=== PATIENT | male | born 1940 | race Caucasian/White ===

== ENCOUNTER 2017-01-21 06:59 | Emergency (ER) | payer MEDICARE, OTHER, BC ==
[~2017-01-21] VITALS: Ht 182.9 cm; Wt 83.2 kg
[~2017-01-21 06:59] MED LIST: ALLERGY PILL; ATOR20TA PO; HYDR-3533 PO; NADO20TA PO; PILO5TAB PO; TRAZ50TA4 PO
[2017-01-21 07:08] VITALS: BP 128/92; PULSE 64; RESP 16; TEMP 97.4; O2SAT 98
[2017-01-21] MEDS ORDERED: LIDOCAINE 1%/EPINEPHrine 1:100,000 SOLN 20 ML VIAL INFIL ONE (07:15)
[2017-01-21] MEDS ORDERED: ATOR20TA15 PO (07:26)
[2017-01-21] MEDS ORDERED: LORA5TAB16 PO (07:26)
[2017-01-21] MEDS ORDERED: BLOOD THINNER PO (07:26)
[2017-01-21] MEDS ORDERED: NADO20TA PO (07:26)
[2017-01-21] MEDS ORDERED: TRAZ1TAB45 PO (07:26)
--- NOTE | 2017-01-21 07:28 | PD ---
HPI Chief Complaint: Laceration/Skin Injury Time Seen by Provider: 07:13 Travel History International Travel<30 days: No Contact w/Intl Traveler<30days: No Traveled to known affect area: No History of Present Illness HPI The patient is a 76-year-old male who presents emergency department for laceration to the left elbow. The patient fell earlier this morning in the kitchen, striking his left elbow on a case of water. The patient states he received a laceration against one of water bottles. Laceration bled initially but is currently stopped. He denies any difficulty with movement of the left upper extremity. He denies any other injuries including head trauma, neck pain , chest wall pain, or abdominal pain. The patient is right-hand dominant. The patient's last tetanus shot was administered at the [facility] several months ago according to the patient. The patient denies any other complaints. The patient denies any weakness, numbness, or tingling of the left upper extremity. Symptoms are mild, exacerbated after falling against water bottles, and alleviated after applying pressure. PFSH Past Medical History Hx Anticoagulant Therapy: Yes Arthritis: No Heart Rhythm Problems: No Cancer: Yes (bladder ca) Cardiovascular Problems: Yes (Arrhythmia ) High Cholesterol: Yes Chemotherapy: Yes Chest Pain: No Congestive Heart Failure: No Diminished Hearing: No Endocrine: No Gastrointestinal Disorders: No Genitourinary: Yes (bladder cancer) Hypertension: No Immune Disorder: No Implanted Vascular Access Dvce: Yes Neurologic: No Psychiatric: No Respiratory: No Radiation Therapy: Yes (46 treatments) Seizures: No Tetanus Vaccination: < 5 Years Influenza Vaccination: Yes Past Surgical History Abdominal Surgery: No Cardiac Surgery: No Ear Surgery: No Endocrine Surgery: Yes (Parotid Mass) Eye Surgery: No Genitourinary Surgery: Yes (bbladder cancer) Gynecologic Surgery: No Neurologic Surgery: No Oral Surgery: No Thoracic Surgery: No Other Surgery: Yes Social History Alcohol Use: Yes (BEER DAILY) Tobacco Use: No Substance Use: No Allergies-Medications (Allergen,Severity, Reaction): Coded Allergies: Crab (Verified Allergy, Intermediate, Rash, 01/21/17) Blue Shell crab causes severe rash all over face and neck. Needs PCN to help clear it up. Patient CAN eat Shrimp and clams, scallops, oysters without problems. Reported Meds & Prescriptions Reported Meds & Active Scripts Active Reported Pilocarpine 5 Mg Tab 5 Mg PO DAILY Warfarin 1 Mg Tab 1 Mg PO DAILY Hm Loratadine (Loratadine) 10 Mg Tab 1 Tab PO DAILY Trazodone HCl 150 Mg Tablet 50 Mg PO HS Nadolol 20 Mg Tab 20 Mg PO DAILY Atorvastatin (Atorvastatin Calcium) 20 Mg Tab 20 Mg PO HS Review of Systems Except as stated in HPI: all other systems reviewed are Neg HENT: No: Headaches, Neck Pain Cardiovascular: No: Chest Pain or Discomfort Respiratory: No: Shortness of Breath Gastrointestinal: No: Abdominal Pain Musculoskeletal: No: Limited ROM, Weakness, Pain Skin: Positive Other (as noted in the history of present illness) Neurologic: No: Paresthesia, Sensory Disturbance Physical Exam Narrative GENERAL: Awake, alert, very pleasant 76-year-old male who appears his stated age and is in no acute respiratory distress. SKIN: Focused skin assessment warm/dry. 7 cm laceration in a semicircular fashion of the extensor surface left elbow with soft tissue involvement, but no muscle involvement or joint involvement. HEAD: Atraumatic. Normocephalic. EYES: No injection or drainage. ENT: No nasal bleeding or discharge. Mucous membranes pink and moist. NECK: Trachea midline. No JVD. MUSCULOSKELETAL: 7 cm semicircular laceration of the extensor surface the left elbow. No visible joint involvement. Patient has able to fully flex and extend left elbow, supinate and pronate left forearm, and flex extend left elbow. Positive left radial pulse. NEUROLOGICAL: Awake and alert. No obvious cranial nerve deficits. Motor grossly within normal limits. Normal speech. Sensation is intact in the median , radial, and ulnar distribution of the left upper extremity. PSYCHIATRIC: Appropriate mood and affect; insight and judgment normal. Data Data Last Documented VS Vital Signs Date Time Temp Pulse Resp B/P Pulse Ox O2 Delivery O2 Flow Rate FiO2 01/21/17 07:08 97.4 64 16 128/92 98 Orders Lidocai-Epi 1%-1:100,000 Inj (Xylocaine- (01/21/17 07:15) MDM Medical Decision Making Medical Screen Exam Complete: Yes Emergency Medical Condition: Yes Medical Record Reviewed: Yes Differential Diagnosis Differential diagnosis includes laceration, hematoma, contusion, skin tear, fracture, tendon laceration, vascular injury, nerve injury. Narrative Course The patient's physical examination reveals a laceration with no visible neurovascular injury. The patient is able fully flex and extend the left elbow as well as supinate and pronate the left forearm. The patient's tetanus shot is up-to-date according to the patient. The laceration was draped and prepped in a normal sterile fashion, anesthetized 1% lidocaine with epinephrine using a 27-gauge needle, irrigated with sterile saline, and closed in single layer fashion. The patient is advised that the sutures removed in 10-14 days and monitor for signs of infection. Procedures Procedure Narrative LACERATION LOCATION: Left elbow LENGTH: 7 cm NUMBER OF STITCHES/POLY: 10 REPAIR: The area of the laceration was prepped with Betadine and sterilely draped. The laceration was infiltrated with 1% lidocaine with epinephrine. The wound was copiously irrigated and explored without evidence of foreign body , tendon injury or neurovascular injury. The wound was closed using 4-0 nylon. This was a single layer repair. A sterile dressing was applied. The patient was advised to keep the dressing clean and dry. Patient tolerated the procedure well. Diagnosis Primary Impression: Laceration of left elbow Qualified Code: S51.012A - Laceration of left elbow, initial encounter Patient Instructions: General Instructions Additional Instructions: Wound care instructions. Suture removal in 10-14 days. Polysporin twice a day. Monitor for signs of infection. Return if symptoms worsen or progress. Med/Other Pt SpecificInfo: No Change to Meds Disposition: 01 DISCHARGE HOME Condition: Stable Say Mcnamara MD January 21, 2017 07:28 Say Mcnamara MD January 21, 2017 07:28
[2017-01-21] MEDS ORDERED: PILO5TAB3 PO (07:29)
[2017-01-21] MEDS ORDERED: WARF4TAB52 PO (07:29)
== END 2017-01-21 07:58 | disposition home or self-care (01) ==
LOC: EEVIPCON 06:59 → PHED 06:59
DX: S51.012A Laceration without foreign body of left elbow, initial encounter (principal); E78.00 Pure hypercholesterolemia, unspecified; Z79.01 Long term (current) use of anticoagulants; Z79.899 Other long term (current) drug therapy; Z85.51 Personal history of malignant neoplasm of bladder; W18.00XA Striking against unspecified object with subsequent fall, initial encounter
CPT/HCPCS: 12002

== ENCOUNTER 2017-02-04 06:38 | Emergency (ER) | payer MEDICARE, OTHER ==
[~2017-02-04] VITALS: Ht 182.9 cm; Wt 82.6 kg
[~2017-02-04 06:38] MED LIST changes: -ALLERGY PILL; -ATOR20TA PO; +ATOR20TA15 PO; -HYDR-3533 PO; +LORA5TAB16 PO; -PILO5TAB PO; +PILO5TAB3 PO; +TRAZ1TAB45 PO; -TRAZ50TA4 PO; +WARF4TAB52 PO
[2017-02-04 06:46] VITALS: BP 115/81; PULSE 65; RESP 14; TEMP 97.5; O2SAT 96
[2017-02-04] MEDS ORDERED: CEPH-460 PO (07:00)
--- NOTE | 2017-02-04 07:00 | PD ---
HPI Chief Complaint: Wound/Suture/Staple Re-Check Time Seen by Provider: 06:56 Travel History International Travel<30 days: No Contact w/Intl Traveler<30days: No Traveled to known affect area: No History of Present Illness HPI Patient is a 76-year-old male who comes in to have his stitches removed. He was here January 21 and had stitches placed in his left elbow after he fell and hit his elbow into a water bottle. He has had no issues he says since the injury. He denies any pain to the area. He denies any fever or chills. He has not noticed leakage of fluids from the area. PFSH Past Medical History Hx Anticoagulant Therapy: Yes Arthritis: No Heart Rhythm Problems: No Cancer: Yes (bladder ca) Cardiovascular Problems: Yes (Arrhythmia ) High Cholesterol: Yes Chemotherapy: Yes Chest Pain: No Congestive Heart Failure: No Diminished Hearing: No Endocrine: No Gastrointestinal Disorders: No Genitourinary: Yes (bladder cancer) Hypertension: No Immune Disorder: No Implanted Vascular Access Dvce: Yes Neurologic: No Psychiatric: No Respiratory: No Radiation Therapy: Yes (46 treatments) Seizures: No Past Surgical History Abdominal Surgery: No Cardiac Surgery: No Ear Surgery: No Endocrine Surgery: Yes (Parotid Mass) Eye Surgery: No Genitourinary Surgery: Yes (bbladder cancer) Gynecologic Surgery: No Neurologic Surgery: No Oral Surgery: No Thoracic Surgery: No Other Surgery: Yes Social History Alcohol Use: Yes (BEER DAILY) Tobacco Use: No Substance Use: No Allergies-Medications (Allergen,Severity, Reaction): Coded Allergies: Crab (Verified Allergy, Intermediate, Rash, 01/21/17) Blue Shell crab causes severe rash all over face and neck. Needs PCN to help clear it up. Patient CAN eat Shrimp and clams, scallops, oysters without problems. Reported Meds & Prescriptions Reported Meds & Active Scripts Active Reported Pilocarpine 5 Mg Tab 5 Mg PO DAILY Warfarin 1 Mg Tab 1 Mg PO DAILY Hm Loratadine (Loratadine) 10 Mg Tab 1 Tab PO DAILY Trazodone HCl 150 Mg Tablet 50 Mg PO HS Nadolol 20 Mg Tab 20 Mg PO DAILY Atorvastatin (Atorvastatin Calcium) 20 Mg Tab 20 Mg PO HS Review of Systems General / Constitutional: No: Fever, Chills HENT: No: Headaches Cardiovascular: No: Chest Pain or Discomfort Respiratory: No: Shortness of Breath Gastrointestinal: No: Nausea, Vomiting Musculoskeletal: No: Edema, Pain Skin: No Rash, No Change in Pigmentation Neurologic: No: Weakness, Dizziness Physical Exam Narrative GENERAL: Awake and alert, in no acute distress. SKIN: Focused skin assessment warm/dry. Wound to the lateral side of the left elbow is slightly erythematous. Sutures are in place. There is some yellow drainage. There is no fluctuance. Wound is closed. HEAD: Atraumatic. Normocephalic. EYES: Pupils equal and round. No scleral icterus. No injection or drainage. ENT: No nasal bleeding or discharge. Mucous membranes pink and moist. CARDIOVASCULAR: Regular rate and rhythm. No murmur appreciated. RESPIRATORY: No accessory muscle use. Clear to auscultation. Breath sounds equal bilaterally. MUSCULOSKELETAL: No obvious deformities. No clubbing. No cyanosis. No edema. No pain on palpation of the left elbow. No pain with movement of the left elbow. NEUROLOGICAL: Awake and alert. No obvious cranial nerve deficits. Motor grossly within normal limits. Normal speech. Data Data Last Documented VS Vital Signs Date Time Temp Pulse Resp B/P Pulse Ox O2 Delivery O2 Flow Rate FiO2 02/04/17 06:46 97.5 65 14 115/81 96 MDM Medical Decision Making Medical Screen Exam Complete: Yes Emergency Medical Condition: Yes Medical Record Reviewed: Yes Differential Diagnosis Suture removal versus cellulitis versus abscess Narrative Course Patient is a 76-year-old male who comes in to have his sutures removed. Exam shows some erythema around the wound with some yellow drainage. There is no tenderness to palpation of the elbow, and no pain with movement of the elbow. Sutures removed without incident. Triple antibiotic ointment and clean and bandage applied to the wound. Patient given prescription for Keflex. Advised to clean the wound daily with soap and water. Advised to keep it bandaged for the next few days. Advised follow-up with his primary care doctor. Advised to return to the ED as needed for any worsening symptoms. Diagnosis Primary Impression: Visit for suture removal Additional Impression: Cellulitis Qualified Code: L03.114 - Cellulitis of left upper extremity Patient Instructions: Cellulitis (ED), General Instructions Additional Instructions: Keep your wound clean and dry. Wash it daily with soap and water. Apply triple antibiotic ointment to the wound and keep it bandaged. Take all of your antibiotics. Follow up with your doctor. Return to the ED as needed for any worsening symptoms. Scripts Cephalexin (Keflex)500 Mg Oru173 Mg PO Q6H 7 Days Ref 0 Prov:Kelly Roy MD 02/04/17 Disposition: 01 DISCHARGE HOME Condition: Stable Kelly Roy MD Feb 04, 2017 07:00
== END 2017-02-04 07:15 | disposition home or self-care (01) ==
LOC: PHED 06:38
DX: Z48.02 Encounter for removal of sutures (principal); L03.114 Cellulitis of left upper limb; E78.00 Pure hypercholesterolemia, unspecified
CPT/HCPCS: 99283

== ENCOUNTER 2017-08-16 12:08 | Inpatient (IN) | payer MEDICARE, BC ==
[~2017-08-16] VITALS: Ht 180.3 cm; Wt 72.9 kg
[2017-08-16] VITALS (16 sets, daily range): BP systolic 73–133; BP diastolic 53–78; PULSE 72–88; RESP 11–28; TEMP 97.2–97.6; O2SAT 90–99
[~2017-08-16 12:08] MED LIST changes: +CEPH-460 PO; +LORA10TA7 PO; -LORA5TAB16 PO; +TRAZ1TAB14 PO; -TRAZ1TAB45 PO; +VANCOMYCIN 1,000 MG/NS 250 ML IV ONE
[2017-08-16] MEDS ORDERED: SODIUM CHLORID 0.9% 500 ML INJ 500 ML IV ONE ×2 (12:15→17:30)
--- NOTE | 2017-08-16 12:17 | PD ---
HPI Chief Complaint: fall Time Seen by Provider: 12:10 Travel History International Travel<30 days: No Contact w/Intl Traveler<30days: No History of Present Illness HPI 77-year-old male fell out of his chair and could not get up. His neighbor checked on him today after he had 2 days worth of newspapers in his driveway. When the neighbor found him she called the ambulance. The patient states he was weak and could not get up. He lives at home by himself. He denies any pain or other symptoms other than generalized weakness. History is limited from patient and supplemented by the ambulance team [facility] Past Medical History Narrative Medical By records Hx Anticoagulant Therapy: Yes Arthritis: No Heart Rhythm Problems: No Cancer: Yes (bladder ca) Cardiovascular Problems: Yes (Arrhythmia ) High Cholesterol: Yes Chemotherapy: Yes Chest Pain: No Congestive Heart Failure: No Diminished Hearing: No Endocrine: No Gastrointestinal Disorders: No Genitourinary: Yes (bladder cancer) Hypertension: No Immune Disorder: No Implanted Vascular Access Dvce: Yes Neurologic: No Psychiatric: No Respiratory: No Radiation Therapy: Yes (46 treatments) Seizures: No Past Surgical History Narrative Surgical By records Abdominal Surgery: No Cardiac Surgery: No Ear Surgery: No Endocrine Surgery: Yes (Parotid Mass) Eye Surgery: No Genitourinary Surgery: Yes (bbladder cancer) Gynecologic Surgery: No Neurologic Surgery: No Oral Surgery: No Thoracic Surgery: No Other Surgery: Yes Social History Alcohol Use: Yes (BEER DAILY) Tobacco Use: No Substance Use: No Allergies-Medications (Allergen,Severity, Reaction): Coded Allergies: crab (Unverified Allergy, Intermediate, Rash, 08/16/17) Blue Shell crab causes severe rash all over face and neck. Needs PCN to help clear it up. Patient CAN eat Shrimp and clams, scallops, oysters without problems. Reported Meds & Prescriptions Reported Meds & Active Scripts Active Reported Warfarin 3 Mg Tab 3 Mg PO DAILY Pilocarpine 5 Mg Tab 5 Mg PO DAILY Hm Loratadine (Loratadine) 10 Mg Tab 1 Tab PO DAILY Trazodone (Trazodone HCl) 150 Mg Tablet 50 Mg PO HS Nadolol 20 Mg Tab 20 Mg PO DAILY Atorvastatin (Atorvastatin Calcium) 20 Mg Tab 20 Mg PO HS Review of Systems ROS Limitations: Poor Historian Except as stated in HPI: all other systems reviewed are Neg Physical Exam Exam Limitations: Poor Historian Narrative GENERAL: Well-nourished, well-developed patient. SKIN: Warm and dry. HEAD: Normocephalic and atraumatic. EYES: No injection or drainage. ENT: No nasal drainage noted. Dry mucous membranes NECK: Supple, trachea midline. CARDIOVASCULAR:irregular rate and rhythm RESPIRATORY: Breath sounds equal bilaterally at apices. No accessory muscle use. GASTROINTESTINAL: Abdomen soft, non-tender, nondistended. BACK: Nontender without obvious deformity. NEUROLOGICAL: Awake. Generalized weakness throughout all 4 extremities without focal motor deficit. Normal speech. Data Data Last Documented VS Vital Signs Date Time Temp Pulse Resp B/P (MAP) Pulse Ox O2 Delivery O2 Flow Rate FiO2 08/16/17 13:35 16 96 Room Air 08/16/17 13:35 86 08/16/17 13:30 21 08/16/17 12:13 103/78 (86) Orders Orders Magnesium (Mg) (08/16/17 12:10) Phosphorus (Po4) (08/16/17 12:10) Complete Blood Count With Diff (08/16/17 12:10) Comprehensive Metabolic Panel (08/16/17 12:10) Creatine Kinase (Cpk) (08/16/17 12:10) Ckmb (Isoenzyme) Profile (08/16/17 12:10) Troponin I (08/16/17 12:10) Urinalysis - C+S If Indicated (08/16/17 12:10) Act Partial Throm Time (Ptt) (08/16/17 12:10) Prothrombin Time / Inr (Pt) (08/16/17 12:10) Ct Brain W/O Iv Contrast(Rout) (08/16/17 ) Chest, Single Ap (08/16/17 ) Electrocardiogram (08/16/17 ) Iv Access Insert/Monitor (08/16/17 12:10) Ecg Monitoring (08/16/17 12:10) Oximetry (08/16/17 12:10) Pelvis, Ap Only (Routine) (08/16/17 ) Sodium Chlorid 0.9% 500 Ml Inj (Ns 500 M (08/16/17 12:15) Resp Lab Draw Arterial Punctur (08/16/17 ) CKMB (08/16/17 13:26) CKMB% (08/16/17 13:26) Resp Lab Draw Arterial Punctur (08/16/17 13:15) Sodium Chlor 0.9% 1000 Ml Inj (Ns 1000 M (08/16/17 14:15) Phytonadione Inj (Vitamin K Inj) (08/16/17 14:30) Blood Culture (08/16/17 14:26) Lactic Acid (08/16/17 14:26) Piperacil-Tazo 4.5 Gm Premix (Zosyn 4.5 (08/16/17 14:26) Admit Order (Ed Use Only) (08/16/17 14:28) Labs Laboratory Tests Test 08/16/17 13:26 White Blood Count 25.4 TH/MM3 Red Blood Count 3.63 MIL/MM3 Hemoglobin 10.9 GM/DL Hematocrit 32.4 % Mean Corpuscular Volume 89.3 FL Mean Corpuscular Hemoglobin 29.9 PG Mean Corpuscular Hemoglobin Concent 33.5 % Red Cell Distribution Width 14.3 % Platelet Count 183 TH/MM3 Mean Platelet Volume 8.8 FL Neutrophils (%) (Auto) 93.6 % Lymphocytes (%) (Auto) 2.5 % Monocytes (%) (Auto) 2.8 % Eosinophils (%) (Auto) 1.0 % Basophils (%) (Auto) 0.1 % Neutrophils # (Auto) 23.8 TH/MM3 Lymphocytes # (Auto) 0.6 TH/MM3 Monocytes # (Auto) 0.7 TH/MM3 Eosinophils # (Auto) 0.3 TH/MM3 Basophils # (Auto) 0.0 TH/MM3 CBC Comment DIFF FINAL Differential Comment Prothrombin Time GREATER THAN 180.0 SEC Prothromb Time International Ratio GREATER THAN 14.5 RATIO Activated Partial Thromboplast Time 89.6 SEC Blood Urea Nitrogen 149 MG/DL Creatinine 6.30 MG/DL Random Glucose 86 MG/DL Total Protein 7.0 GM/DL Albumin 2.1 GM/DL Calcium Level 8.8 MG/DL Phosphorus Level 4.2 MG/DL Magnesium Level 2.4 MG/DL Alkaline Phosphatase 139 U/L Aspartate Amino Transf (AST/SGOT) 68 U/L Alanine Aminotransferase (ALT/SGPT) 70 U/L Total Bilirubin 0.9 MG/DL Sodium Level 144 MEQ/L Potassium Level 4.7 MEQ/L Chloride Level 113 MEQ/L Carbon Dioxide Level 14.0 MEQ/L Anion Gap 17 MEQ/L Estimat Glomerular Filtration Rate 9 ML/MIN Total Creatine Kinase 281 U/L Creatine Kinase MB 5.3 NG/ML Troponin I 0.07 NG/ML [facility] Medical Decision Making Medical Screen Exam Complete: Yes Emergency Medical Condition: Yes Medical Record Reviewed: Yes (past history confirmed) Interpretation(s) CBC & BMP Diagram 08/16/17 13:26 Total Protein 7.0, Albumin 2.1 L, Calcium Level 8.8, Phosphorus Level 4.2, Magnesium Level 2.4, Alkaline Phosphatase 139 H, Aspartate Amino Transf (AST/ SGOT) 68 H, Alanine Aminotransferase (ALT/SGPT) 70, Total Bilirubin 0.9 Last 24 hours Impressions Pelvis X-Ray 08/16/17 0000 Signed Impressions: Service Date/Time: Wednesday, August 16, 2017 13:15 - CONCLUSION: No acute abnormality. Juan aPblo Coleman Jr., MD Head CT 08/16/17 0000 Signed Impressions: Service Date/Time: Wednesday, August 16, 2017 12:18 - CONCLUSION: 1. No acute intracranial abnormality. 2. 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 3. Atrophy and chronic lacunar infarctions. Juan Pablo Coleman Jr., MD Chest X-Ray 08/16/17 0000 Signed Impressions: Service Date/Time: Wednesday, August 16, 2017 13:15 - CONCLUSION: 1. Vague area of nodularity projecting over the first rib on the left. A new finding from the prior study. I cannot exclude a parenchymal nodule. Consider a followup outpatient CT of the thorax. 2. Otherwise, no acute cardiopulmonary disease. Juan Pablo Coleman Jr., MD Differential Diagnosis Rhabdomyolysis, UTI, renal failure, intercranial bleed.... Narrative Course Will check blood work, urinalysis, trauma imaging and dose with IV fluids and follow Workup reveals leukocytosis, supratherapeutic INR, acute renal failure with depressed bicarbonate and normal potassium. He also has a very mild troponin which is likely related to his acute renal failure. He has no chest pain currently. Given this and his supratherapeutic INR aspirin is not indicated. For leukocytosis patient will be given broad-spectrum coverage while awaiting results and lactate and blood culture will be added on. For acute renal failure this was discussed with nephrology and he was given IV fluid hydration as this is likely related to dehydration. Bicarbonate will be added to his fluids. For supratherapeutic INR patient has no active bleeding. At this time he'll be given vitamin K and his Coumadin will be held Patient updated, vitals are improving. He agrees to admission, denies new complaints Critical Care Narrative Aggregate critical care time was 35 minutes. Time to perform other separately billable procedures was not included in the critical care time. My time did not include minutes spent treating any other patients simultaneously or on activities that did not directly contribute to the patient's treatment. The services I provided to this patient were to treat and/or prevent clinically significant deterioration that could result in: Septic shock, bleeding, I provided critical care services requiring my management, as noted below: Chart data review, documentation time, medication orders and management, vital sign assessments/reviewing monitor data, ordering and reviewing lab tests, ordering and interpreting/reviewing x-rays and diagnostic studies, care of the patient and discussion of the patient with the admitting physicians. Physician Communication Physician Communication dr nolen agrees to admit dr lyle states to place patient on 08/30 ns with 75meq of bicarb for ivf, only consult if doesn't improve dr nolen updated about orders adjusted Diagnosis Primary Impression: Acute renal failure Qualified Codes: N17.9 - Acute kidney failure, unspecified Additional Impressions: Leukocytosis Qualified Codes: D72.829 - Elevated white blood cell count, unspecified Supratherapeutic INR Admitting Information Admitting Physician Requests: Admit Casandra Alvarado MD Aug 16, 2017 12:17
[2017-08-16] MEDS ORDERED: WARF-58 PO (12:25)
--- NOTE | 2017-08-16 12:44 | RADRPT ---
EXAM DATE/TIME: 08/16/2017 12:18 [facility] COMPARISON: CT BRAIN W/O CONTRAST, August 21, 2012, 6:00. INDICATIONS : Chair broke while patient was sitting in it two days ago and he was found today still in it. RADIATION DOSE: 55.06 CTDIvol (mGy) MEDICAL HISTORY : Bladder cancer. Anticoagulant therapy. SURGICAL HISTORY : None. ENCOUNTER: Initial ACUITY: 2 days PAIN SCALE: 4/10 LOCATION: cranial TECHNIQUE: Multiple contiguous axial images were obtained of the head. Using automated exposure control and adj ustment of the mA and/or kV according to patient size, radiation dose was kept as low as reasonably a chievable to obtain optimal diagnostic quality images. DICOM format image data is available electro nically for review and comparison. FINDINGS: CEREBRUM: A small area of encephalomalacia involving the posterior watershed region on the right. Atrophy. Smal l chronic lacunar infarctions involving the thalami bilaterally. The ventricles are normal for age. No evidence of midline shift, mass lesion, hemorrhage or acute infarction. No extra-axial fluid dodie ections are seen. POSTERIOR FOSSA: The cerebellum and brainstem are intact. The 4th ventricle is midline. The cerebellopontine angle i s unremarkable. EXTRACRANIAL: The visualized portion of the orbits is intact. SKULL: The calvaria is intact. No evidence of skull fracture. CONCLUSION: 1. No acute intracranial abnormality. 2. 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 3. Atrophy and chronic lacunar infarctions. Juan Pablo Coleman Jr., MD on August 16, 2017 at 12:40 Board Certified Radiologist. This report was verified electronically.
[2017-08-16 13:30] LABS: AUTOMATED NEUTROPHIL # 23.8 TH/MM3 (1.8-7.7); BASOPHIL % 0.1 % (0.0-2.0); EOSINOPHIL # 0.3 TH/MM3 (0-0.4); HEMATOCRIT 32.4 % (39.0-51.0); HEMOGLOBIN 10.9 GM/DL (13.0-17.0); LYMPH % 2.5 % (9.0-44.0); LYMPHOCYTE # 0.6 TH/MM3 (1.0-4.8); MEAN CELL VOLUME 89.3 FL (80.0-100.0); MEAN CORPUSCULAR HEMOGLOBIN 29.9 PG (27.0-34.0); MEAN CORPUSCULAR HGB CONC 33.5 % (32.0-36.0); MEAN PLATELET VOLUME 8.8 FL (7.0-11.0); MONO % 2.8 % (0.0-8.0); MONOCYTE # 0.7 TH/MM3 (0-0.9); NEUT % 93.6 % (16.0-70.0); PLATELET COUNT 183 TH/MM3 (150-450); RED BLOOD COUNT 3.63 MIL/MM3 (4.50-5.90); RED CELL DISTRIBUTION WIDTH 14.3 % (11.6-17.2); WHITE BLOOD COUNT 25.4 TH/MM3 (4.0-11.0)
--- NOTE | 2017-08-16 13:45 | RADRPT ---
EXAM DATE/TIME: 08/16/2017 13:15 [facility] COMPARISON: CHEST SINGLE AP, December 20, 2014, 8:36. INDICATIONS : Evaluate lung status. Patient fell 2 days ago. MEDICAL HISTORY : Bladder cancer. Anticoagulant therapy. SURGICAL HISTORY : None. ENCOUNTER: Initial ACUITY: 2 days PAIN SCORE: 2/10 LOCATION: Bilateral chest FINDINGS: A single portable chest shows the heart to be at the upper limits of normal in terms of size. The aor ta is somewhat tortuous. There is a vague nodular density projecting over the anterior portion of the first rib. His is a new finding from the prior study. Remaining lungs are clear. No effusions. Degen erative spine noted. CONCLUSION: 1. Vague area of nodularity projecting over the first rib on the left. A new finding from the prior s tudy. I cannot exclude a parenchymal nodule. Consider a followup outpatient CT of the thorax. 2. Otherwise, no acute cardiopulmonary disease. Juan Pablo Coleman Jr., MD on August 16, 2017 at 13:39 Board Certified Radiologist. This report was verified electronically.
[2017-08-16 13:53] LABS: CHLORIDE 113 MEQ/L (98-107); SODIUM (NA) 144 MEQ/L (136-145)
[2017-08-16 13:56] LABS: CALCIUM 8.8 MG/DL (8.5-10.1)
[2017-08-16 13:57] LABS: ALBUMIN 2.1 GM/DL (3.4-5.0); BLOOD UREA NITROGEN 149 MG/DL (7-18); GLUCOSE,RANDOM 86 MG/DL (74-106); MAGNESIUM 2.4 MG/DL (1.5-2.5)
--- NOTE | 2017-08-16 13:59 | EKG ---
Date Performed: 08/16/2017 Time Performed: 12:51:32 PTAGE: 77 years EKG: ATRIAL FIBRILLATION ABNORMAL RHYTHM ECG Compared to prior electrocardiogram, atrial fibrill ation is now present PREVIOUS TRACING : 12/20/2014 08.15 DOCTOR: Luis Carlos Ervin Interpretating Date/Time 08/16/2017 13:58:00
[2017-08-16 14:00] LABS: ALT (GPT) 70 U/L (12-78); AST (GOT) 68 U/L (15-37); GLOMERULAR FILTRATION RATE 9 ML/MIN (>89); PHOSPHORUS 4.2 MG/DL (2.5-4.9)
[2017-08-16 14:01] LABS: TOTAL BILIRUBIN ADULT 0.9 MG/DL (0.2-1.0)
[2017-08-16 14:03] LABS: ALKALINE PHOSPHATASE 139 U/L (45-117)
[2017-08-16 14:05] LABS: TROPONIN I 0.07 NG/ML (0.02-0.05)
--- NOTE | 2017-08-16 14:06 | RADRPT ---
EXAM DATE/TIME: 08/16/2017 13:15 [place] COMPARISON: No previous studies available for comparison. INDICATIONS : Pelvic pain. Patient fell 2 days ago. MEDICAL HISTORY : Bladder cancer. Anticoagulant therapy. SURGICAL HISTORY : None. ENCOUNTER: Initial ACUITY: 2 days PAIN SCORE: 3/10 LOCATION: Pelvis. FINDINGS: 2 frontal views view of the pelvis demonstrate no evidence of fracture. The bony pelvic ring is inta ct. Bony mineralization is normal. The soft tissues are intact. Multiple surgical clips throughout the pelvis. CONCLUSION: No acute abnormality. Juan Pablo Coleman Jr., MD on August 16, 2017 at 14:03 Board Certified Radiologist. This report was verified electronically.
[2017-08-16 14:10] LABS: INTERNATIONAL NORMALIZED RATIO GREATER THAN 14.5 RATIO; PROTHROMBIN TIME - PATIENT GREATER THAN 180.0 SEC (9.8-11.6)
[2017-08-16] MEDS ORDERED: SODIUM CHLOR 0.9% 1000 ML INJ 1,000 ML IV ONE (14:15)
[2017-08-16] MEDS ORDERED: PIPERACIL-TAZO 4.5 GM PREMIX 100 ML IV STA (14:26)
[2017-08-16] MEDS ORDERED: SENNOSIDES 8.6 MG TAB PO PRN (14:30)
[2017-08-16] MEDS ORDERED: HEPARIN SODIUM - SQ 10,000 UNITS/ML VIAL SQ SCH (14:30)
[2017-08-16] MEDS ORDERED: NALOXONE HCL 0.4 MG/ML AMP IV PUSH PRN (14:30)
[2017-08-16] MEDS ORDERED: PHYTONADIONE INJ 10 MG in SODIUM CHLORIDE 0.9% INJ 50 ML IV ONE ×2 (14:30→22:45)
[2017-08-16] MEDS ORDERED: SODIUM CHLORIDE 0.9% FLUSH 10 ML FLUSH IV FLUSH PRN (14:30)
[2017-08-16] MEDS ORDERED: ACETAMINOPHEN 325 MG TAB PO PRN (14:30)
[2017-08-16] MEDS ORDERED: LACTULOSE SYRUP 20 GM/30 ML CUP PO PRN (14:30)
[2017-08-16] MEDS ORDERED: MAGNESIUM HYDROXIDE SUSP 30 ML CUP PO PRN (14:30)
[2017-08-16] MEDS ORDERED: BISACODYL 10 MG SUPP RECTAL PRN (14:30)
[2017-08-16] MEDS ORDERED: ONDANSETRON HCL 4 MG/2 ML VIAL IVP PRN (14:30)
[2017-08-16] MEDS ORDERED: SODIUM BICARBONATE 8.4% INJ 75 MEQ in SODIUM CHLOR 0.45% 1000 ML INJ 1,000 ML IV SCH (15:30)
[2017-08-16] MEDS ORDERED: PHYTONADIONE 5 MG TAB PO ONE (15:30)
[2017-08-16] MEDS: SODIUM BICARBONATE 8.4% INJ 75 MEQ in SODIUM CHLOR 0.9% 1000 ML INJ 1,000 ML IV SCH (16:10)
[2017-08-16 17:46] LABS: BLOOD, URINE LARGE (NEG); GLUCOSE,URINE NEG (NEG); KETONE, URINE NEG (NEG); NITRITE,URINE NEG (NEG); PH, URINE 8.5 (5.0-8.5); URINE LEUKOCYTE ESTERASE LARGE (NEG)
--- NOTE | 2017-08-16 17:48 | HHI.HP ---
[facility] Admission Diagnosis acute renal failure, leukocytosis, supratherapeutic INR Diagnoses: (1) Acute renal failure superimposed on stage 4 chronic kidney disease Diagnosis: Principal (2) Metabolic acidosis Diagnosis: Principal (3) Leukocytosis Diagnosis: Principal (4) Supratherapeutic INR Diagnosis: Principal (5) Fall at home Diagnosis: Principal (6) Generalized weakness Diagnosis: Principal Travel History International Travel<30 Days: No Contact w/Intl Traveler <30 Da: No Traveled to Known Affected Are: No Sepsis Criteria SIRS Criteria (2 or more): WBC > 65481, < 4000 or > 10% bands History of Present Illness 77 year-old male with known history of atrial fibrillation, hyperlipidemia, history of liver cancer, history of parotid cancer who presented to hospital by [facility] because of fall at home. According to the patient patient tipped over in his chair at home 2 days ago and had severe weakness where he could not get himself up. He was unable to get to the phone in order to call anyone for help people he was likely that a neighbor came by after approximately 2 days in found him laying on the floor. [facility] was called and the patient was brought to the ER for evaluation. At that time patient was found to have severe dehydration. Acute renal failure, Possible underlying rhabdomyolysis. Patient was given IV fluids with clinical improvement per nursing staff. Patient does go to Dr. Gaona on a regular basis. Case was discussed with him and patient will be admitted for further evaluation and management. Review of Systems Neurologic: COMPLAINS OF: Abnormal gait, Poor Balance Except as stated in HPI: all other systems reviewed are Neg Past Family Social History Past Medical History Atrial fibrillation Hyperlipidemia Chronic kidney disease stage IV History of bladder cancer History of parotid gland cancer Past Surgical History Ileostomy Parotid surgery Reported Medications Reported Meds & Active Scripts Active Reported Warfarin 3 Mg Tab 3 Mg PO DAILY Pilocarpine 5 Mg Tab 5 Mg PO DAILY Hm Loratadine (Loratadine) 10 Mg Tab 1 Tab PO DAILY Trazodone (Trazodone HCl) 150 Mg Tablet 50 Mg PO HS Nadolol 20 Mg Tab 20 Mg PO DAILY Atorvastatin (Atorvastatin Calcium) 20 Mg Tab 20 Mg PO HS Allergies: Coded Allergies: crab (Unverified Allergy, Intermediate, Rash, 08/16/17) Blue Shell crab causes severe rash all over face and neck. Needs PCN to help clear it up. Patient CAN eat Shrimp and clams, scallops, oysters without problems. Family History Reviewed is significant for father having heart disease Social History Patient quit smoking 20 years ago, prior to that he smoked one pack a severe sedation she was 18 years old. Patient has have history of alcohol use of 8-9 cans of beer daily, however he states that he has not been drinking any alcohol recently. No indication of a illicit drug use Physical Exam Vital Signs Vital Signs Date Time Temp Pulse Resp B/P (MAP) Pulse Ox O2 Delivery O2 Flow Rate FiO2 08/16/17 16:27 73 16 98/59 (72) 97 Room Air 08/16/17 15:31 85 16 133/77 (95) 97 Room Air 08/16/17 14:43 83 16 118/63 (81) 98 Room Air 08/16/17 13:52 88 16 122/60 (80) 99 Room Air 08/16/17 13:35 16 96 Room Air 08/16/17 13:35 86 16 96 Room Air 08/16/17 13:30 96 21 08/16/17 12:13 84 18 103/78 (86) 97 Physical Exam GENERAL: Well-developed, well-nourished, in no acute distress. alert and orientated HEENT: Head is normocephalic without any lesions or masses noted. Facial features are symmetric. Eyes: Pupils equal round reactive to light. Extraocular muscles are intact. Conjunctivae were clear. Oropharyngeal: Pharynx without any erythema edema. Tongue is midline without deviation. Buccal mucosa is dry with cracks in his lips NECK: Supple without any masses. Trachea midline no deviation. No JVD, no bruits are appreciated CARDIAC: Regular rhythm, regular rate. S1/S2 are heard. No murmurs gallops or rubs. LUNGS: Clear to auscultation bilaterally. No wheeze, rhonchi or rales. No use of accessory muscles on inspiration or expiration. ABDOMEN: Soft, nontender. Nondistended. Bowel sounds heard in all 4 quadrants. No organomegaly or masses. Negative rebound, negative guarding. Right sided ileostomy noted EXTREMITIES: No edema, pulses are equal bilaterally. No cyanosis or clubbing NEUROLOGY: Mood and affect appear appropriate. Cranial nerves II through XII grossly intact. Muscle strength 5/5 in upper and lower extremities bilaterally. Deep tendon reflexes are 2+ in upper and lower extremities bilaterally. Laboratory Laboratory Tests Test 08/16/17 13:26 08/16/17 15:00 08/16/17 17:00 White Blood Count 25.4 Red Blood Count 3.63 Hemoglobin 10.9 Hematocrit 32.4 Mean Corpuscular Volume 89.3 Mean Corpuscular Hemoglobin 29.9 Mean Corpuscular Hemoglobin Concent 33.5 Red Cell Distribution Width 14.3 Platelet Count 183 Mean Platelet Volume 8.8 Neutrophils (%) (Auto) 93.6 Lymphocytes (%) (Auto) 2.5 Monocytes (%) (Auto) 2.8 Eosinophils (%) (Auto) 1.0 Basophils (%) (Auto) 0.1 Neutrophils # (Auto) 23.8 Lymphocytes # (Auto) 0.6 Monocytes # (Auto) 0.7 Eosinophils # (Auto) 0.3 Basophils # (Auto) 0.0 CBC Comment DIFF FINAL Differential Comment Prothrombin Time GREATER THAN 180.0 Prothromb Time International Ratio GREATER THAN 14.5 Activated Partial Thromboplast Time 89.6 Blood Urea Nitrogen 149 Creatinine 6.30 Random Glucose 86 Total Protein 7.0 Albumin 2.1 Calcium Level 8.8 Phosphorus Level 4.2 Magnesium Level 2.4 Alkaline Phosphatase 139 Aspartate Amino Transf (AST/SGOT) 68 Alanine Aminotransferase (ALT/SGPT) 70 Total Bilirubin 0.9 Sodium Level 144 Potassium Level 4.7 Chloride Level 113 Carbon Dioxide Level 14.0 Anion Gap 17 Estimat Glomerular Filtration Rate 9 Total Creatine Kinase 281 Creatine Kinase MB 5.3 Troponin I 0.07 Lactic Acid Level 0.9 Date/Time Source Procedure Growth Status 08/16/17 15:00 Blood Peripheral Aerobic Blood Culture Pending Received 08/16/17 15:00 Blood Peripheral Anaerobic Blood Culture Pending Received Result Diagram: 08/16/17 1326 08/16/17 1326 Imaging Last Impressions Pelvis X-Ray 08/16/17 0000 Signed Impressions: Service Date/Time: Wednesday, August 16, 2017 13:15 - CONCLUSION: No acute abnormality. Juan Pablo Coleman Jr., MD Head CT 08/16/17 0000 Signed Impressions: Service Date/Time: Wednesday, August 16, 2017 12:18 - CONCLUSION: 1. No acute intracranial abnormality. 2. 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 3. Atrophy and chronic lacunar infarctions. Juan Pablo Coleman Jr., MD Chest X-Ray 08/16/17 0000 Signed Impressions: Service Date/Time: Wednesday, August 16, 2017 13:15 - CONCLUSION: 1. Vague area of nodularity projecting over the first rib on the left. A new finding from the prior study. I cannot exclude a parenchymal nodule. Consider a followup outpatient CT of the thorax. 2. Otherwise, no acute cardiopulmonary disease. Juan Pablo Coleman Jr., MD Capmor VTE Risk Assessment Caprini VTE Risk Assessment: Mod/High Risk (score >= 2) VTE Pharm Contraindication: Coagulopathy,INR elevated Caprini Risk Assessment Model Point Value = 1 Point Value = 2 Point Value = 3 Point Value = 5 Age 41-60 Minor surgery BMI > 25 kg/m2 Swollen legs Varicose veins or History of unexplained or recurrent spontaneous Oral contraceptives or hormone replacement Sepsis (< 1 month) Serious lung disease, including pneumonia (< 1 month) Abnormal pulmonary function Acute myocardial infarction Congestive heart failure (< 1 month) History of inflammatory bowel disease Medical patient at bed rest Age 61-74 Arthroscopic surgery Major open surgery (> 45 min) Laparoscopic surgery (> 45 min) Malignancy Confined to bed (> 72 hours) Immobilizing plaster cast Central venous access Age >= 75 History of VTE Family history of VTE Factor V Leiden Prothrombin [id number] Lupus anticoagulant Anticardiolipin antibodies Elevated serum homocysteine Heparin-induced thrombocytopenia Other congenital or acquired thrombophilia Stroke (< 1 month) Elective arthroplasty Hip, pelvis, or leg fracture Acute spinal cord injury (< 1 month) Prophylaxis Regimen Total Risk Factor Score Risk Level Prophylaxis Regimen 0-1 Low Early ambulation 2 Moderate Order ONE of the following: *Sequential Compression Device (SCD) *Heparin 5000 units SQ BID 3-4 Higher Order ONE of the following medications: *Heparin 5000 units SQ TID *Enoxaparin/Lovenox 40 mg SQ daily (WT < 150 kg, CrCl > 30 mL/min) *Enoxaparin/Lovenox 30 mg SQ daily (WT < 150 kg, CrCl > 10-29 mL/min) *Enoxaparin/Lovenox 30 mg SQ BID (WT < 150 kg, CrCl > 30 mL/min) AND/OR *Sequential Compression Device (SCD) 5 or more Highest Order ONE of the following medications: *Heparin 5000 units SQ TID (Preferred with Epidurals) *Enoxaparin/Lovenox 40 mg SQ daily (WT < 150 kg, CrCl > 30 mL/min) *Enoxaparin/Lovenox 30 mg SQ daily (WT < 150 kg, CrCl > 10-29 mL/min) *Enoxaparin/Lovenox 30 mg SQ BID (WT < 150 kg, CrCl > 30 mL/min) AND *Sequential Compression Device (SCD) Assessment and Plan Assessment and Plan Fall at home with profound weakness Likely multifactorial with patient's history of alcohol use, debility, renal failure CT of the brain does not indicate any acute abnormality We'll get physical therapy evaluation Acute renal failure superimposed on chronic kidney disease stage IV with metabolic acidosis Likely secondary to dehydration Continue IV hydration with Bicarb drip Continue monitor renal function Nephrology consulted for recommendations, discussed with nephrology Supratherapeutic INR Status post vitamin K Monitor PT/INR Leukocytosis Patient afebrile without any signs of sepsis Urinalysis looks very concentrated from dehydration. Await culture for appropriate antibiotics Blood cultures are pending Chest x-ray does not indicate any acute infectious etiology Possible rhabdomyolysis with elevated CK-MB Check urine myoglobin Monitor CPK/CK-MB Equivocal troponin elevation Likely secondary to acute renal failure, patient is asymptomatic without any chest pain Continue trend troponin level every 6 hours Atrial fibrillation, hyperlipidemia Rate controlled at this time Blood pressure low, will need to monitor blood pressure prior to restarting beta kobe for rate control Patient is on Coumadin however INR is supratherapeutic We'll hold statins time due to rhabdomyolysis DVT prevention INR supratherapeutic Physician Certification 2 Midnight Certification Type: Admission for Inpatient Services Order for Inpatient Services The services are ordered in accordance with Medicare regulations or non- Medicare payer requirements, as applicable. In the case of services not specified as inpatient-only, they are appropriately provided as inpatient services in accordance with the 2-midnight benchmark. Estimated LOS (days): 3 days is the estimated time the patient will need to remain in the hospital, assuming treatment plan goals are met and no additional complications. Post-Hospital Plan: Not yet determined Problem Qualifiers (1) Leukocytosis: Qualified Codes: D72.829 - Elevated white blood cell count, unspecified Iraj Maddox Aug 16, 2017 17:48
[2017-08-16 17:50] LABS: BILIRUBIN, URINE NEG (NEG)
[2017-08-16 17:51] LABS: BACTERIA, URINE MOD /hpf; RBC, URINE INNUM /hpf (0-3); SQUAMOUS EPITHELIAL CELL URINE 0-5 /hpf (0-5); URINE COLOR BLACK (YELLW/STRAW); WBC, URINE 100-200 /hpf (0-5)
--- NOTE | 2017-08-16 17:52 | PD.CONS ---
HPI Service Nephrology Consult Requested By Reason for Consult Acute on CKD Primary Care Physician [facility] History of Present Illness This is a very pleasant 77 y/o male with whom we follow in outpatient setting. He has CKD 3, baseline creatinine runs 1.7 with GFR 37 from Sep 2016. He fell out of a chair, reportedly was down for 2 days unable to get up. His neighbor called for help when the newspapers began to collect. Other PMH of bladder CA s/p urostomy, HTN, A fib on Coumadin, insomnia, and hyperlipemia. His labs were abnormal for the following: WBC 25.4, Cl 113, CO2 14, BUN 149, Cr 6.3. His CKMB is 5.3 and CK is 241. INR measured over 14.5. We were consulted to assist with management. His urostomy is full, has dark cola colored urine. UA not available at this time. He was given 2 L NS since arrival. BP borderline 90s/50s. He is a full code this admission, is being transferred to ICU. (Lydia Olson) Review of Systems Constitutional: COMPLAINS OF: Fatigue, DENIES: Fever, Weight gain Cardiovascular: DENIES: Chest pain Gastrointestinal: DENIES: Abdominal pain Neurologic: DENIES: Abnormal gait, Localized weakness, Speech Problems ( Lydia Olson) Past Family Social History Allergies: Coded Allergies: crab (Unverified Allergy, Intermediate, Rash, 08/16/17) Blue Shell crab causes severe rash all over face and neck. Needs PCN to help clear it up. Patient CAN eat Shrimp and clams, scallops, oysters without problems. Past Medical History CKD 3, baseline creatinine from Sep 2016 1.7, GFR 37 HTN A fib on Coumadin Bladder Cancer s/p urostomy Insomnia hyperlipidemia Past Surgical History Parotid mass excision Urostomy Reported Medications Warfarin 3 Mg Tab 3 Mg PO DAILY Pilocarpine 5 Mg Tab 5 Mg PO DAILY Hm Loratadine (Loratadine) 10 Mg Tab 1 Tab PO DAILY Trazodone (Trazodone HCl) 150 Mg Tablet 50 Mg PO HS Nadolol 20 Mg Tab 20 Mg PO DAILY Atorvastatin (Atorvastatin Calcium) 20 Mg Tab 20 Mg PO HS Active Ordered Medications Current Medications Medications (Trade) Dose Ordered Sig/Marko Route Start Time Stop Time Status Last Admin (NS Flush) 2 ml UNSCH PRN IV FLUSH 08/16/17 14:30 (NS Flush) 2 ml BID IV FLUSH 08/16/17 21:00 (Tylenol) 650 mg Q4H PRN PO 08/16/17 14:30 (Zofran Inj) 4 mg Q6H PRN IVP 08/16/17 14:30 (Narcan Inj) 0.4 mg UNSCH PRN IV PUSH 08/16/17 14:30 (Milk Of Magnesia Liq) 30 ml Q12H PRN PO 08/16/17 14:30 (Senokot) 17.2 mg Q12H PRN PO 08/16/17 14:30 (Dulcolax Supp) 10 mg DAILY PRN RECTAL 08/16/17 14:30 (Lactulose Liq) 30 ml DAILY PRN PO 08/16/17 14:30 (Lipitor) 20 mg HS PO 08/16/17 21:00 Sodium Bicarbonate 75 meq/Sodium Chloride 1,075 ml @ 100 mls/hr [id number] IV 08/16/17 16:00 08/16/17 16:10 Sodium Chloride 500 ml @ 500 mls/hr BOLUS ONCE IV 08/16/17 17:30 08/16/17 18:29 08/16/17 17:27 Family History Father had heart disease Social History He lives alone Ambulatory and independent with ADLs normally former smoker, quit 20 yrs ago Former ETOH, drank beer Full code (Lydia Olson) Physical Exam Vital Signs Vital Signs Date Time Temp Pulse Resp B/P (MAP) Pulse Ox O2 Delivery O2 Flow Rate FiO2 08/16/17 16:27 73 16 98/59 (72) 97 Room Air 08/16/17 15:31 85 16 133/77 (95) 97 Room Air 08/16/17 14:43 83 16 118/63 (81) 98 Room Air 08/16/17 13:52 88 16 122/60 (80) 99 Room Air 08/16/17 13:35 16 96 Room Air 08/16/17 13:35 86 16 96 Room Air 08/16/17 13:30 96 21 08/16/17 12:13 84 18 103/78 (86) 97 Physical Exam Elderly Frail male Awake, alert, follows commands Dry mucous membranes S1/S2, irreg irreg, normal rate; BP 90/50s Abdomen flat, soft, non tender urostomy lower abdomen, urine dark brown Lungs clear no edema Skin dry, intact Laboratory Laboratory Tests Test 08/16/17 13:26 08/16/17 15:00 White Blood Count 25.4 Red Blood Count 3.63 Hemoglobin 10.9 Hematocrit 32.4 Mean Corpuscular Volume 89.3 Mean Corpuscular Hemoglobin 29.9 Mean Corpuscular Hemoglobin Concent 33.5 Red Cell Distribution Width 14.3 Platelet Count 183 Mean Platelet Volume 8.8 Neutrophils (%) (Auto) 93.6 Lymphocytes (%) (Auto) 2.5 Monocytes (%) (Auto) 2.8 Eosinophils (%) (Auto) 1.0 Basophils (%) (Auto) 0.1 Neutrophils # (Auto) 23.8 Lymphocytes # (Auto) 0.6 Monocytes # (Auto) 0.7 Eosinophils # (Auto) 0.3 Basophils # (Auto) 0.0 CBC Comment DIFF FINAL Differential Comment Prothrombin Time GREATER THAN 180.0 Prothromb Time International Ratio GREATER THAN 14.5 Activated Partial Thromboplast Time 89.6 Blood Urea Nitrogen 149 Creatinine 6.30 Random Glucose 86 Total Protein 7.0 Albumin 2.1 Calcium Level 8.8 Phosphorus Level 4.2 Magnesium Level 2.4 Alkaline Phosphatase 139 Aspartate Amino Transf (AST/SGOT) 68 Alanine Aminotransferase (ALT/SGPT) 70 Total Bilirubin 0.9 Sodium Level 144 Potassium Level 4.7 Chloride Level 113 Carbon Dioxide Level 14.0 Anion Gap 17 Estimat Glomerular Filtration Rate 9 Total Creatine Kinase 281 Creatine Kinase MB 5.3 Troponin I 0.07 Lactic Acid Level 0.9 Date/Time Source Procedure Growth Status 08/16/17 15:00 Blood Peripheral Aerobic Blood Culture Pending Received 08/16/17 15:00 Blood Peripheral Anaerobic Blood Culture Pending Received (Lydia Olson) Result Diagram: 08/16/17 1326 08/16/17 1326 Imaging Last 72 hours Impressions Pelvis X-Ray 08/16/17 0000 Signed Impressions: Service Date/Time: Wednesday, August 16, 2017 13:15 - CONCLUSION: No acute abnormality. Juan Pablo Coleman Jr., MD Head CT 08/16/17 0000 Signed Impressions: Service Date/Time: Wednesday, August 16, 2017 12:18 - CONCLUSION: 1. No acute intracranial abnormality. 2. 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 3. Atrophy and chronic lacunar infarctions. Juan Pablo Coleman Jr., MD Chest X-Ray 08/16/17 0000 Signed Impressions: Service Date/Time: Wednesday, August 16, 2017 13:15 - CONCLUSION: 1. Vague area of nodularity projecting over the first rib on the left. A new finding from the prior study. I cannot exclude a parenchymal nodule. Consider a followup outpatient CT of the thorax. 2. Otherwise, no acute cardiopulmonary disease. Juan Pablo Coleman Jr., MD (Lydia Olosn) Assessment and Plan Problem List: (1) Acute renal failure ICD Codes: N17.9 - Acute kidney failure, unspecified Status: Acute Plan: SANDI on CKD 3, baseline creatinine is 1.7, GFR 37 SANDI is likely secondary to prerenal azotemia, was found down and without PO fluids x 2 days. Clinically he appears very dry. Unlikely rhabdomyolysis as CK is not that elevated Check urine electrolytes, obtain urine for analysis Obtain Renal US Start bicarb drip; he has been given 2 liters of NS since arrival Monitor renal function daily, renally dose when appropriate, avoid nephrotoxic agents Follow urine output He is not in need of dialysis support at this time, monitor for changes (2) Metabolic acidosis ICD Codes: E87.2 - Acidosis Plan: Due to reduction in GFR Change Fluids to 1/2 NS with 75 mEq bicarb @ 100 ml/hr (3) Supratherapeutic INR ICD Codes: R79.1 - Abnormal coagulation profile Status: Acute Plan: Hold Coumadin, may benefit vitamin K follow INR, resume when clinically appropriate (4) Leukocytosis ICD Codes: D72.829 - Elevated white blood cell count, unspecified Status: Acute Plan: May be due to dehydration, hemoconcentration Given Zosyn in the ER, rule out infection Assessment and Plan Thank you for the consult. We will continue to follow. (Lydia Olson) Assessment and Plan patient has underlying stage III CKD. SANDI could be due to intravascular volume depletion and pre-renal azotemia. May have progressed to ATN. Continue IVF, avoid nephrotoxic agents. (Rajeev Gaona MD) Problem Qualifiers (1) Acute renal failure: Qualified Codes: N17.9 - Acute kidney failure, unspecified (2) Leukocytosis: Qualified Codes: D72.829 - Elevated white blood cell count, unspecified Lydia Olson Aug 16, 2017 17:52 Rajeev Gaona MD Aug 17, 2017 19:04
[2017-08-16] MEDS: SODIUM CHLORIDE 0.9% FLUSH 10 ML FLUSH IV FLUSH SCH (19:36)
[2017-08-16] MEDS ORDERED: LACTATED RINGER'S 1000 ML INJ 1,000 ML IV ONE ×2 (20:30→22:15)
[2017-08-16 20:46] LABS: CREATININE, RANDOM URINE 40.6 MG/DL
[2017-08-16] MEDS ORDERED: ATORVASTATIN 20 MG TAB PO SCH (21:00)
[2017-08-16] MEDS ORDERED: TERBUTALINE INJ 1 MG/ML AMP SQ PRN (22:30)
[2017-08-16] MEDS ORDERED: Vancomycin Consult Pharmacy 1 EA OTHER SCH (22:30)
[2017-08-16] MEDS ORDERED: SODIUM CHLOR 0.9% 250 ML INJ 250 ML IV ONE (22:45)
[2017-08-16 22:50] LABS: AUTOMATED NEUTROPHIL # 18.4 TH/MM3 (1.8-7.7); BASOPHIL % 0.1 % (0.0-2.0); EOSINOPHIL % 0.1 % (0.0-4.0); HEMATOCRIT 36.2 % (39.0-51.0); HEMOGLOBIN 11.3 GM/DL (13.0-17.0); LYMPH % 2.6 % (9.0-44.0); LYMPHOCYTE # 0.5 TH/MM3 (1.0-4.8); MEAN CELL VOLUME 90.9 FL (80.0-100.0); MEAN CORPUSCULAR HEMOGLOBIN 28.4 PG (27.0-34.0); MEAN CORPUSCULAR HGB CONC 31.2 % (32.0-36.0); MEAN PLATELET VOLUME 9.3 FL (7.0-11.0); MONO % 1.3 % (0.0-8.0); MONOCYTE # 0.2 TH/MM3 (0-0.9); NEUT % 95.9 % (16.0-70.0); PLATELET COUNT 203 TH/MM3 (150-450); RED BLOOD COUNT 3.98 MIL/MM3 (4.50-5.90); RED CELL DISTRIBUTION WIDTH 15.2 % (11.6-17.2); WHITE BLOOD COUNT 19.1 TH/MM3 (4.0-11.0)
[2017-08-16] MEDS: PHENYLEPHRINE INJ 160 MG in DEXTROSE 5% IN WATE 500 ML INJ 484 ML IV PRN ×2 (23:01)
[2017-08-16] MEDS: PIPERACIL-TAZO 2.25 GM PREMIX 50 ML IV SCH (23:03)
[2017-08-16 23:12] LABS: CHLORIDE 114 MEQ/L (98-107); SODIUM (NA) 145 MEQ/L (136-145)
[2017-08-16 23:15] LABS: CALCIUM 8.5 MG/DL (8.5-10.1)
[2017-08-16 23:16] LABS: ALBUMIN 2.2 GM/DL (3.4-5.0); BICARBONATE 17.1 MEQ/L (21.0-32.0); BLOOD UREA NITROGEN 141 MG/DL (7-18); GLUCOSE,RANDOM 89 MG/DL (74-106)
[2017-08-16 23:19] LABS: ALT (GPT) 76 U/L (12-78); AST (GOT) 75 U/L (15-37); GLOMERULAR FILTRATION RATE 10 ML/MIN (>89)
[2017-08-16 23:20] LABS: TOTAL BILIRUBIN ADULT 0.9 MG/DL (0.2-1.0); TOTAL PROTEIN 7.3 GM/DL (6.4-8.2)
[2017-08-16 23:22] LABS: ALKALINE PHOSPHATASE 140 U/L (45-117)
[2017-08-17] VITALS (92 sets, daily range): BP systolic 64–144; BP diastolic 48–88; PULSE 57–138; RESP 13–39; TEMP 97.5–99; O2SAT 77–100
[2017-08-17] MEDS ORDERED: VANCOMYCIN 1,000 MG/NS 250 ML IV ONE ×2
--- NOTE | 2017-08-17 00:10 | PD ---
Data Data Last Documented VS Vital Signs Date Time Temp Pulse Resp B/P (MAP) Pulse Ox O2 Delivery O2 Flow Rate FiO2 08/16/17 13:52 88 16 122/60 (80) 99 Room Air 08/16/17 13:30 21 Orders Orders Magnesium (Mg) (08/16/17 12:10) Phosphorus (Po4) (08/16/17 12:10) Complete Blood Count With Diff (08/16/17 12:10) Comprehensive Metabolic Panel (08/16/17 12:10) Creatine Kinase (Cpk) (08/16/17 12:10) Ckmb (Isoenzyme) Profile (08/16/17 12:10) Troponin I (08/16/17 12:10) Urinalysis - C+S If Indicated (08/16/17 12:10) Act Partial Throm Time (Ptt) (08/16/17 12:10) Prothrombin Time / Inr (Pt) (08/16/17 12:10) Ct Brain W/O Iv Contrast(Rout) (08/16/17 ) Chest, Single Ap (08/16/17 ) Electrocardiogram (08/16/17 ) Iv Access Insert/Monitor (08/16/17 12:10) Ecg Monitoring (08/16/17 12:10) Oximetry (08/16/17 12:10) Pelvis, Ap Only (Routine) (08/16/17 ) Sodium Chlorid 0.9% 500 Ml Inj (Ns 500 M (08/16/17 12:15) Resp Lab Draw Arterial Punctur (08/16/17 ) CKMB (08/16/17 13:26) CKMB% (08/16/17 13:26) Resp Lab Draw Arterial Punctur (08/16/17 13:15) Sodium Chlor 0.9% 1000 Ml Inj (Ns 1000 M (08/16/17 14:15) Phytonadione Inj (Vitamin K Inj) (08/16/17 14:30) Blood Culture (08/16/17 14:26) Lactic Acid (08/16/17 14:26) Piperacil-Tazo 4.5 Gm Premix (Zosyn 4.5 (08/16/17 14:26) Admit Order (Ed Use Only) (08/16/17 14:28) Labs Laboratory Tests Test 12/19/17 13:26 White Blood Count 25.4 TH/MM3 Red Blood Count 3.63 MIL/MM3 Hemoglobin 10.9 GM/DL Hematocrit 32.4 % Mean Corpuscular Volume 89.3 FL Mean Corpuscular Hemoglobin 29.9 PG Mean Corpuscular Hemoglobin Concent 33.5 % Red Cell Distribution Width 14.3 % Platelet Count 183 TH/MM3 Mean Platelet Volume 8.8 FL Neutrophils (%) (Auto) 93.6 % Lymphocytes (%) (Auto) 2.5 % Monocytes (%) (Auto) 2.8 % Eosinophils (%) (Auto) 1.0 % Basophils (%) (Auto) 0.1 % Neutrophils # (Auto) 23.8 TH/MM3 Lymphocytes # (Auto) 0.6 TH/MM3 Monocytes # (Auto) 0.7 TH/MM3 Eosinophils # (Auto) 0.3 TH/MM3 Basophils # (Auto) 0.0 TH/MM3 CBC Comment DIFF FINAL Differential Comment Prothrombin Time GREATER THAN 180.0 SEC Prothromb Time International Ratio GREATER THAN 14.5 RATIO Activated Partial Thromboplast Time 89.6 SEC Blood Urea Nitrogen 149 MG/DL Creatinine 6.30 MG/DL Random Glucose 86 MG/DL Total Protein 7.0 GM/DL Albumin 2.1 GM/DL Calcium Level 8.8 MG/DL Phosphorus Level 4.2 MG/DL Magnesium Level 2.4 MG/DL Alkaline Phosphatase 139 U/L Aspartate Amino Transf (AST/SGOT) 68 U/L Alanine Aminotransferase (ALT/SGPT) 70 U/L Total Bilirubin 0.9 MG/DL Sodium Level 144 MEQ/L Potassium Level 4.7 MEQ/L Chloride Level 113 MEQ/L Carbon Dioxide Level 14.0 MEQ/L Anion Gap 17 MEQ/L Estimat Glomerular Filtration Rate 9 ML/MIN Total Creatine Kinase 281 U/L Creatine Kinase MB 5.3 NG/ML Troponin I 0.07 NG/ML [facility] Supervised Visit with NORBERT: No Narrative Course At around 10:30 PM I was called by hospitalist Dr. Smith to see if I could place a central line in this patient who remains hypotensive with poor peripheral access. He plans to start the patient on vasopressors, however the patient's only access is a 22-gauge IV in the right upper extremity, as further IV access has been unobtainable. Because of the patient's INR of greater than 14, I decided to place a triple-lumen in the patient's right femoral vein, which is a compressible site, as opposed to the internal jugular or subclavian vein. This was performed under ultrasound guidance without complication. See procedure note. Procedures Procedure Narrative Emergent Central Line: CENTRAL VENOUS LINE: The site was prepped with chlorohexidine and sterilely draped. It was infiltrated with 1% lidocaine plain. The deep vein was cannulated using normal Seldinger technique. A central line was placed in the right femoral vein under ultrasound guidance and secured with central line adhesive securing device. The site was sterilely dressed. The patient tolerated the procedure well. No complications. Diagnosis Primary Impression: Acute renal failure Qualified Codes: N17.9 - Acute kidney failure, unspecified Additional Impressions: Supratherapeutic INR Leukocytosis Qualified Codes: D72.829 - Elevated white blood cell count, unspecified Tan Gamboa MD Aug 17, 2017 00:10
[2017-08-17] MEDS ORDERED: ALBUMIN 5% INJ 250 ML IV ONE (00:15)
[2017-08-17 00:40] LABS: BANDS 6 % (0-6); LYMPHOCYTES 4 % (9-44); MONOCYTES 4 % (0-8); NEUTROPHIL # MANUAL DIFF 17.6 TH/MM3 (1.8-7.7); POLYS (SEG NEUTROPHILS) 86 % (16-70)
[2017-08-17] MEDS: SODIUM BICARBONATE 8.4% INJ 75 MEQ in SODIUM CHLOR 0.9% 1000 ML INJ 1,000 ML IV SCH (02:52)
[2017-08-17] MEDS ORDERED: DILTIAZEM INJ 125 MG in SODIUM CHLORIDE 0.9% INJ 100 ML IV PRN (03:00)
[2017-08-17] MEDS ORDERED: DILTIAZEM HCL 25 MG/5 ML VIAL ONE (03:01)
[2017-08-17 04:45] LABS: AUTOMATED NEUTROPHIL # 17.7 TH/MM3 (1.8-7.7); BASOPHIL # 0.4 TH/MM3 (0-0.2); BASOPHIL % 1.9 % (0.0-2.0); EOSINOPHIL % 0.1 % (0.0-4.0); HEMATOCRIT 26.1 % (39.0-51.0); HEMOGLOBIN 8.6 GM/DL (13.0-17.0); LYMPH % 1.2 % (9.0-44.0); LYMPHOCYTE # 0.2 TH/MM3 (1.0-4.8); MEAN CELL VOLUME 90.7 FL (80.0-100.0); MEAN CORPUSCULAR HGB CONC 33.1 % (32.0-36.0); MEAN PLATELET VOLUME 9.1 FL (7.0-11.0); MONO % 1.5 % (0.0-8.0); MONOCYTE # 0.3 TH/MM3 (0-0.9); NEUT % 95.3 % (16.0-70.0); PLATELET COUNT 133 TH/MM3 (150-450); RED BLOOD COUNT 2.88 MIL/MM3 (4.50-5.90); RED CELL DISTRIBUTION WIDTH 14.8 % (11.6-17.2); WHITE BLOOD COUNT 18.6 TH/MM3 (4.0-11.0)
[2017-08-17 04:47] LABS: CHLORIDE 116 MEQ/L (98-107); SODIUM (NA) 150 MEQ/L (136-145)
[2017-08-17 04:50] LABS: BICARBONATE 15.4 MEQ/L (21.0-32.0); BLOOD UREA NITROGEN 139 MG/DL (7-18); GLUCOSE,RANDOM 76 MG/DL (74-106); LIPASE 153 U/L (73-393)
[2017-08-17 04:53] LABS: GLOMERULAR FILTRATION RATE 11 ML/MIN (>89); INTERNATIONAL NORMALIZED RATIO 3.5 RATIO
[2017-08-17 04:54] LABS: PHOSPHORUS 3.1 MG/DL (2.5-4.9)
[2017-08-17] MEDS ORDERED: DIGOXIN 0.5 MG/2 ML VIAL IV PUSH ONE (06:15)
--- NOTE | 2017-08-17 06:17 | PD.CONS ---
HPI Service Critical Care Medicine Consult Requested By Hospitalist service Reason for Consult shock, hypotension Primary Care Physician [facility] History of Present Illness This is a 77yM with history of afib on coumadin, liver cancer, parotid cancer, bladder cancer s/p ileostomy and stage IV CKD (baseline Cr 1.7) who presented after he had a fall with weakness at home. he was brought in by [facility] and in the ED he was found to be in acute renal failure, hypotensive, severely dehydrated. He was admitted for ivf and nephrology consultation. despite 3L ivf resuscitation, he was persistently hypotensive. His anion gap is worsening, and his serum bicarbonate is falling despite fluid resuscitation. He was also started on phenylephrine for vasopressor support. During the night, his became worseningly tachycardic and diltiazem was started. Critical care medicine is consulted to evaluate and manage his worsening shock, his hypotension, and his acute kidney injury. Unfortunately, the patient is encephalopathic and a very poor historian. He does reliably deny chest or abdominal pain, but the remainder of any history is mostly unobtainable due to his somnolence and inattention. The remainder of the history is obtained from the medical record. Review of Systems ROS Limitations: Speech Impaired, Poor Historian Constitutional: DENIES: Fever, Chills Respiratory: DENIES: Shortness of breath Cardiovascular: DENIES: Chest pain Gastrointestinal: DENIES: Abdominal pain, Bloody stools, Diarrhea, Nausea, Vomiting Past Family Social History Allergies: Coded Allergies: crab (Unverified Allergy, Intermediate, Rash, 08/16/17) Blue Shell crab causes severe rash all over face and neck. Needs PCN to help clear it up. Patient CAN eat Shrimp and clams, scallops, oysters without problems. Past Medical History Atrial fibrillation Hyperlipidemia Chronic kidney disease stage IV History of bladder cancer History of parotid gland cancer Past Surgical History Ileostomy Parotid surgery Reported Medications Warfarin 3 Mg Tab 3 Mg PO DAILY Pilocarpine 5 Mg Tab 5 Mg PO DAILY Hm Loratadine (Loratadine) 10 Mg Tab 1 Tab PO DAILY Trazodone (Trazodone HCl) 150 Mg Tablet 50 Mg PO HS Nadolol 20 Mg Tab 20 Mg PO DAILY Atorvastatin (Atorvastatin Calcium) 20 Mg Tab 20 Mg PO HS Active Ordered Medications See MAR Family History father having heart disease Social History former smoker, quit 20 yrs ago Patient quit smoking 20 years ago, prior to that he smoked one pack a severe sedation she was 18 years old. Patient has have history of alcohol use of 8-9 cans of beer daily, however he states that he has not been drinking any alcohol recently. No indication of a illicit drug use Physical Exam Assessment and Plan Fall at home with profound weakness Likely multifactorial with patient's history of alcohol use, debility, renal failure CT of the brain does not indicate any acute abnormality We'll get physical therapy evaluation Acute renal failure superimposed on chronic kidney disease stage IV with metabolic acidosis Likely secondary to dehydration Continue IV hydration with Bicarb drip Continue monitor renal function Nephrology consulted for recommendations, discussed with nephrology Supratherapeutic INR Status post vitamin K Monitor PT/INR Leukocytosis Patient afebrile without any signs of sepsis Urinalysis looks very concentrated from dehydration. Await culture for appropriate antibiotics Blood cultures are pending Chest x-ray does not indicate any acute infectious etiology Possible rhabdomyolysis with elevated CK-MB Check urine myoglobin Monitor CPK/CK-MB Equivocal troponin elevation Likely secondary to acute renal failure, patient is asymptomatic without any chest pain Continue trend troponin level every 6 hours Atrial fibrillation, hyperlipidemia Rate controlled at this time Blood pressure low, will need to monitor blood pressure prior to restarting beta kobe for rate control Patient is on Coumadin however INR is supratherapeutic We'll hold statins time due to rhabdomyolysis DVT prevention INR supratherapeutic Physical Exam Vital Signs Vital Signs Date Time Temp Pulse Resp B/P (MAP) Pulse Ox O2 Delivery O2 Flow Rate FiO2 08/17/17 05:00 118 29 80/55 (63) 08/17/17 04:17 128 30 71/54 (60) 08/17/17 04:00 128 08/17/17 03:32 139 74/55 08/17/17 03:00 138 31 68/54 (59) 08/17/17 02:14 99.0 98 31 97/54 97 08/17/17 02:00 116 32 88/61 (70) 08/17/17 02:00 98.4 103 36 88/61 97 08/17/17 02:00 116 08/17/17 01:49 97.9 116 34 99/59 98 08/17/17 01:36 98.3 120 30 76/50 98 08/17/17 00:00 92 08/17/17 00:00 98.0 92 30 94/67 (76) 08/16/17 23:01 85 91/67 08/16/17 22:00 80 23 73/53 (60) 08/16/17 22:00 80 08/16/17 21:00 88 28 81/54 (63) 08/16/17 20:14 96 21 08/16/17 20:00 97.6 80 20 76/54 (61) 08/16/17 20:00 80 08/16/17 20:00 97.6 80 20 76/54 (61) 98 08/16/17 19:00 82 21 08/16/17 18:48 78 24 96/60 (72) 93 08/16/17 18:00 84 08/16/17 17:48 97.2 80 11 84/60 (68) 90 08/16/17 17:47 08/16/17 17:30 72 16 84/60 (68) 96 Room Air 08/16/17 16:27 73 16 98/59 (72) 97 Room Air 08/16/17 15:31 85 16 133/77 (95) 97 Room Air 08/16/17 14:43 83 16 118/63 (81) 98 Room Air 08/16/17 13:52 88 16 122/60 (80) 99 Room Air 08/16/17 13:35 16 96 Room Air 08/16/17 13:35 86 16 96 Room Air 08/16/17 13:30 96 21 08/16/17 12:13 84 18 103/78 (86) 97 Physical Exam gen: frail elderly male, lying in bed, critically ill heent: normocephalic, atraumatic. pupils are equal, round, reactive, and conjugate. mucous membranes are dry. neck: trachea is midline. neck veins are completely flat. chest: equal chest rise. nc o2 cv: tachycardic rate, irregularly irregular rhythm. afib by tele. sbp still in the 70s. on 130 mcg/min phenylephrine abd: soft, nontender, nondistended. RLQ ileal conduit/urostomy with brown- colored urine. no guarding. extr: warm and well-perfused. distal pulses 2+. no edema. neuro: RASS -1. CAM+. follows commands. Bedside critical care ultrasound: grossly preserved biventricular function. no clinically significant valvular lesions. no pericardial effusion, IVC is collapsable and varies with respiration. Laboratory Laboratory Tests Test 08/16/17 13:26 08/16/17 15:00 08/16/17 17:00 08/16/17 17:23 White Blood Count 25.4 Red Blood Count 3.63 Hemoglobin 10.9 Hematocrit 32.4 Mean Corpuscular Volume 89.3 Mean Corpuscular Hemoglobin 29.9 Mean Corpuscular Hemoglobin Concent 33.5 Red Cell Distribution Width 14.3 Platelet Count 183 Mean Platelet Volume 8.8 Neutrophils (%) (Auto) 93.6 Lymphocytes (%) (Auto) 2.5 Monocytes (%) (Auto) 2.8 Eosinophils (%) (Auto) 1.0 Basophils (%) (Auto) 0.1 Neutrophils # (Auto) 23.8 Lymphocytes # (Auto) 0.6 Monocytes # (Auto) 0.7 Eosinophils # (Auto) 0.3 Basophils # (Auto) 0.0 CBC Comment DIFF FINAL Differential Comment Prothrombin Time GREATER THAN 180.0 Prothromb Time International Ratio GREATER THAN 14.5 Activated Partial Thromboplast Time 89.6 Blood Urea Nitrogen 149 Creatinine 6.30 Random Glucose 86 Total Protein 7.0 Albumin 2.1 Calcium Level 8.8 Phosphorus Level 4.2 Magnesium Level 2.4 Alkaline Phosphatase 139 Aspartate Amino Transf (AST/SGOT) 68 Alanine Aminotransferase (ALT/SGPT) 70 Total Bilirubin 0.9 Sodium Level 144 Potassium Level 4.7 Chloride Level 113 Carbon Dioxide Level 14.0 Anion Gap 17 Estimat Glomerular Filtration Rate 9 Total Creatine Kinase 281 Creatine Kinase MB 5.3 Troponin I 0.07 Lactic Acid Level 0.9 Urine Color BLACK Urine Turbidity CLOUDY Urine pH 8.5 Urine Specific Pitcher 1.013 Urine Protein 100 Urine Glucose (UA) NEG Urine Ketones NEG Urine Occult Blood LARGE Urine Nitrite NEG Urine Bilirubin NEG Urine Leukocyte Esterase LARGE Urine RBC INNUM Urine WBC 100-200 Urine Squamous Epithelial Cells 0-5 Urine Bacteria MOD Microscopic Urinalysis Comment CULTURE INDICATED Urine Random Creatinine 40.6 Urine Random Sodium 47 Test 08/16/17 19:40 08/16/17 22:38 08/17/17 02:09 08/17/17 04:15 Troponin I 0.05 0.05 White Blood Count 19.1 18.6 Red Blood Count 3.98 2.88 Hemoglobin 11.3 8.6 Hematocrit 36.2 26.1 Mean Corpuscular Volume 90.9 90.7 Mean Corpuscular Hemoglobin 28.4 30.0 Mean Corpuscular Hemoglobin Concent 31.2 33.1 Red Cell Distribution Width 15.2 14.8 Platelet Count 203 133 Mean Platelet Volume 9.3 9.1 Neutrophils (%) (Auto) 95.9 95.3 Lymphocytes (%) (Auto) 2.6 1.2 Monocytes (%) (Auto) 1.3 1.5 Eosinophils (%) (Auto) 0.1 0.1 Basophils (%) (Auto) 0.1 1.9 Neutrophils # (Auto) 18.4 17.7 Lymphocytes # (Auto) 0.5 0.2 Monocytes # (Auto) 0.2 0.3 Eosinophils # (Auto) 0.0 0.0 Basophils # (Auto) 0.0 0.4 CBC Comment AUTO DIFF AUTO DIFF Differential Total Cells Counted 100 Neutrophils % (Manual) 86 Band Neutrophils % 6 Lymphocytes % 4 Monocytes % 4 Neutrophils # (Manual) 17.6 Differential Comment FINAL DIFF MANUAL Platelet Estimate NORMAL Platelet Morphology Comment NORMAL Red Cell Morphology Comment NORMAL Blood Urea Nitrogen 141 139 Creatinine 5.60 5.30 Random Glucose 89 76 Total Protein 7.3 Albumin 2.2 Calcium Level 8.5 8.0 Alkaline Phosphatase 140 Aspartate Amino Transf (AST/SGOT) 75 Alanine Aminotransferase (ALT/SGPT) 76 Total Bilirubin 0.9 Sodium Level 145 150 Potassium Level 4.6 4.8 Chloride Level 114 116 Carbon Dioxide Level 17.1 15.4 Anion Gap 14 19 Estimat Glomerular Filtration Rate 10 11 Lactic Acid Level 1.0 Prothrombin Time 35.0 Prothromb Time International Ratio 3.5 Activated Partial Thromboplast Time 50.9 Phosphorus Level 3.1 Magnesium Level 2.0 Total Creatine Kinase 145 Lipase 153 Thyroid Stimulating Hormone 3rd Gen 1.060 Test 08/17/17 04:17 Lactic Acid Level 1.2 Date/Time Source Procedure Growth Status 08/16/17 15:00 Blood Peripheral Aerobic Blood Culture Pending Received 08/16/17 15:00 Blood Peripheral Anaerobic Blood Culture Pending Received 08/16/17 17:00 Urine Clean Catch Urine Culture Pending Received Result Diagram: 08/17/17 0415 08/17/17 0415 Imaging Last Impressions Pelvis X-Ray 08/16/17 0000 Signed Impressions: Service Date/Time: Wednesday, August 16, 2017 13:15 - CONCLUSION: No acute abnormality. Juan Pablo Coleman Jr., MD Head CT 08/16/17 0000 Signed Impressions: Service Date/Time: Wednesday, August 16, 2017 12:18 - CONCLUSION: 1. No acute intracranial abnormality. 2. 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 3. Atrophy and chronic lacunar infarctions. Juan Pablo Coleman Jr., MD Chest X-Ray 08/16/17 0000 Signed Impressions: Service Date/Time: Wednesday, August 16, 2017 13:15 - CONCLUSION: 1. Vague area of nodularity projecting over the first rib on the left. A new finding from the prior study. I cannot exclude a parenchymal nodule. Consider a followup outpatient CT of the thorax. 2. Otherwise, no acute cardiopulmonary disease. Juan Pablo Coleman Jr., MD Septic Shock Reassessment Septic shock perfusion: reassessment completed Assessment and Plan Assessment and Plan Assessment: 77yM with acute on chronic kidney disease, acidosis, and undifferentiated shock. Clinically, he still appears to be hypovolemic on exam. His CK continues to downtrend, so it is unlikely he has a large rhabdo component. His FENa is 4.5%, suggestive that this is not completely a pre-renal process. Will order CT abd/pelvis to rule out an obstruction in the ileal conduit as well as rule out uroperitoneum. He is also becoming worseningly acidotic. Remains critically ill and his organ failure is worse today than yesterday. Plan by Systems: Neuro: Metabolic Encephalopathy - likely secondary to uremia - frequent neuro checks - avoid long-acting sedating meds Respiratory: Atelectasis - aggressive pulmonary toilet - wean o2 for goal spo2 > 90% Cardiovascular: Atrial Fibrillation with Rapid Ventricular Response Hypovolemic Shock - d/c diltiazem drip - single dose of digoxin 0.5mg iv x 1 to help with HR control - given shock, will tolerate higher heart rates, up to 130s-140s - continue phenylephrine for goal map > 65 mmhg. Renal: Acute kidney injury superimposed on Chronic Kidney Disease stage IV - continue strict i/o's - CT abd/pelvis to rule out uroperitoneum or obstruction of his ileostomy - nephrology on board - send urine eos - send complement levels FEN/GI: Severe Dehydration Hypernatremia Hyperkalemia Severe Metabolic Acidosis - d/c 1/2NS bicarb - start D5W with 2 amps bicarb at 125 cc/hr - recheck BMP at noon - ABG now. - if his acidosis continues to worsen, will need more aggressive bicarb replacement and may need renal replacement therapy. - f/u CT abd/pelvis as described above - hyperkalemia stable. continue to watch Heme/ID: Anemia- unclear etiology, likely chronic disease Supratherapeutic INR Coumadin Coagulopathy Thrombocytopenia Leukocytosis - acute drop in hgb likely related to the fact that the patient was severely dehydrated, and his prior hgb likely does not represent his true blood counts. - recheck cbc at noon - INR coming down. will not give additional FFP today: no active bleeding. - daily INR - thrombocytopenia likely related to consumption. low probability HIT. - Unclear if there is an infectious etiology at this time. urine culture pending. agree with continuing vancomycin and zosyn and f/u cultures. wbc downtrending, but unclear if this is stress response or infection related. Endocrine: Presumed Adrenal Insufficiency - send random cortisol - start hydrocortisone 50mg iv q6h Prophylaxis: SCDs supratherapeutic INR pepcid iv Dispo: remain in ICU. very critically ill with worsening organ failure and shock. Critical care time: 80 minutes, exclusive of separately billable procedures. Ta Florez MD Aug 17, 2017 06:16
[2017-08-17] MEDS ORDERED: ALBUMIN 5% INJ 500 ML IV ONE (06:30)
[2017-08-17 07:29] LABS: TOXIC VACUOLATION PRESENT (NONE SEEN)
[2017-08-17] MEDS: PIPERACIL-TAZO 2.25 GM PREMIX 50 ML IV SCH ×3 (07:34→22:11)
[2017-08-17] MEDS: SODIUM BICARBONATE 8.4% INJ 100 MEQ in DEXTROSE 5% IN WATE 1000ML INJ 1,000 ML IV SCH ×4 (07:44→16:16)
[2017-08-17] MEDS ORDERED: SODIUM BICARBONATE 8.4% INJ 100 MEQ in DEXTROSE 5% IN WATE 1000ML INJ 1,000 ML IV SCH ×2 (08:00)
[2017-08-17] MEDS: SODIUM CHLORIDE 0.9% FLUSH 10 ML FLUSH IV FLUSH SCH ×2 (08:50→21:19)
[2017-08-17] MEDS: HYDROCORTISONE SOD SUCCINATE 100 MG VIAL IV PUSH SCH ×4 (08:51→23:20)
--- NOTE | 2017-08-17 08:54 | HHI.NPPN ---
Subjective General Problems: Anemia Renal Failure: Chronic, Acute, Stage III Interval History He was transferred to ICU. Went into RVR last night, cardizem drip started but rate has normalized and it was stopped. He is hypotensive despite maximum dose of Phenylephrine. He is awake, appears very dry, is lethargic. (Lydia Olson) Review of Systems General Constitutional: Fatigue (Lydia Olson) Objective Data Data 08/17/17 08/18/17 19:00 07:00 Intake Total 161.5 ml Balance 161.5 ml IV Total 161.5 ml Vital Signs Date Time Temp Pulse Resp B/P (MAP) Pulse Ox O2 Delivery O2 Flow Rate FiO2 08/17/17 08:40 66 22 109/68 (82) 08/17/17 08:35 70 25 108/60 (76) 08/17/17 08:35 70 25 108/60 (76) 08/17/17 08:30 66 20 108/66 (80) 08/17/17 08:30 66 20 108/66 (80) 08/17/17 08:25 68 24 100/63 (75) 08/17/17 08:25 68 24 100/63 (75) 08/17/17 08:20 66 22 98/60 (73) 08/17/17 08:20 66 22 98/60 (73) 08/17/17 08:15 66 18 95/64 (74) 08/17/17 08:15 66 18 95/64 (74) 08/17/17 08:15 99 21 08/17/17 08:10 68 22 109/58 (75) 08/17/17 08:10 68 22 109/58 (75) 08/17/17 08:05 66 22 83/60 (68) 08/17/17 08:05 66 22 83/60 (68) 08/17/17 08:05 66 22 83/60 (68) 08/17/17 08:00 72 22 91/63 (72) 08/17/17 08:00 97.6 72 22 91/63 (72) 08/17/17 08:00 72 22 91/63 (72) 08/17/17 07:59 72 23 91/55 (67) 08/17/17 07:57 68 39 74/48 (57) 08/17/17 07:55 74 28 64/54 (57) 08/17/17 07:50 70 25 83/62 (69) 08/17/17 07:45 72 24 86/58 (67) 08/17/17 07:40 72 22 93/61 (72) 08/17/17 07:35 70 27 83/58 (66) 08/17/17 07:30 70 24 94/62 (73) 08/17/17 07:25 72 25 93/60 (71) 08/17/17 07:20 72 24 80/59 (66) 08/17/17 07:15 74 22 87/56 (66) 08/17/17 07:10 76 25 08/17/17 07:05 74 26 08/17/17 07:00 74 29 81/58 (66) 08/17/17 06:00 78 08/17/17 06:00 78 24 79/53 (62) 08/17/17 05:00 118 29 80/55 (63) 08/17/17 04:17 128 30 71/54 (60) 08/17/17 04:00 128 08/17/17 03:32 139 74/55 08/17/17 03:00 138 31 68/54 (59) 08/17/17 02:14 99.0 98 31 97/54 97 08/17/17 02:00 116 32 88/61 (70) 08/17/17 02:00 98.4 103 36 88/61 97 08/17/17 02:00 116 08/17/17 01:49 97.9 116 34 99/59 98 08/17/17 01:36 98.3 120 30 76/50 98 08/17/17 00:00 92 08/17/17 00:00 98.0 92 30 94/67 (76) 08/16/17 23:01 85 91/67 08/16/17 22:00 80 23 73/53 (60) 08/16/17 22:00 80 08/16/17 21:00 88 28 81/54 (63) 08/16/17 20:14 96 21 08/16/17 20:00 97.6 80 20 76/54 (61) 08/16/17 20:00 80 08/16/17 20:00 97.6 80 20 76/54 (61) 98 08/16/17 19:00 82 21 08/16/17 18:48 78 24 96/60 (72) 93 08/16/17 18:00 84 08/16/17 17:48 97.2 80 11 84/60 (68) 90 08/16/17 17:47 08/16/17 17:30 72 16 84/60 (68) 96 Room Air 08/16/17 16:27 73 16 98/59 (72) 97 Room Air 08/16/17 15:31 85 16 133/77 (95) 97 Room Air 08/16/17 14:43 83 16 118/63 (81) 98 Room Air 08/16/17 13:52 88 16 122/60 (80) 99 Room Air 08/16/17 13:35 16 96 Room Air 08/16/17 13:35 86 16 96 Room Air 08/16/17 13:30 96 21 08/16/17 12:13 84 18 103/78 (86) 97 (Lydia Olson) -: 08/17/17 0415 08/17/17 0415 Microbiology 08/16/17 Aerobic Blood Culture, Received Pending 08/16/17 Anaerobic Blood Culture, Received Pending 08/16/17 Aerobic Blood Culture, Received Pending 08/16/17 Anaerobic Blood Culture, Received Pending 08/16/17 Urine Culture, Received Pending Imaging Last 72 hours Impressions Pelvis X-Ray 08/16/17 0000 Signed Impressions: Service Date/Time: Wednesday, August 16, 2017 13:15 - CONCLUSION: No acute abnormality. Juan Pablo Coleman Jr., MD Head CT 08/16/17 0000 Signed Impressions: Service Date/Time: Wednesday, August 16, 2017 12:18 - CONCLUSION: 1. No acute intracranial abnormality. 2. 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 3. Atrophy and chronic lacunar infarctions. Juan Pablo Coleman Jr., MD Chest X-Ray 08/16/17 0000 Signed Impressions: Service Date/Time: Wednesday, August 16, 2017 13:15 - CONCLUSION: 1. Vague area of nodularity projecting over the first rib on the left. A new finding from the prior study. I cannot exclude a parenchymal nodule. Consider a followup outpatient CT of the thorax. 2. Otherwise, no acute cardiopulmonary disease. Juan Pablo Coleman Jr., MD Tubes & Lines Comment urostomy, TLC right groin (Lydia Olson B. MASTER AUTOMOTIVE TECHNICIAN) Physical Exam General Appearance: Well Developed, No Acute Distress, Comfortable, Malnourished (Geovanni Olsonon B. MASTER AUTOMOTIVE TECHNICIAN) Eyes Eye Exam: Pupils Equal (Geovanni Olsonon B. MASTER AUTOMOTIVE TECHNICIAN) Throat Throat Remarks very dry mucous membranes (WhitneyLydia B. MASTER AUTOMOTIVE TECHNICIAN) Pulmonary Resp Exam: Clear Bilaterally, Breath Sounds Equal (Whitney,Lydia B. MASTER AUTOMOTIVE TECHNICIAN) Cardiology CV Exam: Good Perfusion, Irregular, Arrhythmia (Geovanni Olsonon B. MASTER AUTOMOTIVE TECHNICIAN) Gastrointestinal/Abdomen GI Exam: Soft, Non-Tender, Bowel Sounds Present (Geovanni Olsonon B. MASTER AUTOMOTIVE TECHNICIAN) Musculoskeletal MS Exam: Joints Intact, Normal Tone (Geovanni Olsonon B. MASTER AUTOMOTIVE TECHNICIAN) Integumentary Skin Exam: Warm, Dry, Intact (Lydia Olson B. MASTER AUTOMOTIVE TECHNICIAN) Extremeties Extremities Exam: No Edema, Pedal Pulses Palpable (Geovanni Olsonon B. MASTER AUTOMOTIVE TECHNICIAN) Neurologic Neuro Exam: Alert, Awake, Oriented, Speech Clear, Moving All Extremities (Geovanni Olsonon B. MASTER AUTOMOTIVE TECHNICIAN) Psychiatric Psych Exam: Appropriate Responses (Lydia Olson B. MASTER AUTOMOTIVE TECHNICIAN) Assessment/Plan Discussed Condition With: Patient Assessment Summary: SANDI/Acute Renal Failure, Hypotension, CKD Stage III Electrolyte Assessment: Hypernatremia, Metabolic Acidosis Problem List: (1) Acute renal failure ICD Codes: N17.9 - Acute kidney failure, unspecified Status: Acute Plan: SANDI on CKD 3, baseline creatinine is 1.7, GFR 37 SANDI is most likely from prerenal azotemia. Clinically he appears very dry. Urine myoglobin ordered and pending to evaluate for mild rhabdomyolysis although CK is not that elevated Hypotensive currently, started on pressors, maintain adequate MAP, >65mmHg Renal US is pending Urine culture is in progress, quantify proteinuria IVF changed to D5 with 100 mEq sodium bicarb @125ml/hr Monitor renal function daily, renally dose when appropriate, avoid nephrotoxic agents Follow urine output He is not in need of dialysis support at this time, monitor for changes (2) Metabolic acidosis ICD Codes: E87.2 - Acidosis Plan: High anion gap metabolic acidosis, due to reduction in GFR Continue bicarb gtt (3) Supratherapeutic INR ICD Codes: R79.1 - Abnormal coagulation profile Status: Acute Plan: INR 3.5 s/p vitamin K follow INR, resume Coumadin when clinically appropriate (4) Leukocytosis ICD Codes: D72.829 - Elevated white blood cell count, unspecified Status: Acute Plan: Improving with dilution Given Zosyn and vancomycin, rule out infection (Lydia Olson) Plan patient was seen and examined. Some improvement in renal function. Continue bicarbonate drip. Urine myoglobin is not a sensitive test for rhabdomyolysis and should not be ordered. Maintain MAP above 65. Avoid nephrotoxic agents. (Rajeev Gaona MD) Problem Qualifiers (1) Acute renal failure: Qualified Codes: N17.9 - Acute kidney failure, unspecified (2) Leukocytosis: Qualified Codes: D72.829 - Elevated white blood cell count, unspecified Lydia Olson Aug 17, 2017 08:53 Rajeev Gaona MD Aug 17, 2017 19:06
[2017-08-17] MEDS ORDERED: TERBUTALINE INJ 1 MG/ML AMP SQ PRN (09:00)
[2017-08-17] MEDS ORDERED: NOREPINEPHRINE-DEXTROSE DRIP 250 ML IV PRN (09:00)
--- NOTE | 2017-08-17 10:42 | RADRPT ---
EXAM DATE/TIME: 08/17/2017 08:16 [facility] COMPARISON: CT ABDOMEN & PELVIS W/O CONTRAST, August 17, 2017, 10:08. EXTERNAL COMPARISON : [facility], Ultrasound Kidney, February 28, 2017 INDICATIONS : Increased Bun and Creatine. MEDICAL HISTORY : Hypercholesterolemia. Atrial fibrillation. Bladder cancer. Parotid mass. Chemotherapy. Radiatio n therapy. SURGICAL HISTORY : None. Parotid surgery. Bladder surgery. ENCOUNTER: Initial ACUITY: 2 days PAIN SCORE: Nonresponsive. LOCATION: Bilateral flank MEASUREMENTS: RIGHT KIDNEY: 11.6 x 6.0 x 6.0 cm LEFT KIDNEY: 10.1 x 5.3 x 4.4 cm FINDINGS: RIGHT KIDNEY: CT examination demonstrated multiple renal calculi in the right kidney with moderate to severe hydron ephrosis and obstructing calculus in the proximal ureter. These findings are largely unchanged. A dom inant calculus in the inferior pole measuring 1.3 x 0.4 x 1.3 cm. Additional renal calculi are not do cumented. The proximal ureteral calculus is again noted measuring 1.5 x 0.5 x 1.1 cm. There is contin ued moderate-severe hydronephrosis on the right. A small cyst is noted in the superior pole measuring 1.2 x 0.8 x 1.1 cm. LEFT KIDNEY: CT examination demonstrated multiple calcified calculi on the left. A dominant calculus near the supe rior pole measuring 1.4 x 0.6 x 1.1 cm is identified. Remaining calculi are not documented on this ul trasound exam. There are 2 cysts demonstrated measuring 3.5 x 3.6 x 3.6 cm and 3.1 x 2.9 x 2.5 cm in the lower pole similar to recent CT exam. BLADDER: Decompressed. CONCLUSION: 1. Bilateral renal calculi with an obstructing 1.2 x 0.8 x 1.1 cm proximal right ureteral calculus. P ersistent moderate to severe right-sided hydronephrosis. Findings are consistent with CT exam althoug h some of the renal calculi are not documented on this ultrasound exam. 2. Simple bilateral renal cysts. Gerald Castrejon MD on August 17, 2017 at 10:31 Board Certified Radiologist. This report was verified electronically.
--- NOTE | 2017-08-17 12:10 | RADRPT ---
EXAM DATE/TIME: 08/17/2017 10:08 [facility] COMPARISON: No previous studies available for comparison. INDICATIONS : Acute renal failure. Evaluate for uroperitoneum or obstruction in urostomy. ORAL CONTRAST: No oral contrast ingested. RADIATION DOSE: 17.78 CTDIvol (mGy) MEDICAL HISTORY : Carcinoma, bladder. Cardiovascular disease Parotid mass. SURGICAL HISTORY : None. ENCOUNTER: Initial ACUITY: 2 days PAIN SCALE: 0/10 LOCATION: Abdomen. TECHNIQUE: Volumetric scanning of the abdomen and pelvis was performed. Using automated exposure control and ad justment of the mA and/or kV according to patient size, radiation dose was kept as low as reasonably achievable to obtain optimal diagnostic quality images. DICOM format image data is available electro nically for review and comparison. FINDINGS: Lung bases demonstrate some dependent atelectasis in the lungs. No acute findings in the liver, spleen, adrenals or pancreas. Multiple calcified gallstones. There is an obstructing 13 mm x 8 mm calculus in the proximal right ureter with severe right-sided hy dronephrosis. Numerous additional nonobstructing calculi are present in both kidneys ranging in size from one to about 10 mm in short axis diameter. There is a partial staghorn calculus in the left brandee l collecting system without hydronephrosis. No definite obstruction at the urostomy. Density near the urostomy is believed to represent surgical gustavo. There is mild anasarca. Trace free fluid is present in the pelvis. No free air. No bowel obstruction. No acute bony abnormalities. Multiple bulges noted in the abdominal aorta measuring up to 4 cm in di ameter. CONCLUSION: 1. 13 mm x 8 mm obstructing calculus in the proximal right ureter with moderate right hydronephrosis and numerous prominent nonobstructing renal calculi bilaterally including a partial staghorn on the l eft. 2. Mild anasarca. Trace free fluid in the pelvis. 3. 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 4. Multiple calcified gallstones. 5. Postoperative cystectomy with urostomy. Tarik Worrell MD on August 17, 2017 at 12:02 Board Certified Radiologist. This report was verified electronically.
[2017-08-17] MEDS: FAMOTIDINE 20 MG/2 ML VIAL IV PUSH SCH ×2 (12:18→21:19)
[2017-08-17 12:49] LABS: CORTISOL 77.4 MCG/DL
[2017-08-17 14:14] LABS: HEMATOCRIT 25.6 % (39.0-51.0); HEMOGLOBIN 8.2 GM/DL (13.0-17.0); MEAN CELL VOLUME 91.3 FL (80.0-100.0); MEAN CORPUSCULAR HEMOGLOBIN 29.3 PG (27.0-34.0); MEAN CORPUSCULAR HGB CONC 32.1 % (32.0-36.0); MEAN PLATELET VOLUME 8.5 FL (7.0-11.0); PLATELET COUNT 139 TH/MM3 (150-450); RED BLOOD COUNT 2.81 MIL/MM3 (4.50-5.90); RED CELL DISTRIBUTION WIDTH 14.7 % (11.6-17.2)
[2017-08-17 14:22] LABS: CALCIUM 7.7 MG/DL (8.5-10.1)
[2017-08-17 14:57] LABS: BICARBONATE 19.2 MEQ/L (21.0-32.0); CREATININE 5.1 MG/DL (0.60-1.30)
[2017-08-18] VITALS (24 sets, daily range): BP systolic 106–168; BP diastolic 69–85; PULSE 60–78; RESP 15–29; TEMP 97.2–97.9; O2SAT 95–100
[2017-08-18] MEDS: SODIUM BICARBONATE 8.4% INJ 100 MEQ in DEXTROSE 5% IN WATE 1000ML INJ 1,000 ML IV SCH ×4 (02:06→09:24)
[2017-08-18] MEDS: PHENYLEPHRINE INJ 160 MG in DEXTROSE 5% IN WATE 500 ML INJ 484 ML IV PRN ×2 (02:11)
[2017-08-18] MEDS ORDERED: CHLORHEXIDINE GLUCONATE 2 % 1 PACK (2 CLOTHS)(extra cloths) TOPICAL PRN (03:15)
[2017-08-18] MEDS: CHLORHEXIDINE GLUCONATE 2 % 1 PACK (2 CLOTHS)(taper/protocol) TOPICAL SCH (04:00)
[2017-08-18 04:17] LABS: HEMATOCRIT 24.7 % (39.0-51.0); HEMOGLOBIN 8.2 GM/DL (13.0-17.0); MEAN CELL VOLUME 88.7 FL (80.0-100.0); MEAN CORPUSCULAR HEMOGLOBIN 29.5 PG (27.0-34.0); MEAN CORPUSCULAR HGB CONC 33.3 % (32.0-36.0); MEAN PLATELET VOLUME 9.8 FL (7.0-11.0); PLATELET COUNT 119 TH/MM3 (150-450); RED BLOOD COUNT 2.79 MIL/MM3 (4.50-5.90); RED CELL DISTRIBUTION WIDTH 15.1 % (11.6-17.2); WHITE BLOOD COUNT 19.1 TH/MM3 (4.0-11.0)
[2017-08-18 04:29] LABS: INTERNATIONAL NORMALIZED RATIO 1.5 RATIO; PROTHROMBIN TIME - PATIENT 15.3 SEC (9.8-11.6)
[2017-08-18 04:46] LABS: BICARBONATE 22.9 MEQ/L (21.0-32.0); CALCIUM 7.7 MG/DL (8.5-10.1); CREATININE 4.9 MG/DL (0.60-1.30); PHOSPHORUS 3.4 MG/DL (2.5-4.9)
[2017-08-18] MEDS: HYDROCORTISONE SOD SUCCINATE 100 MG VIAL IV PUSH SCH ×2 (06:41→19:32)
[2017-08-18] MEDS: PIPERACIL-TAZO 2.25 GM PREMIX 50 ML IV SCH ×3 (08:15→23:04)
[2017-08-18] MEDS: SODIUM CHLORIDE 0.9% FLUSH 10 ML FLUSH IV FLUSH SCH ×2 (08:15→19:31)
[2017-08-18] MEDS ORDERED: INFLUENZA VIRUS VACCINE (QUADRIVALENT) 0.5 ML SYR IM ONE (10:00)
[2017-08-18] MEDS ORDERED: MIDAZOLAM HCL 5 MG/5 ML VIAL ONE (10:09)
[2017-08-18] MEDS ORDERED: GLUCAGON 1 MG/ML VIAL OTHER PRN (10:45)
[2017-08-18] MEDS ORDERED: DEXTROSE 50% IN WATER 50 ML VIAL(D50) IV PUSH PRN (10:45)
--- NOTE | 2017-08-18 10:58 | HHI.CCPN ---
Subjective Remarks/Hospital Course This is a 77yM with history of afib on coumadin, liver cancer, parotid cancer, bladder cancer s/p ileostomy and stage IV CKD (baseline Cr 1.7) who presented after he had a fall with weakness at home. he was brought in by [facility] and in the ED he was found to be in acute renal failure, hypotensive, severely dehydrated. He was admitted for ivf and nephrology consultation. despite 3L ivf resuscitation, he was persistently hypotensive. His anion gap is worsening, and his serum bicarbonate is falling despite fluid resuscitation. He was also started on phenylephrine for vasopressor support. During the night, his became worsening tachycardic and diltiazem was started. Critical care medicine is consulted to evaluate and manage his worsening shock, his hypotension, and his acute kidney injury. Unfortunately, the patient is encephalopathic and a very poor historian. He does reliably deny chest or abdominal pain, but the remainder of any history is mostly unobtainable due to his somnolence and inattention. The remainder of the history is obtained from the medical record. 08/18 Patient is awake and alert, on Neosyn 40 mics. For perc nephrostomy tube placement by IR today. BC : GNR on 08/16 ( 4 bottles) Objective Vital Signs Date Time Temp Pulse Resp B/P (MAP) Pulse Ox O2 Delivery O2 Flow Rate FiO2 08/18/17 09:00 71 22 142/79 (100) 99 08/18/17 08:00 97.5 08/18/17 08:00 21 08/16/17 17:30 Room Air Intake and Output 08/18/17 08/18/17 08/19/17 08:00 16:00 00:00 Intake Total 1600 ml Output Total 650 ml Balance 950 ml Result Diagram: 08/18/17 0345 08/18/17 0345 Other Results Laboratory Tests Test 08/17/17 14:10 08/18/17 03:00 08/18/17 03:45 White Blood Count 29.0 TH/MM3 19.1 TH/MM3 Red Blood Count 2.81 MIL/MM3 2.79 MIL/MM3 Hemoglobin 8.2 GM/DL 8.2 GM/DL Hematocrit 25.6 % 24.7 % Mean Corpuscular Volume 91.3 FL 88.7 FL Mean Corpuscular Hemoglobin 29.3 PG 29.5 PG Mean Corpuscular Hemoglobin Concent 32.1 % 33.3 % Red Cell Distribution Width 14.7 % 15.1 % Platelet Count 139 TH/MM3 119 TH/MM3 Mean Platelet Volume 8.5 FL 9.8 FL Blood Urea Nitrogen 131 MG/DL 133 MG/DL Creatinine 5.10 MG/DL 4.90 MG/DL Random Glucose 203 MG/DL 234 MG/DL Calcium Level 7.7 MG/DL 7.7 MG/DL Sodium Level 145 MEQ/L 146 MEQ/L Potassium Level 4.1 MEQ/L 3.7 MEQ/L Chloride Level 113 MEQ/L 112 MEQ/L Carbon Dioxide Level 19.2 MEQ/L 22.9 MEQ/L Anion Gap 13 MEQ/L 11 MEQ/L Estimat Glomerular Filtration Rate 11 ML/MIN 12 ML/MIN Nasal Screen MRSA (PCR) MRSA NOT DETECTED Prothrombin Time 15.3 SEC Prothromb Time International Ratio 1.5 RATIO Activated Partial Thromboplast Time 36.0 SEC Phosphorus Level 3.4 MG/DL Magnesium Level 2.0 MG/DL Imaging Last Impressions Renal Ultrasound 08/17/17 0000 Signed Impressions: Service Date/Time: Thursday, August 17, 2017 08:16 - CONCLUSION: 1. Bilateral renal calculi with an obstructing 1.2 x 0.8 x 1.1 cm proximal right ureteral calculus. Persistent moderate to severe right-sided hydronephrosis. Findings are consistent with CT exam although some of the renal calculi are not documented on this ultrasound exam. 2. Simple bilateral renal cysts. Gerald Castrejon MD Abdomen/Pelvis CT 08/17/17 0000 Signed Impressions: Service Date/Time: Thursday, August 17, 2017 10:08 - CONCLUSION: 1. 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 2. Mild anasarca. Trace free fluid in the pelvis. 3. 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 4. Multiple calcified gallstones. 5. Postoperative cystectomy with urostomy. Tarik Worrell MD Pelvis X-Ray 08/16/17 0000 Signed Impressions: Service Date/Time: Wednesday, August 16, 2017 13:15 - CONCLUSION: No acute abnormality. Juan Pablo Coleman Jr., MD Head CT 08/16/17 0000 Signed Impressions: Service Date/Time: Wednesday, August 16, 2017 12:18 - CONCLUSION: 1. No acute intracranial abnormality. 2. 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 3. Atrophy and chronic lacunar infarctions. Juan Pablo Coleman Jr., MD Chest X-Ray 08/16/17 0000 Signed Impressions: Service Date/Time: Wednesday, August 16, 2017 13:15 - CONCLUSION: 1. Vague area of nodularity projecting over the first rib on the left. A new finding from the prior study. I cannot exclude a parenchymal nodule. Consider a followup outpatient CT of the thorax. 2. Otherwise, no acute cardiopulmonary disease. Juan Pablo Coleman Jr., MD Objective Remarks GENERAL: Patient is 77 yo lying in bed in NAD SKIN: Warm and dry. HEAD: Normocephalic. EYES: No scleral icterus. No injection or drainage. NECK: Supple, trachea midline. No JVD or lymphadenopathy. CARDIOVASCULAR: Regular rate and rhythm without murmurs, gallops, or rubs. RESPIRATORY: Breath sounds equal bilaterally. No accessory muscle use. GASTROINTESTINAL: Abdomen soft, non-tender, nondistended. RLQ ileal conduit/ urostomy MUSCULOSKELETAL: No cyanosis, or edema. Neuro: Awake and alert. A/P Assessment and Plan Neuro: Metabolic Encephalopathy - likely secondary to uremia -Monitor neuro status, avoid sedatives Respiratory: Atelectasis - Continue with oxygen keep sat >92% -Bronchodilators Cardiovascular: Atrial Fibrillation with Rapid Ventricular Response Hypovolemic Shock -Wean off Neosyn keep MAP>65mmHg. Lactic acid 1.4 -Taper stress dose steroids- Decrease HC 50mg Q12 Renal: Acute kidney injury superimposed on Chronic Kidney Disease stage IV Right hydronephrosis- 2nd obstructing calculi in right ureter - Monitor renal function, I/O's, avoid nephrotoxins -For perc nephrostomy tube placement by IR today. -Renal is following- Dr. Gaona. On bicarb drip. -Cr: 4.9 from 5.10 Urology eval. GI: NPO for procedure today. On Pepcid 10mg Q12 for GI prophylaxis ID Gram negative bacteremia UTI- BC 08/16 : GNR, E.coli, Proteus Urine cx 08/16: E.coli, Providencia Continue with abx ( Zosyn)monitor for signs of infections ( Fver, WBC) ID eval, check BC x 2 sets today Heme Anemia- unclear etiology, likely chronic disease Supratherapeutic INR Coumadin Coagulopathy Thrombocytopenia Leukocytosis -Monitor CBC, coags- INR 1.5 today - thrombocytopenia likely related to consumption. low probability HIT. Endocrine: -Cortisol level 77 - Decrease hydrocortisone 50mg iv q12h -SSI for glycemic control. Prophylaxis: SCDs INR: 1.5 today- hold off on AC prophylaxis as patient is undergoing perc nephrostomy tube placement today Pepcid iv Lines: Right Femoral line placed by ED 08/17 Level 3 Caleb Brown MD Aug 18, 2017 10:58
--- NOTE | 2017-08-18 11:03 | PD.RAD ---
Post Procedure Progress Note Pre Procedure Diagnosis: (1) Acute pyonephrosis (2) Acute renal failure superimposed on stage 4 chronic kidney disease Post Procedure Diagnosis: (1) Acute pyonephrosis Procedure Date: Aug 18, 2017 Supervising Radiologist: Gerald Castrejon Proceduralist/Assist: Gaurang Landers, RT(R), Jonathan Grace RT(R) Anesthesia: Conscious Sedation Plan of Activity Patient to Unit: ROPU Patient Condition: Good See PACS Report for procedural detail/treatment Gerald Castrejon MD Aug 18, 2017 11:03
[2017-08-18] MEDS ORDERED: IOHEXOL 350 MG/ML 50 ML BTL (for RAD DIAG) OTHER ONE (11:15)
--- NOTE | 2017-08-18 11:33 | RADRPT ---
EXAM DATE/TIME: 08/18/2017 09:59 [facility] COMPARISON: No previous studies available for comparison. INDICATIONS : 77-year-old male with history of sepsis and right ureteral obstruction. MEDICAL HISTORY : Atrial fibrillation Hyperlipidemia Chronic kidney disease stage IV History of bladder cancer History of parotid gland cancer SURGICAL HISTORY : Ileostomy Parotid surgery ENCOUNTER: Initial ACUITY: 3 days PAIN SCORE: 0/10 LOCATION: n/a FLUORO TIME: 2.2 minutes IMAGE SERIES: 0 SEDATION TIME: 30 minutes CONTRAST: 5 cc Omnipaque (iohexol) 350 MEDICATION(S): 1.) 1.5 mg midazolam (Versed) IV 2.) 100 mcg fentanyl (Sublimaze) IV DEVICE(S): 1.) 8.3FR 25CM EXPEL PROCEDURE : 1. Ultrasound-guided puncture of the kidney. 2. Limited antegrade percutaneous pyelogram. 3. Percutaneous nephrostomy placement. 4. Conscious sedation with continuous EKG and oximetry monitoring. The risks, benefits and alternatives to the procedure were explained and verbal and written consent w as obtained. The site was prepped in sterile fashion. Full sterile technique was used, including ca p, mask, sterile gloves and gown and a large sterile sheet. Hand hygiene and 2% chlorhexidine and/or betadine/alcohol prep was utilized per protocol for cutaneous antisepsis. Sterile gel and sterile probe cover were utilized for ultrasound guidance. The skin and subcutaneous tissues were infiltrate d with local anesthetic solution. With ultrasound and fluoroscopic guidance the selected kidney was punctured. Approximately 3 cc of co ntrast was slowly injected confirming position with a filling defect in the proximal ureter correspon ding to patient's known proximal ureteral calculus. Additional contrast was not injected secondary to concern for pressure rising the infected system. Serial dilatation was performed and a prescribed ne phrostomy tube was placed within the renal pelvis and sutured in place. Conscious sedation was performed with the prescribed dosages and duration as above in the presence of an independent trained radiology nurse to assist in the monitoring of the patient. EKG and oximetry remained stable throughout the procedure. The patient tolerated the procedure well and there were n o complications. The patient was sent to post anesthesia recovery in stable condition. CONCLUSION: 1. Uncomplicated nephrostomy tube placement. Approximately 40 cc of thick odorous purulent fluid was removed from the collecting system. Large sample submitted for a Gram stain and C&S. Gerald Castrejon MD on August 18, 2017 at 11:28 Board Certified Radiologist. This report was verified electronically.
--- NOTE | 2017-08-18 12:36 | HHI.NPPN ---
Subjective General Problems: Anemia Renal Failure: Chronic, Acute, Stage III Interval History Transferred to [facility] in [facility]. Imaging showed right hydronephrosis. He had percutaneous nephrostomy tube placed today. Renal function improved slightly. He is awake, slightly confused. Off blood pressure support. His blood cultures are positive x 4 bottles, GNR. (Lydia Olson) Review of Systems General Constitutional: Fatigue (Lydia Olson) Objective Data Data 08/18/17 08/19/17 19:00 07:00 Output Total 80 ml Balance -80 ml Drainage Total 80 ml Vital Signs Date Time Temp Pulse Resp B/P (MAP) Pulse Ox O2 Delivery O2 Flow Rate FiO2 08/18/17 09:00 71 22 142/79 (100) 99 08/18/17 08:00 97.5 76 20 135/82 (99) 98 08/18/17 08:00 97 21 08/18/17 07:00 78 27 144/80 (101) 95 08/18/17 07:00 78 08/18/17 06:00 69 29 168/77 (107) 99 08/18/17 05:00 72 19 152/77 (102) 99 08/18/17 04:00 97.7 74 20 145/77 (99) 99 08/18/17 02:11 68 139/67 08/18/17 01:47 68 21 128/84 (99) 100 08/18/17 01:32 64 18 141/82 (101) 99 08/18/17 01:17 64 19 127/73 (91) 98 08/18/17 01:02 64 17 133/81 (98) 95 08/18/17 00:47 66 19 106/78 (87) 98 08/18/17 00:32 66 20 131/76 (94) 98 08/18/17 00:02 97.9 64 20 120/71 (87) 99 08/18/17 00:00 66 08/17/17 23:47 62 25 118/70 (86) 99 08/17/17 23:32 66 20 113/73 (86) 96 08/17/17 23:17 66 21 127/65 (85) 100 08/17/17 23:02 64 20 120/67 (84) 98 08/17/17 22:47 64 32 114/78 (90) 99 17 22:31 64 31 119/78 (92) 99 17 22:16 68 27 110/75 (87) 98 08/17/17 22:01 66 23 124/76 (92) 98 17 22:00 66 08/17/17 21:46 66 29 119/82 (94) 87 17 21:31 64 20 120/76 (91) 95 08/17/17 21:16 64 19 128/82 (97) 91 08/17/17 21:01 62 27 122/87 (99) 100 08/17/17 20:46 64 20 122/80 (94) 98 08/17/17 20:31 60 18 117/83 (94) 100 08/17/17 20:16 64 19 133/79 (97) 97 08/17/17 20:10 98 21 08/17/17 20:01 97.5 64 28 134/76 (95) 95 08/17/17 20:00 60 08/17/17 19:46 68 23 131/81 (98) 95 08/17/17 19:31 64 24 131/79 (96) 96 08/17/17 19:16 64 26 121/81 (94) 97 08/17/17 19:01 64 20 124/83 (97) 98 08/17/17 17:31 62 21 109/73 (85) 97 08/17/17 17:16 62 21 119/67 (84) 97 08/17/17 17:01 58 20 114/80 (91) 98 08/17/17 16:46 62 18 117/74 (88) 97 08/17/17 16:31 60 19 110/76 (87) 98 08/17/17 16:16 64 27 117/77 (90) 95 17 16:16 64 27 117/77 (90) 95 17 16:01 64 20 139/82 (101) 99 17 15:46 64 28 123/78 (93) 98 08/17/17 15:31 62 29 123/76 (92) 99 08/17/17 15:16 66 13 137/81 (99) 98 08/17/17 15:01 64 19 139/88 (105) 99 08/17/17 15:00 57 08/17/17 14:46 66 21 144/80 (101) 99 08/17/17 14:31 62 23 130/83 (99) 99 08/17/17 14:16 64 25 139/81 (100) 99 08/17/17 14:01 62 21 132/82 (99) 100 08/17/17 13:01 64 21 140/84 (102) 100 08/17/17 12:46 66 22 134/84 (101) 99 08/17/17 12:31 66 22 127/73 (91) 99 (Lydia OlsonP) -: 08/18/17 0345 08/18/17 0345 Microbiology 08/18/17 Gram Stain, Received Pending 08/18/17 Body Fluid Culture, Received Pending Imaging Last 72 hours Impressions Nephrostomy 08/18/17 0000 Signed Impressions: Service Date/Time: July 09:59 - CONCLUSION: 1. Uncomplicated nephrostomy tube placement. Approximately 40 cc of thick odorous purulent fluid was removed from the collecting system. Large sample submitted for a Gram stain and C&S. Gerald Castrejon MD Renal Ultrasound 08/17/17 0000 Signed Impressions: Service Date/Time: Thursday, August 17, 2017 08:16 - CONCLUSION: 1. Bilateral renal calculi with an obstructing 1.2 x 0.8 x 1.1 cm proximal right ureteral calculus. Persistent moderate to severe right-sided hydronephrosis. Findings are consistent with CT exam although some of the renal calculi are not documented on this ultrasound exam. 2. Simple bilateral renal cysts. Gerald Castrejon MD Abdomen/Pelvis CT 08/17/17 0000 Signed Impressions: Service Date/Time: Thursday, August 17, 2017 10:08 - CONCLUSION: 1. 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 2. Mild anasarca. Trace free fluid in the pelvis. 3. 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 4. Multiple calcified gallstones. 5. Postoperative cystectomy with urostomy. Tarik Worrell MD Pelvis X-Ray 08/16/17 0000 Signed Impressions: Service Date/Time: Wednesday, August 16, 2017 13:15 - CONCLUSION: No acute abnormality. Juan Pablo Coleman Jr., MD Head CT 08/16/17 0000 Signed Impressions: Service Date/Time: Wednesday, August 16, 2017 12:18 - CONCLUSION: 1. No acute intracranial abnormality. 2. 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 3. Atrophy and chronic lacunar infarctions. Juan Pablo Coleman Jr., MD Chest X-Ray 08/16/17 0000 Signed Impressions: Service Date/Time: Wednesday, August 16, 2017 13:15 - CONCLUSION: 1. Vague area of nodularity projecting over the first rib on the left. A new finding from the prior study. I cannot exclude a parenchymal nodule. Consider a followup outpatient CT of the thorax. 2. Otherwise, no acute cardiopulmonary disease. Juan Pablo Coleman Jr., MD Tubes & Lines Comment urostomy, TLC right groin, right nephrostomy tube (Lydia Olson. PIER MASTER ASSISTANT) Physical Exam General Appearance: Well Developed, No Acute Distress, Comfortable, Malnourished (Lydia Olson B. PIER MASTER ASSISTANT) Eyes Eye Exam: Pupils Equal (Lydia Olson B. PIER MASTER ASSISTANT) Throat Throat Remarks very dry mucous membranes (Lydia Olson B. PIER MASTER ASSISTANT) Pulmonary Resp Exam: Clear Bilaterally, Breath Sounds Equal (Lydia Olson B. PIER MASTER ASSISTANT) Cardiology CV Exam: Good Perfusion, Irregular, Arrhythmia (Lydia Olson B. PIER MASTER ASSISTANT) Gastrointestinal/Abdomen GI Exam: Soft, Non-Tender, Bowel Sounds Present (Lydia Olson B. PIER MASTER ASSISTANT) Genitourinary Remarks right nephrostomy tube with pink tinged urine in bag (Lydia Olson B. PIER MASTER ASSISTANT) Musculoskeletal MS Exam: Joints Intact, Normal Tone (Lydia Olson B. PIER MASTER ASSISTANT) Integumentary Skin Exam: Warm, Dry, Intact (Lydia Olson B. PIER MASTER ASSISTANT) Extremeties Extremities Exam: No Edema, Pedal Pulses Palpable (Lydia Olson B. PIER MASTER ASSISTANT) Neurologic Neuro Exam: Alert, Awake, Oriented, Speech Clear, Moving All Extremities (Lydia Olson) Psychiatric Psych Exam: Appropriate Responses (Lydia Olson) Assessment/Plan Discussed Condition With: Patient Assessment Summary: SANDI/Acute Renal Failure, Hypotension, CKD Stage III Electrolyte Assessment: Hypernatremia, Metabolic Acidosis Problem List: (1) Acute renal failure ICD Codes: N17.9 - Acute kidney failure, unspecified Status: Acute Plan: SANDI on CKD 3, baseline creatinine is 1.7, GFR 37 SANDI multifactorial: obstructive uropathy *(R) due to renal stones, s/p percutaneous nephrostomy tube placement. In addition he is septic, hypotensive (improving), and had a component of prerenal azotemia due to dehydration. BP improving, pressors on hold, maintain adequate MAP, >65mmHg Continue IVF, change to 1/2 NS @ 50 cc/hr. Monitor renal function daily, renally dose when appropriate, avoid nephrotoxic agents Follow urine output PO fluids encouraged. (2) Metabolic acidosis ICD Codes: E87.2 - Acidosis Plan: Improving High anion gap metabolic acidosis, due to reduction in GFR Continue to monitor renal panel (3) Supratherapeutic INR ICD Codes: R79.1 - Abnormal coagulation profile Status: Acute Plan: INR improved, s/p vitamin K follow INR, resume Coumadin (4) Leukocytosis ICD Codes: D72.829 - Elevated white blood cell count, unspecified Status: Acute Plan: He is septic, source UTI and pyonephritis He had purulent fluid removed from kidney today in IR during nephrostomy tube placement On Zosyn Monitor clinically (Lydia Olson) Plan patient was seen and examined in the [facility] before nephrostomy placement by me. SANDI due to obstructive uropathy, dehydration and sepsis. Continue supportive care. Monitor urine output and renal function. Avoid nephrotoxic agents. (Rajeev Gaona MD) Problem Qualifiers (1) Acute renal failure: Qualified Codes: N17.9 - Acute kidney failure, unspecified (2) Leukocytosis: Qualified Codes: D72.829 - Elevated white blood cell count, unspecified Lydia Olson Aug 18, 2017 12:36 Rajeev Gaona MD Aug 19, 2017 09:54
[2017-08-18] MEDS: INSULIN NovoLIN REGULAR SUPPLEMENTAL SCALE SQ SCH ×4 (12:41→23:15)
[2017-08-18] MEDS: FAMOTIDINE 20 MG/2 ML VIAL IV PUSH SCH ×2 (12:41→23:04)
--- NOTE | 2017-08-18 13:53 | PD.ID.CON ---
History of Present Illness Service ID Consult Requested By Dr Mancera Reason for Consult gram negative bacteremia Primary Care Physician Scott [facility] Diagnoses: History of Present Illness patient is a very poor historian.history is obtained from the medical record. 77yM with bladder cancer s/p ileostomy and stage IV CKD (baseline Cr 1.7) who presented after he had a fall with weakness at home. he was brought in by [facility] He was found to be in acute renal failure, hypotensive, severely dehydrated. Fluid resucuitates and was on pressors, now off He was admitted for ivf and nephrology consultation. CT showed 13 mm x 8 mm obstructing calculus in the proximal right ureter with moderate right hydronephrosis Sp R nephrostomy placement today with approximately 40 cc of thick odorous purulent fluid was removed from the collecting system Pt is growing multiple gram negative organism from blood and urine cultures Past Family Social History Allergies: Coded Allergies: crab (Unverified Allergy, Intermediate, Rash, 08/16/17) Blue Shell crab causes severe rash all over face and neck. Needs PCN to help clear it up. Patient CAN eat Shrimp and clams, scallops, oysters without problems. Past Medical History Atrial fibrillation Hyperlipidemia Chronic kidney disease stage IV History of bladder cancer History of parotid gland cancer Past Surgical History Ileostomy Parotid surgery Active Ordered Medications Medications where reviewed in EMR Antibiotics Include: geoffrey Family History father having heart disease Social History former smoker, quit 20 yrs ago, prior to that he smoked since18 years old. Patient has have history of alcohol use of 8-9 cans of beer daily, however he states that he has not been drinking any alcohol recently. No indication of a illicit drug use Physical Exam Vital Signs Vital Signs Date Time Temp Pulse Resp B/P (MAP) Pulse Ox O2 Delivery O2 Flow Rate FiO2 08/18/17 09:00 71 22 142/79 (100) 99 08/18/17 08:00 97.5 76 20 135/82 (99) 98 08/18/17 08:00 97 21 08/18/17 07:00 78 27 144/80 (101) 95 08/18/17 07:00 78 08/18/17 06:00 69 29 168/77 (107) 99 08/18/17 05:00 72 19 152/77 (102) 99 08/18/17 04:00 97.7 74 20 145/77 (99) 99 08/18/17 02:11 68 139/67 08/18/17 01:47 68 21 128/84 (99) 100 08/18/17 01:32 64 18 141/82 (101) 99 08/18/17 01:17 64 19 127/73 (91) 98 08/18/17 01:02 64 17 133/81 (98) 95 08/18/17 00:47 66 19 106/78 (87) 98 08/18/17 00:32 66 20 131/76 (94) 98 08/18/17 00:02 97.9 64 20 120/71 (87) 99 08/18/17 00:00 66 08/17/17 23:47 62 25 118/70 (86) 99 08/17/17 23:32 66 20 113/73 (86) 96 08/17/17 23:17 66 21 127/65 (85) 100 08/17/17 23:02 64 20 120/67 (84) 98 08/17/17 22:47 64 32 114/78 (90) 99 08/17/17 22:31 64 31 119/78 (92) 99 08/17/17 22:16 68 27 110/75 (87) 98 08/17/17 22:01 66 23 124/76 (92) 98 08/17/17 22:00 66 08/17/17 21:46 66 29 119/82 (94) 87 08/17/17 21:31 64 20 120/76 (91) 95 08/17/17 21:16 64 19 128/82 (97) 91 08/17/17 21:01 62 27 122/87 (99) 100 08/17/17 20:46 64 20 122/80 (94) 98 08/17/17 20:31 60 18 117/83 (94) 100 08/17/17 20:16 64 19 133/79 (97) 97 08/17/17 20:10 98 21 08/17/17 20:01 97.5 64 28 134/76 (95) 95 08/17/17 20:00 60 08/17/17 19:46 68 23 131/81 (98) 95 08/17/17 19:31 64 24 131/79 (96) 96 08/17/17 19:16 64 26 121/81 (94) 97 12/20/17 19:01 64 20 124/83 (97) 98 08/17/17 17:31 62 21 109/73 (85) 97 08/17/17 17:16 62 21 119/67 (84) 97 08/17/17 17:01 58 20 114/80 (91) 98 08/17/17 16:46 62 18 117/74 (88) 97 08/17/17 16:31 60 19 110/76 (87) 98 08/17/17 16:16 64 27 117/77 (90) 95 08/17/17 16:16 64 27 117/77 (90) 95 08/17/17 16:01 64 20 139/82 (101) 99 08/17/17 15:46 64 28 123/78 (93) 98 08/17/17 15:31 62 29 123/76 (92) 99 08/17/17 15:16 66 13 137/81 (99) 98 08/17/17 15:01 64 19 139/88 (105) 99 08/17/17 15:00 57 08/17/17 14:46 66 21 144/80 (101) 99 08/17/17 14:31 62 23 130/83 (99) 99 08/17/17 14:16 64 25 139/81 (100) 99 08/17/17 14:01 62 21 132/82 (99) 100 Physical Exam CONSTITUTIONAL/GENERAL: This is an adequately nourished patient, in no apparent distress. TUBES/LINES/DRAINS: SKIN: No jaundice, rashes, or lesions. Skin temperature appropriate. Not diaphoretic. HEAD: Atraumatic. Normocephalic. EYES: Pupils equal and round and reactive. Extraocular motions intact. No scleral icterus. No injection or drainage. Fundi not examined. ENT: Hearing grossly normal. Nose without bleeding or purulent drainage. Throat without visible erythema, exudates, masses, or lesions. NECK: Trachea midline. Supple, nontender. No palpable thyroid enlargement or nodularity. CARDIOVASCULAR: Regular rate and rhythm without murmurs, gallops, or rubs. No JVD. Peripheral pulses symmetric. RESPIRATORY/CHEST: Symmetric, unlabored respirations. Clear to auscultation. Breath sounds equal bilaterally. No wheezes, rales, or rhonchi. GASTROINTESTINAL: Abdomen soft, non-tender, nondistended. No hepato-splenomegaly , or palpable masses. No guarding. Bowel sounds present. GENITOURINARY: Ileostomy in RLQ, pink, foul smelling urine in the ostomy bag R nephrostomy in place with quite cloudy appearing urine in bag MUSCULOSKELETAL: Extremities without clubbing, cyanosis, or edema. No joint tenderness or effusion noted. No calf tenderness. No mottling or clubbing. LYMPHATICS: No palpable cervical or supraclavicular adenopathy. NEUROLOGICAL: Lethargic, arousable. Motor and sensory grossly within normal limits. Follows commands. Moves all extremities. PSYCHIATRIC: No obvious anxiety/depression. no apparent hallucinations or other psychotic thought process. Laboratory Laboratory Tests Test 08/17/17 14:10 08/18/17 03:00 08/18/17 03:45 White Blood Count 29.0 19.1 Red Blood Count 2.81 2.79 Hemoglobin 8.2 8.2 Hematocrit 25.6 24.7 Mean Corpuscular Volume 91.3 88.7 Mean Corpuscular Hemoglobin 29.3 29.5 Mean Corpuscular Hemoglobin Concent 32.1 33.3 Red Cell Distribution Width 14.7 15.1 Platelet Count 139 119 Mean Platelet Volume 8.5 9.8 Blood Urea Nitrogen 131 133 Creatinine 5.10 4.90 Random Glucose 203 234 Calcium Level 7.7 7.7 Sodium Level 145 146 Potassium Level 4.1 3.7 Chloride Level 113 112 Carbon Dioxide Level 19.2 22.9 Anion Gap 13 11 Estimat Glomerular Filtration Rate 11 12 Nasal Screen MRSA (PCR) MRSA NOT DETECTED Prothrombin Time 15.3 Prothromb Time International Ratio 1.5 Activated Partial Thromboplast Time 36.0 Phosphorus Level 3.4 Magnesium Level 2.0 Date/Time Source Procedure Growth Status 08/16/17 15:00 Blood Peripheral Aerobic Blood Culture - Preliminary Escherichia Coli Proteus Species Resulted 08/16/17 15:00 Anaerobic Blood Culture - Preliminary Gram Negative Marlon Resulted 08/18/17 10:50 Fluid Other Gram Stain Pending Received 08/18/17 10:50 Fluid Other Body Fluid Culture Pending Received 08/16/17 17:00 Urine Clean Catch Urine Culture - Final Providencia Stuartii Escherichia Coli Complete Result Diagram: 08/18/17 0345 08/18/17 034 Imaging Last Impressions Nephrostomy 08/18/17 0000 Signed Impressions: Service Date/Time: July 09:59 - CONCLUSION: 1. Uncomplicated nephrostomy tube placement. Approximately 40 cc of thick odorous purulent fluid was removed from the collecting system. Large sample submitted for a Gram stain and C&S. Gerald Castrejon MD Renal Ultrasound 08/17/17 0000 Signed Impressions: Service Date/Time: Thursday, August 17, 2017 08:16 - CONCLUSION: 1. Bilateral renal calculi with an obstructing 1.2 x 0.8 x 1.1 cm proximal right ureteral calculus. Persistent moderate to severe right-sided hydronephrosis. Findings are consistent with CT exam although some of the renal calculi are not documented on this ultrasound exam. 2. Simple bilateral renal cysts. Gerald Castrejon MD Abdomen/Pelvis CT 08/17/17 0000 Signed Impressions: Service Date/Time: Thursday, August 17, 2017 10:08 - CONCLUSION: 1. 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 2. Mild anasarca. Trace free fluid in the pelvis. 3. 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 4. Multiple calcified gallstones. 5. Postoperative cystectomy with urostomy. Tarik Worrell MD Pelvis X-Ray 08/16/17 0000 Signed Impressions: Service Date/Time: Wednesday, August 16, 2017 13:15 - CONCLUSION: No acute abnormality. Juan Pablo Coleman Jr., MD Head CT 08/16/17 0000 Signed Impressions: Service Date/Time: Wednesday, August 16, 2017 12:18 - CONCLUSION: 1. No acute intracranial abnormality. 2. 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 3. Atrophy and chronic lacunar infarctions. Juan Pablo Coleman Jr., MD Chest X-Ray 08/16/17 0000 Signed Impressions: Service Date/Time: Wednesday, August 16, 2017 13:15 - CONCLUSION: 1. Vague area of nodularity projecting over the first rib on the left. A new finding from the prior study. I cannot exclude a parenchymal nodule. Consider a followup outpatient CT of the thorax. 2. Otherwise, no acute cardiopulmonary disease. Juan Pablo Coleman Jr., MD Assessment and Plan Assessment and Plan Sepsis Severe complicated UTI in settings of obstructive uropathy - sp R nephrostomy placement by IR Pt with ileostomy cont zosyn add levaquine will adjust abx per clx report fu with urologist Discussed Condition With Della Chu MD Aug 18, 2017 13:53
[2017-08-18] MEDS ORDERED: SODIUM CHLOR 0.45% 1000 ML INJ 1,000 ML IV SCH (15:00)
--- NOTE | 2017-08-18 15:33 | PD.CONS ---
HPI Service Urology Consult Requested By Primary Care Physician Scott [facility] Diagnosis: (1) Acute renal failure superimposed on stage 4 chronic kidney disease ICD Code: N17.9 - Acute kidney failure, unspecified; N18.4 - Chronic kidney disease, stage 4 (severe) (2) Metabolic acidosis ICD Code: E87.2 - Acidosis (3) Leukocytosis ICD Code: D72.829 - Elevated white blood cell count, unspecified (4) Supratherapeutic INR ICD Code: R79.1 - Abnormal coagulation profile (5) Fall at home ICD Code: W19.XXXA - Unspecified fall, initial encounter; Y92.099 - Unspecified place in other non-institutional residence as the place of occurrence of the external cause (6) Generalized weakness ICD Code: R53.1 - Weakness History of Present Illness 77yo male with history of Afib on coumadin as well as bladder cancer s/p cystectomy with ileal conduit, followed by Dr. Lynch, with known bilateral nephrolithiasis under close observation now seen in consultation for ARF and right hydronephrosis with obstructing right ureteral stone. Patient initially admitted due to fall and weakness and found to be in ARF and hypotensive. He has CKD with baseline Cr of 1.7. His Cr now as high as 5. CT scan identified large right obstructing ureteral stone. He underwent Right nephrostomy tube placement today. He currently without pain or discomfort. He is having good UOP from his Urostomy as well as the right nephrostomy tube. Review of Systems ROS Limitations: Clinical Condition, Poor Historian Constitutional: DENIES: Fever Endocrine: DENIES: Polyuria Eyes: DENIES: Blurred vision Ears, nose, mouth, throat: DENIES: Hearing loss Respiratory: DENIES: Apneas Cardiovascular: DENIES: Chest pain Gastrointestinal: DENIES: Abdominal pain, Nausea, Vomiting Musculoskeletal: COMPLAINS OF: Back pain Integumentary: DENIES: Rash Neurologic: DENIES: Headache Psychiatric: DENIES: Anxiety Except as stated in HPI: all other systems reviewed are Neg Past Family Social History Past Medical History Atrial fibrillation Hyperlipidemia Chronic kidney disease stage IV History of bladder cancer History of parotid gland cancer Past Surgical History Ileostomy Parotid surgery Reported Medications Reported Meds & Active Scripts Active Reported Warfarin 3 Mg Tab 3 Mg PO DAILY Pilocarpine 5 Mg Tab 5 Mg PO DAILY Hm Loratadine (Loratadine) 10 Mg Tab 1 Tab PO DAILY Trazodone (Trazodone HCl) 150 Mg Tablet 50 Mg PO HS Nadolol 20 Mg Tab 20 Mg PO DAILY Atorvastatin (Atorvastatin Calcium) 20 Mg Tab 20 Mg PO HS Allergies: Coded Allergies: crab (Unverified Allergy, Intermediate, Rash, 08/16/17) Blue Shell crab causes severe rash all over face and neck. Needs PCN to help clear it up. Patient CAN eat Shrimp and clams, scallops, oysters without problems. Active Ordered Medications Current Medications Medications (Trade) Dose Ordered Sig/Marko Route Start Time Stop Time Status Last Admin (NS Flush) 2 ml UNSCH PRN IV FLUSH 08/16/17 14:30 08/18/17 08:16 (NS Flush) 2 ml BID IV FLUSH 08/16/17 21:00 08/18/17 08:15 (Tylenol) 650 mg Q4H PRN PO 08/16/17 14:30 (Zofran Inj) 4 mg Q6H PRN IVP 08/16/17 14:30 (Narcan Inj) 0.4 mg UNSCH PRN IV PUSH 08/16/17 14:30 (Milk Of Magnesia Liq) 30 ml Q12H PRN PO 08/16/17 14:30 (Senokot) 17.2 mg Q12H PRN PO 08/16/17 14:30 (Dulcolax Supp) 10 mg DAILY PRN RECTAL 08/16/17 14:30 (Lactulose Liq) 30 ml DAILY PRN PO 08/16/17 14:30 Phenylephrine HCl 160 mg/Dextrose 500 ml @ 7.5 mls/hr TITRATE PRN IV 08/16/17 22:30 08/18/17 02:11 (Brethine Inj) 1 mg UNSCH PRN SQ 08/16/17 22:30 Piperacillin Sod/ Tazobactam Sod 50 ml @ 100 mls/hr Q8H IV 08/16/17 23:00 08/18/17 08:15 Pharmacy Profile Note 0 ml @ 0 mls/hr UNSCH OTHER 08/16/17 22:30 (Pepcid Inj) 10 mg Q12H IV PUSH 08/17/17 10:00 08/18/17 12:41 Norepinephrine Bitartrate 250 ml @ 7.5 mls/hr TITRATE PRN IV 08/17/17 09:00 Miscellaneous Information Patient in critical care unit? Ass... [id number] .XX 08/18/17 03:15 (Chlorhexidine 2% Cloth) 3 pack DAILY@04 TOPICAL 08/18/17 04:00 08/22/17 04:01 08/18/17 04:00 (Chlorhexidine 2% Cloth) 3 pack UNSCH PRN TOPICAL 08/18/17 03:15 08/23/17 03:01 (SoluCORTEF INJ) 50 mg Q12HR IV PUSH 08/18/17 21:00 (D50w (Vial) Inj) 50 ml UNSCH PRN IV PUSH 08/18/17 10:45 (Glucagon Inj) 1 mg UNSCH PRN OTHER 08/18/17 10:45 (NovoLIN R SUPPLEMENTAL SCALE) 1 Q4HR SQ 08/18/17 12:00 08/18/17 12:41 Sodium Chloride 1,000 ml @ 50 mls/hr Q20H IV 08/18/17 15:00 08/18/17 12:47 Levofloxacin/ Dextrose 100 ml @ 100 mls/hr Q48H IV 08/18/17 15:00 Family History Father having heart disease Remaining family history reviewed and noncontributory to present illness Social History Patient quit smoking 20 years ago, prior to that he smoked one pack/day. Patient has have history of alcohol use of 8-9 cans of beer daily, however he states that he has not been drinking any alcohol recently. No illicit drug use Physical Exam Vital Signs Date Time Temp Pulse Resp B/P (MAP) Pulse Ox O2 Delivery O2 Flow Rate FiO2 08/18/17 14:00 64 08/18/17 14:00 64 20 132/77 (95) 100 08/18/17 13:00 60 23 133/69 (90) 100 08/18/17 12:00 97.2 71 25 134/85 (101) 98 08/18/17 12:00 70 08/18/17 11:32 76 29 124/76 (92) 97 08/18/17 09:00 71 22 142/79 (100) 99 08/18/17 08:00 76 08/18/17 08:00 97.5 76 20 135/82 (99) 98 08/18/17 08:00 97 21 08/18/17 07:00 78 27 144/80 (101) 95 08/18/17 07:00 78 08/18/17 06:00 69 29 168/77 (107) 99 08/18/17 05:00 72 19 152/77 (102) 99 08/18/17 04:00 97.7 74 20 145/77 (99) 99 08/18/17 02:11 68 139/67 08/18/17 01:47 68 21 128/84 (99) 100 08/18/17 01:32 64 18 141/82 (101) 99 08/18/17 01:17 64 19 127/73 (91) 98 08/18/17 01:02 64 17 133/81 (98) 95 08/18/17 00:47 66 19 106/78 (87) 98 08/18/17 00:32 66 20 131/76 (94) 98 08/18/17 00:02 97.9 64 20 120/71 (87) 99 08/18/17 00:00 66 08/17/17 23:47 62 25 118/70 (86) 99 08/17/17 23:32 66 20 113/73 (86) 96 08/17/17 23:17 66 21 127/65 (85) 100 08/17/17 23:02 64 20 120/67 (84) 98 08/17/17 22:47 64 32 114/78 (90) 99 08/17/17 22:31 64 31 119/78 (92) 99 08/17/17 22:16 68 27 110/75 (87) 98 08/17/17 22:01 66 23 124/76 (92) 98 08/17/17 22:00 66 08/17/17 21:46 66 29 119/82 (94) 87 08/17/17 21:31 64 20 120/76 (91) 95 08/17/17 21:16 64 19 128/82 (97) 91 08/17/17 21:01 62 27 122/87 (99) 100 08/17/17 20:46 64 20 122/80 (94) 98 08/17/17 20:31 60 18 117/83 (94) 100 08/17/17 20:16 64 19 133/79 (97) 97 08/17/17 20:10 98 21 08/17/17 20:01 97.5 64 28 134/76 (95) 95 08/17/17 20:00 60 08/17/17 19:46 68 23 131/81 (98) 95 08/17/17 19:31 64 24 131/79 (96) 96 08/17/17 19:16 64 26 121/81 (94) 97 08/17/17 19:01 64 20 124/83 (97) 98 08/17/17 17:31 62 21 109/73 (85) 97 08/17/17 17:16 62 21 119/67 (84) 97 08/17/17 17:01 58 20 114/80 (91) 98 08/17/17 16:46 62 18 117/74 (88) 97 08/17/17 16:31 60 19 110/76 (87) 98 08/17/17 16:16 64 27 117/77 (90) 95 08/17/17 16:16 64 27 117/77 (90) 95 08/17/17 16:01 64 20 139/82 (101) 99 08/17/17 15:46 64 28 123/78 (93) 98 08/17/17 15:31 62 29 123/76 (92) 99 Physical Exam GENERAL: This is a well-nourished, well-developed patient, in no apparent distress. SKIN: No rashes, ecchymoses or lesions. Cool and dry. HEAD: Atraumatic. Normocephalic. . EYES: Extraocular motions intact. No scleral icterus. No injection or drainage. ENT: Nose without bleeding, purulent drainage. Airway patent. NECK: Trachea midline. No JVD or lymphadenopathy. CARDIOVASCULAR: Normal pulses RESPIRATORY: Nonlabored GASTROINTESTINAL: Abdomen soft, non-tender, nondistended. GENITOURINARY: Right nephrostomy tube in place, light red UOP; Ileostomy with clear yellow urine MUSCULOSKELETAL: Extremities without clubbing, cyanosis, or edema. NEUROLOGICAL: Awake and alert. Motor and sensory grossly within normal limits. Laboratory Tests Test 08/18/17 03:00 08/18/17 03:45 Nasal Screen MRSA (PCR) MRSA NOT DETECTED White Blood Count 19.1 Red Blood Count 2.79 Hemoglobin 8.2 Hematocrit 24.7 Mean Corpuscular Volume 88.7 Mean Corpuscular Hemoglobin 29.5 Mean Corpuscular Hemoglobin Concent 33.3 Red Cell Distribution Width 15.1 Platelet Count 119 Mean Platelet Volume 9.8 Prothrombin Time 15.3 Prothromb Time International Ratio 1.5 Activated Partial Thromboplast Time 36.0 Blood Urea Nitrogen 133 Creatinine 4.90 Random Glucose 234 Calcium Level 7.7 Phosphorus Level 3.4 Magnesium Level 2.0 Sodium Level 146 Potassium Level 3.7 Chloride Level 112 Carbon Dioxide Level 22.9 Anion Gap 11 Estimat Glomerular Filtration Rate 12 Date/Time Source Procedure Growth Status 08/18/17 13:34 Blood Peripheral Aerobic Blood Culture Pending Received 08/18/17 13:34 Blood Peripheral Anaerobic Blood Culture Pending Received 08/18/17 10:50 Fluid Other Gram Stain Pending Received 08/18/17 10:50 Fluid Other Body Fluid Culture Pending Received 08/16/17 17:00 Urine Clean Catch Urine Culture - Final Providencia Stuartii Escherichia Coli Complete Result Diagram: 08/18/17 0345 08/18/17 0345 Personally reviewed images: Yes Imaging Last Impressions Nephrostomy 08/18/17 0000 Signed Impressions: Service Date/Time: July 09:59 - CONCLUSION: 1. Uncomplicated nephrostomy tube placement. Approximately 40 cc of thick odorous purulent fluid was removed from the collecting system. Large sample submitted for a Gram stain and C&S. Gerald Castrejon MD Renal Ultrasound 08/17/17 0000 Signed Impressions: Service Date/Time: Thursday, August 17, 2017 08:16 - CONCLUSION: 1. Bilateral renal calculi with an obstructing 1.2 x 0.8 x 1.1 cm proximal right ureteral calculus. Persistent moderate to severe right-sided hydronephrosis. Findings are consistent with CT exam although some of the renal calculi are not documented on this ultrasound exam. 2. Simple bilateral renal cysts. Gerald Castrejon MD Abdomen/Pelvis CT 08/17/17 0000 Signed Impressions: Service Date/Time: Thursday, August 17, 2017 10:08 - CONCLUSION: 1. 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 2. Mild anasarca. Trace free fluid in the pelvis. 3. 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 4. Multiple calcified gallstones. 5. Postoperative cystectomy with urostomy. Tarik Worrell MD Pelvis X-Ray 08/16/17 0000 Signed Impressions: Service Date/Time: Wednesday, August 16, 2017 13:15 - CONCLUSION: No acute abnormality. Juan Pablo Coleman Jr., MD Head CT 08/16/17 0000 Signed Impressions: Service Date/Time: Wednesday, August 16, 2017 12:18 - CONCLUSION: 1. No acute intracranial abnormality. 2. 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 3. Atrophy and chronic lacunar infarctions. Juan Pablo Coleman Jr., MD Chest X-Ray 08/16/17 0000 Signed Impressions: Service Date/Time: Wednesday, August 16, 2017 13:15 - CONCLUSION: 1. Vague area of nodularity projecting over the first rib on the left. A new finding from the prior study. I cannot exclude a parenchymal nodule. Consider a followup outpatient CT of the thorax. 2. Otherwise, no acute cardiopulmonary disease. Juan Pablo Coleman Jr., MD Assessment and Plan Problem List: (1) History of bladder cancer ICD Code: Z85.51 - Personal history of malignant neoplasm of bladder (2) Acute renal failure ICD Code: N17.9 - Acute kidney failure, unspecified Status: Acute Assessment and Plan -Successful right nephrostomy tube placement by IR today -Expect improvement in his over renal function -Treatment of his right ureteral stone may be done as an outpatient with Dr. Lynch once medically stable and discharged -Continue to monitor renal function -Will follow Problem Qualifiers (1) Leukocytosis: Qualified Codes: D72.829 - Elevated white blood cell count, unspecified (2) Acute renal failure: Qualified Codes: N17.9 - Acute kidney failure, unspecified Eliezer Gregorio MD Aug 18, 2017 15:33
[2017-08-18] MEDS: LEVOFLOXACIN 500 MG PREMIX INJ 100 ML IV SCH (16:58)
[2017-08-19] VITALS (14 sets, daily range): BP systolic 123–150; BP diastolic 64–95; PULSE 63–81; RESP 16–25; TEMP 97.5–98; O2SAT 94–100
[2017-08-19] MEDS: INSULIN NovoLIN REGULAR SUPPLEMENTAL SCALE SQ SCH ×6 (04:00→23:17)
[2017-08-19] MEDS: CHLORHEXIDINE GLUCONATE 2 % 1 PACK (2 CLOTHS)(taper/protocol) TOPICAL SCH (04:00)
[2017-08-19 05:45] LABS: AUTOMATED NEUTROPHIL # 11.7 TH/MM3 (1.8-7.7); BASOPHIL % 0.1 % (0.0-2.0); HEMATOCRIT 23.9 % (39.0-51.0); HEMOGLOBIN 8.2 GM/DL (13.0-17.0); LYMPH % 3.1 % (9.0-44.0); LYMPHOCYTE # 0.4 TH/MM3 (1.0-4.8); MEAN CELL VOLUME 88.8 FL (80.0-100.0); MEAN CORPUSCULAR HEMOGLOBIN 30.5 PG (27.0-34.0); MEAN CORPUSCULAR HGB CONC 34.3 % (32.0-36.0); MEAN PLATELET VOLUME 10.1 FL (7.0-11.0); MONO % 5.2 % (0.0-8.0); MONOCYTE # 0.7 TH/MM3 (0-0.9); NEUT % 91.6 % (16.0-70.0); PLATELET COUNT 90 TH/MM3 (150-450); RED BLOOD COUNT 2.69 MIL/MM3 (4.50-5.90); RED CELL DISTRIBUTION WIDTH 15.3 % (11.6-17.2); WHITE BLOOD COUNT 12.7 TH/MM3 (4.0-11.0)
[2017-08-19 05:52] LABS: INTERNATIONAL NORMALIZED RATIO 1.4 RATIO
[2017-08-19 06:12] LABS: BICARBONATE 25.3 MEQ/L (21.0-32.0); CALCIUM 7.6 MG/DL (8.5-10.1); CREATININE 4.29 MG/DL (0.60-1.30); MAGNESIUM 1.9 MG/DL (1.5-2.5); PHOSPHORUS 3.2 MG/DL (2.5-4.9); RANDOM VANCOMYCIN 8.6 COMMENT
[2017-08-19 06:15] LABS: ALBUMIN 1.9 GM/DL (3.4-5.0); ALKALINE PHOSPHATASE 100 U/L (45-117); ALT (GPT) 57 U/L (12-78); AST (GOT) 40 U/L (15-37); BICARBONATE 24.5 MEQ/L (21.0-32.0); BLOOD UREA NITROGEN 128 MG/DL (7-18); CALCIUM 7.5 MG/DL (8.5-10.1); CHLORIDE 112 MEQ/L (98-107); CREATININE 4.36 MG/DL (0.60-1.30); GLOMERULAR FILTRATION RATE 13 ML/MIN (>89); GLUCOSE,RANDOM 113 MG/DL (74-106); SODIUM (NA) 147 MEQ/L (136-145); TOTAL BILIRUBIN ADULT 0.8 MG/DL (0.2-1.0); TOTAL PROTEIN 5.8 GM/DL (6.4-8.2)
[2017-08-19] MEDS: PIPERACIL-TAZO 2.25 GM PREMIX 50 ML IV SCH ×3 (06:33→23:14)
--- NOTE | 2017-08-19 08:27 | HHI.CCPN ---
Subjective Remarks/Hospital Course This is a 77yM with history of afib on coumadin, liver cancer, parotid cancer, bladder cancer s/p ileostomy and stage IV CKD (baseline Cr 1.7) who presented after he had a fall with weakness at home. he was brought in by [facility] and in the ED he was found to be in acute renal failure, hypotensive, severely dehydrated. He was admitted for ivf and nephrology consultation. despite 3L ivf resuscitation, he was persistently hypotensive. His anion gap is worsening, and his serum bicarbonate is falling despite fluid resuscitation. He was also started on phenylephrine for vasopressor support. During the night, his became worsening tachycardic and diltiazem was started. Critical care medicine is consulted to evaluate and manage his worsening shock, his hypotension, and his acute kidney injury. Unfortunately, the patient is encephalopathic and a very poor historian. He does reliably deny chest or abdominal pain, but the remainder of any history is mostly unobtainable due to his somnolence and inattention. The remainder of the history is obtained from the medical record. 08/18 Patient is awake and alert, on Neosyn 40 mics. For perc nephrostomy tube placement by IR today. BC : GNR on 08/16 ( 4 bottles) 08/19 Patient s/p right perc nephrostomy tube placement by IR yesterday. Afebrile.Off Neosyn. Objective Vital Signs Date Time Temp Pulse Resp B/P (MAP) Pulse Ox O2 Delivery O2 Flow Rate FiO2 08/19/17 06:00 77 08/19/17 04:00 97.7 19 135/80 (98) 96 08/18/17 21:59 21 08/16/17 17:30 Room Air Intake and Output 08/19/17 08/19/17 08/20/17 08:00 16:00 00:00 Intake Total 120 ml Output Total 870 ml Balance -750 ml Result Diagram: 08/19/17 0331 08/19/17 0331 Other Results Laboratory Tests Test 08/19/17 03:31 White Blood Count 12.7 TH/MM3 Red Blood Count 2.69 MIL/MM3 Hemoglobin 8.2 GM/DL Hematocrit 23.9 % Mean Corpuscular Volume 88.8 FL Mean Corpuscular Hemoglobin 30.5 PG Mean Corpuscular Hemoglobin Concent 34.3 % Red Cell Distribution Width 15.3 % Platelet Count 90 TH/MM3 Mean Platelet Volume 10.1 FL Neutrophils (%) (Auto) 91.6 % Lymphocytes (%) (Auto) 3.1 % Monocytes (%) (Auto) 5.2 % Eosinophils (%) (Auto) 0.0 % Basophils (%) (Auto) 0.1 % Neutrophils # (Auto) 11.7 TH/MM3 Lymphocytes # (Auto) 0.4 TH/MM3 Monocytes # (Auto) 0.7 TH/MM3 Eosinophils # (Auto) 0.0 TH/MM3 Basophils # (Auto) 0.0 TH/MM3 CBC Comment AUTO DIFF Prothrombin Time 14.0 SEC Prothromb Time International Ratio 1.4 RATIO Activated Partial Thromboplast Time 33.2 SEC Blood Urea Nitrogen 128 MG/DL Creatinine 4.36 MG/DL Random Glucose 113 MG/DL Total Protein 5.8 GM/DL Albumin 1.9 GM/DL Calcium Level 7.5 MG/DL Alkaline Phosphatase 100 U/L Aspartate Amino Transf (AST/SGOT) 40 U/L Alanine Aminotransferase (ALT/SGPT) 57 U/L Total Bilirubin 0.8 MG/DL Sodium Level 147 MEQ/L Potassium Level 3.3 MEQ/L Chloride Level 112 MEQ/L Carbon Dioxide Level 24.5 MEQ/L Phosphorus Level 3.2 MG/DL Magnesium Level 1.9 MG/DL Anion Gap 11 MEQ/L Estimat Glomerular Filtration Rate 13 ML/MIN Random Vancomycin Level 8.6 COMMENT Imaging Last Impressions Nephrostomy 08/18/17 0000 Signed Impressions: Service Date/Time: July 09:59 - CONCLUSION: 1. Uncomplicated nephrostomy tube placement. Approximately 40 cc of thick odorous purulent fluid was removed from the collecting system. Large sample submitted for a Gram stain and C&S. Gerald Castrejon MD Renal Ultrasound 08/17/17 0000 Signed Impressions: Service Date/Time: Thursday, August 17, 2017 08:16 - CONCLUSION: 1. Bilateral renal calculi with an obstructing 1.2 x 0.8 x 1.1 cm proximal right ureteral calculus. Persistent moderate to severe right-sided hydronephrosis. Findings are consistent with CT exam although some of the renal calculi are not documented on this ultrasound exam. 2. Simple bilateral renal cysts. Gerald Castrejon MD Abdomen/Pelvis CT 08/17/17 0000 Signed Impressions: Service Date/Time: Thursday, August 17, 2017 10:08 - CONCLUSION: 1. 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 2. Mild anasarca. Trace free fluid in the pelvis. 3. 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 4. Multiple calcified gallstones. 5. Postoperative cystectomy with urostomy. Tarik Worrell MD Pelvis X-Ray 08/16/17 0000 Signed Impressions: Service Date/Time: Wednesday, August 16, 2017 13:15 - CONCLUSION: No acute abnormality. Juan Pablo Coleman Jr., MD Head CT 08/16/17 0000 Signed Impressions: Service Date/Time: Wednesday, August 16, 2017 12:18 - CONCLUSION: 1. No acute intracranial abnormality. 2. 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 3. Atrophy and chronic lacunar infarctions. Juan Pablo Coleman Jr., MD Chest X-Ray 08/16/17 0000 Signed Impressions: Service Date/Time: Wednesday, August 16, 2017 13:15 - CONCLUSION: 1. Vague area of nodularity projecting over the first rib on the left. A new finding from the prior study. I cannot exclude a parenchymal nodule. Consider a followup outpatient CT of the thorax. 2. Otherwise, no acute cardiopulmonary disease. Juan Pablo Coleman Jr., MD Objective Remarks GENERAL: Patient is 77 yo lying in bed in NAD SKIN: Warm and dry. HEAD: Normocephalic. EYES: No scleral icterus. No injection or drainage. NECK: Supple, trachea midline. No JVD or lymphadenopathy. CARDIOVASCULAR: Regular rate and rhythm without murmurs, gallops, or rubs. RESPIRATORY: Breath sounds equal bilaterally. No accessory muscle use. GASTROINTESTINAL: Abdomen soft, non-tender, nondistended. RLQ ileal conduit/ urostomy MUSCULOSKELETAL: No cyanosis, or edema. Neuro: Awake and alert. A/P Assessment and Plan Neuro: Metabolic Encephalopathy - likely secondary to uremia -Monitor neuro status, avoid sedatives Respiratory: Atelectasis - Continue with oxygen keep sat >92% -Bronchodilators Cardiovascular: Atrial Fibrillation with Rapid Ventricular Response Hypovolemic Shock -Off Neosyn, monitor HR and BP maintain MAP>65mmHg. Lactic acid 1.4 -Taper stress dose steroids- HC 50mg Q12 Renal: Acute kidney injury superimposed on Chronic Kidney Disease stage IV Right hydronephrosis- 2nd obstructing calculi in right ureter - Monitor renal function, I/O's, avoid nephrotoxins -s/p right perc nephrostomy tube placement by IR 08/18 -Renal is following- Dr. Gaona. On 1/2NS@50ml/hr -Cr: 4.36, UOP: 870ml, nephrostomy tube drainage: 1155ml Urology is following GI: On Po diet On Pepcid 10mg Q12 for GI prophylaxis ID Gram negative bacteremia UTI- BC 08/16 : GNR, E.coli, Proteus Urine cx 08/16: E.coli, Providencia Continue with abx (Levaquin, Zosyn)monitor for signs of infections ( Fever, WBC ) WBC is trending down ID is following. BC 08/18: NGTD, follow up on fluid cx. Heme Anemia- unclear etiology, likely chronic disease Coumadin Coagulopathy Thrombocytopenia Leukocytosis -Monitor CBC, coags- INR 1.4 today - thrombocytopenia likely related to consumption. low probability HIT. Check Hep PLT ab Endocrine: -Cortisol level 77 - taper steroids-hydrocortisone 50mg iv q12h -SSI for glycemic control. Prophylaxis: SCDs INR: 1.4 today- Pepcid iv Lines: Place peripheral IV's and d/c femoral line Level 3 Caleb Brown MD Aug 19, 2017 08:27
[2017-08-19] MEDS: SODIUM CHLORIDE 0.9% FLUSH 10 ML FLUSH IV FLUSH SCH ×2 (08:37→19:37)
[2017-08-19] MEDS: HYDROCORTISONE SOD SUCCINATE 100 MG VIAL IV PUSH SCH ×2 (08:38→21:09)
[2017-08-19] MEDS: FAMOTIDINE 20 MG/2 ML VIAL IV PUSH SCH ×2 (08:39→21:09)
--- NOTE | 2017-08-19 10:16 | HHI.NPPN ---
Subjective General Problems: Anemia Renal Failure: Chronic, Acute, Stage III Interval History He is awake, more alert. Appears better hydrated. Renal function has remained stable overnight. Excellent output from nephrostomy, urine is no longer pink in color. Appetite is sufficient. (Lydia Olson) Review of Systems General Constitutional: Fatigue (Lydia Olson) Objective Data Data Vital Signs Date Time Temp Pulse Resp B/P (MAP) Pulse Ox O2 Delivery O2 Flow Rate FiO2 08/19/17 06:00 77 08/19/17 04:00 97.7 79 19 135/80 (98) 96 08/19/17 04:00 79 08/19/17 02:00 81 08/19/17 00:00 97.9 72 24 123/83 (96) 97 08/19/17 00:00 72 08/18/17 22:00 72 08/18/17 21:59 98 21 08/18/17 20:00 97.6 70 24 125/71 (89) 99 08/18/17 20:00 70 08/18/17 18:00 67 08/18/17 16:00 97.5 71 21 128/77 (94) 95 08/18/17 16:00 71 08/18/17 15:00 72 15 125/76 (92) 100 08/18/17 14:00 64 08/18/17 14:00 64 20 132/77 (95) 100 08/18/17 13:00 60 23 133/69 (90) 100 08/18/17 12:00 97.2 71 25 134/85 (101) 98 08/18/17 12:00 70 08/18/17 11:32 76 29 124/76 (92) 97 (Lydia Olson) -: 08/19/17 0331 08/19/17 0331 Microbiology 08/18/17 Aerobic Blood Culture, Received Pending 08/18/17 Anaerobic Blood Culture, Received Pending 08/18/17 Aerobic Blood Culture, Received Pending 08/18/17 Anaerobic Blood Culture, Received Pending 08/18/17 Gram Stain - Final, Resulted 08/18/17 Body Fluid Culture, Resulted Pending Imaging Last 72 hours Impressions Nephrostomy 08/18/17 0000 Signed Impressions: Service Date/Time: July 09:59 - CONCLUSION: 1. Uncomplicated nephrostomy tube placement. Approximately 40 cc of thick odorous purulent fluid was removed from the collecting system. Large sample submitted for a Gram stain and C&S. Gerald Castrejon MD Renal Ultrasound 08/17/17 0000 Signed Impressions: Service Date/Time: Thursday, August 17, 2017 08:16 - CONCLUSION: 1. Bilateral renal calculi with an obstructing 1.2 x 0.8 x 1.1 cm proximal right ureteral calculus. Persistent moderate to severe right-sided hydronephrosis. Findings are consistent with CT exam although some of the renal calculi are not documented on this ultrasound exam. 2. Simple bilateral renal cysts. Gerald Castrejon MD Abdomen/Pelvis CT 08/17/17 0000 Signed Impressions: Service Date/Time: Thursday, August 17, 2017 10:08 - CONCLUSION: 1. 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 2. Mild anasarca. Trace free fluid in the pelvis. 3. 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 4. Multiple calcified gallstones. 5. Postoperative cystectomy with urostomy. Tarik Worrell MD Tubes & Lines Comment urostomy, TLC right groin, right nephrostomy tube (Lydia Olson B. PHOTOGRAPHER APPRENTICE LITHOGRAPHIC) Physical Exam General Appearance: Well Developed, No Acute Distress, Comfortable, Malnourished (WhitneyLydia B. PHOTOGRAPHER APPRENTICE LITHOGRAPHIC) Eyes Eye Exam: Pupils Equal (Whitney,Lydia B. PHOTOGRAPHER APPRENTICE LITHOGRAPHIC) Throat Throat Remarks very dry mucous membranes (WhitneyLydia B. PHOTOGRAPHER APPRENTICE LITHOGRAPHIC) Pulmonary Resp Exam: Clear Bilaterally, Breath Sounds Equal (Whitney,Lydia B. PHOTOGRAPHER APPRENTICE LITHOGRAPHIC) Cardiology CV Exam: Good Perfusion, Irregular, Arrhythmia (WhitneyLydia B. PHOTOGRAPHER APPRENTICE LITHOGRAPHIC) Gastrointestinal/Abdomen GI Exam: Soft, Non-Tender, Bowel Sounds Present (Geovanni Olsonon B. PHOTOGRAPHER APPRENTICE LITHOGRAPHIC) Genitourinary Remarks right nephrostomy tube (Lydia Olson B. PHOTOGRAPHER APPRENTICE LITHOGRAPHIC) Musculoskeletal MS Exam: Joints Intact, Normal Tone (Lydia Olson) Integumentary Skin Exam: Warm, Dry, Intact (Lydia Olson) Extremeties Extremities Exam: No Edema, Pedal Pulses Palpable (Lydia Olson) Neurologic Neuro Exam: Alert, Awake, Oriented, Speech Clear, Moving All Extremities (Lydia Olson) Psychiatric Psych Exam: Appropriate Responses (Lydia Olson) Assessment/Plan Discussed Condition With: Patient Assessment Summary: SANDI/Acute Renal Failure, Hypotension, CKD Stage III Electrolyte Assessment: Hypernatremia, Metabolic Acidosis Problem List: (1) Acute renal failure ICD Codes: N17.9 - Acute kidney failure, unspecified Status: Acute Plan: SANDI on CKD 3, baseline creatinine is 1.7, GFR 37 SANDI multifactorial: obstructive uropathy (R) due to renal stones, s/p percutaneous nephrostomy tube placement. In addition he is septic, hypotension is improving, and had a component of prerenal azotemia due to dehydration which is improving. BP stable, no longer on pressors, maintain adequate MAP, >65mmHg Change IVF to 1/4 NS @ 30 ml/hr. Oral fluid intake was encouraged. Monitor renal function daily, renally dose when appropriate, avoid nephrotoxic agents Follow urine output Repeat labs in AM (2) Leukocytosis ICD Codes: D72.829 - Elevated white blood cell count, unspecified Status: Acute Plan: He is septic, see below (3) Sepsis ICD Codes: A41.9 - Sepsis, unspecified organism Plan: Source: UTI and pyonephritis He had purulent fluid removed from kidney during nephrostomy tube placement On Zosyn. ID is following. Also on Levaquin Monitor clinically (4) Supratherapeutic INR ICD Codes: R79.1 - Abnormal coagulation profile Status: Acute Plan: INR improved, s/p vitamin K follow INR, resume Coumadin (5) Metabolic acidosis ICD Codes: E87.2 - Acidosis Plan: Improving High anion gap metabolic acidosis, due to renal failure Continue to monitor renal panel Plan p (Lydia Olson) Plan patient was seen and examined. s/p percutaneous nephrostomy. Excellent urine output. Negative fluid balance. Increase fluids. Change to 1/2NS. (Rajeev Gaona MD) Problem Qualifiers (1) Acute renal failure: Qualified Codes: N17.9 - Acute kidney failure, unspecified (2) Leukocytosis: Qualified Codes: D72.829 - Elevated white blood cell count, unspecified Lydia Olson Aug 19, 2017 10:16 Rajeev Gaona MD Aug 19, 2017 15:49
[2017-08-19] MEDS ORDERED: SODIUM CHLORIDE 23.4% INJ 38.5 MEQ in WATER STERILE FOR INJ 1,000 ML IV SCH (11:00)
--- NOTE | 2017-08-19 15:50 | HHI.IDPN ---
Subjective Subjective Remarks doing better stable afebrile WBC going down groing multiple GNBs in blood, urine, all very sensitive Antibiotics zosyn levaquine Allergies: Coded Allergies: crab (Unverified Allergy, Intermediate, Rash, 08/16/17) Blue Shell crab causes severe rash all over face and neck. Needs PCN to help clear it up. Patient CAN eat Shrimp and clams, scallops, oysters without problems. Objective . Vital Signs Date Time Temp Pulse Resp B/P (MAP) Pulse Ox O2 Delivery O2 Flow Rate FiO2 08/19/17 14:00 79 08/19/17 12:00 81 08/19/17 12:00 97.8 81 16 133/78 (96) 99 08/19/17 10:39 96 21 08/19/17 10:00 80 08/19/17 08:00 97.5 76 20 150/89 (109) 94 08/19/17 08:00 73 08/19/17 06:00 77 08/19/17 04:00 97.7 79 19 135/80 (98) 96 08/19/17 04:00 79 08/19/17 02:00 81 08/19/17 00:00 97.9 72 24 123/83 (96) 97 08/19/17 00:00 72 08/18/17 22:00 72 08/18/17 21:59 98 21 08/18/17 20:00 97.6 70 24 125/71 (89) 99 08/18/17 20:00 70 08/18/17 18:00 67 08/18/17 16:00 97.5 71 21 128/77 (94) 95 08/18/17 16:00 71 . Laboratory Tests Test 08/18/17 03:45 08/19/17 03:31 White Blood Count 19.1 TH/MM3 12.7 TH/MM3 Red Blood Count 2.79 MIL/MM3 2.69 MIL/MM3 Hemoglobin 8.2 GM/DL 8.2 GM/DL Hematocrit 24.7 % 23.9 % Mean Corpuscular Volume 88.7 FL 88.8 FL Mean Corpuscular Hemoglobin 29.5 PG 30.5 PG Mean Corpuscular Hemoglobin Concent 33.3 % 34.3 % Red Cell Distribution Width 15.1 % 15.3 % Platelet Count 119 TH/MM3 90 TH/MM3 Mean Platelet Volume 9.8 FL 10.1 FL Neutrophils (%) (Auto) 91.6 % Lymphocytes (%) (Auto) 3.1 % Monocytes (%) (Auto) 5.2 % Eosinophils (%) (Auto) 0.0 % Basophils (%) (Auto) 0.1 % Neutrophils # (Auto) 11.7 TH/MM3 Lymphocytes # (Auto) 0.4 TH/MM3 Monocytes # (Auto) 0.7 TH/MM3 Eosinophils # (Auto) 0.0 TH/MM3 Basophils # (Auto) 0.0 TH/MM3 CBC Comment AUTO DIFF Differential Comment AUTO DIFF CONFIRMED Platelet Estimate LOW Platelet Morphology Comment ENLARGED Laboratory Tests Test 08/18/17 03:45 08/19/17 03:31 Blood Urea Nitrogen 133 MG/DL 128 MG/DL Creatinine 4.90 MG/DL 4.36 MG/DL Random Glucose 234 MG/DL 113 MG/DL Calcium Level 7.7 MG/DL 7.5 MG/DL Phosphorus Level 3.4 MG/DL 3.2 MG/DL Magnesium Level 2.0 MG/DL 1.9 MG/DL Sodium Level 146 MEQ/L 147 MEQ/L Potassium Level 3.7 MEQ/L 3.3 MEQ/L Chloride Level 112 MEQ/L 112 MEQ/L Carbon Dioxide Level 22.9 MEQ/L 24.5 MEQ/L Anion Gap 11 MEQ/L 11 MEQ/L Estimat Glomerular Filtration Rate 12 ML/MIN 13 ML/MIN Total Protein 5.8 GM/DL Albumin 1.9 GM/DL Alkaline Phosphatase 100 U/L Aspartate Amino Transf (AST/SGOT) 40 U/L Alanine Aminotransferase (ALT/SGPT) 57 U/L Total Bilirubin 0.8 MG/DL Microbiology Date/Time Source Procedure Growth Status 08/18/17 13:34 Blood Peripheral Aerobic Blood Culture - Preliminary NO GROWTH IN 1 DAY Resulted 08/18/17 13:34 Blood Peripheral Anaerobic Blood Culture - Preliminary NO GROWTH IN 1 DAY Resulted 08/18/17 13:26 Blood Peripheral Aerobic Blood Culture - Preliminary NO GROWTH IN 1 DAY Resulted 08/18/17 13:26 Blood Peripheral Anaerobic Blood Culture - Preliminary NO GROWTH IN 1 DAY Resulted 08/18/17 10:50 Fluid Other Gram Stain - Final Resulted 08/18/17 10:50 Body Fluid Culture - Preliminary Gram Negative Marlon Resulted 08/16/17 17:00 Urine Clean Catch Urine Culture - Final Providencia Stuartii Escherichia Coli Complete Imaging Last Impressions Nephrostomy 08/18/17 0000 Signed Impressions: Service Date/Time: July 09:59 - CONCLUSION: 1. Uncomplicated nephrostomy tube placement. Approximately 40 cc of thick odorous purulent fluid was removed from the collecting system. Large sample submitted for a Gram stain and C&S. Gerald Castrejon MD Renal Ultrasound 08/17/17 0000 Signed Impressions: Service Date/Time: Thursday, August 17, 2017 08:16 - CONCLUSION: 1. Bilateral renal calculi with an obstructing 1.2 x 0.8 x 1.1 cm proximal right ureteral calculus. Persistent moderate to severe right-sided hydronephrosis. Findings are consistent with CT exam although some of the renal calculi are not documented on this ultrasound exam. 2. Simple bilateral renal cysts. Gerald Castrejon MD Abdomen/Pelvis CT 08/17/17 0000 Signed Impressions: Service Date/Time: Thursday, August 17, 2017 10:08 - CONCLUSION: 1. 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 2. Mild anasarca. Trace free fluid in the pelvis. 3. 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 4. Multiple calcified gallstones. 5. Postoperative cystectomy with urostomy. Tarik Worrell MD Pelvis X-Ray 08/16/17 0000 Signed Impressions: Service Date/Time: Wednesday, August 16, 2017 13:15 - CONCLUSION: No acute abnormality. Juan Pablo Coleman Jr., MD Head CT 08/16/17 0000 Signed Impressions: Service Date/Time: Wednesday, August 16, 2017 12:18 - CONCLUSION: 1. No acute intracranial abnormality. 2. 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 3. Atrophy and chronic lacunar infarctions. Juan Pablo Coleman Jr., MD Chest X-Ray 08/16/17 0000 Signed Impressions: Service Date/Time: Wednesday, August 16, 2017 13:15 - CONCLUSION: 1. Vague area of nodularity projecting over the first rib on the left. A new finding from the prior study. I cannot exclude a parenchymal nodule. Consider a followup outpatient CT of the thorax. 2. Otherwise, no acute cardiopulmonary disease. Juan Pablo Coleman Jr., MD Physical Exam CONSTITUTIONAL/GENERAL: This is an adequately nourished patient, in no apparent distress. TUBES/LINES/DRAINS: SKIN: No jaundice, rashes, or lesions. CARDIOVASCULAR: Regular rate and rhythm without murmurs, gallops, or rubs. No JVD. Peripheral pulses symmetric. RESPIRATORY/CHEST: Symmetric, unlabored respirations. Clear to auscultation. Breath sounds equal bilaterally. No wheezes, rales, or rhonchi. GASTROINTESTINAL: Abdomen soft, non-tender, nondistended. No hepato-splenomegaly , or palpable masses. No guarding. Bowel sounds present. GENITOURINARY: Ileostomy in RLQ, cloudy urine in bag R nephrostomy in place with quite cloudy appearing urine in bag MUSCULOSKELETAL: Extremities without clubbing, cyanosis, or edema. No joint tenderness or effusion noted. No calf tenderness. No mottling or clubbing. NEUROLOGICAL: awake, alert, confused Motor and sensory grossly within normal limits. Follows commands. Moves all extremities. Speech claer but somewhat incoherent PSYCHIATRIC:cooperative Assessment & Plan Remarks Sepsis Severe complicated UTI in settings of obstructive uropathy - sp R nephrostomy placement by IR Pt with ileostomy cont geoffrey, levaquine dc vancomycin Dlela Rocha MD Aug 19, 2017 15:50
[2017-08-19] MEDS: SODIUM CHLOR 0.45% 1000 ML INJ 1,000 ML IV SCH ×2 (16:00→17:06)
[2017-08-19] MEDS ORDERED: POTASSIUM CHLORIDE 25 MEQ EFFERVESCENT TAB PO ONE (19:00)
[2017-08-20] VITALS (14 sets, daily range): BP systolic 136–165; BP diastolic 76–90; PULSE 67–77; RESP 18–26; TEMP 97.1–98; O2SAT 94–99
[2017-08-20] MEDS: INSULIN NovoLIN REGULAR SUPPLEMENTAL SCALE SQ SCH ×4 (04:00→20:00)
[2017-08-20] MEDS: CHLORHEXIDINE GLUCONATE 2 % 1 PACK (2 CLOTHS)(taper/protocol) TOPICAL SCH (04:00)
[2017-08-20] MEDS: SODIUM CHLOR 0.45% 1000 ML INJ 1,000 ML IV SCH ×2 (06:28→21:54)
[2017-08-20] MEDS: PIPERACIL-TAZO 2.25 GM PREMIX 50 ML IV SCH ×2 (07:00→16:15)
[2017-08-20 07:09] LABS: AUTOMATED NEUTROPHIL # 10.2 TH/MM3 (1.8-7.7); BASOPHIL % 0.1 % (0.0-2.0); HEMOGLOBIN 9.3 GM/DL (13.0-17.0); LYMPH % 4.1 % (9.0-44.0); LYMPHOCYTE # 0.5 TH/MM3 (1.0-4.8); MEAN CELL VOLUME 89.1 FL (80.0-100.0); MEAN CORPUSCULAR HEMOGLOBIN 30.6 PG (27.0-34.0); MEAN CORPUSCULAR HGB CONC 34.3 % (32.0-36.0); MEAN PLATELET VOLUME 10.4 FL (7.0-11.0); MONO % 5.8 % (0.0-8.0); MONOCYTE # 0.7 TH/MM3 (0-0.9); PLATELET COUNT 96 TH/MM3 (150-450); RED BLOOD COUNT 3.03 MIL/MM3 (4.50-5.90); RED CELL DISTRIBUTION WIDTH 14.9 % (11.6-17.2); WHITE BLOOD COUNT 11.3 TH/MM3 (4.0-11.0)
[2017-08-20 07:17] LABS: INTERNATIONAL NORMALIZED RATIO 1.3 RATIO; PROTHROMBIN TIME - PATIENT 13.4 SEC (9.8-11.6)
[2017-08-20 07:20] LABS: BICARBONATE 24.3 MEQ/L (21.0-32.0); CALCIUM 7.2 MG/DL (8.5-10.1); CREATININE 3.96 MG/DL (0.60-1.30); MAGNESIUM 1.8 MG/DL (1.5-2.5); PHOSPHORUS 4.3 MG/DL (2.5-4.9)
[2017-08-20 07:38] LABS: CALCIUM-PROTEIN CORRECTED 7.8 MG/DL (8.5-10.1)
--- NOTE | 2017-08-20 08:19 | HHI.CCPN ---
Subjective Remarks/Hospital Course This is a 77yM with history of afib on coumadin, liver cancer, parotid cancer, bladder cancer s/p ileostomy and stage IV CKD (baseline Cr 1.7) who presented after he had a fall with weakness at home. he was brought in by [facility] and in the ED he was found to be in acute renal failure, hypotensive, severely dehydrated. He was admitted for ivf and nephrology consultation. despite 3L ivf resuscitation, he was persistently hypotensive. His anion gap is worsening, and his serum bicarbonate is falling despite fluid resuscitation. He was also started on phenylephrine for vasopressor support. During the night, his became worsening tachycardic and diltiazem was started. Critical care medicine is consulted to evaluate and manage his worsening shock, his hypotension, and his acute kidney injury. Unfortunately, the patient is encephalopathic and a very poor historian. He does reliably deny chest or abdominal pain, but the remainder of any history is mostly unobtainable due to his somnolence and inattention. The remainder of the history is obtained from the medical record. 08/18 Patient is awake and alert, on Neosyn 40 mics. For perc nephrostomy tube placement by IR today. BC : GNR on 08/16 ( 4 bottles) 08/19 Patient s/p right perc nephrostomy tube placement by IR yesterday. Afebrile.Off Neosyn. 08/20 No events overnight. Renal function is improving with Cr: 3.96 from 4.36. Afebrile. Objective Vital Signs Date Time Temp Pulse Resp B/P (MAP) Pulse Ox O2 Delivery O2 Flow Rate FiO2 08/20/17 06:00 71 08/20/17 04:00 23 147/90 (109) 96 08/20/17 00:00 98.0 08/19/17 19:45 21 08/16/17 17:30 Room Air Intake and Output 08/20/17 08/20/17 08/21/17 08:00 16:00 00:00 Intake Total 1100 ml Output Total 2100 ml Balance -1000 ml Result Diagram: 08/20/17 0646 08/20/17 0646 Other Results Laboratory Tests Test 08/19/17 12:00 08/20/17 06:46 White Blood Count 11.3 TH/MM3 Red Blood Count 3.03 MIL/MM3 Hemoglobin 9.3 GM/DL Hematocrit 27.0 % Mean Corpuscular Volume 89.1 FL Mean Corpuscular Hemoglobin 30.6 PG Mean Corpuscular Hemoglobin Concent 34.3 % Red Cell Distribution Width 14.9 % Platelet Count 96 TH/MM3 Mean Platelet Volume 10.4 FL Neutrophils (%) (Auto) 90.0 % Lymphocytes (%) (Auto) 4.1 % Monocytes (%) (Auto) 5.8 % Eosinophils (%) (Auto) 0.0 % Basophils (%) (Auto) 0.1 % Neutrophils # (Auto) 10.2 TH/MM3 Lymphocytes # (Auto) 0.5 TH/MM3 Monocytes # (Auto) 0.7 TH/MM3 Eosinophils # (Auto) 0.0 TH/MM3 Basophils # (Auto) 0.0 TH/MM3 CBC Comment AUTO DIFF Hematology Comments Prothrombin Time 13.4 SEC Prothromb Time International Ratio 1.3 RATIO Activated Partial Thromboplast Time 31.5 SEC Blood Urea Nitrogen 111 MG/DL Creatinine 3.96 MG/DL Random Glucose 113 MG/DL Total Protein 6.0 GM/DL Calcium Level 7.2 MG/DL Phosphorus Level 4.3 MG/DL Magnesium Level 1.8 MG/DL Sodium Level 150 MEQ/L Potassium Level 3.0 MEQ/L Chloride Level 114 MEQ/L Carbon Dioxide Level 24.3 MEQ/L Anion Gap 12 MEQ/L Estimat Glomerular Filtration Rate 15 ML/MIN Protein Corrected Calcium 7.8 MG/DL Imaging Last Impressions Nephrostomy 08/18/17 0000 Signed Impressions: Service Date/Time: July 09:59 - CONCLUSION: 1. Uncomplicated nephrostomy tube placement. Approximately 40 cc of thick odorous purulent fluid was removed from the collecting system. Large sample submitted for a Gram stain and C&S. Gerald Castrejon MD Renal Ultrasound 08/17/17 0000 Signed Impressions: Service Date/Time: Thursday, August 17, 2017 08:16 - CONCLUSION: 1. Bilateral renal calculi with an obstructing 1.2 x 0.8 x 1.1 cm proximal right ureteral calculus. Persistent moderate to severe right-sided hydronephrosis. Findings are consistent with CT exam although some of the renal calculi are not documented on this ultrasound exam. 2. Simple bilateral renal cysts. Gerald Castrejon MD Abdomen/Pelvis CT 08/17/17 0000 Signed Impressions: Service Date/Time: Thursday, August 17, 2017 10:08 - CONCLUSION: 1. 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 2. Mild anasarca. Trace free fluid in the pelvis. 3. 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 4. Multiple calcified gallstones. 5. Postoperative cystectomy with urostomy. Tarik Worrell MD Pelvis X-Ray 08/16/17 0000 Signed Impressions: Service Date/Time: Wednesday, August 16, 2017 13:15 - CONCLUSION: No acute abnormality. Juan Pablo Coleman Jr., MD Head CT 08/16/17 0000 Signed Impressions: Service Date/Time: Wednesday, August 16, 2017 12:18 - CONCLUSION: 1. No acute intracranial abnormality. 2. 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 3. Atrophy and chronic lacunar infarctions. Juan Pablo Coleman Jr., MD Chest X-Ray 08/16/17 0000 Signed Impressions: Service Date/Time: Wednesday, August 16, 2017 13:15 - CONCLUSION: 1. Vague area of nodularity projecting over the first rib on the left. A new finding from the prior study. I cannot exclude a parenchymal nodule. Consider a followup outpatient CT of the thorax. 2. Otherwise, no acute cardiopulmonary disease. Juan Pablo Coleman Jr., MD Objective Remarks GENERAL: Patient is 77 yo lying in bed in NAD SKIN: Warm and dry. HEAD: Normocephalic. EYES: No scleral icterus. No injection or drainage. NECK: Supple, trachea midline. No JVD or lymphadenopathy. CARDIOVASCULAR: Regular rate and rhythm without murmurs, gallops, or rubs. RESPIRATORY: Breath sounds equal bilaterally. No accessory muscle use. GASTROINTESTINAL: Abdomen soft, non-tender, nondistended. RLQ ileal conduit/ urostomy MUSCULOSKELETAL: No cyanosis, or edema. Neuro: Awake and alert. A/P Assessment and Plan Neuro: Metabolic Encephalopathy - likely secondary to uremia (improving) -Monitor neuro status, avoid sedatives Respiratory: Atelectasis - Continue with oxygen keep sat >92% -Bronchodilators Cardiovascular: Atrial Fibrillation with Rapid Ventricular Response Hypovolemic Shock -Monitor HR and BP maintain MAP>65mmHg. Lactic acid 1.4 -Taper stress dose steroids-decrease HC 25mg Q12 Renal: Acute kidney injury superimposed on Chronic Kidney Disease stage IV Right hydronephrosis- 2nd obstructing calculi in right ureter - Monitor renal function, I/O's, avoid nephrotoxins -s/p right perc nephrostomy tube placement by IR 08/18 -Renal is following- Dr. Gaona. On 2NS@75ml/hr. Will give KCL 40meq total for K 3.0 -Cr:3.96 today from 4.36, UOP: 1350ml, nephrostomy tube drainage: 2Ll Urology is following GI: On Po diet On Pepcid 10mg Q12 for GI prophylaxis ID Gram negative bacteremia UTI- BC 08/16 : GNR, E.coli, Proteus Urine cx 08/16: E.coli, Providencia Fluid cx: GNR Continue with abx (Levaquin, Zosyn)monitor for signs of infections ( Fever, WBC ) WBC is trending down ID is following. BC 08/18: NGTD, Heme Anemia- unclear etiology, likely chronic disease Coumadin Coagulopathy Thrombocytopenia Leukocytosis -Monitor CBC, coags- INR 1.4 - thrombocytopenia likely related to consumption. low probability HIT. Follow up on Hep PLT ab Endocrine: -Cortisol level 77 - taper steroids-hydrocortisone to 25mg iv q12h -SSI for glycemic control. Prophylaxis: SCDs INR: 1.4 today- Pepcid iv Lines: Peripheral IV's and d/c femoral line Level 3 Caleb Brown MD Aug 20, 2017 08:19
[2017-08-20] MEDS ORDERED: POTASSIUM CHLOR 20 MEQ PREMIX 100 ML IV SCH (08:30)
[2017-08-20 09:00] LABS: TARGET CELLS 1+ (NORMAL)
[2017-08-20] MEDS: HYDROCORTISONE SOD SUCCINATE 100 MG VIAL IV PUSH SCH ×2 (09:00→21:52)
[2017-08-20] MEDS: SODIUM CHLORIDE 0.9% FLUSH 10 ML FLUSH IV FLUSH SCH ×2 (09:00→21:00)
[2017-08-20] MEDS: FAMOTIDINE 20 MG/2 ML VIAL IV PUSH SCH ×2 (10:00→21:53)
--- NOTE | 2017-08-20 11:23 | HHI.NPPN ---
Subjective General Problems: Anemia Renal Failure: Chronic, Acute, Stage III Additional Remarks Patient is alert, doing better, no SOB, has mild abd. discomfort. Review of Systems General Constitutional: Fatigue Objective Data Data Vital Signs Date Time Temp Pulse Resp B/P (MAP) Pulse Ox O2 Delivery O2 Flow Rate FiO2 08/20/17 10:49 95 08/20/17 06:00 71 08/20/17 04:00 72 23 147/90 (109) 96 08/20/17 04:00 72 08/20/17 02:00 74 08/20/17 00:00 98.0 77 20 143/84 (103) 96 08/20/17 00:00 77 08/19/17 22:00 79 08/19/17 22:00 79 08/19/17 20:00 77 08/19/17 20:00 97.7 77 25 149/95 (113) 98 08/19/17 19:45 98 21 08/19/17 18:00 63 08/19/17 16:00 77 08/19/17 16:00 98.0 77 18 138/64 (88) 100 08/19/17 14:00 79 08/19/17 12:00 81 08/19/17 12:00 97.8 81 16 133/78 (96) 99 -: 08/20/17 0646 08/20/17 0646 Tubes & Lines Comment urostomy, TLC right groin, right nephrostomy tube Physical Exam General Appearance: No Acute Distress, Comfortable, Malnourished Eyes Eye Exam: Pupils Equal Pulmonary Resp Exam: Clear Bilaterally, Breath Sounds Equal Cardiology CV Exam: Good Perfusion, Irregular, Arrhythmia Gastrointestinal/Abdomen GI Exam: Soft, Non-Tender, Bowel Sounds Present Musculoskeletal MS Exam: Joints Intact, Normal Tone Integumentary Skin Exam: Warm, Dry, Intact Extremeties Extremities Exam: No Edema Neurologic Neuro Exam: Alert, Awake, Oriented, Speech Clear Psychiatric Psych Exam: Appropriate Responses Assessment/Plan Discussed Condition With: Patient Assessment Summary: SANDI/Acute Renal Failure, Hypotension, CKD Stage III Electrolyte Assessment: Hypernatremia, Metabolic Acidosis Problem List: (1) Acute renal failure ICD Codes: N17.9 - Acute kidney failure, unspecified Status: Acute Plan: SANDI on CKD 3, baseline creatinine is 1.7, GFR 37 SANDI multifactorial: obstructive uropathy (R) due to renal stones, s/p percutaneous nephrostomy tube placement. In addition he is septic, hypotension is improving, and had a component of prerenal azotemia due to dehydration which is improving. BP stable, no longer on pressors, maintain adequate MAP, >65mmHg Change IVF to 1/4 NS @ 30 ml/hr. Oral fluid intake was encouraged. Monitor renal function daily, renally dose when appropriate, avoid nephrotoxic agents Creatinine started improving. K was low and replaced. Continue IVF and replace K as needed. (2) Leukocytosis ICD Codes: D72.829 - Elevated white blood cell count, unspecified Status: Acute Plan: He is septic, see below (3) Sepsis ICD Codes: A41.9 - Sepsis, unspecified organism Plan: Source: UTI and pyonephritis He had purulent fluid removed from kidney during nephrostomy tube placement On Zosyn. ID is following. Also on Levaquin Monitor clinically (4) Supratherapeutic INR ICD Codes: R79.1 - Abnormal coagulation profile Status: Acute Plan: INR improved, s/p vitamin K follow INR, resume Coumadin (5) Metabolic acidosis ICD Codes: E87.2 - Acidosis Plan: Improving High anion gap metabolic acidosis, due to renal failure Continue to monitor renal panel Problem Qualifiers (1) Acute renal failure: Qualified Codes: N17.9 - Acute kidney failure, unspecified (2) Leukocytosis: Qualified Codes: D72.829 - Elevated white blood cell count, unspecified Kathia Rich MD Aug 20, 2017 11:23
[2017-08-20 14:49] LABS: HEPARIN INDUCED PLATELET AB NEGATIVE (NEGATIVE)
[2017-08-20] MEDS: LEVOFLOXACIN 500 MG PREMIX INJ 100 ML IV SCH (16:15)
[2017-08-20] MEDS ORDERED: POTASSIUM CHLORIDE INJ 20 MEQ in SODIUM CHLORIDE 0.9% INJ 100 ML IV SCH (17:15)
[2017-08-20] MEDS ORDERED: POTASSIUM CHLORIDE 25 MEQ EFFERVESCENT TAB PO ONE (23:45)
[2017-08-21] VITALS (16 sets, daily range): BP systolic 128–169; BP diastolic 67–100; PULSE 71–84; RESP 16–26; TEMP 97–97.8; O2SAT 91–99
[2017-08-21] MEDS ORDERED: POTASSIUM CHLOR 40 MEQ PREMIX 100 ML IV ONE
[2017-08-21] MEDS: POTASSIUM CHLORIDE INJ 20 MEQ in SODIUM CHLORIDE 0.9% INJ 100 ML IV SCH ×2 (00:40→05:22)
[2017-08-21] MEDS: PIPERACIL-TAZO 2.25 GM PREMIX 50 ML IV SCH ×3 (00:42→18:36)
[2017-08-21] MEDS: INSULIN NovoLIN REGULAR SUPPLEMENTAL SCALE SQ SCH ×6 (04:00→20:00)
[2017-08-21] MEDS: CHLORHEXIDINE GLUCONATE 2 % 1 PACK (2 CLOTHS)(taper/protocol) TOPICAL SCH (04:00)
[2017-08-21 04:31] LABS: AUTOMATED NEUTROPHIL # 12.4 TH/MM3 (1.8-7.7); BASOPHIL % 0.1 % (0.0-2.0); EOSINOPHIL % 0.1 % (0.0-4.0); HEMATOCRIT 27.2 % (39.0-51.0); HEMOGLOBIN 8.9 GM/DL (13.0-17.0); LYMPH % 3.9 % (9.0-44.0); LYMPHOCYTE # 0.5 TH/MM3 (1.0-4.8); MEAN CELL VOLUME 90.1 FL (80.0-100.0); MEAN CORPUSCULAR HEMOGLOBIN 29.5 PG (27.0-34.0); MEAN CORPUSCULAR HGB CONC 32.7 % (32.0-36.0); MEAN PLATELET VOLUME 10.1 FL (7.0-11.0); MONO % 4.3 % (0.0-8.0); MONOCYTE # 0.6 TH/MM3 (0-0.9); NEUT % 91.6 % (16.0-70.0); PLATELET COUNT 102 TH/MM3 (150-450); RED BLOOD COUNT 3.02 MIL/MM3 (4.50-5.90); RED CELL DISTRIBUTION WIDTH 14.9 % (11.6-17.2); WHITE BLOOD COUNT 13.5 TH/MM3 (4.0-11.0)
[2017-08-21 04:38] LABS: INTERNATIONAL NORMALIZED RATIO 1.3 RATIO; PROTHROMBIN TIME - PATIENT 13.1 SEC (9.8-11.6)
[2017-08-21 04:57] LABS: BICARBONATE 27.3 MEQ/L (21.0-32.0); CALCIUM 7.3 MG/DL (8.5-10.1); CREATININE 3.56 MG/DL (0.60-1.30); MAGNESIUM 1.7 MG/DL (1.5-2.5); PHOSPHORUS 3.2 MG/DL (2.5-4.9)
[2017-08-21 05:17] LABS: CALCIUM-PROTEIN CORRECTED 7.8 MG/DL (8.5-10.1); TOTAL PROTEIN 6.1 GM/DL (6.4-8.2)
[2017-08-21] MEDS: FAMOTIDINE 20 MG/2 ML VIAL IV PUSH SCH (08:47)
[2017-08-21] MEDS: SODIUM CHLORIDE 0.9% FLUSH 10 ML FLUSH IV FLUSH SCH (08:47)
[2017-08-21] MEDS: HYDROCORTISONE SOD SUCCINATE 100 MG VIAL IV PUSH SCH (08:47)
[2017-08-21] MEDS: DEXTROSE 5% IN WATE 1000ML INJ 1,000 ML IV SCH (09:30)
--- NOTE | 2017-08-21 09:32 | HHI.CCPN ---
Subjective Remarks/Hospital Course This is a 77yM with history of afib on coumadin, liver cancer, parotid cancer, bladder cancer s/p ileostomy and stage IV CKD (baseline Cr 1.7) who presented after he had a fall with weakness at home. he was brought in by [facility] and in the ED he was found to be in acute renal failure, hypotensive, severely dehydrated. He was admitted for ivf and nephrology consultation. despite 3L ivf resuscitation, he was persistently hypotensive. His anion gap is worsening, and his serum bicarbonate is falling despite fluid resuscitation. He was also started on phenylephrine for vasopressor support. During the night, his became worsening tachycardic and diltiazem was started. Critical care medicine is consulted to evaluate and manage his worsening shock, his hypotension, and his acute kidney injury. Unfortunately, the patient is encephalopathic and a very poor historian. He does reliably deny chest or abdominal pain, but the remainder of any history is mostly unobtainable due to his somnolence and inattention. The remainder of the history is obtained from the medical record. 08/18 Patient is awake and alert, on Neosyn 40 mics. For perc nephrostomy tube placement by IR today. BC : GNR on 08/16 ( 4 bottles) 08/19 Patient s/p right perc nephrostomy tube placement by IR yesterday. Afebrile.Off Neosyn. 08/20 No events overnight. Renal function is improving with Cr: 3.96 from 4.36. Afebrile. 08/21 No events overnight. Afebrile. Cr 3.5 today from 3.9 Objective Vital Signs Date Time Temp Pulse Resp B/P (MAP) Pulse Ox O2 Delivery O2 Flow Rate FiO2 08/21/17 06:00 84 08/21/17 04:00 97.6 21 147/82 (103) 96 08/20/17 19:39 21 Intake and Output 08/21/17 08/21/17 08/22/17 08:00 16:00 00:00 Intake Total 1461 ml Output Total 2450 ml Balance -989 ml Result Diagram: 08/21/17 0405 08/21/17 0405 Other Results Laboratory Tests Test 08/20/17 19:48 08/21/17 04:05 Potassium Level 2.9 MEQ/L 3.4 MEQ/L White Blood Count 13.5 TH/MM3 Red Blood Count 3.02 MIL/MM3 Hemoglobin 8.9 GM/DL Hematocrit 27.2 % Mean Corpuscular Volume 90.1 FL Mean Corpuscular Hemoglobin 29.5 PG Mean Corpuscular Hemoglobin Concent 32.7 % Red Cell Distribution Width 14.9 % Platelet Count 102 TH/MM3 Mean Platelet Volume 10.1 FL Neutrophils (%) (Auto) 91.6 % Lymphocytes (%) (Auto) 3.9 % Monocytes (%) (Auto) 4.3 % Eosinophils (%) (Auto) 0.1 % Basophils (%) (Auto) 0.1 % Neutrophils # (Auto) 12.4 TH/MM3 Lymphocytes # (Auto) 0.5 TH/MM3 Monocytes # (Auto) 0.6 TH/MM3 Eosinophils # (Auto) 0.0 TH/MM3 Basophils # (Auto) 0.0 TH/MM3 CBC Comment DIFF FINAL Differential Comment Prothrombin Time 13.1 SEC Prothromb Time International Ratio 1.3 RATIO Activated Partial Thromboplast Time 31.0 SEC Blood Urea Nitrogen 104 MG/DL Creatinine 3.56 MG/DL Random Glucose 92 MG/DL Total Protein 6.1 GM/DL Calcium Level 7.3 MG/DL Phosphorus Level 3.2 MG/DL Magnesium Level 1.7 MG/DL Sodium Level 152 MEQ/L Chloride Level 116 MEQ/L Carbon Dioxide Level 27.3 MEQ/L Anion Gap 9 MEQ/L Estimat Glomerular Filtration Rate 17 ML/MIN Protein Corrected Calcium 7.8 MG/DL Imaging Last Impressions Nephrostomy 08/18/17 0000 Signed Impressions: Service Date/Time: July 09:59 - CONCLUSION: 1. Uncomplicated nephrostomy tube placement. Approximately 40 cc of thick odorous purulent fluid was removed from the collecting system. Large sample submitted for a Gram stain and C&S. Gerald Castrejon MD Renal Ultrasound 08/17/17 0000 Signed Impressions: Service Date/Time: Thursday, August 17, 2017 08:16 - CONCLUSION: 1. Bilateral renal calculi with an obstructing 1.2 x 0.8 x 1.1 cm proximal right ureteral calculus. Persistent moderate to severe right-sided hydronephrosis. Findings are consistent with CT exam although some of the renal calculi are not documented on this ultrasound exam. 2. Simple bilateral renal cysts. Gerald Castrejon MD Abdomen/Pelvis CT 08/17/17 0000 Signed Impressions: Service Date/Time: Thursday, August 17, 2017 10:08 - CONCLUSION: 1. 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 2. Mild anasarca. Trace free fluid in the pelvis. 3. 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 4. Multiple calcified gallstones. 5. Postoperative cystectomy with urostomy. Tarik Worrell MD Pelvis X-Ray 08/16/17 0000 Signed Impressions: Service Date/Time: Wednesday, August 16, 2017 13:15 - CONCLUSION: No acute abnormality. Juan Pablo Coleman Jr., MD Head CT 08/16/17 0000 Signed Impressions: Service Date/Time: Wednesday, August 16, 2017 12:18 - CONCLUSION: 1. No acute intracranial abnormality. 2. 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 3. Atrophy and chronic lacunar infarctions. Juan Pablo Coleman Jr., MD Chest X-Ray 08/16/17 0000 Signed Impressions: Service Date/Time: Wednesday, August 16, 2017 13:15 - CONCLUSION: 1. Vague area of nodularity projecting over the first rib on the left. A new finding from the prior study. I cannot exclude a parenchymal nodule. Consider a followup outpatient CT of the thorax. 2. Otherwise, no acute cardiopulmonary disease. Juan Pablo Coleman Jr., MD Objective Remarks GENERAL: Patient is 77 yo lying in bed in NAD SKIN: Warm and dry. HEAD: Normocephalic. EYES: No scleral icterus. No injection or drainage. NECK: Supple, trachea midline. No JVD or lymphadenopathy. CARDIOVASCULAR: Regular rate and rhythm without murmurs, gallops, or rubs. RESPIRATORY: Breath sounds equal bilaterally. No accessory muscle use. GASTROINTESTINAL: Abdomen soft, non-tender, nondistended. RLQ ileal conduit/ urostomy MUSCULOSKELETAL: No cyanosis, or edema. Neuro: Awake and alert. A/P Assessment and Plan Neuro: Metabolic Encephalopathy - likely secondary to uremia (improving) -Awake and alert . Monitor neuro status, avoid sedatives Respiratory: Atelectasis - Continue with oxygen keep sat >92% -Bronchodilators Cardiovascular: Atrial Fibrillation with Rapid Ventricular Response Hypovolemic Shock -Monitor HR and BP maintain MAP>65mmHg. Lactic acid 1.4 -Taper stress dose steroids-HC 25mg Q12 Renal: Acute kidney injury superimposed on Chronic Kidney Disease stage IV Right hydronephrosis- 2nd obstructing calculi in right ureter - Monitor renal function, I/O's, avoid nephrotoxins -s/p right perc nephrostomy tube placement by IR 08/18 -Renal is following- Dr. Gaona. Change IVF-D5W@75ml/hr monitor sodium level -Cr 3.5 today from :3.96, nephrostomy tube drainage: 1650ml in 24 hrs Urology is following GI: On Po diet On Pepcid 10mg Q12 for GI prophylaxis ID Gram negative bacteremia UTI- BC 08/16 : GNR, E.coli, Proteus, BC 08/18: NGTD Urine cx 08/16: E.coli, Providencia 08/18 Fluid cx: Proteus, E.coli, M, Morganii Continue with abx (Levaquin, Zosyn)monitor for signs of infections ( Fever, WBC ) WBC is trending down ID is following. BC 08/18: NGTD, Heme Anemia- unclear etiology, likely chronic disease Coumadin Coagulopathy Thrombocytopenia Leukocytosis -Monitor CBC, coags- INR 1.4 - thrombocytopenia likely related to consumption. Hep PLT ab is negative Endocrine: -Cortisol level 77 - taper steroids-hydrocortisone to 25mg iv q12h -SSI for glycemic control. Prophylaxis: SCDs INR: 1.4 today- Pepcid iv Lines: Peripheral IV's Level 3 Caleb Brown MD Aug 21, 2017 09:32
--- NOTE | 2017-08-21 11:52 | HHI.NPPN ---
Subjective General Problems: Anemia Renal Failure: Chronic, Acute, Stage III Additional Remarks Patient is alert, doing better, no SOB, want to go home. Review of Systems General Constitutional: Fatigue Objective Data Data Vital Signs Date Time Temp Pulse Resp B/P (MAP) Pulse Ox O2 Delivery O2 Flow Rate FiO2 08/21/17 06:00 84 08/21/17 04:00 97.6 76 21 147/82 (103) 96 08/21/17 04:00 84 08/21/17 02:00 72 08/21/17 00:00 97.0 71 22 143/67 (92) 95 08/21/17 00:00 79 08/20/17 22:00 73 08/20/17 20:00 97.5 70 22 136/81 (99) 96 08/20/17 20:00 73 08/20/17 19:39 94 21 08/20/17 18:00 76 08/20/17 16:00 97.5 72 22 165/86 (112) 98 08/20/17 16:00 72 08/20/17 16:00 97.3 08/20/17 14:00 68 08/20/17 12:00 97.5 67 18 145/76 (99) 99 08/20/17 12:00 72 -: 08/21/17 0405 08/21/17 0405 Tubes & Lines Comment urostomy, TLC right groin, right nephrostomy tube Physical Exam General Appearance: No Acute Distress, Comfortable, Malnourished Eyes Eye Exam: Pupils Equal Pulmonary Resp Exam: Clear Bilaterally, Breath Sounds Equal Cardiology CV Exam: Good Perfusion, Irregular, Arrhythmia Gastrointestinal/Abdomen GI Exam: Soft, Non-Tender, Bowel Sounds Present Musculoskeletal MS Exam: Joints Intact, Normal Tone Integumentary Skin Exam: Warm, Dry, Intact Extremeties Extremities Exam: No Edema Neurologic Neuro Exam: Alert, Awake, Oriented, Speech Clear Psychiatric Psych Exam: Appropriate Responses Assessment/Plan Discussed Condition With: Patient Assessment Summary: SANDI/Acute Renal Failure, Hypotension, CKD Stage III Electrolyte Assessment: Hypernatremia, Metabolic Acidosis Problem List: (1) Acute renal failure ICD Codes: N17.9 - Acute kidney failure, unspecified Status: Acute Plan: SANDI on CKD 3, baseline creatinine is 1.7, GFR 37 SANDI multifactorial: obstructive uropathy (R) due to renal stones, s/p percutaneous nephrostomy tube placement. In addition he is septic, hypotension is improving, and had a component of prerenal azotemia due to dehydration which is improving. BP stable, no longer on pressors, maintain adequate MAP, >65mmHg Change IVF to 1/4 NS @ 30 ml/hr. Oral fluid intake was encouraged. Monitor renal function daily, renally dose when appropriate, avoid nephrotoxic agents Creatinine continue to improve. K is better, Continue antibiotics. It is not safe for patient for D/C, also he lives alone. Dr. Gaona will follow from AM. (2) Leukocytosis ICD Codes: D72.829 - Elevated white blood cell count, unspecified Status: Acute Plan: He is septic, see below (3) Sepsis ICD Codes: A41.9 - Sepsis, unspecified organism Plan: Source: UTI and pyonephritis He had purulent fluid removed from kidney during nephrostomy tube placement On Zosyn. ID is following. Also on Levaquin Monitor clinically (4) Supratherapeutic INR ICD Codes: R79.1 - Abnormal coagulation profile Status: Acute Plan: INR improved, s/p vitamin K follow INR, resume Coumadin (5) Metabolic acidosis ICD Codes: E87.2 - Acidosis Plan: Improving High anion gap metabolic acidosis, due to renal failure Continue to monitor renal panel Problem Qualifiers (1) Acute renal failure: Qualified Codes: N17.9 - Acute kidney failure, unspecified (2) Leukocytosis: Qualified Codes: D72.829 - Elevated white blood cell count, unspecified Kathia Rich MD Aug 21, 2017 11:52
[2017-08-22] VITALS (12 sets, daily range): BP systolic 116–160; BP diastolic 77–111; PULSE 70–91; RESP 12–18; TEMP 97.5–98.6; O2SAT 91–98
[2017-08-22] MEDS: PIPERACIL-TAZO 2.25 GM PREMIX 50 ML IV SCH ×3 (00:51→15:11)
[2017-08-22] MEDS: DEXTROSE 5% IN WATE 1000ML INJ 1,000 ML IV SCH ×2 (00:51→12:10)
[2017-08-22] MEDS: HYDROCORTISONE SOD SUCCINATE 100 MG VIAL IV PUSH SCH ×3 (00:53→20:58)
[2017-08-22] MEDS: FAMOTIDINE 20 MG/2 ML VIAL IV PUSH SCH ×3 (00:54→20:58)
[2017-08-22] MEDS: INSULIN NovoLIN REGULAR SUPPLEMENTAL SCALE SQ SCH ×6 (06:27→20:00)
[2017-08-22 06:42] LABS: AUTOMATED NEUTROPHIL # 12.3 TH/MM3 (1.8-7.7); BASOPHIL % 0.1 % (0.0-2.0); EOSINOPHIL % 0.1 % (0.0-4.0); HEMATOCRIT 28.9 % (39.0-51.0); HEMOGLOBIN 9.4 GM/DL (13.0-17.0); LYMPH % 4.6 % (9.0-44.0); LYMPHOCYTE # 0.6 TH/MM3 (1.0-4.8); MEAN CELL VOLUME 91.2 FL (80.0-100.0); MEAN CORPUSCULAR HEMOGLOBIN 29.6 PG (27.0-34.0); MEAN CORPUSCULAR HGB CONC 32.4 % (32.0-36.0); MEAN PLATELET VOLUME 10.7 FL (7.0-11.0); MONO % 3.5 % (0.0-8.0); MONOCYTE # 0.5 TH/MM3 (0-0.9); NEUT % 91.7 % (16.0-70.0); PLATELET COUNT 121 TH/MM3 (150-450); RED BLOOD COUNT 3.17 MIL/MM3 (4.50-5.90); RED CELL DISTRIBUTION WIDTH 14.7 % (11.6-17.2); WHITE BLOOD COUNT 13.5 TH/MM3 (4.0-11.0)
[2017-08-22 06:49] LABS: INTERNATIONAL NORMALIZED RATIO 1.2 RATIO; PROTHROMBIN TIME - PATIENT 12.3 SEC (9.8-11.6)
[2017-08-22 07:05] LABS: BICARBONATE 25.8 MEQ/L (21.0-32.0); CALCIUM 7.4 MG/DL (8.5-10.1); CREATININE 3.39 MG/DL (0.60-1.30); MAGNESIUM 1.5 MG/DL (1.5-2.5); PHOSPHORUS 3.4 MG/DL (2.5-4.9)
[2017-08-22 07:52] LABS: CALCIUM-PROTEIN CORRECTED 7.7 MG/DL (8.5-10.1); TOTAL PROTEIN 6.5 GM/DL (6.4-8.2)
[2017-08-22] MEDS ORDERED: POTASSIUM CHLORIDE 25 MEQ EFFERVESCENT TAB PO ONE ×2 (08:00→19:15)
[2017-08-22] MEDS: SODIUM CHLORIDE 0.9% FLUSH 10 ML FLUSH IV FLUSH SCH ×2 (09:00→21:00)
--- NOTE | 2017-08-22 09:48 | HHI.CCPN ---
Subjective Remarks/Hospital Course This is a 77yM with history of afib on coumadin, liver cancer, parotid cancer, bladder cancer s/p ileostomy and stage IV CKD (baseline Cr 1.7) who presented after he had a fall with weakness at home. he was brought in by [facility] and in the ED he was found to be in acute renal failure, hypotensive, severely dehydrated. He was admitted for ivf and nephrology consultation. despite 3L ivf resuscitation, he was persistently hypotensive. His anion gap is worsening, and his serum bicarbonate is falling despite fluid resuscitation. He was also started on phenylephrine for vasopressor support. During the night, his became worsening tachycardic and diltiazem was started. Critical care medicine is consulted to evaluate and manage his worsening shock, his hypotension, and his acute kidney injury. Unfortunately, the patient is encephalopathic and a very poor historian. He does reliably deny chest or abdominal pain, but the remainder of any history is mostly unobtainable due to his somnolence and inattention. The remainder of the history is obtained from the medical record. 08/18 Patient is awake and alert, on Neosyn 40 mics. For perc nephrostomy tube placement by IR today. BC : GNR on 08/16 ( 4 bottles) 08/19 Patient s/p right perc nephrostomy tube placement by IR yesterday. Afebrile.Off Neosyn. 08/20 No events overnight. Renal function is improving with Cr: 3.96 from 4.36. Afebrile. 08/21 No events overnight. Afebrile. Cr 3.5 today from 3.9 08/22: Resting comfortably. Denies any shortness of breath or abdominal pain. Creatinine gradually improving. Continues to make urine. Wanting to go home. Objective Vital Signs Date Time Temp Pulse Resp B/P (MAP) Pulse Ox O2 Delivery O2 Flow Rate FiO2 08/22/17 06:00 78 08/22/17 04:00 98.2 18 142/98 (113) 96 08/21/17 20:40 21 Intake and Output 08/22/17 08/22/17 08/23/17 08:00 16:00 00:00 Intake Total 1666 ml Output Total 1200 ml Balance 466 ml Result Diagram: 08/22/17 0415 08/22/17 0415 Imaging Last Impressions Nephrostomy 08/18/17 0000 Signed Impressions: Service Date/Time: July 09:59 - CONCLUSION: 1. Uncomplicated nephrostomy tube placement. Approximately 40 cc of thick odorous purulent fluid was removed from the collecting system. Large sample submitted for a Gram stain and C&S. Gerald Castrejon MD Renal Ultrasound 08/17/17 0000 Signed Impressions: Service Date/Time: Thursday, August 17, 2017 08:16 - CONCLUSION: 1. Bilateral renal calculi with an obstructing 1.2 x 0.8 x 1.1 cm proximal right ureteral calculus. Persistent moderate to severe right-sided hydronephrosis. Findings are consistent with CT exam although some of the renal calculi are not documented on this ultrasound exam. 2. Simple bilateral renal cysts. Gerald Castrejon MD Abdomen/Pelvis CT 08/17/17 0000 Signed Impressions: Service Date/Time: Thursday, August 17, 2017 10:08 - CONCLUSION: 1. 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 2. Mild anasarca. Trace free fluid in the pelvis. 3. 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 4. Multiple calcified gallstones. 5. Postoperative cystectomy with urostomy. Tarik Worrell MD Pelvis X-Ray 08/16/17 0000 Signed Impressions: Service Date/Time: Wednesday, August 16, 2017 13:15 - CONCLUSION: No acute abnormality. Juan Pablo Coleman Jr., MD Head CT 08/16/17 0000 Signed Impressions: Service Date/Time: Wednesday, August 16, 2017 12:18 - CONCLUSION: 1. No acute intracranial abnormality. 2. 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 3. Atrophy and chronic lacunar infarctions. Juan Pablo Coleman Jr., MD Chest X-Ray 08/16/17 0000 Signed Impressions: Service Date/Time: Wednesday, August 16, 2017 13:15 - CONCLUSION: 1. Vague area of nodularity projecting over the first rib on the left. A new finding from the prior study. I cannot exclude a parenchymal nodule. Consider a followup outpatient CT of the thorax. 2. Otherwise, no acute cardiopulmonary disease. Juan Pablo Coleman Jr., MD Objective Remarks GENERAL: Patient is 77 yo lying in bed in NAD SKIN: Warm and dry. HEAD: Normocephalic. EYES: No scleral icterus. No injection or drainage. NECK: Supple, trachea midline. No JVD or lymphadenopathy. CARDIOVASCULAR: Regular rate and rhythm without murmurs, gallops, or rubs. RESPIRATORY: Breath sounds equal bilaterally. No accessory muscle use. GASTROINTESTINAL: Abdomen soft, non-tender, nondistended. RLQ ileal conduit/ urostomy MUSCULOSKELETAL: No cyanosis, or edema. Neuro: Awake and alert. nonfocal grossly A/P Assessment and Plan Neuro: Metabolic Encephalopathy - likely secondary to uremia (resolved) -Awake and alert . Monitor neuro status, avoid sedatives Respiratory: Atelectasis - Continue with oxygen keep sat >92% -Bronchodilators Cardiovascular: Atrial Fibrillation with Rapid Ventricular Response Hypovolemic Shock -Monitor HR and BP maintain MAP>65mmHg. -Taper stress dose steroids-HC 25mg Q12 Renal: Acute kidney injury superimposed on Chronic Kidney Disease stage IV Right hydronephrosis- 2nd obstructing calculi in right ureter - Monitor renal function, I/O's, avoid nephrotoxins -s/p right perc nephrostomy tube placement by IR 08/18 -Renal is following- Dr. Gaona. Change IVF-D5W@75ml/hr monitor sodium level -Cr decreasing, nephrostomy in place Urology is following GI: On Po diet On Pepcid 10mg Q12 for GI prophylaxis ID Gram negative bacteremia UTI- BC 08/16 : GNR, E.coli, Proteus, BC 08/18: NGTD Urine cx 08/16: E.coli, Providencia 08/18 Fluid cx: Proteus, E.coli, M, Morganii Continue with abx (Levaquin, Zosyn)monitor for signs of infections ( Fever, WBC ) WBC is trending down ID is following. BC 08/18: NGTD, Heme Anemia- unclear etiology, likely chronic disease Coumadin Coagulopathy Thrombocytopenia Leukocytosis -Monitor CBC, coags- INR 1.4 - thrombocytopenia likely related to consumption. Hep PLT ab is negative Endocrine: -Cortisol level 77 - taper steroids-hydrocortisone to 25mg iv q12h -SSI for glycemic control. Prophylaxis: SCDs Pepcid iv Lines: Peripheral IV's Consult and transfer to hospitalist service. Transfer out of ICU. Critical care will be signing out on patient's transfer out of ICU. Level 3 Sudheer Hunt MD Aug 22, 2017 09:48
--- NOTE | 2017-08-22 10:51 | HHI.NPPN ---
Subjective General Problems: Anemia Renal Failure: Chronic, Acute, Stage III Interval History Demonstrates some confusion, really wants to be discharged from the hospital. Says his son is waiting at home for him, however apparently his son is in [place]. Renal function has improved to some extent. Review of Systems General Constitutional: Fatigue Objective Data Data 08/22/17 08/23/17 19:00 07:00 Intake Total 50 ml Balance 50 ml IV Total 50 ml Vital Signs Date Time Temp Pulse Resp B/P (MAP) Pulse Ox O2 Delivery O2 Flow Rate FiO2 08/22/17 10:08 96 08/22/17 10:00 83 08/22/17 08:00 97.6 83 16 159/111 (127) 91 08/22/17 08:00 77 08/22/17 06:00 78 08/22/17 04:00 98.2 85 18 142/98 (113) 96 08/22/17 04:00 85 08/22/17 02:00 80 08/22/17 00:00 82 08/22/17 00:00 98.1 82 18 160/97 (118) 98 08/21/17 22:00 82 08/21/17 20:40 99 21 08/21/17 20:00 80 08/21/17 20:00 97.8 80 16 144/88 (106) 99 08/21/17 18:00 79 08/21/17 18:00 79 18 155/94 (114) 91 08/21/17 17:00 81 17 150/96 (114) 96 08/21/17 16:00 97.6 79 19 151/89 (109) 97 08/21/17 16:00 79 08/21/17 15:00 82 18 128/100 (109) 98 08/21/17 14:00 80 08/21/17 14:00 80 19 155/93 (113) 99 08/21/17 13:00 82 18 143/88 (106) 97 08/21/17 12:00 79 08/21/17 12:00 97.2 79 16 169/99 (122) 98 -: 08/22/17 0415 08/22/17 0415 Tubes & Lines Comment urostomy, TLC right groin, right nephrostomy tube Physical Exam General Appearance: No Acute Distress, Comfortable, Malnourished Eyes Eye Exam: Pupils Equal Pulmonary Resp Exam: Clear Bilaterally, Breath Sounds Equal Cardiology CV Exam: Good Perfusion, Irregular, Arrhythmia Gastrointestinal/Abdomen GI Exam: Soft, Non-Tender, Bowel Sounds Present Musculoskeletal MS Exam: Joints Intact, Normal Tone Integumentary Skin Exam: Warm, Dry, Intact Extremeties Extremities Exam: No Edema Neurologic Neuro Exam: Alert, Awake, Oriented, Speech Clear Psychiatric Psych Exam: Appropriate Responses Assessment/Plan Discussed Condition With: Patient Assessment Summary: SANDI/Acute Renal Failure, Hypotension, CKD Stage III Electrolyte Assessment: Hypernatremia, Metabolic Acidosis Problem List: (1) Acute renal failure ICD Codes: N17.9 - Acute kidney failure, unspecified Status: Acute Plan: SANDI on CKD 3, baseline creatinine is 1.7, GFR 37 SANDI due to sepsis, dehydration and ureteral obstruction from stone. Renal function is gradually improving, no need for dialysis. Continue hypotonic fluids to correct hypernatremia Replace potassium. (2) Leukocytosis ICD Codes: D72.829 - Elevated white blood cell count, unspecified Status: Acute Plan: He is septic, see below (3) Sepsis ICD Codes: A41.9 - Sepsis, unspecified organism Plan: Source: UTI and pyonephritis He had purulent fluid removed from kidney during nephrostomy tube placement On Zosyn. ID is following. Also on Levaquin Monitor clinically (4) Supratherapeutic INR ICD Codes: R79.1 - Abnormal coagulation profile Status: Acute Plan: INR improved, s/p vitamin K follow INR, resume Coumadin (5) Metabolic acidosis ICD Codes: E87.2 - Acidosis Plan: Improving High anion gap metabolic acidosis, due to renal failure Continue to monitor renal panel Problem Qualifiers (1) Acute renal failure: Qualified Codes: N17.9 - Acute kidney failure, unspecified (2) Leukocytosis: Qualified Codes: D72.829 - Elevated white blood cell count, unspecified Rajeev Gaona MD Aug 22, 2017 10:51
[2017-08-22] MEDS ORDERED: cloNIDine HCL 0.1 MG TAB PO PRN (13:00)
[2017-08-22] MEDS ORDERED: NADOLOL 20 MG TAB PO ONE (13:00)
[2017-08-22] MEDS: LEVOFLOXACIN 500 MG PREMIX INJ 100 ML IV SCH (14:57)
[2017-08-22] MEDS: POTASSIUM CHLORIDE INJ 20 MEQ in SODIUM CHLORIDE 0.9% INJ 100 ML IV SCH ×2 (21:34→22:56)
[2017-08-23] VITALS (11 sets, daily range): BP systolic 120–153; BP diastolic 79–90; PULSE 69–90; RESP 16–18; TEMP 97.2–97.6; O2SAT 96–100
[2017-08-23] MEDS: PIPERACIL-TAZO 2.25 GM PREMIX 50 ML IV SCH ×4 (00:05→23:44)
[2017-08-23] MEDS: INSULIN NovoLIN REGULAR SUPPLEMENTAL SCALE SQ SCH ×5 (04:00→15:57)
[2017-08-23 06:54] LABS: HEMATOCRIT 26.3 % (39.0-51.0); MEAN CELL VOLUME 89.9 FL (80.0-100.0); MEAN CORPUSCULAR HEMOGLOBIN 30.9 PG (27.0-34.0); MEAN CORPUSCULAR HGB CONC 34.3 % (32.0-36.0); MEAN PLATELET VOLUME 10.6 FL (7.0-11.0); PLATELET COUNT 139 TH/MM3 (150-450); RED BLOOD COUNT 2.92 MIL/MM3 (4.50-5.90); RED CELL DISTRIBUTION WIDTH 14.6 % (11.6-17.2); WHITE BLOOD COUNT 12.7 TH/MM3 (4.0-11.0)
[2017-08-23 07:40] LABS: BICARBONATE 25.4 MEQ/L (21.0-32.0); CREATININE 2.94 MG/DL (0.60-1.30)
[2017-08-23 07:59] LABS: CALCIUM-PROTEIN CORRECTED 7.6 MG/DL (8.5-10.1)
[2017-08-23] MEDS: SODIUM CHLORIDE 0.9% FLUSH 10 ML FLUSH IV FLUSH SCH ×2 (08:00→21:36)
[2017-08-23] MEDS: NADOLOL 20 MG TAB PO SCH (08:10)
[2017-08-23] MEDS: HYDROCORTISONE SOD SUCCINATE 100 MG VIAL IV PUSH SCH ×2 (08:10→21:36)
[2017-08-23] MEDS: FAMOTIDINE 20 MG/2 ML VIAL IV PUSH SCH ×2 (08:10→21:36)
[2017-08-23] MEDS: DEXTROSE 5% IN WATE 1000ML INJ 1,000 ML IV SCH (08:13)
--- NOTE | 2017-08-23 11:10 | HHI.NPPN ---
Subjective General Problems: Anemia Renal Failure: Chronic, Acute, Stage III Interval History patient was seen and examined. Renal function is improving. Review of Systems General Constitutional: Fatigue Objective Data Data Vital Signs Date Time Temp Pulse Resp B/P (MAP) Pulse Ox O2 Delivery O2 Flow Rate FiO2 08/23/17 09:58 98 21 08/23/17 08:00 97.3 71 18 120/80 (93) 99 08/23/17 05:02 97.2 80 16 126/87 (100) 96 08/23/17 04:00 81 08/23/17 03:09 21 08/23/17 00:30 97.5 87 16 145/90 (108) 99 08/23/17 00:00 85 08/22/17 21:35 98.6 79 16 144/86 (105) 98 08/22/17 20:00 77 08/22/17 16:09 70 08/22/17 16:01 97.5 85 18 116/77 (90) 98 08/22/17 12:00 91 08/22/17 12:00 97.9 91 12 140/99 (113) 92 -: 08/23/17 0530 08/23/17 0530 Tubes & Lines Comment urostomy, TLC right groin, right nephrostomy tube Physical Exam General Appearance: No Acute Distress, Comfortable, Malnourished Eyes Eye Exam: Pupils Equal Pulmonary Resp Exam: Clear Bilaterally, Breath Sounds Equal Cardiology CV Exam: Good Perfusion, Irregular, Arrhythmia Gastrointestinal/Abdomen GI Exam: Soft, Non-Tender, Bowel Sounds Present Musculoskeletal MS Exam: Joints Intact, Normal Tone Integumentary Skin Exam: Warm, Dry, Intact Extremeties Extremities Exam: No Edema Neurologic Neuro Exam: Alert, Awake, Oriented, Speech Clear Psychiatric Psych Exam: Appropriate Responses Assessment/Plan Discussed Condition With: Patient Assessment Summary: SANDI/Acute Renal Failure, Hypotension, CKD Stage III Electrolyte Assessment: Hypernatremia, Metabolic Acidosis Problem List: (1) Acute renal failure ICD Codes: N17.9 - Acute kidney failure, unspecified Status: Acute Plan: SANDI on CKD 3, baseline creatinine is 1.7, GFR 37 SANDI due to sepsis, dehydration and ureteral obstruction from stone. Renal function is gradually improving, no need for dialysis. Continue hypotonic fluids to correct hypernatremia Replace potassium. (2) Sepsis ICD Codes: A41.9 - Sepsis, unspecified organism Plan: Source: UTI and pyonephritis He had purulent fluid removed from kidney during nephrostomy tube placement On Zosyn. ID is following. Also on Levaquin Monitor clinically (3) Supratherapeutic INR ICD Codes: R79.1 - Abnormal coagulation profile Status: Acute Plan: INR improved, s/p vitamin K follow INR, resume Coumadin (4) Metabolic acidosis ICD Codes: E87.2 - Acidosis Plan: Improving High anion gap metabolic acidosis, due to renal failure Continue to monitor renal panel Problem Qualifiers (1) Acute renal failure: Qualified Codes: N17.9 - Acute kidney failure, unspecified Rajeev Gaona MD Aug 23, 2017 11:10
[2017-08-23] MEDS ORDERED: POTASSIUM CHLORIDE 20 MEQ CONTROLLED RELEASE TAB PO ONE (11:15)
--- NOTE | 2017-08-23 17:16 | HHI.PR ---
Subjective Remarks Patient wants to be discharged home. States he feels fine and denies any complaints. K and Calcium low. WBC still elevated but trending down. Objective Vitals Vital Signs Date Time Temp Pulse Resp B/P (MAP) Pulse Ox O2 Delivery O2 Flow Rate FiO2 08/23/17 12:12 80 08/23/17 12:00 97.2 81 18 126/79 (95) 100 08/23/17 09:58 98 21 08/23/17 08:04 90 08/23/17 08:00 97.3 71 18 120/80 (93) 99 08/23/17 05:02 97.2 80 16 126/87 (100) 96 08/23/17 04:00 81 08/23/17 03:09 21 08/23/17 00:30 97.5 87 16 145/90 (108) 99 08/23/17 00:00 85 08/22/17 21:35 98.6 79 16 144/86 (105) 98 08/22/17 20:00 77 I/O 08/22/17 08/22/17 08/22/17 08/23/17 08/23/17 08/23/17 06:59 14:59 22:59 06:59 14:59 22:59 Intake Total 1616 ml 530 ml 170 ml 1350 ml Output Total 1200 ml 475 ml 750 ml 900 ml 1000 ml Balance 416 ml 55 ml -580 ml 450 ml -1000 ml Intake Oral 50 ml 480 ml 120 ml IV Total 1566 ml 50 ml 50 ml 1350 ml Output Urine Total 800 ml 475 ml 300 ml Drainage Total 400 ml 450 ml 900 ml 1000 ml # Bowel Movements 1 1 Result Diagram: 08/23/17 0530 08/23/17 0530 Imaging Last Impressions Nephrostomy 08/18/17 0000 Signed Impressions: Service Date/Time: July 09:59 - CONCLUSION: 1. Uncomplicated nephrostomy tube placement. Approximately 40 cc of thick odorous purulent fluid was removed from the collecting system. Large sample submitted for a Gram stain and C&S. Gerald Castrejon MD Renal Ultrasound 08/17/17 0000 Signed Impressions: Service Date/Time: Thursday, August 17, 2017 08:16 - CONCLUSION: 1. Bilateral renal calculi with an obstructing 1.2 x 0.8 x 1.1 cm proximal right ureteral calculus. Persistent moderate to severe right-sided hydronephrosis. Findings are consistent with CT exam although some of the renal calculi are not documented on this ultrasound exam. 2. Simple bilateral renal cysts. Gerald Castrejon MD Abdomen/Pelvis CT 08/17/17 0000 Signed Impressions: Service Date/Time: Thursday, August 17, 2017 10:08 - CONCLUSION: 1. 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 2. Mild anasarca. Trace free fluid in the pelvis. 3. 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 4. Multiple calcified gallstones. 5. Postoperative cystectomy with urostomy. Tarik Worrell MD Pelvis X-Ray 08/16/17 0000 Signed Impressions: Service Date/Time: Wednesday, August 16, 2017 13:15 - CONCLUSION: No acute abnormality. Juan Pablo Coleman Jr., MD Head CT 08/16/17 0000 Signed Impressions: Service Date/Time: Wednesday, August 16, 2017 12:18 - CONCLUSION: 1. No acute intracranial abnormality. 2. 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 3. Atrophy and chronic lacunar infarctions. Juan Pablo Coleman Jr., MD Chest X-Ray 08/16/17 0000 Signed Impressions: Service Date/Time: Wednesday, August 16, 2017 13:15 - CONCLUSION: 1. Vague area of nodularity projecting over the first rib on the left. A new finding from the prior study. I cannot exclude a parenchymal nodule. Consider a followup outpatient CT of the thorax. 2. Otherwise, no acute cardiopulmonary disease. Juan Pablo Coleman Jr., MD Objective Remarks GENERAL: Patient is 77 yo lying in bed in NAD SKIN: Warm and dry. HEAD: Normocephalic. EYES: No scleral icterus. No injection or drainage. NECK: Supple, trachea midline. No JVD or lymphadenopathy. CARDIOVASCULAR: Regular rate and rhythm without murmurs, gallops, or rubs. RESPIRATORY: Breath sounds equal bilaterally. No accessory muscle use. GASTROINTESTINAL: Abdomen soft, non-tender, nondistended. RLQ ileal conduit/ urostomy MUSCULOSKELETAL: No cyanosis, or edema. Neuro: Awake and alert. nonfocal grossly Medications and IVs Current Medications Medications (Trade) Dose Ordered Sig/Marko Route Start Time Stop Time Status Last Admin (NS Flush) 2 ml UNSCH PRN IV FLUSH 08/16/17 14:30 08/18/17 08:16 (NS Flush) 2 ml BID IV FLUSH 08/16/17 21:00 08/23/17 08:00 (Tylenol) 650 mg Q4H PRN PO 08/16/17 14:30 08/23/17 14:17 (Zofran Inj) 4 mg Q6H PRN IVP 08/16/17 14:30 (Narcan Inj) 0.4 mg UNSCH PRN IV PUSH 08/16/17 14:30 (Milk Of Magnesia Liq) 30 ml Q12H PRN PO 08/16/17 14:30 (Senokot) 17.2 mg Q12H PRN PO 08/16/17 14:30 (Dulcolax Supp) 10 mg DAILY PRN RECTAL 08/16/17 14:30 (Lactulose Liq) 30 ml DAILY PRN PO 08/16/17 14:30 (Brethine Inj) 1 mg UNSCH PRN SQ 08/16/17 22:30 Piperacillin Sod/ Tazobactam Sod 50 ml @ 100 mls/hr Q8H IV 08/16/17 23:00 08/23/17 14:16 (Pepcid Inj) 10 mg Q12H IV PUSH 08/17/17 10:00 08/23/17 08:10 Miscellaneous Information Patient in critical care unit? Ass... [id number] .XX 08/18/17 03:15 (D50w (Vial) Inj) 50 ml UNSCH PRN IV PUSH 08/18/17 10:45 (Glucagon Inj) 1 mg UNSCH PRN OTHER 08/18/17 10:45 (NovoLIN R SUPPLEMENTAL SCALE) 1 Q4HR SQ 08/18/17 12:00 08/23/17 08:12 Levofloxacin/ Dextrose 100 ml @ 100 mls/hr Q48H IV 08/18/17 15:00 08/22/17 14:57 (SoluCORTEF INJ) 25 mg Q12HR IV PUSH 08/20/17 09:00 08/23/17 08:10 Dextrose 1,000 ml @ 75 mls/hr [id number] IV 08/21/17 09:30 08/23/17 08:13 (Catapres) 0.1 mg Q6H PRN PO 08/22/17 13:00 08/22/17 13:35 (Corgard) 20 mg DAILY PO 08/23/17 09:00 08/23/17 08:10 A/P Problem List: (1) Sepsis ICD Code: A41.9 - Sepsis, unspecified organism Status: Resolved Plan: This is a 77yM with history of afib on coumadin, liver cancer, parotid cancer, bladder cancer s/p ileostomy and stage IV CKD (baseline Cr 1.7) who presented after he had a fall with weakness at home. he was brought in by [facility] and in the ED he was found to be in acute renal failure, hypotensive, severely dehydrated. He was admitted for ivf and nephrology consultation. despite 3L ivf resuscitation, he was persistently hypotensive. His anion gap is worsening, and his serum bicarbonate is falling despite fluid resuscitation. He was also started on phenylephrine for vasopressor support. During the night, his became worsening tachycardic and diltiazem was started. Critical care medicine is consulted to evaluate and manage his worsening shock, his hypotension, and his acute kidney injury. Sepsis secondary to Proteus and UTI and pyelonephritis. Present on admission. The patient was initially admitted to the intensive care unit and managed by the silver lap machine tender. The patient was hypotensive so was started on Brian-Synephrine and a percutaneous nephrostomy tube was placed by IR on 12/17 secondary to severe right hydronephrosis with obstructive uropathy. The patient initially treated with IV vancomycin and IV Zosyn. ID consulted. IV vancomycin discontinued. Continue IV Zosyn and antibiotics as per ID recommendations. Sepsis has clinically resolved. Continue to monitor vital signs. (2) Complicated UTI (urinary tract infection) ICD Code: N39.0 - Urinary tract infection, site not specified Status: Resolved Plan: Urine culture positive for Providencia stuartii and Escherichia coli. Continue with IV antibiotics as mentioned above. (3) SANDI (acute kidney injury) ICD Code: N17.9 - Acute kidney failure, unspecified Status: Acute Plan: AKA combination of dehydration, hypovolemia and obstructive uropathy. Monitor renal function, I/O's, avoid nephrotoxins s/p right perc nephrostomy tube placement by IR 08/18 Renal is following- Dr. Gaona. Continue with IV fluids as per renal. Cr decreasing, nephrostomy in place Urology is following Renal function is gradually improving, no need for dialysis. (4) CKD (chronic kidney disease), stage III ICD Code: N18.3 - Chronic kidney disease, stage 3 (moderate) Status: Chronic Plan: baseline creatinine is 1.7, GFR 37. Management as above. (5) Supratherapeutic INR ICD Code: R79.1 - Abnormal coagulation profile Status: Resolved Plan: INR improved, s/p vitamin K follow INR, resume Coumadin (6) Metabolic acidosis ICD Code: E87.2 - Acidosis Status: Resolved Plan: High anion gap metabolic acidosis, due to renal failure - resolved Continue to monitor renal panel (7) Atrial fibrillation with RVR ICD Code: I48.91 - Unspecified atrial fibrillation Plan: Rate controlled. Continue Nadolol. (8) Hypovolemic shock ICD Code: R57.1 - Hypovolemic shock Plan: Resolved, sp IV fluid and vasopresor support while in the ICU with Brian- Synephrine. Hypovolemic shock secondary to UTI and pyelonephritis. (9) Bacteremia ICD Code: R78.81 - Bacteremia Plan: Gram-negative bacteremia. Blood cultures grew Escherichia coli and Proteus Vulgaris. Antibiotics as per ID. (10) Anemia ICD Code: D64.9 - Anemia, unspecified Status: Chronic Plan: Anemia with unclear etiology, likely chronic disease. Hemoglobin remained stable at 9.0. Continue to monitor CBC. (11) Obstructive uropathy ICD Code: N13.9 - Obstructive and reflux uropathy, unspecified Status: Resolved Plan: Status post percutaneous nephrostomy tube. (12) Hydronephrosis of right kidney ICD Code: N13.30 - Unspecified hydronephrosis Plan: Patient with history of bladder cancer. Secondary to ureteral stone. Status post nephrostomy tube. (13) Generalized weakness ICD Code: R53.1 - Weakness Plan: PT consulted. Recommended rehabilitation however patient is refusing to be discharged to rehabilitation and wants to go home. (14) Leukocytosis ICD Code: D72.829 - Elevated white blood cell count, unspecified Status: Acute Plan: No evidence of acute infection. Patient is afebrile. WBCs trending down and the patient is on hydrocortisone which will be tapered to prednisone. (15) Thrombocytopenia ICD Code: D69.6 - Thrombocytopenia, unspecified Plan: Possible consumption coagulopathy. Platelets are trending up and now 1: 30 9K. Assessment and Plan DVT prophylaxis SCDs. Discharge Planning Discharge pending nephrology clearance and improvement of SANDI. Problem Qualifiers (1) Sepsis: Qualified Codes: A41.9 - Sepsis, unspecified organism (2) Anemia: Qualified Codes: D64.9 - Anemia, unspecified (3) Leukocytosis: Qualified Codes: D72.829 - Elevated white blood cell count, unspecified Shawn Caballero MD Aug 23, 2017 17:16
[2017-08-23] MEDS ORDERED: CALCIUM CHLORIDE INJ 2 GM in SODIUM CHLORIDE 0.9% INJ 100 ML IV ONE (18:00)
[2017-08-24] VITALS (10 sets, daily range): BP systolic 123–142; BP diastolic 78–92; PULSE 59–84; RESP 16–18; TEMP 97.1–97.9; O2SAT 95–100
[2017-08-24] MEDS: DEXTROSE 5% IN WATE 1000ML INJ 1,000 ML IV SCH ×2 (03:47→18:28)
[2017-08-24] MEDS: PIPERACIL-TAZO 2.25 GM PREMIX 50 ML IV SCH ×2 (05:25→15:20)
[2017-08-24 06:19] LABS: HEMATOCRIT 27.1 % (39.0-51.0); HEMOGLOBIN 8.9 GM/DL (13.0-17.0); MEAN CELL VOLUME 90.4 FL (80.0-100.0); MEAN CORPUSCULAR HEMOGLOBIN 29.6 PG (27.0-34.0); MEAN CORPUSCULAR HGB CONC 32.7 % (32.0-36.0); MEAN PLATELET VOLUME 9.7 FL (7.0-11.0); PLATELET COUNT 166 TH/MM3 (150-450); RED CELL DISTRIBUTION WIDTH 14.8 % (11.6-17.2); WHITE BLOOD COUNT 12.9 TH/MM3 (4.0-11.0)
[2017-08-24 06:50] LABS: BICARBONATE 27.4 MEQ/L (21.0-32.0); CALCIUM 7.9 MG/DL (8.5-10.1); CREATININE 2.77 MG/DL (0.60-1.30)
[2017-08-24] MEDS: POTASSIUM CHLOR 40 MEQ PREMIX 100 ML IV SCH ×2 (08:07→11:30)
--- NOTE | 2017-08-24 09:10 | HHI.NPPN ---
Subjective General Problems: Anemia Renal Failure: Chronic, Acute, Stage III Interval History Patient's renal function continues to improve. Needs potassium replacement. Review of Systems General Constitutional: Fatigue Objective Data Data Vital Signs Date Time Temp Pulse Resp B/P (MAP) Pulse Ox O2 Delivery O2 Flow Rate FiO2 08/24/17 04:00 97.2 78 16 131/92 (105) 96 08/24/17 04:00 74 08/24/17 00:00 81 08/24/17 00:00 97.5 77 16 142/87 (105) 95 08/23/17 20:00 74 08/23/17 20:00 97.3 69 16 153/90 (111) 100 08/23/17 16:00 97.6 77 18 122/85 (97) 96 08/23/17 12:12 80 08/23/17 12:00 97.2 81 18 126/79 (95) 100 08/23/17 09:58 98 21 -: 08/24/17 0607 08/24/17 0607 Tubes & Lines Comment urostomy, TLC right groin, right nephrostomy tube Physical Exam General Appearance: No Acute Distress, Comfortable, Malnourished Eyes Eye Exam: Pupils Equal Pulmonary Resp Exam: Clear Bilaterally, Breath Sounds Equal Cardiology CV Exam: Good Perfusion, Irregular, Arrhythmia Gastrointestinal/Abdomen GI Exam: Soft, Non-Tender, Bowel Sounds Present Musculoskeletal MS Exam: Joints Intact, Normal Tone Integumentary Skin Exam: Warm, Dry, Intact Extremeties Extremities Exam: No Edema Neurologic Neuro Exam: Alert, Awake, Oriented, Speech Clear Psychiatric Psych Exam: Appropriate Responses Assessment/Plan Discussed Condition With: Patient Assessment Summary: SANDI/Acute Renal Failure, Hypotension, CKD Stage III Electrolyte Assessment: Hypernatremia, Metabolic Acidosis Problem List: (1) Acute renal failure ICD Codes: N17.9 - Acute kidney failure, unspecified Status: Acute Plan: SANDI on CKD 3, baseline creatinine is 1.7, GFR 37 SANDI due to sepsis, dehydration and ureteral obstruction from stone. Renal function is gradually improving, no need for dialysis. Continue hypotonic fluids to correct hypernatremia Replace potassium. (2) Sepsis ICD Codes: A41.9 - Sepsis, unspecified organism Status: Resolved Plan: Source: UTI and pyonephritis He had purulent fluid removed from kidney during nephrostomy tube placement On Zosyn. ID is following. Also on Levaquin Monitor clinically (3) Supratherapeutic INR ICD Codes: R79.1 - Abnormal coagulation profile Status: Acute Plan: INR improved, s/p vitamin K (4) Metabolic acidosis ICD Codes: E87.2 - Acidosis Status: Resolved Plan: Improving High anion gap metabolic acidosis, due to renal failure Continue to monitor renal panel Problem Qualifiers (1) Acute renal failure: Qualified Codes: N17.9 - Acute kidney failure, unspecified (2) Sepsis: Qualified Codes: A41.9 - Sepsis, unspecified organism Rajeev Gaona MD Aug 24, 2017 09:10
[2017-08-24] MEDS: HYDROCORTISONE SOD SUCCINATE 100 MG VIAL IV PUSH SCH ×2 (09:52→21:25)
[2017-08-24] MEDS: FAMOTIDINE 20 MG/2 ML VIAL IV PUSH SCH ×2 (09:52→21:25)
[2017-08-24] MEDS: SODIUM CHLORIDE 0.9% FLUSH 10 ML FLUSH IV FLUSH SCH ×2 (09:53→21:25)
[2017-08-24] MEDS: NADOLOL 20 MG TAB PO SCH (09:53)
[2017-08-24] MEDS: LEVOFLOXACIN 500 MG PREMIX INJ 100 ML IV SCH (15:47)
--- NOTE | 2017-08-24 15:57 | HHI.PR ---
Subjective Remarks Patient wants to go home. Denies cp/sob. Afebrile. Objective Vitals Vital Signs Date Time Temp Pulse Resp B/P (MAP) Pulse Ox O2 Delivery O2 Flow Rate FiO2 08/24/17 12:00 97.5 68 17 141/81 (101) 98 08/24/17 11:42 98 08/24/17 08:03 97.1 71 17 133/78 (96) 98 08/24/17 04:00 97.2 78 16 131/92 (105) 96 08/24/17 04:00 74 08/24/17 00:00 81 08/24/17 00:00 97.5 77 16 142/87 (105) 95 08/23/17 20:00 74 08/23/17 20:00 97.3 69 16 153/90 (111) 100 08/23/17 16:00 97.6 77 18 122/85 (97) 96 I/O 08/23/17 08/23/17 08/23/17 08/24/17 08/24/17 08/24/17 07:00 15:00 23:00 07:00 15:00 23:00 Intake Total 1350 ml 290 ml 1150 ml Output Total 900 ml 1000 ml 1850 ml Balance 450 ml -1000 ml 290 ml -700 ml Intake Oral 240 ml 100 ml IV Total 1350 ml 50 ml 1050 ml Output Urine Total 1400 ml Drainage Total 900 ml 1000 ml 450 ml # Bowel Movements 1 1 Result Diagram: 08/24/17 0607 08/24/17 0607 Imaging Last Impressions Nephrostomy 08/18/17 0000 Signed Impressions: Service Date/Time: July 09:59 - CONCLUSION: 1. Uncomplicated nephrostomy tube placement. Approximately 40 cc of thick odorous purulent fluid was removed from the collecting system. Large sample submitted for a Gram stain and C&S. Gerald Castrejon MD Renal Ultrasound 08/17/17 0000 Signed Impressions: Service Date/Time: Thursday, August 17, 2017 08:16 - CONCLUSION: 1. Bilateral renal calculi with an obstructing 1.2 x 0.8 x 1.1 cm proximal right ureteral calculus. Persistent moderate to severe right-sided hydronephrosis. Findings are consistent with CT exam although some of the renal calculi are not documented on this ultrasound exam. 2. Simple bilateral renal cysts. Gerald Castrejon MD Abdomen/Pelvis CT 08/17/17 0000 Signed Impressions: Service Date/Time: Thursday, August 17, 2017 10:08 - CONCLUSION: 1. 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 2. Mild anasarca. Trace free fluid in the pelvis. 3. 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 4. Multiple calcified gallstones. 5. Postoperative cystectomy with urostomy. Tarik Wrorell MD Pelvis X-Ray 08/16/17 0000 Signed Impressions: Service Date/Time: Wednesday, August 16, 2017 13:15 - CONCLUSION: No acute abnormality. Juan Pablo Coleman Jr., MD Head CT 08/16/17 0000 Signed Impressions: Service Date/Time: Wednesday, August 16, 2017 12:18 - CONCLUSION: 1. No acute intracranial abnormality. 2. 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 3. Atrophy and chronic lacunar infarctions. Juan Pablo Coleman Jr., MD Chest X-Ray 08/16/17 0000 Signed Impressions: Service Date/Time: Wednesday, August 16, 2017 13:15 - CONCLUSION: 1. Vague area of nodularity projecting over the first rib on the left. A new finding from the prior study. I cannot exclude a parenchymal nodule. Consider a followup outpatient CT of the thorax. 2. Otherwise, no acute cardiopulmonary disease. Juan Pablo Coleman Jr., MD Objective Remarks GENERAL: Patient is 77 yo lying in bed in NAD SKIN: Warm and dry. HEAD: Normocephalic. EYES: No scleral icterus. No injection or drainage. NECK: Supple, trachea midline. No JVD or lymphadenopathy. CARDIOVASCULAR: Regular rate and rhythm without murmurs, gallops, or rubs. RESPIRATORY: Breath sounds equal bilaterally. No accessory muscle use. GASTROINTESTINAL: Abdomen soft, non-tender, nondistended. RLQ ileal conduit/ urostomy MUSCULOSKELETAL: No cyanosis, or edema. Neuro: Awake and alert. nonfocal grossly Medications and IVs Current Medications Medications (Trade) Dose Ordered Sig/Marko Route Start Time Stop Time Status Last Admin (NS Flush) 2 ml UNSCH PRN IV FLUSH 08/16/17 14:30 08/18/17 08:16 (NS Flush) 2 ml BID IV FLUSH 08/16/17 21:00 08/24/17 09:53 (Tylenol) 650 mg Q4H PRN PO 08/16/17 14:30 08/23/17 14:17 (Zofran Inj) 4 mg Q6H PRN IVP 08/16/17 14:30 (Narcan Inj) 0.4 mg UNSCH PRN IV PUSH 08/16/17 14:30 (Milk Of Magnesia Liq) 30 ml Q12H PRN PO 08/16/17 14:30 (Senokot) 17.2 mg Q12H PRN PO 08/16/17 14:30 (Dulcolax Supp) 10 mg DAILY PRN RECTAL 08/16/17 14:30 (Lactulose Liq) 30 ml DAILY PRN PO 08/16/17 14:30 (Brethine Inj) 1 mg UNSCH PRN SQ 08/16/17 22:30 Piperacillin Sod/ Tazobactam Sod 50 ml @ 100 mls/hr Q8H IV 08/16/17 23:00 08/24/17 15:20 (Pepcid Inj) 10 mg Q12H IV PUSH 08/17/17 10:00 08/24/17 09:52 Miscellaneous Information Patient in critical care unit? Ass... [id number] 08/18/17 03:15 Levofloxacin/ Dextrose 100 ml @ 100 mls/hr Q48H IV 08/18/17 15:00 08/24/17 15:47 (SoluCORTEF INJ) 25 mg Q12HR IV PUSH 08/20/17 09:00 08/24/17 09:52 Dextrose 1,000 ml @ 75 mls/hr [id number] IV 08/21/17 09:30 08/24/17 03:47 (Catapres) 0.1 mg Q6H PRN PO 08/22/17 13:00 08/22/17 13:35 (Corgard) 20 mg DAILY PO 08/23/17 09:00 08/24/17 09:53 Potassium Chloride 100 ml @ 25 mls/hr Q4H IV 08/24/17 08:00 08/24/17 15:59 08/24/17 11:30 A/P Problem List: (1) Sepsis ICD Code: A41.9 - Sepsis, unspecified organism Status: Resolved (2) Complicated UTI (urinary tract infection) ICD Code: N39.0 - Urinary tract infection, site not specified Status: Resolved (3) SANDI (acute kidney injury) ICD Code: N17.9 - Acute kidney failure, unspecified Status: Acute (4) CKD (chronic kidney disease), stage III ICD Code: N18.3 - Chronic kidney disease, stage 3 (moderate) Status: Chronic (5) Supratherapeutic INR ICD Code: R79.1 - Abnormal coagulation profile Status: Resolved (6) Metabolic acidosis ICD Code: E87.2 - Acidosis Status: Resolved (7) Atrial fibrillation with RVR ICD Code: I48.91 - Unspecified atrial fibrillation (8) Hypovolemic shock ICD Code: R57.1 - Hypovolemic shock (9) Bacteremia ICD Code: R78.81 - Bacteremia (10) Anemia ICD Code: D64.9 - Anemia, unspecified Status: Chronic (11) Obstructive uropathy ICD Code: N13.9 - Obstructive and reflux uropathy, unspecified Status: Resolved (12) Hydronephrosis of right kidney ICD Code: N13.30 - Unspecified hydronephrosis (13) Generalized weakness ICD Code: R53.1 - Weakness (14) Leukocytosis ICD Code: D72.829 - Elevated white blood cell count, unspecified Status: Acute (15) Thrombocytopenia ICD Code: D69.6 - Thrombocytopenia, unspecified Assessment and Plan (1) Sepsis This is a 77yM with history of afib on coumadin, liver cancer, parotid cancer, bladder cancer s/p ileostomy and stage IV CKD (baseline Cr 1.7) who presented after he had a fall with weakness at home. he was brought in by [facility] and in the ED he was found to be in acute renal failure, hypotensive, severely dehydrated. He was admitted for ivf and nephrology consultation. despite 3L ivf resuscitation, he was persistently hypotensive. His anion gap is worsening, and his serum bicarbonate is falling despite fluid resuscitation. He was also started on phenylephrine for vasopressor support. During the night, his became worsening tachycardic and diltiazem was started. Critical care medicine is consulted to evaluate and manage his worsening shock, his hypotension, and his acute kidney injury. Sepsis secondary to Proteus and UTI and pyelonephritis. Present on admission. The patient was initially admitted to the intensive care unit and managed by the acting section chief. The patient was hypotensive so was started on Brian-Synephrine and a percutaneous nephrostomy tube was placed by IR on 12/17 secondary to severe right hydronephrosis with obstructive uropathy. The patient initially treated with IV vancomycin and IV Zosyn. ID consulted. IV vancomycin discontinued. Continue IV Zosyn and antibiotics as per ID recommendations. Sepsis has clinically resolved. Continue to monitor vital signs. 08/24 DC IV antibiotics and start oral Levaquin for a total of 14 days. (2) Complicated UTI (urinary tract infection) Plan: Urine culture positive for Providencia stuartii and Escherichia coli. Antibiotics as per ID. (3) SANDI (acute kidney injury) Plan: SANDI combination of dehydration, hypovolemia and obstructive uropathy. Monitor renal function, I/O's, avoid nephrotoxins s/p right perc nephrostomy tube placement by IR 08/18 Renal is following- Dr. Gaona. Continue with IV fluids as per renal. Cr decreasing, nephrostomy in place Urology is following Renal function is gradually improving, no need for dialysis. (4) CKD (chronic kidney disease), stage III Plan: baseline creatinine is 1.7, GFR 37. Management as above. (5) Supratherapeutic INR Plan: INR improved, s/p vitamin K follow INR, resume Coumadin (6) Metabolic acidosis Plan: High anion gap metabolic acidosis, due to renal failure - resolved Continue to monitor renal panel (7) Atrial fibrillation with RVR Continue Nadolol. Rate controlled (8) Hypovolemic shock Plan: Resolved, sp IV fluid and vasopresor support while in the ICU with Brian- Synephrine. Hypovolemic shock secondary to UTI and pyelonephritis. (9) Bacteremia Plan: Gram-negative bacteremia. Blood cultures grew Escherichia coli and Proteus Vulgaris. Antibiotics as per ID. (10) Anemia Plan: Anemia with unclear etiology, likely chronic disease. Hemoglobin remained stable at 9.0. Continue to monitor CBC. (11) Obstructive uropathy Plan: Status post percutaneous nephrostomy tube. (12) Hydronephrosis of right kidney Plan: Patient with history of bladder cancer. Secondary to ureteral stone. Status post nephrostomy tube. (13) Generalized weakness Plan: PT consulted. Recommended rehabilitation however patient is refusing to be discharged to rehabilitation and wants to go home. (14) Leukocytosis Plan: No evidence of acute infection. Patient is afebrile. WBCs trending down and the patient is on hydrocortisone which will be tapered to prednisone. (15) Thrombocytopenia Plan: Possible consumption coagulopathy. Platelets are trending up and now 1: 30 9K. DVT prophylaxis SCDs. Discharge Planning Discharge pending nephrology clearance and improvement of SANDI. Problem Qualifiers (1) Sepsis: Qualified Codes: A41.9 - Sepsis, unspecified organism (2) Anemia: Qualified Codes: D64.9 - Anemia, unspecified (3) Leukocytosis: Qualified Codes: D72.829 - Elevated white blood cell count, unspecified Shawn Caballero MD Aug 24, 2017 15:57
--- NOTE | 2017-08-24 17:36 | HHI.PR ---
Addendum to Inpatient Note Additional Information I will be OOT thru 08/31/2017 [employer] willn cover for me for that period of time Plan to complete 14 days of abx transition to oral levaquine if remains afebrile and improves clinically reconsult ID if further questions Della Rocha MD Aug 24, 2017 17:36
[2017-08-25] VITALS (9 sets, daily range): BP systolic 104–136; BP diastolic 69–82; PULSE 64–88; RESP 16–19; TEMP 97.2–98.6; O2SAT 97–99
[2017-08-25] MEDS: PIPERACIL-TAZO 2.25 GM PREMIX 50 ML IV SCH (00:04)
[2017-08-25] MEDS: DEXTROSE 5% IN WATE 1000ML INJ 1,000 ML IV SCH ×2 (05:20→18:56)
[2017-08-25] MEDS: SODIUM CHLORIDE 0.9% FLUSH 10 ML FLUSH IV FLUSH SCH ×2 (08:45→19:52)
[2017-08-25] MEDS: HYDROCORTISONE SOD SUCCINATE 100 MG VIAL IV PUSH SCH ×2 (08:46→19:52)
[2017-08-25 09:39] LABS: ALBUMIN 1.9 GM/DL (3.4-5.0); BICARBONATE 26.6 MEQ/L (21.0-32.0); CALCIUM 7.3 MG/DL (8.5-10.1); CREATININE 2.71 MG/DL (0.60-1.30); MAGNESIUM 1.3 MG/DL (1.5-2.5); PHOSPHORUS 3.8 MG/DL (2.5-4.9)
[2017-08-25] MEDS ORDERED: LEVOFLOXACIN 750 MG TAB PO SCH (10:00)
--- NOTE | 2017-08-25 10:12 | HHI.NPPN ---
Subjective General Problems: Anemia Renal Failure: Chronic, Acute, Stage III Interval History Renal function, sodium, and potassium levels have improved. He is on D5W. Wanting to be discharged, slightly confused. (Lydia Olson) Review of Systems General Constitutional: Fatigue (Lydia Olson) Objective Data Data Vital Signs Date Time Temp Pulse Resp B/P (MAP) Pulse Ox O2 Delivery O2 Flow Rate FiO2 08/25/17 08:00 97.2 86 19 111/73 (86) 98 08/25/17 04:00 70 08/25/17 04:00 97.4 83 16 106/76 (86) 97 08/25/17 00:00 97.3 88 18 117/80 (92) 97 08/25/17 00:00 78 08/24/17 20:00 81 08/24/17 20:00 97.7 84 18 123/81 (95) 100 08/24/17 16:01 81 08/24/17 16:00 97.9 70 17 138/78 (98) 98 08/24/17 12:13 75 08/24/17 12:00 97.5 68 17 141/81 (101) 98 08/24/17 11:42 98 (Lydia Olson) -: 08/24/17 0607 08/25/17 0819 Tubes & Lines: Estevez Tubes & Lines Comment urostomy, right nephrostomy tube (Lydia Olson) Physical Exam General Appearance: Well Developed, No Acute Distress, Comfortable, Malnourished (Lydia Olson) Eyes Eye Exam: Pupils Equal (Lydia Olson) Throat Throat Remarks very dry mucous membranes (Lydia Olson) Pulmonary Resp Exam: Clear Bilaterally, Breath Sounds Equal (Lydia Olson) Cardiology CV Exam: Good Perfusion, Irregular, Arrhythmia (Lydia Olson) Gastrointestinal/Abdomen GI Exam: Soft, Non-Tender, Bowel Sounds Present (Lydia Olson) Genitourinary Remarks right nephrostomy tube (Lydia Olson) Musculoskeletal MS Exam: Joints Intact, Normal Tone (Lydia Olson) Integumentary Skin Exam: Warm, Dry, Intact (Lydia Olson) Extremeties Extremities Exam: No Edema, Pedal Pulses Palpable (Lydia Olson) Neurologic Neuro Exam: Alert, Awake, Speech Clear, Moving All Extremities Neuro Remarks slightly confused (Lydia Olson) Psychiatric Psych Exam: Appropriate Responses (Lydia Olson) Assessment/Plan Discussed Condition With: Patient Assessment Summary: SANDI/Acute Renal Failure, Hypotension, CKD Stage III Electrolyte Assessment: Hypernatremia, Hypokalemia, Hypomagnesemia, Metabolic Acidosis Problem List: (1) Acute renal failure ICD Codes: N17.9 - Acute kidney failure, unspecified Status: Acute Plan: SANDI on CKD 3, baseline creatinine is 1.7, GFR 37 SANDI due to sepsis, dehydration and ureteral obstruction from stone. S/P nephrostomy tube placement on 08/18; he is non oliguric. Renal function is gradually improving. Continue hypotonic fluids to correct hypernatremia, on D5W @ 75ml/hr. Oral fluid intake encouraged. On thickened liquids. Poor appetite. Replace potassium and magnesium. Repeat labs in AM. (2) Sepsis ICD Codes: A41.9 - Sepsis, unspecified organism Status: Resolved Plan: Source: UTI and pyonephritis He had purulent fluid removed from kidney during nephrostomy tube placement On PO Levaquin Monitor clinically (3) Supratherapeutic INR ICD Codes: R79.1 - Abnormal coagulation profile Status: Acute Plan: INR improved, s/p vitamin K (4) Metabolic acidosis ICD Codes: E87.2 - Acidosis Status: Resolved Plan: Corrected High anion gap metabolic acidosis was due to renal failure Continue to monitor renal panel (Lydia Olson) Plan patient was seen and examined. Agree with above assessment and plan. Replace potassium. Encourage oral intake. (Rajeev Gaona MD) Problem Qualifiers (1) Acute renal failure: Qualified Codes: N17.9 - Acute kidney failure, unspecified (2) Sepsis: Qualified Codes: A41.9 - Sepsis, unspecified organism Lydia Olson Aug 25, 2017 10:12 Rajeev Gaona MD Aug 25, 2017 14:42
[2017-08-25] MEDS ORDERED: POTASSIUM CHLORIDE 25 MEQ EFFERVESCENT TAB PO ONE (10:15)
[2017-08-25] MEDS ORDERED: MAGNESIUM OXIDE 400 MG TAB PO ONE (10:15)
[2017-08-25] MEDS: NADOLOL 20 MG TAB PO SCH (10:34)
[2017-08-25] MEDS: FAMOTIDINE 20 MG/2 ML VIAL IV PUSH SCH ×2 (11:11→19:52)
--- NOTE | 2017-08-25 13:04 | HHI.PR ---
Subjective Remarks wants to go home. Denies cp/sob afebrile. Denies diarrhea. Objective Vitals Vital Signs Date Time Temp Pulse Resp B/P (MAP) Pulse Ox O2 Delivery O2 Flow Rate FiO2 08/25/17 12:00 Room Air 08/25/17 12:00 76 08/25/17 10:26 67 118/82 (94) 99 08/25/17 08:41 64 08/25/17 08:00 Room Air 08/25/17 08:00 97.2 86 19 111/73 (86) 98 08/25/17 04:00 70 08/25/17 04:00 97.4 83 16 106/76 (86) 97 08/25/17 00:00 97.3 88 18 117/80 (92) 97 08/25/17 00:00 78 08/24/17 20:00 81 08/24/17 20:00 97.7 84 18 123/81 (95) 100 08/24/17 16:01 81 08/24/17 16:00 97.9 70 17 138/78 (98) 98 I/O 08/24/17 08/24/17 08/24/17 08/25/17 08/25/17 08/25/17 06:59 14:59 22:59 06:59 14:59 22:59 Intake Total 1150 ml 610 ml 290 ml Output Total 1850 ml 1650 ml Balance -700 ml 610 ml -1360 ml Intake Oral 100 ml 360 ml 240 ml IV Total 1050 ml 250 ml 50 ml Output Urine Total 1400 ml 550 ml Drainage Total 450 ml 1100 ml # Bowel Movements 1 1 1 Result Diagram: 08/24/17 0607 08/25/17 0819 Imaging Last Impressions Nephrostomy 08/18/17 0000 Signed Impressions: Service Date/Time: July 09:59 - CONCLUSION: 1. Uncomplicated nephrostomy tube placement. Approximately 40 cc of thick odorous purulent fluid was removed from the collecting system. Large sample submitted for a Gram stain and C&S. Gerald Castrejon MD Renal Ultrasound 08/17/17 0000 Signed Impressions: Service Date/Time: Thursday, August 17, 2017 08:16 - CONCLUSION: 1. Bilateral renal calculi with an obstructing 1.2 x 0.8 x 1.1 cm proximal right ureteral calculus. Persistent moderate to severe right-sided hydronephrosis. Findings are consistent with CT exam although some of the renal calculi are not documented on this ultrasound exam. 2. Simple bilateral renal cysts. Gerald Castrejon MD Abdomen/Pelvis CT 08/17/17 0000 Signed Impressions: Service Date/Time: Thursday, August 17, 2017 10:08 - CONCLUSION: 1. 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 2. Mild anasarca. Trace free fluid in the pelvis. 3. 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 4. Multiple calcified gallstones. 5. Postoperative cystectomy with urostomy. Tarik Worrell MD Pelvis X-Ray 08/16/17 0000 Signed Impressions: Service Date/Time: Wednesday, August 16, 2017 13:15 - CONCLUSION: No acute abnormality. Juan Pablo Coleman Jr., MD Head CT 08/16/17 0000 Signed Impressions: Service Date/Time: Wednesday, August 16, 2017 12:18 - CONCLUSION: 1. No acute intracranial abnormality. 2. 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 3. Atrophy and chronic lacunar infarctions. Juan Pablo Coleman Jr., MD Chest X-Ray 08/16/17 0000 Signed Impressions: Service Date/Time: Wednesday, August 16, 2017 13:15 - CONCLUSION: 1. Vague area of nodularity projecting over the first rib on the left. A new finding from the prior study. I cannot exclude a parenchymal nodule. Consider a followup outpatient CT of the thorax. 2. Otherwise, no acute cardiopulmonary disease. Juan Pablo Coleman Jr., MD Objective Remarks GENERAL: Patient is 77 yo lying in bed in NAD SKIN: Warm and dry. HEAD: Normocephalic. EYES: No scleral icterus. No injection or drainage. NECK: Supple, trachea midline. No JVD or lymphadenopathy. CARDIOVASCULAR: Regular rate and rhythm without murmurs, gallops, or rubs. RESPIRATORY: Breath sounds equal bilaterally. No accessory muscle use. GASTROINTESTINAL: Abdomen soft, non-tender, nondistended. RLQ ileal conduit/ urostomy MUSCULOSKELETAL: No cyanosis, or edema. Neuro: Awake and alert. nonfocal grossly Medications and IVs Current Medications Medications (Trade) Dose Ordered Sig/Marko Route Start Time Stop Time Status Last Admin (NS Flush) 2 ml UNSCH PRN IV FLUSH 08/16/17 14:30 08/18/17 08:16 (NS Flush) 2 ml BID IV FLUSH 08/16/17 21:00 08/25/17 08:45 (Tylenol) 650 mg Q4H PRN PO 08/16/17 14:30 08/23/17 14:17 (Zofran Inj) 4 mg Q6H PRN IVP 08/16/17 14:30 (Narcan Inj) 0.4 mg UNSCH PRN IV PUSH 08/16/17 14:30 (Milk Of Magnesia Liq) 30 ml Q12H PRN PO 08/16/17 14:30 (Senokot) 17.2 mg Q12H PRN PO 08/16/17 14:30 (Dulcolax Supp) 10 mg DAILY PRN RECTAL 08/16/17 14:30 (Lactulose Liq) 30 ml DAILY PRN PO 08/16/17 14:30 (Brethine Inj) 1 mg UNSCH PRN SQ 08/16/17 22:30 (Pepcid Inj) 10 mg Q12H IV PUSH 08/17/17 10:00 08/25/17 11:11 Miscellaneous Information Patient in critical care unit? Ass... [id number] 08/18/17 03:15 (SoluCORTEF INJ) 25 mg Q12HR IV PUSH 08/20/17 09:00 08/25/17 08:46 Dextrose 1,000 ml @ 75 mls/hr [id number] IV 08/21/17 09:30 08/25/17 05:20 (Catapres) 0.1 mg Q6H PRN PO 08/22/17 13:00 08/22/17 13:35 (Corgard) 20 mg DAILY PO 08/23/17 09:00 08/25/17 10:34 (Levaquin) 750 mg Q48H PO 08/25/17 10:00 08/25/17 11:10 A/P Problem List: (1) Sepsis ICD Code: A41.9 - Sepsis, unspecified organism Status: Resolved (2) Complicated UTI (urinary tract infection) ICD Code: N39.0 - Urinary tract infection, site not specified Status: Resolved (3) SANDI (acute kidney injury) ICD Code: N17.9 - Acute kidney failure, unspecified Status: Acute (4) CKD (chronic kidney disease), stage III ICD Code: N18.3 - Chronic kidney disease, stage 3 (moderate) Status: Chronic (5) Supratherapeutic INR ICD Code: R79.1 - Abnormal coagulation profile Status: Resolved (6) Metabolic acidosis ICD Code: E87.2 - Acidosis Status: Resolved (7) Atrial fibrillation with RVR ICD Code: I48.91 - Unspecified atrial fibrillation (8) Hypovolemic shock ICD Code: R57.1 - Hypovolemic shock (9) Bacteremia ICD Code: R78.81 - Bacteremia (10) Anemia ICD Code: D64.9 - Anemia, unspecified Status: Chronic (11) Obstructive uropathy ICD Code: N13.9 - Obstructive and reflux uropathy, unspecified Status: Resolved (12) Hydronephrosis of right kidney ICD Code: N13.30 - Unspecified hydronephrosis (13) Generalized weakness ICD Code: R53.1 - Weakness (14) Leukocytosis ICD Code: D72.829 - Elevated white blood cell count, unspecified Status: Acute (15) Thrombocytopenia ICD Code: D69.6 - Thrombocytopenia, unspecified (16) Hypernatremia ICD Code: E87.0 - Hyperosmolality and hypernatremia Status: Acute Plan: Sodium went up to 151, patient started on hypotonic saline and sodium is trending down. 146 today(08/25). continue to monitor BMP. Assessment and Plan (1) Sepsis This is a 77yM with history of afib on coumadin, liver cancer, parotid cancer, bladder cancer s/p ileostomy and stage IV CKD (baseline Cr 1.7) who presented after he had a fall with weakness at home. he was brought in by [facility] and in the ED he was found to be in acute renal failure, hypotensive, severely dehydrated. He was admitted for ivf and nephrology consultation. despite 3L ivf resuscitation, he was persistently hypotensive. His anion gap is worsening, and his serum bicarbonate is falling despite fluid resuscitation. He was also started on phenylephrine for vasopressor support. During the night, his became worsening tachycardic and diltiazem was started. Critical care medicine is consulted to evaluate and manage his worsening shock, his hypotension, and his acute kidney injury. Sepsis secondary to Proteus and UTI and pyelonephritis. Present on admission. The patient was initially admitted to the intensive care unit and managed by the compensation vice president. The patient was hypotensive so was started on Brian-Synephrine and a percutaneous nephrostomy tube was placed by IR on 12/17 secondary to severe right hydronephrosis with obstructive uropathy. The patient initially treated with IV vancomycin and IV Zosyn. ID consulted. IV vancomycin discontinued. Continue IV Zosyn and antibiotics as per ID recommendations. Sepsis has clinically resolved. Continue to monitor vital signs. 08/24 DC IV antibiotics and start oral Levaquin for a total of 14 days. (2) Complicated UTI (urinary tract infection) Plan: Urine culture positive for Providencia stuartii and Escherichia coli. Antibiotics as per ID. (3) SANDI (acute kidney injury) Plan: SANDI combination of dehydration, hypovolemia and obstructive uropathy. Monitor renal function, I/O's, avoid nephrotoxins s/p right perc nephrostomy tube placement by IR 08/18 Renal is following- Dr. Gaona. Continue with IV fluids as per renal. Cr decreasing, nephrostomy in place Urology is following Renal function is gradually improving, no need for dialysis. (4) CKD (chronic kidney disease), stage III Plan: baseline creatinine is 1.7, GFR 37. Management as above. (5) Supratherapeutic INR Plan: INR improved, s/p vitamin K follow INR, resume Coumadin (6) Metabolic acidosis Plan: High anion gap metabolic acidosis, due to renal failure - resolved Continue to monitor renal panel (7) Atrial fibrillation with RVR Continue Nadolol. Rate controlled (8) Hypovolemic shock Plan: Resolved, sp IV fluid and vasopresor support while in the ICU with Brian- Synephrine. Hypovolemic shock secondary to UTI and pyelonephritis. (9) Bacteremia Plan: Gram-negative bacteremia. Blood cultures grew Escherichia coli and Proteus Vulgaris. Antibiotics as per ID. (10) Anemia Plan: Anemia with unclear etiology, likely chronic disease. Hemoglobin remained stable at 9.0. Continue to monitor CBC. (11) Obstructive uropathy Plan: Status post percutaneous nephrostomy tube. (12) Hydronephrosis of right kidney Plan: Patient with history of bladder cancer. Secondary to ureteral stone. Status post nephrostomy tube. (13) Generalized weakness Plan: PT consulted. Recommended rehabilitation however patient is refusing to be discharged to rehabilitation and wants to go home. (14) Leukocytosis Plan: No evidence of acute infection. Patient is afebrile. WBCs trending down and the patient is on hydrocortisone which will be tapered to prednisone. (15) Thrombocytopenia Plan: Possible consumption coagulopathy. 08/25 thrombocytopenia resolved. Now 166 k. DVT prophylaxis SCDs. Discharge Planning Discharge pending nephrology clearance and improvement of SANDI. Patient still with elevated creatinine and mildly elevated sodium on hypotonic saline. Problem Qualifiers (1) Sepsis: Qualified Codes: A41.9 - Sepsis, unspecified organism (2) Anemia: Qualified Codes: D64.9 - Anemia, unspecified (3) Leukocytosis: Qualified Codes: D72.829 - Elevated white blood cell count, unspecified Shawn Caballero MD Aug 25, 2017 13:04
--- NOTE | 2017-08-25 13:06 | HHI.FF ---
Face to Face Verification Diagnosis: (1) Hypernatremia (2) Complicated UTI (urinary tract infection) (3) Supratherapeutic INR (4) SANDI (acute kidney injury) (5) CKD (chronic kidney disease), stage III (6) Metabolic acidosis (7) Sepsis (8) Obstructive uropathy (9) Thrombocytopenia (10) Anemia (11) Atrial fibrillation with RVR (12) Hydronephrosis of right kidney (13) Generalized weakness Physical Therapy Order: Improve ambulation, Strength and gait training Home Health Nursing Order: Signs/symptoms of disease process Nursing assessment with vital signs I have seen patient Juan Pablo Gordon on 08/25/17. My clinical findings support the need for the requested home health care services because: Limited ability to care for self Need for psychosocial assistance High risk of falls Infection w/ risk of complications I certify that my clinical findings support that this patient is homebound because: Unsteady gait/balance Unsafe to leave home unassisted Unable to use public transportation Shawn Caballero MD Aug 25, 2017 13:06
[2017-08-26] VITALS (7 sets, daily range): BP systolic 99–129; BP diastolic 61–80; PULSE 64–91; RESP 18–20; TEMP 97.4–98.5; O2SAT 97–100
[2017-08-26 08:03] LABS: CREATININE 2.57 MG/DL (0.60-1.30); PHOSPHORUS 3.1 MG/DL (2.5-4.9)
[2017-08-26] MEDS: NADOLOL 20 MG TAB PO SCH (08:38)
[2017-08-26] MEDS: HYDROCORTISONE SOD SUCCINATE 100 MG VIAL IV PUSH SCH (08:39)
[2017-08-26] MEDS: SODIUM CHLORIDE 0.9% FLUSH 10 ML FLUSH IV FLUSH SCH (08:40)
[2017-08-26] MEDS: FAMOTIDINE 20 MG/2 ML VIAL IV PUSH SCH (08:57)
[2017-08-26] MEDS ORDERED: POTASSIUM CHLORIDE 20 MEQ PWD PACKET PO ONE (10:00)
--- NOTE | 2017-08-26 10:04 | HHI.NPPN ---
Subjective General Problems: Anemia Renal Failure: Chronic, Acute, Stage III Interval History Renal function is better. Sodium has normalized. slightly hypokelemic. Still on D5W. His oral intake is extremely poor. He was evaluated by psychiatry because yesterday he told the RN, "If I am not discharged I am going to kill myself". He does not remember saying this. (Lydia Olson) Review of Systems General Constitutional: Fatigue (Lydia Olson) Objective Data Data Vital Signs Date Time Temp Pulse Resp B/P (MAP) Pulse Ox O2 Delivery O2 Flow Rate FiO2 08/26/17 08:00 97.4 68 20 104/61 (75) 97 08/26/17 04:00 80 08/26/17 04:00 97.4 75 18 119/64 (82) 98 08/26/17 00:30 98.5 79 18 129/80 (96) 97 08/26/17 00:00 71 08/25/17 20:34 98.6 73 18 136/78 (97) 99 08/25/17 20:00 68 08/25/17 20:00 Room Air 08/25/17 18:07 Room Air 08/25/17 16:00 Room Air 08/25/17 16:00 98.3 80 18 111/69 (83) 99 08/25/17 16:00 71 08/25/17 12:00 Room Air 08/25/17 12:00 76 08/25/17 12:00 97.5 83 18 104/72 (83) 99 08/25/17 10:26 67 118/82 (94) 99 (Lydia Olson) -: 08/24/17 0607 08/26/17 0618 Tubes & Lines: Estevez Tubes & Lines Comment urostomy, right nephrostomy tube (Lydia Olson) Physical Exam General Appearance: Well Developed, No Acute Distress, Comfortable, Malnourished (Lydia Olsno) Eyes Eye Exam: Pupils Equal (Lydia Olson) Throat Throat Remarks very dry mucous membranes (Lydia Olson) Pulmonary Resp Exam: Clear Bilaterally, Breath Sounds Equal (Lydia Olson) Cardiology CV Exam: Good Perfusion, Irregular, Arrhythmia (Lydia Olson) Gastrointestinal/Abdomen GI Exam: Soft, Non-Tender, Bowel Sounds Present (Lydia Olson) Genitourinary Remarks right nephrostomy tube (Lydia Olson) Musculoskeletal MS Exam: Joints Intact, Normal Tone (Lydia Olson) Integumentary Skin Exam: Warm, Dry, Intact (Lydia Olson) Extremeties Extremities Exam: No Edema, Pedal Pulses Palpable (Lydia Olson) Neurologic Neuro Exam: Alert, Awake, Speech Clear, Moving All Extremities Neuro Remarks slightly confused (Lydia Olson) Psychiatric Psych Exam: Appropriate Responses (Lydia Olson) Assessment/Plan Discussed Condition With: Patient Assessment Summary: SANDI/Acute Renal Failure, Dehydration, Malnutrition, Hypertension, CKD Stage III Electrolyte Assessment: Hypokalemia, Hypomagnesemia Problem List: (1) Acute renal failure ICD Codes: N17.9 - Acute kidney failure, unspecified Status: Acute Plan: SANDI on CKD 3, baseline creatinine is 1.7, GFR 37 SANDI due to sepsis, dehydration and ureteral obstruction from stone. Non oliguric, S/P nephrostomy tube placement on 08/18 Renal function is gradually improving. Hypernatremia corrected, change IVF to D5 1/2NS @ 50 cc/hr until discharge. His fluid intake is minimal, solid intake is also poor. States he has appetite does not like the food. On thickened liquids Replace potassium, repeat magnesium level is in process. Avoid NSAIDs. (2) Sepsis ICD Codes: A41.9 - Sepsis, unspecified organism Status: Resolved Plan: Source: UTI and pyonephritis He had purulent fluid removed from kidney during nephrostomy tube placement On PO Levaquin Monitor clinically, currently afebrile (3) Supratherapeutic INR ICD Codes: R79.1 - Abnormal coagulation profile Status: Acute Plan: Coumadin was not restarted INR 1.2, defer to medical team. (4) Metabolic acidosis ICD Codes: E87.2 - Acidosis Status: Resolved Plan: Corrected High anion gap metabolic acidosis was due to renal failure Plan He is refusing SNF placement. Son is coming from [place] to care for him, should be flying in today. If son is able to assist, it may be safe for the patient to be discharged. Needs to follow with urology within 1-2 weeks after discharge. PO fluid intake is encouraged. (Lydia Olson) Plan patient was seen and examined. Renal function is improving. Replace potassium. Possible discharge today. (Rajeev Gaona MD) Problem Qualifiers (1) Acute renal failure: Qualified Codes: N17.9 - Acute kidney failure, unspecified (2) Sepsis: Qualified Codes: A41.9 - Sepsis, unspecified organism Lydia Olson Aug 26, 2017 10:04 Rajeev Gaona MD Aug 26, 2017 13:51
[2017-08-26] MEDS ORDERED: WARFARIN SOD 3 MG TAB PO ONE (10:45)
[2017-08-26] MEDS ORDERED: DEXT 5%-NACL 0.45% 1000 ML INJ 1,000 ML IV SCH (11:00)
--- NOTE | 2017-08-26 13:03 | PD.PSY.CON ---
Provisional Diagnosis Admission Date Aug 16, 2017 at 14:29 [place] II. Adjustment disorder with depressed mood, psychological factors affecting a medical condition. [place] III. Deferred History of Present Illness Service Psychiatry Consult Requested By Dr. Feliciano Reason for Consult Decision-making capacity Primary Care Physician [facility] HPI The patient is a 77 years old man, domiciled alone in [place], single, he has a son, supported by patient, without no previous psychiatric history, no previous psychiatric hospitalizations, no previous suicidal attempts , he has a significant medical history of hypertension, CKD stage III,who has been hospitalized for several days due to acute renal failure, sepsis, supratherapeutic INR, metabolic acidosis, who has been recommended to go to SNF after discharge, he has been refusing, but due to his limited ability to take care of himself, limited ambulation and risk of fall and high risk for delirium , has been consulted to psychiatry to assess his decision-making capacity to refuse placement.I have reviewed chart. I have discussed the case with Dr. Fleiciano personally. On psychiatric evaluation patient is calm, cooperative, pleasant. Patient says that he wants to go back home. Patient says that he does not need to go to subacute rehabilitation. He was to follow medical recommendations was to continue his medications, but he says he doesnt understand why he cannot go home. Patient is unable to elaborate about the reason of his hospitalization. He says that his son is coming today for [place] and he prefers the his son discussed with the doctors about the discharge plan. He denies depressive symptoms, he denies anhedonia, he denies hopelessness, he denies helplessness, he denies anxiety, patient is future oriented, he denies suicidal and homicidal ideation, he denies visual and auditory hallucinations. Patient is oriented 3. However, patient is unable to elaborate a good understanding and appreciation of current medical situation and about the consequences of leaving AMA and not following medical recommendations regarding discharge plan.patient denies the use of alcohol and illicit drugs. Review of Systems Constitutional: DENIES: Diaphoretic episodes, Fatigue, Fever, Weight gain, Weight loss, Chills, Dizziness, Change in appetite, Night Sweats Endocrine: DENIES: Heat/cold intolerance, Polydipsia, Polyuria, Polyphagia Eyes: DENIES: Blurred vision, Diplopia, Eye inflammation, Eye pain, Vision loss , Photosensitivity, Double Vision Ears, nose, mouth, throat: DENIES: Tinnitus, Hearing loss, Vertigo, Nasal discharge, Oral lesions, Throat pain, Hoarseness, Ear Pain, Running Nose, Epistaxis, Sinus Pain, Toothache, Odynophagia Cardiovascular: DENIES: Chest pain, Palpitations, Syncope, Dyspnea on Exertion , PND, Lower Extremity Edema, Orthopnea, Claudication Gastrointestinal: DENIES: Abdominal pain, Black stools, Bloody stools, Constipation, Diarrhea, Nausea, Vomiting, Difficulty Swallowing, Anorexia Genitourinary: DENIES: Sexual dysfunction, Urinary frequency, Urinary incontinence, Urgency, Hematuria, Dysuria, Nocturia, Penile Discharge, Testicular Pain, Testicular Swelling Musculoskeletal: DENIES: Joint pain, Muscle aches, Stiffness, Joint Swelling, Back pain, Neck pain Integumentary: DENIES: Abnormal pigmentation, Nail changes, Pruritus, Rash Hematologic/lymphatic: DENIES: Bruising, Lymphadenopathy Immunologic/allergic: DENIES: Eczema, Urticaria Neurologic: DENIES: Abnormal gait, Headache, Localized weakness, Paresthesias, Seizures, Speech Problems, Tremor, Poor Balance Psychiatric: DENIES: Anxiety, Confusion, Mood changes, Depression, Hallucinations, Agitation, Suicidal Ideation, Homicidal Ideation, Delusions Past Family Social History Coded Allergies: crab (Unverified Allergy, Intermediate, Rash, 08/16/17) Blue Shell crab causes severe rash all over face and neck. Needs PCN to help clear it up. Patient CAN eat Shrimp and clams, scallops, oysters without problems. Reported Medications Warfarin (Warfarin) 3 Mg Tab, 3 MG PO DAILY for Blood Clot Prevention, #30 TAB 0 Refills 08/16/17 Pilocarpine (Pilocarpine) 5 Mg Tab, 5 MG PO DAILY for Dry Mouth, #90 TAB 0 Refills 01/21/17 Loratadine (Hm Loratadine) 10 Mg Tab, 1 TAB PO DAILY 01/21/17 Trazodone (Trazodone) 150 Mg Tablet, 50 MG PO HS 01/21/17 Nadolol (Nadolol) 20 Mg Tab, 20 MG PO DAILY, #30 TAB 0 Refills 01/21/17 Atorvastatin (Atorvastatin) 20 Mg Tab, 20 MG PO HS for Cholesterol Management, # 30 TAB 0 Refills 01/21/17 Current Medications Medications (Trade) Dose Ordered Sig/Marko Route Start Time Stop Time Status Last Admin (NS Flush) 2 ml UNSCH PRN IV FLUSH 08/16/17 14:30 08/18/17 08:16 (NS Flush) 2 ml BID IV FLUSH 08/16/17 21:00 08/26/17 08:40 (Tylenol) 650 mg Q4H PRN PO 08/16/17 14:30 08/23/17 14:17 (Zofran Inj) 4 mg Q6H PRN IVP 08/16/17 14:30 (Narcan Inj) 0.4 mg UNSCH PRN IV PUSH 08/16/17 14:30 (Milk Of Magnesia Liq) 30 ml Q12H PRN PO 08/16/17 14:30 (Senokot) 17.2 mg Q12H PRN PO 08/16/17 14:30 (Dulcolax Supp) 10 mg DAILY PRN RECTAL 08/16/17 14:30 (Lactulose Liq) 30 ml DAILY PRN PO 08/16/17 14:30 (Brethine Inj) 1 mg UNSCH PRN SQ 08/16/17 22:30 (Pepcid Inj) 10 mg Q12H IV PUSH 08/17/17 10:00 08/26/17 08:57 Miscellaneous Information Patient in critical care unit? Ass... Q361D .XX 08/18/17 03:15 (SoluCORTEF INJ) 25 mg Q12HR IV PUSH 08/20/17 09:00 08/26/17 08:39 (Catapres) 0.1 mg Q6H PRN PO 08/22/17 13:00 08/22/17 13:35 (Corgard) 20 mg DAILY PO 08/23/17 09:00 08/25/17 10:34 (Levaquin) 750 mg Q48H PO 08/25/17 10:00 08/25/17 11:10 Dextrose/Sodium Chloride 1,000 ml @ 50 mls/hr Q20H IV 08/26/17 11:00 08/26/17 12:19 (KCl) 30 meq ONCE ONCE PO 08/26/17 15:00 08/26/17 15:01 Family Psych History He denies family psychiatric history Social History Patient was born and raised in [facility], he lives along in [place] , single, he has one son, supported by attention, 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 Patient's Strengths (min. 2) No previous psychiatric history Physical Exam No EPS, no tremors, no psychomotor agitation retardation Vital Signs Vital Signs Date Time Temp Pulse Resp B/P (MAP) Pulse Ox O2 Delivery O2 Flow Rate FiO2 08/26/17 12:05 Room Air 08/26/17 12:01 97.9 78 20 99/61 (74) 100 08/23/17 09:58 21 I/O 08/26/17 08/26/17 08/27/17 08:00 16:00 00:00 Intake Total 780 ml Output Total 850 ml Balance -70 ml Lab Results Test 08/26/17 06:18 Blood Urea Nitrogen 54 MG/DL Creatinine 2.57 MG/DL Random Glucose 118 MG/DL Albumin 2.0 GM/DL Calcium Level 7.0 MG/DL Phosphorus Level 3.1 MG/DL Sodium Level 143 MEQ/L Potassium Level 3.1 MEQ/L Chloride Level 107 MEQ/L Carbon Dioxide Level 26.0 MEQ/L Anion Gap 10 MEQ/L Estimat Glomerular Filtration Rate 24 ML/MIN Magnesium Level 1.3 MG/DL Date/Time Source Procedure Growth Status 08/18/17 13:34 Blood Peripheral Aerobic Blood Culture - Final NO GROWTH IN 5 DAYS Complete 08/18/17 13:34 Blood Peripheral Anaerobic Blood Culture - Final NO GROWTH IN 5 DAYS Complete 08/18/17 10:50 Fluid Other Gram Stain - Final Complete 08/18/17 10:50 Body Fluid Culture - Final Proteus Vulgaris Escherichia Coli Morganella Morganii Complete 08/16/17 17:00 Urine Clean Catch Urine Culture - Final Providencia Stuartii Escherichia Coli Complete Mental Status Examination Appearance: Appropriate Consciousness: Alert Orientation: x4 Motor Activity: Normal gait Speech: Unremarkable Language: Adequate Fund of Knowledge: Adequate Attention and Concentration: Adequate Memory: Unremarkable Mood: Appropriate Affect: Appropriate Thought Process & Associations: Intact Thought Content: Appropriate Hallucination Type: None Delusion Type: None Suicidal Ideation: No Suicidal Plan: No Suicidal Intention: No Homicidal Ideation: No Homicidal Plan: No Homicidal Intention: No Insight: Adequate Judgment: Adequate Assessment & Plan Problem List: (1) Psychological factors affecting medical condition ICD Codes: F54 - Psychological and behavioral factors associated with disorders or diseases classified elsewhere Assessment & Plan: On psychiatric evaluation today the patient does not present symptomatology of depression, anxiety, stacy or psychosis. Patient denies suicidal and homicidal ideation, he denies visual and auditory hallucinations. Patient does not meet criteria for involuntary psychiatric admission at this moment. No psychotropics recommended. Since the patient is unable to verbalize a good understanding and appreciation of current medical conditions, and he doesn't seem to have a logical explanation of his choice of going home and refusing to go to SNF, ignoring the negative consequences that this could have in the detriment of his health and life, he definitely doesn't have decision-making capacity to refuse placement at this moment. In this case , his son who is coming from [place] today she'll be the designated health care by proxy to help the patient to take decisions. Consult appreciated. Assessment & Plan Estimated LOS: Barrett Anaya MD Aug 26, 2017 13:03
[2017-08-26] MEDS ORDERED: LEVA750T9 PO (14:01)
--- NOTE | 2017-08-26 14:24 | HHI.PR ---
Subjective Remarks as per RN patient having diarrhea Patient wants to go home Denies cp/sob. K low Objective Vitals Vital Signs Date Time Temp Pulse Resp B/P (MAP) Pulse Ox O2 Delivery O2 Flow Rate FiO2 08/26/17 12:05 Room Air 08/26/17 12:01 97.9 78 20 99/61 (74) 100 08/26/17 12:00 64 08/26/17 09:00 Room Air 08/26/17 08:00 97.4 68 20 104/61 (75) 97 08/26/17 08:00 78 08/26/17 04:00 80 08/26/17 04:00 97.4 75 18 119/64 (82) 98 08/26/17 00:30 98.5 79 18 129/80 (96) 97 08/26/17 00:00 71 08/25/17 20:34 98.6 73 18 136/78 (97) 99 08/25/17 20:00 68 08/25/17 20:00 Room Air 08/25/17 18:07 Room Air 08/25/17 16:00 Room Air 08/25/17 16:00 98.3 80 18 111/69 (83) 99 08/25/17 16:00 71 I/O 08/25/17 08/25/17 08/25/17 08/26/17 08/26/17 08/26/17 06:59 14:59 22:59 06:59 14:59 22:59 Intake Total 1080 ml 360 ml 780 ml Output Total 1650 ml 700 ml 850 ml Balance -570 ml -340 ml -70 ml Intake Oral 240 ml 360 ml IV Total 840 ml 780 ml Output Urine Total 550 ml 0 ml Drainage Total 1100 ml 700 ml 850 ml # Bowel Movements 1 1 Result Diagram: 08/24/17 0607 08/26/17 0618 Imaging Last Impressions Nephrostomy 08/18/17 0000 Signed Impressions: Service Date/Time: July 09:59 - CONCLUSION: 1. Uncomplicated nephrostomy tube placement. Approximately 40 cc of thick odorous purulent fluid was removed from the collecting system. Large sample submitted for a Gram stain and C&S. Gerald Castrejon MD Renal Ultrasound 08/17/17 0000 Signed Impressions: Service Date/Time: Thursday, August 17, 2017 08:16 - CONCLUSION: 1. Bilateral renal calculi with an obstructing 1.2 x 0.8 x 1.1 cm proximal right ureteral calculus. Persistent moderate to severe right-sided hydronephrosis. Findings are consistent with CT exam although some of the renal calculi are not documented on this ultrasound exam. 2. Simple bilateral renal cysts. Gerald Castrejon MD Abdomen/Pelvis CT 08/17/17 0000 Signed Impressions: Service Date/Time: Thursday, August 17, 2017 10:08 - CONCLUSION: 1. 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 2. Mild anasarca. Trace free fluid in the pelvis. 3. 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 4. Multiple calcified gallstones. 5. Postoperative cystectomy with urostomy. Tarik Worrell MD Pelvis X-Ray 08/16/17 0000 Signed Impressions: Service Date/Time: Wednesday, August 16, 2017 13:15 - CONCLUSION: No acute abnormality. Juan Pablo Coleman Jr., MD Head CT 08/16/17 0000 Signed Impressions: Service Date/Time: Wednesday, August 16, 2017 12:18 - CONCLUSION: 1. No acute intracranial abnormality. 2. 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 3. Atrophy and chronic lacunar infarctions. Juan Pablo Coleman Jr., MD Chest X-Ray 08/16/17 0000 Signed Impressions: Service Date/Time: Wednesday, August 16, 2017 13:15 - CONCLUSION: 1. Vague area of nodularity projecting over the first rib on the left. A new finding from the prior study. I cannot exclude a parenchymal nodule. Consider a followup outpatient CT of the thorax. 2. Otherwise, no acute cardiopulmonary disease. Juan Pablo Coleman Jr., MD Objective Remarks GENERAL: Patient is 77 yo lying in bed in NAD SKIN: Warm and dry. HEAD: Normocephalic. EYES: No scleral icterus. No injection or drainage. NECK: Supple, trachea midline. No JVD or lymphadenopathy. CARDIOVASCULAR: Regular rate and rhythm without murmurs, gallops, or rubs. RESPIRATORY: Breath sounds equal bilaterally. No accessory muscle use. GASTROINTESTINAL: Abdomen soft, non-tender, nondistended. RLQ ileal conduit/ urostomy MUSCULOSKELETAL: No cyanosis, or edema. Neuro: Awake and alert. nonfocal grossly Medications and IVs Current Medications Medications (Trade) Dose Ordered Sig/Marko Route Start Time Stop Time Status Last Admin (NS Flush) 2 ml UNSCH PRN IV FLUSH 08/16/17 14:30 08/18/17 08:16 (NS Flush) 2 ml BID IV FLUSH 08/16/17 21:00 08/26/17 08:40 (Tylenol) 650 mg Q4H PRN PO 08/16/17 14:30 08/23/17 14:17 (Zofran Inj) 4 mg Q6H PRN IVP 08/16/17 14:30 (Narcan Inj) 0.4 mg UNSCH PRN IV PUSH 08/16/17 14:30 (Milk Of Magnesia Liq) 30 ml Q12H PRN PO 08/16/17 14:30 (Senokot) 17.2 mg Q12H PRN PO 08/16/17 14:30 (Dulcolax Supp) 10 mg DAILY PRN RECTAL 08/16/17 14:30 (Lactulose Liq) 30 ml DAILY PRN PO 08/16/17 14:30 (Brethine Inj) 1 mg UNSCH PRN SQ 08/16/17 22:30 (Pepcid Inj) 10 mg Q12H IV PUSH 08/17/17 10:00 08/26/17 08:57 Miscellaneous Information Patient in critical care unit? Ass... Q361D .XX 08/18/17 03:15 (SoluCORTEF INJ) 25 mg Q12HR IV PUSH 08/20/17 09:00 08/26/17 08:39 (Catapres) 0.1 mg Q6H PRN PO 08/22/17 13:00 08/22/17 13:35 (Corgard) 20 mg DAILY PO 08/23/17 09:00 08/25/17 10:34 (Levaquin) 750 mg Q48H PO 08/25/17 10:00 08/25/17 11:10 Dextrose/Sodium Chloride 1,000 ml @ 50 mls/hr Q20H IV 08/26/17 11:00 08/26/17 12:19 (KCl) 30 meq ONCE ONCE PO 08/26/17 15:00 08/26/17 15:01 A/P Problem List: (1) Sepsis ICD Code: A41.9 - Sepsis, unspecified organism Status: Resolved (2) Complicated UTI (urinary tract infection) ICD Code: N39.0 - Urinary tract infection, site not specified Status: Resolved (3) SANDI (acute kidney injury) ICD Code: N17.9 - Acute kidney failure, unspecified Status: Acute (4) CKD (chronic kidney disease), stage III ICD Code: N18.3 - Chronic kidney disease, stage 3 (moderate) Status: Chronic (5) Supratherapeutic INR ICD Code: R79.1 - Abnormal coagulation profile Status: Resolved (6) Metabolic acidosis ICD Code: E87.2 - Acidosis Status: Resolved (7) Atrial fibrillation with RVR ICD Code: I48.91 - Unspecified atrial fibrillation (8) Hypovolemic shock ICD Code: R57.1 - Hypovolemic shock (9) Bacteremia ICD Code: R78.81 - Bacteremia (10) Anemia ICD Code: D64.9 - Anemia, unspecified Status: Chronic (11) Obstructive uropathy ICD Code: N13.9 - Obstructive and reflux uropathy, unspecified Status: Resolved (12) Hydronephrosis of right kidney ICD Code: N13.30 - Unspecified hydronephrosis Status: Resolved (13) Generalized weakness ICD Code: R53.1 - Weakness Status: Acute (14) Leukocytosis ICD Code: D72.829 - Elevated white blood cell count, unspecified Status: Acute (15) Thrombocytopenia ICD Code: D69.6 - Thrombocytopenia, unspecified (16) Hypernatremia ICD Code: E87.0 - Hyperosmolality and hypernatremia Status: Acute (17) Fall at home ICD Code: W19.XXXA - Unspecified fall, initial encounter; Y92.099 - Unspecified place in other non-institutional residence as the place of occurrence of the external cause (18) Nephrostomy status ICD Code: Z93.6 - Other artificial openings of urinary tract status Status: Acute (19) Ureteral stone with hydronephrosis ICD Code: N13.2 - Hydronephrosis with renal and ureteral calculous obstruction Status: Acute (20) Psychological factors affecting medical condition ICD Code: F54 - Psychological and behavioral factors associated with disorders or diseases classified elsewhere Status: Acute Plan: Psychiatric consultation was obtained after the patient ate some suicidal comments on date 08/25. The patient was evaluate by psychiatry and does not meet criteria for involuntary psychiatric admission at this moment. No psychotropics recommended at this time. However the patient is unable to verbalize a good understanding and appreciated of current medical conditions and he doesn't seem to have a logical explanation off his choice of going home and to refuse to go to SNF, ignoring the negative consequences that this could have on his health and life. I discussed the case with the psychiatrist and I believe alone with the psychiatrist that the patient lacks decision-making capacity to refuse placements at this moment. I have discussed the case with the 2 patient's son that came from [place] to see the patient. At this moment given that they are predesignated healthcare by proxies, they both decided to place the patient on a SNF. (21) Diarrhea ICD Code: R19.7 - Diarrhea, unspecified Plan: Patient at risk for C diff. Will check stool for C diff PCR. Patient may be discharged if C diff negative. Assessment and Plan (1) Sepsis This is a 77yM with history of afib on coumadin, liver cancer, parotid cancer, bladder cancer s/p ileostomy and stage IV CKD (baseline Cr 1.7) who presented after he had a fall with weakness at home. he was brought in by [facility] and in the ED he was found to be in acute renal failure, hypotensive, severely dehydrated. He was admitted for ivf and nephrology consultation. despite 3L ivf resuscitation, he was persistently hypotensive. His anion gap is worsening, and his serum bicarbonate is falling despite fluid resuscitation. He was also started on phenylephrine for vasopressor support. During the night, his became worsening tachycardic and diltiazem was started. Critical care medicine is consulted to evaluate and manage his worsening shock, his hypotension, and his acute kidney injury. Sepsis secondary to Proteus and UTI and pyelonephritis. Present on admission. The patient was initially admitted to the intensive care unit and managed by the independent marketing consultant. The patient was hypotensive so was started on Brian-Synephrine and a percutaneous nephrostomy tube was placed by IR on 12/17 secondary to severe right hydronephrosis with obstructive uropathy. The patient initially treated with IV vancomycin and IV Zosyn. ID consulted. IV vancomycin discontinued. Continue IV Zosyn and antibiotics as per ID recommendations. Sepsis has clinically resolved. Continue to monitor vital signs. 08/24 DC IV antibiotics and start oral Levaquin for a total of 14 days. (2) Complicated UTI (urinary tract infection) Plan: Urine culture positive for Providencia stuartii and Escherichia coli. Antibiotics as per ID. (3) SANDI (acute kidney injury) Plan: SANDI combination of dehydration, hypovolemia and obstructive uropathy. Monitor renal function, I/O's, avoid nephrotoxins s/p right perc nephrostomy tube placement by IR 08/18 Renal is following- Dr. Gaona. Continue with IV fluids as per renal. Cr decreasing, nephrostomy in place Urology is following Renal function is gradually improving, no need for dialysis. (4) CKD (chronic kidney disease), stage III Plan: baseline creatinine is 1.7, GFR 37. Management as above. (5) Supratherapeutic INR Plan: INR improved, s/p vitamin K follow INR, resume Coumadin (6) Metabolic acidosis Plan: High anion gap metabolic acidosis, due to renal failure - resolved Continue to monitor renal panel (7) Atrial fibrillation with RVR Continue Nadolol. Rate controlled (8) Hypovolemic shock Plan: Resolved, sp IV fluid and vasopresor support while in the ICU with Brian- Synephrine. Hypovolemic shock secondary to UTI and pyelonephritis. (9) Bacteremia Plan: Gram-negative bacteremia. Blood cultures grew Escherichia coli and Proteus Vulgaris. Antibiotics as per ID. (10) Anemia Plan: Anemia with unclear etiology, likely chronic disease. Hemoglobin remained stable at 9.0. Continue to monitor CBC. (11) Obstructive uropathy Plan: Status post percutaneous nephrostomy tube. (12) Hydronephrosis of right kidney Plan: Patient with history of bladder cancer. Secondary to ureteral stone. Status post nephrostomy tube. (13) Generalized weakness Plan: PT consulted. Recommended rehabilitation however patient is refusing to be discharged to rehabilitation and wants to go home. (14) Leukocytosis Plan: No evidence of acute infection. Patient is afebrile. WBCs trending down and the patient is on hydrocortisone which will be tapered to prednisone. (15) Thrombocytopenia Plan: Possible consumption coagulopathy. 08/25 thrombocytopenia resolved. Now 166 k. DVT prophylaxis SCDs. Discharge Planning Discharge pending nephrology clearance and improvement of SANDI. Patient still with elevated creatinine and mildly elevated sodium on hypotonic saline. Problem Qualifiers (1) Sepsis: Qualified Codes: A41.9 - Sepsis, unspecified organism (2) Anemia: Qualified Codes: D64.9 - Anemia, unspecified (3) Leukocytosis: Qualified Codes: D72.829 - Elevated white blood cell count, unspecified (4) Fall at home: Qualified Codes: W19.XXXD - Unspecified fall, subsequent encounter; Y92.099 - Unspecified place in other non-institutional residence as the place of occurrence of the external cause (5) Diarrhea: Qualified Codes: R19.7 - Diarrhea, unspecified Shawn Caballero MD Aug 26, 2017 14:24
[2017-08-26] MEDS ORDERED: POTASSIUM CHLORIDE 10 MEQ CONTROLLED RELEASE TAB PO ONE (15:00)
[2017-08-26] MEDS ORDERED: LEVOFLOXACIN 750 MG PREMIX INJ 150 ML IV SCH (16:00)
[2017-08-26] MEDS ORDERED: WARFARIN SOD 3 MG TAB PO SCH (16:00)
[2017-08-27] MEDS ORDERED: WARFARIN SOD 3 MG TAB PO SCH (16:00)
== END 2017-08-26 18:09 | DRG 871 ==
LOC: PHED 12:08 → PHEDA 14:29 → PHICU 17:38 → HIME 08-18 02:45 → N04B 08-22 14:53
PROVIDERS: ADMIT Hospitalist; ATTEND Hospitalist
PROC: 0T9030Z Drainage of Right Kidney with Drainage Device, Percutaneous Approach (ICD-10-PCS; principal; 2017-08-18)
PROC: BT1D1ZZ Fluoroscopy of Right Kidney, Ureter and Bladder using Low Osmolar Contrast (ICD-10-PCS; 2017-08-18)
PROC: 30233K1 Transfusion of Nonautologous Frozen Plasma into Peripheral Vein, Percutaneous Approach (ICD-10-PCS; 2017-08-18)
DX: A41.59 Other Gram-negative sepsis (principal); R57.1 Hypovolemic shock; G93.41 Metabolic encephalopathy; N17.9 Acute kidney failure, unspecified; E87.2 Acidosis; E87.0 Hyperosmolality and hypernatremia; D69.59 Other secondary thrombocytopenia; N18.3 Chronic kidney disease, stage 3 (moderate); N39.0 Urinary tract infection, site not specified; M62.82 Rhabdomyolysis; N13.6 Pyonephrosis; J98.11 Atelectasis; A41.51 Sepsis due to Escherichia coli [E. coli]; E86.0 Dehydration; I48.91 Unspecified atrial fibrillation; E86.1 Hypovolemia; R53.1 Weakness; B96.89 Other specified bacterial agents as the cause of diseases classified elsewhere; R19.7 Diarrhea, unspecified; R79.1 Abnormal coagulation profile; B96.20 Unspecified Escherichia coli [E. coli] as the cause of diseases classified elsewhere; E87.6 Hypokalemia; E83.51 Hypocalcemia; F54 Psychological and behavioral factors associated with disorders or diseases classified elsewhere; Z85.51 Personal history of malignant neoplasm of bladder; Z93.2 Ileostomy status; Z87.891 Personal history of nicotine dependence; Z79.01 Long term (current) use of anticoagulants; Z85.818 Personal history of malignant neoplasm of other sites of lip, oral cavity, and pharynx; Z23 Encounter for immunization
CPT/HCPCS: 36430; 36600; 50432; 70450; 71010; 72170; 74176; 76775; 76937; 80048; 80053; 80069; 80202; 81001; 82043; 82533; 82550; 82552; 82570; 82805; 82948; 83605; 83690; 83735; 83874; 84100; 84132; 84155; 84300; 84443; 84484; 85007; 85025; 85027; 85384; 85610; 85730; 86022; 86160; 86850; 86900; 86901; 86927; 87040; 87070; 87077; 87086; 87186; 87205; 87641; 90686; 93005; 94150; 94640; 94667; 94668; 96360; 96361; 99152; 99153; C1729; C1769; C1894; J1160; J1720; J1956; J2250; J2370; J2543; J3010; J3370; J3430; J3480; J7030; J7040; J7050; J7060; J7070; J7120; P9017; P9045; Q2038; Q9967

== ENCOUNTER 2017-09-09 17:46 | Emergency (ER) | payer MEDICARE, BC ==
[~2017-09-09] VITALS: Ht 182.9 cm; Wt 75.0 kg
[~2017-09-09 17:46] MED LIST changes: -CEPH-460 PO; +LEVA750T9 PO; -LORA10TA7 PO; -PILO5TAB3 PO; -VANCOMYCIN 1,000 MG/NS 250 ML IV ONE; -WARF4TAB52 PO
[2017-09-09 18:10] VITALS: BP 119/55; PULSE 75; RESP 16; TEMP 97.7; O2SAT 97
[2017-09-09 20:34] VITALS: BP 120/58; PULSE 81; RESP 16; TEMP 97.7; O2SAT 100
--- NOTE | 2017-09-09 20:53 | PD ---
HPI Chief Complaint: Abnormal Results Time Seen by Provider: 20:44 Travel History International Travel<30 days: No Contact w/Intl Traveler<30days: No Traveled to known affect area: No History of Present Illness HPI 77-year-old male presents to emergency department for evaluation. Patient presents from [facility] for acute renal failure. Patient states that he has been more tired as of late. He has had a decreased appetite. He denies any pain. Patient has history of bladder cancer and a parotid mass. He does have a urostomy in place. He states that his urine output has been less as well. Denies any fever or chills. Denies any nausea or vomiting. Patient has no other symptoms reported this time. PFSH Past Medical History Hx Anticoagulant Therapy: Yes Arthritis: No Atrial Fibrillation: Yes Heart Rhythm Problems: No Cancer: Yes (bladder ca) Cardiovascular Problems: Yes (Arrhythmia ) High Cholesterol: Yes Chemotherapy: Yes Chest Pain: No Congestive Heart Failure: No Diminished Hearing: No Endocrine: No Gastrointestinal Disorders: No Genitourinary: Yes (bladder cancer) Hypertension: No Immune Disorder: No Implanted Vascular Access Dvce: Yes Neurologic: No Psychiatric: No Respiratory: No Radiation Therapy: Yes (46 treatments) Seizures: No Past Surgical History Abdominal Surgery: No Cardiac Surgery: No Ear Surgery: No Endocrine Surgery: Yes (Parotid Mass) Eye Surgery: No Genitourinary Surgery: Yes (bbladder cancer) Gynecologic Surgery: No Neurologic Surgery: No Oral Surgery: No Thoracic Surgery: No Other Surgery: Yes Social History Alcohol Use: Yes (BEER DAILY) Tobacco Use: No Substance Use: No Allergies-Medications (Allergen,Severity, Reaction): Coded Allergies: crab (Unverified Allergy, Intermediate, Rash, 08/16/17) Blue Shell crab causes severe rash all over face and neck. Needs PCN to help clear it up. Patient CAN eat Shrimp and clams, scallops, oysters without problems. Uncoded Allergies: LOBSTER (Adverse Reaction, Unknown, 09/09/17) Reported Meds & Prescriptions Reported Meds & Active Scripts Active Levaquin (Levofloxacin) 750 Mg Tablet 750 Mg PO Q48H Reported Trazodone (Trazodone HCl) 150 Mg Tablet 50 Mg PO HS Nadolol 20 Mg Tab 20 Mg PO DAILY Atorvastatin (Atorvastatin Calcium) 20 Mg Tab 20 Mg PO HS Review of Systems Except as stated in HPI: all other systems reviewed are Neg Physical Exam Narrative GENERAL: Well-nourished elderly male patient, sitting in bed in no acute distress. SKIN: Focused skin assessment warm/dry. HEAD: Atraumatic. Normocephalic. EYES: Pupils equal and round. No scleral icterus. No injection or drainage. ENT: No nasal bleeding or discharge. Mucous membranes pink and moist. NECK: Trachea midline. No JVD. CARDIOVASCULAR: Regular rate and irregular rhythm. RESPIRATORY: No accessory muscle use. Clear to auscultation. Breath sounds equal bilaterally. GASTROINTESTINAL: Abdomen soft, non-tender, nondistended. Hepatic and splenic margins not palpable. MUSCULOSKELETAL: No obvious deformities. No clubbing. No cyanosis. No edema. Urostomy tubing in place. NEUROLOGICAL: Awake and alert. No obvious cranial nerve deficits. Motor grossly within normal limits. Normal speech. PSYCHIATRIC: Appropriate mood and affect; insight and judgment normal. Data Data Last Documented VS Vital Signs Date Time Temp Pulse Resp B/P (MAP) Pulse Ox O2 Delivery O2 Flow Rate FiO2 09/09/17 20:34 97.7 81 16 120/58 (78) 100 Room Air Orders Orders Iv Access Insert/Monitor (09/09/17 20:52) Basic Metabolic Panel (Bmp) (09/09/17 20:52) Electrocardiogram (09/09/17 ) Urinalysis - C+S If Indicated (09/09/17 23:49) Urine Culture (09/09/17 23:50) Sodium Chlorid 0.9% 500 Ml Inj (Ns 500 M (09/10/17 02:15) Ed Discharge Order (09/10/17 02:28) Labs Laboratory Tests Test 09/09/17 22:50 09/09/17 23:50 Blood Urea Nitrogen 96 MG/DL Creatinine 4.05 MG/DL Random Glucose 88 MG/DL Calcium Level 8.2 MG/DL Sodium Level 140 MEQ/L Potassium Level 5.2 MEQ/L Chloride Level 107 MEQ/L Carbon Dioxide Level 24.3 MEQ/L Anion Gap 9 MEQ/L Estimat Glomerular Filtration Rate 14 ML/MIN Urine Color YELLOW Urine Turbidity CLEAR Urine pH 7.5 Urine Specific Man[place] 1.011 Urine Protein 30 mg/dL Urine Glucose (UA) NEG mg/dL Urine Ketones NEG mg/dL Urine Occult Blood LARGE Urine Nitrite NEG Urine Bilirubin NEG Urine Urobilinogen LESS THAN 2.0 MG/DL Urine Leukocyte Esterase LARGE Urine RBC /hpf Urine WBC 9 /hpf Urine Hyaline Casts 2 /lpf Urine Mucus FEW /lpf Microscopic Urinalysis Comment CULTURE INDICATED MDM Medical Decision Making Medical Screen Exam Complete: Yes Emergency Medical Condition: Yes Medical Record Reviewed: Yes Differential Diagnosis UTI versus acute on chronic renal failure versus electrolyte abnormality Narrative Course 77-year-old male presents to emergency department from [facility] for evaluation of acute renal failure. Patient had labs pleated outpatient today and his creatinine was 4.08. This was an increase from his discharge August 26. Patient's be urine was 100. Patient does appear overall well but states that he has been more tired with decreased appetite. He does have urostomy in place with yellow urine in the bag. I discussed the patient with my attending and a repeat BMP will be completed as his complete lab work was done earlier today and is on record. 2250 lab work needs to be re-collected. Laboratory Tests Test 09/09/17 22:50 09/09/17 23:50 Blood Urea Nitrogen 96 MG/DL Creatinine 4.05 MG/DL Random Glucose 88 MG/DL Calcium Level 8.2 MG/DL Sodium Level 140 MEQ/L Potassium Level 5.2 MEQ/L Chloride Level 107 MEQ/L Carbon Dioxide Level 24.3 MEQ/L Anion Gap 9 MEQ/L Estimat Glomerular Filtration Rate 14 ML/MIN Urine Color YELLOW Urine Turbidity CLEAR Urine pH 7.5 Urine Specific Man[place] 1.011 Urine Protein 30 mg/dL Urine Glucose (UA) NEG mg/dL Urine Ketones NEG mg/dL Urine Occult Blood LARGE Urine Nitrite NEG Urine Bilirubin NEG Urine Urobilinogen LESS THAN 2.0 MG/DL Urine Leukocyte Esterase LARGE Urine RBC /hpf Urine WBC 9 /hpf Urine Hyaline Casts 2 /lpf Urine Mucus FEW /lpf Microscopic Urinalysis Comment CULTURE INDICATED Lab work is reviewed. I have discussed the patient my attending physician who is also assessed the patient. Patient's creatinine is 4.05 with a be units 96. Urinalysis is complete however urine collected does appear more pink tinged. This could possibly be traumatic from turning in the bed, however there are 9 white blood cells in the patient is afebrile. Antibiotics will not be given at this time. I spoke with [place] hospitalist and after further discussion and review of the patient's chart, patient will be discharged back to [facility] where repeat lab work is recommended and follow-up with leadite heater. Diagnosis Primary Impression: Acute on chronic kidney failure Qualified Codes: N17.9 - Acute kidney failure, unspecified; N18.9 - Chronic kidney disease, unspecified Referrals: Grid Operator Primary Care Physician Patient Instructions: Chronic Kidney Disease (ED), General Instructions Additional Instructions: Lab work should be repeated to ensure renal function is not worsening Follow-up with your leadite heater Return immediately with any acute worsening symptoms Med/Other Pt SpecificInfo: No Change to Meds Disposition: 70 TRANSFER TO OTHER FACILITY Condition: Stable Nani Foley Sep 09, 2017 20:53
[2017-09-09 23:37] LABS: BICARBONATE 24.3 MEQ/L (21.0-32.0); CALCIUM 8.2 MG/DL (8.5-10.1); CREATININE 4.05 MG/DL (0.60-1.30)
[2017-09-10 00:31] LABS: BILIRUBIN, URINE NEG (NEG); BLOOD, URINE LARGE (NEG); GLUCOSE,URINE NEG (NEG); HYALINE CAST, URINE 2 /lpf (RARE); KETONE, URINE NEG (NEG); MUCUS URINE FEW /lpf (OCC); NITRITE,URINE NEG (NEG); PH, URINE 7.5 (5.0-8.5); URINE COLOR YELLOW (YELLW/STRAW); URINE LEUKOCYTE ESTERASE LARGE (NEG)
--- NOTE | 2017-09-10 00:44 | PD ---
Physical Exam Narrative I, Dr. Escobar, have reviewed the advance practice practitioner's documentation and am in agreement, met with the patient face to face, made the diagnosis, and the medical decision making was done by me. *My assessment and Findings: Acute on chronic kidney failure vs. urologic obstruction vs. failure to thrive. 77yo M was sent here from [facility] for worsening renal failure. Pt is AAOx3. Denies anything specific such as chest pain, sob, n/v, abdominal pain. Pt has nephrostomy tube and bag only had a very small amount of urine. Pt said he does not think it was empty all day but unsure. Pt was discharge with creatinine of 2.57 on 08/26/17. Pt had outpatient BUN/ creatinine of 100/4.21 which is more elevated than before so was sent in from rehab for further evaluation. Repeat BUN/creatinine is similar at 96/4.05. K is 5.2. After discussion with hospitalist, decided to transfer back to [facility] and follow up with outpatient balance staff inspector. Data Data Last Documented VS Vital Signs Date Time Temp Pulse Resp B/P (MAP) Pulse Ox O2 Delivery O2 Flow Rate FiO2 09/10/17 11:22 121/68 (85) 09/10/17 06:14 78 18 99 Nasal Cannula 3.00 09/09/17 20:34 97.7 Orders Orders Iv Access Insert/Monitor (09/09/17 20:52) Basic Metabolic Panel (Bmp) (09/09/17 20:52) Electrocardiogram (09/09/17 ) Urinalysis - C+S If Indicated (09/09/17 23:49) Urine Culture (09/09/17 23:50) Sodium Chlorid 0.9% 500 Ml Inj (Ns 500 M (09/10/17 02:15) Ed Discharge Order (09/10/17 02:28) Labs Laboratory Tests Test 09/09/17 22:50 09/09/17 23:50 Blood Urea Nitrogen 96 MG/DL Creatinine 4.05 MG/DL Random Glucose 88 MG/DL Calcium Level 8.2 MG/DL Sodium Level 140 MEQ/L Potassium Level 5.2 MEQ/L Chloride Level 107 MEQ/L Carbon Dioxide Level 24.3 MEQ/L Anion Gap 9 MEQ/L Estimat Glomerular Filtration Rate 14 ML/MIN Urine Color YELLOW Urine Turbidity CLEAR Urine pH 7.5 Urine Specific [place] 1.011 Urine Protein 30 mg/dL Urine Glucose (UA) NEG mg/dL Urine Ketones NEG mg/dL Urine Occult Blood LARGE Urine Nitrite NEG Urine Bilirubin NEG Urine Urobilinogen LESS THAN 2.0 MG/DL Urine Leukocyte Esterase LARGE Urine RBC /hpf Urine WBC 9 /hpf Urine Hyaline Casts 2 /lpf Urine Mucus FEW /lpf Microscopic Urinalysis Comment CULTURE INDICATED MDM Supervised Visit with NORBERT: Yes Interpretation(s) EKG: Afib at 79bpm. Normal axis. No ST segment elevation or depression. Diagnosis Primary Impression: Acute on chronic kidney failure Qualified Codes: N17.9 - Acute kidney failure, unspecified; N18.9 - Chronic kidney disease, unspecified Admitting Information Admitting Physician Requests: Alecia Perez DO Sep 10, 2017 00:44
[2017-09-10] MEDS ORDERED: SODIUM CHLORID 0.9% 500 ML INJ 500 ML IV ONE (02:15)
[2017-09-10 04:56] VITALS: BP 104/75; PULSE 88; RESP 16; O2SAT 100
[2017-09-10 06:14] VITALS: BP 106/68; PULSE 78; RESP 18; O2SAT 99
[2017-09-10 11:22] VITALS: BP 121/68
--- NOTE | 2017-09-10 15:14 | EKG ---
Date Performed: 09/10/2017 Time Performed: 00:52:53 PTAGE: 77 years EKG: ATRIAL FIBRILLATION ABNORMAL RHYTHM ECG PREVIOUS TRACING : 08/16/2017 12.51 Since previous tracing, no significant change noted DOCTOR: Jaydon Randle Interpretating Date/Time 09/10/2017 15:13:15
== END 2017-09-10 11:00 | disposition short-term general hospital (02) ==
LOC: NEDAMB 17:46 → NEPD 09-10 11:00
DX: C67.9 Malignant neoplasm of bladder, unspecified (principal); N17.9 Acute kidney failure, unspecified; N18.9 Chronic kidney disease, unspecified; I48.91 Unspecified atrial fibrillation; E78.00 Pure hypercholesterolemia, unspecified
CPT/HCPCS: 80048; 81001; 87086; 93005; 96360; 99284; J7040

== ENCOUNTER 2017-09-19 14:55 | Emergency (ER) | payer MEDICARE, BC ==
[2017-09-19 15:14] VITALS: BP 116/70; PULSE 87; RESP 18; TEMP 97.5; O2SAT 99
[2017-09-19] MEDS ORDERED: DIFL200T PO (15:48)
[2017-09-19] MEDS ORDERED: LOTR15T TOPICAL (15:48)
[2017-09-19] MEDS ORDERED: DULC10SU3 RECTAL (15:48)
[2017-09-19 16:24] LABS: AUTOMATED NEUTROPHIL # 4.9 TH/MM3 (1.8-7.7); BASOPHIL # 0.1 TH/MM3 (0-0.2); BASOPHIL % 0.6 % (0.0-2.0); EOSINOPHIL # 0.6 TH/MM3 (0-0.4); HEMATOCRIT 23.3 % (39.0-51.0); HEMOGLOBIN 7.8 GM/DL (13.0-17.0); LYMPH % 20.9 % (9.0-44.0); LYMPHOCYTE # 1.8 TH/MM3 (1.0-4.8); MEAN CELL VOLUME 90.2 FL (80.0-100.0); MEAN CORPUSCULAR HEMOGLOBIN 30.3 PG (27.0-34.0); MEAN CORPUSCULAR HGB CONC 33.6 % (32.0-36.0); MONO % 15.5 % (0.0-8.0); MONOCYTE # 1.3 TH/MM3 (0-0.9); PLATELET COUNT 270 TH/MM3 (150-450); RED BLOOD COUNT 2.58 MIL/MM3 (4.50-5.90); RED CELL DISTRIBUTION WIDTH 15.2 % (11.6-17.2); WHITE BLOOD COUNT 8.7 TH/MM3 (4.0-11.0)
[2017-09-19 16:43] LABS: ALBUMIN 2.4 GM/DL (3.4-5.0); ALT (GPT) 39 U/L (12-78); AST (GOT) 39 U/L (15-37); BICARBONATE 24.5 MEQ/L (21.0-32.0); BLOOD UREA NITROGEN 59 MG/DL (7-18); CALCIUM 8.4 MG/DL (8.5-10.1); CHLORIDE 101 MEQ/L (98-107); CREATININE 3.09 MG/DL (0.60-1.30); GLOMERULAR FILTRATION RATE 20 ML/MIN (>89); GLUCOSE,RANDOM 83 MG/DL (74-106); MAGNESIUM 1.7 MG/DL (1.5-2.5); SODIUM (NA) 135 MEQ/L (136-145)
[2017-09-19 16:44] LABS: ALKALINE PHOSPHATASE 158 U/L (45-117); TOTAL BILIRUBIN ADULT 0.5 MG/DL (0.2-1.0); TOTAL PROTEIN 7.1 GM/DL (6.4-8.2)
--- NOTE | 2017-09-19 16:54 | PD ---
Data Data Last Documented VS Vital Signs Date Time Temp Pulse Resp B/P (MAP) Pulse Ox O2 Delivery O2 Flow Rate FiO2 09/19/17 15:14 97.5 87 18 116/70 (85) 99 Orders Orders Complete Blood Count With Diff (09/19/17 15:25) Comprehensive Metabolic Panel (09/19/17 15:25) Prothrombin Time / Inr (Pt) (09/19/17 15:25) Act Partial Throm Time (Ptt) (09/19/17 15:25) Magnesium (Mg) (09/19/17 15:25) Iv Access Insert/Monitor (09/19/17 15:25) Ecg Monitoring (09/19/17 15:25) Oximetry (09/19/17 15:25) Type And Screen (09/19/17 15:25) Labs Laboratory Tests Test 09/19/17 15:30 White Blood Count 8.7 TH/MM3 Red Blood Count 2.58 MIL/MM3 Hemoglobin 7.8 GM/DL Hematocrit 23.3 % Mean Corpuscular Volume 90.2 FL Mean Corpuscular Hemoglobin 30.3 PG Mean Corpuscular Hemoglobin Concent 33.6 % Red Cell Distribution Width 15.2 % Platelet Count 270 TH/MM3 Mean Platelet Volume 9.0 FL Neutrophils (%) (Auto) 56.0 % Lymphocytes (%) (Auto) 20.9 % Monocytes (%) (Auto) 15.5 % Eosinophils (%) (Auto) 7.0 % Basophils (%) (Auto) 0.6 % Neutrophils # (Auto) 4.9 TH/MM3 Lymphocytes # (Auto) 1.8 TH/MM3 Monocytes # (Auto) 1.3 TH/MM3 Eosinophils # (Auto) 0.6 TH/MM3 Basophils # (Auto) 0.1 TH/MM3 CBC Comment AUTO DIFF Blood Urea Nitrogen 59 MG/DL Creatinine 3.09 MG/DL Random Glucose 83 MG/DL Total Protein 7.1 GM/DL Albumin 2.4 GM/DL Calcium Level 8.4 MG/DL Magnesium Level 1.7 MG/DL Alkaline Phosphatase 158 U/L Aspartate Amino Transf (AST/SGOT) 39 U/L Alanine Aminotransferase (ALT/SGPT) 39 U/L Total Bilirubin 0.5 MG/DL Sodium Level 135 MEQ/L Potassium Level 4.3 MEQ/L Chloride Level 101 MEQ/L Carbon Dioxide Level 24.5 MEQ/L Anion Gap 10 MEQ/L Estimat Glomerular Filtration Rate 20 ML/MIN MDM Supervised Visit with NORBERT: Yes Narrative Course The history, exam, and medical decision-making in the associated midlevel provider note were completed with my assistance. I reviewed and agree with the findings presented. I attest that I had a [id number] encounter with the patient on the same day, and personally performed and documented my assessment and findings in the medical record. *My assessment and Findings: This is a 77-year-old male who presents to the emergency department with a history of chronic kidney disease and chronic anemia with a low hemoglobin on routine lab's as an out. Patient is asymptomatic. Here in the emergency department his hemoglobin is 7.8. This is similar to mid July when his hemoglobin was 8.2. Patient is refusing a rectal exam. He really wants to go home and does not want to be admitted or transfused which I think is reasonable. Patient can follow-up as an outpatient with a transportation worker as his anemia is chronic. Venessa Sandoval MD Sep 19, 2017 16:54
--- NOTE | 2017-09-19 17:05 | PD ---
HPI Chief Complaint: Abnormal Results Time Seen by Provider: 15:08 Travel History International Travel<30 days: No Contact w/Intl Traveler<30days: No Traveled to known affect area: No History of Present Illness HPI 77-year-old male that presents to the ED for evaluation of low hemoglobin. Per patient he was sent here by his alf secondary to abnormal labs. He denies any blood in his stool or any bleeding of any kind. He states that he does not take any blood thinners. He does have a significant history of bladder cancer and has had this removed as well as has a nephrostomy tube to the right side of the back as well as urostomy bag to the right. He denies any blood from it. Per patient he follows with his railway signal technician in the rehabilitation facility who is treating him for fungal infection. Per patient his kidney function is improving as his been given new medications. The patient has no fevers chills or sweats. No symptoms of any kind. He was told to come here to get possible blood transfusion. He denies any headache. No injuries. No other medical issues. Allergies to lobster and crab. Denies any bowel movement issues including changes in coloration of the stool or redness. PFSH Past Medical History Hx Anticoagulant Therapy: Yes Arthritis: No Atrial Fibrillation: Yes Heart Rhythm Problems: No Cancer: Yes (bladder ca) Cardiovascular Problems: Yes (Arrhythmia ) High Cholesterol: Yes Chemotherapy: Yes Chest Pain: No Congestive Heart Failure: No Diminished Hearing: No Endocrine: No Gastrointestinal Disorders: No Hypertension: No Immune Disorder: No Implanted Vascular Access Dvce: Yes Neurologic: No Psychiatric: No Respiratory: No Radiation Therapy: Yes (46 treatments) Seizures: No Past Surgical History Abdominal Surgery: No Cardiac Surgery: No Ear Surgery: No Endocrine Surgery: Yes (Parotid Mass) Eye Surgery: No Genitourinary Surgery: Yes (bladder cancer) Gynecologic Surgery: No Neurologic Surgery: No Oral Surgery: No Thoracic Surgery: No Other Surgery: Yes Social History Alcohol Use: No Tobacco Use: No Substance Use: No Allergies-Medications (Allergen,Severity, Reaction): Coded Allergies: crab (Unverified Allergy, Intermediate, Rash, 09/19/17) Blue Shell crab causes severe rash all over face and neck. Needs PCN to help clear it up. Patient CAN eat Shrimp and clams, scallops, oysters without problems. Uncoded Allergies: LOBSTER (Adverse Reaction, Unknown, 09/09/17) Reported Meds & Prescriptions Reported Meds & Active Scripts Active Reported Lotrisone Topical (Betamethasone/Clotrimazole) 1-0.05% Cream 1 Applic TOPICAL TID Dulcolax Supp (Bisacodyl) 10 Mg Supp 10 Mg RECTAL DAILY PRN Diflucan (Fluconazole) 200 Mg Tab 200 Mg PO DAILY Atorvastatin (Atorvastatin Calcium) 20 Mg Tab 20 Mg PO HS Review of Systems Except as stated in HPI: all other systems reviewed are Neg Physical Exam Narrative GENERAL: SKIN: Warm and dry. Patient has a urostomy bag that appears to be in no sign of infection or leaking. Patient has a 2 on the right back that appears to be position with no leakage or deformity noted. HEAD: Atraumatic. Normocephalic. EYES: Pupils equal and round. No scleral icterus. No injection or drainage. ENT: No nasal bleeding or discharge. Mucous membranes pink and moist. Tongue is midline. No uvula deviation. NECK: Trachea midline. No JVD. CARDIOVASCULAR: Regular rate and rhythm. No murmurs, S3, S4. RESPIRATORY: No accessory muscle use. Clear to auscultation. Breath sounds equal bilaterally. GASTROINTESTINAL: Abdomen soft, non-tender, nondistended. Hepatic and splenic margins not palpable. MUSCULOSKELETAL: Extremities without clubbing, cyanosis, or edema. No obvious deformities. Full range of motion of the upper and lower extremities bilaterally. 2+ pulses bilaterally. NEUROLOGICAL: Awake and alert. No obvious cranial nerve deficits. Motor grossly within normal limits. Five out of 5 muscle strength in the arms and legs. Normal speech. PSYCHIATRIC: Appropriate mood and affect; insight and judgment normal. Data Data Last Documented VS Vital Signs Date Time Temp Pulse Resp B/P (MAP) Pulse Ox O2 Delivery O2 Flow Rate FiO2 09/19/17 15:14 97.5 87 18 116/70 (85) 99 Orders Orders Complete Blood Count With Diff (09/19/17 15:25) Comprehensive Metabolic Panel (09/19/17 15:25) Prothrombin Time / Inr (Pt) (09/19/17 15:25) Act Partial Throm Time (Ptt) (09/19/17 15:25) Magnesium (Mg) (09/19/17 15:25) Iv Access Insert/Monitor (09/19/17 15:25) Ecg Monitoring (09/19/17 15:25) Oximetry (09/19/17 15:25) Type And Screen (09/19/17 15:25) Ed Discharge Order (09/19/17 16:55) Labs Laboratory Tests Test 09/19/17 15:30 09/19/17 16:42 White Blood Count 8.7 TH/MM3 Red Blood Count 2.58 MIL/MM3 Hemoglobin 7.8 GM/DL Hematocrit 23.3 % Mean Corpuscular Volume 90.2 FL Mean Corpuscular Hemoglobin 30.3 PG Mean Corpuscular Hemoglobin Concent 33.6 % Red Cell Distribution Width 15.2 % Platelet Count 270 TH/MM3 Mean Platelet Volume 9.0 FL Neutrophils (%) (Auto) 56.0 % Lymphocytes (%) (Auto) 20.9 % Monocytes (%) (Auto) 15.5 % Eosinophils (%) (Auto) 7.0 % Basophils (%) (Auto) 0.6 % Neutrophils # (Auto) 4.9 TH/MM3 Lymphocytes # (Auto) 1.8 TH/MM3 Monocytes # (Auto) 1.3 TH/MM3 Eosinophils # (Auto) 0.6 TH/MM3 Basophils # (Auto) 0.1 TH/MM3 CBC Comment AUTO DIFF Differential Comment AUTO DIFF CONFIRMED Platelet Estimate NORMAL Platelet Morphology Comment ENLARGED Blood Urea Nitrogen 59 MG/DL Creatinine 3.09 MG/DL Random Glucose 83 MG/DL Total Protein 7.1 GM/DL Albumin 2.4 GM/DL Calcium Level 8.4 MG/DL Magnesium Level 1.7 MG/DL Alkaline Phosphatase 158 U/L Aspartate Amino Transf (AST/SGOT) 39 U/L Alanine Aminotransferase (ALT/SGPT) 39 U/L Total Bilirubin 0.5 MG/DL Sodium Level 135 MEQ/L Potassium Level 4.3 MEQ/L Chloride Level 101 MEQ/L Carbon Dioxide Level 24.5 MEQ/L Anion Gap 10 MEQ/L Estimat Glomerular Filtration Rate 20 ML/MIN Prothrombin Time 10.5 SEC Prothromb Time International Ratio 1.0 RATIO Activated Partial Thromboplast Time 27.4 SEC MDM Medical Decision Making Medical Screen Exam Complete: Yes Emergency Medical Condition: Yes Medical Record Reviewed: Yes Interpretation(s) CBC & BMP Diagram 09/19/17 15:30 Total Protein 7.1, Albumin 2.4 L, Calcium Level 8.4 L, Magnesium Level 1.7, Alkaline Phosphatase 158 H, Aspartate Amino Transf (AST/SGOT) 39 H, Alanine Aminotransferase (ALT/SGPT) 39, Total Bilirubin 0.5 Differential Diagnosis Anemia versus abnormal labs versus normal exam versus UTI versus kidney failure Narrative Course 77-year-old male that presents to the ED for evaluation of possibly needing blood transfusion. Per patient he has no history of needing transfusion in the past alert and when he was in service in the from an injury he. He denies any other medical issues other than chronic kidney disease as well as having a nephrostomy tube as well as bladder cancer in the past. Per patient he has had no chemoradiation recently. Per patient he doesn't know why he is here other than he might require blood. He denies any chest pain of any kind. No weakness or shortness of breath. Denies taking any blood thinners at this time. Denies any bleeding of any kind. Labs were done and did not show any sign of severe anemia requiring transfusion. Case was discussed in my attending Dr. Sandoval who agrees with plan. Patient is here is to go home. This time would not recommend transfusion the patient. We do recommend close follow with shower attendant as well as possible GI doctor. Patient declined multiple times rectal exam stating to his stool is "fine". Patient understands that we are proper testing we cannot completely diagnosed him. He agrees with this plan. Follow with PCP. See ED for worsening symptoms. Diagnosis Primary Impression: Anemia Qualified Codes: D64.9 - Anemia, unspecified Referrals: Bre Cooley MD,[facility] Patient Instructions: General Instructions Additional Instructions: Follow-up with shower attendant. See ED worsening symptoms. Take your medications as prescribed. Med/Other Pt SpecificInfo: No Change to Meds Disposition: 03 DISCHARGE TO SNF Condition: Stable Jerry Coreas Sep 19, 2017 17:05
[2017-09-19 17:47] LABS: PROTHROMBIN TIME - PATIENT 10.5 SEC (9.8-11.6)
== END 2017-09-19 18:55 ==
LOC: NEPE 14:55
DX: N18.9 Chronic kidney disease, unspecified (principal); D63.1 Anemia in chronic kidney disease; Z85.51 Personal history of malignant neoplasm of bladder
CPT/HCPCS: 80053; 83735; 85025; 85610; 85730; 86850; 86900; 86901; 99283

== ENCOUNTER 2017-10-17 14:54 | Emergency (ER) | payer OTHER, MEDICARE, BC ==
[~2017-10-17 14:54] MED LIST changes: +DIFL200T PO; +DULC10SU3 RECTAL; -LEVA750T9 PO; +LOTR15T TOPICAL; -NADO20TA PO; -TRAZ1TAB14 PO
[2017-10-17] MEDS ORDERED: SODIUM CHLORIDE 0.9% FLUSH 10 ML FLUSH IVF PRN (15:15)
[2017-10-17] MEDS ORDERED: SODIUM CHLOR 0.9% 1000 ML INJ 1,000 ML IV ONE (15:15)
[2017-10-17 15:37] VITALS: BP 86/54; PULSE 65; RESP 15; TEMP 97.8; O2SAT 100
--- NOTE | 2017-10-17 16:08 | RADRPT ---
EXAM DATE/TIME: 10/17/2017 15:36 [facility] COMPARISON: CHEST SINGLE AP, August 16, 2017, 13:15. INDICATIONS : Shortness of breath with right sided rib pain post fall. MEDICAL HISTORY : Carcinoma, bladder. Cardiovascular disease Parotid mass. SURGICAL HISTORY : None. ENCOUNTER: Initial ACUITY: 2 days PAIN SCORE: 5/10 LOCATION: Bilateral chest FINDINGS: A single view of the chest demonstrates the lungs to be symmetrically aerated without evidence of mas s, infiltrate or effusion. The cardiomediastinal contours are unremarkable. Osseous structures are intact. CONCLUSION: 1. No acute cardiopulmonary findings identified. Rancho Fofana MD on October 17, 2017 at 16:06 Board Certified Radiologist. This report was verified electronically.
--- NOTE | 2017-10-17 16:24 | PD ---
Physical Exam Narrative I, Dr. Roy, have reviewed the advance practice practitioner's documentation and am in agreement, met with the patient face to face, made the diagnosis, and the medical decision making was done by me. *My assessment and Findings: Patient is a 77 year old male who comes in complaining of weakness and SOB. He was just discharged from a rehab facility and says he fell over today and was unable to get back up. He did get up with assistance and was convinced to come to the ED by a friend. Exam shows no focal weakness. Lungs CTA. Data Data Last Documented VS Vital Signs Date Time Temp Pulse Resp B/P (MAP) Pulse Ox O2 Delivery O2 Flow Rate FiO2 10/17/17 17:49 82 16 112/64 (80) 96 Nasal Cannula 3.00 10/17/17 15:37 97.8 Orders Orders Complete Blood Count With Diff (10/17/17 15:11) Comprehensive Metabolic Panel (10/17/17 15:11) Act Partial Throm Time (Ptt) (10/17/17 15:11) Prothrombin Time / Inr (Pt) (10/17/17 15:11) Ckmb (Isoenzyme) Profile (10/17/17 15:11) Troponin I (10/17/17 15:11) Urinalysis - C+S If Indicated (10/17/17 15:11) Iv Access Insert/Monitor (10/17/17 15:11) Electrocardiogram (10/17/17 15:11) Ecg Monitoring (10/17/17 15:11) Oximetry (10/17/17 15:11) Chest, Single Ap (10/17/17 15:11) Sodium Chloride 0.9% Flush (Ns Flush) (10/17/17 15:15) Sodium Chlor 0.9% 1000 Ml Inj (Ns 1000 M (10/17/17 15:15) B-Type Natriuretic Peptide (10/17/17 15:13) Ct Abd/Pel W/O Iv Contrast (10/17/17 ) Ct Thorax/ Chest Wo Iv Contras (10/17/17 17:56) Ventilation & Perfusion Scan (10/17/17 ) Urine Culture (10/17/17 19:35) Ceftriaxone Inj (Rocephin Inj) (10/17/17 21:15) Labs Laboratory Tests Test 10/17/17 15:25 10/17/17 19:35 White Blood Count 9.7 TH/MM3 Red Blood Count 3.31 MIL/MM3 Hemoglobin 9.7 GM/DL Hematocrit 29.8 % Mean Corpuscular Volume 90.0 FL Mean Corpuscular Hemoglobin 29.2 PG Mean Corpuscular Hemoglobin Concent 32.4 % Red Cell Distribution Width 16.2 % Platelet Count 267 TH/MM3 Mean Platelet Volume 8.4 FL Neutrophils (%) (Auto) 72.4 % Lymphocytes (%) (Auto) 15.6 % Monocytes (%) (Auto) 9.1 % Eosinophils (%) (Auto) 2.0 % Basophils (%) (Auto) 0.9 % Neutrophils # (Auto) 7.0 TH/MM3 Lymphocytes # (Auto) 1.5 TH/MM3 Monocytes # (Auto) 0.9 TH/MM3 Eosinophils # (Auto) 0.2 TH/MM3 Basophils # (Auto) 0.1 TH/MM3 CBC Comment AUTO DIFF Differential Total Cells Counted 100 Neutrophils % (Manual) 69 % Band Neutrophils % 7 % Lymphocytes % 10 % Monocytes % 11 % Eosinophils % 3 % Neutrophils # (Manual) 7.4 TH/MM3 Differential Comment FINAL DIFF MANUAL Platelet Estimate NORMAL Platelet Morphology Comment CLUMPED Ovalocytes 1+ Prothrombin Time 29.6 SEC Prothromb Time International Ratio 2.9 RATIO Activated Partial Thromboplast Time 32.0 SEC Blood Urea Nitrogen 46 MG/DL Creatinine 4.37 MG/DL Random Glucose 86 MG/DL Total Protein 7.6 GM/DL Albumin 2.7 GM/DL Calcium Level 8.6 MG/DL Alkaline Phosphatase 118 U/L Aspartate Amino Transf (AST/SGOT) 26 U/L Alanine Aminotransferase (ALT/SGPT) 19 U/L Total Bilirubin 0.4 MG/DL Sodium Level 137 MEQ/L Potassium Level 4.8 MEQ/L Chloride Level 105 MEQ/L Carbon Dioxide Level 19.1 MEQ/L Anion Gap 13 MEQ/L Estimat Glomerular Filtration Rate 13 ML/MIN Total Creatine Kinase 75 U/L Troponin I LESS THAN 0.02 NG/ML B-Type Natriuretic Peptide 368 PG/ML Urine Color YELLOW Urine Turbidity HAZY Urine pH 6.5 Urine Specific [place] 1.013 Urine Protein 30 mg/dL Urine Glucose (UA) NEG mg/dL Urine Ketones NEG mg/dL Urine Occult Blood MOD Urine Nitrite POS Urine Bilirubin NEG Urine Urobilinogen LESS THAN 2.0 MG/DL Urine Leukocyte Esterase LARGE Urine RBC 58 /hpf Urine WBC /hpf Urine WBC Clumps MOD Urine Squamous Epithelial Cells 2 /hpf Urine Bacteria FEW /hpf Microscopic Urinalysis Comment CULTURE INDICATED MDM Supervised Visit with [facility]: Yes Narrative Course Labs show no acute abnormalities. Given some IVF. He would like to go home. Advised to follow up with his doctors. Advised to return at any time for any worsening symptoms. Scripts Cephalexin (Keflex) 500 Mg Cap 500 MG PO Q12H for Infection for 5 Days, #10 CAP 0 Refills Prov: Kelly Roy MD 10/17/17 Condition: Stable Kelly Roy MD Oct 17, 2017 16:24
[2017-10-17 16:26] LABS: BASOPHIL # 0.1 TH/MM3 (0-0.2); BASOPHIL % 0.9 % (0.0-2.0); EOSINOPHIL # 0.2 TH/MM3 (0-0.4); HEMATOCRIT 29.8 % (39.0-51.0); HEMOGLOBIN 9.7 GM/DL (13.0-17.0); LYMPH % 15.6 % (9.0-44.0); LYMPHOCYTE # 1.5 TH/MM3 (1.0-4.8); MEAN CORPUSCULAR HEMOGLOBIN 29.2 PG (27.0-34.0); MEAN CORPUSCULAR HGB CONC 32.4 % (32.0-36.0); MEAN PLATELET VOLUME 8.4 FL (7.0-11.0); MONO % 9.1 % (0.0-8.0); MONOCYTE # 0.9 TH/MM3 (0-0.9); NEUT % 72.4 % (16.0-70.0); PLATELET COUNT 267 TH/MM3 (150-450); RED BLOOD COUNT 3.31 MIL/MM3 (4.50-5.90); RED CELL DISTRIBUTION WIDTH 16.2 % (11.6-17.2); WHITE BLOOD COUNT 9.7 TH/MM3 (4.0-11.0)
[2017-10-17 16:28] LABS: INTERNATIONAL NORMALIZED RATIO 2.9 RATIO; PROTHROMBIN TIME - PATIENT 29.6 SEC (9.8-11.6)
--- NOTE | 2017-10-17 16:46 | PD ---
HPI Chief Complaint: Respiratory Distress Time Seen by Provider: 15:13 Travel History International Travel<30 days: No Contact w/Intl Traveler<30days: No History of Present Illness HPI 77-year-old male with PMH of Natividad head, on Coumadin, bladder cancer status post cystectomy with urostomy, renal insufficiency, obstructive uropathy presents to the ED for evaluation of worsening shortness of breath 1 week. Patient also complains of weakness. He denies fevers, chills, nausea, vomiting, chest pain, palpitations, abdominal pain, melena, hematochezia, changes in bowel habits. States that he was discharged from a rehabilitation 1 week ago. He endorses symptoms since that time. States that he sought treatment today at the urging a friend. PFSH Past Medical History Hx Anticoagulant Therapy: Yes Arthritis: No Atrial Fibrillation: Yes Heart Rhythm Problems: No Cancer: Yes (bladder ca) Cardiovascular Problems: Yes (Arrhythmia ) High Cholesterol: Yes Chemotherapy: Yes Chest Pain: No Congestive Heart Failure: No Diminished Hearing: No Endocrine: No Gastrointestinal Disorders: No Hypertension: No Immune Disorder: No Implanted Vascular Access Dvce: Yes Neurologic: No Psychiatric: No Respiratory: No Radiation Therapy: Yes (46 treatments) Seizures: No Tetanus Vaccination: < 5 Years Past Surgical History Abdominal Surgery: No Cardiac Surgery: No Ear Surgery: No Endocrine Surgery: Yes (Parotid Mass) Eye Surgery: No Genitourinary Surgery: Yes (bladder cancer) Gynecologic Surgery: No Neurologic Surgery: No Oral Surgery: No Thoracic Surgery: No Other Surgery: Yes Social History Alcohol Use: No Tobacco Use: No Substance Use: No Allergies-Medications (Allergen,Severity, Reaction): Coded Allergies: crab (Verified Allergy, Intermediate, Rash, 10/17/17) Blue Shell crab causes severe rash all over face and neck. Needs PCN to help clear it up. Patient CAN eat Shrimp and clams, scallops, oysters without problems. Uncoded Allergies: LOBSTER (Adverse Reaction, Unknown, 09/09/17) Reported Meds & Prescriptions Reported Meds & Active Scripts Active Keflex (Cephalexin) 500 Mg Cap 500 Mg PO Q12H 5 Days Reported Pilocarpine 5 Mg Tab 5 Mg PO Q6HR Mucus Relief ER (Guaifenesin) 600 Mg Tab 600 Mg PO BID PRN Nadolol 20 Mg Tab 20 Mg PO DAILY Coumadin (Warfarin) 1 Mg Tab 1 Mg PO DAILY Dulcolax Supp (Bisacodyl) 10 Mg Supp 10 Mg RECTAL DAILY PRN Diflucan (Fluconazole) 200 Mg Tab 200 Mg PO DAILY Atorvastatin (Atorvastatin Calcium) 20 Mg Tab 20 Mg PO HS Review of Systems Except as stated in HPI: all other systems reviewed are Neg Physical Exam Narrative GENERAL: Well-nourished, well-developed thin, chronically ill-appearing pale white male in no acute distress. SKIN: Focused skin assessment warm/dry. HEAD: Normocephalic. EYES: No scleral icterus. No injection or drainage. NECK: Supple, trachea midline. No JVD or lymphadenopathy. CARDIOVASCULAR: Regular rate and rhythm without murmurs, gallops, or rubs. RESPIRATORY: Breath sounds clear and equal bilaterally. No accessory muscle use. GASTROINTESTINAL: Abdomen soft, non-tender, nondistended. Active bowel sounds. MUSCULOSKELETAL: No cyanosis, or edema. BACK: Nontender without obvious deformity. No CVA tenderness. Data Data Last Documented VS Vital Signs Date Time Temp Pulse Resp B/P (MAP) Pulse Ox O2 Delivery O2 Flow Rate FiO2 10/17/17 17:49 82 16 112/64 (80) 96 Nasal Cannula 3.00 10/17/17 15:37 97.8 Orders Orders Complete Blood Count With Diff (10/17/17 15:11) Comprehensive Metabolic Panel (10/17/17 15:11) Act Partial Throm Time (Ptt) (10/17/17 15:11) Prothrombin Time / Inr (Pt) (10/17/17 15:11) Ckmb (Isoenzyme) Profile (10/17/17 15:11) Troponin I (10/17/17 15:11) Urinalysis - C+S If Indicated (10/17/17 15:11) Iv Access Insert/Monitor (10/17/17 15:11) Electrocardiogram (10/17/17 15:11) Ecg Monitoring (10/17/17 15:11) Oximetry (10/17/17 15:11) Chest, Single Ap (10/17/17 15:11) Sodium Chloride 0.9% Flush (Ns Flush) (10/17/17 15:15) Sodium Chlor 0.9% 1000 Ml Inj (Ns 1000 M (10/17/17 15:15) B-Type Natriuretic Peptide (10/17/17 15:13) Ct Abd/Pel W/O Iv Contrast (10/17/17 ) Ct Thorax/ Chest Wo Iv Contras (10/17/17 17:56) Ventilation & Perfusion Scan (10/17/17 ) Urine Culture (10/17/17 19:35) Ceftriaxone Inj (Rocephin Inj) (10/17/17 21:15) Labs Laboratory Tests Test 10/17/17 15:25 10/17/17 19:35 White Blood Count 9.7 TH/MM3 Red Blood Count 3.31 MIL/MM3 Hemoglobin 9.7 GM/DL Hematocrit 29.8 % Mean Corpuscular Volume 90.0 FL Mean Corpuscular Hemoglobin 29.2 PG Mean Corpuscular Hemoglobin Concent 32.4 % Red Cell Distribution Width 16.2 % Platelet Count 267 TH/MM3 Mean Platelet Volume 8.4 FL Neutrophils (%) (Auto) 72.4 % Lymphocytes (%) (Auto) 15.6 % Monocytes (%) (Auto) 9.1 % Eosinophils (%) (Auto) 2.0 % Basophils (%) (Auto) 0.9 % Neutrophils # (Auto) 7.0 TH/MM3 Lymphocytes # (Auto) 1.5 TH/MM3 Monocytes # (Auto) 0.9 TH/MM3 Eosinophils # (Auto) 0.2 TH/MM3 Basophils # (Auto) 0.1 TH/MM3 CBC Comment AUTO DIFF Differential Total Cells Counted 100 Neutrophils % (Manual) 69 % Band Neutrophils % 7 % Lymphocytes % 10 % Monocytes % 11 % Eosinophils % 3 % Neutrophils # (Manual) 7.4 TH/MM3 Differential Comment FINAL DIFF MANUAL Platelet Estimate NORMAL Platelet Morphology Comment CLUMPED Ovalocytes 1+ Prothrombin Time 29.6 SEC Prothromb Time International Ratio 2.9 RATIO Activated Partial Thromboplast Time 32.0 SEC Blood Urea Nitrogen 46 MG/DL Creatinine 4.37 MG/DL Random Glucose 86 MG/DL Total Protein 7.6 GM/DL Albumin 2.7 GM/DL Calcium Level 8.6 MG/DL Alkaline Phosphatase 118 U/L Aspartate Amino Transf (AST/SGOT) 26 U/L Alanine Aminotransferase (ALT/SGPT) 19 U/L Total Bilirubin 0.4 MG/DL Sodium Level 137 MEQ/L Potassium Level 4.8 MEQ/L Chloride Level 105 MEQ/L Carbon Dioxide Level 19.1 MEQ/L Anion Gap 13 MEQ/L Estimat Glomerular Filtration Rate 13 ML/MIN Total Creatine Kinase 75 U/L Troponin I LESS THAN 0.02 NG/ML B-Type Natriuretic Peptide 368 PG/ML Urine Color YELLOW Urine Turbidity HAZY Urine pH 6.5 Urine Specific [place] 1.013 Urine Protein 30 mg/dL Urine Glucose (UA) NEG mg/dL Urine Ketones NEG mg/dL Urine Occult Blood MOD Urine Nitrite POS Urine Bilirubin NEG Urine Urobilinogen LESS THAN 2.0 MG/DL Urine Leukocyte Esterase LARGE Urine RBC 58 /hpf Urine WBC /hpf Urine WBC Clumps MOD Urine Squamous Epithelial Cells 2 /hpf Urine Bacteria FEW /hpf Microscopic Urinalysis Comment CULTURE INDICATED MDM Medical Decision Making Medical Screen Exam Complete: Yes Emergency Medical Condition: Yes Differential Diagnosis Anemia versus metabolic derangement versus PE versus ACS versus deconditioning versus other Narrative Course 77-year-old male with PMH of Natividad head, on Coumadin, bladder cancer status post cystectomy with urostomy, renal insufficiency, obstructive uropathy presents to the ED for evaluation of worsening shortness of breath 1 week. Patient also complains of weakness. He denies fevers, chills, nausea, vomiting, chest pain, palpitations, abdominal pain, melena, hematochezia, changes in bowel habits. States that he has been symptomatic since he was discharged from a rehabilitation 1 week ago. He sought treatment today at the urging a friend. Vitals reviewed. BP 86/54 in triage, improved to 112/64 in the exam room. Review of the records reveals patient has chronically low blood pressure. On exam the patient is pleasant and cooperative. No focal neuro deficits. Chest CT AB. Abdomen soft and nontender. No lower extremity edema. IV was established. Patient was administered 1 L normal saline. EKG rate 80, A. fib. Normal axis. No acute ST changes. Reviewed by Dr. Roy. CXR: No acute cardiopulmonary findings. Cardiac enzymes negative 1. CT chest: No definite acute CT findings of the chest. 5 mm left upper lobe lung nodule can be followed with repeat CT in [address] abdomen and pelvis: 7 mm distal right ureteral stone with minimal hydronephrosis. Considerably improved from prior scan, otherwise grossly stable. VQ scan: Low probability for pulmonary embolism. CBC: WBC 9.7, hemoglobin 9.7. This is improved from the patient's baseline. INR of 2.9. CMP: BUN 46, creatinine 4.37. Chronic per record review. BNP 368. UA: Hazy, moderate occult blood, positive nitrates, large leukocyte E[place]ace, innumerable WBCs, moderate WBC clumps, few bacteria. Culture pending. Patient was administered a gram of Rocephin IV. I discussed admission with the patient and Dr. Villa. We reviewed the record and it seems that all his problems are chronic. There is no hydronephrosis from the obstruction. We'll treat for the UTI, discharged with close follow-up by the urologist tomorrow. Patient states that he has follow-up tomorrow with the urologist. He is prescribed Keflex twice a day 7 days. The patient indicated understanding of the discharge instructions. He is stable and discharged home. Diagnosis Primary Impression: CKD (chronic kidney disease), stage III Additional Impressions: Ureterolithiasis Urinary tract infection Qualified Codes: N39.0 - Urinary tract infection, site not specified; R31.9 - Hematuria, unspecified Referrals: Urologist Patient Instructions: General Instructions, Kidney Stones (ED) Additional Instructions: Rest, hydrate. Take antibiotics as prescribed until every pill is gone. Follow up with the urologist as discussed. Return to the ED for any urgent/ emergent medical condition. Scripts Cephalexin (Keflex) 500 Mg Cap 500 MG PO Q12H for Infection for 5 Days, #10 CAP 0 Refills Prov: Kelly Roy MD 10/17/17 Disposition: DISCHARGE HOME Condition: Stable Olga Lidia Craft Oct 17, 2017 16:46
[2017-10-17 17:07] LABS: ALBUMIN 2.7 GM/DL (3.4-5.0); ALKALINE PHOSPHATASE 118 U/L (45-117); ALT (GPT) 19 U/L (12-78); AST (GOT) 26 U/L (15-37); BICARBONATE 19.1 MEQ/L (21.0-32.0); BLOOD UREA NITROGEN 46 MG/DL (7-18); CALCIUM 8.6 MG/DL (8.5-10.1); CHLORIDE 105 MEQ/L (98-107); CREATININE 4.37 MG/DL (0.60-1.30); GLOMERULAR FILTRATION RATE 13 ML/MIN (>89); GLUCOSE,RANDOM 86 MG/DL (74-106); SODIUM (NA) 137 MEQ/L (136-145); TOTAL BILIRUBIN ADULT 0.4 MG/DL (0.2-1.0); TOTAL PROTEIN 7.6 GM/DL (6.4-8.2); TROPONIN I LESS THAN 0.02 NG/ML (0.02-0.05)
[2017-10-17 17:31] LABS: BANDS 7 % (0-6); LYMPHOCYTES 10 % (9-44); MONOCYTES 11 % (0-8); NEUTROPHIL # MANUAL DIFF 7.4 TH/MM3 (1.8-7.7); POLYS (SEG NEUTROPHILS) 69 % (16-70)
[2017-10-17 17:32] LABS: OVALOCYTES 1+ (NORMAL)
[2017-10-17 17:49] VITALS: BP 112/64; PULSE 82; RESP 16; O2SAT 96
[2017-10-17] MEDS ORDERED: NADO20TA PO (19:33)
[2017-10-17] MEDS ORDERED: GUAI600T11 PO (19:33)
[2017-10-17] MEDS ORDERED: COUM1TAB PO (19:33)
[2017-10-17] MEDS ORDERED: PILO5TAB3 PO (19:41)
--- NOTE | 2017-10-17 19:59 | RADRPT ---
EXAM DATE/TIME: 10/17/2017 18:59 [facility] COMPARISON: CT ABDOMEN & PELVIS W/O CONTRAST, August 17, 2017, 10:08. INDICATIONS : Short of breath for one week. ORAL CONTRAST: No oral contrast ingested. RADIATION DOSE: 5.78 CTDIvol (mGy) ; Combined studies - Thorax/Abdomen/Pelvis MEDICAL HISTORY : Cardiovascular disease. Carcinoma, bladder. chemotherapy SURGICAL HISTORY : None. ENCOUNTER: Initial ACUITY: 1 week PAIN SCALE: 3/10 LOCATION: Right abdomen TECHNIQUE: Volumetric scanning of the abdomen and pelvis was performed. Using automated exposure control and ad justment of the mA and/or kV according to patient size, radiation dose was kept as low as reasonably achievable to obtain optimal diagnostic quality images. DICOM format image data is available electro nically for review and comparison. FINDINGS: LOWER LUNGS: The visualized lower lungs are clear. LIVER: Homogeneous density without lesion. There is no dilation of the biliary tree. Stable calcified galls tones. SPLEEN: Normal size without lesion. PANCREAS: Within normal limits. KIDNEYS: Multiple bilateral large kidney stones again identified. Stone in the distal right ureter appears sma ller than previously noted and there is minimal hydronephrosis. Bilateral renal cysts ADRENAL GLANDS: Within normal limits. 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 No abnormally dilated bowel. No definite focal inflammatory changes. ABDOMINAL WALL: Right lower quadrant ostomy RETROPERITONEUM: There is no lymphadenopathy. BLADDER: Surgically absent. Right lower quadrant urostomy REPRODUCTIVE: No masses INGUINAL: There is no lymphadenopathy or hernia. MUSCULOSKELETAL: Within normal limits for patient age. CONCLUSION: 7 mm distal right ureteral stone with minimal hydronephrosis. The appearance is considerably improved from prior scan. Otherwise grossly stable Jose Boudreaux MD on October 17, 2017 at 19:51 Board Certified Radiologist. This report was verified electronically.
[2017-10-17 20:08] LABS: BACTERIA, URINE FEW /hpf; BILIRUBIN, URINE NEG (NEG); BLOOD, URINE MOD (NEG); GLUCOSE,URINE NEG (NEG); KETONE, URINE NEG (NEG); NITRITE,URINE POS (NEG); PH, URINE 6.5 (5.0-8.5); SQUAMOUS EPITHELIAL CELL URINE 2 /hpf (0-5); URINE COLOR YELLOW (YELLW/STRAW); URINE LEUKOCYTE ESTERASE LARGE (NEG); WHITE BLOOD CELL CLUMPS MOD
--- NOTE | 2017-10-17 20:44 | RADRPT ---
EXAM DATE/TIME: 10/17/2017 19:03 [facility] COMPARISON: No previous studies available for comparison. INDICATIONS : Short of breath for one week. RADIATION DOSE: 5.78 CTDIvol (mGy) ; Combined studies - Thorax/Abdomen/Pelvis MEDICAL HISTORY : Cardiovascular disease. Carcinoma, bladder. chemotherapy SURGICAL HISTORY : None. ENCOUNTER: Initial ACUITY: 1 week PAIN SCALE: 3/10 LOCATION: Right chest TECHNIQUE: Volumetric scanning of the chest was performed. Using automated exposure control and adjustment of t he mA and/or kV according to patient size, radiation dose was kept as low as reasonably achievable to obtain optimal diagnostic quality images. DICOM format image data is available electronically for r eview and comparison. Follow-up recommendations for detected pulmonary nodules are based at a minimum on nodule size and pa tient risk factors according to Fleischner Society Guidelines. FINDINGS: LUNGS: Slight apical pleural-parenchymal scarring bilaterally. Minimal basilar atelectasis or scarring. 5 mm left upper lobe lung nodule which can be followed. No evidence of consolidative infiltrate. PLEURAE: There is no pleural thickening or pleural effusion. MEDIASTINUM: Borderline diameter of the ascending thoracic aorta, just greater than 4 cm. Atherosclerotic changes including calcifications within the coronary is. No evidence of mediastinal mass or adenopathy. AXILLAE: Within normal limits. No lymphadenopathy. MUSCULOSKELETAL: Within normal limits for patient age. MISCELLANEOUS: The visualized upper abdominal organs demonstrate no acute abnormality. CONCLUSION: No definite acute CT findings in the chest. 5 mm left upper lobe lung nodule can be followed with repeat CT in 6 months suggested. Jose Boudreaux MD on October 17, 2017 at 20:39 Board Certified Radiologist. This report was verified electronically.
[2017-10-17] MEDS ORDERED: cefTRIAXone INJ 1,000 MG in SODIUM CHLORIDE 0.9% INJ 100 ML IV ONE (21:15)
--- NOTE | 2017-10-17 22:34 | RADRPT ---
EXAM DATE/TIME: 10/17/2017 21:42 [facility] COMPARISON: CHEST SINGLE AP, October 17, 2017, 15:36. INDICATIONS : Weakness and shortness of breath. DOSE: 1.3 mCi Tc99m DTPA 8.3 mCi Tc99m MAA MEDICAL HISTORY : Bladder cancer. SURGICAL HISTORY : Cystectomy. ENCOUNTER: Initial ACUITY: 1 day PAIN SCALE: 3/10 LOCATION: chest TECHNIQUE: Following five minutes of tidal breathing of DTPA aerosol, planar images of the lungs were performed in eight projections. The patient was then injected with MAA, and eight-view perfusion scan was perf ormed. FINDINGS: 9 segmental diffusion abnormalities are present, matched by corresponding ventilatory findings. There are no significant segmental or subsegmental perfusion defects identified. CONCLUSION: Low probability scan for pulmonary embolism Jose Boudreaux MD on October 17, 2017 at 22:32 Board Certified Radiologist. This report was verified electronically.
[2017-10-17] MEDS ORDERED: CEPH-460 PO (22:49)
[2017-10-18 03:11] VITALS: BP 104/71; PULSE 76; RESP 18; O2SAT 100
[2017-10-18 07:39] VITALS: BP 110/75; PULSE 75; RESP 18; O2SAT 100
--- NOTE | 2017-10-18 18:42 | EKG ---
Date Performed: 10/17/2017 Time Performed: 15:12:23 PTAGE: 77 years EKG: ATRIAL FIBRILLATION ABNORMAL RHYTHM ECG Since the prior tracing, there has been no signific ant change PREVIOUS TRACING : 09/10/2017 00.52 DOCTOR: Hannah Camacho Interpretating Date/Time 10/18/2017 18:40:10
== END 2017-10-18 07:58 | disposition home or self-care (01) ==
LOC: NEPE 14:54 → NEDA 21:11 → UNDOADMIN 21:11 → NEPD 10-18 07:58
DX: N18.3 Chronic kidney disease, stage 3 (moderate) (principal); N39.0 Urinary tract infection, site not specified; N13.2 Hydronephrosis with renal and ureteral calculous obstruction; R53.1 Weakness; I48.91 Unspecified atrial fibrillation; B95.62 Methicillin resistant Staphylococcus aureus infection as the cause of diseases classified elsewhere; B95.2 Enterococcus as the cause of diseases classified elsewhere; Z79.01 Long term (current) use of anticoagulants
CPT/HCPCS: 71045; 71250; 74176; 78582; 80053; 81001; 82550; 83880; 84484; 85007; 85027; 85610; 85730; 86403; 87077; 87086; 87186; 93005; 96361; 96365; 96366; 99285; A9540; A9567; J0696; J7030

== ENCOUNTER 2017-10-31 11:42 | Inpatient (IN) | payer MEDICARE, BC ==
[~2017-10-31] VITALS: Ht 180.3 cm; Wt 72.0 kg
[2017-10-31] VITALS (9 sets, daily range): BP systolic 80–106; BP diastolic 50–67; PULSE 69–98; RESP 14–20; TEMP 96.7–98.9; O2SAT 98–100
[~2017-10-31 11:42] MED LIST changes: +CEPH-460 PO; +COUM1TAB PO; +GUAI600T11 PO; -LOTR15T TOPICAL; +NADO20TA PO; +PILO5TAB3 PO
[2017-10-31 13:00] LABS: BASOPHIL % 0.2 % (0.0-2.0); EOSINOPHIL # 0.1 TH/MM3 (0-0.4); EOSINOPHIL % 0.6 % (0.0-4.0); HEMATOCRIT 26.3 % (39.0-51.0); HEMOGLOBIN 8.5 GM/DL (13.0-17.0); MEAN CELL VOLUME 88.4 FL (80.0-100.0); MEAN CORPUSCULAR HEMOGLOBIN 28.5 PG (27.0-34.0); MEAN CORPUSCULAR HGB CONC 32.2 % (32.0-36.0); MEAN PLATELET VOLUME 7.9 FL (7.0-11.0); MONO % 6.2 % (0.0-8.0); MONOCYTE # 0.9 TH/MM3 (0-0.9); PLATELET COUNT 248 TH/MM3 (150-450); RED BLOOD COUNT 2.97 MIL/MM3 (4.50-5.90); RED CELL DISTRIBUTION WIDTH 16.5 % (11.6-17.2); WHITE BLOOD COUNT 15.1 TH/MM3 (4.0-11.0)
[2017-10-31] MEDS ORDERED: SODIUM CHLOR 0.9% 1000 ML INJ 1,000 ML IV ONE (13:00)
[2017-10-31 13:24] LABS: ALBUMIN 2.2 GM/DL (3.4-5.0); ALT (GPT) 13 U/L (12-78); AST (GOT) 16 U/L (15-37); BICARBONATE 16.2 MEQ/L (21.0-32.0); BLOOD UREA NITROGEN 56 MG/DL (7-18); CALCIUM 7.9 MG/DL (8.5-10.1); CHLORIDE 114 MEQ/L (98-107); CREATININE 4.16 MG/DL (0.60-1.30); GLOMERULAR FILTRATION RATE 14 ML/MIN (>89); GLUCOSE,RANDOM 82 MG/DL (74-106); SODIUM (NA) 141 MEQ/L (136-145)
--- NOTE | 2017-10-31 13:25 | PD ---
HPI Chief Complaint: GI Complaint Time Seen by Provider: 12:54 Travel History International Travel<30 days: No Contact w/Intl Traveler<30days: No Traveled to known affect area: No History of Present Illness HPI 77-year-old male with PMH of Nathalie. fib, bladder cancer status post ileostomy, CKD stage IV, C. difficile, anemia, on COUMADIN presents to the ED for evaluation of 12 day history of uncontrollable, watery diarrhea, weakness. He denies fever , chills, chest pain, shortness of breath, abdominal pain, nausea, vomiting. He states that was treated for C. diff earlier this year while in rehab after discharge from the hospital. He has a home health nurse who sent him today. PFSH Past Medical History Hx Anticoagulant Therapy: Yes Arthritis: No Atrial Fibrillation: Yes Heart Rhythm Problems: No Cancer: Yes (bladder ca) Cardiovascular Problems: Yes (Arrhythmia ) High Cholesterol: Yes Chemotherapy: Yes Chest Pain: No Congestive Heart Failure: No Diminished Hearing: No Endocrine: No Gastrointestinal Disorders: No Hypertension: No Immune Disorder: No Implanted Vascular Access Dvce: Yes Neurologic: No Psychiatric: No Respiratory: No Radiation Therapy: Yes (46 treatments) Seizures: No ?: Not Past Surgical History Abdominal Surgery: No Cardiac Surgery: No Ear Surgery: No Endocrine Surgery: Yes (Parotid Mass) Eye Surgery: No Genitourinary Surgery: Yes (bladder cancer) Gynecologic Surgery: No Neurologic Surgery: No Oral Surgery: No Thoracic Surgery: No Other Surgery: Yes Social History Alcohol Use: No Tobacco Use: No Substance Use: No Allergies-Medications (Allergen,Severity, Reaction): Coded Allergies: crab (Verified Allergy, Intermediate, Rash, 10/31/17) Blue Shell crab causes severe rash all over face and neck. Needs PCN to help clear it up. Patient CAN eat Shrimp and clams, scallops, oysters without problems. Uncoded Allergies: LOBSTER (Adverse Reaction, Unknown, 09/09/17) Reported Meds & Prescriptions Reported Meds & Active Scripts Active Keflex (Cephalexin) 500 Mg Cap 500 Mg PO Q12H 5 Days Reported Pilocarpine 5 Mg Tab 5 Mg PO Q6HR Mucus Relief ER (Guaifenesin) 600 Mg Tab 600 Mg PO BID PRN Nadolol 20 Mg Tab 20 Mg PO DAILY Coumadin (Warfarin) 1 Mg Tab 1 Mg PO DAILY Dulcolax Supp (Bisacodyl) 10 Mg Supp 10 Mg RECTAL DAILY PRN Diflucan (Fluconazole) 200 Mg Tab 200 Mg PO DAILY Atorvastatin (Atorvastatin Calcium) 20 Mg Tab 20 Mg PO HS Review of Systems Except as stated in HPI: all other systems reviewed are Neg Physical Exam Narrative GENERAL: Thin, chronically ill appearing white male in NAD. SKIN: Focused skin assessment warm, pale, dry. HEAD: Normocephalic. EYES: No scleral icterus. No injection or drainage. NECK: Supple, trachea midline. No JVD or lymphadenopathy. CARDIOVASCULAR: Regular rate and rhythm without murmurs, gallops, or rubs. RESPIRATORY: Breath sounds clear and equal bilaterally. No accessory muscle use. GASTROINTESTINAL: Abdomen scaphoid, soft, non-tender, nondistended. Active bowel sounds. Ileostomy in place with cloudy only urine in the collecting bag. MUSCULOSKELETAL: No cyanosis, or edema. BACK: Nontender without obvious deformity. No CVA tenderness. Data Data Last Documented VS Vital Signs Date Time Temp Pulse Resp B/P (MAP) Pulse Ox O2 Delivery O2 Flow Rate FiO2 10/31/17 14:24 85 16 90/58 (69) 100 Room Air 10/31/17 13:28 97.4 Orders Orders Complete Blood Count With Diff (10/31/17 12:31) Comprehensive Metabolic Panel (10/31/17 12:31) Urinalysis - C+S If Indicated (10/31/17 12:31) Iv Access Insert/Monitor (10/31/17 12:31) Oxygen Administration (10/31/17 12:31) Oximetry (10/31/17 12:31) Lipase (10/31/17 12:31) Sodium Chlor 0.9% 1000 Ml Inj (Ns 1000 M (10/31/17 13:00) Coag Profile (10/31/17 13:25) Blood Culture (10/31/17 13:31) Enteric Path (Stool) (10/31/17 13:31) C Diff Toxin Pcr (10/31/17 13:31) Type And Screen (10/31/17 13:36) Lactic Acid (10/31/17 13:39) Sodium Chlorid 0.9% 500 Ml Inj (Ns 500 M (10/31/17 14:30) Vancomycin Inj (Vancomycin Inj) (10/31/17 14:30) Admit Order (Ed Use Only) (10/31/17 14:56) Labs Laboratory Tests Test 10/31/17 12:10 10/31/17 13:45 White Blood Count 15.1 TH/MM3 Red Blood Count 2.97 MIL/MM3 Hemoglobin 8.5 GM/DL Hematocrit 26.3 % Mean Corpuscular Volume 88.4 FL Mean Corpuscular Hemoglobin 28.5 PG Mean Corpuscular Hemoglobin Concent 32.2 % Red Cell Distribution Width 16.5 % Platelet Count 248 TH/MM3 Mean Platelet Volume 7.9 FL Neutrophils (%) (Auto) 86.0 % Lymphocytes (%) (Auto) 7.0 % Monocytes (%) (Auto) 6.2 % Eosinophils (%) (Auto) 0.6 % Basophils (%) (Auto) 0.2 % Neutrophils # (Auto) 13.0 TH/MM3 Lymphocytes # (Auto) 1.0 TH/MM3 Monocytes # (Auto) 0.9 TH/MM3 Eosinophils # (Auto) 0.1 TH/MM3 Basophils # (Auto) 0.0 TH/MM3 CBC Comment DIFF FINAL Differential Comment Blood Urea Nitrogen 56 MG/DL Creatinine 4.16 MG/DL Random Glucose 82 MG/DL Total Protein 5.9 GM/DL Albumin 2.2 GM/DL Calcium Level 7.9 MG/DL Alkaline Phosphatase 96 U/L Aspartate Amino Transf (AST/SGOT) 16 U/L Alanine Aminotransferase (ALT/SGPT) 13 U/L Total Bilirubin 0.3 MG/DL Sodium Level 141 MEQ/L Potassium Level 3.7 MEQ/L Chloride Level 114 MEQ/L Carbon Dioxide Level 16.2 MEQ/L Anion Gap 11 MEQ/L Estimat Glomerular Filtration Rate 14 ML/MIN Lipase 78 U/L Prothrombin Time 56.9 SEC Prothromb Time International Ratio 5.7 RATIO Activated Partial Thromboplast Time 43.9 SEC Stool C. difficile Toxin (PCR) POSITIVE Stl C. difficile Toxin Epiderm 027 PRESUMPTIVE NEGATIVE Lactic Acid Level 1.2 mmol/L [facility] Medical Decision Making Medical Screen Exam Complete: Yes Emergency Medical Condition: Yes Medical Record Reviewed: Yes Differential Diagnosis infectious diarrhea versus metabolic derangement versus dehydration versus anemia versus other Narrative Course 77-year-old male with PMH of A. fib, bladder cancer status post ileostomy, CKD stage IV, C. difficile, anemia, on COUMADIN presents to the ED for evaluation of 12 day history of uncontrollable, watery diarrhea, weakness. He denies fever , chills, chest pain, shortness of breath, abdominal pain, nausea, vomiting. He states that was treated for C. diff earlier this year while in rehab after discharge from the hospital. He has a home health nurse who sent him today. Patient is afebrile, pulse 98, BP 80/53 on presentation. On exam this is a chronically ill-appearing, pale white male in no acute distress. Chest is CTAB. Abdomen is scaphoid, nontender. There is a ileostomy in place with cloudy yellow urine in the bag. No lower extremity edema. IV was established. Patient was administered 1 L normal saline. Stool studies and blood cultures were collected. 10/31/17 12:10 Total Protein 5.9 L, Albumin 2.2 L, Calcium Level 7.9 L, Alkaline Phosphatase 96 , Aspartate Amino Transf (AST/SGOT) 16, Alanine Aminotransferase (ALT/SGPT) 13, Total Bilirubin 0.3 Lactic acid 1.2 Leukocytosis, neutrophil predominant. Anemia is chronic per chart review. Type and screen pending. BUN and creatinine near baseline per chart review On recheck BP 90/58. Patient was administered another 0.5 L of saline. 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 Patient was administered 1 g vancomycin IV. I discussed the results of the workup with the patient. I recommended admission for further evaluation. Patient is agreeable to this plan. I spoke with Dr. Bay who agrees to accept the patient to the medical service. Please see medicine notes for disposition. Olga Lidia Craft Oct 31, 2017 13:25
[2017-10-31 13:27] LABS: ALKALINE PHOSPHATASE 96 U/L (45-117); TOTAL BILIRUBIN ADULT 0.3 MG/DL (0.2-1.0); TOTAL PROTEIN 5.9 GM/DL (6.4-8.2)
[2017-10-31] MEDS ORDERED: SODIUM CHLORID 0.9% 500 ML INJ 500 ML IV ONE (14:30)
[2017-10-31] MEDS ORDERED: VANCOMYCIN INJ 1,000 MG in SODIUM CHLOR 0.9% 250 ML INJ 250 ML IV ONE (14:30)
[2017-10-31 14:38] LABS: INTERNATIONAL NORMALIZED RATIO 5.7 RATIO; PROTHROMBIN TIME - PATIENT 56.9 SEC (9.8-11.6)
--- NOTE | 2017-10-31 14:58 | HHI.HP ---
[facility] Ad[facility] Diagnosis recurrent C. difficile, leukocytosis, hypotension Diagnoses: (1) Hypotension (2) Supratherapeutic INR (3) Diarrhea (4) Generalized weakness Chief Complaint: Diarrhea and weakness Travel History International Travel<30 Days: No Contact w/Intl Traveler <30 Da: No Traveled to Known Affected Are: No History of Present Illness 77 year-old male with known history of atrial fibrillation, hyperlipidemia, history of liver cancer, history of parotid cancer who presented to hospital by [facility] because of watery diarrhea x 12 days duration along with weakness. Patient has a known history of C diff diarrhea for which he was previously treated for; however current he is unsure if he is getting any antibiotic therapy for it. States, [facility] was called today by a nurse who was visiting to check on him and found the patient to be extremely weak due to multiple episode of diarrhea. While in the ED he was found to have low BP, however he denies any dizziness, shortness of breath or chest pain. He endorses decrease appetite but denies any nausea or emesis with PO intake. he has no GI bleeding. C diff PCR pending Review of Systems ROS Limitations: Poor Historian Except as stated in HPI: all other systems reviewed are Neg Past Family Social History Past Medical History Atrial fibrillation Hyperlipidemia Chronic kidney disease stage IV History of bladder cancer History of parotid gland cancer Past Surgical History Ileostomy Parotid surgery Reported Medications Pilocarpine 5 Mg Tab 5 Mg PO Q6HR Mucus Relief ER (Guaifenesin) 600 Mg Tab 600 Mg PO BID PRN Nadolol 20 Mg Tab 20 Mg PO DAILY Coumadin (Warfarin) 1 Mg Tab 1 Mg PO DAILY Dulcolax Supp (Bisacodyl) 10 Mg Supp 10 Mg RECTAL DAILY PRN Diflucan (Fluconazole) 200 Mg Tab 200 Mg PO DAILY Atorvastatin (Atorvastatin Calcium) 20 Mg Tab 20 Mg PO HS Allergies: Coded Allergies: crab (Verified Allergy, Intermediate, Rash, 10/31/17) Blue Shell crab causes severe rash all over face and neck. Needs PCN to help clear it up. Patient CAN eat Shrimp and clams, scallops, oysters without problems. Uncoded Allergies: LOBSTER (Adverse Reaction, Unknown, 09/09/17) Family History Reviewed is significant for father having heart disease Social History Patient quit smoking 20 years ago. Denies any Alcohol. No indication of a illicit drug use Physical Exam Vital Signs Vital Signs Date Time Temp Pulse Resp B/P (MAP) Pulse Ox O2 Delivery O2 Flow Rate FiO2 10/31/17 14:24 85 16 90/58 (69) 100 Room Air 10/31/17 13:28 97.4 69 14 80/50 (60) 100 Room Air 10/31/17 13:25 14 100 Room Air 10/31/17 13:22 77 14 80/51 (61) 100 Room Air 10/31/17 12:07 98.9 98 18 80/53 (62) 98 Physical Exam GENERAL: This is a well-nourished, well-developed patient, in no apparent distress. SKIN: No rashes, ecchymoses or lesions. Cool and dry. HEAD: Atraumatic. Normocephalic. No temporal or scalp tenderness. EYES: Pupils equal round and reactive. Extraocular motions intact. No scleral icterus. No injection or drainage. ENT: Nose without bleeding, purulent drainage or septal hematoma. Throat without erythema, tonsillar hypertrophy or exudate. Uvula midline. Airway patent. NECK: Trachea midline. No JVD or lymphadenopathy. Supple, nontender, no meningeal signs. CARDIOVASCULAR: Irreg Regular rate and rhythm without murmurs, gallops, or rubs. RESPIRATORY: Clear to auscultation. Breath sounds equal bilaterally. No wheezes , rales, or rhonchi. GASTROINTESTINAL: Abdomen soft, non-tender, nondistended. No hepato-splenomegaly , or palpable masses. No guarding.urostomy bag in place with clear urine MUSCULOSKELETAL: Extremities without clubbing, cyanosis, or edema. No joint tenderness, effusion, or edema noted. No calf tenderness. Negative Homans sign bilaterally. NEUROLOGICAL: Awake and alert. Cranial nerves II through XII intact. Motor and sensory grossly within normal limits. Five out of 5 muscle strength in all muscle groups. Normal speech. Laboratory Laboratory Tests Test 10/31/17 12:10 10/31/17 13:45 White Blood Count 15.1 Red Blood Count 2.97 Hemoglobin 8.5 Hematocrit 26.3 Mean Corpuscular Volume 88.4 Mean Corpuscular Hemoglobin 28.5 Mean Corpuscular Hemoglobin Concent 32.2 Red Cell Distribution Width 16.5 Platelet Count 248 Mean Platelet Volume 7.9 Neutrophils (%) (Auto) 86.0 Lymphocytes (%) (Auto) 7.0 Monocytes (%) (Auto) 6.2 Eosinophils (%) (Auto) 0.6 Basophils (%) (Auto) 0.2 Neutrophils # (Auto) 13.0 Lymphocytes # (Auto) 1.0 Monocytes # (Auto) 0.9 Eosinophils # (Auto) 0.1 Basophils # (Auto) 0.0 CBC Comment DIFF FINAL Differential Comment Blood Urea Nitrogen 56 Creatinine 4.16 Random Glucose 82 Total Protein 5.9 Albumin 2.2 Calcium Level 7.9 Alkaline Phosphatase 96 Aspartate Amino Transf (AST/SGOT) 16 Alanine Aminotransferase (ALT/SGPT) 13 Total Bilirubin 0.3 Sodium Level 141 Potassium Level 3.7 Chloride Level 114 Carbon Dioxide Level 16.2 Anion Gap 11 Estimat Glomerular Filtration Rate 14 Lipase 78 Lactic Acid Level 1.2 Date/Time Source Procedure Growth Status 10/31/17 13:45 Blood Line Aerobic Blood Culture Pending Received 10/31/17 13:45 Blood Line Anaerobic Blood Culture Pending Received 10/31/17 13:45 Stool Stool Pending Ordered Result Diagram: 10/31/17 1210 10/31/17 1210 Septic Shock Reassessment Septic shock perfusion: reassessment completed Caprini VTE Risk Assessment Caprini VTE Risk Assessment: Mod/High Risk (score >= 2) Caprini Risk Assessment Model Point Value = 1 Point Value = 2 Point Value = 3 Point Value = 5 Age 41-60 Minor surgery BMI > 25 kg/m2 Swollen legs Varicose veins or History of unexplained or recurrent spontaneous Oral contraceptives or hormone replacement Sepsis (< 1 month) Serious lung disease, including pneumonia (< 1 month) Abnormal pulmonary function Acute myocardial infarction Congestive heart failure (< 1 month) History of inflammatory bowel disease Medical patient at bed rest Age 61-74 Arthroscopic surgery Major open surgery (> 45 min) Laparoscopic surgery (> 45 min) Malignancy Confined to bed (> 72 hours) Immobilizing plaster cast Central venous access Age >= 75 History of VTE Family history of VTE Factor V Leiden Prothrombin [id number] Lupus anticoagulant Anticardiolipin antibodies Elevated serum homocysteine Heparin-induced thrombocytopenia Other congenital or acquired thrombophilia Stroke (< 1 month) Elective arthroplasty Hip, pelvis, or leg fracture Acute spinal cord injury (< 1 month) Prophylaxis Regimen Total Risk Factor Score Risk Level Prophylaxis Regimen 0-1 Low Early ambulation 2 Moderate Order ONE of the following: *Sequential Compression Device (SCD) *Heparin 5000 units SQ BID 3-4 Higher Order ONE of the following medications: *Heparin 5000 units SQ TID *Enoxaparin/Lovenox 40 mg SQ daily (WT < 150 kg, CrCl > 30 mL/min) *Enoxaparin/Lovenox 30 mg SQ daily (WT < 150 kg, CrCl > 10-29 mL/min) *Enoxaparin/Lovenox 30 mg SQ BID (WT < 150 kg, CrCl > 30 mL/min) AND/OR *Sequential Compression Device (SCD) 5 or more Highest Order ONE of the following medications: *Heparin 5000 units SQ TID (Preferred with Epidurals) *Enoxaparin/Lovenox 40 mg SQ daily (WT < 150 kg, CrCl > 30 mL/min) *Enoxaparin/Lovenox 30 mg SQ daily (WT < 150 kg, CrCl > 10-29 mL/min) *Enoxaparin/Lovenox 30 mg SQ BID (WT < 150 kg, CrCl > 30 mL/min) AND *Sequential Compression Device (SCD) Assessment and Plan Problem List: (1) Hypotension ICD Code: I95.9 - Hypotension, unspecified (2) Supratherapeutic INR ICD Code: R79.1 - Abnormal coagulation profile Status: Resolved (3) Diarrhea ICD Code: R19.7 - Diarrhea, unspecified (4) Generalized weakness ICD Code: R53.1 - Weakness Status: Acute (5) Recurrent Clostridium difficile diarrhea ICD Code: A04.71 - Enterocolitis due to Clostridium difficile, recurrent Status: Acute (6) CKD (chronic kidney disease), stage III ICD Code: N18.3 - Chronic kidney disease, stage 3 (moderate) Status: Chronic Assessment and Plan 77 years old man with History of C diff and now with diarrhea C diff PCR positive Check C diff PCR and treat accordingly Start Vancomycin 125mg QID Leukocytosis Likely 2/2 from above Check UA Hypotension 2/2 GI loss Continue with aggressive IVF hydration Hold Nadol and all BB agents Check Orthostatic May consider Midodrine CKD stage III Cr current at baseline Monitor Bun/Cr Check Renal US Nephrology consultation PRN Supra therapeutic INR Give Vit K 5mg IM x 1 now Monitor INR/PT Proximal A. fib 2/2 hypotension, will hold Nadol Due to supra therapeutic INR, will hold Coumadin as well Telemetry monitoring Generalized weakness PT consult to treat and eval DVT prophylaxis: Bilateral SCDs Code Status Full code Discussed Condition With Patient, ED Kervin Lopez MD Oct 31, 2017 14:58
[2017-10-31] MEDS ORDERED: ONDANSETRON HCL 4 MG/2 ML VIAL IVP PRN (15:00)
[2017-10-31] MEDS ORDERED: ACETAMINOPHEN 325 MG TAB PO PRN ×2 (15:00)
[2017-10-31] MEDS ORDERED: NALOXONE HCL 0.4 MG/ML AMP IV PUSH PRN (15:00)
[2017-10-31] MEDS ORDERED: RESP: ALBUTEROL 2.5 MG/IPRATROPIUM 0.5 MG NEB (PRN) NEB (15:00)
[2017-10-31] MEDS ORDERED: SODIUM CHLORIDE 0.9% FLUSH 10 ML FLUSH IV FLUSH PRN (15:00)
--- NOTE | 2017-10-31 15:27 | PD ---
Physical Exam Date Seen by Provider: Oct 31, 2017 Time Seen by Provider: 15:00 Narrative I am seeing this patient with Emma Craft PA-C. This is a 69-year-old male presents today with complaints of diarrhea 12 days. Patient has a history of C. difficile colitis. Positive weakness. Data Data Last Documented VS Vital Signs Date Time Temp Pulse Resp B/P (MAP) Pulse Ox O2 Delivery O2 Flow Rate FiO2 10/31/17 14:24 85 16 90/58 (69) 100 Room Air 10/31/17 13:28 97.4 Orders Orders Complete Blood Count With Diff (10/31/17 12:31) Comprehensive Metabolic Panel (10/31/17 12:31) Urinalysis - C+S If Indicated (10/31/17 12:31) Iv Access Insert/Monitor (10/31/17 12:31) Oxygen Administration (10/31/17 12:31) Oximetry (10/31/17 12:31) Lipase (10/31/17 12:31) Sodium Chlor 0.9% 1000 Ml Inj (Ns 1000 M (10/31/17 13:00) Coag Profile (10/31/17 13:25) Blood Culture (10/31/17 13:31) Enteric Path (Stool) (10/31/17 13:31) C Diff Toxin Pcr (10/31/17 13:31) Type And Screen (10/31/17 13:36) Lactic Acid (10/31/17 13:39) Sodium Chlorid 0.9% 500 Ml Inj (Ns 500 M (10/31/17 14:30) Vancomycin Inj (Vancomycin Inj) (10/31/17 14:30) Admit Order (Ed Use Only) (10/31/17 14:56) Labs Laboratory Tests Test 10/31/17 12:10 10/31/17 13:45 White Blood Count 15.1 TH/MM3 Red Blood Count 2.97 MIL/MM3 Hemoglobin 8.5 GM/DL Hematocrit 26.3 % Mean Corpuscular Volume 88.4 FL Mean Corpuscular Hemoglobin 28.5 PG Mean Corpuscular Hemoglobin Concent 32.2 % Red Cell Distribution Width 16.5 % Platelet Count 248 TH/MM3 Mean Platelet Volume 7.9 FL Neutrophils (%) (Auto) 86.0 % Lymphocytes (%) (Auto) 7.0 % Monocytes (%) (Auto) 6.2 % Eosinophils (%) (Auto) 0.6 % Basophils (%) (Auto) 0.2 % Neutrophils # (Auto) 13.0 TH/MM3 Lymphocytes # (Auto) 1.0 TH/MM3 Monocytes # (Auto) 0.9 TH/MM3 Eosinophils # (Auto) 0.1 TH/MM3 Basophils # (Auto) 0.0 TH/MM3 CBC Comment DIFF FINAL Differential Comment Blood Urea Nitrogen 56 MG/DL Creatinine 4.16 MG/DL Random Glucose 82 MG/DL Total Protein 5.9 GM/DL Albumin 2.2 GM/DL Calcium Level 7.9 MG/DL Alkaline Phosphatase 96 U/L Aspartate Amino Transf (AST/SGOT) 16 U/L Alanine Aminotransferase (ALT/SGPT) 13 U/L Total Bilirubin 0.3 MG/DL Sodium Level 141 MEQ/L Potassium Level 3.7 MEQ/L Chloride Level 114 MEQ/L Carbon Dioxide Level 16.2 MEQ/L Anion Gap 11 MEQ/L Estimat Glomerular Filtration Rate 14 ML/MIN Lipase 78 U/L Prothrombin Time 56.9 SEC Prothromb Time International Ratio 5.7 RATIO Activated Partial Thromboplast Time 43.9 SEC Lactic Acid Level 1.2 mmol/L MDM Medical Record Reviewed: Yes Supervised Visit with NORBERT: Yes Narrative Course 69-year-old male presents with diarrhea 12 days. Patient has a history of C. difficile and appears to have a recurrence of his C. difficile. He will be admitted to the hospital for IV fluids. He had an episode of hypotension and has been given fluid replacement. [facility] Diagnosis Primary Impression: Recurrent Clostridium difficile diarrhea Additional Impressions: Dehydration Chronic kidney injury Over anticoagulation Cristiano Javier MD Oct 31, 2017 15:27
[2017-10-31] MEDS ORDERED: PHYTONADIONE 10 MG/ML VIAL SQ ONE (15:45)
[2017-10-31] MEDS: SODIUM CHLOR 0.9% 1000 ML INJ 1,000 ML IV SCH (15:58)
[2017-10-31 17:14] LABS: AMORPHOUS SEDIMENT, URINE FEW; BACTERIA, URINE FEW /hpf; BILIRUBIN, URINE NEG (NEG); BLOOD, URINE SMALL (NEG); GLUCOSE,URINE NEG (NEG); KETONE, URINE NEG (NEG); NITRITE,URINE POS (NEG); TRIPLE PHOSPHATE CRYSTAL,URINE FEW /hpf; URINE COLOR YELLOW (YELLW/STRAW); URINE LEUKOCYTE ESTERASE LARGE (NEG); WHITE BLOOD CELL CLUMPS MOD
--- NOTE | 2017-10-31 17:43 | RADRPT ---
EXAM DATE/TIME: 10/31/2017 16:44 [facility] COMPARISON: US KIDNEY/RENAL/BLADDER, August 17, 2017, 8:16. EXTERNAL COMPARISON : [facility], US KIDNEYS, February 28, 2017 INDICATIONS : Increased BUN/Creatnine. MEDICAL HISTORY : Hypercholesterolemia. Atrial fibrillation. Bladder cancer. Parotid mass. Chemotherapy. Radiation ther apy. SURGICAL HISTORY : Parotid surgery. Bladder surgery. ENCOUNTER: Subsequent ACUITY: > 1 year PAIN SCORE: 2/10 LOCATION: Bilateral flank MEASUREMENTS: RIGHT KIDNEY: 9.7 x 3.9 x 4.8 cm LEFT KIDNEY: 9.8 x 3.2 x 5.6 cm FINDINGS: RIGHT KIDNEY: Renal cortex is normal in thickness and echotexture. Multiple echogenic stones with one in the midpol e measuring 6 x 4 x 3 mm and a second in the lower pole measuring 8 x 6 x 4 mm. No hydronephrosis Sim ple cyst in the upper pulmonary 1.2 x 1.0 x 1.0 cm. LEFT KIDNEY: Renal cortex is normal in thickness and echotexture. Prominent 8 x 1.3 x 0.4 mm nonobstructing stone in the midpole. Prominent cortical cysts with the largest in the midpole measuring 3.6 x 2.8 x 3.5 cm . Smaller lower pole cyst measures 2.7 x 3.1 x 2.5 cm. BLADDER: Within normal limits given the degree of distension. Miscellaneous: Multiple gallstones identified, the largest measuring about 1.5 cm in diameter CONCLUSION: 1. Bilateral nonobstructing renal calculi. Largest in the left midpole measures 1.3 cm in diameter 2. Bilateral benign-appearing renal cortical cysts. 3. Gallstones. Krishna Castro MD on October 31, 2017 at 17:35 Board Certified Radiologist. This report was verified electronically.
[2017-10-31] MEDS ORDERED: VANCOMYCIN 25 MG/ML SOLN 100 ML BOTTLE PO SCH (18:30)
[2017-10-31] MEDS: SODIUM CHLORIDE 0.9% FLUSH 10 ML FLUSH IV FLUSH SCH (20:56)
[2017-10-31] MEDS: ATORVASTATIN 20 MG TAB PO SCH (20:57)
[2017-11-01 02:34] VITALS: BP 100/64; PULSE 86; RESP 16; TEMP 98.7; O2SAT 99
[2017-11-01] MEDS: SODIUM CHLOR 0.9% 1000 ML INJ 1,000 ML IV SCH ×2 (02:39→13:54)
[2017-11-01] MEDS: VANCOMYCIN 25 MG/ML SOLN 100 ML BOTTLE PO SCH ×5 (02:53→21:30)
[2017-11-01] MEDS: SODIUM CHLORIDE 0.9% FLUSH 10 ML FLUSH IV FLUSH SCH ×2 (09:00→21:32)
[2017-11-01] MEDS ORDERED: WARFARIN SOD 1 MG TAB PO SCH (09:00)
[2017-11-01 09:15] VITALS: BP 90/55; PULSE 74; RESP 18; TEMP 98; O2SAT 100
--- NOTE | 2017-11-01 13:50 | MB ---
cc: Tonny Ng MD DATE OF CONSULT: 11/01/2017 REQUESTING PHYSICIAN: Dr. López. REASON: Clostridium difficile colitis. HISTORY OF PRESENT ILLNESS: This is a 71-year-old white male who presented to the emergency department with diarrhea. The patient states that he has been having diarrhea for the past two weeks. He was felt to be very weak by caregivers and he was brought to the emergency department for evaluation. He was previously treated for C. difficile according to the medical record. The patient was recently admitted to the hospital and discharged from rehab facility on 08/26 with a two-week course of Levaquin. He states that he was doing well but was not doing much activity at home. He states that he had a poor appetite over the past couple of weeks and the diarrhea continued for the past couple of weeks and eventually he was brought to the emergency department here for evaluation. Stool samples of C. difficile is positive. The white blood cell count is elevated at 15.1. He denies abdominal cramping. He states that he feels cold but he denies chills. He notes that he gets short of breath with activity. He has been started on oral vancomycin. Blood culture has no growth in one day. A urinalysis was performed and it has innumerable white cells and moderate white cell clumps and a large amount of leukocyte esterase. The patient has a urostomy. He has chronic kidney disease, Stage IV. He notes to me that he has not had a diarrhea bowel movement so far today. PAST MEDICAL HISTORY: 1. Hypertension. 2. Atrial fibrillation currently on Coumadin. 3. Hyperlipidemia. 4. Bladder cancer status post urostomy. 5. Parotid cancer. Parotid surgery. ALLERGIES: LOBSTER, CRAB. NO MEDICATION ALLERGIES. MEDICATIONS: 1. Vancomycin p.o. 2. Lipitor. SOCIAL HISTORY: No tobacco, no alcohol, no illicit drugs. FAMILY HISTORY: Noncontributory. REVIEW OF SYSTEMS: CONSTITUTIONAL: No fever or chills. HEAD, EYES, EARS, EYES, NOSE AND THROAT: No visual blurring or diplopia. No difficulty swallowing. No soreness of the throat. NECK: Denies neck pain. CARDIOVASCULAR: Denies palpitation or chest pain. RESPIRATORY: Admits to shortness of breath. Denies cough. GASTROINTESTINAL: Denies nausea or vomiting or abdominal pain. Positive for diarrhea. Decreased appetite. GENITOURINARY: Denies dysuria. Denies back pain. ENDOCRINE: Denies polyuria or polydipsia. MUSCULOSKELETAL: Denies muscle aches or pain. INTEGUMENARY: Denies skin rash or itching. NEUROLOGIC: Denies problems with coordination or tremulousness. PSYCHIATRIC: Denies mood changes. PHYSICAL EXAMINATION: GENERAL: This is a well-developed slim male with no acute distress. He is awake and alert. He feels somewhat chronically ill. VITAL SIGNS: Temperature 98 degrees, blood pressure 90/55, respirations 18, heart rate 74. HEENT: Head atraumatic. Extraocular movements grossly intact. Pupils reactive to light. No icterus. Oropharynx has moist mucosa. No visible lesions. NECK: Supple, without adenopathy. LUNGS: Clear. Decreased breath sounds bilaterally. HEART: Irregular S1 and S2. No murmurs, rubs or gallops. ABDOMEN: Bowel sounds present, soft. No tenderness appreciated. The right lower abdomen has urostomy bag in place which has turbid urine. GENITOURINARY: Normal genitalia. RECTAL: Not performed. EXTREMITIES: No clubbing, cyanosis or edema. SKIN: No rash. NEUROLOGIC: The patient is awake, alert and oriented. No gross focal findings. PSYCH: The patient is calm and cooperative. LABORATORY DATA: WBCs 15.1, platelets 248, 86% neutrophils, hemoglobin 8.5. Creatinine 4.16, BUN 56, estimated GFR 14. Liver function tests normal. IMPRESSION: 1. C. difficile colitis. 2. Leukocytosis. 3. UTI suggested by urinalysis. 4. Chronic kidney disease. 5. Bilateral nonobstructing renal calculi on ultrasound of the kidneys. RECOMMENDATIONS: 1. Continue vancomycin oral for C. difficile. 2. Monitor urine culture. 3. Monitor blood culture. 4. Monitor white blood cell count. 5. Monitor clinical status and follow the stool frequency. Thank you for this consultation. The patient's progress will be monitored and further recommendations will be given on followup. MD NATHALIE Harman/SB/ , 12:21 PM , 01:16 PM
--- NOTE | 2017-11-01 13:55 | HHI.PR ---
Subjective Remarks Follow-up C. difficile. Denies abdominal pain. No BM as of today. Discussed with nursing and infectious disease Objective Vitals Vital Signs Date Time Temp Pulse Resp B/P (MAP) Pulse Ox O2 Delivery O2 Flow Rate FiO2 11/01/17 09:15 98.0 74 18 90/55 (67) 100 11/01/17 02:34 98.7 86 16 100/64 (76) 99 10/31/17 20:04 96.8 92 20 101/67 (78) 100 89/56 (67) 10/31/17 18:25 96.7 89 16 86/53 (64) 99 10/31/17 17:32 10/31/17 16:55 83 15 106/53 (70) 100 Room Air 10/31/17 15:55 92 18 85/61 (69) 100 Room Air 10/31/17 14:24 85 16 90/58 (69) 100 Room Air I/O 10/31/17 10/31/17 10/31/17 11/01/17 11/01/17 11/01/17 07:00 15:00 23:00 07:00 15:00 23:00 Intake Total 1000 ml 750 ml 1000 ml Output Total 150 ml Balance 1000 ml 600 ml 1000 ml Intake IV Total 1000 ml 750 ml 1000 ml Output Urine Total 150 ml # Bowel Movements 1 Result Diagram: 10/31/17 1210 10/31/17 1210 Imaging Last Impressions Renal Ultrasound 10/31/17 0000 Signed Impressions: Service Date/Time: Tuesday, October 31, 2017 16:44 - CONCLUSION: 1. Bilateral nonobstructing renal calculi. Largest in the left midpole measures 1.3 cm in diameter 2. Bilateral benign-appearing renal cortical cysts. 3. Gallstones. Krishna Castro MD Objective Remarks GENERAL: This is a well-nourished, well-developed patient, in no apparent distress. SKIN: No rashes, ecchymoses or lesions. Cool and dry. CARDIOVASCULAR: Irreg Regular rate and rhythm without murmurs, gallops, or rubs. RESPIRATORY: Clear to auscultation. Breath sounds equal bilaterally. No wheezes , rales, or rhonchi. GASTROINTESTINAL: Abdomen soft, non-tender, nondistended. No guarding.urostomy bag in place with clear urine MUSCULOSKELETAL: Extremities without clubbing, cyanosis, or edema. No joint tenderness, effusion, or edema noted. No calf tenderness. Negative Homans sign bilaterally. NEUROLOGICAL: Awake and alert. Cranial nerves II through XII intact. Motor and sensory grossly within normal limits. Five out of 5 muscle strength in all muscle groups. Normal speech. Procedures none A/P Problem List: (1) Hypotension ICD Code: I95.9 - Hypotension, unspecified (2) Supratherapeutic INR ICD Code: R79.1 - Abnormal coagulation profile Status: Resolved (3) Diarrhea ICD Code: R19.7 - Diarrhea, unspecified (4) Generalized weakness ICD Code: R53.1 - Weakness Status: Acute (5) Recurrent Clostridium difficile diarrhea ICD Code: A04.71 - Enterocolitis due to Clostridium difficile, recurrent Status: Acute (6) CKD (chronic kidney disease), stage III ICD Code: N18.3 - Chronic kidney disease, stage 3 (moderate) Status: Chronic Assessment and Plan 77 years old man with Recurrent C. difficile. Continue vancomycin. Consult infectious disease Abnormal urinalysis. Follow-up urine culture Leukocytosis. Likely 2/2 from above. Improving Hypotension. Improving continue IV hydration CKD stage III. Improving continue IV hydration Supra therapeutic INR. Improved status post vitamin K. Restart Coumadin history of A. fib keep INR between 2 and 3 Generalized weakness. PT has recommended rehab DVT prophylaxis: Bilateral SCDs and Coumadin Discharge Planning Possible discharge in 1-2 days Waqar López MD Nov 01, 2017 13:55
[2017-11-01 14:45] VITALS: BP 108/64; PULSE 81; RESP 16; TEMP 97.8; O2SAT 100
[2017-11-01 16:02] LABS: BASOPHIL % 0.4 % (0.0-2.0); EOSINOPHIL # 0.3 TH/MM3 (0-0.4); EOSINOPHIL % 2.4 % (0.0-4.0); HEMATOCRIT 25.3 % (39.0-51.0); HEMOGLOBIN 8.3 GM/DL (13.0-17.0); LYMPH % 8.4 % (9.0-44.0); LYMPHOCYTE # 0.9 TH/MM3 (1.0-4.8); MEAN CORPUSCULAR HEMOGLOBIN 29.2 PG (27.0-34.0); MEAN CORPUSCULAR HGB CONC 32.8 % (32.0-36.0); MEAN PLATELET VOLUME 8.1 FL (7.0-11.0); MONO % 5.9 % (0.0-8.0); MONOCYTE # 0.6 TH/MM3 (0-0.9); NEUT % 82.9 % (16.0-70.0); PLATELET COUNT 243 TH/MM3 (150-450); RED BLOOD COUNT 2.85 MIL/MM3 (4.50-5.90); RED CELL DISTRIBUTION WIDTH 16.8 % (11.6-17.2); WHITE BLOOD COUNT 10.9 TH/MM3 (4.0-11.0)
[2017-11-01 16:08] LABS: PROTHROMBIN TIME - PATIENT 20.1 SEC (9.8-11.6)
[2017-11-01 16:18] LABS: ALBUMIN 2.1 GM/DL (3.4-5.0); ALT (GPT) 11 U/L (12-78); AST (GOT) 15 U/L (15-37); BICARBONATE 18.1 MEQ/L (21.0-32.0); BLOOD UREA NITROGEN 48 MG/DL (7-18); CALCIUM 7.6 MG/DL (8.5-10.1); CHLORIDE 120 MEQ/L (98-107); CREATININE 3.13 MG/DL (0.60-1.30); GLOMERULAR FILTRATION RATE 19 ML/MIN (>89); GLUCOSE,RANDOM 110 MG/DL (74-106); SODIUM (NA) 146 MEQ/L (136-145)
[2017-11-01 16:28] LABS: ALKALINE PHOSPHATASE 87 U/L (45-117); TOTAL BILIRUBIN ADULT 0.4 MG/DL (0.2-1.0); TOTAL PROTEIN 5.6 GM/DL (6.4-8.2)
[2017-11-01 19:11] VITALS: BP 110/79; PULSE 95; RESP 20; TEMP 97.8; O2SAT 100
[2017-11-01] MEDS: SODIUM CHLOR 0.45% 1000 ML INJ 1,000 ML IV SCH (21:31)
[2017-11-01] MEDS: ATORVASTATIN 20 MG TAB PO SCH (21:32)
[2017-11-01] MEDS: PILOCARPINE HCL 5 MG TAB PO SCH (21:32)
[2017-11-02 03:04] VITALS: BP 100/60; PULSE 82; RESP 20; TEMP 97.6; O2SAT 99
[2017-11-02] MEDS: SODIUM CHLOR 0.45% 1000 ML INJ 1,000 ML IV SCH ×2 (05:18→16:28)
[2017-11-02] MEDS: PILOCARPINE HCL 5 MG TAB PO SCH ×5 (05:51→22:23)
[2017-11-02 07:53] LABS: INTERNATIONAL NORMALIZED RATIO 1.3 RATIO; PROTHROMBIN TIME - PATIENT 13.5 SEC (9.8-11.6)
[2017-11-02 07:54] LABS: AUTOMATED NEUTROPHIL # 8.2 TH/MM3 (1.8-7.7); BASOPHIL % 0.4 % (0.0-2.0); EOSINOPHIL # 0.4 TH/MM3 (0-0.4); HEMATOCRIT 24.5 % (39.0-51.0); HEMOGLOBIN 8.1 GM/DL (13.0-17.0); LYMPH % 9.1 % (9.0-44.0); MEAN CELL VOLUME 89.4 FL (80.0-100.0); MEAN CORPUSCULAR HEMOGLOBIN 29.5 PG (27.0-34.0); MEAN PLATELET VOLUME 7.9 FL (7.0-11.0); MONO % 8.6 % (0.0-8.0); MONOCYTE # 0.9 TH/MM3 (0-0.9); NEUT % 77.9 % (16.0-70.0); PLATELET COUNT 217 TH/MM3 (150-450); RED BLOOD COUNT 2.74 MIL/MM3 (4.50-5.90); RED CELL DISTRIBUTION WIDTH 16.9 % (11.6-17.2); WHITE BLOOD COUNT 10.5 TH/MM3 (4.0-11.0)
[2017-11-02 08:07] VITALS: BP_SYST 107; BP_SYST 88; BP_SYST 91; BP_DIAS 52; BP_DIAS 62; BP_DIAS 75; PULSE 92; RESP 18; TEMP 97.7; O2SAT 99
[2017-11-02 08:18] LABS: BICARBONATE 17.3 MEQ/L (21.0-32.0); CALCIUM 7.2 MG/DL (8.5-10.1); CREATININE 2.62 MG/DL (0.60-1.30); MAGNESIUM 1.3 MG/DL (1.5-2.5)
[2017-11-02 08:35] LABS: CALCIUM-PROTEIN CORRECTED 8.1 MG/DL (8.5-10.1); TOTAL PROTEIN 5.5 GM/DL (6.4-8.2)
--- NOTE | 2017-11-02 08:40 | HHI.PR ---
Subjective Remarks Follow-up C. difficile. Patient noted to be orthostatic this morning. States no loose stools since yesterday. Discussed with nursing Objective Vitals Vital Signs Date Time Temp Pulse Resp B/P (MAP) Pulse Ox O2 Delivery O2 Flow Rate FiO2 11/02/17 08:07 97.7 92 18 107/75 (86) 99 91/62 (72) 88/52 (64) 11/02/17 03:04 97.6 82 20 100/60 (73) 99 11/01/17 19:11 97.8 95 20 110/79 (89) 100 11/01/17 14:45 97.8 81 16 108/64 (79) 100 11/01/17 09:15 98.0 74 18 90/55 (67) 100 I/O 11/01/17 11/01/17 11/01/17 11/02/17 11/02/17 11/02/17 07:00 15:00 23:00 07:00 15:00 23:00 Intake Total 1000 ml 800 ml Output Total 900 ml 400 ml Balance 1000 ml -100 ml -400 ml Intake IV Total 1000 ml 800 ml Output Urine Total 900 ml 400 ml # Bowel Movements 1 0 Result Diagram: 11/02/17 0713 11/02/17 0713 Imaging Last Impressions Renal Ultrasound 10/31/17 0000 Signed Impressions: Service Date/Time: Tuesday, October 31, 2017 16:44 - CONCLUSION: 1. Bilateral nonobstructing renal calculi. Largest in the left midpole measures 1.3 cm in diameter 2. Bilateral benign-appearing renal cortical cysts. 3. Gallstones. Krishna Castro MD Objective Remarks GENERAL: This is a well-nourished, well-developed patient, in no apparent distress. SKIN: No rashes, ecchymoses or lesions. Cool and dry. CARDIOVASCULAR: Irreg Regular rate and rhythm without murmurs, gallops, or rubs. RESPIRATORY: Clear to auscultation. Breath sounds equal bilaterally. No wheezes , rales, or rhonchi. GASTROINTESTINAL: Abdomen soft, non-tender, nondistended. No guarding.urostomy bag in place with clear urine MUSCULOSKELETAL: Extremities without clubbing, cyanosis, or edema. No joint tenderness, effusion, or edema noted. No calf tenderness. Negative Homans sign bilaterally. NEUROLOGICAL: Awake and alert. Cranial nerves II through XII intact. Motor and sensory grossly within normal limits. Five out of 5 muscle strength in all muscle groups. Normal speech. Procedures none A/P Problem List: (1) Hypotension ICD Code: I95.9 - Hypotension, unspecified (2) Supratherapeutic INR ICD Code: R79.1 - Abnormal coagulation profile Status: Resolved (3) Diarrhea ICD Code: R19.7 - Diarrhea, unspecified (4) Generalized weakness ICD Code: R53.1 - Weakness Status: Acute (5) Recurrent Clostridium difficile diarrhea ICD Code: A04.71 - Enterocolitis due to Clostridium difficile, recurrent Status: Acute (6) CKD (chronic kidney disease), stage III ICD Code: N18.3 - Chronic kidney disease, stage 3 (moderate) Status: Chronic Assessment and Plan 77 years old man with Recurrent C. difficile. Improving diarrhea. Continue vancomycin. Add Lactinex Abnormal urinalysis. Follow-up urine culture with Enterobacter cloaca K. Will alert infectious disease Leukocytosis. Likely 2/2 from above. Improving Orthostatic. Increase IV fluid to 100 cc an hour. Fluid bolus as needed. Fall precautions. 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 Improving continue IV hydration Supra therapeutic INR. Improved status post vitamin K. Restarted Coumadin history of A. fib keep INR between 2 and 3 Generalized weakness. PT has recommended rehab DVT prophylaxis: Bilateral SCDs and Coumadin Discharge Planning Possible discharge in 1-2 days Waqar López MD Nov 02, 2017 08:40
[2017-11-02] MEDS ORDERED: SODIUM CHLOR 0.9% 250 ML INJ 250 ML IV PRN (08:45)
[2017-11-02] MEDS ORDERED: NADOLOL 20 MG TAB PO SCH (09:00)
[2017-11-02] MEDS: SODIUM CHLORIDE 0.9% FLUSH 10 ML FLUSH IV FLUSH SCH ×2 (09:19→21:00)
[2017-11-02] MEDS: VANCOMYCIN 25 MG/ML SOLN 100 ML BOTTLE PO SCH ×4 (09:19→21:00)
[2017-11-02] MEDS: MAGNESIUM SULFATE 1 GM PREMIX 100 ML IV SCH ×2 (09:19→10:02)
[2017-11-02] MEDS: LACTOBACILLUS ACIDOPHILUS TAB PO SCH ×3 (10:02→18:16)
[2017-11-02 12:24] VITALS: BP 100/59; PULSE 75; RESP 20; TEMP 97.7; O2SAT 100
[2017-11-02] MEDS ORDERED: WARFARIN SOD 1 MG TAB PO ONE (16:00)
[2017-11-02 16:11] VITALS: BP 131/81; PULSE 83; RESP 18; TEMP 97.5; O2SAT 100
--- NOTE | 2017-11-02 17:39 | HHI.IDPN ---
Note Infectious Disease Note Patient says he does not feel good. Appetite is poor. Continues to have watery diarrhea. Has had approximately 4 bowel movements today so far. Denies abdominal cramps. Afebrile. Urine culture has Enterobacter cloacae. 71-year-old white male who presented to the emergency department with diarrhea. The patient states that he has been having diarrhea for the past two weeks. He was felt to be very weak by caregivers and he was brought to the emergency department for evaluation. He was previously treated for C. difficile according to the medical record. The patient was recently admitted to the hospital and discharged from rehab facility on 08/26 with a two-week course of Levaquin. PAST MEDICAL HISTORY: 1. Hypertension. 2. Atrial fibrillation currently on Coumadin. 3. Hyperlipidemia. 4. Bladder cancer status post urostomy. 5. Parotid cancer. Parotid surgery. ALLERGIES: LOBSTER, CRAB. NO MEDICATION ALLERGIES. MEDICATIONS: Current Medications Medications (Trade) Dose Ordered Sig/Marko Route PRN Reason Start Time Stop Time Status Last Admin Dose Admin Sodium Chloride (NS Flush) 2 ml UNSCH PRN IV FLUSH FLUSH AFTER USING IV ACCESS 10/31/17 15:00 Sodium Chloride (NS Flush) 2 ml BID IV FLUSH 10/31/17 21:00 11/02/17 09:19 Acetaminophen (Tylenol) 650 mg Q4H PRN PO TEMP > 100.4 10/31/17 15:00 Ondansetron HCl (Zofran Inj) 4 mg Q6H PRN IVP NAUSEA OR VOMITING 10/31/17 15:00 Acetaminophen (Tylenol) 650 mg Q6H PRN PO PAIN SCALE 1 TO 2 10/31/17 15:00 Naloxone HCl (Narcan Inj) 0.4 mg UNSCH PRN IV PUSH SEE LABEL COMMENTS 10/31/17 15:00 Albuterol/ Ipratropium (Duoneb Neb) 1 ampule Q2HR NEB PRN NEB SOB/WHEEZING 10/31/17 15:00 Atorvastatin Calcium (Lipitor) 20 mg HS PO 10/31/17 21:00 11/01/17 21:32 Pharmacy Profile Note 0 ml @ 0 mls/hr UNSCH OTHER 10/31/17 15:30 Vancomycin HCl (Vancomycin 25 Mg/ml Liq) 125 mg QID PO 11/01/17 02:00 11/02/17 12:30 Sodium Chloride 1,000 ml @ 100 mls/hr Q10H IV 11/01/17 17:30 11/02/17 16:28 [place] ([place]) 5 mg Q6HR PO 11/01/17 20:00 11/02/17 10:02 Warfarin Sodium (Coumadin) 1 mg DAILY@1600 PO 11/03/17 16:00 Sodium Chloride 250 ml @ 250 mls/hr BOLUS PRN IV if oprthostatic or sbp < 90 11/02/17 08:45 Lactobacillus Acidophilus (Lactinex) 1 tab TID PO 11/02/17 09:00 11/02/17 12:30 OBJECTIVE: Vital Signs Date Time Temp Pulse Resp B/P (MAP) Pulse Ox O2 Delivery O2 Flow Rate FiO2 11/02/17 16:11 97.5 83 18 131/81 (98) 100 11/02/17 12:24 97.7 75 20 100/59 (73) 100 11/02/17 08:07 97.7 92 18 107/75 (86) 99 91/62 (72) 88/52 (64) 11/02/17 03:04 97.6 82 20 100/60 (73) 99 11/01/17 19:11 97.8 95 20 110/79 (89) 100 Laboratory Tests Test 11/01/17 14:57 11/02/17 07:13 White Blood Count 10.9 TH/MM3 10.5 TH/MM3 Red Blood Count 2.85 MIL/MM3 2.74 MIL/MM3 Hemoglobin 8.3 GM/DL 8.1 GM/DL Hematocrit 25.3 % 24.5 % Mean Corpuscular Volume 89.0 FL 89.4 FL Mean Corpuscular Hemoglobin 29.2 PG 29.5 PG Mean Corpuscular Hemoglobin Concent 32.8 % 33.0 % Red Cell Distribution Width 16.8 % 16.9 % Platelet Count 243 TH/MM3 217 TH/MM3 Mean Platelet Volume 8.1 FL 7.9 FL Neutrophils (%) (Auto) 82.9 % 77.9 % Lymphocytes (%) (Auto) 8.4 % 9.1 % Monocytes (%) (Auto) 5.9 % 8.6 % Eosinophils (%) (Auto) 2.4 % 4.0 % Basophils (%) (Auto) 0.4 % 0.4 % Neutrophils # (Auto) 9.0 TH/MM3 8.2 TH/MM3 Lymphocytes # (Auto) 0.9 TH/MM3 1.0 TH/MM3 Monocytes # (Auto) 0.6 TH/MM3 0.9 TH/MM3 Eosinophils # (Auto) 0.3 TH/MM3 0.4 TH/MM3 Basophils # (Auto) 0.0 TH/MM3 0.0 TH/MM3 CBC Comment DIFF FINAL DIFF FINAL Differential Comment Laboratory Tests Test 11/01/17 14:57 11/02/17 07:13 Blood Urea Nitrogen 48 MG/DL 42 MG/DL Creatinine 3.13 MG/DL 2.62 MG/DL Random Glucose 110 MG/DL 90 MG/DL Total Protein 5.6 GM/DL 5.5 GM/DL Albumin 2.1 GM/DL Calcium Level 7.6 MG/DL 7.2 MG/DL Alkaline Phosphatase 87 U/L Aspartate Amino Transf (AST/SGOT) 15 U/L Alanine Aminotransferase (ALT/SGPT) 11 U/L Total Bilirubin 0.4 MG/DL Sodium Level 146 MEQ/L 144 MEQ/L Potassium Level 3.9 MEQ/L 3.6 MEQ/L Chloride Level 120 MEQ/L 117 MEQ/L Carbon Dioxide Level 18.1 MEQ/L 17.3 MEQ/L Anion Gap 8 MEQ/L 10 MEQ/L Estimat Glomerular Filtration Rate 19 ML/MIN 24 ML/MIN Magnesium Level 1.3 MG/DL Protein Corrected Calcium 8.1 MG/DL Microbiology Date/Time Source Procedure Growth Status 10/31/17 13:45 Blood Line Aerobic Blood Culture - Preliminary NO GROWTH IN 2 DAYS Resulted 10/31/17 13:45 Blood Line Anaerobic Blood Culture - Preliminary NO GROWTH IN 2 DAYS Resulted 10/31/17 13:40 Blood Line Aerobic Blood Culture - Preliminary NO GROWTH IN 2 DAYS Resulted 10/31/17 13:40 Blood Line Anaerobic Blood Culture - Preliminary NO GROWTH IN 2 DAYS Resulted 10/31/17 15:00 Urine Clean Catch Urine Culture - Preliminary Enterobacter Cloacae Resulted PHYSICAL EXAMINATION: GENERAL: No acute distress. awake and alert. HEENT: Extraocular movements grossly intact. Pupils reactive to light. No icterus. Oropharynx dry mucosa. No visible lesions. Erythema at the tongue. NECK: Supple, without adenopathy. LUNGS: Clear decreased breath sounds. HEART: Irregular S1 and S2. No murmurs, rubs or gallops. ABDOMEN: Bowel sounds present, soft. No tenderness appreciated. The right lower abdomen has urostomy bag in place. GENITOURINARY: Normal genitalia. EXTREMITIES: No clubbing, cyanosis or edema. SKIN: No rash. NEUROLOGIC: The patient is awake, alert and oriented. No gross focal findings. PSYCH: Calm and cooperative. IMPRESSION: 1. C. difficile colitis. 2. Leukocytosis. 3. UTI vs Bacteruria Enterobacter. Patient has urostomy. 4. Chronic kidney disease. 5. Bilateral nonobstructing renal calculi on ultrasound of the kidneys. 6. Decreased appetite. RECOMMENDATIONS: 1. Continue vancomycin oral for C. difficile. 2. Hold off on antibiotic treatment for bacteria in the urine since the patient has a urostomy and would like to avoid unnecessary antibiotics. He has no fever or white blood cell count elevation. 3. Monitor temperature. 4. Monitor blood culture. 5. Monitor white blood cell count. 6. Monitor clinical status and follow the stool frequency. Tonny Ng MD Nov 02, 2017 17:39
[2017-11-02 19:40] VITALS: BP 106/69; PULSE 87; RESP 16; O2SAT 99
[2017-11-02] MEDS: ATORVASTATIN 20 MG TAB PO SCH (22:23)
[2017-11-02 23:58] VITALS: BP 114/81; PULSE 93; RESP 16; TEMP 98.1; O2SAT 97
[2017-11-03 05:29] LABS: BASOPHIL % 0.5 % (0.0-2.0); EOSINOPHIL # 0.4 TH/MM3 (0-0.4); EOSINOPHIL % 4.7 % (0.0-4.0); HEMATOCRIT 24.8 % (39.0-51.0); HEMOGLOBIN 8.2 GM/DL (13.0-17.0); LYMPH % 12.4 % (9.0-44.0); LYMPHOCYTE # 1.2 TH/MM3 (1.0-4.8); MEAN CELL VOLUME 88.2 FL (80.0-100.0); MEAN CORPUSCULAR HEMOGLOBIN 29.1 PG (27.0-34.0); MONO % 9.2 % (0.0-8.0); MONOCYTE # 0.9 TH/MM3 (0-0.9); NEUT % 73.2 % (16.0-70.0); PLATELET COUNT 218 TH/MM3 (150-450); RED BLOOD COUNT 2.81 MIL/MM3 (4.50-5.90); RED CELL DISTRIBUTION WIDTH 16.4 % (11.6-17.2); WHITE BLOOD COUNT 9.6 TH/MM3 (4.0-11.0)
[2017-11-03] MEDS: PILOCARPINE HCL 5 MG TAB PO SCH ×3 (05:37→17:36)
[2017-11-03] MEDS: SODIUM CHLOR 0.45% 1000 ML INJ 1,000 ML IV SCH ×2 (05:37→11:56)
[2017-11-03 05:39] VITALS: BP 125/85; PULSE 99; RESP 16; TEMP 98.1; O2SAT 99
[2017-11-03 05:40] LABS: INTERNATIONAL NORMALIZED RATIO 1.2 RATIO; PROTHROMBIN TIME - PATIENT 12.5 SEC (9.8-11.6)
[2017-11-03 06:15] LABS: BICARBONATE 16.4 MEQ/L (21.0-32.0); CALCIUM 7.3 MG/DL (8.5-10.1); CREATININE 2.27 MG/DL (0.60-1.30); MAGNESIUM 1.5 MG/DL (1.5-2.5)
[2017-11-03 06:30] LABS: CALCIUM-PROTEIN CORRECTED 8.2 MG/DL (8.5-10.1); TOTAL PROTEIN 5.4 GM/DL (6.4-8.2)
--- NOTE | 2017-11-03 08:16 | HHI.PR ---
Subjective Remarks Follow-up C. difficile and UTI. 4 loose stools yesterday and none so far today. Discussed with nursing Objective Vitals Vital Signs Date Time Temp Pulse Resp B/P (MAP) Pulse Ox O2 Delivery O2 Flow Rate FiO2 11/03/17 05:39 98.1 99 16 125/85 (98) 99 11/02/17 23:58 98.1 93 16 114/81 (92) 97 11/02/17 19:40 87 16 106/69 (81) 99 11/02/17 16:11 97.5 83 18 131/81 (98) 100 11/02/17 12:24 97.7 75 20 100/59 (73) 100 I/O 11/02/17 11/02/17 11/02/17 11/03/17 11/03/17 11/03/17 07:00 15:00 23:00 07:00 15:00 23:00 Intake Total 1200 ml 700 ml 1690 ml Output Total 400 ml Balance -400 ml 1200 ml 700 ml 1690 ml Intake Oral 250 ml 440 ml IV Total 1200 ml 1250 ml Other 450 ml Output Urine Total 400 ml Result Diagram: 11/03/17 0457 11/03/17 0457 Imaging Last Impressions Renal Ultrasound 10/31/17 0000 Signed Impressions: Service Date/Time: Tuesday, October 31, 2017 16:44 - CONCLUSION: 1. Bilateral nonobstructing renal calculi. Largest in the left midpole measures 1.3 cm in diameter 2. Bilateral benign-appearing renal cortical cysts. 3. Gallstones. Krishna Castro MD Objective Remarks GENERAL: This is a well-nourished, well-developed patient, in no apparent distress. SKIN: No rashes, ecchymoses or lesions. Cool and dry. CARDIOVASCULAR: Irreg Regular rate and rhythm without murmurs, gallops, or rubs. RESPIRATORY: Clear to auscultation. Breath sounds equal bilaterally. No wheezes , rales, or rhonchi. GASTROINTESTINAL: Abdomen soft, non-tender, nondistended. No guarding.urostomy bag in place with clear urine MUSCULOSKELETAL: Extremities without clubbing, cyanosis, or edema. No joint tenderness, effusion, or edema noted. No calf tenderness. Negative Homans sign bilaterally. NEUROLOGICAL: Awake and alert. Cranial nerves II through XII intact. Motor and sensory grossly within normal limits. Five out of 5 muscle strength in all muscle groups. Normal speech. Procedures none A/P Problem List: (1) Hypotension ICD Code: I95.9 - Hypotension, unspecified (2) Supratherapeutic INR ICD Code: R79.1 - Abnormal coagulation profile Status: Resolved (3) Diarrhea ICD Code: R19.7 - Diarrhea, unspecified (4) Generalized weakness ICD Code: R53.1 - Weakness Status: Acute (5) Recurrent Clostridium difficile diarrhea ICD Code: A04.71 - Enterocolitis due to Clostridium difficile, recurrent Status: Acute Assessment and Plan 77 years old man with Recurrent C. difficile. Improving diarrhea none so far today. Continue vancomycin and Lactinex Enterobacter cloacae and stenotrophomonas maltophilia UTI. Infectious disease holding off antibiotic in light of C. difficile, patient has urostomy with no fever and leukocytosis Leukocytosis. Likely 2/2 from above. Improving Orthostatic. Increase IV fluid to 100 cc an hour. Fluid bolus as needed. Fall precautions. 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 Improving creatinine but worsening acidosis switch to sodium bicarb hydration. Will monitor Supra therapeutic INR. Resolved status post vitamin K. Restarted Coumadin history of A. fib keep INR between 2 and 3 Generalized weakness. PT has recommended rehab DVT prophylaxis: Bilateral SCDs and Coumadin Discharge Planning Possible discharge in 1-2 days Waqar López MD Nov 03, 2017 08:16
[2017-11-03 08:42] VITALS: BP 130/83; PULSE 80; RESP 19; TEMP 98.7; O2SAT 99
[2017-11-03] MEDS: SODIUM CHLORIDE 0.9% FLUSH 10 ML FLUSH IV FLUSH SCH ×2 (09:38→21:00)
[2017-11-03] MEDS: LACTOBACILLUS ACIDOPHILUS TAB PO SCH ×3 (09:38→17:35)
[2017-11-03] MEDS: VANCOMYCIN 25 MG/ML SOLN 100 ML BOTTLE PO SCH ×4 (09:38→21:44)
[2017-11-03] MEDS ORDERED: WARFARIN SOD 1 MG TAB PO ONE (16:00)
--- NOTE | 2017-11-03 16:21 | HHI.IDPN ---
Note Infectious Disease Note Patient states that he feels a lot better today. He feels cold. No diarrhea today so far. Afebrile. Patient has a soft oil on his abdomen region which is soaked. He is having problems with the urostomy bag leaking. His hospital clothing is also wet at the abdomen. 71-year-old white male who presented to the emergency department with diarrhea. The patient states that he has been having diarrhea for the past two weeks. He was felt to be very weak by caregivers and he was brought to the emergency department for evaluation. He was previously treated for C. difficile according to the medical record. The patient was recently admitted to the hospital and discharged from rehab facility on 08/26 with a two-week course of Levaquin. PAST MEDICAL HISTORY: 1. Hypertension. 2. Atrial fibrillation currently on Coumadin. 3. Hyperlipidemia. 4. Bladder cancer status post urostomy. 5. Parotid cancer. Parotid surgery. ALLERGIES: LOBSTER, CRAB. NO MEDICATION ALLERGIES. MEDICATIONS: Current Medications Medications (Trade) Dose Ordered Sig/Marko Route PRN Reason Start Time Stop Time Status Last Admin Dose Admin Sodium Chloride (NS Flush) 2 ml UNSCH PRN IV FLUSH FLUSH AFTER USING IV ACCESS 10/31/17 15:00 Sodium Chloride (NS Flush) 2 ml BID IV FLUSH 10/31/17 21:00 11/03/17 09:38 Acetaminophen (Tylenol) 650 mg Q4H PRN PO TEMP > 100.4 10/31/17 15:00 Ondansetron HCl (Zofran Inj) 4 mg Q6H PRN IVP NAUSEA OR VOMITING 10/31/17 15:00 Acetaminophen (Tylenol) 650 mg Q6H PRN PO PAIN SCALE 1 TO 2 10/31/17 15:00 Naloxone HCl (Narcan Inj) 0.4 mg UNSCH PRN IV PUSH SEE LABEL COMMENTS 10/31/17 15:00 Albuterol/ Ipratropium (Duoneb Neb) 1 ampule Q2HR NEB PRN NEB SOB/WHEEZING 10/31/17 15:00 Atorvastatin Calcium (Lipitor) 20 mg HS PO 10/31/17 21:00 11/02/17 22:23 Pharmacy Profile Note 0 ml @ 0 mls/hr UNSCH OTHER 10/31/17 15:30 Vancomycin HCl (Vancomycin 25 Mg/ml Liq) 125 mg QID PO 11/01/17 02:00 11/03/17 13:00 Pilocarpine (Salagen) 5 mg Q6HR PO 11/01/17 20:00 11/03/17 12:00 Warfarin Sodium (Coumadin) 1 mg DAILY@1600 PO 11/03/17 16:00 Sodium Chloride 250 ml @ 250 mls/hr BOLUS PRN IV if oprthostatic or sbp < 90 11/02/17 08:45 Lactobacillus Acidophilus (Lactinex) 1 tab TID PO 11/02/17 09:00 11/03/17 13:00 Sodium Bicarbonate 100 meq/Sodium Chloride 1,100 ml @ 100 mls/hr Q11H IV 11/03/17 17:00 OBJECTIVE: Vital Signs Date Time Temp Pulse Resp B/P (MAP) Pulse Ox O2 Delivery O2 Flow Rate FiO2 11/03/17 08:42 98.7 80 19 130/83 (99) 99 11/03/17 05:39 98.1 99 16 125/85 (98) 99 11/02/17 23:58 98.1 93 16 114/81 (92) 97 11/02/17 19:40 87 16 106/69 (81) 99 Laboratory Tests Test 11/02/17 07:13 11/03/17 04:57 White Blood Count 10.5 TH/MM3 9.6 TH/MM3 Red Blood Count 2.74 MIL/MM3 2.81 MIL/MM3 Hemoglobin 8.1 GM/DL 8.2 GM/DL Hematocrit 24.5 % 24.8 % Mean Corpuscular Volume 89.4 FL 88.2 FL Mean Corpuscular Hemoglobin 29.5 PG 29.1 PG Mean Corpuscular Hemoglobin Concent 33.0 % 33.0 % Red Cell Distribution Width 16.9 % 16.4 % Platelet Count 217 TH/MM3 218 TH/MM3 Mean Platelet Volume 7.9 FL 8.0 FL Neutrophils (%) (Auto) 77.9 % 73.2 % Lymphocytes (%) (Auto) 9.1 % 12.4 % Monocytes (%) (Auto) 8.6 % 9.2 % Eosinophils (%) (Auto) 4.0 % 4.7 % Basophils (%) (Auto) 0.4 % 0.5 % Neutrophils # (Auto) 8.2 TH/MM3 7.0 TH/MM3 Lymphocytes # (Auto) 1.0 TH/MM3 1.2 TH/MM3 Monocytes # (Auto) 0.9 TH/MM3 0.9 TH/MM3 Eosinophils # (Auto) 0.4 TH/MM3 0.4 TH/MM3 Basophils # (Auto) 0.0 TH/MM3 0.0 TH/MM3 CBC Comment DIFF FINAL DIFF FINAL Differential Comment Laboratory Tests Test 11/02/17 07:13 11/03/17 04:57 Blood Urea Nitrogen 42 MG/DL 35 MG/DL Creatinine 2.62 MG/DL 2.27 MG/DL Random Glucose 90 MG/DL 84 MG/DL Total Protein 5.5 GM/DL 5.4 GM/DL Calcium Level 7.2 MG/DL 7.3 MG/DL Magnesium Level 1.3 MG/DL 1.5 MG/DL Sodium Level 144 MEQ/L 143 MEQ/L Potassium Level 3.6 MEQ/L 3.7 MEQ/L Chloride Level 117 MEQ/L 117 MEQ/L Carbon Dioxide Level 17.3 MEQ/L 16.4 MEQ/L Anion Gap 10 MEQ/L 10 MEQ/L Estimat Glomerular Filtration Rate 24 ML/MIN 28 ML/MIN Protein Corrected Calcium 8.1 MG/DL 8.2 MG/DL Vital Signs Date Time Temp Pulse Resp B/P (MAP) Pulse Ox O2 Delivery O2 Flow Rate FiO2 11/02/17 16:11 97.5 83 18 131/81 (98) 100 11/02/17 12:24 97.7 75 20 100/59 (73) 100 11/02/17 08:07 97.7 92 18 107/75 (86) 99 91/62 (72) 88/52 (64) 11/02/17 03:04 97.6 82 20 100/60 (73) 99 11/01/17 19:11 97.8 95 20 110/79 (89) 100 PHYSICAL EXAMINATION: GENERAL: No acute distress. awake and alert. HEENT: Extraocular movements grossly intact. Pupils reactive to light. No icterus. Oropharynx dry mucosa. No visible lesions. NECK: Supple, without adenopathy. LUNGS: Decreased breath sounds. HEART: Irregular S1 and S2. No murmurs, rubs or gallops. ABDOMEN: Bowel sounds present, soft. No tenderness appreciated. The right lower abdomen has urostomy bag in place. GENITOURINARY: Normal genitalia. EXTREMITIES: No clubbing, cyanosis or edema. SKIN: No rash. NEUROLOGIC: Nonfocal. PSYCH: Calm and cooperative. IMPRESSION: 1. C. difficile colitis. Appears to be beginning to improve. 2. Leukocytosis. Improved. 3. UTI vs Bacteruria Enterobacter/Stenotrophomonas. Patient has urostomy. 4. Chronic kidney disease. 5. Bilateral nonobstructing renal calculi on ultrasound of the kidneys. 6. Decreased appetite. RECOMMENDATIONS: 1. Continue vancomycin oral for C. difficile. 2. Hold off on antibiotic treatment for bacteria in the urine since the patient has a urostomy and would like to avoid unnecessary antibiotics. He has no fever or white blood cell count elevation. 3. Monitor temperature. 4. Monitor clinical status and follow the stool frequency. If the stools become formed. Would continue to treat him with oral vancomycin for a total of 14 days. Tonny Ng MD Nov 03, 2017 16:21
[2017-11-03 16:27] VITALS: BP 129/79; PULSE 86; RESP 20; O2SAT 95
--- NOTE | 2017-11-03 16:27 | PD.WCN.NOT ---
Wound Consult Description: Consult placed for ostomy management of leaking appliance per Ceci MCCLELLAND Communicated with: POLLY Khan Recommendation: Remove urostomy pouch and wafer when leaking, please do not reinforce with tape. Cleanse peristomal skin with water only and completely pat dry. Apply new wafer and pouch to dry skin and hold gloved hand over pouching system to warm (1-2 minutes). May encrust if skin is broken down around stoma by dusting with stoma powder ( wipe away excess powder) and then apply moderate amount of Cavilon barrier film to seal in powder and allow to dry before placing new wafer. Additional Information: Patient seen in G pod for leaking ostomy appliance on right side mid/low abdomen urostomy. Appliance changed by administrative underwriter after encrusting with stoma powder and Cavilon barrier film. Ostomy Type: Ilealostomy Conduit Additional information Ostomy appliance was visualized on the mid/low right side abdomen reinforced with plastic tape and leaking. Patient states that he usually uses [employer] appliances with a belt and there were none available to him here. It was explained to the patient that we had [employer] appliances here and brought to the bedside for wafer and pouching system to be changed. All tape and ostomy pouching system was removed by administrative underwriter. Peristomal skin was cleansed with water and pat dry. Peristomal broken down denuded skin was then dusted with stoma powder and excess was wiped away. Cavilon barrier film was then applied over powder (nothing will stick to powder) and allowed to air dry for ~15-20 seconds before placing new wafer and pouching system. Desk Manager held a gloved hand over pouching system for about a minute and then the patient held his hand over the appliance when administrative underwriter left the room. POLLY Khan was notified that wound care could be contacted via [employer] if appliance was found to be leaking tomorrow and the appliance could be changed using a different method if this was not an appropriate intervention for the patient. Mae Dixon [facility] Nov 03, 2017 16:27
[2017-11-03] MEDS: WARFARIN SOD 1 MG TAB PO SCH (17:36)
[2017-11-03] MEDS: SODIUM BICARBONATE 8.4% INJ 100 MEQ in SODIUM CHLOR 0.45% 1000 ML INJ 1,000 ML IV SCH (17:36)
[2017-11-03 21:05] VITALS: BP 166/74; PULSE 85; RESP 18; TEMP 97.9; O2SAT 99
[2017-11-03] MEDS: ATORVASTATIN 20 MG TAB PO SCH (21:43)
[2017-11-04] MEDS: PILOCARPINE HCL 5 MG TAB PO SCH ×4 (00:19→18:02)
[2017-11-04 02:31] VITALS: BP 113/75; PULSE 98; RESP 18; TEMP 97.9; O2SAT 98
[2017-11-04] MEDS: SODIUM BICARBONATE 8.4% INJ 100 MEQ in SODIUM CHLOR 0.45% 1000 ML INJ 1,000 ML IV SCH (06:06)
[2017-11-04 08:23] VITALS: BP 127/74; PULSE 90; RESP 16; TEMP 97.6; O2SAT 98
--- NOTE | 2017-11-04 08:56 | HHI.PR ---
Subjective Remarks Follow-up C. difficile. Improving diarrhea only 2 episodes last night and none today. He wants to be discharged today. Discussed with nursing Objective Vitals Vital Signs Date Time Temp Pulse Resp B/P (MAP) Pulse Ox O2 Delivery O2 Flow Rate FiO2 11/04/17 08:23 97.6 90 16 127/74 (91) 98 11/04/17 02:31 97.9 98 18 113/75 (88) 98 11/03/17 21:05 97.9 85 18 166/74 (104) 99 11/03/17 16:27 86 20 129/79 (96) 95 I/O 11/03/17 11/03/17 11/03/17 11/04/17 11/04/17 11/04/17 07:00 15:00 23:00 07:00 15:00 23:00 Intake Total 1690 ml 1800 ml 1300 ml Output Total 800 ml 975 ml Balance 1690 ml 1000 ml 325 ml Intake Oral 440 ml 500 ml 200 ml IV Total 1250 ml 1300 ml 1100 ml Output Urine Total 800 ml 975 ml # Bowel Movements 1 Result Diagram: 11/03/17 0457 11/03/17 0457 Imaging Last Impressions Renal Ultrasound 10/31/17 0000 Signed Impressions: Service Date/Time: Tuesday, October 31, 2017 16:44 - CONCLUSION: 1. Bilateral nonobstructing renal calculi. Largest in the left midpole measures 1.3 cm in diameter 2. Bilateral benign-appearing renal cortical cysts. 3. Gallstones. Krishna Castro MD Objective Remarks GENERAL: This is a well-nourished, well-developed patient, in no apparent distress. SKIN: No rashes, ecchymoses or lesions. Cool and dry. CARDIOVASCULAR: Irreg Regular rate and rhythm without murmurs, gallops, or rubs. RESPIRATORY: Clear to auscultation. Breath sounds equal bilaterally. GASTROINTESTINAL: Abdomen soft, non-tender, nondistended. No guarding.urostomy bag in place with clear urine MUSCULOSKELETAL: Extremities without clubbing, cyanosis, or edema. No joint tenderness, effusion, or edema noted. No calf tenderness. Negative Homans sign bilaterally. NEUROLOGICAL: Awake and alert. Cranial nerves II through XII intact. Motor and sensory grossly within normal limits. Five out of 5 muscle strength in all muscle groups. Normal speech. Procedures none A/P Problem List: (1) Hypotension ICD Code: I95.9 - Hypotension, unspecified (2) Supratherapeutic INR ICD Code: R79.1 - Abnormal coagulation profile Status: Resolved (3) Diarrhea ICD Code: R19.7 - Diarrhea, unspecified (4) Generalized weakness ICD Code: R53.1 - Weakness Status: Acute (5) Recurrent Clostridium difficile diarrhea ICD Code: A04.71 - Enterocolitis due to Clostridium difficile, recurrent Status: Acute Assessment and Plan 77 years old man with Recurrent C. difficile. Improving diarrhea none so far today. Continue vancomycin a total of 14 days and Lactinex Enterobacter cloacae and stenotrophomonas maltophilia UTI. Infectious disease holding off antibiotic in light of C. difficile, patient has urostomy with no fever and leukocytosis Leukocytosis. Likely 2/2 from above. Improving Orthostatic. Improved. Fluid bolus as needed. Fall precautions. 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 Improving creatinine and acidosison sodium bicarb infusion. Will monitor Supra therapeutic INR. Resolved status post vitamin K. Restarted Coumadin history of A. fib keep INR between 2 and 3 Generalized weakness. PT has recommended rehab DVT prophylaxis: Bilateral SCDs and Coumadin Discharge Planning Stable for discharge Waqar López MD Nov 04, 2017 08:55
[2017-11-04 09:08] LABS: INTERNATIONAL NORMALIZED RATIO 1.2 RATIO; PROTHROMBIN TIME - PATIENT 11.7 SEC (9.8-11.6)
[2017-11-04 09:33] LABS: BICARBONATE 19.9 MEQ/L (21.0-32.0); CALCIUM 7.7 MG/DL (8.5-10.1); CREATININE 1.95 MG/DL (0.60-1.30); MAGNESIUM 1.5 MG/DL (1.5-2.5)
[2017-11-04] MEDS: LACTOBACILLUS ACIDOPHILUS TAB PO SCH ×3 (09:48→18:02)
[2017-11-04] MEDS: VANCOMYCIN 25 MG/ML SOLN 100 ML BOTTLE PO SCH ×3 (09:48→18:02)
[2017-11-04] MEDS: SODIUM CHLORIDE 0.9% FLUSH 10 ML FLUSH IV FLUSH SCH (09:49)
[2017-11-04 12:13] VITALS: BP 115/78; PULSE 96; RESP 16; TEMP 97.8; O2SAT 98
[2017-11-04] MEDS ORDERED: VANC500I3 PO (12:57)
[2017-11-04] MEDS ORDERED: LACT PO (12:57)
--- NOTE | 2017-11-04 12:59 | HHI.DCPOC ---
Discharge Care Plan Diagnosis: (1) Recurrent Clostridium difficile diarrhea (2) Dehydration (3) CKD (chronic kidney disease), stage III (4) Diarrhea (5) Generalized weakness Goals to Promote Your Health * To prevent worsening of your condition and complications * To maintain your health at the optimal level Directions to Meet Your Goals Take your medications as prescribed Follow your dietary instruction Follow activity as directed Keep your appointments as scheduled Take your immunizations and boosters as scheduled If your symptoms worsen call your PCP, if no PCP go to Urgent Care Center or Emergency Room Smoking is Dangerous to Your Health. Avoid second hand smoke Call the 24-hour hour crisis hotline for domestic abuse at Ceci Mullen PA-C Nov 04, 2017 12:58 pm
[2017-11-04] MEDS ORDERED: COUM1TAB PO (14:33)
[2017-11-04 15:27] VITALS: BP 110/62; PULSE 93; RESP 20; TEMP 98; O2SAT 100
[2017-11-04] MEDS ORDERED: WARFARIN SOD 1 MG TAB PO ONE (16:00)
--- NOTE | 2017-11-04 17:06 | HHI.DS ---
Discharge Summary Admission Date Nov 01, 2017 at 11:28 Discharge Date: Nov 04, 2017 Admitting Diagnosis recurrent C. difficile, leukocytosis, hypotension (1) Hypotension ICD Code: I95.9 - Hypotension, unspecified Diagnosis: Principal (2) Supratherapeutic INR ICD Code: R79.1 - Abnormal coagulation profile Diagnosis: Principal Status: Resolved (3) Diarrhea ICD Code: R19.7 - Diarrhea, unspecified Diagnosis: Principal (4) Generalized weakness ICD Code: R53.1 - Weakness Diagnosis: Principal Status: Acute (5) Recurrent Clostridium difficile diarrhea ICD Code: A04.71 - Enterocolitis due to Clostridium difficile, recurrent Diagnosis: Principal Status: Acute Procedures none Brief History - From Admission 77 year-old male with known history of atrial fibrillation, hyperlipidemia, history of liver cancer, history of parotid cancer who presented to hospital by [facility] because of watery diarrhea x 12 days duration along with weakness. Patient has a known history of C diff diarrhea for which he was previously treated for; however current he is unsure if he is getting any antibiotic therapy for it. States, [facility] was called today by a nurse who was visiting to check on him and found the patient to be extremely weak due to multiple episode of diarrhea. While in the ED he was found to have low BP, however he denies any dizziness, shortness of breath or chest pain. He endorses decrease appetite but denies any nausea or emesis with PO intake. he has no GI bleeding. C diff PCR pending CBC/BMP: 11/03/17 0457 11/04/17 0837 Significant Findings Laboratory Tests Test 11/02/17 07:13 11/03/17 04:57 11/04/17 08:37 Red Blood Count 2.74 MIL/MM3 (4.50-5.90) 2.81 MIL/MM3 (4.50-5.90) Hemoglobin 8.1 GM/DL (13.0-17.0) 8.2 GM/DL (13.0-17.0) Hematocrit 24.5 % (39.0-51.0) 24.8 % (39.0-51.0) Neutrophils (%) (Auto) 77.9 % (16.0-70.0) 73.2 % (16.0-70.0) Monocytes (%) (Auto) 8.6 % (0.0-8.0) 9.2 % (0.0-8.0) Neutrophils # (Auto) 8.2 TH/MM3 (1.8-7.7) Prothrombin Time 13.5 SEC (9.8-11.6) 12.5 SEC (9.8-11.6) 11.7 SEC (9.8-11.6) Blood Urea Nitrogen 42 MG/DL (7-18) 35 MG/DL (7-18) 29 MG/DL (7-18) Creatinine 2.62 MG/DL (0.60-1.30) 2.27 MG/DL (0.60-1.30) 1.95 MG/DL (0.60-1.30) Total Protein 5.5 GM/DL (6.4-8.2) 5.4 GM/DL (6.4-8.2) Calcium Level 7.2 MG/DL (8.5-10.1) 7.3 MG/DL (8.5-10.1) 7.7 MG/DL (8.5-10.1) Magnesium Level 1.3 MG/DL (1.5-2.5) Chloride Level 117 MEQ/L (98-107) 117 MEQ/L (98-107) 117 MEQ/L (98-107) Carbon Dioxide Level 17.3 MEQ/L (21.0-32.0) 16.4 MEQ/L (21.0-32.0) 19.9 MEQ/L (21.0-32.0) Estimat Glomerular Filtration Rate 24 ML/MIN (>89) 28 ML/MIN (>89) 33 ML/MIN (>89) Protein Corrected Calcium 8.1 MG/DL (8.5-10.1) 8.2 MG/DL (8.5-10.1) Eosinophils (%) (Auto) 4.7 % (0.0-4.0) Imaging Last Impressions Renal Ultrasound 10/31/17 0000 Signed Impressions: Service Date/Time: Tuesday, October 31, 2017 16:44 - CONCLUSION: 1. Bilateral nonobstructing renal calculi. Largest in the left midpole measures 1.3 cm in diameter 2. Bilateral benign-appearing renal cortical cysts. 3. Gallstones. Krishna Castro MD PE at Discharge GENERAL: This is a well-nourished, well-developed patient, in no apparent distress. SKIN: No rashes, ecchymoses or lesions. Cool and dry. CARDIOVASCULAR: Irreg Regular rate and rhythm without murmurs, gallops, or rubs. RESPIRATORY: Clear to auscultation. Breath sounds equal bilaterally. GASTROINTESTINAL: Abdomen soft, non-tender, nondistended. No guarding.urostomy bag in place with clear urine MUSCULOSKELETAL: Extremities without clubbing, cyanosis, or edema. No joint tenderness, effusion, or edema noted. No calf tenderness. Negative Homans sign bilaterally. NEUROLOGICAL: Awake and alert. Cranial nerves II through XII intact. Motor and sensory grossly within normal limits. Five out of 5 muscle strength in all muscle groups. Normal speech. Hospital Course 77 years old man with Recurrent C. difficile. Improving diarrhea none so far today. Continue vancomycin a total of 14 days and Lactinex Enterobacter cloacae and stenotrophomonas maltophilia UTI. Infectious disease holding off antibiotic in light of C. difficile, patient has urostomy with no fever and leukocytosis Leukocytosis. Likely 2/2 from above. Improving Orthostatic. Improved. Fluid bolus as needed. Fall precautions. 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 Improving creatinine and acidosison sodium bicarb infusion. Will monitor Supra therapeutic INR. Resolved status post vitamin K. Restarted Coumadin history of A. fib keep INR between 2 and 3 Generalized weakness. PT has recommended rehab DVT prophylaxis: Bilateral SCDs and Coumadin Pt Condition on Discharge: Stable Discharge Disposition: Discharge to SNF Discharge Time: > 30 minutes Discharge Instructions DIET: Follow Instructions for: Heart Healthy Diet Activities you can perform: Regular-No Restrictions Follow up Referrals: [facility] New Orders: BASIC METABOLIC PROF - 11/07/17 PT/INR - 11/05/17 PT/INR - 11/07/17 PT/INR - 11/09/17 New Medications: Lactobacillus Acidophilus (Acidophilus/l-Sporogenes) 35 Million Cell-25 Million Cell Tab 1 TAB PO TID for Cdiff for 10 Days, #30 TAB Vancomycin Inj (Vancomycin Inj) 500 Mg Inj 125 MG PO QID for Cdiff for 10 Days, #40 INJECTION Changed Medications: Warfarin (Coumadin) 1 Mg Tab 2 MG PO DAILY for Prevent Blood Clot, #30 TAB 0 Refills (Changed from: 1 MG) Continued Medications: Atorvastatin (Atorvastatin) 20 Mg Tab 20 MG PO HS for Cholesterol Management, #30 TAB 0 Refills Guaifenesin ER (Mucus Relief ER) 600 Mg Tab 600 MG PO BID PRN for CHEST CONGESTION AND/OR COUGH, TAB 0 Refills Pilocarpine (Pilocarpine) 5 Mg Tab 5 MG PO Q6HR for Dry Mouth, #120 TAB 0 Refills Discontinued Medications: Bisacodyl Supp (Dulcolax Supp) 10 Mg Supp 10 MG RECTAL DAILY PRN for CONSTIPATION, #12 SUPP 0 Refills Cephalexin (Keflex) 500 Mg Cap 500 MG PO Q12H for Infection for 5 Days, #10 CAP 0 Refills Fluconazole (Diflucan) 200 Mg Tab 200 MG PO DAILY for Infection, TAB 0 Refills Waqar López MD Nov 04, 2017 17:06
[2017-11-04] MEDS: WARFARIN SOD 1 MG TAB PO SCH (18:02)
== END 2017-11-04 19:13 | DRG 372 ==
LOC: NEPE 11:42 → NEDA 14:58 → NEPGCP 17:26 → OBSVTOIN 11-01 11:28
PROVIDERS: ADMIT Internal Medicine; ATTEND Internal Medicine
DX: A04.71 Enterocolitis due to Clostridium difficile, recurrent (principal); E87.2 Acidosis; I95.9 Hypotension, unspecified; N18.4 Chronic kidney disease, stage 4 (severe); I48.91 Unspecified atrial fibrillation; E86.0 Dehydration; N39.0 Urinary tract infection, site not specified; D64.9 Anemia, unspecified; R79.1 Abnormal coagulation profile; B96.89 Other specified bacterial agents as the cause of diseases classified elsewhere; N20.0 Calculus of kidney; I12.9 Hypertensive chronic kidney disease with stage 1 through stage 4 chronic kidney disease, or unspecified chronic kidney disease; E78.5 Hyperlipidemia, unspecified; Z93.6 Other artificial openings of urinary tract status; Z79.01 Long term (current) use of anticoagulants; Z85.51 Personal history of malignant neoplasm of bladder; Z87.891 Personal history of nicotine dependence; Z85.818 Personal history of malignant neoplasm of other sites of lip, oral cavity, and pharynx; Z92.3 Personal history of irradiation
CPT/HCPCS: 76775; 80048; 80053; 81001; 83605; 83690; 83735; 84155; 85025; 85610; 85730; 86850; 86900; 86901; 87040; 87077; 87086; 87186; 87493; 96361; 96365; 96376; G0378; G8987-GP; G8988-GP; J3370; J3430; J3475; J7030; J7040; J7050

== ENCOUNTER 2017-12-06 12:45 | Inpatient (IN) | payer MEDICARE, BC ==
[~2017-12-06] VITALS: Ht 175.3 cm; Wt 71.0 kg
[~2017-12-06 12:45] MED LIST changes: -CEPH-460 PO; -DIFL200T PO; -DULC10SU3 RECTAL; +LACT PO; -NADO20TA PO; +VANC500I3 PO
[2017-12-06 12:55] VITALS: BP 94/53; PULSE 66; RESP 18; TEMP 97.6; O2SAT 100
--- NOTE | 2017-12-06 13:43 | PD ---
HPI Chief Complaint: Fall Time Seen by Provider: 13:04 Travel History International Travel<30 days: No Contact w/Intl Traveler<30days: No Traveled to known affect area: No History of Present Illness HPI 77-year-old male that presents to the ED for evaluation of fall. Per patient he was just released from rehab for a previous fall as well as weakness. Patient has a history of chronic kidney disease and has hypotension which is chronic for him. Patient he does supposed to take Coumadin and he is not sure if he is taking them. Per patient he was released from the rehab today and went into his home with his friend and he did not grab to the rail and he missed a step and twisted his left foot. Landed on his left foot. Denies hitting his head or losing consciousness. States having pain to his elbow as well but most of the pain per patient is to the posterior aspect of the left knee. Denies any injuries to it before. No surgeries to be before. Per patient his pain is 6 out of 10. He was brought here by ambulance for evaluation of this. No neck or back pain. Denies any urinary or bowel movement issues. No chest pain or shortness of breath. Per patient he has no pain on the elbow at all other than a small bruise that he has. Allergic to lobster and crafts. PFSH Past Medical History Hx Anticoagulant Therapy: Yes Arthritis: No Atrial Fibrillation: Yes Heart Rhythm Problems: No Cancer: Yes (bladder ca; neck mass) Cardiovascular Problems: Yes (Arrhythmia ) High Cholesterol: Yes Chemotherapy: Yes (7 treatments) Chest Pain: No Congestive Heart Failure: No Diminished Hearing: No Endocrine: No Gastrointestinal Disorders: No Genitourinary: Yes (bladder cancer) Hypertension: No Immune Disorder: No Implanted Vascular Access Dvce: Yes Neurologic: No Psychiatric: No Reproductive: No Respiratory: No Radiation Therapy: Yes (46 treatments) Seizures: No Past Surgical History Abdominal Surgery: No Cardiac Surgery: No Ear Surgery: No Endocrine Surgery: Yes (Parotid Mass) Eye Surgery: No Genitourinary Surgery: Yes (bladder cancer) Gynecologic Surgery: No Neurologic Surgery: No Oral Surgery: No Thoracic Surgery: No Other Surgery: Yes Social History Alcohol Use: No Tobacco Use: No Substance Use: No Allergies-Medications (Allergen,Severity, Reaction): Coded Allergies: crab (Verified Allergy, Intermediate, Rash, 10/31/17) Blue Shell crab causes severe rash all over face and neck. Needs PCN to help clear it up. Patient CAN eat Shrimp and clams, scallops, oysters without problems. Uncoded Allergies: LOBSTER (Adverse Reaction, Unknown, 09/09/17) Reported Meds & Prescriptions Reported Meds & Active Scripts Active Coumadin (Warfarin) 1 Mg Tab 2 Mg PO DAILY Acidophilus/l-Sporogenes (Lactobacillus Acidophilus) 35 Million Cell-25 Million Cell Tab 1 Tab PO TID 10 Days Vancomycin Inj (Vancomycin HCl) 500 Mg Inj 125 Mg PO QID 10 Days Reported Pilocarpine 5 Mg Tab 5 Mg PO Q6HR Mucus Relief ER (Guaifenesin) 600 Mg Tab 600 Mg PO BID PRN Atorvastatin (Atorvastatin Calcium) 20 Mg Tab 20 Mg PO HS Review of Systems Except as stated in HPI: all other systems reviewed are Neg Physical Exam Narrative GENERAL: SKIN: Warm and dry. HEAD: Atraumatic. Normocephalic. EYES: Pupils equal and round. No scleral icterus. No injection or drainage. ENT: No nasal bleeding or discharge. Mucous membranes pink and moist. Tongue is midline. No uvula deviation. NECK: Trachea midline. No JVD. CARDIOVASCULAR: Regular rate and rhythm. No murmurs, S3, S4. RESPIRATORY: No accessory muscle use. Clear to auscultation. Breath sounds equal bilaterally. GASTROINTESTINAL: Abdomen soft, non-tender, nondistended. Hepatic and splenic margins not palpable. MUSCULOSKELETAL: Extremities without clubbing, cyanosis, or edema. No obvious deformities. Full range of motion of the upper and lower extremities bilaterally with exception of the left knee. 2+ pulses bilaterally. Patient cannot move the left knee secondary to discomfort. Patient does have pain on the posterior aspect of the knee. More in the area of the femur done the tibia and fibula. No obvious bony deformity noted. No obvious hip deformity noted but does have some pain with movement. Patient has a superficial abrasion/ bruise to the left elbow. No lumbar, thoracic and cervical spine tenderness to palpation. No sign of head injury. NEUROLOGICAL: Awake and alert. No obvious cranial nerve deficits. Motor grossly within normal limits. Five out of 5 muscle strength in the arms and legs. Normal speech. PSYCHIATRIC: Appropriate mood and affect; insight and judgment normal. Data Data Last Documented VS Vital Signs Date Time Temp Pulse Resp B/P (MAP) Pulse Ox O2 Delivery O2 Flow Rate FiO2 12/06/17 12:55 97.6 66 18 94/53 (67) 100 Orders Orders Femur (Ap & Lat/2vws) (12/06/17 13:00) Ice/Cold Pack (12/06/17 13:00) MDM Medical Decision Making Medical Screen Exam Complete: Yes Emergency Medical Condition: Yes Medical Record Reviewed: Yes Differential Diagnosis Fall versus fracture versus inability to ambulate versus knee contusion versus tendinitis versus sprain Narrative Course 77-year-old that presents to the ED for evaluation of fall. Patient was properly examined and was found to have signs and symptoms consistent appears to be mechanical fall. Imaging order. Patient will be signed out to incoming provider pending disposition and plan. Jerry Coreas Dec 06, 2017 13:43
--- NOTE | 2017-12-06 14:24 | RADRPT ---
EXAM DATE/TIME: 12/06/2017 13:15 [facility] COMPARISON: No previous studies available for comparison. INDICATIONS : Left hip pain after falling today. MEDICAL HISTORY : Hypercholesterolemia. Atrial fibrillation. Bladder cancer. Parotid mass. Chemotherapy. Radiation ther apy. SURGICAL HISTORY : Parotid surgery. Bladder surgery. ENCOUNTER: Initial ACUITY: 1 day PAIN SCORE: 10/10 LOCATION: Left hip. FINDINGS: There is intertrochanteric fracture of the left femoral neck without dislocation the femoral head. Th e distal femur appears intact. Bony mineralization is normal. CONCLUSION: Intertrochanteric fracture left hip Wayne Dunbar MD on December 06, 2017 at 14:21 Board Certified Radiologist. This report was verified electronically.
[2017-12-06] MEDS ORDERED: MORPHINE SULFATE 4 MG/ML INJ IV PUSH ONE (14:30)
[2017-12-06] MEDS ORDERED: SODIUM CHLORIDE 0.9% FLUSH 10 ML FLUSH IVF PRN (14:30)
[2017-12-06] MEDS ORDERED: ONDANSETRON HCL 4 MG/2 ML VIAL IVP ONE (14:30)
[2017-12-06] MEDS ORDERED: SODIUM CHLORID 0.9% 500 ML INJ 500 ML IV ONE (14:30)
--- NOTE | 2017-12-06 14:45 | PD ---
Physical Exam Date Seen by Provider: Dec 06, 2017 Time Seen by Provider: 14:42 Narrative The patient is a 77-year-old male who was initially evaluated by the mid-level provider. Please refer to the initial history, physical, diagnostic evaluation , and treatment modality plan. The patient was signed over at 2:40 PM. Data Data Last Documented VS Vital Signs Date Time Temp Pulse Resp B/P (MAP) Pulse Ox O2 Delivery O2 Flow Rate FiO2 12/06/17 16:15 97.8 89 17 131/79 (96) 98 Room Air Orders Orders Femur (Ap & Lat/2vws) (12/06/17 13:00) Ice/Cold Pack (12/06/17 13:00) Electrocardiogram (12/06/17 14:29) Complete Blood Count With Diff (12/06/17 14:29) Comprehensive Metabolic Panel (12/06/17 14:29) Prothrombin Time / Inr (Pt) (12/06/17 14:29) Act Partial Throm Time (Ptt) (12/06/17 14:29) Urinalysis - C+S If Indicated (12/06/17 14:29) Type And Screen (12/06/17 14:29) Chest, Single Ap (12/06/17 14:29) Iv Access Insert/Monitor (12/06/17 14:29) Oximetry (12/06/17 14:29) Ecg Monitoring (12/06/17 14:29) Morphine Inj (Morphine Inj) (12/06/17 14:30) Ondansetron Inj (Zofran Inj) (12/06/17 14:30) Sodium Chloride 0.9% Flush (Ns Flush) (12/06/17 14:30) Sodium Chlorid 0.9% 500 Ml Inj (Ns 500 M (12/06/17 14:30) Ct Brain W/O Iv Contrast(Rout) (12/06/17 ) Admit Order (Ed Use Only) (12/06/17 16:29) Labs Laboratory Tests Test 12/06/17 15:09 White Blood Count 8.1 TH/MM3 Red Blood Count 2.73 MIL/MM3 Hemoglobin 8.2 GM/DL Hematocrit 23.8 % Mean Corpuscular Volume 87.4 FL Mean Corpuscular Hemoglobin 30.1 PG Mean Corpuscular Hemoglobin Concent 34.5 % Red Cell Distribution Width 16.2 % Platelet Count 248 TH/MM3 Mean Platelet Volume 7.9 FL Neutrophils (%) (Auto) 74.8 % Lymphocytes (%) (Auto) 14.3 % Monocytes (%) (Auto) 9.0 % Eosinophils (%) (Auto) 1.4 % Basophils (%) (Auto) 0.5 % Neutrophils # (Auto) 6.1 TH/MM3 Lymphocytes # (Auto) 1.2 TH/MM3 Monocytes # (Auto) 0.7 TH/MM3 Eosinophils # (Auto) 0.1 TH/MM3 Basophils # (Auto) 0.0 TH/MM3 CBC Comment DIFF FINAL Differential Comment Prothrombin Time 30.2 SEC Prothromb Time International Ratio 3.0 RATIO Activated Partial Thromboplast Time 46.5 SEC Blood Urea Nitrogen 39 MG/DL Creatinine 2.69 MG/DL Random Glucose 97 MG/DL Total Protein 6.9 GM/DL Albumin 2.9 GM/DL Calcium Level 8.5 MG/DL Alkaline Phosphatase 103 U/L Aspartate Amino Transf (AST/SGOT) 26 U/L Alanine Aminotransferase (ALT/SGPT) 34 U/L Total Bilirubin 0.3 MG/DL Sodium Level 141 MEQ/L Potassium Level 4.2 MEQ/L Chloride Level 110 MEQ/L Carbon Dioxide Level 22.7 MEQ/L Anion Gap 8 MEQ/L Estimat Glomerular Filtration Rate 23 ML/MIN [facility] Medical Record Reviewed: Yes Supervised Visit with NORBERT: No Interpretation(s) Last Impressions Chest X-Ray 12/06/17 1429 Signed Impressions: Service Date/Time: Wednesday, December 06, 2017 14:36 - CONCLUSION: No acute cardiopulmonary abnormality is identified. Jose Pathak MD Femur X-Ray 12/06/17 1300 Signed Impressions: Service Date/Time: Wednesday, December 06, 2017 13:15 - CONCLUSION: Intertrochanteric fracture left hip Wayne Dunbar MD Head CT 12/06/17 0000 Signed Impressions: Service Date/Time: Wednesday, December 06, 2017 15:39 - CONCLUSION: 1. No acute abnormality is identified. 2. Stable chronic findings include generalized atrophy and stable encephalomalacia in the right frontoparietal region. Jose Pathak MD Laboratory Tests Test 12/06/17 15:09 White Blood Count 8.1 TH/MM3 Red Blood Count 2.73 MIL/MM3 Hemoglobin 8.2 GM/DL Hematocrit 23.8 % Mean Corpuscular Volume 87.4 FL Mean Corpuscular Hemoglobin 30.1 PG Mean Corpuscular Hemoglobin Concent 34.5 % Red Cell Distribution Width 16.2 % Platelet Count 248 TH/MM3 Mean Platelet Volume 7.9 FL Neutrophils (%) (Auto) 74.8 % Lymphocytes (%) (Auto) 14.3 % Monocytes (%) (Auto) 9.0 % Eosinophils (%) (Auto) 1.4 % Basophils (%) (Auto) 0.5 % Neutrophils # (Auto) 6.1 TH/MM3 Lymphocytes # (Auto) 1.2 TH/MM3 Monocytes # (Auto) 0.7 TH/MM3 Eosinophils # (Auto) 0.1 TH/MM3 Basophils # (Auto) 0.0 TH/MM3 CBC Comment DIFF FINAL Differential Comment Prothrombin Time 30.2 SEC Prothromb Time International Ratio 3.0 RATIO Activated Partial Thromboplast Time 46.5 SEC Blood Urea Nitrogen 39 MG/DL Creatinine 2.69 MG/DL Random Glucose 97 MG/DL Total Protein 6.9 GM/DL Albumin 2.9 GM/DL Calcium Level 8.5 MG/DL Alkaline Phosphatase 103 U/L Aspartate Amino Transf (AST/SGOT) 26 U/L Alanine Aminotransferase (ALT/SGPT) 34 U/L Total Bilirubin 0.3 MG/DL Sodium Level 141 MEQ/L Potassium Level 4.2 MEQ/L Chloride Level 110 MEQ/L Carbon Dioxide Level 22.7 MEQ/L Anion Gap 8 MEQ/L Estimat Glomerular Filtration Rate 23 ML/MIN Differential Diagnosis Differential diagnosis includes hip fracture, pelvic fracture, femur fracture, closed head injury, intracranial hemorrhage, mechanical fall. Narrative Course The patient was initially evaluated by the mid-level provider. Please refer to the initial history, physical, diagnostic evaluation, treatment modality plan. I reassess the patient at 2:30 PM on the ambulance all, the patient did have some pain in her left hip that radiates to the left mid femur. He had positive distal pulses and was neurovascularly intact. The patient was just discharged from rehab after multiple falls and all prolonged hospitalization. The patient was walking up the stairs earlier today, upon arriving home, when he fell backwards. He denies any loss of consciousness or trauma to the head. The patient was administered morphine, Zofran, and IV fluids. Chest x-ray and EKG were ordered and interpreted. Type and screen were sent to lab. The on-call hospitalist service was paged for admission. Physician Communication Physician Communication [facility] hospitalist were paged for admission. I discussed the patient with Dr. Bay who agrees with admission. Diagnosis Primary Impression: Intertrochanteric fracture of left hip Qualified Codes: S72.145A - Nondisplaced intertrochanteric fracture of left femur, initial encounter for closed fracture Additional Impression: Anemia Qualified Codes: D64.9 - Anemia, unspecified Admitting Information Admitting Physician Requests: Admit Condition: Stable Say Mcnamara MD Dec 06, 2017 14:45
[2017-12-06] MEDS ORDERED: WARF-18 PO (14:53)
[2017-12-06 15:00] VITALS: RESP 17; O2SAT 100
--- NOTE | 2017-12-06 15:12 | RADRPT ---
EXAM DATE/TIME: 12/06/2017 14:36 [facility] COMPARISON: CHEST SINGLE AP, October 17, 2017, 15:36. INDICATIONS : Evaluate for pneumonia, pneumothorax, and communicable disease. Left hip fracture. MEDICAL HISTORY : Hypercholesterolemia. Carcinoma, bladder. Atrial fibrilation. SURGICAL HISTORY : Parotid surgery. Bladder surgery. ENCOUNTER: Initial ACUITY: 1 day PAIN SCORE: 8/10 LOCATION: Left hip FINDINGS: AP views of the chest demonstrate a normal-sized cardiac silhouette. No effusion, consolidation, or p neumothorax is identified. The bones and soft tissues demonstrate no acute abnormality. CONCLUSION: No acute cardiopulmonary abnormality is identified. Jose Pathak MD on December 06, 2017 at 15:08 Board Certified Radiologist. This report was verified electronically.
[2017-12-06 15:31] LABS: AUTOMATED NEUTROPHIL # 6.1 TH/MM3 (1.8-7.7); BASOPHIL % 0.5 % (0.0-2.0); EOSINOPHIL # 0.1 TH/MM3 (0-0.4); EOSINOPHIL % 1.4 % (0.0-4.0); HEMATOCRIT 23.8 % (39.0-51.0); HEMOGLOBIN 8.2 GM/DL (13.0-17.0); LYMPH % 14.3 % (9.0-44.0); LYMPHOCYTE # 1.2 TH/MM3 (1.0-4.8); MEAN CELL VOLUME 87.4 FL (80.0-100.0); MEAN CORPUSCULAR HEMOGLOBIN 30.1 PG (27.0-34.0); MEAN CORPUSCULAR HGB CONC 34.5 % (32.0-36.0); MEAN PLATELET VOLUME 7.9 FL (7.0-11.0); MONOCYTE # 0.7 TH/MM3 (0-0.9); NEUT % 74.8 % (16.0-70.0); PLATELET COUNT 248 TH/MM3 (150-450); RED BLOOD COUNT 2.73 MIL/MM3 (4.50-5.90); RED CELL DISTRIBUTION WIDTH 16.2 % (11.6-17.2); WHITE BLOOD COUNT 8.1 TH/MM3 (4.0-11.0)
[2017-12-06 16:01] LABS: PROTHROMBIN TIME - PATIENT 30.2 SEC (9.8-11.6)
--- NOTE | 2017-12-06 16:08 | RADRPT ---
EXAM DATE/TIME: 12/06/2017 15:39 [facility] COMPARISON: CT BRAIN W/O CONTRAST, August 16, 2017, 12:18. INDICATIONS : Fall, today. RADIATION DOSE: 35.53 CTDIvol (mGy) MEDICAL HISTORY : Cardiovascular disease. Carcinoma, bladder. Neck mass. SURGICAL HISTORY : None. ENCOUNTER: Initial ACUITY: 1 day PAIN SCALE: 3/10 LOCATION: cranial TECHNIQUE: Multiple contiguous axial images were obtained of the head. Using automated exposure control and adj ustment of the mA and/or kV according to patient size, radiation dose was kept as low as reasonably a chievable to obtain optimal diagnostic quality images. DICOM format image data is available electro nically for review and comparison. FINDINGS: CEREBRUM: There is mild generalized atrophy. Ventricles are normal in size given the degree of atrophy present. There is stable encephalomalacia in the right frontoparietal mid convexity. Mild periventricular whi te matter low-attenuation is present. No evidence of midline shift, mass lesion, hemorrhage or acute infarction. No extra-axial fluid collections are seen. POSTERIOR FOSSA: The cerebellum and brainstem demonstrate no acute finding. The 4th ventricle is midline. The cerebe llopontine angle is unremarkable. EXTRACRANIAL: Sinuses demonstrate no acute abnormality. SKULL: The calvaria is intact. No evidence of skull fracture. CONCLUSION: 1. No acute abnormality is identified. 2. Stable chronic findings include generalized atrophy and stable encephalomalacia in the right front oparietal region. Jose Pathak MD on December 06, 2017 at 16:01 Board Certified Radiologist. This report was verified electronically.
[2017-12-06 16:10] LABS: ALBUMIN 2.9 GM/DL (3.4-5.0); ALT (GPT) 34 U/L (12-78); AST (GOT) 26 U/L (15-37); BICARBONATE 22.7 MEQ/L (21.0-32.0); BLOOD UREA NITROGEN 39 MG/DL (7-18); CALCIUM 8.5 MG/DL (8.5-10.1); CHLORIDE 110 MEQ/L (98-107); CREATININE 2.69 MG/DL (0.60-1.30); GLOMERULAR FILTRATION RATE 23 ML/MIN (>89); GLUCOSE,RANDOM 97 MG/DL (74-106); SODIUM (NA) 141 MEQ/L (136-145)
[2017-12-06 16:11] LABS: ALKALINE PHOSPHATASE 103 U/L (45-117); TOTAL BILIRUBIN ADULT 0.3 MG/DL (0.2-1.0); TOTAL PROTEIN 6.9 GM/DL (6.4-8.2)
[2017-12-06 16:15] VITALS: BP 131/79; PULSE 89; RESP 17; TEMP 97.8; O2SAT 98
--- NOTE | 2017-12-06 16:57 | HHI.HP ---
[facility] Ad[facility] Diagnosis Left intertrochanteric hip fracture, CKD Diagnoses: (1) Intertrochanteric fracture of left hip (2) Supratherapeutic INR (3) CKD (chronic kidney disease), stage III Chief Complaint: Left hip pain Travel History International Travel<30 Days: No Contact w/Intl Traveler <30 Da: No Traveled to Known Affected Are: No History of Present Illness 77 year-old male with known history of atrial fibrillation, hyperlipidemia, history of liver cancer, history of parotid cancer was brought to the ED for evaluation of left hip pain following a mechanical fall. Patient was just released from a rehab facility where he had spent over 4 weeks, and states as he was putting his left foot on the first step, he had twisted his left foot and lost his balance and fell backward landing on his left foot as well as left elbow. he denies any head trauma, however immediately felt significant pain to the left foot which he rated 6/10 in intensity. There was no loss of consciousness. Femur x-ray in the ED revealed left hip fracture. INR slightly elevated to 3.0 and patient was found to have labile BUN/ creatinine. He denies any chest pain or shortness of breath Review of Systems Except as stated in HPI: all other systems reviewed are Neg Past Family Social History Past Medical History Atrial fibrillation Hyperlipidemia Chronic kidney disease stage IV History of bladder cancer History of parotid gland cancer Past Surgical History Ileostomy Parotid surgery Reported Medications Coumadin (Warfarin) 1 Mg Tab 2 Mg PO DAILY Acidophilus/l-Sporogenes (Lactobacillus Acidophilus) 35 Million Cell-25 Million Cell Tab 1 Tab PO TID 10 Days Vancomycin Inj (Vancomycin HCl) 500 Mg Inj 125 Mg PO QID 10 Days Reported Pilocarpine 5 Mg Tab 5 Mg PO Q6HR Mucus Relief ER (Guaifenesin) 600 Mg Tab 600 Mg PO BID PRN Atorvastatin (Atorvastatin Calcium) 20 Mg Tab 20 Mg PO HS Allergies: Coded Allergies: crab (Verified Allergy, Intermediate, Rash, 10/31/17) Blue Shell crab causes severe rash all over face and neck. Needs PCN to help clear it up. Patient CAN eat Shrimp and clams, scallops, oysters without problems. Family History Reviewed is significant for father having heart disease Social History Alcohol Use: No Tobacco Use: No Substance Use: No Physical Exam Vital Signs Vital Signs Date Time Temp Pulse Resp B/P (MAP) Pulse Ox O2 Delivery O2 Flow Rate FiO2 12/06/17 16:15 97.8 89 17 131/79 (96) 98 Room Air 12/06/17 15:07 17 12/06/17 15:00 89 17 98 Room Air 12/06/17 15:00 17 100 Room Air 12/06/17 12:55 97.6 66 18 94/53 (67) 100 Physical Exam GENERAL: This is a well-nourished, well-developed patient, in no apparent distress. SKIN: No rashes, ecchymoses or lesions. Cool and dry. HEAD: Atraumatic. Normocephalic. No temporal or scalp tenderness. EYES: Pupils equal round and reactive. Extraocular motions intact. No scleral icterus. No injection or drainage. ENT: Nose without bleeding, purulent drainage or septal hematoma. Throat without erythema, tonsillar hypertrophy or exudate. Uvula midline. Airway patent. NECK: Trachea midline. No JVD or lymphadenopathy. Supple, nontender, no meningeal signs. CARDIOVASCULAR: Irregular regular rate and rhythm without murmurs, gallops, or rubs. RESPIRATORY: Clear to auscultation. Breath sounds equal bilaterally. No wheezes , rales, or rhonchi. GASTROINTESTINAL: Abdomen soft, non-tender, nondistended. No hepato-splenomegaly , or palpable masses. No guarding. MUSCULOSKELETAL: Left hip internally rotated with limited ROM and TTP. RLE exam wnl NEUROLOGICAL: Awake and alert. Cranial nerves II through XII intact. Motor and sensory grossly within normal limits. Five out of 5 muscle strength in all muscle groups. Normal speech. Laboratory Laboratory Tests Test 12/06/17 15:09 White Blood Count 8.1 Red Blood Count 2.73 Hemoglobin 8.2 Hematocrit 23.8 Mean Corpuscular Volume 87.4 Mean Corpuscular Hemoglobin 30.1 Mean Corpuscular Hemoglobin Concent 34.5 Red Cell Distribution Width 16.2 Platelet Count 248 Mean Platelet Volume 7.9 Neutrophils (%) (Auto) 74.8 Lymphocytes (%) (Auto) 14.3 Monocytes (%) (Auto) 9.0 Eosinophils (%) (Auto) 1.4 Basophils (%) (Auto) 0.5 Neutrophils # (Auto) 6.1 Lymphocytes # (Auto) 1.2 Monocytes # (Auto) 0.7 Eosinophils # (Auto) 0.1 Basophils # (Auto) 0.0 CBC Comment DIFF FINAL Differential Comment Prothrombin Time 30.2 Prothromb Time International Ratio 3.0 Activated Partial Thromboplast Time 46.5 Blood Urea Nitrogen 39 Creatinine 2.69 Random Glucose 97 Total Protein 6.9 Albumin 2.9 Calcium Level 8.5 Alkaline Phosphatase 103 Aspartate Amino Transf (AST/SGOT) 26 Alanine Aminotransferase (ALT/SGPT) 34 Total Bilirubin 0.3 Sodium Level 141 Potassium Level 4.2 Chloride Level 110 Carbon Dioxide Level 22.7 Anion Gap 8 Estimat Glomerular Filtration Rate 23 Result Diagram: 12/06/17 1509 12/06/17 1509 Imaging Last Impressions Chest X-Ray 12/06/17 1429 Signed Impressions: Service Date/Time: Wednesday, December 06, 2017 14:36 - CONCLUSION: No acute cardiopulmonary abnormality is identified. Jose Pathak MD Femur X-Ray 12/06/17 1300 Signed Impressions: Service Date/Time: Wednesday, December 06, 2017 13:15 - CONCLUSION: Intertrochanteric fracture left hip Wayne Dunbar MD Head CT 12/06/17 0000 Signed Impressions: Service Date/Time: Wednesday, December 06, 2017 15:39 - CONCLUSION: 1. No acute abnormality is identified. 2. Stable chronic findings include generalized atrophy and stable encephalomalacia in the right frontoparietal region. Jose Pathak MD Septic Shock Reassessment Septic shock perfusion: reassessment completed Caprini VTE Risk Assessment Caprini VTE Risk Assessment: Mod/High Risk (score >= 2) VTE Pharm Contraindication: Coagulopathy,INR elevated Caprini Risk Assessment Model Point Value = 1 Point Value = 2 Point Value = 3 Point Value = 5 Age 41-60 Minor surgery BMI > 25 kg/m2 Swollen legs Varicose veins or History of unexplained or recurrent spontaneous Oral contraceptives or hormone replacement Sepsis (< 1 month) Serious lung disease, including pneumonia (< 1 month) Abnormal pulmonary function Acute myocardial infarction Congestive heart failure (< 1 month) History of inflammatory bowel disease Medical patient at bed rest Age 61-74 Arthroscopic surgery Major open surgery (> 45 min) Laparoscopic surgery (> 45 min) Malignancy Confined to bed (> 72 hours) Immobilizing plaster cast Central venous access Age >= 75 History of VTE Family history of VTE Factor V Leiden Prothrombin [id number] Lupus anticoagulant Anticardiolipin antibodies Elevated serum homocysteine Heparin-induced thrombocytopenia Other congenital or acquired thrombophilia Stroke (< 1 month) Elective arthroplasty Hip, pelvis, or leg fracture Acute spinal cord injury (< 1 month) Prophylaxis Regimen Total Risk Factor Score Risk Level Prophylaxis Regimen 0-1 Low Early ambulation 2 Moderate Order ONE of the following: *Sequential Compression Device (SCD) *Heparin 5000 units SQ BID 3-4 Higher Order ONE of the following medications: *Heparin 5000 units SQ TID *Enoxaparin/Lovenox 40 mg SQ daily (WT < 150 kg, CrCl > 30 mL/min) *Enoxaparin/Lovenox 30 mg SQ daily (WT < 150 kg, CrCl > 10-29 mL/min) *Enoxaparin/Lovenox 30 mg SQ BID (WT < 150 kg, CrCl > 30 mL/min) AND/OR *Sequential Compression Device (SCD) 5 or more Highest Order ONE of the following medications: *Heparin 5000 units SQ TID (Preferred with Epidurals) *Enoxaparin/Lovenox 40 mg SQ daily (WT < 150 kg, CrCl > 30 mL/min) *Enoxaparin/Lovenox 30 mg SQ daily (WT < 150 kg, CrCl > 10-29 mL/min) *Enoxaparin/Lovenox 30 mg SQ BID (WT < 150 kg, CrCl > 30 mL/min) AND *Sequential Compression Device (SCD) Assessment and Plan Problem List: (1) Intertrochanteric fracture of left hip ICD Code: S72.142A - Displaced intertrochanteric fracture of left femur, initial encounter for closed fracture Status: Acute (2) Supratherapeutic INR ICD Code: R79.1 - Abnormal coagulation profile Status: Resolved (3) CKD (chronic kidney disease), stage III ICD Code: N18.3 - Chronic kidney disease, stage 3 (moderate) Status: Chronic Assessment and Plan 77 year-old man with Intertrochanteric fracture of left hip Status post mechanical fall Femur x-ray noted and review by me with finding of intertrochanteric fracture of left hip Will consult surgery, however secondary to supra therapeutic INR will hold nothing by mouth order for tonight Pain management accordingly Supra therapeutic INR Will give low-dose vitamin K 2.5 mg 1 now Hold Coumadin and monitor INR/PT CKD stage III Monitor Bun/Cr Nephrology consultation PRN Proximal A. fib Due to supra therapeutic INR, will hold Coumadin as well Telemetry monitoring Code Status Full code Discussed Condition With Patient, ED physician Physician Certification 2 Midnight Certification Type: Admission for Inpatient Services Order for Inpatient Services The services are ordered in accordance with Medicare regulations or non- Medicare payer requirements, as applicable. In the case of services not specified as inpatient-only, they are appropriately provided as inpatient services in accordance with the 2-midnight benchmark. Estimated LOS (days): 2 days is the estimated time the patient will need to remain in the hospital, assuming treatment plan goals are met and no additional complications. Post-Hospital Plan: Not yet determined Problem Qualifiers (1) Intertrochanteric fracture of left hip: Qualified Codes: S72.145A - Nondisplaced intertrochanteric fracture of left femur, initial encounter for closed fracture Kervin Bay MD Dec 06, 2017 16:57
[2017-12-06] MEDS ORDERED: MAGNESIUM HYDROXIDE SUSP 30 ML CUP PO PRN (17:00)
[2017-12-06] MEDS ORDERED: SODIUM CHLORIDE 0.9% FLUSH 10 ML FLUSH IV FLUSH PRN (17:00)
[2017-12-06] MEDS ORDERED: NALOXONE HCL 0.4 MG/ML AMP IV PUSH PRN (17:00)
[2017-12-06] MEDS ORDERED: ONDANSETRON HCL 4 MG/2 ML VIAL IVP PRN (17:00)
[2017-12-06] MEDS ORDERED: ACETAMINOPHEN/HYDROcodone 325 MG/5 MG TAB PO PRN (17:00)
[2017-12-06] MEDS ORDERED: ACETAMINOPHEN 325 MG TAB PO PRN ×2 (17:00)
[2017-12-06 18:00] VITALS: BP 124/81; PULSE 88; RESP 17; TEMP 97.8; O2SAT 99
[2017-12-06] MEDS ORDERED: PHYTONADIONE 5 MG/SWFI 5 ML ORAL SYR PO ONE (18:00)
[2017-12-06] MEDS: SODIUM CHLOR 0.9% 1000 ML INJ 1,000 ML IV SCH (18:01)
[2017-12-06 19:33] VITALS: BP 129/75; PULSE 101; RESP 18; O2SAT 98
[2017-12-06] MEDS: ACETAMINOPHEN/HYDROcodone 325 MG/7.5 MG TAB PO PRN (22:40)
[2017-12-06] MEDS: SODIUM CHLORIDE 0.9% FLUSH 10 ML FLUSH IV FLUSH SCH (22:41)
[2017-12-06 23:30] VITALS: BP 114/76; PULSE 114; RESP 20; TEMP 97.9; O2SAT 95
[2017-12-07] MEDS: ACETAMINOPHEN/HYDROcodone 325 MG/7.5 MG TAB PO PRN ×2 (05:00→20:07)
--- NOTE | 2017-12-07 07:13 | PD.ORT.PN ---
Subjective Subjective Remarks s/p fall at home left hip pain. reports recently admitted to hospital for kidney issues. takes coumadin at home Objective Vitals Vital Signs Date Time Temp Pulse Resp B/P (MAP) Pulse Ox O2 Delivery O2 Flow Rate FiO2 12/06/17 23:30 97.9 114 20 114/76 (89) 95 12/06/17 19:33 101 18 129/75 (93) 98 Room Air 12/06/17 19:33 98 Room Air 12/06/17 19:11 17 12/06/17 18:00 97.8 88 17 124/81 (95) 99 Room Air 12/06/17 16:15 97.8 89 17 131/79 (96) 98 Room Air 12/06/17 15:07 17 12/06/17 15:00 89 17 98 Room Air 12/06/17 15:00 17 100 Room Air 12/06/17 12:55 97.6 66 18 94/53 (67) 100 I/O 12/06/17 12/06/17 12/06/17 12/07/17 12/07/17 12/07/17 07:00 15:00 23:00 07:00 15:00 23:00 Intake Total 500 ml Balance 500 ml Intake IV Total 500 ml # Voids 0 # Bowel Movements 0 Result Diagram: 12/06/17 1509 12/06/17 1509 Other Results Laboratory Tests Test 12/06/17 15:09 Prothromb Time International Ratio 3.0 RATIO Prothrombin Time 30.2 SEC (9.8-11.6) Imaging Last 24 hours Impressions Chest X-Ray 12/06/17 1429 Signed Impressions: Service Date/Time: Wednesday, December 06, 2017 14:36 - CONCLUSION: No acute cardiopulmonary abnormality is identified. Jose Pathak MD Femur X-Ray 12/06/17 1300 Signed Impressions: Service Date/Time: Wednesday, December 06, 2017 13:15 - CONCLUSION: Intertrochanteric fracture left hip Wayne Dubnar MD Objective Remarks LLE; pain wtih motion. nvi distally Assessment & Plan Assessment and Plan 1) Left Intertroch Hip Fx -NWB -regular diet today -npo after MN -INR 3.0; too high for surgery -10mg Vit K IV -1 unit FFP -recheck INR this evening -plan for surgeyr tomorrow AM with Brian Padilla PA/Sightseeing Guide PA Dec 07, 2017 07:13
[2017-12-07] MEDS ORDERED: PHYTONADIONE 10 MG/ML VIAL IV ONE (07:15)
[2017-12-07] MEDS ORDERED: SODIUM CHLOR 0.9% 250 ML INJ 250 ML IV ONE (07:15)
[2017-12-07 08:00] VITALS: BP 115/66; PULSE 113; RESP 16; TEMP 97.4; O2SAT 99
[2017-12-07] MEDS: SODIUM CHLORIDE 0.9% FLUSH 10 ML FLUSH IV FLUSH SCH ×2 (09:00→20:11)
[2017-12-07 10:46] LABS: AUTOMATED NEUTROPHIL # 6.2 TH/MM3 (1.8-7.7); BASOPHIL % 0.4 % (0.0-2.0); EOSINOPHIL % 0.5 % (0.0-4.0); HEMOGLOBIN 8.1 GM/DL (13.0-17.0); LYMPH % 11.8 % (9.0-44.0); MEAN CELL VOLUME 89.3 FL (80.0-100.0); MEAN CORPUSCULAR HEMOGLOBIN 28.8 PG (27.0-34.0); MEAN CORPUSCULAR HGB CONC 32.3 % (32.0-36.0); MEAN PLATELET VOLUME 7.8 FL (7.0-11.0); MONO % 11.3 % (0.0-8.0); MONOCYTE # 0.9 TH/MM3 (0-0.9); PLATELET COUNT 235 TH/MM3 (150-450); RED CELL DISTRIBUTION WIDTH 16.4 % (11.6-17.2); WHITE BLOOD COUNT 8.2 TH/MM3 (4.0-11.0)
[2017-12-07 10:48] LABS: INTERNATIONAL NORMALIZED RATIO 1.9 RATIO
[2017-12-07 11:09] LABS: ALBUMIN 2.7 GM/DL (3.4-5.0); ALT (GPT) 30 U/L (12-78); AST (GOT) 23 U/L (15-37); BLOOD UREA NITROGEN 38 MG/DL (7-18); CALCIUM 8.4 MG/DL (8.5-10.1); CHLORIDE 115 MEQ/L (98-107); CREATININE 2.47 MG/DL (0.60-1.30); GLOMERULAR FILTRATION RATE 25 ML/MIN (>89); GLUCOSE,RANDOM 112 MG/DL (74-106); SODIUM (NA) 142 MEQ/L (136-145)
[2017-12-07 11:14] LABS: ALKALINE PHOSPHATASE 98 U/L (45-117); TOTAL BILIRUBIN ADULT 0.4 MG/DL (0.2-1.0); TOTAL PROTEIN 6.7 GM/DL (6.4-8.2)
[2017-12-07 12:00] VITALS: BP 109/80; PULSE 108; RESP 16; TEMP 97.2; O2SAT 97
[2017-12-07 16:00] VITALS: BP 119/59; PULSE 95; RESP 17; TEMP 97.2; O2SAT 98
[2017-12-07 17:41] LABS: INTERNATIONAL NORMALIZED RATIO 1.5 RATIO; PROTHROMBIN TIME - PATIENT 15.6 SEC (9.8-11.6)
[2017-12-07] MEDS: SODIUM CHLOR 0.9% 1000 ML INJ 1,000 ML IV SCH (18:12)
[2017-12-07 20:00] VITALS: BP 117/82; PULSE 72; RESP 18; TEMP 97.8; O2SAT 99
--- NOTE | 2017-12-07 21:36 | EKG ---
Date Performed: 12/06/2017 Time Performed: 15:15:18 PTAGE: 77 years EKG: ATRIAL FIBRILLATION ABNORMAL RHYTHM ECG PREVIOUS TRACING : 10/17/2017 15.12 Since the previous tracing, no significant change noted DOCTOR: Eleazar Win Interpretating Date/Time 12/07/2017 21:34:31
--- NOTE | 2017-12-07 22:44 | HHI.PR ---
Subjective Remarks NOT SEEN Objective Vitals Vital Signs Date Time Temp Pulse Resp B/P (MAP) Pulse Ox O2 Delivery O2 Flow Rate FiO2 12/07/17 20:00 97.8 72 18 117/82 (94) 99 12/07/17 16:00 97.2 95 17 119/59 (79) 98 12/07/17 12:00 97.2 108 16 109/80 (90) 97 12/07/17 08:00 97.4 113 16 115/66 (82) 99 12/06/17 23:30 97.9 114 20 114/76 (89) 95 I/O 12/06/17 12/06/17 12/06/17 12/07/17 12/07/17 12/07/17 07:00 15:00 23:00 07:00 15:00 23:00 Intake Total 500 ml 120 ml 500 ml Output Total 925 ml 800 ml Balance 500 ml -805 ml -300 ml Intake Oral 120 ml 500 ml IV Total 500 ml Output Urine Total 925 ml 800 ml # Voids 0 # Bowel Movements 0 0 0 Result Diagram: 12/07/17 1013 12/07/17 1001 Imaging Last Impressions Chest X-Ray 12/06/17 1429 Signed Impressions: Service Date/Time: Wednesday, December 06, 2017 14:36 - CONCLUSION: No acute cardiopulmonary abnormality is identified. Jose Pathak MD Femur X-Ray 12/06/17 1300 Signed Impressions: Service Date/Time: Wednesday, December 06, 2017 13:15 - CONCLUSION: Intertrochanteric fracture left hip Wayne Dunbar MD Head CT 12/06/17 0000 Signed Impressions: Service Date/Time: Wednesday, December 06, 2017 15:39 - CONCLUSION: 1. No acute abnormality is identified. 2. Stable chronic findings include generalized atrophy and stable encephalomalacia in the right frontoparietal region. Jose Pathak MD Objective Remarks GENERAL: This is a well-nourished, well-developed patient, in no apparent distress. SKIN: No rashes, ecchymoses or lesions. Cool and dry. HEAD: Atraumatic. Normocephalic. No temporal or scalp tenderness. EYES: Pupils equal round and reactive. Extraocular motions intact. No scleral icterus. No injection or drainage. ENT: Nose without bleeding, purulent drainage or septal hematoma. Throat without erythema, tonsillar hypertrophy or exudate. Uvula midline. Airway patent. NECK: Trachea midline. No JVD or lymphadenopathy. Supple, nontender, no meningeal signs. CARDIOVASCULAR: Irregular regular rate and rhythm without murmurs, gallops, or rubs. RESPIRATORY: Clear to auscultation. Breath sounds equal bilaterally. No wheezes , rales, or rhonchi. GASTROINTESTINAL: Abdomen soft, non-tender, nondistended. No guarding. MUSCULOSKELETAL: Left hip internally rotated with limited ROM and TTP. RLE exam wnl NEUROLOGICAL: Awake and alert. Cranial nerves II through XII intact. Motor and sensory grossly within normal limits. Five out of 5 muscle strength in all muscle groups. Normal speech. A/P Problem List: (1) Intertrochanteric fracture of left hip ICD Code: S72.142A - Displaced intertrochanteric fracture of left femur, initial encounter for closed fracture Status: Acute (2) Supratherapeutic INR ICD Code: R79.1 - Abnormal coagulation profile Status: Resolved (3) CKD (chronic kidney disease), stage III ICD Code: N18.3 - Chronic kidney disease, stage 3 (moderate) Status: Chronic Assessment and Plan 77 year-old man with Intertrochanteric fracture of left hip Status post mechanical fall Femur x-ray noted and review by me with finding of intertrochanteric fracture of left hip Will consult ortho surgery, however secondary to supra therapeutic INR will hold nothing by mouth order for tonight Pain management accordingly Supra therapeutic INR Will give low-dose vitamin K 2.5 mg 1 now Hold Coumadin and monitor INR/PT CKD stage III Monitor Bun/Cr Nephrology consultation PRN Proximal A. fib Due to supra therapeutic INR, will hold Coumadin as well Telemetry monitoring Problem Qualifiers (1) Intertrochanteric fracture of left hip: Qualified Codes: S72.145A - Nondisplaced intertrochanteric fracture of left femur, initial encounter for closed fracture Waqar López MD Dec 07, 2017 22:44
--- NOTE | 2017-12-07 23:28 | HHI.PR ---
Subjective Remarks Follow up for fall and Intertrochanteric fracture of left hip pain. Patient is currently doing well. However, he complains of left hip pain on movements. Likely surgery in the AM. INR 3.0 --> 1.9 --> 1.5. Objective Vitals Vital Signs Date Time Temp Pulse Resp B/P (MAP) Pulse Ox O2 Delivery O2 Flow Rate FiO2 12/07/17 20:00 97.8 72 18 117/82 (94) 99 12/07/17 16:00 97.2 95 17 119/59 (79) 98 12/07/17 12:00 97.2 108 16 109/80 (90) 97 12/07/17 08:00 97.4 113 16 115/66 (82) 99 12/06/17 23:30 97.9 114 20 114/76 (89) 95 I/O 12/07/17 12/07/17 12/07/17 12/08/17 12/08/17 12/08/17 07:00 15:00 23:00 07:00 15:00 23:00 Intake Total 120 ml 500 ml Output Total 925 ml 800 ml Balance -805 ml -300 ml Intake Oral 120 ml 500 ml Output Urine Total 925 ml 800 ml # Bowel Movements 0 0 Result Diagram: 12/07/17 1013 12/07/17 1001 Imaging Last Impressions Chest X-Ray 12/06/17 1429 Signed Impressions: Service Date/Time: Wednesday, December 06, 2017 14:36 - CONCLUSION: No acute cardiopulmonary abnormality is identified. Jose Pathak MD Femur X-Ray 12/06/17 1300 Signed Impressions: Service Date/Time: Wednesday, December 06, 2017 13:15 - CONCLUSION: Intertrochanteric fracture left hip Wayne Dunbar MD Head CT 12/06/17 0000 Signed Impressions: Service Date/Time: Wednesday, December 06, 2017 15:39 - CONCLUSION: 1. No acute abnormality is identified. 2. Stable chronic findings include generalized atrophy and stable encephalomalacia in the right frontoparietal region. Jose Pathak MD Objective Remarks GENERAL: AOX3 NAD. SKIN: Warm and dry. HEAD: Normocephalic. EYES: No scleral icterus. No injection or drainage. NECK: Supple, trachea midline. No JVD or lymphadenopathy. CARDIOVASCULAR: Regular rate and rhythm without murmurs, gallops, or rubs. RESPIRATORY: Breath sounds equal bilaterally. No accessory muscle use. GASTROINTESTINAL: Abdomen soft, non-tender, nondistended. MUSCULOSKELETAL: No cyanosis, or edema. Significant hip pain on left leg movement. BACK: Nontender without obvious deformity. No CVA tenderness. Procedures None. A/P Problem List: (1) Intertrochanteric fracture of left hip ICD Code: S72.142A - Displaced intertrochanteric fracture of left femur, initial encounter for closed fracture Status: Acute (2) Supratherapeutic INR ICD Code: R79.1 - Abnormal coagulation profile Status: Resolved (3) CKD (chronic kidney disease), stage III ICD Code: N18.3 - Chronic kidney disease, stage 3 (moderate) Status: Chronic Assessment and Plan 77 year-old man with Intertrochanteric fracture of left hip Status post mechanical fall Femur x-ray --> intertrochanteric fracture of left hip Surgery tomorrow AM. Supra therapeutic INR Patient received vitamin K 2.5mg once. Repeat INR this morning 3.0 --> 1.9. Patient did not need any FFP or SQ vitamin K. INR is 1.5 this afternoon. CKD stage III Monitor Bun/Cr Nephrology consultation PRN Proximal A. fib Due to supra therapeutic INR, will hold Coumadin as well Telemetry monitoring Full code. Discussed with RN. Problem Qualifiers (1) Intertrochanteric fracture of left hip: Qualified Codes: S72.145A - Nondisplaced intertrochanteric fracture of left femur, initial encounter for closed fracture Franki Smith DO Dec 07, 2017 23:28
[2017-12-08] VITALS: BP 114/80; PULSE 76; RESP 18; TEMP 97.8; O2SAT 100
[2017-12-08] MEDS ORDERED: CHLORHEXIDINE GLUCONATE 2 % 1 PACK (2 CLOTHS) TOPICAL PRN (00:30)
[2017-12-08] MEDS ORDERED: SODIUM CHLORID 0.9% 500 ML IV PRN (00:30)
[2017-12-08] MEDS ORDERED: POVIDONE IODINE 5% (ANTISEPSIS KIT) 4 APPLICATIONS EACH NARE PRN (00:30)
[2017-12-08] MEDS ORDERED: LACTATED RINGER'S 1000 ML IV PRN (00:30)
[2017-12-08] MEDS: PILOCARPINE HCL 5 MG TAB PO SCH ×4 (01:02→17:30)
[2017-12-08] MEDS: ACETAMINOPHEN/HYDROcodone 325 MG/7.5 MG TAB PO PRN ×2 (01:02→21:18)
[2017-12-08] MEDS ORDERED: ceFAZolin INJ 1,000 MG VIAL ONE (07:42)
[2017-12-08] MEDS ORDERED: BUPIVACAINE/EPINEPHRINE 0.25% 50 ML VIAL ONE (07:42)
[2017-12-08] MEDS ORDERED: GENTAMICIN SULFATE 80 MG/2 ML VIAL ONE (07:42)
[2017-12-08] MEDS ORDERED: VANCOMYCIN HCL 1000 MG VIAL ONE (07:42)
[2017-12-08] MEDS: SODIUM CHLORIDE 0.9% FLUSH 10 ML FLUSH IV FLUSH SCH ×2 (07:46→21:22)
[2017-12-08 08:00] VITALS: BP 98/68; PULSE 128; RESP 16; TEMP 97.7; O2SAT 98
[2017-12-08] MEDS ORDERED: fentaNYL CITRATE 250 MCG/5 ML AMP ONE (08:00)
[2017-12-08] MEDS ORDERED: MORPHINE SULFATE 4 MG/ML INJ IV PUSH PRN (09:15)
[2017-12-08] MEDS ORDERED: diphenhydrAMINE HCL 25 MG CAP PO PRN (09:15)
[2017-12-08] MEDS ORDERED: ERGOCALCIFEROL (VIT D2) 50,000 UNIT CAP PO ONE (09:15)
--- NOTE | 2017-12-08 09:17 | PD.OP ---
cc: Chad Chatman MD Operative Report Date of Surgery: Dec 08, 2017 Preoperative Diagnosis: Left hip intertrochanteric fracture Postoperative Diagnosis: Procedure: Left hip reduction and intramedullary nail fixation Surgeon: Chad Chatman Audio Visual Specialist(s): TEAGAN Gutierres PA-C The surgical procedure was assisted by my physician assistant food service manager. My P.A. presence was necessary throughout this case for the manipulation and positioning of the surgical extremity. My P.A. was assisting me throughout the duration of this procedure. The skill set of a physician assistant food service manager was medically necessary to complete this procedure. During the surgical case the surgical resident was working at the back table and the physician assistant food service manager was directly assisting me. Operation and Findings: Implants used: Biomet 13 mm short troch nail Plan of activity: Weight-bear as tolerated Patient was seen and evaluated preoperatively. The patient has significant hip pain from intertrochanteric hip fracture. The risk and benefits of surgery were discussed in depth with the patient to include bleeding infection nonunion malunion and need for hip replacement painful hardware as well as medical competitions including but not stroke heart attack and . Informed consent was obtained. Operative site was marked. Patient was brought to the operating room and placed on fracture table. IV sedation was administered by anesthesiologist. Timeout procedure was performed. Hip and leg were prepped with alcohol followed by DuraPrep and draped in the usual sterile fashion. IV antibiotics were given prior to incision. Procedure began with reduction of fracture. Traction was applied. The leg was manipulated to achieve reduction. Excellent reduction was achieved. Fluoroscopy was used to confirm reduction. A three inch incision was made proximal to the trochanter. Subcutaneous tissue was dissected bluntly. Guidepin was placed at the tip of the trochanter and advanced into the femoral canal. Fluoroscopy confirmed appropriate guidepin placement. A opening reamer was placed over the guidepin. The Biomet 13 mm nail was attached to the insertion handle. Nail was now placed through the tip of the trochanter into the femoral canal. Fluoroscopy confirmed appropriate nail placement. A second incision was made over the lateral thigh. Cannulas were placed through the insertion handle down to the femur. Guidepin was now placed through the femoral nail into the center of the femoral head. Fluoroscopy confirmed appropriate guidepin placement. Screw length was measured. Cannulated drill was placed over the guidepin. Appropriate length lag screw was now placed. Traction was released and compression was applied. The set screw was now tightened in dynamic mode. Using the insertion handle as a guide a distal interlocking screw was drilled and placed. Final fluoroscopy revealed well aligned fracture with well-placed hardware. Incision was closed with 3-0 Vicryl and gustavo. Sterile dressings were applied. Patient was awakened and transferred to recovery room. Chad Chatman MD Dec 08, 2017 09:17
--- NOTE | 2017-12-08 09:40 | MB ---
cc: Chad Vallejo MD DATE: 12/07/2017 REASON FOR CONSULTATION: Left hip intertrochanteric fracture CONSULTING PHYSICIAN: Dr. Kervin Bay. 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 He had a mechanical fall. He fell on his left side. He had immediate left hip pain. He describes a mechanical fall where he twisted and lost his balance. He denies dizziness, syncope or loss of consciousness. He was unable to stand or ambulate. He presented to the Emergency Room where x-rays revealed a left hip intertrochanteric fracture. He is currently awake and alert on the 7th floor. His hip pain is worse with movement and is improved with rest. PAST MEDICAL HISTORY: ILLNESSES: Atrial fibrillation, high cholesterol, chronic renal failure, history of bladder cancer, history of parotid cancer. PAST SURGICAL HISTORY: Ileostomy and parotid tumor removal. MEDICATIONS: Include Coumadin, vancomycin, acidophilus and atorvastatin. ALLERGIES: CRAB. SOCIAL HISTORY: The patient denies alcohol, tobacco or drug use. FAMILY HISTORY: Noncontributory except for coronary artery disease in his father. REVIEW OF SYSTEMS: The patient denies headache, visual changes, neck pain, abdominal pain, nausea, vomiting, recent weight loss, fevers or chills, numbness or tingling of extremities or recent weight loss. He complains of left hip pain. He has chronic neck stiffness secondary to radiation treatment. LABORATORY DATA: White blood cell count is 8.2, hematocrit is 25, and platelet count of 7.8. INR is 1.9. X-RAYS: X-rays of the left hip are reviewed. X-rays reveal a minimally displaced left hip intertrochanteric fracture. PHYSICAL EXAMINATION: GENERAL: The patient is a thin, 77-year-old male. He is in no acute distress. He is awake and alert. He is alert and oriented x3. VITAL SIGNS: Temperature 97.7, pulse 128, respirations 16, blood pressure 98/68, O2 saturation 98% on room air. HEAD: The patient is normocephalic. EYES: Pupils are equal. NECK: Very stiff and firm secondary to radiation changes. Trachea appears to be midline. ABDOMEN: Soft, nontender, nondistended. EXTREMITIES: Examination of bilateral upper extremities reveals no significant pain with shoulder, elbow or wrist motion. He has good capillary refill in his fingers. Skin is intact to both hands. Radial pulses are palpable. Examination of right leg reveals no pain with hip, knee or ankle motion. Skin is intact. Dorsalis pedis pulse is palpable. Sensation is intact. Examination of the left leg reveals pain with any hip motion. He has no tenderness around his knee, tibia or ankle. Skin is intact. Dorsalis pedis pulse is palpable. Skin is intact. IMPRESSION: 1. Possible osteoporosis. 2. Displaced left hip intertrochanteric fracture. 3. Atrial fibrillation. 4. Anticoagulation with Coumadin. 5. Chronic renal failure. A mid-level provider in my office, nurse practitioner or PA, may see this patient on a follow-up basis and continue to implement the objective of this plan including: Starting or adjusting medications, injections of muscle, tendon, bursa or joints, cast application, orthotic or brace application, physical therapy, further radiographic studies including x-ray, MRI, CT, ultrasounds or bone scan, vascular studies, neurologic studies, or other specialist consultations, and proceeding with surgical management as appropriate. MD ADELA Hewitt/SHANNON , 09:23 AM , 09:40 AM
[2017-12-08] MEDS ORDERED: *morphine SULFATE 4 MG/ML PERIprocedure ONLY ONE ×3 (10:19→12:30)
[2017-12-08] MEDS ORDERED: DO NOT ADM ANY ANTICOAGULANT DRUGS PRN (10:45)
[2017-12-08] MEDS ORDERED: *LABETALOL HCL 100 MG/20 ML VIAL PERIprocedural Use ONLY ONE (11:00)
[2017-12-08] MEDS: SODIUM CHLOR 0.9% 1000 ML INJ 1,000 ML IV SCH (11:22)
[2017-12-08] MEDS ORDERED: DILTIAZEM INJ 125 MG in SODIUM CHLORIDE 0.9% INJ 100 ML IV PRN (11:30)
[2017-12-08] MEDS: NADOLOL 20 MG TAB PO SCH (11:40)
[2017-12-08] MEDS ORDERED: PROPOFOL 200 MG/20 ML AMP IV ONE (12:00)
[2017-12-08] MEDS ORDERED: SUCCINYLCHOLINE CHLORIDE 200 MG/10 ML VIAL IV ONE (12:00)
[2017-12-08] MEDS ORDERED: LABETALOL HCL 100 MG/20 ML VIAL IV PUSH ONE (12:00)
[2017-12-08] MEDS ORDERED: SODIUM CHLOR 0.9% 1000 ML INJ 1,000 ML IV ONE (12:00)
[2017-12-08] MEDS ORDERED: ROCURONIUM INJ 50 MG/5 ML SYRINGE IV PUSH ONE (12:00)
[2017-12-08] MEDS ORDERED: PHENYLEPH/NS 1000 MCG/10 ML SYR IV ONE (12:00)
[2017-12-08] MEDS ORDERED: LIDOCAINE HCL 1% PF 5 ML SYRINGE OTHER ONE (12:00)
[2017-12-08] MEDS ORDERED: ONDANSETRON HCL 4 MG/2 ML VIAL IV ONE (12:00)
--- NOTE | 2017-12-08 14:12 | HHI.PR ---
Subjective Remarks Follow-up left hip fracture and A. fib. Complains of left hip pain. 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 fib with RVR. Denies chest pain, palpitations and shortness of breath. Patient has not been receiving Corgard in rehab reasont not known to the patient. Discussed with RN, after receiving IV labetalol he will be restarted on Corgard. Objective Vitals Vital Signs Date Time Temp Pulse Resp B/P (MAP) Pulse Ox O2 Delivery O2 Flow Rate FiO2 12/08/17 12:00 126 22 138/76 (96) 98 Nasal Cannula 2 12/08/17 11:45 124 22 122/82 (95) 98 Nasal Cannula 2 12/08/17 11:30 124 22 127/71 (89) 100 Nasal Cannula 2 12/08/17 11:15 118 13 113/66 (82) 100 Nasal Cannula 2 12/08/17 11:10 117 16 114/65 (81) 95 12/08/17 11:04 117 16 116/63 (80) 95 12/08/17 11:00 132 16 121/60 (80) 100 Nasal Cannula 2 12/08/17 10:45 120 16 142/72 (95) 100 Nasal Cannula 2 12/08/17 10:30 117 16 126/75 (92) 100 Nasal Cannula 2 12/08/17 10:15 115 22 116/79 (91) 100 Nasal Cannula 2 12/08/17 10:00 111 22 105/63 (77) 99 Nasal Cannula 2 12/08/17 09:45 102 22 113/62 (79) 100 Nasal Cannula 2 12/08/17 09:34 97.6 99 15 112/65 (81) 100 Nasal Cannula 2 12/08/17 08:00 97.7 128 16 98/68 (78) 98 12/08/17 00:00 97.8 76 18 114/80 (91) 100 12/07/17 20:00 97.8 72 18 117/82 (94) 99 12/07/17 16:00 97.2 95 17 119/59 (79) 98 I/O 12/07/17 12/07/17 12/07/17 12/08/17 12/08/17 12/08/17 07:00 15:00 23:00 07:00 15:00 23:00 Intake Total 120 ml 500 ml 240 ml 500 ml Output Total 925 ml 800 ml 300 ml 15 ml Balance -805 ml -300 ml -60 ml 485 ml Intake Oral 120 ml 500 ml 240 ml Other 500 ml Output Urine Total 925 ml 800 ml 300 ml Estimated Blood Loss 15 ml # Bowel Movements 0 0 Result Diagram: 12/07/17 1013 12/07/17 1001 Imaging Last Impressions Hip X-Ray 12/08/17 0000 Signed Impressions: Service Date/Time: November 09:08 - CONCLUSION: Open reduction and internal fixation of left intratrochanteric fracture as above. Krishna Castro MD Chest X-Ray 12/06/17 1429 Signed Impressions: Service Date/Time: Wednesday, December 06, 2017 14:36 - CONCLUSION: No acute cardiopulmonary abnormality is identified. Jose Pathak MD Femur X-Ray 12/06/17 1300 Signed Impressions: Service Date/Time: Wednesday, December 06, 2017 13:15 - CONCLUSION: Intertrochanteric fracture left hip Wayne Dunbar MD Head CT 12/06/17 0000 Signed Impressions: Service Date/Time: Wednesday, December 06, 2017 15:39 - CONCLUSION: 1. No acute abnormality is identified. 2. Stable chronic findings include generalized atrophy and stable encephalomalacia in the right frontoparietal region. Jose Pathak MD Objective Remarks GENERAL: This is a well-nourished, well-developed patient, in no apparent distress. SKIN: No rashes, ecchymoses or lesions. Cool and dry. CARDIOVASCULAR: Irregular regular rate and rhythm without murmurs, gallops, or rubs. RESPIRATORY: Clear to auscultation. Breath sounds equal bilaterally. No wheezes , rales, or rhonchi. GASTROINTESTINAL: Abdomen soft, non-tender, nondistended. No guarding. MUSCULOSKELETAL: Left hip tenderness with dry dressing NEUROLOGICAL: Awake and alert. Cranial nerves II through XII intact. Motor and sensory grossly within normal limits. Five out of 5 muscle strength in all muscle groups. Normal speech. Procedures Left hip reduction and intramedullary nail fixation A/P Problem List: (1) Intertrochanteric fracture of left hip ICD Code: S72.142A - Displaced intertrochanteric fracture of left femur, initial encounter for closed fracture Status: Acute (2) Supratherapeutic INR ICD Code: R79.1 - Abnormal coagulation profile Status: Resolved (3) CKD (chronic kidney disease), stage III ICD Code: N18.3 - Chronic kidney disease, stage 3 (moderate) Status: Chronic Assessment and Plan 77 year-old man with Intertrochanteric fracture of left hip Status post mechanical fall Femur x-ray noted and review by me with finding of intertrochanteric fracture of left hip Stable status post repair. Supportive care with physical therapy, wound care , incentive spirometry and DVT prophylaxis with Lovenox Pain management accordingly counselled regarding narcotics Supra therapeutic INR Improved status post vitamin K Hold Coumadin and monitor INR/PT CKD stage III. Improving. Monitor Bun/Cr Nephrology consultation PRN A. fib with RVR Due to supra therapeutic INR, will hold Coumadin as well. Restart if okay with orthopedic surgery Telemetry monitoring Restart Corgard. Cardizem drip as needed discussed with pharmacy Cardizem IV not available will use IV labetalol or Lopressor instead as needed. Discharge Planning Rehab when cleared by orthopedic surgery Problem Qualifiers (1) Intertrochanteric fracture of left hip: Qualified Codes: S72.145A - Nondisplaced intertrochanteric fracture of left femur, initial encounter for closed fracture Waqar López MD Dec 08, 2017 14:12
--- NOTE | 2017-12-08 15:16 | RADRPT ---
EXAM DATE/TIME: 12/08/2017 09:08 [facility] COMPARISON: FEMUR LEFT (AP & LAT/2VWS), December 06, 2017, 13:15. INDICATIONS : Troch nail left hip. MEDICAL HISTORY : Cardiovascular disease. Carcinoma, bladder. Neck mass.Parotid mass.Chemotherapy. Radiation therapy.Hy percholesterolemia. SURGICAL HISTORY : Parotid surgery. Bladder surgery. ENCOUNTER: Subsequent ACUITY: 1 week PAIN SCORE: Non-responsive. LOCATION: Left Hip FINDINGS: A two view examination of the left hip was performed. Intratrochanteric fracture identified previousl y has been repaired with a compression screw and medullary dayanara. Fracture fragments are in adequate an atomic alignment CONCLUSION: Open reduction and internal fixation of left intratrochanteric fracture as above. Krishna Castro MD on December 08, 2017 at 15:13 Board Certified Radiologist. This report was verified electronically.
[2017-12-08 16:15] LABS: AUTOMATED NEUTROPHIL # 7.8 TH/MM3 (1.8-7.7); BASOPHIL # 0.1 TH/MM3 (0-0.2); BASOPHIL % 0.7 % (0.0-2.0); EOSINOPHIL % 0.3 % (0.0-4.0); HEMATOCRIT 29.2 % (39.0-51.0); LYMPH % 8.6 % (9.0-44.0); LYMPHOCYTE # 0.9 TH/MM3 (1.0-4.8); MEAN CORPUSCULAR HGB CONC 30.8 % (32.0-36.0); MEAN PLATELET VOLUME 8.3 FL (7.0-11.0); MONO % 12.6 % (0.0-8.0); MONOCYTE # 1.3 TH/MM3 (0-0.9); NEUT % 77.8 % (16.0-70.0); PLATELET COUNT 202 TH/MM3 (150-450); RED BLOOD COUNT 3.11 MIL/MM3 (4.50-5.90); RED CELL DISTRIBUTION WIDTH 16.4 % (11.6-17.2)
[2017-12-08 16:35] LABS: BICARBONATE 19.1 MEQ/L (21.0-32.0); CALCIUM 8.3 MG/DL (8.5-10.1); CREATININE 2.38 MG/DL (0.60-1.30); MAGNESIUM 1.7 MG/DL (1.5-2.5)
[2017-12-08 20:00] VITALS: BP 107/63; PULSE 70; RESP 18; TEMP 98; O2SAT 100
[2017-12-08] MEDS: ATORVASTATIN 20 MG TAB PO SCH (21:18)
[2017-12-09] VITALS: BP 98/62; PULSE 87; RESP 16; TEMP 97.8; O2SAT 96
[2017-12-09] MEDS: PILOCARPINE HCL 5 MG TAB PO SCH ×4 (00:39→18:50)
[2017-12-09] MEDS: SODIUM CHLOR 0.9% 1000 ML INJ 1,000 ML IV SCH ×2 (00:40→15:50)
[2017-12-09 04:00] VITALS: BP 98/64; PULSE 98; RESP 18; TEMP 97.4; O2SAT 99
--- NOTE | 2017-12-09 06:52 | PD.ORT.PN ---
Subjective Subjective Remarks POD 1 s/p IMN left hip doing well. pain controlled Objective Vitals Vital Signs Date Time Temp Pulse Resp B/P (MAP) Pulse Ox O2 Delivery O2 Flow Rate FiO2 12/09/17 04:00 97.4 98 18 98/64 (75) 99 12/09/17 00:22 Nasal Cannula 2.00 12/09/17 00:00 97.8 87 16 98/62 (74) 96 12/08/17 20:00 98.0 70 18 107/63 (78) 100 12/08/17 13:00 97.7 115 14 119/66 (83) 97 Nasal Cannula 2 12/08/17 12:45 119 14 103/75 (84) 99 Nasal Cannula 2 12/08/17 12:30 114 13 116/68 (84) 95 Nasal Cannula 2 12/08/17 12:15 111 13 114/70 (85) 98 Nasal Cannula 2 12/08/17 12:00 126 22 138/76 (96) 98 Nasal Cannula 2 12/08/17 11:45 124 22 122/82 (95) 98 Nasal Cannula 2 12/08/17 11:30 124 22 127/71 (89) 100 Nasal Cannula 2 12/08/17 11:15 118 13 113/66 (82) 100 Nasal Cannula 2 12/08/17 11:10 117 16 114/65 (81) 95 12/08/17 11:04 117 16 116/63 (80) 95 12/08/17 11:00 132 16 121/60 (80) 100 Nasal Cannula 2 12/08/17 10:45 120 16 142/72 (95) 100 Nasal Cannula 2 12/08/17 10:30 117 16 126/75 (92) 100 Nasal Cannula 2 12/08/17 10:15 115 22 116/79 (91) 100 Nasal Cannula 2 12/08/17 10:00 111 22 105/63 (77) 99 Nasal Cannula 2 12/08/17 09:45 102 22 113/62 (79) 100 Nasal Cannula 2 12/08/17 09:34 97.6 99 15 112/65 (81) 100 Nasal Cannula 2 12/08/17 08:00 97.7 128 16 98/68 (78) 98 I/O 12/08/17 12/08/17 12/08/17 12/09/17 12/09/17 12/09/17 07:00 15:00 23:00 07:00 15:00 23:00 Intake Total 240 ml 947 ml 800 ml 340 ml Output Total 300 ml 340 ml 500 ml Balance -60 ml 607 ml 300 ml 340 ml Intake Oral 240 ml 75 ml 800 ml 240 ml IV Total 122 ml 100 ml Packed Cells 250 ml Other 500 ml Output Urine Total 300 ml 325 ml 500 ml Estimated Blood Loss 15 ml # Bowel Movements 0 Result Diagram: 12/08/17 1509 12/08/17 1509 Imaging Last 24 hours Impressions Chest X-Ray 12/06/17 1429 Signed Impressions: Service Date/Time: Wednesday, December 06, 2017 14:36 - CONCLUSION: No acute cardiopulmonary abnormality is identified. Jose Pathak MD Femur X-Ray 12/06/17 1300 Signed Impressions: Service Date/Time: Wednesday, December 06, 2017 13:15 - CONCLUSION: Intertrochanteric fracture left hip Wayne Dunbar MD Objective Remarks LLE: dressings clean and dry. intact. NVI Assessment & Plan Assessment and Plan 1) Left Intertroch Hip Fx s/p IMN - POD 1 -WBAT -daily dressing changes POD 2 -DVT prophylaxis -ok to resume coumadin -CM for DC planning to SNF -plan for DC to snf when arrangements made -f/u with Y[facility] or PA in 2 weeks Brian Fowler/Control Systems Developer PA Dec 09, 2017 06:52
[2017-12-09] MEDS ORDERED: VITA2000 PO (06:54)
[2017-12-09] MEDS ORDERED: VITA500012 PO (06:54)
[2017-12-09] MEDS ORDERED: HYDR-3580 PO (06:54)
[2017-12-09] MEDS ORDERED: WALKER/ADULT/FO1 MIS (06:54)
[2017-12-09] MEDS ORDERED: WHEEMIS3 (06:54)
[2017-12-09] MEDS ORDERED: CALCTAB19 PO (06:54)
[2017-12-09 08:00] VITALS: BP 92/55; PULSE 87; RESP 16; TEMP 97.6; O2SAT 98
[2017-12-09 08:11] LABS: HEMATOCRIT 25.4 % (39.0-51.0); HEMOGLOBIN 8.3 GM/DL (13.0-17.0)
[2017-12-09] MEDS: ENOXAPARIN SODIUM 30 MG/0.3 ML SYRINGE SQ SCH (08:42)
[2017-12-09] MEDS: CHOLECALCIFEROL (VIT D3) 5000 UNIT CAP PO SCH (08:42)
[2017-12-09] MEDS: NADOLOL 20 MG TAB PO SCH (08:42)
[2017-12-09] MEDS: ACETAMINOPHEN/HYDROcodone 325 MG/7.5 MG TAB PO PRN ×2 (08:42→18:50)
[2017-12-09 12:00] VITALS: BP 74/51; PULSE 86; RESP 16; TEMP 97.2; O2SAT 94
[2017-12-09] MEDS ORDERED: SODIUM CHLORID 0.9% 500 ML INJ 500 ML IV ONE (12:15)
--- NOTE | 2017-12-09 13:03 | HHI.PR ---
Subjective Remarks Follow-up A. fib and RVR. Patient feels tired blood pressure noted to be low denies any other symptoms. Discussed with RN, will give fluid bolus and continue IV fluids will also decrease Corgard dose. Hold discharge today Objective Vitals Vital Signs Date Time Temp Pulse Resp B/P (MAP) Pulse Ox O2 Delivery O2 Flow Rate FiO2 12/09/17 12:00 97.2 86 16 74/51 (59) 94 12/09/17 08:00 97.6 87 16 92/55 (67) 98 12/09/17 04:00 97.4 98 18 98/64 (75) 99 12/09/17 00:22 Nasal Cannula 2.00 12/09/17 00:00 97.8 87 16 98/62 (74) 96 12/08/17 20:00 98.0 70 18 107/63 (78) 100 I/O 12/08/17 12/08/17 12/08/17 12/09/17 12/09/17 12/09/17 07:00 15:00 23:00 07:00 15:00 23:00 Intake Total 240 ml 947 ml 800 ml 340 ml Output Total 300 ml 340 ml 500 ml Balance -60 ml 607 ml 300 ml 340 ml Intake Oral 240 ml 75 ml 800 ml 240 ml IV Total 122 ml 100 ml Packed Cells 250 ml Other 500 ml Output Urine Total 300 ml 325 ml 500 ml Estimated Blood Loss 15 ml # Bowel Movements 0 Result Diagram: 12/09/17 0638 12/08/17 1509 Imaging Last Impressions Hip X-Ray 12/08/17 0000 Signed Impressions: Service Date/Time: November 09:08 - CONCLUSION: Open reduction and internal fixation of left intratrochanteric fracture as above. Krishna Castro MD Chest X-Ray 12/06/17 1429 Signed Impressions: Service Date/Time: Wednesday, December 06, 2017 14:36 - CONCLUSION: No acute cardiopulmonary abnormality is identified. Jose Pathak MD Femur X-Ray 12/06/17 1300 Signed Impressions: Service Date/Time: Wednesday, December 06, 2017 13:15 - CONCLUSION: Intertrochanteric fracture left hip Wayne Dunbar MD Head CT 12/06/17 0000 Signed Impressions: Service Date/Time: Wednesday, December 06, 2017 15:39 - CONCLUSION: 1. No acute abnormality is identified. 2. Stable chronic findings include generalized atrophy and stable encephalomalacia in the right frontoparietal region. Jose Pathak MD Objective Remarks GENERAL: This is a well-nourished, well-developed patient, in no apparent distress. SKIN: No rashes, ecchymoses or lesions. Cool and dry. CARDIOVASCULAR: Irregular regular rate and rhythm without murmurs, gallops, or rubs. RESPIRATORY: Clear to auscultation. Breath sounds equal bilaterally. No wheezes , rales, or rhonchi. GASTROINTESTINAL: Abdomen soft, non-tender, nondistended. No guarding. MUSCULOSKELETAL: Left hip tenderness with dry dressing NEUROLOGICAL: Awake and alert. Cranial nerves II through XII intact. Motor and sensory grossly within normal limits. Five out of 5 muscle strength in all muscle groups. Normal speech. Procedures Left hip reduction and intramedullary nail fixation A/P Problem List: (1) Intertrochanteric fracture of left hip ICD Code: S72.142A - Displaced intertrochanteric fracture of left femur, initial encounter for closed fracture Status: Acute (2) Supratherapeutic INR ICD Code: R79.1 - Abnormal coagulation profile Status: Resolved (3) CKD (chronic kidney disease), stage III ICD Code: N18.3 - Chronic kidney disease, stage 3 (moderate) Status: Chronic Assessment and Plan 77 year-old man with Intertrochanteric fracture of left hip. Status post mechanical fall. Stable Femur x-ray noted and review by me with finding of intertrochanteric fracture of left hip Stable status post repair. Supportive care with physical therapy, wound care , incentive spirometry and DVT prophylaxis with Lovenox Pain management accordingly counselled regarding narcotics Supra therapeutic INR Improved status post vitamin K CKD stage III. Improving. Monitor Bun/Cr Nephrology consultation PRN A. fib with RVR Coumadin to be restarted okay with orthopedic surgery Telemetry monitoring Improved with CVR continue Corgard. Cardizem drip as needed discussed with pharmacy Cardizem IV not available will use IV labetalol or Lopressor instead as needed. Hypotension can vary to Hypotension secondary to Corgard and dehydration. Will decrease Corgard dose to 10 mg daily and give fluid bolus. Continue to monitor Discharge Planning Not ready for discharge today. Possible discharge tomorrow to [facility] or SNF Problem Qualifiers (1) Intertrochanteric fracture of left hip: Qualified Codes: S72.145A - Nondisplaced intertrochanteric fracture of left femur, initial encounter for closed fracture Waqar López MD Dec 09, 2017 13:03
[2017-12-09] MEDS ORDERED: PILL SPLITTER OTHER PRN (13:30)
--- NOTE | 2017-12-09 14:38 | HHI.DCPOC ---
Discharge Care Plan Diagnosis: (1) Intertrochanteric fracture of left hip Your Health Problems Are: Difficulty with ADL Exercise Tolerance Goals to Promote Your Health * To prevent worsening of your condition and complications * To maintain your health at the optimal level Directions to Meet Your Goals Take your medications as prescribed Follow your dietary instruction Follow activity as directed Keep your appointments as scheduled Take your immunizations and boosters as scheduled If your symptoms worsen call your PCP, if no PCP go to Urgent Care Center or Emergency Room Smoking is Dangerous to Your Health. Avoid second hand smoke Call the 24-hour hour crisis hotline for domestic abuse at Waqar López MD Dec 09, 2017 14:38
[2017-12-09] MEDS: WARFARIN SOD 2.5 MG TAB PO SCH ×2 (16:00→16:18)
[2017-12-09 17:00] VITALS: BP 105/64; PULSE 83; RESP 17; TEMP 97.3; O2SAT 100
[2017-12-09 20:00] VITALS: BP 111/67; PULSE 87; RESP 18; TEMP 97.8; O2SAT 99
[2017-12-09] MEDS: ATORVASTATIN 20 MG TAB PO SCH (20:58)
[2017-12-09] MEDS: SODIUM CHLORIDE 0.9% FLUSH 10 ML FLUSH IV FLUSH SCH (20:59)
[2017-12-10] VITALS (10 sets, daily range): BP systolic 76–110; BP diastolic 51–73; PULSE 68–105; RESP 15–19; TEMP 97.2–98.1; O2SAT 96–100
[2017-12-10] MEDS: PILOCARPINE HCL 5 MG TAB PO SCH ×4 (00:53→18:08)
[2017-12-10 05:30] LABS: BASOPHIL % 0.4 % (0.0-2.0); EOSINOPHIL # 0.2 TH/MM3 (0-0.4); EOSINOPHIL % 2.2 % (0.0-4.0); LYMPH % 13.4 % (9.0-44.0); LYMPHOCYTE # 1.2 TH/MM3 (1.0-4.8); MEAN CELL VOLUME 89.5 FL (80.0-100.0); MEAN CORPUSCULAR HEMOGLOBIN 29.7 PG (27.0-34.0); MEAN CORPUSCULAR HGB CONC 33.2 % (32.0-36.0); MEAN PLATELET VOLUME 8.5 FL (7.0-11.0); MONO % 14.8 % (0.0-8.0); MONOCYTE # 1.3 TH/MM3 (0-0.9); NEUT % 69.2 % (16.0-70.0); PLATELET COUNT 196 TH/MM3 (150-450); RED BLOOD COUNT 2.68 MIL/MM3 (4.50-5.90); RED CELL DISTRIBUTION WIDTH 16.1 % (11.6-17.2); WHITE BLOOD COUNT 8.7 TH/MM3 (4.0-11.0)
[2017-12-10 05:49] LABS: INTERNATIONAL NORMALIZED RATIO 1.3 RATIO; PROTHROMBIN TIME - PATIENT 12.9 SEC (9.8-11.6)
[2017-12-10 05:55] LABS: BICARBONATE 20.1 MEQ/L (21.0-32.0); CALCIUM 8.4 MG/DL (8.5-10.1); CREATININE 2.7 MG/DL (0.60-1.30); MAGNESIUM 1.7 MG/DL (1.5-2.5)
[2017-12-10] MEDS ORDERED: NADOLOL 20 MG TAB PO SCH (09:00)
[2017-12-10] MEDS: ENOXAPARIN SODIUM 30 MG/0.3 ML SYRINGE SQ SCH (09:22)
[2017-12-10] MEDS: ACETAMINOPHEN/HYDROcodone 325 MG/7.5 MG TAB PO PRN ×2 (09:22→12:18)
[2017-12-10] MEDS: CHOLECALCIFEROL (VIT D3) 5000 UNIT CAP PO SCH (09:22)
[2017-12-10] MEDS: SODIUM CHLORIDE 0.9% FLUSH 10 ML FLUSH IV FLUSH SCH ×2 (09:23→21:00)
--- NOTE | 2017-12-10 12:03 | HHI.PR ---
Subjective Remarks F/U hypotension. BP improved but low normal pt asymptomatic dw RN Objective Vitals Vital Signs Date Time Temp Pulse Resp B/P (MAP) Pulse Ox O2 Delivery O2 Flow Rate FiO2 12/10/17 08:00 97.8 105 16 92/57 (69) 99 12/10/17 04:00 98.1 92 18 96/60 (72) 96 12/10/17 00:00 97.6 85 18 98/56 (70) 98 12/09/17 20:00 97.8 87 18 111/67 (82) 99 12/09/17 17:00 97.3 83 17 105/64 (78) 100 I/O 12/09/17 12/09/17 12/09/17 12/10/17 12/10/17 12/10/17 07:00 15:00 23:00 07:00 15:00 23:00 Intake Total 340 ml 1000 ml 240 ml Output Total 400 ml 600 ml Balance 340 ml 600 ml -360 ml Intake Oral 240 ml 1000 ml 240 ml IV Total 100 ml Output Urine Total 400 ml 600 ml # Bowel Movements 2 Result Diagram: 12/10/17 0447 12/10/17 0447 Imaging Last Impressions Hip X-Ray 12/08/17 0000 Signed Impressions: Service Date/Time: November 09:08 - CONCLUSION: Open reduction and internal fixation of left intratrochanteric fracture as above. Krishna Castro MD Chest X-Ray 12/06/17 1429 Signed Impressions: Service Date/Time: Wednesday, December 06, 2017 14:36 - CONCLUSION: No acute cardiopulmonary abnormality is identified. Jose Pathak MD Femur X-Ray 12/06/17 1300 Signed Impressions: Service Date/Time: Wednesday, December 06, 2017 13:15 - CONCLUSION: Intertrochanteric fracture left hip Wayne Dunbar MD Head CT 12/06/17 0000 Signed Impressions: Service Date/Time: Wednesday, December 06, 2017 15:39 - CONCLUSION: 1. No acute abnormality is identified. 2. Stable chronic findings include generalized atrophy and stable encephalomalacia in the right frontoparietal region. Jose Pathak MD Objective Remarks GENERAL: This is a well-nourished, well-developed patient, in no apparent distress. SKIN: No rashes, ecchymoses or lesions. Cool and dry. CARDIOVASCULAR: Irregular regular rate and rhythm without murmurs, gallops, or rubs. RESPIRATORY: Clear to auscultation. Breath sounds equal bilaterally. No wheezes , rales, or rhonchi. GASTROINTESTINAL: Abdomen soft, non-tender, nondistended. No guarding. MUSCULOSKELETAL: Left hip tenderness with dry dressing NEUROLOGICAL: Awake and alert. Cranial nerves II through XII intact. Motor and sensory grossly within normal limits. Five out of 5 muscle strength in all muscle groups. Normal speech. Procedures Left hip reduction and intramedullary nail fixation A/P Problem List: (1) Intertrochanteric fracture of left hip ICD Code: S72.142A - Displaced intertrochanteric fracture of left femur, initial encounter for closed fracture Status: Acute (2) Supratherapeutic INR ICD Code: R79.1 - Abnormal coagulation profile Status: Resolved (3) CKD (chronic kidney disease), stage III ICD Code: N18.3 - Chronic kidney disease, stage 3 (moderate) Status: Chronic Assessment and Plan 77 year-old man with Intertrochanteric fracture of left hip. Status post mechanical fall. Stable Femur x-ray noted and review by me with finding of intertrochanteric fracture of left hip Stable status post repair. Supportive care with physical therapy, wound care , incentive spirometry and DVT prophylaxis with Lovenox Pain management accordingly counselled regarding narcotics Supra therapeutic INR Improved status post vitamin K CKD stage III. Crea sl up ct IVF Monitor Bun/Cr Nephrology consultation PRN A. fib with RVR Coumadin to be restarted okay with orthopedic surgery Telemetry monitoring Improved with CVR Cardizem drip as needed discussed with pharmacy Cardizem IV not available will use IV labetalol or Lopressor instead as needed. Hypotension secondary to Corgard and dehydration. Will decrease Corgard dose to 10 mg daily and give fluid bolus prn. Continue to monitor Discharge Planning Possible discharge today. Problem Qualifiers (1) Intertrochanteric fracture of left hip: Qualified Codes: S72.145A - Nondisplaced intertrochanteric fracture of left femur, initial encounter for closed fracture Waqar López MD Dec 10, 2017 12:03
[2017-12-10] MEDS ORDERED: SODIUM CHLORID 0.9% 500 ML INJ 500 ML IV ONE (12:15)
[2017-12-10] MEDS ORDERED: SODIUM CHLOR 0.9% 250 ML INJ 250 ML IV ONE ×2 (14:15→16:30)
[2017-12-10] MEDS: WARFARIN SOD 2.5 MG TAB PO SCH (15:47)
[2017-12-10] MEDS: SODIUM CHLOR 0.9% 1000 ML INJ 1,000 ML IV SCH (16:14)
[2017-12-10] MEDS: ATORVASTATIN 20 MG TAB PO SCH (21:19)
[2017-12-11] VITALS: BP 111/65; PULSE 72; RESP 15; TEMP 97.9; O2SAT 97
[2017-12-11] MEDS: PILOCARPINE HCL 5 MG TAB PO SCH ×3 (00:06→14:11)
[2017-12-11 02:42] VITALS: BP 109/62; PULSE 70; RESP 16; TEMP 97.8; O2SAT 98
[2017-12-11 04:00] VITALS: BP 110/62; PULSE 74; RESP 15; TEMP 98; O2SAT 95
[2017-12-11 06:06] LABS: INTERNATIONAL NORMALIZED RATIO 1.5 RATIO; PROTHROMBIN TIME - PATIENT 15.1 SEC (9.8-11.6)
[2017-12-11 06:15] LABS: BICARBONATE 18.8 MEQ/L (21.0-32.0); CALCIUM 8.2 MG/DL (8.5-10.1); CREATININE 2.41 MG/DL (0.60-1.30); MAGNESIUM 1.7 MG/DL (1.5-2.5)
[2017-12-11 08:00] VITALS: BP 113/64; PULSE 81; RESP 17; TEMP 97.5; O2SAT 92
[2017-12-11] MEDS: SODIUM CHLORIDE 0.9% FLUSH 10 ML FLUSH IV FLUSH SCH (08:38)
[2017-12-11] MEDS: CHOLECALCIFEROL (VIT D3) 5000 UNIT CAP PO SCH (08:43)
[2017-12-11] MEDS: ENOXAPARIN SODIUM 30 MG/0.3 ML SYRINGE SQ SCH (08:43)
[2017-12-11 09:59] LABS: HEMATOCRIT 26.7 % (39.0-51.0); HEMOGLOBIN 8.8 GM/DL (13.0-17.0)
[2017-12-11 10:34] VITALS: O2SAT 92
[2017-12-11 12:00] VITALS: BP 111/60; PULSE 71; RESP 19; TEMP 97.4; O2SAT 98
--- NOTE | 2017-12-11 12:15 | HHI.PR ---
Subjective Remarks Follow-up anemia. Tolerated blood transfusion he has no complaints. Improved hemodynamics. Discussed with nursing stable for discharge Objective Vitals Vital Signs Date Time Temp Pulse Resp B/P (MAP) Pulse Ox O2 Delivery O2 Flow Rate FiO2 12/11/17 10:34 92 21 12/11/17 08:00 97.5 81 17 113/64 (80) 92 12/11/17 04:00 98.0 74 15 110/62 (78) 95 12/11/17 02:42 97.8 70 16 109/62 (78) 98 12/11/17 00:00 97.9 72 15 111/65 (80) 97 12/10/17 22:22 97.2 80 19 110/73 (85) 97 12/10/17 21:12 100 21 12/10/17 20:09 74 12/10/17 20:00 97.5 68 15 97/64 (75) 100 12/10/17 16:00 97.3 77 16 81/60 (67) 100 12/10/17 13:43 81/52 (62) I/O 12/10/17 12/10/17 12/10/17 12/11/17 12/11/17 12/11/17 07:00 15:00 23:00 07:00 15:00 23:00 Intake Total 240 ml 1500 ml 1290 ml 1090 ml Output Total 600 ml 550 ml 1500 ml Balance -360 ml 1500 ml 740 ml -410 ml Intake Oral 240 ml 475 ml 240 ml IV Total 1500 ml 800 ml 450 ml Packed Cells 400 ml Blood Product IV Normal Saline Flush 15 ml Output Urine Total 600 ml 550 ml 1500 ml # Bowel Movements 1 0 Result Diagram: 12/11/17 0927 12/11/17 0534 Imaging Last Impressions Hip X-Ray 12/08/17 0000 Signed Impressions: Service Date/Time: November 09:08 - CONCLUSION: Open reduction and internal fixation of left intratrochanteric fracture as above. Krishna Castro MD Chest X-Ray 12/06/17 1429 Signed Impressions: Service Date/Time: Wednesday, December 06, 2017 14:36 - CONCLUSION: No acute cardiopulmonary abnormality is identified. Jose Pathak MD Femur X-Ray 12/06/17 1300 Signed Impressions: Service Date/Time: Wednesday, December 06, 2017 13:15 - CONCLUSION: Intertrochanteric fracture left hip Wayne Dunbar MD Head CT 12/06/17 0000 Signed Impressions: Service Date/Time: Wednesday, December 06, 2017 15:39 - CONCLUSION: 1. No acute abnormality is identified. 2. Stable chronic findings include generalized atrophy and stable encephalomalacia in the right frontoparietal region. Jose Pathak MD Objective Remarks GENERAL: This is a well-nourished, well-developed patient, in no apparent distress. SKIN: No rashes, ecchymoses or lesions. Cool and dry. CARDIOVASCULAR: Irregular regular rate and rhythm without murmurs, gallops, or rubs. RESPIRATORY: Clear to auscultation. Breath sounds equal bilaterally. No wheezes , rales, or rhonchi. GASTROINTESTINAL: Abdomen soft, non-tender, nondistended. No guarding. MUSCULOSKELETAL: Left hip tenderness with dry dressing NEUROLOGICAL: Awake and alert. Cranial nerves II through XII intact. Motor and sensory grossly within normal limits. Five out of 5 muscle strength in all muscle groups. Normal speech. Procedures Left hip reduction and intramedullary nail fixation A/P Problem List: (1) Intertrochanteric fracture of left hip ICD Code: S72.142A - Displaced intertrochanteric fracture of left femur, initial encounter for closed fracture Status: Acute (2) Supratherapeutic INR ICD Code: R79.1 - Abnormal coagulation profile Status: Resolved (3) CKD (chronic kidney disease), stage III ICD Code: N18.3 - Chronic kidney disease, stage 3 (moderate) Status: Chronic Assessment and Plan 77 year-old man with Intertrochanteric fracture of left hip. Status post mechanical fall. Stable Femur x-ray noted and review by me with finding of intertrochanteric fracture of left hip Stable status post repair. Supportive care with physical therapy, wound care , incentive spirometry and DVT prophylaxis with Lovenox Pain management accordingly counselled regarding narcotics Supra therapeutic INR Improved status post vitamin K CKD stage III. Stable Monitor Bun/Cr Nephrology consultation PRN A. fib with RVR Coumadin to be restarted okay with orthopedic surgery Telemetry monitoring Improved with CVR Cardizem drip as needed discussed with pharmacy Cardizem IV not available will use IV labetalol or Lopressor instead as needed. Hypotension secondary to Corgard and dehydration. Improved with blood transfusion and stopping Corgard. Continue to monitor Discharge Planning Patient stable for discharge Problem Qualifiers (1) Intertrochanteric fracture of left hip: Qualified Codes: S72.145A - Nondisplaced intertrochanteric fracture of left femur, initial encounter for closed fracture Waqar López MD Dec 11, 2017 12:15
--- NOTE | 2017-12-11 12:18 | HHI.DS ---
Discharge Summary Admission Date Dec 06, 2017 at 16:30 Discharge Date: Dec 11, 2017 Admitting Diagnosis Left intertrochanteric hip fracture, CKD (1) Intertrochanteric fracture of left hip ICD Code: S72.142A - Displaced intertrochanteric fracture of left femur, initial encounter for closed fracture Diagnosis: Principal Status: Acute (2) Supratherapeutic INR ICD Code: R79.1 - Abnormal coagulation profile Diagnosis: Principal Status: Resolved (3) CKD (chronic kidney disease), stage III ICD Code: N18.3 - Chronic kidney disease, stage 3 (moderate) Diagnosis: Principal Status: Chronic Procedures Left hip reduction and intramedullary nail fixation Brief History - From Admission 77 year-old male with known history of atrial fibrillation, hyperlipidemia, history of liver cancer, history of parotid cancer was brought to the ED for evaluation of left hip pain following a mechanical fall. Patient was just released from a rehab facility where he had spent over 4 weeks, and states as he was putting his left foot on the first step, he had twisted his left foot and lost his balance and fell backward landing on his left foot as well as left elbow. he denies any head trauma, however immediately felt significant pain to the left foot which he rated 6/10 in intensity. There was no loss of consciousness. Femur x-ray in the ED revealed left hip fracture. INR slightly elevated to 3.0 and patient was found to have labile BUN/ creatinine. He denies any chest pain or shortness of breath CBC/BMP: 12/11/17 0927 12/11/17 0534 Significant Findings Laboratory Tests Test 12/08/17 15:09 12/09/17 06:38 12/10/17 04:47 12/11/17 05:34 Red Blood Count 3.11 MIL/MM3 (4.50-5.90) 2.68 MIL/MM3 (4.50-5.90) Hemoglobin 9.0 GM/DL (13.0-17.0) 8.3 GM/DL (13.0-17.0) 8.0 GM/DL (13.0-17.0) Hematocrit 29.2 % (39.0-51.0) 25.4 % (39.0-51.0) 24.0 % (39.0-51.0) Mean Corpuscular Hemoglobin Concent 30.8 % (32.0-36.0) Neutrophils (%) (Auto) 77.8 % (16.0-70.0) Lymphocytes (%) (Auto) 8.6 % (9.0-44.0) Monocytes (%) (Auto) 12.6 % (0.0-8.0) 14.8 % (0.0-8.0) Neutrophils # (Auto) 7.8 TH/MM3 (1.8-7.7) Lymphocytes # (Auto) 0.9 TH/MM3 (1.0-4.8) Monocytes # (Auto) 1.3 TH/MM3 (0-0.9) 1.3 TH/MM3 (0-0.9) Blood Urea Nitrogen 38 MG/DL (7-18) 45 MG/DL (7-18) 42 MG/DL (7-18) Creatinine 2.38 MG/DL (0.60-1.30) 2.70 MG/DL (0.60-1.30) 2.41 MG/DL (0.60-1.30) Calcium Level 8.3 MG/DL (8.5-10.1) 8.4 MG/DL (8.5-10.1) 8.2 MG/DL (8.5-10.1) Chloride Level 119 MEQ/L (98-107) 115 MEQ/L (98-107) 116 MEQ/L (98-107) Carbon Dioxide Level 19.1 MEQ/L (21.0-32.0) 20.1 MEQ/L (21.0-32.0) 18.8 MEQ/L (21.0-32.0) Estimat Glomerular Filtration Rate 27 ML/MIN (>89) 23 ML/MIN (>89) 26 ML/MIN (>89) 25-Hydroxy Vitamin D Total 18.6 ng/ML (30-100) Prothrombin Time 12.9 SEC (9.8-11.6) 15.1 SEC (9.8-11.6) Test 12/11/17 09:27 Hemoglobin 8.8 GM/DL (13.0-17.0) Hematocrit 26.7 % (39.0-51.0) Imaging Last Impressions Hip X-Ray 12/08/17 0000 Signed Impressions: Service Date/Time: November 09:08 - CONCLUSION: Open reduction and internal fixation of left intratrochanteric fracture as above. Krishna Castro MD Chest X-Ray 12/06/17 1429 Signed Impressions: Service Date/Time: Wednesday, December 06, 2017 14:36 - CONCLUSION: No acute cardiopulmonary abnormality is identified. Jose Pathak MD Femur X-Ray 12/06/17 1300 Signed Impressions: Service Date/Time: Wednesday, December 06, 2017 13:15 - CONCLUSION: Intertrochanteric fracture left hip Wayne Dunbar MD Head CT 12/06/17 0000 Signed Impressions: Service Date/Time: Wednesday, December 06, 2017 15:39 - CONCLUSION: 1. No acute abnormality is identified. 2. Stable chronic findings include generalized atrophy and stable encephalomalacia in the right frontoparietal region. Jose Pathak MD PE at Discharge GENERAL: This is a well-nourished, well-developed patient, in no apparent distress. SKIN: No rashes, ecchymoses or lesions. Cool and dry. CARDIOVASCULAR: Irregular regular rate and rhythm without murmurs, gallops, or rubs. RESPIRATORY: Clear to auscultation. Breath sounds equal bilaterally. No wheezes , rales, or rhonchi. GASTROINTESTINAL: Abdomen soft, non-tender, nondistended. No guarding. MUSCULOSKELETAL: Left hip tenderness with dry dressing NEUROLOGICAL: Awake and alert. Cranial nerves II through XII intact. Motor and sensory grossly within normal limits. Five out of 5 muscle strength in all muscle groups. Normal speech. Hospital Course 77 year-old man with Intertrochanteric fracture of left hip. Status post mechanical fall. Stable Femur x-ray noted and review by me with finding of intertrochanteric fracture of left hip Stable status post repair. Supportive care with physical therapy, wound care , incentive spirometry and DVT prophylaxis with Lovenox Pain management accordingly counselled regarding narcotics Supra therapeutic INR Improved status post vitamin K CKD stage III. Stable Monitor Bun/Cr Nephrology consultation PRN A. fib with RVR Coumadin to be restarted okay with orthopedic surgery Telemetry monitoring Improved with CVR Cardizem drip as needed discussed with pharmacy Cardizem IV not available will use IV labetalol or Lopressor instead as needed. Hypotension secondary to Corgard and dehydration. Improved with blood transfusion and stopping Corgard. Continue to monitor Pt Condition on Discharge: Stable Discharge Disposition: Discharge to SNF Discharge Time: > 30 minutes Discharge Instructions DIET: Follow Instructions for: Diabetic Diet Activities you can perform: Regular-No Restrictions Activities to Avoid: Driving Follow up Referrals: Orthopedics - 2 Weeks [facility] with Chad Vallejo MD PCP Follow-up - 1 Week New Orders: PT/INR New Medications: Calcium Carbonate-Vitamin D (Calcium 600+D 200) 600-200 Mg-Unit Tab 1 TAB PO BID for Nutritional Supplement, #60 TAB 0 Refills Cholecalciferol (Vitamin D3) 2,000 Unit Cap 2000 UNITS PO DAILY for Nutritional Supplement, #60 CAP 0 Refills Ergocalciferol (Ergocalciferol) 50,000 Unit Cap 93075 UNITS PO Q7D for Nutritional Supplement, #8 CAP Hydrocodone-Acetaminophen (Hydrocodone-Acetaminophen) 7.5 Mg-325 Mg Tab 1 TAB PO Q4H PRN for PAIN, #40 TAB 0 Refills Walker/Adult/Folding (Walker/Adult/Folding) 1 Mis Mis EA .XX DIRECTED, #1 0 Refills Wheelchair (Wheelchair) 1 Mis Mis EA .XX DIRECTED, #1 0 Refills Continued Medications: Atorvastatin (Atorvastatin) 20 Mg Tab 20 MG PO HS for Cholesterol Management, #30 TAB 0 Refills Pilocarpine (Pilocarpine) 5 Mg Tab 5 MG PO Q6HR for Dry Mouth, #120 TAB 0 Refills Warfarin (Warfarin) 2.5 Mg Tab 2.5 MG PO DAILY for Blood Clot Prevention, #30 TAB 0 Refills Waqar López MD Dec 11, 2017 12:18
== END 2017-12-11 15:56 | DRG 482 ==
LOC: NEPC 12:45 → NEDA 16:30 → N07A 21:49
PROVIDERS: ADMIT Internal Medicine; ATTEND Internal Medicine
PROC: 30233N1 Transfusion of Nonautologous Red Blood Cells into Peripheral Vein, Percutaneous Approach (ICD-10-PCS; 2017-12-08)
PROC: 0QS706Z Reposition Left Upper Femur with Intramedullary Internal Fixation Device, Open Approach (ICD-10-PCS; principal; 2017-12-08 08:22)
DX: S72.142A Displaced intertrochanteric fracture of left femur, initial encounter for closed fracture (principal); S99.922A Unspecified injury of left foot, initial encounter; I48.91 Unspecified atrial fibrillation; N18.3 Chronic kidney disease, stage 3 (moderate); E86.0 Dehydration; D64.9 Anemia, unspecified; E78.5 Hyperlipidemia, unspecified; R79.1 Abnormal coagulation profile; I95.2 Hypotension due to drugs; T44.7X5A Adverse effect of beta-adrenoreceptor antagonists, initial encounter; E78.00 Pure hypercholesterolemia, unspecified; W01.0XXA Fall on same level from slipping, tripping and stumbling without subsequent striking against object, initial encounter; X50.1XXA Overexertion from prolonged static or awkward postures, initial encounter; Z85.05 Personal history of malignant neoplasm of liver; Z79.01 Long term (current) use of anticoagulants; Z85.51 Personal history of malignant neoplasm of bladder; Z92.3 Personal history of irradiation
CPT/HCPCS: 36430; 70450; 71045; 73502; 73552; 76000; 76937; 80048; 80053; 82306; 83735; 84443; 85014; 85018; 85025; 85610; 85730; 86850; 86900; 86901; 86920; 93005; 96361; 96374; 96375; C1713; J0330; J0690; J1580; J1650; J2270; J2370; J2405; J3010; J3370; J7030; J7040; J7050; P9016

== ENCOUNTER 2018-02-28 09:12 | Inpatient (IN) ==
--- NOTE | 2018-02-28 10:37 | ED ---
HPI General Chief complaint: Urogenital-Male Stated complaint: ADM PAIN/EVAC Time Seen by Provider: 02/28/18 10:08 Source: patient History of Present Illness HPI narrative: 78yo M with PMH of bilateral obstructing stones in 09/2017, cystectomy for suspected bladder cancer was sent to the ED by his urologist Dr. Ervin. As per Dr. Ervin, he was seen about a week ago and had creatinine of 5.5 in outpatient lab on 02/20/18. He is concern about obstruction again since he is in renal failure again. Pt denies any fever, chest pain, sob, n/v, abdominal pain, focal weakness or numbness. He does have bilateral groin pain for a few days. Related Data Home Medications Medication Instructions Recorded Confirmed amino acids 3%-lytes-glycerin 5 mg 02/28/18 [Procalamine 3%] ciprofloxacin HCl [Cipro] 500 mg PO BID 02/28/18 02/28/18 [id number] 02/28/18 Allergies Allergy/AdvReac Type Severity Reaction Status Date / Time crab Allergy Intermediate Rash Verified 12/08/17 07:56 Review of Systems ROS Unobtainable All other systems reviewed negative except as stated in HPI [facility] Medical History Medical History COPD (chronic obstructive pulmonary disease) (Acute) History of Clostridium difficile infection (Acute) Kidney stones (Acute) Prostate cancer (Acute) Renal failure (Acute) Social History Social History Substance History: No History of Abuse Second Hand Smoke Exposure: No Smoking Status: Former smoker Tobacco Type: Cigarettes How Often Do You Have a Drink Containing Alcohol: Never Recent Travel in [facility] within the Last 8 Weeks: No Recent Out of Country Travel within the Last 8 Weeks: No Exam Narrative Exam Narrative: GENERAL: 78yo M not in distress. SKIN: Focused skin assessment warm/dry. HEAD: Atraumatic. Normocephalic. EYES: Pupils equal and round. No scleral icterus. No injection or drainage. ENT: No nasal bleeding or discharge. Mucous membranes pink and moist. NECK: Trachea midline. No JVD. CARDIOVASCULAR: Regular rate and rhythm. No murmur appreciated. RESPIRATORY: No accessory muscle use. Clear to auscultation. Breath sounds equal bilaterally. GASTROINTESTINAL: Abdomen soft, non-tender, nondistended. Urostomy bag in place draining yellow urine. : +TTP bilateral groin. MUSCULOSKELETAL: No obvious deformities. No clubbing. No cyanosis. No edema. NEUROLOGICAL: Awake and alert. No obvious cranial nerve deficits. Motor grossly within normal limits. Normal speech. PSYCHIATRIC: Appropriate mood and affect; insight and judgment normal. Course Hospital Course: 78 y.o M is well known to Urology service for his h/o Bladder cancer, s/p cystectomy, ileal conduit and chemoradiation many years ago at [facility]. He also has h /o recurrent UTIs and b/l obstructing renal stones. He had right nep-u tube in the past which came out on its own in september. He was seen at the office at that time and wanted to try to stay without any reinsertion of tubes, so recommended blood work and imaging studies but diid not do them and was lost for f/u. he was seen recently at the office, found to have an infection and b/l renal obstruction due to his stones as well as SANDI up to 5, he also has ?c diff as per family, so he was recommended to go to ER for evaluation and nephrostomy placement which he denied until his son came to visit him today and took him to ER. Urostomy is working well urine is cloudy yellow. Cr is 3.9 now Initial Documented Vital Signs Temperature 97.8 F 02/28/18 10:58 Pulse Rate 81 02/28/18 10:58 Respiratory Rate 18 02/28/18 10:58 Blood Pressure 86/51 L 02/28/18 10:58 Pulse Oximetry 98 02/28/18 10:58 Last Documented Vital Signs Temperature 96.9 F L 03/01/18 16:00 Pulse Rate 80 03/01/18 16:30 Respiratory Rate 18 03/01/18 16:30 Blood Pressure 95/68 L 03/01/18 16:30 Pulse Oximetry 99 03/01/18 16:30 Critical Care Time Critical Care Time: Yes Total Critical Care Time: 45 Attestation: Aggregate critical care time was 45 minutes. Time to perform other separately billable procedures was not included in the critical care time. My time did not include minutes spent treating any other patients simultaneously or on activities that did not directly contribute to the patient's treatment. The services I provided to this patient were to treat and/or prevent clinically significant deterioration that could result in: cardiovascular collapse or . I provided critical care services requiring my management, as noted below: Chart data review, documentation time, medication orders and management, vital sign assessments/reviewing monitor data, ordering and reviewing lab tests, ordering and interpreting/reviewing x-rays and diagnostic studies, care of the patient and discussion of the patient with the admitting physicians. Medical Decision Making MDM Narrative Medical decision making narrative: 78yo M was sent in by his urologist Dr. Ervin for work up of his renal failure. I discussed with Dr. Ervin who recommends a CT a/p- to evaluate for obstructing stones again. CT a/p- showed obstructing calculus left proximal ureter in the region of the UPJ measuring 9mm. Bilateral nonobstructing renal calculi. Status post cystectomy with right lower quadrant urostomy. UA showed positive nitrates. Pt given ceftriaxone. I discussed findings with Dr. Ervin who recommends IR for nephrostomy tube, admission to hospitalist and said the urology [facility] will see the patient. Also agrees with antibiotics. Pt's blood pressure is low, although he said that it is always low, will still give NS IVF. Urology came to see patient and reviewed the images. Recommend IR for bilateral nephrostomy tube. Discussed with interventional radiologist Dr. Oliva and he will take pt to IR now. Labs reviewed, leukocytosis at 13.5. H/H low at 10.2/31.6. This is at baseline compare to 01/09/18. BUN/creatinine is elevated at 124/3.94. This is more elevated than BUN/creatinine of 69/2.48 on 01/09/18. Discussed with Dr. Elizabeth and accepted to his service. Pt returned from the IR with bilateral nephrostomy tube. My nurse noticed that pt's heart rate went to the 150s and called the admitted physician. He would like me to review the EKG and give lopressor as I see fit. EKG reviewed and showed afib with RVR at 142bpm. Normal axis. Narrow QRS. Right AC IV infiltrated so new 20 gauge placed in left AC. Pt given lopressor 2.5mg since BP is good at 142/70. Pt does feel a little sob. Denies any chest pain. Pt reevaluated at bedside and HR is now in the 90s. Pt is feeling better. Will continue to monitor. Pt returned from IR with bilateral nephrostomy tubes. Pt's nurse called me because his heart rate is elevated. Differential Diagnosis Differential Diagnosis: Acute on chronic renal failure secondary to obstruction Lab Data Result diagrams: 03/01/18 15:00 03/01/18 09:10 Lab Results 02/28/18 02/28/18 02/28/18 Range/Units 11:12 12:18 12:18 WBC 13.5 H (4.0-11.0) th/mm3 RBC 3.62 L (4.50-5.90) mil/mm3 Hgb 10.2 L (13.0-17.0) gm/dL Hct 31.6 L (39.0-51.0) % MCV 87.5 (80.0-100.0) fL MCH 28.1 (27.0-34.0) pg MCHC 32.1 (32.0-36.0) % RDW 18.2 H (11.6-17.2) % Plt Count 350 (150-450) th/mm3 MPV 8.6 (7.0-11.0) fL Prelim Diff (Auto) Neut % (Auto) 86.6 H (16.0-70.0) % Lymph % (Auto) 6.8 L (9.0-44.0) % Day % (Auto) 5.6 (0.0-8.0) % Eos % (Auto) 0.8 (0.0-4.0) % Baso % (Auto) 0.2 (0.0-2.0) % Neut # (Auto) 11.7 H (1.8-7.7) th/mm3 Lymph # (Auto) 0.9 L (1.0-4.8) th/mm3 Day # (Auto) 0.8 (0.0-0.9) th/mm3 Eos # (Auto) 0.1 (0.0-0.4) th/mm3 Baso # (Auto) 0.0 (0.0-0.2) th/mm3 WBC Differential . Seg Neuts % (Manual) (16-70) % Band Neuts % (Manual) (0-6) % Lymphocytes % (Manual) (9-44) % Monocytes % (Manual) (0-8) % Abs Neuts (Manual) (1.8-7.7) th/mm3 Differential Comment Auto diff final Platelet Estimate (Normal) Platelet Morphology (Normal) Acanthocytes (Spur) (None) PT (9.8-11.6) sec INR Ratio APTT (24.3-30.1) sec Sodium 141 (136-145) meq/L Potassium 3.7 (3.5-5.1) meq/L Chloride 113 H (98-107) meq/L Carbon Dioxide 14.0 L (21.0-32.0) meq/L Anion Gap 14 (5-15) meq/L BUN 124 H (7-18) mg/dL Creatinine 3.94 H (0.60-1.30) mg/dL Estimated GFR 15 L (>89) mL/min Random Glucose 103 (74-106) mg/dL Lactic Acid (0.4-2.0) mmol/L Calcium 8.4 L (8.5-10.1) mg/dL Prot Corrected Calcium (8.5-10.1) mg/dL Phosphorus (2.5-4.9) mg/dL Magnesium (1.5-2.5) mg/dL Total Bilirubin 0.5 (0.2-1.0) mg/dL AST 16 (15-37) U/L ALT 23 (12-78) U/L Alkaline Phosphatase 101 (45-117) U/L Total Protein 7.0 (6.4-8.2) g/dL Albumin 2.8 L (3.4-5.0) g/dL Urine Color May (Yellw/Straw) Urine Clarity Turbid H (Clear) Urine pH 9.0 H (5.0-8.5) Ur Specific [place] 1.011 (1.002-1.035) Urine Protein 100 H (Neg-Trace) mg/dL Urine Glucose (UA) Negative (Negative) mg/dL Urine Ketones Negative (Negative) mg/dL Urine Occult Blood Negative (Negative) Urine Nitrate Negative (Negative) Urine Bilirubin Negative (Negative) Urine Urobilinogen Less than 2 (Less than 2) mg/dL Ur Leukocyte Esterase Large H (Negative) Urine RBC 19 H (0-3) /hpf Urine WBC 31 H (0-5) /hpf Ur Squamous Epith Cells 1 (0-5) /hpf Triple Phos Crystals Moderate H (None) /hpf Amorphous Sediment Occasional H (None) /hpf Urine Bacteria Many H (None) /hpf Urine Mucus Few H (Occasional) /lpf Micro UA Comment Culture indicated Urine Culture Comments Culture indicated Nasal Screen MRSA (PCR) (Negative) Blood Type Blood Type Confirm Antibody Screen MTS Gel Crossmatch 02/28/18 02/28/18 03/01/18 Range/Units 13:00 20:00 09:10 WBC 36.8 H D (4.0-11.0) th/mm3 RBC 2.50 L (4.50-5.90) mil/mm3 Hgb 7.2 L D (13.0-17.0) gm/dL Hct 21.9 L (39.0-51.0) % MCV 87.6 (80.0-100.0) fL MCH 28.6 (27.0-34.0) pg MCHC 32.7 (32.0-36.0) % RDW 18.0 H (11.6-17.2) % Plt Count 205 D (150-450) th/mm3 MPV 8.2 (7.0-11.0) fL Prelim Diff (Auto) Slide review pending Neut % (Auto) 95.7 H (16.0-70.0) % Lymph % (Auto) 0.6 L (9.0-44.0) % Day % (Auto) 3.6 (0.0-8.0) % Eos % (Auto) 0.0 (0.0-4.0) % Baso % (Auto) 0.1 (0.0-2.0) % Neut # (Auto) 35.2 H (1.8-7.7) th/mm3 Lymph # (Auto) 0.2 L (1.0-4.8) th/mm3 Day # (Auto) 1.3 H (0.0-0.9) th/mm3 Eos # (Auto) 0.0 (0.0-0.4) th/mm3 Baso # (Auto) 0.0 (0.0-0.2) th/mm3 WBC Differential Manual diff final Seg Neuts % (Manual) 71 H (16-70) % Band Neuts % (Manual) 25 H (0-6) % Lymphocytes % (Manual) 2 L (9-44) % Monocytes % (Manual) 2 (0-8) % Abs Neuts (Manual) 35.3 H (1.8-7.7) th/mm3 Differential Comment . Platelet Estimate Normal (Normal) Platelet Morphology Normal (Normal) Acanthocytes (Spur) 2+ H (None) PT 11.7 H (9.8-11.6) sec INR 1.2 Ratio APTT 32.9 H (24.3-30.1) sec Sodium (136-145) meq/L Potassium (3.5-5.1) meq/L Chloride (98-107) meq/L Carbon Dioxide (21.0-32.0) meq/L Anion Gap (5-15) meq/L BUN (7-18) mg/dL Creatinine (0.60-1.30) mg/dL Estimated GFR (>89) mL/min Random Glucose (74-106) mg/dL Lactic Acid (0.4-2.0) mmol/L Calcium (8.5-10.1) mg/dL Prot Corrected Calcium (8.5-10.1) mg/dL Phosphorus (2.5-4.9) mg/dL Magnesium (1.5-2.5) mg/dL Total Bilirubin (0.2-1.0) mg/dL AST (15-37) U/L ALT (12-78) U/L Alkaline Phosphatase (45-117) U/L Total Protein (6.4-8.2) g/dL Albumin (3.4-5.0) g/dL Urine Color (Yellw/Straw) Urine Clarity (Clear) Urine pH (5.0-8.5) Ur Specific [place] (1.002-1.035) Urine Protein (Neg-Trace) mg/dL Urine Glucose (UA) (Negative) mg/dL Urine Ketones (Negative) mg/dL Urine Occult Blood (Negative) Urine Nitrate (Negative) Urine Bilirubin (Negative) Urine Urobilinogen (Less than 2) mg/dL Ur Leukocyte Esterase (Negative) Urine RBC (0-3) /hpf Urine WBC (0-5) /hpf Ur Squamous Epith Cells (0-5) /hpf Triple Phos Crystals (None) /hpf Amorphous Sediment (None) /hpf Urine Bacteria (None) /hpf Urine Mucus (Occasional) /lpf Micro UA Comment Urine Culture Comments Nasal Screen MRSA (PCR) Mrsa detected (Negative) Blood Type Blood Type Confirm Antibody Screen MTS Gel Crossmatch 03/01/18 03/01/18 03/01/18 Range/Units 09:10 09:10 10:44 WBC (4.0-11.0) th/mm3 RBC (4.50-5.90) mil/mm3 Hgb (13.0-17.0) gm/dL Hct (39.0-51.0) % MCV (80.0-100.0) fL MCH (27.0-34.0) pg MCHC (32.0-36.0) % RDW (11.6-17.2) % Plt Count (150-450) th/mm3 MPV (7.0-11.0) fL Prelim Diff (Auto) Neut % (Auto) (16.0-70.0) % Lymph % (Auto) (9.0-44.0) % Day % (Auto) (0.0-8.0) % Eos % (Auto) (0.0-4.0) % Baso % (Auto) (0.0-2.0) % Neut # (Auto) (1.8-7.7) th/mm3 Lymph # (Auto) (1.0-4.8) th/mm3 Day # (Auto) (0.0-0.9) th/mm3 Eos # (Auto) (0.0-0.4) th/mm3 Baso # (Auto) (0.0-0.2) th/mm3 WBC Differential Seg Neuts % (Manual) (16-70) % Band Neuts % (Manual) (0-6) % Lymphocytes % (Manual) (9-44) % Monocytes % (Manual) (0-8) % Abs Neuts (Manual) (1.8-7.7) th/mm3 Differential Comment Platelet Estimate (Normal) Platelet Morphology (Normal) Acanthocytes (Spur) (None) PT (9.8-11.6) sec INR Ratio APTT (24.3-30.1) sec Sodium 149 H (136-145) meq/L Potassium 3.5 (3.5-5.1) meq/L Chloride 125 H D (98-107) meq/L Carbon Dioxide 9.3 L (21.0-32.0) meq/L Anion Gap 15 (5-15) meq/L BUN 103 H (7-18) mg/dL Creatinine 3.08 H (0.60-1.30) mg/dL Estimated GFR 20 L (>89) mL/min Random Glucose 84 (74-106) mg/dL Lactic Acid 1.0 (0.4-2.0) mmol/L Calcium 7.0 L* D (8.5-10.1) mg/dL Prot Corrected Calcium 8.3 L (8.5-10.1) mg/dL Phosphorus 3.9 (2.5-4.9) mg/dL Magnesium 1.6 (1.5-2.5) mg/dL Total Bilirubin 0.3 (0.2-1.0) mg/dL AST 8 L (15-37) U/L ALT 13 (12-78) U/L Alkaline Phosphatase 68 (45-117) U/L Total Protein 4.7 L D (6.4-8.2) g/dL Albumin 1.7 L D (3.4-5.0) g/dL Urine Color (Yellw/Straw) Urine Clarity (Clear) Urine pH (5.0-8.5) Ur Specific [place] (1.002-1.035) Urine Protein (Neg-Trace) mg/dL Urine Glucose (UA) (Negative) mg/dL Urine Ketones (Negative) mg/dL Urine Occult Blood (Negative) Urine Nitrate (Negative) Urine Bilirubin (Negative) Urine Urobilinogen (Less than 2) mg/dL Ur Leukocyte Esterase (Negative) Urine RBC (0-3) /hpf Urine WBC (0-5) /hpf Ur Squamous Epith Cells (0-5) /hpf Triple Phos Crystals (None) /hpf Amorphous Sediment (None) /hpf Urine Bacteria (None) /hpf Urine Mucus (Occasional) /lpf Micro UA Comment Urine Culture Comments Nasal Screen MRSA (PCR) (Negative) Blood Type A Positive Blood Type Confirm Antibody Screen Negative MTS Gel Crossmatch See Detail 03/01/18 03/01/18 Range/Units 11:55 15:00 WBC (4.0-11.0) th/mm3 RBC (4.50-5.90) mil/mm3 Hgb 10.0 L D (13.0-17.0) gm/dL Hct 30.6 L (39.0-51.0) % MCV (80.0-100.0) fL MCH (27.0-34.0) pg MCHC (32.0-36.0) % RDW (11.6-17.2) % Plt Count (150-450) th/mm3 MPV (7.0-11.0) fL Prelim Diff (Auto) Neut % (Auto) (16.0-70.0) % Lymph % (Auto) (9.0-44.0) % Day % (Auto) (0.0-8.0) % Eos % (Auto) (0.0-4.0) % Baso % (Auto) (0.0-2.0) % Neut # (Auto) (1.8-7.7) th/mm3 Lymph # (Auto) (1.0-4.8) th/mm3 Day # (Auto) (0.0-0.9) th/mm3 Eos # (Auto) (0.0-0.4) th/mm3 Baso # (Auto) (0.0-0.2) th/mm3 WBC Differential Seg Neuts % (Manual) (16-70) % Band Neuts % (Manual) (0-6) % Lymphocytes % (Manual) (9-44) % Monocytes % (Manual) (0-8) % Abs Neuts (Manual) (1.8-7.7) th/mm3 Differential Comment Platelet Estimate (Normal) Platelet Morphology (Normal) Acanthocytes (Spur) (None) PT (9.8-11.6) sec INR Ratio APTT (24.3-30.1) sec Sodium (136-145) meq/L Potassium (3.5-5.1) meq/L Chloride (98-107) meq/L Carbon Dioxide (21.0-32.0) meq/L Anion Gap (5-15) meq/L BUN (7-18) mg/dL Creatinine (0.60-1.30) mg/dL Estimated GFR (>89) mL/min Random Glucose (74-106) mg/dL Lactic Acid (0.4-2.0) mmol/L Calcium (8.5-10.1) mg/dL Prot Corrected Calcium (8.5-10.1) mg/dL Phosphorus (2.5-4.9) mg/dL Magnesium (1.5-2.5) mg/dL Total Bilirubin (0.2-1.0) mg/dL AST (15-37) U/L ALT (12-78) U/L Alkaline Phosphatase (45-117) U/L Total Protein (6.4-8.2) g/dL Albumin (3.4-5.0) g/dL Urine Color (Yellw/Straw) Urine Clarity (Clear) Urine pH (5.0-8.5) Ur Specific [place] (1.002-1.035) Urine Protein (Neg-Trace) mg/dL Urine Glucose (UA) (Negative) mg/dL Urine Ketones (Negative) mg/dL Urine Occult Blood (Negative) Urine Nitrate (Negative) Urine Bilirubin (Negative) Urine Urobilinogen (Less than 2) mg/dL Ur Leukocyte Esterase (Negative) Urine RBC (0-3) /hpf Urine WBC (0-5) /hpf Ur Squamous Epith Cells (0-5) /hpf Triple Phos Crystals (None) /hpf Amorphous Sediment (None) /hpf Urine Bacteria (None) /hpf Urine Mucus (Occasional) /lpf Micro UA Comment Urine Culture Comments Nasal Screen MRSA (PCR) (Negative) Blood Type Blood Type Confirm A Positive Antibody Screen MTS Gel Crossmatch Imaging Data Radiologist's impression: ITS Impressions Chest X-Ray 02/28/18 00:00 CONCLUSION: No acute disease. Abdomen/Pelvis CT 02/28/18 10:26 CONCLUSION: 1. Obstructing calculus left proximal ureter in the region of the UPJ measuring 9 mm. 2. Bilateral nonobstructing renal calculi. 3. Cholelithiasis. 4. Status post cystectomy with right lower quadrant urostomy. 5. Extensive diverticulosis without diverticulitis. 6. Infrarenal abdominal aortic aneurysm measuring 3.5 cm. Nephrostomy 02/28/18 15:20 CONCLUSION: 1. Uncomplicated bilateral nephrostomy tube placement as above. Abdomen/Pelvis CT 03/01/18 10:07 CONCLUSION: 1. Bilateral percutaneous nephrostomy tubes. 2. No retroperitoneal hemorrhage. 3. Bilateral nonobstructing renal calculi. 4. Infrarenal abdominal aortic aneurysm measures 3.6 cm. 5. Cholelithiasis. 6. Small pleural effusions and bibasilar atelectasis. 7. Diverticulosis without diverticulitis. Discharge Plan Discharge Disposition Patient Disposition: 30 Still Patient Physicians Team ED Provider: Alecia Escobar Primary Care Provider: UNKNOWN, Attending Provider: Ta Florez Other Providers: Joss Quinonez Alexander S Status ED Status: Left Department Discharge Information Discharge Date/Time: 02/28/18 19:39
[2018-02-28 12:00] LABS: Amorphous Sediment,Urine Occasional /hpf; Bacteria,Urine Many /hpf; Bilirubin,Urine Negative (Negative); Clarity,Urine Turbid (Clear); Color,Urine Amber (Yellw/Straw); Glucose,Urine (UA) Negative (Negative); Leukocyte Esterase,Urine Large (Negative); Mucus,Urine Few /lpf (Occasional); Nitrite,Urine Negative (Negative); Specific Gravity,Urine 1.011 (1.002-1.035); Squamous Epithelial Cell,Urine 1 /hpf (0-5); Triple Phosphate Crystal,Urine Moderate /hpf
[2018-02-28 12:44] LABS: Baso % (Auto) 0.2 % (0.0-2.0); Eos # (Auto) 0.1 th/mm3 (0.0-0.4); Eos % (Auto) 0.8 % (0.0-4.0); Hematocrit 31.6 % (39.0-51.0); Hemoglobin 10.2 gm/dL (13.0-17.0); Lymph # (Auto) 0.9 th/mm3 (1.0-4.8); Lymph % (Auto) 6.8 % (9.0-44.0); Mean Corpuscular HGB Conc 32.1 % (32.0-36.0); Mean Corpuscular Hemoglobin 28.1 pg (27.0-34.0); Mean Corpuscular Volume 87.5 fL (80.0-100.0); Mean Platelet Volume 8.6 fL (7.0-11.0); Mono # (Auto) 0.8 th/mm3 (0.0-0.9); Mono % (Auto) 5.6 % (0.0-8.0); Neut # (Auto) 11.7 th/mm3 (1.8-7.7); Neut % (Auto) 86.6 % (16.0-70.0); Platelet Count 350 th/mm3 (150-450); Red Blood Count 3.62 mil/mm3 (4.50-5.90); Red Cell Distribution Width 18.2 % (11.6-17.2); White Blood Count 13.5 th/mm3 (4.0-11.0)
[2018-02-28] MEDS ORDERED: Sod Chloride 0.9% Inj 1,000 ML IV.SIG ONE ×3 (13:04→17:32)
[2018-02-28 13:11] LABS: Alanine Aminotransferase 23 U/L (12-78); Albumin 2.8 g/dL (3.4-5.0); Anion Gap 14 meq/L (5-15); Aspartate Aminotransferase 16 U/L (15-37); Blood Urea Nitrogen 124 mg/dL (7-18); Calcium 8.4 mg/dL (8.5-10.1); Chloride 113 meq/L (98-107); Glomerular Filtration Rate 15 mL/min (>89); Glucose,Random 103 mg/dL (74-106); Potassium 3.7 meq/L (3.5-5.1); Sodium 141 meq/L (136-145)
[2018-02-28 13:13] LABS: Alkaline Phosphatase 101 U/L (45-117)
[2018-02-28 13:36] LABS: Activated Partial Thrombo Time 32.9 sec (24.3-30.1); INR 1.2 Ratio; Prothrombin Time 11.7 sec (9.8-11.6)
--- NOTE | 2018-02-28 14:31 | ED ---
Review of Systems All other systems reviewed negative except as stated in HPI Physical Exam - General General appearance: alert, in no apparent distress - Head Head exam: atraumatic - Eye Eye exam: Present: normal appearance - ENT ENT exam: Present: normal exam - Neck Neck exam: Present: normal inspection - Chest Chest inspection: Present: normal inspection - Respiratory Respiratory exam: Present: normal lung sounds bilaterally - Cardiovascular Cardiovascular exam: Present: regular rate - Abdominal Exam Abdominal exam: Present: soft, other (+ Urostomy ) - exam: Present: normal inspection - Neurological Exam Neurological exam: Present: alert, oriented X3 - Psychiatric Psychiatric exam: Present: normal affect, normal mood - Skin Skin exam: Present: warm, dry Course Course Narrative: 78 y.o M is well known to Urology service for his h/o Bladder cancer, s/p cystectomy, ileal conduit and chemoradiation many years ago at [place]. He also has h /o recurrent UTIs and b/l obstructing renal stones. He had right nep-u tube in the past which came out on its own in september. He was seen at the office at that time and wanted to try to stay without any reinsertion of tubes, so recommended blood work and imaging studies but diid not do them and was lost for f/u. he was seen recently at the office, found to have an infection and b/l renal obstruction due to his stones as well as SANDI up to 5, he also has ?c diff as per family, so he was recommended to go to ER for evaluation and nephrostomy placement which he denied until his son came to visit him today and took him to ER. Urostomy is working well urine is cloudy yellow. Cr is 3.9 now Initial Documented Vital Signs Temperature 97.8 F 02/28/18 10:58 Pulse Rate 81 02/28/18 10:58 Respiratory Rate 18 02/28/18 10:58 Blood Pressure 86/51 L 02/28/18 10:58 Pulse Oximetry 98 02/28/18 10:58 Last Documented Vital Signs Temperature 97.8 F 02/28/18 10:58 Pulse Rate 71 02/28/18 14:19 Respiratory Rate 18 02/28/18 14:19 Blood Pressure 87/57 L 02/28/18 14:19 Pulse Oximetry 99 02/28/18 14:19 Assessment and Plan - Plan 78 y.o M with above mentioned history CT scan showed b/l obstructing stones and hydro. Cr is 3.9 - Continue care as per primary team - Treat infection based on C&S - Evaluate for possible C diff - Needs b/l PCNs placement by IR - Pt to f/u with urology Dr Lynch as outpt after d/c to discuss further management of his stones Discussed with Dr PEREZ at ER Discussed with Dr Lynch attending who agrees with this plan (Ramón Sinha)
[2018-02-28] MEDS ORDERED: fentaNYL Citrate Inj 250 MCG/5 ML Ampul ONE (16:20)
--- NOTE | 2018-02-28 17:26 | P.HP ---
History of Present Illness Primary Care Physician: UNKNOWN History of Present Illness: 78 y.o white male being admitted for sepsis secondary to obstructive uropathy . Patient was in his usual state of health until about a few days ago began experiencing bilateral suprapubic abdominal pain as well as having some diarrhea. He went to his urologist today and was found to be in acute renal failure as well as per urology notes "bilateral renal obstruction due to stones ". He was instructed to proceed to the emergency department where a CT abdomen was done which showed obstructive uropathy with the stone on the right side at the UPJ junction. Creatinine in the ER was 3.9. Patient was given NS bolus, Rocephin in emergency urology consultation and IR consultation were requested. White count was 13,000 and pulse is over 90. BP is in 80s systolic in ER. I was able to interview the patient prior to his procedure downstairs and interventional radiology. He was in the pronated position. Inpatient Certification: I certify that the inpatient services were ordered in accordance with Medicare regulations governing the order. This includes certification that hospital inpatient services are reasonable and necessary and in the case of services not specified as inpatient-only under 42 CFR 419.22(n), that they are appropriately provided as inpatient services in accordance to with the 2-midnight benchmark under 43 CFR 412.3(e) Estimated Total Length of Stay (Days): 2 Plans for Post Hospital Care: Other acute care hospital Review of Systems All other systems reviewed negative except as stated in HPI [facility] - History History Provided By: Patient, Family Member - Medical History Medical History: Medical History (Last Reviewed 03/05/18 @ 14:50 by Cesia Mejia) COPD (chronic obstructive pulmonary disease) H/O reduction of nasal fracture History of Clostridium difficile infection Intertrochanteric fracture of left hip Kidney stones Nasal bones, closed fracture Prostate cancer Renal failure Subdural hematoma Trochanteric fracture of femur - Surgical History Surgical History: Surgical History (Last Updated 03/05/18 @ 13:24 by Saba Hunt MD) History of urostomy Nephrostomy status - Tobacco History Smoking Status: Former smoker (Patient stop smoking in 1984) - Alcohol History How Often Do You Have a Drink Containing Alcohol: Never - Substance Use History Substance History: No History of Abuse - Travel History Recent Travel in the [place] Within the Last 8 Weeks: No Recent Travel Out of the Country Within the Last 8 Weeks: No - Immunization History Tetanus Immunization: Unsure Hx Influenza Vaccine This Season: No Medications and Allergies Active Medications: Active Medications Sodium Chloride (Ns Inj) 1,000 mls @ 100 mls/hr IV.CONT .Q10H TRAVIS Sodium Chloride (Ns Inj) 1,000 mls @ 0 mls/hr IV.SIG BOLUS ONE Stop: 02/28/18 17:16 Sodium Chloride (Ns Flush) 2 ml IV.FLUSH BID TRAVIS Sodium Chloride (Ns Flush) 2 ml IV.FLUSH PRN PRN PRN Reason: FLUSH AFTER USING IV ACCESS Allergies Allergy/AdvReac Type Severity Reaction Status Date / Time crab Allergy Intermediate Rash Verified 12/08/17 07:56 Home Medications Medication Instructions Recorded Confirmed Type amino acids 3%-lytes-glycerin 5 mg 02/28/18 History [Procalamine 3%] ciprofloxacin HCl [Cipro] 500 mg PO BID 02/28/18 02/28/18 History [id number] 02/28/18 History Exam Vital signs: Vital Signs 02/28/18 10:58 02/28/18 12:31 02/28/18 14:19 Temperature 97.8 F Pulse Rate 81 85 71 Respiratory Rate 18 18 18 Blood Pressure 86/51 L 88/63 L 87/57 L Pulse Oximetry 98 100 99 Intake & Output 02/27/18 02/28/18 02/28/18 18:59 06:59 18:59 Weight 54.431 kg Narrative: Overall exam was limited due to the patient's positioning on the procedure table while in a pronated position. VS: afebrile GENERAL: Well-nourished elderly white male, lying on procedure table, no acute distress SKIN: Warm and dry. EYES: No scleral icterus. No injection or drainage. ENT: Normocephalic, atraumatic CARDIOVASCULAR: Unable to auscultate the anterior chest to the patient's position, pulse apparently is regular is faintly heard over the right second intercostal space RESPIRATORY: No accessory muscle use. Clear to auscultation. Breath sounds equal bilaterally. GASTROINTESTINAL: Abdomen is examined from one side appears to be soft, nondistended, nondistended : Unable to examine due to the pronated position, Estevez catheter appears to be protruding out from underneath the patient. Has no CVA tenderness bilaterally. Extremities: No clubbing, cyanosis, or edema. No obvious deformities. MUSCULOSKELETAL: adequate muscle bulk and tone for age and habitus NEUROLOGICAL: Awake and alert. No obvious cranial nerve deficits. No facial droop nor slurred speech noted. PSYCHIATRIC: Appropriate mood and affect; insight and judgment normal. Results - Labs CBC & Chem 7: 03/13/18 07:45 03/14/18 04:48 Labs: Laboratory Results - last 24 hr 02/28/18 02/28/18 02/28/18 11:12 12:18 12:18 WBC 13.5 H RBC 3.62 L Hgb 10.2 L Hct 31.6 L MCV 87.5 MCH 28.1 MCHC 32.1 RDW 18.2 H Plt Count 350 MPV 8.6 Neut % (Auto) 86.6 H Lymph % (Auto) 6.8 L Cost[place] % (Auto) 5.6 Eos % (Auto) 0.8 Baso % (Auto) 0.2 Neut # (Auto) 11.7 H Lymph # (Auto) 0.9 L [place] # (Auto) 0.8 Eos # (Auto) 0.1 Baso # (Auto) 0.0 WBC Differential . Differential Comment Auto diff final PT INR APTT Sodium 141 Potassium 3.7 Chloride 113 H Carbon Dioxide 14.0 L Anion Gap 14 BUN 124 H Creatinine 3.94 H Estimated GFR 15 L Random Glucose 103 Calcium 8.4 L Total Bilirubin 0.5 AST 16 ALT 23 Alkaline Phosphatase 101 Total Protein 7.0 Albumin 2.8 L Urine Color May Urine Clarity Turbid H Urine pH 9.0 H Ur Specific Ribera 1.011 Urine Protein 100 H Urine Glucose (UA) Negative Urine Ketones Negative Urine Occult Blood Negative Urine Nitrate Negative Urine Bilirubin Negative Urine Urobilinogen Less than 2 Ur Leukocyte Esterase Large H Urine RBC 19 H Urine WBC 31 H Ur Squamous Epith Cells 1 Triple Phos Crystals Moderate H Amorphous Sediment Occasional H Urine Bacteria Many H Urine Mucus Few H Micro UA Comment Culture indicated Urine Culture Comments Culture indicated 02/28/18 13:00 WBC RBC Hgb Hct MCV MCH MCHC RDW Plt Count MPV Neut % (Auto) Lymph % (Auto) Cost[place] % (Auto) Eos % (Auto) Baso % (Auto) Neut # (Auto) Lymph # (Auto) [place] # (Auto) Eos # (Auto) Baso # (Auto) WBC Differential Differential Comment PT 11.7 H INR 1.2 APTT 32.9 H Sodium Potassium Chloride Carbon Dioxide Anion Gap BUN Creatinine Estimated GFR Random Glucose Calcium Total Bilirubin AST ALT Alkaline Phosphatase Total Protein Albumin Urine Color Urine Clarity Urine pH Ur Specific Ribera Urine Protein Urine Glucose (UA) Urine Ketones Urine Occult Blood Urine Nitrate Urine Bilirubin Urine Urobilinogen Ur Leukocyte Esterase Urine RBC Urine WBC Ur Squamous Epith Cells Triple Phos Crystals Amorphous Sediment Urine Bacteria Urine Mucus Micro UA Comment Urine Culture Comments - Imaging Impressions Abdomen/Pelvis CT 02/28/18 10:26 CONCLUSION: 1. Obstructing calculus left proximal ureter in the region of the UPJ measuring 9 mm. 2. Bilateral nonobstructing renal calculi. 3. Cholelithiasis. 4. Status post cystectomy with right lower quadrant urostomy. 5. Extensive diverticulosis without diverticulitis. 6. Infrarenal abdominal aortic aneurysm measuring 3.5 cm. Caprini VTE Risk Assessment Caprini VTE Risk Assessment: Moderate/High Risk (score >= 2) VTE Pharmacological Exception Reason: High risk for bleeding Caprini Risk Assessment Model: Point Value = 1 Point Value = 2 Point Value = 3 Point Value = 5 Age 41-60 Minor surgery BMI > 25 kg/m2 Swollen legs Varicose veins or History of unexplained or recurrent spontaneous Oral contraceptives or hormone replacement Sepsis (< 1 month) Serious lung disease, including pneumonia (< 1 month) Abnormal pulmonary function Acute myocardial infarction Congestive heart failure (< 1 month) History of inflammatory bowel disease Medical patient at bed rest Age 61-74 Arthroscopic surgery Major open surgery (> 45 min) Laparoscopic surgery (> 45 min) Malignancy Confined to bed (> 72 hours) Immobilizing plaster cast Central venous access Age >= 75 History of VTE Family history of VTE Factor V Leiden Prothrombin [id number] Lupus anticoagulant Anticardiolipin antibodies Elevated serum homocysteine Heparin-induced thrombocytopenia Other congenital or acquired thrombophilia Stroke (< 1 month) Elective arthroplasty Hip, pelvis, or leg fracture Acute spinal cord injury (< 1 month) Prophylaxis Regimen: Total Risk Factor Score Risk Level Prophylaxis Regimen 0-1 Low Early ambulation 2 Moderate Order ONE of the following: *Sequential Compression Device (SCD) *Heparin 5000 units SQ BID 3-4 Higher Order ONE of the following medications: *Heparin 5000 units SQ TID *Enoxaparin/Lovenox 40 mg SQ daily (WT < 150 kg, CrCl > 30 mL/min) *Enoxaparin/Lovenox 30 mg SQ daily (WT < 150 kg, CrCl > 10-29 mL/min) *Enoxaparin/Lovenox 30 mg SQ BID (WT < 150 kg, CrCl > 30 mL/min) AND/OR *Sequential Compression Device (SCD) 5 or more Highest Order ONE of the following medications: *Heparin 5000 units SQ TID (Preferred with Epidurals) *Enoxaparin/Lovenox 40 mg SQ daily (WT < 150 kg, CrCl > 30 mL/min) *Enoxaparin/Lovenox 30 mg SQ daily (WT < 150 kg, CrCl > 10-29 mL/min) *Enoxaparin/Lovenox 30 mg SQ BID (WT < 150 kg, CrCl > 30 mL/min) AND *Sequential Compression Device (SCD) Assessment and Plan - Plan 78-year-old white male being admitted for sepsis secondary to obstructive uropathy Sepsis 1 dose of Rocephin had already been administered emergency department. Ordering stat blood cultures. Follow-up urine culture as well. start cefepime given of hypotension even though it maybe chronic -Ordering further normal saline bolus followed by IV fluids -telemetry Suspected UTI with obstructive uropathy -cefepime, f/u cultures Obstructive uropathy -Urology following, IR plans for nephrostomy tubes at this time -obstructing calculus in the left proximal ureter measuring 9 x 7 mm. Multiple other nonobstructing left-sided renal calculi measuring in size from 5 to 12 mm. Multiple nonobstructing right-sided renal calculi including a 9 mm calculus in the right renal pelvis. There is mild prominence of both uretersleading to a right lower quadrant urostomy. SANDI - obstructive etiology, IVFs with IR procedure should show improvement Diarrhea - stool cdif pcr pending, start oral vanc if diarrhea is witnessed or worsens before results return tachycardia - reported by RN, ER concluded afib, heart rate improved w/ Lopressor admit to ICU SCDs given procedure
[2018-02-28] MEDS ORDERED: Iohexol Inj 350 MG/ML 100 ML Bottle (for RAD Diag) IVCONTRAST ONE (17:43)
[2018-02-28] MEDS ORDERED: Metoprolol Inj 5 MG/5 ML Vial IV.PUSH ONE ×2 (18:13→20:51)
--- NOTE | 2018-02-28 18:19 | IR ---
EXAM DATE: 02/28/2018 6:01 PM EDT AGE/SEX: 78 years / Male INDICATIONS: 78-year-old male with history of cystectomy who presents with bilateral hydronephrosis secondary to renal calculi. Therefore, percutaneous nephrostomy catheter placement has been requested . CLINICAL DATA: This is the patient's initial encounter. Patient reports that signs and symptoms have been present for 1 day and indicates a pain score of 0/10. MEDICAL/SURGICAL HISTORY: Chronic obstructive pulmonary disease. Clostridium difficile infectio n.Kidney stones.Prostate cancer.Renal failure. Nephrostomy tube. COMPARISON: [facility] – [place], [place] ABDOMEN & PELVIS W/O CONTRAST, 02/28/2018. . FLUORO TIME (min): 7.0 IMAGE SERIES: 6 SEDATION TIME (min): 45 CONTRAST (cc): 10 Omnipaque (iohexol) 350 MEDICATION(S): 1mg midazolam (Versed) IV 50mcg fentanyl (Sublimaze) IV DEVICE(S): 8 [place] nephrostomy catheter Expel 8 [place] nephrostomy catheter Expel . . PROCEDURE : 1. Ultrasound-guided puncture of the kidney. 2. Antegrade percutaneous pyelogram. 3. Percutaneous nephrostomy placement. 4. Conscious sedation with continuous EKG and oximetry monitoring. The risks, benefits and alternatives to the procedure were explained and verbal and written consent w as obtained. The site was prepped in sterile fashion. Full sterile technique was used, including ca p, mask, sterile gloves and gown and a large sterile sheet. Hand hygiene and 2% chlorhexidine and/or betadine/alcohol prep was utilized per protocol for cutaneous antisepsis. Sterile gel and sterile probe cover were utilized for ultrasound guidance. The skin and subcutaneous tissues were infiltrate d with local anesthetic solution. With ultrasound and fluoroscopic guidance the left kidney was punctured and a percutaneous antegrade pyelogram was performed demonstrating a dilated collecting system. Serial dilatation was performed a nd a prescribed nephrostomy tube was placed within the renal pelvis and sutured in place. With ultrasound and fluoroscopic guidance the right kidney was punctured and a percutaneous antegrade pyelogram was performed demonstrating a dilated collecting system. Serial dilatation was performed and a prescribed nephrostomy tube was placed within the renal pelvis and sutured in place. Conscious sedation was performed with the prescribed dosages and duration as above in the presence of an independent trained radiology nurse to assist in the monitoring of the patient. EKG and oximetry remained stable throughout the procedure. The patient tolerated the procedure well and there were n o complications. The patient was sent to post anesthesia recovery in stable condition. CONCLUSION: 1. Uncomplicated bilateral nephrostomy tube placement as above. Electronically signed by: Gerald Castrejon MD 02/28/2018 6:17 PM EDT
--- NOTE | 2018-02-28 18:22 | XR ---
EXAM DATE: 02/28/2018 6:11 PM EDT AGE/SEX: 78 years / Male INDICATIONS: Short of breath. CLINICAL DATA: This is the patient's subsequent encounter. Patient reports that signs and symptoms h ave been present for 1 day and indicates a pain score of 7/10. MEDICAL/SURGICAL HISTORY: . Hypercholesterolemia.Carcinoma, bladder.Atrial fibrilation. . Paro tid surgery. Bladder surgery. COMPARISON: Chest x-ray 12/06/2017. FINDINGS: A single AP view of the chest demonstrates the lungs to be symmetrically aerated without evidence of mass, infiltrate or effusion. The cardiomediastinal contours are unremarkable. Osseous structures a re intact. CONCLUSION: No acute disease. Electronically signed by: Juan Pablo Coleman MD 02/28/2018 6:21 PM EDT
[2018-02-28] MEDS: Sod Chloride 0.9% Inj 1,000 ML IV.CONT SCH ×2 (20:12)
--- NOTE | 2018-02-28 22:12 | ECG ---
Date Performed: 02/28/2018 Time Performed: 18:08:19 PTAGE: 78 years EKG: ATRIAL FIBRILLATION WITH RAPID VENTRICULAR RESPONSE NONSPECIFIC ST & T-WAVE ABNORMALITY ABN ORMAL RHYTHM ECG Compared to PREVIOUS TRACING , rate faster DOCTOR: Barbara Ortiz Interpretating Date/Time 02/28/2018 22:11:16
[2018-03-01] MEDS ORDERED: Sod Chloride 0.9% Inj 1,000 ML IV.SIG ONE (05:07)
[2018-03-01] MEDS: Sod Chloride 0.9% Inj 1,000 ML IV.CONT SCH ×4 (05:57→21:19)
[2018-03-01] MEDS ORDERED: Sodium Chlor 0.9% Inj 500 ML IV.SIG ONE (08:22)
--- NOTE | 2018-03-01 08:50 | P.CONCC ---
History of Present Illness Service: Critical Care Consult date: 03/01/18 Requesting Physician: Mauricio Elizabeth Reason for Consult: hypotension Primary Care Provider: UNKNOWN Chief Complaint: hypotension History of Present Illness: 78yM with history of prior UTIs and kidney stones presents with obstructing renal stone and obstructive hydronephrosis as well as obstructive urosepsis. admitted on 02/28 (yesterday) given IVF and perc nephrostomy tubes placed by IR. today, patient is persistently hypotensive 70s/40s with map 59 on my evaluation. patient refused labs this AM. In total, appears to have received 4L crystalloid boluses and has made 1L urine output since admission. patient is slightly confused as well as a very poor historian and difficult to obtain any additional information. CCM is consulted to assist in management of his hypotension. ROS is otherwise negative. Review of Systems All other systems reviewed negative except as stated in HPI, unobtainable due to mental status PMFSH - History History Provided By: Patient, Medical Record - Medical / Surgical Hx Neg / Unobtainable Surgical History: Unable to Obtain - Medical History Medical History: Medical History (Last Reviewed 02/28/18 @ 10:35 by Alecia Escobar DO) COPD (chronic obstructive pulmonary disease) History of Clostridium difficile infection Kidney stones Prostate cancer Renal failure - Tobacco History Second Hand Smoke Exposure: No Tobacco Use In Past 30 Days: No Smoking Status: Former smoker Tobacco Type: Cigarettes - Alcohol History How Often Do You Have a Drink Containing Alcohol: Never - Substance Use History Substance History: No History of Abuse - Travel History Recent Travel in the [place] Within the Last 8 Weeks: No Recent Travel Out of the Country Within the Last 8 Weeks: No - Immunization History Tetanus Immunization: Unsure Hx Influenza Vaccine This Season: No Medications and Allergies Active Medications: See MAR Allergies Allergy/AdvReac Type Severity Reaction Status Date / Time crab Allergy Intermediate Rash Verified 12/08/17 07:56 Home Medications Medication Instructions Recorded Confirmed Type amino acids 3%-lytes-glycerin 5 mg 02/28/18 History [Procalamine 3%] ciprofloxacin HCl [Cipro] 500 mg PO BID 02/28/18 02/28/18 History [id number] 02/28/18 History Physical Exam Vital signs: Vital Signs 02/28/18 10:58 02/28/18 12:31 02/28/18 14:19 Temperature 97.8 F Pulse Rate 81 85 71 Respiratory Rate 18 18 18 Blood Pressure 86/51 L 88/63 L 87/57 L Pulse Oximetry 98 100 99 02/28/18 18:06 02/28/18 18:15 02/28/18 18:48 Temperature Pulse Rate 127 H 155 H 94 H Respiratory Rate 18 18 Blood Pressure 142/70 H 142/70 H 114/64 Pulse Oximetry 98 100 100 02/28/18 19:33 02/28/18 19:37 02/28/18 19:38 Temperature Pulse Rate 129 H 133 H Respiratory Rate 24 16 Blood Pressure 121/56 L Pulse Oximetry 99 100 02/28/18 20:00 02/28/18 20:05 02/28/18 21:00 Temperature 98 F Pulse Rate 129 H 126 H 104 H Respiratory Rate 22 27 H 21 Blood Pressure 141/110 H 81/52 L Pulse Oximetry 100 99 99 02/28/18 22:00 02/28/18 23:00 02/28/18 23:04 Temperature Pulse Rate 129 H 125 H 127 H Respiratory Rate 22 20 21 Blood Pressure 97/55 L 82/52 L Pulse Oximetry 100 99 100 03/01/18 00:00 03/01/18 00:08 03/01/18 00:09 Temperature Pulse Rate 123 H 121 H 121 H Respiratory Rate 20 24 24 Blood Pressure 73/50 L 81/45 L 71/51 L Pulse Oximetry 100 100 97 03/01/18 00:10 03/01/18 00:15 03/01/18 01:00 Temperature 97 F L Pulse Rate 121 H 122 H Respiratory Rate 21 21 Blood Pressure 81/52 L 78/55 L Pulse Oximetry 100 90 L 03/01/18 02:00 03/01/18 03:00 03/01/18 04:00 Temperature Pulse Rate 124 H 114 H 121 H Respiratory Rate 21 21 21 Blood Pressure 85/52 L 82/50 L 72/50 L Pulse Oximetry 100 99 100 03/01/18 04:07 03/01/18 05:00 03/01/18 06:00 Temperature Pulse Rate 115 H 106 H 103 H Respiratory Rate 18 18 16 Blood Pressure 70/48 L 76/44 L 82/49 L Pulse Oximetry 99 99 100 03/01/18 07:51 Temperature Pulse Rate Respiratory Rate Blood Pressure Pulse Oximetry 99 Intake & Output 02/28/18 03/01/18 03/01/18 18:59 06:59 18:59 Intake Total 4100 / 4100 Output Total 1015 / 1015 Balance 3085 / 3085 Weight 54.431 kg 65 kg Intake: IV 4100 / 4100 NS Inj 1,000 ML @ 100 mls/hr IV 1000 / 1000 .CONT .Q10H TRAVIS Rx#:[id number] Maxipime Inj 2,000 MG In NS Inj 100 / 100 100 ML @ 200 mls/hr IV.SIG ONCE ONE Rx#:[id number] NS Inj 1,000 ML @ Wide Open IV. 3000 / 3000 SIG BOLUS ONE Rx#:[id number] Output: Urine Amount (Stoma) 1015 / 1015 Continent Urostomy 700 / 700 Nephrostomy Tube 315 / 315 Other: Weight On Admission 63.9 kg Narrative: gen: frail elderly male, lying in bed, distress due to hypotension. heent: nc. at. perrl. mucous membranes dry. neck: neck veins flat. trachea midline. chest: equal chest rise. nc o2. cv: normal rate, irregularly irregular rhythm. afib by tele. sbp 69 on my evaluation, map 59. abd: soft, nontender, nondistended, no guarding. back: nephrostomy tube in place draining dark yellow urine extr: no peripheral edema. distal pulses 1+ neuro: RASS -1/-2. follows simple commands. oriented to person. CAM+. Septic Shock Reassessment Septic shock perfusion: reassessment completed (evidence of ongoing hypoperfusion and shock) Assessment and Plan - Assessment and Plan Plan: Assessment: 78yM with obstructive uropathy and obstructive urosepsis with end- organ dysfunction. critically ill with worsening hypotension despite ivf therapy. will give additional ivf and may be forced to pursue vasopressor therapy. prognosis guarded given age and comorbidities. Active Problems: Acute metabolic encephalopathy secondary to severe sepsis Acute urinary tract infection Severe sepsis with end-organ dysfunction - present on admission Acute kidney injury Obstructive uropathy Obstructive Nephrolithiasis Plan: - additional ivf - check lactate - check cbc, bmp - may require vasopressors. - continue broad spectrum abx: if no improvement, will need to add vancomycin. - f/u c. diff pcr: no current symptoms concerning for this, but strong prior history of c. diff. - frequent uop monitoring - daily bmp remain in ICU. Critical care time: 40 minutes, exclusive of separately billable procedures.
[2018-03-01 09:24] LABS: Baso % (Auto) 0.1 % (0.0-2.0); Hematocrit 21.9 % (39.0-51.0); Hemoglobin 7.2 gm/dL (13.0-17.0); Lymph # (Auto) 0.2 th/mm3 (1.0-4.8); Lymph % (Auto) 0.6 % (9.0-44.0); Mean Corpuscular HGB Conc 32.7 % (32.0-36.0); Mean Corpuscular Hemoglobin 28.6 pg (27.0-34.0); Mean Corpuscular Volume 87.6 fL (80.0-100.0); Mean Platelet Volume 8.2 fL (7.0-11.0); Mono # (Auto) 1.3 th/mm3 (0.0-0.9); Mono % (Auto) 3.6 % (0.0-8.0); Neut # (Auto) 35.2 th/mm3 (1.8-7.7); Neut % (Auto) 95.7 % (16.0-70.0); Platelet Count 205 th/mm3 (150-450); White Blood Count 36.8 th/mm3 (4.0-11.0)
[2018-03-01 09:46] LABS: Albumin 1.7 g/dL (3.4-5.0); Carbon Dioxide 9.3 meq/L (21.0-32.0); Magnesium 1.6 mg/dL (1.5-2.5); Phosphorus 3.9 mg/dL (2.5-4.9); Potassium 3.5 meq/L (3.5-5.1); Total Protein 4.7 g/dL (6.4-8.2)
[2018-03-01 09:53] LABS: Acanthocytes 2+; Lymphocytes 2 % (9-44); Monocytes 2 % (0-8)
[2018-03-01 09:54] LABS: Platelet Estimate Normal (Normal); Platelet Morphology Normal (Normal)
[2018-03-01] MEDS ORDERED: Albumin Human 5% Inj 500 ML IV.SIG ONE (10:01)
[2018-03-01] MEDS ORDERED: Calcium Gluconate Inj 2 GM in Dextrose 5% in Water Inj 100 ML IV.SIG ONE ×2 (10:09)
[2018-03-01] MEDS ORDERED: Sodium Chlor 0.9% Inj 250 ML IV.SIG SCH (11:00)
[2018-03-01 16:09] LABS: Hematocrit 30.6 % (39.0-51.0)
[2018-03-02] MEDS: Sod Chloride 0.9% Inj 1,000 ML IV.CONT SCH (01:48)
[2018-03-02 05:15] LABS: Baso # (Auto) 0.1 th/mm3 (0.0-0.2); Baso % (Auto) 0.2 % (0.0-2.0); Eos % (Auto) 0.1 % (0.0-4.0); Hematocrit 32.4 % (39.0-51.0); Hemoglobin 10.7 gm/dL (13.0-17.0); Lymph # (Auto) 0.7 th/mm3 (1.0-4.8); Lymph % (Auto) 2.4 % (9.0-44.0); Mean Corpuscular HGB Conc 33.1 % (32.0-36.0); Mean Corpuscular Hemoglobin 28.6 pg (27.0-34.0); Mean Corpuscular Volume 86.4 fL (80.0-100.0); Mean Platelet Volume 8.6 fL (7.0-11.0); Mono # (Auto) 1.5 th/mm3 (0.0-0.9); Neut # (Auto) 28.2 th/mm3 (1.8-7.7); Neut % (Auto) 92.3 % (16.0-70.0); Platelet Count 194 th/mm3 (150-450); Red Blood Count 3.76 mil/mm3 (4.50-5.90); Red Cell Distribution Width 18.6 % (11.6-17.2); White Blood Count 30.6 th/mm3 (4.0-11.0)
[2018-03-02 05:40] LABS: Calcium 7.2 mg/dL (8.5-10.1); Carbon Dioxide 7.8 meq/L (21.0-32.0); Potassium 3.6 meq/L (3.5-5.1)
[2018-03-02 05:55] LABS: Total Protein 5.3 g/dL (6.4-8.2)
[2018-03-02 07:35] LABS: Lymphocytes 2 % (9-44); Monocytes 2 % (0-8)
[2018-03-02 07:37] LABS: Acanthocytes 1+; Burr Cells 1+; Ovalocytes 1+; Platelet Estimate Normal (Normal); Platelet Morphology Normal (Normal)
[2018-03-02] MEDS ORDERED: Dextrose 50% in Water Syringe 50 ML ONE (07:41)
[2018-03-02] MEDS ORDERED: CALCIUM GLUCONATE IV.SIG ONE ×2 (07:46)
[2018-03-02] MEDS ORDERED: DEXTROSE 5% IV.SIG ONE ×2 (07:46)
[2018-03-02] MEDS ORDERED: WATER IV.SIG ONE ×2 (07:46)
[2018-03-02] MEDS ORDERED: Dextrose 50% in Water 50 ML Vial IV.PUSH PRN (07:58)
--- NOTE | 2018-03-02 08:11 | P.PNCC ---
Subjective Subjective Remarks/Hospital Course: Hospital Course: 78yM with history of prior UTIs and kidney stones presents with obstructing renal stone and obstructive hydronephrosis as well as obstructive urosepsis. admitted on 02/28 (yesterday) given IVF and perc nephrostomy tubes placed by IR. today, patient is persistently hypotensive 70s/40s with map 59 on my evaluation. patient refused labs this AM. In total, appears to have received 4L crystalloid boluses and has made 1L urine output since admission. patient is slightly confused as well as a very poor historian and difficult to obtain any additional information. [facility] is consulted to assist in management of his hypotension. ROS is otherwise negative. Subjective: 03/02: remains borderline hypotensive, but end-organ function is slowly improving. cultures still NGTD. sodium uptrending and acidosis is worsening, although appears to be mostly a non-gapped acidosis. will check abg to ensure adequate respiratory compensation. hgb stable after 2 units prbc. Objective Vital Signs / I&O: Vital Signs 03/01/18 07:51 03/01/18 08:00 03/01/18 10:46 Temperature 36.8 C Pulse Rate 97 H 93 H Respiratory Rate 20 19 Blood Pressure 73/50 L Pulse Oximetry 99 99 100 03/01/18 11:00 03/01/18 11:03 03/01/18 11:15 Temperature Pulse Rate 85 87 85 Respiratory Rate 17 18 15 Blood Pressure 77/51 L 71/51 L 77/50 L Pulse Oximetry 100 100 100 03/01/18 11:30 03/01/18 12:00 03/01/18 12:15 Temperature 36.2 C L Pulse Rate 89 78 92 H Respiratory Rate 16 18 18 Blood Pressure 78/50 L 83/51 L 75/57 L Pulse Oximetry 100 100 100 03/01/18 12:28 03/01/18 12:30 03/01/18 12:45 Temperature 36.2 C L Pulse Rate 99 H 89 85 Respiratory Rate 18 18 19 Blood Pressure 75/57 L 85/50 L 75/52 L Pulse Oximetry 100 100 99 03/01/18 12:49 03/01/18 12:52 03/01/18 13:00 Temperature 36.1 C L 36.1 C L Pulse Rate 106 H 106 H 92 H Respiratory Rate 18 18 18 Blood Pressure 75/62 L 75/52 L 83/54 L Pulse Oximetry 100 99 03/01/18 13:09 03/01/18 13:15 03/01/18 13:30 Temperature 36.1 C L Pulse Rate 80 77 85 Respiratory Rate 18 18 17 Blood Pressure 83/54 L 90/59 L 91/61 L Pulse Oximetry 100 100 100 03/01/18 13:45 03/01/18 14:00 03/01/18 14:01 Temperature Pulse Rate 80 87 90 Respiratory Rate 16 16 19 Blood Pressure 78/55 L 97/53 L Pulse Oximetry 100 98 100 03/01/18 14:15 03/01/18 14:30 03/01/18 14:45 Temperature Pulse Rate 84 84 85 Respiratory Rate 16 14 14 Blood Pressure 84/56 L 93/64 L 87/58 L Pulse Oximetry 99 99 99 03/01/18 15:00 03/01/18 15:07 03/01/18 15:15 Temperature Pulse Rate 86 83 90 Respiratory Rate 16 21 18 Blood Pressure 93/67 L 86/65 L 88/60 L Pulse Oximetry 99 99 99 03/01/18 15:30 03/01/18 15:35 03/01/18 15:45 Temperature Pulse Rate 88 84 83 Respiratory Rate 27 H 17 17 Blood Pressure 75/49 L 93/60 L 94/60 L Pulse Oximetry 99 99 99 03/01/18 16:00 03/01/18 16:15 03/01/18 16:30 Temperature 36.1 C L Pulse Rate 86 82 80 Respiratory Rate 19 16 18 Blood Pressure 94/67 L 96/59 L 95/68 L Pulse Oximetry 99 99 99 03/01/18 19:15 03/01/18 20:00 03/02/18 00:00 Temperature 36.3 C L 36.4 C L Pulse Rate 94 H 95 H Respiratory Rate 27 H 16 Blood Pressure 97/57 L 95/58 L Pulse Oximetry 98 98 98 03/02/18 04:00 03/02/18 07:22 Temperature 36.5 C Pulse Rate 103 H Respiratory Rate 18 Blood Pressure 97/52 L Pulse Oximetry 99 99 Intake & Output 03/01/18 03/02/18 03/02/18 18:59 06:59 18:59 Intake Total 4330 / 4330 1000 / 1000 Output Total 625 / 625 550 / 550 Balance 3705 / 3705 450 / 450 Weight 70.7 kg Intake: IV 3170 / 3170 1000 / 1000 NS Inj 1,000 ML @ 150 mls/hr IV 2000 / 2000 1000 / 1000 .CONT .Q6H40M [facility] Rx#:[id number] Alburx 5% Inj 500 ML @ 250 mls/ 500 / 500 hr IV.SIG ONCE ONE Rx#:[id number] Calcium Gluconate Inj 2 GM In 120 / 120 D5W Inj 100 ML @ 120 mls/hr IV. SIG ONCE ONE Rx#:[id number] NS Inj 250 ML @ 15 mls/hr IV. 50 / 50 SIG ONCE [facility] Rx#:[id number] NS Inj 500 ML @ Wide Open IV. 500 / 500 SIG BOLUS ONE Rx#:[id number] Oral 360 / 360 0 / 0 Intake (Blood Product) Amt 800 / 800 Rbc As-3 Leukoreduced Unit 400 / 400 [id number] Rbc As-3 Leukoreduced Unit 400 / 400 [id number] Output: Urine Amount (Stoma) 625 / 625 550 / 550 Continent Urostomy 200 / 200 Nephrostomy Tube 425 / 425 550 / 550 Other: Date of Last Bowel Movement 03/02/18 Result Diagrams: 03/02/18 04:40 03/02/18 04:40 Imaging: Chest X-Ray 02/28/18 00:00 CONCLUSION: No acute disease. Nephrostomy 02/28/18 15:20 CONCLUSION: 1. Uncomplicated bilateral nephrostomy tube placement as above. Abdomen/Pelvis CT 03/01/18 10:07 CONCLUSION: 1. Bilateral percutaneous nephrostomy tubes. 2. No retroperitoneal hemorrhage. 3. Bilateral nonobstructing renal calculi. 4. Infrarenal abdominal aortic aneurysm measures 3.6 cm. 5. Cholelithiasis. 6. Small pleural effusions and bibasilar atelectasis. 7. Diverticulosis without diverticulitis. Objective Remarks: gen: frail elderly male, lying in bed, resting. heent: nc. at. perrl. mucous membranes moist. neck: neck veins flat. trachea midline. chest: equal chest rise. nc o2. cv: normal rate, irregularly irregular rhythm. afib by tele. sbp 81mmHg on my evaluation, map 66 mmHg. abd: soft, nontender, nondistended, no guarding. back: nephrostomy tubes in place draining dark yellow urine extr: no peripheral edema. distal pulses 2+ neuro: RASS 0/-1. follows simple commands. oriented to person. CAM+. Assessment and Plan - Assessment and Plan Plan: Assessment: 78yM with obstructive uropathy and obstructive urosepsis with end- organ dysfunction. remains highly complex with multi-organ dysfunction. continue abx and ivf. will adjust electrolytes. prognosis guarded given age and comorbidities. Active Problems: Acute metabolic encephalopathy secondary to severe sepsis Acute urinary tract infection Severe sepsis with end-organ dysfunction - present on admission, persistent Acute kidney injury- slowly improving but persistent Obstructive uropathy Obstructive Nephrolithiasis Hypernatremia Non-anion gap metabolic acidosis Hyperchloremia Hypocalcemia Hypoglycemia Anemia, likely secondary to acute blood loss Plan: - 1L LR bolus x 1 now - change ivf to d5w + 80 meq NaAcetate at 150 cc/hr. - increase frequency of glucose checks to q4h - check bmp this afternoon - ABG now to eval for respiratory compensation - 3gm ca gluconate iv x 1 - continue midodrine for bp support (family states blood pressure is typically in 80s at home) - daily cbc, bmp - f/u culture data - continue cefepime iv - frequent uop monitoring - hgb improved with 2 units prbc 03/01. recheck on daily cbc. - avoid pharmacologic dvt prophylaxis given anemia and concern for recent bleeding - scd's remain in ICU.
[2018-03-02] MEDS: WATER IV.SIG SCH ×2 (08:28)
[2018-03-02] MEDS: SODIUM ACETATE IV.SIG SCH ×2 (08:28)
[2018-03-02] MEDS: DEXTROSE 5% IV.SIG SCH ×2 (08:28)
[2018-03-02 08:32] LABS: ABG Base Excess -19.2 mmol/L (-2-2); ABG PCO2 22 mmHg (38-42); ABG PO2 73 mmHG (61-120)
[2018-03-02] MEDS ORDERED: Sodium Bicarbonate 8.4% Inj 50 MEQ/50 ML Syringe IV.PUSH ONE (08:41)
[2018-03-02] MEDS ORDERED: Vancomycin Inj 1,500 MG in Sodium Chlor 0.9% Inj 500 ML IV.SIG STA (11:36)
[2018-03-02] MEDS ORDERED: Vancomycin Consult Pharmacy 1 EACH OTHER SCH (12:00)
[2018-03-02 17:15] LABS: Calcium 7.4 mg/dL (8.5-10.1); Carbon Dioxide 11.4 meq/L (21.0-32.0); Potassium 3.1 meq/L (3.5-5.1)
[2018-03-02 17:34] LABS: Total Protein 4.8 g/dL (6.4-8.2)
--- NOTE | 2018-03-02 17:35 | ECHRPT ---
Indication: POSS SEPSIS, ENDOCARDITIS CONCLUSIONS Normal left ventricular size. Wall thickness is normal. Normal left ventricular systolic function with normal ejection fraction of 65%. No vegetations seen but technically very difficult study. BP: / HR: Rhythm: Atrial fibrillation MEASUREMENTS (Male / Female) Normal Values Technical Quality:Very technically difficult study 2D ECHO LV Diastolic Diameter PLAX 3.8 cm 4.2 - 5.9 / 3.9 - 5.3 cm LV Systolic Diameter PLAX 2.7 cm IVS Diastolic Thickness 0.9 cm 0.6 - 1.0 / 0.6 - 0.9 cm LVPW Diastolic Thickness 0.9 cm 0.6 - 1.0 / 0.6 - 0.9 cm LV Relative Wall Thickness 0.5 RV Internal Dim ED PLAX 1.6 cm LVOT Diameter 2.1 cm Aortic Root Diameter 3.3 cm LA Systolic Diameter LX 3.0 cm 3.0 - 4.0 / 2.7 - 3.8 cm M-MODE AV Cusp Separation MM 1.5 cm DOPPLER AV Peak Velocity 119.3 cm/s AV Peak Gradient 5.7 mmHg AV Mean Gradient 3.5 mmHg AV Velocity Time Integral 18.9 cm LVOT Peak Velocity 90.1 cm/s LVOT Peak Gradient 3.2 mmHg LVOT Velocity Time Integral 15.4 cm AV Area Cont Eq vti 2.8 cm AV Area Cont Eq pk 2.6 cm Mitral E Point Velocity 95.9 cm/s LV E' Lateral Velocity 12.5 cm/s Mitral E to LV E' Lateral Ratio 7.6 LV E' Septal Velocity 9.1 cm/s Mitral E to LV E' Septal Ratio 10.5 TR Peak Velocity 286.0 cm/s TR Peak Gradient 32.7 mmHg Right Atrial Pressure 10.0 mmHg Pulmonary Artery Systolic Pressu 42.7 mmHg Right Ventricular Systolic Press 42.7 mmHg PV Peak Velocity 63.9 cm/s PV Peak Gradient 1.6 mmHg FINDINGS LEFT VENTRICLE Normal left ventricular size. Wall thickness is normal. The left ventricular systolic function is normal with an estimated ejection fraction in the range of 60-65%. RIGHT VENTRICLE Normal right ventricular size and systolic function. LEFT ATRIUM The left atrial size is normal. RIGHT ATRIUM The right atrial size is normal. ATRIAL SEPTUM The interatrial septum not well visualized. AORTA The aortic root and proximal ascending aorta are not well visualized. MITRAL VALVE Structurally normal mitral valve. No mitral valve stenosis or regurgitation. AORTIC VALVE No aortic valve stenosis or regurgitation. TRICUSPID VALVE The tricuspid valve is not well visualized. PULMONARY VALVE The pulmonary valve is not well visualized. VESSELS The inferior vena cava was not well visualized. PERICARDIUM No pericardial effusion. Jaydon Randle MD (Electronically Signed) Final Date:02 March 2018 17:34
[2018-03-03] MEDS: WATER IV.SIG SCH ×10 (00:48→22:31)
[2018-03-03] MEDS: SODIUM ACETATE IV.SIG SCH ×10 (00:48→22:31)
[2018-03-03] MEDS: DEXTROSE 5% IV.SIG SCH ×10 (00:48→22:31)
[2018-03-03] MEDS: metroNIDAZOLE 500 MG Tablet PO SCH ×2 (12:11→17:35)
[2018-03-03 12:18] LABS: Hematocrit 32.5 % (39.0-51.0); Hemoglobin 10.8 gm/dL (13.0-17.0); Mean Corpuscular HGB Conc 33.1 % (32.0-36.0); Mean Corpuscular Hemoglobin 27.7 pg (27.0-34.0); Mean Corpuscular Volume 83.5 fL (80.0-100.0); Mean Platelet Volume 8.6 fL (7.0-11.0); Platelet Count 191 th/mm3 (150-450); Red Blood Count 3.89 mil/mm3 (4.50-5.90); Red Cell Distribution Width 17.4 % (11.6-17.2); White Blood Count 23.3 th/mm3 (4.0-11.0)
[2018-03-03 12:57] LABS: Carbon Dioxide 16.8 meq/L (21.0-32.0)
[2018-03-03 13:10] LABS: Total Protein 4.8 g/dL (6.4-8.2)
--- NOTE | 2018-03-03 13:17 | P.PNCC ---
Subjective Subjective Remarks/Hospital Course: Hospital Course: 78yM with history of prior UTIs and kidney stones presents with obstructing renal stone and obstructive hydronephrosis as well as obstructive urosepsis. admitted on 02/28 (yesterday) given IVF and perc nephrostomy tubes placed by IR. today, patient is persistently hypotensive 70s/40s with map 59 on my evaluation. patient refused labs this AM. In total, appears to have received 4L crystalloid boluses and has made 1L urine output since admission. patient is slightly confused as well as a very poor historian and difficult to obtain any additional information. [facility] is consulted to assist in management of his hypotension. ROS is otherwise negative. Subjective: 03/02: remains borderline hypotensive, but end-organ function is slowly improving. cultures still NGTD. sodium uptrending and acidosis is worsening, although appears to be mostly a non-gapped acidosis. will check abg to ensure adequate respiratory compensation. hgb stable after 2 units prbc. 03/03: C. Diff +. blood growing MRSA. wbc downtrending. Cr stable. acidosis improving. off vasopressors. Objective Vital Signs / I&O: Vital Signs 03/02/18 13:30 03/02/18 14:00 03/02/18 14:30 Temperature Pulse Rate 101 H 92 H 84 Respiratory Rate 20 18 17 Blood Pressure 104/66 100/72 110/75 Pulse Oximetry 99 99 98 03/02/18 15:00 03/02/18 15:30 03/02/18 16:00 Temperature 36.3 C L Pulse Rate 101 H 93 H 101 H Respiratory Rate 18 18 18 Blood Pressure 108/64 110/67 103/67 Pulse Oximetry 99 98 98 03/02/18 16:30 03/02/18 17:00 03/02/18 17:30 Temperature Pulse Rate 102 H 94 H 104 H Respiratory Rate 17 17 17 Blood Pressure 110/70 108/67 102/65 Pulse Oximetry 98 98 98 03/02/18 18:00 03/02/18 18:30 03/02/18 19:00 Temperature Pulse Rate 100 H 105 H 108 H Respiratory Rate 20 19 18 Blood Pressure 109/84 113/79 111/65 Pulse Oximetry 98 98 99 03/02/18 19:19 03/02/18 19:30 03/02/18 20:00 Temperature 36.8 C Pulse Rate 103 H 90 Respiratory Rate 19 18 Blood Pressure 118/76 124/76 Pulse Oximetry 99 99 98 03/02/18 20:30 03/02/18 21:00 03/02/18 21:30 Temperature Pulse Rate 89 93 H 88 Respiratory Rate 19 18 18 Blood Pressure 114/61 107/69 120/68 Pulse Oximetry 98 98 98 03/02/18 22:00 03/02/18 22:30 03/02/18 23:00 Temperature Pulse Rate 88 87 97 H Respiratory Rate 19 19 21 Blood Pressure 115/77 113/73 125/72 Pulse Oximetry 98 98 99 03/02/18 23:30 03/03/18 00:00 03/03/18 00:30 Temperature 37.1 C Pulse Rate 85 83 94 H Respiratory Rate 23 21 20 Blood Pressure 109/74 105/67 114/65 Pulse Oximetry 99 98 99 03/03/18 01:00 03/03/18 01:30 03/03/18 02:00 Temperature Pulse Rate 84 83 89 Respiratory Rate 21 19 21 Blood Pressure 120/75 117/76 130/73 Pulse Oximetry 98 98 98 03/03/18 02:30 03/03/18 03:00 03/03/18 03:30 Temperature Pulse Rate 84 81 80 Respiratory Rate 21 19 18 Blood Pressure 122/74 120/72 120/79 Pulse Oximetry 98 98 99 03/03/18 04:00 03/03/18 04:30 03/03/18 05:00 Temperature 36.3 C L Pulse Rate 86 89 89 Respiratory Rate 26 H 21 22 Blood Pressure 129/76 119/77 126/86 Pulse Oximetry 98 98 98 03/03/18 05:30 03/03/18 06:00 03/03/18 06:30 Temperature Pulse Rate 81 78 77 Respiratory Rate 18 19 17 Blood Pressure 130/78 127/87 133/79 Pulse Oximetry 99 98 98 03/03/18 07:00 03/03/18 07:24 03/03/18 07:30 Temperature Pulse Rate 79 81 Respiratory Rate 20 18 Blood Pressure 134/75 119/76 Pulse Oximetry 98 96 98 03/03/18 08:00 03/03/18 08:30 03/03/18 09:00 Temperature 36.8 C Pulse Rate 79 73 80 Respiratory Rate 22 18 23 Blood Pressure 120/70 136/83 118/64 Pulse Oximetry 98 98 99 07/06/18 09:29 03/03/18 09:30 03/03/18 12:00 Temperature 36.7 C Pulse Rate 78 Respiratory Rate 17 Blood Pressure 126/79 Pulse Oximetry 99 Intake & Output 03/02/18 03/03/18 03/03/18 18:59 06:59 18:59 Intake Total 2645 / 2645 204 / 2040 1020 / 1020 Output Total 875 / 875 425 / 425 Balance 1770 / 1770 1615 / 1615 1020 / 1020 Weight 72.3 kg Intake: IV 2395 / 2395 2039 / 0 1020 / 1020 D50W Syringe 50 ML @ 0 mls/hr . 50 / 50 ROUTE .STK-MED ONE Rx#:[id number] NS Inj 1,000 ML @ 150 mls/hr IV 700 / 700 .CONT .Q6H40M [facility] Rx#:[id number] Calcium Gluconate Inj 3 GM In 130 / 130 D5W Inj 100 ML @ 120 mls/hr IV. SIG ONCE ONE Rx#:[id number] LR 1000 mL Inj 1,000 ML @ Wide 1000 / 1000 Open IV.SIG BOLUS ONE Rx#: [id number] Sodium Acetate Inj 80 MEQ In 2039 / 2039 1020 / 1020 D5W Inj 1,000 ML @ 150 mls/hr IV.SIG .Q6H48M [facility] Rx#:[id number] Vancomycin Inj 1,500 MG In NS 515 / 515 Inj 500 ML @ 250 mls/hr IV.SIG STAT STA Rx#:[id number] Oral 250 / 250 Output: Urine Amount (Stoma) 875 / 875 425 / 425 Continent Urostomy 50 / 50 25 / 25 Nephrostomy Tube 825 / 825 400 / 400 Other: Date of Last Bowel Movement 03/02/18 03/03/18 03/03/18 # Bowel Movements 1 Result Diagrams: 03/03/18 11:43 03/03/18 11:43 Objective Remarks: gen: frail elderly male, lying in bed, resting. heent: nc. at. perrl. mucous membranes moist. neck: neck veins flat. trachea midline. chest: equal chest rise. nc o2. cv: normal rate, irregularly irregular rhythm. afib by tele. abd: soft, nontender, nondistended, no guarding. back: nephrostomy tubes in place draining dark yellow urine extr: no peripheral edema. distal pulses 2+ neuro: RASS 0. follows commands. no focal deficits. CAM-. Assessment and Plan - Assessment and Plan Plan: Assessment: 78yM with obstructive uropathy and obstructive urosepsis, MRSA bacteremia, C. Diff colitis with end-organ dysfunction. clinically improving. metabolic derrangements slowly improving. hemodynamics improved. stable for transfer out of ICU. consult hospitalist service to assume care. Active Problems: Acute metabolic encephalopathy secondary to severe sepsis- resolved Acute urinary tract infection Severe sepsis with end-organ dysfunction - present on admission, slowly improving. Acute kidney injury- slowly improving but persistent Obstructive uropathy Obstructive Nephrolithiasis Hypernatremia- stable, slowly resolving. Non-anion gap metabolic acidosis- resolving. Hyperchloremia- resolving. Hypocalcemia- resolving. Hypoglycemia- resolving. Anemia, likely secondary to acute blood loss- stable. Plan: - continue d5w + 80 meq NaAcetate, decrease rate to 100 cc/hr. - glucose checks q4h - recheck renal ultrasound to ensure patency of nephrostomy tubes given persistence in elevated Cr. - continue midodrine for bp support (family states blood pressure is typically in 80s at home) - daily cbc, bmp - continue cefepime iv for full 7 days given clinical history to suggest obstructive urosepsis, despite urine culture without data. anticipated stop date 03/06. - start SQH 5000 q12h, monitor daily cbc. hold if worsening anemia develops. - PO flagyl, PO vanc for c. diff - IV vanc for MRSA bacteremia 09/01 bottles. - 2d echo 03/02 negative for vegetations, but poor windows. - stable for transfer to floor. consult hospitalist group.
[2018-03-03 13:28] LABS: Potassium 2.7 meq/L (3.5-5.1)
[2018-03-03] MEDS ORDERED: Potassium Chloride 25 MEQ Effervescent Tablet PO ONE ×2 (14:45→15:00)
[2018-03-03] MEDS ORDERED: Potassium Chlor 20 mEq Premix 20 MEQ/100 ML PIGGYBACK IV.SIG SCH (15:00)
--- NOTE | 2018-03-03 15:43 | US ---
EXAM DATE: 03/03/2018 3:33 PM EDT AGE/SEX: 78 years / Male INDICATIONS: Hydronephrosis. CLINICAL DATA: This is the patient's subsequent encounter. Patient reports that signs and symptoms h ave been present for 1 day and indicates a pain score of 2/10. MEDICAL/SURGICAL HISTORY: . Hypercholesterolemia. Atrial fibrillation. Bladder cancer. Parotid mass. Chemotherapy. Radiation therapy. . Parotid surgery. Bladder surgery. [place] [facility] [place] 03/[place]/2018. . MEASUREMENTS: Right Kidney:__9.5 x 4.7 x 4.5 cm Left Kidney:__10.9 x 5.1 x 5.6 cm FINDINGS: Right Kidney: There is increased echogenicity of the renal parenchyma. There is a 1 cm cyst along the mid pole. There appears to be a 5 mm stone in the lower pole. There is a nephrostomy catheter in elisa ce. No definite hydronephrosis. This correlates with the recent CT scan. Left Kidney: There is increased echogenicity of the renal parenchyma. There is a cyst along the later al pole measuring 3.3 cm. There is a 9 mm stone in the mid kidney. There is another cyst measuring 2. 7 cm along the lateral margin of the kidney. No definite hydronephrosis. There is nephrostomy cathete r in place. This correlates with the recent CT scan. Bladder: Estevez catheter is present. Bladder decompressed. Other: There appears to be a right-sided pleural effusion. There appear to be stones in the gallblad eben. CONCLUSION: 1. Bilateral nephrostomy tubes in place. No definite hydronephrosis. 2. Increased echogenicity of the renal parenchyma bilaterally consistent with chronic medical renal disease. 3. Bilateral renal cysts and bilateral stones. Electronically signed by: Keith Lee MD 03/03/2018 3:42 PM EDT
[2018-03-03] MEDS: Potassium Chlor 20 mEq Premix 20 MEQ/100 ML PIGGYBACK IV.SIG SCH ×2 (16:02→17:37)
[2018-03-03] MEDS ORDERED: Vancomycin Inj 1,250 MG in Sodium Chlor 0.9% Inj 250 ML IV.SIG ONE (17:00)
[2018-03-03] MEDS: Heparin - SQ 10,000 UNITS/ML Vial SQ SCH (22:32)
[2018-03-04] MEDS: metroNIDAZOLE 500 MG Tablet PO SCH ×4 (03:09→18:18)
[2018-03-04] MEDS: DEXTROSE 5% IV.SIG SCH ×6 (03:15→20:21)
[2018-03-04] MEDS: WATER IV.SIG SCH ×6 (03:15→20:21)
[2018-03-04] MEDS: SODIUM ACETATE IV.SIG SCH ×6 (03:15→20:21)
[2018-03-04 07:20] LABS: Hematocrit 36.2 % (39.0-51.0); Hemoglobin 11.9 gm/dL (13.0-17.0); Mean Corpuscular HGB Conc 32.9 % (32.0-36.0); Mean Corpuscular Hemoglobin 27.5 pg (27.0-34.0); Mean Corpuscular Volume 83.6 fL (80.0-100.0); Mean Platelet Volume 9.3 fL (7.0-11.0); Platelet Count 181 th/mm3 (150-450); Red Blood Count 4.33 mil/mm3 (4.50-5.90); Red Cell Distribution Width 17.7 % (11.6-17.2); White Blood Count 19.4 th/mm3 (4.0-11.0)
[2018-03-04 07:22] LABS: Calcium 7.1 mg/dL (8.5-10.1); Carbon Dioxide 19.1 meq/L (21.0-32.0); Potassium 3.2 meq/L (3.5-5.1); Vancomycin,Random 25.1 Comment
[2018-03-04 07:38] LABS: Total Protein 5.3 g/dL (6.4-8.2)
[2018-03-04] MEDS: Heparin - SQ 10,000 UNITS/ML Vial SQ SCH ×2 (11:38→20:20)
--- NOTE | 2018-03-04 11:56 | P.PN ---
Subjective Interval history: Noted chocking on food eggs in the morning. discussed with the nurse and the patient. Will do swallow eval . Change diet to soft mech diet for now Patient is seen bed he does not appear in acute distress at this time. Says he does not have any pain with swallowing. He is not coughing. No pain in his belly. No nausea vomiting no diarrhea or constipation. No fever or chills. Physical Exam Vital signs: Vital Signs 03/03/18 12:00 03/03/18 12:30 03/03/18 13:00 Temperature 98.1 F Pulse Rate 106 H 81 80 Respiratory Rate 28 H 22 18 Blood Pressure 119/81 130/76 128/75 Pulse Oximetry 98 98 99 03/03/18 13:30 03/03/18 14:00 03/03/18 14:30 Temperature Pulse Rate 80 78 81 Respiratory Rate 17 17 17 Blood Pressure 135/75 135/73 128/83 Pulse Oximetry 99 99 98 03/03/18 15:00 03/03/18 15:30 03/03/18 16:00 Temperature 97.8 F Pulse Rate 90 78 78 Respiratory Rate 24 15 17 Blood Pressure 141/91 H 145/76 H 138/91 H Pulse Oximetry 98 98 98 03/03/18 16:30 03/03/18 17:00 03/03/18 17:30 Temperature Pulse Rate 89 86 88 Respiratory Rate 20 20 19 Blood Pressure 135/95 H 132/97 H 135/73 Pulse Oximetry 99 99 99 03/03/18 18:00 03/03/18 18:30 03/03/18 19:00 Temperature Pulse Rate 91 H 92 H 108 H Respiratory Rate 21 20 22 Blood Pressure 137/92 H 137/96 H 135/102 H Pulse Oximetry 99 99 99 03/03/18 19:05 03/03/18 19:31 03/03/18 20:00 Temperature 98.0 F Pulse Rate 103 H 93 H Respiratory Rate 20 22 Blood Pressure 148/106 H 145/102 H Pulse Oximetry 99 98 98 03/03/18 22:00 03/04/18 01:15 Temperature 98.7 F 97.2 F L Pulse Rate 89 98 H Respiratory Rate 16 17 Blood Pressure 125/87 134/89 Pulse Oximetry 99 100 Intake & Output 07/06/18 07/07/18 07/07/18 18:59 06:59 18:59 Intake Total 1620 / 1620 1770 / 1770 1000 / 1000 Output Total 1150 / 1150 850 / 850 Balance 470 / 470 920 / 920 1000 / 1000 Weight 72.3 kg Intake: IV 1120 / 1120 1020 / 1020 1000 / 1000 KCl 20 mEq Premix Inj 20 meq In 100 / 100 100 ml @ 50 mls/hr IV.SIG Q2H [facility] Rx#:[id number] Sodium Acetate Inj 80 MEQ In 1020 / 1020 1020 / 1020 1000 / 1000 D5W Inj 1,000 ML @ 100 mls/hr IV.SIG .[id number] [facility] Rx#: [id number] Oral 500 / 500 750 / 750 Output: Urine Amount (Stoma) 1150 / 1150 275 / 275 Continent Urostomy 225 / 225 75 / 75 Nephrostomy Tube 925 / 925 200 / 200 Wound Drainage 575 / 575 # 1 Right Lower Abdomen 375 / 375 # 2 Right Upper Abdomen 0 / 0 # 3 Left Upper Abdomen 200 / 200 Other: Date of Last Bowel Movement 03/03/18 03/03/18 # Bowel Movements 1 # Incontinent Bowel Movements 1 Narrative: GENERAL: Elderly patient cachectic, appears in not acute distress at this time. SKIN: Pale CARDIOVASCULAR: Regular rate and rhythm without murmurs, gallops, or rubs. RESPIRATORY: Breath sounds equal bilaterally. No accessory muscle use. GASTROINTESTINAL: Abdomen soft, non-tender, nondistended. Nephrostomy tube in place draining yellow urine MUSCULOSKELETAL: No cyanosis, or edema. BACK: Nontender without obvious deformity. No CVA tenderness. Results - Labs CBC & Chem 7: 03/04/18 04:14 03/04/18 04:14 Laboratory Results - last 24 hr 03/03/18 03/03/18 03/03/18 11:43 11:43 11:43 WBC 23.3 H RBC 3.89 L Hgb 10.8 L Hct 32.5 L MCV 83.5 MCH 27.7 MCHC 33.1 RDW 17.4 H Plt Count 191 MPV 8.6 Hematology Comments Sodium 151 H Potassium 2.7 L* Chloride 121 H Carbon Dioxide 16.8 L Anion Gap 13 BUN 73 H Creatinine 2.61 H Estimated GFR 24 L POC Glucose Random Glucose 131 H Calcium 7.0 L* Prot Corrected Calcium 8.2 L Total Protein 4.8 L Random Vancomycin 15.0 03/03/18 03/03/18 03/03/18 12:18 16:33 20:53 WBC RBC Hgb Hct MCV MCH MCHC RDW Plt Count MPV Hematology Comments Sodium Potassium Chloride Carbon Dioxide Anion Gap BUN Creatinine Estimated GFR POC Glucose 138 H 124 H 112 H Random Glucose Calcium Prot Corrected Calcium Total Protein Random Vancomycin 03/04/18 03/04/18 03/04/18 04:12 04:14 04:14 WBC 19.4 H RBC 4.33 L Hgb 11.9 L Hct 36.2 L MCV 83.6 MCH 27.5 MCHC 32.9 RDW 17.7 H Plt Count 181 MPV 9.3 Hematology Comments Sodium 151 H Potassium 3.2 L Chloride 119 H Carbon Dioxide 19.1 L Anion Gap 13 BUN 65 H Creatinine 2.51 H Estimated GFR 25 L POC Glucose 104 Random Glucose 92 Calcium 7.1 L* Prot Corrected Calcium 8.1 L Total Protein 5.3 L Random Vancomycin 25.1 03/04/18 08:13 WBC RBC Hgb Hct MCV MCH MCHC RDW Plt Count MPV Hematology Comments Sodium Potassium Chloride Carbon Dioxide Anion Gap BUN Creatinine Estimated GFR POC Glucose 114 H Random Glucose Calcium Prot Corrected Calcium Total Protein Random Vancomycin Microbiology 02/28/18 22:09 Blood - Peripheral Aerobic Blood Culture - Preliminary No growth in 4 days 02/28/18 22:09 Blood - Peripheral Anaerobic Blood Culture - Preliminary No growth in 4 days 02/28/18 21:54 Blood - Peripheral Aerobic Blood Culture - Final S. aureus MRSA 02/28/18 21:54 Blood - Peripheral Anaerobic Blood Culture - Preliminary No growth in 4 days - Imaging Impressions Abdomen/Bladder Ultrasound 03/03/18 00:00 CONCLUSION: 1. Bilateral nephrostomy tubes in place. No definite hydronephrosis. 2. Increased echogenicity of the renal parenchyma bilaterally consistent with chronic medical renal disease. 3. Bilateral renal cysts and bilateral stones. Assessment and Plan - Plan 78 yo M with obstructive uropathy and obstructive urosepsis, MRSA bacteremia, C. Diff colitis with end-organ dysfunction. clinically improving. Metabolic derangements slowly improving. With dysphagia do swallow eval Acute metabolic encephalopathy secondary to severe sepsis- resolved Acute urinary tract infection Severe sepsis with end-organ dysfunction - present on admission, slowly improving. Acute kidney injury- slowly improving but persistent Obstructive uropathy Obstructive Nephrolithiasis Hypernatremia- stable, slowly resolving. Non-anion gap metabolic acidosis- resolving. Hyperchloremia- resolving. Hypocalcemia- resolving. Hypoglycemia- resolving. Anemia, likely secondary to acute blood loss- stable. Dysphagia Continue IV fluids. Monitor glucose level, q4h Accu-Cheks Monitor renal ultrasound to ensure patency of nephrostomy tubes given persistence in elevated Cr. Continue midodrine for bp support (family states blood pressure is typically in 80s at home) Monitor cbc, bmp Continue cefepime iv for full 7 days given clinical history to suggest obstructive urosepsis, despite urine culture without data. anticipated stop date 03/06. Continue PO flagyl, PO vanc for c. diff IV vanc for MRSA bacteremia 09/01 bottles. Will consult infectious disease. Repeat blood cultures. 2d echo 03/02 negative for vegetations, but poor windows. Consult PT for evaluation and OT as well for evaluation. Speech therapy consulted for swallow evaluation. DVT prophylaxis SQH 5000 q12h, monitor daily cbc. hold if worsening anemia develops. Discussed with the patient, nurse
[2018-03-05] MEDS: metroNIDAZOLE 500 MG Tablet PO SCH ×3 (00:30→12:46)
[2018-03-05] MEDS: WATER IV.SIG SCH ×6 (06:39→21:50)
[2018-03-05] MEDS: SODIUM ACETATE IV.SIG SCH ×6 (06:39→21:50)
[2018-03-05] MEDS: DEXTROSE 5% IV.SIG SCH ×6 (06:39→21:50)
[2018-03-05 06:59] LABS: Baso % (Auto) 0.5 % (0.0-2.0); Eos # (Auto) 0.3 th/mm3 (0.0-0.4); Eos % (Auto) 3.2 % (0.0-4.0); Hematocrit 31.7 % (39.0-51.0); Hemoglobin 10.6 gm/dL (13.0-17.0); Lymph % (Auto) 10.6 % (9.0-44.0); Mean Corpuscular HGB Conc 33.5 % (32.0-36.0); Mean Corpuscular Hemoglobin 28.1 pg (27.0-34.0); Mean Corpuscular Volume 83.8 fL (80.0-100.0); Mean Platelet Volume 8.6 fL (7.0-11.0); Mono # (Auto) 0.6 th/mm3 (0.0-0.9); Mono % (Auto) 6.5 % (0.0-8.0); Neut # (Auto) 7.7 th/mm3 (1.8-7.7); Neut % (Auto) 79.2 % (16.0-70.0); Platelet Count 166 th/mm3 (150-450); Red Blood Count 3.79 mil/mm3 (4.50-5.90); Red Cell Distribution Width 17.9 % (11.6-17.2); White Blood Count 9.7 th/mm3 (4.0-11.0)
[2018-03-05 07:36] LABS: Albumin 1.8 g/dL (3.4-5.0); Calcium 7.2 mg/dL (8.5-10.1); Carbon Dioxide 24.2 meq/L (21.0-32.0); Total Protein 4.7 g/dL (6.4-8.2); Vancomycin,Random 21.5 Comment
[2018-03-05] MEDS: Heparin - SQ 10,000 UNITS/ML Vial SQ SCH ×2 (08:00→21:50)
[2018-03-05 08:17] LABS: Potassium 2.9 meq/L (3.5-5.1)
--- NOTE | 2018-03-05 10:08 | P.PN ---
Physical Exam Vital signs: Vital Signs 03/04/18 12:00 03/04/18 16:00 03/04/18 20:00 Temperature 97.3 F L 97.2 F L 97.5 F L Pulse Rate 100 H 85 94 H Respiratory Rate 16 18 20 Blood Pressure 128/88 134/96 H 113/76 Pulse Oximetry 99 100 99 03/05/18 00:00 03/05/18 08:00 Temperature 97.6 F 97.2 F L Pulse Rate 80 83 Respiratory Rate 20 17 Blood Pressure 125/75 117/76 Pulse Oximetry 98 97 Intake & Output 03/04/18 03/05/18 03/05/18 18:59 06:59 18:59 Intake Total 2620 / 2620 1000 / 1000 Output Total 500 / 500 2550 / 2550 Balance 2120 / 2120 -1550 / -1550 Weight 72.5 kg Intake: IV 1999 1000 / 1000 Sodium Acetate Inj 80 MEQ In 1999 1000 / 1000 D5W Inj 1,000 ML @ 100 mls/hr IV.SIG .[id number] [facility] Rx#: [id number] Oral 620 / 620 Output: Urine 500 / 500 Wound Drainage 2550 / 2550 # 1 Right Lower Abdomen 1075 / 1075 # 2 Right Upper Abdomen 725 / 725 # 3 Left Upper Abdomen 750 / 750 Other: # Bowel Movements 3 1 Narrative: GENERAL: Elderly patient cachectic, appears in not acute distress at this time. SKIN: Pale CARDIOVASCULAR: Regular rate and rhythm without murmurs, gallops, or rubs. RESPIRATORY: Breath sounds equal bilaterally. No accessory muscle use. GASTROINTESTINAL: Abdomen soft, non-tender, nondistended. Nephrostomy tube in place draining yellow urine MUSCULOSKELETAL: No cyanosis, or edema. BACK: Nontender without obvious deformity. No CVA tenderness. Results - Labs CBC & Chem 7: 03/05/18 06:09 03/05/18 06:09 Laboratory Results - last 24 hr 03/04/18 03/04/18 03/05/18 18:06 19:42 06:09 WBC RBC Hgb Hct MCV MCH MCHC RDW Plt Count MPV Neut % (Auto) Lymph % (Auto) [place] % (Auto) Eos % (Auto) Baso % (Auto) Neut # (Auto) Lymph # (Auto) [place] # (Auto) Eos # (Auto) Baso # (Auto) WBC Differential Differential Comment APTT 31.5 H Sodium 148 H Potassium 2.9 L* Chloride 113 H Carbon Dioxide 24.2 Anion Gap 11 BUN 57 H Creatinine 2.24 H Estimated GFR 28 L POC Glucose 124 H Random Glucose 94 Calcium 7.2 L* Prot Corrected Calcium 8.5 Total Bilirubin 0.6 AST 48 H ALT 47 Alkaline Phosphatase 113 Total Protein 4.7 L D Albumin 1.8 L Random Vancomycin 21.5 03/05/18 03/05/18 03/05/18 06:09 06:09 07:53 WBC 9.7 RBC 3.79 L Hgb 10.6 L Hct 31.7 L MCV 83.8 MCH 28.1 MCHC 33.5 RDW 17.9 H Plt Count 166 MPV 8.6 Neut % (Auto) 79.2 H Lymph % (Auto) 10.6 [place] % (Auto) 6.5 Eos % (Auto) 3.2 Baso % (Auto) 0.5 Neut # (Auto) 7.7 Lymph # (Auto) 1.0 [place] # (Auto) 0.6 Eos # (Auto) 0.3 Baso # (Auto) 0.0 WBC Differential . Differential Comment Auto diff final APTT 35.2 H Sodium Potassium Chloride Carbon Dioxide Anion Gap BUN Creatinine Estimated GFR POC Glucose 107 Random Glucose Calcium Prot Corrected Calcium Total Bilirubin AST ALT Alkaline Phosphatase Total Protein Albumin Random Vancomycin Microbiology 02/28/18 22:09 Blood - Peripheral Aerobic Blood Culture - Preliminary No growth in 4 days 02/28/18 22:09 Blood - Peripheral Anaerobic Blood Culture - Preliminary No growth in 4 days 02/28/18 21:54 Blood - Peripheral Aerobic Blood Culture - Final S. aureus MRSA 02/28/18 21:54 Blood - Peripheral Anaerobic Blood Culture - Preliminary No growth in 4 days Assessment and Plan - Plan 78 yo M with obstructive uropathy and obstructive urosepsis, MRSA bacteremia, C. Diff colitis with end-organ dysfunction. clinically improving. Metabolic derangements slowly improving. With dysphagia do swallow eval Acute metabolic encephalopathy secondary to severe sepsis on admission- resolved Acute urinary tract infection, complicated UTI with bilateral nephrostomies in place Urostomy in place MRSA bacteremia Left 18 peritrochanteric fracture with nailing placed 2011 Recurrent C. difficile positive diarrhea Severe sepsis with end-organ dysfunction - present on admission, slowly improving. Acute kidney injury on CKD slowly improving but persistent Obstructive uropathy Obstructive Nephrolithiasis Hypernatremia- stable, slowly resolving. Non-anion gap metabolic acidosis- resolving. Hyperchloremia- resolving. Hypocalcemia- resolving. Hypoglycemia- resolving. Anemia, likely secondary to acute blood loss- stable. Dysphagia, passed swallow evaluation Persistent hypokalemia. Replace monitor the level back brace as needed Continue IV fluids. Monitor glucose level, q4h Accu-Cheks Monitor renal ultrasound to ensure patency of nephrostomy tubes given persistence in elevated Cr. Continue midodrine for bp support (family states blood pressure is typically in 80s at home) Monitor cbc, bmp Received cefepime iv for full 7 days given clinical history to suggest obstructive urosepsis, despite urine culture without data Observe off Cefepime. Continue PO vanc for c. diff IV vanc for MRSA bacteremia 09/01 bottles. Consult infectious disease. Repeat blood cultures. DC vanco IV (has Acute on chronic renal failure not HD dependent) Start Daptomycin IV (will follow left hip and other sites for source of bacteremia repeat blood cultures Continue Oral Vanco for Cdiff Stop Flagyl oral as it be contributing to poor oral intake. Follow cultures Follow clinically. 2d echo 03/02 negative for vegetations, but poor windows. Repeat 2 D ECHO per id recs Consult PT for evaluation and OT as well for evaluation. Speech therapy consulted for swallow evaluation. Past swallow evaluation. DVT prophylaxis SQH 5000 q12h, monitor daily cbc. hold if worsening anemia develops. Discussed with the patient, nurse Discharge plan. Discharge when improved improved and cleared by consultants. Patient likely will need halfway facility
[2018-03-05] MEDS ORDERED: Potassium Bicarbonate 25 MEQ Effervescent Tablet PO ONE (10:15)
--- NOTE | 2018-03-05 13:16 | P.CONID ---
History of Present Illness Service: ID Consult date: 03/05/18 Requesting Physician: Jess Hancock Reason for Consult: Evaluation and management of MRSA bacteremia Primary Care Provider: UNKNOWN Chief Complaint: hypotension History of Present Illness: Mr. Redmond is a 78-year-old male with past medical history significant for kidney stones, prostate cancer as well as renal failure. Patient is well known to Urology service and has h/o Bladder cancer, s/p cystectomy, ileal conduit and chemoradiation many years ago in [place]. He also has h /o recurrent UTIs and b/l obstructing renal stones. He had right nep-u tube in the past which came out on its own in September 2017. He was seen at the urology office at that time and wanted to try to stay without any reinsertion of tubes. He had Acute renal failure then but refused Nephrostomies per urology notes. His urologist is . Patient has also been treated in past for Gram negative bacteremia, sepsis related to complicated UTI in November 2017. Patient was admitted on February 28, 2018 given IV fluids and a percutaneous nephrostomy tube was placed by IR. Patient was persistently hypotensive and therefore had to be transferred to the ICU for further resuscitation. Critical care medicine was involved with the case. After resuscitation patient seemed to have done well patient currently has 2 nephrostomy tubes bilaterally as well as a urostomy in place. Positive for C. difficile and is currently undergoing treatment for the same. Patient reports being admitted in November 2017 thereafter has not had any admissions or procedures. Patient reports he is a resident of a long-term rehab. Of note patient has a November 2017 admission for Left hip trochanteric fracture and Intertrochanteric nail placement by . Infectious diseases consulted for evaluation and management of complicated UTI, MRSA bacteremia 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, Family Member - Medical History Medical History: Medical History (Last Updated 03/05/18 @ 13:35 by Saba Hunt MD) COPD (chronic obstructive pulmonary disease) H/O reduction of nasal fracture History of Clostridium difficile infection Intertrochanteric fracture of left hip Kidney stones Nasal bones, closed fracture Prostate cancer Renal failure Subdural hematoma Trochanteric fracture of femur - Surgical History Surgical History: Surgical History (Last Updated 03/05/18 @ 13:24 by Saba Hunt MD) History of urostomy Nephrostomy status - Tobacco History Second Hand Smoke Exposure: No Tobacco Use In Past 30 Days: No Smoking Status: Former smoker (Patient stop smoking in 1984) Tobacco Type: Cigarettes - Alcohol History How Often Do You Have a Drink Containing Alcohol: Never - Substance Use History Substance History: No History of Abuse - Travel History Recent Travel in the [place] Within the Last 8 Weeks: No Recent Travel Out of the Country Within the Last 8 Weeks: No - Immunization History Tetanus Immunization: Unsure Hx Influenza Vaccine This Season: No Medications and Allergies Active Medications: Active Medications Dextrose (D50w Vial) 50 ml IV.PUSH UNSCH PRN PRN Reason: PER HYPOGLYCEMIA PROTOCOL Glucagon (Glucagon Inj) 1 mg OTHER PRN PRN PRN Reason: for Hypoglycemia Protocol Heparin Sodium (Porcine) (Heparin Inj) 5,000 units SQ Q12HR [facility] Last Admin: 03/05/18 08:00 Dose: 5,000 units Cefepime HCl 1,000 mg/ Sodium (Chloride) 100 mls @ 200 mls/hr IV.SIG Q24HR [facility] Stop: 03/06/18 23:59 Sodium Acetate 80 meq/ (Dextrose) 1,020 mls @ 100 mls/hr IV.SIG .[id number] [facility] Last Admin: 03/05/18 08:39 Dose: 100 mls/hr Pharmacy Profile Note (Vancomycin Consult Pharmacy) 0 mls @ 0 mls/hr OTHER UNSCH [facility] Metronidazole (Flagyl) 500 mg PO Q6HR [facility] Last Admin: 03/05/18 12:46 Dose: 500 mg Midodrine (Proamatine) 5 mg PO Q8H [facility] Last Admin: 03/05/18 10:23 Dose: 5 mg Potassium Bicarbonate (Effer-K) 50 meq PO DAILY [facility] Sodium Chloride (Ns Flush) 2 ml IV.FLUSH BID [facility] Last Admin: 03/05/18 07:59 Dose: Not Given Sodium Chloride (Ns Flush) 2 ml IV.FLUSH PRN PRN PRN Reason: FLUSH AFTER USING IV ACCESS Vancomycin HCl (Vancomycin Po) 250 mg PO QID [facility] Last Admin: 03/05/18 12:46 Dose: 250 mg Allergies Allergy/AdvReac Type Severity Reaction Status Date / Time crab Allergy Intermediate Rash Verified 12/08/17 07:56 Home Medications Medication Instructions Recorded Confirmed Type amino acids 3%-lytes-glycerin 5 mg 02/28/18 History [Procalamine 3%] ciprofloxacin HCl [Cipro] 500 mg PO BID 02/28/18 02/28/18 History [id number] 02/28/18 History Exam Vital signs: Vital Signs 03/04/18 16:00 03/04/18 20:00 03/05/18 00:00 Temperature 97.2 F L 97.5 F L 97.6 F Pulse Rate 85 94 H 80 Respiratory Rate 18 20 20 Blood Pressure 134/96 H 113/76 125/75 Pulse Oximetry 100 99 98 03/05/18 08:00 Temperature 97.3 F L Pulse Rate 80 Respiratory Rate 18 Blood Pressure 114/70 Pulse Oximetry 98 Intake & Output 03/04/18 03/05/18 03/05/18 18:59 06:59 18:59 Intake Total 2620 / 2620 1000 / 1000 Output Total 500 / 500 2550 / 2550 Balance 2120 / 2120 -1550 / -1550 Weight 72.5 kg Intake: IV 1999 1000 / 1000 Sodium Acetate Inj 80 MEQ In 1999 1000 / 1000 D5W Inj 1,000 ML @ 100 mls/hr IV.SIG .[id number] [facility] Rx#: [id number] Oral 620 / 620 Output: Urine 500 / 500 Wound Drainage 2550 / 2550 # 1 Right Lower Abdomen 1075 / 1075 # 2 Right Upper Abdomen 725 / 725 # 3 Left Upper Abdomen 750 / 750 Other: # Bowel Movements 3 1 Narrative: GENERAL: Well-nourished well-developed, not in acute distress SKIN: Cool and dry, no generalized rash HEAD: Atraumatic. Normocephalic. No temporal or scalp tenderness. EYES: Pupils equal round and reactive. Scleral icterus. No injection or drainage. No petechia ENT: Nothing abnormal detected NECK: Trachea midline. Supple, nontender, no meningeal signs. CARDIOVASCULAR: HS audible. RESPIRATORY: Clear to auscultation bilaterally. GASTROINTESTINAL: Abdomen soft nontender. Urostomy tube site ok. Bilateral Nephrostomy tubes in place. MUSCULOSKELETAL: Extremities without clubbing, cyanosis. NEUROLOGICAL: Alert oriented 3. Nonfocal. Psych cooperative IV line sites ok. Results - Labs CBC & Chem 7: 03/05/18 06:09 03/05/18 06:09 Labs: Laboratory Results - last 24 hr 03/04/18 03/04/18 03/05/18 18:06 19:42 06:09 WBC RBC Hgb Hct MCV MCH MCHC RDW Plt Count MPV Neut % (Auto) Lymph % (Auto) [place] % (Auto) Eos % (Auto) Baso % (Auto) Neut # (Auto) Lymph # (Auto) [place] # (Auto) Eos # (Auto) Baso # (Auto) WBC Differential Differential Comment APTT 31.5 H Sodium 148 H Potassium 2.9 L* Chloride 113 H Carbon Dioxide 24.2 Anion Gap 11 BUN 57 H Creatinine 2.24 H Estimated GFR 28 L POC Glucose 124 H Random Glucose 94 Calcium 7.2 L* Prot Corrected Calcium 8.5 Total Bilirubin 0.6 AST 48 H ALT 47 Alkaline Phosphatase 113 Total Protein 4.7 L D Albumin 1.8 L Random Vancomycin 21.5 03/05/18 03/05/18 03/05/18 06:09 06:09 07:53 WBC 9.7 RBC 3.79 L Hgb 10.6 L Hct 31.7 L MCV 83.8 MCH 28.1 MCHC 33.5 RDW 17.9 H Plt Count 166 MPV 8.6 Neut % (Auto) 79.2 H Lymph % (Auto) 10.6 [place] % (Auto) 6.5 Eos % (Auto) 3.2 Baso % (Auto) 0.5 Neut # (Auto) 7.7 Lymph # (Auto) 1.0 [place] # (Auto) 0.6 Eos # (Auto) 0.3 Baso # (Auto) 0.0 WBC Differential . Differential Comment Auto diff final APTT 35.2 H Sodium Potassium Chloride Carbon Dioxide Anion Gap BUN Creatinine Estimated GFR POC Glucose 107 Random Glucose Calcium Prot Corrected Calcium Total Bilirubin AST ALT Alkaline Phosphatase Total Protein Albumin Random Vancomycin - Imaging ITS Impressions Chest X-Ray 02/28/18 00:00 CONCLUSION: No acute disease. Abdomen/Pelvis CT 02/28/18 10:26 CONCLUSION: 1. Obstructing calculus left proximal ureter in the region of the UPJ measuring 9 mm. 2. Bilateral nonobstructing renal calculi. 3. Cholelithiasis. 4. Status post cystectomy with right lower quadrant urostomy. 5. Extensive diverticulosis without diverticulitis. 6. Infrarenal abdominal aortic aneurysm measuring 3.5 cm. Nephrostomy 02/28/18 15:20 CONCLUSION: 1. Uncomplicated bilateral nephrostomy tube placement as above. Abdomen/Pelvis CT 03/01/18 10:07 CONCLUSION: 1. Bilateral percutaneous nephrostomy tubes. 2. No retroperitoneal hemorrhage. 3. Bilateral nonobstructing renal calculi. 4. Infrarenal abdominal aortic aneurysm measures 3.6 cm. 5. Cholelithiasis. 6. Small pleural effusions and bibasilar atelectasis. 7. Diverticulosis without diverticulitis. Abdomen/Bladder Ultrasound 03/03/18 00:00 CONCLUSION: 1. Bilateral nephrostomy tubes in place. No definite hydronephrosis. 2. Increased echogenicity of the renal parenchyma bilaterally consistent with chronic medical renal disease. 3. Bilateral renal cysts and bilateral stones. Assessment and Plan - Plan Sepsis on admission Complicated UTI with bilateral nephrostomies in place. Urostomy in place. MRSA bacteremia Left intertrochanteric fracture with nail in place 2011. Recurrent Cdiff positive diarrhea. Acute on chronic renal failure. Recs: DC vanco IV (has Acute on chronic renal failure not HD dependent) Start Daptomycin IV (will follow left hip and other sites for source of bacteremia) Check 2 D ECHO repeat blood cultures Observe off Cefepime as it is stopped. Continue Oral Vanco for Cdiff Stop Flagyl oral as it be contributing to poor oral intake. Follow cultures Follow clinically.
[2018-03-05] MEDS: DAPTOmycin Inj 720 MG in Sodium Chlor 0.9% Inj 100 ML IV.SIG SCH (15:49)
[2018-03-05 20:21] LABS: Hematocrit 31.1 % (39.0-51.0); Hemoglobin 10.8 gm/dL (13.0-17.0)
[2018-03-06 08:43] LABS: Baso % (Auto) 0.5 % (0.0-2.0); Eos # (Auto) 0.2 th/mm3 (0.0-0.4); Eos % (Auto) 3.2 % (0.0-4.0); Hematocrit 29.5 % (39.0-51.0); Lymph # (Auto) 1.2 th/mm3 (1.0-4.8); Lymph % (Auto) 18.9 % (9.0-44.0); Mean Corpuscular HGB Conc 34.1 % (32.0-36.0); Mean Corpuscular Hemoglobin 28.4 pg (27.0-34.0); Mean Corpuscular Volume 83.3 fL (80.0-100.0); Mean Platelet Volume 8.6 fL (7.0-11.0); Mono # (Auto) 0.7 th/mm3 (0.0-0.9); Mono % (Auto) 10.4 % (0.0-8.0); Neut # (Auto) 4.3 th/mm3 (1.8-7.7); Platelet Count 150 th/mm3 (150-450); Red Blood Count 3.54 mil/mm3 (4.50-5.90); Red Cell Distribution Width 17.7 % (11.6-17.2); White Blood Count 6.4 th/mm3 (4.0-11.0)
[2018-03-06] MEDS ORDERED: Potassium Bicarbonate 25 MEQ Effervescent Tablet PO SCH (09:00)
[2018-03-06 09:15] LABS: Calcium 6.7 mg/dL (8.5-10.1); Carbon Dioxide 29.5 meq/L (21.0-32.0)
[2018-03-06 09:26] LABS: Potassium 2.9 meq/L (3.5-5.1)
[2018-03-06] MEDS: DEXTROSE 5% IV.SIG SCH ×4 (09:38)
[2018-03-06] MEDS: WATER IV.SIG SCH ×4 (09:38)
[2018-03-06] MEDS: SODIUM ACETATE IV.SIG SCH ×4 (09:38)
[2018-03-06] MEDS: Heparin - SQ 10,000 UNITS/ML Vial SQ SCH ×2 (09:39→21:17)
[2018-03-06 09:46] LABS: Total Protein 4.4 g/dL (6.4-8.2)
--- NOTE | 2018-03-06 10:19 | P.PN ---
Physical Exam Vital signs: Vital Signs 03/05/18 16:00 03/05/18 20:00 03/06/18 00:00 Temperature 97.7 F 98.2 F 98.1 F Pulse Rate 81 87 92 H Respiratory Rate 17 18 18 Blood Pressure 124/82 120/76 116/72 Pulse Oximetry 98 99 98 Intake & Output 03/05/18 03/06/18 03/06/18 18:59 06:59 18:59 Intake Total 1620 / 1620 Output Total 2350 / 2350 Balance 1620 / 1620 -2350 / -2350 Weight 75.4 kg Intake: IV 1120 / 1120 Cubicin Inj 720 MG In NS Inj 100 / 100 100 ML @ 200 mls/hr IV.SIG Q24H [facility] Rx#:[id number] Sodium Acetate Inj 80 MEQ In 1020 / 1020 D5W Inj 1,000 ML @ 100 mls/hr IV.SIG .[id number] [facility] Rx#: [id number] Oral 500 / 500 Output: Wound Drainage 2350 / 2350 # 1 Right Lower Abdomen 1075 / 1075 # 2 Right Upper Abdomen 450 / 450 # 3 Left Upper Abdomen 825 / 825 Other: # Bowel Movements 0 Narrative: GENERAL: Elderly patient cachectic, appears in not acute distress at this time. SKIN: Pale CARDIOVASCULAR: Regular rate and rhythm without murmurs, gallops, or rubs. RESPIRATORY: Breath sounds equal bilaterally. No accessory muscle use. GASTROINTESTINAL: Abdomen soft, non-tender, nondistended. Urostomy in place. Bilateral Nephrostomy tubes in place draining yellow urine MUSCULOSKELETAL: No cyanosis, or edema. BACK: Nontender without obvious deformity. No CVA tenderness. Results - Labs CBC & Chem 7: 03/06/18 07:11 03/06/18 07:11 Laboratory Results - last 24 hr 03/05/18 03/05/18 03/05/18 18:31 19:57 20:12 WBC RBC Hgb 10.8 L Hct 31.1 L MCV MCH MCHC RDW Plt Count MPV Neut % (Auto) Lymph % (Auto) [place] % (Auto) Eos % (Auto) Baso % (Auto) Neut # (Auto) Lymph # (Auto) [place] # (Auto) Eos # (Auto) Baso # (Auto) WBC Differential Differential Comment APTT Sodium Potassium Chloride Carbon Dioxide Anion Gap BUN Creatinine Estimated GFR POC Glucose 164 H 132 H Random Glucose Calcium Prot Corrected Calcium Total Protein 03/06/18 03/06/18 03/06/18 07:11 07:11 07:11 WBC 6.4 RBC 3.54 L Hgb 10.0 L Hct 29.5 L MCV 83.3 MCH 28.4 MCHC 34.1 RDW 17.7 H Plt Count 150 MPV 8.6 Neut % (Auto) 67.0 Lymph % (Auto) 18.9 [place] % (Auto) 10.4 H Eos % (Auto) 3.2 Baso % (Auto) 0.5 Neut # (Auto) 4.3 Lymph # (Auto) 1.2 [place] # (Auto) 0.7 Eos # (Auto) 0.2 Baso # (Auto) 0.0 WBC Differential . Differential Comment Auto diff final APTT 35.3 H Sodium 144 Potassium 2.9 L* Chloride 105 D Carbon Dioxide 29.5 Anion Gap 10 BUN 46 H Creatinine 2.12 H Estimated GFR 30 L POC Glucose Random Glucose 93 Calcium 6.7 L* Prot Corrected Calcium 8.1 L Total Protein 4.4 L 03/06/18 07:40 WBC RBC Hgb Hct MCV MCH MCHC RDW Plt Count MPV Neut % (Auto) Lymph % (Auto) [place] % (Auto) Eos % (Auto) Baso % (Auto) Neut # (Auto) Lymph # (Auto) [place] # (Auto) Eos # (Auto) Baso # (Auto) WBC Differential Differential Comment APTT Sodium Potassium Chloride Carbon Dioxide Anion Gap BUN Creatinine Estimated GFR POC Glucose 95 Random Glucose Calcium Prot Corrected Calcium Total Protein Microbiology 03/05/18 19:00 Stool Occult Blood - Final Hemoccult positive 03/04/18 18:06 Blood - Peripheral Aerobic Blood Culture - Preliminary No growth in 1 day 03/04/18 18:06 Blood - Peripheral Anaerobic Blood Culture - Preliminary No growth in 1 day 03/04/18 18:00 Blood - Peripheral Aerobic Blood Culture - Preliminary No growth in 1 day 03/04/18 18:00 Blood - Peripheral Anaerobic Blood Culture - Preliminary No growth in 1 day 02/28/18 22:09 Blood - Peripheral Aerobic Blood Culture - Final No growth in 5 days 02/28/18 22:09 Blood - Peripheral Anaerobic Blood Culture - Final No growth in 5 days 02/28/18 21:54 Blood - Peripheral Aerobic Blood Culture - Final S. aureus MRSA 02/28/18 21:54 Blood - Peripheral Anaerobic Blood Culture - Final No growth in 5 days Assessment and Plan - Plan 78 yo M with obstructive uropathy and obstructive urosepsis, MRSA bacteremia, C. Diff colitis with end-organ dysfunction. clinically improving. Metabolic derangements slowly improving. With dysphagia do swallow eval Acute metabolic encephalopathy secondary to severe sepsis on admission- resolved Acute urinary tract infection, complicated UTI with bilateral nephrostomies in place Urostomy in place MRSA bacteremia Left 18 peritrochanteric fracture with nailing placed 2011 Recurrent C. difficile positive diarrhea Severe sepsis with end-organ dysfunction - present on admission, slowly improving. Acute kidney injury on CKD slowly improving but persistent Obstructive uropathy Obstructive Nephrolithiasis Hypernatremia- stable, slowly resolving. Non-anion gap metabolic acidosis- resolving. Hyperchloremia- resolving. Hypocalcemia- resolving. Hypoglycemia- resolving. Anemia, likely secondary to acute blood loss- stable. Dysphagia, passed swallow evaluation Persistent hypokalemia. Replace monitor the level. Start on 1/2 NS with KCL supplement . Monitor mag and K and replace. Change IVF to d5 with 1/2 NS and KCL supplement as patient with severe hypokalemia. . Monitor glucose level, q4h Accu-Cheks Monitor renal ultrasound to ensure patency of nephrostomy tubes given persistence in elevated Cr. Continue midodrine for bp support (family states blood pressure is typically in 80s at home) Monitor cbc, bmp Received cefepime iv for full 7 days given clinical history to suggest obstructive urosepsis, despite urine culture without data Continue Daptomycin IV (will follow left hip and other sites for source of bacteremia) per ID recommendations Observe off Cefepime. Continue PO vanc for c. diff IV vanc for MRSA bacteremia 09/01 bottles. Consult infectious disease. Repeat blood cultures. DC vanco IV (has Acute on chronic renal failure not HD dependent) Start Daptomycin IV (will follow left hip and other sites for source of bacteremia repeat blood cultures Continue Oral Vanco for Cdiff Stop Flagyl oral as it be contributing to poor oral intake. Follow cultures Follow clinically. 2d echo 03/02 negative for vegetations, but poor windows. Repeat 2 D ECHO per id recs Consult PT for evaluation and OT as well for evaluation. Speech therapy consulted for swallow evaluation. Past swallow evaluation. DVT prophylaxis SQH 5000 q12h, monitor daily cbc. hold if worsening anemia develops. Discussed with the patient, nurse, Dr Gilbert REYES Discharge plan. Discharge when improved improved and cleared by consultants. Patient likely will need fpc facility
[2018-03-06] MEDS: KCL 10 mEq/D5W/NaCl 0.45% Inj 1,000 ML IV.CONT SCH ×2 (11:44→23:57)
[2018-03-06] MEDS: DAPTOmycin Inj 720 MG in Sodium Chlor 0.9% Inj 100 ML IV.SIG SCH (15:00)
--- NOTE | 2018-03-06 15:44 | P.PNID ---
Subjective Remarks: Mr. Redmond is a 78-year-old male with past medical history significant for kidney stones, prostate cancer as well as renal failure. Patient is well known to Urology service and has h/o Bladder cancer, s/p cystectomy, ileal conduit and chemoradiation many years ago in [place]. He also has h /o recurrent UTIs and b/l obstructing renal stones. He had right nep-u tube in the past which came out on its own in September 2017. He was seen at the urology office at that time and wanted to try to stay without any reinsertion of tubes. He had Acute renal failure then but refused Nephrostomies per urology notes. His urologist is . Patient has also been treated in past for Gram negative bacteremia, sepsis related to complicated UTI in November 2017. Patient was admitted on February 28, 2018 given IV fluids and a percutaneous nephrostomy tube was placed by IR. Patient was persistently hypotensive and therefore had to be transferred to the ICU for further resuscitation. Critical care medicine was involved with the case. After resuscitation patient seemed to have done well patient currently has 2 nephrostomy tubes bilaterally as well as a urostomy in place. Positive for C. difficile and is currently undergoing treatment for the same. Patient reports being admitted in November 2017 thereafter has not had any admissions or procedures. Patient reports he is a resident of a long-term rehab. Of note patient has a November 2017 admission for Left hip trochanteric fracture and Intertrochanteric nail placement by . Infectious diseases consulted for evaluation and management of complicated UTI, MRSA bacteremia Overnight events reviewed No fevers No rash No diarrhea Antibiotics: Cefepime IV Dapto IV Vanco oral Lines: Lines ok Past Medical History: Medical History COPD (chronic obstructive pulmonary disease) H/O reduction of nasal fracture History of Clostridium difficile infection Intertrochanteric fracture of left hip Kidney stones Nasal bones, closed fracture Prostate cancer Renal failure Subdural hematoma Trochanteric fracture of femur Surgical History: Surgical History History of urostomy Nephrostomy status Allergies/Adverse Reactions: Allergies crab Allergy (Intermediate, Verified 12/08/17 07:56) Rash Blue Shell crab causes severe rash all over face and neck. Needs PCN to help clear it up. Patient CAN eat Shrimp and clams, scallops, oysters without problems. Objective Vital Signs 03/05/18 16:00 03/05/18 20:00 03/06/18 00:00 Temperature 97.7 F 98.2 F 98.1 F Pulse Rate 81 87 92 H Respiratory Rate 17 18 18 Blood Pressure 124/82 120/76 116/72 Pulse Oximetry 98 99 98 03/06/18 08:00 03/06/18 12:00 Temperature 97.6 F 97.8 F Pulse Rate 93 H 69 Respiratory Rate 18 18 Blood Pressure 100/66 101/64 Pulse Oximetry 99 100 Intake & Output 03/05/18 03/06/18 03/06/18 18:59 06:59 18:59 Intake Total 1620 / 1620 Output Total 2350 / 2350 440 / 440 Balance 1620 / 1620 -2350 / -2350 -440 / -440 Weight 75.4 kg Intake: IV 1120 / 1120 Cubicin Inj 720 MG In NS Inj 100 / 100 100 ML @ 200 mls/hr IV.SIG Q24H [facility] Rx#:[id number] Sodium Acetate Inj 80 MEQ In 1020 / 1020 D5W Inj 1,000 ML @ 100 mls/hr IV.SIG .[id number] [facility] Rx#: [id number] Oral 500 / 500 Output: Urine Amount (Stoma) 440 / 440 Continent Urostomy 150 / 150 Nephrostomy Tube 290 / 290 Wound Drainage 2350 / 2350 # 1 Right Lower Abdomen 1075 / 1075 # 2 Right Upper Abdomen 450 / 450 # 3 Left Upper Abdomen 825 / 825 Other: # Bowel Movements 0 03/04/18 18:06 Blood - Peripheral Aerobic Blood Culture - Preliminary No growth in 2 days 03/04/18 18:06 Blood - Peripheral Anaerobic Blood Culture - Preliminary No growth in 2 days 03/04/18 18:00 Blood - Peripheral Aerobic Blood Culture - Preliminary No growth in 2 days 03/04/18 18:00 Blood - Peripheral Anaerobic Blood Culture - Preliminary No growth in 2 days 03/05/18 19:00 Stool Occult Blood - Final Hemoccult positive 02/28/18 22:09 Blood - Peripheral Aerobic Blood Culture - Final No growth in 5 days 02/28/18 22:09 Blood - Peripheral Anaerobic Blood Culture - Final No growth in 5 days 02/28/18 21:54 Blood - Peripheral Aerobic Blood Culture - Final S. aureus MRSA 02/28/18 21:54 Blood - Peripheral Anaerobic Blood Culture - Final No growth in 5 days Lab - Hematology Results 03/05/18 03/05/18 03/06/18 06:09 19:57 07:11 WBC 9.7 6.4 RBC 3.79 L 3.54 L Hgb 10.6 L 10.8 L 10.0 L Hct 31.7 L 31.1 L 29.5 L MCV 83.8 83.3 MCH 28.1 28.4 MCHC 33.5 34.1 RDW 17.9 H 17.7 H Plt Count 166 150 MPV 8.6 8.6 Neut % (Auto) 79.2 H 67.0 Lymph % (Auto) 10.6 18.9 [place] % (Auto) 6.5 10.4 H Eos % (Auto) 3.2 3.2 Baso % (Auto) 0.5 0.5 Neut # (Auto) 7.7 4.3 Lymph # (Auto) 1.0 1.2 [place] # (Auto) 0.6 0.7 Eos # (Auto) 0.3 0.2 Baso # (Auto) 0.0 0.0 WBC Differential . . Differential Comment Auto diff final Auto diff final Lab - Chemistry Results 03/04/18 03/05/18 03/05/18 19:42 06:09 07:53 Sodium 148 H Potassium 2.9 L* Chloride 113 H Carbon Dioxide 24.2 Anion Gap 11 BUN 57 H Creatinine 2.24 H Estimated GFR 28 L POC Glucose 124 H 107 Random Glucose 94 Calcium 7.2 L* Prot Corrected Calcium 8.5 Total Bilirubin 0.6 AST 48 H ALT 47 Alkaline Phosphatase 113 Total Protein 4.7 L D Albumin 1.8 L 03/05/18 03/05/18 03/06/18 18:31 20:12 07:11 Sodium 144 Potassium 2.9 L* Chloride 105 D Carbon Dioxide 29.5 Anion Gap 10 BUN 46 H Creatinine 2.12 H Estimated GFR 30 L POC Glucose 164 H 132 H Random Glucose 93 Calcium 6.7 L* Prot Corrected Calcium 8.1 L Total Bilirubin AST ALT Alkaline Phosphatase Total Protein 4.4 L Albumin 03/06/18 03/06/18 07:40 11:43 Sodium Potassium Chloride Carbon Dioxide Anion Gap BUN Creatinine Estimated GFR POC Glucose 95 118 H Random Glucose Calcium Prot Corrected Calcium Total Bilirubin AST ALT Alkaline Phosphatase Total Protein Albumin Imaging: ITS Impressions Chest X-Ray 02/28/18 00:00 CONCLUSION: No acute disease. Nephrostomy 02/28/18 15:20 CONCLUSION: 1. Uncomplicated bilateral nephrostomy tube placement as above. Abdomen/Pelvis CT 03/01/18 10:07 CONCLUSION: 1. Bilateral percutaneous nephrostomy tubes. 2. No retroperitoneal hemorrhage. 3. Bilateral nonobstructing renal calculi. 4. Infrarenal abdominal aortic aneurysm measures 3.6 cm. 5. Cholelithiasis. 6. Small pleural effusions and bibasilar atelectasis. 7. Diverticulosis without diverticulitis. Abdomen/Bladder Ultrasound 03/03/18 00:00 CONCLUSION: 1. Bilateral nephrostomy tubes in place. No definite hydronephrosis. 2. Increased echogenicity of the renal parenchyma bilaterally consistent with chronic medical renal disease. 3. Bilateral renal cysts and bilateral stones. Physical Exam: GENERAL: Well-nourished well-developed, not in acute distress SKIN: Cool and dry, no generalized rash HEAD: Atraumatic. Normocephalic. No temporal or scalp tenderness. EYES: Pupils equal round and reactive. Scleral icterus. No injection or drainage. No petechia ENT: Nothing abnormal detected NECK: Trachea midline. Supple, nontender, no meningeal signs. CARDIOVASCULAR: HS audible. RESPIRATORY: Clear to auscultation bilaterally. GASTROINTESTINAL: Abdomen soft nontender. Urostomy tube site ok. Bilateral Nephrostomy tubes in place. MUSCULOSKELETAL: Extremities without clubbing, cyanosis. NEUROLOGICAL: Alert oriented 3. Nonfocal. Psych cooperative IV line sites ok. Assessment and Plan - Plan Sepsis on admission Complicated UTI with bilateral nephrostomies in place. Urostomy in place. MRSA bacteremia Left intertrochanteric fracture with nail in place 2011. Recurrent Cdiff positive diarrhea. Acute on chronic renal failure. Recs: Continue Daptomycin IV (will follow left hip and other sites for source of bacteremia) DC Cefepime IV Continue Oral Vanco for Cdiff If febrile again will repeat UA. Follow 2 D ECHO Follow cultures Follow clinically. yady MATIAS
[2018-03-07] MEDS: Potassium Chloride 10 MEQ ER Capsule PO SCH (09:00)
[2018-03-07] MEDS: Heparin - SQ 10,000 UNITS/ML Vial SQ SCH ×2 (09:00→21:24)
[2018-03-07] MEDS: KCL 10 mEq/D5W/NaCl 0.45% Inj 1,000 ML IV.CONT SCH ×2 (12:08→21:36)
--- NOTE | 2018-03-07 13:25 | P.PNID ---
Subjective Remarks: Mr. Redmond is a 78-year-old male with past medical history significant for kidney stones, prostate cancer as well as renal failure. Patient is well known to Urology service and has h/o Bladder cancer, s/p cystectomy, ileal conduit and chemoradiation many years ago in [place]. He also has h /o recurrent UTIs and b/l obstructing renal stones. He had right nep-u tube in the past which came out on its own in September 2017. He was seen at the urology office at that time and wanted to try to stay without any reinsertion of tubes. He had Acute renal failure then but refused Nephrostomies per urology notes. His urologist is . Patient has also been treated in past for Gram negative bacteremia, sepsis related to complicated UTI in November 2017. Patient was admitted on February 28, 2018 given IV fluids and a percutaneous nephrostomy tube was placed by IR. Patient was persistently hypotensive and therefore had to be transferred to the ICU for further resuscitation. Critical care medicine was involved with the case. After resuscitation patient seemed to have done well patient currently has 2 nephrostomy tubes bilaterally as well as a urostomy in place. Positive for C. difficile and is currently undergoing treatment for the same. Patient reports being admitted in November 2017 thereafter has not had any admissions or procedures. Patient reports he is a resident of a long-term rehab. Of note patient has a November 2017 admission for Left hip trochanteric fracture and Intertrochanteric nail placement by . Infectious diseases consulted for evaluation and management of complicated UTI, MRSA bacteremia Overnight events reviewed No fevers No rash No diarrhea Antibiotics: Dapto IV Vanco oral Lines: Lines ok Past Medical History: Medical History COPD (chronic obstructive pulmonary disease) H/O reduction of nasal fracture History of Clostridium difficile infection Intertrochanteric fracture of left hip Kidney stones Nasal bones, closed fracture Prostate cancer Renal failure Subdural hematoma Trochanteric fracture of femur Surgical History: Surgical History History of urostomy Nephrostomy status Allergies/Adverse Reactions: Allergies crab Allergy (Intermediate, Verified 12/08/17 07:56) Rash Blue Shell crab causes severe rash all over face and neck. Needs PCN to help clear it up. Patient CAN eat Shrimp and clams, scallops, oysters without problems. Objective Vital Signs 03/06/18 16:00 03/06/18 20:00 03/07/18 00:00 Temperature 98.0 F 98.2 F 98.4 F Pulse Rate 71 98 H 98 H Respiratory Rate 18 18 18 Blood Pressure 101/76 107/69 103/67 Pulse Oximetry 100 92 L 92 L 03/07/18 08:00 Temperature 98.1 F Pulse Rate 85 Respiratory Rate 18 Blood Pressure 113/75 Pulse Oximetry 97 Intake & Output 03/06/18 03/07/18 03/07/18 18:59 06:59 18:59 Intake Total 880 / 880 2019 1000 / 1000 Output Total 440 / 440 1275 / 1275 Balance 440 / 440 745 / 745 1000 / 1000 Intake: IV 2019 1000 / 1000 D5W/1/2NS + KCL 10 mEq Inj 1, 1000 / 1000 1000 / 1000 000 ML @ 84 mls/hr IV.CONT . [id number] [facility] Rx#:[id number] Sodium Acetate Inj 80 MEQ In 1020 / 1020 D5W Inj 1,000 ML @ 100 mls/hr IV.SIG .[id number] [facility] Rx#: [id number] Oral 880 / 880 Output: Urine 500 / 500 Urine Amount (Stoma) 440 / 440 775 / 775 Continent Urostomy 150 / 150 250 / 250 Nephrostomy Tube 290 / 290 525 / 525 Other: Date of Last Bowel Movement 03/06/18 # Bowel Movements 2 2 03/04/18 18:06 Blood - Peripheral Aerobic Blood Culture - Preliminary No growth in 3 days 03/04/18 18:06 Blood - Peripheral Anaerobic Blood Culture - Preliminary No growth in 3 days 03/04/18 18:00 Blood - Peripheral Aerobic Blood Culture - Preliminary No growth in 3 days 03/04/18 18:00 Blood - Peripheral Anaerobic Blood Culture - Preliminary No growth in 3 days 03/05/18 19:00 Stool Occult Blood - Final Hemoccult positive 02/28/18 22:09 Blood - Peripheral Aerobic Blood Culture - Final No growth in 5 days 02/28/18 22:09 Blood - Peripheral Anaerobic Blood Culture - Final No growth in 5 days 02/28/18 21:54 Blood - Peripheral Aerobic Blood Culture - Final S. aureus MRSA 02/28/18 21:54 Blood - Peripheral Anaerobic Blood Culture - Final No growth in 5 days Lab - Hematology Results 03/05/18 03/06/18 19:57 07:11 WBC 6.4 RBC 3.54 L Hgb 10.8 L 10.0 L Hct 31.1 L 29.5 L MCV 83.3 MCH 28.4 MCHC 34.1 RDW 17.7 H Plt Count 150 MPV 8.6 Neut % (Auto) 67.0 Lymph % (Auto) 18.9 [place] % (Auto) 10.4 H Eos % (Auto) 3.2 Baso % (Auto) 0.5 Neut # (Auto) 4.3 Lymph # (Auto) 1.2 [place] # (Auto) 0.7 Eos # (Auto) 0.2 Baso # (Auto) 0.0 WBC Differential . Differential Comment Auto diff final Lab - Chemistry Results 03/05/18 03/05/18 03/06/18 18:31 20:12 07:11 Sodium 144 Potassium 2.9 L* Chloride 105 D Carbon Dioxide 29.5 Anion Gap 10 BUN 46 H Creatinine 2.12 H Estimated GFR 30 L POC Glucose 164 H 132 H Random Glucose 93 Calcium 6.7 L* Prot Corrected Calcium 8.1 L Total Protein 4.4 L 03/06/18 03/06/18 03/06/18 07:40 11:43 17:05 Sodium Potassium Chloride Carbon Dioxide Anion Gap BUN Creatinine Estimated GFR POC Glucose 95 118 H 118 H Random Glucose Calcium Prot Corrected Calcium Total Protein 03/06/18 03/07/18 03/07/18 20:19 08:19 12:28 Sodium Potassium Chloride Carbon Dioxide Anion Gap BUN Creatinine Estimated GFR POC Glucose 130 H 99 128 H Random Glucose Calcium Prot Corrected Calcium Total Protein Imaging: ITS Impressions Chest X-Ray 02/28/18 00:00 CONCLUSION: No acute disease. Nephrostomy 02/28/18 15:20 CONCLUSION: 1. Uncomplicated bilateral nephrostomy tube placement as above. Abdomen/Pelvis CT 03/01/18 10:07 CONCLUSION: 1. Bilateral percutaneous nephrostomy tubes. 2. No retroperitoneal hemorrhage. 3. Bilateral nonobstructing renal calculi. 4. Infrarenal abdominal aortic aneurysm measures 3.6 cm. 5. Cholelithiasis. 6. Small pleural effusions and bibasilar atelectasis. 7. Diverticulosis without diverticulitis. Abdomen/Bladder Ultrasound 03/03/18 00:00 CONCLUSION: 1. Bilateral nephrostomy tubes in place. No definite hydronephrosis. 2. Increased echogenicity of the renal parenchyma bilaterally consistent with chronic medical renal disease. 3. Bilateral renal cysts and bilateral stones. Physical Exam: GENERAL: Well-nourished well-developed, not in acute distress SKIN: Cool and dry, no generalized rash HEAD: Atraumatic. Normocephalic. No temporal or scalp tenderness. EYES: Pupils equal round and reactive. Scleral icterus. No injection or drainage. No petechia ENT: Nothing abnormal detected NECK: Trachea midline. Supple, nontender, no meningeal signs. CARDIOVASCULAR: HS audible. RESPIRATORY: Clear to auscultation bilaterally. GASTROINTESTINAL: Abdomen soft nontender. Urostomy tube site ok. Bilateral Nephrostomy tubes in place. MUSCULOSKELETAL: Extremities without clubbing, cyanosis. NEUROLOGICAL: Alert oriented 3. Nonfocal. Psych cooperative IV line sites ok. Assessment and Plan - Plan Sepsis on admission Complicated UTI with bilateral nephrostomies in place. Urostomy in place. MRSA bacteremia Left intertrochanteric fracture with nail in place 2011. Recurrent Cdiff positive diarrhea. Acute on chronic renal failure. Recs: Continue Daptomycin IV (will follow left hip and other sites for source of bacteremia) Continue Oral Vanco for Cdiff If febrile again will repeat UA. Follow 2 D ECHO Follow cultures Follow clinically. yady MATIAS
[2018-03-07 14:25] LABS: Baso % (Auto) 0.8 % (0.0-2.0); Eos # (Auto) 0.2 th/mm3 (0.0-0.4); Eos % (Auto) 3.7 % (0.0-4.0); Hematocrit 33.7 % (39.0-51.0); Lymph # (Auto) 1.1 th/mm3 (1.0-4.8); Lymph % (Auto) 22.1 % (9.0-44.0); Mean Corpuscular HGB Conc 32.7 % (32.0-36.0); Mean Corpuscular Hemoglobin 28.1 pg (27.0-34.0); Mean Platelet Volume 8.6 fL (7.0-11.0); Mono # (Auto) 0.4 th/mm3 (0.0-0.9); Mono % (Auto) 8.7 % (0.0-8.0); Neut # (Auto) 3.3 th/mm3 (1.8-7.7); Neut % (Auto) 64.7 % (16.0-70.0); Platelet Count 147 th/mm3 (150-450); Red Blood Count 3.92 mil/mm3 (4.50-5.90); Red Cell Distribution Width 18.6 % (11.6-17.2); White Blood Count 5.2 th/mm3 (4.0-11.0)
[2018-03-07 15:03] LABS: Calcium 6.5 mg/dL (8.5-10.1); Carbon Dioxide 30.7 meq/L (21.0-32.0); Potassium 3.6 meq/L (3.5-5.1)
--- NOTE | 2018-03-07 15:13 | ECHRPT ---
Indication: SEPSIS CONCLUSIONS The left ventricular systolic function is moderately reduced with an estimated ejection fraction in the range of 40-50. Normal left ventricular size. Wall thickness is normal. No regional wall motion abnormalities are present. The aortic valve is mildly thickened/ sclerotic. There is trace tricuspid valve regurgitation. The estimated pulmonary arterial pressure is 31.5 mmHg. The pulmonary valve is not well visualized. 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 BP: / HR: Rhythm: Sinus MEASUREMENTS (Male / Female) Normal Values Technical Quality:Poor 2D ECHO LV Diastolic Diameter PLAX 4.2 cm 4.2 - 5.9 / 3.9 - 5.3 cm LV Systolic Diameter PLAX 3.5 cm IVS Diastolic Thickness 0.9 cm 0.6 - 1.0 / 0.6 - 0.9 cm LVPW Diastolic Thickness 0.6 cm 0.6 - 1.0 / 0.6 - 0.9 cm LV Relative Wall Thickness 0.4 DOPPLER TR Peak Velocity 232.0 cm/s TR Peak Gradient 21.5 mmHg Right Atrial Pressure 10.0 mmHg Pulmonary Artery Systolic Pressu 31.5 mmHg Right Ventricular Systolic Press 31.5 mmHg FINDINGS LEFT VENTRICLE The left ventricular systolic function is moderately reduced with an estimated ejection fraction in the range of 40-50. Normal left ventricular size. Wall thickness is normal. No regional wall motion abnormalities are present. MITRAL VALVE Structurally normal mitral valve. AORTIC VALVE The aortic valve is mildly thickened/ sclerotic. TRICUSPID VALVE Structurally normal tricuspid valve. There is trace tricuspid valve regurgitation. The estimated pulmonary arterial pressure is 31.5 mmHg. PULMONARY VALVE The pulmonary valve is not well visualized. PERICARDIUM No pericardial effusion. Jaydon Randle MD (Electronically Signed) Final Date:07 March 2018 15:12
[2018-03-07] MEDS: DAPTOmycin Inj 720 MG in Sodium Chlor 0.9% Inj 100 ML IV.SIG SCH (15:30)
[2018-03-07 15:37] LABS: Total Protein 4.7 g/dL (6.4-8.2)
--- NOTE | 2018-03-07 16:48 | P.PN ---
Subjective Interval history: In nad No fever or chills. Feesl very tired ca is low replce worjk up in prpgress Eatign better. No chest pain Physical Exam Vital signs: Vital Signs 03/06/18 20:00 03/07/18 00:00 03/07/18 08:00 Temperature 98.2 F 98.4 F 98.1 F Pulse Rate 98 H 98 H 85 Respiratory Rate 18 18 18 Blood Pressure 107/69 103/67 113/75 Pulse Oximetry 92 L 92 L 97 03/07/18 12:00 03/07/18 16:00 Temperature 97.1 F L 98 F Pulse Rate 75 77 Respiratory Rate 18 19 Blood Pressure 128/90 122/88 Pulse Oximetry 100 99 Intake & Output 03/06/18 03/07/18 03/07/18 18:59 06:59 18:59 Intake Total 880 / 880 2019 / 2019 1000 / 1000 Output Total 440 / 440 1275 / 1275 Balance 440 / 440 745 / 745 1000 / 1000 Intake: IV 2019 1000 / 1000 D5W/1/2NS + KCL 10 mEq Inj 1, 1000 / 1000 1000 / 1000 000 ML @ 84 mls/hr IV.CONT . [id number] [facility] Rx#:[id number] Sodium Acetate Inj 80 MEQ In 1020 / 1020 D5W Inj 1,000 ML @ 100 mls/hr IV.SIG .[id number] [facility] Rx#: [id number] Oral 880 / 880 Output: Urine 500 / 500 Urine Amount (Stoma) 440 / 440 775 / 775 Continent Urostomy 150 / 150 250 / 250 Nephrostomy Tube 290 / 290 525 / 525 Other: Date of Last Bowel Movement 03/06/18 # Bowel Movements 2 2 Narrative: GENERAL: Elderly patient cachectic, appears in not acute distress at this time. SKIN: Pale CARDIOVASCULAR: Regular rate and rhythm without murmurs, gallops, or rubs. RESPIRATORY: Breath sounds equal bilaterally. No accessory muscle use. GASTROINTESTINAL: Abdomen soft, non-tender, nondistended. Urostomy in place. Bilateral Nephrostomy tubes in place draining yellow urine MUSCULOSKELETAL: No cyanosis, or edema. BACK: Nontender without obvious deformity. No CVA tenderness. Results - Labs CBC & Chem 7: 03/07/18 13:18 03/07/18 13:18 Laboratory Results - last 24 hr 03/06/18 03/06/18 03/07/18 17:05 20:19 08:19 WBC RBC Hgb Hct MCV MCH MCHC RDW Plt Count MPV Neut % (Auto) Lymph % (Auto) [place] % (Auto) Eos % (Auto) Baso % (Auto) Neut # (Auto) Lymph # (Auto) [place] # (Auto) Eos # (Auto) Baso # (Auto) WBC Differential Differential Comment APTT Sodium Potassium Chloride Carbon Dioxide Anion Gap BUN Creatinine Estimated GFR POC Glucose 118 H 130 H 99 Random Glucose Calcium Prot Corrected Calcium Total Protein Random Vancomycin 03/07/18 03/07/18 03/07/18 12:28 13:18 13:18 WBC 5.2 RBC 3.92 L Hgb 11.0 L Hct 33.7 L MCV 86.0 MCH 28.1 MCHC 32.7 RDW 18.6 H Plt Count 147 L MPV 8.6 Neut % (Auto) 64.7 Lymph % (Auto) 22.1 [place] % (Auto) 8.7 H Eos % (Auto) 3.7 Baso % (Auto) 0.8 Neut # (Auto) 3.3 Lymph # (Auto) 1.1 [place] # (Auto) 0.4 Eos # (Auto) 0.2 Baso # (Auto) 0.0 WBC Differential . Differential Comment Auto diff final APTT 34.4 H Sodium Potassium Chloride Carbon Dioxide Anion Gap BUN Creatinine Estimated GFR POC Glucose 128 H Random Glucose Calcium Prot Corrected Calcium Total Protein Random Vancomycin 03/07/18 13:18 WBC RBC Hgb Hct MCV MCH MCHC RDW Plt Count MPV Neut % (Auto) Lymph % (Auto) [place] % (Auto) Eos % (Auto) Baso % (Auto) Neut # (Auto) Lymph # (Auto) [place] # (Auto) Eos # (Auto) Baso # (Auto) WBC Differential Differential Comment APTT Sodium 143 Potassium 3.6 Chloride 105 Carbon Dioxide 30.7 Anion Gap 7 BUN 33 H Creatinine 1.84 H Estimated GFR 36 L POC Glucose Random Glucose 103 Calcium 6.5 L* Prot Corrected Calcium 7.7 L Total Protein 4.7 L Random Vancomycin 14.0 Microbiology 03/04/18 18:06 Blood - Peripheral Aerobic Blood Culture - Preliminary No growth in 3 days 03/04/18 18:06 Blood - Peripheral Anaerobic Blood Culture - Preliminary No growth in 3 days 03/04/18 18:00 Blood - Peripheral Aerobic Blood Culture - Preliminary No growth in 3 days 03/04/18 18:00 Blood - Peripheral Anaerobic Blood Culture - Preliminary No growth in 3 days Assessment and Plan - Plan 78 yo M with obstructive uropathy and obstructive urosepsis, MRSA bacteremia, C. Diff colitis with end-organ dysfunction. clinically improving. Metabolic derangements slowly improving. With dysphagia do swallow eval Acute metabolic encephalopathy secondary to severe sepsis on admission- resolved Acute urinary tract infection, complicated UTI with bilateral nephrostomies in place Urostomy in place MRSA bacteremia Left 18 peritrochanteric fracture with nailing placed 2011 Recurrent C. difficile positive diarrhea Severe sepsis with end-organ dysfunction - present on admission, slowly improving. Acute kidney injury on CKD slowly improving but persistent Obstructive uropathy Obstructive Nephrolithiasis Hypernatremia- stable, slowly resolving. Non-anion gap metabolic acidosis- resolving. Hyperchloremia- resolving. Hypocalcemia- resolving. Hypoglycemia- resolving. Anemia, likely secondary to acute blood loss- stable. Dysphagia, passed swallow evaluation Persistent hypokalemia. Replace monitor the level. Start on 1/2 NS with KCL supplement . Monitor mag and K and replace. Now with Hypocalcemia. Start po calcium carbonate. Give one dose of Ca gluconate. Check Vit D Change IVF to d5 with 1/2 NS and KCL supplement as patient with severe hypokalemia. . Monitor glucose level, q4h Accu-Cheks Monitor renal ultrasound to ensure patency of nephrostomy tubes given persistence in elevated Cr. Continue midodrine for bp support (family states blood pressure is typically in 80s at home) Monitor cbc, bmp Received cefepime iv for full 7 days given clinical history to suggest obstructive urosepsis, despite urine culture without data Continue Daptomycin IV (will follow left hip and other sites for source of bacteremia) per ID recommendations Observe off Cefepime. Continue PO vanc for c. diff IV vanc for MRSA bacteremia 09/01 bottles. Consult infectious disease. Repeat blood cultures. DC vanco IV (has Acute on chronic renal failure not HD dependent) Start Daptomycin IV (will follow left hip and other sites for source of bacteremia repeat blood cultures Continue Oral Vanco for Cdiff Stop Flagyl oral as it be contributing to poor oral intake. Follow cultures Follow clinically. 2d echo 03/02 negative for vegetations, but poor windows. Repeat 2 D ECHO per id recs Consult PT for evaluation and OT as well for evaluation. Speech therapy consulted for swallow evaluation. Past swallow evaluation. Start po calcium carbonate. Give one dose of Ca gluconate. Check Vit D. Monitor DVT prophylaxis SQH 5000 q12h, monitor daily cbc. hold if worsening anemia develops. Discussed with the patient, nurse Discharge plan. Discharge when improved improved and cleared by consultants. Patient likely will need intermediate facility
[2018-03-07] MEDS ORDERED: SODIUM CHLOR 0.9% IV.SIG SCH (20:00)
[2018-03-07] MEDS ORDERED: CALCIUM CHLORIDE IV.SIG SCH (20:00)
[2018-03-08] MEDS: Potassium Chloride 10 MEQ ER Capsule PO SCH (08:35)
[2018-03-08] MEDS: Heparin - SQ 10,000 UNITS/ML Vial SQ SCH ×2 (08:35→20:51)
[2018-03-08] MEDS: Magnesium Oxide 400 MG Tablet PO SCH (08:36)
[2018-03-08 09:27] LABS: Baso % (Auto) 0.9 % (0.0-2.0); Eos # (Auto) 0.2 th/mm3 (0.0-0.4); Eos % (Auto) 3.7 % (0.0-4.0); Hematocrit 32.2 % (39.0-51.0); Hemoglobin 10.6 gm/dL (13.0-17.0); Lymph # (Auto) 1.1 th/mm3 (1.0-4.8); Lymph % (Auto) 20.6 % (9.0-44.0); Mean Corpuscular Hemoglobin 28.3 pg (27.0-34.0); Mean Corpuscular Volume 85.7 fL (80.0-100.0); Mean Platelet Volume 8.4 fL (7.0-11.0); Mono # (Auto) 0.4 th/mm3 (0.0-0.9); Mono % (Auto) 8.3 % (0.0-8.0); Neut # (Auto) 3.4 th/mm3 (1.8-7.7); Neut % (Auto) 66.5 % (16.0-70.0); Platelet Count 137 th/mm3 (150-450); Red Blood Count 3.76 mil/mm3 (4.50-5.90); Red Cell Distribution Width 17.9 % (11.6-17.2); White Blood Count 5.1 th/mm3 (4.0-11.0)
[2018-03-08 10:26] LABS: Carbon Dioxide 26.8 meq/L (21.0-32.0)
[2018-03-08 10:58] LABS: Total Protein 4.7 g/dL (6.4-8.2)
[2018-03-08] MEDS: DAPTOmycin Inj 720 MG in Sodium Chlor 0.9% Inj 100 ML IV.SIG SCH (14:01)
[2018-03-08] MEDS: KCL 10 mEq/D5W/NaCl 0.45% Inj 1,000 ML IV.CONT SCH (14:02)
--- NOTE | 2018-03-08 17:41 | P.PN ---
Subjective Interval history: Feels tired, wants a popsicle. No fever or chills. No n/v/d/c. Physical Exam Vital signs: Vital Signs 03/07/18 20:00 03/07/18 21:24 03/08/18 00:00 Temperature 97.9 F 98.1 F Pulse Rate 117 H 115 H Respiratory Rate 16 Blood Pressure 115/74 118/79 Pulse Oximetry 99 99 95 03/08/18 08:00 03/08/18 12:00 03/08/18 16:00 Temperature 98.0 F 97.7 F 98.0 F Pulse Rate 98 H 82 83 Respiratory Rate 20 19 19 Blood Pressure 110/75 120/83 117/81 Pulse Oximetry 97 100 99 Intake & Output 03/07/18 03/08/18 03/08/18 18:59 06:59 18:59 Intake Total 1400 / 1400 1240 / 1240 1000 / 1000 Output Total 1475 / 1475 1250 / 1250 Balance -75 / -75 -10 / -10 1000 / 1000 Weight 75 kg Intake: IV 1100 / 1100 1000 / 1000 1000 / 1000 D5W/1/2NS + KCL 10 mEq Inj 1, 1000 / 1000 1000 / 1000 1000 / 1000 000 ML @ 84 mls/hr IV.CONT . [id number] [facility] Rx#:[id number] Cubicin Inj 720 MG In NS Inj 100 / 100 100 ML @ 200 mls/hr IV.SIG Q24H [facility] Rx#:[id number] Oral 300 / 300 240 / 240 Output: Urine 0 / 0 Urine Amount (Stoma) 250 / 250 850 / 850 Continent Urostomy 250 / 250 850 / 850 Wound Drainage 1225 / 1225 400 / 400 Left Posterior Back 175 / 175 0 / 0 Right Posterior Back 1050 / 1050 400 / 400 Other: Date of Last Bowel Movement 03/07/18 03/07/18 # Bowel Movements 1 Narrative: GENERAL: Elderly patient cachectic, appears in not acute distress at this time. SKIN: Pale CARDIOVASCULAR: Regular rate and rhythm without murmurs, gallops, or rubs. RESPIRATORY: Breath sounds equal bilaterally. No accessory muscle use. GASTROINTESTINAL: Abdomen soft, non-tender, nondistended. Urostomy in place. Bilateral Nephrostomy tubes in place draining yellow urine MUSCULOSKELETAL: No cyanosis, or edema. BACK: Nontender without obvious deformity. No CVA tenderness. Results - Labs CBC & Chem 7: 03/08/18 07:45 03/08/18 07:45 Laboratory Results - last 24 hr 03/07/18 03/07/18 03/07/18 17:26 17:33 21:29 WBC RBC Hgb Hct MCV MCH MCHC RDW Plt Count MPV Neut % (Auto) Lymph % (Auto) [place] % (Auto) Eos % (Auto) Baso % (Auto) Neut # (Auto) Lymph # (Auto) [place] # (Auto) Eos # (Auto) Baso # (Auto) WBC Differential Differential Comment APTT Sodium Potassium Chloride Carbon Dioxide Anion Gap BUN Creatinine Estimated GFR POC Glucose 102 104 Random Glucose Calcium Prot Corrected Calcium Magnesium 1.0 L Total Protein Vitamin D 25-Hydroxy 03/07/18 03/08/18 03/08/18 21:35 07:45 07:45 WBC 5.1 RBC 3.76 L Hgb 10.6 L Hct 32.2 L MCV 85.7 MCH 28.3 MCHC 33.0 RDW 17.9 H Plt Count 137 L MPV 8.4 Neut % (Auto) 66.5 Lymph % (Auto) 20.6 [place] % (Auto) 8.3 H Eos % (Auto) 3.7 Baso % (Auto) 0.9 Neut # (Auto) 3.4 Lymph # (Auto) 1.1 [place] # (Auto) 0.4 Eos # (Auto) 0.2 Baso # (Auto) 0.0 WBC Differential . Differential Comment Auto diff final APTT 30.4 H Sodium Potassium Chloride Carbon Dioxide Anion Gap BUN Creatinine Estimated GFR POC Glucose Random Glucose Calcium Prot Corrected Calcium Magnesium Total Protein Vitamin D 25-Hydroxy 54.4 03/08/18 03/08/18 03/08/18 07:45 08:04 11:10 WBC RBC Hgb Hct MCV MCH MCHC RDW Plt Count MPV Neut % (Auto) Lymph % (Auto) [place] % (Auto) Eos % (Auto) Baso % (Auto) Neut # (Auto) Lymph # (Auto) [place] # (Auto) Eos # (Auto) Baso # (Auto) WBC Differential Differential Comment APTT Sodium 141 Potassium 4.0 Chloride 106 Carbon Dioxide 26.8 Anion Gap 8 BUN 28 H Creatinine 1.79 H Estimated GFR 37 L POC Glucose 102 108 Random Glucose 87 Calcium 7.0 L* Prot Corrected Calcium 8.3 L Magnesium Total Protein 4.7 L Vitamin D 25-Hydroxy 03/08/18 16:54 WBC RBC Hgb Hct MCV MCH MCHC RDW Plt Count MPV Neut % (Auto) Lymph % (Auto) [place] % (Auto) Eos % (Auto) Baso % (Auto) Neut # (Auto) Lymph # (Auto) [place] # (Auto) Eos # (Auto) Baso # (Auto) WBC Differential Differential Comment APTT Sodium Potassium Chloride Carbon Dioxide Anion Gap BUN Creatinine Estimated GFR POC Glucose 94 Random Glucose Calcium Prot Corrected Calcium Magnesium Total Protein Vitamin D 25-Hydroxy Microbiology 03/04/18 18:00 Blood - Peripheral Aerobic Blood Culture - Preliminary Staphylococcus coag negative 03/04/18 18:00 Blood - Peripheral Anaerobic Blood Culture - Preliminary No growth in 4 days 03/04/18 18:06 Blood - Peripheral Aerobic Blood Culture - Preliminary No growth in 4 days 03/04/18 18:06 Blood - Peripheral Anaerobic Blood Culture - Preliminary No growth in 4 days Assessment and Plan - Plan 78 yo M with obstructive uropathy and obstructive urosepsis, MRSA bacteremia, C. Diff colitis with end-organ dysfunction. clinically improving. Metabolic derangements slowly improving. With dysphagia do swallow eval Acute metabolic encephalopathy secondary to severe sepsis on admission- resolved Acute urinary tract infection, complicated UTI with bilateral nephrostomies in place Urostomy in place MRSA bacteremia Left 18 peritrochanteric fracture with nailing placed 2011 Recurrent C. difficile positive diarrhea Severe sepsis with end-organ dysfunction - present on admission, slowly improving. Acute kidney injury on CKD slowly improving but persistent Obstructive uropathy Obstructive Nephrolithiasis Hypernatremia- stable, slowly resolving. Non-anion gap metabolic acidosis- resolving. Hyperchloremia- resolving. Hypocalcemia- resolving. Hypoglycemia- resolving. Anemia, likely secondary to acute blood loss- stable. Dysphagia, passed swallow evaluation Persistent hypokalemia. Replace monitor the level. Start on 1/2 NS with KCL supplement . Monitor mag and K and replace. Now with Hypocalcemia. Start po calcium carbonate. Give one dose of Ca gluconate. Check Vit D Change IVF to d5 with 1/2 NS and KCL supplement as patient with severe hypokalemia. . Monitor glucose level, q4h Accu-Cheks Monitor renal ultrasound to ensure patency of nephrostomy tubes given persistence in elevated Cr. Continue midodrine for bp support ([facility] blood pressure is typically in 80s at home) Monitor cbc, bmp Received cefepime iv for full 7 days given clinical history to suggest obstructive urosepsis, despite urine culture without data Continue Daptomycin IV (will follow left hip and other sites for source of bacteremia) per ID recommendations Observe off Cefepime. Continue PO vanc for c. diff IV vanc for MRSA bacteremia / bottles. Consult infectious disease. Repeat blood cultures. DC vanco IV (has Acute on chronic renal failure not HD dependent) Start Daptomycin IV (will follow left hip and other sites for source of bacteremia repeat blood cultures Continue Oral Vanco for Cdiff Stop Flagyl oral as it be contributing to poor oral intake. Follow cultures Follow clinically. 2d echo 03/02 negative for vegetations, but poor windows. Repeat 2 D ECHO per id recs Consult PT for evaluation and OT as well for evaluation. Speech therapy consulted for swallow evaluation. Past swallow evaluation. Start po calcium carbonate. Give one dose of Ca gluconate. Check Vit D. Monitor DVT prophylaxis SQH 5000 q12h, monitor daily cbc. hold if worsening anemia develops. Discussed with the patient, nurse Discharge plan. Discharge when improved improved and cleared by consultants. Patient likely will need halfway facility
[2018-03-09] MEDS: KCL 10 mEq/D5W/NaCl 0.45% Inj 1,000 ML IV.CONT SCH ×4 (03:30→22:36)
[2018-03-09 08:22] LABS: Baso # (Auto) 0.1 th/mm3 (0.0-0.2); Baso % (Auto) 1.1 % (0.0-2.0); Eos # (Auto) 0.1 th/mm3 (0.0-0.4); Eos % (Auto) 1.9 % (0.0-4.0); Hematocrit 31.9 % (39.0-51.0); Hemoglobin 10.3 gm/dL (13.0-17.0); Lymph # (Auto) 1.2 th/mm3 (1.0-4.8); Lymph % (Auto) 20.6 % (9.0-44.0); Mean Corpuscular HGB Conc 32.5 % (32.0-36.0); Mean Corpuscular Hemoglobin 27.9 pg (27.0-34.0); Mean Platelet Volume 8.9 fL (7.0-11.0); Mono # (Auto) 0.6 th/mm3 (0.0-0.9); Mono % (Auto) 9.6 % (0.0-8.0); Neut # (Auto) 3.9 th/mm3 (1.8-7.7); Neut % (Auto) 66.8 % (16.0-70.0); Platelet Count 150 th/mm3 (150-450); Red Blood Count 3.71 mil/mm3 (4.50-5.90); Red Cell Distribution Width 17.7 % (11.6-17.2); White Blood Count 5.8 th/mm3 (4.0-11.0)
[2018-03-09 08:41] LABS: Calcium 6.9 mg/dL (8.5-10.1); Carbon Dioxide 26.7 meq/L (21.0-32.0); Potassium 4.7 meq/L (3.5-5.1)
[2018-03-09 08:57] LABS: Total Protein 5.1 g/dL (6.4-8.2)
[2018-03-09] MEDS: Potassium Chloride 10 MEQ ER Capsule PO SCH (09:31)
[2018-03-09] MEDS: Magnesium Oxide 400 MG Tablet PO SCH (09:31)
[2018-03-09] MEDS: Heparin - SQ 10,000 UNITS/ML Vial SQ SCH ×2 (09:32→22:32)
[2018-03-09] MEDS: DAPTOmycin Inj 720 MG in Sodium Chlor 0.9% Inj 100 ML IV.SIG SCH (15:04)
--- NOTE | 2018-03-09 18:11 | P.PN ---
Subjective Interval history: Feels very tired. He is in bed. Asking for ice cream. Says he was not able to eat breakfast as he has no appetite. No problem with swallowing. Past swallow evaluation. No fever or chills. He is not coughing. No nausea or vomiting. No diarrhea constipation. Physical Exam Vital signs: Vital Signs 03/08/18 20:00 03/08/18 20:44 03/09/18 00:00 Temperature 97.9 F 98.1 F Pulse Rate 89 85 Respiratory Rate 19 19 Blood Pressure 130/88 129/85 Pulse Oximetry 98 98 95 03/09/18 08:00 03/09/18 12:00 Temperature 97.6 F 97.1 F L Pulse Rate 98 H 78 Respiratory Rate 18 17 Blood Pressure 126/77 135/90 Pulse Oximetry 99 100 Intake & Output 03/08/18 03/09/18 03/09/18 18:59 06:59 18:59 Intake Total 1940 / 1940 1120 / 1120 100 / 100 Output Total 1100 / 1100 1150 / 1150 Balance 840 / 840 -30 / -30 100 / 100 Weight 75.1 kg Intake: IV 1100 / 1100 1000 / 1000 100 / 100 D5W/1/2NS + KCL 10 mEq Inj 1, 1000 / 1000 1000 / 1000 000 ML @ 84 mls/hr IV.CONT . [id number] [facility] Rx#:[id number] Cubicin Inj 720 MG In NS Inj 100 / 100 100 / 100 100 ML @ 200 mls/hr IV.SIG Q24H [facility] Rx#:[id number] Oral 840 / 840 120 / 120 Output: Urine Amount (Stoma) 400 / 400 500 / 500 Continent Urostomy 400 / 400 500 / 500 Wound Drainage 700 / 700 650 / 650 Left Posterior Back 250 / 250 300 / 300 Right Posterior Back 450 / 450 350 / 350 Other: # Voids 3 Date of Last Bowel Movement 03/07/18 # Bowel Movements 2 Narrative: GENERAL: Elderly patient cachectic, appears in not acute distress at this time. SKIN: Pale CARDIOVASCULAR: Regular rate and rhythm without murmurs, gallops, or rubs. RESPIRATORY: Breath sounds equal bilaterally. No accessory muscle use. GASTROINTESTINAL: Abdomen soft, non-tender, nondistended. Urostomy in place. Bilateral Nephrostomy tubes in place draining yellow urine MUSCULOSKELETAL: No cyanosis, or edema. BACK: Nontender without obvious deformity. No CVA tenderness. Results - Labs CBC & Chem 7: 03/09/18 07:10 03/09/18 07:10 Laboratory Results - last 24 hr 03/08/18 03/09/18 03/09/18 20:54 07:10 07:10 WBC 5.8 RBC 3.71 L Hgb 10.3 L Hct 31.9 L MCV 86.0 MCH 27.9 MCHC 32.5 RDW 17.7 H Plt Count 150 MPV 8.9 Neut % (Auto) 66.8 Lymph % (Auto) 20.6 [place] % (Auto) 9.6 H Eos % (Auto) 1.9 Baso % (Auto) 1.1 Neut # (Auto) 3.9 Lymph # (Auto) 1.2 [place] # (Auto) 0.6 Eos # (Auto) 0.1 Baso # (Auto) 0.1 WBC Differential . Differential Comment Auto diff final Sodium 141 Potassium 4.7 Chloride 107 Carbon Dioxide 26.7 Anion Gap 7 BUN 23 H Creatinine 1.83 H Estimated GFR 36 L POC Glucose 144 H Random Glucose 87 Calcium 6.9 L* Prot Corrected Calcium 7.9 L Total Protein 5.1 L Microbiology 03/04/18 18:00 Blood - Peripheral Aerobic Blood Culture - Final Staphylococcus epidermidis 03/04/18 18:00 Blood - Peripheral Anaerobic Blood Culture - Final No growth in 5 days 03/08/18 11:15 Blood - Peripheral Aerobic Blood Culture - Preliminary No growth in 1 day 03/08/18 11:15 Blood - Peripheral Anaerobic Blood Culture - Preliminary No growth in 1 day 03/08/18 11:10 Blood - Peripheral Aerobic Blood Culture - Preliminary No growth in 1 day 03/08/18 11:10 Blood - Peripheral Anaerobic Blood Culture - Preliminary No growth in 1 day 03/04/18 18:06 Blood - Peripheral Aerobic Blood Culture - Final No growth in 5 days 03/04/18 18:06 Blood - Peripheral Anaerobic Blood Culture - Final No growth in 5 days Assessment and Plan - Plan 78 yo M with obstructive uropathy and obstructive urosepsis, MRSA bacteremia, C. Diff colitis with end-organ dysfunction. clinically improving. Metabolic derangements slowly improving. With dysphagia do swallow eval Acute metabolic encephalopathy secondary to severe sepsis on admission- resolved Acute urinary tract infection, complicated UTI with bilateral nephrostomies in place Urostomy in place MRSA bacteremia Left 18 peritrochanteric fracture with nailing placed 2011 Recurrent C. difficile positive diarrhea Severe sepsis with end-organ dysfunction - present on admission, slowly improving. Acute kidney injury on CKD slowly improving but persistent Obstructive uropathy Obstructive Nephrolithiasis Hypernatremia- stable, slowly resolving. Non-anion gap metabolic acidosis- resolving. Hyperchloremia- resolving. Hypocalcemia- resolving. Hypoglycemia- resolving. Anemia, likely secondary to acute blood loss- stable. Dysphagia, passed swallow evaluation Persistent hypokalemia. Replace monitor the level. Start on 1/2 NS with KCL supplement . Monitor mag and K and replace. Now with Hypocalcemia. Start po calcium carbonate. Give one dose of Ca gluconate. Check Vit D Change IVF to d5 with 1/2 NS and KCL supplement as patient with severe hypokalemia. . Monitor glucose level, q4h Accu-Cheks Monitor renal ultrasound to ensure patency of nephrostomy tubes given persistence in elevated Cr. Continue midodrine for bp support (family states blood pressure is typically in 80s at home) Monitor cbc, bmp Received cefepime iv for full 7 days given clinical history to suggest obstructive urosepsis, despite urine culture without data Continue Daptomycin IV (will follow left hip and other sites for source of bacteremia) per ID recommendations Observe off Cefepime. Continue PO vanc for c. diff IV vanc for MRSA bacteremia 09/01 bottles. Consult infectious disease. Repeat blood cultures. DC vanco IV (has Acute on chronic renal failure not HD dependent) Start Daptomycin IV (will follow left hip and other sites for source of bacteremia) repeat blood cultures Continue Oral Vanco for Cdiff Stop Flagyl oral as it be contributing to poor oral intake. Follow cultures Follow clinically. 2d echo 03/02 negative for vegetations, but poor windows. Repeat 2 D ECHO per id recs Consult PT for evaluation and OT as well for evaluation. Speech therapy consulted for swallow evaluation. Past swallow evaluation. Start po calcium carbonate. Give one dose of Ca gluconate. Check Vit D. Monitor DVT prophylaxis SQH 5000 q12h, monitor daily cbc. hold if worsening anemia develops. Discussed with the patient, nurse Discharge plan. Discharge when improved and cleared by consultants. Patient will need shelter facility
[2018-03-10] MEDS: KCL 10 mEq/D5W/NaCl 0.45% Inj 1,000 ML IV.CONT SCH ×3 (01:17→23:18)
[2018-03-10] MEDS: Heparin - SQ 10,000 UNITS/ML Vial SQ SCH ×2 (10:09→23:17)
[2018-03-10] MEDS: Magnesium Oxide 400 MG Tablet PO SCH (10:10)
[2018-03-10] MEDS: Potassium Chloride 10 MEQ ER Capsule PO SCH (10:10)
--- NOTE | 2018-03-10 17:38 | P.PN ---
Subjective Interval history: Follow up for MRSA bacteremia, recurrent C. difficile colitis, bilateral hydronephrosis status post percutaneous nephrostomy tube placement by IR. Patient is currently resting in bed. No acute concerns. No fever or chills. Tolerating diet well. Physical Exam Vital signs: Vital Signs 03/09/18 20:30 03/10/18 00:20 03/10/18 08:00 Temperature 97.6 F 98.0 F 98.0 F Pulse Rate 84 82 119 H Respiratory Rate 16 18 20 Blood Pressure 130/84 137/89 122/96 H Pulse Oximetry 96 98 94 L 03/10/18 12:00 Temperature 97.8 F Pulse Rate 86 Respiratory Rate 17 Blood Pressure 119/77 Pulse Oximetry 92 L Intake & Output 03/09/18 03/10/18 03/10/18 18:59 06:59 18:59 Intake Total 1200 / 1200 2762.5 / 2762.5 Output Total 2700 / 2700 Balance 1200 / 1200 62.5 / 62.5 Weight 75 kg Intake: IV 1100 / 1100 2762.5 / 2762.5 D5W/1/2NS + KCL 10 mEq Inj 1, 1000 / 1000 1000 / 1000 000 ML @ 84 mls/hr IV.CONT . [id number] [facility] Rx#:[id number] Cubicin Inj 720 MG In NS Inj 100 / 100 100 ML @ 200 mls/hr IV.SIG Q24H [facility] Rx#:[id number] Oral 100 / 100 Output: Urine Amount (Stoma) 1800 / 1800 Continent Urostomy 1800 / 1800 Wound Drainage 900 / 900 Left Posterior Back 100 / 100 Right Posterior Back 800 / 800 Other: Date of Last Bowel Movement 03/08/18 03/08/18 # Bowel Movements 1 Narrative: GENERAL: Alert, NAD. Nephrostomy tubes in place. SKIN: Warm and dry. HEAD: Normocephalic. EYES: No scleral icterus. No injection or drainage. NECK: Supple, trachea midline. No JVD or lymphadenopathy. CARDIOVASCULAR: Regular rate and rhythm without murmurs, gallops, or rubs. RESPIRATORY: Breath sounds equal bilaterally. No accessory muscle use. GASTROINTESTINAL: Abdomen soft, non-tender, nondistended. MUSCULOSKELETAL: No cyanosis, or edema. BACK: Nontender without obvious deformity. No CVA tenderness. Results - Labs CBC & Chem 7: 03/09/18 07:10 03/09/18 07:10 Laboratory Results - last 24 hr 03/10/18 03/10/18 08:15 11:34 POC Glucose 79 102 Microbiology 03/08/18 11:15 Blood - Peripheral Aerobic Blood Culture - Preliminary No growth in 2 days 03/08/18 11:15 Blood - Peripheral Anaerobic Blood Culture - Preliminary No growth in 2 days 03/08/18 11:10 Blood - Peripheral Aerobic Blood Culture - Preliminary No growth in 2 days 03/08/18 11:10 Blood - Peripheral Anaerobic Blood Culture - Preliminary No growth in 2 days Assessment and Plan - Plan Mr. Redmond is a pleasant 78-year-old male with a history of nephrolithiasis, prostate cancer who was admitted to the hospital due to obstructed uropathy. He underwent percutaneous nephrostomy tube placement by interventional radiology. Due to hypotensive episodes, critical care medicine provided care for this patient and subsequently was transferred to the [facility] floor. He was found to have C. difficile positive and blood culture growing MRSA. Sepsis on admission Complicated UTI with bilateral hydronephrosis MRSA bacteremia Recurrent C. difficile colitis -Patient is currently on daptomycin IV as well as oral vancomycin for C. difficile. -Infectious disease is following. -2D echo was suboptimal. However no vegetations were noted. Full code. Lovenox.
[2018-03-10] MEDS: DAPTOmycin Inj 720 MG in Sodium Chlor 0.9% Inj 100 ML IV.SIG SCH (18:04)
--- NOTE | 2018-03-10 19:11 | P.PNID ---
Subjective Remarks: Mr. Redmond is a 78-year-old male with past medical history significant for kidney stones, prostate cancer as well as renal failure. Patient is well known to Urology service and has h/o Bladder cancer, s/p cystectomy, ileal conduit and chemoradiation many years ago in [place]. He also has h /o recurrent UTIs and b/l obstructing renal stones. He had right nep-u tube in the past which came out on its own in September 2017. He was seen at the urology office at that time and wanted to try to stay without any reinsertion of tubes. He had Acute renal failure then but refused Nephrostomies per urology notes. His urologist is . Patient has also been treated in past for Gram negative bacteremia, sepsis related to complicated UTI in November 2017. Patient was admitted on February 28, 2018 given IV fluids and a percutaneous nephrostomy tube was placed by IR. Patient was persistently hypotensive and therefore had to be transferred to the ICU for further resuscitation. Critical care medicine was involved with the case. After resuscitation patient seemed to have done well patient currently has 2 nephrostomy tubes bilaterally as well as a urostomy in place. Positive for C. difficile and is currently undergoing treatment for the same. Patient reports being admitted in November 2017 thereafter has not had any admissions or procedures. Patient reports he is a resident of a long-term rehab. Of note patient has a November 2017 admission for Left hip trochanteric fracture and Intertrochanteric nail placement by . Infectious diseases consulted for evaluation and management of complicated UTI, MRSA bacteremia Overnight events reviewed No fevers No rash No diarrhea Antibiotics: Dapto IV Vanco oral Lines: Lines ok Past Medical History: Medical History COPD (chronic obstructive pulmonary disease) H/O reduction of nasal fracture History of Clostridium difficile infection Intertrochanteric fracture of left hip Kidney stones Nasal bones, closed fracture Prostate cancer Renal failure Subdural hematoma Trochanteric fracture of femur Surgical History: Surgical History History of urostomy Nephrostomy status Allergies/Adverse Reactions: Allergies crab Allergy (Intermediate, Verified 12/08/17 07:56) Rash Blue Shell crab causes severe rash all over face and neck. Needs PCN to help clear it up. Patient CAN eat Shrimp and clams, scallops, oysters without problems. Objective Vital Signs 03/09/18 20:30 03/10/18 00:20 03/10/18 08:00 Temperature 97.6 F 98.0 F 98.0 F Pulse Rate 84 82 119 H Respiratory Rate 16 18 20 Blood Pressure 130/84 137/89 122/96 H Pulse Oximetry 96 98 94 L 03/10/18 12:00 03/10/18 16:00 Temperature 97.8 F 97.4 F L Pulse Rate 86 87 Respiratory Rate 17 17 Blood Pressure 119/77 124/68 Pulse Oximetry 92 L 97 Intake & Output 03/10/18 03/10/18 03/11/18 06:59 18:59 06:59 Intake Total 2762.5 / 2762.5 700 / 700 Output Total 2700 / 2700 800 / 800 Balance 62.5 / 62.5 -100 / -100 Weight 75 kg Intake: IV 2762.5 / 2762.5 D5W/1/2NS + KCL 10 mEq Inj 1, 1000 / 1000 000 ML @ 84 mls/hr IV.CONT . [id number] [facility] Rx#:[id number] Oral 700 / 700 Output: Urine 800 / 800 Urine Amount (Stoma) 1800 / 1800 Continent Urostomy 1800 / 1800 Wound Drainage 900 / 900 Left Posterior Back 100 / 100 Right Posterior Back 800 / 800 Other: Date of Last Bowel Movement 03/08/18 # Bowel Movements 2 03/08/18 11:15 Blood - Peripheral Aerobic Blood Culture - Preliminary No growth in 2 days 03/08/18 11:15 Blood - Peripheral Anaerobic Blood Culture - Preliminary No growth in 2 days 03/08/18 11:10 Blood - Peripheral Aerobic Blood Culture - Preliminary No growth in 2 days 03/08/18 11:10 Blood - Peripheral Anaerobic Blood Culture - Preliminary No growth in 2 days 03/04/18 18:00 Blood - Peripheral Aerobic Blood Culture - Final Staphylococcus epidermidis 03/04/18 18:00 Blood - Peripheral Anaerobic Blood Culture - Final No growth in 5 days 03/04/18 18:06 Blood - Peripheral Aerobic Blood Culture - Final No growth in 5 days 03/04/18 18:06 Blood - Peripheral Anaerobic Blood Culture - Final No growth in 5 days Lab - Hematology Results 03/09/18 07:10 WBC 5.8 RBC 3.71 L Hgb 10.3 L Hct 31.9 L MCV 86.0 MCH 27.9 MCHC 32.5 RDW 17.7 H Plt Count 150 MPV 8.9 Neut % (Auto) 66.8 Lymph % (Auto) 20.6 [place] % (Auto) 9.6 H Eos % (Auto) 1.9 Baso % (Auto) 1.1 Neut # (Auto) 3.9 Lymph # (Auto) 1.2 [place] # (Auto) 0.6 Eos # (Auto) 0.1 Baso # (Auto) 0.1 WBC Differential . Differential Comment Auto diff final Lab - Chemistry Results 03/08/18 03/09/18 03/10/18 20:54 07:10 08:15 Sodium 141 Potassium 4.7 Chloride 107 Carbon Dioxide 26.7 Anion Gap 7 BUN 23 H Creatinine 1.83 H Estimated GFR 36 L POC Glucose 144 H 79 Random Glucose 87 Calcium 6.9 L* Prot Corrected Calcium 7.9 L Total Protein 5.1 L 03/10/18 11:34 Sodium Potassium Chloride Carbon Dioxide Anion Gap BUN Creatinine Estimated GFR POC Glucose 102 Random Glucose Calcium Prot Corrected Calcium Total Protein Imaging: ITS Impressions Chest X-Ray 02/28/18 00:00 CONCLUSION: No acute disease. Nephrostomy 02/28/18 15:20 CONCLUSION: 1. Uncomplicated bilateral nephrostomy tube placement as above. Abdomen/Pelvis CT 03/01/18 10:07 CONCLUSION: 1. Bilateral percutaneous nephrostomy tubes. 2. No retroperitoneal hemorrhage. 3. Bilateral nonobstructing renal calculi. 4. Infrarenal abdominal aortic aneurysm measures 3.6 cm. 5. Cholelithiasis. 6. Small pleural effusions and bibasilar atelectasis. 7. Diverticulosis without diverticulitis. Abdomen/Bladder Ultrasound 03/03/18 00:00 CONCLUSION: 1. Bilateral nephrostomy tubes in place. No definite hydronephrosis. 2. Increased echogenicity of the renal parenchyma bilaterally consistent with chronic medical renal disease. 3. Bilateral renal cysts and bilateral stones. Physical Exam: GENERAL: Well-nourished well-developed, not in acute distress SKIN: Cool and dry, no generalized rash HEAD: Atraumatic. Normocephalic. No temporal or scalp tenderness. EYES: Pupils equal round and reactive. Scleral icterus. No injection or drainage. No petechia ENT: Nothing abnormal detected NECK: Trachea midline. Supple, nontender, no meningeal signs. CARDIOVASCULAR: HS audible. RESPIRATORY: Clear to auscultation bilaterally. GASTROINTESTINAL: Abdomen soft nontender. Urostomy tube site ok. Bilateral Nephrostomy tubes in place. MUSCULOSKELETAL: Extremities without clubbing, cyanosis. NEUROLOGICAL: Alert oriented 3. Nonfocal. Psych cooperative IV line sites ok. Assessment and Plan - Plan Sepsis on admission Complicated UTI with bilateral nephrostomies in place. Urostomy in place. MRSA bacteremia Left intertrochanteric fracture with nail in place 2011. Recurrent Cdiff positive diarrhea. Acute on chronic renal failure. Recs: Continue Daptomycin IV. Oral Zyvox can be used as alternative if platelets acceptable. (Stop date for MRSA coverage: 03/16/2018) Continue Oral Vanco for Cdiff (stop date: 04/28/2018) If febrile again will repeat UA. Follow 2 D ECHO Follow cultures Follow clinically. yady RN yady Hope above regimen. Needs placement as has nephrostomy tubes and urostomy. Will sign off please call back if any change in clinical condition or questions.
[2018-03-11 06:26] LABS: Baso # (Auto) 0.1 th/mm3 (0.0-0.2); Baso % (Auto) 1.3 % (0.0-2.0); Eos # (Auto) 0.1 th/mm3 (0.0-0.4); Eos % (Auto) 2.7 % (0.0-4.0); Hematocrit 35.4 % (39.0-51.0); Hemoglobin 11.3 gm/dL (13.0-17.0); Lymph # (Auto) 1.3 th/mm3 (1.0-4.8); Lymph % (Auto) 25.4 % (9.0-44.0); Mean Corpuscular HGB Conc 32.1 % (32.0-36.0); Mean Corpuscular Hemoglobin 27.9 pg (27.0-34.0); Mean Platelet Volume 8.7 fL (7.0-11.0); Mono # (Auto) 0.5 th/mm3 (0.0-0.9); Mono % (Auto) 10.2 % (0.0-8.0); Neut % (Auto) 60.4 % (16.0-70.0); Platelet Count 181 th/mm3 (150-450); Red Blood Count 4.06 mil/mm3 (4.50-5.90); Red Cell Distribution Width 17.7 % (11.6-17.2)
[2018-03-11 08:15] LABS: Calcium 7.8 mg/dL (8.5-10.1); Carbon Dioxide 27.2 meq/L (21.0-32.0); Potassium 4.9 meq/L (3.5-5.1)
[2018-03-11] MEDS: Potassium Chloride 10 MEQ ER Capsule PO SCH (09:25)
[2018-03-11] MEDS: Heparin - SQ 10,000 UNITS/ML Vial SQ SCH ×2 (09:25→21:03)
[2018-03-11] MEDS: DAPTOmycin Inj 720 MG in Sodium Chlor 0.9% Inj 100 ML IV.SIG SCH (14:21)
--- NOTE | 2018-03-11 14:53 | P.PN ---
Subjective Interval history: Nursing denies any deterioration since last night. Patient himself says he feels okay. Denies any abdominal pain. Physical Exam Vital signs: Vital Signs 03/10/18 16:00 03/10/18 20:00 03/11/18 00:00 Temperature 97.4 F L 97.8 F 97 F L Pulse Rate 87 101 H 99 H Respiratory Rate 17 18 18 Blood Pressure 124/68 132/89 121/84 Pulse Oximetry 97 100 100 03/11/18 08:00 03/11/18 09:41 03/11/18 11:37 Temperature 97.2 F L 97.4 F L Pulse Rate 90 87 Respiratory Rate 16 16 Blood Pressure 150/100 H 129/98 H 130/77 Pulse Oximetry 98 99 Intake & Output 03/10/18 03/11/18 03/11/18 18:59 06:59 18:59 Intake Total 700 / 700 340 / 340 1000 / 1000 Output Total 800 / 800 2150 / 2150 Balance -100 / -100 -1810 / -1810 1000 / 1000 Intake: IV 100 / 100 1000 / 1000 D5W/1/2NS + KCL 10 mEq Inj 1, 1000 / 1000 000 ML @ 84 mls/hr IV.CONT . [id number] [facility] Rx#:[id number] Cubicin Inj 720 MG In NS Inj 100 / 100 100 ML @ 200 mls/hr IV.SIG Q24H [facility] Rx#:[id number] Oral 700 / 700 240 / 240 Output: Urine 800 / 800 350 / 350 Urine Amount (Stoma) 1800 / 1800 Nephrostomy Tube 1150 / 1150 Right Nephrostomy Tube 650 / 650 Other: Date of Last Bowel Movement 03/09/18 03/09/18 # Bowel Movements 2 Narrative: Abdomen soft, nontender, nondistended Unlabored breathing, no acute distress Results - Labs CBC & Chem 7: 03/12/18 08:55 03/12/18 08:55 Laboratory Results - last 24 hr 03/07/18 03/11/18 03/11/18 21:35 04:58 04:58 WBC 5.0 RBC 4.06 L Hgb 11.3 L Hct 35.4 L MCV 87.0 MCH 27.9 MCHC 32.1 RDW 17.7 H Plt Count 181 MPV 8.7 Neut % (Auto) 60.4 Lymph % (Auto) 25.4 [place] % (Auto) 10.2 H Eos % (Auto) 2.7 Baso % (Auto) 1.3 Neut # (Auto) 3.0 Lymph # (Auto) 1.3 [place] # (Auto) 0.5 Eos # (Auto) 0.1 Baso # (Auto) 0.1 WBC Differential . Differential Comment Auto diff final Sodium 142 Potassium 4.9 Chloride 106 Carbon Dioxide 27.2 Anion Gap 9 BUN 16 Creatinine 1.76 H Estimated GFR 38 L POC Glucose Random Glucose 70 L Calcium 7.8 L D Vit D 1,25-Dihydroxy 13 L 03/11/18 03/11/18 07:58 12:08 WBC RBC Hgb Hct MCV MCH MCHC RDW Plt Count MPV Neut % (Auto) Lymph % (Auto) [place] % (Auto) Eos % (Auto) Baso % (Auto) Neut # (Auto) Lymph # (Auto) [place] # (Auto) Eos # (Auto) Baso # (Auto) WBC Differential Differential Comment Sodium Potassium Chloride Carbon Dioxide Anion Gap BUN Creatinine Estimated GFR POC Glucose 85 153 H Random Glucose Calcium Vit D 1,25-Dihydroxy Microbiology 03/08/18 11:15 Blood - Peripheral Aerobic Blood Culture - Preliminary No growth in 3 days 03/08/18 11:15 Blood - Peripheral Anaerobic Blood Culture - Preliminary No growth in 3 days 03/08/18 11:10 Blood - Peripheral Aerobic Blood Culture - Preliminary No growth in 3 days 03/08/18 11:10 Blood - Peripheral Anaerobic Blood Culture - Preliminary No growth in 3 days Assessment and Plan - Plan Mr. Redmond is a pleasant 78-year-old male with a history of nephrolithiasis, prostate cancer who was admitted to the hospital due to obstructed uropathy. He underwent percutaneous nephrostomy tube placement by interventional radiology. Due to hypotensive episodes, critical care medicine provided care for this patient and [facility] He was found to have C. difficile positive and blood culture growing MRSA. Sepsis on admission - sepsis element resolved Complicated UTI with bilateral hydronephrosis - s/p BL nephrostomy tubes. F/u urology outpt. abx as below. MRSA bacteremia - Patient is currently on daptomycin IV. may transition to oral zyvox per ID for 2 wks pending stable platelets which we will do upon discharge. - repeat cultures negative. Recurrent C. difficile colitis -as well as oral vancomycin for C. difficile per ID. -2D echo was suboptimal. However no vegetations were noted. Discharge planning: pending rehab placement.
[2018-03-12] MEDS: Heparin - SQ 10,000 UNITS/ML Vial SQ SCH ×2 (09:07→23:26)
[2018-03-12] MEDS: Potassium Chloride 10 MEQ ER Capsule PO SCH (09:08)
[2018-03-12 09:32] LABS: Baso # (Auto) 0.1 th/mm3 (0.0-0.2); Baso % (Auto) 1.3 % (0.0-2.0); Eos # (Auto) 0.1 th/mm3 (0.0-0.4); Eos % (Auto) 2.7 % (0.0-4.0); Hematocrit 32.7 % (39.0-51.0); Hemoglobin 10.5 gm/dL (13.0-17.0); Lymph # (Auto) 1.3 th/mm3 (1.0-4.8); Lymph % (Auto) 28.1 % (9.0-44.0); Mean Corpuscular HGB Conc 32.1 % (32.0-36.0); Mean Corpuscular Hemoglobin 27.8 pg (27.0-34.0); Mean Corpuscular Volume 86.6 fL (80.0-100.0); Mean Platelet Volume 8.4 fL (7.0-11.0); Mono # (Auto) 0.5 th/mm3 (0.0-0.9); Mono % (Auto) 10.1 % (0.0-8.0); Neut # (Auto) 2.7 th/mm3 (1.8-7.7); Neut % (Auto) 57.8 % (16.0-70.0); Platelet Count 221 th/mm3 (150-450); Red Blood Count 3.77 mil/mm3 (4.50-5.90); Red Cell Distribution Width 17.2 % (11.6-17.2); White Blood Count 4.6 th/mm3 (4.0-11.0)
[2018-03-12 09:55] LABS: Calcium 8.4 mg/dL (8.5-10.1); Potassium 5.2 meq/L (3.5-5.1)
[2018-03-12] MEDS: DAPTOmycin Inj 720 MG in Sodium Chlor 0.9% Inj 100 ML IV.SIG SCH (14:23)
--- NOTE | 2018-03-12 14:56 | P.PN ---
Subjective Interval history: Nursing denies any deterioration since last night. Patient himself denies any abdominal pain. Is looking forward to being discharged possibly tomorrow. Nursing denies any loose stools or any stools on today's shift for that matter. Physical Exam Vital signs: Vital Signs 03/11/18 16:00 03/11/18 20:00 03/12/18 00:00 Temperature 97.3 F L 98.2 F 98.6 F Pulse Rate 98 H 99 H 117 H Respiratory Rate 18 18 18 Blood Pressure 150/87 H 122/78 120/75 Pulse Oximetry 99 97 98 03/12/18 08:00 03/12/18 12:00 Temperature 98.0 F 97.8 F Pulse Rate 123 H 92 H Respiratory Rate 18 18 Blood Pressure 138/89 116/70 Pulse Oximetry 98 98 Intake & Output 03/11/18 03/12/18 03/12/18 18:59 06:59 18:59 Intake Total 1100 / 1100 125 / 125 Output Total 1050 / 1050 1075 / 1075 Balance 50 / 50 -950 / -950 Intake: IV 1100 / 1100 D5W/1/2NS + KCL 10 mEq Inj 1, 1000 / 1000 000 ML @ 84 mls/hr IV.CONT . [id number] [facility] Rx#:[id number] Cubicin Inj 720 MG In NS Inj 100 / 100 100 ML @ 200 mls/hr IV.SIG Q24H [facility] Rx#:[id number] Oral 125 / 125 Output: Urine Amount (Stoma) 1050 / 1050 1075 / 1075 Continent Urostomy 200 / 200 300 / 300 Nephrostomy Tube 450 / 450 Right Nephrostomy Tube 400 / 400 350 / 350 left nephrostomy tube 425 / 425 Other: Date of Last Bowel Movement 03/09/18 03/11/18 03/11/18 # Bowel Movements 1 Narrative: Bilateral nephrostomy tubes in place surrounding skin appearing normal colored Abdomen is soft, nondistended Results - Labs CBC & Chem 7: 03/13/18 07:45 03/13/18 07:45 Laboratory Results - last 24 hr 03/11/18 03/11/18 03/12/18 17:12 20:57 08:55 WBC 4.6 RBC 3.77 L Hgb 10.5 L Hct 32.7 L MCV 86.6 MCH 27.8 MCHC 32.1 RDW 17.2 Plt Count 221 MPV 8.4 Neut % (Auto) 57.8 Lymph % (Auto) 28.1 [place] % (Auto) 10.1 H Eos % (Auto) 2.7 Baso % (Auto) 1.3 Neut # (Auto) 2.7 Lymph # (Auto) 1.3 [place] # (Auto) 0.5 Eos # (Auto) 0.1 Baso # (Auto) 0.1 WBC Differential . Differential Comment Auto diff final Sodium Potassium Chloride Carbon Dioxide Anion Gap BUN Creatinine Estimated GFR POC Glucose 130 H 108 Random Glucose Calcium 03/12/18 08:55 WBC RBC Hgb Hct MCV MCH MCHC RDW Plt Count MPV Neut % (Auto) Lymph % (Auto) [place] % (Auto) Eos % (Auto) Baso % (Auto) Neut # (Auto) Lymph # (Auto) [place] # (Auto) Eos # (Auto) Baso # (Auto) WBC Differential Differential Comment Sodium 142 Potassium 5.2 H Chloride 106 Carbon Dioxide 29.0 Anion Gap 7 BUN 17 Creatinine 1.94 H Estimated GFR 34 L POC Glucose Random Glucose 79 Calcium 8.4 L Microbiology 03/08/18 11:15 Blood - Peripheral Aerobic Blood Culture - Preliminary No growth in 4 days 03/08/18 11:15 Blood - Peripheral Anaerobic Blood Culture - Preliminary No growth in 4 days 03/08/18 11:10 Blood - Peripheral Aerobic Blood Culture - Preliminary No growth in 4 days 03/08/18 11:10 Blood - Peripheral Anaerobic Blood Culture - Preliminary No growth in 4 days Assessment and Plan - Plan Mr. Redmond is a pleasant 78-year-old male with a history of nephrolithiasis, prostate cancer who was admitted to the hospital due to obstructed uropathy. He underwent percutaneous nephrostomy tube placement by interventional radiology. Due to hypotensive episodes, critical care medicine provided care for this patient and [facility] He was found to have C. difficile positive and blood culture growing MRSA. Sepsis on admission - sepsis element resolved Complicated UTI with bilateral hydronephrosis - s/p BL nephrostomy tubes. F/u urology outpt. abx as below. MRSA bacteremia - Patient is currently on daptomycin IV. may transition to oral zyvox per ID for 2 wks pending stable platelets which we will do upon discharge. - repeat cultures negative. Recurrent C. difficile colitis -as well as oral vancomycin for C. difficile per ID. -2D echo was suboptimal. However no vegetations were noted. -clinically near resolution afib -start lovenox BID and coreg, transition to eliquis or xarelto upon discharge bearing in mind RF Discharge planning: pending rehab placement.
[2018-03-13 09:01] LABS: Baso # (Auto) 0.1 th/mm3 (0.0-0.2); Baso % (Auto) 1.5 % (0.0-2.0); Eos # (Auto) 0.1 th/mm3 (0.0-0.4); Hematocrit 31.3 % (39.0-51.0); Hemoglobin 10.1 gm/dL (13.0-17.0); Lymph # (Auto) 1.3 th/mm3 (1.0-4.8); Lymph % (Auto) 27.5 % (9.0-44.0); Mean Corpuscular HGB Conc 32.3 % (32.0-36.0); Mean Corpuscular Hemoglobin 28.1 pg (27.0-34.0); Mean Platelet Volume 8.7 fL (7.0-11.0); Mono # (Auto) 0.5 th/mm3 (0.0-0.9); Mono % (Auto) 10.9 % (0.0-8.0); Neut # (Auto) 2.7 th/mm3 (1.8-7.7); Neut % (Auto) 57.1 % (16.0-70.0); Platelet Count 243 th/mm3 (150-450); Red Blood Count 3.59 mil/mm3 (4.50-5.90); Red Cell Distribution Width 17.5 % (11.6-17.2); White Blood Count 4.8 th/mm3 (4.0-11.0)
[2018-03-13 09:17] LABS: Calcium 8.6 mg/dL (8.5-10.1); Potassium 5.8 meq/L (3.5-5.1)
[2018-03-13] MEDS: Potassium Chloride 10 MEQ ER Capsule PO SCH (09:25)
[2018-03-13] MEDS: Heparin - SQ 10,000 UNITS/ML Vial SQ SCH (09:26)
[2018-03-13] MEDS ORDERED: Sodium Polystyrene Sulfonate/Sorbitol Liq 15 GM/60 ML UDC PO ONE ×2 (12:00→14:30)
[2018-03-13] MEDS: DAPTOmycin Inj 720 MG in Sodium Chlor 0.9% Inj 100 ML IV.SIG SCH (16:27)
--- NOTE | 2018-03-13 16:46 | P.PN ---
Subjective Interval history: Nursing denies any deterioration since last night. Patient did have elevated potassium this morning. Physical Exam Vital signs: Vital Signs 03/12/18 20:00 03/13/18 00:00 03/13/18 02:01 Temperature 97.8 F 98.6 F Pulse Rate 102 H 135 H 118 H Respiratory Rate 18 18 18 Blood Pressure 100/68 117/87 Pulse Oximetry 99 99 97 03/13/18 08:00 03/13/18 12:00 03/13/18 16:00 Temperature 98.0 F 98.1 F 98.2 F Pulse Rate 101 H 110 H 108 H Respiratory Rate 18 18 18 Blood Pressure 127/92 H 106/74 118/74 Pulse Oximetry 94 L 95 96 Intake & Output 03/12/18 03/13/18 03/13/18 18:59 06:59 18:59 Intake Total 900 / 900 100 / 100 Output Total 1600 / 1600 1400 / 1400 Balance -700 / -700 100 / 100 -1400 / -1400 Intake: IV 100 / 100 Cubicin Inj 720 MG In NS Inj 100 / 100 100 ML @ 200 mls/hr IV.SIG Q24H [facility] Rx#:[id number] Oral 800 / 800 100 / 100 Output: Urine Amount (Stoma) 1600 / 1600 1400 / 1400 Continent Urostomy 250 / 250 100 / 100 Right Nephrostomy Tube 550 / 550 650 / 650 left nephrostomy tube 800 / 800 650 / 650 Other: Date of Last Bowel Movement 03/11/18 03/12/18 03/12/18 # Bowel Movements 0 1 Narrative: Clear lungs bilaterally, unlabored breathing, no acute distress Results - Labs CBC & Chem 7: 03/13/18 07:45 03/13/18 15:25 Laboratory Results - last 24 hr 03/13/18 03/13/18 03/13/18 07:45 07:45 15:25 WBC 4.8 RBC 3.59 L Hgb 10.1 L Hct 31.3 L MCV 87.0 MCH 28.1 MCHC 32.3 RDW 17.5 H Plt Count 243 MPV 8.7 Neut % (Auto) 57.1 Lymph % (Auto) 27.5 [place] % (Auto) 10.9 H Eos % (Auto) 3.0 Baso % (Auto) 1.5 Neut # (Auto) 2.7 Lymph # (Auto) 1.3 [place] # (Auto) 0.5 Eos # (Auto) 0.1 Baso # (Auto) 0.1 WBC Differential . Differential Comment Auto diff final Sodium 140 Potassium 5.8 H 5.2 H Chloride 108 H Carbon Dioxide 25.0 Anion Gap 7 BUN 18 Creatinine 2.12 H Estimated GFR 30 L Random Glucose 70 L Calcium 8.6 Microbiology 03/08/18 11:15 Blood - Peripheral Aerobic Blood Culture - Final No growth in 5 days 03/08/18 11:15 Blood - Peripheral Anaerobic Blood Culture - Final No growth in 5 days 03/08/18 11:10 Blood - Peripheral Aerobic Blood Culture - Final No growth in 5 days 03/08/18 11:10 Blood - Peripheral Anaerobic Blood Culture - Final No growth in 5 days Assessment and Plan - Plan Mr. Redmond is a pleasant 78-year-old male with a history of nephrolithiasis, prostate cancer who was admitted to the hospital due to obstructed uropathy. He underwent percutaneous nephrostomy tube placement by interventional radiology. Due to hypotensive episodes, critical care medicine provided care for this patient and subsequently was transferred to the [facility] floor. He was found to have C. difficile positive and blood culture growing MRSA. Complicated UTI with bilateral hydronephrosis - s/p BL nephrostomy tubes. F/u urology outpt. abx as below. MRSA bacteremia - oral zyvox per ID for 2 wks . - repeat cultures negative. Recurrent C. difficile colitis -as well as oral vancomycin for C. difficile per ID. -2D echo was suboptimal. However no vegetations were noted. -clinically near resolution SANDI on CKD - likely 2/2 poor appetite, appears to be a chronic problem, starting remeron and giving one x NS bolus. AM BMP. afib -lovenox BID and coreg, transition to eliquis or xarelto upon discharge bearing in mind RF Discharge planning: pending rehab placement.
[2018-03-13] MEDS: Enoxaparin Inj 30 MG/0.3 ML Syringe SQ SCH (21:33)
[2018-03-13] MEDS ORDERED: Sod Chloride 0.9% Inj 1,000 ML IV.SIG ONE (22:04)
[2018-03-14 05:45] LABS: Calcium 8.4 mg/dL (8.5-10.1); Carbon Dioxide 26.1 meq/L (21.0-32.0); Potassium 5.2 meq/L (3.5-5.1)
[2018-03-14] MEDS: Enoxaparin Inj 30 MG/0.3 ML Syringe SQ SCH (09:50)
[2018-03-14] MEDS: DAPTOmycin Inj 720 MG in Sodium Chlor 0.9% Inj 100 ML IV.SIG SCH (15:09)
--- NOTE | 2018-03-14 15:12 | P.PN ---
Subjective Interval history: 78-year-old male seen and examined today for follow-up on complicated UTI, C. difficile infection. Patient is laying in bed comfortable. Looks very weak and cachectic. Patient states that he is eager to go home. He is states that he is tolerating diet. Has normal bowel movement. Case management has been consulted for discharge planning. Patient still significantly tachycardic , patient remains afebrile Physical Exam Vital signs: Vital Signs 03/13/18 16:00 03/13/18 20:36 03/14/18 00:52 Temperature 98.2 F 98.8 F 98.1 F Pulse Rate 108 H 109 H 118 H Respiratory Rate 18 17 18 Blood Pressure 118/74 114/79 142/83 H Pulse Oximetry 96 99 96 03/14/18 08:00 Temperature 98.2 F Pulse Rate 136 H Respiratory Rate 18 Blood Pressure 145/88 H Pulse Oximetry 18 L Intake & Output 03/13/18 03/14/18 03/14/18 18:59 06:59 18:59 Intake Total 1020 / 1020 1240 / 1240 Output Total 2250 / 2250 2700 / 2700 Balance -1230 / -1230 -1460 / -1460 Weight 75 kg Intake: IV 100 / 100 1000 / 1000 Cubicin Inj 720 MG In NS Inj 100 / 100 100 ML @ 200 mls/hr IV.SIG Q24H [facility] Rx#:[id number] NS Inj 1,000 ML @ Wide Open IV. 1000 / 1000 SIG BOLUS ONE Rx#:[id number] Oral 920 / 920 240 / 240 Output: Urine Amount (Stoma) 2250 / 2250 Continent Urostomy 100 / 100 Right Nephrostomy Tube 1000 / 1000 left nephrostomy tube 1150 / 1150 Wound Drainage 2700 / 2700 # 1 Right Lower Abdomen 500 / 500 Left Posterior Back 1000 / 1000 Right Posterior Back 1200 / 1200 Other: Date of Last Bowel Movement 03/12/18 # Bowel Movements 1 1 Narrative: GENERAL: Well-developed, cachectic, in no acute distress. alert and orientated HEENT: Head is normocephalic without any lesions or masses noted. Facial features are symmetric. Eyes: Extraocular muscles are intact. Conjunctivae were clear. Oropharyngeal: Pharynx without any erythema edema. Tongue is midline without deviation. Buccal mucosa is moist without any masses or lesions NECK: Supple without any masses. Trachea midline no deviation. No JVD, no bruits are appreciated CARDIAC: Regular rhythm, regular rate. S1/S2 are heard. No murmurs gallops or rubs. LUNGS: Clear to auscultation bilaterally. No wheeze, rhonchi or rales. No use of accessory muscles on inspiration or expiration. ABDOMEN: Soft, nontender. Nondistended. Bowel sounds heard in all 4 quadrants. No organomegaly or masses. Negative rebound, negative guarding. Nephrostomy tubes in place EXTREMITIES: No edema, pulses are equal bilaterally. No cyanosis or clubbing NEUROLOGY: Mood and affect appear appropriate. Cranial nerves II through XII grossly intact. Moving all extremities, speech is clear Results - Labs CBC & Chem 7: 03/13/18 07:45 03/14/18 04:48 Laboratory Results - last 24 hr 03/13/18 03/14/18 15:25 04:48 Sodium 143 Potassium 5.2 H 5.2 H Chloride 110 H Carbon Dioxide 26.1 Anion Gap 7 BUN 18 Creatinine 2.14 H Estimated GFR 30 L Random Glucose 74 Calcium 8.4 L Microbiology 03/08/18 11:15 Blood - Peripheral Aerobic Blood Culture - Final No growth in 5 days 03/08/18 11:15 Blood - Peripheral Anaerobic Blood Culture - Final No growth in 5 days 03/08/18 11:10 Blood - Peripheral Aerobic Blood Culture - Final No growth in 5 days 03/08/18 11:10 Blood - Peripheral Anaerobic Blood Culture - Final No growth in 5 days - Procedures Bilateral nephrostomy tube placement 02/28/18 Assessment and Plan - Plan Severe sepsis shock, resolved -Patient may criteria during initial hospitalization with leukocytosis, hypotension, acute renal failure, urinary tract infection with obstructive uropathy -Patient was continued on vancomycin, cefepime -Patient was found to have complicated urinary tract infections and C. difficile infection -Status post IV fluid boluses, bicarb drip, midodrine Bacteremia -Original culture with MRSA 09/01 -Patient was on vancomycin -Echocardiogram performed which did not indicate any vegetation -Infectious disease evaluated the patient -Recommending daptomycin IV, oral Zyvox can be used as alternative the platelets acceptable, stop date on MRSA coverage 03/16/18 C. difficile infection -Positive culture report on 03/03/18 -Infectious disease recommend continuation of oral vancomycin until 04/28/18 Obstructive uropathy with complicated urinary tract infection -Status post bilateral nephrostomy tubes placed 02/28/18 -Urine culture shows 50-100,000 colonies mixed -Urology evaluated the patient and recommended outpatient follow-up with Dr. Ervin upon discharge Acute renal failure superimposed on chronic kidney disease -Renal functions appear to be stable at this time, likely chronic kidney disease stage III -Potassium still mildly elevated at 5.2, -Continue monitor -Potassium replacement was discontinued Atrial fibrillation -Patient continued on Coreg for rate control -Lovenox for anticoagulation, will transition to Eliquis due to the patient's renal function DVT prevention -Subcutaneous Lovenox Discharge Planning: Discharge planning to longterm facility once arrangements made by case management tomorrow, awaiting [facility] authorization
[2018-03-15 09:25] LABS: Calcium 8.8 mg/dL (8.5-10.1); Carbon Dioxide 24.5 meq/L (21.0-32.0); Potassium 4.8 meq/L (3.5-5.1)
--- NOTE | 2018-03-15 12:11 | P.PN ---
Subjective Interval history: Follow-up for sepsis, bacteremia, C. difficile, obstructive uropathy and SANDI on CKD. Spoke with nurse who reports patient with poor motivation, was rejected from rehab due to poor motivation, case management working on placement. Nurse reports stools are also more formed, no acute complaints or concerns. Patient is seen and examined in bed, appears to be in no acute distress. Patient reports he is cold today, denies any fevers or chills, nausea, vomiting or pain. Physical Exam Vital signs: Vital Signs 03/14/18 16:00 03/14/18 20:00 03/15/18 00:18 Temperature 36.5 C 36.6 C 36.8 C Pulse Rate 92 H 78 104 H Respiratory Rate 18 20 16 Blood Pressure 112/71 136/74 119/76 Pulse Oximetry 97 97 96 03/15/18 08:00 Temperature 36.7 C Pulse Rate 95 H Respiratory Rate 24 Blood Pressure 98/78 L Pulse Oximetry 98 Intake & Output 03/14/18 03/15/18 03/15/18 18:59 06:59 18:59 Intake Total 740 / 740 Output Total 1100 / 1100 1310 / 1310 Balance -360 / -360 -1310 / -1310 Weight 75 kg Intake: IV 100 / 100 Cubicin Inj 720 MG In NS Inj 100 / 100 100 ML @ 200 mls/hr IV.SIG Q24H TRAVIS Rx#:[id number] Oral 640 / 640 Output: Urine Amount (Stoma) 1100 / 1100 Continent Urostomy 175 / 175 Right Nephrostomy Tube 350 / 350 left nephrostomy tube 575 / 575 Wound Drainage 1310 / 1310 # 1 Right Lower Abdomen 60 / 60 Left Posterior Back 500 / 500 Right Posterior Back 750 / 750 Other: Date of Last Bowel Movement 03/15/18 03/15/18 # Bowel Movements 1 1 Narrative: GENERAL: Well-developed, cachectic, in no acute distress. alert and orientated HEENT: Head is normocephalic. Pupils equal round. Conjunctivae were clear. Tongue is midline without deviation. NECK: Supple without any masses. Trachea midline no deviation. No JVD. CARDIAC: Regular rhythm, regular rate. No murmurs gallops or rubs. LUNGS: Clear to auscultation bilaterally. No wheeze, rhonchi or rales. No use of accessory muscles on inspiration or expiration. ABDOMEN: Soft, nontender. Nondistended. Bowel sounds heard in all 4 quadrants. Nephrostomy tubes in place with clear yellow urine. EXTREMITIES: No edema, pulses are equal bilaterally. No cyanosis or clubbing NEUROLOGY: Mood and affect appear appropriate. Cranial nerves II through XII grossly intact. Moving all extremities, speech is clear Results - Labs CBC & Chem 7: 03/13/18 07:45 03/15/18 07:43 Laboratory Results - last 24 hr 03/15/18 07:43 Sodium 141 Potassium 4.8 Chloride 107 Carbon Dioxide 24.5 Anion Gap 10 BUN 18 Creatinine 2.37 H Estimated GFR 27 L Random Glucose 77 Calcium 8.8 - Procedures Bilateral nephrostomy tube placement 02/28/18 Assessment and Plan - Plan Severe sepsis shock, resolved -Patient may criteria during initial hospitalization with leukocytosis, hypotension, acute renal failure, urinary tract infection with obstructive uropathy -Patient was continued on vancomycin, cefepime, now on IV Daptomycin -Patient was found to have complicated urinary tract infections and C. difficile infection -Status post IV fluid boluses, bicarb drip, midodrine - Afebrile without leukocytosis Bacteremia -Original culture with MRSA 09/01 -Patient was on vancomycin -Echocardiogram performed which did not indicate any vegetation -Infectious disease evaluated the patient -Recommending daptomycin IV (03/16/18 end date) , oral Zyvox can be used as alternative the platelets acceptable. C. difficile infection -Positive culture report on 03/03/18 -Infectious disease recommend continuation of oral vancomycin until 04/28/18 -Stools improving in consistency Obstructive uropathy with complicated urinary tract infection -Status post bilateral nephrostomy tubes placed 02/28/18 -Urine culture shows 50-100,000 colonies mixed -Urology evaluated the patient and recommended outpatient follow-up with Dr. Ervin upon discharge -Nephrostomy tubes patent draining clear yellow urine. Acute renal failure superimposed on chronic kidney disease -Renal functions appear to be stable at this time, likely chronic kidney disease stage III -Potassium still mildly elevated at 5.2-->4.8 -Continue monitor Atrial fibrillation -Patient continued on Coreg for rate control -Lovenox D/C, transitioned to Eliquis 2.5mg BID, renally dosed. DVT prevention -Eliquis Discussed with patient and encouraged him to get out of bed with the assistance of nurse and physical therapy. Discussed Condition With: Discussed with patient and nurse. Discharge Planning: Patient will have last dose of daptomycin tomorrow. Denied by initial rehab, case management working on alternative rehab facility, patient encouraged to participate in physical therapy.
[2018-03-15] MEDS: DAPTOmycin Inj 720 MG in Sodium Chlor 0.9% Inj 100 ML IV.SIG SCH (15:05)
--- NOTE | 2018-03-16 11:59 | P.PNIM ---
Subjective Interval history: Patient reports that he is feeling ok except for generalized weakness. Physical Exam Vital signs: Vital Signs 03/15/18 12:00 03/15/18 16:00 03/15/18 20:00 Temperature 97.8 F 98.0 F 97.7 F Pulse Rate 88 92 H 95 H Respiratory Rate 14 12 18 Blood Pressure 102/70 90/61 L 99/58 L Pulse Oximetry 96 96 97 03/16/18 00:00 03/16/18 08:00 Temperature 97.7 F 97.9 F Pulse Rate 130 H 104 H Respiratory Rate 18 17 Blood Pressure 114/70 143/77 H Pulse Oximetry 95 98 Intake & Output 03/15/18 03/16/18 03/16/18 18:59 06:59 18:59 Intake Total 1300 / 1300 Output Total 625 / 625 700 / 700 Balance 675 / 675 -700 / -700 Weight 63.4 kg Intake: IV 100 / 100 Cubicin Inj 720 MG In NS Inj 100 / 100 100 ML @ 200 mls/hr IV.SIG Q24H TRAVIS Rx#:[id number] Oral 1200 / 1200 Output: Urine Amount (Stoma) 700 / 700 Continent Urostomy 50 / 50 Right Nephrostomy Tube 225 / 225 left nephrostomy tube 425 / 425 Wound Drainage 625 / 625 Left Posterior Back 425 / 425 Right Posterior Back 200 / 200 Other: Date of Last Bowel Movement 03/15/18 03/16/18 Narrative: GENERAL: Cachectic, in no acute distress. alert and orientated CARDIAC: Regular rhythm, regular rate. No murmurs gallops or rubs. LUNGS: Clear to auscultation bilaterally. ABDOMEN: Soft, nontender. Nondistended. EXTREMITIES: No edema, pulses are equal bilaterally. No cyanosis or clubbing Results - Labs CBC & Chem 7: 03/13/18 07:45 03/15/18 07:43 - Procedures Bilateral nephrostomy tube placement 02/28/18 Assessment and Plan - Plan Severe sepsis shock, resolved -Patient was found to have complicated urinary tract infections and C. difficile infection -Patient completed treatment with broad spectrum antibiotics. - Monitor Bacteremia -Original culture with MRSA 09/01 -Patient was on vancomycin -Echocardiogram performed which did not indicate any vegetation -Infectious disease followed the patient -Completed treatment with Daptomycin C. difficile infection -Positive culture report on 03/03/18 -Infectious disease recommend continuation of oral vancomycin until 04/28/18 -Stools improving in consistency Obstructive uropathy with complicated urinary tract infection -Status post bilateral nephrostomy tubes placed 02/28/18 -Urine culture shows 50-100,000 colonies mixed -Urology evaluated the patient and recommended outpatient follow-up with Dr. Ervin upon discharge -Nephrostomy tubes patent draining clear yellow urine. Acute renal failure superimposed on chronic kidney disease -Renal functions appear to be stable at this time, likely chronic kidney disease stage III -Continue to monitor Atrial fibrillation -Patient continued on Coreg for rate control -Eliquis 2.5mg BID, renally dosed. Physical deconditioning - Need SNF placement. DVT prevention -Eliquis
[2018-03-16] MEDS: DAPTOmycin Inj 720 MG in Sodium Chlor 0.9% Inj 100 ML IV.SIG SCH (14:59)
--- NOTE | 2018-03-17 15:33 | P.PNIM ---
Subjective Interval history: Patient reports he is feeling ok. He is eager to go to rehab. DW case management. Physical Exam Vital signs: Vital Signs 03/16/18 16:00 03/16/18 20:00 03/17/18 00:00 Temperature 97.3 F L 98.1 F 97.6 F Pulse Rate 91 H 84 80 Respiratory Rate 17 17 17 Blood Pressure 116/75 109/66 106/68 Pulse Oximetry 98 95 97 03/17/18 08:00 03/17/18 12:00 Temperature 97.7 F 97.9 F Pulse Rate 107 H 77 Respiratory Rate 17 18 Blood Pressure 103/74 93/64 L Pulse Oximetry 96 95 Intake & Output 03/16/18 03/17/18 03/17/18 18:59 06:59 18:59 Intake Total 100 / 100 240 / 240 Output Total 500 / 500 525 / 525 Balance -400 / -400 -285 / -285 Intake: IV 100 / 100 Cubicin Inj 720 MG In NS Inj 100 / 100 100 ML @ 200 mls/hr IV.SIG Q24H TRAVIS Rx#:[id number] Oral 240 / 240 Output: Urine Amount (Stoma) 500 / 500 525 / 525 Right Nephrostomy Tube 200 / 200 125 / 125 left nephrostomy tube 300 / 300 400 / 400 Other: # Voids 2 Date of Last Bowel Movement 03/16/18 03/16/18 Narrative: GENERAL: Cachectic, in no acute distress. alert and orientated CARDIAC: Regular rhythm, regular rate. No murmurs gallops or rubs. LUNGS: Clear to auscultation bilaterally. ABDOMEN: Soft, nontender. Nondistended. EXTREMITIES: No edema, pulses are equal bilaterally. No cyanosis or clubbing Results - Labs CBC & Chem 7: 03/13/18 07:45 03/15/18 07:43 - Procedures Bilateral nephrostomy tube placement 02/28/18 Assessment and Plan - Plan Severe sepsis shock, resolved -Patient was found to have complicated urinary tract infections and C. difficile infection -Patient completed treatment with broad spectrum antibiotics. - Monitor Bacteremia -Original culture with MRSA 09/01 -Patient was on vancomycin -Echocardiogram performed which did not indicate any vegetation -Infectious disease followed the patient -Completed treatment with Daptomycin C. difficile infection -Positive culture report on 03/03/18 -Infectious disease recommend continuation of oral vancomycin until 04/28/18 -Stools improving in consistency Obstructive uropathy with complicated urinary tract infection -Status post bilateral nephrostomy tubes placed 02/28/18 -Urine culture shows 50-100,000 colonies mixed -Urology evaluated the patient and recommended outpatient follow-up with Dr. Ervin upon discharge -Nephrostomy tubes patent draining clear yellow urine. Acute renal failure superimposed on chronic kidney disease -Renal functions appear to be stable at this time, likely chronic kidney disease stage III -Continue to monitor Atrial fibrillation -Patient continued on Coreg for rate control -Eliquis 2.5mg BID, renally dosed. Physical deconditioning - Need SNF placement. CM working on placement. Looking [facility]. DVT prevention -Eliquis Discharge Planning: Need SNF placement. CM [facility] at [facility].
--- NOTE | 2018-03-18 14:38 | P.PNIM ---
Subjective Interval history: Patient reports he is feeling okay today. No new issues. Physical Exam Vital signs: Vital Signs 03/17/18 16:00 03/17/18 20:00 03/18/18 00:00 Temperature 97.1 F L 97.9 F 97.5 F L Pulse Rate 110 H 100 H 101 H Respiratory Rate 18 18 18 Blood Pressure 98/65 L 100/79 105/72 Pulse Oximetry 99 91 L 92 L 03/18/18 08:00 03/18/18 12:00 Temperature 97.8 F 97.7 F Pulse Rate 83 89 Respiratory Rate 16 18 Blood Pressure 123/72 96/65 L Pulse Oximetry 95 97 Intake & Output 03/17/18 03/18/18 03/18/18 18:59 06:59 18:59 Intake Total 120 / 120 Output Total 500 / 500 375 / 375 Balance -500 / -500 -255 / -255 Weight 64 kg Intake: Oral 120 / 120 Output: Urine Amount (Stoma) 375 / 375 Continent Urostomy 50 / 50 Right Nephrostomy Tube 75 / 75 left nephrostomy tube 250 / 250 Wound Drainage 500 / 500 # 1 Right Lower Abdomen 100 / 100 Left Posterior Back 400 / 400 Other: # Voids 3 Date of Last Bowel Movement 03/16/18 Narrative: GENERAL: Cachectic, in no acute distress. alert and orientated CARDIAC: Regular rhythm, regular rate. No murmurs gallops or rubs. LUNGS: Clear to auscultation bilaterally. ABDOMEN: Soft, nontender. Nondistended. EXTREMITIES: No edema, pulses are equal bilaterally. No cyanosis or clubbing Results - Labs CBC & Chem 7: 03/13/18 07:45 03/15/18 07:43 - Procedures Bilateral nephrostomy tube placement 02/28/18 Assessment and Plan - Plan Severe sepsis shock, resolved -Patient was found to have complicated urinary tract infections and C. difficile infection -Patient completed treatment with broad spectrum antibiotics. - Monitor Bacteremia -Original culture with MRSA 09/01 -Patient was on vancomycin -Echocardiogram performed which did not indicate any vegetation -Infectious disease followed the patient -Completed treatment with Daptomycin C. difficile infection -Positive culture report on 03/03/18 -Infectious disease recommend continuation of oral vancomycin until 04/28/18 -Stools improving in consistency Obstructive uropathy with complicated urinary tract infection -Status post bilateral nephrostomy tubes placed 02/28/18 -Urine culture shows 50-100,000 colonies mixed -Urology evaluated the patient and recommended outpatient follow-up with Dr. Ervin upon discharge -Nephrostomy tubes patent draining clear yellow urine. Acute renal failure superimposed on chronic kidney disease -Renal functions appear to be stable at this time, likely chronic kidney disease stage III -Continue to monitor Atrial fibrillation -Patient continued on Coreg for rate control -Eliquis 2.5mg BID, renally dosed. Physical deconditioning - Need SNF placement. CM working on placement. Looking at [facility]. DVT prevention -Eliquis Discharge Planning: Possible discharge on Tuesday to [facility].
--- NOTE | 2018-03-19 16:06 | P.PNIM ---
Subjective Interval history: Patient reports he is feeling okay today. No new issues. Physical Exam Vital signs: Vital Signs 03/18/18 20:00 03/19/18 00:00 03/19/18 08:00 Temperature 97.8 F 97.6 F 97.8 F Pulse Rate 90 97 H 98 H Respiratory Rate 16 16 16 Blood Pressure 108/66 96/57 L 95/58 L Pulse Oximetry 98 98 95 03/19/18 12:00 Temperature 97.9 F Pulse Rate 88 Respiratory Rate 16 Blood Pressure 102/61 Pulse Oximetry 99 Intake & Output 03/18/18 03/19/18 03/19/18 18:59 06:59 18:59 Intake Total 620 / 620 900 / 900 Output Total 750 / 750 300 / 300 Balance 620 / 620 150 / 150 -300 / -300 Intake: Oral 620 / 620 900 / 900 Output: Urine Amount (Stoma) 750 / 750 300 / 300 Continent Urostomy 100 / 100 50 / 50 Right Nephrostomy Tube 350 / 350 left nephrostomy tube 300 / 300 250 / 250 Other: Date of Last Bowel Movement 03/19/18 # Bowel Movements 1 Narrative: GENERAL: Cachectic, in no acute distress. alert and orientated CARDIAC: Regular rhythm, regular rate. No murmurs gallops or rubs. LUNGS: Clear to auscultation bilaterally. ABDOMEN: Soft, nontender. Nondistended. EXTREMITIES: No edema, pulses are equal bilaterally. No cyanosis or clubbing Results - Labs CBC & Chem 7: 03/13/18 07:45 03/15/18 07:43 - Procedures Bilateral nephrostomy tube placement 02/28/18 Assessment and Plan - Plan Severe sepsis shock, resolved -Patient was found to have complicated urinary tract infections and C. difficile infection -Patient completed treatment with broad spectrum antibiotics. - Monitor Bacteremia -Original culture with MRSA 09/01 -Patient was on vancomycin -Echocardiogram performed which did not indicate any vegetation -Infectious disease followed the patient -Completed treatment with Daptomycin C. difficile infection -Positive culture report on 03/03/18 -Infectious disease recommend continuation of oral vancomycin until 04/28/18 -Stools improving in consistency Obstructive uropathy with complicated urinary tract infection -Status post bilateral nephrostomy tubes placed 02/28/18 -Urine culture shows 50-100,000 colonies mixed -Urology evaluated the patient and recommended outpatient follow-up with Dr. Ervin upon discharge -Nephrostomy tubes patent draining clear yellow urine. Acute renal failure superimposed on chronic kidney disease -Renal functions appear to be stable at this time, likely chronic kidney disease stage III -Continue to monitor Atrial fibrillation -Patient continued on Coreg for rate control -Eliquis 2.5mg BID, renally dosed. Physical deconditioning - Need SNF placement. CM working on placement. Looking at [facility]. DVT prevention -Eliquis Discharge Planning: Possible discharge tomorrow to [facility] if can be arranged..
[2018-03-20 01:09] VITALS: O2SAT 98
--- NOTE | 2018-03-20 10:54 | P.DS ---
Date of admission: 02/28/18 16:28 Primary care physician: UNKNOWN Brief History from admission: HPI from the admitting physician: 78 y.o white male being admitted for sepsis secondary to obstructive uropathy . Patient was in his usual state of health until about a few days ago began experiencing bilateral suprapubic abdominal pain as well as having some diarrhea. He went to his urologist today and was found to be in acute renal failure as well as per urology notes "bilateral renal obstruction due to stones ". He was instructed to proceed to the emergency department where a CT abdomen was done which showed obstructive uropathy with the stone on the right side at the UPJ junction. Creatinine in the ER was 3.9. Patient was given NS bolus, Rocephin in emergency urology consultation and IR consultation were requested. White count was 13,000 and pulse is over 90. BP is in 80s systolic in ER. Update on the day of discharge 03/20/18: Patient reports he is feeling okay today. Eager to go to rehab. DS: Diagnosis - Discharge Diagnosis (1) Septic shock Status: Acute (2) Bacteremia Status: Acute (3) C. difficile colitis Status: Acute (4) Obstructive uropathy Status: Acute (5) Atrial fibrillation Status: Acute (6) Acute on chronic kidney failure Status: Acute DS: Medications - Discharge Medications Prescriptions: vancomycin 250 mg PO QID 40 Days #160 cap DS: Summary Hospital Course: Severe sepsis shock, resolved -Patient was found to have complicated urinary tract infections and C. difficile infection -Patient completed treatment with broad spectrum antibiotics. Bacteremia -Original culture with MRSA 09/01 -Patient was on vancomycin -Echocardiogram performed which did not indicate any vegetation -Infectious disease followed the patient -Completed treatment with Daptomycin C. difficile infection -Positive culture report on 03/03/18 -Infectious disease recommend continuation of oral vancomycin until 04/28/18 -Stools improving in consistency Obstructive uropathy with complicated urinary tract infection -Status post bilateral nephrostomy tubes placed 02/28/18 -Urine culture shows 50-100,000 colonies mixed -Urology evaluated the patient and recommended outpatient follow-up with Dr. Ervin upon discharge -Nephrostomy tubes patent draining clear yellow urine. Acute renal failure superimposed on chronic kidney disease -Renal functions appear to be stable at this time, likely chronic kidney disease stage III -Continue to monitor Atrial fibrillation -Patient continued on Coreg for rate control -Eliquis 2.5mg BID, renally dosed. Physical deconditioning - Need SNF placement. Patient is discharged to rehab. - Time Spent with Patient Total time spent providing and/or coordinating discharge services: - Quality: VTE Deep Vein Thrombosis/Pulmonary Embolism Present on Admission: No Exam Vital signs: Vital Signs 03/19/18 12:00 03/19/18 18:00 03/19/18 20:00 Temperature 97.9 F 97.9 F 97.9 F Pulse Rate 88 90 81 Respiratory Rate 16 17 18 Blood Pressure 102/61 105/69 104/71 Pulse Oximetry 99 98 96 03/20/18 00:00 Temperature 97.9 F Pulse Rate 89 Respiratory Rate 18 Blood Pressure 112/67 Pulse Oximetry 98 Intake & Output 03/19/18 03/20/18 03/20/18 18:59 06:59 18:59 Intake Total 240 / 240 Output Total 300 / 300 400 / 400 Balance -300 / -300 -160 / -160 Intake: Oral 240 / 240 Output: Urine Amount (Stoma) 300 / 300 400 / 400 Continent Urostomy 50 / 50 Right Nephrostomy Tube 50 / 50 left nephrostomy tube 250 / 250 350 / 350 Other: Date of Last Bowel Movement 03/19/18 03/19/18 Narrative: GENERAL: Cachectic, in no acute distress. alert and orientated CARDIAC: Regular rhythm, regular rate. No murmurs gallops or rubs. LUNGS: Clear to auscultation bilaterally. ABDOMEN: Soft, nontender. Nondistended. Nephrostomy tube draining clear urine. EXTREMITIES: No edema, pulses are equal bilaterally. No cyanosis or clubbing Results Procedures completed during hospitalization: Bilateral nephrostomy tube placement 02/28/18 - Impressions ITS Impressions Chest X-Ray 02/28/18 00:00 CONCLUSION: No acute disease. Nephrostomy 02/28/18 15:20 CONCLUSION: 1. Uncomplicated bilateral nephrostomy tube placement as above. Abdomen/Pelvis CT 03/01/18 10:07 CONCLUSION: 1. Bilateral percutaneous nephrostomy tubes. 2. No retroperitoneal hemorrhage. 3. Bilateral nonobstructing renal calculi. 4. Infrarenal abdominal aortic aneurysm measures 3.6 cm. 5. Cholelithiasis. 6. Small pleural effusions and bibasilar atelectasis. 7. Diverticulosis without diverticulitis. Abdomen/Bladder Ultrasound 03/03/18 00:00 CONCLUSION: 1. Bilateral nephrostomy tubes in place. No definite hydronephrosis. 2. Increased echogenicity of the renal parenchyma bilaterally consistent with chronic medical renal disease. 3. Bilateral renal cysts and bilateral stones. Discharge Plan - Discharge Disposition Patient Disposition: [facility] Inpatient - Discharge Condition Condition: Stable - Discharge Order Discharge Orders: Discharge Order (Routine); Ordered 03/20/18 Ordered By: Rudolph Saldaña - Physicians Team Primary Care Provider: UNKNOWN, Attending Provider: Rudolph Saldaña Other Providers: Joss Quinonez MD ; Saba Hunt MD
[2018-03-20 13:53] VITALS: TEMP 97.3
[2018-03-20 13:54] VITALS: BP 98/58; PULSE 92; RESP 18
== END 2018-03-20 17:07 ==
LOC: NEPC 09:12 → NEDA 16:28 → HIMC 19:25 → N07 03-03 20:30
PROVIDERS: ADMIT Family Medicine; ATTEND Family Medicine
DX: N28.1 Cyst of kidney, acquired; R13.10 Dysphagia, unspecified; Z93.6 Other artificial openings of urinary tract status; Z87.440 Personal history of urinary (tract) infections; R00.1 Bradycardia, unspecified; D62 Acute posthemorrhagic anemia; K80.20 Calculus of gallbladder without cholecystitis without obstruction; Z87.442 Personal history of urinary calculi; E87.8 Other disorders of electrolyte and fluid balance, not elsewhere classified; I48.91 Unspecified atrial fibrillation; J98.11 Atelectasis; N39.0 Urinary tract infection, site not specified; Z85.51 Personal history of malignant neoplasm of bladder; E87.0 Hyperosmolality and hypernatremia; E87.2 Acidosis; E16.2 Hypoglycemia, unspecified; B95.62 Methicillin resistant Staphylococcus aureus infection as the cause of diseases classified elsewhere; Z87.891 Personal history of nicotine dependence; R53.1 Weakness; J44.9 Chronic obstructive pulmonary disease, unspecified; G93.41 Metabolic encephalopathy; Z53.20 Procedure and treatment not carried out because of patient's decision for unspecified reasons; Z85.46 Personal history of malignant neoplasm of prostate; E87.6 Hypokalemia; A04.71 Enterocolitis due to Clostridium difficile, recurrent; Z90.6 Acquired absence of other parts of urinary tract; R64 Cachexia; E83.51 Hypocalcemia; K57.90 Diverticulosis of intestine, part unspecified, without perforation or abscess without bleeding; I71.4 Abdominal aortic aneurysm, without rupture; N20.2 Calculus of kidney with calculus of ureter; N13.8 Other obstructive and reflux uropathy; A41.02 Sepsis due to Methicillin resistant Staphylococcus aureus; R65.21 Severe sepsis with septic shock; N18.3 Chronic kidney disease, stage 3 (moderate); N17.9 Acute kidney failure, unspecified

== ENCOUNTER 2018-04-12 17:49 | Inpatient (IN) ==
[2018-04-12] MEDS ORDERED: Morphine Inj 4 MG/ML Vial IV.PUSH ONE (18:23)
--- NOTE | 2018-04-12 19:11 | ED ---
HPI General Chief complaint: Medical Clearance Stated complaint: back pain/evac Time Seen by Provider: 04/12/18 18:18 Source: patient, EMS, RN notes reviewed and old records reviewed Mode of arrival: EMS History of Present Illness HPI narrative: 78yM presenting with right flank pain. The patient has a history of prostate/ bladder cancer s/p bilateral urostomy tube placement; he says that he was working with physical therapy today when he began to have sudden-onset severe right flank pain which is "sharp/ aching", non-radiating, constant, not made better or worse by anything. Denies trauma, says the urostomy did not get caught or pulled by anything, reports that urine is still draining normally with no change in color or clarity. Related Data Home Medications Medication Instructions Recorded Confirmed Saccharomyces boulardii [Florastor] 250 mg PO DAILY 04/12/18 04/12/18 ascorbic acid (vitamin C) [Vitamin 500 mg PO BID 04/12/18 04/12/18 C] cyanocobalamin (vitamin B-12) 1,000 mcg PO DAILY 04/12/18 04/12/18 [Vitamin B-12] dronabinol [Marinol] 2.5 mg PO BID 04/12/18 04/12/18 multivitamin [Multiple Vitamins] 1 tab PO DAILY 04/12/18 04/12/18 vancomycin 5 mg/kg PO QID 04/12/18 04/12/18 Previous Rx's Medication Instructions Recorded apixaban [Eliquis] 2.5 mg PO BID tab 03/20/18 calcium carbonate 500 mg CHEW BID tab 03/20/18 midodrine 5 mg PO Q8H tab 03/20/18 Allergies Allergy/AdvReac Type Severity Reaction Status Date / Time crab Allergy Intermediate Rash Verified 04/12/18 18:03 Review of Systems ROS: all other systems reviewed are negative Constitutional Denies fever(s) Eyes Denies blurry vision ENT Denies nasal congestion Cardiovascular Denies chest pain Respiratory Denies cough Gastrointestinal Denies nausea Genitourinary Denies hematuria Musculoskeletal Reports back pain Neurologic Denies confusion Psychiatric Denies confusion PMFSH History History Provided By: Patient Medical History Medical History COPD (chronic obstructive pulmonary disease) (Acute) H/O reduction of nasal fracture (Acute) History of Clostridium difficile infection (Acute) Intertrochanteric fracture of left hip (Acute) Kidney stones (Acute) Nasal bones, closed fracture (Acute) Prostate cancer (Acute) Renal failure (Acute) Subdural hematoma (Acute) Trochanteric fracture of femur (Acute) Surgical History Surgical History History of urostomy (Acute) Nephrostomy status (Acute) Family History Family History Other Osteoarthritis Social History Social History Substance History: No History of Abuse Second Hand Smoke Exposure: No Smoking Status: Former smoker Tobacco Type: Cigarettes How Often Do You Have a Drink Containing Alcohol: Never Recent Travel in [facility] within the Last 8 Weeks: No Recent Out of Country Travel within the Last 8 Weeks: No Immunization History Tetanus Immunization: Unsure Hx Influenza Vaccine This Season: Yes Exam Const General: no acute distress and frail appearing HENMT Head: normocephalic and atraumatic Face and sinus: normal facial exam Eyes General: appearance normal, both eyes and all related structures Pupils: PERRL Chest Chest: normal inspection of the chest Resp Effort & Inspection: normal respiratory effort Auscultation: no rhonchi and no wheezes Cardio Rate: tachycardic Rhythm: abnormal rhythm GI Inspection: non-distended Palpation: soft and nontender Other: Bilateral urostomy tubes present, draining clear yellow urine Exquisitely tender to right flank where urostomy exits, no erythema, dried dark brown exudate on bandage Skin General: no rashes or lesions noted Neuro General: alert, awake, oriented x3 and no focal motor deficits Psych Affect: normal affect Course Reevaluation(s) Reevaluation #1: Patient reported patient's repeat blood pressure is 100 systolic. Appears dehydrated on lab work. Fluids given. Hemoglobin of 8.6 was noted. Guaiac negative. Patient was typed and screened. Alert and oriented in no distress. States he feels better. Time: 20:28 Reevaluation #2: Patient feels much better at this time. UA suggestive of urinary tract infection in his case with bilateral nephrostomy tubes will start on Rocephin obtain urine and blood cultures and admit for further evaluation. Not appearing septic afebrile no leukocytosis. Time: 21:21 Initial Documented Vital Signs Temperature 97.7 F 04/12/18 17:57 Pulse Rate 102 H 04/12/18 17:57 Respiratory Rate 18 04/12/18 17:57 Blood Pressure 91/59 L 04/12/18 17:57 Pulse Oximetry 100 04/12/18 17:57 Last Documented Vital Signs Temperature 97.5 F L 04/13/18 12:00 Pulse Rate 109 H 04/13/18 12:00 Respiratory Rate 16 04/13/18 12:00 Blood Pressure 97/67 L 04/13/18 12:00 Pulse Oximetry 97 04/13/18 12:00 Sign Out Sign Out Data: Patient Sign Out occurred on 04/12/18 at 19:33. Patient's care was discussed, and care was transferred from Courtney Barrera DO to Dewayne Medina DO. Sign Out Comment: 78yM with bilateral urostomy tubes, now with sudden onset right flank pain, pending labs/ UA/ CT scan Last updated by Courtney Barrera DO at 04/12/18 19:25 Medical Decision Making MDM Narrative Medical decision making narrative: Assessment: 78yM presenting with right flank pain Plan: Pain control Labs UA from right nephrostomy CT abd/ pelvis UA suggestive urinary tract infection. Hypotension improved. No leukocytosis. Blood and urine cultures obtained he was started on Rocephin. We also consulted pharmacy for vancomycin dosing. Patient with recent obstructive uropathy and urosepsis resulting to bilateral nephrostomy tubes. Hemodynamically stable. Medical Screen Exam Complete: Yes Emergency Medical Condition: Yes Differential Diagnosis Differential Diagnosis: Differential diagnosis includes, but is not limited to: dislodged/ occluded urostomy tube, pyelonephritis, retroperitoneal hematoma, SANDI Lab Data Result diagrams: 04/13/18 06:20 04/13/18 06:20 Lab Results 04/12/18 04/12/18 04/12/18 Range/Units 19:00 19:10 19:35 WBC 8.2 (4.0-11.0) th/mm3 RBC 2.93 L (4.50-5.90) mil/mm3 Hgb 8.6 L (13.0-17.0) gm/dL Hct 26.4 L (39.0-51.0) % MCV 90.2 (80.0-100.0) fL MCH 29.5 (27.0-34.0) pg MCHC 32.7 (32.0-36.0) % RDW 17.5 H (11.6-17.2) % Plt Count 321 D (150-450) th/mm3 MPV 8.1 (7.0-11.0) fL Neut % (Auto) 65.5 (16.0-70.0) % Lymph % (Auto) 17.6 (9.0-44.0) % Ware % (Auto) 10.2 H (0.0-8.0) % Eos % (Auto) 5.9 H (0.0-4.0) % Baso % (Auto) 0.8 (0.0-2.0) % Neut # (Auto) 5.4 (1.8-7.7) th/mm3 Lymph # (Auto) 1.4 (1.0-4.8) th/mm3 Ware # (Auto) 0.8 (0.0-0.9) th/mm3 Eos # (Auto) 0.5 H (0.0-0.4) th/mm3 Baso # (Auto) 0.1 (0.0-0.2) th/mm3 WBC Differential . Differential Comment Auto diff final Sodium 138 (136-145) meq/L Potassium 5.1 (3.5-5.1) meq/L Chloride 105 (98-107) meq/L Carbon Dioxide 24.4 (21.0-32.0) meq/L Anion Gap 9 (5-15) meq/L BUN 70 H (7-18) mg/dL Creatinine 3.16 H (0.60-1.30) mg/dL Estimated GFR 19 L (>89) mL/min Random Glucose 101 (74-106) mg/dL Calcium 8.9 (8.5-10.1) mg/dL Total Bilirubin 0.3 (0.2-1.0) mg/dL AST 25 (15-37) U/L ALT 33 (12-78) U/L Alkaline Phosphatase 100 (45-117) U/L Total Protein 7.1 (6.4-8.2) g/dL Albumin 2.6 L (3.4-5.0) g/dL Urine Color Yellow (Yellw/Straw) Urine Clarity Cloudy H (Clear) Urine pH 9.0 H (5.0-8.5) Ur Specific [place] 1.010 (1.002-1.035) Urine Protein 100 H (Neg-Trace) mg/dL Urine Glucose (UA) Negative (Negative) mg/dL Urine Ketones Negative (Negative) mg/dL Urine Occult Blood Small H (Negative) Urine Nitrate Negative (Negative) Urine Bilirubin Negative (Negative) Urine Urobilinogen Less than 2 (Less than 2) mg/dL Ur Leukocyte Esterase Large H (Negative) Urine RBC 16 H (0-3) /hpf Urine WBC 17 H (0-5) /hpf Ur Squamous Epith Cells 1 (0-5) /hpf Urine Bacteria Many H (None) /hpf Urine Mucus Few H (Occasional) /lpf Urine Yeast Few H (None) /hpf Micro UA Comment Culture indicated Urine Culture Comments Culture indicated Blood Type Blood Type Recheck Antibody Screen 04/12/18 04/13/18 04/13/18 Range/Units 21:05 06:20 06:20 WBC 6.7 (4.0-11.0) th/mm3 RBC 3.07 L (4.50-5.90) mil/mm3 Hgb 9.1 L (13.0-17.0) gm/dL Hct 27.3 L (39.0-51.0) % MCV 89.2 (80.0-100.0) fL MCH 29.7 (27.0-34.0) pg MCHC 33.3 (32.0-36.0) % RDW 17.7 H (11.6-17.2) % Plt Count 294 (150-450) th/mm3 MPV 8.3 (7.0-11.0) fL Neut % (Auto) 61.1 (16.0-70.0) % Lymph % (Auto) 20.9 (9.0-44.0) % Ware % (Auto) 10.0 H (0.0-8.0) % Eos % (Auto) 7.2 H (0.0-4.0) % Baso % (Auto) 0.8 (0.0-2.0) % Neut # (Auto) 4.1 (1.8-7.7) th/mm3 Lymph # (Auto) 1.4 (1.0-4.8) th/mm3 Ware # (Auto) 0.7 (0.0-0.9) th/mm3 Eos # (Auto) 0.5 H (0.0-0.4) th/mm3 Baso # (Auto) 0.1 (0.0-0.2) th/mm3 WBC Differential . Differential Comment Auto diff final Sodium 141 (136-145) meq/L Potassium 4.7 (3.5-5.1) meq/L Chloride 110 H (98-107) meq/L Carbon Dioxide 22.8 (21.0-32.0) meq/L Anion Gap 8 (5-15) meq/L BUN 62 H (7-18) mg/dL Creatinine 2.85 H (0.60-1.30) mg/dL Estimated GFR 22 L (>89) mL/min Random Glucose 82 (74-106) mg/dL Calcium 8.8 (8.5-10.1) mg/dL Total Bilirubin (0.2-1.0) mg/dL AST (15-37) U/L ALT (12-78) U/L Alkaline Phosphatase (45-117) U/L Total Protein (6.4-8.2) g/dL Albumin (3.4-5.0) g/dL Urine Color (Yellw/Straw) Urine Clarity (Clear) Urine pH (5.0-8.5) Ur Specific [place] (1.002-1.035) Urine Protein (Neg-Trace) mg/dL Urine Glucose (UA) (Negative) mg/dL Urine Ketones (Negative) mg/dL Urine Occult Blood (Negative) Urine Nitrate (Negative) Urine Bilirubin (Negative) Urine Urobilinogen (Less than 2) mg/dL Ur Leukocyte Esterase (Negative) Urine RBC (0-3) /hpf Urine WBC (0-5) /hpf Ur Squamous Epith Cells (0-5) /hpf Urine Bacteria (None) /hpf Urine Mucus (Occasional) /lpf Urine Yeast (None) /hpf Micro UA Comment Urine Culture Comments Blood Type A Positive Blood Type Recheck Not needed Antibody Screen Negative Imaging Data Radiologist's impression: Abdomen/Pelvis CT 04/12/18 18:23 CONCLUSION: 1. Bilateral nephrostomies without intraperitoneal hematoma 2. Large gallstones in a benign-appearing gallbladder 3. Infrarenal abdominal aortic aneurysm appears stable in size. Discharge Plan Discharge Disposition Patient Disposition: 30 Still Patient Discharge Condition Condition: Stable Discharge Details Diagnosis: Acute pyelonephritis, SANDI (acute kidney injury), Anemia Physicians Team ED Provider: Dewayne Medina Primary Care Provider: UNKNOWN, Attending Provider: David Narvaez Other Providers: Lisandro Hernández ; Hansa Ac,Agency Status ED Status: Left Department Discharge Information Discharge Date/Time: 04/13/18 00:23
--- NOTE | 2018-04-12 19:23 | CT ---
EXAM DATE: 04/12/2018 6:58 PM EDT AGE/SEX: 78 years / Male INDICATIONS: Bilateral nephrostomies severe right flank pain CLINICAL DATA: This is the patient's initial encounter. Patient reports that signs and symptoms have been present for 1 day and indicates a pain score of 8/10. MEDICAL/SURGICAL HISTORY: Chronic obstructive pulmonary disease. Renal calculi. Carcinoma, pr ostatic. . nephrostomy RADIATION DOSE: 6.64 CTDI (mGy) [place] [facility] [place] 03/01/2018. . TECHNIQUE: Multiple contiguous axial images were obtained through the abdomen. Images were obtained using multiple row detector helical technique. Using automated exposure control and adjustment of the mA and/or kV according to patient size, radiation dose was kept as low as reasonably achievable to o btain optimal diagnostic quality images. DICOM format image data is available electronically for rev iew and comparison. FINDINGS: The lower lungs are clear. The liver is small and somewhat shrunken. Large calcified gallstones. Spleen and pancreas unremarkable Right kidney: Right nephrostomy tube evident and appears to be cord around the stone. Left kidney: Left nephrostomy tube evident with large stones and renal pelvis without obstruction. Bi lateral renal cyst described previously stable interval. Large obstructing stone the proximal left ur eter. Ostomy in the mid abdomen. . Extensive calcific atherosclerotic vascular disease with minimal dilatation of the ascending aorta me asuring 3.3 cm stable in the interval. There is no retroperitoneal hematoma. Pelvic contents are otherwise unremarkable. There is no free air. There is no abscess. Other than the aneurysm I don't see etiology for severe abdominal pain. CONCLUSION: 1. Bilateral nephrostomies without intraperitoneal hematoma 2. Large gallstones in a benign-appearing gallbladder 3. Infrarenal abdominal aortic aneurysm appears stable in size. Electronically signed by: David Fofaan MD 04/12/2018 7:21 PM EDT
[2018-04-12] MEDS ORDERED: PROTHROMBIN COMPLEX IV.SIG ONE (19:33)
[2018-04-12 19:37] LABS: Baso # (Auto) 0.1 th/mm3 (0.0-0.2); Baso % (Auto) 0.8 % (0.0-2.0); Eos # (Auto) 0.5 th/mm3 (0.0-0.4); Eos % (Auto) 5.9 % (0.0-4.0); Hematocrit 26.4 % (39.0-51.0); Hemoglobin 8.6 gm/dL (13.0-17.0); Lymph # (Auto) 1.4 th/mm3 (1.0-4.8); Lymph % (Auto) 17.6 % (9.0-44.0); Mean Corpuscular HGB Conc 32.7 % (32.0-36.0); Mean Corpuscular Hemoglobin 29.5 pg (27.0-34.0); Mean Corpuscular Volume 90.2 fL (80.0-100.0); Mean Platelet Volume 8.1 fL (7.0-11.0); Mono # (Auto) 0.8 th/mm3 (0.0-0.9); Mono % (Auto) 10.2 % (0.0-8.0); Neut # (Auto) 5.4 th/mm3 (1.8-7.7); Neut % (Auto) 65.5 % (16.0-70.0); Platelet Count 321 th/mm3 (150-450); Red Blood Count 2.93 mil/mm3 (4.50-5.90); Red Cell Distribution Width 17.5 % (11.6-17.2); White Blood Count 8.2 th/mm3 (4.0-11.0)
[2018-04-12] MEDS ORDERED: Sod Chloride 0.9% Inj 1,000 ML IV.SIG ONE ×2 (19:38→20:11)
[2018-04-12 19:43] LABS: Albumin 2.6 g/dL (3.4-5.0); Anion Gap 9 meq/L (5-15); Aspartate Aminotransferase 25 U/L (15-37); Blood Urea Nitrogen 70 mg/dL (7-18); Calcium 8.9 mg/dL (8.5-10.1); Carbon Dioxide 24.4 meq/L (21.0-32.0); Chloride 105 meq/L (98-107); Glomerular Filtration Rate 19 mL/min (>89); Glucose,Random 101 mg/dL (74-106); Potassium 5.1 meq/L (3.5-5.1); Sodium 138 meq/L (136-145)
[2018-04-12 19:44] LABS: Alanine Aminotransferase 33 U/L (12-78)
[2018-04-12 19:46] LABS: Alkaline Phosphatase 100 U/L (45-117); Total Protein 7.1 g/dL (6.4-8.2)
[2018-04-12 20:27] LABS: Bacteria,Urine Many /hpf; Bilirubin,Urine Negative (Negative); Clarity,Urine Cloudy (Clear); Color,Urine Yellow (Yellw/Straw); Glucose,Urine (UA) Negative (Negative); Leukocyte Esterase,Urine Large (Negative); Mucus,Urine Few /lpf (Occasional); Nitrite,Urine Negative (Negative); Squamous Epithelial Cell,Urine 1 /hpf (0-5)
[2018-04-12] MEDS ORDERED: Vancomycin Consult Pharmacy 1 EACH OTHER SCH (22:00)
--- NOTE | 2018-04-12 23:18 | P.HPIM ---
History of Present Illness Primary Care Physician: UNKNOWN History of Present Illness: 78-year-old male with a history of prostate cancer, bladder cancer, kidney stones, status post bilateral urostomy tube placement on 02/28 presented to the ED with complaints of right and left flank pain. Patient says the pain is a sharp, aching, constant, 8/10, worse with movement, better with rest and pain medicine, with no radiation to the site of his nephrostomy tubes with associated decreased appetite Patient states the pain has been going on ever since he had the nephrostomy tubes placed. Nephrostomy tubes are draining clear yellow urine, patient is unsure if the amount has decreased. Denies any fevers or chills. Inpatient Certification: I certify that the inpatient services were ordered in accordance with Medicare regulations governing the order. This includes certification that hospital inpatient services are reasonable and necessary and in the case of services not specified as inpatient-only under 42 CFR 419.22(n), that they are appropriately provided as inpatient services in accordance to with the 2-midnight benchmark under 43 CFR 412.3(e) Estimated Total Length of Stay (Days): 2 Plans for Post Hospital Care: SNF 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 - Medical History Medical History: Medical History (Last Reviewed 04/12/18 @ 19:08 by Courtney Barrera DO) COPD (chronic obstructive pulmonary disease) H/O reduction of nasal fracture History of Clostridium difficile infection Intertrochanteric fracture of left hip Kidney stones Nasal bones, closed fracture Prostate cancer Renal failure Subdural hematoma Trochanteric fracture of femur - Surgical History Surgical History: Surgical History (Last Reviewed 04/12/18 @ 19:08 by Courtney Barrera DO) History of urostomy Nephrostomy status - Family History Family History: Family History (Last Updated 04/13/18 @ 03:04 by EVANGELINA Gilmore) Other Osteoarthritis - Tobacco History Second Hand Smoke Exposure: No Smoking Status: Former smoker Tobacco Type: Cigarettes - Alcohol History How Often Do You Have a Drink Containing Alcohol: Never - Substance Use History Substance History: No History of Abuse - Travel History Recent Travel in the [place] Within the Last 8 Weeks: No Recent Travel Out of the Country Within the Last 8 Weeks: No - Immunization History Tetanus Immunization: Unsure Hx Influenza Vaccine This Season: Yes Medications and Allergies Active Medications: Active Medications Acetaminophen (Tylenol) 650 mg PO Q4H PRN PRN Reason: Temp > 100.4 Pharmacy Profile Note (Vancomycin Consult Pharmacy) 0 mls @ 0 mls/hr OTHER UNSCH TRAVIS Sodium Chloride (Ns Inj) 1,000 mls @ 100 mls/hr IV.CONT .Q10H TRAVIS Ceftriaxone Sodium 1,000 mg/ (Sodium Chloride) 100 mls @ 200 mls/hr IV.SIG Q24H TRAVIS Vancomycin HCl 1,000 mg/ (Sodium Chloride) 250 mls @ 250 mls/hr IV.SIG UNSCH X1 TRAVIS Stop: 04/13/18 00:29 Ondansetron HCl (Zofran Inj) 4 mg IV.PUSH Q6H PRN PRN Reason: NAUSEA OR VOMITING Allergies Allergy/AdvReac Type Severity Reaction Status Date / Time crab Allergy Intermediate Rash Verified 04/12/18 18:03 Home Medications Medication Instructions Recorded Confirmed Type Saccharomyces boulardii [Florastor] 250 mg PO DAILY 04/12/18 04/12/18 History ascorbic acid (vitamin C) [Vitamin 500 mg PO BID 04/12/18 04/12/18 History C] cyanocobalamin (vitamin B-12) 1,000 mcg PO DAILY 04/12/18 04/12/18 History [Vitamin B-12] dronabinol [Marinol] 2.5 mg PO BID 04/12/18 04/12/18 History multivitamin [Multiple Vitamins] 1 tab PO DAILY 04/12/18 04/12/18 History vancomycin 5 mg/kg PO QID 04/12/18 04/12/18 History Exam Vital signs: Vital Signs 04/12/18 17:57 04/12/18 19:39 Temperature 97.7 F Pulse Rate 102 H 112 H Respiratory Rate 18 16 Blood Pressure 91/59 L 88/54 L Pulse Oximetry 100 98 Intake & Output 04/12/18 04/12/18 04/13/18 06:59 18:59 06:59 Weight 61.689 kg Narrative: GENERAL: This is a well-nourished, well-developed patient, who appears in a mild amount of pain SKIN: Warm, dry, intact, no ecchymosis or open lesions EYES: Pupils equal round and reactive, no scleral edema or drainage CARDIOVASCULAR: Regular rate and rhythm without murmurs, gallops, or rubs. RESPIRATORY: Clear to auscultation. Breath sounds equal bilaterally. No wheezes , rales, or rhonchi. GASTROINTESTINAL: Abdomen soft, non-tender, nondistended. Normal active bowel sounds Genitourinary: Bilateral nephrostomy tubes patent draining clear yellow urine, tenderness to palpation MUSCULOSKELETAL: Extremities without clubbing, cyanosis, or edema. NEURO: Alert & Oriented x4 to person, place, time, situation. Moves all ext x4 Results - Labs CBC & Chem 7: 04/12/18 19:10 04/12/18 19:00 Labs: Short CBC 04/12/18 Range/Units 19:10 WBC 8.2 (4.0-11.0) th/mm3 Hgb 8.6 L (13.0-17.0) gm/dL Hct 26.4 L (39.0-51.0) % Plt Count 321 D (150-450) th/mm3 BMP 04/12/18 19:00 Sodium 138 Potassium 5.1 Chloride 105 Carbon Dioxide 24.4 BUN 70 H Creatinine 3.16 H Calcium 8.9 Liver Function 04/12/18 Range/Units 19:00 Total Bilirubin 0.3 (0.2-1.0) mg/dL AST 25 (15-37) U/L ALT 33 (12-78) U/L Alkaline Phosphatase 100 (45-117) U/L Albumin 2.6 L (3.4-5.0) g/dL Urine 04/12/18 Range/Units 19:35 Urine Color Yellow (Yellw/Straw) Urine Clarity Cloudy H (Clear) Urine pH 9.0 H (5.0-8.5) Ur Specific [place] 1.010 (1.002-1.035) Urine Protein 100 H (Neg-Trace) mg/dL Urine Glucose (UA) Negative (Negative) mg/dL - Imaging Impressions Abdomen/Pelvis CT 04/12/18 18:23 CONCLUSION: 1. Bilateral nephrostomies without intraperitoneal hematoma 2. Large gallstones in a benign-appearing gallbladder 3. Infrarenal abdominal aortic aneurysm appears stable in size. Caprini VTE Risk Assessment Caprini VTE Risk Assessment: Moderate/High Risk (score >= 2) Caprini Risk Assessment Model: Point Value = 1 Point Value = 2 Point Value = 3 Point Value = 5 Age 41-60 Minor surgery BMI > 25 kg/m2 Swollen legs Varicose veins or History of unexplained or recurrent spontaneous Oral contraceptives or hormone replacement Sepsis (< 1 month) Serious lung disease, including pneumonia (< 1 month) Abnormal pulmonary function Acute myocardial infarction Congestive heart failure (< 1 month) History of inflammatory bowel disease Medical patient at bed rest Age 61-74 Arthroscopic surgery Major open surgery (> 45 min) Laparoscopic surgery (> 45 min) Malignancy Confined to bed (> 72 hours) Immobilizing plaster cast Central venous access Age >= 75 History of VTE Family history of VTE Factor V Leiden Prothrombin [id number] Lupus anticoagulant Anticardiolipin antibodies Elevated serum homocysteine Heparin-induced thrombocytopenia Other congenital or acquired thrombophilia Stroke (< 1 month) Elective arthroplasty Hip, pelvis, or leg fracture Acute spinal cord injury (< 1 month) Prophylaxis Regimen: Total Risk Factor Score Risk Level Prophylaxis Regimen 0-1 Low Early ambulation 2 Moderate Order ONE of the following: *Sequential Compression Device (SCD) *Heparin 5000 units SQ BID 3-4 Higher Order ONE of the following medications: *Heparin 5000 units SQ TID *Enoxaparin/Lovenox 40 mg SQ daily (WT < 150 kg, CrCl > 30 mL/min) *Enoxaparin/Lovenox 30 mg SQ daily (WT < 150 kg, CrCl > 10-29 mL/min) *Enoxaparin/Lovenox 30 mg SQ BID (WT < 150 kg, CrCl > 30 mL/min) AND/OR *Sequential Compression Device (SCD) 5 or more Highest Order ONE of the following medications: *Heparin 5000 units SQ TID (Preferred with Epidurals) *Enoxaparin/Lovenox 40 mg SQ daily (WT < 150 kg, CrCl > 30 mL/min) *Enoxaparin/Lovenox 30 mg SQ daily (WT < 150 kg, CrCl > 10-29 mL/min) *Enoxaparin/Lovenox 30 mg SQ BID (WT < 150 kg, CrCl > 30 mL/min) AND *Sequential Compression Device (SCD) Assessment and Plan - Plan Pyelonephritis, with nephrostomy tubes Abnormal UA shows large leukocyte esterase, occult blood Abdominal CT reviewed and shows no obstruction or hematomas -IV antibiotics Rocephin and vancomycin -Urine culture pending -Blood cultures pending, patient with a history of bacteremia -Consult urology evaluation -Pain management with IV morphine C. difficile, actively being treated -Continue p.o. vancomycin until 04/28 Acute on chronic kidney injury, likely due to dehydration Creatinine 3.1, baseline 2.1 -IVF for hydration -Trend creatinine -Avoid nephrotoxins DVT prophylaxis: Marla Discussed Condition With: Patient, RN and ED physician
[2018-04-12] MEDS: Sod Chloride 0.9% Inj 1,000 ML IV.CONT SCH (23:29)
[2018-04-12] MEDS ORDERED: Vancomycin Inj 1,000 MG in Sodium Chlor 0.9% Inj 250 ML IV.SIG SCH (23:30)
[2018-04-13] MEDS: Sod Chloride 0.9% Inj 1,000 ML IV.CONT SCH ×3 (00:19→22:16)
[2018-04-13 07:31] LABS: Baso # (Auto) 0.1 th/mm3 (0.0-0.2); Baso % (Auto) 0.8 % (0.0-2.0); Eos # (Auto) 0.5 th/mm3 (0.0-0.4); Eos % (Auto) 7.2 % (0.0-4.0); Hematocrit 27.3 % (39.0-51.0); Hemoglobin 9.1 gm/dL (13.0-17.0); Lymph # (Auto) 1.4 th/mm3 (1.0-4.8); Lymph % (Auto) 20.9 % (9.0-44.0); Mean Corpuscular HGB Conc 33.3 % (32.0-36.0); Mean Corpuscular Hemoglobin 29.7 pg (27.0-34.0); Mean Corpuscular Volume 89.2 fL (80.0-100.0); Mean Platelet Volume 8.3 fL (7.0-11.0); Mono # (Auto) 0.7 th/mm3 (0.0-0.9); Neut # (Auto) 4.1 th/mm3 (1.8-7.7); Neut % (Auto) 61.1 % (16.0-70.0); Platelet Count 294 th/mm3 (150-450); Red Blood Count 3.07 mil/mm3 (4.50-5.90); Red Cell Distribution Width 17.7 % (11.6-17.2); White Blood Count 6.7 th/mm3 (4.0-11.0)
[2018-04-13 08:02] LABS: Calcium 8.8 mg/dL (8.5-10.1); Carbon Dioxide 22.8 meq/L (21.0-32.0); Potassium 4.7 meq/L (3.5-5.1)
[2018-04-13] MEDS: Ascorbic Acid 500 MG Tablet PO SCH ×2 (08:30→22:15)
[2018-04-13] MEDS: Morphine Inj 4 MG/ML Vial IV.PUSH PRN ×2 (08:31→15:15)
[2018-04-13] MEDS: DRONABINOL 2.5 MG CAPSULE PO SCH ×2 (10:26→22:15)
[2018-04-13] MEDS: Acetaminophen 325 MG Tablet PO PRN (10:27)
--- NOTE | 2018-04-13 12:03 | P.CONURO ---
History of Present Illness Service: Consult date: 04/13/18 Requesting Physician: Mimi Kay Reason for Consult: Management of bilateral nephrostomy tubes Primary Care Provider: UNKNOWN History of Present Illness: 78-year-old gentleman with history bladder cancer who is status post a radical cystectomy with ileal conduit urinary diversion and recently had bilateral nephrostomy tubes placed for bilateral renal calculi with an obstructing stone in the proximal left ureter as well. Patient reports that he developed worsening bilateral flank pain yesterday right side more intense than the left and presented to the emergency room for evaluation. Patient has an established urologist who had advised patient to be evaluated in the emergency room. Patient reports that the nephrostomy tubes have been draining clear yellow urine. Preliminary workup included a CT scan of the abdomen and pelvis that once again demonstrated bilateral renal and a proximal left ureteral calculus. The nephrostomy tubes appear to be in good position. Review of Systems Cardiovascular: Denies chest pain Respiratory: Denies shortness of breath Gastrointestinal: Denies abdominal pain Genitourinary: Denies blood in urine Musculoskeletal: Reports back pain (Bilateral flank) PMFSH - History History Provided By: Patient - Medical History Medical History: Medical History (Last Reviewed 04/13/18 @ 07:49 by Jaret Farmer) COPD (chronic obstructive pulmonary disease) H/O reduction of nasal fracture History of Clostridium difficile infection Intertrochanteric fracture of left hip Kidney stones Nasal bones, closed fracture Prostate cancer Renal failure Subdural hematoma Trochanteric fracture of femur - Surgical History Surgical History: Surgical History (Last Reviewed 04/13/18 @ 07:49 by Jaret Farmer) History of urostomy Nephrostomy status - Family History Family History: Family History (Last Updated 04/13/18 @ 03:04 by Mimi Kay [facility]) Other Osteoarthritis - Tobacco History Second Hand Smoke Exposure: No Smoking Status: Former smoker Tobacco Type: Cigarettes - Alcohol History How Often Do You Have a Drink Containing Alcohol: Never - Substance Use History Substance History: No History of Abuse - Travel History Recent Travel in the [place] Within the Last 8 Weeks: No Recent Travel Out of the Country Within the Last 8 Weeks: No - Immunization History Tetanus Immunization: Unsure Hx Influenza Vaccine This Season: Yes Medications and Allergies Active Medications: Active Medications Acetaminophen (Tylenol) 650 mg PO Q4H PRN PRN Reason: Temp > 100.4 Last Admin: 04/13/18 10:27 Dose: 650 mg Apixaban (Eliquis) 2.5 mg PO BID [facility] Last Admin: 04/13/18 08:30 Dose: 2.5 mg Ascorbic Acid (Vitamin C) 500 mg PO BID [facility] Last Admin: 04/13/18 08:30 Dose: 500 mg Cyanocobalamin (Vitamin B12) 1,000 mcg PO DAILY [facility] Last Admin: 04/13/18 10:27 Dose: 1,000 mcg Dronabinol (Marinol) 2.5 mg PO BID [facility] Last Admin: 04/13/18 10:26 Dose: 2.5 mg Pharmacy Profile Note (Vancomycin Consult Pharmacy) 0 mls @ 0 mls/hr OTHER UNSCH [facility] Sodium Chloride (Ns Inj) 1,000 mls @ 100 mls/hr IV.CONT .Q10H [facility] Last Admin: 04/13/18 00:19 Dose: 100 mls/hr Ceftriaxone Sodium 1,000 mg/ (Sodium Chloride) 100 mls @ 200 mls/hr IV.SIG Q24H [facility] Last Infusion: 04/13/18 09:50 Dose: 200 mls/hr Midodrine (Proamatine) 5 mg PO Q8H [facility] Last Admin: 04/13/18 10:26 Dose: 5 mg Morphine Sulfate (Morphine Inj) 2 mg IV.PUSH Q3H PRN PRN Reason: pain 1 to 10 Last Admin: 04/13/18 08:31 Dose: 2 mg Ondansetron HCl (Zofran Inj) 4 mg IV.PUSH Q6H PRN PRN Reason: NAUSEA OR VOMITING Pt Own Florastor 250 (Mg) 0 each PO DAILY [facility] Vancomycin HCl (Vancomycin Po) 250 mg PO QID [facility] Last Admin: 04/13/18 08:31 Dose: 250 mg Allergies Allergy/AdvReac Type Severity Reaction Status Date / Time crab Allergy Intermediate Rash Verified 04/12/18 18:03 Home Medications Medication Instructions Recorded Confirmed Type Saccharomyces boulardii [Florastor] 250 mg PO DAILY 04/12/18 04/12/18 History ascorbic acid (vitamin C) [Vitamin 500 mg PO BID 04/12/18 04/12/18 History C] cyanocobalamin (vitamin B-12) 1,000 mcg PO DAILY 04/12/18 04/12/18 History [Vitamin B-12] dronabinol [Marinol] 2.5 mg PO BID 04/12/18 04/12/18 History multivitamin [Multiple Vitamins] 1 tab PO DAILY 04/12/18 04/12/18 History vancomycin 5 mg/kg PO QID 04/12/18 04/12/18 History Physical Exam Vital Signs - 24 hr 04/12/18 17:57 04/12/18 19:39 04/12/18 22:00 Temperature 97.7 F Pulse Rate 102 H 112 H 100 H Respiratory Rate 18 16 16 Blood Pressure 91/59 L 88/54 L 104/62 Pulse Oximetry 100 98 100 04/12/18 22:59 04/13/18 00:16 04/13/18 01:10 Temperature 98.7 F Pulse Rate 94 H 93 H Respiratory Rate 16 18 Blood Pressure 115/78 112/72 Pulse Oximetry 100 99 04/13/18 06:04 04/13/18 08:00 04/13/18 09:32 Temperature 97.9 F 97.5 F L Pulse Rate 108 H 118 H Respiratory Rate 18 18 5 L Blood Pressure 93/63 L 111/69 Pulse Oximetry 97 98 04/13/18 11:32 Temperature Pulse Rate 106 H Respiratory Rate Blood Pressure Pulse Oximetry Physical Exam: GENERAL: This is a well-nourished, well-developed patient, in no apparent distress. SKIN: No rashes, ecchymoses or lesions. Cool and dry. HEAD: Atraumatic. Normocephalic. No temporal or scalp tenderness. EYES: Pupils equal round and reactive. Extraocular motions intact. No scleral icterus. No injection or drainage. ENT: Nose without bleeding, purulent drainage or septal hematoma. Throat without erythema, tonsillar hypertrophy or exudate. Uvula midline. Airway patent. NECK: Trachea midline. No JVD or lymphadenopathy. Supple, nontender, no meningeal signs. GASTROINTESTINAL: Abdomen soft, non-tender, nondistended. No hepato-splenomegaly , or palpable masses. No guarding. GENITOURINARY: Bilateral nephrostomy tubes draining clear yellow urine. Viable ileal conduit stoma. MUSCULOSKELETAL: Extremities without clubbing, cyanosis, or edema. No joint tenderness, effusion, or edema noted. No calf tenderness. Negative Homans sign bilaterally. NEUROLOGICAL: Awake and alert. Cranial nerves II through XII intact. Motor and sensory grossly within normal limits. Five out of 5 muscle strength in all muscle groups. Normal speech. Laboratory Results - last 24 hr 04/12/18 04/12/18 04/12/18 19:00 19:10 19:35 WBC 8.2 RBC 2.93 L Hgb 8.6 L Hct 26.4 L MCV 90.2 MCH 29.5 MCHC 32.7 RDW 17.5 H Plt Count 321 D MPV 8.1 Neut % (Auto) 65.5 Lymph % (Auto) 17.6 [place] % (Auto) 10.2 H Eos % (Auto) 5.9 H Baso % (Auto) 0.8 Neut # (Auto) 5.4 Lymph # (Auto) 1.4 [place] # (Auto) 0.8 Eos # (Auto) 0.5 H Baso # (Auto) 0.1 WBC Differential . Differential Comment Auto diff final Sodium 138 Potassium 5.1 Chloride 105 Carbon Dioxide 24.4 Anion Gap 9 BUN 70 H Creatinine 3.16 H Estimated GFR 19 L Random Glucose 101 Calcium 8.9 Total Bilirubin 0.3 AST 25 ALT 33 Alkaline Phosphatase 100 Total Protein 7.1 Albumin 2.6 L Urine Color Yellow Urine Clarity Cloudy H Urine pH 9.0 H Ur Specific [place] 1.010 Urine Protein 100 H Urine Glucose (UA) Negative Urine Ketones Negative Urine Occult Blood Small H Urine Nitrate Negative Urine Bilirubin Negative Urine Urobilinogen Less than 2 Ur Leukocyte Esterase Large H Urine RBC 16 H Urine WBC 17 H Ur Squamous Epith Cells 1 Urine Bacteria Many H Urine Mucus Few H Urine Yeast Few H Micro UA Comment Culture indicated Urine Culture Comments Culture indicated Blood Type Blood Type Recheck Antibody Screen 04/12/18 04/13/18 04/13/18 21:05 06:20 06:20 WBC 6.7 RBC 3.07 L Hgb 9.1 L Hct 27.3 L MCV 89.2 MCH 29.7 MCHC 33.3 RDW 17.7 H Plt Count 294 MPV 8.3 Neut % (Auto) 61.1 Lymph % (Auto) 20.9 [place] % (Auto) 10.0 H Eos % (Auto) 7.2 H Baso % (Auto) 0.8 Neut # (Auto) 4.1 Lymph # (Auto) 1.4 [place] # (Auto) 0.7 Eos # (Auto) 0.5 H Baso # (Auto) 0.1 WBC Differential . Differential Comment Auto diff final Sodium 141 Potassium 4.7 Chloride 110 H Carbon Dioxide 22.8 Anion Gap 8 BUN 62 H Creatinine 2.85 H Estimated GFR 22 L Random Glucose 82 Calcium 8.8 Total Bilirubin AST ALT Alkaline Phosphatase Total Protein Albumin Urine Color Urine Clarity Urine pH Ur Specific [place] Urine Protein Urine Glucose (UA) Urine Ketones Urine Occult Blood Urine Nitrate Urine Bilirubin Urine Urobilinogen Ur Leukocyte Esterase Urine RBC Urine WBC Ur Squamous Epith Cells Urine Bacteria Urine Mucus Urine Yeast Micro UA Comment Urine Culture Comments Blood Type A Positive Blood Type Recheck Not needed Antibody Screen Negative Microbiology 04/12/18 21:20 Aerobic Blood Culture - Preliminary Blood - Peripheral No growth in 1 day Anaerobic Blood Culture - Preliminary No growth in 1 day 04/12/18 21:30 Aerobic Blood Culture - Preliminary Blood - Peripheral No growth in 1 day Anaerobic Blood Culture - Preliminary No growth in 1 day Result Diagrams: 04/13/18 06:20 04/13/18 06:20 Imaging: ITS Impressions Abdomen/Pelvis CT 04/12/18 18:23 CONCLUSION: 1. Bilateral nephrostomies without intraperitoneal hematoma 2. Large gallstones in a benign-appearing gallbladder 3. Infrarenal abdominal aortic aneurysm appears stable in size. Assessment and Plan - Assessment (1) Renal calculus, bilateral Code(s): N20.0 - Calculus of kidney Status: Acute (2) History of bladder cancer Code(s): Z85.51 - Personal history of malignant neoplasm of bladder Status: Acute - Plan Urologic impression: 1. History bilateral obstructing renal calculi status post placement of bilateral nephrostomy tubes 2. Pyelonephritis related to the chronically indwelling nephrostomy tubes 3. History of bladder cancer status radical cystoprostatectomy with ileal conduit urinary diversion Recommendations: 1. Agree with present antibiotic therapy 2. We will place order to have interventional radiology replace both nephrostomy tubes. 3. May discharge home when clinically stable 4. Patient advised to keep his follow-up appointment with his established urologist
[2018-04-13] MEDS: FLORASTOR 250 MG PO SCH (12:24)
--- NOTE | 2018-04-13 14:15 | P.PNIM ---
Subjective Interval history: 78-year-old male with a history of prostate cancer, bladder cancer, kidney stones, status post bilateral urostomy tube placement on 02/28 presented to the ED with complaints of right and left flank pain. Patient says the pain is a sharp, aching, constant, 8/10, worse with movement, better with rest and pain medicine, with no radiation to the site of his nephrostomy tubes with associated decreased appetite Patient states the pain has been going on ever since he had the nephrostomy tubes placed. Nephrostomy tubes are draining clear yellow urine, patient is unsure if the amount has decreased. Denies any fevers or chills. 8-16 SEEN BY UROLOGY WHO HAS WRITTEN FOR INTERVENTIONAL RADIOLOGY TO CHANGE OUT BL NEPHROSTOMY TUBES CONTINUE CURRENT TREATMENT AND ANTIBIOTICS DW RN AND PT AND CM AM LABS PT AND OT TO EVAL AND TREAT Physical Exam Vital signs: Vital Signs 04/12/18 17:57 04/12/18 19:39 04/12/18 22:00 Temperature 97.7 F Pulse Rate 102 H 112 H 100 H Respiratory Rate 18 16 16 Blood Pressure 91/59 L 88/54 L 104/62 Pulse Oximetry 100 98 100 04/12/18 22:59 04/13/18 00:16 04/13/18 01:10 Temperature 98.7 F Pulse Rate 94 H 93 H Respiratory Rate 18 16 18 Blood Pressure 115/78 112/72 Pulse Oximetry 100 99 04/13/18 06:04 04/13/18 08:00 04/13/18 09:32 Temperature 97.9 F 97.5 F L Pulse Rate 108 H 118 H Respiratory Rate 18 18 5 L Blood Pressure 93/63 L 111/69 Pulse Oximetry 97 98 04/13/18 11:32 04/13/18 12:00 Temperature 97.5 F L Pulse Rate 106 H 109 H Respiratory Rate 16 Blood Pressure 97/67 L Pulse Oximetry 97 Intake & Output 04/12/18 04/13/18 04/13/18 18:59 06:59 18:59 Intake Total 2350 / 2350 1100 / 1100 Output Total 300 / 300 Balance 2049 1100 / 1100 Weight 61.689 kg 61.689 kg Intake: IV 2350 / 2350 1100 / 1100 NS Inj 1,000 ML @ 100 mls/hr IV 1000 / 1000 .CONT .Q10H [facility] Rx#:[id number] NS Inj 1,000 ML @ Wide Open IV. 1999 / 1999 [facility] Rx#:[id number] Vancomycin Inj 1,000 MG In NS 250 / 250 Inj 250 ML @ 250 mls/hr IV.SIG UNSCH X1 [facility] Rx#:[id number] Rocephin Inj 1,000 MG In NS Inj 100 / 100 100 / 100 100 ML @ 200 mls/hr IV.SIG Q24H [facility] Rx#:[id number] Output: Wound Drainage 300 / 300 # 1 Right Abdomen 300 / 300 Other: Date of Last Bowel Movement 04/12/18 Weight On Admission 61.689 kg Narrative: GENERAL: This is a well-nourished, well-developed patient, who appears in a mild amount of pain SKIN: Warm, dry, intact, no ecchymosis or open lesions EYES: Pupils equal round and reactive, no scleral edema or drainage CARDIOVASCULAR: Regular rate and rhythm without murmurs, gallops, or rubs. RESPIRATORY: Clear to auscultation. Breath sounds equal bilaterally. No wheezes , rales, or rhonchi. GASTROINTESTINAL: Abdomen soft, non-tender, nondistended. Normal active bowel sounds Genitourinary: Bilateral nephrostomy tubes patent draining clear yellow urine, tenderness to palpation- FLANK PAIN BL MUSCULOSKELETAL: Extremities without clubbing, cyanosis, or edema. NEURO: Alert & Oriented x4 to person, place, time, situation. Moves all ext x4 Results - Labs CBC & Chem 7: 04/13/18 06:20 04/13/18 06:20 Laboratory Results - last 24 hr 04/12/18 04/12/18 04/12/18 19:00 19:10 19:35 WBC 8.2 RBC 2.93 L Hgb 8.6 L Hct 26.4 L MCV 90.2 MCH 29.5 MCHC 32.7 RDW 17.5 H Plt Count 321 D MPV 8.1 Neut % (Auto) 65.5 Lymph % (Auto) 17.6 [place] % (Auto) 10.2 H Eos % (Auto) 5.9 H Baso % (Auto) 0.8 Neut # (Auto) 5.4 Lymph # (Auto) 1.4 [place] # (Auto) 0.8 Eos # (Auto) 0.5 H Baso # (Auto) 0.1 WBC Differential . Differential Comment Auto diff final Sodium 138 Potassium 5.1 Chloride 105 Carbon Dioxide 24.4 Anion Gap 9 BUN 70 H Creatinine 3.16 H Estimated GFR 19 L Random Glucose 101 Calcium 8.9 Total Bilirubin 0.3 AST 25 ALT 33 Alkaline Phosphatase 100 Total Protein 7.1 Albumin 2.6 L Urine Color Yellow Urine Clarity Cloudy H Urine pH 9.0 H Ur Specific [place] 1.010 Urine Protein 100 H Urine Glucose (UA) Negative Urine Ketones Negative Urine Occult Blood Small H Urine Nitrate Negative Urine Bilirubin Negative Urine Urobilinogen Less than 2 Ur Leukocyte Esterase Large H Urine RBC 16 H Urine WBC 17 H Ur Squamous Epith Cells 1 Urine Bacteria Many H Urine Mucus Few H Urine Yeast Few H Micro UA Comment Culture indicated Urine Culture Comments Culture indicated Blood Type Blood Type Recheck Antibody Screen 04/12/18 04/13/18 04/13/18 21:05 06:20 06:20 WBC 6.7 RBC 3.07 L Hgb 9.1 L Hct 27.3 L MCV 89.2 MCH 29.7 MCHC 33.3 RDW 17.7 H Plt Count 294 MPV 8.3 Neut % (Auto) 61.1 Lymph % (Auto) 20.9 [place] % (Auto) 10.0 H Eos % (Auto) 7.2 H Baso % (Auto) 0.8 Neut # (Auto) 4.1 Lymph # (Auto) 1.4 [place] # (Auto) 0.7 Eos # (Auto) 0.5 H Baso # (Auto) 0.1 WBC Differential . Differential Comment Auto diff final Sodium 141 Potassium 4.7 Chloride 110 H Carbon Dioxide 22.8 Anion Gap 8 BUN 62 H Creatinine 2.85 H Estimated GFR 22 L Random Glucose 82 Calcium 8.8 Total Bilirubin AST ALT Alkaline Phosphatase Total Protein Albumin Urine Color Urine Clarity Urine pH Ur Specific [place] Urine Protein Urine Glucose (UA) Urine Ketones Urine Occult Blood Urine Nitrate Urine Bilirubin Urine Urobilinogen Ur Leukocyte Esterase Urine RBC Urine WBC Ur Squamous Epith Cells Urine Bacteria Urine Mucus Urine Yeast Micro UA Comment Urine Culture Comments Blood Type A Positive Blood Type Recheck Not needed Antibody Screen Negative Microbiology 04/12/18 19:35 Catheterized Urine Urine Culture - Final 04/12/18 21:20 Blood - Peripheral Aerobic Blood Culture - Preliminary No growth in 1 day 04/12/18 21:20 Blood - Peripheral Anaerobic Blood Culture - Preliminary No growth in 1 day 04/12/18 21:30 Blood - Peripheral Aerobic Blood Culture - Preliminary No growth in 1 day 04/12/18 21:30 Blood - Peripheral Anaerobic Blood Culture - Preliminary No growth in 1 day - Imaging Impressions Abdomen/Pelvis CT 04/12/18 18:23 CONCLUSION: 1. Bilateral nephrostomies without intraperitoneal hematoma 2. Large gallstones in a benign-appearing gallbladder 3. Infrarenal abdominal aortic aneurysm appears stable in size. Assessment and Plan - Plan Pyelonephritis, with nephrostomy tubes Abnormal UA shows large leukocyte esterase, occult blood Abdominal CT reviewed and shows no obstruction or hematomas -IV antibiotics Rocephin and vancomycin -Urine culture pending -Blood cultures pending, patient with a history of bacteremia -Consult urology evaluation -Pain management with IV morphine C. difficile, actively being treated -Continue p.o. vancomycin until 04/28 Acute on chronic kidney injury, likely due to dehydration Creatinine 3.1, baseline 2.1 -IVF for hydration -Trend creatinine -Avoid nephrotoxins DVT prophylaxis: Eliquis Code Status: FULL CODE Discussed Condition With: RN AND PT AND CM Discharge Planning: AFTER NEPHROSTOMY TUBES CHANGED AND CAN SWITCH TO PO MEDS
[2018-04-13] MEDS ORDERED: Iohexol 350 MG/ML 50 ML Vial (for Rad Diag) IV.PUSH ONE (15:58)
[2018-04-13] MEDS: Lactobacillus Acidophilus/L. Spores Tablet PO SCH (17:37)
--- NOTE | 2018-04-13 17:54 | IR ---
EXAM DATE: 04/13/2018 3:57 PM EDT AGE/SEX: 78 years / Male INDICATIONS: Patient presents with bilateral nephrostomy tubes and pain coming from the sites. In n eed of nephrostomy tube exchanges. CLINICAL DATA: This is the patient's initial encounter. Patient reports that signs and symptoms have been present for 2 days and indicates a pain score of 7/10. MEDICAL/SURGICAL HISTORY: Chronic obstructive pulmonary disease. Carcinoma, prostatic. Renal failure, acute. C-Diff, kidney stones . Bilateral nephrostomy tubes. COMPARISON: [facility] [place], CT ABDOMEN & PELVIS W/O CONTRAST, 04/12/2018. . FLUORO TIME (min): 1.2 IMAGE SERIES: 4 SEDATION TIME (min): 15 CONTRAST (cc): 20cc Omnipaque (iohexol) 350 MEDICATION(S): 2mg Morphine IV 1mg lorazepam (Ativan) IV DEVICE(S): 8 Armenian nephrostomy catheter Expel 8 Armenian nephrostomy catheter Expel . . PROCEDURE: 1. Antegrade pyelogram. 2. Nephrostomy tube exchange. 3. Conscious sedation with continuous EKG and oximetry monitoring. The risks, benefits and alternatives to the procedure were explained and verbal and written consent w as obtained. The site was prepped in sterile fashion. Full sterile technique was used, including ca p, mask, sterile gloves and gown and a large sterile sheet. Hand hygiene and 2% chlorhexidine and/or betadine/alcohol prep was utilized per protocol for cutaneous antisepsis. The skin and subcutaneous tissues were infiltrated with local anesthetic solution. With fluoroscopic guidance antegrade pyelo gram was performed. Over a guidewire the prescribed nephrostomy tube was placed. Injection of positive contrast demonstra jeffrey good position of the catheter within the collecting system. Conscious sedation was performed with the prescribed dosages and duration as above in the presence of an independent trained radiology nurse to assist in the monitoring of the patient. EKG and oximetry remained stable throughout the procedure. The patient tolerated the procedure well and there were n o complications. The patient was sent to post anesthesia recovery in stable condition. CONCLUSION: 1. Uncomplicated nephrostomy tube exchange as above. Electronically signed by: Gerald Castrejon MD 04/13/2018 5:53 PM EDT
[2018-04-14] MEDS: Sod Chloride 0.9% Inj 1,000 ML IV.CONT SCH ×2 (07:36→17:35)
[2018-04-14 09:06] LABS: Baso # (Auto) 0.1 th/mm3 (0.0-0.2); Baso % (Auto) 0.7 % (0.0-2.0); Eos # (Auto) 0.4 th/mm3 (0.0-0.4); Eos % (Auto) 5.8 % (0.0-4.0); Hemoglobin 9.8 gm/dL (13.0-17.0); Lymph # (Auto) 1.1 th/mm3 (1.0-4.8); Lymph % (Auto) 14.9 % (9.0-44.0); Mean Corpuscular HGB Conc 32.8 % (32.0-36.0); Mean Corpuscular Hemoglobin 29.4 pg (27.0-34.0); Mean Corpuscular Volume 89.5 fL (80.0-100.0); Mean Platelet Volume 8.1 fL (7.0-11.0); Mono # (Auto) 0.5 th/mm3 (0.0-0.9); Mono % (Auto) 7.5 % (0.0-8.0); Neut # (Auto) 5.1 th/mm3 (1.8-7.7); Neut % (Auto) 71.1 % (16.0-70.0); Platelet Count 318 th/mm3 (150-450); Red Blood Count 3.35 mil/mm3 (4.50-5.90); Red Cell Distribution Width 17.7 % (11.6-17.2); White Blood Count 7.2 th/mm3 (4.0-11.0)
[2018-04-14] MEDS: Ascorbic Acid 500 MG Tablet PO SCH ×2 (09:12→21:21)
[2018-04-14] MEDS: Lactobacillus Acidophilus/L. Spores Tablet PO SCH ×3 (09:14→17:31)
[2018-04-14] MEDS: DRONABINOL 2.5 MG CAPSULE PO SCH ×2 (09:14→21:22)
[2018-04-14] MEDS: FLORASTOR 250 MG PO SCH (09:15)
[2018-04-14] MEDS: Acetaminophen 325 MG Tablet PO PRN (09:28)
[2018-04-14 09:36] LABS: Albumin 2.7 g/dL (3.4-5.0); Anion Gap 9 meq/L (5-15); Aspartate Aminotransferase 17 U/L (15-37); Blood Urea Nitrogen 57 mg/dL (7-18); Calcium 9.2 mg/dL (8.5-10.1); Carbon Dioxide 23.7 meq/L (21.0-32.0); Chloride 109 meq/L (98-107); Glomerular Filtration Rate 23 mL/min (>89); Glucose,Random 83 mg/dL (74-106); Magnesium 1.9 mg/dL (1.5-2.5); Potassium 4.7 meq/L (3.5-5.1); Sodium 142 meq/L (136-145)
[2018-04-14 09:48] LABS: Alanine Aminotransferase 25 U/L (12-78); Alkaline Phosphatase 104 U/L (45-117); Free T4 (Free Thyroxine) 0.84 ng/dL (0.76-1.46); Phosphorus 4.3 mg/dL (2.5-4.9); Total Protein 7.3 g/dL (6.4-8.2); Vancomycin,Random 11.8 Comment
[2018-04-14] MEDS ORDERED: Vancomycin Inj 1,250 MG in Sodium Chlor 0.9% Inj 250 ML IV.SIG ONE (11:00)
--- NOTE | 2018-04-14 11:40 | P.PNIM ---
Subjective Interval history: Patient remains tachycardic and tachypneic this morning. He is status post replacement of his nephrostomy tubes. Sepsis criteria still positive. However , the patient has started to feel better. His only complaint is pain. Physical Exam Vital signs: Vital Signs 04/13/18 12:00 04/13/18 16:00 04/13/18 20:00 Temperature 97.5 F L 97.0 F L Pulse Rate 109 H 115 H 110 H Respiratory Rate 16 16 22 Blood Pressure 97/67 L 99/72 L 117/83 Pulse Oximetry 97 97 100 04/13/18 20:25 04/14/18 00:00 04/14/18 04:00 Temperature Pulse Rate 105 H 131 H 120 H Respiratory Rate 22 19 Blood Pressure 101/68 118/76 Pulse Oximetry 97 100 04/14/18 08:00 04/14/18 08:35 Temperature 97.5 F L Pulse Rate 109 H 120 H Respiratory Rate 20 Blood Pressure 103/62 Pulse Oximetry 100 Intake & Output 04/13/18 04/14/18 04/14/18 18:59 06:59 18:59 Intake Total 1700 / 1700 Output Total 700 / 700 600 / 600 Balance 1000 / 1000 -600 / -600 Intake: IV 1100 / 1100 NS Inj 1,000 ML @ 100 mls/hr IV 1000 / 1000 .CONT .Q10H [facility] Rx#:[id number] Rocephin Inj 1,000 MG In NS Inj 100 / 100 100 ML @ 200 mls/hr IV.SIG Q24H [facility] Rx#:[id number] Oral 600 / 600 Output: Urine 700 / 700 600 / 600 Other: Date of Last Bowel Movement 04/12/18 Narrative: GENERAL: NAD, A&Ox3 HEAD: Normocephalic. NECK: Supple, trachea midline. No lymphadenopathy. EYES: No scleral icterus. No injection or drainage. CARDIOVASCULAR: Regular rate and rhythm without murmurs, gallops, or rubs. RESPIRATORY: Breath sounds equal bilaterally. No accessory muscle use. GASTROINTESTINAL: Abdomen soft, non-tender, nondistended. MUSCULOSKELETAL: No cyanosis, or edema. SKIN: Warm and dry. NEURO: No focal neurological deficits. Results - Labs CBC & Chem 7: 04/14/18 08:07 04/14/18 08:07 Laboratory Results - last 24 hr 04/14/18 04/14/18 08:07 08:07 WBC 7.2 RBC 3.35 L Hgb 9.8 L Hct 30.0 L MCV 89.5 MCH 29.4 MCHC 32.8 RDW 17.7 H Plt Count 318 MPV 8.1 Neut % (Auto) 71.1 H Lymph % (Auto) 14.9 [place] % (Auto) 7.5 Eos % (Auto) 5.8 H Baso % (Auto) 0.7 Neut # (Auto) 5.1 Lymph # (Auto) 1.1 [place] # (Auto) 0.5 Eos # (Auto) 0.4 Baso # (Auto) 0.1 WBC Differential . Differential Comment Auto diff final Sodium 142 Potassium 4.7 Chloride 109 H Carbon Dioxide 23.7 Anion Gap 9 BUN 57 H Creatinine 2.71 H Estimated GFR 23 L Random Glucose 83 Calcium 9.2 Phosphorus 4.3 Magnesium 1.9 Total Bilirubin 0.3 AST 17 ALT 25 Alkaline Phosphatase 104 Total Protein 7.3 Albumin 2.7 L TSH 1.820 Free T4 0.84 Random Vancomycin 11.8 Microbiology 04/12/18 21:20 Blood - Peripheral Aerobic Blood Culture - Preliminary No growth in 2 days 04/12/18 21:20 Blood - Peripheral Anaerobic Blood Culture - Preliminary No growth in 2 days 04/12/18 21:30 Blood - Peripheral Aerobic Blood Culture - Preliminary No growth in 2 days 04/12/18 21:30 Blood - Peripheral Anaerobic Blood Culture - Preliminary No growth in 2 days 04/12/18 19:35 Catheterized Urine Urine Culture - Final - Imaging Impressions Nephrostomy Tube Change 04/13/18 00:00 CONCLUSION: 1. Uncomplicated nephrostomy tube exchange as above. Assessment and Plan - Plan 78-year-old male admitted secondary to complicated UTI with pyelonephritis and nephrostomy tubes. Sepsis Tachycardia Tachypnea Continue IV hydration Continue monitoring on telemetry Continue treatment of infection Monitor for resolution of sepsis Complex UTI pyelonephritis Chronic nephrostomy tubes Continue Rocephin and vancomycin Follow urine culture Follow blood cultures Urology following Continue pain treatment Subacute C. difficile colitis Continue p.o. vancomycin until 04/28 Acute on chronic kidney injury dehydration Some improvement Continue IV hydration Continue monitoring renal function Avoid nephrotoxins DVT prophylaxis Eliquis
[2018-04-14 14:16] LABS: Hemoglobin A1c 5.4 % (4.3-6.0)
[2018-04-15] MEDS: Sod Chloride 0.9% Inj 1,000 ML IV.CONT SCH ×2 (01:44→11:14)
[2018-04-15 07:26] LABS: Baso # (Auto) 0.1 th/mm3 (0.0-0.2); Baso % (Auto) 0.7 % (0.0-2.0); Eos # (Auto) 0.7 th/mm3 (0.0-0.4); Eos % (Auto) 9.3 % (0.0-4.0); Hemoglobin 8.9 gm/dL (13.0-17.0); Lymph # (Auto) 1.1 th/mm3 (1.0-4.8); Lymph % (Auto) 14.3 % (9.0-44.0); Mean Corpuscular HGB Conc 32.9 % (32.0-36.0); Mean Corpuscular Hemoglobin 29.6 pg (27.0-34.0); Mean Corpuscular Volume 90.1 fL (80.0-100.0); Mean Platelet Volume 7.7 fL (7.0-11.0); Mono # (Auto) 0.8 th/mm3 (0.0-0.9); Mono % (Auto) 9.8 % (0.0-8.0); Neut # (Auto) 5.2 th/mm3 (1.8-7.7); Neut % (Auto) 65.9 % (16.0-70.0); Platelet Count 295 th/mm3 (150-450); Red Cell Distribution Width 17.5 % (11.6-17.2); White Blood Count 7.9 th/mm3 (4.0-11.0)
[2018-04-15 08:12] LABS: Alanine Aminotransferase 24 U/L (12-78); Albumin 2.4 g/dL (3.4-5.0); Alkaline Phosphatase 89 U/L (45-117); Anion Gap 7 meq/L (5-15); Aspartate Aminotransferase 17 U/L (15-37); Blood Urea Nitrogen 46 mg/dL (7-18); Calcium 8.4 mg/dL (8.5-10.1); Carbon Dioxide 22.7 meq/L (21.0-32.0); Chloride 113 meq/L (98-107); Glomerular Filtration Rate 23 mL/min (>89); Glucose,Random 81 mg/dL (74-106); Potassium 4.7 meq/L (3.5-5.1); Sodium 143 meq/L (136-145); Total Protein 6.4 g/dL (6.4-8.2)
[2018-04-15] MEDS: FLORASTOR 250 MG PO SCH (08:44)
[2018-04-15] MEDS: Lactobacillus Acidophilus/L. Spores Tablet PO SCH ×2 (08:44→13:18)
[2018-04-15] MEDS: DRONABINOL 2.5 MG CAPSULE PO SCH (08:45)
[2018-04-15] MEDS: Ascorbic Acid 500 MG Tablet PO SCH (08:46)
--- NOTE | 2018-04-15 13:44 | P.DS ---
Date of admission: 04/12/18 22:58 Primary care physician: UNKNOWN Brief History from admission: 78-year-old male with a history of prostate cancer, bladder cancer, kidney stones, status post bilateral urostomy tube placement on 02/28 presented to the ED with complaints of right and left flank pain. Patient says the pain is a sharp, aching, constant, 8/10, worse with movement, better with rest and pain medicine, with no radiation to the site of his nephrostomy tubes with associated decreased appetite Patient states the pain has been going on ever since he had the nephrostomy tubes placed. Nephrostomy tubes are draining clear yellow urine, patient is unsure if the amount has decreased. Denies any fevers or chills. DS: Summary Hospital Course: Mr. Redmond is a 78-year-old male. He was admitted secondary to pyelonephritis with acute kidney injury. He has a history of prostate cancer, bladder cancer, kidney stones, status post bilateral urostomy tube placement on 02/28. Since that time he has been in a rehab facility recovering. While in this hospital he had nephrostomy tubes replaced and has been treated with Rocephin and in addition to his vancomycin. Status post procedure he is showing improvements and signs of infection are resolving. No specific bacteria grew on culture. He is medically stable for discharge with resumption of previous treatments including vancomycin. Additionally he will have Bactrim as a treatment for his most recent urinary tract infection. Medically clear and stable for discharge back to longterm facility today. - Time Spent with Patient Total time spent providing and/or coordinating discharge services: Greater than 30 minutes - Quality: VTE Deep Vein Thrombosis/Pulmonary Embolism Present on Admission: No Exam Vital signs: Vital Signs 04/14/18 17:06 04/14/18 19:42 04/14/18 20:00 Temperature 96.3 F L 98.1 F Pulse Rate 87 76 82 Respiratory Rate 16 22 Blood Pressure 145/86 H 148/85 H Pulse Oximetry 100 100 04/14/18 23:15 04/15/18 00:00 04/15/18 03:58 Temperature 97.9 F 98.0 F Pulse Rate 116 H 109 H 121 H Respiratory Rate 22 22 Blood Pressure 126/81 112/80 Pulse Oximetry 97 97 04/15/18 04:47 04/15/18 07:15 04/15/18 09:30 Temperature 97.5 F L Pulse Rate 88 112 H 106 H Respiratory Rate 16 Blood Pressure 120/81 Pulse Oximetry 96 04/15/18 11:00 Temperature Pulse Rate 83 Respiratory Rate Blood Pressure Pulse Oximetry Intake & Output 04/14/18 04/15/18 04/15/18 18:59 06:59 18:59 Intake Total 0 / 0 1362.5 / 1362.5 800 / 800 Output Total 700 / 700 450 / 450 575 / 575 Balance -700 / -700 912.5 / 912.5 225 / 225 Intake: IV 0 / 0 1362.5 / 1362.5 800 / 800 NS Inj 1,000 ML @ 100 mls/hr IV 1000 / 1000 700 / 700 .CONT .Q10H [facility] Rx#:[id number] Vancomycin Inj 1,250 MG In NS 262.5 / 262.5 Inj 250 ML @ 250 mls/hr IV.SIG ONCE ONE Rx#:[id number] Rocephin Inj 1,000 MG In NS Inj 0 / 0 100 / 100 100 / 100 100 ML @ 200 mls/hr IV.SIG Q24H [facility] Rx#:[id number] Output: Urine 450 / 450 Urine Amount (Stoma) 700 / 700 575 / 575 Continent Urostomy Right 200 / 200 Nephrostomy Tube 700 / 700 375 / 375 Other: Date of Last Bowel Movement 04/13/18 04/14/18 # Bowel Movements 1 Results Procedures completed during hospitalization: Nephrostomy tube replacement Labs on day of discharge: Labs from last 24 hours 04/15/18 04/15/18 04/14/18 07:00 07:00 08:07 WBC 7.9 RBC 3.00 L Hgb 8.9 L Hct 27.0 L MCV 90.1 MCH 29.6 MCHC 32.9 RDW 17.5 H Plt Count 295 MPV 7.7 Neut % (Auto) 65.9 Lymph % (Auto) 14.3 Otoe % (Auto) 9.8 H Eos % (Auto) 9.3 H Baso % (Auto) 0.7 Neut # (Auto) 5.2 Lymph # (Auto) 1.1 Otoe # (Auto) 0.8 Eos # (Auto) 0.7 H Baso # (Auto) 0.1 WBC Differential . Differential Comment Auto diff final Sodium 143 Potassium 4.7 Chloride 113 H Carbon Dioxide 22.7 Anion Gap 7 BUN 46 H Creatinine 2.67 H Estimated GFR 23 L Random Glucose 81 Hemoglobin A1c 5.4 Calcium 8.4 L D Total Bilirubin 0.3 AST 17 ALT 24 Alkaline Phosphatase 89 Total Protein 6.4 D Albumin 2.4 L Preliminary micro results at discharge 04/12/18 21:20 Aerobic Blood Culture - Preliminary Blood - Peripheral No growth in 3 days Anaerobic Blood Culture - Preliminary No growth in 3 days 04/12/18 21:30 Aerobic Blood Culture - Preliminary Blood - Peripheral No growth in 3 days Anaerobic Blood Culture - Preliminary No growth in 3 days - Impressions ITS Impressions Abdomen/Pelvis CT 04/12/18 18:23 CONCLUSION: 1. Bilateral nephrostomies without intraperitoneal hematoma 2. Large gallstones in a benign-appearing gallbladder 3. Infrarenal abdominal aortic aneurysm appears stable in size. Nephrostomy Tube Change 04/13/18 00:00 CONCLUSION: 1. Uncomplicated nephrostomy tube exchange as above. Discharge Plan - Discharge Disposition Patient Disposition: Discharge to SNF - Discharge Condition Condition: Stable - Discharge Order Discharge Orders: Discharge Order (Routine); Ordered 04/15/18 Ordered By: Rancho Leon - Discharge Details Anticipated Discharge Date: 04/15/18 - Physicians Team Primary Care Provider: UNKNOWN, Attending Provider: Rancho Leon Other Providers: Lisandro Hernández MD ; Hansa [place]
== END 2018-04-15 17:04 ==
LOC: NEPC 17:49 → NEDA 22:58 → NEPHCDU 04-13 00:05
PROVIDERS: ADMIT Hospitalist; ATTEND Hospitalist

== ENCOUNTER 2018-04-25 10:46 | Inpatient (IN) ==
--- NOTE | 2018-04-25 12:15 | XR ---
EXAM DATE: 04/25/2018 12:09 PM EDT AGE/SEX: 78 years / Male INDICATIONS: Left hip pain, fall. CLINICAL DATA: This is the patient's initial encounter. Patient reports that signs and symptoms have been present for 1 day and indicates a pain score of 10/10. MEDICAL/SURGICAL HISTORY: None. . Left total hip COMPARISON: [facility] [place], PELVIS AP 1V, 04/25/2018. . FINDINGS: There has been previous pinning of the left hip. The hardware is intact. Alignment remains anatomic. The remainder of the femur is intact. There are some degenerative arthritic changes present at the kn ee. CONCLUSION: No acute bony findings Electronically signed by: Jose Boudreaux MD 04/25/2018 12:14 PM EDT
--- NOTE | 2018-04-25 12:16 | XR ---
EXAM DATE: 04/25/2018 12:08 PM EDT AGE/SEX: 78 years / Male INDICATIONS: Pelvic pain, fall. CLINICAL DATA: This is the patient's initial encounter. Patient reports that signs and symptoms have been present for 1 day and indicates a pain score of 10/10. MEDICAL/SURGICAL HISTORY: None. . Right hip replacement COMPARISON: [facility] [place], CT ABDOMEN & PELVIS W/O CONTRAST, 04/12/2018. . FINDINGS: AP view the pelvis demonstrates no acute fracture or dislocation. Sacroiliac joints are symmetric. Th ere is an antegrade intramedullary dayanara within the left proximal femur with a proximal femoral head an d neck screw. Hypertrophic bone is present in the region of the lesser trochanter likely related to o ld healed fracture. Innumerable clips overlie the pelvis bilaterally. Vascular calcification is prese nt. No soft tissue abnormality is seen. CONCLUSION: 1. No acute pelvis abnormality is identified. 2. Severe atherosclerotic disease. Electronically signed by: Jose Pathak MD 04/25/2018 12:15 PM EDT
[2018-04-25] MEDS ORDERED: Acetaminophen 500 MG Tablet PO ONE (12:42)
--- NOTE | 2018-04-25 15:28 | ED ---
HPI General Chief complaint: Extremity Injury, Lower Stated complaint: Leg pain Time Seen by Provider: 04/25/18 11:08 History of Present Illness HPI narrative: 78-year-old man, recent admission for sepsis acute kidney injury requiring nephrostomy tube, discharged to custodial facility, discharged from there yesterday, here for fall yesterday and left hip pain. Pain is in the left lateral side of the thigh and proximal hip. Was unable to really walk , was able to get himself back up into a chair. DCF case work aide/missing persons investigator called the ambulance today when she went to check on him. Related Data Home Medications Medication Instructions Recorded Confirmed dronabinol [Marinol] 2.5 mg PO BID 04/12/18 04/25/18 vancomycin [Firvanq] 250 mg PO QID 04/25/18 04/25/18 Previous Rx's Medication Instructions Recorded apixaban [Eliquis] 2.5 mg PO BID tab 03/20/18 midodrine 5 mg PO Q8H tab 03/20/18 sulfamethoxazole-trimethoprim 1 tab PO BID #10 tab 04/15/18 [Bactrim DS] Allergies Allergy/AdvReac Type Severity Reaction Status Date / Time crab Allergy Intermediate Rash Verified 04/12/18 18:03 Review of Systems ROS: all other systems reviewed are negative [facility] Medical History Medical History Hypotension (Chronic) Parotid mass (Chronic) COPD (chronic obstructive pulmonary disease) (Acute) H/O reduction of nasal fracture (Acute) History of Clostridium difficile infection (Acute) Kidney stones (Acute) Nasal bones, closed fracture (Acute) Prostate cancer (Acute) Renal failure (Acute) Subdural hematoma (Acute) Intertrochanteric fracture of left hip (Chronic) Surgical History Surgical History History of urostomy (Acute) Nephrostomy status (Acute) Family History Family History Other Osteoarthritis Social History Social History Substance History: No History of Abuse Second Hand Smoke Exposure: No Smoking Status: Never smoker Tobacco Type: Cigarettes How Often Do You Have a Drink Containing Alcohol: Monthly or less Recent Travel in [facility] within the Last 8 Weeks: No Recent Out of Country Travel within the Last 8 Weeks: No Immunization History Tetanus Immunization: <5 Years Hx Influenza Vaccine This Season: Yes Exam Narrative Exam Narrative: GENERAL: 78-year-old man, nontoxic, frail, no acute distress. SKIN: Focused skin assessment warm/dry. HEAD: Atraumatic. Normocephalic. EYES: Pupils equal and round. No scleral icterus. No injection or drainage. ENT: No nasal bleeding or discharge. Mucous membranes pink and moist. NECK: Trachea midline. No JVD. CARDIOVASCULAR: Regular rate and rhythm. No murmur appreciated. RESPIRATORY: No accessory muscle use. Clear to auscultation. Breath sounds equal bilaterally. GASTROINTESTINAL: Abdomen soft, non-tender, nondistended. Hepatic and splenic margins not palpable. MUSCULOSKELETAL: Tender on the left aspect of the proximal thigh and over the greater trochanter. There is no ecchymosis or bruising that I can see. Well- healed surgical scars. Full range of motion of the hip. No limitation. Some pain with weightbearing. No other obvious injuries. NEUROLOGICAL: Awake and alert. No obvious cranial nerve deficits. Motor grossly within normal limits. Normal speech. PSYCHIATRIC: Appropriate mood and affect; insight and judgment normal. Course Initial Documented Vital Signs Temperature 97.7 F 04/25/18 10:59 Pulse Rate 97 H 04/25/18 10:59 Respiratory Rate 16 04/25/18 10:59 Blood Pressure 101/71 04/25/18 10:59 Pulse Oximetry 98 04/25/18 10:59 Last Documented Vital Signs Temperature 97.7 F 04/25/18 10:59 Pulse Rate 97 H 04/25/18 10:59 Respiratory Rate 16 04/25/18 10:59 Blood Pressure 101/71 04/25/18 10:59 Pulse Oximetry 98 04/25/18 10:59 Medical Decision Making MDM Narrative Medical decision making narrative: 78-year-old man, fall of the left hip. X- rays are negative. Recent discharge. Complicated social history. Spoke with the case work aide from [facility], spoke with the case work aide here. He apparently ran out of days with his [facility] and so he was discharged from the nursing facility. He reportedly still has days with his Medicare, will try to replace him in the facility for further treatment. We got off the walker when he can walk however he cannot get up or sit down without significant help at this point. Medical Screen Exam Complete: Yes Emergency Medical Condition: Yes Imaging Data Radiologist's impression: Femur X-Ray 04/25/18 11:23 CONCLUSION: No acute bony findings Pelvis X-Ray 04/25/18 11:35 CONCLUSION: 1. No acute pelvis abnormality is identified. 2. Severe atherosclerotic disease. Discharge Plan Discharge Disposition Patient Disposition: Discharge to SNF Discharge Condition Condition: Good Discharge Order Discharge Orders: Discharge Order (Routine); Ordered 04/25/18 Ordered By: Luke Martinez Discharge Details Diagnosis: Acute hip pain, Fall Physicians Team ED Provider: Luke Martinez Primary Care Provider: UNKNOWN, Other Providers: Hansa Ac,Agency Rxs /Orders / Referrals /Forms Prescriptions: No Action midodrine 5 mg Tablet 5 mg PO Q8H RF: 0 apixaban [Eliquis] 2.5 mg Tablet 2.5 mg PO BID RF: 0 dronabinol [Marinol] 2.5 mg Capsule 2.5 mg PO BID RF: 0 sulfamethoxazole-trimethoprim [Bactrim DS] 800-160 mg Tablet 1 tab PO BID Qty: 10 RF: 0 vancomycin [Firvanq] 50 mg/mL Recon Soln 250 mg PO QID RF: 0 Discharge Instructions Additional Instructions: Continue current medications. Status ED Status: Ready for Discharge
[2018-04-26 15:30] LABS: Baso % (Auto) 0.7 % (0.0-2.0); Eos # (Auto) 0.3 th/mm3 (0.0-0.4); Eos % (Auto) 3.7 % (0.0-4.0); Hematocrit 31.2 % (39.0-51.0); Hemoglobin 10.2 gm/dL (13.0-17.0); Lymph # (Auto) 1.1 th/mm3 (1.0-4.8); Lymph % (Auto) 16.5 % (9.0-44.0); Mean Corpuscular HGB Conc 32.8 % (32.0-36.0); Mean Corpuscular Hemoglobin 30.1 pg (27.0-34.0); Mean Corpuscular Volume 91.7 fL (80.0-100.0); Mean Platelet Volume 8.3 fL (7.0-11.0); Mono # (Auto) 0.5 th/mm3 (0.0-0.9); Mono % (Auto) 7.5 % (0.0-8.0); Neut # (Auto) 4.9 th/mm3 (1.8-7.7); Neut % (Auto) 71.6 % (16.0-70.0); Platelet Count 270 th/mm3 (150-450); Red Cell Distribution Width 18.1 % (11.6-17.2); White Blood Count 6.9 th/mm3 (4.0-11.0)
[2018-04-26 15:53] LABS: Bacteria,Urine Many /hpf; Bilirubin,Urine Negative (Negative); Calcium Oxalate Crystals,Urine Occasional /hpf; Clarity,Urine Cloudy (Clear); Color,Urine Yellow (Yellw/Straw); Glucose,Urine (UA) Negative (Negative); Leukocyte Esterase,Urine Large (Negative); Nitrite,Urine Negative (Negative); Specific Gravity,Urine 1.012 (1.002-1.035); Squamous Epithelial Cell,Urine <1 /hpf (0-5)
[2018-04-26 15:57] LABS: Alanine Aminotransferase 38 U/L (12-78); Albumin 3.3 g/dL (3.4-5.0); Anion Gap 10 meq/L (5-15); Aspartate Aminotransferase 25 U/L (15-37); Blood Urea Nitrogen 52 mg/dL (7-18); Calcium 9.1 mg/dL (8.5-10.1); Carbon Dioxide 26.3 meq/L (21.0-32.0); Chloride 104 meq/L (98-107); Glomerular Filtration Rate 16 mL/min (>89); Glucose,Random 72 mg/dL (74-106); Lipase 339 U/L (73-393); Potassium 4.3 meq/L (3.5-5.1); Sodium 140 meq/L (136-145)
[2018-04-26 15:59] LABS: Alkaline Phosphatase 114 U/L (45-117); Total Protein 8.1 g/dL (6.4-8.2)
--- NOTE | 2018-04-26 16:59 | P.HPIM ---
History of Present Illness Primary Care Physician: UNKNOWN Chief Complaint: Fall History of Present Illness: The patient is a 78-year-old male with a past medical history of obstructing renal stones requiring bilateral nephrostomy tube placement who is presenting to the hospital from a halfway facility after having a fall. The patient said that he was picking up a bottle of water that was on the ground and he fell down hard on his left knee. He said he has had severe pain in that left lower extremity after the fall. He was brought to the emergency department for evaluation. The patient had imaging and was cleared to go back to the halfway facility, however, the facility refused to take him back. Case management has been trying to get the patient back to a facility but as the patient has been unable to be placed it was decided to admit the patient to observation. The patient currently complains of some pain in his left knee. He is requesting Tylenol. The patient denies any other acute issues. He states that his left nephrostomy tube seems to be leaking all of the time. He says he follows up with a urologist regularly. He states that he no longer has any diarrhea. 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 - Medical History Medical History: Medical History (Last Updated 04/26/18 @ 16:52 by Jaret Joseph DO) UTI (urinary tract infection) Hypotension Parotid mass COPD (chronic obstructive pulmonary disease) H/O reduction of nasal fracture History of Clostridium difficile infection Kidney stones Nasal bones, closed fracture Prostate cancer Renal failure Subdural hematoma Intertrochanteric fracture of left hip - Surgical History Surgical History: Surgical History (Last Reviewed 04/25/18 @ 15:25 by Luke Martinez MD) History of urostomy Nephrostomy status - Family History Family History: Family History (Last Reviewed 04/25/18 @ 15:25 by Luke Martinez MD) Other Osteoarthritis - Tobacco History Second Hand Smoke Exposure: No Smoking Status: Never smoker - Alcohol History How Often Do You Have a Drink Containing Alcohol: Monthly or less - Substance Use History Substance History: No History of Abuse - Travel History Recent Travel in the [place] Within the Last 8 Weeks: No Recent Travel Out of the Country Within the Last 8 Weeks: No - Immunization History Tetanus Immunization: <5 Years Hx Influenza Vaccine This Season: Yes Medications and Allergies Active Medications: Active Medications Acetaminophen (Tylenol) 650 mg PO Q4H PRN PRN Reason: Temp > 100.4 or pain 1-5 Apixaban (Eliquis) 2.5 mg PO BID [facility] Dronabinol (Marinol) 2.5 mg PO BID [facility] Dextrose/Sodium Chloride (D5w/Normal Saline Inj) 1,000 mls @ 100 mls/hr IV.CONT .Q10H [facility] Stop: 04/27/18 12:29 Midodrine (Proamatine) 5 mg PO Q8H [facility] Non-Formulary Medication (Vancomycin [Firvanq]) 250 mg PO QID [facility] Senna/Docusate Sodium (Maggi-Colace) 1 tab PO BID [facility] Allergies Allergy/AdvReac Type Severity Reaction Status Date / Time crab Allergy Intermediate Rash Verified 04/12/18 18:03 Home Medications Medication Instructions Recorded Confirmed Type dronabinol [Marinol] 2.5 mg PO BID 04/12/18 04/25/18 History vancomycin [Firvanq] 250 mg PO QID 04/25/18 04/25/18 History Exam Vital signs: Vital Signs 04/25/18 19:00 04/26/18 11:50 04/26/18 14:55 Pulse Rate 101 H 100 H 100 H Respiratory Rate 18 18 16 Blood Pressure 124/66 109/75 100/70 Pulse Oximetry 100 98 100 Intake & Output 04/25/18 04/26/18 04/26/18 18:59 06:59 18:59 Weight 62.596 kg Narrative: GENERAL: Frail, no acute distress. SKIN: Focused skin assessment warm/dry. HEAD: Atraumatic. Normocephalic. EYES: Pupils equal and round. No scleral icterus. No injection or drainage. ENT: No nasal bleeding or discharge. Mucous membranes pink and moist. NECK: Trachea midline. No JVD. CARDIOVASCULAR: Tachycardic. No murmur appreciated. RESPIRATORY: No accessory muscle use. Clear to auscultation. Breath sounds equal bilaterally. GASTROINTESTINAL: Abdomen soft, non-tender, nondistended. Hepatic and splenic margins not palpable. MUSCULOSKELETAL: Bilateral nephrostomy tubes in place. No lower extremity edema. NEUROLOGICAL: Awake and alert. No obvious cranial nerve deficits. Motor grossly within normal limits. Normal speech. Results - Labs CBC & Chem 7: 04/26/18 14:40 04/26/18 14:40 Labs: Short CBC 04/26/18 Range/Units 14:40 WBC 6.9 (4.0-11.0) th/mm3 Hgb 10.2 L (13.0-17.0) gm/dL Hct 31.2 L (39.0-51.0) % Plt Count 270 (150-450) th/mm3 BMP 04/26/18 14:40 Sodium 140 Potassium 4.3 Chloride 104 Carbon Dioxide 26.3 BUN 52 H Creatinine 3.64 H Calcium 9.1 Liver Function 04/26/18 Range/Units 14:40 Total Bilirubin 0.5 (0.2-1.0) mg/dL AST 25 (15-37) U/L ALT 38 (12-78) U/L Alkaline Phosphatase 114 (45-117) U/L Albumin 3.3 L (3.4-5.0) g/dL Urine 04/26/18 Range/Units 14:40 Urine Color Yellow (Yellw/Straw) Urine Clarity Cloudy H (Clear) Urine pH 7.0 (5.0-8.5) Ur Specific [place] 1.012 (1.002-1.035) Urine Protein 100 H (Neg-Trace) mg/dL Urine Glucose (UA) Negative (Negative) mg/dL Caprini VTE Risk Assessment Caprini VTE Risk Assessment: Moderate/High Risk (score >= 2) Caprini Risk Assessment Model: Point Value = 1 Point Value = 2 Point Value = 3 Point Value = 5 Age 41-60 Minor surgery BMI > 25 kg/m2 Swollen legs Varicose veins or History of unexplained or recurrent spontaneous Oral contraceptives or hormone replacement Sepsis (< 1 month) Serious lung disease, including pneumonia (< 1 month) Abnormal pulmonary function Acute myocardial infarction Congestive heart failure (< 1 month) History of inflammatory bowel disease Medical patient at bed rest Age 61-74 Arthroscopic surgery Major open surgery (> 45 min) Laparoscopic surgery (> 45 min) Malignancy Confined to bed (> 72 hours) Immobilizing plaster cast Central venous access Age >= 75 History of VTE Family history of VTE Factor V Leiden Prothrombin [id number] Lupus anticoagulant Anticardiolipin antibodies Elevated serum homocysteine Heparin-induced thrombocytopenia Other congenital or acquired thrombophilia Stroke (< 1 month) Elective arthroplasty Hip, pelvis, or leg fracture Acute spinal cord injury (< 1 month) Prophylaxis Regimen: Total Risk Factor Score Risk Level Prophylaxis Regimen 0-1 Low Early ambulation 2 Moderate Order ONE of the following: *Sequential Compression Device (SCD) *Heparin 5000 units SQ BID 3-4 Higher Order ONE of the following medications: *Heparin 5000 units SQ TID *Enoxaparin/Lovenox 40 mg SQ daily (WT < 150 kg, CrCl > 30 mL/min) *Enoxaparin/Lovenox 30 mg SQ daily (WT < 150 kg, CrCl > 10-29 mL/min) *Enoxaparin/Lovenox 30 mg SQ BID (WT < 150 kg, CrCl > 30 mL/min) AND/OR *Sequential Compression Device (SCD) 5 or more Highest Order ONE of the following medications: *Heparin 5000 units SQ TID (Preferred with Epidurals) *Enoxaparin/Lovenox 40 mg SQ daily (WT < 150 kg, CrCl > 30 mL/min) *Enoxaparin/Lovenox 30 mg SQ daily (WT < 150 kg, CrCl > 10-29 mL/min) *Enoxaparin/Lovenox 30 mg SQ BID (WT < 150 kg, CrCl > 30 mL/min) AND *Sequential Compression Device (SCD) Assessment and Plan - Plan Fall Pt complaining of LLE pain. Imaging negative. Cleared for discharge back to SNF , however, SNF did not accept pt back so he was admitted. -case management consult for placement. -PT/OT. -pain control as needed. Complex UTI/ Acute on chronic renal failure The pt has bilateral nephrostomy tubes for obstructing kidney stones. Recently completed course of antibiotics. Repeat UA indicative of infection but may simply be colonization. Creatinine is elevated. -follow cultures. -nephrostomy care. -IVFs. -avoid nephrotoxins. -consult urology as needed. C. difficile colitis Pt not complaining of diarrhea at this time. -Continue p.o. vancomycin until 04/28 per prior ID recommendation. Anemia Chronic. Appears to be at baseline. -follow CBC. DVT prophylaxis: Eliquis Code Status: Full
[2018-04-26] MEDS ORDERED: Acetaminophen 325 MG Tablet PO PRN (17:00)
[2018-04-26] MEDS: DRONABINOL 2.5 MG CAPSULE PO SCH (22:05)
[2018-04-26] MEDS: Senna/Docusate Sodium 8.6/50 MG Tablet PO SCH (22:06)
[2018-04-26] MEDS: Dextrose 5%/NaCl 0.9% Inj 1,000 ML IV.CONT SCH (23:39)
[2018-04-27 05:30] LABS: Calcium 8.6 mg/dL (8.5-10.1); Carbon Dioxide 25.4 meq/L (21.0-32.0); Potassium 4.4 meq/L (3.5-5.1)
[2018-04-27 06:23] LABS: Baso % (Auto) 0.8 % (0.0-2.0); Eos # (Auto) 0.4 th/mm3 (0.0-0.4); Eos % (Auto) 5.8 % (0.0-4.0); Hematocrit 27.7 % (39.0-51.0); Hemoglobin 9.1 gm/dL (13.0-17.0); Lymph # (Auto) 1.5 th/mm3 (1.0-4.8); Lymph % (Auto) 24.8 % (9.0-44.0); Mean Corpuscular HGB Conc 32.8 % (32.0-36.0); Mean Corpuscular Volume 91.5 fL (80.0-100.0); Mean Platelet Volume 8.5 fL (7.0-11.0); Mono # (Auto) 0.7 th/mm3 (0.0-0.9); Mono % (Auto) 11.3 % (0.0-8.0); Neut # (Auto) 3.6 th/mm3 (1.8-7.7); Neut % (Auto) 57.3 % (16.0-70.0); Platelet Count 221 th/mm3 (150-450); Red Blood Count 3.03 mil/mm3 (4.50-5.90); Red Cell Distribution Width 18.8 % (11.6-17.2); White Blood Count 6.2 th/mm3 (4.0-11.0)
--- NOTE | 2018-04-27 09:37 | P.PNIM ---
Subjective Interval history: The patient is a 78-year-old male with a past medical history of obstructing renal stones requiring bilateral nephrostomy tube placement who is presenting to the hospital from a correction facility after having a fall. The patient said that he was picking up a bottle of water that was on the ground and he fell down hard on his left knee. He said he has had severe pain in that left lower extremity after the fall. He was brought to the emergency department for evaluation. The patient had imaging and was cleared to go back to the correction facility, however, the facility refused to take him back. Case management has been trying to get the patient back to a facility but as the patient has been unable to be placed it was decided to admit the patient to observation. The patient currently complains of some pain in his left knee. He is requesting Tylenol. The patient denies any other acute issues. He states that his left nephrostomy tube seems to be leaking all of the time. He says he follows up with a urologist regularly. He states that he no longer has any diarrhea. 8-30 AWAIT PLACEMENT NEEDS TO GO TO SNF-- HAS NO MORE DAYS HAS BL NEPHROSTOMY TUBES IN PLACE AND FUNCTIONING WELL DW RN AND PT AND CASE MANAGEMENT WILL NEED [facility] WITH [facility] NOT ABLE TO TAKE CARE OF HIMSELF AND HAS NO MORE SNF DAYS LEFT PT AND OT DAILY Physical Exam Vital signs: Vital Signs 04/26/18 11:50 04/26/18 14:55 04/26/18 18:08 Temperature 97.7 F Pulse Rate 100 H 100 H 101 H Respiratory Rate 18 16 14 Blood Pressure 109/75 100/70 88/65 L Pulse Oximetry 98 100 98 04/26/18 19:28 04/26/18 23:34 04/27/18 01:25 Temperature 97.6 F 97.9 F 97.9 F Pulse Rate 89 103 H 103 H Respiratory Rate 18 20 20 Blood Pressure 89/62 L 72/53 L 72/53 L Pulse Oximetry 100 95 04/27/18 04:00 04/27/18 05:53 04/27/18 07:42 Temperature 97.9 F 97.7 F Pulse Rate 103 H 90 76 Respiratory Rate 20 18 Blood Pressure 72/53 L 93/63 L 91/62 L Pulse Oximetry 103 H 99 100 Intake & Output 04/26/18 04/27/18 04/27/18 18:59 06:59 18:59 Weight 62.596 kg Other: Weight On Admission 62.596 kg Narrative: GENERAL: Frail, no acute distress. SKIN: Focused skin assessment warm/dry. HEAD: Atraumatic. Normocephalic. EYES: Pupils equal and round. No scleral icterus. No injection or drainage. ENT: No nasal bleeding or discharge. Mucous membranes pink and moist. NECK: Trachea midline. No JVD. CARDIOVASCULAR: Tachycardic. No murmur appreciated. RESPIRATORY: No accessory muscle use. Clear to auscultation. Breath sounds equal bilaterally. GASTROINTESTINAL: Abdomen soft, non-tender, nondistended. Hepatic and splenic margins not palpable. MUSCULOSKELETAL: Bilateral nephrostomy tubes in place. No lower extremity edema. NEUROLOGICAL: Awake and alert. No obvious cranial nerve deficits. Motor grossly within normal limits. Normal speech. HAS BILATERAL NEPHROSTOMY TUBES IN PLACE Results - Labs CBC & Chem 7: 04/27/18 04:30 04/27/18 04:30 Laboratory Results - last 24 hr 04/26/18 04/26/18 04/26/18 14:40 14:40 14:40 WBC 6.9 RBC 3.40 L Hgb 10.2 L Hct 31.2 L MCV 91.7 MCH 30.1 MCHC 32.8 RDW 18.1 H Plt Count 270 MPV 8.3 Neut % (Auto) 71.6 H Lymph % (Auto) 16.5 [place] % (Auto) 7.5 Eos % (Auto) 3.7 Baso % (Auto) 0.7 Neut # (Auto) 4.9 Lymph # (Auto) 1.1 [place] # (Auto) 0.5 Eos # (Auto) 0.3 Baso # (Auto) 0.0 WBC Differential . Differential Comment Auto diff final Hematology Comments Sodium 140 Potassium 4.3 Chloride 104 Carbon Dioxide 26.3 Anion Gap 10 BUN 52 H Creatinine 3.64 H Estimated GFR 16 L Random Glucose 72 L Lactic Acid 1.4 Calcium 9.1 Total Bilirubin 0.5 AST 25 ALT 38 Alkaline Phosphatase 114 Total Protein 8.1 Albumin 3.3 L Lipase 339 Urine Color Urine Clarity Urine pH Ur Specific [place] Urine Protein Urine Glucose (UA) Urine Ketones Urine Occult Blood Urine Nitrate Urine Bilirubin Urine Urobilinogen Ur Leukocyte Esterase Urine RBC Urine WBC Urine WBC Clumps Ur Squamous Epith Cells Calcium Oxalate Crystal Urine Bacteria Ur Yeast w Hyphae Micro UA Comment Ur Microscopic Review Urine Culture Comments 04/26/18 04/27/18 04/27/18 14:40 04:30 04:30 WBC 6.2 RBC 3.03 L Hgb 9.1 L Hct 27.7 L MCV 91.5 MCH 30.0 MCHC 32.8 RDW 18.8 H Plt Count 221 MPV 8.5 Neut % (Auto) 57.3 Lymph % (Auto) 24.8 [place] % (Auto) 11.3 H Eos % (Auto) 5.8 H Baso % (Auto) 0.8 Neut # (Auto) 3.6 Lymph # (Auto) 1.5 [place] # (Auto) 0.7 Eos # (Auto) 0.4 Baso # (Auto) 0.0 WBC Differential . Differential Comment Auto diff final Hematology Comments Sodium 141 Potassium 4.4 Chloride 107 Carbon Dioxide 25.4 Anion Gap 9 BUN 51 H Creatinine 3.44 H Estimated GFR 17 L Random Glucose 90 Lactic Acid Calcium 8.6 Total Bilirubin AST ALT Alkaline Phosphatase Total Protein Albumin Lipase Urine Color Yellow Urine Clarity Cloudy H Urine pH 7.0 Ur Specific [place] 1.012 Urine Protein 100 H Urine Glucose (UA) Negative Urine Ketones Negative Urine Occult Blood Large H Urine Nitrate Negative Urine Bilirubin Negative Urine Urobilinogen Less than 2 Ur Leukocyte Esterase Large H Urine RBC 81 H Urine WBC 180 H Urine WBC Clumps Rare H Ur Squamous Epith Cells <1 Calcium Oxalate Crystal Occasional H Urine Bacteria Many H Ur Yeast w Hyphae Occasional H Micro UA Comment Culture indicated Ur Microscopic Review Not Reportable Urine Culture Comments Culture indicated - Imaging Femur X-Ray 04/25/18 11:23 CONCLUSION: No acute bony findings Pelvis X-Ray 04/25/18 11:35 CONCLUSION: 1. No acute pelvis abnormality is identified. 2. Severe atherosclerotic disease. Assessment and Plan - Plan Fall Pt complaining of LLE pain. Imaging negative. Cleared for discharge back to SNF , however, SNF did not accept pt back so he was admitted. -case management consult for placement. -PT/OT. -pain control as needed. Complex UTI/ Acute on chronic renal failure The pt has bilateral nephrostomy tubes for obstructing kidney stones. Recently completed course of antibiotics. Repeat UA indicative of infection but may simply be colonization. Creatinine is elevated. -follow cultures. -nephrostomy care. -IVFs. -avoid nephrotoxins. -consult urology as needed. C. difficile colitis Pt not complaining of diarrhea at this time. -Continue p.o. vancomycin until 04/28 per prior ID recommendation. Anemia Chronic. Appears to be at baseline. -follow CBC. DVT prophylaxis: Marla Discussed Condition With: RN AND PT AND CM Discharge Planning: DC TO SNF WHEN BED AVAILABLE
[2018-04-27] MEDS: Senna/Docusate Sodium 8.6/50 MG Tablet PO SCH ×2 (11:58→20:48)
[2018-04-27] MEDS: DRONABINOL 2.5 MG CAPSULE PO SCH ×2 (11:58→20:48)
--- NOTE | 2018-04-27 14:06 | P.DCO ---
- Diagnosis (6) Anemia - Physical Therapy Order: Evaluate and treat, Improve ambulation, Strength and gait training - Occupational Therapy Order: Evaluate and treat, Improve ADL, Gross motor coordination, Fine motor coordination - Home Health Nursing Order: Medical education, Signs/symptoms of disease process, Nursing assessment with vital signs, Telehealth - Home Health Aide Order: To assist in: Bathing and personal care, restaurant area director and meal prep - Certification I have seen patient Juan Pablo Redmond on 04/27/18. My clinical findings support the need for the requested home health care services because: Limited mobility due to disease progression, Deconditioned with increased weakness, Medication compliance is questionable, Limited ability to care for self, High risk of falls I certify that my clinical findings support that this patient is homebound because: Impaired cognitive ability/safety, Unsteady gait/balance, Need for psychosocial assistance (6) Anemia Qualifiers: Anemia type: unspecified type Qualified Code(s): D64.9 - Anemia, unspecified
[2018-04-27] MEDS: Dextrose 5%/NaCl 0.9% Inj 1,000 ML IV.CONT SCH (19:40)
[2018-04-28] MEDS: DRONABINOL 2.5 MG CAPSULE PO SCH ×2 (09:20→22:02)
[2018-04-28] MEDS: Senna/Docusate Sodium 8.6/50 MG Tablet PO SCH ×2 (09:20→22:03)
--- NOTE | 2018-04-28 12:23 | P.PNIM ---
Subjective Interval history: The patient is a 78-year-old male with a past medical history of obstructing renal stones requiring bilateral nephrostomy tube placement who is presenting to the hospital from a [facility] facility after having a fall. The patient said that he was picking up a bottle of water that was on the ground and he fell down hard on his left knee. He said he has had severe pain in that left lower extremity after the fall. He was brought to the emergency department for evaluation. The patient had imaging and was cleared to go back to the [facility] facility, however, the facility refused to take him back. Case management has been trying to get the patient back to a facility but as the patient has been unable to be placed it was decided to admit the patient to observation. The patient currently complains of some pain in his left knee. He is requesting Tylenol. The patient denies any other acute issues. He states that his left nephrostomy tube seems to be leaking all of the time. He says he follows up with a urologist regularly. He states that he no longer has any diarrhea. 04-27 AWAIT PLACEMENT NEEDS TO GO TO SNF-- HAS NO MORE DAYS HAS BL NEPHROSTOMY TUBES IN PLACE AND FUNCTIONING WELL DW RN AND PT AND CASE MANAGEMENT WILL NEED [facility] WITH [facility] NOT ABLE TO TAKE CARE OF HIMSELF AND HAS NO MORE SNF DAYS LEFT PT AND OT DAILY 04-28 HAS PSEUDOMONAS AND GROUP D ENTEROCOCCUS WILL DO CIPRO AND AMPICILLIN CONTINUE VANCO PO DC TO [facility] TODAY WITH [facility] Physical Exam Vital signs: Vital Signs 04/27/18 15:54 04/27/18 20:00 04/28/18 00:00 Temperature 97.7 F 98.3 F 98.4 F Pulse Rate 88 72 81 Respiratory Rate 18 16 16 Blood Pressure 85/58 L 94/64 L 83/53 L Pulse Oximetry 99 99 98 04/28/18 04:00 04/28/18 08:00 04/28/18 12:14 Temperature 98.4 F 97.9 F 98.2 F Pulse Rate 81 70 70 Respiratory Rate 16 18 20 Blood Pressure 83/53 L 100/60 100/60 Pulse Oximetry 98 96 96 Intake & Output 04/27/18 04/28/18 04/28/18 18:59 06:59 18:59 Intake Total 0 / 0 0 / 0 1000 / 1000 Balance 0 / 0 0 / 0 1000 / 1000 Weight 62.596 kg Intake: IV 0 / 0 1000 / 1000 D5W/Normal Saline Inj 1,000 ML 0 / 0 @ 100 mls/hr IV.CONT .Q10H [facility] Rx#:[id number] Oral 0 / 0 Other: # Voids 3 Date of Last Bowel Movement 04/28/18 # Incontinent Bowel Movements 4 Narrative: GENERAL: Frail, no acute distress. SKIN: Focused skin assessment warm/dry. HEAD: Atraumatic. Normocephalic. EYES: Pupils equal and round. No scleral icterus. No injection or drainage. ENT: No nasal bleeding or discharge. Mucous membranes pink and moist. NECK: Trachea midline. No JVD. CARDIOVASCULAR: Tachycardic. No murmur appreciated. RESPIRATORY: No accessory muscle use. Clear to auscultation. Breath sounds equal bilaterally. GASTROINTESTINAL: Abdomen soft, non-tender, nondistended. Hepatic and splenic margins not palpable. MUSCULOSKELETAL: Bilateral nephrostomy tubes in place. No lower extremity edema. NEUROLOGICAL: Awake and alert. No obvious cranial nerve deficits. Motor grossly within normal limits. Normal speech. HAS BILATERAL NEPHROSTOMY TUBES IN PLACE Results - Labs CBC & Chem 7: 04/27/18 04:30 04/27/18 04:30 Laboratory Results - last 24 hr 04/26/18 14:40 Urine Color Yellow Urine Clarity Cloudy H Urine pH 7.0 Ur Specific [place] 1.012 Urine Protein 100 H Urine Glucose (UA) Negative Urine Ketones Negative Urine Occult Blood Large H Urine Nitrate Negative Urine Bilirubin Negative Urine Urobilinogen Less than 2 Ur Leukocyte Esterase Large H Urine RBC 81 H Urine WBC 180 H Urine WBC Clumps Rare H Ur Squamous Epith Cells <1 Calcium Oxalate Crystal Occasional H Urine Bacteria Many H Ur Yeast w Hyphae Occasional H Micro UA Comment Culture indicated Urine Culture Comments Culture indicated Microbiology 04/26/18 14:40 Clean Catch Urine Urine Culture - Preliminary Pseudomonas aeruginosa Group D Enterococcus - Procedures NONE Assessment and Plan - Assessment (1) Obstructive uropathy Code(s): N13.9 - Obstructive and reflux uropathy, unspecified Status: Acute (2) Atrial fibrillation Code(s): I48.91 - Unspecified atrial fibrillation Status: Acute (3) Acute on chronic kidney failure Code(s): N17.9 - Acute kidney failure, unspecified; N18.9 - Chronic kidney disease, unspecified Status: Acute (4) Acute pyelonephritis Code(s): N10 - Acute pyelonephritis Status: Acute (5) SANDI (acute kidney injury) Code(s): N17.9 - Acute kidney failure, unspecified Status: Acute (6) Anemia Code(s): D64.9 - Anemia, unspecified Status: Acute (7) Fall Code(s): W19.XXXA - Unspecified fall, initial encounter Status: Acute - Plan Fall Pt complaining of LLE pain. Imaging negative. Cleared for discharge back to SNF , however, SNF did not accept pt back so he was admitted. -case management consult for placement. -PT/OT. -pain control as needed. Complex UTI/ Acute on chronic renal failure The pt has bilateral nephrostomy tubes for obstructing kidney stones. Recently completed course of antibiotics. Repeat UA indicative of infection but may simply be colonization. Creatinine is elevated. -follow cultures. -nephrostomy care. -IVFs. -avoid nephrotoxins. -consult urology as needed. C. difficile colitis Pt not complaining of diarrhea at this time. -Continue p.o. vancomycin PSEUDOMONAS CONTINUE CIPRO GROUP D ENTEROCOCCUS AMPICILLIN Anemia Chronic. Appears to be at baseline. -follow CBC. DVT prophylaxis: Shanelquariel Discussed Condition With: RN AND PT AND CM Discharge Planning: DC TO [facility] (6) Anemia Qualifiers: Anemia type: unspecified type Qualified Code(s): D64.9 - Anemia, unspecified
[2018-04-28] MEDS ORDERED: levoFLOXacin 250 MG Tablet PO SCH (12:30)
--- NOTE | 2018-04-28 12:33 | P.DS ---
Date of admission: 04/26/18 16:21 Primary care physician: UNKNOWN Attending physician on discharge: David Narvaez Anticipated date of discharge: 04/28/18 Brief History from admission: The patient is a 78-year-old male with a past medical history of obstructing renal stones requiring bilateral nephrostomy tube placement who is presenting to the hospital from a long-term facility after having a fall. The patient said that he was picking up a bottle of water that was on the ground and he fell down hard on his left knee. He said he has had severe pain in that left lower extremity after the fall. He was brought to the emergency department for evaluation. The patient had imaging and was cleared to go back to the long-term facility, however, the facility refused to take him back. Case management has been trying to get the patient back to a facility but as the patient has been unable to be placed it was decided to admit the patient to observation. The patient currently complains of some pain in his left knee. He is requesting Tylenol. The patient denies any other acute issues. He states that his left nephrostomy tube seems to be leaking all of the time. He says he follows up with a urologist regularly. He states that he no longer has any diarrhea. Patient update on day of discharge: DC TO [facility] TODAY RX WRITTEN DS: Diagnosis - Discharge Diagnosis (1) Obstructive uropathy Status: Chronic (2) Atrial fibrillation Status: Chronic (3) Acute on chronic kidney failure Status: Chronic (4) Acute pyelonephritis Status: Chronic (5) SANDI (acute kidney injury) Status: Chronic (6) Anemia Status: Chronic (7) Fall Status: Chronic DS: Medications - Discharge Medications Prescriptions: ampicillin 500 mg PO Q6HR 14 Days #56 cap apixaban [Eliquis] 2.5 mg PO BID #60 tab ciprofloxacin HCl 250 mg PO DAILY #14 tab dronabinol [Marinol] 2.5 mg PO BID #60 cap midodrine 5 mg PO Q8H #90 tab sennosides-docusate sodium [Senna Plus] 2 tab PO BID #120 tab vancomycin [Firvanq] 250 mg PO QID 30 Days #120 ea DS: Summary Hospital Course: The patient is a 78-year-old male with a past medical history of obstructing renal stones requiring bilateral nephrostomy tube placement who is presenting to the hospital from a long-term facility after having a fall. The patient said that he was picking up a bottle of water that was on the ground and he fell down hard on his left knee. He said he has had severe pain in that left lower extremity after the fall. He was brought to the emergency department for evaluation. The patient had imaging and was cleared to go back to the long-term facility, however, the facility refused to take him back. Case management has been trying to get the patient back to a facility but as the patient has been unable to be placed it was decided to admit the patient to observation. The patient currently complains of some pain in his left knee. He is requesting Tylenol. The patient denies any other acute issues. He states that his left nephrostomy tube seems to be leaking all of the time. He says he follows up with a urologist regularly. He states that he no longer has any diarrhea. 04-27 AWAIT PLACEMENT NEEDS TO GO TO SNF-- HAS NO MORE DAYS HAS BL NEPHROSTOMY TUBES IN PLACE AND FUNCTIONING WELL DW RN AND PT AND CASE MANAGEMENT WILL NEED [facility] NOT ABLE TO TAKE CARE OF HIMSELF AND HAS NO MORE SNF DAYS LEFT PT AND OT DAILY 04-28 HAS PSEUDOMONAS AND GROUP D ENTEROCOCCUS WILL DO CIPRO AND AMPICILLIN CONTINUE VANCO PO DC TO [facility] TODAY WITH [facility] - Time Spent with Patient Total time spent providing and/or coordinating discharge services: Greater than 30 minutes - Quality: VTE Deep Vein Thrombosis/Pulmonary Embolism Present on Admission: No Exam Vital signs: Vital Signs 04/27/18 15:54 04/27/18 20:00 04/28/18 00:00 Temperature 97.7 F 98.3 F 98.4 F Pulse Rate 88 72 81 Respiratory Rate 18 16 16 Blood Pressure 85/58 L 94/64 L 83/53 L Pulse Oximetry 99 99 98 04/28/18 04:00 04/28/18 08:00 04/28/18 12:14 Temperature 98.4 F 97.9 F 98.2 F Pulse Rate 81 70 70 Respiratory Rate 16 18 20 Blood Pressure 83/53 L 100/60 100/60 Pulse Oximetry 98 96 96 Intake & Output 04/27/18 04/28/18 04/28/18 18:59 06:59 18:59 Intake Total 0 / 0 0 / 0 1000 / 1000 Balance 0 / 0 0 / 0 1000 / 1000 Weight 62.596 kg Intake: IV 0 / 0 1000 / 1000 D5W/Normal Saline Inj 1,000 ML 0 / 0 @ 100 mls/hr IV.CONT .Q10H TRA[facility] Rx#:[id number] Oral 0 / 0 Other: # Voids 3 Date of Last Bowel Movement 04/28/18 # Incontinent Bowel Movements 4 Narrative: GENERAL: Frail, no acute distress. SKIN: Focused skin assessment warm/dry. HEAD: Atraumatic. Normocephalic. EYES: Pupils equal and round. No scleral icterus. No injection or drainage. ENT: No nasal bleeding or discharge. Mucous membranes pink and moist. NECK: Trachea midline. No JVD. CARDIOVASCULAR: Tachycardic. No murmur appreciated. RESPIRATORY: No accessory muscle use. Clear to auscultation. Breath sounds equal bilaterally. GASTROINTESTINAL: Abdomen soft, non-tender, nondistended. Hepatic and splenic margins not palpable. MUSCULOSKELETAL: Bilateral nephrostomy tubes in place. No lower extremity edema. NEUROLOGICAL: Awake and alert. No obvious cranial nerve deficits. Motor grossly within normal limits. Normal speech. HAS BILATERAL NEPHROSTOMY TUBES IN PLACE Results Procedures completed during hospitalization: NONE Completed studies during hospitalization: Laboratory Results WBC 6.2 th/mm3 (4.0-11.0) 04/27/18 04:30 RBC 3.03 mil/mm3 (4.50-5.90) L 04/27/18 04:30 Hgb 9.1 gm/dL (13.0-17.0) L 04/27/18 04:30 Hct 27.7 % (39.0-51.0) L 04/27/18 04:30 MCV 91.5 fL (80.0-100.0) 04/27/18 04:30 MCH 30.0 pg (27.0-34.0) 04/27/18 04:30 MCHC 32.8 % (32.0-36.0) 04/27/18 04:30 RDW 18.8 % (11.6-17.2) H 04/27/18 04:30 Plt Count 221 th/mm3 (150-450) 04/27/18 04:30 MPV 8.5 fL (7.0-11.0) 04/27/18 04:30 Neut % (Auto) 57.3 % (16.0-70.0) 04/27/18 04:30 Lymph % (Auto) 24.8 % (9.0-44.0) 04/27/18 04:30 [place] % (Auto) 11.3 % (0.0-8.0) H 04/27/18 04:30 Eos % (Auto) 5.8 % (0.0-4.0) H 04/27/18 04:30 Baso % (Auto) 0.8 % (0.0-2.0) 04/27/18 04:30 Neut # (Auto) 3.6 th/mm3 (1.8-7.7) 04/27/18 04:30 Lymph # (Auto) 1.5 th/mm3 (1.0-4.8) 04/27/18 04:30 [place] # (Auto) 0.7 th/mm3 (0.0-0.9) 04/27/18 04:30 Eos # (Auto) 0.4 th/mm3 (0.0-0.4) 04/27/18 04:30 Baso # (Auto) 0.0 th/mm3 (0.0-0.2) 04/27/18 04:30 WBC Differential . 04/27/18 04:30 Differential Comment Auto diff final 04/27/18 04:30 Hematology Comments 04/27/18 04:30 Sodium 141 meq/L (136-145) 04/27/18 04:30 Potassium 4.4 meq/L (3.5-5.1) 04/27/18 04:30 Chloride 107 meq/L (98-107) 04/27/18 04:30 Carbon Dioxide 25.4 meq/L (21.0-32.0) 04/27/18 04:30 Anion Gap 9 meq/L (5-15) 04/27/18 04:30 BUN 51 mg/dL (7-18) H 04/27/18 04:30 Creatinine 3.44 mg/dL (0.60-1.30) H 04/27/18 04:30 Estimated GFR 17 mL/min (>89) L 04/27/18 04:30 Random Glucose 90 mg/dL (74-106) 04/27/18 04:30 Lactic Acid 1.4 mmol/L (0.4-2.0) 04/26/18 14:40 Calcium 8.6 mg/dL (8.5-10.1) 04/27/18 04:30 Total Bilirubin 0.5 mg/dL (0.2-1.0) 04/26/18 14:40 AST 25 U/L (15-37) 04/26/18 14:40 ALT 38 U/L (12-78) 04/26/18 14:40 Alkaline Phosphatase 114 U/L (45-117) 04/26/18 14:40 Total Protein 8.1 g/dL (6.4-8.2) 04/26/18 14:40 Albumin 3.3 g/dL (3.4-5.0) L 04/26/18 14:40 Lipase 339 U/L (73-393) 04/26/18 14:40 Urine Color Yellow (Yellw/Straw) 04/26/18 14:40 Urine Clarity Cloudy (Clear) H 04/26/18 14:40 Urine pH 7.0 (5.0-8.5) 04/26/18 14:40 Ur Specific [place] 1.012 (1.002-1.035) 04/26/18 14:40 Urine Protein 100 mg/dL (Neg-Trace) H 04/26/18 14:40 Urine Glucose (UA) Negative mg/dL (Negative) 04/26/18 14:40 Urine Ketones Negative mg/dL (Negative) 04/26/18 14:40 Urine Occult Blood Large (Negative) H 04/26/18 14:40 Urine Nitrate Negative (Negative) 04/26/18 14:40 Urine Bilirubin Negative (Negative) 04/26/18 14:40 Urine Urobilinogen Less than 2 mg/dL (Less than 2) 04/26/18 14:40 Ur Leukocyte Esterase Large (Negative) H 04/26/18 14:40 Urine RBC 81 /hpf (0-3) H 04/26/18 14:40 Urine WBC 180 /hpf (0-5) H 04/26/18 14:40 Urine WBC Clumps Rare (None) H 04/26/18 14:40 Ur Squamous Epith Cells <1 /hpf (0-5) 04/26/18 14:40 Calcium Oxalate Crystal Occasional /hpf (None) H 04/26/18 14:40 Urine Bacteria Many /hpf (None) H 04/26/18 14:40 Ur Yeast w Hyphae Occasional /hpf (None) H 04/26/18 14:40 Micro UA Comment Culture indicated 04/26/18 14:40 Ur Microscopic Review Not Reportable 04/26/18 14:40 Urine Culture Comments Culture indicated 04/26/18 14:40 Impressions Femur X-Ray 04/25/18 11:23 CONCLUSION: No acute bony findings Pelvis X-Ray 04/25/18 11:35 CONCLUSION: 1. No acute pelvis abnormality is identified. 2. Severe atherosclerotic disease. Labs on day of discharge: Labs from last 24 hours 04/26/18 14:40 Urine Color Yellow Urine Clarity Cloudy H Urine pH 7.0 Ur Specific [place] 1.012 Urine Protein 100 H Urine Glucose (UA) Negative Urine Ketones Negative Urine Occult Blood Large H Urine Nitrate Negative Urine Bilirubin Negative Urine Urobilinogen Less than 2 Ur Leukocyte Esterase Large H Urine RBC 81 H Urine WBC 180 H Urine WBC Clumps Rare H Ur Squamous Epith Cells <1 Calcium Oxalate Crystal Occasional H Urine Bacteria Many H Ur Yeast w Hyphae Occasional H Micro UA Comment Culture indicated Urine Culture Comments Culture indicated Preliminary micro results at discharge 04/26/18 14:40 Urine Culture - Preliminary Clean Catch Urine Pseudomonas aeruginosa Group D Enterococcus - Impressions ITS Impressions Femur X-Ray 04/25/18 11:23 CONCLUSION: No acute bony findings Pelvis X-Ray 04/25/18 11:35 CONCLUSION: 1. No acute pelvis abnormality is identified. 2. Severe atherosclerotic disease. Discharge Plan - Discharge Disposition Patient Disposition: [facility] - Discharge Condition Condition: Good - Discharge Order Discharge Orders: Discharge Order (Routine); Ordered 04/25/18 Ordered By: Luke Martinez Hospitalist Valerie for Discharge (Routine); Ordered 04/28/18 Ordered By: David Narvaez - Discharge Details Anticipated Discharge Date: 04/28/18 Discharge Comment: DC TO [facility] - Physicians Team Primary Care Provider: UNKNOWN, Attending Provider: David Narvaez Other Providers: Indigo Lebo,Agency
[2018-04-28] MEDS: Ciprofloxacin 250 MG Tablet PO SCH (14:14)
[2018-04-28 16:21] LABS: Baso # (Auto) 0.1 th/mm3 (0.0-0.2); Baso % (Auto) 1.3 % (0.0-2.0); Eos # (Auto) 0.4 th/mm3 (0.0-0.4); Eos % (Auto) 6.2 % (0.0-4.0); Hemoglobin 9.2 gm/dL (13.0-17.0); Lymph # (Auto) 1.3 th/mm3 (1.0-4.8); Mean Corpuscular HGB Conc 32.9 % (32.0-36.0); Mean Corpuscular Hemoglobin 30.1 pg (27.0-34.0); Mean Corpuscular Volume 91.4 fL (80.0-100.0); Mean Platelet Volume 8.5 fL (7.0-11.0); Mono # (Auto) 0.6 th/mm3 (0.0-0.9); Mono % (Auto) 10.7 % (0.0-8.0); Neut # (Auto) 3.6 th/mm3 (1.8-7.7); Neut % (Auto) 59.8 % (16.0-70.0); Platelet Count 254 th/mm3 (150-450); Red Blood Count 3.07 mil/mm3 (4.50-5.90); Red Cell Distribution Width 18.1 % (11.6-17.2); White Blood Count 6.1 th/mm3 (4.0-11.0)
[2018-04-28 16:49] LABS: Phosphorus 3.9 mg/dL (2.5-4.9)
[2018-04-28 16:58] LABS: Free T4 (Free Thyroxine) 0.79 ng/dL (0.76-1.46); Thyroid Stimulating Hormone 0.811 uIU/mL (0.358-3.740)
[2018-04-28 22:09] LABS: Hemoglobin A1c 5.2 % (4.3-6.0)
[2018-04-29] MEDS: Senna/Docusate Sodium 8.6/50 MG Tablet PO SCH ×2 (10:29→22:06)
[2018-04-29] MEDS: Ciprofloxacin 250 MG Tablet PO SCH (10:29)
[2018-04-29] MEDS: DRONABINOL 2.5 MG CAPSULE PO SCH ×2 (10:29→22:05)
--- NOTE | 2018-04-29 12:12 | P.PNIM ---
Subjective Interval history: The patient is a 78-year-old male with a past medical history of obstructing renal stones requiring bilateral nephrostomy tube placement who is presenting to the hospital from a [place] [facility] after having a fall. The patient said that he was picking up a bottle of water that was on the ground and he fell down hard on his left knee. He said he has had severe pain in that left lower extremity after the fall. He was brought to the emergency department for evaluation. The patient had imaging and was cleared to go back to the [place] [facility] facility, however, the facility refused to take him back. Case management has been trying to get the patient back to a facility but as the patient has been unable to be placed it was decided to admit the patient to observation. The patient currently complains of some pain in his left knee. He is requesting Tylenol. The patient denies any other acute issues. He states that his left nephrostomy tube seems to be leaking all of the time. He says he follows up with a urologist regularly. He states that he no longer has any diarrhea. 04-27 AWAIT PLACEMENT NEEDS TO GO TO SNF-- HAS NO MORE DAYS HAS BL NEPHROSTOMY TUBES IN PLACE AND FUNCTIONING WELL DW RN AND PT AND CASE MANAGEMENT WILL NEED [facility] WITH [facility] NOT ABLE TO TAKE CARE OF HIMSELF AND HAS NO MORE SNF DAYS LEFT PT AND OT DAILY 04-28 HAS PSEUDOMONAS AND GROUP D ENTEROCOCCUS WILL DO CIPRO AND AMPICILLIN CONTINUE VANCO PO DC TO [facility] TODAY WITH [facility] 9- NOT ACCEPTED AT [facility] DR QUINONES OF ID CONSULTED DUE TO MDR UTI WILL DEFER ANTIBIOTICS TO HIM AM LABS Physical Exam Vital signs: Vital Signs 04/28/18 12:14 04/28/18 20:00 04/29/18 00:00 Temperature 98.2 F 97.7 F 98.2 F Pulse Rate 70 70 90 Respiratory Rate 20 16 16 Blood Pressure 100/60 92/57 L 99/63 L Pulse Oximetry 96 94 L 94 L 04/29/18 10:10 04/29/18 12:00 Temperature 98.2 F 97.3 F L Pulse Rate 85 73 Respiratory Rate 14 16 Blood Pressure 115/55 L 83/52 L Pulse Oximetry 98 99 Intake & Output 04/28/18 04/29/18 04/29/18 18:59 06:59 18:59 Intake Total 1000 / 1000 Output Total 450 / 450 550 / 550 Balance 550 / 550 -550 / -550 Intake: IV 1000 / 1000 Output: Urine 450 / 450 Urine Amount (Stoma) 550 / 550 Nephrostomy Tube Left 300 / 300 Nephrostomy Tube Right 250 / 250 Stool Amount (Stoma) 0 / 0 Mid Upper Abdomen 0 / 0 Other: # Incontinent Voids 3 Date of Last Bowel Movement 04/28/18 Narrative: GENERAL: Frail, no acute distress. SKIN: Focused skin assessment warm/dry. HEAD: Atraumatic. Normocephalic. EYES: Pupils equal and round. No scleral icterus. No injection or drainage. ENT: No nasal bleeding or discharge. Mucous membranes pink and moist. NECK: Trachea midline. No JVD. CARDIOVASCULAR: Tachycardic. No murmur appreciated. RESPIRATORY: No accessory muscle use. Clear to auscultation. Breath sounds equal bilaterally. GASTROINTESTINAL: Abdomen soft, non-tender, nondistended. Hepatic and splenic margins not palpable. MUSCULOSKELETAL: Bilateral nephrostomy tubes in place. No lower extremity edema. NEUROLOGICAL: Awake and alert. No obvious cranial nerve deficits. Motor grossly within normal limits. Normal speech. HAS BILATERAL NEPHROSTOMY TUBES IN PLACE Results - Labs CBC & Chem 7: 04/28/18 15:36 04/27/18 04:30 Laboratory Results - last 24 hr 04/28/18 04/28/18 04/28/18 15:36 15:36 15:36 WBC 6.1 RBC 3.07 L Hgb 9.2 L Hct 28.0 L MCV 91.4 MCH 30.1 MCHC 32.9 RDW 18.1 H Plt Count 254 MPV 8.5 Neut % (Auto) 59.8 Lymph % (Auto) 22.0 [place] % (Auto) 10.7 H Eos % (Auto) 6.2 H Baso % (Auto) 1.3 Neut # (Auto) 3.6 Lymph # (Auto) 1.3 [place] # (Auto) 0.6 Eos # (Auto) 0.4 Baso # (Auto) 0.1 WBC Differential . Differential Comment Auto diff final Hemoglobin A1c 5.2 Phosphorus 3.9 Magnesium 2.0 TSH 0.811 Free T4 0.79 Microbiology 04/26/18 14:40 Clean Catch Urine Urine Culture - Final Pseudomonas aeruginosa Multidrug Resistant Enterococcus faecium VRE - Imaging Femur X-Ray 04/25/18 11:23 CONCLUSION: No acute bony findings Pelvis X-Ray 04/25/18 11:35 CONCLUSION: 1. No acute pelvis abnormality is identified. 2. Severe atherosclerotic disease. - Procedures NONE Assessment and Plan - Assessment (1) Obstructive uropathy Code(s): N13.9 - Obstructive and reflux uropathy, unspecified Status: Chronic (2) Atrial fibrillation Code(s): I48.91 - Unspecified atrial fibrillation Status: Chronic (3) Acute on chronic kidney failure Code(s): N17.9 - Acute kidney failure, unspecified; N18.9 - Chronic kidney disease, unspecified Status: Chronic (4) Acute pyelonephritis Code(s): N10 - Acute pyelonephritis Status: Chronic (5) SANDI (acute kidney injury) Code(s): N17.9 - Acute kidney failure, unspecified Status: Chronic (6) Anemia Code(s): D64.9 - Anemia, unspecified Status: Chronic (7) Fall Code(s): W19.XXXA - Unspecified fall, initial encounter Status: Chronic - Plan Fall Pt complaining of LLE pain. Imaging negative. Cleared for discharge back to SNF , however, SNF did not accept pt back so he was admitted. -case management consult for placement. -PT/OT. -pain control as needed. Complex UTI/ Acute on chronic renal failure The pt has bilateral nephrostomy tubes for obstructing kidney stones. Recently completed course of antibiotics. Repeat UA indicative of infection but may simply be colonization. Creatinine is elevated. -follow cultures. -nephrostomy care. -IVFs. -avoid nephrotoxins. C. difficile colitis Pt not complaining of diarrhea at this time. -Continue p.o. vancomycin MDR UTI CONSULT DR QUINONES OF ID DEFER ANTIBIOTICS TO HIME Anemia Chronic. Appears to be at baseline. -follow CBC. DVT prophylaxis: Marla Discussed Condition With: RN AND PT AND CM Discharge Planning: DC ON HOLD DUE TO MDR UTI (6) Anemia Qualifiers: Anemia type: unspecified type Qualified Code(s): D64.9 - Anemia, unspecified
--- NOTE | 2018-04-29 14:00 | MB ---
cc: Tonny Ng MD DATE: 04/29/2018 REQUESTING PHYSICIAN: David Narvaez DO REASON FOR CONSULTATION: Resistant urinary tract infection, multidrug resistant Pseudomonas and VRE. HISTORY OF PRESENT ILLNESS: This is a 78-year-old white male who has history of bilateral nephrostomy tube placement. He sees the urologist approximately twice a month. The tubes have been in place since 09/2017. The patient presented to emergency department after he fell. He was evaluated on 04/25/2018 for left hip pain. He had been recently discharged from the nursing facility to home. The patient is a poor historian. He had imaging studies and was cleared to go back to the shelter facility, but the shelter facility reportedly refused to take him back. In the interim, the patient had a urine sample from the left nephrostomy tube, which had been leaking all the time, taken for culture. The culture came back showing multidrug-resistant Pseudomonas aeruginosa and also VRE Enterococcus faecium. The patient has history of Clostridium difficile also in the past. He denies chills, but tells me that he is cold all the time. He denies nausea or vomiting. He tells me that he has soft stools, but no diarrhea. He has no fever and white blood cell count is normal. Urinalysis which was taken showed 180 white cells. PAST MEDICAL HISTORY: COPD, hypertension, kidney stones, prostate cancer, renal failure, subdural hematoma, UTI, intertrochanteric left hip fracture with nail placement. ALLERGIES: NO KNOWN DRUG ALLERGIES. MEDICATIONS: 1. Cipro. 2. Ampicillin 3. Marinol. 4. Midodrine. 5. Eliquis. SOCIAL HISTORY: No tobacco, rare alcohol. No illicit drugs. FAMILY HISTORY: Noncontributory. REVIEW OF SYSTEMS: All systems have been reviewed and are negative. PHYSICAL EXAM: GENERAL: He is a frail, elderly male, who is in no acute distress. He is awake and alert and oriented. VITAL SIGNS: Temperature 97.3, BP 83/52, respirations 16, heart rate 73. HEENT: The head is atraumatic. Extraocular movements grossly intact. Pupils reactive to light. No icterus. Oropharynx moist mucosa without lesions. NECK: Supple without adenopathy. LUNGS: Clear to auscultation. HEART: Irregular rate and rhythm. No murmurs. ABDOMEN: Bowel sounds present. Soft, nontender. The patient has nephrostomy tube with both flanks. No visible erythema of the flanks. RECTAL: Not performed. EXTREMITIES: No clubbing, cyanosis or edema. SKIN: No rash. NEUROLOGIC: No gross focal finding. PSYCHIATRIC: The patient is calm and cooperative. LABORATORY DATA: WBC 6.1, platelets 254, 59% neutrophils, 22% lymphocytes. Creatinine 3.44, BUN 51, sodium 141. LFTs normal. Pelvic x-ray shows no acute pelvis abnormality identified. Femur x-ray on the left shows no acute bony finding. IMPRESSION: 1. Urinary tract infection due to multidrug-resistant Pseudomonas and vancomycin-resistant enterococci in a patient with nephrostomy tubes. 2. Acute renal failure on top of chronic kidney disease. RECOMMENDATIONS: 1. Discontinue ampicillin. 2. Discontinue ciprofloxacin. 3. Begin Zyvox for VRE. 4. Begin Avycaz for resistant Pseudomonas. 5. Add aztreonam for resistant Pseudomonas. 6. Monitor response to antibiotic treatment. 7. Continue p.o. vancomycin for prophylaxis for C. difficile since the patient has had previous Clostridium difficile. 8. Monitor repeat urine culture in 3 days. Thank you for this consultation. The patient's progress will be followed. Tonny Ng MD FFD/ct , 12:44 PM , 12:57 PM
[2018-04-29] MEDS: Ceftazidime/Avibactam Inj 0.94 GM in Sodium Chlor 0.9% Inj 50 ML IV.SIG SCH (15:27)
[2018-04-29] MEDS: Linezolid 600 MG Tablet PO SCH ×2 (16:39→22:04)
[2018-04-30] MEDS: Ceftazidime/Avibactam Inj 0.94 GM in Sodium Chlor 0.9% Inj 50 ML IV.SIG SCH ×3 (03:01→15:15)
[2018-04-30 07:12] LABS: Baso # (Auto) 0.1 th/mm3 (0.0-0.2); Baso % (Auto) 0.9 % (0.0-2.0); Eos # (Auto) 0.5 th/mm3 (0.0-0.4); Eos % (Auto) 7.6 % (0.0-4.0); Hematocrit 27.4 % (39.0-51.0); Hemoglobin 9.2 gm/dL (13.0-17.0); Lymph # (Auto) 1.5 th/mm3 (1.0-4.8); Lymph % (Auto) 24.2 % (9.0-44.0); Mean Corpuscular HGB Conc 33.6 % (32.0-36.0); Mean Corpuscular Volume 92.3 fL (80.0-100.0); Mean Platelet Volume 8.4 fL (7.0-11.0); Mono # (Auto) 0.8 th/mm3 (0.0-0.9); Mono % (Auto) 12.7 % (0.0-8.0); Neut # (Auto) 3.4 th/mm3 (1.8-7.7); Neut % (Auto) 54.6 % (16.0-70.0); Platelet Count 261 th/mm3 (150-450); Red Blood Count 2.97 mil/mm3 (4.50-5.90); Red Cell Distribution Width 18.2 % (11.6-17.2); White Blood Count 6.1 th/mm3 (4.0-11.0)
[2018-04-30 07:26] LABS: Albumin 2.9 g/dL (3.4-5.0); Anion Gap 9 meq/L (5-15); Aspartate Aminotransferase 34 U/L (15-37); Blood Urea Nitrogen 56 mg/dL (7-18); Calcium 8.7 mg/dL (8.5-10.1); Carbon Dioxide 22.6 meq/L (21.0-32.0); Chloride 105 meq/L (98-107); Glomerular Filtration Rate 20 mL/min (>89); Glucose,Random 79 mg/dL (74-106); Magnesium 1.9 mg/dL (1.5-2.5); Potassium 4.8 meq/L (3.5-5.1); Sodium 137 meq/L (136-145)
[2018-04-30 07:29] LABS: Alanine Aminotransferase 48 U/L (12-78); Alkaline Phosphatase 89 U/L (45-117)
[2018-04-30] MEDS: DRONABINOL 2.5 MG CAPSULE PO SCH ×2 (09:28→20:32)
[2018-04-30] MEDS: Senna/Docusate Sodium 8.6/50 MG Tablet PO SCH ×2 (09:29→20:33)
[2018-04-30] MEDS: Linezolid 600 MG Tablet PO SCH ×2 (09:29→20:29)
--- NOTE | 2018-04-30 12:57 | P.PN ---
Subjective Interval history: Follow-up visit urinary tract infection, VRE/MDR O, nephrostomy tubes. Patient seen and examined today. Reports he is doing okay. Denies pain and discomfort. Denies SOB/ dyspnea. Denies chest pain, palpitations, headaches, dizziness. Denies fevers, chills, n/v/d. Physical Exam Vital signs: Vital Signs 04/29/18 16:56 04/29/18 19:23 04/29/18 23:00 Temperature 97.6 F 97.5 F L 97.5 F L Pulse Rate 75 81 53 L Respiratory Rate 16 16 16 Blood Pressure 100/63 94/64 L 96/60 L Pulse Oximetry 100 100 04/30/18 03:53 04/30/18 04:08 04/30/18 08:00 Temperature 97.5 F L 97.5 F L Pulse Rate 106 H 50 L 70 Respiratory Rate 16 14 Blood Pressure 81/52 L 103/67 Pulse Oximetry 100 100 04/30/18 11:57 Temperature 97.5 F L Pulse Rate 67 Respiratory Rate 16 Blood Pressure 94/56 L Pulse Oximetry 100 Intake & Output 04/29/18 04/30/18 04/30/18 18:59 06:59 18:59 Intake Total 150 / 150 50 / 50 Output Total 350 / 350 350 / 350 Balance -200 / -200 -350 / -350 50 / 50 Intake: IV 150 / 150 50 / 50 Azactam Inj 1,000 MG In NS Inj 100 / 100 100 ML @ 200 mls/hr IV.SIG Q24H [facility] Rx#:[id number] Avycaz Inj 0.94 GM In NS Inj 50 50 / 50 50 / 50 ML @ 25 mls/hr IV.SIG Q12H [facility] Rx#:[id number] Output: Urine 350 / 350 100 / 100 Urine Amount (Stoma) 250 / 250 Nephrostomy Tube Left 200 / 200 Nephrostomy Tube Right 50 / 50 Other: Date of Last Bowel Movement 04/29/18 Narrative: GENERAL: This is a well-nourished, well-developed patient, in no apparent distress. SKIN: Warm and dry HEENT: Normocephalic. Pupils equal round and reactive. Nose without bleeding. Airway patent. NECK: Trachea midline. Supple. CARDIOVASCULAR: Regular rate and rhythm without murmurs, gallops, or rubs. RESPIRATORY: Clear to auscultation. Breath sounds equal bilaterally. No wheezes , rales, or rhonchi. GASTROINTESTINAL: Abdomen soft, non-tender, nondistended. Bowel Sounds normoactive x4. : Bilateral nephrostomy tubes in place, LT draining cloudy colored urine, RT min drainage cloudy. RLQ ostomy draining yellow drain MUSCULOSKELETAL: Extremities without clubbing, cyanosis, or edema. NEUROLOGICAL: Awake and alert. No focal neuro deficit. Moves all extremities. Normal speech. Results - Labs CBC & Chem 7: 04/30/18 05:58 05/01/18 05:22 Laboratory Results - last 24 hr 04/30/18 04/30/18 05:58 05:58 WBC 6.1 RBC 2.97 L Hgb 9.2 L Hct 27.4 L MCV 92.3 MCH 31.0 MCHC 33.6 RDW 18.2 H Plt Count 261 MPV 8.4 Neut % (Auto) 54.6 Lymph % (Auto) 24.2 [place] % (Auto) 12.7 H Eos % (Auto) 7.6 H Baso % (Auto) 0.9 Neut # (Auto) 3.4 Lymph # (Auto) 1.5 [place] # (Auto) 0.8 Eos # (Auto) 0.5 H Baso # (Auto) 0.1 WBC Differential . Differential Comment Auto diff final Sodium 137 Potassium 4.8 Chloride 105 Carbon Dioxide 22.6 Anion Gap 9 BUN 56 H Creatinine 3.07 H Estimated GFR 20 L Random Glucose 79 Calcium 8.7 Phosphorus 4.0 Magnesium 1.9 Total Bilirubin 0.3 AST 34 ALT 48 Alkaline Phosphatase 89 Total Protein 7.0 D Albumin 2.9 L - Procedures NONE Assessment and Plan - Assessment (1) Obstructive uropathy Code(s): N13.9 - Obstructive and reflux uropathy, unspecified Status: Chronic (2) Atrial fibrillation Code(s): I48.91 - Unspecified atrial fibrillation Status: Chronic (3) Acute on chronic kidney failure Code(s): N17.9 - Acute kidney failure, unspecified; N18.9 - Chronic kidney disease, unspecified Status: Chronic (4) Acute pyelonephritis Code(s): N10 - Acute pyelonephritis Status: Chronic (5) SANDI (acute kidney injury) Code(s): N17.9 - Acute kidney failure, unspecified Status: Chronic (6) Anemia Code(s): D64.9 - Anemia, unspecified Status: Chronic (7) Fall Code(s): W19.XXXA - Unspecified fall, initial encounter Status: Chronic - Plan Patient is a 78-year-old male with a past medical history of obstructing renal stones requiring bilateral nephrostomy tube placement who is presenting to the hospital from a long-term facility after having a fall Fall Pt complaining of LLE pain. Imaging negative. Cleared for discharge back to SNF , however, SNF did not accept pt back so he was admitted. -case management consult for placement. -PT/OT -Pain control as needed, with bowel regimen Complex UTI/ Acute on chronic renal failure The pt has bilateral nephrostomy tubes for obstructing kidney stones. Recently completed course of antibiotics. -Repeat UA indicative of infection. -Creatinine is elevated, if continues to be elevated, will consult nephrology for recommendations -Cultures MDRO/ VRE -Consulted infectious disease, appreciate recommendation. Started patient on Zyvox, Aztreonam, Avycaz -Nephrostomy care -IVFs for hydration -Avoid nephrotoxins -Monitor Renal indicis. C. difficile colitis Pt not complaining of diarrhea at this time. -Continue p.o. vancomycin Anemia Chronic. Appears to be at baseline. -Stable CBC. DVT prophylaxis: Eliquis Code Status: Full Code Discussed Condition With: Patient, nurse Discharge Planning: Plan to DC home with home health care if clinically improved. Patient has no SNF days. He can be DC'd on SNF if he pays for the service. (6) Anemia Qualifiers: Anemia type: unspecified type Qualified Code(s): D64.9 - Anemia, unspecified
[2018-04-30] MEDS: Sod Chloride 0.9% Inj 1,000 ML IV.CONT SCH (17:09)
[2018-05-01] MEDS: Sod Chloride 0.9% Inj 1,000 ML IV.CONT SCH ×3 (03:27→20:57)
[2018-05-01] MEDS: Ceftazidime/Avibactam Inj 0.94 GM in Sodium Chlor 0.9% Inj 50 ML IV.SIG SCH ×2 (03:43→16:42)
[2018-05-01 06:53] LABS: Calcium 8.4 mg/dL (8.5-10.1); Carbon Dioxide 22.6 meq/L (21.0-32.0); Potassium 4.4 meq/L (3.5-5.1)
--- NOTE | 2018-05-01 11:56 | P.PN ---
Subjective Interval history: Follow-up visit urinary tract infection, VRE/MDR O, nephrostomy tubes. Patient seen and examined today. Reports he is doing okay. Denies pain and discomfort. Denies SOB/ dyspnea. Denies chest pain, palpitations, headaches, dizziness. Denies fevers, chills, n/v/d. Per nursing right nephrostomy tube is not draining. Reported to have leak last night and bag was changed. Physical Exam Vital signs: Vital Signs 04/30/18 11:57 04/30/18 16:21 04/30/18 19:50 Temperature 97.5 F L 97.4 F L 97.5 F L Pulse Rate 67 75 67 Respiratory Rate 16 16 16 Blood Pressure 94/56 L 98/51 L 109/70 Pulse Oximetry 100 99 100 05/01/18 00:00 05/01/18 04:00 05/01/18 08:00 Temperature 97.8 F 97.5 F L 97.5 F L Pulse Rate 82 67 75 Respiratory Rate 17 17 18 Blood Pressure 84/52 L 79/52 L Pulse Oximetry 98 100 99 Intake & Output 04/30/18 05/01/18 05/01/18 18:59 06:59 18:59 Intake Total 200 / 200 1050 / 1050 Output Total 200 / 200 635 / 635 Balance 0 / 0 415 / 415 Intake: IV 200 / 200 1050 / 1050 NS Inj 1,000 ML @ 100 mls/hr IV 1000 / 1000 .CONT .Q10H [facility] Rx#:[id number] Azactam Inj 1,000 MG In NS Inj 100 / 100 100 ML @ 200 mls/hr IV.SIG Q24H [facility] Rx#:[id number] Avycaz Inj 0.94 GM In NS Inj 50 100 / 100 50 / 50 ML @ 25 mls/hr IV.SIG Q12H [facility] Rx#:[id number] Output: Urine 200 / 200 Urine Amount (Stoma) 635 / 635 Ileal Conduit Right 275 / 275 Nephrostomy Tube Left 360 / 360 Other: Date of Last Bowel Movement 04/30/18 04/30/18 # Bowel Movements 1 # Incontinent Bowel Movements 1 Narrative: GENERAL: This is a well-nourished, well-developed patient, in no apparent distress. SKIN: Warm and dry HEENT: Normocephalic. Pupils equal round and reactive. Nose without bleeding. Airway patent. NECK: Trachea midline. Supple. CARDIOVASCULAR: Regular rate and rhythm without murmurs, gallops, or rubs. RESPIRATORY: Clear to auscultation. Breath sounds equal bilaterally. No wheezes , rales, or rhonchi. GASTROINTESTINAL: Abdomen soft, non-tender, nondistended. Bowel Sounds normoactive x4. : Bilateral nephrostomy tubes in place, LT draining cloudy colored urine, RT min drainage cloudy. RLQ ostomy draining yellow drain MUSCULOSKELETAL: Extremities without clubbing, cyanosis, or edema. NEUROLOGICAL: Awake and alert. No focal neuro deficit. Moves all extremities. Normal speech. Results - Labs CBC & Chem 7: 04/30/18 05:58 05/01/18 05:22 Laboratory Results - last 24 hr 05/01/18 05:22 Sodium 140 Potassium 4.4 Chloride 108 H Carbon Dioxide 22.6 Anion Gap 9 BUN 53 H Creatinine 2.88 H Estimated GFR 21 L Random Glucose 77 Calcium 8.4 L - Procedures NONE Assessment and Plan - Assessment (1) Obstructive uropathy Code(s): N13.9 - Obstructive and reflux uropathy, unspecified Status: Chronic (2) Atrial fibrillation Code(s): I48.91 - Unspecified atrial fibrillation Status: Chronic (3) Acute on chronic kidney failure Code(s): N17.9 - Acute kidney failure, unspecified; N18.9 - Chronic kidney disease, unspecified Status: Chronic (4) Acute pyelonephritis Code(s): N10 - Acute pyelonephritis Status: Chronic (5) SANDI (acute kidney injury) Code(s): N17.9 - Acute kidney failure, unspecified Status: Chronic (6) Anemia Code(s): D64.9 - Anemia, unspecified Status: Chronic (7) Fall Code(s): W19.XXXA - Unspecified fall, initial encounter Status: Chronic - Plan Patient is a 78-year-old male with a past medical history of obstructing renal stones requiring bilateral nephrostomy tube placement who is [facility] after having a fall Fall Pt complaining of LLE pain. Imaging negative. Cleared for discharge back to SNF , however, SNF did not accept pt back so he was admitted. -case management consult for placement. -PT/OT -Pain control as needed, with bowel regimen Complex UTI The pt has bilateral nephrostomy tubes for obstructing kidney stones. Recently completed course of antibiotics. -Repeat UA indicative of infection. -Cultures MDRO/ VRE -Consulted infectious disease, appreciate recommendations. on Zyvox, Aztreonam, Avycaz -Nephrostomy care, Patient also has ostomy RT quadrant, this has been placed years ago secondary to bladder cancer. Right nephrostomy tube is not draining but the ostomy to noted to have more draining of yellow drainage appears to be urine. IR for nephrostomy exchange is requested for possible malfunction or clot. SANDI, on chronic kidney disease -IVF for hydration -Avoid nephrotoxins -Monitor renal indicis -[employer] improving C. difficile colitis Pt not complaining of diarrhea at this time. -Continue p.o. vancomycin Anemia Chronic. Appears to be at baseline. -Stable CBC. DVT prophylaxis: Eliquis Code Status: Full Code Discussed Condition With: Patient, nursing, Mariam Discharge Planning: Patient has no SNF days. CM working with patient possible private payment. DC home with [facility] vs SNF (6) Anemia Qualifiers: Anemia type: unspecified type Qualified Code(s): D64.9 - Anemia, unspecified
[2018-05-01] MEDS: Linezolid 600 MG Tablet PO SCH ×2 (12:00→20:59)
[2018-05-01] MEDS: DRONABINOL 2.5 MG CAPSULE PO SCH ×2 (12:02→23:13)
[2018-05-01] MEDS: Senna/Docusate Sodium 8.6/50 MG Tablet PO SCH ×2 (12:02→20:58)
[2018-05-02] MEDS: Ceftazidime/Avibactam Inj 0.94 GM in Sodium Chlor 0.9% Inj 50 ML IV.SIG SCH ×2 (03:21→14:41)
[2018-05-02] MEDS: Sod Chloride 0.9% Inj 1,000 ML IV.CONT SCH ×3 (05:39→15:20)
[2018-05-02 07:36] LABS: Calcium 8.5 mg/dL (8.5-10.1); Carbon Dioxide 20.4 meq/L (21.0-32.0)
[2018-05-02] MEDS: Linezolid 600 MG Tablet PO SCH ×2 (09:08→23:38)
[2018-05-02] MEDS: Senna/Docusate Sodium 8.6/50 MG Tablet PO SCH ×2 (09:11→23:39)
[2018-05-02] MEDS: DRONABINOL 2.5 MG CAPSULE PO SCH ×2 (09:56→21:00)
--- NOTE | 2018-05-02 11:35 | P.PN ---
Subjective Interval history: Follow-up visit urinary tract infection, VRE/MDR O, nephrostomy tubes. Patient seen and examined this morning in bed. Denies any fevers, chills, nausea, vomiting, diarrhea, shortness of breath, chest pain, back pain, dizziness or lightheadedness. Will be going to IR for exchange of right nephrostomy tube. Nurse is requesting wound care consult due to coccyx wound, erythema. Physical Exam Vital signs: Vital Signs 05/01/18 12:00 05/01/18 16:00 05/01/18 20:00 Temperature 97.6 F 97.6 F Pulse Rate 75 82 Respiratory Rate 17 16 Blood Pressure 100/82 97/63 L 111/59 L Pulse Oximetry 99 100 05/02/18 00:00 05/02/18 04:00 05/02/18 08:00 Temperature 97.6 F 97.4 F L 97.4 F L Pulse Rate 77 67 73 Respiratory Rate 17 16 17 Blood Pressure 125/67 116/59 L 98/56 L Pulse Oximetry 95 97 99 Intake & Output 05/01/18 05/02/18 05/02/18 18:59 06:59 18:59 Intake Total 1847 / 1847 1903 / 1903 50 / 50 Output Total 750 / 750 Balance 1097 / 1097 1903 / 1903 50 / 50 Weight 64 kg Intake: IV 1487 / 1487 1663 / 1663 50 / 50 NS Inj 1,000 ML @ 100 mls/hr IV 1337 / 1337 1663 / 1663 .CONT .Q10H [facility] Rx#:[id number] Azactam Inj 1,000 MG In NS Inj 100 / 100 100 ML @ 200 mls/hr IV.SIG Q24H [facility] Rx#:[id number] Avycaz Inj 0.94 GM In NS Inj 50 50 / 50 50 / 50 ML @ 25 mls/hr IV.SIG Q12H [facility] Rx#:[id number] Oral 360 / 360 240 / 240 Output: Urine Amount (Stoma) 750 / 750 Ileal Conduit Right 450 / 450 Nephrostomy Tube Left 300 / 300 Nephrostomy Tube Right 0 / 0 Other: Date of Last Bowel Movement 05/01/18 # Bowel Movements 1 1 Narrative: GENERAL: This is a well-nourished, well-developed patient, in no apparent distress. SKIN: Warm and dry HEENT: Normocephalic. Pupils equal round and reactive. Nose without bleeding. Airway patent. NECK: Trachea midline. Supple. CARDIOVASCULAR: Regular rate and rhythm without murmurs, gallops, or rubs. RESPIRATORY: Clear to auscultation. Breath sounds equal bilaterally. No wheezes , rales, or rhonchi. GASTROINTESTINAL: Abdomen soft, non-tender, nondistended. Bowel Sounds normoactive x4. : Bilateral nephrostomy tubes in place, LT draining clear yellow urine, RT with no drainage, dressing with dry drainage underneath noted. RLQ ostomy draining yellow drain MUSCULOSKELETAL: Extremities without clubbing, cyanosis, or edema. NEUROLOGICAL: Awake and alert. No focal neuro deficit. Moves all extremities. Normal speech. Results - Labs CBC & Chem 7: 04/30/18 05:58 05/02/18 05:38 Laboratory Results - last 24 hr 05/02/18 05:38 Sodium 141 Potassium 5.0 Chloride 110 H Carbon Dioxide 20.4 L Anion Gap 11 BUN 52 H Creatinine 2.69 H Estimated GFR 23 L Random Glucose 77 Calcium 8.5 - Procedures NONE Assessment and Plan - Assessment (1) Obstructive uropathy Code(s): N13.9 - Obstructive and reflux uropathy, unspecified Status: Chronic (2) Atrial fibrillation Code(s): I48.91 - Unspecified atrial fibrillation Status: Chronic (3) Acute on chronic kidney failure Code(s): N17.9 - Acute kidney failure, unspecified; N18.9 - Chronic kidney disease, unspecified Status: Chronic (4) Acute pyelonephritis Code(s): N10 - Acute pyelonephritis Status: Chronic (5) SANDI (acute kidney injury) Code(s): N17.9 - Acute kidney failure, unspecified Status: Chronic (6) Anemia Code(s): D64.9 - Anemia, unspecified Status: Chronic (7) Fall Code(s): W19.XXXA - Unspecified fall, initial encounter Status: Chronic - Plan Patient is a 78-year-old male with a past medical history of obstructing renal stones requiring bilateral nephrostomy tube placement who is presenting to the hospital from a [place] [facility] after having a fall Fall Pt complaining of LLE pain. Imaging negative. Cleared for discharge back to SNF , however, SNF did not accept pt back so he was admitted. -case management consult for placement. -PT/OT -Pain control as needed, with bowel regimen Complex UTI The pt has bilateral nephrostomy tubes for obstructing kidney stones. Recently completed course of antibiotics. -Repeat UA indicative of infection. -Cultures MDRO/ VRE. -Consulted infectious disease, appreciate recommendations. ID recommends continuing Zyvox for VRE, Avycaz and is act him for resistant Pseudomonas. Plans for repeat UA today, continue p.o. vancomycin for prophylaxis of C. difficile -Nephrostomy care, Patient also has ostomy RT quadrant, this has been placed years ago secondary to bladder cancer. Right nephrostomy tube is not draining but the ostomy to noted to have more draining of yellow drainage appears to be urine. IR for nephrostomy exchange to be done today for possible malfunction or clot. SANDI, on chronic kidney disease -IVF for hydration -Avoid nephrotoxins -Renal function with slight improvement -Continue to monitor C. difficile colitis Pt not complaining of diarrhea at this time. -Continue p.o. vancomycin Anemia Chronic. Appears to be at baseline. -Stable CBC. DVT prophylaxis: Eliquis Discussed Condition With: Discussed with patient, RN, Dr. Ng. Discharge Planning: Pending case management arrangements for discharge, ID clearance. (6) Anemia Qualifiers: Anemia type: unspecified type Qualified Code(s): D64.9 - Anemia, unspecified
--- NOTE | 2018-05-02 14:23 | P.PNID ---
Subjective Remarks: Patient in no distress. Watching TV. No complaints. Afebrile. No chills. R nephrostomy noted to no be functioning. This is a 78-year-old white male who has history of bilateral nephrostomy tube placement. He sees the urologist approximately twice a month. The tubes have been in place since 09/2017. The patient presented to emergency department after he fell. He was evaluated on 04/25/2018 for left hip pain. Patient had a urine sample from the left nephrostomy tube. The culture came back showing multidrug-resistant Pseudomonas aeruginosa and also VRE Enterococcus faecium. Past Medical History: PAST MEDICAL HISTORY: COPD, hypertension, kidney stones, prostate cancer, renal failure, subdural hematoma, UTI, intertrochanteric left hip fracture with nail placement. Allergies/Adverse Reactions: Allergies crab Allergy (Intermediate, Verified 04/12/18 18:03) Rash Blue Shell crab causes severe rash all over face and neck. Needs PCN to help clear it up. Patient CAN eat Shrimp and clams, scallops, oysters without problems. Objective Vital Signs 05/01/18 16:00 05/01/18 20:00 05/02/18 00:00 Temperature 97.6 F 97.6 F 97.6 F Pulse Rate 75 82 77 Respiratory Rate 17 16 17 Blood Pressure 97/63 L 111/59 L 125/67 Pulse Oximetry 99 100 95 05/02/18 04:00 05/02/18 08:00 05/02/18 12:00 Temperature 97.4 F L 97.4 F L 98.5 F Pulse Rate 67 73 65 Respiratory Rate 16 17 17 Blood Pressure 116/59 L 98/56 L 99/59 L Pulse Oximetry 97 99 99 Intake & Output 05/01/18 05/02/18 05/02/18 18:59 06:59 18:59 Intake Total 1847 / 1847 1903 / 1903 150 / 150 Output Total 750 / 750 Balance 1097 / 1097 1903 / 1903 150 / 150 Weight 64 kg Intake: IV 1487 / 1487 1663 / 1663 150 / 150 NS Inj 1,000 ML @ 100 mls/hr IV 1337 / 1337 1663 / 1663 .CONT .Q10H [facility] Rx#:[id number] Azactam Inj 1,000 MG In NS Inj 100 / 100 100 / 100 100 ML @ 200 mls/hr IV.SIG Q24H [facility] Rx#:[id number] Avycaz Inj 0.94 GM In NS Inj 50 50 / 50 50 / 50 ML @ 25 mls/hr IV.SIG Q12H [facility] Rx#:[id number] Oral 360 / 360 240 / 240 Output: Urine Amount (Stoma) 750 / 750 Ileal Conduit Right 450 / 450 Nephrostomy Tube Left 300 / 300 Nephrostomy Tube Right 0 / 0 Other: Date of Last Bowel Movement 05/01/18 # Bowel Movements 1 1 Lab - Chemistry Results 05/01/18 05/02/18 05:22 05:38 Sodium 140 141 Potassium 4.4 5.0 Chloride 108 H 110 H Carbon Dioxide 22.6 20.4 L Anion Gap 9 11 BUN 53 H 52 H Creatinine 2.88 H 2.69 H Estimated GFR 21 L 23 L Random Glucose 77 77 Calcium 8.4 L 8.5 Imaging: ITS Impressions Femur X-Ray 04/25/18 11:23 CONCLUSION: No acute bony findings Pelvis X-Ray 04/25/18 11:35 CONCLUSION: 1. No acute pelvis abnormality is identified. 2. Severe atherosclerotic disease. Physical Exam: PHYSICAL EXAM: GENERAL: No acute distress. He is awake and alert and oriented. HEENT: The head is atraumatic. Extraocular movements grossly intact. Pupils reactive to light. No icterus. Oropharynx moist mucosa without lesions. NECK: Supple without adenopathy. LUNGS: Clear to auscultation. HEART: Irregular rate and rhythm. No murmurs. ABDOMEN: Bowel sounds present. Soft, nontender. The patient has nephrostomy tube with both flanks. No visible erythema of the flanks. EXTREMITIES: No clubbing, cyanosis or edema. SKIN: No rash. NEUROLOGIC: No gross focal finding. PSYCHIATRIC: Calm and cooperative. Assessment and Plan - Plan IMPRESSION: 1. Urinary tract infection due to multidrug-resistant Pseudomonas and vancomycin-resistant enterococci in a patient with nephrostomy tubes. 2. Acute renal failure on top of chronic kidney disease. RECOMMENDATIONS: 1. Continue Zyvox for VRE. 2. Continue Avycaz for resistant Pseudomonas. 3. Continue Aztreonam for resistant Pseudomonas. 4. Repeat urine culture. Ordered. 5. Continue p.o. vancomycin for prophylaxis for C. difficile since the patient has had previous Clostridium difficile.
--- NOTE | 2018-05-02 16:26 | P.PNWCN ---
Wound Care Nurse Consult Additional information: Patient was not seen today, Spoke with Anahi Gallardo regarding coccyx wound, per RN, patient has blanchable erythema to peeling skin that is still intact. RN is applying Calazime skin protectant paste which is appropriate.
[2018-05-02 18:39] LABS: INR 1.1 Ratio
[2018-05-03] MEDS: Sod Chloride 0.9% Inj 1,000 ML IV.CONT SCH ×4 (02:52→22:10)
[2018-05-03] MEDS: Ceftazidime/Avibactam Inj 0.94 GM in Sodium Chlor 0.9% Inj 50 ML IV.SIG SCH ×2 (02:52→15:28)
[2018-05-03] MEDS ORDERED: fentaNYL Citrate Inj 250 MCG/5 ML Ampul ONE (09:18)
[2018-05-03] MEDS ORDERED: Levofloxacin 500 mg Premix Inj 500 MG/100 ML PIGGYBACK IV.SIG ONE (09:18)
[2018-05-03 10:28] LABS: Calcium 8.4 mg/dL (8.5-10.1); Carbon Dioxide 22.1 meq/L (21.0-32.0); Potassium 4.5 meq/L (3.5-5.1)
[2018-05-03] MEDS ORDERED: Iohexol 350 MG/ML 50 ML Vial (for Rad Diag) IVCONTRAST ONE (10:35)
--- NOTE | 2018-05-03 10:39 | P.RAD ---
Post Procedure Progress Note - Pre Procedure Diagnosis (1) Obstructed nephrostomy tube - Post Procedure Diagnosis (1) Obstructed nephrostomy tube - Procedure Information Procedure Date: 05/03/18 Supervising Radiologist: Krishna Castro MD Estimated blood loss (mL): 0 Anesthesia: Local, Analgesia - Plan of Activity Patient to Unit: Nursing Unit Patient Condition: Good See PACS Report for procedural detail/treatment. Drainage Procedure Findings: Tube pulled back slightly into LP calyx but still in collecting system. Ureter appears to be patent down to ileal conduit (probably why tube doesn't drain much ). A few filling defects in collecting system characteristic of stone disease. Tube exchanged and repositioned.
[2018-05-03] MEDS: Linezolid 600 MG Tablet PO SCH (11:12)
[2018-05-03] MEDS: DRONABINOL 2.5 MG CAPSULE PO SCH ×2 (11:12→22:08)
[2018-05-03] MEDS: Senna/Docusate Sodium 8.6/50 MG Tablet PO SCH ×2 (11:12→22:08)
--- NOTE | 2018-05-03 12:21 | P.PN ---
Subjective Interval history: Follow-up visit urinary tract infection, VRE/MDR O, nephrostomy tubes. Patient is seen and examined resting in bed comfortably after having right nephrostomy tube exchanged. He denies any pain or discomfort, denies any nausea, vomiting, fevers, chills, cough or shortness of breath. He is requesting something to eat. Physical Exam Vital signs: Vital Signs 05/02/18 16:00 05/02/18 20:00 05/03/18 00:00 Temperature 97.6 F 97.2 F L 97.9 F Pulse Rate 69 62 78 Respiratory Rate 17 17 17 Blood Pressure 123/68 128/67 104/58 L Pulse Oximetry 99 100 98 05/03/18 08:00 Temperature 98.3 F Pulse Rate 88 Respiratory Rate 16 Blood Pressure 112/61 Pulse Oximetry 95 Intake & Output 05/02/18 05/03/18 05/03/18 18:59 06:59 18:59 Intake Total 1200 / 1200 1850 / 1850 100 / 100 Output Total 675 / 675 650 / 650 Balance 525 / 525 1200 / 1200 100 / 100 Weight 67.8 kg Intake: IV 1200 / 1200 1050 / 1050 100 / 100 NS Inj 1,000 ML @ 100 mls/hr IV 1000 / 1000 1000 / 1000 .CONT .Q10H [facility] Rx#:[id number] Azactam Inj 1,000 MG In NS Inj 100 / 100 100 ML @ 200 mls/hr IV.SIG Q24H [facility] Rx#:[id number] Avycaz Inj 0.94 GM In NS Inj 50 100 / 100 50 / 50 ML @ 25 mls/hr IV.SIG Q12H [facility] Rx#:[id number] Levaquin 500 mg Premix Inj 500 100 / 100 mg In 100 ml @ 0 mls/hr IV.SIG .[facility] Rx#:[id number] Oral 800 / 800 Output: Urine Amount (Stoma) 675 / 675 650 / 650 Ileal Conduit Right 100 / 100 Nephrostomy Tube Left 525 / 525 300 / 300 Nephrostomy Tube Right 150 / 150 250 / 250 Other: # Bowel Movements 1 Narrative: GENERAL: This is a well-nourished, well-developed patient, in no apparent distress. SKIN: Warm and dry HEENT: Normocephalic. Pupils equal round and reactive. Nose without bleeding. Airway patent. NECK: Trachea midline. Supple. CARDIOVASCULAR: Regular rate and rhythm without murmurs, gallops, or rubs. RESPIRATORY: Clear to auscultation. Breath sounds equal bilaterally. No wheezes , rales, or rhonchi. GASTROINTESTINAL: Abdomen soft, non-tender, nondistended. Bowel Sounds normoactive x4. : Bilateral nephrostomy tubes in place, LT draining clear yellow urine, RT yellow and pink tinged urine. RLQ ostomy draining yellow drainage. MUSCULOSKELETAL: Extremities without clubbing, cyanosis, or edema. NEUROLOGICAL: Awake and alert. No focal neuro deficit. Moves all extremities. Normal speech. Results - Labs CBC & Chem 7: 04/30/18 05:58 05/03/18 08:00 Laboratory Results - last 24 hr 05/02/18 05/02/18 05/03/18 15:09 15:09 08:00 PT 11.0 INR 1.1 APTT 32.9 H Sodium 144 Potassium 4.5 Chloride 112 H Carbon Dioxide 22.1 Anion Gap 10 BUN 37 H Creatinine 2.51 H Estimated GFR 25 L Random Glucose 72 L Calcium 8.4 L - Procedures NONE Assessment and Plan - Assessment (1) Obstructive uropathy Code(s): N13.9 - Obstructive and reflux uropathy, unspecified Status: Chronic (2) Atrial fibrillation Code(s): I48.91 - Unspecified atrial fibrillation Status: Chronic (3) Acute on chronic kidney failure Code(s): N17.9 - Acute kidney failure, unspecified; N18.9 - Chronic kidney disease, unspecified Status: Chronic (4) Acute pyelonephritis Code(s): N10 - Acute pyelonephritis Status: Chronic (5) SANDI (acute kidney injury) Code(s): N17.9 - Acute kidney failure, unspecified Status: Chronic (6) Anemia Code(s): D64.9 - Anemia, unspecified Status: Chronic (7) Fall Code(s): W19.XXXA - Unspecified fall, initial encounter Status: Chronic - Plan Patient is a 78-year-old male with a past medical history of obstructing renal stones requiring bilateral nephrostomy tube placement who is presenting to the hospital from a care home facility after having a fall Fall Pt complaining of LLE pain. Imaging negative. Cleared for discharge back to SNF , however, SNF did not accept pt back so he was admitted. -case management consult for placement. -PT/OT -Pain control as needed, with bowel regimen Complex UTI The pt has bilateral nephrostomy tubes for obstructing kidney stones. Recently completed course of antibiotics. -Repeat UA indicative of infection. -Cultures MDRO/ VRE. -Consulted infectious disease, appreciate recommendations. ID recommends continuing Zyvox for VRE, Avycaz and is act him for resistant Pseudomonas. -Repeat UA growing yeast, discussed with infectious disease, okay to discontinue antibiotics. -Continue p.o. vancomycin for prophylaxis of C. difficile -Right nephrostomy tube exchanged. Radiologist spoke with Yann HUTCHINSON, nephrostomy tube exchanges, however urine is still draining to ileostomy conduit. 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 -IR report findings: Tube pulled back slightly into LP calyx but still in collecting system. Ureter appears to be patent down to ileal conduit (probably why tube doesn't drain much). A few filling defects in collecting system characteristic of stone disease. Tube exchanged and repositioned. SANDI, on chronic kidney disease -IVF for hydration -Avoid nephrotoxins -Renal function with slight improvement -Continue to monitor C. difficile colitis Pt not complaining of diarrhea at this time. -Continue p.o. vancomycin Anemia Chronic. Appears to be at baseline. -Stable CBC. DVT prophylaxis: Marla Discussed Condition With: Patient, RN, and Discharge Planning: Pending case management arrangements for discharge, ID clearance. (6) Anemia Qualifiers: Anemia type: unspecified type Qualified Code(s): D64.9 - Anemia, unspecified
--- NOTE | 2018-05-03 13:35 | IR ---
EXAM DATE: 05/03/2018 10:51 AM EDT AGE/SEX: 78 years / Male INDICATIONS: Patient presents with non draining nephrostomy tube in need of evaluation with possible exchange. CLINICAL DATA: This is the patient's subsequent encounter. Patient reports that signs and symptoms h ave been present for 3 days and indicates a pain score of 0/10. MEDICAL/SURGICAL HISTORY: . Hypertension, Chronic Obstructive Pulmonary Disease, Renal failure, Kidney stones, Prostate cancer. . Bilateral nephrostomy tubes. COMPARISON: [facility], NEPHROSTOMY TUBE EXCHANGE LT, 04/13/2018. . FLUORO TIME (min): 5.22 IMAGE SERIES: 6 CONTRAST (cc): 25 cc Omnipaque (iohexol) 350 MEDICATION(S): 50 mcg fentanyl (Sublimaze) IV 500 mg levofloxacin (Levaquin) IV DEVICE(S): 8 Portuguese 25cm Expel drainage catheter . . PROCEDURE: 1. Antegrade pyelogram. 2. Nephrostomy tube exchange. The risks, benefits and alternatives to the procedure were explained and verbal and written consent w as obtained. The site was prepped in sterile fashion. Full sterile technique was used, including ca p, mask, sterile gloves and gown and a large sterile sheet. Hand hygiene and 2% chlorhexidine and/or betadine/alcohol prep was utilized per protocol for cutaneous antisepsis. The skin and subcutaneous tissues were infiltrated with local anesthetic solution. With fluoroscopic guidance antegrade pyelo gram was performed. Existing tube was injected with positive contrast. This demonstrated the cope loop to be pulled back into a lower pole calyx. A number of filling defects are identified in the renal pelvis characteristi c of renal calculi. However, contrast flowed freely through the unobstructed ureter down into the ile al conduit. This may explain why there is minimal output from the existing tube. The hub on the existing tube was excised and the catheter accessed with an 035 Glidewire. A new 8 Paolo nch catheter was advanced over the wire with the cobra positioned in the central portion of the renal pelvis. Catheter was secured to the skin surface with 2-0 silk suture. Again, contrast injection antonio wed free flow down to the ileal conduit with mobile renal calculi in the renal pelvis. EKG and oximetry remained stable throughout the procedure. The patient tolerated the procedure well and there were no complications. The patient was sent to post anesthesia recovery in stable condit ion. CONCLUSION: 1. Uncomplicated nephrostomy tube exchange as above. Existing catheter was pulled back into the lowe r pole calyx. 2. Multiple filling defects characteristic of renal calculi. These appear to be nonobstructing as co ntrast flows freely through the renal pelvis, down the ureter and into the ileal conduit. This may ex plain the minimal output from the nephrostomy tube. Electronically signed by: Krishna Castro MD 05/03/2018 1:34 PM EDT
[2018-05-04] MEDS: Sod Chloride 0.9% Inj 1,000 ML IV.CONT SCH ×2 (09:06→18:18)
[2018-05-04] MEDS: DRONABINOL 2.5 MG CAPSULE PO SCH ×2 (09:06→21:44)
[2018-05-04] MEDS: Senna/Docusate Sodium 8.6/50 MG Tablet PO SCH ×2 (09:07→21:41)
--- NOTE | 2018-05-04 10:33 | P.PN ---
Subjective Interval history: Follow-up visit urinary tract infection, VRE/MDR O, nephrostomy tubes. Patient is seen and examined resting in bed in no acute distress. He is requesting to go home, we discussed the fact that physical therapy recommends rehab since he is still requiring a great amount of assistance to transfer out of bed. Discussed the fact that he is not safe to be discharged home, caseworker protective services is actively working on assisting with placement. Physical Exam Vital signs: Vital Signs 05/03/18 12:00 05/03/18 16:00 05/03/18 20:00 Temperature 97.1 F L 96.1 F L 97.2 F L Pulse Rate 89 83 79 Respiratory Rate 17 17 18 Blood Pressure 109/73 104/75 136/92 H Pulse Oximetry 95 100 98 05/04/18 00:00 Temperature 97.8 F Pulse Rate 84 Respiratory Rate 18 Blood Pressure 115/74 Pulse Oximetry 97 Intake & Output 05/03/18 05/04/18 05/04/18 18:59 06:59 18:59 Intake Total 2450 / 2450 500 / 500 500 / 500 Output Total 1325 / 1325 1475 / 1475 Balance 1125 / 1125 500 / 500 -975 / -975 Weight 66.5 kg Intake: IV 1250 / 1250 500 / 500 500 / 500 NS Inj 1,000 ML @ 100 mls/hr IV 1000 / 1000 500 / 500 500 / 500 .CONT .Q10H [facility] Rx#:[id number] Azactam Inj 1,000 MG In NS Inj 100 / 100 100 ML @ 200 mls/hr IV.SIG Q24H [facility] Rx#:[id number] Avycaz Inj 0.94 GM In NS Inj 50 50 / 50 ML @ 25 mls/hr IV.SIG Q12H [facility] Rx#:[id number] Levaquin 500 mg Premix Inj 500 100 / 100 mg In 100 ml @ 0 mls/hr IV.SIG .[facility] Rx#:[id number] Oral 1200 / 1200 Output: Urine Amount (Stoma) 1325 / 1325 1475 / 1475 Ileal Conduit Right 225 / 225 675 / 675 Nephrostomy Tube Left 675 / 675 400 / 400 Nephrostomy Tube Right 425 / 425 400 / 400 Other: # Voids 2 1 Date of Last Bowel Movement 05/03/18 # Bowel Movements 0 1 Narrative: GENERAL: This is a well-nourished, well-developed patient, in no apparent distress. SKIN: Warm and dry HEENT: Normocephalic. Pupils equal round and reactive. Nose without bleeding. Airway patent. NECK: Trachea midline. Supple. CARDIOVASCULAR: Regular rate and rhythm without murmurs, gallops, or rubs. RESPIRATORY: Clear to auscultation. Breath sounds equal bilaterally. No wheezes , rales, or rhonchi. GASTROINTESTINAL: Abdomen soft, non-tender, nondistended. Bowel Sounds normoactive x4. : Bilateral nephrostomy tubes in place, LT draining clear yellow urine, RT yellow and pink tinged urine. RLQ ostomy draining yellow drainage. MUSCULOSKELETAL: Extremities without clubbing, cyanosis, or edema. NEUROLOGICAL: Awake and alert. No focal neuro deficit. Moves all extremities. Normal speech. Results - Labs CBC & Chem 7: 04/30/18 05:58 05/03/18 08:00 Microbiology 05/02/18 17:15 Catheterized Urine Urine Culture - Preliminary Yeast - ID to follow - Imaging Impressions Ureteral Stent Placement 05/03/18 00:00 CONCLUSION: 1. Uncomplicated nephrostomy tube exchange as above. Existing catheter was pulled back into the lower pole calyx. 2. Multiple filling defects characteristic of renal calculi. These appear to be nonobstructing as contrast flows freely through the renal pelvis, down the ureter and into the ileal conduit. This may explain the minimal output from the nephrostomy tube. - Procedures NONE Assessment and Plan - Assessment (1) Obstructive uropathy Code(s): N13.9 - Obstructive and reflux uropathy, unspecified Status: Chronic (2) Atrial fibrillation Code(s): I48.91 - Unspecified atrial fibrillation Status: Chronic (3) Acute on chronic kidney failure Code(s): N17.9 - Acute kidney failure, unspecified; N18.9 - Chronic kidney disease, unspecified Status: Chronic (4) Acute pyelonephritis Code(s): N10 - Acute pyelonephritis Status: Chronic (5) SANDI (acute kidney injury) Code(s): N17.9 - Acute kidney failure, unspecified Status: Chronic (6) Anemia Code(s): D64.9 - Anemia, unspecified Status: Chronic (7) Fall Code(s): W19.XXXA - Unspecified fall, initial encounter Status: Chronic - Plan Patient is a 78-year-old male with a past medical history of obstructing renal stones requiring bilateral nephrostomy tube placement who is presenting to the hospital from a group home facility after having a fall Fall Pt complaining of LLE pain. Imaging negative. Cleared for discharge back to SNF , however, SNF did not accept pt back so he was admitted. -case management consult for placement. -PT/OT -Pain control as needed, with bowel regimen Complex UTI The pt has bilateral nephrostomy tubes for obstructing kidney stones. Recently completed course of antibiotics. -Repeat UA with Shawanda, discussed with Dr. Ng, start Diflucan 100 mg 5 days. -Cultures MDRO/ VRE. -Consulted infectious disease, appreciate recommendations. ID recommends continuing Zyvox for VRE, Avycaz and is act him for resistant Pseudomonas. -Repeat UA growing yeast, discussed with infectious disease, okay to discontinue antibiotics. -Continue p.o. vancomycin for prophylaxis of C. difficile -Right nephrostomy tube exchanged. Radiologist spoke with Yann HUTCHINSON, nephrostomy tube exchanges, however urine is still draining to ileostomy conduit. 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 -IR report findings: Tube pulled back slightly into LP calyx but still in collecting system. Ureter appears to be patent down to ileal conduit (probably why tube doesn't drain much). A few filling defects in collecting system characteristic of stone disease. Tube exchanged and repositioned. SANDI, on chronic kidney disease -IVF for hydration -Avoid nephrotoxins -Renal function with slight improvement -Continue to monitor C. difficile colitis Pt not complaining of diarrhea at this time. -Continue p.o. vancomycin Anemia Chronic. Appears to be at baseline. -Stable CBC. DVT prophylaxis: Marla Discussed Condition With: Patient, RN, caseworker protective services. Discharge Planning: PT following patient, requiring assistance for transfer and very unsteady upon standing. PT is recommending discharge to rehab however patient is refusing. Case management has been in contact with [facility] regarding discharge, this also following patient and has concerns regarding patient being discharged home. (6) Anemia Qualifiers: Anemia type: unspecified type Qualified Code(s): D64.9 - Anemia, unspecified
--- NOTE | 2018-05-04 12:07 | P.DCO ---
- Physical Therapy Order: Evaluate and treat, Improve ambulation, Strength and gait training - Occupational Therapy Order: Evaluate and treat, Improve ADL, Gross motor coordination, Fine motor coordination - Home Health Nursing Order: Signs/symptoms of disease process - Certification I have seen patient Juan Pablo Redmond on 05/04/18. My clinical findings support the need for the requested home health care services because: Limited mobility due to disease progression, Deconditioned with increased weakness, High risk of falls I certify that my clinical findings support that this patient is homebound because: Unsteady gait/balance
[2018-05-05] MEDS: Sod Chloride 0.9% Inj 1,000 ML IV.CONT SCH ×2 (04:20→17:09)
[2018-05-05] MEDS: DRONABINOL 2.5 MG CAPSULE PO SCH ×2 (09:43→20:53)
[2018-05-05] MEDS: Senna/Docusate Sodium 8.6/50 MG Tablet PO SCH ×2 (09:44→20:54)
[2018-05-05] MEDS: Fluconazole 100 MG Tablet PO SCH (09:44)
[2018-05-05 11:16] LABS: Baso % (Auto) 0.9 % (0.0-2.0); Eos # (Auto) 0.4 th/mm3 (0.0-0.4); Eos % (Auto) 6.7 % (0.0-4.0); Hematocrit 26.1 % (39.0-51.0); Hemoglobin 8.7 gm/dL (13.0-17.0); Lymph # (Auto) 1.3 th/mm3 (1.0-4.8); Lymph % (Auto) 23.7 % (9.0-44.0); Mean Corpuscular HGB Conc 33.3 % (32.0-36.0); Mean Corpuscular Hemoglobin 30.7 pg (27.0-34.0); Mean Corpuscular Volume 92.4 fL (80.0-100.0); Mono # (Auto) 0.5 th/mm3 (0.0-0.9); Mono % (Auto) 10.1 % (0.0-8.0); Neut # (Auto) 3.1 th/mm3 (1.8-7.7); Neut % (Auto) 58.6 % (16.0-70.0); Platelet Count 196 th/mm3 (150-450); Red Blood Count 2.83 mil/mm3 (4.50-5.90); Red Cell Distribution Width 18.2 % (11.6-17.2); White Blood Count 5.4 th/mm3 (4.0-11.0)
[2018-05-05 11:37] LABS: Calcium 8.3 mg/dL (8.5-10.1); Carbon Dioxide 21.8 meq/L (21.0-32.0); Potassium 4.3 meq/L (3.5-5.1)
--- NOTE | 2018-05-05 12:02 | P.PN ---
Subjective Interval history: Follow-up visit urinary tract infection, VRE/MDR O, nephrostomy tubes. Patient is seen and examined sitting up in bed, appears to be in no acute distress. This morning patient reports that he is on "the list to be discharged today". He reports that he is ready to go home. States that he walked with physical therapy and is doing good. He denies any fevers, chills, nausea, vomiting, diarrhea, cough or shortness of breath. Discussed with patient the fact that he is not safe to go home, will need to get stronger before he can go. We discussed getting up and working with therapy twice a day, patient is reluctant and states he does not need this. I also discussed with patient that I would like for him to get out of bed to the recliner at least for meals. He is also reluctant to do this. Discussed with patient the fact that he continues to have an infection in his urine and he needs to continue antibiotics as recommended by infectious disease. Physical Exam Vital signs: Vital Signs 05/04/18 16:00 05/04/18 20:00 05/05/18 00:00 Temperature 97.9 F 97.7 F 98.2 F Pulse Rate 68 78 70 Respiratory Rate 16 18 18 Blood Pressure 138/85 139/77 130/69 Pulse Oximetry 96 99 99 05/05/18 04:00 05/05/18 08:00 Temperature 97.8 F 97.2 F L Pulse Rate 77 80 Respiratory Rate 20 20 Blood Pressure 124/73 130/78 Pulse Oximetry 97 98 Intake & Output 05/04/18 05/05/18 05/05/18 18:59 06:59 18:59 Intake Total 2220 / 2220 1120 / 1120 Output Total 2700 / 2700 1400 / 1400 Balance -480 / -480 -280 / -280 Weight 66.7 kg Intake: IV 1500 / 1500 1000 / 1000 NS Inj 1,000 ML @ 100 mls/hr IV 1500 / 1500 1000 / 1000 .CONT .Q10H [facility] Rx#:[id number] Oral 720 / 720 120 / 120 Output: Urine Amount (Stoma) 2700 / 2700 1400 / 1400 Ileal Conduit Right 850 / 850 150 / 150 Nephrostomy Tube Left 975 / 975 650 / 650 Nephrostomy Tube Right 875 / 875 600 / 600 Other: # Voids 1 # Bowel Movements 1 1 Narrative: GENERAL: This is a well-nourished, well-developed patient, in no apparent distress. SKIN: Warm and dry HEENT: Normocephalic. Pupils equal round and reactive. Nose without bleeding. Airway patent. NECK: Trachea midline. Supple. CARDIOVASCULAR: Regular rate and rhythm without murmurs, gallops, or rubs. RESPIRATORY: Clear to auscultation. Breath sounds equal bilaterally. No wheezes , rales, or rhonchi. GASTROINTESTINAL: Abdomen soft, non-tender, nondistended. Bowel Sounds normoactive x4. : Bilateral nephrostomy tubes in place, LT draining clear yellow urine, RT yellow and pink tinged urine. RLQ ostomy draining yellow drainage. MUSCULOSKELETAL: Extremities without clubbing, cyanosis, or edema. NEUROLOGICAL: Awake and alert. No focal neuro deficit. Moves all extremities. Normal speech. Results - Labs CBC & Chem 7: 05/05/18 10:49 05/05/18 10:49 Laboratory Results - last 24 hr 05/05/18 05/05/18 10:49 10:49 WBC 5.4 RBC 2.83 L Hgb 8.7 L Hct 26.1 L MCV 92.4 MCH 30.7 MCHC 33.3 RDW 18.2 H Plt Count 196 MPV 8.0 Neut % (Auto) 58.6 Lymph % (Auto) 23.7 [place] % (Auto) 10.1 H Eos % (Auto) 6.7 H Baso % (Auto) 0.9 Neut # (Auto) 3.1 Lymph # (Auto) 1.3 [place] # (Auto) 0.5 Eos # (Auto) 0.4 Baso # (Auto) 0.0 WBC Differential . Differential Comment Auto diff final Sodium 145 Potassium 4.3 Chloride 111 H Carbon Dioxide 21.8 Anion Gap 12 BUN 33 H Creatinine 2.36 H Estimated GFR 27 L Random Glucose 93 Calcium 8.3 L Microbiology 05/02/18 17:15 Catheterized Urine Urine Culture - Preliminary Pseudomonas species Shawanda tropicalis - Procedures NONE Assessment and Plan - Assessment (1) Obstructive uropathy Code(s): N13.9 - Obstructive and reflux uropathy, unspecified Status: Chronic (2) Atrial fibrillation Code(s): I48.91 - Unspecified atrial fibrillation Status: Chronic (3) Acute on chronic kidney failure Code(s): N17.9 - Acute kidney failure, unspecified; N18.9 - Chronic kidney disease, unspecified Status: Chronic (4) Acute pyelonephritis Code(s): N10 - Acute pyelonephritis Status: Chronic (5) SANDI (acute kidney injury) Code(s): N17.9 - Acute kidney failure, unspecified Status: Chronic (6) Anemia Code(s): D64.9 - Anemia, unspecified Status: Chronic (7) Fall Code(s): W19.XXXA - Unspecified fall, initial encounter Status: Chronic - Plan Patient is a 78-year-old male with a past medical history of obstructing renal stones requiring bilateral nephrostomy tube placement who is presenting to the hospital from a residential facility after having a fall Fall Pt complaining of LLE pain. Imaging negative. Cleared for discharge back to SNF , however, SNF did not accept pt back so he was admitted. -case management consult for placement. -PT/OT -Pain control as needed, with bowel regimen -Discussed with patient the importance of participating in physical therapy. Patient also encouraged to get out of bed for meals. Nursing staff reports patient has been reluctant to turn in bed, discussed high risk for decubitus ulcer. Complex UTI MDRO/ VRE. The pt has bilateral nephrostomy tubes for obstructing kidney stones. Recently completed course of antibiotics. -Repeat UA with Shawanda and Pseudomonas species discussed with Dr. Ng , start Diflucan 100 mg 5 days. ID has also started patient back on IV Aztreonam. -Consulted infectious disease, appreciate recommendations. ID recommends continuing Zyvox for VRE, Avycaz and is act him for resistant Pseudomonas. -Continue p.o. vancomycin for prophylaxis of C. difficile -Right nephrostomy tube exchanged. Radiologist spoke with Yann HUTCHINSON, nephrostomy tube exchanges, however urine is still draining to ileostomy conduit. 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 -IR report findings: Tube pulled back slightly into LP calyx but still in collecting system. Ureter appears to be patent down to ileal conduit (probably why tube doesn't drain much). A few filling defects in collecting system characteristic of stone disease. Tube exchanged and repositioned. SANDI, on chronic kidney disease -IVF for hydration -Avoid nephrotoxins -Renal function with slight improvement -Continue to monitor C. difficile colitis Pt not complaining of diarrhea at this time. -Continue p.o. vancomycin Anemia Chronic. Appears to be at baseline. -Stable CBC. DVT prophylaxis: Marla Discussed Condition With: Patient, RN, PT, case management, [employer] community relations coordinator. Discharge Planning: Patient continues to be very unsteady and almost fell today with PT. Case management has offered home health care and private nursing duty. Patient reports he is not able to pay for private duty nurse. Unsafe discharge due to high risk for fall. Physical therapy ordered 7 days a week twice daily. (6) Anemia Qualifiers: Anemia type: unspecified type Qualified Code(s): D64.9 - Anemia, unspecified
--- NOTE | 2018-05-05 12:26 | P.PNID ---
Subjective Remarks: Patient in no distress. No complaints. Afebrile. No chills. R nephrostomy has slight blood tinged urine. Urine culture has resistant pseudomonas species and Shawanda tropicalis 78-year-old white male who has history of bilateral nephrostomy tube placement. He sees the urologist approximately twice a month. The tubes have been in place since 09/2017. The patient presented to emergency department after he fell. He was evaluated on 04/25/2018 for left hip pain. Patient had a urine sample from the left nephrostomy tube. The culture came back showing multidrug-resistant Pseudomonas aeruginosa and also VRE Enterococcus faecium. Past Medical History: PAST MEDICAL HISTORY: COPD, hypertension, kidney stones, prostate cancer, renal failure, subdural hematoma, UTI, intertrochanteric left hip fracture with nail placement. Allergies/Adverse Reactions: Allergies crab Allergy (Intermediate, Verified 04/12/18 18:03) Rash Blue Shell crab causes severe rash all over face and neck. Needs PCN to help clear it up. Patient CAN eat Shrimp and clams, scallops, oysters without problems. Objective Vital Signs 05/04/18 16:00 05/04/18 20:00 05/05/18 00:00 Temperature 97.9 F 97.7 F 98.2 F Pulse Rate 68 78 70 Respiratory Rate 16 18 18 Blood Pressure 138/85 139/77 130/69 Pulse Oximetry 96 99 99 05/05/18 04:00 05/05/18 08:00 Temperature 97.8 F 97.2 F L Pulse Rate 77 80 Respiratory Rate 20 20 Blood Pressure 124/73 130/78 Pulse Oximetry 97 98 Intake & Output 05/04/18 05/05/18 05/05/18 18:59 06:59 18:59 Intake Total 2220 / 2220 1120 / 1120 Output Total 2700 / 2700 1400 / 1400 Balance -480 / -480 -280 / -280 Weight 66.7 kg Intake: IV 1500 / 1500 1000 / 1000 NS Inj 1,000 ML @ 100 mls/hr IV 1500 / 1500 1000 / 1000 .CONT .Q10H [facility] Rx#:[id number] Oral 720 / 720 120 / 120 Output: Urine Amount (Stoma) 2700 / 2700 1400 / 1400 Ileal Conduit Right 850 / 850 150 / 150 Nephrostomy Tube Left 975 / 975 650 / 650 Nephrostomy Tube Right 875 / 875 600 / 600 Other: # Voids 1 # Bowel Movements 1 1 05/02/18 17:15 Catheterized Urine Urine Culture - Preliminary Pseudomonas species Shawanda tropicalis Lab - Hematology Results 05/05/18 10:49 WBC 5.4 RBC 2.83 L Hgb 8.7 L Hct 26.1 L MCV 92.4 MCH 30.7 MCHC 33.3 RDW 18.2 H Plt Count 196 MPV 8.0 Neut % (Auto) 58.6 Lymph % (Auto) 23.7 [place] % (Auto) 10.1 H Eos % (Auto) 6.7 H Baso % (Auto) 0.9 Neut # (Auto) 3.1 Lymph # (Auto) 1.3 [place] # (Auto) 0.5 Eos # (Auto) 0.4 Baso # (Auto) 0.0 WBC Differential . Differential Comment Auto diff final Lab - Chemistry Results 05/05/18 10:49 Sodium 145 Potassium 4.3 Chloride 111 H Carbon Dioxide 21.8 Anion Gap 12 BUN 33 H Creatinine 2.36 H Estimated GFR 27 L Random Glucose 93 Calcium 8.3 L Imaging: ITS Impressions Femur X-Ray 04/25/18 11:23 CONCLUSION: No acute bony findings Pelvis X-Ray 04/25/18 11:35 CONCLUSION: 1. No acute pelvis abnormality is identified. 2. Severe atherosclerotic disease. Ureteral Stent Placement 05/03/18 00:00 CONCLUSION: 1. Uncomplicated nephrostomy tube exchange as above. Existing catheter was pulled back into the lower pole calyx. 2. Multiple filling defects characteristic of renal calculi. These appear to be nonobstructing as contrast flows freely through the renal pelvis, down the ureter and into the ileal conduit. This may explain the minimal output from the nephrostomy tube. Physical Exam: PHYSICAL EXAM: GENERAL: No acute distress. Awake and alert and oriented. HEENT: The head is atraumatic. Extraocular movements grossly intact. Pupils reactive to light. No icterus. Oropharynx moist mucosa without lesions. NECK: Supple without adenopathy. LUNGS: Clear to auscultation. HEART: Irregular rate and rhythm. No murmurs. ABDOMEN: Bowel sounds present. Soft, nontender. The patient has nephrostomy tube with both flanks. No visible erythema of the flanks. EXTREMITIES: No clubbing, cyanosis or edema. SKIN: No rash. NEUROLOGIC: No gross focal finding. PSYCHIATRIC: Calm and cooperative. Assessment and Plan - Plan IMPRESSION: 1. Urinary tract infection due to multidrug-resistant Pseudomonas and vancomycin-resistant enterococci in a patient with nephrostomy tubes. Repeat urine culture has Pseudomonas and Shawanda. 2. Acute renal failure on top of chronic kidney disease. RECOMMENDATIONS: 1. Discontinue Zyvox. 2. Continue Diflucan. 3. Resume aztreonam for resistant Pseudomonas. 4. Repeat the urine culture couple of days 5. Continue p.o. vancomycin for prophylaxis for C. difficile since the patient has had previous Clostridium difficile.
[2018-05-06] MEDS: Sod Chloride 0.9% Inj 1,000 ML IV.CONT SCH ×3 (03:10→21:02)
[2018-05-06 07:44] LABS: Calcium 8.6 mg/dL (8.5-10.1); Carbon Dioxide 21.8 meq/L (21.0-32.0); Potassium 4.1 meq/L (3.5-5.1)
[2018-05-06] MEDS: Fluconazole 100 MG Tablet PO SCH (09:01)
[2018-05-06] MEDS: Senna/Docusate Sodium 8.6/50 MG Tablet PO SCH ×2 (09:01→20:58)
[2018-05-06] MEDS: DRONABINOL 2.5 MG CAPSULE PO SCH ×2 (09:01→20:58)
--- NOTE | 2018-05-06 09:36 | P.PNIM ---
Subjective Interval history: Follow-up for complex UTI and C. difficile. While working with PT today, the patient's left nephrostomy tube was displaced and came out. Otherwise patient has no complaints today. He reports he has atrial fibrillation, but was taken off of warfarin by his translator and interpreter at the [facility] because he "did not need it". Physical Exam Vital signs: Vital Signs 05/05/18 12:00 05/05/18 16:00 05/05/18 20:00 Temperature 97.4 F L 97.3 F L 97.2 F L Pulse Rate 85 73 80 Respiratory Rate 16 18 17 Blood Pressure 136/93 H 100/71 149/90 H Pulse Oximetry 98 97 99 05/06/18 00:00 05/06/18 04:00 05/06/18 08:00 Temperature 98.5 F 97.4 F L 97.3 F L Pulse Rate 75 78 104 H Respiratory Rate 17 16 16 Blood Pressure 145/85 H 138/82 131/87 Pulse Oximetry 99 98 99 Intake & Output 05/05/18 05/06/18 05/06/18 18:59 06:59 18:59 Intake Total 2150 / 2150 1200 / 1200 Output Total 480 / 480 1100 / 1100 Balance 1670 / 1670 100 / 100 Weight 147 lb 4.301 oz Intake: IV 950 / 950 1200 / 1200 NS Inj 1,000 ML @ 100 mls/hr IV 950 / 950 1000 / 1000 .CONT .Q10H [facility] Rx#:[id number] Azactam Inj 1,000 MG In NS Inj 200 / 200 100 ML @ 200 mls/hr IV.SIG Q8H [facility] Rx#:[id number] Oral 1200 / 1200 Output: Urine Amount (Stoma) 480 / 480 1100 / 1100 Ileal Conduit Right 250 / 250 450 / 450 Nephrostomy Tube Left 30 / 30 625 / 625 Nephrostomy Tube Right 200 / 200 25 / 25 Other: # Incontinent Bowel Movements 1 Narrative: GENERAL: Well-developed well-nourished. In no acute distress. SKIN: Warm and dry. No lesions noted. CARDIOVASCULAR: Irregular rate and rhythm. No murmur appreciated. RESPIRATORY: No accessory muscle use. Clear to auscultation. Breath sounds equal bilaterally. Abdomen: Abdomen soft, non-tender, nondistended. Bowel sounds x4. Urostomy in place Back: Right nephrostomy tube in place. Clean dressing over previous left nephrostomy tube site. MUSCULOSKELETAL: No obvious deformities. No clubbing or cyanosis. No edema. NEUROLOGICAL: Awake and alert. Moves upper and lower extremities spontaneously. Normal speech. PSYCHIATRIC: Appropriate mood and affect. Results - Labs CBC & Chem 7: 05/05/18 10:49 05/06/18 05:51 Laboratory Results - last 24 hr 05/05/18 05/05/18 05/06/18 10:49 10:49 05:51 WBC 5.4 RBC 2.83 L Hgb 8.7 L Hct 26.1 L MCV 92.4 MCH 30.7 MCHC 33.3 RDW 18.2 H Plt Count 196 MPV 8.0 Neut % (Auto) 58.6 Lymph % (Auto) 23.7 [place] % (Auto) 10.1 H Eos % (Auto) 6.7 H Baso % (Auto) 0.9 Neut # (Auto) 3.1 Lymph # (Auto) 1.3 [place] # (Auto) 0.5 Eos # (Auto) 0.4 Baso # (Auto) 0.0 WBC Differential . Differential Comment Auto diff final Sodium 145 143 Potassium 4.3 4.1 Chloride 111 H 113 H Carbon Dioxide 21.8 21.8 Anion Gap 12 8 BUN 33 H 33 H Creatinine 2.36 H 2.23 H Estimated GFR 27 L 29 L Random Glucose 93 75 Calcium 8.3 L 8.6 Microbiology 05/02/18 17:15 Catheterized Urine Urine Culture - Preliminary Pseudomonas species Shawanda tropicalis - Procedures NONE Assessment and Plan - Plan 78-year-old male with a past medical history of obstructing renal stones requiring bilateral nephrostomy tube placement who is presenting to the hospital from a snf facility after having a fall Fall Pt presented with fall and LLE pain, Imaging negative. Cleared for discharge back to SNF, however, SNF did not accept pt back so he was admitted. -case management consult for discharge assistance. -PT/OT -recommending SNF -Pain control as needed, with bowel regimen Complex UTI MDRO/ VRE. The pt has bilateral nephrostomy tubes for obstructing kidney stones. Recently completed course of antibiotics. -Repeat UA with Shawanda and Pseudomonas species -ID on board. -Patient currently on aztreonam IV, fluconazole p.o. Obstructive uropathy status post urostomy and nephrostomy's Displacement/removal of nephrostomy tube 05/06 while working with PT -Consulted patient's urologist, Dr. Lynch, d/w Dr. Quinonez who recommended IR intervene -d/w Dr. Castro, will replace, IR consult placed SANDI on chronic kidney disease -Creatinine trending down -IVF for hydration -Avoid nephrotoxins -Continue to monitor C. difficile colitis No diarrhea currently -Continue p.o. vancomycin on antibiotics as above Atrial fibrillation, chronic -On apixaban for anticoagulation DVT prophylaxis: Marla Discussed Condition With: Patient with RN at bedside, Dr. López
[2018-05-06] MEDS ORDERED: fentaNYL Citrate Inj 250 MCG/5 ML Ampul ONE (16:05)
[2018-05-06] MEDS ORDERED: Levofloxacin 500 mg Premix Inj 500 MG/100 ML PIGGYBACK IV.SIG ONE (16:24)
[2018-05-06] MEDS ORDERED: Iohexol 350 MG/ML 50 ML Vial (for Rad Diag) IVCONTRAST ONE (16:30)
--- NOTE | 2018-05-06 16:53 | P.RAD ---
Post Procedure Progress Note - Pre Procedure Diagnosis (1) Nephrostomy complication - Post Procedure Diagnosis (1) Nephrostomy complication - Procedure Information Supervising Radiologist: Krishna Castro MD Anesthesia: Local, Analgesia - Plan of Activity Patient to Unit: Nursing Unit Patient Condition: Good See PACS Report for procedural detail/treatment. Drainage Procedure Fluoroscopy left Nephrostomy Replacement Drainage: [place] drainage Fluid Description: Clear, Red Findings: Tube tract traversed with catheter and wire. New tube placed over wire.
--- NOTE | 2018-05-06 17:34 | IR ---
EXAM DATE: 05/06/2018 4:53 PM EDT AGE/SEX: 78 years / Male INDICATIONS: Patient presents with dislodged left-sided nephrostomy tube in need of replacement. CLINICAL DATA: This is the patient's subsequent encounter. Patient reports that signs and symptoms h ave been present for 1 day and indicates a pain score of 0/10. He states that the tube was completely pulled out during physical therapy today. MEDICAL/SURGICAL HISTORY: Hypotension, UTI, Parotid mass, COPD, Kidney stones, C-Diff, Prostate cance r, Subdural hematoma Urostomy, Bilateral nephrostomy tube COMPARISON: No prior exams available for comparison. FLUORO TIME (min): 1.1 IMAGE SERIES: 1 SEDATION TIME (min): 30 CONTRAST (cc): 10CC Omnipaque (iohexol) 350 MEDICATION(S): 50MCG fentanyl (Sublimaze) IV 1MG lorazepam (Ativan) IV Prophylactic antibiotics were administered with appropriate pre-procedure timing. Vancomycin within 2 hrs of procedure, Ancef (or alternative) within 1 hr of procedure. DEVICE(S): 8 Bahamian nephrostomy catheter Expel . . PROCEDURE: 1. Antegrade pyelogram. 2. Nephrostomy tube replacement. The risks, benefits and alternatives to the procedure were explained and verbal and written consent w as obtained. The site was prepped in sterile fashion. Full sterile technique was used, including ca p, mask, sterile gloves and gown and a large sterile sheet. Hand hygiene and 2% chlorhexidine and/or betadine/alcohol prep was utilized per protocol for cutaneous antisepsis. The skin and subcutaneous tissues were infiltrated with local anesthetic solution. With fluoroscopic guidance antegrade pyelo gram was performed. The previous nephrostomy site was probed with a 4 [place]ian hockey-stick catheter. Contrast injection de monstrated a tract to the left renal collecting system. The hockey-stick catheter and Glidewire were manipulated back into the collecting system and position was confirmed with positive contrast. Over t he wire, a new 8 [place]ian nephrostomy tube was advanced into the collecting system. The cope loop was f ormed and the catheter secured to the skin surface with 2-0 silk suture. IV analgesia and local anesthetic were utilized. EKG and oximetry remained stable throughout the pro cedure. The patient tolerated the procedure well and there were no complications. The patient was sent to post anesthesia recovery in stable condition. CONCLUSION: Uncomplicated nephrostomy tube replacement as above. The previous tube was inadvertently dislodged du [facility] physical therapy earlier today. Electronically signed by: Krishna Castro MD 05/06/2018 5:33 PM EDT
[2018-05-07] MEDS: Sod Chloride 0.9% Inj 1,000 ML IV.CONT SCH ×2 (06:39→19:16)
[2018-05-07] MEDS: DRONABINOL 2.5 MG CAPSULE PO SCH ×2 (08:51→21:04)
[2018-05-07] MEDS: Fluconazole 100 MG Tablet PO SCH (08:51)
[2018-05-07] MEDS: Senna/Docusate Sodium 8.6/50 MG Tablet PO SCH ×2 (08:51→21:04)
--- NOTE | 2018-05-07 13:21 | P.PNIM ---
Subjective Interval history: Follow-up for complex UTI and C. difficile. left nephrostomy tube was displaced 05/06, replaced by IR 05/06. Otherwise patient has no complaints today. Physical Exam Vital signs: Vital Signs 05/06/18 16:00 05/06/18 20:00 05/07/18 00:00 Temperature 97.8 F 97.3 F L Pulse Rate 85 104 H 102 H Respiratory Rate 16 20 20 Blood Pressure 141/82 H 138/94 H 136/64 Pulse Oximetry 98 100 05/07/18 08:00 05/07/18 12:00 Temperature 97.6 F 98.0 F Pulse Rate 109 H 88 Respiratory Rate 17 16 Blood Pressure 123/75 132/65 Pulse Oximetry 97 100 Intake & Output 05/06/18 05/07/18 05/07/18 18:59 06:59 18:59 Intake Total 1200 / 1200 2200 / 2200 100 / 100 Output Total 1425 / 1425 1825 / 1825 Balance -225 / -225 375 / 375 100 / 100 Weight 66.6 kg Intake: IV 1200 / 1200 2200 / 2200 100 / 100 NS Inj 1,000 ML @ 100 mls/hr IV 1000 / 1000 2000 / 2000 .CONT .Q10H [facility] Rx#:[id number] Azactam Inj 1,000 MG In NS Inj 100 / 100 200 / 200 100 / 100 100 ML @ 200 mls/hr IV.SIG Q8H [facility] Rx#:[id number] Levaquin 500 mg Premix Inj 500 100 / 100 mg In 100 ml @ 0 mls/hr IV.SIG .[facility] Rx#:[id number] Output: Urine Amount (Stoma) 1425 / 1425 1825 / 1825 Ileal Conduit Right 400 / 400 275 / 275 Nephrostomy Tube Left 600 / 600 800 / 800 Nephrostomy Tube Right 425 / 425 750 / 750 Other: Date of Last Bowel Movement 05/03/18 05/06/18 05/06/18 # Bowel Movements 1 Narrative: GENERAL: Well-developed well-nourished. In no acute distress. SKIN: Warm and dry. No lesions noted. CARDIOVASCULAR: Irregular rate and rhythm. No murmur appreciated. RESPIRATORY: No accessory muscle use. Clear to auscultation. Breath sounds equal bilaterally. Abdomen: Abdomen soft, non-tender, nondistended. Bowel sounds x4. Urostomy in place Back: Right and left nephrostomy tube in place. MUSCULOSKELETAL: No obvious deformities. No clubbing or cyanosis. No edema. NEUROLOGICAL: Awake and alert. Moves upper and lower extremities spontaneously. Normal speech. PSYCHIATRIC: Appropriate mood and affect. Results - Labs CBC & Chem 7: 05/05/18 10:49 05/06/18 05:51 Microbiology 05/02/18 17:15 Catheterized Urine Urine Culture - Final Pseudomonas aeruginosa Multidrug Resistant Shawanda tropicalis - Imaging Impressions Nephrostomy Tube Change 05/06/18 00:00 CONCLUSION: Uncomplicated nephrostomy tube replacement as above. The previous tube was inadvertently dislodged during physical therapy earlier today. - Procedures NONE Assessment and Plan - Plan 78-year-old male with a past medical history of obstructing renal stones requiring bilateral nephrostomy tube placement who is presenting to the hospital from a assisted facility after having a fall Fall Pt presented with fall and LLE pain, Imaging negative. Cleared for discharge back to SNF, however, SNF did not accept pt back so he was admitted. -case management consult for discharge assistance. -PT/OT -recommending SNF -Pain control as needed, with bowel regimen Complex UTI MDRO/ VRE. The pt has bilateral nephrostomy tubes for obstructing kidney stones. Recently completed course of antibiotics. -Repeat UA with Shawanda and Pseudomonas species -ID on board. -Patient currently on aztreonam IV, fluconazole p.o. and p.o. vancomycin Obstructive uropathy status post urostomy and nephrostomy's Displacement/removal of nephrostomy tube 05/06 while working with PT -Consulted patient's urologist, Dr. Lynch, d/w Dr. Quinonez who recommended IR intervene -d/w Dr. Castro, IR replaced left nephrostomy tube 05/06 SANDI on chronic kidney disease -Creatinine trending down -IVF for hydration -Avoid nephrotoxins -Continue to monitor -Recheck BMP in a.m. C. difficile colitis No diarrhea currently -Continue p.o. vancomycin on antibiotics as above Atrial fibrillation, chronic -On apixaban for anticoagulation Patient on Midodrine for Hypotension, patient no longer having hypotension. Patient does not recall feeling dizzy or lightheaded. Will DC Midodrine, monitor BP and check orthostatic vital signs DVT prophylaxis: Marla Discussed Condition With: Patient with RN at bedside, [place] Discharge once cleared by ID and final antibiotic recommendations are made/ arranged
[2018-05-08] MEDS: Sod Chloride 0.9% Inj 1,000 ML IV.CONT SCH ×3 (04:37→23:20)
[2018-05-08 08:09] LABS: Baso % (Auto) 0.5 % (0.0-2.0); Eos # (Auto) 0.4 th/mm3 (0.0-0.4); Eos % (Auto) 7.2 % (0.0-4.0); Hematocrit 24.1 % (39.0-51.0); Hemoglobin 7.8 gm/dL (13.0-17.0); Lymph # (Auto) 1.3 th/mm3 (1.0-4.8); Lymph % (Auto) 26.2 % (9.0-44.0); Mean Corpuscular HGB Conc 32.4 % (32.0-36.0); Mean Corpuscular Hemoglobin 30.6 pg (27.0-34.0); Mean Corpuscular Volume 94.2 fL (80.0-100.0); Mean Platelet Volume 8.2 fL (7.0-11.0); Mono # (Auto) 0.6 th/mm3 (0.0-0.9); Mono % (Auto) 11.8 % (0.0-8.0); Neut # (Auto) 2.7 th/mm3 (1.8-7.7); Neut % (Auto) 54.3 % (16.0-70.0); Platelet Count 145 th/mm3 (150-450); Red Blood Count 2.56 mil/mm3 (4.50-5.90); Red Cell Distribution Width 18.4 % (11.6-17.2); White Blood Count 4.9 th/mm3 (4.0-11.0)
[2018-05-08 08:36] LABS: Calcium 8.2 mg/dL (8.5-10.1); Carbon Dioxide 19.3 meq/L (21.0-32.0); Potassium 4.2 meq/L (3.5-5.1)
[2018-05-08] MEDS: Senna/Docusate Sodium 8.6/50 MG Tablet PO SCH ×2 (09:27→20:14)
[2018-05-08] MEDS: Fluconazole 100 MG Tablet PO SCH (09:27)
[2018-05-08] MEDS: DRONABINOL 2.5 MG CAPSULE PO SCH ×2 (09:41→20:13)
--- NOTE | 2018-05-08 12:42 | P.PNID ---
Subjective Remarks: Patient in no distress. No complaints. Afebrile. No chills. R nephrostomy continues to have slight blood tinged urine. Left nephrostomy urine is clear. Last urine culture has resistant pseudomonas species and Shawanda tropicalis 78-year-old white male who has history of bilateral nephrostomy tube placement. He sees the urologist approximately twice a month. The tubes have been in place since 09/2017. The patient presented to emergency department after he fell. He was evaluated on 04/25/2018 for left hip pain. Patient had a urine sample from the left nephrostomy tube. The culture came back showing multidrug-resistant Pseudomonas aeruginosa and also VRE Enterococcus faecium. Past Medical History: PAST MEDICAL HISTORY: COPD, hypertension, kidney stones, prostate cancer, renal failure, subdural hematoma, UTI, intertrochanteric left hip fracture with nail placement. Allergies/Adverse Reactions: Allergies crab Allergy (Intermediate, Verified 04/12/18 18:03) Rash Blue Shell crab causes severe rash all over face and neck. Needs PCN to help clear it up. Patient CAN eat Shrimp and clams, scallops, oysters without problems. Objective Vital Signs 05/07/18 20:00 05/08/18 00:00 05/08/18 08:00 Temperature 98.4 F 97.9 F Pulse Rate 95 H 107 H 79 Respiratory Rate 18 20 18 Blood Pressure 128/77 118/66 122/78 Pulse Oximetry 99 98 99 Intake & Output 05/07/18 05/08/18 05/08/18 18:59 06:59 18:59 Intake Total 2300 / 2300 1200 / 1200 Output Total 2550 / 2550 Balance 2300 / 2300 -1350 / -1350 Weight 68 kg Intake: IV 1100 / 1100 1200 / 1200 NS Inj 1,000 ML @ 100 mls/hr IV 1000 / 1000 1000 / 1000 .CONT .Q10H [facility] Rx#:[id number] Azactam Inj 1,000 MG In NS Inj 100 / 100 200 / 200 100 ML @ 200 mls/hr IV.SIG Q8H [facility] Rx#:[id number] Oral 1200 / 1200 Output: Urine Amount (Stoma) 2550 / 2550 Ileal Conduit Right 175 / 175 Nephrostomy Tube Left 1275 / 1275 Nephrostomy Tube Right 1100 / 1100 Other: # Voids 3 Date of Last Bowel Movement 05/06/18 05/06/18 # Bowel Movements 2 1 # Incontinent Bowel Movements 1 05/02/18 17:15 Catheterized Urine Urine Culture - Final Pseudomonas aeruginosa Multidrug Resistant Shawanda tropicalis Lab - Hematology Results 05/08/18 06:57 WBC 4.9 RBC 2.56 L Hgb 7.8 L Hct 24.1 L MCV 94.2 MCH 30.6 MCHC 32.4 RDW 18.4 H Plt Count 145 L MPV 8.2 Neut % (Auto) 54.3 Lymph % (Auto) 26.2 [place] % (Auto) 11.8 H Eos % (Auto) 7.2 H Baso % (Auto) 0.5 Neut # (Auto) 2.7 Lymph # (Auto) 1.3 [place] # (Auto) 0.6 Eos # (Auto) 0.4 Baso # (Auto) 0.0 WBC Differential . Differential Comment Auto diff final Lab - Chemistry Results 05/08/18 06:57 Sodium 145 Potassium 4.2 Chloride 117 H Carbon Dioxide 19.3 L Anion Gap 9 BUN 29 H Creatinine 2.04 H Estimated GFR 32 L Random Glucose 76 Calcium 8.2 L Imaging: ITS Impressions Femur X-Ray 04/25/18 11:23 CONCLUSION: No acute bony findings Pelvis X-Ray 04/25/18 11:35 CONCLUSION: 1. No acute pelvis abnormality is identified. 2. Severe atherosclerotic disease. Ureteral Stent Placement 05/03/18 00:00 CONCLUSION: 1. Uncomplicated nephrostomy tube exchange as above. Existing catheter was pulled back into the lower pole calyx. 2. Multiple filling defects characteristic of renal calculi. These appear to be nonobstructing as contrast flows freely through the renal pelvis, down the ureter and into the ileal conduit. This may explain the minimal output from the nephrostomy tube. Nephrostomy Tube Change 05/06/18 00:00 CONCLUSION: Uncomplicated nephrostomy tube replacement as above. The previous tube was inadvertently dislodged during physical therapy earlier today. Physical Exam: PHYSICAL EXAM: GENERAL: No acute distress. Awake and alert and oriented. HEENT: No icterus. Oropharynx moist mucosa without lesions. NECK: Supple without adenopathy. LUNGS: Clear to auscultation. HEART: Irregular rate and rhythm. No murmurs. ABDOMEN: Bowel sounds present. Soft, nontender. The patient has nephrostomy tube at both flanks. No visible erythema of the flanks. Right nephrostomy has blood-tinged urine. EXTREMITIES: No clubbing, cyanosis or edema. SKIN: No rash. NEUROLOGIC: No gross focal finding. PSYCHIATRIC: Calm and cooperative. Assessment and Plan - Plan IMPRESSION: 1. Urinary tract infection due to multidrug-resistant Pseudomonas and vancomycin-resistant enterococci in a patient with nephrostomy tubes. Repeat urine culture has Pseudomonas and Shawanda. 2. Acute renal failure on top of chronic kidney disease. RECOMMENDATIONS: 1. Continue Diflucan. 2. Continue aztreonam for Pseudomonas. 3. Repeat urine analysis today. 4. Continue p.o. vancomycin for prophylaxis for C. difficile since the patient has had previous Clostridium difficile. 5. Further decisions determination based on the repeat urine culture. If the urine analysis is unremarkable we can probably stop the antibiotics.
--- NOTE | 2018-05-08 14:32 | P.PN ---
Subjective Interval history: Follow-up visit for complex UTI. Patient seen and examined resting in bed comfortably in no acute distress, continues to report that he would like to go home. Denies any fevers, chills, nausea, vomiting, diarrhea, cough, shortness of breath or chest pain. Spoke with physical therapy who reports patient has been ambulating however still very unsteady on his feet. Physical Exam Vital signs: Vital Signs 05/07/18 20:00 05/08/18 00:00 05/08/18 08:00 Temperature 98.4 F 97.9 F Pulse Rate 95 H 107 H 79 Respiratory Rate 18 20 18 Blood Pressure 128/77 118/66 122/78 Pulse Oximetry 99 98 99 05/08/18 12:00 Temperature 97.3 F L Pulse Rate 100 H Respiratory Rate 16 Blood Pressure 131/63 Pulse Oximetry 99 Intake & Output 05/07/18 05/08/18 05/08/18 18:59 06:59 18:59 Intake Total 2300 / 2300 1200 / 1200 1000 / 1000 Output Total 2550 / 2550 Balance 2300 / 2300 -1350 / -1350 1000 / 1000 Weight 68 kg Intake: IV 1100 / 1100 1200 / 1200 1000 / 1000 NS Inj 1,000 ML @ 100 mls/hr IV 1000 / 1000 1000 / 1000 1000 / 1000 .CONT .Q10H [facility] Rx#:[id number] Azactam Inj 1,000 MG In NS Inj 100 / 100 200 / 200 100 ML @ 200 mls/hr IV.SIG Q8H [facility] Rx#:[id number] Oral 1200 / 1200 Output: Urine Amount (Stoma) 2550 / 2550 Ileal Conduit Right 175 / 175 Nephrostomy Tube Left 1275 / 1275 Nephrostomy Tube Right 1100 / 1100 Other: # Voids 3 Date of Last Bowel Movement 05/06/18 05/06/18 # Bowel Movements 2 1 # Incontinent Bowel Movements 1 Narrative: GENERAL: Well-developed well-nourished. In no acute distress. SKIN: Warm and dry. No lesions noted. CARDIOVASCULAR: Irregular rate and rhythm. No murmur appreciated. RESPIRATORY: No accessory muscle use. Clear to auscultation. Breath sounds equal bilaterally. Abdomen: Abdomen soft, non-tender, nondistended. Bowel sounds x4. Urostomy in place with clear yellow urine. Back: Right and left nephrostomy tube in place. Right nephrostomy tube with light pink tinged urine. MUSCULOSKELETAL: No obvious deformities. No clubbing or cyanosis. No edema. NEUROLOGICAL: Awake and alert. Moves upper and lower extremities spontaneously. Normal speech. PSYCHIATRIC: Appropriate mood and affect. Results - Labs CBC & Chem 7: 05/08/18 06:57 05/08/18 06:57 Laboratory Results - last 24 hr 05/08/18 05/08/18 06:57 06:57 WBC 4.9 RBC 2.56 L Hgb 7.8 L Hct 24.1 L MCV 94.2 MCH 30.6 MCHC 32.4 RDW 18.4 H Plt Count 145 L MPV 8.2 Neut % (Auto) 54.3 Lymph % (Auto) 26.2 [place] % (Auto) 11.8 H Eos % (Auto) 7.2 H Baso % (Auto) 0.5 Neut # (Auto) 2.7 Lymph # (Auto) 1.3 [place] # (Auto) 0.6 Eos # (Auto) 0.4 Baso # (Auto) 0.0 WBC Differential . Differential Comment Auto diff final Sodium 145 Potassium 4.2 Chloride 117 H Carbon Dioxide 19.3 L Anion Gap 9 BUN 29 H Creatinine 2.04 H Estimated GFR 32 L Random Glucose 76 Calcium 8.2 L - Procedures NONE Assessment and Plan - Plan Patient is a 78-year-old male with a past medical history of obstructing renal stones requiring bilateral nephrostomy tube placement who is presenting to the hospital from a intermediate facility after having a fall Fall Pt complaining of LLE pain. Imaging negative. Cleared for discharge back to SNF , however, SNF did not accept pt back so he was admitted. -case management consult for placement. -PT/OT -Pain control as needed, with bowel regimen -Discussed with patient the importance of participating in physical therapy. Patient also encouraged to get out of bed for meals. Nursing staff reports patient has been reluctant to turn in bed, discussed high risk for decubitus ulcer. Complex UTI MDRO/ VRE. The pt has bilateral nephrostomy tubes for obstructing kidney stones. Recently completed course of antibiotics. -Repeat UA with Shawanda and Pseudomonas species discussed with Dr. Ng , start Diflucan 100 mg 5 days. ID has also started patient back on IV biotics , repeat UA sent today. -Consulted infectious disease, appreciate recommendations. ID recommends continuing Zyvox for VRE, Avycaz and is act him for resistant Pseudomonas. -Continue p.o. vancomycin for prophylaxis of C. difficile -Right nephrostomy tube exchanged. Radiologist spoke with Yann HUTCHINSON, nephrostomy tube exchanges, however urine is still draining to ileostomy conduit. This could possibly be a chronic issue, radiologist to discuss with patient's editor book. -IR report findings: Tube pulled back slightly into LP calyx but still in collecting system. Ureter appears to be patent down to ileal conduit (probably why tube doesn't drain much). A few filling defects in collecting system characteristic of stone disease. Tube exchanged and repositioned. -Left nephrostomy tube exchanged 04/06 in IR SANDI, on chronic kidney disease -IVF for hydration -Avoid nephrotoxins -Renal function continues to improve. -Continue to monitor C. difficile colitis Pt not complaining of diarrhea at this time. -Continue p.o. vancomycin Anemia Chronic. Appears to be at baseline. -H&H 7.8/24.1, lightly tinged red urine with no other reports of bleeding, recheck CBC in the morning. DVT prophylaxis: Marla Discussed Condition With: Discussed with patient, RN, physical therapist, caser up, and Dr. Ng. Discharge Planning: Patient continues to be very unsteady and almost fell today with PT. Case management has offered home health care and private nursing duty. Patient reports he is not able to pay for private duty nurse. Unsafe discharge due to high risk for fall. Physical therapy ordered 7 days a week twice daily. Possibly DC tomorrow once cleared by ID, if ambulating better and more steady on his feet.
[2018-05-08 15:01] LABS: Bacteria,Urine Rare /hpf; Bilirubin,Urine Negative (Negative); Clarity,Urine Hazy (Clear); Color,Urine Straw (Yellw/Straw); Glucose,Urine (UA) Negative (Negative); Leukocyte Esterase,Urine Large (Negative); Mucus,Urine Few /lpf (Occasional); Nitrite,Urine Negative (Negative); Specific Gravity,Urine 1.009 (1.002-1.035)
[2018-05-09 06:30] LABS: Baso % (Auto) 0.6 % (0.0-2.0); Eos # (Auto) 0.5 th/mm3 (0.0-0.4); Eos % (Auto) 8.7 % (0.0-4.0); Hematocrit 24.9 % (39.0-51.0); Hemoglobin 8.2 gm/dL (13.0-17.0); Lymph # (Auto) 1.5 th/mm3 (1.0-4.8); Lymph % (Auto) 27.8 % (9.0-44.0); Mean Corpuscular HGB Conc 33.1 % (32.0-36.0); Mean Corpuscular Hemoglobin 31.3 pg (27.0-34.0); Mean Corpuscular Volume 94.5 fL (80.0-100.0); Mean Platelet Volume 8.2 fL (7.0-11.0); Mono # (Auto) 0.6 th/mm3 (0.0-0.9); Mono % (Auto) 12.2 % (0.0-8.0); Neut # (Auto) 2.7 th/mm3 (1.8-7.7); Neut % (Auto) 50.7 % (16.0-70.0); Platelet Count 137 th/mm3 (150-450); Red Blood Count 2.64 mil/mm3 (4.50-5.90); Red Cell Distribution Width 18.6 % (11.6-17.2); White Blood Count 5.3 th/mm3 (4.0-11.0)
[2018-05-09 06:59] LABS: Calcium 8.1 mg/dL (8.5-10.1); Carbon Dioxide 21.5 meq/L (21.0-32.0)
[2018-05-09] MEDS: DRONABINOL 2.5 MG CAPSULE PO SCH ×2 (08:50→20:06)
[2018-05-09] MEDS: Senna/Docusate Sodium 8.6/50 MG Tablet PO SCH ×2 (08:50→20:04)
[2018-05-09] MEDS: Fluconazole 100 MG Tablet PO SCH (08:50)
[2018-05-09] MEDS: Sod Chloride 0.9% Inj 1,000 ML IV.CONT SCH ×2 (08:51→17:35)
--- NOTE | 2018-05-09 12:13 | P.PNIM ---
Subjective Interval history: Declining to go to nursing home facility despite counseling and understands risk of falls resulting in fracture, brain trauma or even . Physical Exam Vital signs: Vital Signs 05/08/18 16:00 05/08/18 20:07 05/09/18 00:11 Temperature 97.8 F 97.9 F 97.9 F Pulse Rate 95 H 78 82 Respiratory Rate 18 Blood Pressure 116/66 128/73 125/76 Pulse Oximetry 98 94 L 96 Intake & Output 05/08/18 05/09/18 05/09/18 18:59 06:59 18:59 Intake Total 2400 / 2400 1680 / 1680 1000 / 1000 Output Total 725 / 725 1375 / 1375 Balance 1675 / 1675 305 / 305 1000 / 1000 Weight 67 kg Intake: IV 1100 / 1100 1200 / 1200 1000 / 1000 NS Inj 1,000 ML @ 100 mls/hr IV 1000 / 1000 1000 / 1000 1000 / 1000 .CONT .Q10H [facility] Rx#:[id number] Azactam Inj 1,000 MG In NS Inj 100 / 100 200 / 200 100 ML @ 200 mls/hr IV.SIG Q8H [facility] Rx#:[id number] Oral 1300 / 1300 480 / 480 Output: Urine Amount (Stoma) 725 / 725 1375 / 1375 Ileal Conduit Right 175 / 175 75 / 75 Nephrostomy Tube Left 400 / 400 850 / 850 Nephrostomy Tube Right 150 / 150 450 / 450 Other: # Voids 1 Date of Last Bowel Movement 05/06/18 05/08/18 # Bowel Movements 2 Narrative: GENERAL: Well-developed well-nourished. In no acute distress. SKIN: Warm and dry. No lesions noted. CARDIOVASCULAR: Irregular rate and rhythm. No murmur appreciated. RESPIRATORY: No accessory muscle use. Clear to auscultation. Breath sounds equal bilaterally. Abdomen: Abdomen soft, non-tender, nondistended. Bowel sounds x4. Urostomy in place with clear yellow urine. Back: Right and left nephrostomy tube in place. Right nephrostomy tube with light pink tinged urine. MUSCULOSKELETAL: No obvious deformities. No clubbing or cyanosis. No edema. NEUROLOGICAL: Awake and alert. Moves upper and lower extremities spontaneously. Normal speech. PSYCHIATRIC: Appropriate mood and affect. Results - Labs CBC & Chem 7: 05/09/18 05:12 05/09/18 05:12 Laboratory Results - last 24 hr 05/08/18 05/09/18 05/09/18 13:30 05:12 05:12 WBC 5.3 RBC 2.64 L Hgb 8.2 L Hct 24.9 L MCV 94.5 MCH 31.3 MCHC 33.1 RDW 18.6 H Plt Count 137 L MPV 8.2 Neut % (Auto) 50.7 Lymph % (Auto) 27.8 [place] % (Auto) 12.2 H Eos % (Auto) 8.7 H Baso % (Auto) 0.6 Neut # (Auto) 2.7 Lymph # (Auto) 1.5 [place] # (Auto) 0.6 Eos # (Auto) 0.5 H Baso # (Auto) 0.0 WBC Differential . Differential Comment Auto diff final Sodium 145 Potassium 4.0 Chloride 117 H Carbon Dioxide 21.5 Anion Gap 7 BUN 27 H Creatinine 2.13 H Estimated GFR 30 L Random Glucose 85 Calcium 8.1 L Urine Color Straw Urine Clarity Hazy H Urine pH 6.0 Ur Specific [place] 1.009 Urine Protein 30 H Urine Glucose (UA) Negative Urine Ketones Negative Urine Occult Blood Moderate H Urine Nitrate Negative Urine Bilirubin Negative Urine Urobilinogen Less than 2 Ur Leukocyte Esterase Large H Urine RBC 41 H Urine WBC 165 H Urine WBC Clumps Few H Urine Bacteria Rare H Urine Mucus Few H Micro UA Comment Culture indicated Ur Microscopic Review Not Reportable Urine Culture Comments Culture indicated - Procedures NONE Assessment and Plan - Plan Patient is a 78-year-old male with a past medical history of obstructing renal stones requiring bilateral nephrostomy tube placement who is presenting to the hospital from a nursing home facility after having a fall Status post fall fall Pt complaining of LLE pain. Imaging negative. Cleared for discharge back to SNF , however, SNF did not accept pt back so he was admitted. -case management consult for placement, however patient adamantly refuses going to a nursing home facility and wants to return home. -PT/OT -Pain control as needed, with bowel regimen -Discussed with patient the importance of participating in physical therapy. Patient also encouraged to get out of bed for meals. Patient states that he does have neighbors to help him. Home health care limitation visits discussed with the patient he understands and consequences of repeat fall including fractures, head trauma, and even . However, patient continues to refuse a nursing home facility placement. Complex UTI MDRO/ VRE. The pt has bilateral nephrostomy tubes for obstructing kidney stones. Recently completed course of antibiotics. -Repeat UA with Shawanda and Pseudomonas species discussed with Dr. Ng , start Diflucan 100 mg 5 days. ID has also started patient back on IV biotics , repeat UA sent today. Awaiting urine cultures and if negative, will discontinue antibiotics. -Consulted infectious disease, appreciate recommendations. ID recommends continuing Zyvox for VRE, Azactam for resistant Pseudomonas. -Continue p.o. vancomycin for prophylaxis of C. difficile -Right nephrostomy tube exchanged. Radiologist spoke with Yann HUTCHINSON, nephrostomy tube exchanges, however urine is still draining to ileostomy conduit. This could possibly be a chronic issue, radiologist to discuss with patient's plant tour guide. -IR report findings: Tube pulled back slightly into LP calyx but still in collecting system. Ureter appears to be patent down to ileal conduit (probably why tube doesn't drain much). A few filling defects in collecting system characteristic of stone disease. Tube exchanged and repositioned. -Left nephrostomy tube exchanged 04/06 in IR, home health care will be arranged to assist patient with nephrostomy care. SANDI, on chronic kidney disease stage III -IVF for hydration -Avoid nephrotoxins -Renal function continues to improve. -Continue to monitor Anemia of chronic disease likely due to chronic kidney disease stage III Chronic. Appears to be at baseline. Hemoglobin 8.3 today and stable. DVT prophylaxis: Eliquis Discharge Planning: Possible discharge in the morning pending urine culture results. In addition, it is recommended that he still go to a nursing home facility which he is declining and opting for home health care. He understands this is not 24 /7 care and there will be risks of recurrent falls.
[2018-05-10] MEDS: Sod Chloride 0.9% Inj 1,000 ML IV.CONT SCH (03:35)
--- NOTE | 2018-05-10 08:45 | P.DS ---
Date of admission: 04/30/18 08:42 Primary care physician: UNKNOWN Anticipated date of discharge: 04/28/18 Brief History from admission: The patient is a 78-year-old male with a past medical history of obstructing renal stones requiring bilateral nephrostomy tube placement who is presenting to the hospital from a retirement facility after having a fall. The patient said that he was picking up a bottle of water that was on the ground and he fell down hard on his left knee. He said he has had severe pain in that left lower extremity after the fall. He was brought to the emergency department for evaluation. The patient had imaging and was cleared to go back to the retirement facility, however, the facility refused to take him back. Case management has been trying to get the patient back to a facility but as the patient has been unable to be placed it was decided to admit the patient to observation. The patient currently complains of some pain in his left knee. He is requesting Tylenol. The patient denies any other acute issues. He states that his left nephrostomy tube seems to be leaking all of the time. He says he follows up with a urologist regularly. He states that he no longer has any diarrhea. Patient update on day of discharge: Patient states that he feels great. There is no fevers or chills. He is still adamant about going home with home health care rather going to a retirement facility. He understands once again the risk of recurrent falls leading to fractures, head trauma, bleeds or even . He states he has neighbors that will check up on him. Will be also arrange for home health care. DS: Diagnosis - Discharge Diagnosis (1) Acute pyelonephritis Status: Chronic Diagnosis: Principal (2) Acute on chronic kidney failure Status: Chronic Diagnosis: Secondary (3) SANDI (acute kidney injury) Status: Chronic Diagnosis: Secondary (4) Anemia in chronic kidney disease (CKD) Status: Chronic Diagnosis: Secondary (5) Nephrostomy status Status: Chronic Diagnosis: Secondary DS: Medications - Discharge Medications Prescriptions: ampicillin 500 mg PO Q6HR 14 Days #56 cap apixaban [Eliquis] 2.5 mg PO BID #60 tab ciprofloxacin HCl 250 mg PO DAILY #14 tab dronabinol [Marinol] 2.5 mg PO BID #60 cap midodrine 5 mg PO Q8H #90 tab sennosides-docusate sodium [Senna Plus] 2 tab PO BID #120 tab vancomycin [Firvanq] 250 mg PO QID 30 Days #120 ea DS: Summary Hospital Course: Patient is a 78-year-old male with a past medical history of obstructing renal stones requiring bilateral nephrostomy tube placement who is presenting to the hospital from a retirement facility after having a fall Status post fall Pt complaining of LLE pain. Imaging negative. Cleared for discharge back to SNF , however, SNF did not accept pt back so he was admitted. -case management consult for placement, however patient adamantly refuses going to a retirement facility and wants to return home. -PT/OT provide during hospitalization -Pain control as needed, with bowel regimen -Discussed with patient the importance of participating in physical therapy. Patient also encouraged to get out of bed for meals. Patient states that he does have neighbors to help him. Home health care limitation visits discussed with the patient he understands and consequences of repeat fall including fractures, head trauma, and even . However, patient continues to refuse a retirement facility placement. Arrangements made for home health care for discharge planning during hospitalization. Complex UTI MDRO/ VRE. Consulted infectious disease, Dr. Ng during hospitalization, appreciate recommendations. ID recommends continuing Zyvox for VRE, Azactam for resistant Pseudomonas. The pt has bilateral nephrostomy tubes for obstructing kidney stones. Recently completed course of antibiotics. -Repeat UA with Shaw[place] and Pseudomonas species discussed with Dr. Ng , start Diflucan 100 mg 5 days. ID has also started patient back on IV is Azactam, repeat UA was negative. -Continue p.o. vancomycin for prophylaxis of C. difficile -Right nephrostomy tube exchanged. Radiologist spoke with Yann HUTCHINSON, nephrostomy tube exchanges, however urine is still draining to ileostomy conduit. 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 -IR report findings: Tube pulled back slightly into LP calyx but still in collecting system. Ureter appears to be patent down to ileal conduit (probably why tube doesn't drain much). A few filling defects in collecting system characteristic of stone disease. Tube exchanged and repositioned. -Left nephrostomy tube exchanged 04/06 in IR, home health care will be arranged to assist patient with nephrostomy care. SANDI, on chronic kidney disease stage III -IVF for hydration -Avoid nephrotoxins -Renal function continues to improve. -Continue to monitor Anemia of chronic disease likely due to chronic kidney disease stage III Chronic. Appears to be at baseline. Last hemoglobin 8.3 DVT prophylaxis: Eliquis - Time Spent with Patient Total time spent providing and/or coordinating discharge services: Less than 30 minutes - Quality: VTE Deep Vein Thrombosis/Pulmonary Embolism Present on Admission: No Exam Vital signs: Vital Signs 05/09/18 12:00 05/09/18 16:00 05/09/18 20:00 Temperature 98.1 F 97.3 F L 97.9 F Pulse Rate 69 89 52 L Respiratory Rate 18 17 17 Blood Pressure 138/64 138/71 135/74 Pulse Oximetry 97 99 96 05/10/18 00:42 05/10/18 04:53 Temperature 98.1 F 97.8 F Pulse Rate 107 H 109 H Respiratory Rate 18 17 Blood Pressure 139/78 136/85 Pulse Oximetry 97 96 Intake & Output 05/09/18 05/10/18 05/10/18 18:59 06:59 18:59 Intake Total 2550 / 2550 1680 / 1680 Output Total 1400 / 1400 750 / 750 Balance 1150 / 1150 930 / 930 Weight 67 kg Intake: IV 2100 / 2100 1200 / 1200 NS Inj 1,000 ML @ 100 mls/hr IV 2000 / 2000 1000 / 1000 .CONT .Q10H [facility] Rx#:[id number] Azactam Inj 1,000 MG In NS Inj 100 / 100 200 / 200 100 ML @ 200 mls/hr IV.SIG Q8H [facility] Rx#:[id number] Oral 450 / 450 480 / 480 Output: Urine Amount (Stoma) 1400 / 1400 750 / 750 Ileal Conduit Right 100 / 100 Nephrostomy Tube Left 725 / 725 400 / 400 Nephrostomy Tube Right 575 / 575 350 / 350 Other: Date of Last Bowel Movement 05/08/18 05/09/18 # Bowel Movements 2 1 Results Procedures completed during hospitalization: NONE - Impressions ITS Impressions Femur X-Ray 04/25/18 11:23 CONCLUSION: No acute bony findings Pelvis X-Ray 04/25/18 11:35 CONCLUSION: 1. No acute pelvis abnormality is identified. 2. Severe atherosclerotic disease. Ureteral Stent Placement 05/03/18 00:00 CONCLUSION: 1. Uncomplicated nephrostomy tube exchange as above. Existing catheter was pulled back into the lower pole calyx. 2. Multiple filling defects characteristic of renal calculi. These appear to be nonobstructing as contrast flows freely through the renal pelvis, down the ureter and into the ileal conduit. This may explain the minimal output from the nephrostomy tube. Nephrostomy Tube Change 05/06/18 00:00 CONCLUSION: Uncomplicated nephrostomy tube replacement as above. The previous tube was inadvertently dislodged during physical therapy earlier today. Discharge Plan - Discharge Disposition Patient Disposition: /Home Health Service - Discharge Condition Condition: Good - Discharge Order Discharge Orders: Discharge Order (Routine); Ordered 05/10/18 Ordered By: Janet Mata - Discharge Details Anticipated Discharge Date: 04/28/18 Discharge Comment: DC TO [facility] - Physicians Team Primary Care Provider: UNKNOWN, Attending Provider: Janet Mata Other Providers: Hansa Ac,Miguelito ; Tonny Ng MD ; [facility]
[2018-05-10] MEDS: Senna/Docusate Sodium 8.6/50 MG Tablet PO SCH (09:56)
[2018-05-10] MEDS: DRONABINOL 2.5 MG CAPSULE PO SCH (11:20)
== END 2018-05-10 12:02 ==
LOC: NEPD 10:46 → NEDA 10:46 → NEPHCDU 04-26 19:14 → N07 05-01 16:10
PROVIDERS: ADMIT Family Medicine; ATTEND Family Medicine

== ENCOUNTER 2018-05-10 20:43 | Observation (INO) ==
[2018-05-10] MEDS ORDERED: Acetaminophen 325 MG Tablet PO PRN (21:14)
--- NOTE | 2018-05-10 21:22 | ED ---
HPI General Chief complaint: Pie Bottomer Problem Stated complaint: voltage tester problem Time Seen by Provider: 05/10/18 20:50 History of Present Illness HPI narrative: 78-year-old male here by ambulance from home because his right nephrostomy tube is dislodged. Patient was discharged from the hospital today. 4 days ago the patient had his right nephrostomy tube replaced because it was obstructed. He has history of obstructing renal stones as well as an ileostomy. He otherwise has no complaints. Related Data Previous Rx's Medication Instructions Recorded dronabinol [Marinol] 2.5 mg PO BID cap 05/10/18 multivitamin with folic acid 1 tab PO DAILY tab 05/10/18 [Thera] Allergies Allergy/AdvReac Type Severity Reaction Status Date / Time crab Allergy Intermediate Rash Verified 05/10/18 20:49 Review of Systems ROS: all other systems reviewed are negative [facility] Social History Social History Substance History: No History of Abuse Second Hand Smoke Exposure: No Smoking Status: Former smoker How Often Do You Have a Drink Containing Alcohol: Monthly or less Recent Travel in [facility] within the Last 8 Weeks: No Recent Out of Country Travel within the Last 8 Weeks: No Immunization History Tetanus Immunization: Unsure Hx Influenza Vaccine This Season: Yes Exam Narrative Exam Narrative: GENERAL: Well-developed, well-nourished, comfortable, no apparent distress. SKIN: Focused skin assessment warm/dry. HEAD: Atraumatic. Normocephalic. EYES: Pupils equal and round. No scleral icterus. No injection or drainage. ENT: Mucous membranes pink and moist. NECK: Trachea midline. No JVD. CARDIOVASCULAR: Regular rate and rhythm. No murmur appreciated. RESPIRATORY: No accessory muscle use. Clear to auscultation. Breath sounds equal bilaterally. GASTROINTESTINAL: Abdomen soft, non-tender, nondistended. Hepatic and splenic margins not palpable. MUSCULOSKELETAL: No obvious deformities. No clubbing. No cyanosis. No edema. NEUROLOGICAL: Awake and alert. No obvious cranial nerve deficits. Motor grossly within normal limits. Normal speech. PSYCHIATRIC: Appropriate mood and affect; insight and judgment normal. Course Initial Documented Vital Signs Temperature 98.0 F 05/10/18 20:50 Pulse Rate 104 H 05/10/18 20:50 Respiratory Rate 18 05/10/18 20:50 Blood Pressure 128/91 H 05/10/18 20:50 Pulse Oximetry 97 05/10/18 20:50 Last Documented Vital Signs Temperature 98.0 F 05/10/18 20:50 Pulse Rate 104 H 05/10/18 20:50 Respiratory Rate 18 05/10/18 20:50 Blood Pressure 128/91 H 05/10/18 20:50 Pulse Oximetry 97 05/10/18 20:50 Medical Decision Making MDM Narrative Medical decision making narrative: This is a 78-year-old male with bilateral nephrostomy tubes who presents by ambulance from home after his right nephrostomy tube became completely dislodged. He has a tube with him and it appears to be intact, however it is completely dislodged. Plan is to admit the patient to observation to the main hospital where interventional radiology can replace this tube tomorrow morning. Patient is amenable to this plan. Case discussed with hospitalist Dr. Villa who will admit the patient to her service. Medical Screen Exam Complete: Yes Emergency Medical Condition: Yes Differential Diagnosis Differential Diagnosis: Dislodged nephrostomy tube Discharge Plan Discharge Disposition Patient Disposition: 30 Still Patient Discharge Condition Condition: Stable Discharge Details Diagnosis: Displacement of nephrostomy tube Physicians Team ED Provider: Tan Gamboa Rxs /Orders / Referrals /Forms Prescriptions: No Action dronabinol [Marinol] 2.5 mg Capsule 2.5 mg PO BID RF: 0 multivitamin with folic acid [Thera] 400 mcg Tablet 1 tab PO DAILY RF: 0 Status ED Status: With Doctor
[2018-05-10 21:36] LABS: Baso % (Auto) 0.2 % (0.0-2.0); Eos % (Auto) 0.5 % (0.0-4.0); Hematocrit 26.8 % (39.0-51.0); Hemoglobin 8.8 gm/dL (13.0-17.0); Lymph % (Auto) 11.6 % (9.0-44.0); Mean Corpuscular Hemoglobin 30.7 pg (27.0-34.0); Mean Platelet Volume 7.1 fL (7.0-11.0); Mono # (Auto) 0.5 th/mm3 (0.0-0.9); Neut # (Auto) 7.3 th/mm3 (1.8-7.7); Neut % (Auto) 81.7 % (16.0-70.0); Platelet Count 200 th/mm3 (150-450); Red Blood Count 2.88 mil/mm3 (4.50-5.90); Red Cell Distribution Width 17.3 % (11.6-17.2); White Blood Count 8.8 th/mm3 (4.0-11.0)
[2018-05-10 21:55] LABS: Potassium 4.2 meq/L (3.5-5.1)
[2018-05-10 21:57] LABS: Calcium 8.9 mg/dL (8.5-10.1)
[2018-05-10 21:58] LABS: Carbon Dioxide 18.5 meq/L (21.0-32.0)
[2018-05-10 22:00] LABS: Activated Partial Thrombo Time 30.6 sec (24.3-30.1); INR 1.1 Ratio; Prothrombin Time 11.4 sec (9.8-11.6)
--- NOTE | 2018-05-10 23:56 | P.HPIM ---
History of Present Illness Service: [facility] Primary Care Physician: [facility] Chief Complaint: nephrostomy dislodged History of Present Illness: 78-year-old male with a history of nephrostomy tube placement due to renal stones, COPD, hypertension, prostate cancer, CKD presented to the ED after having his right nephrostomy tube become dislodged. Patient states he was discharged from the hospital today and 4 days ago he had the right nephrostomy tube replaced because it was obstructed and since going home it has become dislodged. He states he sat down in his recliner and sat on the tube. He denies any chest pain, shortness of breath, fever or chills. 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 - Medical History Medical History: Medical History (Last Reviewed 05/11/18 @ 00:25 by EVANGELINA Gilmore) COPD (chronic obstructive pulmonary disease) H/O reduction of nasal fracture History of Clostridium difficile infection Kidney stones Nasal bones, closed fracture Prostate cancer Renal failure Subdural hematoma UTI (urinary tract infection) Hypotension Intertrochanteric fracture of left hip Parotid mass - Surgical History Surgical History: Surgical History (Last Reviewed 05/11/18 @ 00:25 by EVANGELINA Gilmore) History of urostomy Nephrostomy status - Family History Family History: Family History (Last Reviewed 05/11/18 @ 00:25 by EVANGELINA Gilmore) Other Osteoarthritis - Social History I have reviewed the patient's Social History: Yes - Tobacco History Second Hand Smoke Exposure: No Tobacco Use In Past 30 Days: No Smoking Status: Former smoker - Alcohol History How Often Do You Have a Drink Containing Alcohol: Monthly or less - Substance Use History Substance History: No History of Abuse - Travel History Recent Travel in the [place] Within the Last 8 Weeks: No Recent Travel Out of the Country Within the Last 8 Weeks: No - Immunization History Tetanus Immunization: Unsure Hx Influenza Vaccine This Season: Yes Medications and Allergies Active Medications: Active Medications Acetaminophen (Tylenol) 650 mg PO Q4H PRN PRN Reason: Temp > 100.4 Ondansetron HCl (Zofran Inj) 4 mg IV.PUSH Q6H PRN PRN Reason: NAUSEA OR VOMITING Sodium Chloride (Ns Flush) 2 ml IV.FLUSH PRN PRN PRN Reason: FLUSH AFTER USING IV ACCESS Allergies Allergy/AdvReac Type Severity Reaction Status Date / Time crab Allergy Intermediate Rash Verified 05/10/18 20:49 Exam Vital signs: Vital Signs 05/10/18 20:50 05/10/18 23:06 Temperature 98.0 F Pulse Rate 104 H 96 H Respiratory Rate 18 18 Blood Pressure 128/91 H 128/84 Pulse Oximetry 97 97 Intake & Output 05/10/18 05/10/18 05/11/18 06:59 18:59 06:59 Weight 70.307 kg Narrative: GENERAL: This is a well-nourished, well-developed patient, in no apparent distress. CARDIOVASCULAR: Regular rate and rhythm without murmurs, gallops, or rubs. RESPIRATORY: Clear to auscultation. Breath sounds equal bilaterally. No wheezes , rales, or rhonchi. GASTROINTESTINAL: Abdomen soft, non-tender, nondistended. Normal active bowel sounds MUSCULOSKELETAL: Extremities without clubbing, cyanosis, or edema. NEURO: Alert & Oriented x4 to person, place, time, situation. Moves all ext x4 Results - Labs CBC & Chem 7: 05/10/18 21:30 05/10/18 21:30 Labs: Short CBC 05/10/18 Range/Units 21:30 WBC 8.8 (4.0-11.0) th/mm3 Hgb 8.8 L (13.0-17.0) gm/dL Hct 26.8 L (39.0-51.0) % Plt Count 200 D (150-450) th/mm3 BMP 05/10/18 21:30 Sodium 142 Potassium 4.2 Chloride 113 H Carbon Dioxide 18.5 L BUN 34 H Creatinine 2.30 H Calcium 8.9 D Caprini VTE Risk Assessment Caprini VTE Risk Assessment: No/Low Risk (score <= 1) Caprini Risk Assessment Model: Point Value = 1 Point Value = 2 Point Value = 3 Point Value = 5 Age 41-60 Minor surgery BMI > 25 kg/m2 Swollen legs Varicose veins or History of unexplained or recurrent spontaneous Oral contraceptives or hormone replacement Sepsis (< 1 month) Serious lung disease, including pneumonia (< 1 month) Abnormal pulmonary function Acute myocardial infarction Congestive heart failure (< 1 month) History of inflammatory bowel disease Medical patient at bed rest Age 61-74 Arthroscopic surgery Major open surgery (> 45 min) Laparoscopic surgery (> 45 min) Malignancy Confined to bed (> 72 hours) Immobilizing plaster cast Central venous access Age >= 75 History of VTE Family history of VTE Factor V Leiden Prothrombin [id number] Lupus anticoagulant Anticardiolipin antibodies Elevated serum homocysteine Heparin-induced thrombocytopenia Other congenital or acquired thrombophilia Stroke (< 1 month) Elective arthroplasty Hip, pelvis, or leg fracture Acute spinal cord injury (< 1 month) Prophylaxis Regimen: Total Risk Factor Score Risk Level Prophylaxis Regimen 0-1 Low Early ambulation 2 Moderate Order ONE of the following: *Sequential Compression Device (SCD) *Heparin 5000 units SQ BID 3-4 Higher Order ONE of the following medications: *Heparin 5000 units SQ TID *Enoxaparin/Lovenox 40 mg SQ daily (WT < 150 kg, CrCl > 30 mL/min) *Enoxaparin/Lovenox 30 mg SQ daily (WT < 150 kg, CrCl > 10-29 mL/min) *Enoxaparin/Lovenox 30 mg SQ BID (WT < 150 kg, CrCl > 30 mL/min) AND/OR *Sequential Compression Device (SCD) 5 or more Highest Order ONE of the following medications: *Heparin 5000 units SQ TID (Preferred with Epidurals) *Enoxaparin/Lovenox 40 mg SQ daily (WT < 150 kg, CrCl > 30 mL/min) *Enoxaparin/Lovenox 30 mg SQ daily (WT < 150 kg, CrCl > 10-29 mL/min) *Enoxaparin/Lovenox 30 mg SQ BID (WT < 150 kg, CrCl > 30 mL/min) AND *Sequential Compression Device (SCD) Assessment and Plan - Plan Nephrostomy tube dislodged, right Consult interventional radiology for replacement COPD, chronic, not in exacerbation Duo nebs as needed Chronic kidney disease, stage III, creatinine baseline Resume home medications Avoid nephrotoxins Anemia, chronic, hemoglobin 8.8, baseline Cont to monitor DVT prophylaxis: SCDs Discussed Condition With: Patient and RN
[2018-05-11 00:16] VITALS: RESP 16
[2018-05-11 08:16] VITALS: BP 142/95; PULSE 58; O2SAT 98
[2018-05-11] MEDS ORDERED: DRONABINOL 2.5 MG CAPSULE PO SCH (09:00)
[2018-05-11 09:05] VITALS: TEMP 98.5
[2018-05-11] MEDS ORDERED: fentaNYL Citrate Inj 100 MCG/2 ML Ampul ONE (09:35)
--- NOTE | 2018-05-11 10:19 | P.RAD ---
Post Procedure Progress Note - Pre Procedure Diagnosis (1) Obstructive uropathy - Post Procedure Diagnosis (1) Obstructive uropathy - Procedure Information Procedure Date: 05/11/18 Supervising Radiologist: Rancho Fofana MD Estimated blood loss (mL): 0 Anesthesia: Local, Conscious Sedation - Plan of Activity Patient to Unit: [facility]OPU Patient Condition: Fair Additional Comments: Right nephrostomy tube replaced through the existing tract without difficulty. Full dictated report to follow. See PACS Report for procedural detail/treatment.
--- NOTE | 2018-05-11 12:40 | P.PNIM ---
Subjective Interval history: Nursing denies any deterioration since last night. Patient now is back from nephrostomy tube replacement. Wants to go home. Physical Exam Vital signs: Vital Signs 05/10/18 20:50 05/10/18 23:06 05/11/18 00:00 Temperature 98.0 F 97.7 F Pulse Rate 104 H 96 H 94 H Respiratory Rate 18 18 16 Blood Pressure 128/91 H 128/84 148/105 H Pulse Oximetry 97 97 100 05/11/18 03:50 05/11/18 08:15 05/11/18 09:04 Temperature 97.8 F 98.5 F Pulse Rate 116 H 58 L Respiratory Rate 16 16 Blood Pressure 149/106 H 142/95 H Pulse Oximetry 100 98 Intake & Output 05/10/18 05/11/18 05/11/18 18:59 06:59 18:59 Weight 70.307 kg Other: Date of Last Bowel Movement 05/11/18 05/11/18 Weight On Admission 70.307 kg Narrative: Nephrostomy tube in place. Unlabored breathing Awake and alert Results - Labs CBC & Chem 7: 05/10/18 21:30 05/10/18 21:30 Laboratory Results - last 24 hr 05/10/18 05/10/18 05/10/18 21:30 21:30 21:30 CBC w Diff Auto diff final WBC 8.8 RBC 2.88 L Hgb 8.8 L Hct 26.8 L MCV 93.0 MCH 30.7 MCHC 33.0 RDW 17.3 H Plt Count 200 D MPV 7.1 Neut % (Auto) 81.7 H Lymph % (Auto) 11.6 Kimble % (Auto) 6.0 Eos % (Auto) 0.5 Baso % (Auto) 0.2 Neut # (Auto) 7.3 Lymph # (Auto) 1.0 Kimble # (Auto) 0.5 Eos # (Auto) 0.0 Baso # (Auto) 0.0 WBC Differential . Differential Comment . PT 11.4 INR 1.1 APTT 30.6 H Sodium 142 Potassium 4.2 Chloride 113 H Carbon Dioxide 18.5 L Anion Gap 11 BUN 34 H Creatinine 2.30 H Estimated GFR 28 L Random Glucose 84 Calcium 8.9 D Lipase 145 Assessment and Plan - Plan Nephrostomy tube dislodged, right s/p replaced COPD, chronic, not in exacerbation Duo nebs as needed Chronic kidney disease, stage III, creatinine baseline home medications Anemia, chronic, hemoglobin 8.8, baseline Cont to monitor Patient likely to go home today.
--- NOTE | 2018-05-12 08:44 | IR ---
EXAM DATE: 05/11/2018 10:47 AM EDT AGE/SEX: 78 years / Male INDICATIONS: Patient presents with a dislodged right nephrostomy tube in need of a tube exchanged. CLINICAL DATA: This is the patient's initial encounter. Patient reports that signs and symptoms have been present for 1 day and indicates a pain score of 0/10. MEDICAL/SURGICAL HISTORY: Chronic obstructive pulmonary disease. Nasal fracture, Clostridium di fficile infection, kidney stones, Prostate cancer, Renal failure, Subdural hematoma, UTI, Hypotension , Intertrochanteric fracture of left hip, Parotid mass. . Urostomy, Nephrostomy. [place] [facility] [place]AST, 04/12/2018. . FLUORO TIME (min): 4.4 IMAGE SERIES: 1 SEDATION TIME (min): 20 MEDICATION(S): 50mcg fentanyl (Sublimaze) IV 1mg lorazepam (Ativan) IV DEVICE(S): 10 Colombian nephrostomy catheter 25cm PROCEDURE : 1. Replacement of a nephrostomy tube through the existing tract.. 2. Antegrade percutaneous pyelogram. 3. Percutaneous nephrostomy placement. 4. Conscious sedation with continuous EKG and oximetry monitoring. The risks, benefits and alternatives to the procedure were explained and verbal and written consent w as obtained. The site was prepped in sterile fashion. Full sterile technique was used, including ca p, mask, sterile gloves and gown and a large sterile sheet. Hand hygiene and 2% chlorhexidine and/or betadine/alcohol prep was utilized per protocol for cutaneous antisepsis. Sterile gel and sterile probe cover were utilized for ultrasound guidance. The skin and subcutaneous tissues were infiltrate d with local anesthetic solution. With ultrasound and fluoroscopic guidance the selected kidney was was evaluated. The tract at the ski n surface was recannulated with a 4 Colombian dilator and a 0.035 angle Glidewire. This combination was eventually manipulated down into the collecting system. The Glidewire was manipulated down the right ureter. The tract was dilated. A 10 Colombian nephrostomy tube was advanced over the wire in place withi n the kidney without difficulty. Antegrade pyelogram confirmed the tube in good position. There is a large filling defect within the r enal pelvis presumably representing the patient's renal stone. Conscious sedation was performed with the prescribed dosages and duration as above in the presence of an independent trained radiology nurse to assist in the monitoring of the patient. EKG and oximetry remained stable throughout the procedure. The patient tolerated the procedure well and there were n o complications. The patient was sent to post anesthesia recovery in stable condition. CONCLUSION: 1. Uncomplicated nephrostomy tube replacement through an existing tract as above. The patient tolera palomo the procedure well. As above. Electronically signed by: Rancho Fofana MD 05/12/2018 8:43 AM EDT
== END 2018-05-11 14:33 | disposition home or self-care (01) ==
LOC: PHEDA 20:43 → PHED 20:43 → PHEDA 23:12 → NEPGCP 23:42
PROVIDERS: ADMIT Hospitalist; ATTEND Hospitalist

== ENCOUNTER 2018-05-30 17:48 | Inpatient (IN) ==
[2018-05-30] MEDS ORDERED: Sod Chloride 0.9% Inj 1,000 ML IV.CONT SCH (19:15)
--- NOTE | 2018-05-30 19:29 | ED ---
HPI General Chief complaint: Medical Clearance Stated complaint: General Medical Time Seen by Provider: 05/30/18 19:05 Source: patient Limitations: altered mental status History of Present Illness HPI narrative: The patient is a 78 year old male who presents to the [facility] emergency department with a history of worsening generalized weakness and diarrhea that began 3-4 weeks ago. The patient reports that he had his home health care provider come out to see him earlier today and she called the ambulance services as the patient was noted to be covered in feces and unable to care for himself. Patient reports that her home health provider comes out 2- 3 times per week. The patient has a history of bladder cancer with bilateral nephrostomy tubes in place. The patient also has a urostomy with urostomy bag in place. The patient reports that he has diarrhea 4-5 times per day. He denies having any blood in his stool or black or tarry stools. He reports that he has been diagnosed with C. difficile colitis in the past. He denies having any abdominal pain. He denies having any nausea or vomiting. He denies having any chest pain, chest pressure, or shortness of breath. He does report having pain along the buttock area. According to the nursing staff and ambulance services the patient has skin breakdown along his backside. The patient denies having any known recent fevers. On review of systems otherwise, the patient denies having any cough, congestion, neck pain, new urinary symptoms, or focal neurologic symptoms. Related Data Home Medications Medication Instructions Recorded Confirmed apixaban [Eliquis] 2.5 mg PO BID 05/15/18 05/30/18 dronabinol 2.5 mg PO AC LUNCH 05/15/18 05/30/18 dronabinol [Marinol] 2.5 mg PO AC BREAKFAST 05/15/18 05/30/18 midodrine 5 mg PO TID 05/15/18 05/30/18 pilocarpine HCl 5 mg PO BID 05/15/18 05/30/18 Previous Rx's Medication Instructions Recorded multivitamin with folic acid 1 tab PO DAILY tab 05/10/18 [Thera] Allergies Allergy/AdvReac Type Severity Reaction Status Date / Time crab Allergy Intermediate Rash Verified 05/30/18 18:33 Review of Systems ROS: all other systems reviewed are negative [facility] Medical History Medical History COPD (chronic obstructive pulmonary disease) (Acute) H/O reduction of nasal fracture (Acute) History of Clostridium difficile infection (Acute) Kidney stones (Acute) Nasal bones, closed fracture (Acute) Prostate cancer (Acute) Renal failure (Acute) Subdural hematoma (Acute) UTI (urinary tract infection) (Acute) Hypotension (Chronic) Intertrochanteric fracture of left hip (Chronic) Parotid mass (Chronic) Surgical History Surgical History History of urostomy (Acute) Nephrostomy status (Acute) Family History Family History Other Osteoarthritis Social History Social History Substance History: No History of Abuse Second Hand Smoke Exposure: No Smoking Status: Former smoker How Often Do You Have a Drink Containing Alcohol: Monthly or less Recent Travel in [facility] within the Last 8 Weeks: No Recent Out of Country Travel within the Last 8 Weeks: No Immunization History Tetanus Immunization: Unsure Hx Influenza Vaccine This Season: No Exam Const General: cooperative, no acute distress and well developed Nutritional Appearance: underweight Orientation: alert, awake and oriented x3 HENMT Head: normocephalic and atraumatic Nose: no nasal discharge and no epistaxis Mouth: other (Tacky mucous membranes.) Eyes Sclera: normal sclerae Pupils: PERRL EOM: EOM intact bilaterally Neck Neck: no meningeal signs, trachea midline and no JVD Resp Effort & Inspection: no use of accessory muscles Auscultation: clear to auscultation bilaterally Cardio Rate: regular rate Rhythm: regular rhythm Heart Sounds: no murmurs GI Inspection: non-distended and other (The patient has a urostomy bag in place. No signs of infection at the site.) Palpation: soft, no hepatosplenomegaly and nontender Auscultation: normal bowel sounds Back/Spine/Pelvis Back: no CVA tenderness and erythema (Along the sacrum and lower buttock area bilaterally with superficial skin breakdown. The patient reports having tenderness on palpation. The patient has nephrostomy tubes in place bilaterally. The patient has bandaging in place bilaterally that is covered in feces. The patient's areas will be cleaned. The patient also arrives in a soiled diaper. The stool is noted to be brown in color.) Thoracic/Lumbar Spine: No thoracic spinal tenderness and No lumbar spinal tenderness Skin General: dry skin (warm) Neuro General: alert, awake and oriented x3 Cranial Nerves: CN's II-XI intact bilaterally Speech: speech normal Motor: no movement abnormalities noted and other (Strength is 4/5 in all 4 extremities. No focal deficits. The patient reports that normally he gets around in his house without any assistive devices, however when he is outdoors he either uses a cane or a walker.) Sensory Exam: no sensory deficits noted Extrem General: normal to inspection (2+ pulses in all 4 extremities.), no calf tenderness, no clubbing, no cyanosis and no edema Psych Mood: congruent mood Affect: normal affect Judgment: judgment good Course Consultations Consultation #1: The patient's case including history, pertinent physical examination findings, and laboratory studies were discussed with Dr. Villa. It was agreed that the patient would be admitted to the hospitalist service. Initial Documented Vital Signs Temperature 97.6 F 05/30/18 18:33 Pulse Rate 78 05/30/18 18:33 Respiratory Rate 20 05/30/18 18:33 Blood Pressure 101/66 05/30/18 18:33 Pulse Oximetry 95 05/30/18 18:33 Last Documented Vital Signs Temperature 97.8 F 05/31/18 15:21 Pulse Rate 80 05/31/18 15:21 Respiratory Rate 12 05/31/18 15:21 Blood Pressure 100/67 05/31/18 15:21 Pulse Oximetry 100 05/31/18 15:21 Medical Decision Making MDM Narrative Medical decision making narrative: During the course of the patient's emergency department visit, the patient's history, examination, and differential diagnosis were reviewed with the patient. The patient was placed on a surveillance system monitor with oximetry and frequent blood pressure monitoring. The patient had IV access obtained and blood work sent for analysis. A diagnostic evaluation was started regarding the patient's generalized weakness, diarrhea, and inability to care for himself. The patient reports that he does live at home alone. The patient was initially provided normal saline IV fluids of 500 mL bolus x1. The patient was started on antibiotics for what appeared to be a cellulitis involving the sacrum and buttock area. The patient's diagnostic studies are remarkable for a white count of 14.3, hemoglobin 11.8, platelets 243 with 81.9 neutrophils, see, PT PTT within normal limits, chemistries remarkable for a chloride of 108, bicarb is 20.7, BUN 77, creatinine 3.44 consistent with an acute kidney injury as the patient's last creatinine at this facility was 2.3. Albumin 2.8, lipase 138, urinalysis shows large leukocyte esterase 68 WBCs occasional bacteria, culture indicated. CHEST X-RAY showed no evidence of acute cardiopulmonary disease. The patient will be admitted to the hospital for generalized weakness, cellulitis, and diarrhea with acute kidney injury. Stool studies have been ordered. The patient's results were discussed with the patient, including the plan of care. I explained that further testing and/ or monitoring is indicated based on the patient's history, examination, and/ or laboratory findings. Therefore, I recommended admission for additional evaluation. The patient expressed understanding and was agreeable with this plan. The patient was admitted to the hospital in guarded condition and sent to a bed under the care of the [facility] service. Medical Screen Exam Complete: Yes Emergency Medical Condition: Yes Differential Diagnosis Differential Diagnosis: C. difficile colitis, versus malabsorption syndrome causing diarrhea, versus dehydration, versus electrolyte derangements, versus acute renal failure Medical Records Medical records reviewed: Yes I reviewed the patient's medical records. Lab Data Lab results reviewed: Yes I reviewed the patient's lab results. Result diagrams: 05/31/18 05:20 05/31/18 05:20 Lab Results 05/30/18 05/30/18 05/30/18 Range/Units 20:00 20:00 20:00 WBC 14.3 H (4.0-11.0) th/mm3 RBC 3.68 L (4.50-5.90) mil/mm3 Hgb 11.8 L (13.0-17.0) gm/dL Hct 35.0 L (39.0-51.0) % MCV 95.1 (80.0-100.0) fL MCH 32.0 (27.0-34.0) pg MCHC 33.6 (32.0-36.0) % RDW 16.9 (11.6-17.2) % Plt Count 243 (150-450) th/mm3 MPV 9.2 (7.0-11.0) fL Neut % (Auto) 81.9 H (16.0-70.0) % Lymph % (Auto) 10.4 (9.0-44.0) % [place] % (Auto) 6.1 (0.0-8.0) % Eos % (Auto) 1.3 (0.0-4.0) % Baso % (Auto) 0.3 (0.0-2.0) % Neut # (Auto) 11.7 H (1.8-7.7) th/mm3 Lymph # (Auto) 1.5 (1.0-4.8) th/mm3 [place] # (Auto) 0.9 (0.0-0.9) th/mm3 Eos # (Auto) 0.2 (0.0-0.4) th/mm3 Baso # (Auto) 0.0 (0.0-0.2) th/mm3 WBC Differential . Differential Comment Auto diff final PT 11.1 (9.8-11.6) sec INR 1.1 Ratio APTT 25.0 (24.3-30.1) sec Sodium (136-145) meq/L Potassium (3.5-5.1) meq/L Chloride (98-107) meq/L Carbon Dioxide (21.0-32.0) meq/L Anion Gap (5-15) meq/L BUN (7-18) mg/dL Creatinine (0.60-1.30) mg/dL Estimated GFR (>89) mL/min Random Glucose (74-106) mg/dL Lactic Acid (0.4-2.0) mmol/L Calcium (8.5-10.1) mg/dL Total Bilirubin (0.2-1.0) mg/dL AST (15-37) U/L ALT (12-78) U/L Alkaline Phosphatase (45-117) U/L Total Creatine Kinase 45 (39-308) U/L Troponin I Less than 0.02 L (0.02-0.05) ng/mL Total Protein (6.4-8.2) g/dL Albumin (3.4-5.0) g/dL Lipase (73-393) U/L Urine Color (Yellw/Straw) Urine Clarity (Clear) Urine pH (5.0-8.5) Ur Specific [place] (1.002-1.035) Urine Protein (Neg-Trace) mg/dL Urine Glucose (UA) (Negative) mg/dL Urine Ketones (Negative) mg/dL Urine Occult Blood (Negative) Urine Nitrate (Negative) Urine Bilirubin (Negative) Urine Urobilinogen (Less than 2) mg/dL Ur Leukocyte Esterase (Negative) Urine RBC (0-3) /hpf Urine WBC (0-5) /hpf Ur Squamous Epith Cells (0-5) /hpf Amorphous Sediment (None) /hpf Urine Bacteria (None) /hpf Urine Mucus (Occasional) /lpf Micro UA Comment Ur Microscopic Review Urine Culture Comments Stool C.difficile Ag (Negative) Stool C.difficile Toxin (Negative) Stl C.difficile DNA Amp (Negative) St C. diff Tox Epid 027 (Negative) 05/30/18 05/30/18 05/30/18 Range/Units 20:00 20:11 23:15 WBC (4.0-11.0) th/mm3 RBC (4.50-5.90) mil/mm3 Hgb (13.0-17.0) gm/dL Hct (39.0-51.0) % MCV (80.0-100.0) fL MCH (27.0-34.0) pg MCHC (32.0-36.0) % RDW (11.6-17.2) % Plt Count (150-450) th/mm3 MPV (7.0-11.0) fL Neut % (Auto) (16.0-70.0) % Lymph % (Auto) (9.0-44.0) % [place] % (Auto) (0.0-8.0) % Eos % (Auto) (0.0-4.0) % Baso % (Auto) (0.0-2.0) % Neut # (Auto) (1.8-7.7) th/mm3 Lymph # (Auto) (1.0-4.8) th/mm3 [place] # (Auto) (0.0-0.9) th/mm3 Eos # (Auto) (0.0-0.4) th/mm3 Baso # (Auto) (0.0-0.2) th/mm3 WBC Differential Differential Comment PT (9.8-11.6) sec INR Ratio APTT (24.3-30.1) sec Sodium 139 (136-145) meq/L Potassium 4.7 (3.5-5.1) meq/L Chloride 108 H (98-107) meq/L Carbon Dioxide 20.7 L (21.0-32.0) meq/L Anion Gap 10 (5-15) meq/L BUN 77 H (7-18) mg/dL Creatinine 3.44 H (0.60-1.30) mg/dL Estimated GFR 17 L (>89) mL/min Random Glucose 90 (74-106) mg/dL Lactic Acid 1.8 (0.4-2.0) mmol/L Calcium 8.7 (8.5-10.1) mg/dL Total Bilirubin 0.4 (0.2-1.0) mg/dL AST 20 (15-37) U/L ALT 20 (12-78) U/L Alkaline Phosphatase 85 (45-117) U/L Total Creatine Kinase (39-308) U/L Troponin I (0.02-0.05) ng/mL Total Protein 7.1 (6.4-8.2) g/dL Albumin 2.8 L (3.4-5.0) g/dL Lipase 138 (73-393) U/L Urine Color (Yellw/Straw) Urine Clarity (Clear) Urine pH (5.0-8.5) Ur Specific [place] (1.002-1.035) Urine Protein (Neg-Trace) mg/dL Urine Glucose (UA) (Negative) mg/dL Urine Ketones (Negative) mg/dL Urine Occult Blood (Negative) Urine Nitrate (Negative) Urine Bilirubin (Negative) Urine Urobilinogen (Less than 2) mg/dL Ur Leukocyte Esterase (Negative) Urine RBC (0-3) /hpf Urine WBC (0-5) /hpf Ur Squamous Epith Cells (0-5) /hpf Amorphous Sediment (None) /hpf Urine Bacteria (None) /hpf Urine Mucus (Occasional) /lpf Micro UA Comment Ur Microscopic Review Urine Culture Comments Stool C.difficile Ag Positive H (Negative) Stool C.difficile Toxin Negative (Negative) Stl C.difficile DNA Amp Positive H (Negative) St C. diff Tox Epid 027 Negative (Negative) 10/03/18 10/03/18 10/03/18 Range/Units 03:20 05:20 05:20 WBC 9.6 (4.0-11.0) th/mm3 RBC 3.50 L (4.50-5.90) mil/mm3 Hgb 10.9 L (13.0-17.0) gm/dL Hct 33.9 L (39.0-51.0) % MCV 97.0 (80.0-100.0) fL MCH 31.2 (27.0-34.0) pg MCHC 32.2 (32.0-36.0) % RDW 17.2 (11.6-17.2) % Plt Count 247 (150-450) th/mm3 MPV 9.0 (7.0-11.0) fL Neut % (Auto) 78.6 H (16.0-70.0) % Lymph % (Auto) 13.5 (9.0-44.0) % [place] % (Auto) 5.5 (0.0-8.0) % Eos % (Auto) 2.0 (0.0-4.0) % Baso % (Auto) 0.4 (0.0-2.0) % Neut # (Auto) 7.5 (1.8-7.7) th/mm3 Lymph # (Auto) 1.3 (1.0-4.8) th/mm3 [place] # (Auto) 0.5 (0.0-0.9) th/mm3 Eos # (Auto) 0.2 (0.0-0.4) th/mm3 Baso # (Auto) 0.0 (0.0-0.2) th/mm3 WBC Differential . Differential Comment Auto diff final PT (9.8-11.6) sec INR Ratio APTT (24.3-30.1) sec Sodium 145 (136-145) meq/L Potassium 4.4 (3.5-5.1) meq/L Chloride 114 H (98-107) meq/L Carbon Dioxide 20.4 L (21.0-32.0) meq/L Anion Gap 11 (5-15) meq/L BUN 66 H (7-18) mg/dL Creatinine 3.17 H (0.60-1.30) mg/dL Estimated GFR 19 L (>89) mL/min Random Glucose 97 (74-106) mg/dL Lactic Acid (0.4-2.0) mmol/L Calcium 7.8 L D (8.5-10.1) mg/dL Total Bilirubin (0.2-1.0) mg/dL AST (15-37) U/L ALT (12-78) U/L Alkaline Phosphatase (45-117) U/L Total Creatine Kinase (39-308) U/L Troponin I (0.02-0.05) ng/mL Total Protein (6.4-8.2) g/dL Albumin (3.4-5.0) g/dL Lipase (73-393) U/L Urine Color Amy (Yellw/Straw) Urine Clarity Cloudy H (Clear) Urine pH 7.0 (5.0-8.5) Ur Specific [place] 1.013 (1.002-1.035) Urine Protein 100 H (Neg-Trace) mg/dL Urine Glucose (UA) Negative (Negative) mg/dL Urine Ketones Negative (Negative) mg/dL Urine Occult Blood Moderate H (Negative) Urine Nitrate Negative (Negative) Urine Bilirubin Negative (Negative) Urine Urobilinogen Less than 2 (Less than 2) mg/dL Ur Leukocyte Esterase Large H (Negative) Urine RBC 3 (0-3) /hpf Urine WBC 68 H (0-5) /hpf Ur Squamous Epith Cells 1 (0-5) /hpf Amorphous Sediment Rare H (None) /hpf Urine Bacteria Occasional H (None) /hpf Urine Mucus Few H (Occasional) /lpf Micro UA Comment Culture indicated Ur Microscopic Review Not Reportable Urine Culture Comments Culture indicated Stool C.difficile Ag (Negative) Stool C.difficile Toxin (Negative) Stl C.difficile DNA Amp (Negative) St C. diff Tox Epid 027 (Negative) Imaging Data Radiologist's impression: Chest X-Ray 05/30/18 19:05 CONCLUSION: No evidence of acute cardiopulmonary disease. Discharge Plan Discharge Disposition Patient Disposition: 30 Still Patient Discharge Details Diagnosis: Generalized weakness, Acute kidney injury, Diarrhea, Cellulitis Physicians Team ED Provider: Maria Guadalupe Randle Primary Care Provider: [facility],Physician [place] Attending Provider: Prakash Smith Other Providers: Hansa Ac,Agency Discharge Interventions Interventions: ED Discharge Assessment Last Done: 05/31/18 06:38 Vital Signs Last Done: 05/30/18 18:39 Status ED Status: Left Department Discharge Information Discharge Date/Time: 05/31/18 06:38
--- NOTE | 2018-05-30 20:55 | XR ---
EXAM DATE: 05/30/2018 7:05 PM EDT AGE/SEX: 78 years / Male INDICATIONS: Cough. CLINICAL DATA: This is the patient's initial encounter. Patient reports that signs and symptoms have been present for 1 day and indicates a pain score of 3/10. MEDICAL/SURGICAL HISTORY: None. . Nephrostomy, colostomy COMPARISON: C, CHEST 1V SINGLE AP, 05/15/2018. . FINDINGS: A single AP view of the chest demonstrates the lungs to be symmetrically aerated without evidence of mass, infiltrate or effusion. The cardiomediastinal contours are unremarkable. Osseous structures a re intact. CONCLUSION: No evidence of acute cardiopulmonary disease. Electronically signed by: Jose Em MD 05/30/2018 8:53 PM EDT
[2018-05-30 21:05] LABS: Baso % (Auto) 0.3 % (0.0-2.0); Eos # (Auto) 0.2 th/mm3 (0.0-0.4); Eos % (Auto) 1.3 % (0.0-4.0); Hemoglobin 11.8 gm/dL (13.0-17.0); Lymph # (Auto) 1.5 th/mm3 (1.0-4.8); Lymph % (Auto) 10.4 % (9.0-44.0); Mean Corpuscular HGB Conc 33.6 % (32.0-36.0); Mean Corpuscular Volume 95.1 fL (80.0-100.0); Mean Platelet Volume 9.2 fL (7.0-11.0); Mono # (Auto) 0.9 th/mm3 (0.0-0.9); Mono % (Auto) 6.1 % (0.0-8.0); Neut # (Auto) 11.7 th/mm3 (1.8-7.7); Neut % (Auto) 81.9 % (16.0-70.0); Platelet Count 243 th/mm3 (150-450); Red Blood Count 3.68 mil/mm3 (4.50-5.90); Red Cell Distribution Width 16.9 % (11.6-17.2); White Blood Count 14.3 th/mm3 (4.0-11.0)
[2018-05-30 21:19] LABS: Alanine Aminotransferase 20 U/L (12-78)
[2018-05-30 21:20] LABS: INR 1.1 Ratio; Prothrombin Time 11.1 sec (9.8-11.6)
[2018-05-30 21:21] LABS: Alkaline Phosphatase 85 U/L (45-117); Total Protein 7.1 g/dL (6.4-8.2)
[2018-05-30 21:28] LABS: Albumin 2.8 g/dL (3.4-5.0); Anion Gap 10 meq/L (5-15); Aspartate Aminotransferase 20 U/L (15-37); Blood Urea Nitrogen 77 mg/dL (7-18); Calcium 8.7 mg/dL (8.5-10.1); Carbon Dioxide 20.7 meq/L (21.0-32.0); Chloride 108 meq/L (98-107); Creatine Kinase 45 U/L (39-308); Glomerular Filtration Rate 17 mL/min (>89); Glucose,Random 90 mg/dL (74-106); Lipase 138 U/L (73-393); Sodium 139 meq/L (136-145)
[2018-05-30 21:29] LABS: Potassium 4.7 meq/L (3.5-5.1)
[2018-05-30] MEDS ORDERED: Sodium Chlor 0.9% Inj 500 ML IV.SIG ONE (22:18)
[2018-05-30] MEDS ORDERED: Vancomycin Inj 1 GM/200 ML PIGGYBACK IV.SIG ONE (22:19)
[2018-05-30] MEDS ORDERED: Piperacil/Tazo 3.375 GM Premix 50 ML IV.SIG ONE (22:19)
[2018-05-30] MEDS ORDERED: Vancomycin Inj 1,000 MG in Sodium Chlor 0.9% Inj 250 ML IV.SIG ONE (22:30)
[2018-05-30] MEDS ORDERED: Bisacodyl 10 MG Supp RECTAL PRN (23:38)
[2018-05-30] MEDS ORDERED: Acetaminophen 325 MG Tablet PO PRN (23:38)
--- NOTE | 2018-05-30 23:49 | P.HP ---
History of Present Illness Service: [facility] Primary Care Physician: [facility] History of Present Illness: 78-year-old male with past medical history significant for bladder cancer status post urostomy and bilateral nephrostomy tubes, COPD, history of prostate cancer, chronic kidney disease and hypotension presents to the emergency department for the evaluation of diarrhea times 1 month. He endorses accompanying generalized weakness. His home health care provider came to see him earlier today and called EMS as the patient was covered in feces and unable to care for himself. He states he has been having diarrhea approximately 4-5 times per day. Denies any bloody or tarry stools. Has a history of C. difficile. Denies any chest pain or shortness of breath. No abdominal pain. No nausea/vomiting/diarrhea. No fever/chills. No lateralizing signs/symptoms. Inpatient Certification: I certify that the inpatient services were ordered in accordance with Medicare regulations governing the order. This includes certification that hospital inpatient services are reasonable and necessary and in the case of services not specified as inpatient-only under 42 CFR 419.22(n), that they are appropriately provided as inpatient services in accordance to with the 2-midnight benchmark under 43 CFR 412.3(e) 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 - Medical History Medical History: Medical History (Last Reviewed 05/30/18 @ 23:43 by Lissette Villa MD) COPD (chronic obstructive pulmonary disease) H/O reduction of nasal fracture History of Clostridium difficile infection Kidney stones Nasal bones, closed fracture Prostate cancer Renal failure Subdural hematoma UTI (urinary tract infection) Hypotension Intertrochanteric fracture of left hip Parotid mass - Surgical History Surgical History: Surgical History (Last Updated 05/30/18 @ 23:43 by Lissette Villa MD) History of parotidectomy History of urostomy Nephrostomy status - Family History Family History: Family History (Last Updated 05/30/18 @ 23:43 by Lissette Villa MD) Other Coronary artery disease Osteoarthritis - Tobacco History Second Hand Smoke Exposure: No Smoking Status: Former smoker - Alcohol History How Often Do You Have a Drink Containing Alcohol: Monthly or less - Substance Use History Substance History: No History of Abuse - Travel History Recent Travel in the [place] Within the Last 8 Weeks: No Recent Travel Out of the Country Within the Last 8 Weeks: No - Immunization History Tetanus Immunization: Unsure Hx Influenza Vaccine This Season: No Medications and Allergies Active Medications: Active Medications Sodium Chloride (Ns Inj) 1,000 mls @ 125 mls/hr IV.CONT .Q8H TRAVIS Stop: 05/31/18 03:14 Last Admin: 05/30/18 20:20 Dose: 125 mls/hr Sodium Chloride (Ns Flush) 2 ml IV.FLUSH PRN PRN PRN Reason: FLUSH AFTER USING IV ACCESS Allergies Allergy/AdvReac Type Severity Reaction Status Date / Time crab Allergy Intermediate Rash Verified 05/30/18 18:33 Home Medications Medication Instructions Recorded Confirmed Type apixaban [Eliquis] 2.5 mg PO BID 05/15/18 05/30/18 History dronabinol 2.5 mg PO AC LUNCH 05/15/18 05/30/18 History dronabinol [Marinol] 2.5 mg PO AC BREAKFAST 05/15/18 05/30/18 History midodrine 5 mg PO TID 05/15/18 05/30/18 History pilocarpine HCl 5 mg PO BID 05/15/18 05/30/18 History Exam Vital signs: Vital Signs 05/30/18 18:33 05/30/18 18:39 Temperature 97.6 F Pulse Rate 78 76 Respiratory Rate 20 Blood Pressure 101/66 Pulse Oximetry 95 Intake & Output 05/30/18 05/30/18 05/31/18 06:59 18:59 06:59 Weight 68.039 kg Narrative: Gen.: No acute distress Head: Normocephalic. Atraumatic. EENT: Pupils equal round and reactive to light. Nose without drainage. Airway intact. Throat without injection. Cardiovascular: Regular rate and rhythm. No murmurs, rubs or gallops. Respiratory: Lungs clear to auscultation bilaterally. No wheezes or rhonchi. Abdomen: Soft, nontender, nondistended. No peritoneal signs. Urostomy present. Musculoskeletal: No gross deformities. No edema. Skin: Stage I sacral decubitus ulcers present Neuro: Sensory and motor grossly intact. Cranial nerves II through XII grossly intact. Results - Labs CBC & Chem 7: 05/30/18 20:00 05/30/18 20:00 Labs: Laboratory Results - last 24 hr 05/30/18 05/30/18 05/30/18 20:00 20:00 20:00 WBC 14.3 H RBC 3.68 L Hgb 11.8 L Hct 35.0 L MCV 95.1 MCH 32.0 MCHC 33.6 RDW 16.9 Plt Count 243 MPV 9.2 Neut % (Auto) 81.9 H Lymph % (Auto) 10.4 [place] % (Auto) 6.1 Eos % (Auto) 1.3 Baso % (Auto) 0.3 Neut # (Auto) 11.7 H Lymph # (Auto) 1.5 [place] # (Auto) 0.9 Eos # (Auto) 0.2 Baso # (Auto) 0.0 WBC Differential . Differential Comment Auto diff final PT 11.1 INR 1.1 APTT 25.0 Sodium Potassium Chloride Carbon Dioxide Anion Gap BUN Creatinine Estimated GFR Random Glucose Lactic Acid Calcium Total Bilirubin AST ALT Alkaline Phosphatase Total Creatine Kinase 45 Troponin I Less than 0.02 L Total Protein Albumin Lipase 05/30/18 05/30/18 20:00 20:11 WBC RBC Hgb Hct MCV MCH MCHC RDW Plt Count MPV Neut % (Auto) Lymph % (Auto) [place] % (Auto) Eos % (Auto) Baso % (Auto) Neut # (Auto) Lymph # (Auto) [place] # (Auto) Eos # (Auto) Baso # (Auto) WBC Differential Differential Comment PT INR APTT Sodium 139 Potassium 4.7 Chloride 108 H Carbon Dioxide 20.7 L Anion Gap 10 BUN 77 H Creatinine 3.44 H Estimated GFR 17 L Random Glucose 90 Lactic Acid 1.8 Calcium 8.7 Total Bilirubin 0.4 AST 20 ALT 20 Alkaline Phosphatase 85 Total Creatine Kinase Troponin I Total Protein 7.1 Albumin 2.8 L Lipase 138 - Imaging Impressions Chest X-Ray 05/30/18 19:05 CONCLUSION: No evidence of acute cardiopulmonary disease. Caprini VTE Risk Assessment Caprini VTE Risk Assessment: Moderate/High Risk (score >= 2) Caprini Risk Assessment Model: Point Value = 1 Point Value = 2 Point Value = 3 Point Value = 5 Age 41-60 Minor surgery BMI > 25 kg/m2 Swollen legs Varicose veins or History of unexplained or recurrent spontaneous Oral contraceptives or hormone replacement Sepsis (< 1 month) Serious lung disease, including pneumonia (< 1 month) Abnormal pulmonary function Acute myocardial infarction Congestive heart failure (< 1 month) History of inflammatory bowel disease Medical patient at bed rest Age 61-74 Arthroscopic surgery Major open surgery (> 45 min) Laparoscopic surgery (> 45 min) Malignancy Confined to bed (> 72 hours) Immobilizing plaster cast Central venous access Age >= 75 History of VTE Family history of VTE Factor V Leiden Prothrombin [id number] Lupus anticoagulant Anticardiolipin antibodies Elevated serum homocysteine Heparin-induced thrombocytopenia Other congenital or acquired thrombophilia Stroke (< 1 month) Elective arthroplasty Hip, pelvis, or leg fracture Acute spinal cord injury (< 1 month) Prophylaxis Regimen: Total Risk Factor Score Risk Level Prophylaxis Regimen 0-1 Low Early ambulation 2 Moderate Order ONE of the following: *Sequential Compression Device (SCD) *Heparin 5000 units SQ BID 3-4 Higher Order ONE of the following medications: *Heparin 5000 units SQ TID *Enoxaparin/Lovenox 40 mg SQ daily (WT < 150 kg, CrCl > 30 mL/min) *Enoxaparin/Lovenox 30 mg SQ daily (WT < 150 kg, CrCl > 10-29 mL/min) *Enoxaparin/Lovenox 30 mg SQ BID (WT < 150 kg, CrCl > 30 mL/min) AND/OR *Sequential Compression Device (SCD) 5 or more Highest Order ONE of the following medications: *Heparin 5000 units SQ TID (Preferred with Epidurals) *Enoxaparin/Lovenox 40 mg SQ daily (WT < 150 kg, CrCl > 30 mL/min) *Enoxaparin/Lovenox 30 mg SQ daily (WT < 150 kg, CrCl > 10-29 mL/min) *Enoxaparin/Lovenox 30 mg SQ BID (WT < 150 kg, CrCl > 30 mL/min) AND *Sequential Compression Device (SCD) Assessment and Plan - Plan Assessment/plan: 1. Diarrhea/generalized weakness/dehydration Patient reports 3-4 weeks of nonbloody diarrhea C. difficile pending Stool studies pending IV fluid hydration for dehydration 2. Acute on chronic renal insufficiency Name 3.44, baseline 2.5 IV fluids as above Monitor renal function 3. Hypotension Continue home ProAmatine 4. COPD Duo nebs as needed FEN Regular diet Electrolytes: Monitor and replete as needed NS at 70 cc/hour Marla
[2018-05-31] MEDS: Sod Chloride 0.9% Inj 1,000 ML IV.CONT SCH ×2 (01:47→16:02)
[2018-05-31 05:18] LABS: Amorphous Sediment,Urine Rare /hpf; Bacteria,Urine Occasional /hpf; Bilirubin,Urine Negative (Negative); Clarity,Urine Cloudy (Clear); Color,Urine Amber (Yellw/Straw); Glucose,Urine (UA) Negative (Negative); Leukocyte Esterase,Urine Large (Negative); Mucus,Urine Few /lpf (Occasional); Nitrite,Urine Negative (Negative); Specific Gravity,Urine 1.013 (1.002-1.035); Squamous Epithelial Cell,Urine 1 /hpf (0-5)
[2018-05-31 06:00] LABS: Baso % (Auto) 0.4 % (0.0-2.0); Eos # (Auto) 0.2 th/mm3 (0.0-0.4); Hematocrit 33.9 % (39.0-51.0); Hemoglobin 10.9 gm/dL (13.0-17.0); Lymph # (Auto) 1.3 th/mm3 (1.0-4.8); Lymph % (Auto) 13.5 % (9.0-44.0); Mean Corpuscular HGB Conc 32.2 % (32.0-36.0); Mean Corpuscular Hemoglobin 31.2 pg (27.0-34.0); Mono # (Auto) 0.5 th/mm3 (0.0-0.9); Mono % (Auto) 5.5 % (0.0-8.0); Neut # (Auto) 7.5 th/mm3 (1.8-7.7); Neut % (Auto) 78.6 % (16.0-70.0); Platelet Count 247 th/mm3 (150-450); Red Cell Distribution Width 17.2 % (11.6-17.2); White Blood Count 9.6 th/mm3 (4.0-11.0)
[2018-05-31 06:18] LABS: Calcium 7.8 mg/dL (8.5-10.1); Carbon Dioxide 20.4 meq/L (21.0-32.0); Potassium 4.4 meq/L (3.5-5.1)
[2018-05-31] MEDS: Pilocarpine HCl 5 MG Tablet PO SCH ×2 (09:20→23:06)
[2018-05-31] MEDS: Senna/Docusate Sodium 8.6/50 MG Tablet PO SCH ×2 (09:21→23:07)
--- NOTE | 2018-05-31 12:56 | P.PNWCN ---
Wound Care Nurse Consult Description: Consult for wound management of Sacrum per Dr Villa Communicated with: Dr Smith RN COMPUTER SYSTEMS MANAGER Recommendation: Leave dressing in place over sacrum for 5 days unless soiled or dislodged. If soiled or dislodged: Remove transparent film dressing with Maxorb II. Cleanse wound with NS and gauze. Place a new small piece of Maxorb II over wound bed. Secure with dry cover. Urostomy: Please replace Urostomy appliance using 1 3/4" wafer and open ended pouch Q3D and PRN for leaking. Cleanse skin around stoma with water only and pat dry. Apply Cavilon skin prep around stoma and allow to dry. Place ayanna around stoma to cover patient skin. Place wafer and pouch over ayanna seal, around stoma and warm with gloved hand for ~1-3 min. Additional information: Patient seen in H pod with RN and COMPUTER SYSTEMS MANAGER for bed change, urostomy appliance change , maggi care, and evaluation of sacral fissure. Wound/Pressure Injury - Patient Status Premedicated for Pain Prior to Dressing Change: No - Wound Sacrum Wound Staging: Stage IV (fissure with fascia visualized and bone palpable) Wound Assessment: Admission Wound Type: Pressure Injury Is This a Chronic Wound: Yes Requested from Provider a Wound Care Consult: Yes (Dr Villa) Length (cm): 2 (cm) Width (cm): 0.5 (cm) Depth (cm): 0.3 (cm) Wound Bed Appearance: White (fascia) Wound Bed Appearance: shallow, no active drainage, no odor. Surrounding Tissue Appearance: Erythema Dressing Status: Changed (was open to air, dressing applied) Cleansing Solution: Saline Primary Dressing: Maxorb II Cover Dressing: Transparent (film dressing) Wound Dressing Change Date: 05/31/18 (leave in place for 5 days) Urinary Diversion - Urinary Stoma Ileal Conduit Stent(s) Present: No Stoma Edema: No Stoma Diameter: 20 (mm) Stoma Appearance: Round (red) Collection Device: Two-piece, Moldable Wafer Drainage Description: Yellow Wafer Size: 1 3/4 Moldable 45mm (with ayanna seal to protect surrounding skin of stoma) Stoma Care: Pouch and Wafer Changed, Skin Care Maggi-Stomal Skin Appearance: Intact, Irritated and Inflammed
--- NOTE | 2018-05-31 20:07 | P.PN ---
Subjective Interval history: Follow up for C. Diff colitis. Patient is doing well. He denies any chest pain, SOB, fever, chills. He has been tolerating PO Vancomycin well. Physical Exam Vital signs: Vital Signs 05/30/18 20:30 05/30/18 23:00 05/31/18 01:30 Temperature Pulse Rate 84 80 74 Respiratory Rate 18 16 16 Blood Pressure 94/68 L 91/55 L 83/50 L Pulse Oximetry 100 100 100 05/31/18 03:30 05/31/18 04:00 05/31/18 07:21 Temperature 97.2 F L 98.4 F Pulse Rate 76 78 80 Respiratory Rate 16 18 16 Blood Pressure 91/58 L 107/65 97/64 L Pulse Oximetry 97 98 100 05/31/18 08:00 05/31/18 14:53 05/31/18 15:21 Temperature 97.8 F Pulse Rate 68 80 Respiratory Rate 12 Blood Pressure 119/68 100/67 Pulse Oximetry 100 100 100 Intake & Output 05/31/18 05/31/18 06/01/18 06:59 18:59 06:59 Intake Total 1800 / 1800 950 / 950 Balance 1800 / 1800 950 / 950 Weight 68.039 kg Intake: IV 1800 / 1800 950 / 950 NS Inj 1,000 ML @ 70 mls/hr IV. 1000 / 1000 950 / 950 CONT .[id number] [facility] Rx#:[id number] Zosyn 3.375 GM Premix 50 ML @ 50 / 50 100 mls/hr IV.SIG ONCE ONE Rx#: [id number] NS Inj 500 ML @ Wide Open IV. 500 / 500 SIG BOLUS ONE Rx#:[id number] Vancomycin Inj 1,000 MG In NS 250 / 250 Inj 250 ML @ 250 mls/hr IV.SIG ONCE ONE Rx#:[id number] Other: Date of Last Bowel Movement 05/30/18 05/30/18 Weight On Admission 68.039 kg Narrative: Gen.: No acute distress Head: Normocephalic. Atraumatic. EENT: Pupils equal round and reactive to light. Nose without drainage. Airway intact. Throat without injection. Cardiovascular: Regular rate and rhythm. No murmurs, rubs or gallops. Respiratory: Lungs clear to auscultation bilaterally. No wheezes or rhonchi. Abdomen: Soft, nontender, nondistended. No peritoneal signs. Urostomy present. Musculoskeletal: No gross deformities. No edema. Skin: Stage I sacral decubitus ulcers present Neuro: Sensory and motor grossly intact. Cranial nerves II through XII grossly intact. Results - Labs CBC & Chem 7: 05/31/18 05:20 05/31/18 05:20 Laboratory Results - last 24 hr 05/30/18 05/30/18 05/30/18 20:00 20:00 20:00 WBC 14.3 H RBC 3.68 L Hgb 11.8 L Hct 35.0 L MCV 95.1 MCH 32.0 MCHC 33.6 RDW 16.9 Plt Count 243 MPV 9.2 Neut % (Auto) 81.9 H Lymph % (Auto) 10.4 [place] % (Auto) 6.1 Eos % (Auto) 1.3 Baso % (Auto) 0.3 Neut # (Auto) 11.7 H Lymph # (Auto) 1.5 [place] # (Auto) 0.9 Eos # (Auto) 0.2 Baso # (Auto) 0.0 WBC Differential . Differential Comment Auto diff final PT 11.1 INR 1.1 APTT 25.0 Sodium Potassium Chloride Carbon Dioxide Anion Gap BUN Creatinine Estimated GFR Random Glucose Lactic Acid Calcium Total Bilirubin AST ALT Alkaline Phosphatase Total Creatine Kinase 45 Troponin I Less than 0.02 L Total Protein Albumin Lipase Urine Color Urine Clarity Urine pH Ur Specific [place] Urine Protein Urine Glucose (UA) Urine Ketones Urine Occult Blood Urine Nitrate Urine Bilirubin Urine Urobilinogen Ur Leukocyte Esterase Urine RBC Urine WBC Ur Squamous Epith Cells Amorphous Sediment Urine Bacteria Urine Mucus Micro UA Comment Ur Microscopic Review Urine Culture Comments Stool C.difficile Ag Stool C.difficile Toxin Stl C.difficile DNA Amp St C. diff Tox Epid 027 05/30/18 05/30/18 05/30/18 20:00 20:11 23:15 WBC RBC Hgb Hct MCV MCH MCHC RDW Plt Count MPV Neut % (Auto) Lymph % (Auto) [place] % (Auto) Eos % (Auto) Baso % (Auto) Neut # (Auto) Lymph # (Auto) [place] # (Auto) Eos # (Auto) Baso # (Auto) WBC Differential Differential Comment PT INR APTT Sodium 139 Potassium 4.7 Chloride 108 H Carbon Dioxide 20.7 L Anion Gap 10 BUN 77 H Creatinine 3.44 H Estimated GFR 17 L Random Glucose 90 Lactic Acid 1.8 Calcium 8.7 Total Bilirubin 0.4 AST 20 ALT 20 Alkaline Phosphatase 85 Total Creatine Kinase Troponin I Total Protein 7.1 Albumin 2.8 L Lipase 138 Urine Color Urine Clarity Urine pH Ur Specific [place] Urine Protein Urine Glucose (UA) Urine Ketones Urine Occult Blood Urine Nitrate Urine Bilirubin Urine Urobilinogen Ur Leukocyte Esterase Urine RBC Urine WBC Ur Squamous Epith Cells Amorphous Sediment Urine Bacteria Urine Mucus Micro UA Comment Ur Microscopic Review Urine Culture Comments Stool C.difficile Ag Positive H Stool C.difficile Toxin Negative Stl C.difficile DNA Amp Positive H St C. diff Tox Epid 027 Negative 05/31/18 05/31/18 05/31/18 03:20 05:20 05:20 WBC 9.6 RBC 3.50 L Hgb 10.9 L Hct 33.9 L MCV 97.0 MCH 31.2 MCHC 32.2 RDW 17.2 Plt Count 247 MPV 9.0 Neut % (Auto) 78.6 H Lymph % (Auto) 13.5 [place] % (Auto) 5.5 Eos % (Auto) 2.0 Baso % (Auto) 0.4 Neut # (Auto) 7.5 Lymph # (Auto) 1.3 [place] # (Auto) 0.5 Eos # (Auto) 0.2 Baso # (Auto) 0.0 WBC Differential . Differential Comment Auto diff final PT INR APTT Sodium 145 Potassium 4.4 Chloride 114 H Carbon Dioxide 20.4 L Anion Gap 11 BUN 66 H Creatinine 3.17 H Estimated GFR 19 L Random Glucose 97 Lactic Acid Calcium 7.8 L D Total Bilirubin AST ALT Alkaline Phosphatase Total Creatine Kinase Troponin I Total Protein Albumin Lipase Urine Color May Urine Clarity Cloudy H Urine pH 7.0 Ur Specific [place] 1.013 Urine Protein 100 H Urine Glucose (UA) Negative Urine Ketones Negative Urine Occult Blood Moderate H Urine Nitrate Negative Urine Bilirubin Negative Urine Urobilinogen Less than 2 Ur Leukocyte Esterase Large H Urine RBC 3 Urine WBC 68 H Ur Squamous Epith Cells 1 Amorphous Sediment Rare H Urine Bacteria Occasional H Urine Mucus Few H Micro UA Comment Culture indicated Ur Microscopic Review Not Reportable Urine Culture Comments Culture indicated Stool C.difficile Ag Stool C.difficile Toxin Stl C.difficile DNA Amp St C. diff Tox Epid 027 Microbiology 05/30/18 23:15 Stool Enteric Pathogens (PCR) - Final 05/31/18 03:20 Clean Catch Urine Urine Culture - Preliminary No growth. 05/30/18 23:15 Stool Stool for WBCs - Final Moderate WBC'S - Imaging Impressions Chest X-Ray 05/30/18 19:05 CONCLUSION: No evidence of acute cardiopulmonary disease. Assessment and Plan - Plan 78-year-old male with past medical history significant for bladder cancer status post urostomy and bilateral nephrostomy tubes, COPD, history of prostate cancer, chronic kidney disease and hypotension presents to the emergency department for the evaluation of diarrhea times 1 month. C. Diff colitis - WBC is improved from 14.3 --> 9.6. - Diarrhea is improving. - Continue Vancomycin 125mg QID. May need to do long taper. Atrial fibrillation - Currently rate control. - Continue Apixaban 2.5mg BID. COPD - DuoNeb PRN. Full code. Apixaban. SNF or home with home health PT.
[2018-06-01] MEDS: Sod Chloride 0.9% Inj 1,000 ML IV.CONT SCH ×2 (06:28→19:52)
[2018-06-01] MEDS: Pilocarpine HCl 5 MG Tablet PO SCH ×2 (09:38→20:47)
[2018-06-01] MEDS: Senna/Docusate Sodium 8.6/50 MG Tablet PO SCH ×2 (09:39→20:04)
--- NOTE | 2018-06-01 16:28 | P.PN ---
Subjective Interval history: Follow up for C. Diff colitis. Patient is doing well. No acute concerns. No fever, chills. Physical Exam Vital signs: Vital Signs 05/31/18 20:00 05/31/18 23:24 06/01/18 03:01 Temperature 98.1 F 98.1 F Pulse Rate 82 82 Respiratory Rate 19 22 Blood Pressure 90/55 L 117/90 Pulse Oximetry 100 100 06/01/18 04:00 06/01/18 07:53 06/01/18 12:33 Temperature 98.2 F 97.8 F 97.5 F L Pulse Rate 92 H 89 60 Respiratory Rate 19 20 20 Blood Pressure 99/65 L 112/75 91/66 L Pulse Oximetry 95 98 95 Intake & Output 05/31/18 06/01/18 06/01/18 18:59 06:59 18:59 Intake Total 950 / 950 1000 / 1000 Output Total 570 / 570 600 / 600 Balance 950 / 950 430 / 430 -600 / -600 Intake: IV 950 / 950 1000 / 1000 NS Inj 1,000 ML @ 70 mls/hr IV. 950 / 950 1000 / 1000 CONT .[id number] [facility] Rx#:[id number] Output: Urine 570 / 570 Urine Amount (Catheter) 600 / 600 3-way Urethral 600 / 600 Other: Date of Last Bowel Movement 05/30/18 05/31/18 05/31/18 Narrative: Gen.: No acute distress Head: Normocephalic. Atraumatic. EENT: Pupils equal round and reactive to light. Nose without drainage. Airway intact. Throat without injection. Cardiovascular: Regular rate and rhythm. No murmurs, rubs or gallops. Respiratory: Lungs clear to auscultation bilaterally. No wheezes or rhonchi. Abdomen: Soft, nontender, nondistended. No peritoneal signs. Urostomy present. Musculoskeletal: No gross deformities. No edema. Skin: Stage I sacral decubitus ulcers present Neuro: Sensory and motor grossly intact. Cranial nerves II through XII grossly intact. - Urinary Catheter Management 3-way Urethral Cath placed during this visit: no Results - Labs CBC & Chem 7: 05/31/18 05:20 05/31/18 05:20 Laboratory Results - last 24 hr 05/31/18 03:20 Urine Color May Urine Clarity Cloudy H Urine pH 7.0 Ur Specific [place] 1.013 Urine Protein 100 H Urine Glucose (UA) Negative Urine Ketones Negative Urine Occult Blood Moderate H Urine Nitrate Negative Urine Bilirubin Negative Urine Urobilinogen Less than 2 Ur Leukocyte Esterase Large H Urine RBC 3 Urine WBC 68 H Ur Squamous Epith Cells 1 Amorphous Sediment Rare H Urine Bacteria Occasional H Urine Mucus Few H Micro UA Comment Culture indicated Urine Culture Comments Culture indicated Microbiology 05/31/18 08:12 Blood - Peripheral Aerobic Blood Culture - Preliminary No growth in 1 day 05/31/18 08:12 Blood - Peripheral Anaerobic Blood Culture - Preliminary No growth in 1 day 05/31/18 05:20 Blood - Peripheral Aerobic Blood Culture - Preliminary No growth in 1 day 05/31/18 05:20 Blood - Peripheral Anaerobic Blood Culture - Preliminary No growth in 1 day 05/31/18 03:20 Clean Catch Urine Urine Culture - Preliminary gram negative rods 05/30/18 23:15 Stool Enteric Pathogens (PCR) - Final Assessment and Plan - Plan 78-year-old male with past medical history significant for bladder cancer status post urostomy and bilateral nephrostomy tubes, COPD, history of prostate cancer, chronic kidney disease and hypotension presents to the emergency department for the evaluation of diarrhea times 1 month. C. Diff colitis - WBC is improved from 14.3 --> 9.6. - Diarrhea is improving. - Continue Vancomycin 125mg QID. He has had C. Diff colitis before. - Vancomycin pulsed-tapered regimen: (uptodate) 125 mg orally four times daily for 10 to 14 days, then 125 mg orally twice daily for 7 days, then 125 mg orally once daily for 7 days, then 125 mg orally every 2 or 3 days for 2 to 8 weeks Atrial fibrillation - Currently rate control. - Continue Apixaban 2.5mg BID. COPD - DuoNeb PRN. Full code. Apixaban. Discharge plan: Patient has exhausted all his SNF benefits. However, PT does not feel patient would be a safe discharge home. I agree. Unfortunately, it would be a difficult discharge due to placement issues.
[2018-06-02] MEDS: Sod Chloride 0.9% Inj 1,000 ML IV.CONT SCH ×3 (06:59→21:18)
[2018-06-02] MEDS ORDERED: Influenza (Quadrivalent) Vaccine 0.5 ML Syringe IM ONE (09:00)
[2018-06-02] MEDS: Senna/Docusate Sodium 8.6/50 MG Tablet PO SCH ×3 (09:56→21:21)
[2018-06-02] MEDS: Pilocarpine HCl 5 MG Tablet PO SCH ×2 (10:01→21:18)
--- NOTE | 2018-06-02 17:20 | P.PNIM ---
Subjective Interval history: Follow-up C. difficile, history of bladder cancer, status post urostomy and bilateral nephrostomy, acute on CKD, hypotension, atrial fibrillation. Patient seen and evaluated, laying in bed, alert and oriented x3, denies any pain except pain in his bottom. Patient stated he is trying to turn side to side instead of laying down. Patient stated this is not inguinal and has been going on. Patient denies any fever or chills, denies any headache or dizziness, denies any pain, chest pain, or shortness of breath. Patient denies any nausea or vomiting. Patient complains of diarrhea x1 today. Physical Exam Vital signs: Vital Signs 06/01/18 20:00 06/02/18 00:00 06/02/18 04:00 Temperature 97.8 F 97.1 F L 97.4 F L Pulse Rate 75 66 74 Respiratory Rate 18 20 20 Blood Pressure 105/60 107/67 110/66 Pulse Oximetry 100 98 95 06/02/18 08:00 06/02/18 12:00 Temperature 97.5 F L 97.2 F L Pulse Rate 73 77 Respiratory Rate 16 16 Blood Pressure 104/75 108/72 Pulse Oximetry 99 100 Intake & Output 06/01/18 06/02/18 06/02/18 18:59 06:59 18:59 Intake Total 700 / 700 Output Total 600 / 600 Balance -600 / -600 700 / 700 Intake: IV 700 / 700 NS Inj 1,000 ML @ 70 mls/hr IV. 700 / 700 CONT .[id number] [facility] Rx#:[id number] Output: Urine Amount (Catheter) 600 / 600 3-way Urethral 600 / 600 Other: Date of Last Bowel Movement 05/31/18 06/01/18 Narrative: GENERAL: Well-developed, frail, male, alert and oriented x3, in no apparent distress SKIN: Warm and dry. Small sacral wound, and sacral redness HEAD: Atraumatic. Normocephalic. EYES: Pupils equal and round. No scleral icterus. No injection or drainage. ENT: No nasal bleeding or discharge. Mucous membranes pink and moist. NECK: Trachea midline. No JVD. CARDIOVASCULAR: Regular rate and rhythm. RESPIRATORY: No accessory muscle use. Clear to auscultation. Breath sounds equal bilaterally. GASTROINTESTINAL: Abdomen soft, non-tender, nondistended. Hepatic and splenic margins not palpable. : Right lower abdominal urostomy tube, bilateral nephrostomy tube intact, draining well MUSCULOSKELETAL: Extremities without clubbing, cyanosis, or edema. No obvious deformities. NEUROLOGICAL: Awake and alert. No obvious cranial nerve deficits. Motor grossly within normal limits. Generalized weakness, moving all extremities normal speech. PSYCHIATRIC: Appropriate mood and affect; insight and judgment normal. - Urinary Catheter Management 3-way Urethral Cath placed during this visit: no Results - Labs CBC & Chem 7: 05/31/18 05:20 05/31/18 05:20 Microbiology 05/31/18 08:12 Blood - Peripheral Aerobic Blood Culture - Preliminary No growth in 2 days 05/31/18 08:12 Blood - Peripheral Anaerobic Blood Culture - Preliminary No growth in 2 days 05/31/18 05:20 Blood - Peripheral Aerobic Blood Culture - Preliminary No growth in 2 days 05/31/18 05:20 Blood - Peripheral Anaerobic Blood Culture - Preliminary No growth in 2 days 05/31/18 03:20 Clean Catch Urine Urine Culture - Final Pseudomonas aeruginosa Multidrug Resistant Assessment and Plan - Plan 78-year-old male with past medical history significant for bladder cancer status post urostomy and bilateral nephrostomy tubes, COPD, history of prostate cancer, chronic kidney disease and hypotension presents to the emergency department for the evaluation of diarrhea times 1 month. C. Diff colitis - WBC is improved from 14.3 --> 9.6. - Diarrhea is improving. - Continue Vancomycin 125mg QID. He has had C. Diff colitis before. - Vancomycin pulsed-tapered regimen: (uptodate) 125 mg orally four times daily for 10 to 14 days, then 125 mg orally twice daily for 7 days, then 125 mg orally once daily for 7 days, then 125 mg orally every 2 or 3 days for 2 to 8 weeks History of Bladder Cancer/ /post Urostomy/Bilateral Nephrostomy -Urine CX with Pseudamonous aeruginosa, multidrug-resistant -Consult ID, appreciate input -Urostomy and nephrostomy care. Atrial fibrillation - Currently rate control. - Continue Apixaban 2.5mg BID. COPD - DuoNeb PRN. Acute on chronic renal insufficiency -Creatinine 3.17, baseline 2.5 -IV fluids as above -Monitor renal function Hypotension -Continue home Midodrine -monitor BP DVT Prophylaxis: Apixaban. Code Status: full code Discussed Condition With: patient and nurse Discharge Planning: Discharge plan: Patient has exhausted all his SNF benefits. However, PT does not feel patient would be a safe discharge home. I agree. Unfortunately, it would be a difficult discharge due to placement issues.
[2018-06-02 23:25] LABS: Bilirubin,Urine Negative (Negative); Clarity,Urine Cloudy (Clear); Color,Urine Yellow (Yellw/Straw); Glucose,Urine (UA) Negative (Negative); Leukocyte Esterase,Urine Large (Negative); Nitrite,Urine Positive (Negative); Specific Gravity,Urine 1.009 (1.002-1.035); Squamous Epithelial Cell,Urine <1 /hpf (0-5)
[2018-06-03] MEDS: Sod Chloride 0.9% Inj 1,000 ML IV.CONT SCH ×3 (02:25→12:48)
[2018-06-03 08:15] LABS: Baso % (Auto) 0.7 % (0.0-2.0); Eos # (Auto) 0.3 th/mm3 (0.0-0.4); Eos % (Auto) 3.7 % (0.0-4.0); Hematocrit 29.9 % (39.0-51.0); Lymph # (Auto) 1.5 th/mm3 (1.0-4.8); Lymph % (Auto) 19.4 % (9.0-44.0); Mean Corpuscular HGB Conc 33.3 % (32.0-36.0); Mean Corpuscular Hemoglobin 32.2 pg (27.0-34.0); Mean Corpuscular Volume 96.7 fL (80.0-100.0); Mono # (Auto) 0.6 th/mm3 (0.0-0.9); Mono % (Auto) 8.3 % (0.0-8.0); Neut # (Auto) 5.1 th/mm3 (1.8-7.7); Neut % (Auto) 67.9 % (16.0-70.0); Platelet Count 232 th/mm3 (150-450); Red Blood Count 3.09 mil/mm3 (4.50-5.90); Red Cell Distribution Width 17.2 % (11.6-17.2); White Blood Count 7.5 th/mm3 (4.0-11.0)
[2018-06-03 08:50] LABS: Calcium 7.4 mg/dL (8.5-10.1); Carbon Dioxide 16.4 meq/L (21.0-32.0); Potassium 4.7 meq/L (3.5-5.1)
[2018-06-03] MEDS: Senna/Docusate Sodium 8.6/50 MG Tablet PO SCH ×2 (08:59→22:16)
[2018-06-03] MEDS: Pilocarpine HCl 5 MG Tablet PO SCH ×2 (09:00→22:16)
[2018-06-03 09:13] LABS: Total Protein 5.2 g/dL (6.4-8.2)
--- NOTE | 2018-06-03 11:55 | P.PNIM ---
Subjective Interval history: Follow-up C. difficile, history of bladder cancer, status post urostomy and bilateral nephrostomy, acute on CKD, hypotension, atrial fibrillation. Patient seen and examined, alert and oriented x 3, lying in bed, stated 1 loose stool today so far. Stated he is taking the vancomycin for it. Patient denies any nausea or vomiting. Patient complaints of right flank pain, stated he have stone on right left side, patient he have 3 tubes. Discussed urinary culture and a re-check. Patient denies any fever or chills, denies any nausea or vomiting.. Physical Exam Vital signs: Vital Signs 06/02/18 12:00 06/02/18 16:00 06/02/18 20:00 Temperature 97.2 F L 97.2 F L 97.2 F L Pulse Rate 77 80 90 Respiratory Rate 16 16 18 Blood Pressure 108/72 117/72 129/63 Pulse Oximetry 100 100 99 06/03/18 00:00 06/03/18 04:00 06/03/18 08:00 Temperature 97.6 F 97.7 F 97.3 F L Pulse Rate 92 H 100 H 93 H Respiratory Rate 18 20 18 Blood Pressure 124/64 112/57 L 125/89 Pulse Oximetry 100 94 L 98 Intake & Output 06/02/18 06/03/18 06/03/18 18:59 06:59 18:59 Intake Total 720 / 720 1999 Output Total 975 / 975 Balance -255 / -255 1999 Intake: IV 1999 NS Inj 1,000 ML @ 70 mls/hr IV. 1999 CONT .[id number] [facility] Rx#:[id number] Oral 720 / 720 Output: Urine 975 / 975 Other: Date of Last Bowel Movement 06/02/18 06/03/18 06/03/18 # Incontinent Bowel Movements 2 Narrative: GENERAL: Well-developed, frail, thin male, alert and oriented x3, in no apparent distress SKIN: Warm and dry. Small sacral wound, and sacral redness HEAD: Atraumatic. Normocephalic. EYES: Pupils equal and round. No scleral icterus. No injection or drainage. ENT: No nasal bleeding or discharge. Mucous membranes pink and moist. NECK: Trachea midline. No JVD. CARDIOVASCULAR: Regular rate and rhythm. RESPIRATORY: No accessory muscle use. Clear to auscultation. Breath sounds equal bilaterally. GASTROINTESTINAL: Abdomen soft, non-tender, nondistended. Hepatic and splenic margins not palpable. : Right lower abdominal urostomy tube, bilateral nephrostomy tube intact, draining well MUSCULOSKELETAL: Extremities without clubbing, cyanosis, or edema. No obvious deformities. NEUROLOGICAL: Awake and alert. No obvious cranial nerve deficits. Motor grossly within normal limits. Generalized weakness, moving all extremities normal speech. PSYCHIATRIC: Appropriate mood and affect; insight and judgment normal. - Urinary Catheter Management 3-way Urethral Cath placed during this visit: no Results - Labs CBC & Chem 7: 06/03/18 07:39 06/03/18 07:39 Laboratory Results - last 24 hr 06/02/18 06/02/18 06/03/18 17:30 22:45 07:39 WBC 7.5 RBC 3.09 L Hgb 10.0 L Hct 29.9 L MCV 96.7 MCH 32.2 MCHC 33.3 RDW 17.2 Plt Count 232 MPV 8.0 Neut % (Auto) 67.9 Lymph % (Auto) 19.4 Christian % (Auto) 8.3 H Eos % (Auto) 3.7 Baso % (Auto) 0.7 Neut # (Auto) 5.1 Lymph # (Auto) 1.5 Christian # (Auto) 0.6 Eos # (Auto) 0.3 Baso # (Auto) 0.0 WBC Differential . Differential Comment Auto diff final Sodium Potassium Chloride Carbon Dioxide Anion Gap BUN Creatinine Estimated GFR Random Glucose Calcium Prot Corrected Calcium Total Protein Ur Collection Type [employer] Teacher Urine Color Yellow Urine Clarity Cloudy H Urine pH 6.0 Ur Specific [place] 1.009 Urine Protein 30 H Urine Glucose (UA) Negative Urine Ketones Negative Urine Occult Blood Large H Urine Nitrate Positive H Urine Bilirubin Negative Urine Ictotest [employer] Teacher Urine Urobilinogen Less than 2 Ur Leukocyte Esterase Large H Urine RBC Urine WBC Urine WBC Clumps Moderate H Ur Squamous Epith Cells <1 Ur Transition Epith Cell [employer] Teacher Ur Renal Epithelial Cell [employer] Teacher Calcium Carbonate Cryst [employer] Teacher Calcium Oxalate Crystal [employer] Teacher Leucine Crystals [employer] Teacher Cystine Crystals [employer] Teacher Uric Acid Crystals [employer] Teacher Triple Phos Crystals [employer] Teacher Cholesterol Crystals [employer] Teacher Tyrosine Crystals [employer] Teacher Amorphous Sediment [employer] Teacher Urine Bacteria [employer] Teacher Hyaline Casts [employer] Teacher Granular Casts [employer] Teacher Fine Granular Casts [employer] Teacher Coarse Granular Casts [employer] Teacher Waxy Casts [employer] Teacher RBC Casts [employer] Teacher WBC Casts [employer] Teacher Urine Mucus [employer] Teacher Urine Trichomonas [employer] Teacher Urine Yeast [employer] Teacher Ur Yeast w Hyphae [employer] Teacher Urine Sperm [employer] Teacher Ur Oval Fat Bodies [employer] Teacher Micro UA Comment Culture indicated Ur Microscopic Review Not Reportable Urine Culture Comments Culture indicated Urine Collection Time [employer] Teacher Urine Comment [employer] Teacher 06/03/18 07:39 WBC RBC Hgb Hct MCV MCH MCHC RDW Plt Count MPV Neut % (Auto) Lymph % (Auto) Christian % (Auto) Eos % (Auto) Baso % (Auto) Neut # (Auto) Lymph # (Auto) Christian # (Auto) Eos # (Auto) Baso # (Auto) WBC Differential Differential Comment Sodium 144 Potassium 4.7 Chloride 118 H Carbon Dioxide 16.4 L Anion Gap 10 BUN 41 H Creatinine 2.01 H Estimated GFR 32 L Random Glucose 81 Calcium 7.4 L* Prot Corrected Calcium 8.5 Total Protein 5.2 L D Ur Collection Type Urine Color Urine Clarity Urine pH Ur Specific [place] Urine Protein Urine Glucose (UA) Urine Ketones Urine Occult Blood Urine Nitrate Urine Bilirubin Urine Ictotest Urine Urobilinogen Ur Leukocyte Esterase Urine RBC Urine WBC Urine WBC Clumps Ur Squamous Epith Cells Ur Transition Epith Cell Ur Renal Epithelial Cell Calcium Carbonate Cryst Calcium Oxalate Crystal Leucine Crystals Cystine Crystals Uric Acid Crystals Triple Phos Crystals Cholesterol Crystals Tyrosine Crystals Amorphous Sediment Urine Bacteria Hyaline Casts Granular Casts Fine Granular Casts Coarse Granular Casts Waxy Casts RBC Casts WBC Casts Urine Mucus Urine Trichomonas Urine Yeast Ur Yeast w Hyphae Urine Sperm Ur Oval Fat Bodies Micro UA Comment Ur Microscopic Review Urine Culture Comments Urine Collection Time Urine Comment Microbiology 05/31/18 08:12 Blood - Peripheral Aerobic Blood Culture - Preliminary No growth in 3 days 05/31/18 08:12 Blood - Peripheral Anaerobic Blood Culture - Preliminary No growth in 3 days 05/31/18 05:20 Blood - Peripheral Aerobic Blood Culture - Preliminary No growth in 3 days 05/31/18 05:20 Blood - Peripheral Anaerobic Blood Culture - Preliminary No growth in 3 days 05/31/18 03:20 Clean Catch Urine Urine Culture - Final Pseudomonas aeruginosa Multidrug Resistant Assessment and Plan - Plan 78-year-old male with past medical history significant for bladder cancer status post urostomy and bilateral nephrostomy tubes, COPD, history of prostate cancer, chronic kidney disease and hypotension presents to the emergency department for the evaluation of diarrhea times 1 month. C. Diff colitis - WBC is improved from 14.3 --> 7.5 - Diarrhea is improving. - Continue Vancomycin 125mg QID. He has had C. Diff colitis before. - Vancomycin pulsed-tapered regimen: (uptodate) 125 mg orally four times daily for 10 to 14 days, then 125 mg orally twice daily for 7 days, then 125 mg orally once daily for 7 days, then 125 mg orally every 2 or 3 days for 2 to 8 weeks History of Bladder Cancer/ /post Urostomy/Bilateral Nephrostomy -Urine CX with Pseudamonous aeruginosa, multidrug-resistant, repeat urine culture -Consult ID, appreciate input -Urostomy and nephrostomy care. Atrial fibrillation - Currently rate control in a high side - Continue Apixaban 2.5mg BID. -monitor HR COPD No SOB, No Wheezes - DuoNeb PRN. Acute on chronic renal insufficiency -Creatinine 3.17, baseline 2.5 -IV fluids as above -Monitor renal function Hypotension -Continue home Midodrine -monitor BP Generalized weakness -PT/OT consult eval and treat -increase activity DVT Prophylaxis: Apixaban. Code Status: full code Discussed Condition With: patient, nurse and MDR Discharge Planning: Discharge plan: Patient has exhausted all his SNF benefits. However, PT does not feel patient would be a safe discharge home. I agree. Unfortunately, it would be a difficult discharge due to placement issues.
--- NOTE | 2018-06-03 20:59 | P.CONID ---
History of Present Illness Service: ID Consult date: 06/03/18 Requesting Physician: Poonam Cerda Reason for Consult: Urine Cx Pseudamonous Multidrug Resistant Primary Care Provider: [facility] Family Provider: [facility] History of Present Illness: Pt is a poor historian History obtainedc thru the chart 78-year-old male with past medical history significant for bladder cancer, prostate cabncer status post urostomy and bilateral nephrostomy tubes, COPD, history of prostate cancer, chronic kidney disease and hypotension presents to the emergency department for the evaluation of diarrhea times 1 month. Has a history of C. difficile. His C.diff test was positive for 027 strain of C.diff UA was abnormal with immunerable WBC HIs urine culture is growin branch R Pseaudomonas, culture was repeated and has growth again Pt is on vanco orally RN reports that pt has multiple liquid BMs today Review of Systems other (very poor historia) PMFSH - History History Provided By: Patient - Medical History Medical History: Medical History (Last Reviewed 06/03/18 @ 20:47 by Della Rocha MD) COPD (chronic obstructive pulmonary disease) H/O reduction of nasal fracture History of Clostridium difficile infection Kidney stones Nasal bones, closed fracture Prostate cancer Renal failure Subdural hematoma UTI (urinary tract infection) Hypotension Intertrochanteric fracture of left hip Parotid mass - Surgical History Surgical History: Surgical History (Last Reviewed 06/03/18 @ 20:47 by Della Rocha MD) History of parotidectomy History of urostomy Nephrostomy status - Family History Family History: Family History (Last Reviewed 06/03/18 @ 20:47 by Della Rocha MD) Other Coronary artery disease Osteoarthritis - Tobacco History Second Hand Smoke Exposure: No Smoking Status: Former smoker - Alcohol History How Often Do You Have a Drink Containing Alcohol: Monthly or less - Substance Use History Substance History: No History of Abuse - Travel History Recent Travel in the [place] Within the Last 8 Weeks: No Recent Travel Out of the Country Within the Last 8 Weeks: No - Immunization History Tetanus Immunization: Unsure Hx Influenza Vaccine This Season: No Medications and Allergies Active Medications: Active Medications Acetaminophen (Tylenol) 650 mg PO Q4H PRN PRN Reason: Temp > 100.4 Al Hydroxide/Mg Hydroxide (Milk Of Magnesia Liq) 30 ml PO Q12H PRN PRN Reason: Mild Constipation Albuterol (Duoneb Neb (Prn)) 1 ampul NEB Q4HR NEB PRN PRN Reason: SOB/WHeezing Apixaban (Eliquis) 2.5 mg PO BID [facility] Last Admin: 06/03/18 09:00 Dose: 2.5 mg Bisacodyl (Dulcolax Supp) 10 mg RECTAL DAILY PRN PRN Reason: SEVERE CONSITIPATION Sodium Chloride (Ns Inj) 1,000 mls @ 70 mls/hr IV.CONT .[id number] [facility] Last Admin: 06/03/18 12:48 Dose: Not Given Lactulose (Lactulose Liq) 30 ml PO DAILY PRN PRN Reason: SEVERE CONSITIPATION Midodrine (Proamatine) 5 mg PO TID [facility] Last Admin: 06/03/18 17:18 Dose: 5 mg Ondansetron HCl (Zofran Inj) 4 mg IV.PUSH Q6H PRN PRN Reason: NAUSEA OR VOMITING Pilocarpine HCl (Salagen) 5 mg PO BID [facility] Last Admin: 06/03/18 09:00 Dose: 5 mg Senna/Docusate Sodium (Maggi-Colace) 1 tab PO BID [facility] Last Admin: 06/03/18 08:59 Dose: Not Given Sennosides (Senokot) 17.2 mg PO Q12H PRN PRN Reason: Moderate Constipation Sodium Chloride (Ns Flush) 2 ml IV.FLUSH PRN PRN PRN Reason: FLUSH AFTER USING IV ACCESS Vancomycin HCl (Vancomycin Po) 125 mg PO QID [facility] Last Admin: 06/03/18 17:18 Dose: 125 mg Allergies Allergy/AdvReac Type Severity Reaction Status Date / Time crab Allergy Intermediate Rash Verified 05/30/18 18:33 Home Medications Medication Instructions Recorded Confirmed Type apixaban [Eliquis] 2.5 mg PO BID 05/15/18 05/30/18 History dronabinol 2.5 mg PO AC LUNCH 05/15/18 05/30/18 History dronabinol [Marinol] 2.5 mg PO AC BREAKFAST 05/15/18 05/30/18 History midodrine 5 mg PO TID 05/15/18 05/30/18 History pilocarpine HCl 5 mg PO BID 05/15/18 05/30/18 History Exam Vital signs: Vital Signs 06/03/18 00:00 06/03/18 04:00 06/03/18 08:00 Temperature 97.6 F 97.7 F 97.3 F L Pulse Rate 92 H 100 H 93 H Respiratory Rate 18 20 18 Blood Pressure 124/64 112/57 L 125/89 Pulse Oximetry 100 94 L 98 06/03/18 12:00 06/03/18 16:00 Temperature 97.3 F L 97.4 F L Pulse Rate 86 87 Respiratory Rate 18 18 Blood Pressure 129/77 159/87 H Pulse Oximetry 98 99 Intake & Output 06/03/18 06/03/18 06/04/18 06:59 18:59 06:59 Intake Total 1999 1000 / 1000 Output Total 925 / 925 Balance 1999 75 / 75 Intake: IV 1999 1000 / 1000 NS Inj 1,000 ML @ 70 mls/hr IV. 1999 1000 / 1000 CONT .[id number] [facility] Rx#:[id number] Output: Urine Amount (Stoma) 925 / 925 Continent Urostomy 500 / 500 Nephrostomy Tube Left 400 / 400 Nephrostomy Tube Right Other: Date of Last Bowel Movement 06/03/18 06/03/18 - Constitutional no acute distress, thin, cachectic - Routine HEENT Exam Head: Present: normocephalic, atraumatic Eye: Present: EOMI, PERRL. Absent: conjunctival icterus ENT: Present: mucous membranes moist, oropharynx clear - Routine Neck Exam Present: supple. Absent: JVD - Routine Respiratory Exam Present: CTA bilaterally. Absent: accessory muscle use, respiratory distress, rhonchi, wheezes - Routine Cardiovascular Exam Present: RRR, S1, S2. Absent: murmur, gallop - Routine Abdominal Exam Present: soft, normoactive bowel sounds, ostomy (ileostomy in placen RLQ, pink) . Absent: tenderness, distended, organomegaly, mass - Routine Exam Comments: B/l nephrostomies i place: R with minimal drainage L with slightly cloudy light yellow urine - Routine Extremities Exam Absent: cyanosis, clubbing, edema - Routine Skin Exam Present: intact, dry, warm, wounds (stage II clean superficila L buttock wound) . Absent: rash - Routine Neurological Exam Present: alert, oriented X3, CN II-XII intact, moving all extremities, vision grossly intact, hearing grossly intact, normal speech - Routine Psychiatric Exam Present: normal affect, cooperative Results - Labs CBC & Chem 7: 06/03/18 07:39 06/03/18 07:39 Labs: Laboratory Results - last 24 hr 06/02/18 06/02/18 06/03/18 17:30 22:45 07:39 WBC 7.5 RBC 3.09 L Hgb 10.0 L Hct 29.9 L MCV 96.7 MCH 32.2 MCHC 33.3 RDW 17.2 Plt Count 232 MPV 8.0 Neut % (Auto) 67.9 Lymph % (Auto) 19.4 Bailey % (Auto) 8.3 H Eos % (Auto) 3.7 Baso % (Auto) 0.7 Neut # (Auto) 5.1 Lymph # (Auto) 1.5 Bailey # (Auto) 0.6 Eos # (Auto) 0.3 Baso # (Auto) 0.0 WBC Differential . Differential Comment Auto diff final Sodium Potassium Chloride Carbon Dioxide Anion Gap BUN Creatinine Estimated GFR Random Glucose Calcium Prot Corrected Calcium Total Protein Ur Collection Type Disaster Recovery Analyst Urine Color Yellow Urine Clarity Cloudy H Urine pH 6.0 Ur Specific [place] 1.009 Urine Protein 30 H Urine Glucose (UA) Negative Urine Ketones Negative Urine Occult Blood Large H Urine Nitrate Positive H Urine Bilirubin Negative Urine Ictotest Disaster Recovery Analyst Urine Urobilinogen Less than 2 Ur Leukocyte Esterase Large H Urine RBC Urine WBC Urine WBC Clumps Moderate H Ur Squamous Epith Cells <1 Ur Transition Epith Cell Disaster Recovery Analyst Ur Renal Epithelial Cell Disaster Recovery Analyst Calcium Carbonate Cryst Disaster Recovery Analyst Calcium Oxalate Crystal Disaster Recovery Analyst Leucine Crystals Disaster Recovery Analyst Cystine Crystals Disaster Recovery Analyst Uric Acid Crystals Disaster Recovery Analyst Triple Phos Crystals Disaster Recovery Analyst Cholesterol Crystals Disaster Recovery Analyst Tyrosine Crystals Disaster Recovery Analyst Amorphous Sediment Disaster Recovery Analyst Urine Bacteria Disaster Recovery Analyst Hyaline Casts Disaster Recovery Analyst Granular Casts Disaster Recovery Analyst Fine Granular Casts Disaster Recovery Analyst Coarse Granular Casts Disaster Recovery Analyst Waxy Casts Disaster Recovery Analyst RBC Casts Disaster Recovery Analyst WBC Casts Disaster Recovery Analyst Urine Mucus Disaster Recovery Analyst Urine Trichomonas Disaster Recovery Analyst Urine Yeast Disaster Recovery Analyst Ur Yeast w Hyphae Disaster Recovery Analyst Urine Sperm Disaster Recovery Analyst Ur Oval Fat Bodies Disaster Recovery Analyst Micro UA Comment Culture indicated Ur Microscopic Review Not Reportable Urine Culture Comments Culture indicated Urine Collection Time Disaster Recovery Analyst Urine Comment Disaster Recovery Analyst 06/03/18 07:39 WBC RBC Hgb Hct MCV MCH MCHC RDW Plt Count MPV Neut % (Auto) Lymph % (Auto) [place] % (Auto) Eos % (Auto) Baso % (Auto) Neut # (Auto) Lymph # (Auto) Bailey # (Auto) Eos # (Auto) Baso # (Auto) WBC Differential Differential Comment Sodium 144 Potassium 4.7 Chloride 118 H Carbon Dioxide 16.4 L Anion Gap 10 BUN 41 H Creatinine 2.01 H Estimated GFR 32 L Random Glucose 81 Calcium 7.4 L* Prot Corrected Calcium 8.5 Total Protein 5.2 L D Ur Collection Type Urine Color Urine Clarity Urine pH Ur Specific [place] Urine Protein Urine Glucose (UA) Urine Ketones Urine Occult Blood Urine Nitrate Urine Bilirubin Urine Ictotest Urine Urobilinogen Ur Leukocyte Esterase Urine RBC Urine WBC Urine WBC Clumps Ur Squamous Epith Cells Ur Transition Epith Cell Ur Renal Epithelial Cell Calcium Carbonate Cryst Calcium Oxalate Crystal Leucine Crystals Cystine Crystals Uric Acid Crystals Triple Phos Crystals Cholesterol Crystals Tyrosine Crystals Amorphous Sediment Urine Bacteria Hyaline Casts Granular Casts Fine Granular Casts Coarse Granular Casts Waxy Casts RBC Casts WBC Casts Urine Mucus Urine Trichomonas Urine Yeast Ur Yeast w Hyphae Urine Sperm Ur Oval Fat Bodies Micro UA Comment Ur Microscopic Review Urine Culture Comments Urine Collection Time Urine Comment - Imaging Chest X-Ray 05/30/18 19:05 CONCLUSION: No evidence of acute cardiopulmonary disease. Assessment and Plan - Plan Complicated UTI in a pt with b/l nephrostomies UTi 2/2 MDRO Pseudomonas Recurrent C.diff ARF/CKD - improved GFR to baseline cont vancomycin. Will increase to 500 mg will switch to vancomycin taper after 2 weeks of full dose completed Start avycaz for MDRO PSAE UTI - adjust avycaz per GFR will ask microlab to check sensitivity to avycaz, dev conteh RN
[2018-06-03] MEDS: Ceftazidime/Avibactam Inj 1.25 GM in Sodium Chlor 0.9% Inj 50 ML IV.SIG SCH (22:16)
[2018-06-04] MEDS: Sod Chloride 0.9% Inj 1,000 ML IV.CONT SCH ×3 (03:08→19:43)
[2018-06-04] MEDS: Ceftazidime/Avibactam Inj 1.25 GM in Sodium Chlor 0.9% Inj 50 ML IV.SIG SCH ×3 (06:19→21:15)
[2018-06-04] MEDS: Senna/Docusate Sodium 8.6/50 MG Tablet PO SCH ×2 (09:47→21:15)
[2018-06-04] MEDS: Pilocarpine HCl 5 MG Tablet PO SCH ×2 (09:50→21:15)
--- NOTE | 2018-06-04 15:28 | P.PNIM ---
Subjective Interval history: Follow-up C. difficile, history of bladder cancer, status post urostomy and bilateral nephrostomy, acute on CKD, hypotension, atrial fibrillation. Patient seen and examined laying in bed in a sitting position patient denies any fever or chills. Stated pain is a lot better. Stated pain was worse yesterday, stated had a history of kidney stones. Patient stated have some 2 diarrhea today with no associated nausea or vomiting. Patient complains of some general weakness, was living together and unable to care for himself at home. Patient denies any headache or dizziness, denies any chest pain, or shortness of breath. Physical Exam Vital signs: Vital Signs 06/03/18 16:00 06/03/18 20:00 06/04/18 00:00 Temperature 97.4 F L 97.2 F L 97.5 F L Pulse Rate 87 76 97 H Respiratory Rate 18 18 20 Blood Pressure 159/87 H 131/82 131/90 Pulse Oximetry 99 99 97 06/04/18 04:00 06/04/18 08:00 06/04/18 12:00 Temperature 98.0 F 97.9 F 98 F Pulse Rate 97 H 96 H 94 H Respiratory Rate 22 18 18 Blood Pressure 108/53 L 97/62 L 123/69 Pulse Oximetry 98 98 98 Intake & Output 06/03/18 06/04/18 06/04/18 18:59 06:59 18:59 Intake Total 1000 / 1000 370 / 370 50 / 50 Output Total 925 / 925 575 / 575 Balance 75 / 75 -205 / -205 50 / 50 Intake: IV 1000 / 1000 50 / 50 50 / 50 NS Inj 1,000 ML @ 70 mls/hr IV. 1000 / 1000 CONT .[id number] TRAVIS Rx#:[id number] Avycaz Inj 1.25 GM In NS Inj 50 50 / 50 50 / 50 ML @ 25 mls/hr IV.SIG Q8H TRAVIS Rx#:[id number] Oral 320 / 320 Output: Urine Amount (Stoma) 925 / 925 575 / 575 Continent Urostomy 500 / 500 Nephrostomy Tube Left 400 / 400 550 / 550 Nephrostomy Tube Right 25 / 25 25 / 25 Other: Date of Last Bowel Movement 06/03/18 Narrative: GENERAL: Well-developed, frail, thin male, alert and oriented x3, in no apparent distress SKIN: Warm and dry. Small sacral wound, and sacral redness, on specialty mattress. HEAD: Atraumatic. Normocephalic. EYES: Pupils equal and round. No scleral icterus. No injection or drainage. ENT: No nasal bleeding or discharge. Mucous membranes pink and moist. NECK: Trachea midline. No JVD. CARDIOVASCULAR: Regular rate and rhythm. RESPIRATORY: No accessory muscle use. Clear to auscultation. Breath sounds equal bilaterally. GASTROINTESTINAL: Abdomen soft, non-tender, nondistended. Hepatic and splenic margins not palpable. : Right lower abdominal urostomy tube with leakage of urine, bilateral nephrostomy tube intact, left draining well, right no urine drainage MUSCULOSKELETAL: Extremities without clubbing, cyanosis, or edema. No obvious deformities. NEUROLOGICAL: Awake and alert. No obvious cranial nerve deficits. Motor grossly within normal limits. Generalized weakness, moving all extremities normal speech. PSYCHIATRIC: Appropriate mood and affect; insight and judgment normal. - Urinary Catheter Management 3-way Urethral Cath placed during this visit: no Results - Labs CBC & Chem 7: 06/03/18 07:39 06/03/18 07:39 Laboratory Results - last 24 hr 05/31/18 03:20 Urine Color May Urine Clarity Cloudy H Urine pH 7.0 Ur Specific [place] 1.013 Urine Protein 100 H Urine Glucose (UA) Negative Urine Ketones Negative Urine Occult Blood Moderate H Urine Nitrate Negative Urine Bilirubin Negative Urine Urobilinogen Less than 2 Ur Leukocyte Esterase Large H Urine RBC 3 Urine WBC 68 H Ur Squamous Epith Cells 1 Amorphous Sediment Rare H Urine Bacteria Occasional H Urine Mucus Few H Micro UA Comment Culture indicated Urine Culture Comments Culture indicated Microbiology 06/02/18 22:45 Clean Catch Urine Urine Culture - Preliminary gram negative rods 05/31/18 08:12 Blood - Peripheral Aerobic Blood Culture - Preliminary No growth in 4 days 05/31/18 08:12 Blood - Peripheral Anaerobic Blood Culture - Preliminary No growth in 4 days 05/31/18 05:20 Blood - Peripheral Aerobic Blood Culture - Preliminary No growth in 4 days 05/31/18 05:20 Blood - Peripheral Anaerobic Blood Culture - Preliminary No growth in 4 days 05/31/18 03:20 Clean Catch Urine Urine Culture - Preliminary Pseudomonas aeruginosa Multidrug Resistant Assessment and Plan - Assessment (1) Septic shock Code(s): A41.9 - Sepsis, unspecified organism; R65.21 - Severe sepsis with septic shock Status: Acute (2) Bacteremia Code(s): R78.81 - Bacteremia Status: Acute (3) C. difficile colitis Code(s): A04.72 - Enterocolitis due to Clostridium difficile, not specified as recurrent Status: Acute (4) Obstructive uropathy Code(s): N13.9 - Obstructive and reflux uropathy, unspecified Status: Chronic (5) Atrial fibrillation Code(s): I48.91 - Unspecified atrial fibrillation Status: Chronic (6) Acute on chronic kidney failure Code(s): N17.9 - Acute kidney failure, unspecified; N18.9 - Chronic kidney disease, unspecified Status: Chronic (7) Acute pyelonephritis Code(s): N10 - Acute pyelonephritis Status: Chronic (8) SANDI (acute kidney injury) Code(s): N17.9 - Acute kidney failure, unspecified Status: Chronic (9) Obstructed nephrostomy tube Code(s): T83.092A - Other mechanical complication of nephrostomy catheter, initial encounter Status: Acute (10) Nephrostomy complication Code(s): N99.528 - Other complication of incontinent external stoma of urinary tract Status: Acute - Plan 78-year-old male with past medical history significant for bladder cancer status post urostomy and bilateral nephrostomy tubes, COPD, history of prostate cancer, chronic kidney disease, history of parotid gland cancer, hyperlipidemia and hypotension presents to the emergency department for the evaluation of diarrhea times 1 month. C. Diff colitis - WBC is improved from 14.3 --> 7.5 - Diarrhea is improving, monitor signs and symptoms - Continue Vancomycin per ID recommendation History of Bladder Cancer/ /post Urostomy/Bilateral Nephrostomy -Urine CX with Pseudamonous aeruginosa, multidrug-resistant, repeat urine culture -Consult ID following -Started on Avycaz per ID recommendation -Urostomy and nephrostomy care. On assessment right nephrostomy tube with no urine drainage, with complaints of right flank pain, patient stated with history of gallstone. Will do renal ultrasound if necessary will consult IR for replacement of right nephrostomy tube -Monitor CBC and BMP , follow urine culture Atrial fibrillation - Currently rate control in a high side - Continue Apixaban 2.5mg BID. -monitor HR COPD No SOB, No Wheezes - DuoNeb PRN. Acute on chronic renal insufficiency -Creatinine improving 2.01 today, baseline 2.5 -Status post IV fluids -Monitor renal function Hypotension -Continue home Midodrine -monitor BP History of parotid gland cancer -Continue same regimen -Monitor signs and symptoms Generalized weakness -PT/OT consult eval and treat -increase activity DVT Prophylaxis: Apixaban. Code Status: Full code Discussed Condition With: Patient and nurse Discharge Planning: Discharge plan: Patient has exhausted all his SNF benefits. However, PT does not feel patient would be a safe discharge home. I agree. Unfortunately, it would be a difficult discharge due to placement issues.
--- NOTE | 2018-06-04 16:32 | US ---
EXAM DATE: 06/04/2018 12:00 AM EDT AGE/SEX: 78 years / Male INDICATIONS: Right nephrostomy tube complications. CLINICAL DATA: This is the patient's subsequent encounter. Patient reports that signs and symptoms h ave been present for 3 months and indicates a pain score of 4/10. MEDICAL/SURGICAL HISTORY: . Hypercholesterolemia. Atrial fibrillation. Bladder cancer. Parotid mass. Chemotherapy. Radiation therapy. . Parotid surgery. Bladder surgery. COMPARISON: [facility] – [place], CT ABDOMEN & PELVIS W/O CONTRAST, 04/12/2018. . MEASUREMENTS: Right Kidney:__. Not visualized. Left Kidney:__7.8 x 3.8 x 4.7 cm FINDINGS: Right Kidney: Not visualized. Left Kidney: Increased echotexture. No mass or hydronephrosis. Bladder: Decompressed. Not well evaluated. Other: None. CONCLUSION: 1. Limited study due to patient's body habitus and being uncooperative. 2. Right kidney not visualized. 3. Increased echogenicity of the left renal parenchyma. 4. No evidence of hydronephrosis.. Electronically signed by: Keith Lee MD 06/04/2018 4:30 PM EDT
[2018-06-05] MEDS: Ceftazidime/Avibactam Inj 1.25 GM in Sodium Chlor 0.9% Inj 50 ML IV.SIG SCH ×2 (05:53→14:16)
[2018-06-05] MEDS: Pilocarpine HCl 5 MG Tablet PO SCH ×2 (09:48→21:05)
[2018-06-05] MEDS: Sod Chloride 0.9% Inj 1,000 ML IV.CONT SCH ×2 (09:52→21:03)
[2018-06-05] MEDS: Senna/Docusate Sodium 8.6/50 MG Tablet PO SCH ×2 (09:53→21:05)
--- NOTE | 2018-06-05 14:19 | P.PNIM ---
Subjective Interval history: 78-year-old male with past medical history significant for bladder cancer status post urostomy and bilateral nephrostomy tubes, COPD, history of prostate cancer, chronic kidney disease and hypotension presents to the emergency department for the evaluation of diarrhea times 1 month. He endorses accompanying generalized weakness. His home health care provider came to see him earlier today and called EMS as the patient was covered in feces and unable to care for himself. He states he has been having diarrhea approximately 4-5 times per day. Denies any bloody or tarry stools. Has a history of C. difficile. Denies any chest pain or shortness of breath. No abdominal pain. No nausea/vomiting/diarrhea. No fever/chills. No lateralizing signs/symptoms. 10-3 Follow up for C. Diff colitis. Patient is doing well. He denies any chest pain, SOB, fever, chills. He has been tolerating PO Vancomycin well. 10-4 Follow up for C. Diff colitis. Patient is doing well. No acute concerns. No fever, chills. 10-5 Follow-up C. difficile, history of bladder cancer, status post urostomy and bilateral nephrostomy, acute on CKD, hypotension, atrial fibrillation. Patient seen and evaluated, laying in bed, alert and oriented x3, denies any pain except pain in his bottom. Patient stated he is trying to turn side to side instead of laying down. Patient stated this is not inguinal and has been going on. Patient denies any fever or chills, denies any headache or dizziness , denies any pain, chest pain, or shortness of breath. Patient denies any nausea or vomiting. Patient complains of diarrhea x1 today. 10-6 Follow-up C. difficile, history of bladder cancer, status post urostomy and bilateral nephrostomy, acute on CKD, hypotension, atrial fibrillation. Patient seen and examined, alert and oriented x 3, lying in bed, stated 1 loose stool today so far. Stated he is taking the vancomycin for it. Patient denies any nausea or vomiting. Patient complaints of right flank pain, stated he have stone on right left side, patient he have 3 tubes. Discussed urinary culture and a re-check. Patient denies any fever or chills, denies any nausea or vomiting.. 10-7 Follow-up C. difficile, history of bladder cancer, status post urostomy and bilateral nephrostomy, acute on CKD, hypotension, atrial fibrillation. Patient seen and examined laying in bed in a sitting position patient denies any fever or chills. Stated pain is a lot better. Stated pain was worse yesterday, stated had a history of kidney stones. Patient stated have some 2 diarrhea today with no associated nausea or vomiting. Patient complains of some general weakness, was living together and unable to care for himself at home. Patient denies any headache or dizziness, denies any chest pain, or shortness of breath. 10-8 STATES STOOLS ARE NOT WATER STATES HAS A STOOL NOW NEEDS PT AND OT NOT SAFE FOR HOME AT THIS TIME-NEEDS SNF DW RN AND PT AND CM Physical Exam Vital signs: Vital Signs 06/04/18 16:00 06/04/18 20:00 06/05/18 00:00 Temperature 98 F 97.5 F L 97.4 F L Pulse Rate 95 H 98 H 96 H Respiratory Rate 18 18 18 Blood Pressure 112/60 135/85 106/65 Pulse Oximetry 98 100 98 06/05/18 04:00 06/05/18 08:00 06/05/18 12:00 Temperature 97.6 F 97.7 F 97.6 F Pulse Rate 100 H 89 78 Respiratory Rate 18 16 16 Blood Pressure 101/58 L 121/73 124/67 Pulse Oximetry 98 99 100 Intake & Output 06/04/18 06/05/18 06/05/18 18:59 06:59 18:59 Intake Total 1430 / 1430 1160 / 1160 50 / 50 Output Total 650 / 650 650 / 650 Balance 780 / 780 510 / 510 50 / 50 Weight 68.1 kg Intake: IV 950 / 950 200 / 200 50 / 50 NS Inj 1,000 ML @ 70 mls/hr IV. 850 / 850 150 / 150 CONT .[id number] TRAVIS Rx#:[id number] Avycaz Inj 1.25 GM In NS Inj 50 100 / 100 50 / 50 50 / 50 ML @ 25 mls/hr IV.SIG Q8H TRAVIS Rx#:[id number] Oral 480 / 480 960 / 960 Output: Urine Amount (Catheter) 650 / 650 3-way Urethral 650 / 650 Urine Amount (Stoma) 650 / 650 Continent Urostomy 400 / 400 Nephrostomy Tube Left 250 / 250 Nephrostomy Tube Right 0 / 0 Other: Date of Last Bowel Movement 06/05/18 # Bowel Movements 1 Narrative: GENERAL: Well-developed, frail, thin male, alert and oriented x3, in no apparent distress SKIN: Warm and dry. Small sacral wound, and sacral redness, on specialty mattress. HEAD: Atraumatic. Normocephalic. EYES: Pupils equal and round. No scleral icterus. No injection or drainage. ENT: No nasal bleeding or discharge. Mucous membranes pink and moist. NECK: Trachea midline. No JVD. CARDIOVASCULAR: Regular rate and rhythm. RESPIRATORY: No accessory muscle use. Clear to auscultation. Breath sounds equal bilaterally. GASTROINTESTINAL: Abdomen soft, non-tender, nondistended. Hepatic and splenic margins not palpable. : Right lower abdominal urostomy tube with leakage of urine, bilateral nephrostomy tube intact, left draining well, right no urine drainage MUSCULOSKELETAL: Extremities without clubbing, cyanosis, or edema. No obvious deformities. NEUROLOGICAL: Awake and alert. No obvious cranial nerve deficits. Motor grossly within normal limits. Generalized weakness, moving all extremities normal speech. PSYCHIATRIC: Appropriate mood and affect; insight and judgment normal. - Urinary Catheter Management 3-way Urethral Cath placed during this visit: no Results - Labs CBC & Chem 7: 06/03/18 07:39 06/03/18 07:39 Microbiology 05/31/18 08:12 Blood - Peripheral Aerobic Blood Culture - Final No growth in 5 days 05/31/18 08:12 Blood - Peripheral Anaerobic Blood Culture - Final No growth in 5 days 05/31/18 05:20 Blood - Peripheral Aerobic Blood Culture - Final No growth in 5 days 05/31/18 05:20 Blood - Peripheral Anaerobic Blood Culture - Final No growth in 5 days 06/02/18 22:45 Clean Catch Urine Urine Culture - Preliminary Pseudomonas aeruginosa Group D Enterococcus 05/31/18 03:20 Clean Catch Urine Urine Culture - Preliminary Pseudomonas aeruginosa Multidrug Resistant - Imaging Impressions Abdomen/Bladder Ultrasound 06/04/18 00:00 CONCLUSION: 1. Limited study due to patient's body habitus and being uncooperative. 2. Right kidney not visualized. 3. Increased echogenicity of the left renal parenchyma. 4. No evidence of hydronephrosis.. Assessment and Plan - Assessment (1) Bacteremia Code(s): R78.81 - Bacteremia Status: Acute (2) C. difficile colitis Code(s): A04.72 - Enterocolitis due to Clostridium difficile, not specified as recurrent Status: Acute (3) Obstructive uropathy Code(s): N13.9 - Obstructive and reflux uropathy, unspecified Status: Chronic (4) Atrial fibrillation Code(s): I48.91 - Unspecified atrial fibrillation Status: Chronic (5) Acute on chronic kidney failure Code(s): N17.9 - Acute kidney failure, unspecified; N18.9 - Chronic kidney disease, unspecified Status: Chronic (6) Acute pyelonephritis Code(s): N10 - Acute pyelonephritis Status: Chronic (7) SANDI (acute kidney injury) Code(s): N17.9 - Acute kidney failure, unspecified Status: Chronic (8) Obstructed nephrostomy tube Code(s): T83.092A - Other mechanical complication of nephrostomy catheter, initial encounter Status: Acute (9) Nephrostomy complication Code(s): N99.528 - Other complication of incontinent external stoma of urinary tract Status: Acute - Plan 78-year-old male with past medical history significant for bladder cancer status post urostomy and bilateral nephrostomy tubes, COPD, history of prostate cancer, chronic kidney disease, history of parotid gland cancer, hyperlipidemia and hypotension presents to the emergency department for the evaluation of diarrhea times 1 month. C. Diff colitis - WBC is improved from 14.3 --> 7.5 - Diarrhea is improving, monitor signs and symptoms - Continue Vancomycin per ID recommendation -STATES NOT HAVING WATER ANYMORE-SOME FORM TO STOOLS History of Bladder Cancer/ /post Urostomy/Bilateral Nephrostomy -Urine CX with Pseudomonas aeruginosa, multidrug-resistant, repeat urine culture -Consult ID following -Started on Avycaz per ID recommendation -Urostomy and nephrostomy care. On assessment right nephrostomy tube with no urine drainage, with complaints of right flank pain, patient stated with history of gallstone. Will do renal ultrasound if necessary will consult IR for replacement of right nephrostomy tube -Monitor CBC and BMP , follow urine culture NEEDS SNF- NOT ABLE TO DO AT HOME Atrial fibrillation - Currently rate control in a high side - Continue Apixaban 2.5mg BID. -monitor HR COPD No SOB, No Wheezes - DuoNeb PRN. Acute on chronic renal insufficiency -Creatinine improving 2.01 today, baseline 2.5 -Status post IV fluids -Monitor renal function Hypotension -Continue home Midodrine -monitor BP History of parotid gland cancer -Continue same regimen -Monitor signs and symptoms Generalized weakness -PT/OT consult eval and treat -increase activity NEEDS SNF - NOT ABLE TO DO ALONE AT HOME DVT Prophylaxis: Apixaban. Code Status: FULL CODE Discussed Condition With: RN AND PT AND CM Discharge Planning: NEEDS SAFE DC- POSSIBLE [place] SN[facility] AUTHORIZATION -CM WORKING ON SOLUTION
[2018-06-05] MEDS ORDERED: fentaNYL Citrate Inj 250 MCG/5 ML Ampul ONE (16:14)
[2018-06-05] MEDS ORDERED: Iohexol 350 MG/ML 50 ML Vial (for Rad Diag) IV.PUSH ONE (16:45)
--- NOTE | 2018-06-05 17:35 | P.PNADD ---
Addendum to Inpatient Note Additional information: New clx reviewed Urine with PSAE >100K Zerbaxa S Avicaz R GD ent 50-75K - stop avicaz start zerbaxa
[2018-06-05] MEDS: Ceftolozane/Tazobactam Inj 750 MG in Sodium Chlor 0.9% Inj 100 ML IV.SIG SCH (21:10)
[2018-06-06] MEDS: Sod Chloride 0.9% Inj 1,000 ML IV.CONT SCH ×3 (05:54→22:17)
[2018-06-06] MEDS: Ceftolozane/Tazobactam Inj 750 MG in Sodium Chlor 0.9% Inj 100 ML IV.SIG SCH ×3 (05:57→21:45)
[2018-06-06 07:43] LABS: Baso % (Auto) 0.9 % (0.0-2.0); Eos # (Auto) 0.3 th/mm3 (0.0-0.4); Eos % (Auto) 4.4 % (0.0-4.0); Hematocrit 29.1 % (39.0-51.0); Hemoglobin 9.4 gm/dL (13.0-17.0); Lymph # (Auto) 1.3 th/mm3 (1.0-4.8); Lymph % (Auto) 23.7 % (9.0-44.0); Mean Corpuscular HGB Conc 32.4 % (32.0-36.0); Mean Corpuscular Hemoglobin 31.7 pg (27.0-34.0); Mean Corpuscular Volume 97.8 fL (80.0-100.0); Mean Platelet Volume 8.3 fL (7.0-11.0); Mono # (Auto) 0.5 th/mm3 (0.0-0.9); Mono % (Auto) 9.6 % (0.0-8.0); Neut # (Auto) 3.5 th/mm3 (1.8-7.7); Neut % (Auto) 61.4 % (16.0-70.0); Platelet Count 215 th/mm3 (150-450); Red Blood Count 2.98 mil/mm3 (4.50-5.90); Red Cell Distribution Width 17.3 % (11.6-17.2); White Blood Count 5.7 th/mm3 (4.0-11.0)
[2018-06-06 08:02] LABS: Albumin 2.1 g/dL (3.4-5.0); Anion Gap 7 meq/L (5-15); Aspartate Aminotransferase 22 U/L (15-37); Blood Urea Nitrogen 36 mg/dL (7-18); Calcium 7.9 mg/dL (8.5-10.1); Carbon Dioxide 19.6 meq/L (21.0-32.0); Chloride 115 meq/L (98-107); Glomerular Filtration Rate 36 mL/min (>89); Glucose,Random 84 mg/dL (74-106); Magnesium 1.5 mg/dL (1.5-2.5); Potassium 4.9 meq/L (3.5-5.1); Sodium 142 meq/L (136-145)
[2018-06-06 08:04] LABS: Alanine Aminotransferase 23 U/L (12-78); Phosphorus 2.7 mg/dL (2.5-4.9)
[2018-06-06 08:13] LABS: Alkaline Phosphatase 62 U/L (45-117); Total Protein 5.3 g/dL (6.4-8.2)
[2018-06-06] MEDS: Senna/Docusate Sodium 8.6/50 MG Tablet PO SCH ×2 (09:41→21:49)
[2018-06-06] MEDS: Pilocarpine HCl 5 MG Tablet PO SCH ×2 (09:42→21:48)
--- NOTE | 2018-06-06 14:52 | P.PNID ---
Subjective Remarks: Urine with PSAE >100K Zerbaxa S Avicaz R GD ent 50-75K avicaz was switched to zerbaxa yday improved diarrhea afebrile Antibiotics: Zerbaxa Allergies/Adverse Reactions: Allergies crab Allergy (Intermediate, Verified 05/30/18 18:33) Rash Blue Shell crab causes severe rash all over face and neck. Needs PCN to help clear it up. Patient CAN eat Shrimp and clams, scallops, oysters without problems. Objective Vital Signs 06/05/18 16:00 06/05/18 18:40 06/05/18 20:00 Temperature 97.9 F 97.4 F L Pulse Rate 89 90 80 Respiratory Rate 16 16 Blood Pressure 102/65 108/78 102/77 Pulse Oximetry 100 100 98 06/06/18 00:00 06/06/18 04:00 06/06/18 08:00 Temperature 97.6 F 98.3 F 97.5 F L Pulse Rate 89 85 99 H Respiratory Rate 14 16 17 Blood Pressure 149/77 H 105/74 129/76 Pulse Oximetry 98 97 99 06/06/18 12:00 Temperature 97.4 F L Pulse Rate 98 H Respiratory Rate 17 Blood Pressure 124/80 Pulse Oximetry 100 Intake & Output 06/05/18 06/06/18 06/06/18 18:59 06:59 18:59 Intake Total 890 / 890 854 / 854 1200 / 1200 Output Total 1025 / 1025 950 / 950 Balance -135 / -135 -96 / -96 1200 / 1200 Weight 69.5 kg Intake: IV 890 / 890 854 / 854 1200 / 1200 NS Inj 1,000 ML @ 70 mls/hr IV. 790 / 790 754 / 754 1000 / 1000 CONT .[id number] TRAVIS Rx#:[id number] Avycaz Inj 1.25 GM In NS Inj 50 100 / 100 ML @ 25 mls/hr IV.SIG Q8H TRAVIS Rx#:[id number] Zerbaxa Inj 750 MG In NS Inj 100 / 100 200 / 200 100 ML @ 100 mls/hr IV.SIG Q8H TRAVIS Rx#:[id number] Output: Urine Amount (Stoma) 1025 / 1025 950 / 950 Continent Urostomy 500 / 500 Nephrostomy Tube Left 525 / 525 450 / 450 Nephrostomy Tube Right 0 / 0 500 / 500 Other: # Incontinent Bowel Movements 0 06/02/18 22:45 Clean Catch Urine Urine Culture - Final Pseudomonas aeruginosa Enterococcus faecium VRE 05/31/18 03:20 Clean Catch Urine Urine Culture - Final Pseudomonas aeruginosa Multidrug Resistant Alcaligenes faecalis Enterococcus faecium VRE 05/31/18 08:12 Blood - Peripheral Aerobic Blood Culture - Final No growth in 5 days 05/31/18 08:12 Blood - Peripheral Anaerobic Blood Culture - Final No growth in 5 days 05/31/18 05:20 Blood - Peripheral Aerobic Blood Culture - Final No growth in 5 days 05/31/18 05:20 Blood - Peripheral Anaerobic Blood Culture - Final No growth in 5 days Lab - Hematology Results 06/06/18 06:55 WBC 5.7 RBC 2.98 L Hgb 9.4 L Hct 29.1 L MCV 97.8 MCH 31.7 MCHC 32.4 RDW 17.3 H Plt Count 215 MPV 8.3 Neut % (Auto) 61.4 Lymph % (Auto) 23.7 Haakon % (Auto) 9.6 H Eos % (Auto) 4.4 H Baso % (Auto) 0.9 Neut # (Auto) 3.5 Lymph # (Auto) 1.3 Haakon # (Auto) 0.5 Eos # (Auto) 0.3 Baso # (Auto) 0.0 WBC Differential . Differential Comment Auto diff final Lab - Chemistry Results 06/06/18 06/06/18 06:55 06:55 Sodium 142 Potassium 4.9 Chloride 115 H Carbon Dioxide 19.6 L Anion Gap 7 BUN 36 H Creatinine 1.82 H Estimated GFR 36 L Random Glucose 84 Calcium 7.9 L Phosphorus 2.7 Magnesium 1.5 Total Bilirubin 0.2 AST 22 ALT 23 Alkaline Phosphatase 62 Total Protein 5.3 L Albumin 2.1 L TSH 1.900 Free T4 0.74 L Imaging: ITS Impressions Chest X-Ray 05/30/18 19:05 CONCLUSION: No evidence of acute cardiopulmonary disease. Abdomen/Bladder Ultrasound 06/04/18 00:00 CONCLUSION: 1. Limited study due to patient's body habitus and being uncooperative. 2. Right kidney not visualized. 3. Increased echogenicity of the left renal parenchyma. 4. No evidence of hydronephrosis.. Physical Exam: GENERAL: NAD no rash cronically ill cahectic pt SKIN: Warm and dry. no rash HEAD: Atraumatic. Normocephalic. EYES: Pupils equal and round. No scleral icterus. No injection or drainage. ENT: No nasal bleeding or discharge. Mucous membranes pink and moist. NECK: Trachea midline. No JVD. CARDIOVASCULAR: Regular rate and rhythm. RESPIRATORY: No accessory muscle use. Clear to auscultation. Breath sounds equal bilaterally. GASTROINTESTINAL: Abdomen soft, non-tender, distended. Hepatic and splenic margins not palpable. Ileostomy in place with clear yellow urine, looks puiinl b/l nephrostomy in place with clear yellow urine MUSCULOSKELETAL: Extremities without clubbing, cyanosis, or edema. No obvious deformities. NEUROLOGICAL: Awake and alert. Motor grossly within normal limits. Normal speech. PSYCHIATRIC: flat affect, cooperative Assessment and Plan - Plan Complicated UTI in a pt with b/l nephrostomies UTi 2/2 MDRO Pseudomonas, R avycaz, S Zerbaxa VRE Recurrent C.diff - improved with vancomycin ARF/CKD - improved GFR to baseline cont vancomycin 500 mg qid x 2 weeks will switch to vancomycin taper after 2 weeks of full dose completed cont zerbaxa, renally adjusted add zyvox for VRE UTI dw Dr Rendon
--- NOTE | 2018-06-06 15:30 | P.PNIM ---
Subjective Interval history: 78-year-old male with past medical history significant for bladder cancer status post urostomy and bilateral nephrostomy tubes, COPD, history of prostate cancer, chronic kidney disease and hypotension presents to the emergency department for the evaluation of diarrhea times 1 month. He endorses accompanying generalized weakness. His home health care provider came to see him earlier today and called EMS as the patient was covered in feces and unable to care for himself. He states he has been having diarrhea approximately 4-5 times per day. Denies any bloody or tarry stools. Has a history of C. difficile. Denies any chest pain or shortness of breath. No abdominal pain. No nausea/vomiting/diarrhea. No fever/chills. No lateralizing signs/symptoms. 10-3 Follow up for C. Diff colitis. Patient is doing well. He denies any chest pain, SOB, fever, chills. He has been tolerating PO Vancomycin well. 10-4 Follow up for C. Diff colitis. Patient is doing well. No acute concerns. No fever, chills. 10-5 Follow-up C. difficile, history of bladder cancer, status post urostomy and bilateral nephrostomy, acute on CKD, hypotension, atrial fibrillation. Patient seen and evaluated, laying in bed, alert and oriented x3, denies any pain except pain in his bottom. Patient stated he is trying to turn side to side instead of laying down. Patient stated this is not inguinal and has been going on. Patient denies any fever or chills, denies any headache or dizziness , denies any pain, chest pain, or shortness of breath. Patient denies any nausea or vomiting. Patient complains of diarrhea x1 today. 10-6 Follow-up C. difficile, history of bladder cancer, status post urostomy and bilateral nephrostomy, acute on CKD, hypotension, atrial fibrillation. Patient seen and examined, alert and oriented x 3, lying in bed, stated 1 loose stool today so far. Stated he is taking the vancomycin for it. Patient denies any nausea or vomiting. Patient complaints of right flank pain, stated he have stone on right left side, patient he have 3 tubes. Discussed urinary culture and a re-check. Patient denies any fever or chills, denies any nausea or vomiting.. 10-7 Follow-up C. difficile, history of bladder cancer, status post urostomy and bilateral nephrostomy, acute on CKD, hypotension, atrial fibrillation. Patient seen and examined laying in bed in a sitting position patient denies any fever or chills. Stated pain is a lot better. Stated pain was worse yesterday, stated had a history of kidney stones. Patient stated have some 2 diarrhea today with no associated nausea or vomiting. Patient complains of some general weakness, was living together and unable to care for himself at home. Patient denies any headache or dizziness, denies any chest pain, or shortness of breath. 10-8 STATES STOOLS ARE NOT WATER STATES HAS A STOOL NOW NEEDS PT AND OT NOT SAFE FOR HOME AT THIS TIME-NEEDS SNF DW RN AND PT AND CM 10-9 AWAIT SAFE PLACEMENT AT [facility] PR[facility] TO DC HAS BL NEPHROSTOMY TUBES IN PLACE Physical Exam Vital signs: Vital Signs 06/05/18 16:00 06/05/18 18:40 06/05/18 20:00 Temperature 97.9 F 97.4 F L Pulse Rate 89 90 80 Respiratory Rate 16 16 Blood Pressure 102/65 108/78 102/77 Pulse Oximetry 100 100 98 06/06/18 00:00 06/06/18 04:00 06/06/18 08:00 Temperature 97.6 F 98.3 F 97.5 F L Pulse Rate 89 85 99 H Respiratory Rate 14 16 17 Blood Pressure 149/77 H 105/74 129/76 Pulse Oximetry 98 97 99 06/06/18 12:00 Temperature 97.4 F L Pulse Rate 98 H Respiratory Rate 17 Blood Pressure 124/80 Pulse Oximetry 100 Intake & Output 06/05/18 06/06/18 06/06/18 18:59 06:59 18:59 Intake Total 890 / 890 854 / 854 1200 / 1200 Output Total 1025 / 1025 950 / 950 Balance -135 / -135 -96 / -96 1200 / 1200 Weight 69.5 kg Intake: IV 890 / 890 854 / 854 1200 / 1200 NS Inj 1,000 ML @ 70 mls/hr IV. 790 / 790 754 / 754 1000 / 1000 CONT .[id number] [facility] Rx#:[id number] Avycaz Inj 1.25 GM In NS Inj 50 100 / 100 ML @ 25 mls/hr IV.SIG Q8H [facility] Rx#:[id number] Zerbaxa Inj 750 MG In NS Inj 100 / 100 200 / 200 100 ML @ 100 mls/hr IV.SIG Q8H [facility] Rx#:[id number] Output: Urine Amount (Stoma) 1025 / 1025 950 / 950 Continent Urostomy 500 / 500 Nephrostomy Tube Left 525 / 525 450 / 450 Nephrostomy Tube Right 0 / 0 500 / 500 Other: # Incontinent Bowel Movements 0 Narrative: GENERAL: Well-developed, frail, thin male, alert and oriented x3, in no apparent distress SKIN: Warm and dry. Small sacral wound, and sacral redness, on specialty mattress. HEAD: Atraumatic. Normocephalic. EYES: Pupils equal and round. No scleral icterus. No injection or drainage. ENT: No nasal bleeding or discharge. Mucous membranes pink and moist. NECK: Trachea midline. No JVD. CARDIOVASCULAR: Regular rate and rhythm. RESPIRATORY: No accessory muscle use. Clear to auscultation. Breath sounds equal bilaterally. GASTROINTESTINAL: Abdomen soft, non-tender, nondistended. Hepatic and splenic margins not palpable. : Right lower abdominal urostomy tube with leakage of urine, bilateral nephrostomy tube intact, left draining well, right DRAINING WELL NOW TOO MUSCULOSKELETAL: Extremities without clubbing, cyanosis, or edema. No obvious deformities. NEUROLOGICAL: Awake and alert. No obvious cranial nerve deficits. Motor grossly within normal limits. Generalized weakness, moving all extremities normal speech. PSYCHIATRIC: Appropriate mood and affect; insight and judgment normal. - Urinary Catheter Management 3-way Urethral Cath placed during this visit: no Results - Labs CBC & Chem 7: 06/06/18 06:55 06/06/18 06:55 Laboratory Results - last 24 hr 06/06/18 06/06/18 06/06/18 06:55 06:55 06:55 WBC 5.7 RBC 2.98 L Hgb 9.4 L Hct 29.1 L MCV 97.8 MCH 31.7 MCHC 32.4 RDW 17.3 H Plt Count 215 MPV 8.3 Neut % (Auto) 61.4 Lymph % (Auto) 23.7 [place] % (Auto) 9.6 H Eos % (Auto) 4.4 H Baso % (Auto) 0.9 Neut # (Auto) 3.5 Lymph # (Auto) 1.3 [place] # (Auto) 0.5 Eos # (Auto) 0.3 Baso # (Auto) 0.0 WBC Differential . Differential Comment Auto diff final Sodium 142 Potassium 4.9 Chloride 115 H Carbon Dioxide 19.6 L Anion Gap 7 BUN 36 H Creatinine 1.82 H Estimated GFR 36 L Random Glucose 84 Calcium 7.9 L Phosphorus 2.7 Magnesium 1.5 Total Bilirubin 0.2 AST 22 ALT 23 Alkaline Phosphatase 62 Total Protein 5.3 L Albumin 2.1 L TSH 1.900 Free T4 0.74 L Microbiology 06/02/18 22:45 Clean Catch Urine Urine Culture - Final Pseudomonas aeruginosa Enterococcus faecium VRE 05/31/18 03:20 Clean Catch Urine Urine Culture - Final Pseudomonas aeruginosa Multidrug Resistant Alcaligenes faecalis Enterococcus faecium VRE - Imaging ITS Impressions Chest X-Ray 05/30/18 19:05 CONCLUSION: No evidence of acute cardiopulmonary disease. Abdomen/Bladder Ultrasound 06/04/18 00:00 CONCLUSION: 1. Limited study due to patient's body habitus and being uncooperative. 2. Right kidney not visualized. 3. Increased echogenicity of the left renal parenchyma. 4. No evidence of hydronephrosis.. - Procedures NEPHROSTOMY TUBE REPLACEMENT Assessment and Plan - Assessment (1) Bacteremia Code(s): R78.81 - Bacteremia Status: Acute (2) C. difficile colitis Code(s): A04.72 - Enterocolitis due to Clostridium difficile, not specified as recurrent Status: Acute (3) Obstructive uropathy Code(s): N13.9 - Obstructive and reflux uropathy, unspecified Status: Chronic (4) Atrial fibrillation Code(s): I48.91 - Unspecified atrial fibrillation Status: Chronic (5) Acute on chronic kidney failure Code(s): N17.9 - Acute kidney failure, unspecified; N18.9 - Chronic kidney disease, unspecified Status: Chronic (6) Acute pyelonephritis Code(s): N10 - Acute pyelonephritis Status: Chronic (7) SANDI (acute kidney injury) Code(s): N17.9 - Acute kidney failure, unspecified Status: Chronic (8) Obstructed nephrostomy tube Code(s): T83.092A - Other mechanical complication of nephrostomy catheter, initial encounter Status: Acute (9) Nephrostomy complication Code(s): N99.528 - Other complication of incontinent external stoma of urinary tract Status: Acute - Plan 78-year-old male with past medical history significant for bladder cancer status post urostomy and bilateral nephrostomy tubes, COPD, history of prostate cancer, chronic kidney disease, history of parotid gland cancer, hyperlipidemia and hypotension presents to the emergency department for the evaluation of diarrhea times 1 month. C. Diff colitis - WBC is improved from 14.3 --> 7.5 - Diarrhea is improving, monitor signs and symptoms - Continue Vancomycin per ID recommendation -STATES NOT HAVING WATER ANYMORE-SOME FORM TO STOOLS History of Bladder Cancer/ /post Urostomy/Bilateral Nephrostomy -Urine CX with Pseudomonas aeruginosa, multidrug-resistant, repeat urine culture -Consult ID following -Started on Avycaz per ID recommendation -Urostomy and nephrostomy care. On assessment right nephrostomy tube with no urine drainage, with complaints of right flank pain, patient stated with history of gallstone. Will do renal ultrasound if necessary will consult IR for replacement of right nephrostomy tube -Monitor CBC and BMP , follow urine culture NEEDS SNF- NOT ABLE TO DO AT HOME HAD NEPHROSTOMY TUBES ADJUSTED 10-8 BY IR Atrial fibrillation - Currently rate control in a high side - Continue Apixaban 2.5mg BID. -monitor HR COPD No SOB, No Wheezes - DuoNeb PRN. Acute on chronic renal insufficiency -Creatinine improving 2.01 today, baseline 2.5 -Status post IV fluids -Monitor renal function Hypotension -Continue home Midodrine -monitor BP History of parotid gland cancer -Continue same regimen -Monitor signs and symptoms Generalized weakness -PT/OT consult eval and treat -increase activity NEEDS SNF - NOT ABLE TO DO ALONE AT HOME DVT Prophylaxis: Apixaban. Code Status: FULL CODE Discussed Condition With: [facility] AND RN AND PT Discharge Planning: NEEDS SAFE DC- POSSIBLE [place] SNF AUTHORIZATION -[facility] WORKING ON SOLUTION
--- NOTE | 2018-06-06 15:35 | IR ---
EXAM DATE: 06/05/2018 12:00 AM EDT AGE/SEX: 78 years / Male INDICATIONS: Patient presents with dislodged right nephrostomy tube in need of tube exchange. CLINICAL DATA: This is the patient's subsequent encounter. Patient reports that signs and symptoms h ave been present for 1 week and indicates a pain score of . MEDICAL/SURGICAL HISTORY: Chronic obstructive pulmonary disease. Kidney stones, Renal failure , Subdural hematoma, UTI, Hypotension, . Left hip fracture, Urostomy, Nephrostomy, Parotid mass, Nasa l fracture. COMPARISON: C, NEPHROSTOMY PERCUTANEOUS RT, 05/11/2018. . FLUORO TIME (min): 1.58 IMAGE SERIES: SEDATION TIME (min): 30 CONTRAST (cc): 10 CC Omnipaque (iohexol) 350 MEDICATION(S): 100 MCG fentanyl (Sublimaze) IV 2 mg lorazepam (Ativan) IV DEVICE(S): 10 Yi nephrostomy catheter 25cm Expel drainage catheter . . PROCEDURE : 1. Fistula tract injection 2. Antegrade percutaneous pyelogram. 3. Percutaneous nephrostomy placement. 4. Conscious sedation with continuous EKG and oximetry monitoring. The risks, benefits and alternatives to the procedure were explained and verbal and written consent w as obtained. The site was prepped in sterile fashion. Full sterile technique was used, including ca p, mask, sterile gloves and gown and a large sterile sheet. Hand hygiene and 2% chlorhexidine and/or betadine/alcohol prep was utilized per protocol for cutaneous antisepsis. Sterile gel and sterile probe cover were utilized for ultrasound guidance. The skin and subcutaneous tissues were infiltrate d with local anesthetic solution. With ultrasound and fluoroscopic guidance the tract from the previous nephrostomy was injected with c ontrast and an antegrade pyelogram was performed demonstrating a dilated collecting system. Serial d ilatation was performed and a prescribed nephrostomy tube was placed within the renal pelvis and sutu red in place. Conscious sedation was performed with the prescribed dosages and duration as above in the presence of an independent trained radiology nurse to assist in the monitoring of the patient. EKG and oximetry remained stable throughout the procedure. The patient tolerated the procedure well and there were n o complications. The patient was sent to post anesthesia recovery in stable condition. CONCLUSION: 1. Uncomplicated nephrostomy tube placement as above. Electronically signed by: Wayne Dunbar MD 06/06/2018 3:34 PM EDT
[2018-06-06] MEDS: Linezolid 600 MG Tablet PO SCH (21:48)
[2018-06-07] MEDS: Sod Chloride 0.9% Inj 1,000 ML IV.CONT SCH ×2 (04:16→17:11)
[2018-06-07] MEDS: Ceftolozane/Tazobactam Inj 750 MG in Sodium Chlor 0.9% Inj 100 ML IV.SIG SCH ×3 (05:52→22:21)
[2018-06-07 07:48] LABS: Baso # (Auto) 0.1 th/mm3 (0.0-0.2); Baso % (Auto) 1.3 % (0.0-2.0); Eos # (Auto) 0.2 th/mm3 (0.0-0.4); Eos % (Auto) 4.6 % (0.0-4.0); Hematocrit 27.1 % (39.0-51.0); Hemoglobin 8.9 gm/dL (13.0-17.0); Lymph # (Auto) 1.4 th/mm3 (1.0-4.8); Lymph % (Auto) 26.6 % (9.0-44.0); Mean Corpuscular HGB Conc 32.9 % (32.0-36.0); Mean Corpuscular Hemoglobin 32.3 pg (27.0-34.0); Mean Platelet Volume 8.2 fL (7.0-11.0); Mono # (Auto) 0.5 th/mm3 (0.0-0.9); Mono % (Auto) 9.8 % (0.0-8.0); Neut % (Auto) 57.7 % (16.0-70.0); Platelet Count 191 th/mm3 (150-450); Red Blood Count 2.77 mil/mm3 (4.50-5.90); Red Cell Distribution Width 17.1 % (11.6-17.2); White Blood Count 5.2 th/mm3 (4.0-11.0)
[2018-06-07 08:09] LABS: Albumin 1.9 g/dL (3.4-5.0); Anion Gap 11 meq/L (5-15); Aspartate Aminotransferase 26 U/L (15-37); Blood Urea Nitrogen 32 mg/dL (7-18); Calcium 7.7 mg/dL (8.5-10.1); Carbon Dioxide 20.5 meq/L (21.0-32.0); Chloride 115 meq/L (98-107); Glomerular Filtration Rate 35 mL/min (>89); Glucose,Random 89 mg/dL (74-106); Magnesium 1.6 mg/dL (1.5-2.5); Potassium 5.3 meq/L (3.5-5.1); Sodium 146 meq/L (136-145)
[2018-06-07] MEDS: Linezolid 600 MG Tablet PO SCH ×2 (08:09→20:33)
[2018-06-07] MEDS: Senna/Docusate Sodium 8.6/50 MG Tablet PO SCH ×2 (08:09→20:34)
[2018-06-07] MEDS: Pilocarpine HCl 5 MG Tablet PO SCH ×2 (08:09→20:33)
[2018-06-07 08:13] LABS: Alanine Aminotransferase 29 U/L (12-78); Alkaline Phosphatase 67 U/L (45-117); Phosphorus 2.4 mg/dL (2.5-4.9); Total Protein 5.1 g/dL (6.4-8.2)
--- NOTE | 2018-06-07 14:57 | P.PNIM ---
Subjective Interval history: 78-year-old male with past medical history significant for bladder cancer status post urostomy and bilateral nephrostomy tubes, COPD, history of prostate cancer, chronic kidney disease and hypotension presents to the emergency department for the evaluation of diarrhea times 1 month. He endorses accompanying generalized weakness. His home health care provider came to see him earlier today and called EMS as the patient was covered in feces and unable to care for himself. He states he has been having diarrhea approximately 4-5 times per day. Denies any bloody or tarry stools. Has a history of C. difficile. Denies any chest pain or shortness of breath. No abdominal pain. No nausea/vomiting/diarrhea. No fever/chills. No lateralizing signs/symptoms. 10-3 Follow up for C. Diff colitis. Patient is doing well. He denies any chest pain, SOB, fever, chills. He has been tolerating PO Vancomycin well. 10-4 Follow up for C. Diff colitis. Patient is doing well. No acute concerns. No fever, chills. 10-5 Follow-up C. difficile, history of bladder cancer, status post urostomy and bilateral nephrostomy, acute on CKD, hypotension, atrial fibrillation. Patient seen and evaluated, laying in bed, alert and oriented x3, denies any pain except pain in his bottom. Patient stated he is trying to turn side to side instead of laying down. Patient stated this is not inguinal and has been going on. Patient denies any fever or chills, denies any headache or dizziness , denies any pain, chest pain, or shortness of breath. Patient denies any nausea or vomiting. Patient complains of diarrhea x1 today. 10-6 Follow-up C. difficile, history of bladder cancer, status post urostomy and bilateral nephrostomy, acute on CKD, hypotension, atrial fibrillation. Patient seen and examined, alert and oriented x 3, lying in bed, stated 1 loose stool today so far. Stated he is taking the vancomycin for it. Patient denies any nausea or vomiting. Patient complaints of right flank pain, stated he have stone on right left side, patient he have 3 tubes. Discussed urinary culture and a re-check. Patient denies any fever or chills, denies any nausea or vomiting.. 10-7 Follow-up C. difficile, history of bladder cancer, status post urostomy and bilateral nephrostomy, acute on CKD, hypotension, atrial fibrillation. Patient seen and examined laying in bed in a sitting position patient denies any fever or chills. Stated pain is a lot better. Stated pain was worse yesterday, stated had a history of kidney stones. Patient stated have some 2 diarrhea today with no associated nausea or vomiting. Patient complains of some general weakness, was living together and unable to care for himself at home. Patient denies any headache or dizziness, denies any chest pain, or shortness of breath. 10-8 STATES STOOLS ARE NOT WATER STATES HAS A STOOL NOW NEEDS PT AND OT NOT SAFE FOR HOME AT THIS TIME-NEEDS SNF DW RN AND PT AND CM 06-06 AWAIT SAFE PLACEMENT AT [facility] AWAIT [facility] AND [place] PRIOR TO DC HAS BL NEPHROSTOMY TUBES IN PLACE 06-07 HAS BEEN AUTHORIZED TO GO TO SNF AT [facility]IOT[facility] PER ID HAS BL NEPHROSTOMY TUBES IN PLACE NO OTHER NEW COMPLAINTS Physical Exam Vital signs: Vital Signs 06/06/18 16:00 06/06/18 20:00 06/07/18 00:00 Temperature 97.2 F L 97.4 F L 97.6 F Pulse Rate 91 H 82 119 H Respiratory Rate 17 17 17 Blood Pressure 119/72 132/73 129/83 Pulse Oximetry 99 100 99 06/07/18 04:00 06/07/18 08:00 06/07/18 12:00 Temperature 97.6 F 98.1 F 97.5 F L Pulse Rate 96 H 68 92 H Respiratory Rate 17 20 16 Blood Pressure 99/61 L 122/60 107/76 Pulse Oximetry 97 96 98 Intake & Output 06/06/18 06/07/18 06/07/18 18:59 06:59 18:59 Intake Total 2920 / 2920 440 / 440 1100 / 1100 Output Total 1425 / 1425 1150 / 1150 Balance 1495 / 1495 -710 / -710 1100 / 1100 Weight 74.1 kg Intake: IV 2200 / 2200 200 / 200 1100 / 1100 NS Inj 1,000 ML @ 70 mls/hr IV. 1999 / 1999 1000 / 1000 CONT .[id number] [facility] Rx#:[id number] Zerbaxa Inj 750 MG In NS Inj 200 / 200 200 / 200 100 / 100 100 ML @ 100 mls/hr IV.SIG Q8H [facility] Rx#:[id number] Oral 720 / 720 240 / 240 Output: Urine 1425 / 1425 Urine Amount (Stoma) 1150 / 1150 Continent Urostomy 100 / 100 Nephrostomy Tube Left 500 / 500 Nephrostomy Tube Right 550 / 550 Other: Date of Last Bowel Movement 06/07/18 # Bowel Movements 1 # Incontinent Bowel Movements 1 Narrative: GENERAL: Well-developed, frail, thin male, alert and oriented x3, in no apparent distress SKIN: Warm and dry. Small sacral wound, and sacral redness, on specialty mattress. HEAD: Atraumatic. Normocephalic. EYES: Pupils equal and round. No scleral icterus. No injection or drainage. ENT: No nasal bleeding or discharge. Mucous membranes pink and moist. NECK: Trachea midline. No JVD. CARDIOVASCULAR: Regular rate and rhythm. RESPIRATORY: No accessory muscle use. Clear to auscultation. Breath sounds equal bilaterally. GASTROINTESTINAL: Abdomen soft, non-tender, nondistended. Hepatic and splenic margins not palpable. : Right lower abdominal urostomy tube with leakage of urine, bilateral nephrostomy tube intact, left draining well, right DRAINING WELL NOW TOO MUSCULOSKELETAL: Extremities without clubbing, cyanosis, or edema. No obvious deformities. NEUROLOGICAL: Awake and alert. No obvious cranial nerve deficits. Motor grossly within normal limits. Generalized weakness, moving all extremities normal speech. PSYCHIATRIC: Appropriate mood and affect; insight and judgment normal. - Urinary Catheter Management 3-way Urethral Cath placed during this visit: no Results - Labs CBC & Chem 7: 06/07/18 06:42 06/07/18 06:42 Laboratory Results - last 24 hr 06/06/18 06/07/18 06/07/18 06:55 06:42 06:42 WBC 5.2 RBC 2.77 L Hgb 8.9 L Hct 27.1 L MCV 98.0 MCH 32.3 MCHC 32.9 RDW 17.1 Plt Count 191 MPV 8.2 Neut % (Auto) 57.7 Lymph % (Auto) 26.6 [place] % (Auto) 9.8 H Eos % (Auto) 4.6 H Baso % (Auto) 1.3 Neut # (Auto) 3.0 Lymph # (Auto) 1.4 [place] # (Auto) 0.5 Eos # (Auto) 0.2 Baso # (Auto) 0.1 WBC Differential . Differential Comment Auto diff final Sodium 146 H Potassium 5.3 H Chloride 115 H Carbon Dioxide 20.5 L Anion Gap 11 BUN 32 H Creatinine 1.88 H Estimated GFR 35 L Random Glucose 89 Hemoglobin A1c 5.0 Calcium 7.7 L Phosphorus 2.4 L Magnesium 1.6 Total Bilirubin 0.1 L AST 26 ALT 29 Alkaline Phosphatase 67 Total Protein 5.1 L Albumin 1.9 L Microbiology 06/02/18 22:45 Clean Catch Urine Urine Culture - Final Pseudomonas aeruginosa Enterococcus faecium VRE 05/31/18 03:20 Clean Catch Urine Urine Culture - Final Pseudomonas aeruginosa Multidrug Resistant Alcaligenes faecalis Enterococcus faecium VRE - Imaging Impressions Nephrostomy 06/05/18 00:00 CONCLUSION: 1. Uncomplicated nephrostomy tube placement as above. - Procedures NEPHROSTOMY TUBE REPLACEMENT Assessment and Plan - Assessment (1) Bacteremia Code(s): R78.81 - Bacteremia Status: Acute (2) C. difficile colitis Code(s): A04.72 - Enterocolitis due to Clostridium difficile, not specified as recurrent Status: Acute (3) Obstructive uropathy Code(s): N13.9 - Obstructive and reflux uropathy, unspecified Status: Chronic (4) Atrial fibrillation Code(s): I48.91 - Unspecified atrial fibrillation Status: Chronic (5) Acute on chronic kidney failure Code(s): N17.9 - Acute kidney failure, unspecified; N18.9 - Chronic kidney disease, unspecified Status: Chronic (6) Acute pyelonephritis Code(s): N10 - Acute pyelonephritis Status: Chronic (7) SANDI (acute kidney injury) Code(s): N17.9 - Acute kidney failure, unspecified Status: Chronic (8) Obstructed nephrostomy tube Code(s): T83.092A - Other mechanical complication of nephrostomy catheter, initial encounter Status: Acute (9) Nephrostomy complication Code(s): N99.528 - Other complication of incontinent external stoma of urinary tract Status: Acute - Plan 78-year-old male with past medical history significant for bladder cancer status post urostomy and bilateral nephrostomy tubes, COPD, history of prostate cancer, chronic kidney disease, history of parotid gland cancer, hyperlipidemia and hypotension presents to the emergency department for the evaluation of diarrhea times 1 month. C. Diff colitis - WBC is improved from 14.3 --> 7.5 - Diarrhea is improving, monitor signs and symptoms - Continue Vancomycin PO per ID recommendation -STATES NOT HAVING WATER ANYMORE-SOME FORM TO STOOLS History of Bladder Cancer/ /post Urostomy/Bilateral Nephrostomy -Urine CX with Pseudomonas aeruginosa, multidrug-resistant, repeat urine culture -Consult ID following -Started on ZERBAXA per ID recommendation -Urostomy and nephrostomy care. On assessment right nephrostomy tube with no urine drainage, with complaints of right flank pain, patient stated with history of gallstone. Will do renal ultrasound if necessary will consult IR for replacement of right nephrostomy tube -Monitor CBC and BMP , follow urine culture NEEDS SNF- NOT ABLE TO DO AT HOME HAD NEPHROSTOMY TUBES ADJUSTED 10-8 BY IR Atrial fibrillation - Currently rate control in a high side - Continue Apixaban 2.5mg BID. -monitor HR COPD No SOB, No Wheezes - DuoNeb PRN. Acute on chronic renal insufficiency -Creatinine improving 2.01 today, baseline 2.5 1.88 TODAY -Status post IV fluids -Monitor renal function Hypotension -Continue home Midodrine -monitor BP History of parotid gland cancer -Continue same regimen -Monitor signs and symptoms Generalized weakness -PT/OT consult eval and treat -increase activity NEEDS SNF - NOT ABLE TO DO ALONE AT HOME AWAIT [facility] AWAIT [facility] DVT Prophylaxis: Apixaban. Code Status: FULL CODE Discussed Condition With: RN AND PT AND CM Discharge Planning: NEEDS SAFE DC- POSITIVE [place] SNF AUTHORIZATION -[facility] WORKING ON SOLUTION NEEDS ID PARAMETERS
[2018-06-08] MEDS: Ceftolozane/Tazobactam Inj 750 MG in Sodium Chlor 0.9% Inj 100 ML IV.SIG SCH ×3 (05:21→21:41)
[2018-06-08] MEDS: Sod Chloride 0.9% Inj 1,000 ML IV.CONT SCH ×3 (05:22→21:42)
[2018-06-08] MEDS: Senna/Docusate Sodium 8.6/50 MG Tablet PO SCH ×2 (08:42→21:41)
[2018-06-08] MEDS: Pilocarpine HCl 5 MG Tablet PO SCH ×2 (08:42→21:41)
[2018-06-08] MEDS: Linezolid 600 MG Tablet PO SCH ×2 (08:43→21:41)
[2018-06-08 08:46] LABS: Baso # (Auto) 0.1 th/mm3 (0.0-0.2); Baso % (Auto) 1.2 % (0.0-2.0); Eos # (Auto) 0.2 th/mm3 (0.0-0.4); Eos % (Auto) 4.6 % (0.0-4.0); Hematocrit 26.3 % (39.0-51.0); Hemoglobin 8.8 gm/dL (13.0-17.0); Lymph # (Auto) 1.5 th/mm3 (1.0-4.8); Lymph % (Auto) 31.4 % (9.0-44.0); Mean Corpuscular HGB Conc 33.5 % (32.0-36.0); Mean Corpuscular Hemoglobin 32.2 pg (27.0-34.0); Mean Corpuscular Volume 96.3 fL (80.0-100.0); Mono # (Auto) 0.5 th/mm3 (0.0-0.9); Mono % (Auto) 10.5 % (0.0-8.0); Neut # (Auto) 2.6 th/mm3 (1.8-7.7); Neut % (Auto) 52.3 % (16.0-70.0); Platelet Count 211 th/mm3 (150-450); Red Blood Count 2.73 mil/mm3 (4.50-5.90); White Blood Count 4.9 th/mm3 (4.0-11.0)
[2018-06-08 09:20] LABS: Albumin 2.1 g/dL (3.4-5.0); Anion Gap 7 meq/L (5-15); Aspartate Aminotransferase 26 U/L (15-37); Blood Urea Nitrogen 36 mg/dL (7-18); Calcium 8.4 mg/dL (8.5-10.1); Carbon Dioxide 20.8 meq/L (21.0-32.0); Chloride 114 meq/L (98-107); Glomerular Filtration Rate 33 mL/min (>89); Glucose,Random 76 mg/dL (74-106); Magnesium 1.7 mg/dL (1.5-2.5); Potassium 5.4 meq/L (3.5-5.1); Sodium 142 meq/L (136-145)
[2018-06-08 09:26] LABS: Alanine Aminotransferase 30 U/L (12-78); Alkaline Phosphatase 68 U/L (45-117); Phosphorus 2.5 mg/dL (2.5-4.9); Total Protein 5.6 g/dL (6.4-8.2)
--- NOTE | 2018-06-08 10:48 | P.DCO ---
Post Hospital Infusion Therapy - Infusion Therapy Location of Infusion Therapy: [facility] Infusion Therapy Order - Patient Information Patient Weight: 71.9 kg - Diagnosis (1) Acute pyelonephritis Code(s): N10 - Acute pyelonephritis - Administer Medication Ceftolozane/Tazobactam Directions: q 8 hours Additional Dosing Instructions: 750 mg IV Start Treatment: 06/08/18 Stop Treatment: 06/19/18 - Additional Information Venous Access: PICC Line Additional Instructions: [x] Peripheral flush and dressing changes per protocol [x] Implanted port and central gasoline service attendant: * Implanted port: 10 ml Normal Saline followed by 5 ml Heparin 100 units/ml Heparin flush after each use and monthly to maintain. [] May leave port accessed during therapy. [] May leave peripheral site accessed for duration of therapy. [x] If patient has SOB or respiratory distress, check oxygen saturation. If less than 90% or clinical signs of respiratory distress, administer oxygen at 2 L/min. via nasal cannula and notify physician. [x] Anaphylaxis/Reaction orders: * Stop infusion. * Keep IV line open with saline flush. * Notify physician. * Monitor vital signs every 15 minutes until symptoms resolve. * Check Oxygen saturation; Oxygen at 2 L/min. via nasal cannula if less than 90% or clinical signs of respiratory distress. * Administer diphenhydramine (Benadryl) 25 mg IV STAT, (unless patient has received as pre-med). May repeat once, if necessary. * Solu-Cortef 250 mg IVP over 30-60 seconds, use 100 mg vials for each dissolution. * Epinephrine (1mg/1 ml) 0.3 mg subcutaneously or IVP now with any signs of respiratory distress. * Check with physician for new additional pre-med orders if patient is re- challenged or re-treated. [x] May remove PICC line when treatment complete, after confirming with Physician. [x] If the patient is admitted to the hospital, the ED, or transferred via [facility] , complete transfer form including medication reconciliation order sheet. Weekly Labs: CBC w/diff, CMP - Patient Information Allergies crab Allergy (Intermediate, Verified 05/30/18 18:33) Rash Blue Shell crab causes severe rash all over face and neck. Needs PCN to help clear it up. Patient CAN eat Shrimp and clams, scallops, oysters without problems.
--- NOTE | 2018-06-08 14:41 | P.PNIM ---
Subjective Interval history: 78-year-old male with past medical history significant for bladder cancer status post urostomy and bilateral nephrostomy tubes, COPD, history of prostate cancer, chronic kidney disease and hypotension presents to the emergency department for the evaluation of diarrhea times 1 month. He endorses accompanying generalized weakness. His home health care provider came to see him earlier today and called EMS as the patient was covered in feces and unable to care for himself. He states he has been having diarrhea approximately 4-5 times per day. Denies any bloody or tarry stools. Has a history of C. difficile. Denies any chest pain or shortness of breath. No abdominal pain. No nausea/vomiting/diarrhea. No fever/chills. No lateralizing signs/symptoms. 10-3 Follow up for C. Diff colitis. Patient is doing well. He denies any chest pain, SOB, fever, chills. He has been tolerating PO Vancomycin well. 10-4 Follow up for C. Diff colitis. Patient is doing well. No acute concerns. No fever, chills. 10-5 Follow-up C. difficile, history of bladder cancer, status post urostomy and bilateral nephrostomy, acute on CKD, hypotension, atrial fibrillation. Patient seen and evaluated, laying in bed, alert and oriented x3, denies any pain except pain in his bottom. Patient stated he is trying to turn side to side instead of laying down. Patient stated this is not inguinal and has been going on. Patient denies any fever or chills, denies any headache or dizziness , denies any pain, chest pain, or shortness of breath. Patient denies any nausea or vomiting. Patient complains of diarrhea x1 today. 10-6 Follow-up C. difficile, history of bladder cancer, status post urostomy and bilateral nephrostomy, acute on CKD, hypotension, atrial fibrillation. Patient seen and examined, alert and oriented x 3, lying in bed, stated 1 loose stool today so far. Stated he is taking the vancomycin for it. Patient denies any nausea or vomiting. Patient complaints of right flank pain, stated he have stone on right left side, patient he have 3 tubes. Discussed urinary culture and a re-check. Patient denies any fever or chills, denies any nausea or vomiting.. 10-7 Follow-up C. difficile, history of bladder cancer, status post urostomy and bilateral nephrostomy, acute on CKD, hypotension, atrial fibrillation. Patient seen and examined laying in bed in a sitting position patient denies any fever or chills. Stated pain is a lot better. Stated pain was worse yesterday, stated had a history of kidney stones. Patient stated have some 2 diarrhea today with no associated nausea or vomiting. Patient complains of some general weakness, was living together and unable to care for himself at home. Patient denies any headache or dizziness, denies any chest pain, or shortness of breath. 10-8 STATES STOOLS ARE NOT WATER STATES HAS A STOOL NOW NEEDS PT AND OT NOT SAFE FOR HOME AT THIS TIME-NEEDS SNF DW RN AND PT AND CM 10- AWAIT SAFE PLACEMENT AT [facility] AWAIT [facility] AND [facility] APPROVAL PRIOR TO DC HAS BL NEPHROSTOMY TUBES IN PLACE 10 HAS BEEN AUTHORIZED TO GO TO SNF AT [facility] PER [facility] NEEDS ANTIBIOTICS PER ID HAS BL NEPHROSTOMY TUBES IN PLACE NO OTHER NEW COMPLAINTS 10 HAS BEEN ACCEPTED TO GO TO [facility] BY [place] NEEDS MEDS ADJUSTED AND PRIVATE ROOM AT SNF HOPEFULLY TO [facility] TOMORROW JOELLEN RN AND PT CONTINUE CURRENT TREATMENT AM LABS Physical Exam Vital signs: Vital Signs 06/07/18 16:00 06/07/18 20:00 06/08/18 00:00 Temperature 98 F 97.4 F L 97.8 F Pulse Rate 95 H 82 125 H Respiratory Rate 16 18 19 Blood Pressure 84/50 L 115/82 111/83 Pulse Oximetry 99 100 100 06/08/18 04:00 06/08/18 08:00 06/08/18 09:00 Temperature 98 F 97.8 F Pulse Rate 79 97 H 89 Respiratory Rate 17 20 Blood Pressure 118/89 119/74 Pulse Oximetry 100 98 06/08/18 11:40 Temperature 94.8 F L Pulse Rate 90 Respiratory Rate 20 Blood Pressure 138/86 Pulse Oximetry Intake & Output 06/07/18 06/08/18 06/08/18 18:59 06:59 18:59 Intake Total 2820 / 2820 200 / 200 1100 / 1100 Output Total 925 / 925 860 / 860 Balance 1895 / 1895 -660 / -660 1100 / 1100 Weight 71.9 kg 71.9 kg Intake: IV 2100 / 2100 200 / 200 1100 / 1100 NS Inj 1,000 ML @ 70 mls/hr IV. 1999 / 1999 1000 / 1000 CONT .[id number] [facility] Rx#:[id number] Zerbaxa Inj 750 MG In NS Inj 100 / 100 200 / 200 100 / 100 100 ML @ 100 mls/hr IV.SIG Q8H [facility] Rx#:[id number] Oral 720 / 720 Output: Urine 925 / 925 Urine Amount (Stoma) 860 / 860 Continent Urostomy 350 / 350 Nephrostomy Tube Right 510 / 510 Other: Date of Last Bowel Movement 06/08/18 06/08/18 # Bowel Movements 2 Narrative: GENERAL: Well-developed, frail, thin male, alert and oriented x3, in no apparent distress SKIN: Warm and dry. Small sacral wound, and sacral redness, on specialty mattress. HEAD: Atraumatic. Normocephalic. EYES: Pupils equal and round. No scleral icterus. No injection or drainage. ENT: No nasal bleeding or discharge. Mucous membranes pink and moist. NECK: Trachea midline. No JVD. CARDIOVASCULAR: Regular rate and rhythm. RESPIRATORY: No accessory muscle use. Clear to auscultation. Breath sounds equal bilaterally. GASTROINTESTINAL: Abdomen soft, non-tender, nondistended. Hepatic and splenic margins not palpable. : Right lower abdominal urostomy tube with leakage of urine, bilateral nephrostomy tube intact, left draining well, right DRAINING WELL NOW TOO MUSCULOSKELETAL: Extremities without clubbing, cyanosis, or edema. No obvious deformities. NEUROLOGICAL: Awake and alert. No obvious cranial nerve deficits. Motor grossly within normal limits. Generalized weakness, moving all extremities normal speech. PSYCHIATRIC: Appropriate mood and affect; insight and judgment normal. - Urinary Catheter Management 3-way Urethral Cath placed during this visit: no Results - Labs CBC & Chem 7: 06/08/18 06:37 06/08/18 06:37 Laboratory Results - last 24 hr 06/08/18 06/08/18 06:37 06:37 WBC 4.9 RBC 2.73 L Hgb 8.8 L Hct 26.3 L MCV 96.3 MCH 32.2 MCHC 33.5 RDW 17.0 Plt Count 211 MPV 8.0 Neut % (Auto) 52.3 Lymph % (Auto) 31.4 [place] % (Auto) 10.5 H Eos % (Auto) 4.6 H Baso % (Auto) 1.2 Neut # (Auto) 2.6 Lymph # (Auto) 1.5 [place] # (Auto) 0.5 Eos # (Auto) 0.2 Baso # (Auto) 0.1 WBC Differential . Differential Comment Auto diff final Sodium 142 Potassium 5.4 H Chloride 114 H Carbon Dioxide 20.8 L Anion Gap 7 BUN 36 H Creatinine 1.95 H Estimated GFR 33 L Random Glucose 76 Calcium 8.4 L Phosphorus 2.5 Magnesium 1.7 Total Bilirubin 0.2 AST 26 ALT 30 Alkaline Phosphatase 68 Total Protein 5.6 L Albumin 2.1 L - Imaging ITS Impressions Chest X-Ray 05/30/18 19:05 CONCLUSION: No evidence of acute cardiopulmonary disease. Abdomen/Bladder Ultrasound 06/04/18 00:00 CONCLUSION: 1. Limited study due to patient's body habitus and being uncooperative. 2. Right kidney not visualized. 3. Increased echogenicity of the left renal parenchyma. 4. No evidence of hydronephrosis.. Nephrostomy 06/05/18 00:00 CONCLUSION: 1. Uncomplicated nephrostomy tube placement as above. - Procedures NEPHROSTOMY TUBE REPLACEMENT Assessment and Plan - Assessment (1) Bacteremia Code(s): R78.81 - Bacteremia Status: Acute (2) C. difficile colitis Code(s): A04.72 - Enterocolitis due to Clostridium difficile, not specified as recurrent Status: Acute (3) Obstructive uropathy Code(s): N13.9 - Obstructive and reflux uropathy, unspecified Status: Chronic (4) Atrial fibrillation Code(s): I48.91 - Unspecified atrial fibrillation Status: Chronic (5) Acute on chronic kidney failure Code(s): N17.9 - Acute kidney failure, unspecified; N18.9 - Chronic kidney disease, unspecified Status: Chronic (6) Acute pyelonephritis Code(s): N10 - Acute pyelonephritis Status: Chronic (7) SANDI (acute kidney injury) Code(s): N17.9 - Acute kidney failure, unspecified Status: Chronic (8) Obstructed nephrostomy tube Code(s): T83.092A - Other mechanical complication of nephrostomy catheter, initial encounter Status: Acute (9) Nephrostomy complication Code(s): N99.528 - Other complication of incontinent external stoma of urinary tract Status: Acute - Plan 78-year-old male with past medical history significant for bladder cancer status post urostomy and bilateral nephrostomy tubes, COPD, history of prostate cancer, chronic kidney disease, history of parotid gland cancer, hyperlipidemia and hypotension presents to the emergency department for the evaluation of diarrhea times 1 month. C. Diff colitis - WBC is improved from 14.3 --> 7.5 - Diarrhea is improving, monitor signs and symptoms - Continue Vancomycin PO per ID recommendation -STATES NOT HAVING WATER ANYMORE-SOME FORM TO STOOLS History of Bladder Cancer/ /post Urostomy/Bilateral Nephrostomy -Urine CX with Pseudomonas aeruginosa, multidrug-resistant, repeat urine culture -Consult ID following -Started on ZERBAXA AND ZYVOX AND PO VANCO per ID recommendation -Urostomy and nephrostomy care. On assessment right nephrostomy tube with no urine drainage, with complaints of right flank pain, patient stated with history of gallstone. Will do renal ultrasound if necessary will consult IR for replacement of right nephrostomy tube -Monitor CBC and BMP , follow urine culture NEEDS SNF- NOT ABLE TO DO AT HOME HAD NEPHROSTOMY TUBES ADJUSTED 10-8 BY IR Atrial fibrillation - Currently rate control in a high side - Continue Apixaban 2.5mg BID. -monitor HR COPD No SOB, No Wheezes - DuoNeb PRN. Acute on chronic renal insufficiency -Creatinine improving 2.01 today, baseline 2.5 1.88 TODAY -Status post IV fluids -Monitor renal function Hypotension -Continue home Midodrine -monitor BP History of parotid gland cancer -Continue same regimen -Monitor signs and symptoms Generalized weakness -PT/OT consult eval and treat -increase activity NEEDS SNF - NOT ABLE TO DO ALONE AT HOME AWAIT ID CLEARANCE AWAIT ID CLEARANCE DVT Prophylaxis: Apixaban. HOPEFULLY TO SNF/[facility] TOMORROW Code Status: FULL CODE Discussed Condition With: JOELLEN RN AND PT AND CM AND ID Discharge Planning: NEEDS [facility]E [facility] -CM WORKING ON SOLUTION NEEDS ID PARAMETERS
--- NOTE | 2018-06-08 15:23 | P.PNID ---
Subjective Remarks: pt cont to c/o diarrhea afebrile Urine with PSAE >100K Zerbaxa S Avicaz R GD ent 50-75K Antibiotics: Zerbaxa zyvox oral vanco Allergies/Adverse Reactions: Allergies crab Allergy (Intermediate, Verified 05/30/18 18:33) Rash Blue Shell crab causes severe rash all over face and neck. Needs PCN to help clear it up. Patient CAN eat Shrimp and clams, scallops, oysters without problems. Objective Vital Signs 06/07/18 16:00 06/07/18 20:00 06/08/18 00:00 Temperature 98 F 97.4 F L 97.8 F Pulse Rate 95 H 82 125 H Respiratory Rate 16 18 19 Blood Pressure 84/50 L 115/82 111/83 Pulse Oximetry 99 100 100 06/08/18 04:00 06/08/18 08:00 06/08/18 09:00 Temperature 98 F 97.8 F Pulse Rate 79 97 H 89 Respiratory Rate 17 20 Blood Pressure 118/89 119/74 Pulse Oximetry 100 98 06/08/18 11:40 Temperature 94.8 F L Pulse Rate 90 Respiratory Rate 20 Blood Pressure 138/86 Pulse Oximetry Intake & Output 06/07/18 06/08/18 06/08/18 18:59 06:59 18:59 Intake Total 2820 / 2820 200 / 200 1100 / 1100 Output Total 925 / 925 860 / 860 Balance 1895 / 1895 -660 / -660 1100 / 1100 Weight 71.9 kg 71.9 kg Intake: IV 2100 / 2100 200 / 200 1100 / 1100 NS Inj 1,000 ML @ 70 mls/hr IV. 1999 / 1999 1000 / 1000 CONT .[id number] [facility] Rx#:[id number] Zerbaxa Inj 750 MG In NS Inj 100 / 100 200 / 200 100 / 100 100 ML @ 100 mls/hr IV.SIG Q8H [facility] Rx#:[id number] Oral 720 / 720 Output: Urine 925 / 925 Urine Amount (Stoma) 860 / 860 Continent Urostomy 350 / 350 Nephrostomy Tube Right 510 / 510 Other: Date of Last Bowel Movement 06/08/18 06/08/18 # Bowel Movements 2 06/02/18 22:45 Clean Catch Urine Urine Culture - Final Pseudomonas aeruginosa Enterococcus faecium VRE 05/31/18 03:20 Clean Catch Urine Urine Culture - Final Pseudomonas aeruginosa Multidrug Resistant Alcaligenes faecalis Enterococcus faecium VRE Lab - Hematology Results 06/07/18 06/08/18 06:42 06:37 WBC 5.2 4.9 RBC 2.77 L 2.73 L Hgb 8.9 L 8.8 L Hct 27.1 L 26.3 L MCV 98.0 96.3 MCH 32.3 32.2 MCHC 32.9 33.5 RDW 17.1 17.0 Plt Count 191 211 MPV 8.2 8.0 Neut % (Auto) 57.7 52.3 Lymph % (Auto) 26.6 31.4 [place] % (Auto) 9.8 H 10.5 H Eos % (Auto) 4.6 H 4.6 H Baso % (Auto) 1.3 1.2 Neut # (Auto) 3.0 2.6 Lymph # (Auto) 1.4 1.5 [place] # (Auto) 0.5 0.5 Eos # (Auto) 0.2 0.2 Baso # (Auto) 0.1 0.1 WBC Differential . . Differential Comment Auto diff final Auto diff final Lab - Chemistry Results 06/06/18 06/07/18 06/08/18 06:55 06:42 06:37 Sodium 146 H 142 Potassium 5.3 H 5.4 H Chloride 115 H 114 H Carbon Dioxide 20.5 L 20.8 L Anion Gap 11 7 BUN 32 H 36 H Creatinine 1.88 H 1.95 H Estimated GFR 35 L 33 L Random Glucose 89 76 Hemoglobin A1c 5.0 Calcium 7.7 L 8.4 L Phosphorus 2.4 L 2.5 Magnesium 1.6 1.7 Total Bilirubin 0.1 L 0.2 AST 26 26 ALT 29 30 Alkaline Phosphatase 67 68 Total Protein 5.1 L 5.6 L Albumin 1.9 L 2.1 L Imaging: ITS Impressions Chest X-Ray 05/30/18 19:05 CONCLUSION: No evidence of acute cardiopulmonary disease. Abdomen/Bladder Ultrasound 06/04/18 00:00 CONCLUSION: 1. Limited study due to patient's body habitus and being uncooperative. 2. Right kidney not visualized. 3. Increased echogenicity of the left renal parenchyma. 4. No evidence of hydronephrosis.. Nephrostomy 10/08/18 00:00 CONCLUSION: 1. Uncomplicated nephrostomy tube placement as above. Physical Exam: GENERAL: NAD no rash cronically ill cahectic pt SKIN: Warm and dry. no rash EYES: P No scleral icterus. ENT: Mucous membranes pink and moist. CARDIOVASCULAR: Regular rate and rhythm. RESPIRATORY: No accessory muscle use. Clear to auscultation. Breath sounds equal bilaterally. GASTROINTESTINAL: Abdomen soft, non-tender, not distended. Hepatic and splenic margins not palpable. Ileostomy in place with clear yellow urine, looks puiinl b/l nephrostomy in place with clear yellow urine ileostomy pink, clear yellow urine MUSCULOSKELETAL: Extremities without clubbing, cyanosis, or edema. NEUROLOGICAL: Awake and alert. Motor grossly within normal limits. Normal speech. PSYCHIATRIC: normal affect, cooperative Assessment and Plan (1) Acute pyelonephritis Status: Chronic Code(s): N10 - Acute pyelonephritis - Plan Complicated UTI in a pt with b/l nephrostomies UTi 2/2 MDRO Pseudomonas, R avycaz, S Zerbaxa VRE Recurrent C.diff - improved with vancomycin ARF/CKD - improved GFR to baseline cont vancomycin 500 mg qid x 2 weeks (thru 06/17) will switch to vancomycin taper after 2 weeks of full dose completed: vancomycin 125 mg bid for 1 week vancomycin 125 mg daily for 1 week vancomycin 125 mg q 48 hrs for 1 week vancomycin 125 mg q 72 hrs x 5 doses cont zerbaxa, renally adjusted x 2 weeks total (thru 06/19) cont zyvox for VRE UTI x weeks total (thru 06/20) PICC OPAT form filled dw Dr Julieta conteh case mngr
[2018-06-09] MEDS: Ceftolozane/Tazobactam Inj 750 MG in Sodium Chlor 0.9% Inj 100 ML IV.SIG SCH ×3 (05:35→23:24)
[2018-06-09 06:50] LABS: Baso # (Auto) 0.1 th/mm3 (0.0-0.2); Baso % (Auto) 1.1 % (0.0-2.0); Eos # (Auto) 0.2 th/mm3 (0.0-0.4); Eos % (Auto) 3.6 % (0.0-4.0); Hematocrit 27.6 % (39.0-51.0); Lymph # (Auto) 1.5 th/mm3 (1.0-4.8); Lymph % (Auto) 27.9 % (9.0-44.0); Mean Corpuscular HGB Conc 32.7 % (32.0-36.0); Mean Corpuscular Hemoglobin 31.8 pg (27.0-34.0); Mean Corpuscular Volume 97.4 fL (80.0-100.0); Mono # (Auto) 0.6 th/mm3 (0.0-0.9); Mono % (Auto) 10.6 % (0.0-8.0); Neut # (Auto) 3.1 th/mm3 (1.8-7.7); Neut % (Auto) 56.8 % (16.0-70.0); Platelet Count 215 th/mm3 (150-450); Red Blood Count 2.84 mil/mm3 (4.50-5.90); White Blood Count 5.5 th/mm3 (4.0-11.0)
[2018-06-09 07:19] LABS: Alanine Aminotransferase 33 U/L (12-78); Albumin 2.1 g/dL (3.4-5.0); Anion Gap 6 meq/L (5-15); Aspartate Aminotransferase 29 U/L (15-37); Blood Urea Nitrogen 35 mg/dL (7-18); Calcium 8.1 mg/dL (8.5-10.1); Carbon Dioxide 22.3 meq/L (21.0-32.0); Chloride 113 meq/L (98-107); Glomerular Filtration Rate 32 mL/min (>89); Glucose,Random 77 mg/dL (74-106); Magnesium 1.6 mg/dL (1.5-2.5); Phosphorus 2.5 mg/dL (2.5-4.9); Potassium 5.2 meq/L (3.5-5.1); Sodium 141 meq/L (136-145)
[2018-06-09 07:22] LABS: Alkaline Phosphatase 72 U/L (45-117); Total Protein 5.5 g/dL (6.4-8.2)
[2018-06-09] MEDS: Linezolid 600 MG Tablet PO SCH ×2 (09:46→20:28)
[2018-06-09] MEDS: Senna/Docusate Sodium 8.6/50 MG Tablet PO SCH ×2 (09:53→20:28)
[2018-06-09] MEDS: Pilocarpine HCl 5 MG Tablet PO SCH ×2 (10:15→20:28)
--- NOTE | 2018-06-09 10:31 | P.PNIM ---
Subjective Interval history: 78-year-old male with past medical history significant for bladder cancer status post urostomy and bilateral nephrostomy tubes, COPD, history of prostate cancer, chronic kidney disease and hypotension presents to the emergency department for the evaluation of diarrhea times 1 month. He endorses accompanying generalized weakness. His home health care provider came to see him earlier today and called EMS as the patient was covered in feces and unable to care for himself. He states he has been having diarrhea approximately 4-5 times per day. Denies any bloody or tarry stools. Has a history of C. difficile. Denies any chest pain or shortness of breath. No abdominal pain. No nausea/vomiting/diarrhea. No fever/chills. No lateralizing signs/symptoms. 10-3 Follow up for C. Diff colitis. Patient is doing well. He denies any chest pain, SOB, fever, chills. He has been tolerating PO Vancomycin well. 10-4 Follow up for C. Diff colitis. Patient is doing well. No acute concerns. No fever, chills. 10-5 Follow-up C. difficile, history of bladder cancer, status post urostomy and bilateral nephrostomy, acute on CKD, hypotension, atrial fibrillation. Patient seen and evaluated, laying in bed, alert and oriented x3, denies any pain except pain in his bottom. Patient stated he is trying to turn side to side instead of laying down. Patient stated this is not inguinal and has been going on. Patient denies any fever or chills, denies any headache or dizziness , denies any pain, chest pain, or shortness of breath. Patient denies any nausea or vomiting. Patient complains of diarrhea x1 today. 10-6 Follow-up C. difficile, history of bladder cancer, status post urostomy and bilateral nephrostomy, acute on CKD, hypotension, atrial fibrillation. Patient seen and examined, alert and oriented x 3, lying in bed, stated 1 loose stool today so far. Stated he is taking the vancomycin for it. Patient denies any nausea or vomiting. Patient complaints of right flank pain, stated he have stone on right left side, patient he have 3 tubes. Discussed urinary culture and a re-check. Patient denies any fever or chills, denies any nausea or vomiting.. 10-7 Follow-up C. difficile, history of bladder cancer, status post urostomy and bilateral nephrostomy, acute on CKD, hypotension, atrial fibrillation. Patient seen and examined laying in bed in a sitting position patient denies any fever or chills. Stated pain is a lot better. Stated pain was worse yesterday, stated had a history of kidney stones. Patient stated have some 2 diarrhea today with no associated nausea or vomiting. Patient complains of some general weakness, was living together and unable to care for himself at home. Patient denies any headache or dizziness, denies any chest pain, or shortness of breath. 10-8 STATES STOOLS ARE NOT WATER STATES HAS A STOOL NOW NEEDS PT AND OT NOT SAFE FOR HOME AT THIS TIME-NEEDS SNF DW RN AND PT AND CM 10-9 AWAIT SAFE PLACEMENT AT [facility] AWAIT [facility] AND ND APPROVAL PRIOR TO DC HAS BL NEPHROSTOMY TUBES IN PLACE 10 HAS BEEN AUTHORIZED TO GO TO SNF AT [facility] PER ND NEEDS ANTIBIOTICS PER ID HAS BL NEPHROSTOMY TUBES IN PLACE NO OTHER NEW COMPLAINTS 06-08 HAS BEEN ACCEPTED TO GO TO SNF BY ND NEEDS MEDS ADJUSTED AND PRIVATE ROOM AT SNF HOPEFULLY TO SNF [facility] RN AND PT CONTINUE CURRENT TREATMENT AM LABS 06-09 HAS BEEN ACCEPTED AT [facility] BY ND DC TO SNF TODAY DW RN AND PT AND CM ANTIBIOTICS PER ID Physical Exam Vital signs: Vital Signs 06/08/18 11:40 06/08/18 12:00 06/08/18 16:00 Temperature 94.8 F L 97.4 F L Pulse Rate 90 87 82 Respiratory Rate 20 16 Blood Pressure 138/86 141/76 H Pulse Oximetry 100 06/08/18 20:00 06/08/18 20:05 06/09/18 00:00 Temperature 98.2 F 97.4 F L Pulse Rate 79 81 100 H Respiratory Rate 18 18 Blood Pressure 115/59 L 117/58 L Pulse Oximetry 95 97 06/09/18 00:05 06/09/18 03:50 06/09/18 04:00 Temperature 97.4 F L Pulse Rate 92 H 80 84 Respiratory Rate 18 Blood Pressure 118/71 Pulse Oximetry 98 06/09/18 08:00 Temperature 98.4 F Pulse Rate 72 Respiratory Rate 16 Blood Pressure 135/87 Pulse Oximetry 98 Intake & Output 10/11/18 10/12/18 10/12/18 18:59 06:59 18:59 Intake Total 2059 / 0 1100 / 1100 100 / 100 Output Total 800 / 800 1950 / 1950 Balance 1260 / 1260 -850 / -850 100 / 100 Weight 71.9 kg Intake: IV 1100 / 1100 1100 / 1100 100 / 100 NS Inj 1,000 ML @ 70 mls/hr IV. 1000 / 1000 1000 / 1000 CONT .[id number] [facility] Rx#:[id number] Zerbaxa Inj 750 MG In NS Inj 100 / 100 100 / 100 100 / 100 100 ML @ 100 mls/hr IV.SIG Q8H [facility] Rx#:[id number] Oral 960 / 960 Output: Urine 800 / 800 Urine Amount (Stoma) 1949 / 1949 Continent Urostomy 900 / 900 Nephrostomy Tube Left 100 / 100 Nephrostomy Tube Right 950 / 950 Other: Date of Last Bowel Movement 06/08/18 06/08/18 06/08/18 Narrative: GENERAL: Well-developed, frail, thin male, alert and oriented x3, in no apparent distress SKIN: Warm and dry. Small sacral wound, and sacral redness, on specialty mattress. HEAD: Atraumatic. Normocephalic. EYES: Pupils equal and round. No scleral icterus. No injection or drainage. ENT: No nasal bleeding or discharge. Mucous membranes pink and moist. NECK: Trachea midline. No JVD. CARDIOVASCULAR: Regular rate and rhythm. RESPIRATORY: No accessory muscle use. Clear to auscultation. Breath sounds equal bilaterally. GASTROINTESTINAL: Abdomen soft, non-tender, nondistended. Hepatic and splenic margins not palpable. : Right lower abdominal urostomy tube with leakage of urine, bilateral nephrostomy tube intact, left draining well, right DRAINING WELL NOW TOO MUSCULOSKELETAL: Extremities without clubbing, cyanosis, or edema. No obvious deformities. NEUROLOGICAL: Awake and alert. No obvious cranial nerve deficits. Motor grossly within normal limits. Generalized weakness, moving all extremities normal speech. PSYCHIATRIC: Appropriate mood and affect; insight and judgment normal. - Urinary Catheter Management 3-way Urethral Cath placed during this visit: no Results - Labs CBC & Chem 7: 06/09/18 05:25 06/09/18 05:25 Laboratory Results - last 24 hr 06/09/18 06/09/18 05:25 05:25 WBC 5.5 RBC 2.84 L Hgb 9.0 L Hct 27.6 L MCV 97.4 MCH 31.8 MCHC 32.7 RDW 17.0 Plt Count 215 MPV 8.0 Neut % (Auto) 56.8 Lymph % (Auto) 27.9 [place] % (Auto) 10.6 H Eos % (Auto) 3.6 Baso % (Auto) 1.1 Neut # (Auto) 3.1 Lymph # (Auto) 1.5 [place] # (Auto) 0.6 Eos # (Auto) 0.2 Baso # (Auto) 0.1 WBC Differential . Differential Comment Auto diff final Sodium 141 Potassium 5.2 H Chloride 113 H Carbon Dioxide 22.3 Anion Gap 6 BUN 35 H Creatinine 2.01 H Estimated GFR 32 L Random Glucose 77 Calcium 8.1 L Phosphorus 2.5 Magnesium 1.6 Total Bilirubin 0.2 AST 29 ALT 33 Alkaline Phosphatase 72 Total Protein 5.5 L Albumin 2.1 L - Imaging Chest X-Ray 05/30/18 19:05 CONCLUSION: No evidence of acute cardiopulmonary disease. Abdomen/Bladder Ultrasound 06/04/18 00:00 CONCLUSION: 1. Limited study due to patient's body habitus and being uncooperative. 2. Right kidney not visualized. 3. Increased echogenicity of the left renal parenchyma. 4. No evidence of hydronephrosis.. Nephrostomy 06/05/18 00:00 CONCLUSION: 1. Uncomplicated nephrostomy tube placement as above. - Procedures NEPHROSTOMY TUBE REPLACEMENT Assessment and Plan - Assessment (1) Bacteremia Code(s): R78.81 - Bacteremia Status: Acute (2) C. difficile colitis Code(s): A04.72 - Enterocolitis due to Clostridium difficile, not specified as recurrent Status: Acute (3) Obstructive uropathy Code(s): N13.9 - Obstructive and reflux uropathy, unspecified Status: Chronic (4) Atrial fibrillation Code(s): I48.91 - Unspecified atrial fibrillation Status: Chronic (5) Acute on chronic kidney failure Code(s): N17.9 - Acute kidney failure, unspecified; N18.9 - Chronic kidney disease, unspecified Status: Chronic (6) Acute pyelonephritis Code(s): N10 - Acute pyelonephritis Status: Chronic (7) SANDI (acute kidney injury) Code(s): N17.9 - Acute kidney failure, unspecified Status: Chronic (8) Obstructed nephrostomy tube Code(s): T83.092A - Other mechanical complication of nephrostomy catheter, initial encounter Status: Acute (9) Nephrostomy complication Code(s): N99.528 - Other complication of incontinent external stoma of urinary tract Status: Acute - Plan 78-year-old male with past medical history significant for bladder cancer status post urostomy and bilateral nephrostomy tubes, COPD, history of prostate cancer, chronic kidney disease, history of parotid gland cancer, hyperlipidemia and hypotension presents to the emergency department for the evaluation of diarrhea times 1 month. C. Diff colitis - WBC is improved from 14.3 --> 7.5 - Diarrhea is improving, monitor signs and symptoms - Continue Vancomycin PO per ID recommendation -STATES NOT HAVING WATER ANYMORE-SOME FORM TO STOOLS History of Bladder Cancer/ /post Urostomy/Bilateral Nephrostomy -Urine CX with Pseudomonas aeruginosa, multidrug-resistant, repeat urine culture -Consult ID following -Started on ZERBAXA AND ZYVOX AND PO VANCO per ID recommendation -Urostomy and nephrostomy care. On assessment right nephrostomy tube with no urine drainage, with complaints of right flank pain, patient stated with history of gallstone. Will do renal ultrasound if necessary will consult IR for replacement of right nephrostomy tube -Monitor CBC and BMP , follow urine culture NEEDS SNF- NOT ABLE TO DO AT HOME HAD NEPHROSTOMY TUBES ADJUSTED 10-8 BY IR Atrial fibrillation - Currently rate control in a high side - Continue Apixaban 2.5mg BID. -monitor HR COPD No SOB, No Wheezes - DuoNeb PRN. Acute on chronic renal insufficiency -Creatinine improving 2.01 today, baseline 2.5 1.88 TODAY -Status post IV fluids -Monitor renal function Hypotension -Continue home Midodrine -monitor BP History of parotid gland cancer -Continue same regimen -Monitor signs and symptoms Generalized weakness -PT/OT consult eval and treat -increase activity NEEDS SNF - NOT ABLE TO DO ALONE AT HOME AWAIT ID CLEARANCE AWAIT ID CLEARANCE DVT Prophylaxis: Apixaban. HOPEFULLY TO SNF/[facility] TODAY Code Status: FULL CODE Discussed Condition With: JOELLEN RN AND PT AND CM Discharge Planning: NEEDS [facility]AFE [facility] -CM WORKING ON SOLUTION NEEDS ID PARAMETERS
--- NOTE | 2018-06-09 10:43 | P.DS ---
Date of admission: 05/31/18 13:29 Primary care physician: Physician [facility] Attending physician on discharge: David Narvaez Anticipated date of discharge: 06/09/18 Brief History from admission: 78-year-old male with past medical history significant for bladder cancer status post urostomy and bilateral nephrostomy tubes, COPD, history of prostate cancer, chronic kidney disease and hypotension presents to the emergency department for the evaluation of diarrhea times 1 month. He endorses accompanying generalized weakness. His home health care provider came to see him earlier today and called EMS as the patient was covered in feces and unable to care for himself. He states he has been having diarrhea approximately 4-5 times per day. Denies any bloody or tarry stools. Has a history of C. difficile. Denies any chest pain or shortness of breath. No abdominal pain. No nausea/vomiting/diarrhea. No fever/chills. No lateralizing signs/symptoms. Patient update on day of discharge: 78-year-old male with past medical history significant for bladder cancer status post urostomy and bilateral nephrostomy tubes, COPD, history of prostate cancer, chronic kidney disease and hypotension presents to the emergency department for the evaluation of diarrhea times 1 month. He endorses accompanying generalized weakness. His home health care provider came to see him earlier today and called EMS as the patient was covered in feces and unable to care for himself. He states he has been having diarrhea approximately 4-5 times per day. Denies any bloody or tarry stools. Has a history of C. difficile. Denies any chest pain or shortness of breath. No abdominal pain. No nausea/vomiting/diarrhea. No fever/chills. No lateralizing signs/symptoms. 10-3 Follow up for C. Diff colitis. Patient is doing well. He denies any chest pain, SOB, fever, chills. He has been tolerating PO Vancomycin well. 10-4 Follow up for C. Diff colitis. Patient is doing well. No acute concerns. No fever, chills. 10-5 Follow-up C. difficile, history of bladder cancer, status post urostomy and bilateral nephrostomy, acute on CKD, hypotension, atrial fibrillation. Patient seen and evaluated, laying in bed, alert and oriented x3, denies any pain except pain in his bottom. Patient stated he is trying to turn side to side instead of laying down. Patient stated this is not inguinal and has been going on. Patient denies any fever or chills, denies any headache or dizziness , denies any pain, chest pain, or shortness of breath. Patient denies any nausea or vomiting. Patient complains of diarrhea x1 today. 10-6 Follow-up C. difficile, history of bladder cancer, status post urostomy and bilateral nephrostomy, acute on CKD, hypotension, atrial fibrillation. Patient seen and examined, alert and oriented x 3, lying in bed, stated 1 loose stool today so far. Stated he is taking the vancomycin for it. Patient denies any nausea or vomiting. Patient complaints of right flank pain, stated he have stone on right left side, patient he have 3 tubes. Discussed urinary culture and a re-check. Patient denies any fever or chills, denies any nausea or vomiting.. 10-7 Follow-up C. difficile, history of bladder cancer, status post urostomy and bilateral nephrostomy, acute on CKD, hypotension, atrial fibrillation. Patient seen and examined laying in bed in a sitting position patient denies any fever or chills. Stated pain is a lot better. Stated pain was worse yesterday, stated had a history of kidney stones. Patient stated have some 2 diarrhea today with no associated nausea or vomiting. Patient complains of some general weakness, was living together and unable to care for himself at home. Patient denies any headache or dizziness, denies any chest pain, or shortness of breath. 10-8 STATES STOOLS ARE NOT WATER STATES HAS A STOOL NOW NEEDS PT AND OT NOT SAFE FOR HOME AT THIS TIME-NEEDS SNF DW RN AND PT AND CM 10-9 AWAIT SAFE PLACEMENT AT SNF AWAIT [facility] AND CT APPROVAL PRIOR TO DC HAS BL NEPHROSTOMY TUBES IN PLACE 10-10 HAS BEEN AUTHORIZED TO GO TO SNF AT [facility] PER CT NEEDS ANTIBIOTICS PER ID HAS BL NEPHROSTOMY TUBES IN PLACE NO OTHER NEW COMPLAINTS 10-11 HAS BEEN ACCEPTED TO GO TO SNF BY CT NEEDS MEDS ADJUSTED AND PRIVATE ROOM AT SNF HOPEFULLY TO SNF [facility] DW RN AND PT CONTINUE CURRENT TREATMENT AM LABS 10-12 HAS BEEN ACCEPTED AT [facility] BY CT DC TO SNF TODAY DW RN AND PT AND CM ANTIBIOTICS PER ID DS: Diagnosis - Discharge Diagnosis (1) Bacteremia Status: Acute (2) C. difficile colitis Status: Acute (3) Obstructive uropathy Status: Chronic (4) Atrial fibrillation Status: Chronic (5) Acute on chronic kidney failure Status: Chronic (6) Acute pyelonephritis Status: Chronic (7) SANDI (acute kidney injury) Status: Chronic (8) Obstructed nephrostomy tube Status: Acute (9) Nephrostomy complication Status: Acute DS: Medications - Discharge Medications Prescriptions: dronabinol 2.5 mg PO AC LUNCH #30 cap dronabinol [Marinol] 2.5 mg PO AC BREAKFAST #30 cap vancomycin 125 mg PO QID #80 cap DS: Summary Hospital Course: 78-year-old male with past medical history significant for bladder cancer status post urostomy and bilateral nephrostomy tubes, COPD, history of prostate cancer, chronic kidney disease and hypotension presents to the emergency department for the evaluation of diarrhea times 1 month. He endorses accompanying generalized weakness. His home health care provider came to see him earlier today and called EMS as the patient was covered in feces and unable to care for himself. He states he has been having diarrhea approximately 4-5 times per day. Denies any bloody or tarry stools. Has a history of C. difficile. Denies any chest pain or shortness of breath. No abdominal pain. No nausea/vomiting/diarrhea. No fever/chills. No lateralizing signs/symptoms. 10-3 Follow up for C. Diff colitis. Patient is doing well. He denies any chest pain, SOB, fever, chills. He has been tolerating PO Vancomycin well. 10-4 Follow up for C. Diff colitis. Patient is doing well. No acute concerns. No fever, chills. 10-5 Follow-up C. difficile, history of bladder cancer, status post urostomy and bilateral nephrostomy, acute on CKD, hypotension, atrial fibrillation. Patient seen and evaluated, laying in bed, alert and oriented x3, denies any pain except pain in his bottom. Patient stated he is trying to turn side to side instead of laying down. Patient stated this is not inguinal and has been going on. Patient denies any fever or chills, denies any headache or dizziness , denies any pain, chest pain, or shortness of breath. Patient denies any nausea or vomiting. Patient complains of diarrhea x1 today. 10-6 Follow-up C. difficile, history of bladder cancer, status post urostomy and bilateral nephrostomy, acute on CKD, hypotension, atrial fibrillation. Patient seen and examined, alert and oriented x 3, lying in bed, stated 1 loose stool today so far. Stated he is taking the vancomycin for it. Patient denies any nausea or vomiting. Patient complaints of right flank pain, stated he have stone on right left side, patient he have 3 tubes. Discussed urinary culture and a re-check. Patient denies any fever or chills, denies any nausea or vomiting.. 10-7 Follow-up C. difficile, history of bladder cancer, status post urostomy and bilateral nephrostomy, acute on CKD, hypotension, atrial fibrillation. Patient seen and examined laying in bed in a sitting position patient denies any fever or chills. Stated pain is a lot better. Stated pain was worse yesterday, stated had a history of kidney stones. Patient stated have some 2 diarrhea today with no associated nausea or vomiting. Patient complains of some general weakness, was living together and unable to care for himself at home. Patient denies any headache or dizziness, denies any chest pain, or shortness of breath. 10-8 STATES STOOLS ARE NOT WATER STATES HAS A STOOL NOW NEEDS PT AND OT NOT SAFE FOR HOME AT THIS TIME-NEEDS SNF DW RN AND PT AND CM 10-9 AWAIT SAFE PLACEMENT AT SNF AWAIT [facility] AND CT APPROVAL PRIOR TO DC HAS BL NEPHROSTOMY TUBES IN PLACE 10-10 HAS BEEN AUTHORIZED TO GO TO SNF AT [facility] PER CT NEEDS ANTIBIOTICS PER ID HAS BL NEPHROSTOMY TUBES IN PLACE NO OTHER NEW COMPLAINTS 10-11 HAS BEEN ACCEPTED TO GO TO SNF BY CT NEEDS MEDS ADJUSTED AND PRIVATE ROOM AT SNF HOPEFULLY TO SNF [facility] DW RN AND PT CONTINUE CURRENT TREATMENT AM LABS -12 HAS BEEN ACCEPTED AT [facility] BY CT DC TO SNF TODAY DW RN AND PT AND CM ANTIBIOTICS PER ID - Time Spent with Patient Total time spent providing and/or coordinating discharge services: Greater than 30 minutes - Quality: VTE Deep Vein Thrombosis/Pulmonary Embolism Present on Admission: No Exam Vital signs: Vital Signs 06/08/18 11:40 06/08/18 12:00 06/08/18 16:00 Temperature 94.8 F L 97.4 F L Pulse Rate 90 87 82 Respiratory Rate 20 16 Blood Pressure 138/86 141/76 H Pulse Oximetry 100 06/08/18 20:00 06/08/18 20:05 06/09/18 00:00 Temperature 98.2 F 97.4 F L Pulse Rate 79 81 100 H Respiratory Rate 18 18 Blood Pressure 115/59 L 117/58 L Pulse Oximetry 95 97 06/09/18 00:05 06/09/18 03:50 06/09/18 04:00 Temperature 97.4 F L Pulse Rate 92 H 80 84 Respiratory Rate 18 Blood Pressure 118/71 Pulse Oximetry 98 06/09/18 08:00 Temperature 98.4 F Pulse Rate 72 Respiratory Rate 16 Blood Pressure 135/87 Pulse Oximetry 98 Intake & Output 06/08/18 06/09/18 06/09/18 18:59 06:59 18:59 Intake Total 2059 / 0 1100 / 1100 100 / 100 Output Total 800 / 800 1949 / 1949 Balance 1260 / 1260 -850 / -850 100 / 100 Weight 71.9 kg Intake: IV 1100 / 1100 1100 / 1100 100 / 100 NS Inj 1,000 ML @ 70 mls/hr IV. 1000 / 1000 1000 / 1000 CONT .[id number] TRAVIS Rx#:[id number] Zerbaxa Inj 750 MG In NS Inj 100 / 100 100 / 100 100 / 100 100 ML @ 100 mls/hr IV.SIG Q8H TRAVIS Rx#:[id number] Oral 960 / 960 Output: Urine 800 / 800 Urine Amount (Stoma) 1949 Continent Urostomy 900 / 900 Nephrostomy Tube Left 100 / 100 Nephrostomy Tube Right 950 / 950 Other: Date of Last Bowel Movement 06/08/18 06/08/18 06/08/18 Narrative: GENERAL: Well-developed, frail, thin male, alert and oriented x3, in no apparent distress SKIN: Warm and dry. Small sacral wound, and sacral redness, on specialty mattress. HEAD: Atraumatic. Normocephalic. EYES: Pupils equal and round. No scleral icterus. No injection or drainage. ENT: No nasal bleeding or discharge. Mucous membranes pink and moist. NECK: Trachea midline. No JVD. CARDIOVASCULAR: Regular rate and rhythm. RESPIRATORY: No accessory muscle use. Clear to auscultation. Breath sounds equal bilaterally. GASTROINTESTINAL: Abdomen soft, non-tender, nondistended. Hepatic and splenic margins not palpable. : Right lower abdominal urostomy tube with leakage of urine, bilateral nephrostomy tube intact, left draining well, right DRAINING WELL NOW TOO MUSCULOSKELETAL: Extremities without clubbing, cyanosis, or edema. No obvious deformities. NEUROLOGICAL: Awake and alert. No obvious cranial nerve deficits. Motor grossly within normal limits. Generalized weakness, moving all extremities normal speech. PSYCHIATRIC: Appropriate mood and affect; insight and judgment normal. Results Procedures completed during hospitalization: NEPHROSTOMY TUBE REPLACEMENT Completed studies during hospitalization: Laboratory Results WBC 5.5 th/mm3 (4.0-11.0) 06/09/18 05:25 RBC 2.84 mil/mm3 (4.50-5.90) L 06/09/18 05:25 Hgb 9.0 gm/dL (13.0-17.0) L 06/09/18 05:25 Hct 27.6 % (39.0-51.0) L 06/09/18 05:25 MCV 97.4 fL (80.0-100.0) 06/09/18 05:25 MCH 31.8 pg (27.0-34.0) 06/09/18 05:25 MCHC 32.7 % (32.0-36.0) 06/09/18 05:25 RDW 17.0 % (11.6-17.2) 06/09/18 05:25 Plt Count 215 th/mm3 (150-450) 06/09/18 05:25 MPV 8.0 fL (7.0-11.0) 06/09/18 05:25 Neut % (Auto) 56.8 % (16.0-70.0) 06/09/18 05:25 Lymph % (Auto) 27.9 % (9.0-44.0) 06/09/18 05:25 Kimble % (Auto) 10.6 % (0.0-8.0) H 06/09/18 05:25 Eos % (Auto) 3.6 % (0.0-4.0) 06/09/18 05:25 Baso % (Auto) 1.1 % (0.0-2.0) 06/09/18 05:25 Neut # (Auto) 3.1 th/mm3 (1.8-7.7) 06/09/18 05:25 Lymph # (Auto) 1.5 th/mm3 (1.0-4.8) 06/09/18 05:25 Kimble # (Auto) 0.6 th/mm3 (0.0-0.9) 06/09/18 05:25 Eos # (Auto) 0.2 th/mm3 (0.0-0.4) 06/09/18 05:25 Baso # (Auto) 0.1 th/mm3 (0.0-0.2) 06/09/18 05:25 WBC Differential . 06/09/18 05:25 Differential Comment Auto diff final 06/09/18 05:25 PT 11.1 sec (9.8-11.6) 05/30/18 20:00 INR 1.1 Ratio 05/30/18 20:00 APTT 25.0 sec (24.3-30.1) 05/30/18 20:00 Sodium 141 meq/L (136-145) 06/09/18 05:25 Potassium 5.2 meq/L (3.5-5.1) H 06/09/18 05:25 Chloride 113 meq/L (98-107) H 06/09/18 05:25 Carbon Dioxide 22.3 meq/L (21.0-32.0) 06/09/18 05:25 Anion Gap 6 meq/L (5-15) 06/09/18 05:25 BUN 35 mg/dL (7-18) H 06/09/18 05:25 Creatinine 2.01 mg/dL (0.60-1.30) H 06/09/18 05:25 Estimated GFR 32 mL/min (>89) L 06/09/18 05:25 Random Glucose 77 mg/dL (74-106) 06/09/18 05:25 Hemoglobin A1c 5.0 % (4.3-6.0) 06/06/18 06:55 Lactic Acid 1.8 mmol/L (0.4-2.0) 05/30/18 20:11 Calcium 8.1 mg/dL (8.5-10.1) L 06/09/18 05:25 Prot Corrected Calcium 8.5 mg/dL (8.5-10.1) 06/03/18 07:39 Phosphorus 2.5 mg/dL (2.5-4.9) 06/09/18 05:25 Magnesium 1.6 mg/dL (1.5-2.5) 06/09/18 05:25 Total Bilirubin 0.2 mg/dL (0.2-1.0) 06/09/18 05:25 AST 29 U/L (15-37) 06/09/18 05:25 ALT 33 U/L (12-78) 06/09/18 05:25 Alkaline Phosphatase 72 U/L (45-117) 06/09/18 05:25 Total Creatine Kinase 45 U/L (39-308) 05/30/18 20:00 Troponin I Less than 0.02 ng/mL (0.02-0.05) L 05/30/18 20:00 Total Protein 5.5 g/dL (6.4-8.2) L 06/09/18 05:25 Albumin 2.1 g/dL (3.4-5.0) L 06/09/18 05:25 Lipase 138 U/L (73-393) 05/30/18 20:00 TSH 1.900 uIU/mL (0.358-3.740) 06/06/18 06:55 Free T4 0.74 ng/dL (0.76-1.46) L 06/06/18 06:55 Ur Collection Type Cp Bleacher Operator 06/02/18 17:30 Urine Color Yellow (Yellw/Straw) 06/02/18 22:45 Urine Clarity Cloudy (Clear) H 06/02/18 22:45 Urine pH 6.0 (5.0-8.5) 06/02/18 22:45 Ur Specific Crowley 1.009 (1.002-1.035) 06/02/18 22:45 Urine Protein 30 mg/dL (Neg-Trace) H 06/02/18 22:45 Urine Glucose (UA) Negative mg/dL (Negative) 06/02/18 22:45 Urine Ketones Negative mg/dL (Negative) 06/02/18 22:45 Urine Occult Blood Large (Negative) H 06/02/18 22:45 Urine Nitrate Positive (Negative) H 06/02/18 22:45 Urine Bilirubin Negative (Negative) 06/02/18 22:45 Urine Ictotest Cp Bleacher Operator 06/02/18 17:30 Urine Urobilinogen Less than 2 mg/dL (Less than 2) 06/02/18 22:45 Ur Leukocyte Esterase Large (Negative) H 06/02/18 22:45 Urine RBC /hpf (0-3) 06/02/18 22:45 Urine WBC /hpf (0-5) 06/02/18 22:45 Urine WBC Clumps Moderate (None) H 06/02/18 22:45 Ur Squamous Epith Cells <1 /hpf (0-5) 06/02/18 22:45 Ur Transition Epith Cell Cp Bleacher Operator 06/02/18 17:30 Ur Renal Epithelial Cell Cp Bleacher Operator 06/02/18 17:30 Calcium Carbonate Cryst Cp Bleacher Operator 06/02/18 17:30 Calcium Oxalate Crystal Cp Bleacher Operator 06/02/18 17:30 Leucine Crystals Cp Bleacher Operator 06/02/18 17:30 Cystine Crystals Cp Bleacher Operator 06/02/18 17:30 Uric Acid Crystals Cp Bleacher Operator 06/02/18 17:30 Triple Phos Crystals Cp Bleacher Operator 06/02/18 17:30 Cholesterol Crystals Cp Bleacher Operator 06/02/18 17:30 Tyrosine Crystals Cp Bleacher Operator 06/02/18 17:30 Amorphous Sediment Cp Bleacher Operator 06/02/18 17:30 Urine Bacteria Cp Bleacher Operator 06/02/18 17:30 Hyaline Casts Cp Bleacher Operator 06/02/18 17:30 Granular Casts Cp Bleacher Operator 06/02/18 17:30 Fine Granular Casts Cp Bleacher Operator 06/02/18 17:30 Coarse Granular Casts Cp Bleacher Operator 06/02/18 17:30 Waxy Casts Cp Bleacher Operator 06/02/18 17:30 RBC Casts Cp Bleacher Operator 06/02/18 17:30 WBC Casts Cp Bleacher Operator 06/02/18 17:30 Urine Mucus Cp Bleacher Operator 06/02/18 17:30 Urine Trichomonas Cp Bleacher Operator 06/02/18 17:30 Urine Yeast Cp Bleacher Operator 06/02/18 17:30 Ur Yeast w Hyphae Cp Bleacher Operator 06/02/18 17:30 Urine Sperm Cp Bleacher Operator 06/02/18 17:30 Ur Oval Fat Bodies Cp Bleacher Operator 06/02/18 17:30 Micro UA Comment Culture indicated 06/02/18 22:45 Ur Microscopic Review Not Reportable 06/02/18 22:45 Urine Culture Comments Culture indicated 06/02/18 22:45 Urine Collection Time Cp Bleacher Operator 06/02/18 17:30 Urine Comment Cp Bleacher Operator 06/02/18 17:30 Stool C.difficile Ag Positive (Negative) H 05/30/18 23:15 Stool C.difficile Toxin Negative (Negative) 05/30/18 23:15 Stl C.difficile DNA Amp Positive (Negative) H 05/30/18 23:15 St C. diff Tox Epid 027 Negative (Negative) 05/30/18 23:15 Impressions Chest X-Ray 05/30/18 19:05 CONCLUSION: No evidence of acute cardiopulmonary disease. Abdomen/Bladder Ultrasound 06/04/18 00:00 CONCLUSION: 1. Limited study due to patient's body habitus and being uncooperative. 2. Right kidney not visualized. 3. Increased echogenicity of the left renal parenchyma. 4. No evidence of hydronephrosis.. Nephrostomy 06/05/18 00:00 CONCLUSION: 1. Uncomplicated nephrostomy tube placement as above. Labs on day of discharge: Labs from last 24 hours 06/09/18 06/09/18 05:25 05:25 WBC 5.5 RBC 2.84 L Hgb 9.0 L Hct 27.6 L MCV 97.4 MCH 31.8 MCHC 32.7 RDW 17.0 Plt Count 215 MPV 8.0 Neut % (Auto) 56.8 Lymph % (Auto) 27.9 Kimble % (Auto) 10.6 H Eos % (Auto) 3.6 Baso % (Auto) 1.1 Neut # (Auto) 3.1 Lymph # (Auto) 1.5 Kimble # (Auto) 0.6 Eos # (Auto) 0.2 Baso # (Auto) 0.1 WBC Differential . Differential Comment Auto diff final Sodium 141 Potassium 5.2 H Chloride 113 H Carbon Dioxide 22.3 Anion Gap 6 BUN 35 H Creatinine 2.01 H Estimated GFR 32 L Random Glucose 77 Calcium 8.1 L Phosphorus 2.5 Magnesium 1.6 Total Bilirubin 0.2 AST 29 ALT 33 Alkaline Phosphatase 72 Total Protein 5.5 L Albumin 2.1 L - Impressions ITS Impressions Chest X-Ray 05/30/18 19:05 CONCLUSION: No evidence of acute cardiopulmonary disease. Abdomen/Bladder Ultrasound 06/04/18 00:00 CONCLUSION: 1. Limited study due to patient's body habitus and being uncooperative. 2. Right kidney not visualized. 3. Increased echogenicity of the left renal parenchyma. 4. No evidence of hydronephrosis.. Nephrostomy 06/05/18 00:00 CONCLUSION: 1. Uncomplicated nephrostomy tube placement as above. Discharge Plan - Discharge Disposition Patient Disposition: 03 Discharge to SNF - Discharge Condition Condition: Fair - Discharge Order Discharge Orders: Discharge Order (Routine); Ordered 06/09/18 Ordered By: David Narvaez - Discharge Details Anticipated Discharge Date: 06/09/18 Discharge Comment: DC TO SNF TODAY - Physicians Team Primary Care Provider: [facility] Attending Provider: David Narvaez Other Providers: Miguelito Stewart ; Della Rocha MD
[2018-06-09] MEDS: Sod Chloride 0.9% Inj 1,000 ML IV.CONT SCH (12:24)
[2018-06-10] MEDS: Sod Chloride 0.9% Inj 1,000 ML IV.CONT SCH ×2 (04:25→18:14)
[2018-06-10 06:18] LABS: Baso # (Auto) 0.1 th/mm3 (0.0-0.2); Baso % (Auto) 1.3 % (0.0-2.0); Eos # (Auto) 0.2 th/mm3 (0.0-0.4); Eos % (Auto) 3.7 % (0.0-4.0); Hemoglobin 9.7 gm/dL (13.0-17.0); Lymph # (Auto) 1.5 th/mm3 (1.0-4.8); Lymph % (Auto) 26.8 % (9.0-44.0); Mean Corpuscular HGB Conc 33.5 % (32.0-36.0); Mean Corpuscular Hemoglobin 32.3 pg (27.0-34.0); Mean Corpuscular Volume 96.3 fL (80.0-100.0); Mean Platelet Volume 8.2 fL (7.0-11.0); Mono # (Auto) 0.6 th/mm3 (0.0-0.9); Mono % (Auto) 10.1 % (0.0-8.0); Neut # (Auto) 3.2 th/mm3 (1.8-7.7); Neut % (Auto) 58.1 % (16.0-70.0); Platelet Count 228 th/mm3 (150-450); Red Blood Count 3.01 mil/mm3 (4.50-5.90); Red Cell Distribution Width 16.8 % (11.6-17.2); White Blood Count 5.5 th/mm3 (4.0-11.0)
[2018-06-10] MEDS: Ceftolozane/Tazobactam Inj 750 MG in Sodium Chlor 0.9% Inj 100 ML IV.SIG SCH ×3 (06:25→23:12)
[2018-06-10 06:45] LABS: Albumin 2.3 g/dL (3.4-5.0); Anion Gap 7 meq/L (5-15); Aspartate Aminotransferase 40 U/L (15-37); Blood Urea Nitrogen 35 mg/dL (7-18); Calcium 8.3 mg/dL (8.5-10.1); Carbon Dioxide 21.4 meq/L (21.0-32.0); Chloride 113 meq/L (98-107); Glomerular Filtration Rate 31 mL/min (>89); Glucose,Random 76 mg/dL (74-106); Magnesium 1.6 mg/dL (1.5-2.5); Potassium 5.3 meq/L (3.5-5.1); Sodium 141 meq/L (136-145)
[2018-06-10 06:46] LABS: Alanine Aminotransferase 42 U/L (12-78); Phosphorus 3.3 mg/dL (2.5-4.9)
[2018-06-10 06:48] LABS: Alkaline Phosphatase 79 U/L (45-117); Total Protein 5.9 g/dL (6.4-8.2)
[2018-06-10] MEDS: Linezolid 600 MG Tablet PO SCH ×2 (09:50→23:16)
[2018-06-10] MEDS: Pilocarpine HCl 5 MG Tablet PO SCH ×2 (09:50→23:15)
[2018-06-10] MEDS: Senna/Docusate Sodium 8.6/50 MG Tablet PO SCH ×2 (09:50→23:16)
--- NOTE | 2018-06-10 15:53 | P.PN ---
Subjective Interval history: Follow up for cdiff colitis: Patient awakes to voice, oriented x2. Had a soft formed stool yesterday. No diarrhea observed. Eating fair. Has no complaints. ROS difficult to obtain, poor historian. Denies any chest pain, no shortness of breath. Not very talkative. Physical Exam Vital signs: Vital Signs 06/09/18 16:00 06/09/18 17:00 06/09/18 20:00 Temperature 97.6 F Pulse Rate 96 H 91 H 87 Respiratory Rate 18 Blood Pressure 153/93 H Pulse Oximetry 99 06/09/18 20:22 06/10/18 00:00 06/10/18 04:00 Temperature 97.2 F L 97.6 F 97.7 F Pulse Rate 108 H 91 H 77 Respiratory Rate 20 18 18 Blood Pressure 134/94 H 132/89 129/75 Pulse Oximetry 98 99 99 06/10/18 08:00 06/10/18 12:00 Temperature 97.5 F L 96.8 F L Pulse Rate 111 H 105 H Respiratory Rate 22 23 Blood Pressure 154/101 H 185/112 H Pulse Oximetry 99 98 Intake & Output 06/09/18 06/10/18 06/10/18 18:59 06:59 18:59 Intake Total 1460 / 1460 1100 / 1100 100 / 100 Output Total 900 / 900 2825 / 2825 Balance 560 / 560 -1725 / -1725 100 / 100 Intake: IV 1100 / 1100 1100 / 1100 100 / 100 NS Inj 1,000 ML @ 70 mls/hr IV. 900 / 900 1000 / 1000 CONT .[id number] TRAVIS Rx#:[id number] Zerbaxa Inj 750 MG In NS Inj 200 / 200 100 / 100 100 / 100 100 ML @ 100 mls/hr IV.SIG Q8H TRAVIS Rx#:[id number] Oral 360 / 360 Output: Urine 900 / 900 Urine Amount (Stoma) 2825 / 2825 Continent Urostomy 1400 / 1400 Nephrostomy Tube Left Nephrostomy Tube Right 1399 / 1400 Other: Date of Last Bowel Movement 06/08/18 # Bowel Movements 0 Narrative: GENERAL: Thin, frail-appearing elderly male. SKIN: Warm and dry. Small sacral wound, and sacral redness, on specialty mattress. HEAD: Atraumatic. Normocephalic. EYES: Pupils equal and round. No scleral icterus. No injection or drainage. ENT: No nasal bleeding or discharge. Mucous membranes pink and moist. NECK: Trachea midline. No JVD. CARDIOVASCULAR: Regular rate and rhythm. RESPIRATORY: No accessory muscle use. Clear to auscultation. Breath sounds equal bilaterally. GASTROINTESTINAL: Abdomen soft, non-tender, nondistended. Hepatic and splenic margins not palpable. : Right lower abdominal urostomy tube, bilateral nephrostomy tube intact MUSCULOSKELETAL: Extremities without clubbing, cyanosis, or edema. No obvious deformities. Pedal pulses 2+. NEUROLOGICAL: Awake, oriented x2. Speech clear. No focal deficits. PSYCHIATRIC: Appropriate mood and affect; insight and judgment normal. - Urinary Catheter Management 3-way Urethral Cath placed during this visit: no Results - Labs CBC & Chem 7: 06/10/18 05:20 06/10/18 05:20 Laboratory Results - last 24 hr 06/10/18 06/10/18 05:20 05:20 WBC 5.5 RBC 3.01 L Hgb 9.7 L Hct 29.0 L MCV 96.3 MCH 32.3 MCHC 33.5 RDW 16.8 Plt Count 228 MPV 8.2 Neut % (Auto) 58.1 Lymph % (Auto) 26.8 [place] % (Auto) 10.1 H Eos % (Auto) 3.7 Baso % (Auto) 1.3 Neut # (Auto) 3.2 Lymph # (Auto) 1.5 [place] # (Auto) 0.6 Eos # (Auto) 0.2 Baso # (Auto) 0.1 WBC Differential . Differential Comment Auto diff final Sodium 141 Potassium 5.3 H Chloride 113 H Carbon Dioxide 21.4 Anion Gap 7 BUN 35 H Creatinine 2.08 H Estimated GFR 31 L Random Glucose 76 Calcium 8.3 L Phosphorus 3.3 Magnesium 1.6 Total Bilirubin 0.2 AST 40 H ALT 42 Alkaline Phosphatase 79 Total Protein 5.9 L Albumin 2.3 L - Procedures NEPHROSTOMY TUBE REPLACEMENT Assessment and Plan - Assessment (1) Bacteremia Code(s): R78.81 - Bacteremia Status: Acute (2) C. difficile colitis Code(s): A04.72 - Enterocolitis due to Clostridium difficile, not specified as recurrent Status: Acute (3) Obstructive uropathy Code(s): N13.9 - Obstructive and reflux uropathy, unspecified Status: Chronic (4) Atrial fibrillation Code(s): I48.91 - Unspecified atrial fibrillation Status: Chronic (5) Acute on chronic kidney failure Code(s): N17.9 - Acute kidney failure, unspecified; N18.9 - Chronic kidney disease, unspecified Status: Chronic (6) Acute pyelonephritis Code(s): N10 - Acute pyelonephritis Status: Chronic (7) SANDI (acute kidney injury) Code(s): N17.9 - Acute kidney failure, unspecified Status: Chronic (8) Obstructed nephrostomy tube Code(s): T83.092A - Other mechanical complication of nephrostomy catheter, initial encounter Status: Acute (9) Nephrostomy complication Code(s): N99.528 - Other complication of incontinent external stoma of urinary tract Status: Acute - Plan 78-year-old male with past medical history significant for bladder cancer status post urostomy and bilateral nephrostomy tubes, COPD, history of prostate cancer, chronic kidney disease, history of parotid gland cancer, hyperlipidemia and hypotension presents to the emergency department for the evaluation of diarrhea times 1 month. C. Diff colitis - WBC is improved from 14.3 --> 7.5 - Diarrhea is improving, monitor signs and symptoms -having formed stools now. -Vanco per ID, taper dose as followed: cont vancomycin 500 mg qid x 2 weeks (thru 06/17) will switch to vancomycin taper after 2 weeks of full dose completed: vancomycin 125 mg bid for 1 week vancomycin 125 mg daily for 1 week vancomycin 125 mg q 48 hrs for 1 week vancomycin 125 mg q 72 hrs x 5 doses History of Bladder Cancer/ /post Urostomy/Bilateral Nephrostomy -Urine CX with Pseudomonas aeruginosa, multidrug-resistant, repeat urine culture -ID following -Continue Zerbaxa abd Zyvox. -Urostomy and nephrostomy care. -On assessment right nephrostomy tube had no urine drainage. C/O right flank pain. IR replaced right nephrostomy tubes on 06/05 -ID final recommendations: cont zerbaxa, renally adjusted x 2 weeks total ( thru 06/19) and zyvox for VRE UTI x weeks total (thru 06/20) -We will order PICC line per ID recommendation Atrial fibrillation - Currently rate control, sometimes 100s - Continue Apixaban 2.5mg BID. -monitor HR COPD No SOB, No Wheezes - DuoNeb PRN. Acute on chronic renal insufficiency Hyperkalemia, potassium 5.3 -Creatinine improving 2.08 today, baseline 2.5 -Continue IVF -Monitor renal function -We will give Kayexalate Hypotension, resolving, now with elevated BP -decrease Midodrine to 5 mg PO BID -monitor BP History of parotid gland cancer -Continue same regimen -Monitor signs and symptoms Generalized weakness -PT/OT consult eval and treat -increase activity DVT prophylaxiscontinue Eliquis Labs in am Code Status: Full code Discussed Condition With: Pt, RN, CM Discharge Planning: To SNF on Tuesday, pt. is a discharge.
[2018-06-10] MEDS ORDERED: Sodium Polystyrene Sulfonate/Sorbitol Liq 15 GM/60 ML UDC PO ONE (17:42)
[2018-06-11] MEDS: Ceftolozane/Tazobactam Inj 750 MG in Sodium Chlor 0.9% Inj 100 ML IV.SIG SCH ×3 (05:30→22:12)
[2018-06-11 06:08] LABS: Baso # (Auto) 0.1 th/mm3 (0.0-0.2); Baso % (Auto) 1.3 % (0.0-2.0); Eos # (Auto) 0.2 th/mm3 (0.0-0.4); Eos % (Auto) 3.8 % (0.0-4.0); Hematocrit 26.8 % (39.0-51.0); Hemoglobin 8.9 gm/dL (13.0-17.0); Lymph # (Auto) 1.5 th/mm3 (1.0-4.8); Lymph % (Auto) 25.3 % (9.0-44.0); Mean Corpuscular HGB Conc 33.4 % (32.0-36.0); Mean Corpuscular Hemoglobin 32.3 pg (27.0-34.0); Mean Corpuscular Volume 96.8 fL (80.0-100.0); Mean Platelet Volume 7.8 fL (7.0-11.0); Mono # (Auto) 0.6 th/mm3 (0.0-0.9); Mono % (Auto) 10.3 % (0.0-8.0); Neut # (Auto) 3.4 th/mm3 (1.8-7.7); Neut % (Auto) 59.3 % (16.0-70.0); Platelet Count 225 th/mm3 (150-450); Red Blood Count 2.77 mil/mm3 (4.50-5.90); Red Cell Distribution Width 16.3 % (11.6-17.2); White Blood Count 5.8 th/mm3 (4.0-11.0)
[2018-06-11 06:33] LABS: Albumin 2.3 g/dL (3.4-5.0); Anion Gap 6 meq/L (5-15); Aspartate Aminotransferase 38 U/L (15-37); Blood Urea Nitrogen 36 mg/dL (7-18); Calcium 8.2 mg/dL (8.5-10.1); Carbon Dioxide 23.9 meq/L (21.0-32.0); Chloride 110 meq/L (98-107); Glomerular Filtration Rate 32 mL/min (>89); Glucose,Random 78 mg/dL (74-106); Magnesium 1.7 mg/dL (1.5-2.5); Potassium 5.3 meq/L (3.5-5.1); Sodium 140 meq/L (136-145)
[2018-06-11 06:36] LABS: Alanine Aminotransferase 44 U/L (12-78); Alkaline Phosphatase 82 U/L (45-117); Total Protein 5.9 g/dL (6.4-8.2)
[2018-06-11] MEDS: Pilocarpine HCl 5 MG Tablet PO SCH ×2 (09:17→22:15)
[2018-06-11] MEDS: Linezolid 600 MG Tablet PO SCH ×2 (09:17→22:15)
[2018-06-11] MEDS: Senna/Docusate Sodium 8.6/50 MG Tablet PO SCH ×2 (09:18→22:15)
[2018-06-11] MEDS ORDERED: Heparin Central Flush 100 UNIT/ML 5 ML Vial IV.FLUSH PRN (11:21)
[2018-06-11] MEDS: Sod Chloride 0.9% Inj 1,000 ML IV.CONT SCH ×2 (11:48→22:16)
--- NOTE | 2018-06-11 12:04 | P.PNIM ---
Subjective Interval history: 78-year-old male with past medical history significant for bladder cancer status post urostomy and bilateral nephrostomy tubes, COPD, history of prostate cancer, chronic kidney disease and hypotension presents to the emergency department for the evaluation of diarrhea times 1 month. He endorses accompanying generalized weakness. His home health care provider came to see him earlier today and called EMS as the patient was covered in feces and unable to care for himself. He states he has been having diarrhea approximately 4-5 times per day. Denies any bloody or tarry stools. Has a history of C. difficile. Denies any chest pain or shortness of breath. No abdominal pain. No nausea/vomiting/diarrhea. No fever/chills. No lateralizing signs/symptoms. 10-3 Follow up for C. Diff colitis. Patient is doing well. He denies any chest pain, SOB, fever, chills. He has been tolerating PO Vancomycin well. 10-4 Follow up for C. Diff colitis. Patient is doing well. No acute concerns. No fever, chills. 10-5 Follow-up C. difficile, history of bladder cancer, status post urostomy and bilateral nephrostomy, acute on CKD, hypotension, atrial fibrillation. Patient seen and evaluated, laying in bed, alert and oriented x3, denies any pain except pain in his bottom. Patient stated he is trying to turn side to side instead of laying down. Patient stated this is not inguinal and has been going on. Patient denies any fever or chills, denies any headache or dizziness , denies any pain, chest pain, or shortness of breath. Patient denies any nausea or vomiting. Patient complains of diarrhea x1 today. 10-6 Follow-up C. difficile, history of bladder cancer, status post urostomy and bilateral nephrostomy, acute on CKD, hypotension, atrial fibrillation. Patient seen and examined, alert and oriented x 3, lying in bed, stated 1 loose stool today so far. Stated he is taking the vancomycin for it. Patient denies any nausea or vomiting. Patient complaints of right flank pain, stated he have stone on right left side, patient he have 3 tubes. Discussed urinary culture and a re-check. Patient denies any fever or chills, denies any nausea or vomiting.. 10-7 Follow-up C. difficile, history of bladder cancer, status post urostomy and bilateral nephrostomy, acute on CKD, hypotension, atrial fibrillation. Patient seen and examined laying in bed in a sitting position patient denies any fever or chills. Stated pain is a lot better. Stated pain was worse yesterday, stated had a history of kidney stones. Patient stated have some 2 diarrhea today with no associated nausea or vomiting. Patient complains of some general weakness, was living together and unable to care for himself at home. Patient denies any headache or dizziness, denies any chest pain, or shortness of breath. 10-8 STATES STOOLS ARE NOT WATER STATES HAS A STOOL NOW NEEDS PT AND OT NOT SAFE FOR HOME AT THIS TIME-NEEDS SNF DW RN AND PT AND CM 10-9 AWAIT SAFE PLACEMENT AT [facility] AWAIT [facility] AND [place] APPROVAL PRIOR TO DC HAS BL NEPHROSTOMY TUBES IN PLACE 10-10 HAS BEEN AUTHORIZED TO GO TO SNF AT [facility] PER [place] NEEDS ANTIBIOTICS PER ID HAS BL NEPHROSTOMY TUBES IN PLACE NO OTHER NEW COMPLAINTS 10-11 HAS BEEN ACCEPTED TO GO TO SNF BY [place] NEEDS MEDS ADJUSTED AND PRIVATE ROOM AT SNF [facility]OPEFULL[facility] TO SNF TOMORROW DW RN AND PT CONTINUE CURRENT TREATMENT AM LABS 10- HAS BEEN ACCEPTED AT [facility] BY [place] DC TO SNF TODAY DW RN AND PT AND CM ANTIBIOTICS PER ID cont vancomycin 500 mg qid x 2 weeks (thru 06/17) will switch to vancomycin taper after 2 weeks of full dose completed: vancomycin 125 mg bid for 1 week vancomycin 125 mg daily for 1 week vancomycin 125 mg q 48 hrs for 1 week vancomycin 125 mg q 72 hrs x 5 doses cont zerbaxa, renally adjusted x 2 weeks total (thru 06/19) cont zyvox for VRE UTI x weeks total (thru 06/20) [facility] Prescription Drug Monitoring Database has been queried and verified prior to prescribing the controlled substance. Acute pain exception. This patient has normal, predicted, physiological, and time limited response to an adverse mechanical stimulus associated with surgery, trauma, or acute illness as described in my notes. There is a lack of alternative treatment options other than to include the prescribed narcotic treatment for this condition. CONTINUE MARINOL 10-13 Follow up for cdiff colitis: Patient awakes to voice, oriented x2. Had a soft formed stool yesterday. No diarrhea observed. Eating fair. Has no complaints. ROS difficult to obtain, poor historian. Denies any chest pain, no shortness of breath. Not very talkative. 06-11 DC HELD DUE TO NO BED BEING AVAILABLE AND IV ANTIBIOTICS NOT AVAILABLE AT THE [facility] WILL HAVE BED AND ANTIBIOTICS TOMORROW DW RN AND PT AND CM Physical Exam Vital signs: Vital Signs 06/10/18 16:00 06/10/18 20:00 06/11/18 00:00 Temperature 96.7 F L 97.4 F L 97.3 F L Pulse Rate 73 90 86 Respiratory Rate 23 20 20 Blood Pressure 138/79 135/93 H 149/93 H Pulse Oximetry 99 98 96 06/11/18 04:00 06/11/18 08:00 Temperature 97.6 F 97.5 F L Pulse Rate 98 H 99 H Respiratory Rate 20 18 Blood Pressure 130/92 H 152/92 H Pulse Oximetry 97 96 Intake & Output 06/10/18 06/11/18 06/11/18 18:59 06:59 18:59 Intake Total 1160 / 1160 1425 / 1425 Output Total 1500 / 1500 1600 / 1600 Balance -340 / -340 -175 / -175 Intake: IV 200 / 200 1215 / 1215 NS Inj 1,000 ML @ 70 mls/hr IV. 1000 / 1000 CONT .[id number] TRAVIS Rx#:[id number] Zerbaxa Inj 750 MG In NS Inj 200 / 200 215 / 215 100 ML @ 100 mls/hr IV.SIG Q8H TRAVIS Rx#:[id number] Oral 960 / 960 210 / 210 Output: Urine 1500 / 1500 Urine Amount (Stoma) 1600 / 1600 Continent Urostomy 375 / 375 Nephrostomy Tube Left 650 / 650 Nephrostomy Tube Right 575 / 575 Other: # Incontinent Voids 4 # Urine Diapers 4 Date of Last Bowel Movement 06/10/18 06/11/18 # Incontinent Bowel Movements 2 Narrative: GENERAL: Thin, frail-appearing elderly male. SKIN: Warm and dry. Small sacral wound, and sacral redness, on specialty mattress. HEAD: Atraumatic. Normocephalic. EYES: Pupils equal and round. No scleral icterus. No injection or drainage. ENT: No nasal bleeding or discharge. Mucous membranes pink and moist. NECK: Trachea midline. No JVD. CARDIOVASCULAR: Regular rate and rhythm. RESPIRATORY: No accessory muscle use. Clear to auscultation. Breath sounds equal bilaterally. GASTROINTESTINAL: Abdomen soft, non-tender, nondistended. Hepatic and splenic margins not palpable. : Right lower abdominal urostomy tube, bilateral nephrostomy tube intact MUSCULOSKELETAL: Extremities without clubbing, cyanosis, or edema. No obvious deformities. Pedal pulses 2+. NEUROLOGICAL: Awake, oriented x2. Speech clear. No focal deficits. PSYCHIATRIC: Appropriate mood and affect; insight and judgment normal. - Urinary Catheter Management 3-way Urethral Cath placed during this visit: no Results - Labs CBC & Chem 7: 06/11/18 05:35 06/11/18 05:35 Laboratory Results - last 24 hr 06/11/18 06/11/18 05:35 05:35 WBC 5.8 RBC 2.77 L Hgb 8.9 L Hct 26.8 L MCV 96.8 MCH 32.3 MCHC 33.4 RDW 16.3 Plt Count 225 MPV 7.8 Neut % (Auto) 59.3 Lymph % (Auto) 25.3 [place] % (Auto) 10.3 H Eos % (Auto) 3.8 Baso % (Auto) 1.3 Neut # (Auto) 3.4 Lymph # (Auto) 1.5 [place] # (Auto) 0.6 Eos # (Auto) 0.2 Baso # (Auto) 0.1 WBC Differential . Differential Comment Auto diff final Sodium 140 Potassium 5.3 H Chloride 110 H Carbon Dioxide 23.9 Anion Gap 6 BUN 36 H Creatinine 2.00 H Estimated GFR 32 L Random Glucose 78 Calcium 8.2 L Phosphorus 3.0 Magnesium 1.7 Total Bilirubin 0.2 AST 38 H ALT 44 Alkaline Phosphatase 82 Total Protein 5.9 L Albumin 2.3 L - Procedures NEPHROSTOMY TUBE REPLACEMENT Assessment and Plan - Assessment (1) Bacteremia Code(s): R78.81 - Bacteremia Status: Acute (2) C. difficile colitis Code(s): A04.72 - Enterocolitis due to Clostridium difficile, not specified as recurrent Status: Acute (3) Obstructive uropathy Code(s): N13.9 - Obstructive and reflux uropathy, unspecified Status: Chronic (4) Atrial fibrillation Code(s): I48.91 - Unspecified atrial fibrillation Status: Chronic (5) Acute on chronic kidney failure Code(s): N17.9 - Acute kidney failure, unspecified; N18.9 - Chronic kidney disease, unspecified Status: Chronic (6) Acute pyelonephritis Code(s): N10 - Acute pyelonephritis Status: Chronic (7) SANDI (acute kidney injury) Code(s): N17.9 - Acute kidney failure, unspecified Status: Chronic (8) Obstructed nephrostomy tube Code(s): T83.092A - Other mechanical complication of nephrostomy catheter, initial encounter Status: Acute (9) Nephrostomy complication Code(s): N99.528 - Other complication of incontinent external stoma of urinary tract Status: Acute - Plan 78-year-old male with past medical history significant for bladder cancer status post urostomy and bilateral nephrostomy tubes, COPD, history of prostate cancer, chronic kidney disease, history of parotid gland cancer, hyperlipidemia and hypotension presents to the emergency department for the evaluation of diarrhea times 1 month. C. Diff colitis - WBC is improved from 14.3 --> 7.5 - Diarrhea is improving, monitor signs and symptoms -having formed stools now. -Vanco per ID, taper dose as followed: cont vancomycin 500 mg qid x 2 weeks (thru 06/17) will switch to vancomycin taper after 2 weeks of full dose completed: vancomycin 125 mg bid for 1 week vancomycin 125 mg daily for 1 week vancomycin 125 mg q 48 hrs for 1 week vancomycin 125 mg q 72 hrs x 5 doses History of Bladder Cancer/ /post Urostomy/Bilateral Nephrostomy -Urine CX with Pseudomonas aeruginosa, multidrug-resistant, repeat urine culture -ID following -Continue Zerbaxa abd Zyvox. -Urostomy and nephrostomy care. -On assessment right nephrostomy tube had no urine drainage. C/O right flank pain. IR replaced right nephrostomy tubes on 06/05 -ID final recommendations: cont zerbaxa, renally adjusted x 2 weeks total ( thru 06/19) and zyvox for VRE UTI x weeks total (thru 06/20) -We will order PICC line per ID recommendation Atrial fibrillation - Currently rate control, sometimes 100s - Continue Apixaban 2.5mg BID. -monitor HR COPD No SOB, No Wheezes - DuoNeb PRN. Acute on chronic renal insufficiency Hyperkalemia, potassium 5.3 -Creatinine improving 2.08 today, baseline 2.5 -Continue IVF -Monitor renal function -We will give Kayexalate Hypotension, resolving, now with elevated BP -decrease Midodrine to 5 mg PO BID -monitor BP History of parotid gland cancer -Continue same regimen -Monitor signs and symptoms Generalized weakness -PT/OT consult eval and treat -increase activity DVT prophylaxiscontinue Eliquis Labs in am Code Status: FULL CODE Discussed Condition With: RN AND PT AND CM Discharge Planning: NEEDS SAFE DC- POSITIVE [place] SNF AUTHORIZATION -CM WORKING ON SOLUTION NEEDS ID PARAMETERS HOPEFULLY TO SNF ON Tuesday-
[2018-06-11] MEDS: Heparin Central Flush 100 UNIT/ML 5 ML Vial IV.FLUSH SCH (12:26)
[2018-06-12] MEDS: Sod Chloride 0.9% Inj 1,000 ML IV.CONT SCH ×2 (04:57→12:54)
[2018-06-12] MEDS: Ceftolozane/Tazobactam Inj 750 MG in Sodium Chlor 0.9% Inj 100 ML IV.SIG SCH ×2 (06:07→13:54)
[2018-06-12 06:47] LABS: Baso # (Auto) 0.1 th/mm3 (0.0-0.2); Baso % (Auto) 1.2 % (0.0-2.0); Eos # (Auto) 0.2 th/mm3 (0.0-0.4); Eos % (Auto) 4.1 % (0.0-4.0); Hematocrit 27.1 % (39.0-51.0); Hemoglobin 9.2 gm/dL (13.0-17.0); Lymph # (Auto) 1.4 th/mm3 (1.0-4.8); Lymph % (Auto) 28.8 % (9.0-44.0); Mean Corpuscular HGB Conc 33.9 % (32.0-36.0); Mean Corpuscular Hemoglobin 32.6 pg (27.0-34.0); Mean Corpuscular Volume 96.2 fL (80.0-100.0); Mean Platelet Volume 7.6 fL (7.0-11.0); Mono # (Auto) 0.5 th/mm3 (0.0-0.9); Mono % (Auto) 10.1 % (0.0-8.0); Neut # (Auto) 2.8 th/mm3 (1.8-7.7); Neut % (Auto) 55.8 % (16.0-70.0); Platelet Count 210 th/mm3 (150-450); Red Blood Count 2.81 mil/mm3 (4.50-5.90)
[2018-06-12 07:11] LABS: Albumin 2.4 g/dL (3.4-5.0); Anion Gap 7 meq/L (5-15); Aspartate Aminotransferase 30 U/L (15-37); Blood Urea Nitrogen 33 mg/dL (7-18); Calcium 8.4 mg/dL (8.5-10.1); Carbon Dioxide 23.6 meq/L (21.0-32.0); Chloride 109 meq/L (98-107); Glomerular Filtration Rate 34 mL/min (>89); Glucose,Random 78 mg/dL (74-106); Magnesium 1.7 mg/dL (1.5-2.5); Sodium 140 meq/L (136-145)
[2018-06-12 07:12] LABS: Alanine Aminotransferase 39 U/L (12-78); Phosphorus 3.1 mg/dL (2.5-4.9)
[2018-06-12 07:14] LABS: Alkaline Phosphatase 86 U/L (45-117); Total Protein 6.3 g/dL (6.4-8.2)
[2018-06-12] MEDS: Heparin Central Flush 100 UNIT/ML 5 ML Vial IV.FLUSH SCH (10:23)
[2018-06-12] MEDS: Senna/Docusate Sodium 8.6/50 MG Tablet PO SCH (10:23)
[2018-06-12] MEDS: Linezolid 600 MG Tablet PO SCH (10:23)
[2018-06-12] MEDS: Pilocarpine HCl 5 MG Tablet PO SCH (10:23)
--- NOTE | 2018-06-12 12:04 | P.PNIM ---
Subjective Interval history: 78-year-old male with past medical history significant for bladder cancer status post urostomy and bilateral nephrostomy tubes, COPD, history of prostate cancer, chronic kidney disease and hypotension presents to the emergency department for the evaluation of diarrhea times 1 month. He endorses accompanying generalized weakness. His home health care provider came to see him earlier today and called EMS as the patient was covered in feces and unable to care for himself. He states he has been having diarrhea approximately 4-5 times per day. Denies any bloody or tarry stools. Has a history of C. difficile. Denies any chest pain or shortness of breath. No abdominal pain. No nausea/vomiting/diarrhea. No fever/chills. No lateralizing signs/symptoms. 10-3 Follow up for C. Diff colitis. Patient is doing well. He denies any chest pain, SOB, fever, chills. He has been tolerating PO Vancomycin well. 10-4 Follow up for C. Diff colitis. Patient is doing well. No acute concerns. No fever, chills. 10-5 Follow-up C. difficile, history of bladder cancer, status post urostomy and bilateral nephrostomy, acute on CKD, hypotension, atrial fibrillation. Patient seen and evaluated, laying in bed, alert and oriented x3, denies any pain except pain in his bottom. Patient stated he is trying to turn side to side instead of laying down. Patient stated this is not inguinal and has been going on. Patient denies any fever or chills, denies any headache or dizziness , denies any pain, chest pain, or shortness of breath. Patient denies any nausea or vomiting. Patient complains of diarrhea x1 today. 10-6 Follow-up C. difficile, history of bladder cancer, status post urostomy and bilateral nephrostomy, acute on CKD, hypotension, atrial fibrillation. Patient seen and examined, alert and oriented x 3, lying in bed, stated 1 loose stool today so far. Stated he is taking the vancomycin for it. Patient denies any nausea or vomiting. Patient complaints of right flank pain, stated he have stone on right left side, patient he have 3 tubes. Discussed urinary culture and a re-check. Patient denies any fever or chills, denies any nausea or vomiting.. 10-7 Follow-up C. difficile, history of bladder cancer, status post urostomy and bilateral nephrostomy, acute on CKD, hypotension, atrial fibrillation. Patient seen and examined laying in bed in a sitting position patient denies any fever or chills. Stated pain is a lot better. Stated pain was worse yesterday, stated had a history of kidney stones. Patient stated have some 2 diarrhea today with no associated nausea or vomiting. Patient complains of some general weakness, was living together and unable to care for himself at home. Patient denies any headache or dizziness, denies any chest pain, or shortness of breath. 10-8 STATES STOOLS ARE NOT WATER STATES HAS A STOOL NOW NEEDS PT AND OT NOT SAFE FOR HOME AT THIS TIME-NEEDS SNF DW RN AND PT AND CM 10-9 AWAIT SAFE PLACEMENT AT [facility] AWAIT [facility] AND [facility] APPROVAL PRIOR TO DC HAS BL NEPHROSTOMY TUBES IN PLACE 10-10 HAS BEEN AUTHORIZED TO GO TO SNF AT [facility] PER AR NEEDS ANTIBIOTICS PER ID HAS BL NEPHROSTOMY TUBES IN PLACE NO OTHER NEW COMPLAINTS 10-11 HAS BEEN ACCEPTED TO GO TO SNF BY [facility] NEEDS MEDS ADJUSTED AND PRIVATE ROOM AT SNF [facility] TO SNF [facility] DW RN AND PT CONTINUE CURRENT TREATMENT AM LABS 10- HAS BEEN ACCEPTED AT [facility] BY AR DC TO SNF TODAY DW RN AND PT AND CM ANTIBIOTICS PER ID cont vancomycin 500 mg qid x 2 weeks (thru 06/17) will switch to vancomycin taper after 2 weeks of full dose completed: vancomycin 125 mg bid for 1 week vancomycin 125 mg daily for 1 week vancomycin 125 mg q 48 hrs for 1 week vancomycin 125 mg q 72 hrs x 5 doses cont zerbaxa, renally adjusted x 2 weeks total (thru 06/19) cont zyvox for VRE UTI x weeks total (thru 06/20) [facility] Prescription Drug Monitoring Database has been queried and verified prior to prescribing the controlled substance. Acute pain exception. This patient has normal, predicted, physiological, and time limited response to an adverse mechanical stimulus associated with surgery, trauma, or acute illness as described in my notes. There is a lack of alternative treatment options other than to include the prescribed narcotic treatment for this condition. CONTINUE MARINOL 10-13 Follow up for cdiff colitis: Patient awakes to voice, oriented x2. Had a soft formed stool yesterday. No diarrhea observed. Eating fair. Has no complaints. ROS difficult to obtain, poor historian. Denies any chest pain, no shortness of breath. Not very talkative. 06-11 DC HELD DUE TO NO BED BEING AVAILABLE AND IV ANTIBIOTICS NOT AVAILABLE AT THE SNF [facility] WILL HAVE BED AND ANTIBIOTICS TOMORROW DW RN AND PT AND CM 06-12 TO GO TO SNF AFTER 1PM ANTIBIOTICS DONE TODAY CONTINUE ANTIBIOTICS ABOVE cont vancomycin 500 mg qid x 2 weeks (thru 06/17) will switch to vancomycin taper after 2 weeks of full dose completed: vancomycin 125 mg bid for 1 week vancomycin 125 mg daily for 1 week vancomycin 125 mg q 48 hrs for 1 week vancomycin 125 mg q 72 hrs x 5 doses cont zerbaxa, renally adjusted x 2 weeks total (thru 06/19) cont zyvox for VRE UTI x weeks total (thru 06/20) Physical Exam Vital signs: Vital Signs 06/11/18 16:00 06/11/18 20:00 06/12/18 00:00 Temperature 97.3 F L 97.9 F 97.1 F L Pulse Rate 92 H 89 89 Respiratory Rate 18 18 18 Blood Pressure 128/85 143/98 H 146/95 H Pulse Oximetry 98 99 97 06/12/18 00:05 06/12/18 04:00 06/12/18 08:00 Temperature 97.3 F L 97.2 F L Pulse Rate 101 H 99 H 98 H Respiratory Rate 18 16 Blood Pressure 153/97 H 177/92 H Pulse Oximetry 94 L 96 Intake & Output 06/11/18 06/12/18 06/12/18 18:59 06:59 18:59 Intake Total 480 / 480 1325 / 1325 105 / 105 Output Total 1450 / 1450 2049 Balance -970 / -970 -725 / -725 105 / 105 Intake: IV 1205 / 1205 105 / 105 NS Inj 1,000 ML @ 70 mls/hr IV. 1000 / 1000 CONT .[id number] TRAVIS Rx#:[id number] Zerbaxa Inj 750 MG In NS Inj 105 / 105 100 ML @ 100 mls/hr IV.SIG Q8H TRAVIS Rx#:[id number] Oral 480 / 480 120 / 120 Output: Urine 2049 Urine Amount (Stoma) 1450 / 1450 Continent Urostomy 1450 / 1450 Narrative: GENERAL: Thin, frail-appearing elderly male. SKIN: Warm and dry. Small sacral wound, and sacral redness, on specialty mattress. HEAD: Atraumatic. Normocephalic. EYES: Pupils equal and round. No scleral icterus. No injection or drainage. ENT: No nasal bleeding or discharge. Mucous membranes pink and moist. NECK: Trachea midline. No JVD. CARDIOVASCULAR: Regular rate and rhythm. RESPIRATORY: No accessory muscle use. Clear to auscultation. Breath sounds equal bilaterally. GASTROINTESTINAL: Abdomen soft, non-tender, nondistended. Hepatic and splenic margins not palpable. : Right lower abdominal urostomy tube, bilateral nephrostomy tube intact MUSCULOSKELETAL: Extremities without clubbing, cyanosis, or edema. No obvious deformities. Pedal pulses 2+. NEUROLOGICAL: Awake, oriented x2. Speech clear. No focal deficits. PSYCHIATRIC: Appropriate mood and affect; insight and judgment normal. - Urinary Catheter Management 3-way Urethral Cath placed during this visit: no Results - Labs CBC & Chem 7: 06/12/18 06:10 06/12/18 06:10 Laboratory Results - last 24 hr 06/12/18 06/12/18 06:10 06:10 WBC 5.0 RBC 2.81 L Hgb 9.2 L Hct 27.1 L MCV 96.2 MCH 32.6 MCHC 33.9 RDW 17.0 Plt Count 210 MPV 7.6 Neut % (Auto) 55.8 Lymph % (Auto) 28.8 Luna % (Auto) 10.1 H Eos % (Auto) 4.1 H Baso % (Auto) 1.2 Neut # (Auto) 2.8 Lymph # (Auto) 1.4 Luna # (Auto) 0.5 Eos # (Auto) 0.2 Baso # (Auto) 0.1 WBC Differential . Differential Comment Auto diff final Sodium 140 Potassium 5.0 Chloride 109 H Carbon Dioxide 23.6 Anion Gap 7 BUN 33 H Creatinine 1.93 H Estimated GFR 34 L Random Glucose 78 Calcium 8.4 L Phosphorus 3.1 Magnesium 1.7 Total Bilirubin 0.3 AST 30 ALT 39 Alkaline Phosphatase 86 Total Protein 6.3 L Albumin 2.4 L - Procedures NEPHROSTOMY TUBE REPLACEMENT Assessment and Plan - Assessment (1) Bacteremia Code(s): R78.81 - Bacteremia Status: Acute (2) C. difficile colitis Code(s): A04.72 - Enterocolitis due to Clostridium difficile, not specified as recurrent Status: Acute (3) Obstructive uropathy Code(s): N13.9 - Obstructive and reflux uropathy, unspecified Status: Chronic (4) Atrial fibrillation Code(s): I48.91 - Unspecified atrial fibrillation Status: Chronic (5) Acute on chronic kidney failure Code(s): N17.9 - Acute kidney failure, unspecified; N18.9 - Chronic kidney disease, unspecified Status: Chronic (6) Acute pyelonephritis Code(s): N10 - Acute pyelonephritis Status: Chronic (7) SANDI (acute kidney injury) Code(s): N17.9 - Acute kidney failure, unspecified Status: Chronic (8) Obstructed nephrostomy tube Code(s): T83.092A - Other mechanical complication of nephrostomy catheter, initial encounter Status: Acute (9) Nephrostomy complication Code(s): N99.528 - Other complication of incontinent external stoma of urinary tract Status: Acute - Plan 78-year-old male with past medical history significant for bladder cancer status post urostomy and bilateral nephrostomy tubes, COPD, history of prostate cancer, chronic kidney disease, history of parotid gland cancer, hyperlipidemia and hypotension presents to the emergency department for the evaluation of diarrhea times 1 month. C. Diff colitis - WBC is improved from 14.3 --> 7.5 - Diarrhea is improving, monitor signs and symptoms -having formed stools now. -Vanco per ID, taper dose as followed: cont vancomycin 500 mg qid x 2 weeks (thru 06/17) will switch to vancomycin taper after 2 weeks of full dose completed: vancomycin 125 mg bid for 1 week vancomycin 125 mg daily for 1 week vancomycin 125 mg q 48 hrs for 1 week vancomycin 125 mg q 72 hrs x 5 doses History of Bladder Cancer/ /post Urostomy/Bilateral Nephrostomy -Urine CX with Pseudomonas aeruginosa, multidrug-resistant, repeat urine culture -ID following -Continue Zerbaxa abd Zyvox. -Urostomy and nephrostomy care. -On assessment right nephrostomy tube had no urine drainage. C/O right flank pain. IR replaced right nephrostomy tubes on 06/05 -ID final recommendations: cont zerbaxa, renally adjusted x 2 weeks total ( thru 06/19) and zyvox for VRE UTI x weeks total (thru 06/20) -We will order PICC line per ID recommendation Atrial fibrillation - Currently rate control, sometimes 100s - Continue Apixaban 2.5mg BID. -monitor HR COPD No SOB, No Wheezes - DuoNeb PRN. Acute on chronic renal insufficiency Hyperkalemia, potassium 5.3 -Creatinine improving 2.08 today, baseline 2.5 -Continue IVF -Monitor renal function -We will give Kayexalate Hypotension, resolving, now with elevated BP -decrease Midodrine to 5 mg PO BID -monitor BP History of parotid gland cancer -Continue same regimen -Monitor signs and symptoms Generalized weakness -PT/OT consult eval and treat -increase activity DVT prophylaxiscontinue Eliquis Labs in am Code Status: FULL CODE Discussed Condition With: RN AND PT AND CM Discharge Planning: NEEDS SAFE DC- POSITIVE [facility] SNF AUTHORIZATION -CM WORKING ON SOLUTION NEEDS ID PARAMETERS HOPEFULLY TO SNF ON 06-12
--- NOTE | 2018-06-12 12:06 | P.DS ---
Date of admission: 05/31/18 13:29 Primary care physician: Physician [facility] Attending physician on discharge: David Narvaez Anticipated date of discharge: 06/09/18 Brief History from admission: 78-year-old male with past medical history significant for bladder cancer status post urostomy and bilateral nephrostomy tubes, COPD, history of prostate cancer, chronic kidney disease and hypotension presents to the emergency department for the evaluation of diarrhea times 1 month. He endorses accompanying generalized weakness. His home health care provider came to see him earlier today and called EMS as the patient was covered in feces and unable to care for himself. He states he has been having diarrhea approximately 4-5 times per day. Denies any bloody or tarry stools. Has a history of C. difficile. Denies any chest pain or shortness of breath. No abdominal pain. No nausea/vomiting/diarrhea. No fever/chills. No lateralizing signs/symptoms. Patient update on day of discharge: 78-year-old male with past medical history significant for bladder cancer status post urostomy and bilateral nephrostomy tubes, COPD, history of prostate cancer, chronic kidney disease and hypotension presents to the emergency department for the evaluation of diarrhea times 1 month. He endorses accompanying generalized weakness. His home health care provider came to see him earlier today and called EMS as the patient was covered in feces and unable to care for himself. He states he has been having diarrhea approximately 4-5 times per day. Denies any bloody or tarry stools. Has a history of C. difficile. Denies any chest pain or shortness of breath. No abdominal pain. No nausea/vomiting/diarrhea. No fever/chills. No lateralizing signs/symptoms. 10-3 Follow up for C. Diff colitis. Patient is doing well. He denies any chest pain, SOB, fever, chills. He has been tolerating PO Vancomycin well. 10-4 Follow up for C. Diff colitis. Patient is doing well. No acute concerns. No fever, chills. 10-5 Follow-up C. difficile, history of bladder cancer, status post urostomy and bilateral nephrostomy, acute on CKD, hypotension, atrial fibrillation. Patient seen and evaluated, laying in bed, alert and oriented x3, denies any pain except pain in his bottom. Patient stated he is trying to turn side to side instead of laying down. Patient stated this is not inguinal and has been going on. Patient denies any fever or chills, denies any headache or dizziness , denies any pain, chest pain, or shortness of breath. Patient denies any nausea or vomiting. Patient complains of diarrhea x1 today. 10-6 Follow-up C. difficile, history of bladder cancer, status post urostomy and bilateral nephrostomy, acute on CKD, hypotension, atrial fibrillation. Patient seen and examined, alert and oriented x 3, lying in bed, stated 1 loose stool today so far. Stated he is taking the vancomycin for it. Patient denies any nausea or vomiting. Patient complaints of right flank pain, stated he have stone on right left side, patient he have 3 tubes. Discussed urinary culture and a re-check. Patient denies any fever or chills, denies any nausea or vomiting.. 10-7 Follow-up C. difficile, history of bladder cancer, status post urostomy and bilateral nephrostomy, acute on CKD, hypotension, atrial fibrillation. Patient seen and examined laying in bed in a sitting position patient denies any fever or chills. Stated pain is a lot better. Stated pain was worse yesterday, stated had a history of kidney stones. Patient stated have some 2 diarrhea today with no associated nausea or vomiting. Patient complains of some general weakness, was living together and unable to care for himself at home. Patient denies any headache or dizziness, denies any chest pain, or shortness of breath. 10-8 STATES STOOLS ARE NOT WATER STATES HAS A STOOL NOW NEEDS PT AND OT NOT SAFE FOR HOME AT THIS TIME-NEEDS SNF DW RN AND PT AND CM 10-9 AWAIT SAFE PLACEMENT AT SNF AWAIT [facility] AND [place] PRIOR TO DC HAS BL NEPHROSTOMY TUBES IN PLACE 10-10 HAS BEEN AUTHORIZED TO GO TO SNF AT [facility] PER [place] NEED[place]TIB[place] PER ID HAS BL NEPHROSTOMY TUBES IN PLACE NO OTHER NEW COMPLAINTS 10-11 HAS BEEN ACCEPTED TO GO TO SNF [place]JUST[place] AND PRIVATE ROOM AT SNF [facility] TO [facility] RN AND PT CONTINUE CURRENT TREATMENT AM LABS 10-12 HAS BEEN ACCEPTED AT [facility] [place] TO SNF TODAY [place] RN AND PT AND CM ANTIBIOTICS PER ID cont vancomycin 500 mg qid x 2 weeks (thru 06/17) will switch to vancomycin taper after 2 weeks of full dose completed: vancomycin 125 mg bid for 1 week vancomycin 125 mg daily for 1 week vancomycin 125 mg q 48 hrs for 1 week vancomycin 125 mg q 72 hrs x 5 doses cont zerbaxa, renally adjusted x 2 weeks total (thru 06/19) cont zyvox for VRE UTI x weeks total (thru 06/20) [employer] Prescription Drug Monitoring Database has been queried and verified prior to prescribing the controlled substance. Acute pain exception. This patient has normal, predicted, physiological, and time limited response to an adverse mechanical stimulus associated with surgery, trauma, or acute illness as described in my notes. There is a lack of alternative treatment options other than to include the prescribed narcotic treatment for this condition. CONTINUE MARINOL 10 Follow up for cdiff colitis: Patient awakes to voice, oriented x2. Had a soft formed stool yesterday. No diarrhea observed. Eating fair. Has no complaints. ROS difficult to obtain, poor historian. Denies any chest pain, no shortness of breath. Not very talkative. 06-11 DC HELD DUE TO NO BED BEING AVAILABLE AND IV ANTIBIOTICS NOT AVAILABLE AT THE SNF [facility] WILL HAVE BED AND ANTIBIOTICS TOMORROW DW RN AND PT AND CM 10 TO GO TO SNF AFTER 1PM ANTIBIOTICS DONE TODAY CONTINUE ANTIBIOTICS ABOVE cont vancomycin 500 mg qid x 2 weeks (thru 06/17) will switch to vancomycin taper after 2 weeks of full dose completed: vancomycin 125 mg bid for 1 week vancomycin 125 mg daily for 1 week vancomycin 125 mg q 48 hrs for 1 week vancomycin 125 mg q 72 hrs x 5 doses cont zerbaxa, renally adjusted x 2 weeks total (thru 06/19) cont zyvox for VRE UTI x weeks total (thru 06/20) DS: Diagnosis - Discharge Diagnosis (1) Bacteremia Status: Acute (2) C. difficile colitis Status: Acute (3) Obstructive uropathy Status: Chronic (4) Atrial fibrillation Status: Chronic (5) Acute on chronic kidney failure Status: Chronic (6) Acute pyelonephritis Status: Chronic (7) SANDI (acute kidney injury) Status: Chronic (8) Obstructed nephrostomy tube Status: Acute (9) Nephrostomy complication Status: Acute DS: Medications - Discharge Medications Prescriptions: dronabinol 2.5 mg PO AC LUNCH #30 cap dronabinol [Marinol] 2.5 mg PO AC BREAKFAST #30 cap vancomycin 125 mg PO QID #80 cap DS: Summary Hospital Course: 78-year-old male with past medical history significant for bladder cancer status post urostomy and bilateral nephrostomy tubes, COPD, history of prostate cancer, chronic kidney disease and hypotension presents to the emergency department for the evaluation of diarrhea times 1 month. He endorses accompanying generalized weakness. His home health care provider came to see him earlier today and called EMS as the patient was covered in feces and unable to care for himself. He states he has been having diarrhea approximately 4-5 times per day. Denies any bloody or tarry stools. Has a history of C. difficile. Denies any chest pain or shortness of breath. No abdominal pain. No nausea/vomiting/diarrhea. No fever/chills. No lateralizing signs/symptoms. 10-3 Follow up for C. Diff colitis. Patient is doing well. He denies any chest pain, SOB, fever, chills. He has been tolerating PO Vancomycin well. 10-4 Follow up for C. Diff colitis. Patient is doing well. No acute concerns. No fever, chills. 10-5 Follow-up C. difficile, history of bladder cancer, status post urostomy and bilateral nephrostomy, acute on CKD, hypotension, atrial fibrillation. Patient seen and evaluated, laying in bed, alert and oriented x3, denies any pain except pain in his bottom. Patient stated he is trying to turn side to side instead of laying down. Patient stated this is not inguinal and has been going on. Patient denies any fever or chills, denies any headache or dizziness , denies any pain, chest pain, or shortness of breath. Patient denies any nausea or vomiting. Patient complains of diarrhea x1 today. 10-6 Follow-up C. difficile, history of bladder cancer, status post urostomy and bilateral nephrostomy, acute on CKD, hypotension, atrial fibrillation. Patient seen and examined, alert and oriented x 3, lying in bed, stated 1 loose stool today so far. Stated he is taking the vancomycin for it. Patient denies any nausea or vomiting. Patient complaints of right flank pain, stated he have stone on right left side, patient he have 3 tubes. Discussed urinary culture and a re-check. Patient denies any fever or chills, denies any nausea or vomiting.. 10-7 Follow-up C. difficile, history of bladder cancer, status post urostomy and bilateral nephrostomy, acute on CKD, hypotension, atrial fibrillation. Patient seen and examined laying in bed in a sitting position patient denies any fever or chills. Stated pain is a lot better. Stated pain was worse yesterday, stated had a history of kidney stones. Patient stated have some 2 diarrhea today with no associated nausea or vomiting. Patient complains of some general weakness, was living together and unable to care for himself at home. Patient denies any headache or dizziness, denies any chest pain, or shortness of breath. 10-8 STATES STOOLS ARE NOT WATER STATES HAS A STOOL NOW NEEDS PT AND OT NOT SAFE FOR HOME AT THIS TIME-NEEDS SNF DW RN AND PT AND CM 10-9 AWAIT SAFE PLACEMENT AT SNF AWAIT [facility] [place] TO DC HAS BL NEPHROSTOMY TUBES IN PLACE 10-10 HAS BEEN AUTHORIZED TO GO TO SNF AT [facility] [place]IB[place] PER ID HAS BL NEPHROSTOMY TUBES IN PLACE NO OTHER NEW COMPLAINTS 10-11 HAS BEEN ACCEPTED TO GO [place]F [place]JUST[place] AND PRIVATE ROOM AT [facility] TO [facility] RN AND PT CONTINUE CURRENT TREATMENT AM LABS 10-12 HAS BEEN ACCEPTED AT [facility] [place] TO SNF TODAY DW RN AND PT AND CM ANTIBIOTICS PER ID cont vancomycin 500 mg qid x 2 weeks (thru 06/17) will switch to vancomycin taper after 2 weeks of full dose completed: vancomycin 125 mg bid for 1 week vancomycin 125 mg daily for 1 week vancomycin 125 mg q 48 hrs for 1 week vancomycin 125 mg q 72 hrs x 5 doses cont zerbaxa, renally adjusted x 2 weeks total (thru 06/19) cont zyvox for VRE UTI x weeks total (thru 06/20) [id number] Prescription Drug Monitoring Database has been queried and verified prior to prescribing the controlled substance. Acute pain exception. This patient has normal, predicted, physiological, and time limited response to an adverse mechanical stimulus associated with surgery, trauma, or acute illness as described in my notes. There is a lack of alternative treatment options other than to include the prescribed narcotic treatment for this condition. CONTINUE MARINOL 10-13 Follow up for cdiff colitis: Patient awakes to voice, oriented x2. Had a soft formed stool yesterday. No diarrhea observed. Eating fair. Has no complaints. ROS difficult to obtain, poor historian. Denies any chest pain, no shortness of breath. Not very talkative. 06-11 DC HELD DUE TO NO BED BEING AVAILABLE AND IV ANTIBIOTICS NOT AVAILABLE AT THE SNF [facility] WILL HAVE BED AND ANTIBIOTICS TOMORROW DW RN AND PT AND CM 06-12 TO GO TO SNF AFTER 1PM ANTIBIOTICS DONE TODAY CONTINUE ANTIBIOTICS ABOVE cont vancomycin 500 mg qid x 2 weeks (thru 06/17) will switch to vancomycin taper after 2 weeks of full dose completed: vancomycin 125 mg bid for 1 week vancomycin 125 mg daily for 1 week vancomycin 125 mg q 48 hrs for 1 week vancomycin 125 mg q 72 hrs x 5 doses cont zerbaxa, renally adjusted x 2 weeks total (thru 06/19) cont zyvox for VRE UTI x weeks total (thru 06/20) - Time Spent with Patient Total time spent providing and/or coordinating discharge services: Greater than 30 minutes - Quality: VTE Deep Vein Thrombosis/Pulmonary Embolism Present on Admission: No Exam Vital signs: Vital Signs 06/11/18 16:00 06/11/18 20:00 06/12/18 00:00 Temperature 97.3 F L 97.9 F 97.1 F L Pulse Rate 92 H 89 89 Respiratory Rate 18 18 18 Blood Pressure 128/85 143/98 H 146/95 H Pulse Oximetry 98 99 97 06/12/18 00:05 06/12/18 04:00 06/12/18 08:00 Temperature 97.3 F L 97.2 F L Pulse Rate 101 H 99 H 98 H Respiratory Rate 18 16 Blood Pressure 153/97 H 177/92 H Pulse Oximetry 94 L 96 Intake & Output 06/11/18 06/12/18 06/12/18 18:59 06:59 18:59 Intake Total 480 / 480 1325 / 1325 105 / 105 Output Total 1450 / 1450 2049 / 2049 Balance -970 / -970 -725 / -725 105 / 105 Intake: IV 1205 / 1205 105 / 105 NS Inj 1,000 ML @ 70 mls/hr IV. 1000 / 1000 CONT .[id number] [facility] Rx#:[id number] Zerbaxa Inj 750 MG In NS Inj 105 / 105 100 ML @ 100 mls/hr IV.SIG Q8H [facility] Rx#:[id number] Oral 480 / 480 120 / 120 Output: Urine 2049 Urine Amount (Stoma) 1450 / 1450 Continent Urostomy 1450 / 1450 Narrative: GENERAL: Thin, frail-appearing elderly male. SKIN: Warm and dry. Small sacral wound, and sacral redness, on specialty mattress. HEAD: Atraumatic. Normocephalic. EYES: Pupils equal and round. No scleral icterus. No injection or drainage. ENT: No nasal bleeding or discharge. Mucous membranes pink and moist. NECK: Trachea midline. No JVD. CARDIOVASCULAR: Regular rate and rhythm. RESPIRATORY: No accessory muscle use. Clear to auscultation. Breath sounds equal bilaterally. GASTROINTESTINAL: Abdomen soft, non-tender, nondistended. Hepatic and splenic margins not palpable. : Right lower abdominal urostomy tube, bilateral nephrostomy tube intact MUSCULOSKELETAL: Extremities without clubbing, cyanosis, or edema. No obvious deformities. Pedal pulses 2+. NEUROLOGICAL: Awake, oriented x2. Speech clear. No focal deficits. PSYCHIATRIC: Appropriate mood and affect; insight and judgment normal. Results Procedures completed during hospitalization: NEPHROSTOMY TUBE REPLACEMENT Completed studies during hospitalization: Laboratory Results WBC 5.0 th/mm3 (4.0-11.0) 06/12/18 06:10 RBC 2.81 mil/mm3 (4.50-5.90) L 06/12/18 06:10 Hgb 9.2 gm/dL (13.0-17.0) L 06/12/18 06:10 Hct 27.1 % (39.0-51.0) L 06/12/18 06:10 MCV 96.2 fL (80.0-100.0) 06/12/18 06:10 MCH 32.6 pg (27.0-34.0) 06/12/18 06:10 MCHC 33.9 % (32.0-36.0) 06/12/18 06:10 RDW 17.0 % (11.6-17.2) 06/12/18 06:10 Plt Count 210 th/mm3 (150-450) 06/12/18 06:10 MPV 7.6 fL (7.0-11.0) 06/12/18 06:10 Neut % (Auto) 55.8 % (16.0-70.0) 06/12/18 06:10 Lymph % (Auto) 28.8 % (9.0-44.0) 06/12/18 06:10 Sequoyah % (Auto) 10.1 % (0.0-8.0) H 06/12/18 06:10 Eos % (Auto) 4.1 % (0.0-4.0) H 06/12/18 06:10 Baso % (Auto) 1.2 % (0.0-2.0) 06/12/18 06:10 Neut # (Auto) 2.8 th/mm3 (1.8-7.7) 06/12/18 06:10 Lymph # (Auto) 1.4 th/mm3 (1.0-4.8) 06/12/18 06:10 Sequoyah # (Auto) 0.5 th/mm3 (0.0-0.9) 06/12/18 06:10 Eos # (Auto) 0.2 th/mm3 (0.0-0.4) 06/12/18 06:10 Baso # (Auto) 0.1 th/mm3 (0.0-0.2) 06/12/18 06:10 WBC Differential . 06/12/18 06:10 Differential Comment Auto diff final 06/12/18 06:10 PT 11.1 sec (9.8-11.6) 05/30/18 20:00 INR 1.1 Ratio 05/30/18 20:00 APTT 25.0 sec (24.3-30.1) 05/30/18 20:00 Sodium 140 meq/L (136-145) 06/12/18 06:10 Potassium 5.0 meq/L (3.5-5.1) 06/12/18 06:10 Chloride 109 meq/L (98-107) H 06/12/18 06:10 Carbon Dioxide 23.6 meq/L (21.0-32.0) 06/12/18 06:10 Anion Gap 7 meq/L (5-15) 06/12/18 06:10 BUN 33 mg/dL (7-18) H 06/12/18 06:10 Creatinine 1.93 mg/dL (0.60-1.30) H 06/12/18 06:10 Estimated GFR 34 mL/min (>89) L 06/12/18 06:10 Random Glucose 78 mg/dL (74-106) 06/12/18 06:10 Hemoglobin A1c 5.0 % (4.3-6.0) 06/06/18 06:55 Lactic Acid 1.8 mmol/L (0.4-2.0) 05/30/18 20:11 Calcium 8.4 mg/dL (8.5-10.1) L 06/12/18 06:10 Prot Corrected Calcium 8.5 mg/dL (8.5-10.1) 06/03/18 07:39 Phosphorus 3.1 mg/dL (2.5-4.9) 06/12/18 06:10 Magnesium 1.7 mg/dL (1.5-2.5) 06/12/18 06:10 Total Bilirubin 0.3 mg/dL (0.2-1.0) 06/12/18 06:10 AST 30 U/L (15-37) 06/12/18 06:10 ALT 39 U/L (12-78) 06/12/18 06:10 Alkaline Phosphatase 86 U/L (45-117) 06/12/18 06:10 Total Creatine Kinase 45 U/L (39-308) 05/30/18 20:00 Troponin I Less than 0.02 ng/mL (0.02-0.05) L 05/30/18 20:00 Total Protein 6.3 g/dL (6.4-8.2) L 06/12/18 06:10 Albumin 2.4 g/dL (3.4-5.0) L 06/12/18 06:10 Lipase 138 U/L (73-393) 05/30/18 20:00 TSH 1.900 uIU/mL (0.358-3.740) 06/06/18 06:55 Free T4 0.74 ng/dL (0.76-1.46) L 06/06/18 06:55 Ur Collection Type [employer] 06/02/18 17:30 Urine Color Yellow (Yellw/Straw) 06/02/18 22:45 Urine Clarity Cloudy (Clear) H 06/02/18 22:45 Urine pH 6.0 (5.0-8.5) 06/02/18 22:45 Ur Specific Linn 1.009 (1.002-1.035) 06/02/18 22:45 Urine Protein 30 mg/dL (Neg-Trace) H 06/02/18 22:45 Urine Glucose (UA) Negative mg/dL (Negative) 06/02/18 22:45 Urine Ketones Negative mg/dL (Negative) 06/02/18 22:45 Urine Occult Blood Large (Negative) H 06/02/18 22:45 Urine Nitrate Positive (Negative) H 06/02/18 22:45 Urine Bilirubin Negative (Negative) 06/02/18 22:45 Urine Ictotest [employer] 06/02/18 17:30 Urine Urobilinogen Less than 2 mg/dL (Less than 2) 06/02/18 22:45 Ur Leukocyte Esterase Large (Negative) H 06/02/18 22:45 Urine RBC /hpf (0-3) 06/02/18 22:45 Urine WBC /hpf (0-5) 06/02/18 22:45 Urine WBC Clumps Moderate (None) H 06/02/18 22:45 Ur Squamous Epith Cells <1 /hpf (0-5) 06/02/18 22:45 Ur Transition Epith Cell [employer] 06/02/18 17:30 Ur Renal Epithelial Cell [employer] 06/02/18 17:30 Calcium Carbonate Cryst [employer] 06/02/18 17:30 Calcium Oxalate Crystal [employer] 06/02/18 17:30 Leucine Crystals [employer] 06/02/18 17:30 Cystine Crystals [employer] 06/02/18 17:30 Uric Acid Crystals [employer] 06/02/18 17:30 Triple Phos Crystals [employer] 06/02/18 17:30 Cholesterol Crystals [employer] 06/02/18 17:30 Tyrosine Crystals [employer] 06/02/18 17:30 Amorphous Sediment [employer] 06/02/18 17:30 Urine Bacteria [employer] 06/02/18 17:30 Hyaline Casts [employer] 06/02/18 17:30 Granular Casts [employer] 06/02/18 17:30 Fine Granular Casts Pl[employer] 06/02/18 17:30 Coarse Granular Casts [employer] 06/02/18 17:30 Waxy Casts [employer] 06/02/18 17:30 RBC Casts [employer] 06/02/18 17:30 WBC Casts [employer] 06/02/18 17:30 Urine Mucus [employer] 06/02/18 17:30 Urine Trichomonas [employer] 06/02/18 17:30 Urine Yeast [employer] 06/02/18 17:30 Ur Yeast w Hyphae [employer] 06/02/18 17:30 Urine Sperm [employer] 06/02/18 17:30 Ur Oval Fat Bodies [employer] 06/02/18 17:30 Micro UA Comment Culture indicated 06/02/18 22:45 Ur Microscopic Review Not Reportable 06/02/18 22:45 Urine Culture Comments Culture indicated 06/02/18 22:45 Urine Collection Time [employer] 06/02/18 17:30 Urine Comment [employer] 06/02/18 17:30 Stool C.difficile Ag Positive (Negative) H 05/30/18 23:15 Stool C.difficile Toxin Negative (Negative) 05/30/18 23:15 Stl C.difficile DNA Amp Positive (Negative) H 05/30/18 23:15 St C. diff Tox Epid 027 Negative (Negative) 05/30/18 23:15 Impressions Chest X-Ray 05/30/18 19:05 CONCLUSION: No evidence of acute cardiopulmonary disease. Abdomen/Bladder Ultrasound 06/04/18 00:00 CONCLUSION: 1. Limited study due to patient's body habitus and being uncooperative. 2. Right kidney not visualized. 3. Increased echogenicity of the left renal parenchyma. 4. No evidence of hydronephrosis.. Nephrostomy 06/05/18 00:00 CONCLUSION: 1. Uncomplicated nephrostomy tube placement as above. Labs on day of discharge: Labs from last 24 hours 06/12/18 06/12/18 06:10 06:10 WBC 5.0 RBC 2.81 L Hgb 9.2 L Hct 27.1 L MCV 96.2 MCH 32.6 MCHC 33.9 RDW 17.0 Plt Count 210 MPV 7.6 Neut % (Auto) 55.8 Lymph % (Auto) 28.8 Sequoyah % (Auto) 10.1 H Eos % (Auto) 4.1 H Baso % (Auto) 1.2 Neut # (Auto) 2.8 Lymph # (Auto) 1.4 Sequoyah # (Auto) 0.5 Eos # (Auto) 0.2 Baso # (Auto) 0.1 WBC Differential . Differential Comment Auto diff final Sodium 140 Potassium 5.0 Chloride 109 H Carbon Dioxide 23.6 Anion Gap 7 BUN 33 H Creatinine 1.93 H Estimated GFR 34 L Random Glucose 78 Calcium 8.4 L Phosphorus 3.1 Magnesium 1.7 Total Bilirubin 0.3 AST 30 ALT 39 Alkaline Phosphatase 86 Total Protein 6.3 L Albumin 2.4 L - Impressions ITS Impressions Chest X-Ray 05/30/18 19:05 CONCLUSION: No evidence of acute cardiopulmonary disease. Abdomen/Bladder Ultrasound 06/04/18 00:00 CONCLUSION: 1. Limited study due to patient's body habitus and being uncooperative. 2. Right kidney not visualized. 3. Increased echogenicity of the left renal parenchyma. 4. No evidence of hydronephrosis.. Nephrostomy 06/05/18 00:00 CONCLUSION: 1. Uncomplicated nephrostomy tube placement as above. Discharge Plan - Discharge Disposition Patient Disposition: Discharge to SNF - Discharge Condition Condition: Fair - Discharge Order Discharge Orders: Discharge Order (Routine); Ordered 06/09/18 Ordered By: David Narvaez - Discharge Details Anticipated Discharge Date: 06/09/18 Discharge Comment: DC TO SNF TODAY - Physicians Team Primary Care Provider: [facility]ician [facility] Attending Provider: David Narvaez Other Providers: Hansa Ac,Miguelito ; Della Rocha MD
[2018-06-12 12:57] VITALS: BP 140/98; RESP 17; TEMP 97.1; O2SAT 98
[2018-06-12 20:14] VITALS: PULSE 98
== END 2018-06-12 15:39 ==
LOC: NEPC 17:48 → NEDA 22:20 → INTOOBSV 22:20 → NEPHCDU 05-31 03:21 → N04 06-01 16:10
PROVIDERS: ADMIT Hospitalist; ATTEND Hospitalist

== ENCOUNTER 2018-06-17 08:47 | Inpatient (IN) ==
--- NOTE | 2018-06-17 09:04 | ED ---
HPI General Chief Complaint: Altered Mental Status Stated Complaint: AMS Time Seen by Provider: 06/17/18 09:00 Source: patient Mode of arrival: ambulatory Limitations: no limitations History of Present Illness HPI narrative: 78-year-old male patient with history of subarachnoid hemorrhage , chronic kidney disease, MRSA sepsis, C. difficile colitis, A. fib, currently in the senior living presents to the day because he has been getting more disoriented over the last few days, refusing to take his medications at the facilities. He apparently had seizure-like activity while on the ambulance, is now lethargic. He is not currently answering any questions. Related Data Home Medications Medication Instructions Recorded Confirmed apixaban [Eliquis] 2.5 mg PO BID 05/15/18 06/17/18 midodrine 5 mg PO TID 05/15/18 06/17/18 pilocarpine HCl 5 mg PO BID 05/15/18 06/17/18 Saccharomyces boulardii [Florastor] 250 mg PO BID 06/17/18 06/17/18 Previous Rx's Medication Instructions Recorded multivitamin with folic acid 1 tab PO DAILY tab 05/10/18 [Thera] vancomycin 125 mg PO QID #80 cap 06/01/18 acetaminophen 650 mg PO Q4H PRN tab 06/09/18 bisacodyl [Bisac-Evac] 10 mg GA DAILY PRN ea 06/09/18 ceftolozane-tazobactam [Zerbaxa] 750 mg IV Q8H ea 06/09/18 dronabinol 2.5 mg PO AC LUNCH #30 cap 06/09/18 dronabinol [Marinol] 2.5 mg PO AC BREAKFAST #30 cap 06/09/18 ipratropium-albuterol 1 amp NEB Q4HR NEB PRN ml 06/09/18 lactulose 30 ml PO DAILY PRN ml 06/09/18 linezolid [Zyvox] 600 mg PO Q12HR tab 06/09/18 magnesium hydroxide [Milk of 30 ml PO Q12H PRN ml 06/09/18 Magnesia] sennosides [Senna Lax] 17.2 mg PO Q12H PRN tab 06/09/18 sennosides-docusate sodium [Senna 1 tab PO BID tab 06/09/18 Plus] Allergies Allergy/AdvReac Type Severity Reaction Status Date / Time crab Allergy Intermediate Rash Verified 05/30/18 18:33 Review of Systems ROS Unobtainable ROS Unobtainable: unobtainable due to mental status [facility] Medical History Medical History COPD (chronic obstructive pulmonary disease) (Acute) H/O reduction of nasal fracture (Acute) History of Clostridium difficile infection (Acute) Kidney stones (Acute) Nasal bones, closed fracture (Acute) Prostate cancer (Acute) Renal failure (Acute) Subdural hematoma (Acute) UTI (urinary tract infection) (Acute) Hypotension (Chronic) Intertrochanteric fracture of left hip (Chronic) Parotid mass (Chronic) Surgical History Surgical History History of parotidectomy (Acute) History of urostomy (Acute) Nephrostomy status (Acute) Family History Family History Other Coronary artery disease Osteoarthritis Social History Social History Substance History: No History of Abuse Second Hand Smoke Exposure: No Smoking Status: Former smoker How Often Do You Have a Drink Containing Alcohol: Never Recent Travel in [facility] [[email or web address]] within the Last 8 Weeks: No Recent Out of Country Travel within the Last 8 Weeks: No Immunization History Tetanus Immunization: Unsure Exam Narrative Exam Narrative: GENERAL: Alert elderly male patient currently in moderate distress. Awake disoriented. SKIN: Focused skin assessment warm/dry. HEAD: Atraumatic. Normocephalic. EYES: Pupils equal and round. No scleral icterus. No injection or drainage. ENT: No nasal bleeding or discharge. Mucous membranes pink and moist. Airway is intact. NECK: Trachea midline. No JVD. CARDIOVASCULAR: Regular rate and rhythm. No murmur appreciated. RESPIRATORY: No accessory muscle use. Clear to auscultation. Breath sounds equal bilaterally. GASTROINTESTINAL: Abdomen soft, non-tender, nondistended. Hepatic and splenic margins not palpable. Suprapubic catheter in place. Draining yellow clear urine. MUSCULOSKELETAL: No obvious deformities. No clubbing. No cyanosis. No edema. NEUROLOGICAL: Awake, disoriented, not able to follow commands. PSYCHIATRIC: Unable to assess. Course Initial Documented Vital Signs Pulse Rate 119 H 06/17/18 08:57 Respiratory Rate 30 H 06/17/18 08:57 Blood Pressure 189/84 H 06/17/18 08:57 Pulse Oximetry 98 06/17/18 08:57 Last Documented Vital Signs Pulse Rate 119 H 06/17/18 08:57 Respiratory Rate 30 H 06/17/18 08:57 Blood Pressure 189/84 H 06/17/18 08:57 Pulse Oximetry 98 06/17/18 09:18 Procedures Intubation Time Out Performed: Yes Sedative: etomidate Mg Given: 20 Paralytic: succinylcholine Mg Given: 100 Laryngoscope: fiber optic video scope ET Tube Size: 8 ET Tube Uncuffed: No Tube Secured Depth (cm): 24 Tube Secured Location: lips Tube Placement Confirmation: visualized tube passing through cords, equal breath sounds bilaterally, no breath sounds over epigastrium and confirmation by capnometry Patient Tolerated Procedure: well Intubation Complications: none Medical Decision Making MDM Narrative Medical decision making narrative: Considering the history, I am suspicious of worsening renal failure second to dehydration as well as sepsis. IV fluids and IV antibiotics were initiated in the ER. Cultures have been drawn. Initial chest x-ray did not show any signs of acute pneumonia. Her UA is positive for a UTI. While in the ER, he has another episode of what appears to be a seizure and was again disoriented and at this point, not protecting his airway, and patient was intubated for airway protection. Case is then discussed with Dr. Reid of critical care for admission. Aggregate critical care time was 35 minutes. Time to perform other separately billable procedures was not included in the critical care time. My time did not include minutes spent treating any other patients simultaneously or on activities that did not directly contribute to the patient's treatment. The services I provided to this patient were to treat and/or prevent clinically significant deterioration that could result in: Worsening respiratory distress, aspiration, respiratory arrest, I provided critical care services requiring my management, as noted below: Chart data review, documentation time, medication orders and management, vital sign assessments/reviewing monitor data, ordering and reviewing lab tests, ordering and interpreting/reviewing x-rays and diagnostic studies, care of the patient and discussion of the patient with the admitting physicians. Medical Screen Exam Complete: Yes Emergency Medical Condition: Yes Differential Diagnosis Differential Diagnosis: Dehydration versus electrolyte abnormalities versus sepsis versus acute intracranial processes versus seizures/postictal Lab Data Lab results reviewed: Yes I reviewed the patient's lab results. Result diagrams: 06/17/18 09:00 06/17/18 09:00 Lab Results 06/17/18 06/17/18 06/17/18 Range/Units 09:00 09:00 09:00 WBC 7.8 (4.0-11.0) th/mm3 RBC 3.32 L (4.50-5.90) mil/mm3 Hgb 10.7 L (13.0-17.0) gm/dL Hct 33.3 L (39.0-51.0) % MCV 100.2 H (80.0-100.0) fL MCH 32.1 (27.0-34.0) pg MCHC 32.1 (32.0-36.0) % RDW 16.3 (11.6-17.2) % Plt Count 225 (150-450) th/mm3 MPV 7.8 (7.0-11.0) fL Prelim Diff (Auto) Director Non Profit Neut % (Auto) 66.4 (16.0-70.0) % Lymph % (Auto) 24.8 (9.0-44.0) % Charles % (Auto) 6.4 (0.0-8.0) % Eos % (Auto) 1.5 (0.0-4.0) % Baso % (Auto) 0.9 (0.0-2.0) % Neut # (Auto) 5.2 (1.8-7.7) th/mm3 Lymph # (Auto) 1.9 (1.0-4.8) th/mm3 Charles # (Auto) 0.5 (0.0-0.9) th/mm3 Eos # (Auto) 0.1 (0.0-0.4) th/mm3 Baso # (Auto) 0.1 (0.0-0.2) th/mm3 WBC Differential . Differential Comment Auto diff final Sodium 141 (136-145) meq/L Potassium 4.2 (3.5-5.1) meq/L Chloride 107 (98-107) meq/L Carbon Dioxide 16.8 L (21.0-32.0) meq/L Anion Gap 17 H (5-15) meq/L BUN 40 H (7-18) mg/dL Creatinine 2.75 H (0.60-1.30) mg/dL Estimated GFR 22 L (>89) mL/min Random Glucose 155 H (74-106) mg/dL Lactic Acid (0.4-2.0) mmol/L Calcium 9.0 (8.5-10.1) mg/dL Magnesium 2.2 (1.5-2.5) mg/dL Total Bilirubin 0.3 (0.2-1.0) mg/dL AST 29 (15-37) U/L ALT 41 (12-78) U/L Alkaline Phosphatase 125 H (45-117) U/L Troponin I 0.02 (0.02-0.05) ng/mL Total Protein 8.3 H D (6.4-8.2) g/dL Albumin 3.2 L (3.4-5.0) g/dL Urine Color (Yellw/Straw) Urine Clarity (Clear) Urine pH (5.0-8.5) Ur Specific [place] (1.002-1.035) Urine Protein (Neg-Trace) mg/dL Urine Glucose (UA) (Negative) mg/dL Urine Ketones (Negative) mg/dL Urine Occult Blood (Negative) Urine Nitrate (Negative) Urine Bilirubin (Negative) Urine Urobilinogen (Less than 2) mg/dL Ur Leukocyte Esterase (Negative) Urine RBC (0-3) /hpf Urine WBC (0-5) /hpf Calcium Oxalate Crystal (None) /hpf Urine Mucus (Occasional) /lpf Urine Yeast (None) /hpf Ur Yeast w Hyphae (None) /hpf Micro UA Comment Ur Microscopic Review Urine Culture Comments 06/17/18 06/17/18 Range/Units 09:00 09:04 WBC (4.0-11.0) th/mm3 RBC (4.50-5.90) mil/mm3 Hgb (13.0-17.0) gm/dL Hct (39.0-51.0) % MCV (80.0-100.0) fL MCH (27.0-34.0) pg MCHC (32.0-36.0) % RDW (11.6-17.2) % Plt Count (150-450) th/mm3 MPV (7.0-11.0) fL Prelim Diff (Auto) Neut % (Auto) (16.0-70.0) % Lymph % (Auto) (9.0-44.0) % Charles % (Auto) (0.0-8.0) % Eos % (Auto) (0.0-4.0) % Baso % (Auto) (0.0-2.0) % Neut # (Auto) (1.8-7.7) th/mm3 Lymph # (Auto) (1.0-4.8) th/mm3 Charles # (Auto) (0.0-0.9) th/mm3 Eos # (Auto) (0.0-0.4) th/mm3 Baso # (Auto) (0.0-0.2) th/mm3 WBC Differential Differential Comment Sodium (136-145) meq/L Potassium (3.5-5.1) meq/L Chloride (98-107) meq/L Carbon Dioxide (21.0-32.0) meq/L Anion Gap (5-15) meq/L BUN (7-18) mg/dL Creatinine (0.60-1.30) mg/dL Estimated GFR (>89) mL/min Random Glucose (74-106) mg/dL Lactic Acid 10.9 H* (0.4-2.0) mmol/L Calcium (8.5-10.1) mg/dL Magnesium (1.5-2.5) mg/dL Total Bilirubin (0.2-1.0) mg/dL AST (15-37) U/L ALT (12-78) U/L Alkaline Phosphatase (45-117) U/L Troponin I (0.02-0.05) ng/mL Total Protein (6.4-8.2) g/dL Albumin (3.4-5.0) g/dL Urine Color Yellow (Yellw/Straw) Urine Clarity Hazy H (Clear) Urine pH 7.0 (5.0-8.5) Ur Specific [place] 1.010 (1.002-1.035) Urine Protein 100 H (Neg-Trace) mg/dL Urine Glucose (UA) Negative (Negative) mg/dL Urine Ketones Negative (Negative) mg/dL Urine Occult Blood Large H (Negative) Urine Nitrate Negative (Negative) Urine Bilirubin Negative (Negative) Urine Urobilinogen Less than 2 (Less than 2) mg/dL Ur Leukocyte Esterase Moderate H (Negative) Urine RBC (0-3) /hpf Urine WBC 47 H (0-5) /hpf Calcium Oxalate Crystal Occasional H (None) /hpf Urine Mucus Few H (Occasional) /lpf Urine Yeast Few H (None) /hpf Ur Yeast w Hyphae Occasional H (None) /hpf Micro UA Comment Culture indicated Ur Microscopic Review Not Reportable Urine Culture Comments Culture indicated Imaging Data Attestation: I personally reviewed and interpreted this imaging study as follows : Radiologist's impression: Head CT 06/17/18 09:00 CONCLUSION: 1. No acute hemorrhage or mass effect. 2. Area of decreased attenuation involving the white matter of the right parietal lobe characteristic of an area of remote infarction. 3. Moderate atrophic change. . Chest X-Ray 06/17/18 09:01 CONCLUSION: No acute cardiopulmonary disease. There is no evidence of pneumonia on this single view study. ECG Data Attestation: I personally reviewed and interpreted this ECG as follows: Interpretation: EKG shows A. fib with rapid ventricular response at [address] elevations or depressions. Discharge Plan Discharge Disposition Patient Disposition: 30 Still Patient Discharge Condition Condition: Critical Discharge Details Anticipated Discharge Date: 06/17/18 Diagnosis: Atrial fibrillation, Acute on chronic kidney failure, Altered mental status, Seizures, Endotracheally intubated Physicians Team ED Provider: Bailey Jung Primary Care Provider: [facility]ician [facility] Attending Provider: Baldomero Reid Discharge Interventions Interventions: Vital Signs Last Done: 06/17/18 08:57 Status ED Status: Admitted Patient
[2018-06-17] MEDS: Sod Chloride 0.9% Inj 1,000 ML IV.SIG SCH ×3 (09:16→12:52)
[2018-06-17 09:22] LABS: Baso # (Auto) 0.1 th/mm3 (0.0-0.2); Baso % (Auto) 0.9 % (0.0-2.0); Eos # (Auto) 0.1 th/mm3 (0.0-0.4); Eos % (Auto) 1.5 % (0.0-4.0); Hematocrit 33.3 % (39.0-51.0); Hemoglobin 10.7 gm/dL (13.0-17.0); Lymph # (Auto) 1.9 th/mm3 (1.0-4.8); Lymph % (Auto) 24.8 % (9.0-44.0); Mean Corpuscular HGB Conc 32.1 % (32.0-36.0); Mean Corpuscular Hemoglobin 32.1 pg (27.0-34.0); Mean Corpuscular Volume 100.2 fL (80.0-100.0); Mean Platelet Volume 7.8 fL (7.0-11.0); Mono # (Auto) 0.5 th/mm3 (0.0-0.9); Mono % (Auto) 6.4 % (0.0-8.0); Neut # (Auto) 5.2 th/mm3 (1.8-7.7); Neut % (Auto) 66.4 % (16.0-70.0); Platelet Count 225 th/mm3 (150-450); Red Blood Count 3.32 mil/mm3 (4.50-5.90); Red Cell Distribution Width 16.3 % (11.6-17.2); White Blood Count 7.8 th/mm3 (4.0-11.0)
--- NOTE | 2018-06-17 09:25 | XR ---
EXAM DATE: 06/17/2018 9:01 AM EDT AGE/SEX: 78 years / Male INDICATIONS: Fever. CLINICAL DATA: This is the patient's initial encounter. Patient reports that signs and symptoms have been present for 1 day and indicates a pain score of Nonresponsive. MEDICAL/SURGICAL HISTORY: . Hypercholesterolemia. Atrial fibrillation. Bladder cancer. Parotid mass. . Chemotherapy. Radiation therapy. . Parotid surgery. Bladder surgery. COMPARISON: [facility] [place], CHEST 1V SINGLE AP, 05/30/2018. . FINDINGS: A single AP view of the chest demonstrates the lungs to be symmetrically aerated without evidence of mass, infiltrate or effusion. The cardiomediastinal contours are unremarkable. Osseous structures a re intact. The patient's head is turned to the left and flexed obscuring the left lung apex. Mild at herosclerotic changes are present in the aorta. CONCLUSION: No acute cardiopulmonary disease. There is no evidence of pneumonia on this single view study. Electronically signed by: Jaret Grimm MD 06/17/2018 9:24 AM EDT
[2018-06-17 09:34] LABS: Bilirubin,Urine Negative (Negative); Calcium Oxalate Crystals,Urine Occasional /hpf; Clarity,Urine Hazy (Clear); Color,Urine Yellow (Yellw/Straw); Glucose,Urine (UA) Negative (Negative); Leukocyte Esterase,Urine Moderate (Negative); Mucus,Urine Few /lpf (Occasional); Nitrite,Urine Negative (Negative)
--- NOTE | 2018-06-17 09:38 | CT ---
EXAM DATE: 06/17/2018 9:08 AM EDT AGE/SEX: 78 years / Male INDICATIONS: Found unresponsive, seizure. CLINICAL DATA: This is the patient's initial encounter. Patient reports that signs and symptoms have been present for 3 days and indicates a pain score of Nonresponsive. MEDICAL/SURGICAL HISTORY: Carcinoma, prostatic. Carcinoma, bladder. Prior subarachnoid hemorrhage. None. RADIATION DOSE: 56.35 CTDI (mGy) COMPARISON: [facility] [place], CT BRAIN W/O CONTRAST, 12/06/2017. . TECHNIQUE: CT of the head without contrast. Using automated exposure control and adjustment of the mA and/or kV according to patient size, radiation dose was kept as low as reasonably achievable to ob tain optimal diagnostic quality images. DICOM format image data is available electronically for revi ew and comparison. FINDINGS: Cerebrum: There is diffuse moderate atrophic change with sulcal and ventricular prominence. There is focal decreased attenuation noted in the right parietal white matter. No evidence of midline shift, m ass lesion, hemorrhage or acute infarction. No extraaxial fluid collections are seen. Posterior Fossa: The cerebellum and brainstem are intact. The 4th ventricle is midline. The cerebe llopontine angle is unremarkable. Extracranial: The visualized portion of the orbits is intact. Skull: The calvaria is intact. No evidence of skull fracture. CONCLUSION: 1. No acute hemorrhage or mass effect. 2. Area of decreased attenuation involving the white matter of the right parietal lobe characteristi c of an area of remote infarction. 3. Moderate atrophic change. . Electronically signed by: Jaret Grimm MD 06/17/2018 9:37 AM EDT
[2018-06-17] MEDS ORDERED: Vancomycin Inj 1 GM/200 ML PIGGYBACK IV.SIG ONE (09:39)
[2018-06-17] MEDS ORDERED: Piperacil/Tazo 3.375 GM Premix 50 ML IV.SIG ONE (09:39)
[2018-06-17 09:47] LABS: Alanine Aminotransferase 41 U/L (12-78); Albumin 3.2 g/dL (3.4-5.0); Anion Gap 17 meq/L (5-15); Aspartate Aminotransferase 29 U/L (15-37); Blood Urea Nitrogen 40 mg/dL (7-18); Carbon Dioxide 16.8 meq/L (21.0-32.0); Chloride 107 meq/L (98-107); Glomerular Filtration Rate 22 mL/min (>89); Glucose,Random 155 mg/dL (74-106); Magnesium 2.2 mg/dL (1.5-2.5); Potassium 4.2 meq/L (3.5-5.1); Sodium 141 meq/L (136-145)
[2018-06-17 09:49] LABS: Alkaline Phosphatase 125 U/L (45-117); Total Protein 8.3 g/dL (6.4-8.2)
[2018-06-17] MEDS ORDERED: Vancomycin Inj 1,000 MG in Sodium Chlor 0.9% Inj 250 ML IV.SIG ONE (10:00)
[2018-06-17] MEDS ORDERED: Etomidate Inj 20 MG/10 ML Ampul IV.PUSH ONE (10:14)
[2018-06-17] MEDS ORDERED: Succinylcholine Inj 100 MG/5 ML Syringe IV.PUSH ONE (10:15)
[2018-06-17] MEDS ORDERED: Succinylcholine Inj 200 MG/10 ML Vial ONE (10:20)
[2018-06-17] MEDS ORDERED: Propofol 1000 mg/100 ml Inj 1,000 MG/100 ML BOTTLE IV.CONT PRN (10:33)
[2018-06-17] MEDS ORDERED: fentaNYL 10 mcg/mL Premix Drip 2,500 MCG/250 ML BAG IV.SIG PRN (10:54)
[2018-06-17] MEDS ORDERED: Acetaminophen 325 MG Tablet PO PRN (10:54)
--- NOTE | 2018-06-17 10:54 | XR ---
EXAM DATE: 06/17/2018 10:33 AM EDT AGE/SEX: 78 years / Male INDICATIONS: S/P ET tube placement. CLINICAL DATA: This is the patient's initial encounter. Patient reports that signs and symptoms have been present for 1 day and indicates a pain score of Nonresponsive. MEDICAL/SURGICAL HISTORY: . Hypercholesterolemia. Atrial fibrillation. Bladder cancer. Parotid mass. . Chemotherapy. Radiation therapy. Parotid surgery. Bladder surgery. . [place] [facility] [place]. . FINDINGS: A single AP portable supine view of the chest was obtained. The patient is mildly rotated to the left . An endotracheal tube is been placed with the tip approximately 3 cm above the osiel. A nasogastric tube has been placed as well with the tip in the proximal stomach. The side-port is near the level o f the gastroesophageal junction. There are no confluent infiltrates or effusions. The heart and media stinal structures remain within normal limits. There is a right-sided PICC line in place. CONCLUSION: 1. Interval intubation and placement of nasogastric tube. The side port of the NG tube is near the g astroesophageal junction and could be advanced. 2. No acute cardiopulmonary disease. Electronically signed by: Jaret Grimm MD 06/17/2018 10:53 AM EDT
[2018-06-17] MEDS ORDERED: levETIRAcetam 1000mg/100mL Inj 100 ML IV.SIG ONE (11:00)
[2018-06-17] MEDS ORDERED: Dextrose 50% in Water 50 ML Vial IV.PUSH PRN (11:04)
--- NOTE | 2018-06-17 11:23 | P.HPCC ---
History of Present Illness Service: Critical care medicine Primary Care Physician: Physician 's [facility] Chief Complaint: Seizure/altered mental status History of Present Illness: This is a 78-year-old male. Date of admission 06/17/2018. Past medical history includes multidrug-resistant urinary tract infection Pseudomonas /VRE, history of subarachnoid hemorrhage with residual right parietal attenuation on CAT scan, atrial fibrillation on chronic apixaban, hypertension, hyperlipidemia, COPD, chronic disease stage IV, history of obstructive nephrostomy/urostomy stone status post percutaneous nephrostomy tubes still in place, bladder/prostate cancer and currently with C. difficile. He is also on pilocarpine for removal of parotid gland. Patient presents to [facility] from [facility] with chief complaint of altered mental status. Patient has been more confused recently according to records. In route in the ambulance patient was noted to have was described as "seizure-like" activity. This resolved without any intervention. Patient had another seizure and was more lethargic in the ED was intubated using 20 mg etomidate [address] of the brain revealed decreased attenuation white matter right parietal lobe region. Laboratories revealed a macrocytic anemia, creatinine of 2.75. Baseline 1 1.8. Lactate of 10.9. Currently seen in room E 55 post intubation. Heart rate currently in the 150s. Will start on sedation/analgesia check MRI of brain and loaded with levetiracetam. Infectious to be consulted to switch to linezolid due to seizure activity.. Inpatient Certification: I certify that the inpatient services were ordered in accordance with Medicare regulations governing the order. This includes certification that hospital inpatient services are reasonable and necessary and in the case of services not specified as inpatient-only under 42 CFR 419.22(n), that they are appropriately provided as inpatient services in accordance to with the 2-midnight benchmark under 43 CFR 412.3(e) Estimated Total Length of Stay (Days): 5 Plans for Post Hospital Care: Not yet determined Review of Systems unobtainable due to endotracheal tube PMFSH - History History Provided By: Patient - Medical History Medical History: Medical History (Last Updated 06/17/18 @ 11:13 by Baldomero Reid MD) Anticoagulant long-term use Chronic kidney disease, stage IV (severe) Essential hypertension History of MRSA infection Hyperlipidemia Nasal fracture Open left femoral fracture VRE carrier COPD (chronic obstructive pulmonary disease) H/O reduction of nasal fracture History of Clostridium difficile infection Kidney stones Nasal bones, closed fracture Prostate cancer Subdural hematoma UTI (urinary tract infection) Hypotension Intertrochanteric fracture of left hip Parotid mass - Surgical History Surgical History: Surgical History (Last Reviewed 06/17/18 @ 09:13 by Bailey Jung MD) History of parotidectomy History of urostomy Nephrostomy status - Family History Family History: Family History (Last Updated 06/17/18 @ 11:14 by Baldomero Reid MD) Father Coronary artery disease Other Osteoarthritis - Social History I have reviewed the patient's Social History: Yes - Tobacco History Second Hand Smoke Exposure: No Tobacco Use In Past 30 Days: No Smoking Status: Former smoker - Alcohol History How Often Do You Have a Drink Containing Alcohol: Never - Substance Use History Substance History: No History of Abuse - Travel History Recent Travel in the [place] Within the Last 8 Weeks: No Recent Travel Out of the Country Within the Last 8 Weeks: No - Immunization History Tetanus Immunization: Unsure Medications and Allergies Active Medications: Active Medications Acetaminophen (Tylenol) 650 mg PO Q6H PRN PRN Reason: FEVER Albuterol (Albuterol Neb (Marko)) 2.5 mg NEB Q2HR NEB PRN PRN Reason: SHORTNESS OF BREATH/WHEEZING Albuterol (Duoneb Neb (Prn)) 1 ampul NEB Q4HR NEB MARKO Apixaban (Eliquis) 2.5 mg PO BID MARKO Artificial Tears (Refresh Tears 0.5% Opth Drops) 1 drop EACH EYE BID MARKO Chlorhexidine Gluconate (Peridex 0.12% Oral Kit) 15 ml OROPHARYNG BID@0800, 2000 MARKO Chlorhexidine Gluconate (Chlorhexidine 2% Cloth) 3 pack TOPICAL DAILY@0400 MARKO Stop: 06/23/18 03:59 Chlorhexidine Gluconate (Chlorhexidine 2% Cloth) 3 pack TOPICAL DAILY@0400 PRN PRN Reason: Extra cloth needed Stop: 06/23/18 03:59 Dextrose (D50w Vial) 50 ml IV.PUSH UNSCH PRN PRN Reason: PER HYPOGLYCEMIA PROTOCOL Dronabinol (Marinol) 2.5 mg PO AC LUNCH MARKO Dronabinol (Marinol) 2.5 mg PO AC BREAKFAST MARKO Glucagon (Glucagon Inj) 1 mg OTHER PRN PRN PRN Reason: for Hypoglycemia Protocol Sodium Chloride (Ns Inj) 1,000 mls @ 0 mls/hr IV.SIG .Q0M MARKO Last Admin: 06/17/18 09:26 Dose: 1,000 mls/hr Vancomycin HCl 1,000 mg/ (Sodium Chloride) 250 mls @ 200 mls/hr IV.SIG ONCE ONE Stop: 06/17/18 11:14 Last Admin: 06/17/18 10:37 Dose: 200 mls/hr Propofol (Diprivan 1000 Mg/100 Ml Inj) 1,000 mg in 100 mls @ 1.973 mls/hr IV.CONT TITRATE PRN; Protocol PRN Reason: Per Protocol Fentanyl (Fentanyl 10 Mcg/Ml Premix Drip) 2,500 mcg in 250 mls @ 5 mls/hr IV.SIG TITRATE PRN; Protocol PRN Reason: Per Protocol Sodium Chloride (Ns Inj) 1,000 mls @ 84 mls/hr IV.CONT .[id number] MARKO Levetiracetam (Keppra 1000 Mg/100 Ml Premix) 100 mls @ 400 mls/hr IV.SIG ONCE ONE Stop: 06/17/18 11:14 Levetiracetam 500 mg/ Sodium (Chloride) 105 mls @ 400 mls/hr IV.SIG Q12H MARKO Insulin Aspart (Novolog Insulin Correctional Sugar Inj) 0 unit SQ Q6HR MARKO; Protocol Lansoprazole (Prevacid Solutab) 30 mg NG/OG DAILY [facility] Midodrine (Proamatine) 5 mg PO TID [facility] Miscellaneous Medication () 1 each OROPHARYNG 0000,0400,1200,1600 [facility] Multivitamins (Theragran) 1 tab PO DAILY [facility] Non-Formulary Medication (Ceftolozane-Tazobactam [Zerbaxa]) 750 mg IV.SIG Q8H [facility] Non-Formulary Medication (Saccharomyces Boulardii [Florastor]) 250 mg PO BID [facility] Non-Formulary Medication (Vancomycin [Vancomycin]) 125 mg PO QID MARKO; Taper Stop: 08/29/18 11:01 Pilocarpine HCl (Salagen) 5 mg PO BID [facility] Sodium Chloride (Ns Flush) 2 ml IV.FLUSH BID [facility] Sodium Chloride (Ns Flush) 2 ml IV.FLUSH PRN PRN PRN Reason: FLUSH AFTER USING IV ACCESS Allergies Allergy/AdvReac Type Severity Reaction Status Date / Time crab Allergy Intermediate Rash Verified 05/30/18 18:33 Home Medications Medication Instructions Recorded Confirmed Type apixaban [Eliquis] 2.5 mg PO BID 05/15/18 06/17/18 History midodrine 5 mg PO TID 05/15/18 06/17/18 History pilocarpine HCl 5 mg PO BID 05/15/18 06/17/18 History Saccharomyces boulardii [Florastor] 250 mg PO BID 06/17/18 06/17/18 History Results - Labs CBC & Chem 7: 06/17/18 09:00 06/17/18 09:00 Labs: Short CBC 06/17/18 Range/Units 09:00 WBC 7.8 (4.0-11.0) th/mm3 Hgb 10.7 L (13.0-17.0) gm/dL Hct 33.3 L (39.0-51.0) % Plt Count 225 (150-450) th/mm3 BMP 06/17/18 09:00 Sodium 141 Potassium 4.2 Chloride 107 Carbon Dioxide 16.8 L BUN 40 H Creatinine 2.75 H Calcium 9.0 Cardiac Enzymes 06/17/18 Range/Units 09:00 Troponin I 0.02 (0.02-0.05) ng/mL Liver Function 06/17/18 Range/Units 09:00 Total Bilirubin 0.3 (0.2-1.0) mg/dL AST 29 (15-37) U/L ALT 41 (12-78) U/L Alkaline Phosphatase 125 H (45-117) U/L Albumin 3.2 L (3.4-5.0) g/dL Urine 06/17/18 Range/Units 09:00 Urine Color Yellow (Yellw/Straw) Urine Clarity Hazy H (Clear) Urine pH 7.0 (5.0-8.5) Ur Specific [place] 1.010 (1.002-1.035) Urine Protein 100 H (Neg-Trace) mg/dL Urine Glucose (UA) Negative (Negative) mg/dL - Imaging Impressions Head CT 06/17/18 09:00 CONCLUSION: 1. No acute hemorrhage or mass effect. 2. Area of decreased attenuation involving the white matter of the right parietal lobe characteristic of an area of remote infarction. 3. Moderate atrophic change. . Chest X-Ray 06/17/18 09:01 CONCLUSION: No acute cardiopulmonary disease. There is no evidence of pneumonia on this single view study. Chest X-Ray 06/17/18 10:33 CONCLUSION: 1. Interval intubation and placement of nasogastric tube. The side port of the NG tube is near the gastroesophageal junction and could be advanced. 2. No acute cardiopulmonary disease. Exam Vital signs: Vital Signs 06/17/18 08:57 06/17/18 09:18 06/17/18 10:54 Pulse Rate 119 H Respiratory Rate 30 H 16 Blood Pressure 189/84 H Pulse Oximetry 98 98 100 Intake & Output 06/16/18 06/17/18 06/17/18 18:59 06:59 18:59 Intake Total 1050 / 1050 Balance 1050 / 1050 Weight 65.771 kg Intake: IV 1050 / 1050 Zosyn 3.375 GM Premix 50 ML @ 50 / 50 100 mls/hr IV.SIG ONCE ONE Rx#: [id number] NS Inj 1,000 ML @ Wide Open IV. 1000 / 1000 SIG .Q0M MARKO Rx#:[id number] - Constitutional no acute distress - Routine HEENT Exam Head: Present: normocephalic, atraumatic Eye: Present: EOMI, PERRL, normal accommodation ENT: Present: mucous membranes moist - Routine Neck Exam Present: supple, full ROM. Absent: JVD, carotid bruit - Routine Chest/Breast/Axilla Exam Chest wall: Absent: tenderness Breast: Absent: tenderness Axillae: Absent: lymphadenopathy - Routine Respiratory Exam Present: patient mechanically ventilated, rhonchi, distant breath sounds. Absent: accessory muscle use - Routine Cardiovascular Exam Present: S1, S2, tachycardia, irregularly irregular. Absent: murmur - Routine Abdominal Exam Present: soft, normoactive bowel sounds Comments: Bilateral nephrostomy tubes in place - Routine Extremities Exam Absent: cyanosis, clubbing, edema - Routine Skin Exam Present: intact, wounds. Absent: cyanosis Comments: 1*1 cm DTI - sacral - Routine Neurological Exam Present: CN II-XII intact. Absent: alert, oriented X3, sensory deficit, motor deficit Septic Shock Reassessment Septic shock perfusion: reassessment completed Caprini VTE Risk Assessment Caprini VTE Risk Assessment: Moderate/High Risk (score >= 2) Caprini Risk Assessment Model: Point Value = 1 Point Value = 2 Point Value = 3 Point Value = 5 Age 41-60 Minor surgery BMI > 25 kg/m2 Swollen legs Varicose veins or History of unexplained or recurrent spontaneous Oral contraceptives or hormone replacement Sepsis (< 1 month) Serious lung disease, including pneumonia (< 1 month) Abnormal pulmonary function Acute myocardial infarction Congestive heart failure (< 1 month) History of inflammatory bowel disease Medical patient at bed rest Age 61-74 Arthroscopic surgery Major open surgery (> 45 min) Laparoscopic surgery (> 45 min) Malignancy Confined to bed (> 72 hours) Immobilizing plaster cast Central venous access Age >= 75 History of VTE Family history of VTE Factor V Leiden Prothrombin [id number] Lupus anticoagulant Anticardiolipin antibodies Elevated serum homocysteine Heparin-induced thrombocytopenia Other congenital or acquired thrombophilia Stroke (< 1 month) Elective arthroplasty Hip, pelvis, or leg fracture Acute spinal cord injury (< 1 month) Prophylaxis Regimen: Total Risk Factor Score Risk Level Prophylaxis Regimen 0-1 Low Early ambulation 2 Moderate Order ONE of the following: *Sequential Compression Device (SCD) *Heparin 5000 units SQ BID 3-4 Higher Order ONE of the following medications: *Heparin 5000 units SQ TID *Enoxaparin/Lovenox 40 mg SQ daily (WT < 150 kg, CrCl > 30 mL/min) *Enoxaparin/Lovenox 30 mg SQ daily (WT < 150 kg, CrCl > 10-29 mL/min) *Enoxaparin/Lovenox 30 mg SQ BID (WT < 150 kg, CrCl > 30 mL/min) AND/OR *Sequential Compression Device (SCD) 5 or more Highest Order ONE of the following medications: *Heparin 5000 units SQ TID (Preferred with Epidurals) *Enoxaparin/Lovenox 40 mg SQ daily (WT < 150 kg, CrCl > 30 mL/min) *Enoxaparin/Lovenox 30 mg SQ daily (WT < 150 kg, CrCl > 10-29 mL/min) *Enoxaparin/Lovenox 30 mg SQ BID (WT < 150 kg, CrCl > 30 mL/min) AND *Sequential Compression Device (SCD) Assessment and Plan - Assessment and Plan Plan: Neuro/Psych: Seizure/new onset History of subarachnoid hemorrhage/subdural hematoma? Right parietal decreased attenuation noted Acute toxic metabolic encephalopathy Currently on propofol/fentanyl drips for sedation/analgesia while intubated Goal of RA SS -[address] brain revealed decreased mentation right parietal lobe region. MRI brain ordered. EEG ordered for seizure activity. Seizure precautions Levetiracetam 1 g IV x1 now followed by 500 mg IV twice daily CV: Atrial fibrillation with rapid ventricular response Essential hypertension Hyperlipidemia Lactic acidosis We will reassess heart rate after initiation sedation EKG revealed A. fib with RVR. No signs of ST elevation. 1 L normal saline ED. Currently 84 cc an hour. Not on any lipid-lowering agents at home. Serial lactates until cleared Resp: Acute respiratory failure secondary to altered mental status History of COPD [facility] / Ventilator bundle albuterol/ipratropium aerosols every 4 hours with albuterol aerosols every 2 hours as needed dyspnea Spontaneous breathing trials when clinically cleared. Follow-up on post intubation chest x-ray and ABG GI: C. difficile colitis NGT to WS N.p.o. except for medications Lansoprazole for GI prophylaxis. Holding bowel regimen in light of C. difficile colitis. Reevaluate in a.m. Pilocarpine 5 mg twice daily : History of bilateral nephrostomy secondary to obstructive process/urethral/ stones Patient has bilateral nephrostomy tubes in place. Maintained. Endo: Sliding scale insulin with Accu-Cheks to maintain euglycemia/every 6 hours aspart insulin medium protocol Check TSH Renal: Acute kidney injury in the setting of chronic kidney disease stage IV Monitor urine output from nephrostomy tubes bilaterally. Accurate I's and O's Recheck BMP in a.m. 06/18 Heme: Chronic apixaban use Macrocytic anemia Continue apixaban 2.5 mg twice daily Monitor CBC daily. Follow trends. 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 difficile colitis Previously on Ceftolozane/tazobactam 750 mg IV every 8 hours and linezolid 600 mg tablet twice daily. We will of ID to evaluate with underlying seizure Continue vancomycin 125 4 times daily. Scheduled for taper starting today to 125 twice daily for a week followed by once daily for a week to help see orders Blood cultures x2, UA and sputum ordered 10/20. MSK: Sacral DTI PT evaluate and treat Wound care eval and tx. FEN: Replace electrolytes as clinically indicated Currently on 0.9% NaCl at 84 cc now. Received 1 L wide open in ED. Access -Utilize peripheral IV. Central line if indicated Prophylaxis -GI -lansoprazole -DVT -SCD/apixaban will provide DVT prophylaxis Critical care time 35 minutes
[2018-06-17 11:25] LABS: ABG Base Excess -8.6 mmol/L (-2-2); ABG PCO2 36 mmHg (38-42); ABG PO2 172 mmHg (61-120)
[2018-06-17] MEDS: Oral Hygiene Kit OROPHARYNG SCH ×2 (12:00→16:18)
[2018-06-17] MEDS: Insulin NovoLOG Aspart Correctional Sugar Inj SQ SCH ×2 (12:54→17:29)
[2018-06-17] MEDS: Sod Chloride 0.9% Inj 1,000 ML IV.CONT SCH (12:54)
[2018-06-17] MEDS: Lactobacillus Acidophilus/L. Spores Tablet PO SCH ×2 (13:00→20:47)
[2018-06-17] MEDS ORDERED: TAZOBACTAM PO SCH (14:00)
[2018-06-17] MEDS ORDERED: CEFTOLOZANE PO SCH (14:00)
[2018-06-17] MEDS ORDERED: Sodium Chlor 0.9% Inj 500 ML IV.SIG SCH (15:00)
--- NOTE | 2018-06-17 15:22 | P.CONID ---
History of Present Illness Service: Infectious disease Consult date: 06/17/18 Requesting Physician: Baldomero Reid Reason for Consult: Evaluate patient with history of recurrent persistent UTI Primary [facility] Provider: [facility] Chief Complaint: Seizure/altered mental status History of Present Illness: Patient seen and examined. Records reviewed. Patient is a 78-year-old male, [facility] in the [facility], brought into the hospital for evaluation of confusion. Apparently has been more confused the last several days. While in the ambulance patient was noted to have a seizure- like activity which stopped. He had a similar episode in the ED and became very lethargic and ended up getting intubated. Patient currently is on the vent , and on sedation. 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 He was [facility] to the [facility], and was supposed to complete treatment with Zerbaxa and Linezolid. He was also on treatment for C. difficile colitis, and on oral vancomycin. Patient has had problem with bladder and prostate cancer, and has obstructive uropathy. He has had a urostomy put in, and currently has bilateral percutaneous nephrostomy tubes in place. It was last exchanged during his last admission around June 05. His antibiotic is supposed to be finished around June 20. He is also on oral vancomycin and plan was to give him tapering oral vancomycin for recurrent C. difficile colitis. Patient is afebrile. His hemodynamics are okay. He is on sedation and on the vent. His WBC is normal. His creatinine is worse than his last creatinine which was 1.9. Infectious disease consultation has been requested to evaluate the patient. Review of Systems unobtainable due to endotracheal tube PMFSH - History History Provided By: Patient - Medical History Medical History: Medical History (Last Reviewed 06/17/18 @ 15:17 by Patsy Ramos MD) Anticoagulant long-term use Chronic kidney disease, stage IV (severe) Essential hypertension History of MRSA infection Hyperlipidemia Nasal fracture Open left femoral fracture VRE carrier COPD (chronic obstructive pulmonary disease) H/O reduction of nasal fracture History of Clostridium difficile infection Kidney stones Nasal bones, closed fracture Prostate cancer Subdural hematoma UTI (urinary tract infection) Hypotension Intertrochanteric fracture of left hip Parotid mass - Surgical History Surgical History: Surgical History (Last Reviewed 06/17/18 @ 15:17 by Patsy Ramos MD) History of parotidectomy History of urostomy Nephrostomy status - Family History Family History: Family History (Last Reviewed 06/17/18 @ 15:17 by Patsy Ramos MD) Father Coronary artery disease Other Osteoarthritis - Tobacco History Second Hand Smoke Exposure: No Tobacco Use In Past 30 Days: No Smoking Status: Former smoker - Alcohol History How Often Do You Have a Drink Containing Alcohol: Never - Substance Use History Substance History: No History of Abuse - Travel History Recent Travel in the [place] Within the Last 8 Weeks: No Recent Travel Out of the Country Within the Last 8 Weeks: No - Immunization History Tetanus Immunization: Unsure Medications and Allergies Active Medications: Active Medications Acetaminophen (Tylenol) 650 mg PO Q6H PRN PRN Reason: FEVER Albuterol (Albuterol Neb (Prn)) 2.5 mg NEB Q2HR NEB PRN PRN Reason: SHORTNESS OF BREATH/WHEEZING Albuterol (Duoneb Neb (Marko)) 1 ampul NEB Q4HR NEB MARKO Apixaban (Eliquis) 2.5 mg PO BID MARKO Artificial Tears (Refresh Tears 0.5% Opth Drops) 1 drop EACH EYE BID MARKO Chlorhexidine Gluconate (Peridex 0.12% Oral Kit) 15 ml OROPHARYNG BID@0800, 2000 [facility] Chlorhexidine Gluconate (Chlorhexidine 2% Cloth) 3 pack TOPICAL DAILY@0400 MARKO Stop: 06/23/18 03:59 Chlorhexidine Gluconate (Chlorhexidine 2% Cloth) 3 pack TOPICAL DAILY@0400 PRN PRN Reason: Extra cloth needed Stop: 06/23/18 03:59 Dextrose (D50w Vial) 50 ml IV.PUSH UNSCH PRN PRN Reason: PER HYPOGLYCEMIA PROTOCOL Dronabinol (Marinol) 2.5 mg PO AC LUNCH MARKO Dronabinol (Marinol) 2.5 mg PO AC BREAKFAST MARKO Glucagon (Glucagon Inj) 1 mg OTHER PRN PRN PRN Reason: for Hypoglycemia Protocol Sodium Chloride (Ns Inj) 1,000 mls @ 0 mls/hr IV.SIG .Q0M [facility] Last Admin: 06/17/18 12:52 Dose: 84 mls/hr Propofol (Diprivan 1000 Mg/100 Ml Inj) 1,000 mg in 100 mls @ 1.973 mls/hr IV.CONT TITRATE PRN; Protocol PRN Reason: Per Protocol Last Titration: 06/17/18 11:15 Dose: 10 mcg/kg/min, 3.95 mls/hr Fentanyl (Fentanyl 10 Mcg/Ml Premix Drip) 2,500 mcg in 250 mls @ 5 mls/hr IV.SIG TITRATE PRN; Protocol PRN Reason: Per Protocol Sodium Chloride (Ns Inj) 1,000 mls @ 84 mls/hr IV.CONT .[id number] MARKO Last Admin: 06/17/18 12:54 Dose: 84 mls/hr Levetiracetam 500 mg/ Sodium (Chloride) 105 mls @ 400 mls/hr IV.SIG Q12H MARKO Sodium Chloride (Ns Inj) 500 mls @ 0 mls/hr IV.SIG BOLUS MARKO Ceftolozane/Tazobactam 750 mg/ (Sodium Chloride) 100 mls @ 100 mls/hr IV.SIG Q8H MARKO Insulin Aspart (Novolog Insulin Correctional Sugar Inj) 0 unit SQ Q6HR MARKO; Protocol Last Admin: 06/17/18 12:54 Dose: Not Given Labetalol HCl (Trandate Inj) 10 mg IV.PUSH Q1H PRN PRN Reason: Sbp>165, Dbp>90, Hr>65 Lactobacillus Acidophilus (Lactinex) 1 tab PO BID [facility] Lansoprazole (Prevacid Solutab) 30 mg NG/OG DAILY [facility] Midodrine (Proamatine) 5 mg PO TID [facility] Last Admin: 06/17/18 12:53 Dose: 5 mg Miscellaneous Medication () 1 each OROPHARYNG 0000,0400,1200,1600 [facility] Multivitamins (Theragran) 1 tab PO DAILY [facility] Nitroglycerin (Nitro-Bid 2% Oint) 2 inch TOPICAL Q6HR PRN PRN Reason: Sbp>165, Dbp>90 Pom: (Ceftolozane- Tazobactam [Zerbaxa] 750 Mg) 0 each PO Q8H [facility] Pilocarpine HCl (Salagen) 5 mg PO BID [facility] Sodium Chloride (Ns Flush) 2 ml IV.FLUSH BID [facility] Sodium Chloride (Ns Flush) 2 ml IV.FLUSH PRN PRN PRN Reason: FLUSH AFTER USING IV ACCESS Vancomycin HCl (Vancomycin Po) 125 mg PO Q6HR [facility]; Taper Stop: 08/29/18 11:01 Allergies Allergy/AdvReac Type Severity Reaction Status Date / Time crab Allergy Intermediate Rash Verified 05/30/18 18:33 Home Medications Medication Instructions Recorded Confirmed Type apixaban [Eliquis] 2.5 mg PO BID 05/15/18 06/17/18 History midodrine 5 mg PO TID 05/15/18 06/17/18 History pilocarpine HCl 5 mg PO BID 05/15/18 06/17/18 History Saccharomyces boulardii [Florastor] 250 mg PO BID 06/17/18 06/17/18 History Exam Vital signs: Vital Signs 06/17/18 08:57 06/17/18 09:18 06/17/18 10:54 Pulse Rate 119 H Respiratory Rate 30 H 16 Blood Pressure 189/84 H Pulse Oximetry 98 98 100 06/17/18 11:25 06/17/18 11:26 06/17/18 11:30 Pulse Rate 146 H 146 H Respiratory Rate 16 16 Blood Pressure 157/110 H 177/104 H Pulse Oximetry 100 100 100 Intake & Output 06/16/18 06/17/18 06/17/18 18:59 06:59 18:59 Intake Total 1850 / 1850 Balance 1850 / 1850 Weight 65.771 kg Intake: IV 1850 / 1850 Zosyn 3.375 GM Premix 50 ML @ 50 / 50 100 mls/hr IV.SIG ONCE ONE Rx#: [id number] NS Inj 1,000 ML @ Wide Open IV. 1800 / 1800 SIG .Q0M MARKO Rx#:[id number] Narrative: Physical Examination GENERAL: Patient is a well-nourished, well-developed male, sedated and on the vent, not in respiratory distress. SKIN: Cool and dry. No generalized rash, no ecchymoses and no evidence of embolic lesions. HEAD: Atraumatic. Normocephalic. No temporal wasting, or tenderness. EYES: [place] conjunctiva. No petechia or hemorrhage. Pupils equal, round and reactive to light. No scleral icterus. No injection or drainage. EARS, NOSE AND THROAT: Nose without bleeding or purulent nasal discharge. He is orally intubated, dry oral mucosa NECK: Trachea midline. Supple and not tender, no meningeal signs CARDIOVASCULAR: Regular rate and rhythm. No murmurs, rubs or gallops heard RESPIRATORY: Clear to auscultation. Breath sounds equal bilaterally. No rales , wheezing or rhonchi ABDOMEN: Soft, nondistended. Bowel sounds present and normoactive. Urostomy in place. Has luis PCN, not a lot of urine in the the bag EXTREMITIES: No clubbing, cyanosis, or edema. Well perfused and warm. NEUROLOGICAL: Sedated on the vent. PSYCHIATRIC: Unable to assess LINE: No evidence of infection Results - Labs CBC & Chem 7: 06/18/18 04:00 06/18/18 04:00 Labs: Laboratory Results - last 24 hr 06/17/18 06/17/18 06/17/18 09:00 09:00 09:00 WBC 7.8 RBC 3.32 L Hgb 10.7 L Hct 33.3 L MCV 100.2 H MCH 32.1 MCHC 32.1 RDW 16.3 Plt Count 225 MPV 7.8 Prelim Diff (Auto) [employer] Neut % (Auto) 66.4 Lymph % (Auto) 24.8 [place] % (Auto) 6.4 Eos % (Auto) 1.5 Baso % (Auto) 0.9 Neut # (Auto) 5.2 Lymph # (Auto) 1.9 [place] # (Auto) 0.5 Eos # (Auto) 0.1 Baso # (Auto) 0.1 WBC Differential . Differential Comment Auto diff final Puncture Site Patient Temperature O2 Saturation ABG pH ABG pCO2 ABG pO2 ABG HCO3 ABG O2 Content ABG Base Excess ABG Methemoglobin Benedicto Test Hemoglobin Carboxyhemoglobin O2 Delivery Device Vent Setting Inspired O2 Critical Value Sodium 141 Potassium 4.2 Chloride 107 Carbon Dioxide 16.8 L Anion Gap 17 H BUN 40 H Creatinine 2.75 H Estimated GFR 22 L POC Glucose Random Glucose 155 H Lactic Acid Calcium 9.0 Phosphorus Magnesium 2.2 Total Bilirubin 0.3 AST 29 ALT 41 Alkaline Phosphatase 125 H Troponin I 0.02 Total Protein 8.3 H D Albumin 3.2 L Urine Color Urine Clarity Urine pH Ur Specific [place] Urine Protein Urine Glucose (UA) Urine Ketones Urine Occult Blood Urine Nitrate Urine Bilirubin Urine Urobilinogen Ur Leukocyte Esterase Urine RBC Urine WBC Calcium Oxalate Crystal Urine Mucus Urine Yeast Ur Yeast w Hyphae Micro UA Comment Ur Microscopic Review Urine Culture Comments 06/17/18 06/17/18 06/17/18 09:00 09:00 09:04 WBC RBC Hgb Hct MCV MCH MCHC RDW Plt Count MPV Prelim Diff (Auto) Neut % (Auto) Lymph % (Auto) [place] % (Auto) Eos % (Auto) Baso % (Auto) Neut # (Auto) Lymph # (Auto) [place] # (Auto) Eos # (Auto) Baso # (Auto) WBC Differential Differential Comment Puncture Site Patient Temperature O2 Saturation ABG pH ABG pCO2 ABG pO2 ABG HCO3 ABG O2 Content ABG Base Excess ABG Methemoglobin Benedicto Test Hemoglobin Carboxyhemoglobin O2 Delivery Device Vent Setting Inspired O2 Critical Value Sodium Potassium Chloride Carbon Dioxide Anion Gap BUN Creatinine Estimated GFR POC Glucose Random Glucose Lactic Acid 10.9 H* Calcium Phosphorus 4.1 Magnesium Total Bilirubin AST ALT Alkaline Phosphatase Troponin I Total Protein Albumin Urine Color Yellow Urine Clarity Hazy H Urine pH 7.0 Ur Specific [place] 1.010 Urine Protein 100 H Urine Glucose (UA) Negative Urine Ketones Negative Urine Occult Blood Large H Urine Nitrate Negative Urine Bilirubin Negative Urine Urobilinogen Less than 2 Ur Leukocyte Esterase Moderate H Urine RBC Urine WBC 47 H Calcium Oxalate Crystal Occasional H Urine Mucus Few H Urine Yeast Few H Ur Yeast w Hyphae Occasional H Micro UA Comment Culture indicated Ur Microscopic Review Not Reportable Urine Culture Comments Culture indicated 06/17/18 06/17/18 11:04 12:49 WBC RBC Hgb Hct MCV MCH MCHC RDW Plt Count MPV Prelim Diff (Auto) Neut % (Auto) Lymph % (Auto) [place] % (Auto) Eos % (Auto) Baso % (Auto) Neut # (Auto) Lymph # (Auto) [place] # (Auto) Eos # (Auto) Baso # (Auto) WBC Differential Differential Comment Puncture Site Right radial Patient Temperature 98.6 O2 Saturation 98 ABG pH 7.29 L* ABG pCO2 36 L ABG pO2 172 H ABG HCO3 17 L ABG O2 Content 13.9 ABG Base Excess -8.6 L ABG Methemoglobin 0.5 Benedicto Test Y Hemoglobin 9.8 L Carboxyhemoglobin 0.9 O2 Delivery Device Ventilator Vent Setting [id number] Inspired O2 35 Critical Value Yes Sodium Potassium Chloride Carbon Dioxide Anion Gap BUN Creatinine Estimated GFR POC Glucose 122 H Random Glucose Lactic Acid Calcium Phosphorus Magnesium Total Bilirubin AST ALT Alkaline Phosphatase Troponin I Total Protein Albumin Urine Color Urine Clarity Urine pH Ur Specific [place] Urine Protein Urine Glucose (UA) Urine Ketones Urine Occult Blood Urine Nitrate Urine Bilirubin Urine Urobilinogen Ur Leukocyte Esterase Urine RBC Urine WBC Calcium Oxalate Crystal Urine Mucus Urine Yeast Ur Yeast w Hyphae Micro UA Comment Ur Microscopic Review Urine Culture Comments - Imaging Impressions Head CT 06/17/18 09:00 CONCLUSION: 1. No acute hemorrhage or mass effect. 2. Area of decreased attenuation involving the white matter of the right parietal lobe characteristic of an area of remote infarction. 3. Moderate atrophic change. . Chest X-Ray 06/17/18 09:01 CONCLUSION: No acute cardiopulmonary disease. There is no evidence of pneumonia on this single view study. Chest X-Ray 06/17/18 10:33 CONCLUSION: 1. Interval intubation and placement of nasogastric tube. The side port of the NG tube is near the gastroesophageal junction and could be advanced. 2. No acute cardiopulmonary disease. Assessment and Plan - Plan Impressio Seizure Hx MDRO UTI - has luis PCN and urostomy Hx recurrent C diff Respiratory failure CKD Recommendation Follow new C/S Continue Zerbaxa and Vancomycomycin Will adjust ABx once C/S back Follow creatinine - if not improving, will do renal US Monitor progress I will follow along with you Thank you for this consultation D/W POLLY
[2018-06-17] MEDS: TAZOBACTAM IV.SIG SCH (17:23)
[2018-06-17] MEDS: SODIUM CHLOR 0.9% IV.SIG SCH (17:23)
[2018-06-17] MEDS: CEFTOLOZANE IV.SIG SCH (17:23)
--- NOTE | 2018-06-17 19:44 | ECG ---
Date Performed: 06/17/2018 Time Performed: 08:56:25 PTAGE: 78 years EKG: ATRIAL FIBRILLATION WITH RAPID VENTRICULAR RESPONSE ABNORMAL ECG Since the PREVIOUS TRACING , no significant change noted DOCTOR: Barbara Ortiz Interpretating Date/Time 06/17/2018 19:43:05
[2018-06-17] MEDS: Chlorhexidine 0.12% Oral Kit 15 ML UDC OROPHARYNG SCH (20:47)
[2018-06-17] MEDS: Pilocarpine HCl 5 MG Tablet PO SCH (20:47)
[2018-06-17] MEDS: Carboxymethylcellulose 0.5% Opth Drops 15 ML Bottle EACH EYE SCH (20:48)
[2018-06-18] LABS: Bacteria,Urine Rare /hpf; Bilirubin,Urine Negative (Negative); Clarity,Urine Hazy (Clear); Color,Urine Yellow (Yellw/Straw); Glucose,Urine (UA) Negative (Negative); Leukocyte Esterase,Urine Large (Negative); Mucus,Urine Few /lpf (Occasional); Nitrite,Urine Negative (Negative); Specific Gravity,Urine 1.014 (1.002-1.035); Squamous Epithelial Cell,Urine <1 /hpf (0-5)
[2018-06-18 00:02] LABS: Bacteria,Urine Few /hpf; Bilirubin,Urine Negative (Negative); Clarity,Urine Cloudy (Clear); Color,Urine Yellow (Yellw/Straw); Glucose,Urine (UA) Negative (Negative); Leukocyte Esterase,Urine Large (Negative); Nitrite,Urine Negative (Negative); Specific Gravity,Urine 1.014 (1.002-1.035)
[2018-06-18] MEDS: Insulin NovoLOG Aspart Correctional Sugar Inj SQ SCH ×4 (01:00→18:24)
[2018-06-18] MEDS: Oral Hygiene Kit OROPHARYNG SCH ×4 (01:00→17:07)
[2018-06-18] MEDS: SODIUM CHLOR 0.9% IV.SIG SCH ×3 (01:03→17:07)
[2018-06-18] MEDS: CEFTOLOZANE IV.SIG SCH ×3 (01:03→17:07)
[2018-06-18] MEDS: TAZOBACTAM IV.SIG SCH ×3 (01:03→17:07)
[2018-06-18 01:07] LABS: Thyroid Stimulating Hormone 1.56 uIU/mL (0.358-3.740); Troponin I 0.1 ng/mL (0.02-0.05)
[2018-06-18] MEDS ORDERED: Chlorhexidine Gluconate 2% 1 Pack (2 Cloths) TOPICAL PRN (04:00)
[2018-06-18] MEDS: Sod Chloride 0.9% Inj 1,000 ML IV.CONT SCH ×3 (04:44→20:00)
[2018-06-18] MEDS: Chlorhexidine Gluconate 2% 1 Pack (2 Cloths) TOPICAL SCH (04:45)
[2018-06-18 05:36] LABS: Baso % (Auto) 0.7 % (0.0-2.0); Eos # (Auto) 0.1 th/mm3 (0.0-0.4); Hematocrit 24.1 % (39.0-51.0); Lymph # (Auto) 1.1 th/mm3 (1.0-4.8); Lymph % (Auto) 21.1 % (9.0-44.0); Mean Corpuscular HGB Conc 33.3 % (32.0-36.0); Mean Corpuscular Hemoglobin 32.8 pg (27.0-34.0); Mean Corpuscular Volume 98.4 fL (80.0-100.0); Mean Platelet Volume 8.1 fL (7.0-11.0); Mono # (Auto) 0.6 th/mm3 (0.0-0.9); Mono % (Auto) 11.8 % (0.0-8.0); Neut # (Auto) 3.5 th/mm3 (1.8-7.7); Neut % (Auto) 65.4 % (16.0-70.0); Platelet Count 158 th/mm3 (150-450); Red Blood Count 2.44 mil/mm3 (4.50-5.90); Red Cell Distribution Width 15.8 % (11.6-17.2); White Blood Count 5.3 th/mm3 (4.0-11.0)
[2018-06-18 05:44] LABS: Activated Partial Thrombo Time 33.3 sec (24.3-30.1); INR 1.1 Ratio; Prothrombin Time 10.7 sec (9.8-11.6)
[2018-06-18 06:12] LABS: Alanine Aminotransferase 30 U/L (12-78); Albumin 2.7 g/dL (3.4-5.0); Alkaline Phosphatase 96 U/L (45-117); Anion Gap 9 meq/L (5-15); Aspartate Aminotransferase 25 U/L (15-37); Blood Urea Nitrogen 39 mg/dL (7-18); Calcium 8.1 mg/dL (8.5-10.1); Carbon Dioxide 21.8 meq/L (21.0-32.0); Chloride 114 meq/L (98-107); Glomerular Filtration Rate 28 mL/min (>89); Glucose,Random 82 mg/dL (74-106); Phosphorus 3.3 mg/dL (2.5-4.9); Sodium 145 meq/L (136-145); Total Protein 6.4 g/dL (6.4-8.2)
--- NOTE | 2018-06-18 08:01 | MG ---
cc: Lowell Farmer MD EEG RECORD # [id number] 2-3 Hz delta activity with intermixed theta activity occurring 10-40 microvolts with off and on myogenic electrical artifact in the frontal channels. Limited driving with photic stimulation. Mild EEG variability reactivity. Chewing artifact towards the end of the recording. Single EKG showing some irregularity. INTERPRETATION: Moderate encephalopathy, artifact. Some irregularity noted on EKG. Clinical correlation. MD MARIANGEL Mcconnell/fariha , 06:47 AM , 06:51 AM
[2018-06-18] MEDS: Pilocarpine HCl 5 MG Tablet PO SCH ×2 (08:11→21:47)
[2018-06-18] MEDS: Lactobacillus Acidophilus/L. Spores Tablet PO SCH ×2 (08:11→21:46)
[2018-06-18] MEDS: Carboxymethylcellulose 0.5% Opth Drops 15 ML Bottle EACH EYE SCH ×2 (08:11→21:47)
[2018-06-18] MEDS: Chlorhexidine 0.12% Oral Kit 15 ML UDC OROPHARYNG SCH ×2 (08:11→21:46)
--- NOTE | 2018-06-18 10:10 | P.PNID ---
Subjective Remarks: Patient is a 78-year-old male, resides in the [facility], brought into the hospital for evaluation of confusion. Apparently has been more confused the last several days. While in the ambulance patient was noted to have a seizure- like activity which stopped. He had a similar episode in the ED and became very lethargic and ended up getting intubated. Patient currently is on the vent , and on sedation. 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 He was discharged to the [facility], and was supposed to complete treatment with Zerbaxa and Linezolid. He was also on treatment for C. difficile colitis, and on oral vancomycin. Patient has had problem with bladder and prostate cancer, and has obstructive uropathy. He has had a urostomy put in, and currently has bilateral percutaneous nephrostomy tubes in place. It was last exchanged during his last admission around June 05. His antibiotic is supposed to be finished around June 20. He is also on oral vancomycin and plan was to give him tapering oral vancomycin for recurrent C. difficile colitis. Infectious disease consultation has been requested to evaluate the patient. Notes reviewed Temps ok He is on CPAP this morning Awake and responding C/O SOB BP ok Antibiotics: Zerbaxa Vanco po Lines: PICC Past Medical History: Reviewed Allergies/Adverse Reactions: Allergies crab Allergy (Intermediate, Verified 05/30/18 18:33) Rash Blue Shell crab causes severe rash all over face and neck. Needs PCN to help clear it up. Patient CAN eat Shrimp and clams, scallops, oysters without problems. Objective Vital Signs 06/17/18 10:54 06/17/18 11:25 06/17/18 11:26 Temperature Pulse Rate 146 H Respiratory Rate 16 16 Blood Pressure 157/110 H Pulse Oximetry 100 100 100 06/17/18 11:30 06/17/18 12:00 06/17/18 13:00 Temperature 98 F Pulse Rate 146 H 139 H 106 H Respiratory Rate 16 16 17 Blood Pressure 177/104 H 172/109 H 145/63 H Pulse Oximetry 100 100 100 06/17/18 14:00 06/17/18 15:00 06/17/18 15:40 Temperature Pulse Rate 87 83 Respiratory Rate 16 16 16 Blood Pressure 129/70 117/68 Pulse Oximetry 100 100 06/17/18 15:43 06/17/18 16:00 06/17/18 17:00 Temperature 98.4 F Pulse Rate 117 H 123 H 102 H Respiratory Rate 16 16 16 Blood Pressure 133/77 136/91 H Pulse Oximetry 100 100 06/17/18 18:00 06/17/18 19:20 06/17/18 19:27 Temperature Pulse Rate 107 H 104 H Respiratory Rate 16 16 16 Blood Pressure 144/84 H Pulse Oximetry 100 100 06/17/18 19:34 06/17/18 20:00 06/17/18 21:00 Temperature 99.8 F H Pulse Rate 100 H 92 H 111 H Respiratory Rate 16 17 17 Blood Pressure 142/83 H 157/90 H Pulse Oximetry 100 100 100 06/17/18 22:00 06/17/18 22:16 06/17/18 23:00 Temperature Pulse Rate 98 H 110 H Respiratory Rate 16 16 16 Blood Pressure 125/81 Pulse Oximetry 100 100 100 06/17/18 23:01 06/18/18 00:00 06/18/18 00:47 Temperature 99.1 F Pulse Rate 114 H 113 H 136 H Respiratory Rate 16 17 16 Blood Pressure 145/67 H 145/100 H 93/66 L Pulse Oximetry 100 100 100 06/18/18 01:00 06/18/18 01:03 06/18/18 01:10 Temperature Pulse Rate 136 H 137 H 132 H Respiratory Rate 16 16 16 Blood Pressure 82/50 L 70/49 L 70/53 L Pulse Oximetry 100 100 100 06/18/18 01:15 06/18/18 01:30 06/18/18 02:00 Temperature Pulse Rate 130 H 108 H 110 H Respiratory Rate 16 21 17 Blood Pressure 79/54 L 145/97 H 117/80 Pulse Oximetry 100 100 100 06/18/18 02:30 06/18/18 03:00 06/18/18 03:26 Temperature Pulse Rate 120 H 121 H 117 H Respiratory Rate 20 25 H 18 Blood Pressure 142/97 H 141/66 H Pulse Oximetry 93 L 92 L 06/18/18 03:30 06/18/18 04:00 06/18/18 04:29 Temperature 98.6 F Pulse Rate 122 H 112 H Respiratory Rate 20 20 18 Blood Pressure 147/81 H 137/65 Pulse Oximetry 100 100 100 06/18/18 04:30 06/18/18 05:00 06/18/18 05:30 Temperature Pulse Rate 117 H 106 H 102 H Respiratory Rate 16 16 17 Blood Pressure 122/66 135/86 134/92 H Pulse Oximetry 100 100 100 06/18/18 06:00 06/18/18 06:30 06/18/18 07:00 Temperature Pulse Rate 126 H 117 H 112 H Respiratory Rate 21 15 17 Blood Pressure 143/98 H 136/92 H 118/60 Pulse Oximetry 97 100 100 06/18/18 07:32 06/18/18 08:00 06/18/18 08:02 Temperature 97.9 F Pulse Rate 118 H 104 H Respiratory Rate 16 16 16 Blood Pressure 167/108 H 138/69 Pulse Oximetry 98 100 100 06/18/18 08:04 06/18/18 08:30 06/18/18 09:00 Temperature Pulse Rate 111 H 108 H 106 H Respiratory Rate 16 24 17 Blood Pressure 149/101 H 161/89 H Pulse Oximetry 100 100 Intake & Output 06/17/18 06/18/18 06/18/18 18:59 06:59 18:59 Intake Total 1950 / 1949 1265 / 1265 Output Total 370 / 370 385 / 385 Balance 1580 / 1580 880 / 880 Weight 65.771 kg Intake: IV 1950 / 1949 1205 / 1205 NS Inj 1,000 ML @ 84 mls/hr IV. 1000 / 1000 CONT .[id number] [facility] Rx#:[id number] Zerbaxa Inj 375 MG In NS Inj 100 / 100 100 / 100 100 ML @ 100 mls/hr IV.SIG Q8H [facility] Rx#:[id number] Zosyn 3.375 GM Premix 50 ML @ 50 / 50 100 mls/hr IV.SIG ONCE ONE Rx#: [id number] NS Inj 1,000 ML @ Wide Open IV. 1800 / 1800 SIG .Q0M [facility] Rx#:[id number] Keppra Inj 500 MG In NS Inj 100 105 / 105 ML @ 400 mls/hr IV.SIG Q12H [facility] Rx#:[id number] Tube Irrigant 60 / 60 Output: Urine Amount (Stoma) 370 / 370 385 / 385 Continent Urostomy 50 / 50 Nephrostomy Tube Left 185 / 185 180 / 180 Nephrostomy Tube Right 135 / 135 205 / 205 Other: Date of Last Bowel Movement 06/18/18 06/18/18 # Bowel Movements 1 # Incontinent Bowel Movements 1 06/17/18 23:15 Sputum - Endotracheal Gram Stain - Final 06/17/18 23:15 Sputum - Endotracheal Sputum Culture - Pending 06/17/18 20:20 Catheterized Urine Urine Culture - Pending 06/17/18 20:22 Catheterized Urine Urine Culture - Pending 06/17/18 09:00 Suprapubic Urine Urine Culture - Pending 06/17/18 09:03 Blood - Peripheral Aerobic Blood Culture - Pending 06/17/18 09:03 Blood - Peripheral Anaerobic Blood Culture - Pending 06/17/18 09:00 Blood - Peripheral Aerobic Blood Culture - Pending 06/17/18 09:00 Blood - Peripheral Anaerobic Blood Culture - Pending Lab - Hematology Results 06/17/18 06/18/18 09:00 04:00 WBC 7.8 5.3 RBC 3.32 L 2.44 L Hgb 10.7 L 8.0 L D Hct 33.3 L 24.1 L MCV 100.2 H 98.4 MCH 32.1 32.8 MCHC 32.1 33.3 RDW 16.3 15.8 Plt Count 225 158 MPV 7.8 8.1 Prelim Diff (Auto) Rehab Director Neut % (Auto) 66.4 65.4 Lymph % (Auto) 24.8 21.1 [place] % (Auto) 6.4 11.8 H Eos % (Auto) 1.5 1.0 Baso % (Auto) 0.9 0.7 Neut # (Auto) 5.2 3.5 Lymph # (Auto) 1.9 1.1 [place] # (Auto) 0.5 0.6 Eos # (Auto) 0.1 0.1 Baso # (Auto) 0.1 0.0 WBC Differential . . Differential Comment Auto diff final Auto diff final Lab - Chemistry Results 06/17/18 06/17/18 06/17/18 09:00 09:00 09:00 Sodium 141 Potassium 4.2 Chloride 107 Carbon Dioxide 16.8 L Anion Gap 17 H BUN 40 H Creatinine 2.75 H Estimated GFR 22 L POC Glucose Random Glucose 155 H Lactic Acid Calcium 9.0 Phosphorus 4.1 Magnesium 2.2 Total Bilirubin 0.3 AST 29 ALT 41 Alkaline Phosphatase 125 H Troponin I 0.02 Total Protein 8.3 H D Albumin 3.2 L TSH 06/17/18 06/17/18 06/17/18 09:04 12:49 16:07 Sodium Potassium Chloride Carbon Dioxide Anion Gap BUN Creatinine Estimated GFR POC Glucose 122 H Random Glucose Lactic Acid 10.9 H* 1.7 Calcium Phosphorus Magnesium Total Bilirubin AST ALT Alkaline Phosphatase Troponin I Total Protein Albumin TSH 06/17/18 06/17/18 06/18/18 16:23 20:15 00:05 Sodium Potassium Chloride Carbon Dioxide Anion Gap BUN Creatinine Estimated GFR POC Glucose 124 H Random Glucose Lactic Acid 1.2 Calcium Phosphorus Magnesium Total Bilirubin AST ALT Alkaline Phosphatase Troponin I 0.10 H Total Protein Albumin TSH 1.560 06/18/18 06/18/18 06/18/18 00:06 04:00 04:00 Sodium 145 Potassium 4.0 Chloride 114 H Carbon Dioxide 21.8 Anion Gap 9 BUN 39 H Creatinine 2.24 H Estimated GFR 28 L POC Glucose 103 Random Glucose 82 Lactic Acid 0.9 Calcium 8.1 L D Phosphorus 3.3 Magnesium 2.0 Total Bilirubin 0.5 AST 25 ALT 30 Alkaline Phosphatase 96 Troponin I Total Protein 6.4 D Albumin 2.7 L TSH 06/18/18 04:01 Sodium Potassium Chloride Carbon Dioxide Anion Gap BUN Creatinine Estimated GFR POC Glucose 88 Random Glucose Lactic Acid Calcium Phosphorus Magnesium Total Bilirubin AST ALT Alkaline Phosphatase Troponin I Total Protein Albumin TSH Imaging: ITS Impressions Head CT 06/17/18 09:00 CONCLUSION: 1. No acute hemorrhage or mass effect. 2. Area of decreased attenuation involving the white matter of the right parietal lobe characteristic of an area of remote infarction. 3. Moderate atrophic change. . Chest X-Ray 06/17/18 10:33 CONCLUSION: 1. Interval intubation and placement of nasogastric tube. The side port of the NG tube is near the gastroesophageal junction and could be advanced. 2. No acute cardiopulmonary disease. Physical Exam: GENERAL: Awake, responding, on CPAP, not in respiratory distress. SKIN: Cool and dry. No generalized rash, no ecchymoses and no evidence of embolic lesions. HEAD: Atraumatic. Normocephalic. No temporal wasting, or tenderness. EYES: [place] conjunctiva. No petechia or hemorrhage. Pupils equal, round and reactive to light. Extraocular movements full and intact. No scleral icterus. No injection or drainage. EARS, NOSE AND THROAT: Nose without bleeding or purulent nasal discharge. No sinus tenderness. He is orally intubated, dry oral mucosa NECK: Trachea midline. Supple and not tender, no meningeal signs CARDIOVASCULAR: Regular rate and rhythm. No murmurs, rubs or gallops heard RESPIRATORY: Clear to auscultation. Breath sounds equal bilaterally. No rales , wheezing or rhonchi ABDOMEN: Soft, non-tender, nondistended. Bowel sounds present and normoactive. No guarding. No rebound. No organomegaly. Urostomy in place. Has luis PCN, blood tinged urine on R; clear on L EXTREMITIES: No clubbing, cyanosis, or edema. No calf tenderness. Well perfused and warm. NEUROLOGICAL: Awake and alert. Cranial nerves grossly intact. Motor grossly within normal limits. PSYCHIATRIC: Normal affect, calm and cooperative. LINE: No evidence of infection Assessment and Plan - Plan Impressio Seizure Hx MDRO UTI - has luis PCN and urostomy Hx recurrent C diff Respiratory failure CKD Recommendation Follow new C/S Continue Zerbaxa and Vancomycin Will adjust ABx once C/S back Follow creatinine Monitor progress Dr Nathalie oRcha back in AM and will take over care from ID standpoint
--- NOTE | 2018-06-18 11:15 | P.PNCC ---
Subjective Subjective Remarks/Hospital Course: This is a 78-year-old male. Date of admission 06/17/2018. Past medical history includes multidrug-resistant urinary tract infection Pseudomonas /VRE, history of subarachnoid hemorrhage with residual right parietal attenuation on CAT scan, atrial fibrillation on chronic apixaban, hypertension, hyperlipidemia, COPD, chronic disease stage IV, history of obstructive nephrostomy/urostomy stone status post percutaneous nephrostomy tubes still in place, bladder/prostate cancer and currently with C. difficile. He is also on pilocarpine for removal of parotid gland. Patient presents to [facility] from [facility] with chief complaint of altered mental status. Patient has been more confused recently according to records. In route in the ambulance patient was noted to have was described as "seizure-like" activity. This resolved without any intervention. Patient had another seizure and was more lethargic in the ED was intubated using 20 mg etomidate [address] of the brain revealed decreased attenuation white matter right parietal lobe region. Laboratories revealed a macrocytic anemia, creatinine of 2.75. Baseline 1 1.8. Lactate of 10.9. Currently seen in room E 55 post intubation. Heart rate currently in the 150s. Will start on sedation/analgesia check MRI of brain and loaded with levetiracetam. Infectious to be consulted to switch to linezolid due to seizure activity. Subjective 06/18: Creatinine is decreased to 2.24. No further seizure activity. Currently sedation vacation will attempt extubate this a.m. Heart rate better controlled. No seizure activity on EEG. Objective Vital Signs / I&O: Vital Signs 06/17/18 11:25 06/17/18 11:26 06/17/18 11:30 Temperature Pulse Rate 146 H 146 H Respiratory Rate 16 16 Blood Pressure 157/110 H 177/104 H Pulse Oximetry 100 100 100 06/17/18 12:00 06/17/18 13:00 06/17/18 14:00 Temperature 98 F Pulse Rate 139 H 106 H 87 Respiratory Rate 16 17 16 Blood Pressure 172/109 H 145/63 H 129/70 Pulse Oximetry 100 100 100 06/17/18 15:00 06/17/18 15:40 06/17/18 15:43 Temperature Pulse Rate 83 117 H Respiratory Rate 16 16 16 Blood Pressure 117/68 Pulse Oximetry 100 06/17/18 16:00 06/17/18 17:00 06/17/18 18:00 Temperature 98.4 F Pulse Rate 123 H 102 H 107 H Respiratory Rate 16 16 16 Blood Pressure 133/77 136/91 H 144/84 H Pulse Oximetry 100 100 100 06/17/18 19:20 06/17/18 19:27 06/17/18 19:34 Temperature Pulse Rate 104 H 100 H Respiratory Rate 16 16 16 Blood Pressure Pulse Oximetry 100 100 06/17/18 20:00 06/17/18 21:00 06/17/18 22:00 Temperature 99.8 F H Pulse Rate 92 H 111 H 98 H Respiratory Rate 17 17 16 Blood Pressure 142/83 H 157/90 H 125/81 Pulse Oximetry 100 100 100 06/17/18 22:16 06/17/18 23:00 06/17/18 23:01 Temperature Pulse Rate 110 H 114 H Respiratory Rate 16 16 16 Blood Pressure 145/67 H Pulse Oximetry 100 100 100 06/18/18 00:00 06/18/18 00:47 06/18/18 01:00 Temperature 99.1 F Pulse Rate 113 H 136 H 136 H Respiratory Rate 17 16 16 Blood Pressure 145/100 H 93/66 L 82/50 L Pulse Oximetry 100 100 100 06/18/18 01:03 06/18/18 01:10 06/18/18 01:15 Temperature Pulse Rate 137 H 132 H 130 H Respiratory Rate 16 16 16 Blood Pressure 70/49 L 70/53 L 79/54 L Pulse Oximetry 100 100 100 06/18/18 01:30 06/18/18 02:00 06/18/18 02:30 Temperature Pulse Rate 108 H 110 H 120 H Respiratory Rate 21 17 20 Blood Pressure 145/97 H 117/80 142/97 H Pulse Oximetry 100 100 93 L 06/18/18 03:00 06/18/18 03:26 06/18/18 03:30 Temperature Pulse Rate 121 H 117 H 122 H Respiratory Rate 25 H 18 20 Blood Pressure 141/66 H 147/81 H Pulse Oximetry 92 L 100 06/18/18 04:00 06/18/18 04:29 06/18/18 04:30 Temperature 98.6 F Pulse Rate 112 H 117 H Respiratory Rate 20 18 16 Blood Pressure 137/65 122/66 Pulse Oximetry 100 100 100 06/18/18 05:00 06/18/18 05:30 06/18/18 06:00 Temperature Pulse Rate 106 H 102 H 126 H Respiratory Rate 16 17 21 Blood Pressure 135/86 134/92 H 143/98 H Pulse Oximetry 100 100 97 06/18/18 06:30 06/18/18 07:00 06/18/18 07:32 Temperature Pulse Rate 117 H 112 H 118 H Respiratory Rate 15 17 16 Blood Pressure 136/92 H 118/60 167/108 H Pulse Oximetry 100 100 98 06/18/18 08:00 06/18/18 08:02 06/18/18 08:04 Temperature 97.9 F Pulse Rate 104 H 111 H Respiratory Rate 16 16 16 Blood Pressure 138/69 Pulse Oximetry 100 100 06/18/18 08:30 06/18/18 09:00 Temperature Pulse Rate 108 H 106 H Respiratory Rate 24 17 Blood Pressure 149/101 H 161/89 H Pulse Oximetry 100 100 Intake & Output 06/17/18 06/18/18 06/18/18 18:59 06:59 18:59 Intake Total 1951 / 1949 1265 / 1265 Output Total 370 / 370 385 / 385 Balance 1580 / 1580 880 / 880 Weight 65.771 kg Intake: IV 1950 / 1949 1205 / 1205 NS Inj 1,000 ML @ 84 mls/hr IV. 1000 / 1000 CONT .[id number] [facility] Rx#:[id number] Zerbaxa Inj 375 MG In NS Inj 100 / 100 100 / 100 100 / 100 100 ML @ 100 mls/hr IV.SIG Q8H [facility] Rx#:[id number] Zosyn 3.375 GM Premix 50 ML @ 50 / 50 100 mls/hr IV.SIG ONCE ONE Rx#: [id number] NS Inj 1,000 ML @ Wide Open IV. 1800 / 1800 SIG .Q0M [facility] Rx#:[id number] Keppra Inj 500 MG In NS Inj 100 105 / 105 105 / 105 ML @ 400 mls/hr IV.SIG Q12H [facility] Rx#:[id number] Tube Irrigant 60 / 60 Output: Urine Amount (Stoma) 370 / 370 385 / 385 Continent Urostomy 50 / 50 Nephrostomy Tube Left 185 / 185 180 / 180 Nephrostomy Tube Right 135 / 135 205 / 205 Other: Date of Last Bowel Movement 06/18/18 06/18/18 # Bowel Movements 1 # Incontinent Bowel Movements 1 Result Diagrams: 06/18/18 04:00 06/18/18 04:00 Other Results: Microbiology 06/17/18 09:03 Blood - Peripheral Aerobic Blood Culture - Preliminary No growth in 1 day 06/17/18 09:03 Blood - Peripheral Anaerobic Blood Culture - Preliminary No growth in 1 day 06/17/18 09:00 Blood - Peripheral Aerobic Blood Culture - Preliminary No growth in 1 day 06/17/18 09:00 Blood - Peripheral Anaerobic Blood Culture - Preliminary No growth in 1 day 06/17/18 23:15 Sputum - Endotracheal Gram Stain - Final Imaging: Head CT 06/17/18 09:00 CONCLUSION: 1. No acute hemorrhage or mass effect. 2. Area of decreased attenuation involving the white matter of the right parietal lobe characteristic of an area of remote infarction. 3. Moderate atrophic change. . Chest X-Ray 06/17/18 09:01 CONCLUSION: No acute cardiopulmonary disease. There is no evidence of pneumonia on this single view study. Chest X-Ray 06/17/18 10:33 CONCLUSION: 1. Interval intubation and placement of nasogastric tube. The side port of the NG tube is near the gastroesophageal junction and could be advanced. 2. No acute cardiopulmonary disease. Objective Remarks: GENERAL: SKIN: Warm and dry. HEAD: Atraumatic. Normocephalic. EYES: Pupils equal and round. No scleral icterus. No injection or drainage. ENT: No nasal bleeding or discharge. Mucous membranes pink and moist. NECK: Trachea midline. No JVD. CARDIOVASCULAR: Regular rate and rhythm. RESPIRATORY: No accessory muscle use. Clear to auscultation. Breath sounds equal bilaterally. GASTROINTESTINAL: Abdomen soft, non-tender, nondistended. Hepatic and splenic margins not palpable. MUSCULOSKELETAL: Extremities without clubbing, cyanosis, or edema. No obvious deformities. NEUROLOGICAL: Awake and alert. No obvious cranial nerve deficits. Motor grossly within normal limits. Five out of 5 muscle strength in the arms and legs. Normal speech. PSYCHIATRIC: Appropriate mood and affect; insight and judgment normal. Assessment and Plan - Assessment and Plan Plan: Neuro/Psych: Seizure/new onset History of subarachnoid hemorrhage/subdural hematoma? Right parietal decreased attenuation noted Acute toxic metabolic encephalopathy Currently on propofol/fentanyl drips for sedation/analgesia while intubated Goal of RASS -[address] brain revealed decreased diffusion right parietal lobe region. MRI brain ordered. EEG no signs of epileptic activity. Seizure precautions Levetiracetam 1 g IV x1 now followed by 500 mg IV twice daily CV: Atrial fibrillation with rapid ventricular response Essential hypertension Hyperlipidemia Lactic acidosis Elevated troponin Rate currently well controlled. EKG revealed A. fib with RVR. No signs of ST elevation. 1 L normal saline ED. Currently 84 cc an hour. Not on any lipid-lowering agents at home. Serial lactates until cleared Elevated troponin likely type II demand ischemia secondary to A. fib with RVR. Will monitor. Resp: Acute respiratory failure secondary to altered mental status History of COPD [facility] /09/02/39. Currently on spontaneous breathing trial. Ventilator bundle albuterol/ipratropium aerosols every 4 hours with albuterol aerosols every 2 hours as needed dyspnea Spontaneous breathing trials when clinically cleared. We will attempt extubation today GI: C. difficile colitis NGT to LIWS N.p.o. except for medications Lansoprazole for GI prophylaxis. Holding bowel regimen in light of C. difficile colitis. Reevaluate in a.m. Pilocarpine 5 mg twice daily : History of bilateral nephrostomy secondary to obstructive process/urethral/ stones Patient has bilateral nephrostomy tubes in place. Maintained. Endo: Sliding scale insulin with Accu-Cheks to maintain euglycemia/every 6 hours aspart insulin medium protocol Check TSH -1.56 Renal: Acute kidney injury in the setting of chronic kidney disease stage IV Monitor urine output from nephrostomy tubes bilaterally. Accurate I's and O's Recheck BMP in a.m. 06/18 was 2.24 Heme: Chronic apixaban use Macrocytic anemia Continue apixaban 2.5 mg twice daily Monitor CBC daily. Follow trends. 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 difficile colitis Previously on Ceftolozane/tazobactam 750 mg IV every 8 hours and linezolid 600 mg tablet twice daily.. Currently on 0\\375 mg every 8 hours. We will of ID to evaluate with underlying seizure Continue vancomycin 125 4 times daily. Scheduled for taper starting today to 125 twice daily for a week followed by once daily for a week to help see orders Blood cultures x2, UA and sputum ordered 06/17 with results pending. MSK: Sacral DTI PT evaluate and treat Wound care eval and tx. FEN: Replace electrolytes as clinically indicated Currently on 0.9% NaCl at 84 cc now. Received 1 L wide open in ED. Access -Utilize peripheral IV. Central line if indicated Prophylaxis -GI -lansoprazole -DVT -SCD/apixaban will provide DVT prophylaxis Critical care time 35 minutes
[2018-06-18] MEDS: DRONABINOL 2.5 MG CAPSULE PO SCH ×2 (12:28→12:29)
--- NOTE | 2018-06-18 16:16 | MR ---
EXAM DATE: 06/18/2018 12:00 AM EDT AGE/SEX: 78 years / Male INDICATIONS: Seizures. Altered mental status. CLINICAL DATA: This is the patient's initial encounter. Patient reports that signs and symptoms have been present for 1 day and indicates a pain score of 0/10. MEDICAL/SURGICAL HISTORY: Hypertension. Chronic obstructive pulmonary disease. Carcinoma, pro static. . Parotidectomy. Urostomy. Nephrostomy. COMPARISON: [facility] [place]/O [place]AST, 06/17/2018. . TECHNIQUE: Multiplanar, multisequence examination of the brain was performed without contrast. FINDINGS: Examination is limited by patient motion. Cerebrum: Moderate diffuse cerebral atrophy. Encephalomalacia in the right parieto-occipital region. The ventricles are normal for age. No evidence of midline shift, mass lesion, hemorrhage or acute i nfarction. No extraaxial fluid collections are seen. The pituitary gland and suprasellar cistern ar e normal in configuration. White Matter: Prominent periventricular and focal deep white matter T2 prolongation. Posterior Fossa: The cerebellum and brainstem are intact. The 4th ventricle is midline. The cerebel lopontine angle is unremarkable. The cerebellar tonsils are normal in position. Diffusion Imaging: No focal areas of restricted diffusion are seen. No evidence of acute infarction . Extracranial: The visualized portions of the orbits and paranasal sinuses are unremarkable. CONCLUSION: 1. Motion degraded examination. 2. 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 3. Moderate cerebral atrophy with prominent periventricular ischemic white matter demyelination. 4. No acute infarction or hemorrhage. Electronically signed by: Gerald Castrejon MD 06/18/2018 4:14 PM EDT
[2018-06-18] MEDS: Sod Chloride 0.9% Inj 1,000 ML IV.SIG SCH (17:06)
[2018-06-18] MEDS: Mupirocin 2% Nasal Oint Topical Syringe EACH NARE SCH (21:46)
[2018-06-19] MEDS: CEFTOLOZANE IV.SIG SCH ×3 (00:32→15:35)
[2018-06-19] MEDS: SODIUM CHLOR 0.9% IV.SIG SCH ×3 (00:32→15:35)
[2018-06-19] MEDS: TAZOBACTAM IV.SIG SCH ×3 (00:32→15:35)
[2018-06-19] MEDS: Oral Hygiene Kit OROPHARYNG SCH ×4 (00:33→15:35)
[2018-06-19] MEDS: Insulin NovoLOG Aspart Correctional Sugar Inj SQ SCH ×4 (00:33→17:29)
[2018-06-19] MEDS: Chlorhexidine Gluconate 2% 1 Pack (2 Cloths) TOPICAL SCH (06:05)
[2018-06-19 07:04] LABS: Baso % (Auto) 0.4 % (0.0-2.0); Eos # (Auto) 0.1 th/mm3 (0.0-0.4); Eos % (Auto) 1.7 % (0.0-4.0); Hematocrit 23.9 % (39.0-51.0); Hemoglobin 8.2 gm/dL (13.0-17.0); Lymph # (Auto) 0.8 th/mm3 (1.0-4.8); Lymph % (Auto) 13.1 % (9.0-44.0); Mean Corpuscular HGB Conc 34.2 % (32.0-36.0); Mean Corpuscular Hemoglobin 33.3 pg (27.0-34.0); Mean Corpuscular Volume 97.3 fL (80.0-100.0); Mean Platelet Volume 8.2 fL (7.0-11.0); Mono % (Auto) 16.7 % (0.0-8.0); Neut # (Auto) 4.2 th/mm3 (1.8-7.7); Neut % (Auto) 68.1 % (16.0-70.0); Platelet Count 128 th/mm3 (150-450); Red Blood Count 2.45 mil/mm3 (4.50-5.90); Red Cell Distribution Width 15.7 % (11.6-17.2); White Blood Count 6.2 th/mm3 (4.0-11.0)
[2018-06-19 07:24] LABS: Calcium 8.3 mg/dL (8.5-10.1); Carbon Dioxide 18.2 meq/L (21.0-32.0); Potassium 3.8 meq/L (3.5-5.1)
[2018-06-19] MEDS: Chlorhexidine 0.12% Oral Kit 15 ML UDC OROPHARYNG SCH ×2 (07:34→20:21)
[2018-06-19] MEDS: DRONABINOL 2.5 MG CAPSULE PO SCH ×2 (07:48→13:30)
[2018-06-19] MEDS: Lactobacillus Acidophilus/L. Spores Tablet PO SCH ×2 (08:15→20:21)
[2018-06-19] MEDS: Pilocarpine HCl 5 MG Tablet PO SCH ×2 (08:15→20:20)
[2018-06-19] MEDS: Mupirocin 2% Nasal Oint Topical Syringe EACH NARE SCH ×2 (08:15→20:21)
[2018-06-19] MEDS: Carboxymethylcellulose 0.5% Opth Drops 15 ML Bottle EACH EYE SCH ×2 (08:16→20:20)
--- NOTE | 2018-06-19 13:06 | P.PNID ---
Subjective Remarks: Pts chart review He is known to me from his previous admission Patient is a 78-year-old male, resides in the alf, brought into the hospital for evaluation of confusion. Apparently has been more confused the last several days. While in the ambulance patient was noted to have a seizure- like activity which stopped. He had a similar episode in the ED and became very lethargic and ended up getting intubated. Patient currently is on the vent , and on sedation. 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 He was discharged to the alf, and was supposed to complete treatment with Zerbaxa and Linezolid. He was also on treatment for C. difficile colitis, and on oral vancomycin. Patient has had problem with bladder and prostate cancer, and has obstructive uropathy. He has had a urostomy put in, and currently has bilateral percutaneous nephrostomy tubes in place. It was last exchanged during his last admission around June 05. His antibiotic is supposed to be finished around June 20. He is also on oral vancomycin and plan was to give him tapering oral vancomycin for recurrent C. difficile colitis. Infectious disease consultation has been requested to evaluate the patient. post seizure Notes reviewed self extubated and doing OK Temps ok He is on CPAP this morning Awake and responding C/O SOB BP ok urine clx with sid tropicalis, 2/3 Antibiotics: Zerbaxa Vanco po Lines: PICC Past Medical History: Reviewed Allergies/Adverse Reactions: Allergies crab Allergy (Intermediate, Verified 05/30/18 18:33) Rash Blue Shell crab causes severe rash all over face and neck. Needs PCN to help clear it up. Patient CAN eat Shrimp and clams, scallops, oysters without problems. Objective Vital Signs 06/18/18 13:00 06/18/18 13:01 06/18/18 13:30 Temperature Pulse Rate 132 H 131 H 124 H Respiratory Rate 19 24 21 Blood Pressure 185/101 H 170/104 H Pulse Oximetry 100 100 99 06/18/18 14:00 06/18/18 14:30 06/18/18 15:00 Temperature Pulse Rate 138 H 120 H 117 H Respiratory Rate 26 H 21 17 Blood Pressure 154/94 H 150/92 H 130/80 Pulse Oximetry 90 L 100 100 06/18/18 15:30 06/18/18 15:48 06/18/18 16:00 Temperature 97.8 F Pulse Rate 122 H 0 L 131 H Respiratory Rate 20 23 Blood Pressure 134/94 H 144/98 H 133/99 H Pulse Oximetry 100 95 06/18/18 16:24 06/18/18 17:00 06/18/18 17:17 Temperature Pulse Rate 131 H 137 H 105 H Respiratory Rate 23 32 H 21 Blood Pressure 133/99 H 137/110 H Pulse Oximetry 95 100 06/18/18 18:00 06/18/18 19:00 06/18/18 19:01 Temperature Pulse Rate 108 H 129 H 124 H Respiratory Rate 20 30 H 28 H Blood Pressure 143/86 H 142/91 H Pulse Oximetry 100 86 L 85 L 06/18/18 20:00 06/18/18 21:00 06/18/18 21:38 Temperature 97.8 F Pulse Rate 146 H 111 H 132 H Respiratory Rate 34 H 19 34 H Blood Pressure 131/85 173/92 H 177/92 H Pulse Oximetry 87 L 98 85 L 06/18/18 22:00 06/18/18 22:10 06/18/18 22:11 Temperature Pulse Rate 137 H 139 H 129 H Respiratory Rate 49 H 33 H 18 Blood Pressure 109/88 Pulse Oximetry 80 L 87 L 94 L 06/18/18 23:00 06/19/18 00:00 06/19/18 01:00 Temperature 97.9 F Pulse Rate 141 H 121 H 130 H Respiratory Rate 36 H 26 H 21 Blood Pressure 153/104 H 149/104 H 148/109 H Pulse Oximetry 86 L 87 L 91 L 06/19/18 01:14 06/19/18 02:00 06/19/18 02:23 Temperature Pulse Rate 121 H 137 H 130 H Respiratory Rate 19 23 29 H Blood Pressure 171/87 H 167/85 H Pulse Oximetry 97 87 L 96 06/19/18 02:24 06/19/18 02:25 06/19/18 02:26 Temperature Pulse Rate 137 H 127 H 122 H Respiratory Rate 21 22 20 Blood Pressure 160/79 H 147/78 H 155/90 H Pulse Oximetry 90 L 92 L 94 L 06/19/18 02:27 06/19/18 02:28 06/19/18 03:00 Temperature Pulse Rate 144 H 144 H 123 H Respiratory Rate 24 31 H 20 Blood Pressure 170/96 H 123/81 Pulse Oximetry 93 L 95 99 06/19/18 04:00 06/19/18 05:00 06/19/18 06:00 Temperature 98.4 F Pulse Rate 119 H 130 H 119 H Respiratory Rate 18 26 H 19 Blood Pressure Pulse Oximetry 99 99 98 06/19/18 07:00 06/19/18 07:04 06/19/18 07:06 Temperature Pulse Rate 109 H 141 H 132 H Respiratory Rate 18 25 H 28 H Blood Pressure 133/95 H 182/87 H Pulse Oximetry 92 L 84 L 83 L 06/19/18 07:08 06/19/18 08:00 06/19/18 08:14 Temperature 98.1 F Pulse Rate 131 H 118 H 114 H Respiratory Rate 27 H 19 19 Blood Pressure 155/88 H 171/106 H 171/106 H Pulse Oximetry 85 L 97 98 06/19/18 09:00 06/19/18 09:01 06/19/18 10:00 Temperature Pulse Rate 141 H 135 H 130 H Respiratory Rate 25 H 20 19 Blood Pressure 162/107 H 162/107 H 124/84 Pulse Oximetry 88 L 93 L 99 06/19/18 11:00 Temperature Pulse Rate 111 H Respiratory Rate 18 Blood Pressure Pulse Oximetry Intake & Output 06/18/18 06/19/18 06/19/18 18:59 06:59 18:59 Intake Total 1355 / 1355 235 / 235 20 / 20 Output Total 1000 / 1000 1100 / 1100 550 / 550 Balance 355 / 355 -865 / -865 -530 / -530 Intake: IV 1355 / 1355 205 / 205 Diprivan 1000 mg/100 ml Inj 1, 50 / 50 000 mg In 100 ml @ 5 MCG/KG/MIN 1.973 mls/hr IV.CONT TITRATE PRN Rx#:[id number] NS Inj 1,000 ML @ 84 mls/hr IV. 1000 / 1000 CONT .[id number] TRAVIS Rx#:[id number] Zerbaxa Inj 375 MG In NS Inj 200 / 200 100 / 100 100 ML @ 100 mls/hr IV.SIG Q8H TRAVIS Rx#:[id number] Keppra Inj 500 MG In NS Inj 100 105 / 105 105 / 105 ML @ 400 mls/hr IV.SIG Q12H TRAVIS Rx#:[id number] Oral 30 / 30 20 / Output: Urine Amount (Stoma) 1000 / 1000 1100 / 1100 550 / 550 Continent Urostomy 0 / 0 Nephrostomy Tube Left 575 / 575 600 / 600 300 / 300 Nephrostomy Tube Right 425 / 425 500 / 500 250 / 250 Other: Date of Last Bowel Movement 06/18/18 06/18/18 06/18/18 06/17/18 09:00 Suprapubic Urine Urine Culture - Final Sid tropicalis 06/17/18 23:15 Sputum - Endotracheal Gram Stain - Final 06/17/18 23:15 Sputum - Endotracheal Sputum Culture - Final Light growth normal respiratory logan 06/17/18 09:03 Blood - Peripheral Aerobic Blood Culture - Preliminary No growth in 2 days 06/17/18 09:03 Blood - Peripheral Anaerobic Blood Culture - Preliminary No growth in 2 days 06/17/18 09:00 Blood - Peripheral Aerobic Blood Culture - Preliminary No growth in 2 days 06/17/18 09:00 Blood - Peripheral Anaerobic Blood Culture - Preliminary No growth in 2 days 06/17/18 20:20 Catheterized Urine Urine Culture - Preliminary No growth in 24 hours 06/17/18 20:22 Catheterized Urine Urine Culture - Preliminary No growth in 24 hours Lab - Hematology Results 06/18/18 06/19/18 04:00 06:15 WBC 5.3 6.2 RBC 2.44 L 2.45 L Hgb 8.0 L D 8.2 L Hct 24.1 L 23.9 L MCV 98.4 97.3 MCH 32.8 33.3 MCHC 33.3 34.2 RDW 15.8 15.7 Plt Count 158 128 L MPV 8.1 8.2 Neut % (Auto) 65.4 68.1 Lymph % (Auto) 21.1 13.1 [place] % (Auto) 11.8 H 16.7 H Eos % (Auto) 1.0 1.7 Baso % (Auto) 0.7 0.4 Neut # (Auto) 3.5 4.2 Lymph # (Auto) 1.1 0.8 L [place] # (Auto) 0.6 1.0 H Eos # (Auto) 0.1 0.1 Baso # (Auto) 0.0 0.0 WBC Differential . . Differential Comment Auto diff final Auto diff final Lab - Chemistry Results 06/17/18 06/17/18 06/17/18 12:49 16:07 16:23 Sodium Potassium Chloride Carbon Dioxide Anion Gap BUN Creatinine Estimated GFR POC Glucose 122 H 124 H Random Glucose Lactic Acid 1.7 Calcium Phosphorus Magnesium Total Bilirubin AST ALT Alkaline Phosphatase Troponin I Total Protein Albumin TSH 06/17/18 06/18/18 06/18/18 20:15 00:05 00:06 Sodium Potassium Chloride Carbon Dioxide Anion Gap BUN Creatinine Estimated GFR POC Glucose 103 Random Glucose Lactic Acid 1.2 Calcium Phosphorus Magnesium Total Bilirubin AST ALT Alkaline Phosphatase Troponin I 0.10 H Total Protein Albumin TSH 1.560 06/18/18 06/18/18 06/18/18 04:00 04:00 04:01 Sodium 145 Potassium 4.0 Chloride 114 H Carbon Dioxide 21.8 Anion Gap 9 BUN 39 H Creatinine 2.24 H Estimated GFR 28 L POC Glucose 88 Random Glucose 82 Lactic Acid 0.9 Calcium 8.1 L D Phosphorus 3.3 Magnesium 2.0 Total Bilirubin 0.5 AST 25 ALT 30 Alkaline Phosphatase 96 Troponin I Total Protein 6.4 D Albumin 2.7 L TSH 06/18/18 06/18/18 06/19/18 12:27 18:24 00:17 Sodium Potassium Chloride Carbon Dioxide Anion Gap BUN Creatinine Estimated GFR POC Glucose 96 93 83 Random Glucose Lactic Acid Calcium Phosphorus Magnesium Total Bilirubin AST ALT Alkaline Phosphatase Troponin I Total Protein Albumin TSH 06/19/18 06/19/18 06:10 06:15 Sodium 145 Potassium 3.8 Chloride 115 H Carbon Dioxide 18.2 L Anion Gap 12 BUN 33 H Creatinine 1.84 H Estimated GFR 36 L POC Glucose 72 Random Glucose 67 L Lactic Acid Calcium 8.3 L Phosphorus Magnesium Total Bilirubin AST ALT Alkaline Phosphatase Troponin I Total Protein Albumin TSH Imaging: ITS Impressions Head CT 06/17/18 09:00 CONCLUSION: 1. No acute hemorrhage or mass effect. 2. Area of decreased attenuation involving the white matter of the right parietal lobe characteristic of an area of remote infarction. 3. Moderate atrophic change. . Chest X-Ray 06/17/18 10:33 CONCLUSION: 1. Interval intubation and placement of nasogastric tube. The side port of the NG tube is near the gastroesophageal junction and could be advanced. 2. No acute cardiopulmonary disease. Head MRI 06/18/18 00:00 CONCLUSION: 1. Motion degraded examination. 2. 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 3. Moderate cerebral atrophy with prominent periventricular ischemic white matter demyelination. 4. No acute infarction or hemorrhage. Physical Exam: GENERAL: Awake, responding, on CPAP, not in respiratory distress. SKIN: Cool and dry. No generalized rash, no ecchymoses and no evidence of embolic lesions. HEAD: Atraumatic. Normocephalic. EYES: [place] conjunctiva. No petechia or hemorrhage. Pupils equal, round and reactive to light. Extraocular movements full and intact. No scleral icterus. No injection or drainage. EARS, NOSE AND THROAT: Nose without bleeding or purulent nasal discharge. No sinus tenderness. NECK: Trachea midline. Supple CARDIOVASCULAR: Regular rate and rhythm. No murmurs, rubs or gallops heard RESPIRATORY: Clear to auscultation. Breath sounds equal bilaterally. No rales , wheezing or rhonchi ABDOMEN: Soft, non-tender, + moderately distended. Bowel sounds present and normoactive. No guarding. No rebound. No organomegaly. Tender to palpation on LLQ ielostomy pinkl, clear urine in urine collection bag GUHas luis PCN, blood tinged urine on R; almost clear on L EXTREMITIES: No clubbing, cyanosis, or edema. No calf tenderness. Well perfused and warm. NEUROLOGICAL: Awake and alert. Cranial nerves grossly intact. Motor grossly within normal limits. PSYCHIATRIC: Normal affect, calm and cooperative. LINE: No evidence of infection Assessment and Plan - Plan Impressio Seizure Hx MDRO UTI - has luis PCN and urostomy Hx recurrent C diff Respiratory failure CKD: GFR seems @ b/l UTI, fuguria Recommendation complete Zerbaxa (stop date was scheduled today) cont Vancomycin start diflucan, 100 mg PO KUB if cont to have abd pain/tenderness or findings on KUB will get CT A/P chk c.diff D/W RN
--- NOTE | 2018-06-19 13:11 | P.PNCC ---
Subjective Subjective Remarks/Hospital Course: This is a 78-year-old male. Date of admission 06/17/2018. Past medical history includes multidrug-resistant urinary tract infection Pseudomonas /VRE, history of subarachnoid hemorrhage with residual right parietal attenuation on CAT scan, atrial fibrillation on chronic apixaban, hypertension, hyperlipidemia, COPD, chronic disease stage IV, history of obstructive nephrostomy/urostomy stone status post percutaneous nephrostomy tubes still in place, bladder/prostate cancer and currently with C. difficile. He is also on pilocarpine for removal of parotid gland. Patient presents to [facility] from [facility] with chief complaint of altered mental status. Patient has been more confused recently according to records. In route in the ambulance patient was noted to have was described as "seizure-like" activity. This resolved without any intervention. Patient had another seizure and was more lethargic in the ED was intubated using 20 mg etomidate [address] of the brain revealed decreased attenuation white matter right parietal lobe region. Laboratories revealed a macrocytic anemia, creatinine of 2.75. Baseline 1 1.8. Lactate of 10.9. Currently seen in room E 55 post intubation. Heart rate currently in the 150s. Will start on sedation/analgesia check MRI of brain and loaded with levetiracetam. Infectious to be consulted to switch to linezolid due to seizure activity. 06/18: Creatinine is decreased to 2.24. No further seizure activity. Currently sedation vacation will attempt extubate this a.m. Heart rate better controlled. No seizure activity on EEG. Subjective 06/19: Creatinine is decreased to 1.8. No further seizure activity. Self extubated yesterday. Less confused. Oriented to person and place not time. Shawanda in urine. Objective Vital Signs / I&O: Vital Signs 06/18/18 13:30 06/18/18 14:00 06/18/18 14:30 Temperature Pulse Rate 124 H 138 H 120 H Respiratory Rate 21 26 H 21 Blood Pressure 170/104 H 154/94 H 150/92 H Pulse Oximetry 99 90 L 100 06/18/18 15:00 06/18/18 15:30 06/18/18 15:48 Temperature Pulse Rate 117 H 122 H 0 L Respiratory Rate 17 20 Blood Pressure 130/80 134/94 H 144/98 H Pulse Oximetry 100 100 06/18/18 16:00 06/18/18 16:24 06/18/18 17:00 Temperature 97.8 F Pulse Rate 131 H 131 H 137 H Respiratory Rate 23 23 32 H Blood Pressure 133/99 H 133/99 H Pulse Oximetry 95 95 06/18/18 17:17 06/18/18 18:00 06/18/18 19:00 Temperature Pulse Rate 105 H 108 H 129 H Respiratory Rate 21 20 30 H Blood Pressure 137/110 H 143/86 H Pulse Oximetry 100 100 86 L 06/18/18 19:01 06/18/18 20:00 06/18/18 21:00 Temperature 97.8 F Pulse Rate 124 H 146 H 111 H Respiratory Rate 28 H 34 H 19 Blood Pressure 142/91 H 131/85 173/92 H Pulse Oximetry 85 L 87 L 98 06/18/18 21:38 06/18/18 22:00 06/18/18 22:10 Temperature Pulse Rate 132 H 137 H 139 H Respiratory Rate 34 H 49 H 33 H Blood Pressure 177/92 H Pulse Oximetry 85 L 80 L 87 L 06/18/18 22:11 06/18/18 23:00 06/19/18 00:00 Temperature 97.9 F Pulse Rate 129 H 141 H 121 H Respiratory Rate 18 36 H 26 H Blood Pressure 109/88 153/104 H 149/104 H Pulse Oximetry 94 L 86 L 87 L 06/19/18 01:00 06/19/18 01:14 06/19/18 02:00 Temperature Pulse Rate 130 H 121 H 137 H Respiratory Rate 21 19 23 Blood Pressure 148/109 H 171/87 H Pulse Oximetry 91 L 97 87 L 06/19/18 02:23 06/19/18 02:24 06/19/18 02:25 Temperature Pulse Rate 130 H 137 H 127 H Respiratory Rate 29 H 21 22 Blood Pressure 167/85 H 160/79 H 147/78 H Pulse Oximetry 96 90 L 92 L 06/19/18 02:26 06/19/18 02:27 06/19/18 02:28 Temperature Pulse Rate 122 H 144 H 144 H Respiratory Rate 20 24 31 H Blood Pressure 155/90 H 170/96 H 123/81 Pulse Oximetry 94 L 93 L 95 06/19/18 03:00 06/19/18 04:00 06/19/18 05:00 Temperature 98.4 F Pulse Rate 123 H 119 H 130 H Respiratory Rate 20 18 26 H Blood Pressure Pulse Oximetry 99 99 99 06/19/18 06:00 06/19/18 07:00 06/19/18 07:04 Temperature Pulse Rate 119 H 109 H 141 H Respiratory Rate 19 18 25 H Blood Pressure 133/95 H Pulse Oximetry 98 92 L 84 L 06/19/18 07:06 06/19/18 07:08 06/19/18 08:00 Temperature 98.1 F Pulse Rate 132 H 131 H 118 H Respiratory Rate 28 H 27 H 19 Blood Pressure 182/87 H 155/88 H 171/106 H Pulse Oximetry 83 L 85 L 97 06/19/18 08:14 06/19/18 09:00 06/19/18 09:01 Temperature Pulse Rate 114 H 141 H 135 H Respiratory Rate 19 25 H 20 Blood Pressure 171/106 H 162/107 H 162/107 H Pulse Oximetry 98 88 L 93 L 06/19/18 10:00 06/19/18 11:00 Temperature Pulse Rate 130 H 111 H Respiratory Rate 19 18 Blood Pressure 124/84 Pulse Oximetry 99 Intake & Output 06/18/18 06/19/18 06/19/18 18:59 06:59 18:59 Intake Total 1355 / 1355 235 / 235 20 / 20 Output Total 1000 / 1000 1100 / 1100 550 / 550 Balance 355 / 355 -865 / -865 -530 / -530 Intake: IV 1355 / 1355 205 / 205 Diprivan 1000 mg/100 ml Inj 1, 50 / 50 000 mg In 100 ml @ 5 MCG/KG/MIN 1.973 mls/hr IV.CONT TITRATE PRN Rx#:[id number] NS Inj 1,000 ML @ 84 mls/hr IV. 1000 / 1000 CONT .[id number] TRAVIS Rx#:[id number] Zerbaxa Inj 375 MG In NS Inj 200 / 200 100 / 100 100 ML @ 100 mls/hr IV.SIG Q8H TRAVIS Rx#:[id number] Keppra Inj 500 MG In NS Inj 100 105 / 105 105 / 105 ML @ 400 mls/hr IV.SIG Q12H TRAVIS Rx#:[id number] Oral 30 / 30 20 / 20 Output: Urine Amount (Stoma) 1000 / 1000 1100 / 1100 550 / 550 Continent Urostomy 0 / 0 Nephrostomy Tube Left 575 / 575 600 / 600 300 / 300 Nephrostomy Tube Right 425 / 425 500 / 500 250 / 250 Other: Date of Last Bowel Movement 06/18/18 06/18/18 06/18/18 Result Diagrams: 06/19/18 06:15 06/19/18 06:15 Other Results: Microbiology 06/17/18 20:22 Catheterized Urine Urine Culture - Final Shawanda tropicalis 06/17/18 09:00 Suprapubic Urine Urine Culture - Final Shawanda tropicalis 06/17/18 23:15 Sputum - Endotracheal Gram Stain - Final 06/17/18 23:15 Sputum - Endotracheal Sputum Culture - Final Light growth normal respiratory logan 06/17/18 09:03 Blood - Peripheral Aerobic Blood Culture - Preliminary No growth in 2 days 06/17/18 09:03 Blood - Peripheral Anaerobic Blood Culture - Preliminary No growth in 2 days 06/17/18 09:00 Blood - Peripheral Aerobic Blood Culture - Preliminary No growth in 2 days 06/17/18 09:00 Blood - Peripheral Anaerobic Blood Culture - Preliminary No growth in 2 days 06/17/18 20:20 Catheterized Urine Urine Culture - Preliminary No growth in 24 hours Imaging: Head CT 06/17/18 09:00 CONCLUSION: 1. No acute hemorrhage or mass effect. 2. Area of decreased attenuation involving the white matter of the right parietal lobe characteristic of an area of remote infarction. 3. Moderate atrophic change. . Chest X-Ray 06/17/18 09:01 CONCLUSION: No acute cardiopulmonary disease. There is no evidence of pneumonia on this single view study. Chest X-Ray 06/17/18 10:33 CONCLUSION: 1. Interval intubation and placement of nasogastric tube. The side port of the NG tube is near the gastroesophageal junction and could be advanced. 2. No acute cardiopulmonary disease. Head MRI 06/18/18 00:00 CONCLUSION: 1. Motion degraded examination. 2. 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 3. Moderate cerebral atrophy with prominent periventricular ischemic white matter demyelination. 4. No acute infarction or hemorrhage. Objective Remarks: GENERAL: This is a 78-year-old male currently resting in bed in no acute distress SKIN: Warm and dry. HEAD: Atraumatic. Normocephalic. EYES: Pupils equal and round. No scleral icterus. No injection or drainage. ENT: No nasal bleeding or discharge. Mucous membranes pink and moist. NECK: Trachea midline. No JVD. CARDIOVASCULAR: Tachycardic, S1, S2. No S4. Without murmur RESPIRATORY: No accessory muscle use. Clear to auscultation. Breath sounds equal bilaterally. GASTROINTESTINAL: Abdomen soft, non-tender, nondistended. Hepatic and splenic margins not palpable. MUSCULOSKELETAL: Extremities without clubbing, cyanosis, or edema. No obvious deformities. Patient has suprapubic catheter in place and bilateral nephrostomy tubes in place with cloudy yellow output NEUROLOGICAL: Awake and alert. No obvious cranial nerve deficits. Motor grossly within normal limits. Five out of 5 muscle strength in the arms and legs. Normal speech. Assessment and Plan - Assessment and Plan Plan: Neuro/Psych: Seizure/new onset History of subarachnoid hemorrhage/subdural hematoma? Right parietal decreased attenuation noted Acute toxic metabolic encephalopathy CT brain revealed decreased diffusion right parietal lobe region. MRI brain revealed no acute intracranial findings. Decreased area of perfusion in the right parietal lobe region. EEG no signs of epileptic activity. Seizure precautions Continue levetiracetam 500 mg IV twice daily CV: Atrial fibrillation with rapid ventricular response Essential hypertension Hyperlipidemia Lactic acidosis Elevated troponin Rate currently somewhat controlled EKG revealed A. fib with RVR. No signs of ST elevation. IV fluids discontinued Not on any lipid-lowering agents at home. Serial lactates until cleared Elevated troponin likely type II demand ischemia secondary to A. fib with RVR. Will monitor. Resp: Acute respiratory failure secondary to altered mental status History of COPD nasal cannula to maintain saturations greater than equal to 92% Incentive spirometry while awake albuterol/ipratropium aerosols every 4 hours with albuterol aerosols every 2 hours as needed dyspnea Self extubated 06/18 GI: C. difficile colitis Advance diet as tolerated per speech therapy Lansoprazole for GI prophylaxis. Holding bowel regimen in light of C. difficile colitis. Reevaluate in a.m. Pilocarpine 5 mg twice daily : History of bilateral nephrostomy secondary to obstructive process/urethral/ stones Patient has bilateral nephrostomy tubes in place. Maintained. Endo: Sliding scale insulin with Accu-Cheks to maintain euglycemia/every 6 hours aspart insulin medium protocol Check TSH -1.56 Renal: Acute kidney injury in the setting of chronic kidney disease stage IV Monitor urine output from nephrostomy tubes bilaterally. Accurate I's and O's Recheck BMP in a.m. 06/18 was 2.24 Heme: Chronic apixaban use Macrocytic anemia Thrombocytopenia Continue apixaban 2.5 mg twice daily Monitor CBC daily. Follow trends. 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 difficile colitis Shawanda tropicalis urinary tract infection Previously on Ceftolozane/tazobactam 750 mg IV every 8 hours and linezolid 600 mg tablet twice daily.. Currently on 0375 mg every 8 hours. We will of ID to evaluate with underlying seizure Continue vancomycin 125 4 times daily. Scheduled for taper starting today to 125 twice daily for a week followed by once daily for a week to help see orders Blood cultures x2, ordered 06/17 no growth today. Urine from urostomy in 1 nephrostomy with Shawanda tropicalis. Management per infectious disease. MSK: Sacral DTI PT evaluate and treat Wound care eval and tx. FEN: Replace electrolytes as clinically indicated Currently on 0.9% NaCl at 84 cc now. Continue today 06/19 Access -Utilize peripheral IV. Central line if indicated Prophylaxis -GI -lansoprazole -DVT -SCD/apixaban will provide DVT prophylaxis Goal to follow. Patient is stable from a critical care medicine standpoint. Assign care to hospitalist in a.m. 06/20. Okay to transfer from ICU.
[2018-06-19] MEDS: Sod Chloride 0.9% Inj 1,000 ML IV.CONT SCH (13:37)
--- NOTE | 2018-06-19 14:42 | XR ---
EXAM DATE: 06/19/2018 12:00 AM EDT AGE/SEX: 78 years / Male INDICATIONS: Evaluate for distention. CLINICAL DATA: This is the patient's initial encounter. Patient reports that signs and symptoms have been present for 3 days and indicates a pain score of 0/10. MEDICAL/SURGICAL HISTORY: Hypertension. Chronic obstructive pulmonary disease. Carcinoma, pro static. . Parotidectomy. Urostomy. Nephrostomy COMPARISON: POI, XR ABDOMEN KUB, 02/28/2017. . FINDINGS: The bowel gas pattern is nonspecific. There are some air-filled nondilated loops of small and large bowel. There appear to be bilateral nephrostomy catheters in place. There are multiple surgical clips in the pelvis bilaterally. There are degenerative changes of the lumbar spine. CONCLUSION: Nonspecific bowel gas pattern with some air-filled nondilated loops of small and large bowel. Electronically signed by: Keith Lee MD 06/19/2018 2:41 PM EDT
[2018-06-19] MEDS: Fluconazole 100 MG Tablet PO SCH (16:28)
[2018-06-20] MEDS: Oral Hygiene Kit OROPHARYNG SCH ×4 (00:41→18:23)
[2018-06-20] MEDS: Insulin NovoLOG Aspart Correctional Sugar Inj SQ SCH ×4 (00:41→18:23)
[2018-06-20] MEDS: Chlorhexidine Gluconate 2% 1 Pack (2 Cloths) TOPICAL SCH (03:13)
[2018-06-20 05:51] LABS: Baso % (Auto) 0.7 % (0.0-2.0); Eos # (Auto) 0.1 th/mm3 (0.0-0.4); Eos % (Auto) 2.8 % (0.0-4.0); Hematocrit 22.1 % (39.0-51.0); Hemoglobin 7.6 gm/dL (13.0-17.0); Lymph # (Auto) 0.7 th/mm3 (1.0-4.8); Lymph % (Auto) 14.5 % (9.0-44.0); Mean Corpuscular HGB Conc 34.5 % (32.0-36.0); Mean Corpuscular Hemoglobin 33.2 pg (27.0-34.0); Mean Corpuscular Volume 96.2 fL (80.0-100.0); Mean Platelet Volume 7.9 fL (7.0-11.0); Mono % (Auto) 21.4 % (0.0-8.0); Neut # (Auto) 2.9 th/mm3 (1.8-7.7); Neut % (Auto) 60.6 % (16.0-70.0); Platelet Count 125 th/mm3 (150-450); Red Cell Distribution Width 15.4 % (11.6-17.2); White Blood Count 4.7 th/mm3 (4.0-11.0)
[2018-06-20 06:21] LABS: Alanine Aminotransferase 25 U/L (12-78); Albumin 2.7 g/dL (3.4-5.0); Anion Gap 13 meq/L (5-15); Aspartate Aminotransferase 19 U/L (15-37); Blood Urea Nitrogen 29 mg/dL (7-18); Calcium 8.6 mg/dL (8.5-10.1); Carbon Dioxide 19.2 meq/L (21.0-32.0); Chloride 117 meq/L (98-107); Glomerular Filtration Rate 35 mL/min (>89); Glucose,Random 75 mg/dL (74-106); Magnesium 1.7 mg/dL (1.5-2.5); Phosphorus 3.3 mg/dL (2.5-4.9); Potassium 3.5 meq/L (3.5-5.1); Sodium 149 meq/L (136-145)
[2018-06-20 06:24] LABS: Alkaline Phosphatase 92 U/L (45-117); Total Protein 6.7 g/dL (6.4-8.2)
[2018-06-20] MEDS: DRONABINOL 2.5 MG CAPSULE PO SCH ×2 (07:54→11:23)
[2018-06-20] MEDS: Chlorhexidine 0.12% Oral Kit 15 ML UDC OROPHARYNG SCH ×2 (07:54→20:20)
[2018-06-20] MEDS: Mupirocin 2% Nasal Oint Topical Syringe EACH NARE SCH ×2 (07:59→20:19)
[2018-06-20] MEDS: Pilocarpine HCl 5 MG Tablet PO SCH ×2 (07:59→20:19)
[2018-06-20] MEDS: Fluconazole 100 MG Tablet PO SCH (07:59)
[2018-06-20] MEDS: Lactobacillus Acidophilus/L. Spores Tablet PO SCH ×2 (07:59→20:19)
[2018-06-20] MEDS: Carboxymethylcellulose 0.5% Opth Drops 15 ML Bottle EACH EYE SCH ×2 (08:01→20:20)
--- NOTE | 2018-06-20 10:05 | P.HPIM ---
History of Present Illness Service: [facility] Primary Care Physician: [facility] Chief Complaint: Seizure/altered mental status History of Present Illness: This is a 78-year-old CM with PMHx of Multidrug-resistant UTI Pseudomonas/VRE, Hx of subarachnoid hemorrhage with residual right parietal attenuation on CAT scan, A.Fib on chronic apixaban, HTN, HLD, Hx of obstructive nephrostomy/ urostomy stone status post percutaneous nephrostomy tubes still in place, bladder/prostate cancer s/p sx now with urostomy, and currently with C. Difficile. Patient is also on pilocarpine for removal of parotid gland. Patient presented to [facility] from [facility] with altered mental status. Per records, patient in EMS ambulance noted to have a "seizure-like" activity. This resolved without any intervention. Patient had another seizure and was more lethargic in the ED s/p intubation. CT of the brain revealed decreased attenuation white matter right parietal lobe region. Patient now stable in ICU, we have been consulted for med mgmt. Patient this AM with no confusion, reports that he feels that he is at his baseline. Patient is tolerating PO, voiding with urotsomy, +diarrhea. - Diagnosis (1) C. difficile colitis (2) UTI (urinary tract infection) (3) Atrial fibrillation (4) Acute on chronic kidney failure (5) History of bladder cancer (6) Anemia in chronic kidney disease (CKD) (7) Nephrostomy status (8) Altered mental status (9) Seizures Inpatient Certification: I certify that the inpatient services were ordered in accordance with Medicare regulations governing the order. This includes certification that hospital inpatient services are reasonable and necessary and in the case of services not specified as inpatient-only under 42 CFR 419.22(n), that they are appropriately provided as inpatient services in accordance to with the 2-midnight benchmark under 43 CFR 412.3(e) Estimated Total Length of Stay (Days): 5 Plans for Post Hospital Care: Not yet determined 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 - Medical History Medical History: Medical History (Last Reviewed 06/20/18 @ 10:04 by Saskia Flood MD) Anticoagulant long-term use Chronic kidney disease, stage IV (severe) Essential hypertension History of MRSA infection Hyperlipidemia MDRO (multiple drug resistant organisms) resistance Onset Date: ~06/17/18 Nasal fracture Open left femoral fracture VRE carrier COPD (chronic obstructive pulmonary disease) H/O reduction of nasal fracture History of Clostridium difficile infection Kidney stones Nasal bones, closed fracture Prostate cancer Subdural hematoma UTI (urinary tract infection) Hypotension Intertrochanteric fracture of left hip Parotid mass - Surgical History Surgical History: Surgical History (Last Reviewed 06/20/18 @ 10:05 by Saskia Flood MD) History of parotidectomy History of urostomy Nephrostomy status - Family History Family History: Family History (Last Reviewed 06/20/18 @ 10:05 by Saskia Flood MD) Father Coronary artery disease Other Osteoarthritis - Social History I have reviewed the patient's Social History: Yes - Tobacco History Second Hand Smoke Exposure: No Tobacco Use In Past 30 Days: No Smoking Status: Former smoker - Alcohol History How Often Do You Have a Drink Containing Alcohol: Never - Substance Use History Substance History: No History of Abuse - Travel History Recent Travel in the [place] Within the Last 8 Weeks: No Recent Travel Out of the Country Within the Last 8 Weeks: No - Immunization History Tetanus Immunization: Unsure Medications and Allergies Active Medications: Active Medications Acetaminophen (Tylenol) 650 mg PO Q6H PRN PRN Reason: FEVER Albuterol (Albuterol Neb (Prn)) 2.5 mg NEB Q2HR NEB PRN PRN Reason: SHORTNESS OF BREATH/WHEEZING Albuterol (Duoneb Neb (Marko)) 1 ampul NEB Q4HR NEB [facility] Last Admin: 06/20/18 07:22 Dose: Not Given Apixaban (Eliquis) 2.5 mg PO BID [facility] Last Admin: 06/20/18 07:59 Dose: 2.5 mg Artificial Tears (Refresh Tears 0.5% Opth Drops) 1 drop EACH EYE BID [facility] Last Admin: 06/20/18 08:01 Dose: 1 drop Chlorhexidine Gluconate (Peridex 0.12% Oral Kit) 15 ml OROPHARYNG BID@0800, 2000 [facility] Last Admin: 06/20/18 07:54 Dose: Not Given Chlorhexidine Gluconate (Chlorhexidine 2% Cloth) 3 pack TOPICAL DAILY@0400 [facility] Stop: 06/23/18 03:59 Last Admin: 06/20/18 03:13 Dose: 3 pack Chlorhexidine Gluconate (Chlorhexidine 2% Cloth) 3 pack TOPICAL DAILY@0400 PRN PRN Reason: Extra cloth needed Stop: 06/23/18 03:59 Dextrose (D50w Vial) 50 ml IV.PUSH UNSCH PRN PRN Reason: PER HYPOGLYCEMIA PROTOCOL Dronabinol (Marinol) 2.5 mg PO AC LUNCH [facility] Last Admin: 06/19/18 13:30 Dose: 2.5 mg Dronabinol (Marinol) 2.5 mg PO AC BREAKFAST [facility] Last Admin: 06/20/18 07:54 Dose: 2.5 mg Fluconazole (Diflucan) 100 mg PO DAILY [facility] Last Admin: 06/20/18 07:59 Dose: 100 mg Glucagon (Glucagon Inj) 1 mg OTHER PRN PRN PRN Reason: for Hypoglycemia Protocol Sodium Chloride (Ns Inj) 1,000 mls @ 0 mls/hr IV.SIG .Q0M [facility] Last Infusion: 06/19/18 13:38 Dose: 0 mls/hr Levetiracetam 500 mg/ Sodium (Chloride) 105 mls @ 400 mls/hr IV.SIG Q12H [facility] Last Admin: 06/20/18 08:00 Dose: 400 mls/hr Sodium Chloride (Ns Inj) 500 mls @ 0 mls/hr IV.SIG BOLUS [facility] Insulin Aspart (Novolog Insulin Correctional Sugar Inj) 0 unit SQ Q6HR [facility]; Protocol Last Admin: 06/20/18 06:08 Dose: Not Given Labetalol HCl (Trandate Inj) 10 mg IV.PUSH Q1H PRN PRN Reason: Sbp>165, Dbp>90, Hr>65 Lactobacillus Acidophilus (Lactinex) 1 tab PO BID [facility] Last Admin: 06/20/18 07:59 Dose: 1 tab Lansoprazole (Prevacid Solutab) 30 mg NG/OG DAILY [facility] Last Admin: 06/20/18 08:00 Dose: 30 mg Midodrine (Proamatine) 5 mg PO TID [facility] Last Admin: 06/20/18 07:59 Dose: Not Given Miscellaneous Medication () 1 each OROPHARYNG 0000,0400,1200,1600 [facility] Last Admin: 06/20/18 03:13 Dose: Not Given Multivitamins (Theragran) 1 tab PO DAILY [facility] Last Admin: 06/20/18 07:59 Dose: 1 tab Mupirocin (Bactroban 2% Nasal Oint) 1 applicatio EACH NARE BID [facility] Last Admin: 06/20/18 07:59 Dose: 1 applicatio Nitroglycerin (Nitro-Bid 2% Oint) 2 inch TOPICAL Q6HR PRN PRN Reason: Sbp>165, Dbp>90 Pom: (Ceftolozane- Tazobactam [Zerbaxa] 750 Mg) 0 each PO Q8H [facility] Pilocarpine HCl (Salagen) 5 mg PO BID [facility] Last Admin: 06/20/18 07:59 Dose: 5 mg Sodium Chloride (Ns Flush) 2 ml IV.FLUSH BID [facility] Last Admin: 06/20/18 08:00 Dose: 2 ml Sodium Chloride (Ns Flush) 2 ml IV.FLUSH PRN PRN PRN Reason: FLUSH AFTER USING IV ACCESS Vancomycin HCl (Vancomycin Po) 125 mg PO Q6HR [facility]; Taper Stop: 08/29/18 11:01 Last Admin: 06/20/18 06:07 Dose: 125 mg Allergies Allergy/AdvReac Type Severity Reaction Status Date / Time crab Allergy Intermediate Rash Verified 05/30/18 18:33 Home Medications Medication Instructions Recorded Confirmed Type apixaban [Eliquis] 2.5 mg PO BID 05/15/18 06/17/18 History midodrine 5 mg PO TID 05/15/18 06/17/18 History pilocarpine HCl 5 mg PO BID 05/15/18 06/17/18 History Saccharomyces boulardii [Florastor] 250 mg PO BID 06/17/18 06/17/18 History Exam Vital signs: Vital Signs 06/19/18 10:00 06/19/18 11:00 06/19/18 12:00 Temperature 97.9 F Pulse Rate 130 H 109 H 121 H Respiratory Rate 19 27 H 18 Blood Pressure 124/84 138/81 125/82 Pulse Oximetry 99 97 98 06/19/18 13:00 06/19/18 14:00 06/19/18 15:00 Temperature Pulse Rate 114 H 124 H 117 H Respiratory Rate 23 20 24 Blood Pressure 132/90 149/84 H 126/92 H Pulse Oximetry 99 97 100 06/19/18 16:00 06/19/18 17:00 06/19/18 18:00 Temperature 98.0 F Pulse Rate 127 H 138 H 122 H Respiratory Rate 21 24 20 Blood Pressure 137/85 100/77 108/77 Pulse Oximetry 99 85 L 97 06/19/18 19:00 06/19/18 19:46 06/19/18 20:00 Temperature 97.7 F Pulse Rate 134 H 116 H 135 H Respiratory Rate 21 22 20 Blood Pressure 122/72 129/92 H Pulse Oximetry 92 L 100 95 06/19/18 21:00 06/19/18 22:00 06/19/18 23:00 Temperature Pulse Rate 120 H 133 H 124 H Respiratory Rate 20 20 19 Blood Pressure 132/84 119/87 132/93 H Pulse Oximetry 96 97 99 06/19/18 23:14 06/20/18 00:00 06/20/18 01:00 Temperature 98.1 F Pulse Rate 102 H 144 H 121 H Respiratory Rate 20 19 18 Blood Pressure 136/74 121/78 Pulse Oximetry 98 99 06/20/18 02:00 06/20/18 03:00 06/20/18 04:00 Temperature 98.2 F Pulse Rate 120 H 115 H 125 H Respiratory Rate 19 19 24 Blood Pressure 118/78 118/81 135/89 Pulse Oximetry 99 98 98 06/20/18 07:00 06/20/18 07:22 06/20/18 08:00 Temperature 97.5 F L Pulse Rate 119 H 133 H 118 H Respiratory Rate 19 22 Blood Pressure 133/98 H 179/98 H Pulse Oximetry 99 98 99 06/20/18 09:00 Temperature Pulse Rate 117 H Respiratory Rate 18 Blood Pressure 123/78 Pulse Oximetry 100 Intake & Output 06/19/18 06/20/18 06/20/18 18:59 06:59 18:59 Intake Total 1030 / 1030 585 / 585 Output Total 1250 / 1250 450 / 450 Balance -220 / -220 135 / 135 Intake: IV 890 / 890 105 / 105 NS Inj 1,000 ML @ 84 mls/hr IV. 585 / 585 CONT .[id number] MARKO Rx#:[id number] Zerbaxa Inj 375 MG In NS Inj 200 / 200 100 ML @ 100 mls/hr IV.SIG Q8H MARKO Rx#:[id number] Keppra Inj 500 MG In NS Inj 100 105 / 105 105 / 105 ML @ 400 mls/hr IV.SIG Q12H MARKO Rx#:[id number] Oral 140 / 140 480 / 480 Output: Urine Amount (Stoma) 1250 / 1250 450 / 450 Continent Urostomy 50 / 50 Nephrostomy Tube Left 650 / 650 150 / 150 Nephrostomy Tube Right 550 / 550 300 / 300 Other: Date of Last Bowel Movement 06/18/18 06/18/18 06/18/18 Narrative: GENERAL: thin, male, resting in bed, in no acute distress SKIN: Warm and dry. 1x1cm, DTI - sacral HEENT: Atraumatic. Normocephalic. PERRLA. No scleral icterus. No injection or drainage. MOM. NECK: Trachea midline, on room air CARDIOVASCULAR: Tachycardic, S1, S2. No murmurs, rubs, gallops RESPIRATORY: CTAx2 GASTROINTESTINAL: Abdomen soft, non-tender, nondistended. Hepatic and splenic margins not palpable. MUSCULOSKELETAL: Extremities without clubbing, cyanosis, or edema. No obvious deformities. Patient has suprapubic catheter in place with muna urine, bilateral nephrostomy tubes in place with cloudy yellow output on L, serosanguineous on R. NEUROLOGICAL: AAOx3, no focal deficits. Motor grossly within normal limits. Normal speech. Results - Labs CBC & Chem 7: 06/20/18 05:15 06/20/18 05:15 Labs: Short CBC 06/20/18 Range/Units 05:15 WBC 4.7 (4.0-11.0) th/mm3 Hgb 7.6 L (13.0-17.0) gm/dL Hct 22.1 L (39.0-51.0) % Plt Count 125 L (150-450) th/mm3 BMP 06/20/18 05:15 Sodium 149 H Potassium 3.5 Chloride 117 H Carbon Dioxide 19.2 L BUN 29 H Creatinine 1.87 H Calcium 8.6 Liver Function 06/20/18 Range/Units 05:15 Total Bilirubin 0.3 (0.2-1.0) mg/dL AST 19 (15-37) U/L ALT 25 (12-78) U/L Alkaline Phosphatase 92 (45-117) U/L Albumin 2.7 L (3.4-5.0) g/dL - Imaging Impressions Abdomen X-Ray 06/19/18 00:00 CONCLUSION: Nonspecific bowel gas pattern with some air-filled nondilated loops of small and large bowel. Caprini VTE Risk Assessment Caprini VTE Risk Assessment: Moderate/High Risk (score >= 2) Caprini Risk Assessment Model: Point Value = 1 Point Value = 2 Point Value = 3 Point Value = 5 Age 41-60 Minor surgery BMI > 25 kg/m2 Swollen legs Varicose veins or History of unexplained or recurrent spontaneous Oral contraceptives or hormone replacement Sepsis (< 1 month) Serious lung disease, including pneumonia (< 1 month) Abnormal pulmonary function Acute myocardial infarction Congestive heart failure (< 1 month) History of inflammatory bowel disease Medical patient at bed rest Age 61-74 Arthroscopic surgery Major open surgery (> 45 min) Laparoscopic surgery (> 45 min) Malignancy Confined to bed (> 72 hours) Immobilizing plaster cast Central venous access Age >= 75 History of VTE Family history of VTE Factor V Leiden Prothrombin [id number] Lupus anticoagulant Anticardiolipin antibodies Elevated serum homocysteine Heparin-induced thrombocytopenia Other congenital or acquired thrombophilia Stroke (< 1 month) Elective arthroplasty Hip, pelvis, or leg fracture Acute spinal cord injury (< 1 month) Prophylaxis Regimen: Total Risk Factor Score Risk Level Prophylaxis Regimen 0-1 Low Early ambulation 2 Moderate Order ONE of the following: *Sequential Compression Device (SCD) *Heparin 5000 units SQ BID 3-4 Higher Order ONE of the following medications: *Heparin 5000 units SQ TID *Enoxaparin/Lovenox 40 mg SQ daily (WT < 150 kg, CrCl > 30 mL/min) *Enoxaparin/Lovenox 30 mg SQ daily (WT < 150 kg, CrCl > 10-29 mL/min) *Enoxaparin/Lovenox 30 mg SQ BID (WT < 150 kg, CrCl > 30 mL/min) AND/OR *Sequential Compression Device (SCD) 5 or more Highest Order ONE of the following medications: *Heparin 5000 units SQ TID (Preferred with Epidurals) *Enoxaparin/Lovenox 40 mg SQ daily (WT < 150 kg, CrCl > 30 mL/min) *Enoxaparin/Lovenox 30 mg SQ daily (WT < 150 kg, CrCl > 10-29 mL/min) *Enoxaparin/Lovenox 30 mg SQ BID (WT < 150 kg, CrCl > 30 mL/min) AND *Sequential Compression Device (SCD) Assessment and Plan - Assessment (1) C. difficile colitis Code(s): A04.72 - Enterocolitis due to Clostridium difficile, not specified as recurrent Status: Acute (2) UTI (urinary tract infection) Code(s): N39.0 - Urinary tract infection, site not specified Status: Acute (3) Atrial fibrillation Code(s): I48.91 - Unspecified atrial fibrillation Status: Chronic (4) Acute on chronic kidney failure Code(s): N17.9 - Acute kidney failure, unspecified; N18.9 - Chronic kidney disease, unspecified Status: Acute (5) History of bladder cancer Code(s): Z85.51 - Personal history of malignant neoplasm of bladder Status: Chronic (6) Anemia in chronic kidney disease (CKD) Code(s): N18.9 - Chronic kidney disease, unspecified; D63.1 - Anemia in chronic kidney disease Status: Chronic (7) Nephrostomy status Code(s): Z93.6 - Other artificial openings of urinary tract status Status: Chronic (8) Altered mental status Code(s): R41.82 - Altered mental status, unspecified Status: Acute (9) Seizures Code(s): R56.9 - Unspecified convulsions Status: Acute - Plan This is a 78-year-old CM with PMHx of Multidrug-resistant UTI Pseudomonas/VRE, Hx of subarachnoid hemorrhage with residual right parietal attenuation on CAT scan, A.Fib on chronic apixaban, HTN, HLD, Hx of obstructive nephrostomy/ urostomy stone status post percutaneous nephrostomy tubes still in place, bladder/prostate cancer s/p sx now with urostomy, and currently with C. Difficile. Patient being currently managed for AMS with possible Seizure req. intubation, UTI, and Acute on chronic kidney injury. Patient now extubated and stable in ICU, we have been consulted for medical mgmt, HD#4 1. Neuro/Psych Seizure, new onset Hx of subarachnoid hemorrhage/subdural hematoma? Right parietal decreased attenuation noted Acute toxic metabolic encephalopathy, resolved CT brain revealed decreased diffusion right parietal lobe region. MRI brain revealed no acute intracranial findings. Decreased area of perfusion in the right parietal lobe region. EEG no signs of epileptic activity. Seizure precautions Continue levetiracetam 500 mg IV twice daily Neuro consulted today to assist with mgmt 2. Cardiovascular Atrial fibrillation with rapid ventricular response Essential hypertension Hyperlipidemia Rate controlled but tachy and hypertensive, starting Carvedilol today EKG revealed A. fib with RVR. No signs of ST elevation. Elevated troponin on admission likely type II demand ischemia secondary to A. fib with RVR Denies CP 3. Acute respiratory failure secondary to altered mental status/Hx of COPD now on room air, extubated on 06/18 Incentive spirometry while awake Cont. Duonebs 4. C. Difficile Colitis Advance diet as tolerated per speech therapy s/p Zerbaxa Cont. Vanc and Pilocarpine C. Diff ordered on 06/19 ID consulted, appreciate assistance with mgmt Reccs per ID on 06/19 Hx recurrent C diff cont Vancomycin KUB if cont to have abd pain/tenderness or findings on KUB will get CT A/P chk c.diff 5. Acute on Chronic Kidney Injury Hx of bilateral nephrostomy secondary to obstructive process/urethral/stones Patient has bilateral nephrostomy tubes in place Nephrology consulted today for any recommendations Monitor urine output from nephrostomy tubes bilaterally Cr 1.87 from 1.84 (baseline 1.7) Accurate I's and O's Recheck CMP in AM Starting 1/2NS on 100ml/hr today 6. Heme: Chronic apixaban use due to A. Fib Macrocytic anemia Thrombocytopenia Hgb 7.6 today from 8.2, Plt 127 Continue apixaban 2.5 mg twice daily Monitor CBC daily 7. ID UTI, Shawanda Hx of branch resistant pseudomonas aeruginosa urinary tract infection Hx of VRE in urine Urine Cx from 06/17, +[place]anda tropicalis (from urostomy) Started on Diflucan per ID on 06/19 Bld Cx from 06/17, Neg at 2 days x4 s/p Ceftolozane/tazobactam and Linezolid Reccs per ID on 06/19 Hx MDRO UTI - has lius PCN and urostomy CKD: GFR seems @ b/l UTI, fuguria complete Zerbaxa (stop date was scheduled today) cont Vancomycin 8. Sacral Pressure Ulcer PT evaluate and treat Wound care eval and tx Cont. Bactroban 9. Endo Hypernatremia Na 149 today, encourage free water intake s/p NS yesterday, wwitched to 1/2NS today Cont. to monitor 10. GI/DVT Prophylaxis: Cont. PPI Cont. SCD's/apixaban 11. Dispo: F/U Nephro and Neuro reccs, if stable will transfer to floor in AM Code Status: full Discussed Condition With: patient, RN
[2018-06-20] MEDS: Labetalol HCl Inj 100 MG/20 ML Vial IV.PUSH PRN ×2 (10:14→18:22)
[2018-06-20] MEDS ORDERED: Sod Chloride 0.9% Inj 1,000 ML IV.CONT SCH (10:30)
[2018-06-20] MEDS ORDERED: Sodium Chloride 0.45 % Inj 1,000 ML IV.CONT SCH (11:00)
[2018-06-20] MEDS: Carvedilol 6.25 MG Tablet PO SCH ×2 (11:22→20:19)
--- NOTE | 2018-06-20 12:14 | P.CONNEU ---
History of Present Illness Service: Neurology Consult date: 06/20/18 Reason for Consult: Seizure activity Primary Care Provider: [facility]ician [facility] Chief Complaint: Seizure/altered mental status History of Present Illness: 78-year-old male with PMHx of Multidrug-resistant UTI Pseudomonas/VRE, Hx of subarachnoid hemorrhage, A.Fib on Eliquis, HTN, HLD, Hx of obstructive nephrostomy/urostomy stone status post percutaneous nephrostomy tubes still in place, bladder/prostate cancer with urostomy, and currently with C. Difficile. He was brought from [facility] due to change in mental status. According to the chart, he was noted to have a "seizure-like" activity by EMS on the way to the hospital. This resolved without any intervention. Patient had another seizure and was more lethargic in the ED s/p intubation. He was started on Keppra. He denies any further seizure activity. He denies any hx of seizure. He denies hx of stroke. 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 Nurse states that he is now orient x 2 and has been stable. Review of Systems unobtainable due to mental status PMFSH - History History Provided By: Patient - Medical / Surgical Hx Neg / Unobtainable Medical Problems Denied: Unable to Obtain - Medical History Medical History: Medical History (Last Reviewed 06/20/18 @ 10:04 by Saskia Flood MD) Anticoagulant long-term use Chronic kidney disease, stage IV (severe) Essential hypertension History of MRSA infection Hyperlipidemia MDRO (multiple drug resistant organisms) resistance Onset Date: ~06/17/18 Nasal fracture Open left femoral fracture VRE carrier COPD (chronic obstructive pulmonary disease) H/O reduction of nasal fracture History of Clostridium difficile infection Kidney stones Nasal bones, closed fracture Prostate cancer Subdural hematoma UTI (urinary tract infection) Hypotension Intertrochanteric fracture of left hip Parotid mass - Surgical History Surgical History: Surgical History (Last Reviewed 06/20/18 @ 10:05 by Saskia Flood MD) History of parotidectomy History of urostomy Nephrostomy status - Family History Family History: Family History (Last Reviewed 06/20/18 @ 10:05 by Saskia Flood MD) Father Coronary artery disease Other Osteoarthritis - Tobacco History Second Hand Smoke Exposure: No Tobacco Use In Past 30 Days: No Smoking Status: Former smoker - Alcohol History How Often Do You Have a Drink Containing Alcohol: Never - Substance Use History Substance History: No History of Abuse - Travel History Recent Travel in the [place] Within the Last 8 Weeks: No Recent Travel Out of the Country Within the Last 8 Weeks: No - Immunization History Tetanus Immunization: Unsure Medications and Allergies Allergies Allergy/AdvReac Type Severity Reaction Status Date / Time crab Allergy Intermediate Rash Verified 05/30/18 18:33 Home Medications Medication Instructions Recorded Confirmed Type apixaban [Eliquis] 2.5 mg PO BID 05/15/18 06/17/18 History midodrine 5 mg PO TID 05/15/18 06/17/18 History pilocarpine HCl 5 mg PO BID 05/15/18 06/17/18 History Saccharomyces boulardii [Florastor] 250 mg PO BID 06/17/18 06/17/18 History Active Medications: Active Medications Acetaminophen (Tylenol) 650 mg PO Q6H PRN PRN Reason: FEVER Albuterol (Albuterol Neb (Prn)) 2.5 mg NEB Q2HR NEB PRN PRN Reason: SHORTNESS OF BREATH/WHEEZING Albuterol (Duoneb Neb (Marko)) 1 ampul NEB Q4HR NEB [facility] Last Admin: 06/20/18 11:17 Dose: 1 ampul Apixaban (Eliquis) 2.5 mg PO BID [facility] Last Admin: 06/20/18 07:59 Dose: 2.5 mg Artificial Tears (Refresh Tears 0.5% Opth Drops) 1 drop EACH EYE BID [facility] Last Admin: 06/20/18 08:01 Dose: 1 drop Carvedilol (Coreg) 6.25 mg PO BID [facility] Last Admin: 06/20/18 11:22 Dose: Not Given Chlorhexidine Gluconate (Peridex 0.12% Oral Kit) 15 ml OROPHARYNG BID@0800, 2000 [facility] Last Admin: 06/20/18 07:54 Dose: Not Given Chlorhexidine Gluconate (Chlorhexidine 2% Cloth) 3 pack TOPICAL DAILY@0400 [facility] Stop: 06/23/18 03:59 Last Admin: 06/20/18 03:13 Dose: 3 pack Chlorhexidine Gluconate (Chlorhexidine 2% Cloth) 3 pack TOPICAL DAILY@0400 PRN PRN Reason: Extra cloth needed Stop: 10/26/18 03:59 Dextrose (D50w Vial) 50 ml IV.PUSH UNSCH PRN PRN Reason: PER HYPOGLYCEMIA PROTOCOL Dronabinol (Marinol) 2.5 mg PO AC LUNCH [facility] Last Admin: 06/20/18 11:23 Dose: Not Given Dronabinol (Marinol) 2.5 mg PO AC BREAKFAST [facility] Last Admin: 06/20/18 07:54 Dose: 2.5 mg Fluconazole (Diflucan) 100 mg PO DAILY [facility] Last Admin: 06/20/18 07:59 Dose: 100 mg Glucagon (Glucagon Inj) 1 mg OTHER PRN PRN PRN Reason: for Hypoglycemia Protocol Sodium Chloride (Ns Inj) 1,000 mls @ 0 mls/hr IV.SIG .Q0M [facility] Last Infusion: 06/19/18 13:38 Dose: 0 mls/hr Levetiracetam 500 mg/ Sodium (Chloride) 105 mls @ 400 mls/hr IV.SIG Q12H [facility] Last Infusion: 06/20/18 10:09 Dose: Infused Sodium Chloride (Ns Inj) 500 mls @ 0 mls/hr IV.SIG BOLUS MARKO Sodium Chloride (1/2 Normal Saline Inj) 1,000 mls @ 100 mls/hr IV.CONT .Q10H MARKO Insulin Aspart (Novolog Insulin Correctional Sugar Inj) 0 unit SQ Q6HR [facility]; Protocol Last Admin: 06/20/18 11:22 Dose: Not Given Labetalol HCl (Trandate Inj) 10 mg IV.PUSH Q1H PRN PRN Reason: Sbp>165, Dbp>90, Hr>65 Last Admin: 06/20/18 10:14 Dose: 10 mg Lactobacillus Acidophilus (Lactinex) 1 tab PO BID [facility] Last Admin: 06/20/18 07:59 Dose: 1 tab Lansoprazole (Prevacid Solutab) 30 mg NG/OG DAILY [facility] Last Admin: 06/20/18 08:00 Dose: 30 mg Miscellaneous Medication () 1 each OROPHARYNG 0000,0400,1200,1600 [facility] Last Admin: 06/20/18 11:19 Dose: Not Given Multivitamins (Theragran) 1 tab PO DAILY [facility] Last Admin: 06/20/18 07:59 Dose: 1 tab Mupirocin (Bactroban 2% Nasal Oint) 1 applicatio EACH NARE BID [facility] Last Admin: 06/20/18 07:59 Dose: 1 applicatio Nitroglycerin (Nitro-Bid 2% Oint) 2 inch TOPICAL Q6HR PRN PRN Reason: Sbp>165, Dbp>90 Pom: (Ceftolozane- Tazobactam [Zerbaxa] 750 Mg) 0 each PO Q8H [facility] Pilocarpine HCl (Salagen) 5 mg PO BID [facility] Last Admin: 06/20/18 07:59 Dose: 5 mg Sodium Chloride (Ns Flush) 2 ml IV.FLUSH BID [facility] Last Admin: 06/20/18 08:00 Dose: 2 ml Sodium Chloride (Ns Flush) 2 ml IV.FLUSH PRN PRN PRN Reason: FLUSH AFTER USING IV ACCESS Vancomycin HCl (Vancomycin Po) 125 mg PO Q6HR [facility]; Taper Stop: 08/29/18 11:01 Last Admin: 06/20/18 11:19 Dose: 125 mg Exam Vital signs: Vital Signs 06/19/18 13:00 06/19/18 14:00 06/19/18 15:00 Temperature Pulse Rate 114 H 124 H 117 H Respiratory Rate 23 20 24 Blood Pressure 132/90 149/84 H 126/92 H Pulse Oximetry 99 97 100 06/19/18 16:00 06/19/18 17:00 06/19/18 18:00 Temperature 98.0 F Pulse Rate 127 H 138 H 122 H Respiratory Rate 21 24 20 Blood Pressure 137/85 100/77 108/77 Pulse Oximetry 99 85 L 97 06/19/18 19:00 06/19/18 19:46 06/19/18 20:00 Temperature 97.7 F Pulse Rate 134 H 116 H 135 H Respiratory Rate 21 22 20 Blood Pressure 122/72 129/92 H Pulse Oximetry 92 L 100 95 06/19/18 21:00 06/19/18 22:00 06/19/18 23:00 Temperature Pulse Rate 120 H 133 H 124 H Respiratory Rate 20 20 19 Blood Pressure 132/84 119/87 132/93 H Pulse Oximetry 96 97 99 06/19/18 23:14 06/20/18 00:00 06/20/18 01:00 Temperature 98.1 F Pulse Rate 102 H 144 H 121 H Respiratory Rate 20 19 18 Blood Pressure 136/74 121/78 Pulse Oximetry 98 99 06/20/18 02:00 06/20/18 03:00 06/20/18 04:00 Temperature 98.2 F Pulse Rate 120 H 115 H 125 H Respiratory Rate 19 19 24 Blood Pressure 118/78 118/81 135/89 Pulse Oximetry 99 98 98 06/20/18 07:00 06/20/18 07:22 06/20/18 08:00 Temperature 97.5 F L Pulse Rate 119 H 133 H 118 H Respiratory Rate 19 22 Blood Pressure 133/98 H 179/98 H Pulse Oximetry 99 98 99 06/20/18 09:00 06/20/18 10:00 06/20/18 11:00 Temperature Pulse Rate 117 H 130 H 78 Respiratory Rate 18 21 19 Blood Pressure 123/78 140/69 102/61 Pulse Oximetry 100 99 99 06/20/18 11:16 06/20/18 11:19 Temperature Pulse Rate 97 H 77 Respiratory Rate 18 19 Blood Pressure 103/70 Pulse Oximetry 99 Intake & Output 06/19/18 06/20/18 06/20/18 18:59 06:59 18:59 Intake Total 1030 / 1030 585 / 585 105 / 105 Output Total 1250 / 1250 450 / 450 300 / 300 Balance -220 / -220 135 / 135 -195 / -195 Intake: IV 890 / 890 105 / 105 105 / 105 NS Inj 1,000 ML @ 84 mls/hr IV. 585 / 585 CONT .[id number] MARKO Rx#:[id number] Zerbaxa Inj 375 MG In NS Inj 200 / 200 100 ML @ 100 mls/hr IV.SIG Q8H MARKO Rx#:[id number] Keppra Inj 500 MG In NS Inj 100 105 / 105 105 / 105 105 / 105 ML @ 400 mls/hr IV.SIG Q12H MARKO Rx#:[id number] Oral 140 / 140 480 / 480 Output: Urine Amount (Stoma) 1250 / 1250 450 / 450 300 / 300 Continent Urostomy 50 / 50 Nephrostomy Tube Left 650 / 650 150 / 150 100 / 100 Nephrostomy Tube Right 550 / 550 300 / 300 200 / 200 Other: Date of Last Bowel Movement 06/18/18 06/18/18 06/18/18 - Routine Neurological Exam irreg rhythm, no bruit Alert, date: Jun 19, 2018, knows he is in [facility] (though states 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 no leg lag or drift, no focal deficit no tremor no ataxia sensory normal to light touch reflexes 2+ toes downgoing gait withheld speech normal Results - Labs CBC & Chem 7: 06/20/18 05:15 06/20/18 05:15 Labs: Laboratory Results - last 24 hr 06/19/18 06/19/18 06/20/18 13:25 17:29 00:37 WBC RBC Hgb Hct MCV MCH MCHC RDW Plt Count MPV Neut % (Auto) Lymph % (Auto) [place] % (Auto) Eos % (Auto) Baso % (Auto) Neut # (Auto) Lymph # (Auto) [place] # (Auto) Eos # (Auto) Baso # (Auto) WBC Differential Differential Comment Sodium Potassium Chloride Carbon Dioxide Anion Gap BUN Creatinine Estimated GFR POC Glucose 81 87 93 Random Glucose Calcium Phosphorus Magnesium Total Bilirubin AST ALT Alkaline Phosphatase Total Protein Albumin 06/20/18 06/20/18 06/20/18 05:15 05:15 06:07 WBC 4.7 RBC 2.30 L Hgb 7.6 L Hct 22.1 L MCV 96.2 MCH 33.2 MCHC 34.5 RDW 15.4 Plt Count 125 L MPV 7.9 Neut % (Auto) 60.6 Lymph % (Auto) 14.5 [place] % (Auto) 21.4 H Eos % (Auto) 2.8 Baso % (Auto) 0.7 Neut # (Auto) 2.9 Lymph # (Auto) 0.7 L [place] # (Auto) 1.0 H Eos # (Auto) 0.1 Baso # (Auto) 0.0 WBC Differential . Differential Comment Auto diff final Sodium 149 H Potassium 3.5 Chloride 117 H Carbon Dioxide 19.2 L Anion Gap 13 BUN 29 H Creatinine 1.87 H Estimated GFR 35 L POC Glucose 85 Random Glucose 75 Calcium 8.6 Phosphorus 3.3 Magnesium 1.7 Total Bilirubin 0.3 AST 19 ALT 25 Alkaline Phosphatase 92 Total Protein 6.7 Albumin 2.7 L 06/20/18 11:11 WBC RBC Hgb Hct MCV MCH MCHC RDW Plt Count MPV Neut % (Auto) Lymph % (Auto) [place] % (Auto) Eos % (Auto) Baso % (Auto) Neut # (Auto) Lymph # (Auto) [place] # (Auto) Eos # (Auto) Baso # (Auto) WBC Differential Differential Comment Sodium Potassium Chloride Carbon Dioxide Anion Gap BUN Creatinine Estimated GFR POC Glucose 121 H Random Glucose Calcium Phosphorus Magnesium Total Bilirubin AST ALT Alkaline Phosphatase Total Protein Albumin - Imaging Impressions Abdomen X-Ray 06/19/18 00:00 CONCLUSION: Nonspecific bowel gas pattern with some air-filled nondilated loops of small and large bowel. 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
[2018-06-20 14:05] LABS: Free T4 (Free Thyroxine) 1.01 ng/dL (0.76-1.46); Thyroid Stimulating Hormone 0.716 uIU/mL (0.358-3.740); Vitamin B12 788 pg/mL (193-986)
--- NOTE | 2018-06-20 14:46 | MR ---
EXAM DATE: 06/20/2018 1:44 PM EDT AGE/SEX: 78 years / Male INDICATIONS: Seizures. Altered mental status. CLINICAL DATA: This is the patient's initial encounter. Patient reports that signs and symptoms have been present for 2 days and indicates a pain score of 4/10. MEDICAL/SURGICAL HISTORY: Hypertension. Chronic obstructive pulmonary disease. Carcinoma, pro static. Kidney disease stage 4, Kidney stones, Subdural hematoma, Prior stroke . Nephrostomy, Parot idectomy, Urostomy. COMPARISON: [facility], MR HEAD W/O CONTRAST, 06/18/2018. . TECHNIQUE: 3D [id number]-zzauac MRA was performed. Source images, multiplanar STS MIP, and 3D volum e MIP reconstructions were reviewed. FINDINGS: There is excellent visualization of the major intracranial arteries out to the second-order branch ve ssels. There is no evidence for aneurysm, vessel truncation or stenosis, and no evidence for vascula r malformation. There is mild atherosclerotic changes involving distal branches bilaterally particula rly of the middle cerebral arteries. CONCLUSION: 1. Mild atherosclerotic changes of small vessel branches, otherwise unremarkable. Electronically signed by: Melissa Suarez MD 06/20/2018 2:45 PM EDT
--- NOTE | 2018-06-20 16:42 | P.PNWCN ---
Wound Care Nurse Consult Additional information: Attempted to see patient at around 1430 today for wound assessment, patient is off the floor at MRI
--- NOTE | 2018-06-20 17:42 | P.CONNP ---
<KristieDalia - Last Filed: 06/20/18 17:23> History of Present Illness Service: Nephrology Consult date: 06/20/18 Requesting Physician: Baldomero Reid Reason for Consult: UTI, nephrostomy tube Primary Care Provider: [facility] Chief Complaint: Seizure/altered mental status History of Present Illness: Patient is a 78-year-old male with past medical history of Multidrug-resistant UTI Pseudomonas/VRE, Hx of subarachnoid hemorrhage with residual right parietal attenuation on CAT scan, A.Fib on chronic apixaban, HTN, HLD, Hx of obstructive nephrostomy/urostomy stone status post percutaneous nephrostomy tubes still in place, bladder/prostate cancer s/p sx now with urostomy, and currently with C. Difficile. Patient presented to [facility] from [facility] with altered mental status. Per records, patient in EMS ambulance noted to have a "seizure- like" activity. This resolved without any intervention. Nephrology is consulted patient has urostomy and percutaneous nephrostomy tube. Creatinine is at baseline at 1.87. Patient denies any shortness of breath, chest pain, nausea, or vomiting. PMFSH - History History Provided By: Patient - Medical / Surgical Hx Neg / Unobtainable Medical Problems Denied: Unable to Obtain - Medical History Medical History: Medical History (Last Reviewed 06/20/18 @ 10:04 by Saskia Flood MD) Anticoagulant long-term use Chronic kidney disease, stage IV (severe) Essential hypertension History of MRSA infection Hyperlipidemia MDRO (multiple drug resistant organisms) resistance Onset Date: ~06/17/18 Nasal fracture Open left femoral fracture VRE carrier COPD (chronic obstructive pulmonary disease) H/O reduction of nasal fracture History of Clostridium difficile infection Kidney stones Nasal bones, closed fracture Prostate cancer Subdural hematoma UTI (urinary tract infection) Hypotension Intertrochanteric fracture of left hip Parotid mass - Surgical History Surgical History: Surgical History (Last Reviewed 06/20/18 @ 10:05 by Saskia Flood MD) History of parotidectomy History of urostomy Nephrostomy status - Family History Family History: Family History (Last Reviewed 06/20/18 @ 10:05 by Saskia Flood MD) Father Coronary artery disease Other Osteoarthritis - Tobacco History Second Hand Smoke Exposure: No Tobacco Use In Past 30 Days: No Smoking Status: Former smoker - Alcohol History How Often Do You Have a Drink Containing Alcohol: Never - Substance Use History Substance History: No History of Abuse - Travel History Recent Travel in the [place] Within the Last 8 Weeks: No Recent Travel Out of the Country Within the Last 8 Weeks: No - Immunization History Tetanus Immunization: Unsure Medications and Allergies Allergies Allergy/AdvReac Type Severity Reaction Status Date / Time crab Allergy Intermediate Rash Verified 05/30/18 18:33 Home Medications Medication Instructions Recorded Confirmed Type apixaban [Eliquis] 2.5 mg PO BID 05/15/18 06/17/18 History midodrine 5 mg PO TID 05/15/18 06/17/18 History pilocarpine HCl 5 mg PO BID 05/15/18 06/17/18 History Saccharomyces boulardii [Florastor] 250 mg PO BID 06/17/18 06/17/18 History Active Medications: Active Medications Acetaminophen (Tylenol) 650 mg PO Q6H PRN PRN Reason: FEVER Albuterol (Albuterol Neb (Prn)) 2.5 mg NEB Q2HR NEB PRN PRN Reason: SHORTNESS OF BREATH/WHEEZING Albuterol (Duoneb Neb (Marko)) 1 ampul NEB Q4HR NEB [facility] Last Admin: 06/20/18 15:54 Dose: 1 ampul Apixaban (Eliquis) 2.5 mg PO BID [facility] Last Admin: 06/20/18 07:59 Dose: 2.5 mg Artificial Tears (Refresh Tears 0.5% Opth Drops) 1 drop EACH EYE BID [facility] Last Admin: 06/20/18 08:01 Dose: 1 drop Carvedilol (Coreg) 6.25 mg PO BID [facility] Last Admin: 06/20/18 11:22 Dose: Not Given Chlorhexidine Gluconate (Peridex 0.12% Oral Kit) 15 ml OROPHARYNG BID@0800, 2000 [facility] Last Admin: 06/20/18 07:54 Dose: Not Given Chlorhexidine Gluconate (Chlorhexidine 2% Cloth) 3 pack TOPICAL DAILY@0400 [facility] Stop: 06/23/18 03:59 Last Admin: 06/20/18 03:13 Dose: 3 pack Chlorhexidine Gluconate (Chlorhexidine 2% Cloth) 3 pack TOPICAL DAILY@0400 PRN PRN Reason: Extra cloth needed Stop: 06/23/18 03:59 Dextrose (D50w Vial) 50 ml IV.PUSH UNSCH PRN PRN Reason: PER HYPOGLYCEMIA PROTOCOL Dronabinol (Marinol) 2.5 mg PO AC LUNCH [facility] Last Admin: 06/20/18 11:23 Dose: Not Given Dronabinol (Marinol) 2.5 mg PO AC BREAKFAST [facility] Last Admin: 06/20/18 07:54 Dose: 2.5 mg Fluconazole (Diflucan) 100 mg PO DAILY [facility] Last Admin: 06/20/18 07:59 Dose: 100 mg Glucagon (Glucagon Inj) 1 mg OTHER PRN PRN PRN Reason: for Hypoglycemia Protocol Sodium Chloride (Ns Inj) 1,000 mls @ 0 mls/hr IV.SIG .Q0M [facility] Last Infusion: 06/19/18 13:38 Dose: 0 mls/hr Levetiracetam 500 mg/ Sodium (Chloride) 105 mls @ 400 mls/hr IV.SIG Q12H [facility] Last Infusion: 06/20/18 10:09 Dose: Infused Sodium Chloride (Ns Inj) 500 mls @ 0 mls/hr IV.SIG BOLUS MARKO Sodium Chloride (1/2 Normal Saline Inj) 1,000 mls @ 100 mls/hr IV.CONT .Q10H [facility] Insulin Aspart (Novolog Insulin Correctional Sugar Inj) 0 unit SQ Q6HR [facility]; Protocol Last Admin: 06/20/18 11:22 Dose: Not Given Labetalol HCl (Trandate Inj) 10 mg IV.PUSH Q1H PRN PRN Reason: Sbp>165, Dbp>90, Hr>65 Last Admin: 06/20/18 10:14 Dose: 10 mg Lactobacillus Acidophilus (Lactinex) 1 tab PO BID [facility] Last Admin: 06/20/18 07:59 Dose: 1 tab Lansoprazole (Prevacid Solutab) 30 mg NG/OG DAILY [facility] Last Admin: 06/20/18 08:00 Dose: 30 mg Miscellaneous Medication () 1 each OROPHARYNG 0000,0400,1200,1600 [facility] Last Admin: 06/20/18 11:19 Dose: Not Given Multivitamins (Theragran) 1 tab PO DAILY [facility] Last Admin: 06/20/18 07:59 Dose: 1 tab Mupirocin (Bactroban 2% Nasal Oint) 1 applicatio EACH NARE BID [facility] Last Admin: 06/20/18 07:59 Dose: 1 applicatio Nitroglycerin (Nitro-Bid 2% Oint) 2 inch TOPICAL Q6HR PRN PRN Reason: Sbp>165, Dbp>90 Pom: (Ceftolozane- Tazobactam [Zerbaxa] 750 Mg) 0 each PO Q8H [facility] Pilocarpine HCl (Salagen) 5 mg PO BID [facility] Last Admin: 06/20/18 07:59 Dose: 5 mg Sodium Chloride (Ns Flush) 2 ml IV.FLUSH BID [facility] Last Admin: 06/20/18 08:00 Dose: 2 ml Sodium Chloride (Ns Flush) 2 ml IV.FLUSH PRN PRN PRN Reason: FLUSH AFTER USING IV ACCESS Vancomycin HCl (Vancomycin Po) 125 mg PO Q6HR [facility]; Taper Stop: 08/29/18 11:01 Last Admin: 06/20/18 11:19 Dose: 125 mg Exam Vital signs: Vital Signs 06/19/18 18:00 06/19/18 19:00 06/19/18 19:46 Temperature Pulse Rate 122 H 134 H 116 H Respiratory Rate 20 21 22 Blood Pressure 108/77 122/72 Pulse Oximetry 97 92 L 100 06/19/18 20:00 06/19/18 21:00 06/19/18 22:00 Temperature 97.7 F Pulse Rate 135 H 120 H 133 H Respiratory Rate 20 20 20 Blood Pressure 129/92 H 132/84 119/87 Pulse Oximetry 95 96 97 06/19/18 23:00 06/19/18 23:14 06/20/18 00:00 Temperature 98.1 F Pulse Rate 124 H 102 H 144 H Respiratory Rate 19 20 19 Blood Pressure 132/93 H 136/74 Pulse Oximetry 99 98 06/20/18 01:00 06/20/18 02:00 06/20/18 03:00 Temperature Pulse Rate 121 H 120 H 115 H Respiratory Rate 18 19 19 Blood Pressure 121/78 118/78 118/81 Pulse Oximetry 99 99 98 06/20/18 04:00 06/20/18 07:00 06/20/18 07:22 Temperature 98.2 F 97.5 F L Pulse Rate 125 H 119 H 133 H Respiratory Rate 24 19 Blood Pressure 135/89 133/98 H Pulse Oximetry 98 99 98 06/20/18 08:00 06/20/18 09:00 06/20/18 10:00 Temperature Pulse Rate 118 H 117 H 130 H Respiratory Rate 22 18 21 Blood Pressure 179/98 H 123/78 140/69 Pulse Oximetry 99 100 99 06/20/18 11:00 06/20/18 11:16 06/20/18 11:19 Temperature Pulse Rate 78 97 H 77 Respiratory Rate 19 18 19 Blood Pressure 102/61 103/70 Pulse Oximetry 99 99 06/20/18 12:00 06/20/18 13:00 06/20/18 15:54 Temperature Pulse Rate 86 80 87 Respiratory Rate 17 17 18 Blood Pressure 121/72 127/93 H Pulse Oximetry 100 97 Intake & Output 06/19/18 06/20/18 06/20/18 18:59 06:59 18:59 Intake Total 1030 / 1030 585 / 585 105 / 105 Output Total 1250 / 1250 450 / 450 300 / 300 Balance -220 / -220 135 / 135 -195 / -195 Intake: IV 890 / 890 105 / 105 105 / 105 NS Inj 1,000 ML @ 84 mls/hr IV. 585 / 585 CONT .[id number] MARKO Rx#:[id number] Zerbaxa Inj 375 MG In NS Inj 200 / 200 100 ML @ 100 mls/hr IV.SIG Q8H [facility] Rx#:[id number] Keppra Inj 500 MG In NS Inj 100 105 / 105 105 / 105 105 / 105 ML @ 400 mls/hr IV.SIG Q12H [facility] Rx#:[id number] Oral 140 / 140 480 / 480 Output: Urine Amount (Stoma) 1250 / 1250 450 / 450 300 / 300 Continent Urostomy 50 / 50 Nephrostomy Tube Left 650 / 650 150 / 150 100 / 100 Nephrostomy Tube Right 550 / 550 300 / 300 200 / 200 Other: Date of Last Bowel Movement 06/18/18 06/18/18 06/18/18 Narrative: GENERAL: Alert and oriented. SKIN: Warm and dry. NECK: Supple, trachea midline. No JVD or lymphadenopathy. CARDIOVASCULAR: Regular rate and rhythm without murmurs, gallops, or rubs. RESPIRATORY: Breath sounds equal bilaterally. No accessory muscle use. GASTROINTESTINAL: Abdomen soft, non-tender, nondistended. GENITOURINARY: Urostomy right lower quadrant light yellow urine. Nephrostomy tube with light hematuria. MUSCULOSKELETAL: No cyanosis, or edema. BACK: Nontender without obvious deformity. No CVA tenderness. Results - Lab Results 06/20/18 05:15 06/20/18 05:15 Most recent lab results ABG pH 7.29 (7.380-7.420) L* 06/17/18 11:04 ABG pCO2 36 mmHg (38-42) L 06/17/18 11:04 ABG pO2 172 mmHg (61-120) H 06/17/18 11:04 ABG HCO3 17 mmol/L (22-26) L 06/17/18 11:04 Calcium 8.6 mg/dL (8.5-10.1) 06/20/18 05:15 Phosphorus 3.3 mg/dL (2.5-4.9) 06/20/18 05:15 Magnesium 1.7 mg/dL (1.5-2.5) 06/20/18 05:15 Assessment and Plan - Assessment (1) Chronic kidney disease Code(s): N18.9 - Chronic kidney disease, unspecified Status: Acute Plan: Creatinine at 1.87 which has improved from admission creatinine of 2.75 Creatinine at approximately at baseline. Is followed by Dr. Gaona outpatient. Avoid nephrotoxins as possible Continue antibiotics renal dose as appropriate Will monitor urinary output and electrolytes. (2) Altered mental status Code(s): R41.82 - Altered mental status, unspecified Status: Acute Plan: Has improved. Neurology following (3) Seizures Code(s): R56.9 - Unspecified convulsions Status: Acute (4) C. difficile colitis Code(s): A04.72 - Enterocolitis due to Clostridium difficile, not specified as recurrent Status: Acute Plan: On vancomycin PO ID consulted and managing. (5) UTI (urinary tract infection) Code(s): N39.0 - Urinary tract infection, site not specified Status: Acute Plan: Urine culture positive for sid On Diflucan (6) Hypernatremia Code(s): E87.0 - Hyperosmolality and hypernatremia Status: Acute Plan: Sodium level increased at 149 On 1/2 NS will change to D5 1/4 NS. - Plan Dr. Gaona to see patient tomorrow. <Jumani,Samantha Q - Last Filed: 06/22/18 19:28> History of Present Illness Primary [facility] - Medical History Medical History: Medical History (Last Reviewed 06/22/18 @ 08:34 by Misty [employer], ENGINEERING TECHNICAL [employer]IST) Anticoagulant long-term use Chronic kidney disease, stage IV (severe) Essential hypertension History of MRSA infection Hyperlipidemia MDRO (multiple drug resistant organisms) resistance Onset Date: ~06/17/18 Nasal fracture Open left femoral fracture VRE carrier COPD (chronic obstructive pulmonary disease) H/O reduction of nasal fracture History of Clostridium difficile infection Kidney stones Nasal bones, closed fracture Prostate cancer Subdural hematoma UTI (urinary tract infection) Hypotension Intertrochanteric fracture of left hip Parotid mass - Surgical History Surgical History: Surgical History (Last Reviewed 06/22/18 @ 08:21 by Dalia Walker) History of parotidectomy History of urostomy Nephrostomy status - Family History Family History: Family History (Last Reviewed 06/22/18 @ 08:21 by Dalia Walker) Father Coronary artery disease Other Osteoarthritis Medications and Allergies Active Medications: Active Medications Acetaminophen (Tylenol) 650 mg PO Q6H PRN PRN Reason: FEVER Albuterol (Albuterol Neb (Prn)) 2.5 mg NEB Q2HR NEB PRN PRN Reason: SHORTNESS OF BREATH/WHEEZING Apixaban (Eliquis) 2.5 mg PO BID [facility] Last Admin: 06/21/18 08:53 Dose: 2.5 mg Artificial Tears (Refresh Tears 0.5% Opth Drops) 1 drop EACH EYE BID [facility] Last Admin: 06/21/18 08:58 Dose: 1 drop Carvedilol (Coreg) 6.25 mg PO BID [facility] Last Admin: 06/21/18 08:53 Dose: 6.25 mg Chlorhexidine Gluconate (Peridex 0.12% Oral Kit) 15 ml OROPHARYNG BID@0800, 2000 [facility] Last Admin: 06/21/18 08:58 Dose: Not Given Chlorhexidine Gluconate (Chlorhexidine 2% Cloth) 3 pack TOPICAL DAILY@0400 [facility] Stop: 06/23/18 03:59 Last Admin: 06/21/18 03:54 Dose: Not Given Chlorhexidine Gluconate (Chlorhexidine 2% Cloth) 3 pack TOPICAL DAILY@0400 PRN PRN Reason: Extra cloth needed Stop: 06/23/18 03:59 Dronabinol (Marinol) 2.5 mg PO AC LUNCH [facility] Last Admin: 06/21/18 11:38 Dose: Not Given Fluconazole (Diflucan) 100 mg PO DAILY [facility] Last Admin: 06/21/18 08:54 Dose: 100 mg Levetiracetam 500 mg/ Sodium (Chloride) 105 mls @ 400 mls/hr IV.SIG Q12H [facility] Last Infusion: 06/21/18 09:54 Dose: Infused Labetalol HCl (Trandate Inj) 10 mg IV.PUSH Q1H PRN PRN Reason: Sbp>165, Dbp>90, Hr>65 Last Admin: 06/20/18 18:22 Dose: 10 mg Lactobacillus Acidophilus (Lactinex) 1 tab PO BID [facility] Last Admin: 06/21/18 08:53 Dose: 1 tab Miscellaneous Medication () 1 each OROPHARYNG 0000,0400,1200,1600 [facility] Last Admin: 06/21/18 16:24 Dose: Not Given Multivitamins (Theragran) 1 tab PO DAILY [facility] Last Admin: 06/21/18 08:53 Dose: 1 tab Nitroglycerin (Nitro-Bid 2% Oint) 2 inch TOPICAL Q6HR PRN PRN Reason: Sbp>165, Dbp>90 Pom: (Ceftolozane- Tazobactam [Zerbaxa] 750 Mg) 0 each PO Q8H [facility] Pilocarpine HCl (Salagen) 5 mg PO BID [facility] Last Admin: 06/21/18 10:44 Dose: 5 mg Sodium Chloride (Ns Flush) 2 ml IV.FLUSH BID [facility] Last Admin: 06/21/18 08:56 Dose: 2 ml Sodium Chloride (Ns Flush) 2 ml IV.FLUSH PRN PRN PRN Reason: FLUSH AFTER USING IV ACCESS Vancomycin HCl (Vancomycin Po) 125 mg PO Q6HR [facility]; Taper Stop: 08/29/18 11:01 Last Admin: 06/21/18 17:34 Dose: 125 mg Exam Vital signs: Vital Signs 06/20/18 20:00 06/20/18 21:00 06/20/18 22:51 Temperature 97.9 F 97.4 F L Pulse Rate 92 H 103 H 96 H Respiratory Rate 16 19 20 Blood Pressure 161/83 H 144/76 H 127/82 Pulse Oximetry 100 97 94 L 06/21/18 00:00 06/21/18 00:35 06/21/18 01:19 Temperature 97.5 F L Pulse Rate 95 H 73 Respiratory Rate 20 14 16 Blood Pressure 127/67 Pulse Oximetry 99 06/21/18 03:36 06/21/18 04:00 06/21/18 07:00 Temperature 97.7 F Pulse Rate 73 96 H 94 H Respiratory Rate 15 18 14 Blood Pressure 140/72 Pulse Oximetry 98 06/21/18 08:00 06/21/18 11:00 06/21/18 12:00 Temperature 97.6 F 97.4 F L Pulse Rate 93 H 95 H 104 H Respiratory Rate 20 14 18 Blood Pressure 125/70 143/85 H Pulse Oximetry 98 99 06/21/18 14:00 06/21/18 16:00 Temperature 97.4 F L 97.8 F Pulse Rate 104 H 99 H Respiratory Rate 18 18 Blood Pressure 143/85 H 134/90 Pulse Oximetry 99 99 Intake & Output 06/21/18 06/21/18 06/22/18 06:59 18:59 06:59 Intake Total 1105 / 1105 1105 / 1105 Output Total 575 / 575 2100 / 2100 Balance 530 / 530 -995 / -995 Weight 64.2 kg Intake: IV 1005 / 1005 1105 / 1105 D5W/1/4 NS Inj 1,000 ML @ 84 900 / 900 1000 / 1000 mls/hr IV.CONT .[id number] [facility] Rx# :[id number] Keppra Inj 500 MG In NS Inj 100 105 / 105 105 / 105 ML @ 400 mls/hr IV.SIG Q12H [facility] Rx#:[id number] Oral 100 / 100 Output: Urine 1175 / 1175 Urine Amount (Stoma) 575 / 575 925 / 925 Continent Urostomy 200 / 200 225 / 225 Nephrostomy Tube Left 150 / 150 450 / 450 Nephrostomy Tube Right 225 / 225 250 / 250 Other: Date of Last Bowel Movement 06/20/18 06/20/18 Results - Lab Results 06/22/18 04:00 06/22/18 04:00 Most recent lab results ABG pH 7.29 (7.380-7.420) L* 06/17/18 11:04 ABG pCO2 36 mmHg (38-42) L 06/17/18 11:04 ABG pO2 172 mmHg (61-120) H 06/17/18 11:04 ABG HCO3 17 mmol/L (22-26) L 06/17/18 11:04 Calcium 8.5 mg/dL (8.5-10.1) 06/21/18 05:10 Phosphorus 3.3 mg/dL (2.5-4.9) 06/20/18 05:15 Magnesium 1.7 mg/dL (1.5-2.5) 06/20/18 05:15 Assessment and Plan - Assessment (1) Chronic kidney disease Code(s): N18.9 - Chronic kidney disease, unspecified Status: Acute Plan: Patient seen and examine, agree with above. Patient has chronic kidney disease and develop SANDI. Creatinine is better, possible close to his baseline. Will ask Dr. Gaona to follow. (2) Altered mental status Code(s): R41.82 - Altered mental status, unspecified Status: Acute (3) Seizures Code(s): R56.9 - Unspecified convulsions Status: Acute (4) C. difficile colitis Code(s): A04.72 - Enterocolitis due to Clostridium difficile, not specified as recurrent Status: Acute (5) UTI (urinary tract infection) Code(s): N39.0 - Urinary tract infection, site not specified Status: Acute (6) Hypernatremia Code(s): E87.0 - Hyperosmolality and hypernatremia Status: Acute
[2018-06-20] MEDS: Dextrose 5%/NaCl 0.225% Inj 1,000 ML IV.CONT SCH (18:52)
[2018-06-21] MEDS: Oral Hygiene Kit OROPHARYNG SCH ×5 (00:12→23:54)
[2018-06-21] MEDS: Insulin NovoLOG Aspart Correctional Sugar Inj SQ SCH ×4 (00:12→20:00)
[2018-06-21] MEDS: Chlorhexidine Gluconate 2% 1 Pack (2 Cloths) TOPICAL SCH (03:54)
[2018-06-21] MEDS: Dextrose 5%/NaCl 0.225% Inj 1,000 ML IV.CONT SCH ×2 (05:06→17:33)
[2018-06-21 05:38] LABS: Baso % (Auto) 0.6 % (0.0-2.0); Eos # (Auto) 0.3 th/mm3 (0.0-0.4); Eos % (Auto) 8.5 % (0.0-4.0); Hematocrit 22.1 % (39.0-51.0); Hemoglobin 7.4 gm/dL (13.0-17.0); Lymph # (Auto) 0.8 th/mm3 (1.0-4.8); Lymph % (Auto) 20.9 % (9.0-44.0); Mean Corpuscular HGB Conc 33.5 % (32.0-36.0); Mean Corpuscular Hemoglobin 32.7 pg (27.0-34.0); Mean Corpuscular Volume 97.7 fL (80.0-100.0); Mean Platelet Volume 8.2 fL (7.0-11.0); Mono # (Auto) 0.7 th/mm3 (0.0-0.9); Mono % (Auto) 18.3 % (0.0-8.0); Neut # (Auto) 2.1 th/mm3 (1.8-7.7); Neut % (Auto) 51.7 % (16.0-70.0); Platelet Count 124 th/mm3 (150-450); Red Blood Count 2.26 mil/mm3 (4.50-5.90); Red Cell Distribution Width 15.6 % (11.6-17.2)
[2018-06-21 05:58] LABS: Alanine Aminotransferase 25 U/L (12-78); Albumin 2.4 g/dL (3.4-5.0); Anion Gap 8 meq/L (5-15); Aspartate Aminotransferase 16 U/L (15-37); Blood Urea Nitrogen 25 mg/dL (7-18); Calcium 8.5 mg/dL (8.5-10.1); Carbon Dioxide 22.5 meq/L (21.0-32.0); Chloride 115 meq/L (98-107); Glomerular Filtration Rate 37 mL/min (>89); Glucose,Random 104 mg/dL (74-106); Potassium 3.6 meq/L (3.5-5.1); Sodium 145 meq/L (136-145)
[2018-06-21 06:01] LABS: Alkaline Phosphatase 94 U/L (45-117); Total Protein 6.4 g/dL (6.4-8.2)
[2018-06-21] MEDS: Lactobacillus Acidophilus/L. Spores Tablet PO SCH ×2 (08:53→21:59)
[2018-06-21] MEDS: Carvedilol 6.25 MG Tablet PO SCH ×2 (08:53→21:59)
[2018-06-21] MEDS: DRONABINOL 2.5 MG CAPSULE PO SCH ×2 (08:54→11:38)
[2018-06-21] MEDS: Fluconazole 100 MG Tablet PO SCH (08:54)
[2018-06-21] MEDS: Mupirocin 2% Nasal Oint Topical Syringe EACH NARE SCH (08:56)
[2018-06-21] MEDS: Carboxymethylcellulose 0.5% Opth Drops 15 ML Bottle EACH EYE SCH ×2 (08:58→21:59)
[2018-06-21] MEDS: Chlorhexidine 0.12% Oral Kit 15 ML UDC OROPHARYNG SCH ×2 (08:58→22:00)
[2018-06-21] MEDS: Pilocarpine HCl 5 MG Tablet PO SCH ×2 (10:44→21:59)
--- NOTE | 2018-06-21 18:35 | P.PN ---
Subjective Interval history: Patient doing well, with no overnight events per RN. No concerns today. Patient reports that he is tolerating PO. Physical Exam Vital signs: Vital Signs 06/20/18 18:19 06/20/18 19:00 06/20/18 19:35 Temperature Pulse Rate 126 H 87 90 Respiratory Rate 27 H 16 17 Blood Pressure 145/95 H 146/111 H Pulse Oximetry 100 99 06/20/18 20:00 06/20/18 21:00 06/20/18 22:51 Temperature 97.9 F 97.4 F L Pulse Rate 92 H 103 H 96 H Respiratory Rate 16 19 20 Blood Pressure 161/83 H 144/76 H 127/82 Pulse Oximetry 100 97 94 L 06/21/18 00:00 06/21/18 00:35 06/21/18 01:19 Temperature 97.5 F L Pulse Rate 95 H 73 Respiratory Rate 20 14 16 Blood Pressure 127/67 Pulse Oximetry 99 06/21/18 03:36 06/21/18 04:00 06/21/18 07:00 Temperature 97.7 F Pulse Rate 73 96 H 94 H Respiratory Rate 15 18 14 Blood Pressure 140/72 Pulse Oximetry 98 06/21/18 08:00 06/21/18 11:00 06/21/18 12:00 Temperature 97.6 F 97.4 F L Pulse Rate 93 H 95 H 104 H Respiratory Rate 20 14 18 Blood Pressure 125/70 143/85 H Pulse Oximetry 98 99 06/21/18 14:00 06/21/18 16:00 Temperature 97.4 F L 97.8 F Pulse Rate 104 H 99 H Respiratory Rate 18 18 Blood Pressure 143/85 H 134/90 Pulse Oximetry 99 99 Intake & Output 06/20/18 06/21/18 06/21/18 18:59 06:59 18:59 Intake Total 905 / 905 1105 / 1105 1105 / 1105 Output Total 550 / 550 575 / 575 1175 / 1175 Balance 355 / 355 530 / 530 -70 / -70 Weight 64.2 kg Intake: IV 905 / 905 1005 / 1005 1105 / 1105 D5W/1/4 NS Inj 1,000 ML @ 84 900 / 900 1000 / 1000 mls/hr IV.CONT .[id number] [facility] Rx# :[id number] 1/2 Normal Saline Inj 1,000 ML 800 / 800 @ 100 mls/hr IV.CONT .Q10H [facility] Rx#:[id number] Keppra Inj 500 MG In NS Inj 100 105 / 105 105 / 105 105 / 105 ML @ 400 mls/hr IV.SIG Q12H [facility] Rx#:[id number] Oral 100 / 100 Output: Urine 1175 / 1175 Urine Amount (Stoma) 550 / 550 575 / 575 Continent Urostomy 200 / 200 Nephrostomy Tube Left 200 / 200 150 / 150 Nephrostomy Tube Right 350 / 350 225 / 225 Other: Date of Last Bowel Movement 06/18/18 06/20/18 06/20/18 Narrative: GENERAL: thin, male, resting in bed, in no acute distress SKIN: Warm and dry. 1x1cm, DTI - sacral HEENT: Atraumatic. Normocephalic. PERRLA. No scleral icterus. No injection or drainage. MOM. NECK: Trachea midline, on room air CARDIOVASCULAR: Tachycardic, S1, S2. No murmurs, rubs, gallops RESPIRATORY: CTAx2 GASTROINTESTINAL: Abdomen soft, non-tender, nondistended. Hepatic and splenic margins not palpable. MUSCULOSKELETAL: Extremities without clubbing, cyanosis, or edema. No obvious deformities. Patient has suprapubic catheter in place with muna urine, bilateral nephrostomy tubes in place with cloudy yellow output on L, serosanguineous on R. NEUROLOGICAL: AAOx3, no focal deficits. Motor grossly within normal limits. Normal speech. Results - Labs CBC & Chem 7: 06/21/18 05:10 06/21/18 05:10 Laboratory Results - last 24 hr 06/20/18 06/21/18 06/21/18 12:31 00:06 05:04 WBC RBC Hgb Hct MCV MCH MCHC RDW Plt Count MPV Neut % (Auto) Lymph % (Auto) [place] % (Auto) Eos % (Auto) Baso % (Auto) Neut # (Auto) Lymph # (Auto) [place] # (Auto) Eos # (Auto) Baso # (Auto) WBC Differential Differential Comment Sodium Potassium Chloride Carbon Dioxide Anion Gap BUN Creatinine Estimated GFR POC Glucose 110 121 H Random Glucose Calcium Total Bilirubin AST ALT Alkaline Phosphatase Total Protein Albumin Levetiracetam 45.3 06/21/18 06/21/18 06/21/18 05:10 05:10 12:35 WBC 4.0 RBC 2.26 L Hgb 7.4 L Hct 22.1 L MCV 97.7 MCH 32.7 MCHC 33.5 RDW 15.6 Plt Count 124 L MPV 8.2 Neut % (Auto) 51.7 Lymph % (Auto) 20.9 [place] % (Auto) 18.3 H Eos % (Auto) 8.5 H Baso % (Auto) 0.6 Neut # (Auto) 2.1 Lymph # (Auto) 0.8 L [place] # (Auto) 0.7 Eos # (Auto) 0.3 Baso # (Auto) 0.0 WBC Differential . Differential Comment Auto diff final Sodium 145 Potassium 3.6 Chloride 115 H Carbon Dioxide 22.5 Anion Gap 8 BUN 25 H Creatinine 1.78 H Estimated GFR 37 L POC Glucose 131 H Random Glucose 104 Calcium 8.5 Total Bilirubin 0.3 AST 16 ALT 25 Alkaline Phosphatase 94 Total Protein 6.4 Albumin 2.4 L Levetiracetam 06/21/18 17:28 WBC RBC Hgb Hct MCV MCH MCHC RDW Plt Count MPV Neut % (Auto) Lymph % (Auto) [place] % (Auto) Eos % (Auto) Baso % (Auto) Neut # (Auto) Lymph # (Auto) [place] # (Auto) Eos # (Auto) Baso # (Auto) WBC Differential Differential Comment Sodium Potassium Chloride Carbon Dioxide Anion Gap BUN Creatinine Estimated GFR POC Glucose 129 H Random Glucose Calcium Total Bilirubin AST ALT Alkaline Phosphatase Total Protein Albumin Levetiracetam Microbiology 06/17/18 09:03 Blood - Peripheral Aerobic Blood Culture - Preliminary No growth in 4 days 06/17/18 09:03 Blood - Peripheral Anaerobic Blood Culture - Preliminary No growth in 4 days 06/17/18 09:00 Blood - Peripheral Aerobic Blood Culture - Preliminary No growth in 4 days 06/17/18 09:00 Blood - Peripheral Anaerobic Blood Culture - Preliminary No growth in 4 days Assessment and Plan - Assessment (1) C. difficile colitis Code(s): A04.72 - Enterocolitis due to Clostridium difficile, not specified as recurrent Status: Acute (2) UTI (urinary tract infection) Code(s): N39.0 - Urinary tract infection, site not specified Status: Acute (3) Atrial fibrillation Code(s): I48.91 - Unspecified atrial fibrillation Status: Chronic (4) Acute on chronic kidney failure Code(s): N17.9 - Acute kidney failure, unspecified; N18.9 - Chronic kidney disease, unspecified Status: Acute (5) History of bladder cancer Code(s): Z85.51 - Personal history of malignant neoplasm of bladder Status: Chronic (6) Anemia in chronic kidney disease (CKD) Code(s): N18.9 - Chronic kidney disease, unspecified; D63.1 - Anemia in chronic kidney disease Status: Chronic (7) Nephrostomy status Code(s): Z93.6 - Other artificial openings of urinary tract status Status: Chronic (8) Altered mental status Code(s): R41.82 - Altered mental status, unspecified Status: Acute (9) Seizures Code(s): R56.9 - Unspecified convulsions Status: Acute - Plan This is a 78-year-old CM with PMHx of Multidrug-resistant UTI Pseudomonas/VRE, Hx of subarachnoid hemorrhage with residual right parietal attenuation on CAT scan, A.Fib on chronic apixaban, HTN, HLD, Hx of obstructive nephrostomy/ urostomy stone status post percutaneous nephrostomy tubes still in place, bladder/prostate cancer s/p sx now with urostomy, and currently with C. Difficile. Patient being currently managed for AMS with possible Seizure req. intubation, UTI, and Acute on chronic kidney injury. Patient now extubated and stable, we have been consulted for medical mgmt, HD#5 1. Neuro/Psych Seizure, new onset Hx of subarachnoid hemorrhage/subdural hematoma? Right parietal decreased attenuation noted Acute toxic metabolic encephalopathy, resolved CT brain revealed decreased diffusion right parietal lobe region. MRI brain revealed no acute intracranial findings. Decreased area of perfusion in the right parietal lobe region. MRA head revealed Mild atherosclerotic changes of small vessel branches, otherwise unremarkable. EEG no signs of epileptic activity. 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 Cardiovascular Atrial fibrillation with rapid ventricular response Essential hypertension Hyperlipidemia Rate controlled but tachy and hypertensive, cont. Carvedilol and Eliquis EKG revealed A. fib with RVR. No signs of ST elevation. Elevated troponin on admission likely type II demand ischemia secondary to A. fib with RVR Denies CP 3. Acute respiratory failure secondary to altered mental status/Hx of COPD now on room air, extubated on 06/18 Incentive spirometry while awake Cont. Duonebs 4. C. Difficile Colitis Advance diet as tolerated per speech therapy s/p Zerbaxa Cont. Vanc and [place] C. Diff ordered ID consulted, appreciate assistance with mgmt Reccs per ID on 06/19 Hx recurrent C diff cont Vancomycin KUB if cont to have abd pain/tenderness or findings on KUB will get CT A/P chk c.diff 5. Acute on Chronic Kidney Injury, resolved Hx of bilateral nephrostomy secondary to obstructive process/urethral/stones Patient has bilateral nephrostomy tubes in place Nephrology consulted appreciate assistance with management Monitor urine output from nephrostomy tubes bilaterally Cr 1.78 from 1.87 (baseline 1.7) Accurate I's and O's Recheck CMP in AM Will stop IVF's as Creatinine at baseline Reccs Per Nephro on 06/20 Creatinine at 1.87 which has improved from admission creatinine of 2.75 Creatinine at approximately at baseline. Is followed by Dr. Gaona outpatient. Avoid nephrotoxins as possible Continue antibiotics renal dose as appropriate Will monitor urinary output and electrolytes. 6. Heme: Chronic apixaban use due to A. Fib Macrocytic anemia Thrombocytopenia Hgb 7.4 today from 7.6, Plt 124 Continue Apixaban 2.5 mg twice daily Monitor CBC daily 7. 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 Sacral Pressure Ulcer PT evaluate and treat Wound care eval and tx Cont. Bactroban 9. Endo Hypernatremia, resolved Na 145 today from 149 s/p D5 1/ NS F/U Na in AM 10. GI/DVT Prophylaxis: Cont. PPI Cont. SCD's/apixaban 11. Dispo: Creatinine at baseline. Continue antibiotics for UTI. Discharge planning based on neuro recommendations. Code Status: full Discussed Condition With: patient, RN
[2018-06-22] MEDS: Chlorhexidine Gluconate 2% 1 Pack (2 Cloths) TOPICAL SCH (03:46)
[2018-06-22] MEDS: Oral Hygiene Kit OROPHARYNG SCH ×3 (03:47→16:10)
[2018-06-22 04:10] LABS: Baso % (Auto) 0.7 % (0.0-2.0); Eos # (Auto) 0.4 th/mm3 (0.0-0.4); Eos % (Auto) 9.2 % (0.0-4.0); Hematocrit 21.8 % (39.0-51.0); Hemoglobin 7.4 gm/dL (13.0-17.0); Lymph # (Auto) 1.4 th/mm3 (1.0-4.8); Lymph % (Auto) 31.7 % (9.0-44.0); Mean Corpuscular HGB Conc 33.9 % (32.0-36.0); Mean Corpuscular Hemoglobin 32.6 pg (27.0-34.0); Mean Platelet Volume 7.8 fL (7.0-11.0); Mono # (Auto) 0.5 th/mm3 (0.0-0.9); Mono % (Auto) 12.5 % (0.0-8.0); Neut % (Auto) 45.9 % (16.0-70.0); Platelet Count 153 th/mm3 (150-450); Red Blood Count 2.27 mil/mm3 (4.50-5.90); Red Cell Distribution Width 15.8 % (11.6-17.2); White Blood Count 4.3 th/mm3 (4.0-11.0)
[2018-06-22 04:58] LABS: Alanine Aminotransferase 33 U/L (12-78); Albumin 2.3 g/dL (3.4-5.0); Alkaline Phosphatase 96 U/L (45-117); Anion Gap 10 meq/L (5-15); Aspartate Aminotransferase 32 U/L (15-37); Blood Urea Nitrogen 20 mg/dL (7-18); Carbon Dioxide 21.5 meq/L (21.0-32.0); Chloride 112 meq/L (98-107); Glomerular Filtration Rate 37 mL/min (>89); Glucose,Random 86 mg/dL (74-106); Potassium 3.5 meq/L (3.5-5.1); Sodium 143 meq/L (136-145); Total Protein 5.9 g/dL (6.4-8.2)
[2018-06-22] MEDS: Fluconazole 100 MG Tablet PO SCH (09:06)
[2018-06-22] MEDS: Pilocarpine HCl 5 MG Tablet PO SCH ×2 (09:06→20:45)
[2018-06-22] MEDS: Lactobacillus Acidophilus/L. Spores Tablet PO SCH ×2 (09:07→20:45)
--- NOTE | 2018-06-22 11:18 | P.PN ---
Subjective Interval history: no sz's reported more alert Physical Exam Vital signs: Vital Signs 06/21/18 12:00 06/21/18 14:00 06/21/18 16:00 Temperature 97.4 F L 97.4 F L 97.8 F Pulse Rate 104 H 104 H 99 H Respiratory Rate 18 18 18 Blood Pressure 143/85 H 143/85 H 134/90 Pulse Oximetry 99 99 99 06/21/18 20:00 06/21/18 21:10 06/22/18 00:00 Temperature 98.1 F 98.2 F Pulse Rate 99 H 87 Respiratory Rate 18 18 Blood Pressure 134/70 149/73 H Pulse Oximetry 98 93 L 97 06/22/18 04:00 06/22/18 08:00 Temperature 97.8 F 98.1 F Pulse Rate 103 H 87 Respiratory Rate 18 16 Blood Pressure 108/57 L 101/55 L Pulse Oximetry 96 Intake & Output 06/21/18 06/22/18 06/22/18 18:59 06:59 18:59 Intake Total 1105 / 1105 239 / 239 Output Total 2100 / 2100 900 / 900 Balance -995 / -995 -661 / -661 Weight 64.5 kg Intake: IV 1105 / 1105 239 / 239 D5W/1/4 NS Inj 1,000 ML @ 84 1000 / 1000 134 / 134 mls/hr IV.CONT .[id number] [facility] Rx# :[id number] Keppra Inj 500 MG In NS Inj 100 105 / 105 105 / 105 ML @ 400 mls/hr IV.SIG Q12H [facility] Rx#:[id number] Output: Urine 1175 / 1175 Urine Amount (Stoma) 925 / 925 900 / 900 Continent Urostomy 225 / 225 450 / 450 Nephrostomy Tube Left 450 / 450 200 / 200 Nephrostomy Tube Right 250 / 250 250 / 250 Other: Date of Last Bowel Movement 06/20/18 06/21/18 Narrative: awake alert oriented fluent perrla motor intact gait not tested Results - Labs CBC & Chem 7: 06/22/18 04:00 06/22/18 04:00 Laboratory Results - last 24 hr 06/20/18 06/20/18 06/21/18 12:31 12:31 05:10 WBC RBC Hgb Hct MCV MCH MCHC RDW Plt Count MPV Neut % (Auto) Lymph % (Auto) [place] % (Auto) Eos % (Auto) Baso % (Auto) Neut # (Auto) Lymph # (Auto) [place] # (Auto) Eos # (Auto) Baso # (Auto) WBC Differential Differential Comment Sodium Potassium Chloride Carbon Dioxide Anion Gap BUN Creatinine Estimated GFR POC Glucose Random Glucose Hemoglobin A1c 5.0 Calcium Total Bilirubin AST ALT Alkaline Phosphatase Total Protein Albumin Thiamine 128 Levetiracetam 45.3 06/21/18 06/21/18 06/22/18 12:35 17:28 04:00 WBC 4.3 RBC 2.27 L Hgb 7.4 L Hct 21.8 L MCV 96.0 MCH 32.6 MCHC 33.9 RDW 15.8 Plt Count 153 MPV 7.8 Neut % (Auto) 45.9 Lymph % (Auto) 31.7 [place] % (Auto) 12.5 H Eos % (Auto) 9.2 H Baso % (Auto) 0.7 Neut # (Auto) 2.0 Lymph # (Auto) 1.4 [place] # (Auto) 0.5 Eos # (Auto) 0.4 Baso # (Auto) 0.0 WBC Differential . Differential Comment Auto diff final Sodium Potassium Chloride Carbon Dioxide Anion Gap BUN Creatinine Estimated GFR POC Glucose 131 H 129 H Random Glucose Hemoglobin A1c Calcium Total Bilirubin AST ALT Alkaline Phosphatase Total Protein Albumin Thiamine Levetiracetam 06/22/18 04:00 WBC RBC Hgb Hct MCV MCH MCHC RDW Plt Count MPV Neut % (Auto) Lymph % (Auto) [place] % (Auto) Eos % (Auto) Baso % (Auto) Neut # (Auto) Lymph # (Auto) [place] # (Auto) Eos # (Auto) Baso # (Auto) WBC Differential Differential Comment Sodium 143 Potassium 3.5 Chloride 112 H Carbon Dioxide 21.5 Anion Gap 10 BUN 20 H Creatinine 1.80 H Estimated GFR 37 L POC Glucose Random Glucose 86 Hemoglobin A1c Calcium 8.0 L Total Bilirubin 0.3 AST 32 ALT 33 Alkaline Phosphatase 96 Total Protein 5.9 L Albumin 2.3 L Thiamine Levetiracetam Microbiology 06/17/18 09:03 Blood - Peripheral Aerobic Blood Culture - Final No growth in 5 days 06/17/18 09:03 Blood - Peripheral Anaerobic Blood Culture - Final No growth in 5 days 06/17/18 09:00 Blood - Peripheral Aerobic Blood Culture - Final No growth in 5 days 06/17/18 09:00 Blood - Peripheral Anaerobic Blood Culture - Final No growth in 5 days keppra level 45.3 - Imaging mri no acute findings old cva mra cow ats changes small vessels Assessment and Plan - Assessment (1) Altered mental status Code(s): R41.82 - Altered mental status, unspecified Status: Acute (2) Seizures Code(s): R56.9 - Unspecified convulsions Status: Acute - Plan cont keppra cont abx oob with PT no other neuro testing at this time eeg no sz only encephalopathy
[2018-06-22] MEDS: Chlorhexidine 0.12% Oral Kit 15 ML UDC OROPHARYNG SCH ×2 (12:04→20:46)
[2018-06-22] MEDS: Carvedilol 6.25 MG Tablet PO SCH ×2 (12:04→20:45)
[2018-06-22] MEDS: Carboxymethylcellulose 0.5% Opth Drops 15 ML Bottle EACH EYE SCH ×2 (12:05→20:45)
--- NOTE | 2018-06-22 12:19 | P.PNIM ---
Subjective Interval history: Patient reports he is feeling okay today. No further seizure activities. Physical Exam Vital signs: Vital Signs 06/21/18 14:00 06/21/18 16:00 06/21/18 20:00 Temperature 97.4 F L 97.8 F 98.1 F Pulse Rate 104 H 99 H 99 H Respiratory Rate 18 18 18 Blood Pressure 143/85 H 134/90 134/70 Pulse Oximetry 99 99 98 06/21/18 21:10 06/22/18 00:00 06/22/18 04:00 Temperature 98.2 F 97.8 F Pulse Rate 87 103 H Respiratory Rate 18 18 Blood Pressure 149/73 H 108/57 L Pulse Oximetry 93 L 97 06/22/18 08:00 Temperature 98.1 F Pulse Rate 87 Respiratory Rate 16 Blood Pressure 101/55 L Pulse Oximetry 96 Intake & Output 06/21/18 06/22/18 06/22/18 18:59 06:59 18:59 Intake Total 1105 / 1105 239 / 239 Output Total 2100 / 2100 900 / 900 Balance -995 / -995 -661 / -661 Weight 64.5 kg Intake: IV 1105 / 1105 239 / 239 D5W/1/4 NS Inj 1,000 ML @ 84 1000 / 1000 134 / 134 mls/hr IV.CONT .[id number] [facility] Rx# :[id number] Keppra Inj 500 MG In NS Inj 100 105 / 105 105 / 105 ML @ 400 mls/hr IV.SIG Q12H [facility] Rx#:[id number] Output: Urine 1175 / 1175 Urine Amount (Stoma) 925 / 925 900 / 900 Continent Urostomy 225 / 225 450 / 450 Nephrostomy Tube Left 450 / 450 200 / 200 Nephrostomy Tube Right 250 / 250 250 / 250 Other: Date of Last Bowel Movement 06/20/18 06/21/18 Narrative: GENERAL: Elderly male in no acute distress. CARDIOVASCULAR: Normal rate and regular rhythm without murmurs, gallops, or rubs. RESPIRATORY: Good respiratory efforts. Breath sounds equal and clear to auscultation bilaterally. GASTROINTESTINAL: Abdomen soft, non-tender, non-distended. Normal active bowel sounds : Suprapubic catheter and bilateral nephrostomy tubes draining clear urine. MUSCULOSKELETAL: Extremities without cyanosis, or edema. NEURO: Alert & Oriented x4 to person, place, time, situation. Moves all ext x4 PSYCH: Appropriate mood and affect. Results - Labs CBC & Chem 7: 06/22/18 04:00 06/22/18 04:00 Laboratory Results - last 24 hr 06/20/18 06/20/18 06/21/18 12:31 12:31 05:10 WBC RBC Hgb Hct MCV MCH MCHC RDW Plt Count MPV Neut % (Auto) Lymph % (Auto) [place] % (Auto) Eos % (Auto) Baso % (Auto) Neut # (Auto) Lymph # (Auto) [place] # (Auto) Eos # (Auto) Baso # (Auto) WBC Differential Differential Comment Sodium Potassium Chloride Carbon Dioxide Anion Gap BUN Creatinine Estimated GFR POC Glucose Random Glucose Hemoglobin A1c 5.0 Calcium Total Bilirubin AST ALT Alkaline Phosphatase Total Protein Albumin Thiamine 128 Levetiracetam 45.3 06/21/18 06/21/18 06/22/18 12:35 17:28 04:00 WBC 4.3 RBC 2.27 L Hgb 7.4 L Hct 21.8 L MCV 96.0 MCH 32.6 MCHC 33.9 RDW 15.8 Plt Count 153 MPV 7.8 Neut % (Auto) 45.9 Lymph % (Auto) 31.7 [place] % (Auto) 12.5 H Eos % (Auto) 9.2 H Baso % (Auto) 0.7 Neut # (Auto) 2.0 Lymph # (Auto) 1.4 [place] # (Auto) 0.5 Eos # (Auto) 0.4 Baso # (Auto) 0.0 WBC Differential . Differential Comment Auto diff final Sodium Potassium Chloride Carbon Dioxide Anion Gap BUN Creatinine Estimated GFR POC Glucose 131 H 129 H Random Glucose Hemoglobin A1c Calcium Total Bilirubin AST ALT Alkaline Phosphatase Total Protein Albumin Thiamine Levetiracetam 06/22/18 04:00 WBC RBC Hgb Hct MCV MCH MCHC RDW Plt Count MPV Neut % (Auto) Lymph % (Auto) [place] % (Auto) Eos % (Auto) Baso % (Auto) Neut # (Auto) Lymph # (Auto) [place] # (Auto) Eos # (Auto) Baso # (Auto) WBC Differential Differential Comment Sodium 143 Potassium 3.5 Chloride 112 H Carbon Dioxide 21.5 Anion Gap 10 BUN 20 H Creatinine 1.80 H Estimated GFR 37 L POC Glucose Random Glucose 86 Hemoglobin A1c Calcium 8.0 L Total Bilirubin 0.3 AST 32 ALT 33 Alkaline Phosphatase 96 Total Protein 5.9 L Albumin 2.3 L Thiamine Levetiracetam Microbiology 06/17/18 09:03 Blood - Peripheral Aerobic Blood Culture - Final No growth in 5 days 06/17/18 09:03 Blood - Peripheral Anaerobic Blood Culture - Final No growth in 5 days 06/17/18 09:00 Blood - Peripheral Aerobic Blood Culture - Final No growth in 5 days 06/17/18 09:00 Blood - Peripheral Anaerobic Blood Culture - Final No growth in 5 days Assessment and Plan - Assessment (1) C. difficile colitis Code(s): A04.72 - Enterocolitis due to Clostridium difficile, not specified as recurrent Status: Acute (2) UTI (urinary tract infection) Code(s): N39.0 - Urinary tract infection, site not specified Status: Acute (3) Atrial fibrillation Code(s): I48.91 - Unspecified atrial fibrillation Status: Chronic (4) Acute on chronic kidney failure Code(s): N17.9 - Acute kidney failure, unspecified; N18.9 - Chronic kidney disease, unspecified Status: Acute (5) History of bladder cancer Code(s): Z85.51 - Personal history of malignant neoplasm of bladder Status: Chronic (6) Anemia in chronic kidney disease (CKD) Code(s): N18.9 - Chronic kidney disease, unspecified; D63.1 - Anemia in chronic kidney disease Status: Chronic (7) Nephrostomy status Code(s): Z93.6 - Other artificial openings of urinary tract status Status: Chronic (8) Altered mental status Code(s): R41.82 - Altered mental status, unspecified Status: Acute (9) Seizures Code(s): R56.9 - Unspecified convulsions Status: Acute - Plan 78-year-old CM with PMHx of Multidrug-resistant UTI Pseudomonas/VRE, Hx of subarachnoid hemorrhage with residual right parietal attenuation on CAT scan, A.Fib on chronic apixaban, HTN, HLD, Hx of obstructive nephrostomy/urostomy stone status post percutaneous nephrostomy tubes still in place, bladder/ prostate cancer s/p sx now with urostomy, and recurrent C. Difficile colitis. Patient being currently managed for AMS with possible Seizure req. intubation, UTI, and Acute on chronic kidney injury. Patient now extubated and stable. 1. Neuro/Psych Seizure, new onset Hx of subarachnoid hemorrhage/subdural hematoma? Right parietal decreased attenuation noted Acute toxic metabolic encephalopathy, resolved CT brain revealed decreased diffusion right parietal lobe region. MRI brain revealed no acute intracranial findings. Decreased area of perfusion in the right parietal lobe region. MRA head revealed Mild atherosclerotic changes of small vessel branches, otherwise unremarkable. EEG no signs of epileptic activity. Seizure precautions Appreciate neurology input. Continue Keppra. Change to oral. No further seizure activities. continue Eliquis for a-fib 2.Atrial fibrillation with rapid ventricular response Essential hypertension Hyperlipidemia Rate controlled. cont. Carvedilol and Eliquis Elevated troponin on admission likely type II demand ischemia secondary to A. fib with RVR Denies CP 3. Acute respiratory failure secondary to altered mental status/Hx of COPD now on room air, extubated on 06/18 Incentive spirometry while awake Cont. Duonebs 4. Recurrent C. Difficile Colitis Continue oral vancomycin ID following. C. difficile check per ID. 5. Acute on Chronic Kidney Injury, resolved Hx of bilateral nephrostomy secondary to obstructive process/urethral/stones Patient has bilateral nephrostomy tubes in place Nephrology consulted appreciate assistance with management Monitor urine output from nephrostomy tubes bilaterally Accurate I's and O's Renal functions at baseline. 6. Chronic apixaban use due to A. Fib Macrocytic anemia Thrombocytopenia H&H around 7.4 and not improving Continue Apixaban 2.5 mg twice daily Given chronic conditions above and poor cardiac reserve. We will give the patient 1 unit of PRBC. 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 Sacral Pressure Ulcer PT evaluate and treat Wound care eval and tx Cont. Bactroban 9. Hypernatremia, resolved 10. GI/DVT Prophylaxis: Cont. PPI Cont. SCD's/apixaban Discharge Planning: Plan for discharge tomorrow morning to SNF. Will discuss outpatient antibiotics recommendations with infectious disease.
[2018-06-22] MEDS: DRONABINOL 2.5 MG CAPSULE PO SCH (13:20)
[2018-06-22] MEDS ORDERED: Sodium Chlor 0.9% Inj 250 ML IV.SIG SCH (17:00)
--- NOTE | 2018-06-22 17:26 | P.PNNP ---
Subjective Interval history: patient was sitting on a chair. Appeared comfortable. Frail appearing. Physical Exam Vital signs: Vital Signs 06/21/18 20:00 06/21/18 21:10 06/22/18 00:00 Temperature 98.1 F 98.2 F Pulse Rate 99 H 87 Respiratory Rate 18 18 Blood Pressure 134/70 149/73 H Pulse Oximetry 98 93 L 97 06/22/18 04:00 06/22/18 08:00 06/22/18 12:00 Temperature 97.8 F 98.1 F 97.4 F L Pulse Rate 103 H 87 85 Respiratory Rate 18 16 16 Blood Pressure 108/57 L 101/55 L 109/66 Pulse Oximetry 96 98 06/22/18 16:00 Temperature Pulse Rate 75 Respiratory Rate 21 Blood Pressure 97/61 L Pulse Oximetry 96 Intake & Output 06/21/18 06/22/18 06/22/18 18:59 06:59 18:59 Intake Total 1105 / 1105 239 / 239 105 / 105 Output Total 2100 / 2100 900 / 900 Balance -995 / -995 -661 / -661 105 / 105 Weight 64.5 kg Intake: IV 1105 / 1105 239 / 239 105 / 105 D5W/1/4 NS Inj 1,000 ML @ 84 1000 / 1000 134 / 134 mls/hr IV.CONT .[id number] [facility] Rx# :[id number] Keppra Inj 500 MG In NS Inj 100 105 / 105 105 / 105 105 / 105 ML @ 400 mls/hr IV.SIG Q12H [facility] Rx#:[id number] Output: Urine 1175 / 1175 Urine Amount (Stoma) 925 / 925 900 / 900 Continent Urostomy 225 / 225 450 / 450 Nephrostomy Tube Left 450 / 450 200 / 200 Nephrostomy Tube Right 250 / 250 250 / 250 Other: Date of Last Bowel Movement 06/20/18 06/21/18 - Constitutional no acute distress, chronically ill appearing - Routine HEENT Exam Head: Present: normocephalic, atraumatic Eye: Present: EOMI, PERRL ENT: Present: mucous membranes moist - Routine Neck Exam Present: supple. Absent: JVD, carotid bruit, lymphadenopathy, thyromegaly - Routine Respiratory Exam Present: CTA bilaterally - Routine Cardiovascular Exam Present: RRR, S1, S2 - Routine Abdominal Exam Present: soft Comments: nephrostomy tubes Urostomy - Routine Neurological Exam Present: alert, CN II-XII intact Assessment and Plan - Assessment (1) Acute renal failure superimposed on stage 3 chronic kidney disease Code(s): N17.9 - Acute kidney failure, unspecified; N18.3 - Chronic kidney disease, stage 3 (moderate) Status: Acute Plan: renal function appears to be stable, improved, GFR now at baseline. Avoid nephrotoxic agents. Monitor urine output. (2) Altered mental status Code(s): R41.82 - Altered mental status, unspecified Status: Acute Plan: Has improved. Neurology following (3) Seizures Code(s): R56.9 - Unspecified convulsions Status: Acute (4) C. difficile colitis Code(s): A04.72 - Enterocolitis due to Clostridium difficile, not specified as recurrent Status: Acute Plan: On vancomycin PO ID consulted and managing. (5) UTI (urinary tract infection) Code(s): N39.0 - Urinary tract infection, site not specified Status: Acute Plan: Urine culture positive for sid On Diflucan (6) Hypernatremia Code(s): E87.0 - Hyperosmolality and hypernatremia Status: Acute Plan: improved.
[2018-06-22] MEDS: levETIRAcetam 500 MG Tablet PO SCH (20:45)
[2018-06-23] MEDS: Oral Hygiene Kit OROPHARYNG SCH ×2 (01:12→03:11)
[2018-06-23 03:01] LABS: Hematocrit 25.3 % (39.0-51.0); Hemoglobin 8.8 gm/dL (13.0-17.0); Mean Corpuscular HGB Conc 34.6 % (32.0-36.0); Mean Corpuscular Hemoglobin 32.3 pg (27.0-34.0); Mean Corpuscular Volume 93.2 fL (80.0-100.0); Platelet Count 168 th/mm3 (150-450); Red Blood Count 2.71 mil/mm3 (4.50-5.90); Red Cell Distribution Width 16.1 % (11.6-17.2); White Blood Count 4.1 th/mm3 (4.0-11.0)
[2018-06-23 03:21] LABS: Albumin 2.5 g/dL (3.4-5.0); Calcium 8.7 mg/dL (8.5-10.1); Potassium 3.6 meq/L (3.5-5.1)
[2018-06-23 05:08] VITALS: RESP 18
[2018-06-23 07:36] VITALS: BP 121/81; PULSE 95; TEMP 97.8; O2SAT 100
[2018-06-23] MEDS: Lactobacillus Acidophilus/L. Spores Tablet PO SCH (08:27)
[2018-06-23] MEDS: Pilocarpine HCl 5 MG Tablet PO SCH (08:27)
[2018-06-23] MEDS: levETIRAcetam 500 MG Tablet PO SCH (08:27)
[2018-06-23] MEDS: Fluconazole 100 MG Tablet PO SCH (08:28)
[2018-06-23] MEDS: Carvedilol 6.25 MG Tablet PO SCH (08:28)
[2018-06-23] MEDS: Carboxymethylcellulose 0.5% Opth Drops 15 ML Bottle EACH EYE SCH (08:29)
--- NOTE | 2018-06-23 08:36 | P.DS ---
Date of admission: 06/17/18 10:39 Primary care physician: [facility] Brief History from admission: This is a 78-year-old CM with PMHx of Multidrug-resistant UTI Pseudomonas/VRE, Hx of subarachnoid hemorrhage with residual right parietal attenuation on CAT scan, A.Fib on chronic apixaban, HTN, HLD, Hx of obstructive nephrostomy/ urostomy stone status post percutaneous nephrostomy tubes still in place, bladder/prostate cancer s/p sx now with urostomy, and currently with C. Difficile. Patient is also on pilocarpine for removal of parotid gland. Patient presented to [facility] from [facility] with altered mental status. Per records, patient in EMS ambulance noted to have a "seizure-like" activity. This resolved without any intervention. Patient had another seizure and was more lethargic in the ED s/p intubation. CT of the brain revealed decreased attenuation white matter right parietal lobe region. Patient now stable in ICU, we have been consulted for med mgmt. Patient this AM with no confusion, reports that he feels that he is at his baseline. Patient is tolerating PO, voiding with urotsomy, +diarrhea. DS: Diagnosis - Discharge Diagnosis (1) C. 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 (7) Nephrostomy status Status: Chronic (8) Altered mental status Status: Acute (9) Seizures Status: Acute DS: Medications - Discharge Medications Prescriptions: levetiracetam [Keppra] 500 mg PO BID #60 tab DS: Summary - Time Spent with Patient Total time spent providing and/or coordinating discharge services: Exam Vital signs: Vital Signs 06/22/18 12:00 06/22/18 16:00 06/22/18 20:00 Temperature 97.4 F L 98.1 F Pulse Rate 85 75 88 Respiratory Rate 16 21 18 Blood Pressure 109/66 97/61 L 143/91 H Pulse Oximetry 98 96 99 06/22/18 22:47 06/22/18 23:06 06/23/18 00:00 Temperature 97.9 F 98.0 F 98.3 F Pulse Rate 89 88 82 Respiratory Rate 20 20 16 Blood Pressure 128/87 132/83 135/93 H Pulse Oximetry 97 98 97 06/23/18 00:09 06/23/18 03:40 06/23/18 05:07 Temperature 98.2 F Pulse Rate 77 Respiratory Rate 17 18 Blood Pressure 119/75 Pulse Oximetry 97 97 06/23/18 07:35 Temperature 97.8 F Pulse Rate 95 H Respiratory Rate 18 Blood Pressure 121/81 Pulse Oximetry 100 Intake & Output 06/22/18 06/23/18 06/23/18 18:59 06:59 18:59 Intake Total 105 / 105 75 / 75 Output Total 750 / 750 300 / 300 Balance 105 / 105 -675 / -675 -300 / -300 Weight 62.3 kg Intake: IV 105 / 105 75 / 75 NS Inj 250 ML @ 15 mls/hr IV. 75 / 75 [facility] Rx#:[id number] Keppra Inj 500 MG In NS Inj 100 105 / 105 ML @ 400 mls/hr IV.SIG Q12H [facility] Rx#:[id number] Intake (Blood Product) Amt 0 / 0 Rbc As-3 Leukoreduced Unit 0 / 0 [id number] Output: Urine Amount (Stoma) 750 / 750 300 / 300 Continent Urostomy 150 / 150 100 / 100 Nephrostomy Tube Left 300 / 300 100 / 100 Nephrostomy Tube Right 300 / 300 100 / 100 Other: Date of Last Bowel Movement 06/22/18 06/22/18 Results Labs on day of discharge: Labs from last 24 hours 06/23/18 06/23/18 06/22/18 02:45 02:45 21:12 WBC 4.1 RBC 2.71 L Hgb 8.8 L Hct 25.3 L MCV 93.2 MCH 32.3 MCHC 34.6 RDW 16.1 Plt Count 168 MPV 8.0 Sodium 144 Potassium 3.6 Chloride 113 H Carbon Dioxide 23.0 Anion Gap 8 BUN 23 H Creatinine 1.89 H Estimated GFR 35 L Random Glucose 90 Calcium 8.7 Phosphorus 3.0 Albumin 2.5 L Vitamin B6 Stl C.difficile DNA Amp St C. diff Tox Epid 027 Blood Type A Positive Antibody Screen Negative MTS Gel Crossmatch See Detail 06/22/18 06/20/18 15:21 12:31 WBC RBC Hgb Hct MCV MCH MCHC RDW Plt Count MPV Sodium Potassium Chloride Carbon Dioxide Anion Gap BUN Creatinine Estimated GFR Random Glucose Calcium Phosphorus Albumin Vitamin B6 3.5 Stl C.difficile DNA Amp Negative St C. diff Tox Epid 027 Negative Blood Type Antibody Screen MTS Gel Crossmatch - Impressions ITS Impressions Head CT 06/17/18 09:00 CONCLUSION: 1. No acute hemorrhage or mass effect. 2. Area of decreased attenuation involving the white matter of the right parietal lobe characteristic of an area of remote infarction. 3. Moderate atrophic change. . Chest X-Ray 06/17/18 10:33 CONCLUSION: 1. Interval intubation and placement of nasogastric tube. The side port of the NG tube is near the gastroesophageal junction and could be advanced. 2. No acute cardiopulmonary disease. Head MRI 06/18/18 00:00 CONCLUSION: 1. Motion degraded examination. 2. 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 3. Moderate cerebral atrophy with prominent periventricular ischemic white matter demyelination. 4. No acute infarction or hemorrhage. Abdomen X-Ray 06/19/18 00:00 CONCLUSION: Nonspecific bowel gas pattern with some air-filled nondilated loops of small and large bowel. Head MRA 06/20/18 00:00 CONCLUSION: 1. Mild atherosclerotic changes of small vessel branches, otherwise unremarkable. Discharge Plan - Discharge Disposition Patient Disposition: Discharge to SNF - Discharge Condition Condition: Stable - Discharge Order Discharge Orders: Discharge Order (Routine); Ordered 06/23/18 Ordered By: Rudolph Saldaña - Discharge Details Anticipated Discharge Date: 06/17/18 - Physicians Team Primary Care Provider: [facility] Attending Provider: Rudolph Saldaña Other Providers: Patsy Ramos MD ; Della Rocha MD ; Nati De Leon MD ; Marilee Rich MD ; [facility],[place]
[2018-06-23] MEDS: Chlorhexidine 0.12% Oral Kit 15 ML UDC OROPHARYNG SCH (11:49)
== END 2018-06-23 10:53 ==
LOC: NEPE 08:47 → NEDA 10:39 → HIMC 11:40 → N05 06-20 22:35
PROVIDERS: ADMIT Family Medicine; ATTEND Family Medicine

== ENCOUNTER 2018-07-19 03:06 | Observation (INO) ==
[2018-07-19] MEDS ORDERED: Sodium Chlor 0.9% Inj 500 ML IV.SIG ONE ×2 (03:25→05:38)
--- NOTE | 2018-07-19 03:48 | XR ---
EXAM DATE: 07/19/2018 3:46 AM EST AGE/SEX: 78 years / Male INDICATIONS: Short of breath. CLINICAL DATA: This is the patient's initial encounter. Patient reports that signs and symptoms have been present for 1 day and indicates a pain score of 0/10. MEDICAL/SURGICAL HISTORY: . Hypercholesterolemia. Atrial fibrillation. Bladder cancer. Parotid mass. . Chemotherapy. Radiation therapy. Parotid surgery. Bladder surgery. COMPARISON: [facility] [place], CHEST 1V SINGLE AP, 06/17/2018. . FINDINGS: Single AP view of the chest. The lungs are clear. Cardiomediastinal silhouette within nor mal limits. No evidence of pleural effusion or pneumothorax. CONCLUSION: No acute cardiopulmonary disease identified. Electronically signed by: El Rene MD 07/19/2018 3:47 AM EST
[2018-07-19 03:54] LABS: Baso % (Auto) 0.8 % (0.0-2.0); Eos # (Auto) 0.3 th/mm3 (0.0-0.4); Eos % (Auto) 5.4 % (0.0-4.0); Hematocrit 24.9 % (39.0-51.0); Hemoglobin 8.3 gm/dL (13.0-17.0); Lymph # (Auto) 1.2 th/mm3 (1.0-4.8); Lymph % (Auto) 25.3 % (9.0-44.0); Mean Corpuscular HGB Conc 33.3 % (32.0-36.0); Mean Corpuscular Hemoglobin 31.8 pg (27.0-34.0); Mean Corpuscular Volume 95.6 fL (80.0-100.0); Mean Platelet Volume 8.9 fL (7.0-11.0); Mono # (Auto) 0.9 th/mm3 (0.0-0.9); Mono % (Auto) 18.9 % (0.0-8.0); Neut # (Auto) 2.4 th/mm3 (1.8-7.7); Neut % (Auto) 49.6 % (16.0-70.0); Platelet Count 123 th/mm3 (150-450); White Blood Count 4.8 th/mm3 (4.0-11.0)
[2018-07-19 04:07] LABS: Activated Partial Thrombo Time 33.3 sec (23.4-31.7); Prothrombin Time 10.2 sec (9.8-11.6)
[2018-07-19 04:12] LABS: Alanine Aminotransferase 41 U/L (12-78); Albumin 2.6 g/dL (3.4-5.0); Anion Gap 7 meq/L (5-15); Aspartate Aminotransferase 25 U/L (15-37); Blood Urea Nitrogen 64 mg/dL (7-18); Calcium 8.6 mg/dL (8.5-10.1); Carbon Dioxide 23.5 meq/L (21.0-32.0); Chloride 111 meq/L (98-107); Glomerular Filtration Rate 30 mL/min (>89); Glucose,Random 90 mg/dL (74-106); Lipase 267 U/L (73-393); Magnesium 1.8 mg/dL (1.5-2.5); Potassium 5.4 meq/L (3.5-5.1); Sodium 141 meq/L (136-145)
[2018-07-19 04:16] LABS: Alkaline Phosphatase 133 U/L (45-117); Total Protein 6.4 g/dL (6.4-8.2)
[2018-07-19 04:20] LABS: Creatine Kinase 29 U/L (39-308)
--- NOTE | 2018-07-19 04:20 | ED ---
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 The patient is currently a resident at the alf where this was noticed. The patient arrives awake and alert. The patient is pleasant and conversive. He is unsure how long the nephrostomy tube is been in place or why it was placed. He reports that he believes that it was placed 2 months ago. He denies having any recent fevers. He reports having pain along the right flank. He denies having any nausea or vomiting. He reports that he has had diarrhea, however he is unsure how many times per day or how long this is been going on. The patient denies having any chest pain, chest pressure, or shortness of breath. He denies having any abdominal pain. The patient denies having any neurologic symptoms. Related Data Home Medications Medication Instructions Recorded Confirmed pilocarpine HCl 5 mg PO BID 05/15/18 07/19/18 acetaminophen 650 mg PO Q4H PRN 07/10/18 07/19/18 Previous Rx's Medication Instructions Recorded multivitamin with folic acid 1 tab PO DAILY tab 05/10/18 [Thera] dronabinol 2.5 mg PO AC LUNCH #30 cap 06/09/18 dronabinol [Marinol] 2.5 mg PO AC BREAKFAST #30 cap 06/09/18 ipratropium-albuterol 1 amp NEB Q4HR NEB PRN ml 06/09/18 lactulose 30 ml PO DAILY PRN ml 06/09/18 carvedilol [Coreg] 6.25 mg PO BID tab 06/23/18 levetiracetam [Keppra] 500 mg PO BID #60 tab 06/23/18 Allergies Allergy/AdvReac Type Severity Reaction Status Date / Time crab Allergy Intermediate Rash Verified 07/10/18 09:16 Review of Systems ROS: all other systems reviewed are negative [facility] Medical History Medical History Anticoagulant long-term use (Acute) COPD (chronic obstructive pulmonary disease) (Acute) Chronic kidney disease, stage IV (severe) (Acute) Essential hypertension (Acute) H/O reduction of nasal fracture (Acute) History of Clostridium difficile infection (Acute) History of MRSA infection (Acute) Hyperlipidemia (Acute) Kidney stones (Acute) MDRO (multiple drug resistant organisms) resistance (Acute ~06/17/18) Nasal bones, closed fracture (Acute) Nasal fracture (Acute) Open left femoral fracture (Acute) Prostate cancer (Acute) Subdural hematoma (Acute) UTI (urinary tract infection) (Acute) 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) Hypotension (Chronic) Intertrochanteric fracture of left hip (Chronic) Parotid mass (Chronic) Surgical History Surgical History History of parotidectomy (Acute) History of urostomy (Acute) Hx of nephrostomy (Acute) Nephrostomy status (Acute) Family History Family History Father Coronary artery disease Other Osteoarthritis Social History Social History Substance History: No History of Abuse Second Hand Smoke Exposure: No Smoking Status: Former smoker How Often Do You Have a Drink Containing Alcohol: Monthly or less Recent Travel in [facility] within the Last 8 Weeks: No Recent Out of Country Travel within the Last 8 Weeks: No Immunization History Tetanus Immunization: <5 Years Exam Const General: cooperative, no acute distress and well developed Nutritional Appearance: well nourished Orientation: alert, awake, oriented to person, oriented to place and not oriented to time [facility] Head: normocephalic and atraumatic Nose: no nasal discharge and no epistaxis Mouth: moist mucous membranes Throat: posterior oropharynx normal and uvula midline Eyes Sclera: normal sclerae Pupils: PERRL Neck Neck: no meningeal signs, trachea midline and no JVD Resp Effort & Inspection: no use of accessory muscles Auscultation: clear to auscultation bilaterally Cardio Rate: regular rate Rhythm: abnormal rhythm irregularly irregular Heart Sounds: no gallops, no murmurs and no rubs GI Inspection: non-distended Palpation: soft, no hepatosplenomegaly, no guarding, not rigid and nontender Auscultation: normal bowel sounds Back/Spine/Pelvis Back: CVA tenderness (Reported on the right side.) and other Skin General: dry skin (warm) Neuro General: alert, awake, oriented (To person and place.) and other (Grossly nonfocal.) Speech: speech normal Motor: no movement abnormalities noted Extrem General: normal to inspection (2+ pulses in all 4 extremities.), no calf tenderness, no clubbing, no cyanosis and no edema Psych Mood: congruent mood Affect: normal affect Judgment: judgment good Course Initial Documented Vital Signs Temperature 97.5 F L 07/19/18 03:11 Pulse Rate 80 07/19/18 03:11 Respiratory Rate 22 07/19/18 03:11 Blood Pressure 84/55 L 07/19/18 03:11 Pulse Oximetry 100 07/19/18 03:11 Last Documented Vital Signs Temperature 97.5 F L 07/19/18 03:11 Pulse Rate 76 07/19/18 05:33 Respiratory Rate 16 07/19/18 05:33 Blood Pressure 84/55 L 07/19/18 05:33 Pulse Oximetry 100 07/19/18 05:33 Medical Decision Making [facility] Narrative Medical decision making narrative: During the course of the patient's emergency department visit, the patient's history, examination, and differential diagnosis were reviewed with the patient. The patient was placed on a telemetry monitor with oximetry and frequent blood pressure monitoring. The patient had IV access obtained and blood work sent for analysis. Diagnostic evaluation was started regarding the nephrostomy tube dislodgment and possible sepsis as the patient arrives with a blood pressure of 84/55. The patient on further questioning reports that his blood pressure has been low. The patient was initially provided normal saline at 500 mL bolus x1. The patient's diagnostic studies are remarkable for a white count of 4.8, hemoglobin 8.3 which is compared to his prior hemoglobins and is stable, platelets 123 which is also compared to his prior platelet levels and he has a history of thrombocytopenia, monocytes 18.9., PT 10.2, PTT 33.3, chemistry is remarkable for a potassium of 5.4, chloride 111, BUN is 64, creatinine 2.15 which is increased compared to his prior levels of renal insufficiency, lactic acid is 0.5. Urinalysis shows signs of infection with a positive nitrate. The patient was given a second normal saline 500 mL. The patient was given Zosyn 3.[address] scan of the abdomen and pelvis shows a right-sided nephrostomy tube that is retracted with the distal catheter seen in the chest wall superficial to the ribs, left-sided nephrostomy tube no longer seen. Distal abdominal aortic aneurysm that is unchanged at 3.8 cm. The patient's case including history, pertinent physical examination findings, and laboratory studies were discussed with Dr. Villa. It was agreed that the patient would be admitted to the hospitalist service. The patient's results were discussed with the patient, including the plan of care. I explained that further testing and/ or monitoring is indicated based on the patient's history, examination, and/ or laboratory findings. Therefore, I recommended admission for additional evaluation. The patient expressed understanding and was agreeable with this plan. The patient was admitted to the hospital in guarded condition and sent to a bed under the care of the [facility] service. Medical Screen Exam Complete: Yes Emergency Medical Condition: Yes Differential Diagnosis Differential Diagnosis: Urosepsis, versus dislodged left catheter, versus bilateral nephrostomy tube dislodgment Medical Records Medical records reviewed: Yes I reviewed the patient's medical records. Lab Data Lab results reviewed: Yes I reviewed the patient's lab results. Result diagrams: 07/19/18 03:41 07/19/18 03:41 Lab Results 07/19/18 07/19/18 07/19/18 Range/Units 03:41 03:41 03:41 WBC 4.8 (4.0-11.0) th/mm3 RBC 2.60 L (4.50-5.90) mil/mm3 Hgb 8.3 L (13.0-17.0) gm/dL Hct 24.9 L (39.0-51.0) % MCV 95.6 (80.0-100.0) fL MCH 31.8 (27.0-34.0) pg MCHC 33.3 (32.0-36.0) % RDW 15.0 (11.6-17.2) % Plt Count 123 L (150-450) th/mm3 MPV 8.9 (7.0-11.0) fL Neut % (Auto) 49.6 (16.0-70.0) % Lymph % (Auto) 25.3 (9.0-44.0) % [place] % (Auto) 18.9 H (0.0-8.0) % Eos % (Auto) 5.4 H (0.0-4.0) % Baso % (Auto) 0.8 (0.0-2.0) % Neut # (Auto) 2.4 (1.8-7.7) th/mm3 Lymph # (Auto) 1.2 (1.0-4.8) th/mm3 [place] # (Auto) 0.9 (0.0-0.9) th/mm3 Eos # (Auto) 0.3 (0.0-0.4) th/mm3 Baso # (Auto) 0.0 (0.0-0.2) th/mm3 WBC Differential . Differential Comment Auto diff final PT 10.2 (9.8-11.6) sec INR 1.0 Ratio APTT 33.3 H (23.4-31.7) sec Sodium 141 (136-145) meq/L Potassium 5.4 H (3.5-5.1) meq/L Chloride 111 H (98-107) meq/L Carbon Dioxide 23.5 (21.0-32.0) meq/L Anion Gap 7 (5-15) meq/L BUN 64 H (7-18) mg/dL Creatinine 2.15 H (0.60-1.30) mg/dL Estimated GFR 30 L (>89) mL/min Random Glucose 90 (74-106) mg/dL Lactic Acid (0.4-2.0) mmol/L Calcium 8.6 (8.5-10.1) mg/dL Magnesium 1.8 (1.5-2.5) mg/dL Total Bilirubin 0.2 (0.2-1.0) mg/dL AST 25 (15-37) U/L ALT 41 (12-78) U/L Alkaline Phosphatase 133 H (45-117) U/L Total Creatine Kinase 29 L (39-308) U/L Troponin I Less than 0.02 L (0.02-0.05) ng/mL Total Protein 6.4 (6.4-8.2) g/dL Albumin 2.6 L (3.4-5.0) g/dL Lipase 267 (73-393) U/L Urine Color (Yellw/Straw) Urine Clarity (Clear) Urine pH (5.0-8.5) Ur Specific [place] (1.002-1.035) Urine Protein (Neg-Trace) mg/dL Urine Glucose (UA) (Negative) mg/dL Urine Ketones (Negative) mg/dL Urine Occult Blood (Negative) Urine Nitrate (Negative) Urine Bilirubin (Negative) Urine Urobilinogen (Less than 2) mg/dL Ur Leukocyte Esterase (Negative) Urine RBC (0-3) /hpf Urine WBC (0-5) /hpf Ur Squamous Epith Cells (0-5) /hpf Amorphous Sediment (None) /hpf Urine Bacteria (None) /hpf Urine Yeast (None) /hpf Micro UA Comment Ur Microscopic Review Urine Culture Comments 07/19/18 07/19/18 Range/Units 03:41 05:05 WBC (4.0-11.0) th/mm3 RBC (4.50-5.90) mil/mm3 Hgb (13.0-17.0) gm/dL Hct (39.0-51.0) % MCV (80.0-100.0) fL MCH (27.0-34.0) pg MCHC (32.0-36.0) % RDW (11.6-17.2) % Plt Count (150-450) th/mm3 MPV (7.0-11.0) fL Neut % (Auto) (16.0-70.0) % Lymph % (Auto) (9.0-44.0) % [place] % (Auto) (0.0-8.0) % Eos % (Auto) (0.0-4.0) % Baso % (Auto) (0.0-2.0) % Neut # (Auto) (1.8-7.7) th/mm3 Lymph # (Auto) (1.0-4.8) th/mm3 [place] # (Auto) (0.0-0.9) th/mm3 Eos # (Auto) (0.0-0.4) th/mm3 Baso # (Auto) (0.0-0.2) th/mm3 WBC Differential Differential Comment PT (9.8-11.6) sec INR Ratio APTT (23.4-31.7) sec Sodium (136-145) meq/L Potassium (3.5-5.1) meq/L Chloride (98-107) meq/L Carbon Dioxide (21.0-32.0) meq/L Anion Gap (5-15) meq/L BUN (7-18) mg/dL Creatinine (0.60-1.30) mg/dL Estimated GFR (>89) mL/min Random Glucose (74-106) mg/dL Lactic Acid 0.5 (0.4-2.0) mmol/L Calcium (8.5-10.1) mg/dL Magnesium (1.5-2.5) mg/dL Total Bilirubin (0.2-1.0) mg/dL AST (15-37) U/L ALT (12-78) U/L Alkaline Phosphatase (45-117) U/L Total Creatine Kinase (39-308) U/L Troponin I (0.02-0.05) ng/mL Total Protein (6.4-8.2) g/dL Albumin (3.4-5.0) g/dL Lipase (73-393) U/L Urine Color Yellow (Yellw/Straw) Urine Clarity Cloudy H (Clear) Urine pH 5.5 (5.0-8.5) Ur Specific [place] 1.014 (1.002-1.035) Urine Protein 300 or greater H (Neg-Trace) mg/dL Urine Glucose (UA) Negative (Negative) mg/dL Urine Ketones Negative (Negative) mg/dL Urine Occult Blood Large H (Negative) Urine Nitrate Positive H (Negative) Urine Bilirubin Negative (Negative) Urine Urobilinogen 0.2 (Less than 2) mg/dL Ur Leukocyte Esterase Large H (Negative) Urine RBC (0-3) /hpf Urine WBC (0-5) /hpf Ur Squamous Epith Cells 4 (0-5) /hpf Amorphous Sediment Rare H (None) /hpf Urine Bacteria Few H (None) /hpf Urine Yeast Many H (None) /hpf Micro UA Comment Cath-culture ind Ur Microscopic Review Not Reportable Urine Culture Comments Cath-cult indicated Imaging Data Radiologist's impression: Chest X-Ray 07/19/18 03:23 CONCLUSION: No acute cardiopulmonary disease identified. Abdomen/Pelvis CT 07/19/18 04:20 CONCLUSION: 1. Right-sided nephrostomy tube retracted with the distal catheter seen in the chest wall superficial to the ribs. 2. Left-sided nephrostomy tube no longer seen. 3. Multiple bilateral renal calculi with prominent calculus in the right renal pelvis. No evidence for hydronephrosis. Fragmentation of calculus on the right when compared to the prior study. 4. Left mid ureteral calculus. Slightly distal to its location on the prior study. 5. Distal abdominal aortic aneurysm unchanged. 6. Cholelithiasis. ECG Data Attestation: I personally reviewed and interpreted this ECG as follows: Interpretation: The patient had an EKG done on arrival that shows atrial fibrillation with a heart rate of 71, QRS duration is 89 ms, QTC [address] segment elevation. The patient does have a history of atrial fibrillation. Discharge Plan Discharge Disposition Patient Disposition: 30 Still Patient Discharge Details Diagnosis: Nephrostomy complication, UTI (urinary tract infection) Physicians Team ED Provider: Maria Guadalupe Randle Primary Care Provider: Primary Care Dot Chavez Attending Provider: Lissette Villa Other Providers: Eliezer Gregorio Discharge Interventions Interventions: Vital Signs Last Done: 07/19/18 05:33 Status ED Status: Admitted Patient
[2018-07-19 05:16] LABS: Bilirubin,Urine Negative (Negative); Clarity,Urine Cloudy (Clear); Color,Urine Yellow (Yellw/Straw); Glucose,Urine (UA) Negative (Negative); Leukocyte Esterase,Urine Large (Negative); Nitrite,Urine Positive (Negative); PH,Urine 5.5 (5.0-8.5); Urobilinogen,Urine 0.2 mg/dL (Less than 2)
[2018-07-19 05:28] LABS: Amorphous Sediment,Urine Rare /hpf; Bacteria,Urine Few /hpf; Squamous Epithelial Cell,Urine 4 /hpf (0-5)
[2018-07-19 05:29] LABS: Specific Gravity,Urine 1.014 (1.002-1.035)
--- NOTE | 2018-07-19 05:30 | CT ---
EXAM DATE: 07/19/2018 4:59 AM EST AGE/SEX: 78 years / Male INDICATIONS: Right flank pain. Patient states his right nephrotomy tube came dislodged. CLINICAL DATA: This is the patient's initial encounter. Patient reports that signs and symptoms have been present for 1 day and indicates a pain score of 10/10. MEDICAL/SURGICAL HISTORY: Hypertension. Renal calculi. Carcinoma, prostatic. COPD. CKD. Ne phrostomy tube, right. RADIATION DOSE: 6.74 CTDI (mGy) COMPARISON: [facility] – [place] ABDOMEN & PELVIS W/O CONTRAST, 04/12/2018. . TECHNIQUE: Multiple contiguous axial images were obtained through the abdomen. Images were obtained using multiple row detector helical technique. Using automated exposure control and adjustment of the mA and/or kV according to patient size, radiation dose was kept as low as reasonably achievable to o btain optimal diagnostic quality images. DICOM format image data is available electronically for rev iew and comparison. FINDINGS: Lower Lungs: The visualized lower lungs are clear. Liver: Multiple calcified gallstones in the gallbladder with the largest measuring 1.9 cm. No pericho lecystic inflammatory changes identified. Visualized portions of liver are homogeneous and within nor mal limits. Spleen: Homogeneous density without enlargement. Pancreas: Unremarkable without mass or calcification. Kidneys: Right sided nephrostomy tube is retracted with the pigtail of the catheter in the posterior chest wall soft tissues superficial to the ribs. Multiple large left-sided renal calculi in the mid to lower pole the largest measuring 1.4 cm. Multiple left renal masses, likely representing cysts wit h the largest measuring 3.9 cm in the lower pole. 1.5 x 0.8 cm oval calculus in the right renal pelvi s. No evidence for hydronephrosis. Multiple smaller calculi in the midpole. 8mm calculus in the mid l eft ureter. Mild proximal left hydroureter. No jenaro hydronephrosis. Post surgical findings with neob ladder noted in the right lower quadrant. Left-sided nephrostomy tube no longer seen. Adrenal Glands: Unremarkable. Aorta: Diffuse aortic calcification. Distal abdominal aortic aneurysm measuring up to 3.8 cm in AP dimension. This is unchanged from the prior study of March 2018. Bowel/Mesentery: No evidence of bowel dilatation. No free air or free fluid. Postsurgical findings i n the right lower quadrant. Appendix not identified. Abdominal Wall: Stoma noted in the right lower quadrant. Retroperitoneum: Multiple subcentimeter retroperitoneal lymph nodes likely reactive and unchanged fr om the prior study. Bladder: Status post cystectomy. Inguinal: Not fully visualized on this study. Bony Structures: Degenerative findings of the lumbar spine. Left-sided hip screw in place. CONCLUSION: 1. Right-sided nephrostomy tube retracted with the distal catheter seen in the chest wall superficia l to the ribs. 2. Left-sided nephrostomy tube no longer seen. 3. Multiple bilateral renal calculi with prominent calculus in the right renal pelvis. No evidence f or hydronephrosis. Fragmentation of calculus on the right when compared to the prior study. 4. Left mid ureteral calculus. Slightly distal to its location on the prior study. 5. Distal abdominal aortic aneurysm unchanged. 6. Cholelithiasis. Electronically signed by: El Rene MD 07/19/2018 5:29 AM EST
[2018-07-19] MEDS ORDERED: Piperacil/Tazo 3.375 GM Premix 50 ML IV.SIG ONE (05:38)
[2018-07-19] MEDS ORDERED: Iohexol 350 MG/ML 50 ML Vial (for Rad Diag) IVCONTRAST ONE (05:46)
[2018-07-19] MEDS ORDERED: Bisacodyl 10 MG Supp RECTAL PRN (05:56)
[2018-07-19] MEDS ORDERED: Acetaminophen 325 MG Tablet PO PRN (05:56)
[2018-07-19] MEDS ORDERED: Sodium Chloride 0.9% 2 ML Flush PRN IV.FLUSH (06:06)
--- NOTE | 2018-07-19 11:54 | P.HP ---
History of Present Illness Primary Care Physician: No Primary Care Physician Chief Complaint: Dislodged nephrostomy tube History of Present Illness: 78-year-old man with a past medical history of paroxysmal A. fib, liver cancer, parotid cancer was brought to the ED for evaluation of dislodged nephrostomy tube on the left side. Patient is currently a resident of a local prison facility. Although pleasant, he does not remember when was the nephrostomy placed. He denies any trauma. While in the ED, patient was found to have abnormal UA. He has declined left upper extremity, however denies currently being on any antibiotics. She denies any chest pain or shortness of breath and is afebrile. A Consultation was placed to urology. 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 - Medical History Medical History: Medical History (Last Reviewed 07/19/18 @ 04:15 by Maria Guadalupe Randle MD) Anticoagulant long-term use COPD (chronic obstructive pulmonary disease) Chronic kidney disease, stage IV (severe) Essential hypertension H/O reduction of nasal fracture History of Clostridium difficile infection History of MRSA infection Hyperlipidemia Kidney stones MDRO (multiple drug resistant organisms) resistance Onset Date: ~06/17/18 Nasal bones, closed fracture Nasal fracture Open left femoral fracture Prostate cancer Subdural hematoma UTI (urinary tract infection) VRE carrier Hypotension Intertrochanteric fracture of left hip Parotid mass - Surgical History Surgical History: Surgical History (Last Reviewed 07/19/18 @ 04:15 by Maria Guadalupe Randle MD) Hx of nephrostomy History of parotidectomy History of urostomy Nephrostomy status - Family History Family History: Family History (Last Reviewed 07/19/18 @ 04:15 by Maria Guadalupe Randle MD) Father Coronary artery disease Other Osteoarthritis - Tobacco History Second Hand Smoke Exposure: No Tobacco Use In Past 30 Days: No Smoking Status: Former smoker - Alcohol History How Often Do You Have a Drink Containing Alcohol: Monthly or less - Substance Use History Substance History: No History of Abuse - Travel History Recent Travel in the [place] Within the Last 8 Weeks: No Recent Travel Out of the Country Within the Last 8 Weeks: No - Immunization History Tetanus Immunization: <5 Years Medications and Allergies Active Medications: Active Medications Acetaminophen (Tylenol) 650 mg PO Q4H PRN PRN Reason: Temp > 100.4 Al Hydroxide/Mg Hydroxide (Milk Of Magnesia Liq) 30 ml PO Q12H PRN PRN Reason: Mild Constipation Bisacodyl (Dulcolax Supp) 10 mg RECTAL DAILY PRN PRN Reason: SEVERE CONSITIPATION Dronabinol (Marinol) 2.5 mg PO AC BREAKFAST TRAVIS Dronabinol (Marinol) 2.5 mg PO AC LUNCH TRAVIS Ceftriaxone Sodium 1,000 mg/ (Sodium Chloride) 100 mls @ 200 mls/hr IV.SIG Q24H TRAVIS Lactulose (Lactulose Liq) 30 ml PO DAILY PRN PRN Reason: SEVERE CONSITIPATION Levetiracetam (Keppra) 500 mg PO BID TRAVIS Multivitamins (Theragran) 1 tab PO DAILY TRAVIS Ondansetron HCl (Zofran Inj) 4 mg IV.PUSH Q6H PRN PRN Reason: NAUSEA OR VOMITING Pilocarpine HCl (Salagen) 5 mg PO BID [facility] Sennosides (Senokot) 17.2 mg PO Q12H PRN PRN Reason: Moderate Constipation Sodium Chloride (Ns Flush) 2 ml IV.FLUSH BID TRAVIS Sodium Chloride (Ns Flush) 2 ml IV.FLUSH PRN PRN PRN Reason: FLUSH AFTER USING IV ACCESS Allergies Allergy/AdvReac Type Severity Reaction Status Date / Time crab Allergy Intermediate Rash Verified 07/10/18 09:16 Home Medications Medication Instructions Recorded Confirmed Type pilocarpine HCl 5 mg PO BID 05/15/18 07/19/18 History acetaminophen 650 mg PO Q4H PRN 07/10/18 07/19/18 History Exam Vital signs: Vital Signs 07/19/18 03:11 07/19/18 03:14 07/19/18 03:55 Temperature 97.5 F L Pulse Rate 80 74 Respiratory Rate 22 19 Blood Pressure 84/55 L 88/55 L Pulse Oximetry 100 100 99 07/19/18 05:33 07/19/18 06:30 07/19/18 07:43 Temperature 97.7 F Pulse Rate 76 67 77 Respiratory Rate 16 16 17 Blood Pressure 84/55 L 94/58 L 95/58 L Pulse Oximetry 100 99 99 Intake & Output 07/18/18 07/19/18 07/19/18 18:59 06:59 18:59 Intake Total 1050 / 1050 Balance 1050 / 1050 Weight 70.307 kg Intake: IV 1050 / 1050 Zosyn 3.375 GM Premix 50 ML @ 50 / 50 100 mls/hr IV.SIG ONCE ONE Rx#: [id number] NS Inj 500 ML @ Wide Open IV. 1000 / 1000 SIG BOLUS ONE Rx#:[id number] Results - Labs CBC & Chem 7: 07/19/18 03:41 07/19/18 03:41 Labs: Laboratory Results - last 24 hr 07/19/18 07/19/18 07/19/18 03:41 03:41 03:41 WBC 4.8 RBC 2.60 L Hgb 8.3 L Hct 24.9 L MCV 95.6 MCH 31.8 MCHC 33.3 RDW 15.0 Plt Count 123 L MPV 8.9 Neut % (Auto) 49.6 Lymph % (Auto) 25.3 [place] % (Auto) 18.9 H Eos % (Auto) 5.4 H Baso % (Auto) 0.8 Neut # (Auto) 2.4 Lymph # (Auto) 1.2 [place] # (Auto) 0.9 Eos # (Auto) 0.3 Baso # (Auto) 0.0 WBC Differential . Differential Comment Auto diff final PT 10.2 INR 1.0 APTT 33.3 H Sodium 141 Potassium 5.4 H Chloride 111 H Carbon Dioxide 23.5 Anion Gap 7 BUN 64 H Creatinine 2.15 H Estimated GFR 30 L Random Glucose 90 Lactic Acid Calcium 8.6 Magnesium 1.8 Total Bilirubin 0.2 AST 25 ALT 41 Alkaline Phosphatase 133 H Total Creatine Kinase 29 L Troponin I Less than 0.02 L Total Protein 6.4 Albumin 2.6 L Lipase 267 Urine Color Urine Clarity Urine pH Ur Specific [place] Urine Protein Urine Glucose (UA) Urine Ketones Urine Occult Blood Urine Nitrate Urine Bilirubin Urine Urobilinogen Ur Leukocyte Esterase Urine RBC Urine WBC Ur Squamous Epith Cells Amorphous Sediment Urine Bacteria Urine Yeast Micro UA Comment Ur Microscopic Review Urine Culture Comments 07/19/18 07/19/18 03:41 05:05 WBC RBC Hgb Hct MCV MCH MCHC RDW Plt Count MPV Neut % (Auto) Lymph % (Auto) [place] % (Auto) Eos % (Auto) Baso % (Auto) Neut # (Auto) Lymph # (Auto) [place] # (Auto) Eos # (Auto) Baso # (Auto) WBC Differential Differential Comment PT INR APTT Sodium Potassium Chloride Carbon Dioxide Anion Gap BUN Creatinine Estimated GFR Random Glucose Lactic Acid 0.5 Calcium Magnesium Total Bilirubin AST ALT Alkaline Phosphatase Total Creatine Kinase Troponin I Total Protein Albumin Lipase Urine Color Yellow Urine Clarity Cloudy H Urine pH 5.5 Ur Specific [place] 1.014 Urine Protein 300 or greater H Urine Glucose (UA) Negative Urine Ketones Negative Urine Occult Blood Large H Urine Nitrate Positive H Urine Bilirubin Negative Urine Urobilinogen 0.2 Ur Leukocyte Esterase Large H Urine RBC Urine WBC Ur Squamous Epith Cells 4 Amorphous Sediment Rare H Urine Bacteria Few H Urine Yeast Many H Micro UA Comment Cath-culture ind Ur Microscopic Review Not Reportable Urine Culture Comments Cath-cult indicated - Imaging Impressions Chest X-Ray 07/19/18 03:23 CONCLUSION: No acute cardiopulmonary disease identified. Abdomen/Pelvis CT 07/19/18 04:20 CONCLUSION: 1. Right-sided nephrostomy tube retracted with the distal catheter seen in the chest wall superficial to the ribs. 2. Left-sided nephrostomy tube no longer seen. 3. Multiple bilateral renal calculi with prominent calculus in the right renal pelvis. No evidence for hydronephrosis. Fragmentation of calculus on the right when compared to the prior study. 4. Left mid ureteral calculus. Slightly distal to its location on the prior study. 5. Distal abdominal aortic aneurysm unchanged. 6. Cholelithiasis. Caprini VTE Risk Assessment Caprini VTE Risk Assessment: Moderate/High Risk (score >= 2) Caprini Risk Assessment Model: Point Value = 1 Point Value = 2 Point Value = 3 Point Value = 5 Age 41-60 Minor surgery BMI > 25 kg/m2 Swollen legs Varicose veins or History of unexplained or recurrent spontaneous Oral contraceptives or hormone replacement Sepsis (< 1 month) Serious lung disease, including pneumonia (< 1 month) Abnormal pulmonary function Acute myocardial infarction Congestive heart failure (< 1 month) History of inflammatory bowel disease Medical patient at bed rest Age 61-74 Arthroscopic surgery Major open surgery (> 45 min) Laparoscopic surgery (> 45 min) Malignancy Confined to bed (> 72 hours) Immobilizing plaster cast Central venous access Age >= 75 History of VTE Family history of VTE Factor V Leiden Prothrombin [id number] Lupus anticoagulant Anticardiolipin antibodies Elevated serum homocysteine Heparin-induced thrombocytopenia Other congenital or acquired thrombophilia Stroke (< 1 month) Elective arthroplasty Hip, pelvis, or leg fracture Acute spinal cord injury (< 1 month) Prophylaxis Regimen: Total Risk Factor Score Risk Level Prophylaxis Regimen 0-1 Low Early ambulation 2 Moderate Order ONE of the following: *Sequential Compression Device (SCD) *Heparin 5000 units SQ BID 3-4 Higher Order ONE of the following medications: *Heparin 5000 units SQ TID *Enoxaparin/Lovenox 40 mg SQ daily (WT < 150 kg, CrCl > 30 mL/min) *Enoxaparin/Lovenox 30 mg SQ daily (WT < 150 kg, CrCl > 10-29 mL/min) *Enoxaparin/Lovenox 30 mg SQ BID (WT < 150 kg, CrCl > 30 mL/min) AND/OR *Sequential Compression Device (SCD) 5 or more Highest Order ONE of the following medications: *Heparin 5000 units SQ TID (Preferred with Epidurals) *Enoxaparin/Lovenox 40 mg SQ daily (WT < 150 kg, CrCl > 30 mL/min) *Enoxaparin/Lovenox 30 mg SQ daily (WT < 150 kg, CrCl > 10-29 mL/min) *Enoxaparin/Lovenox 30 mg SQ BID (WT < 150 kg, CrCl > 30 mL/min) AND *Sequential Compression Device (SCD) Assessment and Plan - Plan 78-year-old man with Left-sided dislodged nephrostomy tube CT abdomen with reviewed with finding of this large nephrostomy tube on the left side Urology consultation pending Urinary tract infection Status post Zosyn IV x1 in ED, will start Rocephin pending blood and urine culture Acute on chronic kidney disease stage III and IV Start gentle IV fluid hydration and monitor BUN and creatinine Hypotension Hold oral antihypertensive medication Gentle IV fluid hydration Hyperkalemia Repeat potassium and treat accordingly History of seizure disorder and other chronic medical conditions Resume medications when patient able to take p.o.
--- NOTE | 2018-07-19 12:17 | ECG ---
Date Performed: 07/19/2018 Time Performed: 05:29:34 PTAGE: 78 years EKG: ATRIAL FIBRILLATION ABNORMAL RHYTHM ECG Since the PREVIOUS TRACING , no significant change noted PREVIOUS TRACIN06/17/2018 DOCTOR: Jaydon aRndle Interpretating Date/Time 07/19/2018 12:16:16
--- NOTE | 2018-07-19 14:09 | P.CONURO ---
History of Present Illness Service: Urology Consult date: 07/19/18 Requesting Physician: Kervin Bay Reason for Consult: Misplaced right PCN Primary Care Provider: No Primary Care Physician Chief Complaint: Dislodged nephrostomy tube History of Present Illness: 78-year-old man with a past medical history of paroxysmal A. fib, liver cancer, parotid cancer was brought to the ED for evaluation of dislodged nephrostomy tube on the left side. Patient is currently a resident of a local custodial facility. Although pleasant, he does not remember when was the nephrostomy placed. He denies any trauma. While in the ED, patient was found to have abnormal UA. He has declined left upper extremity, however denies currently being on any antibiotics. She denies any chest pain or shortness of breath and is afebrile. A Consultation was placed to urology. Was seen by Uro today. no pain, no f/c/n/v. Rt PCN is not draining and based on CT its displaced 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 - Medical History Medical History: Medical History (Last Reviewed 07/19/18 @ 04:15 by Maria Guadalupe Randle MD) Anticoagulant long-term use COPD (chronic obstructive pulmonary disease) Chronic kidney disease, stage IV (severe) Essential hypertension H/O reduction of nasal fracture History of Clostridium difficile infection History of MRSA infection Hyperlipidemia Kidney stones MDRO (multiple drug resistant organisms) resistance Onset Date: ~06/17/18 Nasal bones, closed fracture Nasal fracture Open left femoral fracture Prostate cancer Subdural hematoma UTI (urinary tract infection) VRE carrier Hypotension Intertrochanteric fracture of left hip Parotid mass - Surgical History Surgical History: Surgical History (Last Reviewed 07/19/18 @ 04:15 by Maria Guadalupe Randle MD) Hx of nephrostomy History of parotidectomy History of urostomy Nephrostomy status - Family History Family History: Family History (Last Reviewed 07/19/18 @ 04:15 by Maria Guadalupe Randle MD) Father Coronary artery disease Other Osteoarthritis - Tobacco History Second Hand Smoke Exposure: No Tobacco Use In Past 30 Days: No Smoking Status: Former smoker - Alcohol History How Often Do You Have a Drink Containing Alcohol: Monthly or less - Substance Use History Substance History: No History of Abuse - Travel History Recent Travel in the [facility] Within the Last 8 Weeks: No Recent Travel Out of the Country Within the Last 8 Weeks: No - Immunization History Tetanus Immunization: <5 Years Medications and Allergies Active Medications: Active Medications Acetaminophen (Tylenol) 650 mg PO Q4H PRN PRN Reason: Temp > 100.4 Al Hydroxide/Mg Hydroxide (Milk Of Magnesia Liq) 30 ml PO Q12H PRN PRN Reason: Mild Constipation Bisacodyl (Dulcolax Supp) 10 mg RECTAL DAILY PRN PRN Reason: SEVERE CONSITIPATION Dronabinol (Marinol) 2.5 mg PO AC BREAKFAST TRAVIS Dronabinol (Marinol) 2.5 mg PO AC LUNCH TRAVIS Ceftriaxone Sodium 1,000 mg/ (Sodium Chloride) 100 mls @ 200 mls/hr IV.SIG Q24H TRAVIS Sodium Chloride (Ns Inj) 1,000 mls @ 70 mls/hr IV.CONT .[id number] TRAVIS Lactulose (Lactulose Liq) 30 ml PO DAILY PRN PRN Reason: SEVERE CONSITIPATION Levetiracetam (Keppra) 500 mg PO BID TRAVIS Multivitamins (Theragran) 1 tab PO DAILY TRAVIS Ondansetron HCl (Zofran Inj) 4 mg IV.PUSH Q6H PRN PRN Reason: NAUSEA OR VOMITING Pilocarpine HCl (Salagen) 5 mg PO BID TRAVIS Sennosides (Senokot) 17.2 mg PO Q12H PRN PRN Reason: Moderate Constipation Sodium Chloride (Ns Flush) 2 ml IV.FLUSH BID TRAVIS Sodium Chloride (Ns Flush) 2 ml IV.FLUSH PRN PRN PRN Reason: FLUSH AFTER USING IV ACCESS Allergies Allergy/AdvReac Type Severity Reaction Status Date / Time crab Allergy Intermediate Rash Verified 07/10/18 09:16 Home Medications Medication Instructions Recorded Confirmed Type pilocarpine HCl 5 mg PO BID 05/15/18 07/19/18 History acetaminophen 650 mg PO Q4H PRN 07/10/18 07/19/18 History Physical Exam Vital Signs - 24 hr 07/19/18 03:11 07/19/18 03:14 07/19/18 03:55 Temperature 97.5 F L Pulse Rate 80 74 Respiratory Rate 22 19 Blood Pressure 84/55 L 88/55 L Pulse Oximetry 100 100 99 11/21/18 05:33 07/19/18 06:30 07/19/18 07:43 Temperature 97.7 F Pulse Rate 76 67 77 Respiratory Rate 16 16 17 Blood Pressure 84/55 L 94/58 L 95/58 L Pulse Oximetry 100 99 99 Physical Exam: NAD RRR Clear lungs Abd soft Urostomy bag is in place Laboratory Results - last 24 hr 07/19/18 07/19/18 07/19/18 03:41 03:41 03:41 WBC 4.8 RBC 2.60 L Hgb 8.3 L Hct 24.9 L MCV 95.6 MCH 31.8 MCHC 33.3 RDW 15.0 Plt Count 123 L MPV 8.9 Neut % (Auto) 49.6 Lymph % (Auto) 25.3 [place] % (Auto) 18.9 H Eos % (Auto) 5.4 H Baso % (Auto) 0.8 Neut # (Auto) 2.4 Lymph # (Auto) 1.2 [place] # (Auto) 0.9 Eos # (Auto) 0.3 Baso # (Auto) 0.0 WBC Differential . Differential Comment Auto diff final PT 10.2 INR 1.0 APTT 33.3 H Sodium 141 Potassium 5.4 H Chloride 111 H Carbon Dioxide 23.5 Anion Gap 7 BUN 64 H Creatinine 2.15 H Estimated GFR 30 L Random Glucose 90 Lactic Acid Calcium 8.6 Magnesium 1.8 Total Bilirubin 0.2 AST 25 ALT 41 Alkaline Phosphatase 133 H Total Creatine Kinase 29 L Troponin I Less than 0.02 L Total Protein 6.4 Albumin 2.6 L Lipase 267 Urine Color Urine Clarity Urine pH Ur Specific [place] Urine Protein Urine Glucose (UA) Urine Ketones Urine Occult Blood Urine Nitrate Urine Bilirubin Urine Urobilinogen Ur Leukocyte Esterase Urine RBC Urine WBC Ur Squamous Epith Cells Amorphous Sediment Urine Bacteria Urine Yeast Micro UA Comment Ur Microscopic Review Urine Culture Comments 07/19/18 07/19/18 03:41 05:05 WBC RBC Hgb Hct MCV MCH MCHC RDW Plt Count MPV Neut % (Auto) Lymph % (Auto) [place] % (Auto) Eos % (Auto) Baso % (Auto) Neut # (Auto) Lymph # (Auto) [place] # (Auto) Eos # (Auto) Baso # (Auto) WBC Differential Differential Comment PT INR APTT Sodium Potassium Chloride Carbon Dioxide Anion Gap BUN Creatinine Estimated GFR Random Glucose Lactic Acid 0.5 Calcium Magnesium Total Bilirubin AST ALT Alkaline Phosphatase Total Creatine Kinase Troponin I Total Protein Albumin Lipase Urine Color Yellow Urine Clarity Cloudy H Urine pH 5.5 Ur Specific [place] 1.014 Urine Protein 300 or greater H Urine Glucose (UA) Negative Urine Ketones Negative Urine Occult Blood Large H Urine Nitrate Positive H Urine Bilirubin Negative Urine Urobilinogen 0.2 Ur Leukocyte Esterase Large H Urine RBC Urine WBC Ur Squamous Epith Cells 4 Amorphous Sediment Rare H Urine Bacteria Few H Urine Yeast Many H Micro UA Comment Cath-culture ind Ur Microscopic Review Not Reportable Urine Culture Comments Cath-cult indicated Result Diagrams: 07/19/18 03:41 07/19/18 03:41 Imaging: ITS Impressions Chest X-Ray 07/19/18 03:23 CONCLUSION: No acute cardiopulmonary disease identified. Abdomen/Pelvis CT 07/19/18 04:20 CONCLUSION: 1. Right-sided nephrostomy tube retracted with the distal catheter seen in the chest wall superficial to the ribs. 2. Left-sided nephrostomy tube no longer seen. 3. Multiple bilateral renal calculi with prominent calculus in the right renal pelvis. No evidence for hydronephrosis. Fragmentation of calculus on the right when compared to the prior study. 4. Left mid ureteral calculus. Slightly distal to its location on the prior study. 5. Distal abdominal aortic aneurysm unchanged. 6. Cholelithiasis. Assessment and Plan - Plan - No intervention needed - Consult IR for right PCN management Pt to see Dr Cris TAN as outpt in July Discussed Condition With: Dr Darline TAN attending and pt's RN
[2018-07-19] MEDS ORDERED: fentaNYL Citrate Inj 100 MCG/2 ML Ampul ONE (15:59)
[2018-07-19] MEDS: Sod Chloride 0.9% Inj 1,000 ML IV.CONT SCH (16:12)
[2018-07-19] MEDS: Sodium Chloride 0.9% 2 ML Flush BID IV.FLUSH SCH ×2 (16:15→20:09)
[2018-07-19] MEDS ORDERED: Lidocaine PF 1% Inj 30 ML Vial ONE (16:45)
--- NOTE | 2018-07-19 17:01 | P.RAD ---
Post Procedure Progress Note - Procedure Information Procedure Date: 07/19/18 Supervising Radiologist: KRYSTIN Arenas Assisting Physician: Gerald Castrejon Estimated blood loss (mL): 0 Anesthesia: Conscious Sedation - Plan of Activity Patient to Unit: ROPU Patient Condition: Good See PACS Report for procedural detail/treatment.
[2018-07-19] MEDS: levETIRAcetam 500 MG Tablet PO SCH (20:09)
[2018-07-19] MEDS: Pilocarpine HCl 5 MG Tablet PO SCH (20:09)
[2018-07-20] MEDS: Sod Chloride 0.9% Inj 1,000 ML IV.CONT SCH ×2 (02:32→17:14)
[2018-07-20] MEDS: DRONABINOL 2.5 MG CAPSULE PO SCH ×2 (06:04→11:34)
[2018-07-20 07:29] LABS: Baso % (Auto) 0.5 % (0.0-2.0); Eos # (Auto) 0.3 th/mm3 (0.0-0.4); Eos % (Auto) 3.9 % (0.0-4.0); Hematocrit 25.2 % (39.0-51.0); Hemoglobin 8.4 gm/dL (13.0-17.0); Lymph # (Auto) 0.9 th/mm3 (1.0-4.8); Lymph % (Auto) 13.1 % (9.0-44.0); Mean Corpuscular HGB Conc 33.3 % (32.0-36.0); Mean Corpuscular Hemoglobin 32.3 pg (27.0-34.0); Mean Corpuscular Volume 97.2 fL (80.0-100.0); Mean Platelet Volume 8.7 fL (7.0-11.0); Mono # (Auto) 0.9 th/mm3 (0.0-0.9); Neut # (Auto) 4.7 th/mm3 (1.8-7.7); Neut % (Auto) 69.5 % (16.0-70.0); Platelet Count 133 th/mm3 (150-450); Red Cell Distribution Width 15.3 % (11.6-17.2); White Blood Count 6.8 th/mm3 (4.0-11.0)
[2018-07-20] MEDS: Pilocarpine HCl 5 MG Tablet PO SCH ×2 (09:53→21:19)
[2018-07-20] MEDS: Sodium Chloride 0.9% 2 ML Flush BID IV.FLUSH SCH ×2 (09:54→21:19)
[2018-07-20] MEDS: levETIRAcetam 500 MG Tablet PO SCH ×2 (09:54→21:19)
[2018-07-20 11:39] LABS: Calcium 8.1 mg/dL (8.5-10.1); Carbon Dioxide 23.2 meq/L (21.0-32.0); Potassium 5.3 meq/L (3.5-5.1)
--- NOTE | 2018-07-20 12:49 | P.PN ---
Subjective Interval history: Follow-up left-sided nephrostomy tube dislodged July 20, 2018-patient seen and examined, afebrile and no complaint this morning. Case was discussed yesterday with interventional radiologist Dr. Kay. Physical Exam Vital signs: Vital Signs 07/19/18 13:00 07/19/18 14:00 07/19/18 14:07 Temperature 97.2 F L Pulse Rate 80 72 81 Respiratory Rate 17 Blood Pressure 95/67 L Pulse Oximetry 99 07/19/18 15:00 07/19/18 17:23 07/19/18 18:00 Temperature 97.1 F L Pulse Rate 80 78 76 Respiratory Rate 17 Blood Pressure 93/66 L Pulse Oximetry 99 07/19/18 19:00 07/19/18 20:00 07/19/18 21:00 Temperature 98.2 F Pulse Rate 70 74 75 Respiratory Rate 20 Blood Pressure 107/65 Pulse Oximetry 98 07/19/18 22:00 07/19/18 23:00 07/20/18 00:00 Temperature 98.4 F Pulse Rate 77 81 68 Respiratory Rate 20 Blood Pressure 130/94 H Pulse Oximetry 99 07/20/18 01:00 07/20/18 02:00 07/20/18 03:00 Temperature Pulse Rate 77 75 70 Respiratory Rate Blood Pressure Pulse Oximetry 07/20/18 04:00 07/20/18 05:00 07/20/18 05:52 Temperature 98 F Pulse Rate 69 74 77 Respiratory Rate 20 Blood Pressure 93/54 L Pulse Oximetry 97 07/20/18 07:00 07/20/18 08:00 07/20/18 09:00 Temperature 97.6 F Pulse Rate 75 89 82 Respiratory Rate 18 Blood Pressure 86/67 L Pulse Oximetry 100 07/20/18 10:00 07/20/18 11:36 Temperature 97.7 F Pulse Rate 84 110 H Respiratory Rate 18 Blood Pressure 89/57 L Pulse Oximetry 99 Intake & Output 07/19/18 07/20/18 07/20/18 18:59 06:59 18:59 Intake Total 280 / 280 480 / 480 100 / 100 Output Total 1400 / 1400 Balance 280 / 280 -920 / -920 100 / 100 Weight 63.5 kg Intake: IV 280 / 280 100 / 100 NS Inj 1,000 ML @ 70 mls/hr IV. 280 / 280 CONT .[id number] [facility] Rx#:[id number] Rocephin Inj 1,000 MG In NS Inj 100 / 100 100 ML @ 200 mls/hr IV.SIG Q24H [facility] Rx#:[id number] Oral 480 / 480 Output: Urine Amount (Stoma) 1400 / 1400 Continent Urostomy Right 400 / 400 Nephrostomy Tube Left 500 / 500 Pre-Hospital: Nephrostomy Tube 500 / 500 Right Other: Date of Last Bowel Movement 07/20/18 07/20/18 Narrative: GENERAL: NAD SKIN: Warm and dry. HEAD: Atraumatic. Normocephalic. EYES: Pupils equal and round. No scleral icterus. No injection or drainage. ENT: No nasal bleeding or discharge. Mucous membranes pink and moist. NECK: Trachea midline. No JVD. CARDIOVASCULAR: Regular rate and rhythm. RESPIRATORY: No accessory muscle use. Clear to auscultation. Breath sounds equal bilaterally. GASTROINTESTINAL: Abdomen soft, non-tender, nondistended. Hepatic and splenic margins not palpable. Right nephrostomy tube in place MUSCULOSKELETAL: Extremities without clubbing, cyanosis, or edema. No obvious deformities. NEUROLOGICAL: Awake and alert. No obvious cranial nerve deficits. Motor grossly within normal limits. Five out of 5 muscle strength in the arms and legs. Normal speech. PSYCHIATRIC: Appropriate mood and affect; insight and judgment normal. Results - Labs CBC & Chem 7: 07/20/18 07:12 07/20/18 10:36 Laboratory Results - last 24 hr 07/19/18 07/20/18 07/20/18 14:20 07:12 10:36 WBC 6.8 RBC 2.60 L Hgb 8.4 L Hct 25.2 L MCV 97.2 MCH 32.3 MCHC 33.3 RDW 15.3 Plt Count 133 L MPV 8.7 Neut % (Auto) 69.5 Lymph % (Auto) 13.1 [place] % (Auto) 13.0 H Eos % (Auto) 3.9 Baso % (Auto) 0.5 Neut # (Auto) 4.7 Lymph # (Auto) 0.9 L [place] # (Auto) 0.9 Eos # (Auto) 0.3 Baso # (Auto) 0.0 WBC Differential . Differential Comment Auto diff final Sodium 143 Potassium 5.3 H Chloride 113 H Carbon Dioxide 23.2 Anion Gap 7 BUN 61 H Creatinine 2.13 H Estimated GFR 30 L POC Glucose 91 Random Glucose 94 Calcium 8.1 L Microbiology 07/19/18 03:41 Blood - Peripheral Aerobic Blood Culture - Preliminary No growth in 1 day 07/19/18 03:41 Blood - Peripheral Anaerobic Blood Culture - Preliminary No growth in 1 day 07/19/18 03:41 Blood - Peripheral Aerobic Blood Culture - Preliminary No growth in 1 day 07/19/18 03:41 Blood - Peripheral Anaerobic Blood Culture - Preliminary No growth in 1 day Assessment and Plan - Plan 78-year-old man with Left-sided dislodged nephrostomy tube CT abdomen with reviewed with finding of this large nephrostomy tube on the left side Urology consulted however requested yesterday interventional radiology consultation instead Case discussed with IR, and will repeat CT abdomen tomorrow July 21, 2018. 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
[2018-07-21] MEDS: Sod Chloride 0.9% Inj 1,000 ML IV.CONT SCH ×2 (06:08→20:25)
[2018-07-21] MEDS: DRONABINOL 2.5 MG CAPSULE PO SCH ×2 (06:09→12:45)
[2018-07-21 06:47] LABS: Baso % (Auto) 0.6 % (0.0-2.0); Eos # (Auto) 0.2 th/mm3 (0.0-0.4); Eos % (Auto) 2.9 % (0.0-4.0); Hematocrit 22.9 % (39.0-51.0); Mean Corpuscular HGB Conc 34.8 % (32.0-36.0); Mean Corpuscular Hemoglobin 33.2 pg (27.0-34.0); Mean Corpuscular Volume 95.4 fL (80.0-100.0); Mean Platelet Volume 8.9 fL (7.0-11.0); Mono % (Auto) 16.3 % (0.0-8.0); Neut # (Auto) 4.2 th/mm3 (1.8-7.7); Neut % (Auto) 65.2 % (16.0-70.0); Platelet Count 138 th/mm3 (150-450); Red Cell Distribution Width 15.6 % (11.6-17.2); White Blood Count 6.4 th/mm3 (4.0-11.0)
[2018-07-21 07:15] LABS: Alanine Aminotransferase 38 U/L (12-78); Albumin 2.4 g/dL (3.4-5.0); Anion Gap 9 meq/L (5-15); Aspartate Aminotransferase 24 U/L (15-37); Blood Urea Nitrogen 57 mg/dL (7-18); Calcium 8.2 mg/dL (8.5-10.1); Carbon Dioxide 19.2 meq/L (21.0-32.0); Chloride 116 meq/L (98-107); Glomerular Filtration Rate 32 mL/min (>89); Glucose,Random 84 mg/dL (74-106); Potassium 4.8 meq/L (3.5-5.1); Sodium 144 meq/L (136-145)
[2018-07-21 07:18] LABS: Alkaline Phosphatase 125 U/L (45-117); Total Protein 6.3 g/dL (6.4-8.2)
--- NOTE | 2018-07-21 09:13 | IR ---
EXAM DATE: 07/19/2018 6:39 PM EST AGE/SEX: 78 years / Male INDICATIONS: 78-year-old male with history of prior cystectomy and chronic obstructing bilateral brandee l calculi. Patient has had multiple nephrostomy catheter exchanges due to accidental dislodgment give n his altered mental status. Patient presents secondary to accidental removal of the left nephrostomy catheter. On CT examination, the right nephrostomy catheter is also noted to be retracted into the p osterior abdominal wall. CLINICAL DATA: This is the patient's initial encounter. Patient reports that signs and symptoms have been present for 1 day and indicates a pain score of 0/10. MEDICAL/SURGICAL HISTORY: Chronic obstructive pulmonary disease. Renal calculi. Renal failure , chronic. Subdural Hematoma, UTI, Hypotension. Nephrostomy tube, left. Nephrostomy tube, right. L eft Hip Fracture, Urostomy, Parotid Mass, Nasal Fracture. COMPARISON: [facility] [place] & [place]EL[place]/O CONTRAST, 07/19/2018. . FLUORO TIME (min): 2.1 IMAGE SERIES: 7 SEDATION TIME (min): 30 CONTRAST (cc): 15 Omnipaque (iohexol) 350 MEDICATION(S): 1.5 mg midazolam (Versed) IV 75 mcg fentanyl (Sublimaze) IV DEVICE(S): 8 [place] nephrostomy catheter Expel 25 cm catheter. . . PROCEDURE: 1. Antegrade pyelogram. 2. Placement of new left nephrostomy catheter through existing tract. 3. Conscious sedation with continuous EKG and oximetry monitoring. The risks, benefits and alternatives to the procedure were explained and verbal and written consent w as obtained. The site was prepped in sterile fashion. Full sterile technique was used, including ca p, mask, sterile gloves and gown and a large sterile sheet. Hand hygiene and 2% chlorhexidine and/or betadine/alcohol prep was utilized per protocol for cutaneous antisepsis. The skin and subcutaneous tissues were infiltrated with local anesthetic solution. With fluoroscopic guidance antegrade pyelo gram was performed. A 4 [place] dilator was advanced through the existing left nephrostomy tract into the left renal colle cting system. Position was confirmed with injection of contrast. Next, a Glidewire was advanced into the renal collecting system and subsequently a new nephrostomy catheter was advanced over the Glidewi re and formed into position. Contrast injection demonstrates appropriate position of the nephrostomy catheter. The right nephrostomy catheter was then evaluated. This catheter is dislodged and coiled just below t he skin surface. Therefore, the catheter was removed. Multiple attempts to traverse the right nephros ruiz tract with dilator and guidewire were unsuccessful. This is presumed to be secondary to a more l danika-standing catheter dislodgment. Ultrasound evaluation of the right kidney was then performed. This demonstrates no significant hydronephrosis. Therefore, decision is to defer placement of a new nephr ostomy catheter at this time. Will reevaluate with CT examination in 24 to 48 hours. Conscious sedation was performed with the prescribed dosages and duration as above in the presence of an independent trained radiology nurse to assist in the monitoring of the patient. EKG and oximetry remained stable throughout the procedure. The patient tolerated the procedure well and there were n o complications. The patient was sent to post anesthesia recovery in stable condition. CONCLUSION: 1. Uncomplicated placement of new left-sided 8 [place] nephrostomy catheter through this large nephro stomy tract. 2. Unsuccessful attempted placement of nephrostomy catheter through existing right-sided nephrostomy tract. This is presumed to be secondary to more chronic dislodgment of this catheter. Ultrasound dax luation demonstrates no significant hydronephrosis on the right at this time and therefore new cathet er placement was deferred. Will reevaluate with CT examination in 24 to 48 hours. Electronically signed by: Gerald Castrejon MD 07/21/2018 9:11 AM EST
[2018-07-21] MEDS: levETIRAcetam 500 MG Tablet PO SCH ×2 (09:18→20:24)
[2018-07-21] MEDS: Pilocarpine HCl 5 MG Tablet PO SCH ×2 (09:19→20:24)
[2018-07-21] MEDS: Sodium Chloride 0.9% 2 ML Flush BID IV.FLUSH SCH ×2 (09:19→20:25)
--- NOTE | 2018-07-21 11:02 | CT ---
EXAM DATE: 07/21/2018 10:43 AM EST AGE/SEX: 78 years / Male INDICATIONS: Hydronephrosis CLINICAL DATA: This is the patient's initial encounter. Patient reports that signs and symptoms have been present for 1 day and indicates a pain score of 4/10. MEDICAL/SURGICAL HISTORY: Renal disease. Chronic obstructive pulmonary disease. Hypertension. kidney stones, prostate cancer . left nephrostomy tube RADIATION DOSE: 8.90 CTDI (mGy) COMPARISON: [facility] – [place], [place]BDOMEN & PELVIS W/O CONTRAST, 07/19/2018. . TECHNIQUE: Multiple contiguous axial images were obtained through the abdomen. Images were obtained using multiple row detector helical technique. Using automated exposure control and adjustment of the mA and/or kV according to patient size, radiation dose was kept as low as reasonably achievable to o btain optimal diagnostic quality images. DICOM format image data is available electronically for rev iew and comparison. FINDINGS: Lower Lungs: The visualized lower lungs are clear. Liver: The liver has a homogeneous density without space-occupying lesion. There is no dilation of th e biliary tree. 2 cm calcified gallstone is noted. Spleen: Homogeneous density without enlargement. Pancreas: Unremarkable without mass or calcification. Kidneys: A nephrostomy tube has been placed within the left renal collecting system. Collecting syst em has been decompressed following placement. Multiple large calculi remain evident within the left r enal collecting system. 4 large calculi previously identified remain evident. 0.4 cm calculus in the right renal pelvis is in stable position. There is no evidence of right-sided hydronephrosis. Bilateral renal cyst are again. Adrenal Glands: Unremarkable. Aorta: Calcific atherosclerotic disease remains evident. Aneurysmal enlargement of the infrarenal a bdominal aorta measuring 3.5 cm in diameter is stable. Bowel/Mesentery: Large amount retained stool is identified in the rectosigmoid region. Scattered div erticula are noted. Nonspecific small bowel pattern is noted with scattered air-fluid levels. There i s no significant small bowel distention. Ileostomy is identified in the right lower quadrant. Abdominal Wall: Intact. Retroperitoneum: No evidence of adenopathy in the retrocrural, para-aortic, or deep pelvic regions. Bladder: Status post cystectomy. Reproductive Organs: Postsurgical clips are seen in the region of the prostate gland. No significant residual prostate tissue is identified. Inguinal: The inguinal region is unremarkable without evidence of adenopathy. Bony Structures: Unremarkable. CONCLUSION: 1. New left nephrostomy tube with decompression of the collecting system. 2. Stable bilateral renal calculi. 3. Large calcified gallstone. 4. Status post cystectomy and prostatectomy. 5. 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 Stable abdominal aortic aneurysm 7. Large amount retained stool in the rectosigmoid region Electronically signed by: Darnell Clark MD 07/21/2018 11:01 AM EST
--- NOTE | 2018-07-21 12:06 | P.PN ---
Subjective Interval history: Follow-up left-sided nephrostomy tube dislodged July 20, 2018-patient seen and examined, afebrile and no complaint this morning. Case was discussed yesterday with interventional radiologist Dr. Kay. July 21, 2018-patient seen and examined, CT abdomen done today without any evidence of left-sided hydronephrosis. Patient has no complaint. Physical Exam Vital signs: Vital Signs 07/20/18 12:46 07/20/18 13:00 07/20/18 14:00 Temperature Pulse Rate 94 H 90 Respiratory Rate Blood Pressure 91/53 L Pulse Oximetry 07/20/18 15:00 07/20/18 16:00 07/20/18 17:00 Temperature 98.1 F Pulse Rate 78 78 84 Respiratory Rate 16 Blood Pressure 95/54 L Pulse Oximetry 98 07/20/18 18:00 07/20/18 19:00 07/20/18 20:00 Temperature 96.9 F L Pulse Rate 82 98 H 103 H Respiratory Rate 16 Blood Pressure 92/62 L Pulse Oximetry 100 07/20/18 21:00 07/20/18 22:00 07/20/18 23:00 Temperature Pulse Rate 89 87 83 Respiratory Rate Blood Pressure Pulse Oximetry 07/21/18 00:00 07/21/18 01:00 07/21/18 02:00 Temperature 97.4 F L Pulse Rate 90 85 104 H Respiratory Rate 20 Blood Pressure 98/62 L Pulse Oximetry 100 07/21/18 03:00 07/21/18 04:00 07/21/18 05:00 Temperature 98.3 F Pulse Rate 97 H 103 H 101 H Respiratory Rate 18 Blood Pressure 88/54 L Pulse Oximetry 99 07/21/18 06:00 07/21/18 08:30 07/21/18 08:42 Temperature 98.0 F Pulse Rate 112 H 78 Respiratory Rate 16 Blood Pressure 86/57 L 94/53 L Pulse Oximetry 98 Intake & Output 07/20/18 07/21/18 07/21/18 18:59 06:59 18:59 Intake Total 980 / 980 1240 / 1240 Output Total 875 / 875 1050 / 1050 Balance 105 / 105 190 / 190 Weight 63.5 kg Intake: IV 100 / 100 1000 / 1000 NS Inj 1,000 ML @ 70 mls/hr IV. 1000 / 1000 CONT .[id number] [facility] Rx#:[id number] Rocephin Inj 1,000 MG In NS Inj 100 / 100 100 ML @ 200 mls/hr IV.SIG Q24H [facility] Rx#:[id number] Oral 880 / 880 240 / 240 Output: Urine 100 / 100 Urine Amount (Stoma) 875 / 875 950 / 950 Continent Urostomy Right 700 / 700 Nephrostomy Tube Left 175 / 175 950 / 950 Other: Date of Last Bowel Movement 07/20/18 07/21/18 07/21/18 # Bowel Movements 1 Narrative: GENERAL: NAD SKIN: Warm and dry. HEAD: Atraumatic. Normocephalic. EYES: Pupils equal and round. No scleral icterus. No injection or drainage. ENT: No nasal bleeding or discharge. Mucous membranes pink and moist. NECK: Trachea midline. No JVD. CARDIOVASCULAR: Regular rate and rhythm. RESPIRATORY: No accessory muscle use. Clear to auscultation. Breath sounds equal bilaterally. GASTROINTESTINAL: Abdomen soft, non-tender, nondistended. Hepatic and splenic margins not palpable. Right nephrostomy tube in place MUSCULOSKELETAL: Extremities without clubbing, cyanosis, or edema. No obvious deformities. NEUROLOGICAL: Awake and alert. No obvious cranial nerve deficits. Motor grossly within normal limits. Five out of 5 muscle strength in the arms and legs. Normal speech. PSYCHIATRIC: Appropriate mood and affect; insight and judgment normal. Results - Labs CBC & Chem 7: 07/21/18 05:53 07/21/18 05:53 Laboratory Results - last 24 hr 07/21/18 07/21/18 05:53 05:53 WBC 6.4 RBC 2.40 L Hgb 8.0 L Hct 22.9 L MCV 95.4 MCH 33.2 MCHC 34.8 RDW 15.6 Plt Count 138 L MPV 8.9 Neut % (Auto) 65.2 Lymph % (Auto) 15.0 [place] % (Auto) 16.3 H Eos % (Auto) 2.9 Baso % (Auto) 0.6 Neut # (Auto) 4.2 Lymph # (Auto) 1.0 [place] # (Auto) 1.0 H Eos # (Auto) 0.2 Baso # (Auto) 0.0 WBC Differential . Differential Comment Auto diff final Sodium 144 Potassium 4.8 Chloride 116 H Carbon Dioxide 19.2 L Anion Gap 9 BUN 57 H Creatinine 2.02 H Estimated GFR 32 L Random Glucose 84 Calcium 8.2 L Total Bilirubin 0.3 AST 24 ALT 38 Alkaline Phosphatase 125 H Total Protein 6.3 L Albumin 2.4 L Microbiology 07/19/18 03:41 Blood - Peripheral Aerobic Blood Culture - Preliminary No growth in 2 days 07/19/18 03:41 Blood - Peripheral Anaerobic Blood Culture - Preliminary No growth in 2 days 07/19/18 03:41 Blood - Peripheral Aerobic Blood Culture - Preliminary No growth in 2 days 07/19/18 03:41 Blood - Peripheral Anaerobic Blood Culture - Preliminary No growth in 2 days 07/19/18 05:05 Catheterized Urine Urine Culture - Final 50-100,000 cfu/mL mixed logan (probable contaminants ) - Imaging Impressions Nephrostomy Tube Change 07/19/18 00:00 CONCLUSION: 1. Uncomplicated placement of new left-sided 8 [place] nephrostomy catheter through this large nephrostomy tract. 2. Unsuccessful attempted placement of nephrostomy catheter through existing right-sided nephrostomy tract. This is presumed to be secondary to more chronic dislodgment of this catheter. Ultrasound evaluation demonstrates no significant hydronephrosis on the right at this time and therefore new catheter placement was deferred. Will reevaluate with CT examination in 24 to 48 hours. Abdomen/Pelvis CT 07/21/18 00:00 CONCLUSION: 1. New left nephrostomy tube with decompression of the collecting system. 2. Stable bilateral renal calculi. 3. Large calcified gallstone. 4. Status post cystectomy and prostatectomy. 5. 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 Stable abdominal aortic aneurysm 7. Large amount retained stool in the rectosigmoid region Assessment and Plan - Plan 78-year-old man with Left-sided dislodged nephrostomy tube CT abdomen with reviewed with finding of this large nephrostomy tube on the left side Urology consulted however requested interventional radiology consultation instead Repeat CT abdomen 07/21/18 with New left nephrostomy tube with decompression of the collecting system. 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
[2018-07-22] MEDS: DRONABINOL 2.5 MG CAPSULE PO SCH ×2 (07:10→12:44)
[2018-07-22] MEDS: Pilocarpine HCl 5 MG Tablet PO SCH ×2 (08:43→20:16)
[2018-07-22] MEDS: levETIRAcetam 500 MG Tablet PO SCH ×2 (08:43→20:16)
[2018-07-22] MEDS: Sodium Chloride 0.9% 2 ML Flush BID IV.FLUSH SCH ×2 (08:43→20:16)
--- NOTE | 2018-07-22 11:56 | P.PN ---
Subjective Interval history: Follow-up left-sided nephrostomy tube dislodged/C. difficile diarrhea/ hypotension July 20, 2018-patient seen and examined, afebrile and no complaint this morning. Case was discussed yesterday with interventional radiologist Dr. Kay. July 21, 2018-patient seen and examined, CT abdomen done today without any evidence of left-sided hydronephrosis. Patient has no complaint. July 22, 2018-patient seen and examined, he was started on p.o. vancomycin for C. difficile diarrhea which is improving this morning. BP soft. Patient is taking p.o. this morning without any Nausea and Vomiting. Physical Exam Vital signs: Vital Signs 07/21/18 12:00 07/21/18 13:00 07/21/18 14:00 Temperature 97.9 F Pulse Rate 94 H 90 92 H Respiratory Rate 16 Blood Pressure 94/53 L Pulse Oximetry 99 07/21/18 15:00 07/21/18 16:00 07/21/18 17:00 Temperature 98.1 F Pulse Rate 83 74 92 H Respiratory Rate 16 Blood Pressure 110/56 L Pulse Oximetry 99 07/21/18 17:48 07/21/18 17:52 07/21/18 18:00 Temperature Pulse Rate 88 Respiratory Rate Blood Pressure 83/63 L 94/60 L Pulse Oximetry 07/21/18 19:00 07/21/18 20:00 07/21/18 21:00 Temperature 97.7 F Pulse Rate 90 88 84 Respiratory Rate 18 Blood Pressure 110/53 L Pulse Oximetry 100 07/21/18 22:00 07/21/18 23:00 07/22/18 00:00 Temperature 98.1 F Pulse Rate 86 76 79 Respiratory Rate 18 Blood Pressure 97/51 L Pulse Oximetry 99 07/22/18 01:00 07/22/18 02:00 07/22/18 03:00 Temperature Pulse Rate 86 84 90 Respiratory Rate Blood Pressure Pulse Oximetry 07/22/18 04:00 07/22/18 05:00 07/22/18 06:00 Temperature 98.3 F Pulse Rate 90 87 77 Respiratory Rate 20 Blood Pressure 87/60 L Pulse Oximetry 99 07/22/18 07:00 07/22/18 08:00 Temperature 98.0 F Pulse Rate 101 H 75 Respiratory Rate 18 Blood Pressure 85/57 L Pulse Oximetry 100 Intake & Output 07/21/18 07/22/18 07/22/18 18:59 06:59 18:59 Intake Total 1940 / 1940 1240 / 1240 Output Total 1000 / 1000 875 / 875 Balance 940 / 940 365 / 365 Weight 63.5 kg Intake: IV 100 / 100 1000 / 1000 NS Inj 1,000 ML @ 70 mls/hr IV. 1000 / 1000 CONT .[id number] [facility] Rx#:[id number] Rocephin Inj 1,000 MG In NS Inj 100 / 100 100 ML @ 200 mls/hr IV.SIG Q24H [facility] Rx#:[id number] Oral 1840 / 1840 240 / 240 Output: Urine Amount (Stoma) 1000 / 1000 875 / 875 Continent Urostomy Right 250 / 250 175 / 175 Nephrostomy Tube Left 750 / 750 700 / 700 Other: Date of Last Bowel Movement 07/21/18 07/21/18 07/21/18 # Bowel Movements 4 1 Narrative: GENERAL: NAD SKIN: Warm and dry. HEAD: Atraumatic. Normocephalic. EYES: Pupils equal and round. No scleral icterus. No injection or drainage. ENT: No nasal bleeding or discharge. Mucous membranes pink and moist. NECK: Trachea midline. No JVD. CARDIOVASCULAR: Regular rate and rhythm. RESPIRATORY: No accessory muscle use. Clear to auscultation. Breath sounds equal bilaterally. GASTROINTESTINAL: Abdomen soft, non-tender, nondistended. Hepatic and splenic margins not palpable. Right and left nephrostomy tubes in place MUSCULOSKELETAL: Extremities without clubbing, cyanosis, or edema. No obvious deformities. NEUROLOGICAL: Awake and alert. No obvious cranial nerve deficits. Motor grossly within normal limits. Five out of 5 muscle strength in the arms and legs. Normal speech. PSYCHIATRIC: Appropriate mood and affect; insight and judgment normal. Results - Labs CBC & Chem 7: 07/21/18 05:53 07/21/18 05:53 Laboratory Results - last 24 hr 07/21/18 16:15 Stool C.difficile Ag Positive H Stool C.difficile Toxin Negative Stl C.difficile DNA Amp Positive H St C. diff Tox Epid 027 Negative Microbiology 07/19/18 03:41 Blood - Peripheral Aerobic Blood Culture - Preliminary No growth in 3 days 07/19/18 03:41 Blood - Peripheral Anaerobic Blood Culture - Preliminary No growth in 3 days 07/19/18 03:41 Blood - Peripheral Aerobic Blood Culture - Preliminary No growth in 3 days 07/19/18 03:41 Blood - Peripheral Anaerobic Blood Culture - Preliminary No growth in 3 days Assessment and Plan - Plan 78-year-old man with Left-sided dislodged nephrostomy tube-Fixed CT abdomen with reviewed with finding of this large nephrostomy tube on the left side Urology consulted however requested interventional radiology consultation instead Repeat CT abdomen 07/21/18 with New left nephrostomy tube with decompression of the collecting system. Abnormal UA Urine culture negative, discontinued Rocephin 07/21 C. difficile diarrhea C. difficile PCR positive Currently on vancomycin p.o. 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
[2018-07-22] MEDS: Sod Chloride 0.9% Inj 1,000 ML IV.CONT SCH (12:42)
[2018-07-23] MEDS: Sod Chloride 0.9% Inj 1,000 ML IV.CONT SCH ×2 (07:00→19:24)
[2018-07-23] MEDS: DRONABINOL 2.5 MG CAPSULE PO SCH ×2 (07:00→12:14)
[2018-07-23 07:01] LABS: Baso % (Auto) 0.5 % (0.0-2.0); Eos # (Auto) 0.3 th/mm3 (0.0-0.4); Eos % (Auto) 5.9 % (0.0-4.0); Hematocrit 22.3 % (39.0-51.0); Hemoglobin 7.5 gm/dL (13.0-17.0); Lymph # (Auto) 1.5 th/mm3 (1.0-4.8); Lymph % (Auto) 32.2 % (9.0-44.0); Mean Corpuscular HGB Conc 33.6 % (32.0-36.0); Mean Corpuscular Hemoglobin 32.9 pg (27.0-34.0); Mean Corpuscular Volume 97.7 fL (80.0-100.0); Mean Platelet Volume 8.4 fL (7.0-11.0); Mono # (Auto) 0.8 th/mm3 (0.0-0.9); Mono % (Auto) 18.5 % (0.0-8.0); Neut % (Auto) 42.9 % (16.0-70.0); Platelet Count 171 th/mm3 (150-450); Red Blood Count 2.28 mil/mm3 (4.50-5.90); Red Cell Distribution Width 15.8 % (11.6-17.2); White Blood Count 4.6 th/mm3 (4.0-11.0)
[2018-07-23 07:27] LABS: Alanine Aminotransferase 43 U/L (12-78); Albumin 2.5 g/dL (3.4-5.0); Alkaline Phosphatase 116 U/L (45-117); Anion Gap 6 meq/L (5-15); Aspartate Aminotransferase 35 U/L (15-37); Blood Urea Nitrogen 45 mg/dL (7-18); Calcium 8.4 mg/dL (8.5-10.1); Carbon Dioxide 21.3 meq/L (21.0-32.0); Chloride 115 meq/L (98-107); Glomerular Filtration Rate 34 mL/min (>89); Glucose,Random 84 mg/dL (74-106); Potassium 5.5 meq/L (3.5-5.1); Sodium 142 meq/L (136-145); Total Protein 6.4 g/dL (6.4-8.2)
[2018-07-23] MEDS: Pilocarpine HCl 5 MG Tablet PO SCH ×2 (09:59→20:39)
[2018-07-23] MEDS: levETIRAcetam 500 MG Tablet PO SCH ×2 (09:59→20:40)
[2018-07-23] MEDS: Sodium Chloride 0.9% 2 ML Flush BID IV.FLUSH SCH ×2 (09:59→20:41)
--- NOTE | 2018-07-23 11:32 | P.PN ---
Subjective Interval history: Follow-up left-sided nephrostomy tube dislodged/C. difficile diarrhea/ hypotension July 22, 2018-patient seen and examined, he was started on p.o. vancomycin for C. difficile diarrhea which is improving this morning. BP soft. Patient is taking p.o. this morning without any Nausea and Vomiting. July 23, 2018-patient seen and examined, No acute event overnight. Afebrile. No CP/SOB Physical Exam Vital signs: Vital Signs 07/22/18 12:00 07/22/18 13:00 07/22/18 14:00 Temperature 98.1 F Pulse Rate 76 76 76 Respiratory Rate 18 Blood Pressure 86/62 L Pulse Oximetry 100 07/22/18 15:00 07/22/18 16:00 07/22/18 17:00 Temperature 98.4 F Pulse Rate 83 76 74 Respiratory Rate 18 Blood Pressure 78/46 L Pulse Oximetry 98 07/22/18 18:00 07/22/18 19:00 07/22/18 20:00 Temperature 98.2 F Pulse Rate 71 68 66 Respiratory Rate 20 Blood Pressure 104/60 Pulse Oximetry 99 07/22/18 21:00 07/22/18 22:00 07/22/18 23:00 Temperature Pulse Rate 70 68 65 Respiratory Rate Blood Pressure Pulse Oximetry 07/23/18 00:00 07/23/18 01:00 07/23/18 02:00 Temperature 98.6 F Pulse Rate 62 71 65 Respiratory Rate 18 Blood Pressure 97/68 L Pulse Oximetry 97 07/23/18 03:00 07/23/18 04:00 07/23/18 05:00 Temperature 98.1 F Pulse Rate 69 62 71 Respiratory Rate 18 Blood Pressure 97/68 L Pulse Oximetry 97 07/23/18 05:48 07/23/18 08:00 Temperature 98.0 F Pulse Rate 68 77 Respiratory Rate 18 Blood Pressure 102/62 Pulse Oximetry 100 Intake & Output 07/22/18 07/23/18 07/23/18 18:59 06:59 18:59 Intake Total 1600 / 1600 1480 / 1480 Output Total 535 / 535 1000 / 1000 Balance 1065 / 1065 480 / 480 Weight 61.8 kg Intake: IV 1000 / 1000 1000 / 1000 NS Inj 1,000 ML @ 70 mls/hr IV. 1000 / 1000 1000 / 1000 CONT .[id number] [facility] Rx#:[id number] Oral 600 / 600 480 / 480 Output: Urine 400 / 400 Urine Amount (Stoma) 535 / 535 600 / 600 Continent Urostomy Right Nephrostomy Tube Left 525 / 525 600 / 600 Other: Date of Last Bowel Movement 07/21/18 07/23/18 07/21/18 # Bowel Movements 1 Narrative: GENERAL: NAD SKIN: Warm and dry. HEAD: Atraumatic. Normocephalic. EYES: Pupils equal and round. No scleral icterus. No injection or drainage. ENT: No nasal bleeding or discharge. Mucous membranes pink and moist. NECK: Trachea midline. No JVD. CARDIOVASCULAR: Regular rate and rhythm. RESPIRATORY: No accessory muscle use. Clear to auscultation. Breath sounds equal bilaterally. GASTROINTESTINAL: Abdomen soft, non-tender, nondistended. Hepatic and splenic margins not palpable. Right and left nephrostomy tubes in place MUSCULOSKELETAL: Extremities without clubbing, cyanosis, or edema. No obvious deformities. NEUROLOGICAL: Awake and alert. No obvious cranial nerve deficits. Motor grossly within normal limits. Five out of 5 muscle strength in the arms and legs. Normal speech. PSYCHIATRIC: Appropriate mood and affect; insight and judgment normal. Results - Labs CBC & Chem 7: 07/23/18 06:34 07/23/18 06:34 Laboratory Results - last 24 hr 07/23/18 07/23/18 06:34 06:34 WBC 4.6 RBC 2.28 L Hgb 7.5 L Hct 22.3 L MCV 97.7 MCH 32.9 MCHC 33.6 RDW 15.8 Plt Count 171 MPV 8.4 Neut % (Auto) 42.9 Lymph % (Auto) 32.2 [place] % (Auto) 18.5 H Eos % (Auto) 5.9 H Baso % (Auto) 0.5 Neut # (Auto) 2.0 Lymph # (Auto) 1.5 [place] # (Auto) 0.8 Eos # (Auto) 0.3 Baso # (Auto) 0.0 WBC Differential . Differential Comment Auto diff final Sodium 142 Potassium 5.5 H Chloride 115 H Carbon Dioxide 21.3 Anion Gap 6 BUN 45 H Creatinine 1.94 H Estimated GFR 34 L Random Glucose 84 Calcium 8.4 L Total Bilirubin 0.2 AST 35 ALT 43 Alkaline Phosphatase 116 Total Protein 6.4 Albumin 2.5 L Microbiology 07/19/18 03:41 Blood - Peripheral Aerobic Blood Culture - Preliminary No growth in 4 days 07/19/18 03:41 Blood - Peripheral Anaerobic Blood Culture - Preliminary No growth in 4 days 07/19/18 03:41 Blood - Peripheral Aerobic Blood Culture - Preliminary No growth in 4 days 07/19/18 03:41 Blood - Peripheral Anaerobic Blood Culture - Preliminary No growth in 4 days Assessment and Plan - Plan 78-year-old man with Left-sided dislodged nephrostomy tube-Fixed CT abdomen with reviewed with finding of this large nephrostomy tube on the left side Urology consulted however requested interventional radiology consultation instead Repeat CT abdomen 07/21/18 with New left nephrostomy tube with decompression of the collecting system. Abnormal UA Urine culture negative, discontinued Rocephin 07/21 C. difficile diarrhea C. difficile PCR positive Currently on vancomycin p.o. Acute on chronic kidney disease stage III and IV Continue gentle IV fluid hydration and monitor BUN and creatinine Nephrology consultation as needed Hypotension-Improving Continue hold oral antihypertensive medication Continue Florinef and midodrine 5 mg 3 times daily Continue Gentle IV fluid hydration Hyperkalemia Resolved History of seizure disorder and other chronic medical conditions Continue outpatient medications PT to treat and eval Transfer to [facility]
[2018-07-24 05:57] LABS: Baso % (Auto) 0.7 % (0.0-2.0); Eos # (Auto) 0.3 th/mm3 (0.0-0.4); Eos % (Auto) 8.3 % (0.0-4.0); Hematocrit 22.5 % (39.0-51.0); Hemoglobin 7.7 gm/dL (13.0-17.0); Lymph # (Auto) 1.4 th/mm3 (1.0-4.8); Lymph % (Auto) 33.8 % (9.0-44.0); Mean Corpuscular HGB Conc 34.3 % (32.0-36.0); Mean Corpuscular Hemoglobin 32.7 pg (27.0-34.0); Mean Corpuscular Volume 95.3 fL (80.0-100.0); Mean Platelet Volume 8.7 fL (7.0-11.0); Mono # (Auto) 0.6 th/mm3 (0.0-0.9); Mono % (Auto) 14.8 % (0.0-8.0); Neut # (Auto) 1.7 th/mm3 (1.8-7.7); Neut % (Auto) 42.4 % (16.0-70.0); Platelet Count 193 th/mm3 (150-450); Red Blood Count 2.36 mil/mm3 (4.50-5.90); Red Cell Distribution Width 15.2 % (11.6-17.2); White Blood Count 4.1 th/mm3 (4.0-11.0)
[2018-07-24] MEDS: DRONABINOL 2.5 MG CAPSULE PO SCH ×2 (06:05→13:00)
[2018-07-24] MEDS: Sod Chloride 0.9% Inj 1,000 ML IV.CONT SCH ×2 (06:05→20:50)
[2018-07-24 06:22] LABS: Alanine Aminotransferase 52 U/L (12-78); Albumin 2.4 g/dL (3.4-5.0); Anion Gap 7 meq/L (5-15); Aspartate Aminotransferase 43 U/L (15-37); Blood Urea Nitrogen 42 mg/dL (7-18); Carbon Dioxide 19.7 meq/L (21.0-32.0); Chloride 114 meq/L (98-107); Glomerular Filtration Rate 36 mL/min (>89); Glucose,Random 77 mg/dL (74-106); Potassium 4.7 meq/L (3.5-5.1); Sodium 141 meq/L (136-145)
[2018-07-24 06:24] LABS: Alkaline Phosphatase 114 U/L (45-117); Total Protein 6.3 g/dL (6.4-8.2)
[2018-07-24] MEDS: Pilocarpine HCl 5 MG Tablet PO SCH ×2 (10:16→21:07)
[2018-07-24] MEDS: levETIRAcetam 500 MG Tablet PO SCH ×2 (10:16→21:07)
[2018-07-24] MEDS: Sodium Chloride 0.9% 2 ML Flush BID IV.FLUSH SCH ×2 (10:17→21:04)
--- NOTE | 2018-07-24 10:33 | P.PN ---
Subjective Interval history: Follow-up left-sided nephrostomy tube dislodged/C. difficile diarrhea/ hypotension July 22, 2018-patient seen and examined, he was started on p.o. vancomycin for C. difficile diarrhea which is improving this morning. BP soft. Patient is taking p.o. this morning without any Nausea and Vomiting. July 23, 2018-patient seen and examined, No acute event overnight. Afebrile. No CP/SOB July 24, 2018-patient seen and examined, stable, BP improving. Afebrile. Physical Exam Vital signs: Vital Signs 07/23/18 11:00 07/23/18 12:00 07/23/18 13:00 Temperature 98.0 F Pulse Rate 75 76 72 Respiratory Rate 18 Blood Pressure 96/80 L Pulse Oximetry 100 07/23/18 14:00 07/23/18 15:00 07/23/18 16:00 Temperature 98.0 F Pulse Rate 80 75 72 Respiratory Rate 18 Blood Pressure 97/68 L Pulse Oximetry 100 07/23/18 17:00 07/23/18 18:00 07/23/18 19:00 Temperature Pulse Rate 76 84 86 Respiratory Rate Blood Pressure Pulse Oximetry 07/23/18 20:00 07/23/18 21:00 07/23/18 22:00 Temperature 98.3 F Pulse Rate 88 79 81 Respiratory Rate 18 Blood Pressure 105/63 Pulse Oximetry 98 07/23/18 23:00 07/23/18 23:56 07/24/18 00:00 Temperature 98.1 F Pulse Rate 83 82 82 Respiratory Rate 18 Blood Pressure 108/65 Pulse Oximetry 97 07/24/18 01:00 07/24/18 02:00 07/24/18 03:00 Temperature Pulse Rate 79 81 79 Respiratory Rate Blood Pressure Pulse Oximetry 07/24/18 03:50 07/24/18 04:00 07/24/18 05:00 Temperature 97.8 F Pulse Rate 80 80 77 Respiratory Rate 18 Blood Pressure 143/99 H Pulse Oximetry 97 07/24/18 06:00 Temperature Pulse Rate 78 Respiratory Rate Blood Pressure Pulse Oximetry Intake & Output 07/23/18 07/24/18 07/24/18 18:59 06:59 18:59 Intake Total 2480 / 2480 Output Total 1210 / 1210 Balance 1270 / 1270 Weight 61.3 kg Intake: IV 1999 NS Inj 1,000 ML @ 70 mls/hr IV. 1999 CONT .[id number] [facility] Rx#:[id number] Oral 480 / 480 Output: Urine Amount (Stoma) 1210 / 1210 Continent Urostomy 500 / 500 Nephrostomy Tube Left 710 / 710 Other: Date of Last Bowel Movement 07/21/18 07/21/18 # Bowel Movements 1 Narrative: GENERAL: NAD SKIN: Warm and dry. HEAD: Atraumatic. Normocephalic. EYES: Pupils equal and round. No scleral icterus. No injection or drainage. ENT: No nasal bleeding or discharge. Mucous membranes pink and moist. NECK: Trachea midline. No JVD. CARDIOVASCULAR: Regular rate and rhythm. RESPIRATORY: No accessory muscle use. Clear to auscultation. Breath sounds equal bilaterally. GASTROINTESTINAL: Abdomen soft, non-tender, nondistended. Hepatic and splenic margins not palpable. Right nephrostomy tube in place. left Urostomy tube in place MUSCULOSKELETAL: Extremities without clubbing, cyanosis, or edema. No obvious deformities. NEUROLOGICAL: Awake and alert. No obvious cranial nerve deficits. Motor grossly within normal limits. Five out of 5 muscle strength in the arms and legs. Normal speech. PSYCHIATRIC: Appropriate mood and affect; insight and judgment normal. Results - Labs CBC & Chem 7: 07/24/18 05:05 07/24/18 05:05 Laboratory Results - last 24 hr 07/24/18 07/24/18 05:05 05:05 WBC 4.1 RBC 2.36 L Hgb 7.7 L Hct 22.5 L MCV 95.3 MCH 32.7 MCHC 34.3 RDW 15.2 Plt Count 193 MPV 8.7 Neut % (Auto) 42.4 Lymph % (Auto) 33.8 [place] % (Auto) 14.8 H Eos % (Auto) 8.3 H Baso % (Auto) 0.7 Neut # (Auto) 1.7 L Lymph # (Auto) 1.4 [place] # (Auto) 0.6 Eos # (Auto) 0.3 Baso # (Auto) 0.0 WBC Differential . Differential Comment Auto diff final Sodium 141 Potassium 4.7 D Chloride 114 H Carbon Dioxide 19.7 L Anion Gap 7 BUN 42 H Creatinine 1.81 H Estimated GFR 36 L Random Glucose 77 Calcium 8.0 L Total Bilirubin 0.2 AST 43 H ALT 52 Alkaline Phosphatase 114 Total Protein 6.3 L Albumin 2.4 L Microbiology 07/19/18 03:41 Blood - Peripheral Aerobic Blood Culture - Preliminary No growth in 4 days 07/19/18 03:41 Blood - Peripheral Anaerobic Blood Culture - Preliminary No growth in 4 days 07/19/18 03:41 Blood - Peripheral Aerobic Blood Culture - Preliminary No growth in 4 days 07/19/18 03:41 Blood - Peripheral Anaerobic Blood Culture - Preliminary No growth in 4 days - Procedures None Assessment and Plan - Plan 78-year-old man with Left-sided dislodged nephrostomy tube-Fixed CT abdomen with reviewed with finding of this large nephrostomy tube on the left side Urology consulted however requested interventional radiology consultation instead Repeat CT abdomen 07/21/18 with New left nephrostomy tube with decompression of the collecting system. Abnormal UA Urine culture negative, s/p Rocephin 07/21 C. difficile diarrhea C. difficile PCR positive Currently on vancomycin p.o. times 10 days Acute on chronic kidney disease stage III and IV Continue gentle IV fluid hydration and monitor BUN and creatinine Nephrology consultation as needed Hypotension-Improving Continue hold oral antihypertensive medication Continue Florinef and midodrine 5 mg 3 times daily Continue Gentle IV fluid hydration Hyperkalemia Resolved History of seizure disorder and other chronic medical conditions Continue outpatient medications PT to treat and eval
--- NOTE | 2018-07-24 10:36 | P.DS ---
Date of admission: 07/19/18 05:45 Primary care physician: No Primary Care Physician Brief History from admission: 78-year-old man with a past medical history of paroxysmal A. fib, liver cancer, parotid cancer was brought to the ED for evaluation of dislodged nephrostomy tube on the left side. Patient is currently a resident of a local intermediate facility. Although pleasant, he does not remember when was the nephrostomy placed. He denies any trauma. While in the ED, patient was found to have abnormal UA. He has declined left upper extremity, however denies currently being on any antibiotics. She denies any chest pain or shortness of breath and is afebrile. A Consultation was placed to urology. DS: Summary Hospital Course: While in hospital, patient was treated for: Left-sided dislodged nephrostomy tube-Fixed CT abdomen with reviewed with finding of this large nephrostomy tube on the left side Urology consulted however requested interventional radiology consultation instead Repeat CT abdomen 07/21/18 with New left nephrostomy tube with decompression of the collecting system. Abnormal UA Initially started on IV antibiotics however with negative culture this was discontinued. C. difficile diarrhea C. difficile PCR positive Patient was started on vancomycin p.o. times 10 days Acute on chronic kidney disease stage III and IV Renal indices improved with gentle IV fluid hydration Hypotension Due to low BP, patient was started on Florinef and midodrine with monitoring of BP. Oral antihypertensive medication include Coreg is currently on hold Hyperkalemia Resolved History of seizure disorder and other chronic medical conditions Outpatient medications were resumed PT was consulted to treat and eval Bilateral SCDs were provided for DVT prophylaxis - Time Spent with Patient Total time spent providing and/or coordinating discharge services: Greater than 30 minutes - Quality: VTE Deep Vein Thrombosis/Pulmonary Embolism Present on Admission: No Exam Vital signs: Vital Signs 07/23/18 11:00 07/23/18 12:00 07/23/18 13:00 Temperature 98.0 F Pulse Rate 75 76 72 Respiratory Rate 18 Blood Pressure 96/80 L Pulse Oximetry 100 07/23/18 14:00 07/23/18 15:00 07/23/18 16:00 Temperature 98.0 F Pulse Rate 80 75 72 Respiratory Rate 18 Blood Pressure 97/68 L Pulse Oximetry 100 07/23/18 17:00 07/23/18 18:00 07/23/18 19:00 Temperature Pulse Rate 76 84 86 Respiratory Rate Blood Pressure Pulse Oximetry 07/23/18 20:00 07/23/18 21:00 07/23/18 22:00 Temperature 98.3 F Pulse Rate 88 79 81 Respiratory Rate 18 Blood Pressure 105/63 Pulse Oximetry 98 07/23/18 23:00 07/23/18 23:56 07/24/18 00:00 Temperature 98.1 F Pulse Rate 83 82 82 Respiratory Rate 18 Blood Pressure 108/65 Pulse Oximetry 97 07/24/18 01:00 07/24/18 02:00 07/24/18 03:00 Temperature Pulse Rate 79 81 79 Respiratory Rate Blood Pressure Pulse Oximetry 07/24/18 03:50 07/24/18 04:00 07/24/18 05:00 Temperature 97.8 F Pulse Rate 80 80 77 Respiratory Rate 18 Blood Pressure 143/99 H Pulse Oximetry 97 07/24/18 06:00 Temperature Pulse Rate 78 Respiratory Rate Blood Pressure Pulse Oximetry Intake & Output 07/23/18 07/24/18 07/24/18 18:59 06:59 18:59 Intake Total 2480 / 2480 Output Total 1210 / 1210 Balance 1270 / 1270 Weight 61.3 kg Intake: IV 1999 NS Inj 1,000 ML @ 70 mls/hr IV. 1999 CONT .[id number] [facility] Rx#:[id number] Oral 480 / 480 Output: Urine Amount (Stoma) 1210 / 1210 Continent Urostomy 500 / 500 Nephrostomy Tube Left 710 / 710 Other: Date of Last Bowel Movement 07/21/18 07/21/18 # Bowel Movements 1 Narrative: GENERAL: NAD SKIN: Warm and dry. HEAD: Atraumatic. Normocephalic. EYES: Pupils equal and round. No scleral icterus. No injection or drainage. ENT: No nasal bleeding or discharge. Mucous membranes pink and moist. NECK: Trachea midline. No JVD. CARDIOVASCULAR: Regular rate and rhythm. RESPIRATORY: No accessory muscle use. Clear to auscultation. Breath sounds equal bilaterally. GASTROINTESTINAL: Abdomen soft, non-tender, nondistended. Hepatic and splenic margins not palpable. nephrostomy tube in place. Urostomy tube in place MUSCULOSKELETAL: Extremities without clubbing, cyanosis, or edema. No obvious deformities. NEUROLOGICAL: Awake and alert. No obvious cranial nerve deficits. Motor grossly within normal limits. Five out of 5 muscle strength in the arms and legs. Normal speech. PSYCHIATRIC: Appropriate mood and affect; insight and judgment normal. Results Procedures completed during hospitalization: None Labs on day of discharge: Labs from last 24 hours 07/24/18 07/24/18 05:05 05:05 WBC 4.1 RBC 2.36 L Hgb 7.7 L Hct 22.5 L MCV 95.3 MCH 32.7 MCHC 34.3 RDW 15.2 Plt Count 193 MPV 8.7 Neut % (Auto) 42.4 Lymph % (Auto) 33.8 [place] % (Auto) 14.8 H Eos % (Auto) 8.3 H Baso % (Auto) 0.7 Neut # (Auto) 1.7 L Lymph # (Auto) 1.4 [place] # (Auto) 0.6 Eos # (Auto) 0.3 Baso # (Auto) 0.0 WBC Differential . Differential Comment Auto diff final Sodium 141 Potassium 4.7 D Chloride 114 H Carbon Dioxide 19.7 L Anion Gap 7 BUN 42 H Creatinine 1.81 H Estimated GFR 36 L Random Glucose 77 Calcium 8.0 L Total Bilirubin 0.2 AST 43 H ALT 52 Alkaline Phosphatase 114 Total Protein 6.3 L Albumin 2.4 L Preliminary micro results at discharge 07/19/18 03:41 Aerobic Blood Culture - Preliminary Blood - Peripheral No growth in 4 days Anaerobic Blood Culture - Preliminary No growth in 4 days 07/19/18 03:41 Aerobic Blood Culture - Preliminary Blood - Peripheral No growth in 4 days Anaerobic Blood Culture - Preliminary No growth in 4 days - Impressions ITS Impressions Nephrostomy Tube Change 07/19/18 00:00 CONCLUSION: 1. Uncomplicated placement of new left-sided 8 [place] nephrostomy catheter through this large nephrostomy tract. 2. Unsuccessful attempted placement of nephrostomy catheter through existing right-sided nephrostomy tract. This is presumed to be secondary to more chronic dislodgment of this catheter. Ultrasound evaluation demonstrates no significant hydronephrosis on the right at this time and therefore new catheter placement was deferred. Will reevaluate with CT examination in 24 to 48 hours. Chest X-Ray 07/19/18 03:23 CONCLUSION: No acute cardiopulmonary disease identified. Abdomen/Pelvis CT 07/21/18 00:00 CONCLUSION: 1. New left nephrostomy tube with decompression of the collecting system. 2. Stable bilateral renal calculi. 3. Large calcified gallstone. 4. Status post cystectomy and prostatectomy. 5. 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 Stable abdominal aortic aneurysm 7. Large amount retained stool in the rectosigmoid region Discharge Plan - Discharge Disposition Patient Disposition: Discharge to SNF - Discharge Condition Condition: Good - Discharge Order Discharge Orders: Discharge Order (Routine); Ordered 07/24/18 Ordered By: Kervin Bay - Physicians Team Primary Care Provider: Primary Care Dot Chavez Attending Provider: Kervin Bay Other Providers: Eliezer Gregorio MD ; [facility],[place]
[2018-07-25] MEDS: Sod Chloride 0.9% Inj 1,000 ML IV.CONT SCH (03:34)
[2018-07-25 09:10] VITALS: RESP 17; O2SAT 99
[2018-07-25] MEDS: Pilocarpine HCl 5 MG Tablet PO SCH (09:11)
[2018-07-25] MEDS: levETIRAcetam 500 MG Tablet PO SCH (09:11)
[2018-07-25] MEDS: Sodium Chloride 0.9% 2 ML Flush BID IV.FLUSH SCH (09:11)
[2018-07-25] MEDS: DRONABINOL 2.5 MG CAPSULE PO SCH ×2 (09:22→13:23)
--- NOTE | 2018-07-25 12:08 | P.PN ---
Subjective Interval history: Follow-up left-sided nephrostomy tube dislodged/C. difficile diarrhea/ hypotension July 25, 2018-patient seen and examined, remains stable in no acute event overnight. Afebrile. Discharge disposition pending. Physical Exam Vital signs: Vital Signs 07/24/18 15:00 07/24/18 16:00 07/24/18 19:00 Temperature 97.9 F Pulse Rate 83 72 81 Respiratory Rate 18 Blood Pressure 124/72 Pulse Oximetry 98 07/24/18 20:00 07/24/18 23:00 07/25/18 00:00 Temperature 97.7 F 98.1 F Pulse Rate 79 91 H 80 Respiratory Rate 20 16 Blood Pressure 97/68 L 102/62 Pulse Oximetry 98 99 07/25/18 03:00 07/25/18 04:00 07/25/18 09:09 Temperature 98.3 F 98 F Pulse Rate 90 77 88 Respiratory Rate 16 17 Blood Pressure 123/83 116/72 Pulse Oximetry 98 99 Intake & Output 07/24/18 07/25/18 07/25/18 18:59 06:59 18:59 Intake Total 1200 / 1200 1240 / 1240 Output Total 1600 / 1600 1025 / 1025 500 / 500 Balance -400 / -400 215 / 215 -500 / -500 Weight 61.2 kg Intake: IV 1000 / 1000 NS Inj 1,000 ML @ 70 mls/hr IV. 1000 / 1000 CONT .[id number] [facility] Rx#:[id number] Oral 1200 / 1200 240 / 240 Output: Urine Amount (Stoma) 1600 / 1600 1025 / 1025 500 / 500 Continent Urostomy 400 / 400 225 / 225 500 / 500 Nephrostomy Tube Left 1200 / 1200 800 / 800 Other: Date of Last Bowel Movement 07/24/18 07/25/18 07/24/18 Narrative: GENERAL: NAD SKIN: Warm and dry. HEAD: Atraumatic. Normocephalic. EYES: Pupils equal and round. No scleral icterus. No injection or drainage. ENT: No nasal bleeding or discharge. Mucous membranes pink and moist. NECK: Trachea midline. No JVD. CARDIOVASCULAR: Regular rate and rhythm. RESPIRATORY: No accessory muscle use. Clear to auscultation. Breath sounds equal bilaterally. GASTROINTESTINAL: Abdomen soft, non-tender, nondistended. Hepatic and splenic margins not palpable. nephrostomy tube in place. Urostomy bag in place MUSCULOSKELETAL: Extremities without clubbing, cyanosis, or edema. No obvious deformities. NEUROLOGICAL: Awake and alert. No obvious cranial nerve deficits. Motor grossly within normal limits. Five out of 5 muscle strength in the arms and legs. Normal speech. PSYCHIATRIC: Appropriate mood and affect; insight and judgment normal. Results - Labs CBC & Chem 7: 07/24/18 05:05 07/24/18 05:05 Microbiology 07/19/18 03:41 Blood - Peripheral Aerobic Blood Culture - Final No growth in 5 days 07/19/18 03:41 Blood - Peripheral Anaerobic Blood Culture - Final No growth in 5 days 07/19/18 03:41 Blood - Peripheral Aerobic Blood Culture - Final No growth in 5 days 07/19/18 03:41 Blood - Peripheral Anaerobic Blood Culture - Final No growth in 5 days - Procedures None Assessment and Plan - Plan 78-year-old man with Left-sided dislodged nephrostomy tube-Fixed CT abdomen with reviewed with finding of this large nephrostomy tube on the left side Urology consulted however requested interventional radiology consultation instead Repeat CT abdomen 07/21/18 with New left nephrostomy tube with decompression of the collecting system. Abnormal UA Urine culture negative, s/p Rocephin 07/21 C. difficile diarrhea C. difficile PCR positive Currently on vancomycin p.o. times 10 days Acute on chronic kidney disease stage III and IV Continue gentle IV fluid hydration and monitor BUN and creatinine Nephrology consultation as needed Hypotension-Resolved Continue hold oral antihypertensive medication Continue Florinef and midodrine 5 mg 3 times daily Continue Gentle IV fluid hydration Hyperkalemia Resolved History of seizure disorder and other chronic medical conditions Continue outpatient medications PT to treat and eval
[2018-07-25 13:22] VITALS: BP 113/66; PULSE 84; TEMP 98.3
== END 2018-07-25 16:46 ==
LOC: NEPC 03:06 → NEDA 05:45 → INTOOBSV 05:45 → HCIS 07:21
PROVIDERS: ADMIT Hospitalist; ATTEND Hospitalist

== ENCOUNTER 2018-08-17 01:49 | Inpatient (IN) ==
[2018-08-17] MEDS ORDERED: Sod Chloride 0.9% Inj 1,000 ML IV.SIG SCH ×2 (02:15→04:15)
--- NOTE | 2018-08-17 02:31 | ED ---
HPI General Chief Complaint: Fever Stated Complaint: Medical Time Seen by Provider: 08/17/18 01:53 Source: patient and old records reviewed Mode of arrival: EMS Limitations: altered mental status (dementia) History of Present Illness HPI Narrative: 78 M [facility]IBEMS 2[facility]. BP at [place] 60/40 with EMS reports in the 70/50 range with HR in 100-110. + Tactile fever per staff. Severity moderate. Timing constant. Pt denies CP/SOB. No chest pain, n/v. + Diarrhea over the past few days per patient. PMH include COPD, CKD IV, atrial fibrillation, hx parotid, HLD, prostate CA. Hx urostomy with R abdomen urine stoma. Related Data Home Medications Medication Instructions Recorded Confirmed pilocarpine HCl 5 mg PO BID 05/15/18 08/17/18 acetaminophen 650 mg PO Q4H PRN 07/10/18 08/17/18 Saccharomyces boulardii 250 mg PO BID 08/17/18 08/17/18 lactulose 15 ml PO DAILY PRN 08/17/18 08/17/18 nitrofurantoin monohyd/m-cryst 100 mg PO BID 08/17/18 08/17/18 Previous Rx's Medication Instructions Recorded multivitamin with folic acid 1 tab PO DAILY tab 05/10/18 [Thera] dronabinol 2.5 mg PO AC LUNCH #30 cap 06/09/18 dronabinol [Marinol] 2.5 mg PO AC BREAKFAST #30 cap 06/09/18 ipratropium-albuterol 1 amp NEB Q4HR NEB PRN ml 06/09/18 levetiracetam [Keppra] 500 mg PO BID #60 tab 06/23/18 fludrocortisone 0.1 mg PO DAILY #10 tab 07/24/18 midodrine 5 mg PO TID@0700,1200,1700 #30 tab 07/24/18 metronidazole [Flagyl] 500 mg PO TID #30 tab 07/25/18 Allergies Allergy/AdvReac Type Severity Reaction Status Date / Time crab Allergy Intermediate Rash Verified 08/17/18 01:55 Review of Systems ROS: all other systems reviewed are negative [facility] Social History Social History Substance History: No History of Abuse Second Hand Smoke Exposure: No Smoking Status: Former smoker How Often Do You Have a Drink Containing Alcohol: Never Recent Travel in [facility] within the Last 8 Weeks: No Recent Out of Country Travel within the Last 8 Weeks: No Immunization History Tetanus Immunization: Unsure Exam Narrative Exam Narrative: GENERAL: 78 yo M, elderly, thin, awake and alert SKIN: Focused skin assessment warm/dry. HEAD: Atraumatic. Normocephalic. EYES: Pupils equal and round. No scleral icterus. No injection or drainage. ENT: No nasal bleeding or discharge. Mucous membranes pink and moist. NECK: Trachea midline. No JVD. CARDIOVASCULAR: Regular rate and rhythm. No murmur appreciated. RESPIRATORY: No accessory muscle use. Clear to auscultation. Breath sounds equal bilaterally. GASTROINTESTINAL: Soft. Urostomy R abdomen. Cloudy yellow urine in urostomy bag. MUSCULOSKELETAL: No obvious deformities. No clubbing. No cyanosis. No edema. NEUROLOGICAL: Awake alert. Recent memory is impaired. No focal CN deficit. No motor deficit. PSYCHIATRIC: Appropriate mood and affect; insight and judgment normal. Course Initial Documented Vital Signs Temperature 98.1 F 08/17/18 01:56 Pulse Rate 106 H 08/17/18 01:56 Respiratory Rate 19 08/17/18 01:56 Blood Pressure 75/52 L 08/17/18 01:56 Pulse Oximetry 100 08/17/18 01:56 Last Documented Vital Signs Temperature 98.1 F 08/17/18 01:56 Pulse Rate 98 H 08/17/18 02:02 Respiratory Rate 13 08/17/18 02:02 Blood Pressure 68/41 L 08/17/18 02:02 Pulse Oximetry 98 08/17/18 02:07 Critical Care Time Critical Care Time: Yes Total Critical Care Time: 35 Attestation: Aggregate critical care time was 35 minutes. Time to perform other separately billable procedures was not included in the critical care time. My time did not include minutes spent treating any other patients simultaneously or on activities that did not directly contribute to the patient's treatment. The services I provided to this patient were to treat and/or prevent clinically significant deterioration that could result in: septic shock, cardiopulmonary arrest I provided critical care services requiring my management, as noted below: Chart data review, documentation time, medication orders and management, vital sign assessments/reviewing monitor data, ordering and reviewing lab tests, ordering and interpreting/reviewing x-rays and diagnostic studies, care of the patient and discussion of the patient with the admitting physicians. Medical Decision Making MDM Narrative Medical decision making narrative: WBC 26.5 Hb 9.6 up from 7.7 from approx one month prior K+ 5.3 BUN/Cr 53/2.8 up from 42/1.81 from one month prior Lactic acid 2.7 Tn 0.06 considered non-specific in setting of acute on chronic renal insufficiency EKG atrial fibrillation approximately 110, no ST elevations/depression Pt has sepsis 2/2 UTI. Zosyn started. Bp increased to 105/70 after 1L NS. HR approx 100-110. Second 1L NS bolus ordered. Pt is without acute distress in ED. Potential for deterioration in setting of septic state, will place in [facility]. CT ab/pelvis pending at time of admission. d/w Mimi Vazquez, [place], for Dr Villa, [facility]. Medical Screen Exam Complete: Yes Emergency Medical Condition: Yes Lab Data Result diagrams: 08/17/18 03:15 08/17/18 03:15 Lab Results 08/17/18 08/17/18 08/17/18 Range/Units 03:15 03:15 03:15 WBC 26.5 H (4.0-11.0) th/mm3 RBC 3.01 L (4.50-5.90) mil/mm3 Hgb 9.6 L (13.0-17.0) gm/dL Hct 28.9 L (39.0-51.0) % MCV 96.0 (80.0-100.0) fL MCH 31.8 (27.0-34.0) pg MCHC 33.1 (32.0-36.0) % RDW 14.4 (11.6-17.2) % Plt Count 233 (150-450) th/mm3 MPV 8.4 (7.0-11.0) fL Prelim Diff (Auto) Slide review pending Neut % (Auto) 85.5 H (16.0-70.0) % Lymph % (Auto) 4.0 L (9.0-44.0) % [place] % (Auto) 10.3 H (0.0-8.0) % Eos % (Auto) 0.0 (0.0-4.0) % Baso % (Auto) 0.2 (0.0-2.0) % Neut # (Auto) 22.7 H (1.8-7.7) th/mm3 Lymph # (Auto) 1.1 (1.0-4.8) th/mm3 [place] # (Auto) 2.7 H (0.0-0.9) th/mm3 Eos # (Auto) 0.0 (0.0-0.4) th/mm3 Baso # (Auto) 0.1 (0.0-0.2) th/mm3 WBC Differential . Diff Scan Auto diff confirmed Differential Comment . Platelet Estimate Normal (Normal) Platelet Morphology Normal (Normal) RBC Morphology Normal (Normal) Sodium 136 (136-145) meq/L Potassium 5.3 H (3.5-5.1) meq/L Chloride 103 (98-107) meq/L Carbon Dioxide 24.3 (21.0-32.0) meq/L Anion Gap 9 (5-15) meq/L BUN 53 H (7-18) mg/dL Creatinine 2.80 H (0.60-1.30) mg/dL Estimated GFR 22 L (>89) mL/min Random Glucose 119 H (74-106) mg/dL Lactic Acid 2.7 H (0.4-2.0) mmol/L Calcium 8.1 L (8.5-10.1) mg/dL Magnesium 1.8 (1.5-2.5) mg/dL Total Bilirubin 0.5 (0.2-1.0) mg/dL AST 30 (15-37) U/L ALT 49 (12-78) U/L Alkaline Phosphatase 133 H (45-117) U/L Troponin I 0.06 H (0.02-0.05) ng/mL B-Natriuretic Peptide (0-100) pg/mL Total Protein 7.5 (6.4-8.2) g/dL Albumin 3.2 L (3.4-5.0) g/dL Urine Color (Yellw/Straw) Urine Clarity (Clear) Urine pH (5.0-8.5) Ur Specific [place] (1.002-1.035) Urine Protein (Neg-Trace) mg/dL Urine Glucose (UA) (Negative) mg/dL Urine Ketones (Negative) mg/dL Urine Occult Blood (Negative) Urine Nitrate (Negative) Urine Bilirubin (Negative) Urine Urobilinogen (Less than 2) mg/dL Ur Leukocyte Esterase (Negative) Urine RBC (0-3) /hpf Urine WBC (0-5) /hpf Ur Squamous Epith Cells (0-5) /hpf Amorphous Sediment (None) /hpf Urine Bacteria (None) /hpf Micro UA Comment Ur Microscopic Review Urine Culture Comments 08/17/18 08/17/18 Range/Units 03:15 03:15 WBC (4.0-11.0) th/mm3 RBC (4.50-5.90) mil/mm3 Hgb (13.0-17.0) gm/dL Hct (39.0-51.0) % MCV (80.0-100.0) fL MCH (27.0-34.0) pg MCHC (32.0-36.0) % RDW (11.6-17.2) % Plt Count (150-450) th/mm3 MPV (7.0-11.0) fL Prelim Diff (Auto) Neut % (Auto) (16.0-70.0) % Lymph % (Auto) (9.0-44.0) % [place] % (Auto) (0.0-8.0) % Eos % (Auto) (0.0-4.0) % Baso % (Auto) (0.0-2.0) % Neut # (Auto) (1.8-7.7) th/mm3 Lymph # (Auto) (1.0-4.8) th/mm3 [place] # (Auto) (0.0-0.9) th/mm3 Eos # (Auto) (0.0-0.4) th/mm3 Baso # (Auto) (0.0-0.2) th/mm3 WBC Differential Diff Scan Differential Comment Platelet Estimate (Normal) Platelet Morphology (Normal) RBC Morphology (Normal) Sodium (136-145) meq/L Potassium (3.5-5.1) meq/L Chloride (98-107) meq/L Carbon Dioxide (21.0-32.0) meq/L Anion Gap (5-15) meq/L BUN (7-18) mg/dL Creatinine (0.60-1.30) mg/dL Estimated GFR (>89) mL/min Random Glucose (74-106) mg/dL Lactic Acid (0.4-2.0) mmol/L Calcium (8.5-10.1) mg/dL Magnesium (1.5-2.5) mg/dL Total Bilirubin (0.2-1.0) mg/dL AST (15-37) U/L ALT (12-78) U/L Alkaline Phosphatase (45-117) U/L Troponin I (0.02-0.05) ng/mL B-Natriuretic Peptide 454 H (0-100) pg/mL Total Protein (6.4-8.2) g/dL Albumin (3.4-5.0) g/dL Urine Color Yellow (Yellw/Straw) Urine Clarity Cloudy H (Clear) Urine pH 7.0 (5.0-8.5) Ur Specific [place] 1.009 (1.002-1.035) Urine Protein 100 H (Neg-Trace) mg/dL Urine Glucose (UA) Negative (Negative) mg/dL Urine Ketones Negative (Negative) mg/dL Urine Occult Blood Negative (Negative) Urine Nitrate Negative (Negative) Urine Bilirubin Negative (Negative) Urine Urobilinogen Less than 2 (Less than 2) mg/dL Ur Leukocyte Esterase Large H (Negative) Urine RBC 5 H (0-3) /hpf Urine WBC 68 H (0-5) /hpf Ur Squamous Epith Cells <1 (0-5) /hpf Amorphous Sediment Occasional H (None) /hpf Urine Bacteria Many H (None) /hpf Micro UA Comment Cath-culture ind Ur Microscopic Review Not Reportable Urine Culture Comments Cath-cult indicated Imaging Data Radiologist's impression: Chest X-Ray 08/17/18 02:07 CONCLUSION: The lungs are clear. Discharge Plan Discharge Disposition Patient Disposition: ED Admit(ED Internal Use Only) Discharge Order Discharge Orders: ED Use Only Admit Order (Routine); Ordered 08/17/18 Ordered By: [place] Physicians Team ED Provider: [place] Primary Care Provider: Primary Care Ishi,Dot Attending Provider: Lissetet Villa Status ED Status: Admitted Patient
--- NOTE | 2018-08-17 03:07 | XR ---
EXAM DATE: 08/17/2018 3:03 AM EST AGE/SEX: 78 years / Male INDICATIONS: Shortness of breath. CLINICAL DATA: This is the patient's initial encounter. Patient reports that signs and symptoms have been present for 1 day and indicates a pain score of 0/10. MEDICAL/SURGICAL HISTORY: . Renal disease. Chronic obstructive pulmonary disease. Hypertension. Kidney stones. Prostate cancer. None. [place] [facility] [place]. . FINDINGS: A single AP view of the chest demonstrates the lungs to be symmetrically aerated without evidence of mass, infiltrate or effusion. The cardiomediastinal contours are unremarkable. Osseous structures a re intact. CONCLUSION: The lungs are clear. Electronically signed by: Juan Pablo Adamson MD Board Certified Radiologist 08/17/2018 3:06 AM EST
[2018-08-17 03:31] LABS: Baso # (Auto) 0.1 th/mm3 (0.0-0.2); Baso % (Auto) 0.2 % (0.0-2.0); Hematocrit 28.9 % (39.0-51.0); Hemoglobin 9.6 gm/dL (13.0-17.0); Lymph # (Auto) 1.1 th/mm3 (1.0-4.8); Mean Corpuscular HGB Conc 33.1 % (32.0-36.0); Mean Corpuscular Hemoglobin 31.8 pg (27.0-34.0); Mean Platelet Volume 8.4 fL (7.0-11.0); Mono # (Auto) 2.7 th/mm3 (0.0-0.9); Mono % (Auto) 10.3 % (0.0-8.0); Neut # (Auto) 22.7 th/mm3 (1.8-7.7); Neut % (Auto) 85.5 % (16.0-70.0); Platelet Count 233 th/mm3 (150-450); Red Blood Count 3.01 mil/mm3 (4.50-5.90); Red Cell Distribution Width 14.4 % (11.6-17.2); White Blood Count 26.5 th/mm3 (4.0-11.0)
[2018-08-17 03:38] LABS: Amorphous Sediment,Urine Occasional /hpf; Bacteria,Urine Many /hpf; Bilirubin,Urine Negative (Negative); Clarity,Urine Cloudy (Clear); Color,Urine Yellow (Yellw/Straw); Glucose,Urine (UA) Negative (Negative); Leukocyte Esterase,Urine Large (Negative); Nitrite,Urine Negative (Negative); Specific Gravity,Urine 1.009 (1.002-1.035); Squamous Epithelial Cell,Urine <1 /hpf (0-5)
[2018-08-17] MEDS ORDERED: Piperacil/Tazo 3.375 GM Premix 3.375 GM/50 ML PIGGYBACK IV.SIG ONE (03:53)
[2018-08-17 03:58] LABS: Alanine Aminotransferase 49 U/L (12-78); Albumin 3.2 g/dL (3.4-5.0); Anion Gap 9 meq/L (5-15); Aspartate Aminotransferase 30 U/L (15-37); Blood Urea Nitrogen 53 mg/dL (7-18); Calcium 8.1 mg/dL (8.5-10.1); Carbon Dioxide 24.3 meq/L (21.0-32.0); Chloride 103 meq/L (98-107); Glomerular Filtration Rate 22 mL/min (>89); Glucose,Random 119 mg/dL (74-106); Magnesium 1.8 mg/dL (1.5-2.5); Potassium 5.3 meq/L (3.5-5.1); Sodium 136 meq/L (136-145)
[2018-08-17 04:02] LABS: Alkaline Phosphatase 133 U/L (45-117); Total Protein 7.5 g/dL (6.4-8.2); Troponin I 0.06 ng/mL (0.02-0.05)
[2018-08-17 04:23] LABS: Platelet Estimate Normal (Normal); Platelet Morphology Normal (Normal); RBC Morphology Normal (Normal)
[2018-08-17] MEDS ORDERED: Bisacodyl 10 MG Supp RECTAL PRN (04:31)
[2018-08-17] MEDS ORDERED: Acetaminophen 325 MG Tablet PO PRN (04:31)
--- NOTE | 2018-08-17 05:09 | CT ---
EXAM DATE: 08/17/2018 4:56 AM EST AGE/SEX: 78 years / Male INDICATIONS: Diffuse abdominal pain. CLINICAL DATA: This is the patient's initial encounter. Patient reports that signs and symptoms have been present for 1 day and indicates a pain score of 8/10. MEDICAL/SURGICAL HISTORY: Renal failure, chronic. Carcinoma, bladder. Carcinoma, pharyngeal. AFIB. Seizures. Renal calculi. Nephrostomy tube, left. Nephrostomy tube, right. Urostomy. RADIATION DOSE: 7.77 CTDI (mGy) COMPARISON: [facility] [place]EL[place]/O CONTRAST, 07/21/2018. . TECHNIQUE: Multiple contiguous axial images were obtained through the abdomen. Images were obtained using multiple row detector helical technique. Using automated exposure control and adjustment of the mA and/or kV according to patient size, radiation dose was kept as low as reasonably achievable to o btain optimal diagnostic quality images. DICOM format image data is available electronically for rev iew and comparison. FINDINGS: Lower Lungs: The visualized lower lungs are clear. Liver: The liver has a homogeneous density without space-occupying lesion for noncontrast technique. There is no dilation of the biliary tree. Multiple calcified gallstones, similar to prior. Spleen: Homogeneous density without enlargement. Pancreas: Unremarkable without mass or calcification. Right kidney: No evidence of hydronephrosis. Multiple calcified renal stones, including a 1.2 cm den sely calcified stone in the renal pelvis, similar to prior. Left kidney: Double-J stent courses from the renal pelvis to small bowel in the right lower quadrant. There is moderately severe dilation of the collecting system and ureter which is a new finding from the prior examination. Multiple dense calcifications in the renal parenchyma measuring up to 1.3 cm, stable. Adrenal Glands: Unremarkable. Aorta: Stable mid abdominal aortic aneurysm measuring 3.5 cm. Bowel/Mesentery: No dilated loops of small or large bowel. Ileostomy in the right mid and lower abdo merced wall. Anastomosis suture in the right lower quadrant. Abdominal Wall: Intact. Retroperitoneum: No evidence of adenopathy in the retrocrural, para-aortic, or deep pelvic regions. Bladder: Cystectomy Reproductive Organs: No abnormal masses or calcifications seen. Inguinal: The inguinal region is unremarkable without evidence of adenopathy. Bony Structures: Unremarkable. CONCLUSION: 1. Interval development of dilation of the left renal collecting system and ureter with double J fabrizio nt coursing from the collecting system into the diverting bowel loop right lower quadrant. 2. Stable bilateral renal calcifications including right renal pelvis. 3. Stable gallstones. 4. Stable mid abdominal aortic aneurysm measuring 3.5 cm. Electronically signed by: Juan Pablo Adamson MD Board Certified Radiologist 08/17/2018 5:07 AM EST
[2018-08-17] MEDS: Heparin - SQ 10,000 UNITS/ML Vial SQ SCH ×3 (05:19→20:32)
[2018-08-17] MEDS: Sod Chloride 0.9% Inj 1,000 ML IV.CONT SCH ×2 (05:55→16:04)
[2018-08-17] MEDS ORDERED: Sod Chloride 0.9% Inj 1,000 ML IV.SIG ONE ×2 (08:00→08:35)
[2018-08-17] MEDS ORDERED: Vancomycin Consult Pharmacy OTHER PRN (08:35)
[2018-08-17] MEDS ORDERED: Vancomycin Inj 1,000 MG in Sodium Chlor 0.9% Inj 250 ML IV.SIG ONE (09:00)
--- NOTE | 2018-08-17 09:02 | P.HPCC ---
History of Present Illness Service: [facility] Primary Care Physician: No Primary Care Physician Chief Complaint: Sepsis History of Present Illness: 78yM who presented to the ED overnight for recurrent sepsis. The patient lives in a nursing facility and was noted to be hypotensive, tachycardic, with tactile fevers for the past day. He was seen in the emergency department and found to have leukocytosis (26K), hypotension/ tachycardia (BP 70s/50s, HR 100s on arrival), with UTI and CT scan showing obstructive uropathy of his previous RLQ urostomy. The patient was started on zosyn and admitted initially to the hospitalist service. He was given 2L of IV fluids but remained hypotensive, lactic acid persistently elevated, and critical care was requested to resume his care. The patient has a history of urostomy with multiple admissions for complications thereof and urosepsis in the past year (most recently in 06/2018) ; he has also had recurrent C diff and recurrent acute kidney injury. He reports that he lives in a mcc, is able to ambulate with a walker, and is independent of most ADLs at baseline. Inpatient Certification: I certify that the inpatient services were ordered in accordance with Medicare regulations governing the order. This includes certification that hospital inpatient services are reasonable and necessary and in the case of services not specified as inpatient-only under 42 CFR 419.22(n), that they are appropriately provided as inpatient services in accordance to with the 2-midnight benchmark under 43 CFR 412.3(e) Estimated Total Length of Stay (Days): 7 Plans for Post Hospital Care: SNF Review of Systems All other systems reviewed negative except as stated in HPI Constitutional: Reports chills, Reports fever(s) Cardiovascular: Denies chest pain Respiratory: Denies cough, Denies shortness of breath Gastrointestinal: Denies abdominal pain, Denies vomiting Comments: Chronic diarrhea Comments: Urostomy present, reports no change in output Musculoskeletal: Reports body aches Neurologic: Denies confusion Psychiatric: Denies confusion PMFSH - History History Provided By: Patient - Medical History Medical History: Medical History (Last Reviewed 08/17/18 @ 09:07 by Courtney Barrera DO) Atrial fibrillation Anticoagulant long-term use COPD (chronic obstructive pulmonary disease) Chronic kidney disease, stage IV (severe) Essential hypertension H/O reduction of nasal fracture History of Clostridium difficile infection History of MRSA infection Hyperlipidemia Kidney stones MDRO (multiple drug resistant organisms) resistance Onset Date: ~06/17/18 Nasal bones, closed fracture Nasal fracture Open left femoral fracture Prostate cancer Subdural hematoma UTI (urinary tract infection) VRE carrier Hypotension Intertrochanteric fracture of left hip Parotid mass - Surgical History Surgical History: Surgical History (Last Reviewed 08/17/18 @ 08:21 by Courtney Barrera DO) History of parotidectomy History of urostomy Hx of nephrostomy Nephrostomy status - Family History Family History: Family History (Last Reviewed 08/17/18 @ 08:21 by Courtney Barrera DO) Father Coronary artery disease Other Osteoarthritis - Social History I have reviewed the patient's Social History: Yes - Tobacco History Second Hand Smoke Exposure: No Tobacco Use In Past 30 Days: No Smoking Status: Former smoker - Alcohol History How Often Do You Have a Drink Containing Alcohol: Never - Substance Use History Substance History: No History of Abuse - Travel History Recent Travel in the [place] Within the Last 8 Weeks: No Recent Travel Out of the Country Within the Last 8 Weeks: No - Immunization History Tetanus Immunization: Unsure Medications and Allergies Active Medications: Active Medications Acetaminophen (Tylenol) 650 mg PO Q4H PRN PRN Reason: Temp > 100.4 Al Hydroxide/Mg Hydroxide (Milk Of Magnesia Liq) 30 ml PO Q12H PRN PRN Reason: Mild Constipation Albuterol (Duoneb Neb (Prn)) 1 ampul NEB Q2HR NEB PRN PRN Reason: WHEEZING Albuterol (Duoneb Neb (Travis)) 1 ampul NEB Q4HR NEB TRAVIS Bisacodyl (Dulcolax Supp) 10 mg RECTAL DAILY PRN PRN Reason: SEVERE CONSITIPATION Chlorhexidine Gluconate (Chlorhexidine 2% Cloth) 3 pack TOPICAL DAILY@0400 TRAVIS Stop: 08/23/18 03:59 Chlorhexidine Gluconate (Chlorhexidine 2% Cloth) 3 pack TOPICAL DAILY@0400 PRN PRN Reason: Extra cloth needed Stop: 08/23/18 03:59 Famotidine (Pepcid) 20 mg PO BID [facility] Famotidine (Pepcid Pf Inj) 20 mg IV.PUSH Q12HR [facility] Fludrocortisone Acetate (Florinef) 0.1 mg PO DAILY [facility] Heparin Sodium (Porcine) (Heparin Inj) 5,000 units SQ Q8H TRAVIS Last Admin: 08/17/18 05:19 Dose: 5,000 units Sodium Chloride (Ns Inj) 1,000 mls @ 0 mls/hr IV.SIG .Q0M [facility] Last Infusion: 08/17/18 03:15 Dose: Infused Piperacillin/Tazobactam/Dextrose (Zosyn 2.25 Gm Premix) 2.25 gm in 50 mls @ 100 mls/hr IV.SIG Q6H [facility] Sodium Chloride (Ns Inj) 1,000 mls @ 100 mls/hr IV.CONT .Q10H [facility] Last Admin: 08/17/18 05:55 Dose: 100 mls/hr Vancomycin HCl 1,000 mg/ (Sodium Chloride) 250 mls @ 250 mls/hr IV.SIG ONCE ONE Stop: 08/17/18 09:59 Lactulose (Lactulose Liq) 30 ml PO DAILY PRN PRN Reason: SEVERE CONSITIPATION Levetiracetam (Keppra) 500 mg PO BID [facility] Midodrine (Proamatine) 5 mg PO TID@0700,1200,1700 [facility] Ondansetron HCl (Zofran Inj) 4 mg IV.PUSH Q6H PRN PRN Reason: NAUSEA OR VOMITING Pharmacy Profile Note (Vancomycin Consult Pharmacy) 1 each OTHER UNSCH PRN PRN Reason: Pharmacy to dose Senna/Docusate Sodium (Maggi-Colace) 1 tab PO BID [facility] Sennosides (Senokot) 17.2 mg PO Q12H PRN PRN Reason: Moderate Constipation Sodium Chloride (Ns Flush) 2 ml IV.FLUSH PRN PRN PRN Reason: FLUSH AFTER USING IV ACCESS Sodium Chloride (Ns Flush) 2 ml IV.FLUSH BID [facility] Allergies Allergy/AdvReac Type Severity Reaction Status Date / Time crab Allergy Intermediate Rash Verified 08/17/18 01:55 Home Medications Medication Instructions Recorded Confirmed Type pilocarpine HCl 5 mg PO BID 05/15/18 08/17/18 History acetaminophen 650 mg PO Q4H PRN 07/10/18 08/17/18 History Saccharomyces boulardii 250 mg PO BID 08/17/18 08/17/18 History lactulose 15 ml PO DAILY PRN 08/17/18 08/17/18 History nitrofurantoin monohyd/m-cryst 100 mg PO BID 08/17/18 08/17/18 History Results - Labs CBC & Chem 7: 08/17/18 03:15 08/17/18 03:15 Labs: Short CBC 08/17/18 Range/Units 03:15 WBC 26.5 H (4.0-11.0) th/mm3 Hgb 9.6 L (13.0-17.0) gm/dL Hct 28.9 L (39.0-51.0) % Plt Count 233 (150-450) th/mm3 BMP 08/17/18 03:15 Sodium 136 Potassium 5.3 H Chloride 103 Carbon Dioxide 24.3 BUN 53 H Creatinine 2.80 H Calcium 8.1 L Cardiac Enzymes 08/17/18 Range/Units 03:15 Troponin I 0.06 H (0.02-0.05) ng/mL Liver Function 08/17/18 Range/Units 03:15 Total Bilirubin 0.5 (0.2-1.0) mg/dL AST 30 (15-37) U/L ALT 49 (12-78) U/L Alkaline Phosphatase 133 H (45-117) U/L Albumin 3.2 L (3.4-5.0) g/dL Urine 08/17/18 Range/Units 03:15 Urine Color Yellow (Yellw/Straw) Urine Clarity Cloudy H (Clear) Urine pH 7.0 (5.0-8.5) Ur Specific [place] 1.009 (1.002-1.035) Urine Protein 100 H (Neg-Trace) mg/dL Urine Glucose (UA) Negative (Negative) mg/dL - Imaging Impressions Chest X-Ray 08/17/18 02:07 CONCLUSION: The lungs are clear. Abdomen/Pelvis CT 08/17/18 02:08 CONCLUSION: 1. Interval development of dilation of the left renal collecting system and ureter with double J stent coursing from the collecting system into the diverting bowel loop right lower quadrant. 2. Stable bilateral renal calcifications including right renal pelvis. 3. Stable gallstones. 4. Stable mid abdominal aortic aneurysm measuring 3.5 cm. - ECG Attestation: I personally reviewed and interpreted this ECG as follows: Interpretation: Rate: 75-150 BPM, overall rate around 100 BPM Rhythm: Atrial fibrillation [place]: Normal Intervals: Normal intervals, no blocks, QTc 416 ms Q waves: aVL T waves: Upright, no inversions ST segments: No elevations or depressions Impression: Atrial fibrillation, borderline RVR, no significant changes as compared to EKG from 07/19/2018. Exam Vital signs: Vital Signs 08/17/18 01:56 08/17/18 02:00 08/17/18 02:02 Temperature 98.1 F Pulse Rate 106 H 106 H 98 H Respiratory Rate 19 13 Blood Pressure 75/52 L 68/41 L Pulse Oximetry 100 98 08/17/18 02:07 08/17/18 05:00 08/17/18 05:16 Temperature 97.7 F Pulse Rate 108 H Respiratory Rate 30 H Blood Pressure 133/72 Pulse Oximetry 98 96 96 08/17/18 05:46 08/17/18 05:47 08/17/18 06:00 Temperature 98.6 F Pulse Rate 126 H 116 H Respiratory Rate 20 15 16 Blood Pressure 140/61 118/61 Pulse Oximetry 99 08/17/18 07:00 08/17/18 08:00 08/17/18 08:01 Temperature 100.1 F H Pulse Rate 126 H 116 H 119 H Respiratory Rate 16 15 29 H Blood Pressure 114/57 L 80/51 L 90/58 L Pulse Oximetry 97 96 96 Intake & Output 08/16/18 08/17/18 08/17/18 18:59 06:59 18:59 Intake Total 2049 Output Total 200 / 200 Balance 1849 Weight 63.5 kg Intake: IV 2049 Zosyn 3.375 GM Premix 3.375 gm 50 / 50 In 50 ml @ 100 mls/hr IV.SIG ONCE ONE Rx#:[id number] NS Inj 1,000 ML @ 1000 mls/hr 1999 IV.SIG BOLUS TRAVIS Rx#:[id number] Output: Urine Amount (Stoma) 200 / 200 Pre-Hospital: Continent 200 / 200 Urostomy Right Other: Weight On Admission 63.5 kg Narrative: GEN: Elderly male, frail, lying in bed in no acute distress HEENT: NCAT, PERRL, mucosa dry NECK: Trachea midline CARDIO: Irregularly irregular, 100s-120s on cardiac rehabilitation specialist, MAP currently 68 PULM: Clear to auscultation bilaterally ABD/GI: Soft, non-tender in all quadrants, non-distended, urostomy present in RLQ draining clear urine EXT/MSK: No peripheral edema SKIN: Warm and dry NEURO: Awake and alert, answers all questions appropriately, does not appear to be confused, moves all extremities PSYCH: Appropriate affect Septic Shock Reassessment Septic shock perfusion: reassessment completed Caprini VTE Risk Assessment Caprini VTE Risk Assessment: Moderate/High Risk (score >= 2) Caprini Risk Assessment Model: Point Value = 1 Point Value = 2 Point Value = 3 Point Value = 5 Age 41-60 Minor surgery BMI > 25 kg/m2 Swollen legs Varicose veins or History of unexplained or recurrent spontaneous Oral contraceptives or hormone replacement Sepsis (< 1 month) Serious lung disease, including pneumonia (< 1 month) Abnormal pulmonary function Acute myocardial infarction Congestive heart failure (< 1 month) History of inflammatory bowel disease Medical patient at bed rest Age 61-74 Arthroscopic surgery Major open surgery (> 45 min) Laparoscopic surgery (> 45 min) Malignancy Confined to bed (> 72 hours) Immobilizing plaster cast Central venous access Age >= 75 History of VTE Family history of VTE Factor V Leiden Prothrombin [id number] Lupus anticoagulant Anticardiolipin antibodies Elevated serum homocysteine Heparin-induced thrombocytopenia Other congenital or acquired thrombophilia Stroke (< 1 month) Elective arthroplasty Hip, pelvis, or leg fracture Acute spinal cord injury (< 1 month) Prophylaxis Regimen: Total Risk Factor Score Risk Level Prophylaxis Regimen 0-1 Low Early ambulation 2 Moderate Order ONE of the following: *Sequential Compression Device (SCD) *Heparin 5000 units SQ BID 3-4 Higher Order ONE of the following medications: *Heparin 5000 units SQ TID *Enoxaparin/Lovenox 40 mg SQ daily (WT < 150 kg, CrCl > 30 mL/min) *Enoxaparin/Lovenox 30 mg SQ daily (WT < 150 kg, CrCl > 10-29 mL/min) *Enoxaparin/Lovenox 30 mg SQ BID (WT < 150 kg, CrCl > 30 mL/min) AND/OR *Sequential Compression Device (SCD) 5 or more Highest Order ONE of the following medications: *Heparin 5000 units SQ TID (Preferred with Epidurals) *Enoxaparin/Lovenox 40 mg SQ daily (WT < 150 kg, CrCl > 30 mL/min) *Enoxaparin/Lovenox 30 mg SQ daily (WT < 150 kg, CrCl > 10-29 mL/min) *Enoxaparin/Lovenox 30 mg SQ BID (WT < 150 kg, CrCl > 30 mL/min) AND *Sequential Compression Device (SCD) Assessment and Plan - Assessment and Plan Plan: 78yM presenting with recurrent urosepsis/ septic shock complicated by obstructive uropathy/ urostomy NEURO: History of seizure disorder * Continue home dose of keppra * Delirium precautions (lights on/ shades up during the day, limit night time disruptions, frequent reorientation, avoid deliriogenic meds) CARDIO: History of atrial fibrillation, now with RVR Hypotension secondary to septic shock Chronic orthostatic hypotension * Patient was given total of 2L crystalloid prior to my evaluation. His vitals are improving with volume, and his MAP is currently above 65. Will give 1 more liter bolus as I suspect that the patient is still not adequately volume resuscitated. If he continues to be hypotensive following this 3rd bolus, will start pressors. * HR also improving with volume, would avoid BB/ CCB in the setting of septic shock. If needed, can add digoxin for rate control. * Trend trop * Patient does not have any anticoagulants listed on home meds, continue DVT prophylaxis * Continue home doses of midodrine/ fludrocortisone * Stable AAA seen on CT abd/pelvis measuring 3.5 cm, outpatient follow up PULM: History of COPD * Incentive spirometer * Scheduled/ PRN nebs F/E/N, RENAL: Acute on chronic kidney injury Hyperkalemia Dehydration History of parotidectomy * Clear fluids for now * Continue IV hydration/ maintenance fluids * Recheck labs this afternoon, no EKG changes concerning for hyperkalemia * Strict Is/Os * Trend BUN/ creat * Continue home dose of pilocarpine to aid in salivation as patient has had a parotidectomy : Obstructive uropathy History of RLQ urostomy with double J stent * CT scan shows dilation of the left renal collecting system and ureter with double J stent coursing from the collecting system into the diverting bowel loop in the RLQ which has developed since his last CT scan in June * Patient was seen by urology (Dr. Gregorio) on previous admission, does not know who his regular urologist is. Consult placed, recommendations appreciated. May need IR consult as well. ID: Septic shock, urosepsis History of C diff colitis * Continue aggressive IV resuscitation, may need central line/ pressors. Patient agrees to procedure if needed. * Check C diff toxin * MRSA swab * Initially started on just zosyn, will broaden to vanco/ zosyn until cultures result * Renally dose antibiotics PROPHY: -SCDs, SQH -PPI OVERALL: This patient is critically ill with septic shock complicated by obstructive uropathy. He requires ICU level of care. Counseling/ Coordination of Care: This patient is critically ill with impairment of one or more vital organ systems with a high probability of imminent or life-threatening deterioration. High-complexity medical decision making was required to support vital organ function and/ or prevent deterioration in the patient's condition. Total critical care time spent is 50 minutes giving full attention to this patient. This includes examining the patient, gathering history from someone other than the patient (i.e. chart review), discussing the patient's care with other providers, ordering and interpreting radiologic studies, ordering and interpreting laboratory values, re-evaluation at frequent intervals, and documentation. Amount of time is separate from teaching, counseling the patient and/or family, and exclusive of procedures. Code Status: Full H&P: Quality - VTE Deep Vein Thrombosis/Pulmonary Embolism Present on Admission: No
[2018-08-17] MEDS: Senna/Docusate Sodium 8.6/50 MG Tablet PO SCH ×2 (10:07→20:33)
[2018-08-17] MEDS: levETIRAcetam 500 MG Tablet PO SCH ×2 (10:11→20:32)
[2018-08-17] MEDS: Famotidine 20 MG Tablet PO SCH ×2 (10:11→20:32)
[2018-08-17] MEDS: Famotidine PF Inj 20 MG/2 ML Vial IV.PUSH SCH ×2 (10:12→20:33)
[2018-08-17] MEDS: Piperacil/Tazo 2.25 GM Premix 2.25 GM/50 ML PIGGYBACK IV.SIG SCH ×3 (10:15→23:29)
[2018-08-17 11:41] LABS: Phosphorus 2.7 mg/dL (2.5-4.9)
[2018-08-17 11:44] LABS: Troponin I 0.05 ng/mL (0.02-0.05)
[2018-08-17 11:45] LABS: Albumin 2.8 g/dL (3.4-5.0); Anion Gap 9 meq/L (5-15); Aspartate Aminotransferase 27 U/L (15-37); Calcium 7.9 mg/dL (8.5-10.1); Carbon Dioxide 20.4 meq/L (21.0-32.0); Chloride 110 meq/L (98-107); Glomerular Filtration Rate 24 mL/min (>89); Glucose,Random 111 mg/dL (74-106); Magnesium 1.6 mg/dL (1.5-2.5); Potassium 4.4 meq/L (3.5-5.1); Sodium 139 meq/L (136-145)
[2018-08-17 11:51] LABS: Alanine Aminotransferase 45 U/L (12-78); Alkaline Phosphatase 117 U/L (45-117); Blood Urea Nitrogen 46 mg/dL (7-18); Total Protein 6.8 g/dL (6.4-8.2); Troponin I 0.05 ng/mL (0.02-0.05)
[2018-08-17 11:55] LABS: Baso % (Auto) 0.1 % (0.0-2.0); Hematocrit 26.7 % (39.0-51.0); Hemoglobin 8.9 gm/dL (13.0-17.0); Lymph # (Auto) 0.9 th/mm3 (1.0-4.8); Lymph % (Auto) 4.1 % (9.0-44.0); Mean Corpuscular HGB Conc 33.4 % (32.0-36.0); Mean Corpuscular Hemoglobin 32.7 pg (27.0-34.0); Mean Corpuscular Volume 97.8 fL (80.0-100.0); Mean Platelet Volume 8.4 fL (7.0-11.0); Mono # (Auto) 1.8 th/mm3 (0.0-0.9); Mono % (Auto) 8.2 % (0.0-8.0); Neut # (Auto) 19.2 th/mm3 (1.8-7.7); Neut % (Auto) 87.6 % (16.0-70.0); Platelet Count 194 th/mm3 (150-450); Red Blood Count 2.73 mil/mm3 (4.50-5.90); Red Cell Distribution Width 14.4 % (11.6-17.2); White Blood Count 21.9 th/mm3 (4.0-11.0)
[2018-08-17] MEDS ORDERED: Sodium Chlor 0.9% Inj 500 ML IV.SIG ONE (13:04)
[2018-08-17] MEDS ORDERED: Digoxin Inj 500 MCG/2 ML Ampul IV.PUSH ONE (13:20)
[2018-08-17] MEDS ORDERED: Phenylephrine Inj 40 MG in Sodium Chlor 0.9% Inj 496 ML IV.CONT PRN (13:30)
[2018-08-17 15:51] LABS: INR 1.1 Ratio; Prothrombin Time 10.7 sec (9.8-11.6)
[2018-08-17 15:55] LABS: Albumin 2.7 g/dL (3.4-5.0); Anion Gap 9 meq/L (5-15); Aspartate Aminotransferase 33 U/L (15-37); Blood Urea Nitrogen 46 mg/dL (7-18); Calcium 7.6 mg/dL (8.5-10.1); Carbon Dioxide 19.5 meq/L (21.0-32.0); Chloride 113 meq/L (98-107); Glomerular Filtration Rate 26 mL/min (>89); Glucose,Random 146 mg/dL (74-106); Magnesium 1.7 mg/dL (1.5-2.5); Potassium 4.3 meq/L (3.5-5.1); Sodium 141 meq/L (136-145)
[2018-08-17 16:00] LABS: Alanine Aminotransferase 44 U/L (12-78); Alkaline Phosphatase 112 U/L (45-117); Phosphorus 2.6 mg/dL (2.5-4.9); Total Protein 6.7 g/dL (6.4-8.2)
[2018-08-17] MEDS ORDERED: fentaNYL Citrate Inj 250 MCG/5 ML Ampul ONE (16:37)
--- NOTE | 2018-08-17 16:42 | P.CONURO ---
History of Present Illness Service: Urology Consult date: 08/17/18 Requesting Physician: Courtney Barrera Reason for Consult: Sepsis/hydronephrosis/stones Primary Care Provider: No Primary Care Physician Chief Complaint: Sepsis History of Present Illness: 78yM who presented to the ED overnight for recurrent sepsis. The patient lives in a nursing facility and was noted to be hypotensive, tachycardic, with tactile fevers for the past day. He was seen in the emergency department and found to have leukocytosis (26K), hypotension/ tachycardia (BP 70s/50s, HR 100s on arrival), with UTI and CT scan showing obstructive uropathy The patient was started on zosyn and admitted initially to the hospitalist service. He was given 2L of IV fluids but remained hypotensive, lactic acid persistently elevated, and critical care was requested to resume his care. The patient has a history of urostomy with multiple admissions for complications thereof and urosepsis in the past year (most recently in 06/2018) ; he has also had recurrent C diff and recurrent acute kidney injury. He reports that he lives in a usp, is able to ambulate with a walker, and is independent of most ADLs at baseline. Urology consulted Pt is well known to our service he is a pt of Dr Lynch due to a h/o bladder cancer, s/p cystectomy and has urostomy now. he also has h/o stones, obstructing his kidneys and UTIs. He had stents and nephrostomy tubes in the past due to persistent hydro. Last time he had no issues with right side so nephrostomy was not placed, he had a left PCN which was internalized after his left URS procedure 2 weeks ago. Now he is admitted for urosepsis, after IV fluids and antbx his leukocytosis is slightly improving but he still remains hypotensive and looks sick. Based on his current condition and after reviewing his CT scan with Dr Lynch it looks like his right renal stone moved more towards renal pelvis area causing more obstruction/hydro and left side looks hydronephrotic too in spite of having a stent which looks like being in a good position. At this time pt will benefit form b/l PCNs placement. 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 - Medical History Medical History: Medical History (Last Reviewed 08/17/18 @ 09:07 by Courtney Barrera DO) Atrial fibrillation Anticoagulant long-term use COPD (chronic obstructive pulmonary disease) Chronic kidney disease, stage IV (severe) Essential hypertension H/O reduction of nasal fracture History of Clostridium difficile infection History of MRSA infection Hyperlipidemia Kidney stones MDRO (multiple drug resistant organisms) resistance Onset Date: ~06/17/18 Nasal bones, closed fracture Nasal fracture Open left femoral fracture Prostate cancer Subdural hematoma UTI (urinary tract infection) VRE carrier Hypotension Intertrochanteric fracture of left hip Parotid mass - Surgical History Surgical History: Surgical History (Last Reviewed 08/17/18 @ 08:21 by Courtney Barrera DO) History of parotidectomy History of urostomy Hx of nephrostomy Nephrostomy status - Family History Family History: Family History (Last Reviewed 08/17/18 @ 08:21 by Courtney Barrera DO) Father Coronary artery disease Other Osteoarthritis - Tobacco History Second Hand Smoke Exposure: No Tobacco Use In Past 30 Days: No Smoking Status: Former smoker - Alcohol History How Often Do You Have a Drink Containing Alcohol: Never - Substance Use History Substance History: No History of Abuse - Travel History Recent Travel in the [place] Within the Last 8 Weeks: No Recent Travel Out of the Country Within the Last 8 Weeks: No - Immunization History Tetanus Immunization: Unsure Medications and Allergies Active Medications: Active Medications Acetaminophen (Tylenol) 650 mg PO Q4H PRN PRN Reason: Temp > 100.4 Al Hydroxide/Mg Hydroxide (Milk Of Magnmervin Liq) 30 ml PO Q12H PRN PRN Reason: Mild Constipation Albuterol (Duoneb Neb (Prn)) 1 ampul NEB Q2HR NEB PRN PRN Reason: WHEEZING Albuterol (Duoneb Neb (Marko)) 1 ampul NEB Q4HR NEB MARKO Last Admin: 08/17/18 15:45 Dose: Not Given Bisacodyl (Dulcolax Supp) 10 mg RECTAL DAILY PRN PRN Reason: SEVERE CONSITIPATION Chlorhexidine Gluconate (Chlorhexidine 2% Cloth) 3 pack TOPICAL DAILY@0400 MARKO Stop: 08/23/18 03:59 Chlorhexidine Gluconate (Chlorhexidine 2% Cloth) 3 pack TOPICAL DAILY@0400 PRN PRN Reason: Extra cloth needed Stop: 08/23/18 03:59 Famotidine (Pepcid) 20 mg PO BID [facility] Last Admin: 08/17/18 10:11 Dose: 20 mg Famotidine (Pepcid Pf Inj) 20 mg IV.PUSH Q12HR [facility] Last Admin: 08/17/18 10:12 Dose: Not Given Fludrocortisone Acetate (Florinef) 0.1 mg PO DAILY [facility] Last Admin: 08/17/18 10:29 Dose: 0.1 mg Heparin Sodium (Porcine) (Heparin Inj) 5,000 units SQ Q8H [facility] Last Admin: 08/17/18 12:16 Dose: 5,000 units Sodium Chloride (Ns Inj) 1,000 mls @ 0 mls/hr IV.SIG .Q0M [facility] Last Infusion: 08/17/18 03:15 Dose: Infused Piperacillin/Tazobactam/Dextrose (Zosyn 2.25 Gm Premix) 2.25 gm in 50 mls @ 100 mls/hr IV.SIG Q6H [facility] Last Infusion: 08/17/18 11:22 Dose: Infused Sodium Chloride (Ns Inj) 1,000 mls @ 100 mls/hr IV.CONT .Q10H [facility] Last Admin: 08/17/18 16:04 Dose: 100 mls/hr Phenylephrine HCl 40 mg/ (Sodium Chloride) 500 mls @ 30 mls/hr IV.CONT TITRATE PRN; Protocol PRN Reason: See Protocol Last Admin: 08/17/18 13:20 Dose: 40 mcg/min, 30 mls/hr Lactulose (Lactulose Liq) 30 ml PO DAILY PRN PRN Reason: SEVERE CONSITIPATION Levetiracetam (Keppra) 500 mg PO BID [facility] Last Admin: 08/17/18 10:11 Dose: 500 mg Midodrine (Proamatine) 5 mg PO TID@0700,1200,1700 [facility] Last Admin: 08/17/18 11:28 Dose: 5 mg Multivitamins/Folic Acid/Vitamin C (Flintstones) 1 tab CHEW DAILY [facility] Ondansetron HCl (Zofran Inj) 4 mg IV.PUSH Q6H PRN PRN Reason: NAUSEA OR VOMITING Pharmacy Profile Note (Vancomycin Consult Pharmacy) 1 each OTHER UNSCH PRN PRN Reason: Pharmacy to dose Pilocarpine HCl (Salagen) 5 mg PO BID [facility] Senna/Docusate Sodium (Maggi-Colace) 1 tab PO BID [facility] Last Admin: 08/17/18 10:07 Dose: Not Given Sennosides (Senokot) 17.2 mg PO Q12H PRN PRN Reason: Moderate Constipation Sodium Chloride (Ns Flush) 2 ml IV.FLUSH PRN PRN PRN Reason: FLUSH AFTER USING IV ACCESS Sodium Chloride (Ns Flush) 2 ml IV.FLUSH BID [facility] Last Admin: 08/17/18 10:12 Dose: 2 ml Terbutaline Sulfate (Brethine Inj) 1 mg SQ UNSCH PRN PRN Reason: For Extravasation Allergies Allergy/AdvReac Type Severity Reaction Status Date / Time crab Allergy Intermediate Rash Verified 08/17/18 01:55 Home Medications Medication Instructions Recorded Confirmed Type pilocarpine HCl 5 mg PO BID 05/15/18 08/17/18 History acetaminophen 650 mg PO Q4H PRN 07/10/18 08/17/18 History Saccharomyces boulardii 250 mg PO BID 08/17/18 08/17/18 History lactulose 15 ml PO DAILY PRN 08/17/18 08/17/18 History nitrofurantoin monohyd/m-cryst 100 mg PO BID 08/17/18 08/17/18 History Physical Exam Vital Signs - 24 hr 08/17/18 01:56 08/17/18 02:00 08/17/18 02:02 Temperature 98.1 F Pulse Rate 106 H 106 H 98 H Respiratory Rate 19 13 Blood Pressure 75/52 L 68/41 L Pulse Oximetry 100 98 08/17/18 02:07 08/17/18 05:00 08/17/18 05:16 Temperature 97.7 F Pulse Rate 108 H Respiratory Rate 30 H Blood Pressure 133/72 Pulse Oximetry 98 96 96 08/17/18 05:46 08/17/18 05:47 08/17/18 06:00 Temperature 98.6 F Pulse Rate 126 H 116 H Respiratory Rate 20 15 16 Blood Pressure 140/61 118/61 Pulse Oximetry 99 08/17/18 07:00 08/17/18 08:00 08/17/18 08:01 Temperature 100.1 F H Pulse Rate 126 H 114 H 119 H Respiratory Rate 16 15 29 H Blood Pressure 114/57 L 80/51 L 90/58 L Pulse Oximetry 97 97 96 08/17/18 08:18 08/17/18 08:33 08/17/18 08:48 Temperature Pulse Rate 118 H 118 H 117 H Respiratory Rate 29 H 25 H 27 H Blood Pressure 95/52 L 96/51 L 95/52 L Pulse Oximetry 96 97 96 08/17/18 09:00 08/17/18 09:03 08/17/18 09:18 Temperature Pulse Rate 121 H 121 H 120 H Respiratory Rate 27 H 26 H 25 H Blood Pressure 101/57 L 90/52 L Pulse Oximetry 95 95 96 08/17/18 09:33 08/17/18 09:48 08/17/18 10:00 Temperature Pulse Rate 119 H 123 H 113 H Respiratory Rate 25 H 27 H 29 H Blood Pressure 94/60 L 96/53 L Pulse Oximetry 96 97 89 L 08/17/18 10:03 08/17/18 10:18 08/17/18 10:33 Temperature Pulse Rate 103 H 119 H 108 H Respiratory Rate 29 H 22 26 H Blood Pressure 86/52 L 95/60 L 110/71 Pulse Oximetry 89 L 78 L 96 08/17/18 10:48 08/17/18 11:00 08/17/18 11:03 Temperature Pulse Rate 106 H 111 H 115 H Respiratory Rate 27 H 25 H 23 Blood Pressure 93/58 L 91/63 L Pulse Oximetry 94 L 96 97 08/17/18 11:18 08/17/18 11:33 08/17/18 11:48 Temperature Pulse Rate 120 H 116 H 120 H Respiratory Rate 10 L 27 H 23 Blood Pressure 87/57 L 91/60 L 82/58 L Pulse Oximetry 98 99 98 08/17/18 12:00 08/17/18 12:03 08/17/18 12:09 Temperature 99.0 F Pulse Rate 123 H 127 H 127 H Respiratory Rate 23 24 24 Blood Pressure 80/50 L 85/50 L Pulse Oximetry 98 98 98 08/17/18 12:18 08/17/18 12:19 08/17/18 12:33 Temperature Pulse Rate 117 H 109 H 116 H Respiratory Rate 25 H 17 22 Blood Pressure 95/61 L 83/53 L Pulse Oximetry 99 100 08/17/18 12:48 08/17/18 12:49 08/17/18 13:00 Temperature Pulse Rate 124 H 131 H 123 H Respiratory Rate 25 H 23 24 Blood Pressure 75/51 L 81/50 L Pulse Oximetry 100 100 100 08/17/18 13:03 08/17/18 13:09 08/17/18 13:18 Temperature Pulse Rate 130 H 124 H 122 H Respiratory Rate 24 25 H 27 H Blood Pressure 69/45 L 89/54 L 85/50 L Pulse Oximetry 100 100 100 08/17/18 13:33 08/17/18 13:48 08/17/18 14:00 Temperature Pulse Rate 106 H 100 H 99 H Respiratory Rate 28 H 25 H 28 H Blood Pressure 96/56 L 105/71 Pulse Oximetry 100 81 L 95 08/17/18 14:03 08/17/18 14:18 08/17/18 14:33 Temperature Pulse Rate 101 H 110 H 108 H Respiratory Rate 24 26 H 24 Blood Pressure 113/74 124/71 141/91 H Pulse Oximetry 97 97 98 08/17/18 14:48 08/17/18 15:00 08/17/18 15:03 Temperature Pulse Rate 112 H 106 H 109 H Respiratory Rate 23 25 H 25 H Blood Pressure 139/90 123/71 Pulse Oximetry 92 L 97 96 08/17/18 15:18 08/17/18 15:33 08/17/18 15:48 Temperature Pulse Rate 112 H 108 H 117 H Respiratory Rate 25 H 26 H 32 H Blood Pressure 135/77 145/89 H 129/81 Pulse Oximetry 98 98 97 08/17/18 16:00 08/17/18 16:03 Temperature 98.1 F Pulse Rate 114 H 115 H Respiratory Rate 30 H 30 H Blood Pressure 140/85 140/85 Pulse Oximetry 98 99 Physical Exam: GENERAL: This is a well-nourished, well-developed patient, in no apparent distress. SKIN: No rashes, ecchymoses or lesions. Cool and dry. HEAD: Atraumatic. Normocephalic. CARDIOVASCULAR: + tachy RESPIRATORY: Clear to auscultation. Breath sounds equal bilaterally. No wheezes , rales, or rhonchi. GASTROINTESTINAL: Abdomen soft, non-tender, nondistended. GENITOURINARY: Urostomy is in place. no CVAT MUSCULOSKELETAL: Extremities without clubbing, cyanosis, or edema. NEUROLOGICAL: Awake and alert. Laboratory Results - last 24 hr 08/17/18 08/17/1818 03:15 03:15 03:15 WBC 26.5 H RBC 3.01 L Hgb 9.6 L Hct 28.9 L MCV 96.0 MCH 31.8 MCHC 33.1 RDW 14.4 Plt Count 233 MPV 8.4 Prelim Diff (Auto) Slide review pending Neut % (Auto) 85.5 H Lymph % (Auto) 4.0 L [place] % (Auto) 10.3 H Eos % (Auto) 0.0 Baso % (Auto) 0.2 Neut # (Auto) 22.7 H Lymph # (Auto) 1.1 [place] # (Auto) 2.7 H Eos # (Auto) 0.0 Baso # (Auto) 0.1 WBC Differential . Diff Scan Auto diff confirmed Differential Comment . Platelet Estimate Normal Platelet Morphology Normal RBC Morphology Normal PT INR Sodium 136 Potassium 5.3 H Chloride 103 Carbon Dioxide 24.3 Anion Gap 9 BUN 53 H Creatinine 2.80 H Estimated GFR 22 L POC Glucose Random Glucose 119 H Lactic Acid 2.7 H Calcium 8.1 L Phosphorus Magnesium 1.8 Total Bilirubin 0.5 AST 30 ALT 49 Alkaline Phosphatase 133 H Troponin I 0.06 H B-Natriuretic Peptide Total Protein 7.5 Albumin 3.2 L Urine Color Urine Clarity Urine pH Ur Specific [place] Urine Protein Urine Glucose (UA) Urine Ketones Urine Occult Blood Urine Nitrate Urine Bilirubin Urine Urobilinogen Ur Leukocyte Esterase Urine RBC Urine WBC Ur Squamous Epith Cells Amorphous Sediment Urine Bacteria Micro UA Comment Ur Microscopic Review Urine Culture Comments Nasal Screen MRSA (PCR) 08/17/18 08/17/18 08/17/18 03:15 03:15 05:35 WBC RBC Hgb Hct MCV MCH MCHC RDW Plt Count MPV Prelim Diff (Auto) Neut % (Auto) Lymph % (Auto) [place] % (Auto) Eos % (Auto) Baso % (Auto) Neut # (Auto) Lymph # (Auto) [place] # (Auto) Eos # (Auto) Baso # (Auto) WBC Differential Diff Scan Differential Comment Platelet Estimate Platelet Morphology RBC Morphology PT INR Sodium Potassium Chloride Carbon Dioxide Anion Gap BUN Creatinine Estimated GFR POC Glucose Random Glucose Lactic Acid 2.9 H Calcium Phosphorus Magnesium Total Bilirubin AST ALT Alkaline Phosphatase Troponin I B-Natriuretic Peptide 454 H Total Protein Albumin Urine Color Yellow Urine Clarity Cloudy H Urine pH 7.0 Ur Specific [place] 1.009 Urine Protein 100 H Urine Glucose (UA) Negative Urine Ketones Negative Urine Occult Blood Negative Urine Nitrate Negative Urine Bilirubin Negative Urine Urobilinogen Less than 2 Ur Leukocyte Esterase Large H Urine RBC 5 H Urine WBC 68 H Ur Squamous Epith Cells <1 Amorphous Sediment Occasional H Urine Bacteria Many H Micro UA Comment Cath-culture ind Ur Microscopic Review Not Reportable Urine Culture Comments Cath-cult indicated Nasal Screen MRSA (PCR) 08/17/18 08/17/18 08/17/18 05:55 10:54 10:54 WBC RBC Hgb Hct MCV MCH MCHC RDW Plt Count MPV Prelim Diff (Auto) Neut % (Auto) Lymph % (Auto) [place] % (Auto) Eos % (Auto) Baso % (Auto) Neut # (Auto) Lymph # (Auto) [place] # (Auto) Eos # (Auto) Baso # (Auto) WBC Differential Diff Scan Differential Comment Platelet Estimate Platelet Morphology RBC Morphology PT INR Sodium 139 Potassium 4.4 D Chloride 110 H Carbon Dioxide 20.4 L Anion Gap 9 BUN 46 H Creatinine 2.55 H Estimated GFR 24 L POC Glucose Random Glucose 111 H Lactic Acid Calcium 7.9 L Phosphorus 2.7 Magnesium 1.6 Total Bilirubin 0.6 AST 27 ALT 45 Alkaline Phosphatase 117 Troponin I 0.05 0.05 B-Natriuretic Peptide Total Protein 6.8 D Albumin 2.8 L Urine Color Urine Clarity Urine pH Ur Specific [place] Urine Protein Urine Glucose (UA) Urine Ketones Urine Occult Blood Urine Nitrate Urine Bilirubin Urine Urobilinogen Ur Leukocyte Esterase Urine RBC Urine WBC Ur Squamous Epith Cells Amorphous Sediment Urine Bacteria Micro UA Comment Ur Microscopic Review Urine Culture Comments Nasal Screen MRSA (PCR) Not detected 08/17/18 08/17/18 08/17/18 10:54 10:54 11:34 WBC 21.9 H RBC 2.73 L Hgb 8.9 L Hct 26.7 L MCV 97.8 MCH 32.7 MCHC 33.4 RDW 14.4 Plt Count 194 MPV 8.4 Prelim Diff (Auto) Neut % (Auto) 87.6 H Lymph % (Auto) 4.1 L [place] % (Auto) 8.2 H Eos % (Auto) 0.0 Baso % (Auto) 0.1 Neut # (Auto) 19.2 H Lymph # (Auto) 0.9 L [place] # (Auto) 1.8 H Eos # (Auto) 0.0 Baso # (Auto) 0.0 WBC Differential . Diff Scan Differential Comment Auto diff final Platelet Estimate Platelet Morphology RBC Morphology PT INR Sodium Potassium Chloride Carbon Dioxide Anion Gap BUN Creatinine Estimated GFR POC Glucose 150 H Random Glucose Lactic Acid 2.2 H Calcium Phosphorus Magnesium Total Bilirubin AST ALT Alkaline Phosphatase Troponin I B-Natriuretic Peptide Total Protein Albumin Urine Color Urine Clarity Urine pH Ur Specific [place] Urine Protein Urine Glucose (UA) Urine Ketones Urine Occult Blood Urine Nitrate Urine Bilirubin Urine Urobilinogen Ur Leukocyte Esterase Urine RBC Urine WBC Ur Squamous Epith Cells Amorphous Sediment Urine Bacteria Micro UA Comment Ur Microscopic Review Urine Culture Comments Nasal Screen MRSA (PCR) 08/17/18 08/17/18 08/17/18 15:17 15:17 15:17 WBC RBC Hgb Hct MCV MCH MCHC RDW Plt Count MPV Prelim Diff (Auto) Neut % (Auto) Lymph % (Auto) [place] % (Auto) Eos % (Auto) Baso % (Auto) Neut # (Auto) Lymph # (Auto) [place] # (Auto) Eos # (Auto) Baso # (Auto) WBC Differential Diff Scan Differential Comment Platelet Estimate Platelet Morphology RBC Morphology PT 10.7 INR 1.1 Sodium 141 Potassium 4.3 Chloride 113 H Carbon Dioxide 19.5 L Anion Gap 9 BUN 46 H Creatinine 2.43 H Estimated GFR 26 L POC Glucose Random Glucose 146 H Lactic Acid 2.2 H Calcium 7.6 L Phosphorus 2.6 Magnesium 1.7 Total Bilirubin 0.4 AST 33 ALT 44 Alkaline Phosphatase 112 Troponin I B-Natriuretic Peptide Total Protein 6.7 Albumin 2.7 L Urine Color Urine Clarity Urine pH Ur Specific [place] Urine Protein Urine Glucose (UA) Urine Ketones Urine Occult Blood Urine Nitrate Urine Bilirubin Urine Urobilinogen Ur Leukocyte Esterase Urine RBC Urine WBC Ur Squamous Epith Cells Amorphous Sediment Urine Bacteria Micro UA Comment Ur Microscopic Review Urine Culture Comments Nasal Screen MRSA (PCR) Microbiology 08/17/18 03:15 Influenza Types A,B Antigen - Final Nasal Wash Negative for FLU A and B antigen Infection due to influenza A or B cannot be ruled out since the antigen present in the sample may be below the detection limit of the test. Result Diagrams: 08/17/18 10:54 08/17/18 15:17 Imaging: ITS Impressions Chest X-Ray 08/17/18 02:07 CONCLUSION: The lungs are clear. Abdomen/Pelvis CT 08/17/18 02:08 CONCLUSION: 1. Interval development of dilation of the left renal collecting system and ureter with double J stent coursing from the collecting system into the diverting bowel loop right lower quadrant. 2. Stable bilateral renal calcifications including right renal pelvis. 3. Stable gallstones. 4. Stable mid abdominal aortic aneurysm measuring 3.5 cm. Assessment and Plan - Plan 78y.o M with history as per HPI - Continue treatment of his sepsis as per ICU care team - IR to place b/l nephrostomies - Follow up on final cultures - Once his infection clears up he will need internalization of his PCNs by IR and antegrade studies as well as possibly loopogram Urology will follow Discussed Condition With: Dr Weston and Dr Lynch as well as pt's RN
[2018-08-17] MEDS ORDERED: Iohexol 350 MG/ML 50 ML Vial (for Rad Diag) IVCONTRAST ONE (17:30)
--- NOTE | 2018-08-17 17:46 | P.CONPAL ---
Consult Service: Palliative Care Requesting Physician: Courtney Barrera Reason for Consult: a. To assist with evaluation and management of symptoms including: dyspnea, weakness. b. To assist medical decision maker(s) with: better understanding of current medical conditions; weighing benefits/burdens of medical treatment options; making medical treatment decisions. Primary Care Provider: No Primary Care Physician History of Present Illness History of Present Illness: Mr. Gordon is a 78 year old male with past medical history of atrial fibrillation, chronic anticoagulation, COPD, chronic kidney disease, hypertension, C. difficile infection, hyperlipidemia, kidney stones, prostate cancer, recurrent UTI, subdural hematoma. Patient was a recent resident of [facility]. This is the patient's 16th admission/ER visit to [place] this year. The patient has a history of urostomy with multiple admissions for complications thereof and urosepsis in the past year (most recently in 06/2018) ; he has also had recurrent C diff and recurrent acute kidney injury. Patient presented to [facility] emergency department on 08/17/18 from [facility] after he was found hypotensive (60/40) and tachycardic (110). Upon arrival to the emergency department patient was found to be hypotensive and tachycardic. Additional findings: * Temp 98.1, pulse 106, respiratory rate 19, blood pressure 75/52, oxygen saturation 100% * WBC 26.5, hemoglobin 9.6, hematocrit 28.9, platelet count 233, neutrophil 85.5 % * Sodium 136, potassium 5.3, chloride 103, carbon dioxide 24.3, BUN 53, creatinine 2.8, GFR 22, glucose 119 * Lactic acid 2.7 * total bilirubin 0.5, AST 30, ALT 49, alkaline phosphatase 133 * Troponin 0.06 * Total protein 7.5, albumin 3.2 * PT 10.7, INR 1.1 * Negative flu * Nasal MRSA - not detected * C. difficile - pending * Urinalysis positive leukocyte esterase, RBC, WBC, bacteria, culture indicated , results pending * CT scan abdomen/pelvis -interval development of dilation of left renal collecting system, ureter with double-J stent coursing from the collecting system into the diverting bowel loop right lower quadrant, stable bilateral renal calcifications including the right renal pelvis, stable gallstones, stable mid abdominal aortic aneurysm measuring 3.5 cm. * Chest x-ray-lungs clear. Patient was admitted to ICU with recurrent urosepsis/septic shock complicated by obstructive uropathy. Patient remains hypotensive, pressor support being started. Urology, Dr. Sinha was consulted who recommended interventional radiology to place bilateral nephrostomy tubes. Patient has agreed to central line placement if needed, desires FULL CODE, pressor support. Palliative care was consulted to assist with further clarification of goals of medical treatment in this patient with recurrent urosepsis, debility and frequent emergency room/hospital visits. Called [facility] to request advance directives, they do not have nay on file. Requested CM call [place] to see if they have a copy on file. Call placed to sonMo to provide medical update. He verbalizes desire for continued aggressive care. He hopes to speak with patient tonight or tomorrow. He will send me a copy of written POA and designation of health care surrogate paperwork. Function/Cognitive Trajectory: [place], is able to ambulate with a walker, and is independent of most ADLs at baseline. Review of Systems Constitutional: Reports fatigue, Reports lack of energy, Reports weakness, Reports weight loss Cardiovascular: Reports shortness of breath Respiratory: Reports shortness of breath Gastrointestinal: Reports loose stools Neurologic: Reports weakness Hematologic/Lymphatic: Reports easy bruising PMFSH - History History Provided By: Patient, Family Member (Mo manzanares) - Medical History Medical History: Medical History (Last Reviewed 08/17/18 @ 09:07 by Courtney Barrera DO) Atrial fibrillation Anticoagulant long-term use COPD (chronic obstructive pulmonary disease) Chronic kidney disease, stage IV (severe) Essential hypertension H/O reduction of nasal fracture History of Clostridium difficile infection History of MRSA infection Hyperlipidemia Kidney stones MDRO (multiple drug resistant organisms) resistance Onset Date: ~06/17/18 Nasal bones, closed fracture Nasal fracture Open left femoral fracture Prostate cancer Subdural hematoma UTI (urinary tract infection) VRE carrier Hypotension Intertrochanteric fracture of left hip Parotid mass - Surgical History Surgical History: Surgical History (Last Reviewed 08/17/18 @ 08:21 by Courtney Barrera DO) History of parotidectomy History of urostomy Hx of nephrostomy Nephrostomy status - Family History Family History: Family History (Last Reviewed 08/17/18 @ 08:21 by Courtney Barrera DO) Father Coronary artery disease Other Osteoarthritis - Social History I have reviewed the patient's Social History: Yes - Tobacco History Second Hand Smoke Exposure: No Tobacco Use In Past 30 Days: No Smoking Status: Former smoker - Alcohol History How Often Do You Have a Drink Containing Alcohol: Never - Substance Use History Substance History: No History of Abuse - Travel History Recent Travel in the [place] Within the Last 8 Weeks: No Recent Travel Out of the Country Within the Last 8 Weeks: No - Immunization History Tetanus Immunization: Unsure Medications and Allergies Active Medications: Active Medications Acetaminophen (Tylenol) 650 mg PO Q4H PRN PRN Reason: Temp > 100.4 Al Hydroxide/Mg Hydroxide (Milk Of Magnmervin Liq) 30 ml PO Q12H PRN PRN Reason: Mild Constipation Albuterol (Duoneb Neb (Prn)) 1 ampul NEB Q2HR NEB PRN PRN Reason: WHEEZING Albuterol (Duoneb Neb (Marko)) 1 ampul NEB Q4HR NEB [facility] Last Admin: 08/17/18 15:45 Dose: Not Given Bisacodyl (Dulcolax Supp) 10 mg RECTAL DAILY PRN PRN Reason: SEVERE CONSITIPATION Chlorhexidine Gluconate (Chlorhexidine 2% Cloth) 3 pack TOPICAL DAILY@0400 MARKO Stop: 08/23/18 03:59 Chlorhexidine Gluconate (Chlorhexidine 2% Cloth) 3 pack TOPICAL DAILY@0400 PRN PRN Reason: Extra cloth needed Stop: 08/23/18 03:59 Famotidine (Pepcid) 20 mg PO BID [facility] Last Admin: 08/17/18 10:11 Dose: 20 mg Famotidine (Pepcid Pf Inj) 20 mg IV.PUSH Q12HR [facility] Last Admin: 08/17/18 10:12 Dose: Not Given Fludrocortisone Acetate (Florinef) 0.1 mg PO DAILY [facility] Last Admin: 08/17/18 10:29 Dose: 0.1 mg Heparin Sodium (Porcine) (Heparin Inj) 5,000 units SQ Q8H [facility] Last Admin: 08/17/18 12:16 Dose: 5,000 units Sodium Chloride (Ns Inj) 1,000 mls @ 0 mls/hr IV.SIG .Q0M [facility] Last Infusion: 08/17/18 03:15 Dose: Infused Piperacillin/Tazobactam/Dextrose (Zosyn 2.25 Gm Premix) 2.25 gm in 50 mls @ 100 mls/hr IV.SIG Q6H [facility] Last Infusion: 08/17/18 11:22 Dose: Infused Sodium Chloride (Ns Inj) 1,000 mls @ 100 mls/hr IV.CONT .Q10H [facility] Last Admin: 08/17/18 16:04 Dose: 100 mls/hr Phenylephrine HCl 40 mg/ (Sodium Chloride) 500 mls @ 30 mls/hr IV.CONT TITRATE PRN; Protocol PRN Reason: See Protocol Last Admin: 08/17/18 13:20 Dose: 40 mcg/min, 30 mls/hr Lactulose (Lactulose Liq) 30 ml PO DAILY PRN PRN Reason: SEVERE CONSITIPATION Levetiracetam (Keppra) 500 mg PO BID [facility] Last Admin: 08/17/18 10:11 Dose: 500 mg Midodrine (Proamatine) 5 mg PO TID@0700,1200,1700 [facility] Last Admin: 08/17/18 11:28 Dose: 5 mg Multivitamins/Folic Acid/Vitamin C (Flintstones) 1 tab CHEW DAILY [facility] Ondansetron HCl (Zofran Inj) 4 mg IV.PUSH Q6H PRN PRN Reason: NAUSEA OR VOMITING Pharmacy Profile Note (Vancomycin Consult Pharmacy) 1 each OTHER UNSCH PRN PRN Reason: Pharmacy to dose Pilocarpine HCl (Salagen) 5 mg PO BID [facility] Senna/Docusate Sodium (Maggi-Colace) 1 tab PO BID [facility] Last Admin: 08/17/18 10:07 Dose: Not Given Sennosides (Senokot) 17.2 mg PO Q12H PRN PRN Reason: Moderate Constipation Sodium Chloride (Ns Flush) 2 ml IV.FLUSH PRN PRN PRN Reason: FLUSH AFTER USING IV ACCESS Sodium Chloride (Ns Flush) 2 ml IV.FLUSH BID [facility] Last Admin: 08/17/18 10:12 Dose: 2 ml Terbutaline Sulfate (Brethine Inj) 1 mg SQ UNSCH PRN PRN Reason: For Extravasation Allergies Allergy/AdvReac Type Severity Reaction Status Date / Time crab Allergy Intermediate Rash Verified 08/17/18 01:55 Home Medications Medication Instructions Recorded Confirmed Type pilocarpine HCl 5 mg PO BID 05/15/18 08/17/18 History acetaminophen 650 mg PO Q4H PRN 07/10/18 08/17/18 History Saccharomyces boulardii 250 mg PO BID 08/17/18 08/17/18 History lactulose 15 ml PO DAILY PRN 08/17/18 08/17/18 History nitrofurantoin monohyd/m-cryst 100 mg PO BID 08/17/18 08/17/18 History Advance Directives Advance Directives Date on File: 01/30/18 Living Will: Unknown Healthcare Surrogate: Yes (copies requested, awaiting email with information) Health Care Surrogate Name and Number: Mo Redmond and/or Hamzah Lyle ( see contacts for numbers) Power of Salesperson New Cars: Yes Power of Salesperson New Cars Name: Mo Redmond and/or Hamzah Lyle (see contacts for numbers) Power of Salesperson New Cars Relationship to Patient: Children Today's verbally stated goals: Patient desires continued aggressive care including FULL CODE. Family/friends goals: Family supports patient's wishes for continued aggressive care including FULL Code. Ethical and Legal Issues: Patient is capacitated to make his own healthcare decisions. Copy of written advance directives including power of family law attorney and designation of healthcare surrogate requested. Son Mo indicates he and his sister Niyah are named on the paperwork. Physical Exam Vital Signs: Vital Signs - 24 hr 08/17/18 01:56 08/17/18 02:00 08/17/18 02:02 Temperature 98.1 F Pulse Rate 106 H 106 H 98 H Respiratory Rate 19 13 Blood Pressure 75/52 L 68/41 L Pulse Oximetry 100 98 08/17/18 02:07 08/17/18 05:00 08/17/18 05:16 Temperature 97.7 F Pulse Rate 108 H Respiratory Rate 30 H Blood Pressure 133/72 Pulse Oximetry 98 96 96 08/17/18 05:46 08/17/18 05:47 08/17/18 06:00 Temperature 98.6 F Pulse Rate 126 H 116 H Respiratory Rate 20 15 16 Blood Pressure 140/61 118/61 Pulse Oximetry 99 08/17/18 07:00 08/17/18 08:00 08/17/18 08:01 Temperature 100.1 F H Pulse Rate 126 H 114 H 119 H Respiratory Rate 16 15 29 H Blood Pressure 114/57 L 80/51 L 90/58 L Pulse Oximetry 97 97 96 08/17/18 08:18 08/17/18 08:33 08/17/18 08:48 Temperature Pulse Rate 118 H 118 H 117 H Respiratory Rate 29 H 25 H 27 H Blood Pressure 95/52 L 96/51 L 95/52 L Pulse Oximetry 96 97 96 08/17/18 09:00 08/17/18 09:03 08/17/18 09:18 Temperature Pulse Rate 121 H 121 H 120 H Respiratory Rate 27 H 26 H 25 H Blood Pressure 101/57 L 90/52 L Pulse Oximetry 95 95 96 08/17/18 09:33 08/17/18 09:48 08/17/18 10:00 Temperature Pulse Rate 119 H 123 H 113 H Respiratory Rate 25 H 27 H 29 H Blood Pressure 94/60 L 96/53 L Pulse Oximetry 96 97 89 L 08/17/18 10:03 08/17/18 10:18 08/17/18 10:33 Temperature Pulse Rate 103 H 119 H 108 H Respiratory Rate 29 H 22 26 H Blood Pressure 86/52 L 95/60 L 110/71 Pulse Oximetry 89 L 78 L 96 08/17/18 10:48 08/17/18 11:00 08/17/18 11:03 Temperature Pulse Rate 106 H 111 H 115 H Respiratory Rate 27 H 25 H 23 Blood Pressure 93/58 L 91/63 L Pulse Oximetry 94 L 96 97 08/17/18 11:18 08/17/18 11:33 08/17/18 11:48 Temperature Pulse Rate 120 H 116 H 120 H Respiratory Rate 10 L 27 H 23 Blood Pressure 87/57 L 91/60 L 82/58 L Pulse Oximetry 98 99 98 08/17/18 12:00 08/17/18 12:03 08/17/18 12:09 Temperature 99.0 F Pulse Rate 123 H 127 H 127 H Respiratory Rate 23 24 24 Blood Pressure 80/50 L 85/50 L Pulse Oximetry 98 98 98 08/17/18 12:18 08/17/18 12:19 08/17/18 12:33 Temperature Pulse Rate 117 H 109 H 116 H Respiratory Rate 25 H 17 22 Blood Pressure 95/61 L 83/53 L Pulse Oximetry 99 100 08/17/18 12:48 08/17/18 12:49 08/17/18 13:00 Temperature Pulse Rate 124 H 131 H 123 H Respiratory Rate 25 H 23 24 Blood Pressure 75/51 L 81/50 L Pulse Oximetry 100 100 100 08/17/18 13:03 08/17/18 13:09 08/17/18 13:18 Temperature Pulse Rate 130 H 124 H 122 H Respiratory Rate 24 25 H 27 H Blood Pressure 69/45 L 89/54 L 85/50 L Pulse Oximetry 100 100 100 08/17/18 13:33 08/17/18 13:48 08/17/18 14:00 Temperature Pulse Rate 106 H 100 H 99 H Respiratory Rate 28 H 25 H 28 H Blood Pressure 96/56 L 105/71 Pulse Oximetry 100 81 L 95 08/17/18 14:03 08/17/18 14:18 08/17/18 14:33 Temperature Pulse Rate 101 H 110 H 108 H Respiratory Rate 24 26 H 24 Blood Pressure 113/74 124/71 141/91 H Pulse Oximetry 97 97 98 08/17/18 14:48 08/17/18 15:00 08/17/18 15:03 Temperature Pulse Rate 112 H 106 H 109 H Respiratory Rate 23 25 H 25 H Blood Pressure 139/90 123/71 Pulse Oximetry 92 L 97 96 08/17/18 15:18 08/17/18 15:33 08/17/18 15:48 Temperature Pulse Rate 112 H 108 H 117 H Respiratory Rate 25 H 26 H 32 H Blood Pressure 135/77 145/89 H 129/81 Pulse Oximetry 98 98 97 08/17/18 16:00 08/17/18 16:03 Temperature 98.1 F Pulse Rate 114 H 115 H Respiratory Rate 30 H 30 H Blood Pressure 140/85 140/85 Pulse Oximetry 98 99 I&O: Intake & Output 08/15/18 08/16/18 08/17/18 08/18/18 06:59 06:59 06:59 06:59 Intake Total 2049 / 0 1050 / 1050 Output Total 200 / 200 Balance 1850 / 1850 1050 / 1050 Weight 63.5 kg Physical Exam: CONSTITUTIONAL/GENERAL: This is an elderly, thin patient, in no apparent distress. TUBES/LINES/DRAINS:PIV, oxygen via mask, urostomy, SCDs SKIN: No jaundice, rashes, or lesions. Ecchymoses on upper extremities. No wounds seen anteriorly. Skin temperature appropriate. Not diaphoretic. HEAD: Atraumatic. Normocephalic. EYES: Pupils equal and round and reactive. Extraocular motions intact. No scleral icterus. No injection or drainage. Fundi not examined. ENT: Hearing grossly normal. Nose without bleeding or purulent drainage. Throat without visible erythema, exudates, masses, or lesions. NECK: Trachea midline. CARDIOVASCULAR: Tachycardic, irregularly irregular. No JVD. RESPIRATORY/CHEST: Symmetric, unlabored respirations. Clear to auscultation. GASTROINTESTINAL: Abdomen soft, non-tender, nondistended. Urostomy right lower quadrant. Bowel sounds present. GENITOURINARY: Without palpable bladder distension. MUSCULOSKELETAL: Extremities without clubbing, cyanosis, or edema. No joint tenderness or effusion noted. LYMPHATICS: No palpable cervical or supraclavicular adenopathy. NEUROLOGICAL: Awakens easily. Answers questions appropriately. Follows commands. Moves all extremities. PSYCHIATRIC: No obvious anxiety/depression. no apparent hallucinations or other psychotic thought process. Diagnostic Tests Laboratory: Laboratory Results - last 72 hr 08/17/18 08/17/18 08/17/18 03:15 03:15 03:15 WBC 26.5 H RBC 3.01 L Hgb 9.6 L Hct 28.9 L MCV 96.0 MCH 31.8 MCHC 33.1 RDW 14.4 Plt Count 233 MPV 8.4 Prelim Diff (Auto) Slide review pending Neut % (Auto) 85.5 H Lymph % (Auto) 4.0 L Lewis % (Auto) 10.3 H Eos % (Auto) 0.0 Baso % (Auto) 0.2 Neut # (Auto) 22.7 H Lymph # (Auto) 1.1 Lewis # (Auto) 2.7 H Eos # (Auto) 0.0 Baso # (Auto) 0.1 WBC Differential . Diff Scan Auto diff confirmed Differential Comment . Platelet Estimate Normal Platelet Morphology Normal RBC Morphology Normal PT INR Sodium 136 Potassium 5.3 H Chloride 103 Carbon Dioxide 24.3 Anion Gap 9 BUN 53 H Creatinine 2.80 H Estimated GFR 22 L POC Glucose Random Glucose 119 H Lactic Acid 2.7 H Calcium 8.1 L Phosphorus Magnesium 1.8 Total Bilirubin 0.5 AST 30 ALT 49 Alkaline Phosphatase 133 H Troponin I 0.06 H B-Natriuretic Peptide Total Protein 7.5 Albumin 3.2 L Urine Color Urine Clarity Urine pH Ur Specific Sultana Urine Protein Urine Glucose (UA) Urine Ketones Urine Occult Blood Urine Nitrate Urine Bilirubin Urine Urobilinogen Ur Leukocyte Esterase Urine RBC Urine WBC Ur Squamous Epith Cells Amorphous Sediment Urine Bacteria Micro UA Comment Ur Microscopic Review Urine Culture Comments Nasal Screen MRSA (PCR) 08/17/18 08/17/18 08/17/18 03:15 03:15 05:35 WBC RBC Hgb Hct MCV MCH MCHC RDW Plt Count MPV Prelim Diff (Auto) Neut % (Auto) Lymph % (Auto) Lewis % (Auto) Eos % (Auto) Baso % (Auto) Neut # (Auto) Lymph # (Auto) Lewis # (Auto) Eos # (Auto) Baso # (Auto) WBC Differential Diff Scan Differential Comment Platelet Estimate Platelet Morphology RBC Morphology PT INR Sodium Potassium Chloride Carbon Dioxide Anion Gap BUN Creatinine Estimated GFR POC Glucose Random Glucose Lactic Acid 2.9 H Calcium Phosphorus Magnesium Total Bilirubin AST ALT Alkaline Phosphatase Troponin I B-Natriuretic Peptide 454 H Total Protein Albumin Urine Color Yellow Urine Clarity Cloudy H Urine pH 7.0 Ur Specific Sultana 1.009 Urine Protein 100 H Urine Glucose (UA) Negative Urine Ketones Negative Urine Occult Blood Negative Urine Nitrate Negative Urine Bilirubin Negative Urine Urobilinogen Less than 2 Ur Leukocyte Esterase Large H Urine RBC 5 H Urine WBC 68 H Ur Squamous Epith Cells <1 Amorphous Sediment Occasional H Urine Bacteria Many H Micro UA Comment Cath-culture ind Ur Microscopic Review Not Reportable Urine Culture Comments Cath-cult indicated Nasal Screen MRSA (PCR) 08/17/18 08/17/18 08/17/18 05:55 10:54 10:54 WBC RBC Hgb Hct MCV MCH MCHC RDW Plt Count MPV Prelim Diff (Auto) Neut % (Auto) Lymph % (Auto) Lewis % (Auto) Eos % (Auto) Baso % (Auto) Neut # (Auto) Lymph # (Auto) Lewis # (Auto) Eos # (Auto) Baso # (Auto) WBC Differential Diff Scan Differential Comment Platelet Estimate Platelet Morphology RBC Morphology PT INR Sodium 139 Potassium 4.4 D Chloride 110 H Carbon Dioxide 20.4 L Anion Gap 9 BUN 46 H Creatinine 2.55 H Estimated GFR 24 L POC Glucose Random Glucose 111 H Lactic Acid Calcium 7.9 L Phosphorus 2.7 Magnesium 1.6 Total Bilirubin 0.6 AST 27 ALT 45 Alkaline Phosphatase 117 Troponin I 0.05 0.05 B-Natriuretic Peptide Total Protein 6.8 D Albumin 2.8 L Urine Color Urine Clarity Urine pH Ur Specific Sultana Urine Protein Urine Glucose (UA) Urine Ketones Urine Occult Blood Urine Nitrate Urine Bilirubin Urine Urobilinogen Ur Leukocyte Esterase Urine RBC Urine WBC Ur Squamous Epith Cells Amorphous Sediment Urine Bacteria Micro UA Comment Ur Microscopic Review Urine Culture Comments Nasal Screen MRSA (PCR) Not detected 08/17/18 08/17/18 08/17/18 10:54 10:54 11:34 WBC 21.9 H RBC 2.73 L Hgb 8.9 L Hct 26.7 L MCV 97.8 MCH 32.7 MCHC 33.4 RDW 14.4 Plt Count 194 MPV 8.4 Prelim Diff (Auto) Neut % (Auto) 87.6 H Lymph % (Auto) 4.1 L Lewis % (Auto) 8.2 H Eos % (Auto) 0.0 Baso % (Auto) 0.1 Neut # (Auto) 19.2 H Lymph # (Auto) 0.9 L Lewis # (Auto) 1.8 H Eos # (Auto) 0.0 Baso # (Auto) 0.0 WBC Differential . Diff Scan Differential Comment Auto diff final Platelet Estimate Platelet Morphology RBC Morphology PT INR Sodium Potassium Chloride Carbon Dioxide Anion Gap BUN Creatinine Estimated GFR POC Glucose 150 H Random Glucose Lactic Acid 2.2 H Calcium Phosphorus Magnesium Total Bilirubin AST ALT Alkaline Phosphatase Troponin I B-Natriuretic Peptide Total Protein Albumin Urine Color Urine Clarity Urine pH Ur Specific Sultana Urine Protein Urine Glucose (UA) Urine Ketones Urine Occult Blood Urine Nitrate Urine Bilirubin Urine Urobilinogen Ur Leukocyte Esterase Urine RBC Urine WBC Ur Squamous Epith Cells Amorphous Sediment Urine Bacteria Micro UA Comment Ur Microscopic Review Urine Culture Comments Nasal Screen MRSA (PCR) 08/17/18 08/17/18 08/17/18 15:17 15:17 15:17 WBC RBC Hgb Hct MCV MCH MCHC RDW Plt Count MPV Prelim Diff (Auto) Neut % (Auto) Lymph % (Auto) Lewis % (Auto) Eos % (Auto) Baso % (Auto) Neut # (Auto) Lymph # (Auto) Lewis # (Auto) Eos # (Auto) Baso # (Auto) WBC Differential Diff Scan Differential Comment Platelet Estimate Platelet Morphology RBC Morphology PT 10.7 INR 1.1 Sodium 141 Potassium 4.3 Chloride 113 H Carbon Dioxide 19.5 L Anion Gap 9 BUN 46 H Creatinine 2.43 H Estimated GFR 26 L POC Glucose Random Glucose 146 H Lactic Acid 2.2 H Calcium 7.6 L Phosphorus 2.6 Magnesium 1.7 Total Bilirubin 0.4 AST 33 ALT 44 Alkaline Phosphatase 112 Troponin I B-Natriuretic Peptide Total Protein 6.7 Albumin 2.7 L Urine Color Urine Clarity Urine pH Ur Specific Sultana Urine Protein Urine Glucose (UA) Urine Ketones Urine Occult Blood Urine Nitrate Urine Bilirubin Urine Urobilinogen Ur Leukocyte Esterase Urine RBC Urine WBC Ur Squamous Epith Cells Amorphous Sediment Urine Bacteria Micro UA Comment Ur Microscopic Review Urine Culture Comments Nasal Screen MRSA (PCR) Result Diagrams: 08/17/18 10:54 08/17/18 15:17 Microbiology: Microbiology 08/17/18 03:15 Influenza Types A,B Antigen - Final Nasal Wash Negative for FLU A and B antigen Infection due to influenza A or B cannot be ruled out since the antigen present in the sample may be below the detection limit of the test. Imaging: Chest X-Ray 08/17/18 02:07 CONCLUSION: The lungs are clear. Abdomen/Pelvis CT 08/17/18 02:08 CONCLUSION: 1. Interval development of dilation of the left renal collecting system and ureter with double J stent coursing from the collecting system into the diverting bowel loop right lower quadrant. 2. Stable bilateral renal calcifications including right renal pelvis. 3. Stable gallstones. 4. Stable mid abdominal aortic aneurysm measuring 3.5 cm. Patient/Family Conference Present at Family Conference: Met with patient at bedside. Later spoke with son, Mo via telephone. Family Conference Time: 60 Family Conference Location: Bedside, Telephone Issues Discussed: * Palliative care role, purpose, approach * Additional medical, psychosocial, and spiritual history * Patients general health, functional status, and cognitive changes in the months leading up to the current hospitalization * Patient/family understanding of the current medical problems * Patient/family understanding of prognosis * Patients goals of care as best understood from advance directives and/or conversations and/or values * Current medical treatment options and benefits/burdens of those options * Likely scenarios comparing ongoing aggressive care with a transition to comfort measures only * Questions answered to the best of my ability * Palliative care contact information provided Patient desires continued aggressive care. Family supports patient wishes. Assessment and Plan - Disease Oriented Problem List (1) C. difficile colitis (2) Obstructive uropathy (3) Acute on chronic kidney failure - Symptom Scale (1) Dyspnea 0-10 Scale: 0 (2) Weakness 0-10 Scale: 0 Pertinent Non-Medical Issues: Psychosocial: . Resident of [facility]. Has 2 sons (Mo and Iraj) and 1 daughter (Hamzah)live in [place]. Spiritual: Caodaism lucila. Legal:Patient is capacitated to make his own healthcare decisions. DURABLE POWER OF DRIED YEAST SUPERVISOR and designation of healthcare surrogate dated 01/30/2018 names son Mo Gordon and daughter Hamzah Lyle as co-agents and code healthcare surrogate's who are authorized to act jointly OR individually. Ethical issues impacting care: No known concerns at this time. Important Contacts: * Mo Redmond, son: [phone] * Hamzah Lyle, daughter: [phone] Prognosis: Mr. Gordon is a 78-year-old man with recurrent urosepsis, C. difficile and multiple hospitalizations. He remains high risk for further setbacks and decline given his multiple comorbidities, repeat hospitalizations, debility. Code Status: Full Code Plan: * Patient is capacitated to make his own healthcare decisions. Patient is capacitated to make his own healthcare decisions. DURABLE POWER OF DRIED YEAST SUPERVISOR and designation of healthcare surrogate dated 01/30/2018 names son Mo Gordon and daughter Hamzah Lyle as co-agents and code healthcare surrogate's who are authorized to act jointly OR individually. Sent to HIM to be scanned into EMR. * FULL CODE * Goals remain aggressive at this time including FULL Code, desire to proceed with central line placement, nephrostomy tubes and pressor support if needed. * SYMPTOMS: Dyspnea: On oxygen via mask. Weakness: Secondary to debility, infection, hypotension. No new medication recommendations at this time. * Palliative care number provided. * Palliative care will continue to follow throughout hospital course to assist with symptom management and further clarification of goals of medical treatment. Appreciation Thank you for the opportunity to participate in the care of Juan Pablo Gordon. Attestation Attestation: To help prompt me to consider important information that might be impacting today's encounter and assessment, information from prior notes written by myself or my colleagues may have been "brought forward" into today's note. My signature on this note, however, is an attestation that I personally performed the exam, history, and/or decision-making noted today, and, unless otherwise indicated, the interactions with patient, family, and staff as well as the review of records all occurred today. I also attest that the listed assessment and stated plan reflect my best clinical judgment today based on the combination of historical information, prior notes, and today's exam/ interactions. When time spent is documented, it refers only to time spent today by the signer, or if indicated, combined time spent today by collaborating physician/nurse practitioner.
--- NOTE | 2018-08-17 17:58 | P.RAD ---
Post Procedure Progress Note - Procedure Information Procedure Date: 08/17/18 Supervising Radiologist: Gerald Castrejon MD Estimated blood loss (mL): 10 Anesthesia: Conscious Sedation - Plan of Activity Patient to Unit: ROPU Patient Condition: Good See PACS Report for procedural detail/treatment.
--- NOTE | 2018-08-17 18:02 | ECG ---
Date Performed: 08/17/2018 Time Performed: 01:59:42 PTAGE: 78 years EKG: ATRIAL FIBRILLATION WITH RAPID VENTRICULAR RESPONSE ABNORMAL RHYTHM ECG Compared to PREVIOUS TRACING , heart rate is faster, otherwise no significant change. PREVIOUS TRACIN 07/19/2018 05.29 DOCTOR: Selwyn Luo Interpretating Date/Time 08/17/2018 18:01:10
[2018-08-17] MEDS: Pilocarpine HCl 5 MG Tablet PO SCH (20:32)
[2018-08-18] MEDS: Sod Chloride 0.9% Inj 1,000 ML IV.CONT SCH ×2 (00:32→10:38)
[2018-08-18] MEDS: Chlorhexidine Gluconate 2% 1 Pack (2 Cloths) TOPICAL SCH (03:18)
[2018-08-18] MEDS ORDERED: Chlorhexidine Gluconate 2% 1 Pack (2 Cloths) TOPICAL PRN (04:00)
[2018-08-18] MEDS: Heparin - SQ 10,000 UNITS/ML Vial SQ SCH ×3 (04:15→20:27)
[2018-08-18] MEDS: Piperacil/Tazo 2.25 GM Premix 2.25 GM/50 ML PIGGYBACK IV.SIG SCH ×4 (04:15→23:32)
[2018-08-18 05:33] LABS: Baso % (Auto) 0.2 % (0.0-2.0); Hematocrit 21.3 % (39.0-51.0); Lymph # (Auto) 0.8 th/mm3 (1.0-4.8); Lymph % (Auto) 4.8 % (9.0-44.0); Mean Corpuscular HGB Conc 32.6 % (32.0-36.0); Mean Corpuscular Hemoglobin 32.7 pg (27.0-34.0); Mean Corpuscular Volume 100.6 fL (80.0-100.0); Mean Platelet Volume 8.7 fL (7.0-11.0); Mono # (Auto) 1.3 th/mm3 (0.0-0.9); Neut # (Auto) 14.5 th/mm3 (1.8-7.7); Platelet Count 148 th/mm3 (150-450); Red Blood Count 2.12 mil/mm3 (4.50-5.90); Red Cell Distribution Width 14.9 % (11.6-17.2); White Blood Count 16.6 th/mm3 (4.0-11.0)
[2018-08-18 05:43] LABS: Hemoglobin 6.9 gm/dL (13.0-17.0)
[2018-08-18 05:46] LABS: Albumin 2.4 g/dL (3.4-5.0); Anion Gap 11 meq/L (5-15); Aspartate Aminotransferase 25 U/L (15-37); Blood Urea Nitrogen 45 mg/dL (7-18); Calcium 7.8 mg/dL (8.5-10.1); Carbon Dioxide 17.3 meq/L (21.0-32.0); Chloride 114 meq/L (98-107); Glomerular Filtration Rate 23 mL/min (>89); Glucose,Random 123 mg/dL (74-106); Magnesium 1.6 mg/dL (1.5-2.5); Potassium 4.7 meq/L (3.5-5.1); Sodium 142 meq/L (136-145)
[2018-08-18 05:50] LABS: Alanine Aminotransferase 40 U/L (12-78); Alkaline Phosphatase 98 U/L (45-117); Phosphorus 3.6 mg/dL (2.5-4.9); Total Protein 6.3 g/dL (6.4-8.2); Vancomycin,Random 8.6 Comment
[2018-08-18] MEDS ORDERED: Digoxin Inj 500 MCG/2 ML Ampul IV.PUSH ONE (06:00)
[2018-08-18] MEDS: Famotidine 20 MG Tablet PO SCH ×2 (08:43→20:27)
[2018-08-18] MEDS: levETIRAcetam 500 MG Tablet PO SCH ×2 (08:43→20:27)
[2018-08-18] MEDS: Famotidine PF Inj 20 MG/2 ML Vial IV.PUSH SCH ×2 (08:43→20:28)
[2018-08-18] MEDS: Pilocarpine HCl 5 MG Tablet PO SCH ×2 (08:43→20:27)
[2018-08-18] MEDS: Senna/Docusate Sodium 8.6/50 MG Tablet PO SCH ×2 (08:44→20:27)
--- NOTE | 2018-08-18 09:12 | IR ---
EXAM DATE: 08/17/2018 6:25 PM EST AGE/SEX: 78 years / Male INDICATIONS: 78-year-old male with history of obstructive uropathy secondary to stone disease with m ultiple prior interventions including multiple nephrostomy tube placements and ureteral stent placeme nts with multiple accidental dislodgment and reinsertions. He is status post lithotripsy with placeme nt of left ureteral stent. Patient presents with urinary sepsis and obstructive uropathy. Therefore, bilateral nephrostomy catheter placements have been requested. CLINICAL DATA: This is the patient's subsequent encounter. Patient reports that signs and symptoms h ave been present for 1 day and indicates a pain score of 7/10. MEDICAL/SURGICAL HISTORY: Hypertension. Hypercholesterolemia. C-Diff, MRSA, A-Fib, COPD, CKD, Kidney stones, Prostate cancer, Subdural hematoma, UTI, Parotid mass Nephrostomy tube, left. Nephro stomy tube, right. Parotidectomy, Urostomy COMPARISON: No prior exams available for comparison. FLUORO TIME (min): 15 IMAGE SERIES: 6 RADIATION DOSE: 261mGy SEDATION TIME (min): 60 CONTRAST (cc): 15cc Omnipaque (iohexol) 350 MEDICATION(S): 3mg midazolam (Versed) IV 150mcg fentanyl (Sublimaze) IV DEVICE(S): 8 Turkish nephrostomy catheter Expel . . PROCEDURE : 1. Ultrasound-guided puncture of the kidney. 2. Antegrade percutaneous pyelogram. 3. Percutaneous nephrostomy placement. 4. Conscious sedation with continuous EKG and oximetry monitoring. The risks, benefits and alternatives to the procedure were explained and verbal and written consent w as obtained. The site was prepped in sterile fashion. Full sterile technique was used, including ca p, mask, sterile gloves and gown and a large sterile sheet. Hand hygiene and 2% chlorhexidine and/or betadine/alcohol prep was utilized per protocol for cutaneous antisepsis. Sterile gel and sterile probe cover were utilized for ultrasound guidance. The skin and subcutaneous tissues were infiltrate d with local anesthetic solution. With ultrasound and fluoroscopic guidance the selected kidney was punctured and a percutaneous antegr sergo pyelogram was performed demonstrating a dilated collecting system. Serial dilatation was perform ed and a prescribed nephrostomy tube was placed within the renal pelvis and sutured in place. Conscious sedation was performed with the prescribed dosages and duration as above in the presence of an independent trained radiology nurse to assist in the monitoring of the patient. EKG and oximetry remained stable throughout the procedure. The patient tolerated the procedure well and there were n o complications. The patient was sent to post anesthesia recovery in stable condition. CONCLUSION: 1. Uncomplicated nephrostomy tube placement as above. Electronically signed by: Gerald Castrejon MD Board Certified Radiologist 08/18/2018 9:10 AM JAYDON Mckeon
--- NOTE | 2018-08-18 09:12 | IR ---
EXAM DATE: 08/17/2018 6:26 PM EST AGE/SEX: 78 years / Male INDICATIONS: 78-year-old male with history of obstructive uropathy secondary to stone disease with m ultiple prior interventions including multiple nephrostomy tube placements and ureteral stent placeme nts with multiple accidental dislodgment and reinsertions. He is status post lithotripsy with placeme nt of left ureteral stent. Patient presents with urinary sepsis and obstructive uropathy. Therefore, bilateral nephrostomy catheter placements have been requested. CLINICAL DATA: This is the patient's subsequent encounter. Patient reports that signs and symptoms h ave been present for 1 day and indicates a pain score of 7/10. MEDICAL/SURGICAL HISTORY: Hypertension. Hypercholesterolemia. C-Diff, MRSA, A-Fib, COPD, CKD, Kidney stones, Prostate cancer, Subdural hematoma, UTI, Parotid mass Nephrostomy tube, left. Nephro stomy tube, right. Parotidectomy, Urostomy, COMPARISON: [facility] [place], CT ABDOMEN & PELVIS W/O CONTRAST, 08/17/2018. . FLUORO TIME (min): 15 IMAGE SERIES: 6 RADIATION DOSE: 261mGy SEDATION TIME (min): 60 CONTRAST (cc): 15cc Omnipaque (iohexol) 350 MEDICATION(S): 3mg midazolam (Versed) IV 150mcg fentanyl (Sublimaze) IV DEVICE(S): 8 Wolof nephrostomy catheter Expel . . PROCEDURE : 1. Ultrasound-guided puncture of the kidney. 2. Antegrade percutaneous pyelogram. 3. Percutaneous nephrostomy placement. 4. Conscious sedation with continuous EKG and oximetry monitoring. The risks, benefits and alternatives to the procedure were explained and verbal and written consent w as obtained. The site was prepped in sterile fashion. Full sterile technique was used, including ca p, mask, sterile gloves and gown and a large sterile sheet. Hand hygiene and 2% chlorhexidine and/or betadine/alcohol prep was utilized per protocol for cutaneous antisepsis. Sterile gel and sterile probe cover were utilized for ultrasound guidance. The skin and subcutaneous tissues were infiltrate d with local anesthetic solution. With ultrasound and fluoroscopic guidance the selected kidney was punctured and a percutaneous antegr sergo pyelogram was performed demonstrating a dilated collecting system. Serial dilatation was perform ed and a prescribed nephrostomy tube was placed within the renal pelvis and sutured in place. Conscious sedation was performed with the prescribed dosages and duration as above in the presence of an independent trained radiology nurse to assist in the monitoring of the patient. EKG and oximetry remained stable throughout the procedure. The patient tolerated the procedure well and there were n o complications. The patient was sent to post anesthesia recovery in stable condition. CONCLUSION: 1. Uncomplicated nephrostomy tube placement as above. Electronically signed by: Gerald Castrejon MD Board Certified Radiologist 08/18/2018 9:11 AM JAYDON Mckeon
[2018-08-18] MEDS ORDERED: Vancomycin Inj 1,000 MG in Sodium Chlor 0.9% Inj 250 ML IV.SIG ONE (10:00)
[2018-08-18] MEDS: Multivit/Folic Acid/Minerals Chewable Tablets CHEW SCH (10:32)
[2018-08-18] MEDS: Digoxin 250 MCG Tablet PO SCH (11:19)
--- NOTE | 2018-08-18 13:16 | P.PNCC ---
Subjective Subjective Remarks/Hospital Course: 78yM who presented to the ED overnight for recurrent sepsis. The patient lives in a nursing facility and was noted to be hypotensive, tachycardic, with tactile fevers for the past day. He was seen in the emergency department and found to have leukocytosis (26K), hypotension/ tachycardia (BP 70s/50s, HR 100s on arrival), with UTI and CT scan showing obstructive uropathy of his previous RLQ urostomy. The patient was started on zosyn and admitted initially to the hospitalist service. He was given 2L of IV fluids but remained hypotensive, lactic acid persistently elevated, and critical care was requested to resume his care. The patient has a history of urostomy with multiple admissions for complications thereof and urosepsis in the past year (most recently in 06/2018) ; he has also had recurrent C diff and recurrent acute kidney injury. He reports that he lives in a detention, is able to ambulate with a walker, and is independent of most ADLs at baseline. 08/18: Patient went to IR for bilateral percutaneous nephrostomy placement yesterday, tolerated well. Required low-dose phenylephrine yesterday prior to IR procedure, now off for almost 24 hrs. BP stable overnight. Given digoxin loading dose and continued on PO dig today for rapid A fib. Also transfused 1U PRBCs for anemia. Patient's only complaint today is "I'm tired". Objective Vital Signs / I&O: Vital Signs 08/17/18 13:09 08/17/18 13:18 08/17/18 13:33 Temperature Pulse Rate 124 H 122 H 106 H Respiratory Rate 25 H 27 H 28 H Blood Pressure 89/54 L 85/50 L 96/56 L Pulse Oximetry 100 100 100 08/17/18 13:48 08/17/18 14:00 08/17/18 14:03 Temperature Pulse Rate 100 H 99 H 101 H Respiratory Rate 25 H 28 H 24 Blood Pressure 105/71 113/74 Pulse Oximetry 81 L 95 97 08/17/18 14:18 08/17/18 14:33 08/17/18 14:48 Temperature Pulse Rate 110 H 108 H 112 H Respiratory Rate 26 H 24 23 Blood Pressure 124/71 141/91 H 139/90 Pulse Oximetry 97 98 92 L 08/17/18 15:00 08/17/18 15:03 12/20/18 15:18 Temperature Pulse Rate 106 H 109 H 112 H Respiratory Rate 25 H 25 H 25 H Blood Pressure 123/71 135/77 Pulse Oximetry 97 96 98 08/17/18 15:33 08/17/18 15:48 08/17/18 16:00 Temperature 98.1 F Pulse Rate 108 H 117 H 114 H Respiratory Rate 26 H 32 H 30 H Blood Pressure 145/89 H 129/81 140/85 Pulse Oximetry 98 97 98 08/17/18 16:03 08/17/18 16:18 08/17/18 16:33 Temperature 99.7 F H Pulse Rate 115 H 118 H 117 H Respiratory Rate 30 H 29 H 30 H Blood Pressure 140/85 158/85 H 149/76 H Pulse Oximetry 99 88 L 95 08/17/18 18:00 08/17/18 18:08 08/17/18 18:11 Temperature Pulse Rate 109 H 131 H 129 H Respiratory Rate 23 22 Blood Pressure 140/83 Pulse Oximetry 92 L 08/17/18 18:26 08/17/18 18:41 08/17/18 18:56 Temperature Pulse Rate 131 H 127 H 121 H Respiratory Rate 22 22 23 Blood Pressure 121/66 131/76 145/81 H Pulse Oximetry 93 L 93 L 92 L 08/17/18 19:00 08/17/18 19:11 08/17/18 19:26 Temperature Pulse Rate 116 H 116 H 101 H Respiratory Rate 23 27 H 28 H Blood Pressure 124/83 108/66 Pulse Oximetry 88 L 95 87 L 08/17/18 19:41 08/17/18 19:55 08/17/18 19:56 Temperature Pulse Rate 130 H 100 H 101 H Respiratory Rate 35 H 20 17 Blood Pressure 162/79 H 140/79 Pulse Oximetry 99 98 97 08/17/18 20:00 08/17/18 20:11 08/17/18 20:26 Temperature 98.6 F Pulse Rate 118 H 108 H 121 H Respiratory Rate 31 H 28 H 30 H Blood Pressure 140/80 143/75 H Pulse Oximetry 86 L 96 100 08/17/18 20:41 08/17/18 20:45 08/17/18 20:56 Temperature Pulse Rate 117 H 112 H 113 H Respiratory Rate 31 H 27 H 30 H Blood Pressure 158/73 H 136/84 Pulse Oximetry 100 99 98 08/17/18 21:00 08/17/18 21:11 08/17/18 21:15 Temperature Pulse Rate 109 H 119 H 122 H Respiratory Rate 25 H 29 H 30 H Blood Pressure 138/76 Pulse Oximetry 99 99 97 08/17/18 21:26 08/17/18 21:41 08/17/18 21:56 Temperature Pulse Rate 121 H 120 H 118 H Respiratory Rate 29 H 27 H 29 H Blood Pressure 137/75 126/82 138/73 Pulse Oximetry 97 98 98 08/17/18 22:00 08/17/18 22:11 08/17/18 22:26 Temperature Pulse Rate 122 H 123 H 123 H Respiratory Rate 29 H 27 H 27 H Blood Pressure 126/67 121/66 Pulse Oximetry 97 97 97 08/17/18 22:41 08/17/18 22:56 08/17/18 23:00 Temperature Pulse Rate 123 H 119 H 123 H Respiratory Rate 30 H 27 H 28 H Blood Pressure 130/75 132/70 Pulse Oximetry 99 98 97 08/17/18 23:11 08/17/18 23:26 08/17/18 23:41 Temperature Pulse Rate 121 H 119 H 110 H Respiratory Rate 27 H 27 H 32 H Blood Pressure 120/79 123/73 119/56 L Pulse Oximetry 98 98 98 08/17/18 23:56 08/18/18 00:00 08/18/18 00:11 Temperature 99.3 F Pulse Rate 111 H 107 H 118 H Respiratory Rate 25 H 25 H 27 H Blood Pressure 127/72 133/70 Pulse Oximetry 100 99 100 08/18/18 00:20 08/18/18 00:26 08/18/18 00:41 Temperature Pulse Rate 117 H 106 H 108 H Respiratory Rate 22 27 H 26 H Blood Pressure 114/59 L 110/60 Pulse Oximetry 100 98 08/18/18 00:56 08/18/18 01:00 08/18/18 01:11 Temperature Pulse Rate 114 H 106 H 107 H Respiratory Rate 25 H 26 H 25 H Blood Pressure 97/58 L 108/76 Pulse Oximetry 98 87 L 100 08/18/18 01:26 08/18/18 01:41 08/18/18 01:56 Temperature Pulse Rate 120 H 130 H 120 H Respiratory Rate 24 25 H 25 H Blood Pressure 123/60 116/60 109/58 L Pulse Oximetry 99 99 99 08/18/18 02:00 08/18/18 02:11 08/18/18 02:26 Temperature Pulse Rate 126 H 118 H 121 H Respiratory Rate 24 24 34 H Blood Pressure 104/64 110/60 Pulse Oximetry 99 100 95 08/18/18 04:00 08/18/18 04:23 08/18/18 05:00 Temperature 99.1 F Pulse Rate 111 H 107 H 130 H Respiratory Rate 23 20 26 H Blood Pressure 126/59 L 105/73 Pulse Oximetry 100 100 08/18/18 06:00 08/18/18 07:00 08/18/18 08:00 Temperature 98.2 F Pulse Rate 130 H 116 H 116 H Respiratory Rate 25 H 20 20 Blood Pressure 113/64 122/59 L 122/59 L Pulse Oximetry 98 99 91 L 08/18/18 08:22 08/18/18 08:46 08/18/18 08:49 Temperature 98.2 F Pulse Rate 109 H 119 H Respiratory Rate 17 18 Blood Pressure 122/59 L Pulse Oximetry 99 99 08/18/18 09:00 08/18/18 09:30 08/18/18 10:00 Temperature 100 F H Pulse Rate 112 H 132 H 121 H Respiratory Rate 20 26 H 20 Blood Pressure 136/71 133/72 130/64 Pulse Oximetry 99 98 98 08/18/18 11:00 08/18/18 11:23 08/18/18 12:00 Temperature 99.6 F Pulse Rate 127 H 113 H 81 Respiratory Rate 20 20 20 Blood Pressure 106/59 L 115/58 L 108/58 L Pulse Oximetry 98 98 Intake & Output 08/17/18 08/18/18 08/18/18 18:59 06:59 18:59 Intake Total 4800 / 4800 1390 / 1390 1550 / 1550 Output Total 420 / 420 1325 / 1325 300 / 300 Balance 4380 / 4380 65 / 65 1250 / 1250 Weight 68.4 kg Intake: IV 3800 / 3800 1150 / 1150 1050 / 1050 NS Inj 1,000 ML @ 100 mls/hr IV 1000 / 1000 1000 / 1000 1000 / 1000 .CONT .Q10H [facility] Rx#:[id number] Zosyn 2.25 GM Premix 2.25 gm In 50 / 50 150 / 150 50 / 50 50 ml @ 100 mls/hr IV.SIG Q6H [facility] Rx#:[id number] NS Inj 1,000 ML @ Wide Open IV. 1999 SIG BOLUS ONE Rx#:[id number] NS Inj 500 ML @ Wide Open IV. 500 / 500 SIG BOLUS ONE Rx#:[id number] Vancomycin Inj 1,000 MG In NS 250 / 250 Inj 250 ML @ 250 mls/hr IV.SIG ONCE ONE Rx#:[id number] Oral 1000 / 1000 240 / 240 Other 100 / 100 Rbc As-3 Leukoreduced Unit 100 / 100 [id number] Intake (Blood Product) Amt 400 / 400 Rbc As-3 Leukoreduced Unit 400 / 400 [id number] Output: Urine Amount (Stoma) 420 / 420 750 / 750 Pre-Hospital: Continent 420 / 420 750 / 750 Urostomy Right Wound Drainage 575 / 575 300 / 300 Left Lower Lateral Abdomen 500 / 500 300 / 300 Pigtail Right Lower Lateral Abdomen 75 / 75 Pigtail Other: Other Intake Source Rbc As-3 Leukoreduced Unit Saline Solution [id number] Date of Last Bowel Movement 08/17/18 08/17/18 08/17/18 Result Diagrams: 08/18/18 04:18 08/18/18 04:18 Objective Remarks: GEN: Elderly male, frail, lying in bed in no acute distress HEENT: NCAT, PERRL NECK: Trachea midline CARDIO: Irregularly irregular, HR 80s on diagnostic cardiac sonographer PULM: Clear to auscultation bilaterally ABD/GI: Soft, non-tender in all quadrants, non-distended, bilateral nephrostomies present EXT/MSK: No peripheral edema SKIN: Warm and dry NEURO: Awake and alert, no focal neuro deficits PSYCH: Appropriate affect Assessment and Plan - Assessment and Plan Plan: 78yM presenting with recurrent urosepsis/ septic shock complicated by obstructive uropathy/ urostomy NEURO: History of seizure disorder * Continue home dose of keppra * Delirium precautions (lights on/ shades up during the day, limit night time disruptions, frequent reorientation, avoid deliriogenic meds) CARDIO: History of atrial fibrillation, now with RVR Hypotension secondary to septic shock-- resolved Chronic orthostatic hypotension * Appears euvolemic today * Trop negative x 3, no longer trending * Patient does not have any anticoagulants listed on home meds, continue DVT prophylaxis * Continue home doses of midodrine/ fludrocortisone * Stable AAA seen on CT abd/pelvis measuring 3.5 cm, outpatient follow up * Continue digoxin for rate control, check dig level in AM PULM: History of COPD * Incentive spirometer * Scheduled/ PRN nebs F/E/N, RENAL: Acute on chronic kidney injury-- improving Hyperkalemia-- resolved Dehydration-- resolved History of parotidectomy * Cardiac diet * D/C IVF * Strict Is/Os * Trend BUN/ creat * Continue home dose of pilocarpine to aid in salivation as patient has had a parotidectomy : Obstructive uropathy-- resolved History of RLQ urostomy with double J stent Bilateral nephrostomies * CT scan on admission showed dilation of the left renal collecting system and ureter with double J stent coursing from the collecting system into the diverting bowel loop in the RLQ which has developed since his last CT scan in June * Patient had bilateral percutaneous nephrostomies placed yesterday by IR * Urology following ID: Septic shock, urosepsis-- improving Lactic acidosis-- resolving History of C diff colitis * C diff toxin negative * MRSA swab negative * Continue renally-adjusted zosyn, d/c vanco * Urine culture growing pseudomonas and entercoccus, follow up sensitivities and de-escalate antibiotics HEME: Anemia requiring transfusions * Hg this morning 6.9, given 1U PRBCs. I suspect this is due to aggressive crystalloid resuscitation yesterday and not blood loss anemia as patient had no significant blood loss reported during IR procedures and has no signs of other bleeding. PROPHY: -SCDs, SQH -PPI OVERALL: This patient has resolving septic shock, keep in ICU today. If he remains hemodynamically stable overnight, he can be transferred to hospitalist service in AM. Level 2 To help prompt me to consider important information that might be impacting today's encounter and assessment, information from prior notes written by myself or my colleagues may have been "brought forward" into today's note. My signature on this note, however, is an attestation that I personally performed the exam, history, and/or decision-making noted today, and, unless otherwise indicated, the interactions with patient, family, and staff as well as the review of records all occurred today. I also attest that the listed assessment and stated plan reflect my best clinical judgment today based on the combination of historical information, prior notes, and today's exam/ interactions. Code Status: Full
--- NOTE | 2018-08-18 13:35 | P.PNURO ---
Subjective Patient symptoms today: Pt was seen at bedside. s/p bilateral nephrostomies yesterday. tolerated well. no pain. Labs are improving. VS are stable. Has + UC Objective Vital Signs: Vital Signs 08/17/18 13:48 08/17/18 14:00 08/17/18 14:03 Temperature Pulse Rate 100 H 99 H 101 H Respiratory Rate 25 H 28 H 24 Blood Pressure 105/71 113/74 Pulse Oximetry 81 L 95 97 08/17/18 14:18 08/17/18 14:33 08/17/18 14:48 Temperature Pulse Rate 110 H 108 H 112 H Respiratory Rate 26 H 24 23 Blood Pressure 124/71 141/91 H 139/90 Pulse Oximetry 97 98 92 L 08/17/18 15:00 08/17/18 15:03 08/17/18 15:18 Temperature Pulse Rate 106 H 109 H 112 H Respiratory Rate 25 H 25 H 25 H Blood Pressure 123/71 135/77 Pulse Oximetry 97 96 98 08/17/18 15:33 08/17/18 15:48 08/17/18 16:00 Temperature 98.1 F Pulse Rate 108 H 117 H 114 H Respiratory Rate 26 H 32 H 30 H Blood Pressure 145/89 H 129/81 140/85 Pulse Oximetry 98 97 98 08/17/18 16:03 08/17/18 16:18 08/17/18 16:33 Temperature 99.7 F H Pulse Rate 115 H 118 H 117 H Respiratory Rate 30 H 29 H 30 H Blood Pressure 140/85 158/85 H 149/76 H Pulse Oximetry 99 88 L 95 08/17/18 18:00 08/17/18 18:08 08/17/18 18:11 Temperature Pulse Rate 109 H 131 H 129 H Respiratory Rate 23 22 Blood Pressure 140/83 Pulse Oximetry 92 L 08/17/18 18:26 08/17/18 18:41 08/17/18 18:56 Temperature Pulse Rate 131 H 127 H 121 H Respiratory Rate 22 22 23 Blood Pressure 121/66 131/76 145/81 H Pulse Oximetry 93 L 93 L 92 L 08/17/18 19:00 08/17/18 19:11 08/17/18 19:26 Temperature Pulse Rate 116 H 116 H 101 H Respiratory Rate 23 27 H 28 H Blood Pressure 124/83 108/66 Pulse Oximetry 88 L 95 87 L 08/17/18 19:41 08/17/18 19:55 08/17/18 19:56 Temperature Pulse Rate 130 H 100 H 101 H Respiratory Rate 35 H 20 17 Blood Pressure 162/79 H 140/79 Pulse Oximetry 99 98 97 08/17/18 20:00 08/17/18 20:11 08/17/18 20:26 Temperature 98.6 F Pulse Rate 118 H 108 H 121 H Respiratory Rate 31 H 28 H 30 H Blood Pressure 140/80 143/75 H Pulse Oximetry 86 L 96 100 08/17/18 20:41 08/17/18 20:45 08/17/18 20:56 Temperature Pulse Rate 117 H 112 H 113 H Respiratory Rate 31 H 27 H 30 H Blood Pressure 158/73 H 136/84 Pulse Oximetry 100 99 98 08/17/18 21:00 08/17/18 21:11 08/17/18 21:15 Temperature Pulse Rate 109 H 119 H 122 H Respiratory Rate 25 H 29 H 30 H Blood Pressure 138/76 Pulse Oximetry 99 99 97 08/17/18 21:26 08/17/18 21:41 08/17/18 21:56 Temperature Pulse Rate 121 H 120 H 118 H Respiratory Rate 29 H 27 H 29 H Blood Pressure 137/75 126/82 138/73 Pulse Oximetry 97 98 98 08/17/18 22:00 08/17/18 22:11 08/17/18 22:26 Temperature Pulse Rate 122 H 123 H 123 H Respiratory Rate 29 H 27 H 27 H Blood Pressure 126/67 121/66 Pulse Oximetry 97 97 97 08/17/18 22:41 08/17/18 22:56 08/17/18 23:00 Temperature Pulse Rate 123 H 119 H 123 H Respiratory Rate 30 H 27 H 28 H Blood Pressure 130/75 132/70 Pulse Oximetry 99 98 97 08/17/18 23:11 08/17/18 23:26 08/17/18 23:41 Temperature Pulse Rate 121 H 119 H 110 H Respiratory Rate 27 H 27 H 32 H Blood Pressure 120/79 123/73 119/56 L Pulse Oximetry 98 98 98 08/17/18 23:56 08/18/18 00:00 08/18/18 00:11 Temperature 99.3 F Pulse Rate 111 H 107 H 118 H Respiratory Rate 25 H 25 H 27 H Blood Pressure 127/72 133/70 Pulse Oximetry 100 99 100 08/18/18 00:20 08/18/18 00:26 08/18/18 00:41 Temperature Pulse Rate 117 H 106 H 108 H Respiratory Rate 22 27 H 26 H Blood Pressure 114/59 L 110/60 Pulse Oximetry 100 98 08/18/18 00:56 08/18/18 01:00 08/18/18 01:11 Temperature Pulse Rate 114 H 106 H 107 H Respiratory Rate 25 H 26 H 25 H Blood Pressure 97/58 L 108/76 Pulse Oximetry 98 87 L 100 08/18/18 01:26 08/18/18 01:41 08/18/18 01:56 Temperature Pulse Rate 120 H 130 H 120 H Respiratory Rate 24 25 H 25 H Blood Pressure 123/60 116/60 109/58 L Pulse Oximetry 99 99 99 08/18/18 02:00 08/18/18 02:11 08/18/18 02:26 Temperature Pulse Rate 126 H 118 H 121 H Respiratory Rate 24 24 34 H Blood Pressure 104/64 110/60 Pulse Oximetry 99 100 95 08/18/18 04:00 08/18/18 04:23 08/18/18 05:00 Temperature 99.1 F Pulse Rate 111 H 107 H 130 H Respiratory Rate 23 20 26 H Blood Pressure 126/59 L 105/73 Pulse Oximetry 100 100 08/18/18 06:00 08/18/18 07:00 08/18/18 08:00 Temperature 98.2 F Pulse Rate 130 H 116 H 116 H Respiratory Rate 25 H 20 20 Blood Pressure 113/64 122/59 L 122/59 L Pulse Oximetry 98 99 91 L 08/18/18 08:22 08/18/18 08:46 08/18/18 08:49 Temperature 98.2 F Pulse Rate 109 H 119 H Respiratory Rate 17 18 Blood Pressure 122/59 L Pulse Oximetry 99 99 08/18/18 09:00 08/18/18 09:30 08/18/18 10:00 Temperature 100 F H Pulse Rate 112 H 132 H 121 H Respiratory Rate 20 26 H 20 Blood Pressure 136/71 133/72 130/64 Pulse Oximetry 99 98 98 08/18/18 11:00 08/18/18 11:23 08/18/18 12:00 Temperature 99.6 F Pulse Rate 127 H 113 H 81 Respiratory Rate 20 20 20 Blood Pressure 106/59 L 115/58 L 108/58 L Pulse Oximetry 98 98 Intake & Output 08/17/18 08/18/18 08/18/18 18:59 06:59 18:59 Intake Total 4800 / 4800 1390 / 1390 1550 / 1550 Output Total 420 / 420 1325 / 1325 300 / 300 Balance 4380 / 4380 65 / 65 1250 / 1250 Weight 68.4 kg Intake: IV 3800 / 3800 1150 / 1150 1050 / 1050 NS Inj 1,000 ML @ 100 mls/hr IV 1000 / 1000 1000 / 1000 1000 / 1000 .CONT .Q10H [facility] Rx#:[id number] Zosyn 2.25 GM Premix 2.25 gm In 50 / 50 150 / 150 50 / 50 50 ml @ 100 mls/hr IV.SIG Q6H [facility] Rx#:[id number] NS Inj 1,000 ML @ Wide Open IV. 1999 / 1999 [facility] Rx#:[id number] NS Inj 500 ML @ Wide Open IV. 500 / 500 [facility] Rx#:[id number] Vancomycin Inj 1,000 MG In NS 250 / 250 Inj 250 ML @ 250 mls/hr IV.SIG ONCE ONE Rx#:[id number] Oral 1000 / 1000 240 / 240 Other 100 / 100 Rbc As-3 Leukoreduced Unit 100 / 100 [id number] Intake (Blood Product) Amt 400 / 400 Rbc As-3 Leukoreduced Unit 400 / 400 [id number] Output: Urine Amount (Stoma) 420 / 420 750 / 750 Pre-Hospital: Continent 420 / 420 750 / 750 Urostomy Right Wound Drainage 575 / 575 300 / 300 Left Lower Lateral Abdomen 500 / 500 300 / 300 Pigtail Right Lower Lateral Abdomen 75 / 75 Pigtail Other: Other Intake Source Rbc As-3 Leukoreduced Unit Saline Solution [id number] Date of Last Bowel Movement 08/17/18 08/17/18 08/17/18 Result Diagrams: 08/18/18 04:18 08/18/18 04:18 Imaging: Impressions Nephrostomy 08/17/18 00:00 CONCLUSION: 1. Uncomplicated nephrostomy tube placement as above. Nephrostomy 08/17/18 00:00 CONCLUSION: 1. Uncomplicated nephrostomy tube placement as above. Medications and IVs: Active Medications Generic Name Dose Route Start Last Admin Trade Name Freq PRN Reason Stop Dose Admin Acetaminophen 650 mg 08/17/18 04:31 Tylenol PO Q4H PRN Temp > 100.4 Al Hydroxide/Mg Hydroxide 30 ml 08/17/18 04:31 Milk Of Magnesia Liq PO Q12H PRN Mild Constipation Albuterol 1 ampul 08/17/18 08:39 Duoneb Neb (Prn) NEB Q2HR NEB PRN WHEEZING Albuterol 1 ampul 08/17/18 12:00 08/18/18 11:56 Duoneb Neb (Marko) NEB Not Given Q4HR NEB MARKO Bisacodyl 10 mg 08/17/18 04:31 Dulcolax Supp RECTAL DAILY PRN SEVERE CONSITIPATION Chlorhexidine Gluconate 3 pack 08/18/18 04:00 08/18/18 03:18 Chlorhexidine 2% Cloth TOPICAL 08/23/18 03:59 3 pack DAILY@0400 MARKO Administration Chlorhexidine Gluconate 3 pack 08/18/18 04:00 Chlorhexidine 2% Cloth TOPICAL 08/23/18 03:59 DAILY@0400 PRN Extra cloth needed Digoxin 250 mcg 08/18/18 11:00 08/18/18 11:19 Lanoxin PO 250 mcg DAILY MARKO Administration Famotidine 20 mg 08/17/18 09:00 08/18/18 08:43 Pepcid PO Not Given BID MARKO Famotidine 20 mg 08/17/18 09:00 08/18/18 08:43 Pepcid Pf Inj IV.PUSH 20 mg Q12HR MARKO Administration Fludrocortisone Acetate 0.1 mg 08/17/18 09:00 08/18/18 08:43 Florinef PO 0.1 mg DAILY MARKO Administration Heparin Sodium (Porcine) 5,000 units 08/17/18 04:45 08/18/18 12:56 Heparin Inj SQ 5,000 units Q8H MARKO Administration Piperacillin/Tazobactam/Dextrose 2.25 gm in 50 mls @ 100 mls/hr 08/17/18 11: 00 08/18/18 12:32 Zosyn 2.25 Gm Premix IV.SIG Infused Q6H MARKO Infusion Lactulose 30 ml 08/17/18 04:31 Lactulose Liq PO DAILY PRN SEVERE CONSITIPATION Levetiracetam 500 mg 08/17/18 09:00 08/18/18 08:43 Keppra PO 500 mg BID MARKO Administration Midodrine 5 mg 08/17/18 12:00 08/18/18 12:05 Proamatine PO 5 mg TID@0700,1200,1700 MARKO Administration Multivitamins/Folic Acid/Vitamin C 1 tab 08/18/18 10:00 08/18/18 10:32 Flintstones CHEW 1 tab DAILY MARKO Administration Ondansetron HCl 4 mg 08/17/18 04:31 Zofran Inj IV.PUSH Q6H PRN NAUSEA OR VOMITING [place] HCl 5 mg 08/17/18 21:00 08/18/18 08:43 Salagen PO 5 mg BID MARKO Administration Senna/Docusate Sodium 1 tab 08/17/18 09:00 08/18/18 08:44 Maggi-Colace PO Not Given BID MARKO Sennosides 17.2 mg 08/17/18 04:31 Senokot PO Q12H PRN Moderate Constipation Sodium Chloride 2 ml 08/17/18 08:39 Ns Flush IV.FLUSH PRN PRN FLUSH AFTER USING IV ACCESS Sodium Chloride 2 ml 08/17/18 09:00 08/18/18 08:43 Ns Flush IV.FLUSH 2 ml BID MARKO Administration Assessment and Plan - Plan 78y.o M with history as per HPI - Continue treatment of his sepsis as per ICU care team - Treat infection according to C&S - Once his infection clears up he will need 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
--- NOTE | 2018-08-18 16:41 | P.PNPAL ---
Reason for Visit Reason for visit: a. To assist with evaluation and management of symptoms including: dyspnea, weakness. b. To assist medical decision maker(s) with: better understanding of current medical conditions; weighing benefits/burdens of medical treatment options; making medical treatment decisions. Subjective Subjective/Interval History: Mr. Gordon is a 78 year old male with past medical history of atrial fibrillation, chronic anticoagulation, COPD, chronic kidney disease, hypertension, C. difficile infection, hyperlipidemia, kidney stones, prostate cancer, recurrent UTI, subdural hematoma. Patient was a recent resident of [facility]. This is the patient's 16th admission/ER visit to [place] this year. The patient has a history of urostomy with multiple admissions for complications thereof and urosepsis in the past year (most recently in 06/2018) ; he has also had recurrent C diff and recurrent acute kidney injury. Patient presented to [facility] emergency department on 08/17/18 from [facility] after he was found hypotensive (60/40) and tachycardic (110). Upon arrival to the emergency department patient was found to be hypotensive and tachycardic. Additional findings: * Temp 98.1, pulse 106, respiratory rate 19, blood pressure 75/52, oxygen saturation 100% * WBC 26.5, hemoglobin 9.6, hematocrit 28.9, platelet count 233, neutrophil 85.5 % * Sodium 136, potassium 5.3, chloride 103, carbon dioxide 24.3, BUN 53, creatinine 2.8, GFR 22, glucose 119 * Lactic acid 2.7 * total bilirubin 0.5, AST 30, ALT 49, alkaline phosphatase 133 * Troponin 0.06 * Total protein 7.5, albumin 3.2 * PT 10.7, INR 1.1 * Negative flu * Nasal MRSA - not detected * C. difficile - pending * Urinalysis positive leukocyte esterase, RBC, WBC, bacteria, culture indicated , results pending * CT scan abdomen/pelvis -interval development of dilation of left renal collecting system, ureter with double-J stent coursing from the collecting system into the diverting bowel loop right lower quadrant, stable bilateral renal calcifications including the right renal pelvis, stable gallstones, stable mid abdominal aortic aneurysm measuring 3.5 cm. * Chest x-ray-lungs clear. At time of my visit today, patient is lying in bed, he is somewhat irritable. He asked me to give him his tray and bedside table who are several feet away from him. He also is inquiring about a personal bag with a shaver that I was unable to locate in the room for him. Spoke with bedside nurse and nurse from room he was previously N, he does not have any belongings in either room. Will consult case management to reach out to him to go to see if his belongings were there still. Other than that, patient is stable, he is no longer requiring any pressor support. He has bilateral nephrostomy tubes, left clear drainage and right with berry-red output. Called son Mo to update, he did not answer so I left a voicemail requesting he call me back, contact information provided. Advance Directives Advance Directives Date on File: 01/30/18 Health Care Surrogate Name and Number: Mo Redmond and/or Hamzah Lyle ( see contacts for numbers) Objective Vital Signs: Vital Signs 08/17/18 16:33 08/17/18 18:00 08/17/18 18:08 Temperature Pulse Rate 117 H 109 H 131 H Respiratory Rate 30 H 23 Blood Pressure 149/76 H Pulse Oximetry 95 08/17/18 18:11 08/17/18 18:26 08/17/18 18:41 Temperature Pulse Rate 129 H 131 H 127 H Respiratory Rate 22 22 22 Blood Pressure 140/83 121/66 131/76 Pulse Oximetry 92 L 93 L 93 L 08/17/18 18:56 08/17/18 19:00 08/17/18 19:11 Temperature Pulse Rate 121 H 116 H 116 H Respiratory Rate 23 23 27 H Blood Pressure 145/81 H 124/83 Pulse Oximetry 92 L 88 L 95 08/17/18 19:26 08/17/18 19:41 08/17/18 19:55 Temperature Pulse Rate 101 H 130 H 100 H Respiratory Rate 28 H 35 H 20 Blood Pressure 108/66 162/79 H Pulse Oximetry 87 L 99 98 08/17/18 19:56 08/17/18 20:00 08/17/18 20:11 Temperature 98.6 F Pulse Rate 101 H 118 H 108 H Respiratory Rate 17 31 H 28 H Blood Pressure 140/79 140/80 Pulse Oximetry 97 86 L 96 08/17/18 20:26 08/17/18 20:41 08/17/18 20:45 Temperature Pulse Rate 121 H 117 H 112 H Respiratory Rate 30 H 31 H 27 H Blood Pressure 143/75 H 158/73 H Pulse Oximetry 100 100 99 08/17/18 20:56 08/17/18 21:00 08/17/18 21:11 Temperature Pulse Rate 113 H 109 H 119 H Respiratory Rate 30 H 25 H 29 H Blood Pressure 136/84 138/76 Pulse Oximetry 98 99 99 08/17/18 21:15 08/17/18 21:26 08/17/18 21:41 Temperature Pulse Rate 122 H 121 H 120 H Respiratory Rate 30 H 29 H 27 H Blood Pressure 137/75 126/82 Pulse Oximetry 97 97 98 08/17/18 21:56 08/17/18 22:00 08/17/18 22:11 Temperature Pulse Rate 118 H 122 H 123 H Respiratory Rate 29 H 29 H 27 H Blood Pressure 138/73 126/67 Pulse Oximetry 98 97 97 08/17/18 22:26 08/17/18 22:41 08/17/18 22:56 Temperature Pulse Rate 123 H 123 H 119 H Respiratory Rate 27 H 30 H 27 H Blood Pressure 121/66 130/75 132/70 Pulse Oximetry 97 99 98 08/17/18 23:00 08/17/18 23:11 08/17/18 23:26 Temperature Pulse Rate 123 H 121 H 119 H Respiratory Rate 28 H 27 H 27 H Blood Pressure 120/79 123/73 Pulse Oximetry 97 98 98 08/17/18 23:41 08/17/18 23:56 08/18/18 00:00 Temperature 99.3 F Pulse Rate 110 H 111 H 107 H Respiratory Rate 32 H 25 H 25 H Blood Pressure 119/56 L 127/72 Pulse Oximetry 98 100 99 08/18/18 00:11 08/18/18 00:20 08/18/18 00:26 Temperature Pulse Rate 118 H 117 H 106 H Respiratory Rate 27 H 22 27 H Blood Pressure 133/70 114/59 L Pulse Oximetry 100 100 08/18/18 00:41 08/18/18 00:56 08/18/18 01:00 Temperature Pulse Rate 108 H 114 H 106 H Respiratory Rate 26 H 25 H 26 H Blood Pressure 110/60 97/58 L Pulse Oximetry 98 98 87 L 08/18/18 01:11 08/18/18 01:26 08/18/18 01:41 Temperature Pulse Rate 107 H 120 H 130 H Respiratory Rate 25 H 24 25 H Blood Pressure 108/76 123/60 116/60 Pulse Oximetry 100 99 99 08/18/18 01:56 08/18/18 02:00 08/18/18 02:11 Temperature Pulse Rate 120 H 126 H 118 H Respiratory Rate 25 H 24 24 Blood Pressure 109/58 L 104/64 Pulse Oximetry 99 99 100 08/18/18 02:26 08/18/18 04:00 08/18/18 04:23 Temperature 99.1 F Pulse Rate 121 H 111 H 107 H Respiratory Rate 34 H 23 20 Blood Pressure 110/60 126/59 L Pulse Oximetry 95 100 08/18/18 05:00 08/18/18 06:00 08/18/18 07:00 Temperature Pulse Rate 130 H 130 H 116 H Respiratory Rate 26 H 25 H 20 Blood Pressure 105/73 113/64 122/59 L Pulse Oximetry 100 98 99 08/18/18 08:00 08/18/18 08:22 08/18/18 08:46 Temperature 98.2 F 98.2 F Pulse Rate 116 H 109 H 119 H Respiratory Rate 20 17 18 Blood Pressure 122/59 L 122/59 L Pulse Oximetry 91 L 99 08/18/18 08:49 08/18/18 09:00 08/18/18 09:30 Temperature Pulse Rate 112 H 132 H Respiratory Rate 20 26 H Blood Pressure 136/71 133/72 Pulse Oximetry 99 99 98 08/18/18 10:00 08/18/18 11:00 08/18/18 11:23 Temperature 100 F H Pulse Rate 121 H 127 H 113 H Respiratory Rate 20 20 20 Blood Pressure 130/64 106/59 L 115/58 L Pulse Oximetry 98 98 08/18/18 12:00 08/18/18 13:00 08/18/18 14:00 Temperature 99.6 F Pulse Rate 81 82 87 Respiratory Rate 20 28 H 26 H Blood Pressure 108/58 L 115/58 L 111/64 Pulse Oximetry 98 99 100 08/18/18 15:00 08/18/18 16:00 Temperature Pulse Rate 86 75 Respiratory Rate 25 H 30 H Blood Pressure 113/60 119/58 L Pulse Oximetry 100 98 Intake & Output 08/17/18 08/18/1818 18:59 06:59 18:59 Intake Total 4800 / 4800 1390 / 1390 1550 / 1550 Output Total 420 / 420 1325 / 1325 300 / 300 Balance 4380 / 4380 65 / 65 1250 / 1250 Weight 68.4 kg Intake: IV 3800 / 3800 1150 / 1150 1050 / 1050 NS Inj 1,000 ML @ 100 mls/hr IV 1000 / 1000 1000 / 1000 1000 / 1000 .CONT .Q10H TRAVIS Rx#:[id number] Zosyn 2.25 GM Premix 2.25 gm In 50 / 50 150 / 150 50 / 50 50 ml @ 100 mls/hr IV.SIG Q6H TRAVIS Rx#:[id number] NS Inj 1,000 ML @ Wide Open IV. 1999 / 1999 SIG BOLUS ONE Rx#:[id number] NS Inj 500 ML @ Wide Open IV. 500 / 500 SIG BOLUS ONE Rx#:[id number] Vancomycin Inj 1,000 MG In NS 250 / 250 Inj 250 ML @ 250 mls/hr IV.SIG ONCE ONE Rx#:[id number] Oral 1000 / 1000 240 / 240 Other 100 / 100 Rbc As-3 Leukoreduced Unit 100 / 100 [id number] Intake (Blood Product) Amt 400 / 400 Rbc As-3 Leukoreduced Unit 400 / 400 [id number] Output: Urine Amount (Stoma) 420 / 420 750 / 750 Pre-Hospital: Continent 420 / 420 750 / 750 Urostomy Right Wound Drainage 575 / 575 300 / 300 Left Lower Lateral Abdomen 500 / 500 300 / 300 Pigtail Right Lower Lateral Abdomen 75 / 75 Pigtail Other: Other Intake Source Rbc As-3 Leukoreduced Unit Saline Solution [id number] Date of Last Bowel Movement 08/17/18 08/17/18 08/17/18 Physical Exam: CONSTITUTIONAL/GENERAL: This is an elderly, thin patient, in no apparent distress. TUBES/LINES/DRAINS:PIV, oxygen via mask, urostomy, SCDs SKIN: No jaundice, rashes, or lesions. Ecchymoses on upper extremities. No wounds seen anteriorly. Skin temperature appropriate. Not diaphoretic. HEAD: Atraumatic. Normocephalic. EYES: Pupils equal and round and reactive. Extraocular motions intact. No scleral icterus. No injection or drainage. Fundi not examined. ENT: Hearing grossly normal. Nose without bleeding or purulent drainage. Throat without visible erythema, exudates, masses, or lesions. NECK: Trachea midline. CARDIOVASCULAR: Tachycardic, irregularly irregular. No JVD. RESPIRATORY/CHEST: Symmetric, unlabored respirations. Clear to auscultation. GASTROINTESTINAL: Abdomen soft, non-tender, nondistended. Urostomy right lower quadrant. Bowel sounds present. GENITOURINARY: Without palpable bladder distension. MUSCULOSKELETAL: Extremities without clubbing, cyanosis, or edema. No joint tenderness or effusion noted. LYMPHATICS: No palpable cervical or supraclavicular adenopathy. NEUROLOGICAL: Awakens easily. Answers questions appropriately. Follows commands. Moves all extremities. PSYCHIATRIC: No obvious anxiety/depression. no apparent hallucinations or other psychotic thought process. Diagnostic Tests Laboratory: Laboratory Results - last 72 hr 08/17/18 08/17/18 08/17/18 03:15 03:15 03:15 WBC 26.5 H RBC 3.01 L Hgb 9.6 L Hct 28.9 L MCV 96.0 MCH 31.8 MCHC 33.1 RDW 14.4 Plt Count 233 MPV 8.4 Prelim Diff (Auto) Slide review pending Neut % (Auto) 85.5 H Lymph % (Auto) 4.0 L Lynn % (Auto) 10.3 H Eos % (Auto) 0.0 Baso % (Auto) 0.2 Neut # (Auto) 22.7 H Lymph # (Auto) 1.1 Lynn # (Auto) 2.7 H Eos # (Auto) 0.0 Baso # (Auto) 0.1 WBC Differential . Diff Scan Auto diff confirmed Differential Comment . Platelet Estimate Normal Platelet Morphology Normal RBC Morphology Normal Keratocytes PT INR Sodium 136 Potassium 5.3 H Chloride 103 Carbon Dioxide 24.3 Anion Gap 9 BUN 53 H Creatinine 2.80 H Estimated GFR 22 L POC Glucose Random Glucose 119 H Lactic Acid 2.7 H Calcium 8.1 L Phosphorus Magnesium 1.8 Total Bilirubin 0.5 AST 30 ALT 49 Alkaline Phosphatase 133 H Troponin I 0.06 H B-Natriuretic Peptide Total Protein 7.5 Albumin 3.2 L Urine Color Urine Clarity Urine pH Ur Specific [place] Urine Protein Urine Glucose (UA) Urine Ketones Urine Occult Blood Urine Nitrate Urine Bilirubin Urine Urobilinogen Ur Leukocyte Esterase Urine RBC Urine WBC Ur Squamous Epith Cells Amorphous Sediment Urine Bacteria Micro UA Comment Ur Microscopic Review Urine Culture Comments Nasal Screen MRSA (PCR) Stl C.difficile DNA Amp St C. diff Tox Epid 027 Random Vancomycin Blood Type Antibody Screen MTS Gel Crossmatch 08/17/18 08/17/18 08/17/18 03:15 03:15 05:35 WBC RBC Hgb Hct MCV MCH MCHC RDW Plt Count MPV Prelim Diff (Auto) Neut % (Auto) Lymph % (Auto) Lynn % (Auto) Eos % (Auto) Baso % (Auto) Neut # (Auto) Lymph # (Auto) Lynn # (Auto) Eos # (Auto) Baso # (Auto) WBC Differential Diff Scan Differential Comment Platelet Estimate Platelet Morphology RBC Morphology Keratocytes PT INR Sodium Potassium Chloride Carbon Dioxide Anion Gap BUN Creatinine Estimated GFR POC Glucose Random Glucose Lactic Acid 2.9 H Calcium Phosphorus Magnesium Total Bilirubin AST ALT Alkaline Phosphatase Troponin I B-Natriuretic Peptide 454 H Total Protein Albumin Urine Color Yellow Urine Clarity Cloudy H Urine pH 7.0 Ur Specific [place] 1.009 Urine Protein 100 H Urine Glucose (UA) Negative Urine Ketones Negative Urine Occult Blood Negative Urine Nitrate Negative Urine Bilirubin Negative Urine Urobilinogen Less than 2 Ur Leukocyte Esterase Large H Urine RBC 5 H Urine WBC 68 H Ur Squamous Epith Cells <1 Amorphous Sediment Occasional H Urine Bacteria Many H Micro UA Comment Cath-culture ind Ur Microscopic Review Not Reportable Urine Culture Comments Cath-cult indicated Nasal Screen MRSA (PCR) Stl C.difficile DNA Amp St C. diff Tox Epid 027 Random Vancomycin Blood Type Antibody Screen MTS Gel Crossmatch 08/17/18 08/17/18 08/17/18 05:55 10:54 10:54 WBC RBC Hgb Hct MCV MCH MCHC RDW Plt Count MPV Prelim Diff (Auto) Neut % (Auto) Lymph % (Auto) Lynn % (Auto) Eos % (Auto) Baso % (Auto) Neut # (Auto) Lymph # (Auto) Lynn # (Auto) Eos # (Auto) Baso # (Auto) WBC Differential Diff Scan Differential Comment Platelet Estimate Platelet Morphology RBC Morphology Keratocytes PT INR Sodium 139 Potassium 4.4 D Chloride 110 H Carbon Dioxide 20.4 L Anion Gap 9 BUN 46 H Creatinine 2.55 H Estimated GFR 24 L POC Glucose Random Glucose 111 H Lactic Acid Calcium 7.9 L Phosphorus 2.7 Magnesium 1.6 Total Bilirubin 0.6 AST 27 ALT 45 Alkaline Phosphatase 117 Troponin I 0.05 0.05 B-Natriuretic Peptide Total Protein 6.8 D Albumin 2.8 L Urine Color Urine Clarity Urine pH Ur Specific [place] Urine Protein Urine Glucose (UA) Urine Ketones Urine Occult Blood Urine Nitrate Urine Bilirubin Urine Urobilinogen Ur Leukocyte Esterase Urine RBC Urine WBC Ur Squamous Epith Cells Amorphous Sediment Urine Bacteria Micro UA Comment Ur Microscopic Review Urine Culture Comments Nasal Screen MRSA (PCR) Not detected Stl C.difficile DNA Amp St C. diff Tox Epid 027 Random Vancomycin Blood Type Antibody Screen MTS Gel Crossmatch 08/17/18 08/17/18 08/17/18 10:54 10:54 11:34 WBC 21.9 H RBC 2.73 L Hgb 8.9 L Hct 26.7 L MCV 97.8 MCH 32.7 MCHC 33.4 RDW 14.4 Plt Count 194 MPV 8.4 Prelim Diff (Auto) Neut % (Auto) 87.6 H Lymph % (Auto) 4.1 L Lynn % (Auto) 8.2 H Eos % (Auto) 0.0 Baso % (Auto) 0.1 Neut # (Auto) 19.2 H Lymph # (Auto) 0.9 L Lynn # (Auto) 1.8 H Eos # (Auto) 0.0 Baso # (Auto) 0.0 WBC Differential . Diff Scan Differential Comment Auto diff final Platelet Estimate Platelet Morphology RBC Morphology Keratocytes PT INR Sodium Potassium Chloride Carbon Dioxide Anion Gap BUN Creatinine Estimated GFR POC Glucose 150 H Random Glucose Lactic Acid 2.2 H Calcium Phosphorus Magnesium Total Bilirubin AST ALT Alkaline Phosphatase Troponin I B-Natriuretic Peptide Total Protein Albumin Urine Color Urine Clarity Urine pH Ur Specific [place] Urine Protein Urine Glucose (UA) Urine Ketones Urine Occult Blood Urine Nitrate Urine Bilirubin Urine Urobilinogen Ur Leukocyte Esterase Urine RBC Urine WBC Ur Squamous Epith Cells Amorphous Sediment Urine Bacteria Micro UA Comment Ur Microscopic Review Urine Culture Comments Nasal Screen MRSA (PCR) Stl C.difficile DNA Amp St C. diff Tox Epid 027 Random Vancomycin Blood Type Antibody Screen MTS Gel Crossmatch 08/17/18 08/17/18 08/17/18 13:50 15:17 15:17 WBC RBC Hgb Hct MCV MCH MCHC RDW Plt Count MPV Prelim Diff (Auto) Neut % (Auto) Lymph % (Auto) Lynn % (Auto) Eos % (Auto) Baso % (Auto) Neut # (Auto) Lymph # (Auto) Lynn # (Auto) Eos # (Auto) Baso # (Auto) WBC Differential Diff Scan Differential Comment Platelet Estimate Platelet Morphology RBC Morphology Keratocytes PT INR Sodium 141 Potassium 4.3 Chloride 113 H Carbon Dioxide 19.5 L Anion Gap 9 BUN 46 H Creatinine 2.43 H Estimated GFR 26 L POC Glucose Random Glucose 146 H Lactic Acid 2.2 H Calcium 7.6 L Phosphorus 2.6 Magnesium 1.7 Total Bilirubin 0.4 AST 33 ALT 44 Alkaline Phosphatase 112 Troponin I B-Natriuretic Peptide Total Protein 6.7 Albumin 2.7 L Urine Color Urine Clarity Urine pH Ur Specific [place] Urine Protein Urine Glucose (UA) Urine Ketones Urine Occult Blood Urine Nitrate Urine Bilirubin Urine Urobilinogen Ur Leukocyte Esterase Urine RBC Urine WBC Ur Squamous Epith Cells Amorphous Sediment Urine Bacteria Micro UA Comment Ur Microscopic Review Urine Culture Comments Nasal Screen MRSA (PCR) Stl C.difficile DNA Amp Negative St C. diff Tox Epid 027 Negative Random Vancomycin Blood Type Antibody Screen MTS Gel Crossmatch 08/17/18 08/18/18 08/18/18 15:17 04:18 04:18 WBC 16.6 H RBC 2.12 L Hgb 6.9 L* D Hct 21.3 L MCV 100.6 H MCH 32.7 MCHC 32.6 RDW 14.9 Plt Count 148 L MPV 8.7 Prelim Diff (Auto) Slide review pending Neut % (Auto) 87.0 H Lymph % (Auto) 4.8 L Lynn % (Auto) 8.0 Eos % (Auto) 0.0 Baso % (Auto) 0.2 Neut # (Auto) 14.5 H Lymph # (Auto) 0.8 L Lynn # (Auto) 1.3 H Eos # (Auto) 0.0 Baso # (Auto) 0.0 WBC Differential . Diff Scan Auto diff confirmed Differential Comment . Platelet Estimate Platelet Morphology RBC Morphology Keratocytes Occ H PT 10.7 INR 1.1 Sodium 142 Potassium 4.7 Chloride 114 H Carbon Dioxide 17.3 L Anion Gap 11 BUN 45 H Creatinine 2.68 H Estimated GFR 23 L POC Glucose Random Glucose 123 H Lactic Acid Calcium 7.8 L Phosphorus 3.6 D Magnesium 1.6 Total Bilirubin 0.4 AST 25 ALT 40 Alkaline Phosphatase 98 Troponin I B-Natriuretic Peptide Total Protein 6.3 L Albumin 2.4 L Urine Color Urine Clarity Urine pH Ur Specific [place] Urine Protein Urine Glucose (UA) Urine Ketones Urine Occult Blood Urine Nitrate Urine Bilirubin Urine Urobilinogen Ur Leukocyte Esterase Urine RBC Urine WBC Ur Squamous Epith Cells Amorphous Sediment Urine Bacteria Micro UA Comment Ur Microscopic Review Urine Culture Comments Nasal Screen MRSA (PCR) Stl C.difficile DNA Amp St C. diff Tox Epid 027 Random Vancomycin 8.6 Blood Type Antibody Screen MTS Gel Crossmatch 08/18/18 06:50 WBC RBC Hgb Hct MCV MCH MCHC RDW Plt Count MPV Prelim Diff (Auto) Neut % (Auto) Lymph % (Auto) Lynn % (Auto) Eos % (Auto) Baso % (Auto) Neut # (Auto) Lymph # (Auto) Lynn # (Auto) Eos # (Auto) Baso # (Auto) WBC Differential Diff Scan Differential Comment Platelet Estimate Platelet Morphology RBC Morphology Keratocytes PT INR Sodium Potassium Chloride Carbon Dioxide Anion Gap BUN Creatinine Estimated GFR POC Glucose Random Glucose Lactic Acid Calcium Phosphorus Magnesium Total Bilirubin AST ALT Alkaline Phosphatase Troponin I B-Natriuretic Peptide Total Protein Albumin Urine Color Urine Clarity Urine pH Ur Specific [place] Urine Protein Urine Glucose (UA) Urine Ketones Urine Occult Blood Urine Nitrate Urine Bilirubin Urine Urobilinogen Ur Leukocyte Esterase Urine RBC Urine WBC Ur Squamous Epith Cells Amorphous Sediment Urine Bacteria Micro UA Comment Ur Microscopic Review Urine Culture Comments Nasal Screen MRSA (PCR) Stl C.difficile DNA Amp St C. diff Tox Epid 027 Random Vancomycin Blood Type A Positive Antibody Screen Negative MTS Gel Crossmatch See Detail Result Diagrams: 08/18/18 04:18 08/18/18 04:18 Microbiology: Microbiology 08/17/18 03:15 Urine Culture - Preliminary Catheterized Urine Pseudomonas species Group D Enterococcus 08/17/18 03:00 Aerobic Blood Culture - Preliminary Blood - Peripheral No growth in 1 day Anaerobic Blood Culture - Preliminary No growth in 1 day 08/17/18 03:15 Aerobic Blood Culture - Preliminary Blood - Peripheral No growth in 1 day Anaerobic Blood Culture - Preliminary No growth in 1 day 08/17/18 03:15 Influenza Types A,B Antigen - Final Nasal Wash Negative for FLU A and B antigen Infection due to influenza A or B cannot be ruled out since the antigen present in the sample may be below the detection limit of the test. Imaging: Impressions Nephrostomy 08/17/18 00:00 CONCLUSION: 1. Uncomplicated nephrostomy tube placement as above. Nephrostomy 08/17/18 00:00 CONCLUSION: 1. Uncomplicated nephrostomy tube placement as above. Procedures: 08/18/18: Placement of bilateral nephrostomy tubes Assessment and Plan - Symptom Scale (1) Pain 0-10 Scale: Unable to quantify Pertinent Non-Medical Issues: Psychosocial: . Resident of [facility]. Has 2 sons (Mo and Iraj) and 1 daughter (Hamzah)[place] [facility]. Spiritual: [employer] lucila. Legal:Patient is capacitated to make his own healthcare decisions. DURABLE POWER OF CAD DRAFTSMAN and designation of healthcare surrogate dated 01/30/2018 names son Mo Gordon and daughter Hamzah Lyle as co-agents and code healthcare surrogate's who are authorized to act jointly OR individually. Ethical issues impacting care: No known concerns at this time. Important Contacts: * Mo Redmond, son: [phone] * Hamzah Lyle, daughter: [phone] Prognosis: Mr. Gordon is a 78-year-old man with recurrent urosepsis, C. difficile and multiple hospitalizations. He remains high risk for further setbacks and decline given his multiple comorbidities, repeat hospitalizations, debility. Code Status: Full Code Plan: * Patient is capacitated to make his own healthcare decisions. Patient is capacitated to make his own healthcare decisions. DURABLE POWER OF CAD DRAFTSMAN and designation of healthcare surrogate dated 01/30/2018 names son Mo Gordon and daughter Hamzah Lyle as co-agents and code healthcare surrogate's who are authorized to act jointly OR individually. Sent to HIM to be scanned into EMR. * FULL CODE * Goals remain aggressive at this time including FULL Code, desire to proceed with central line placement, nephrostomy tubes and pressor support if needed. * SYMPTOMS: Dyspnea: On oxygen via mask. Weakness: Secondary to debility, infection, hypotension. No new medication recommendations at this time. * Palliative care number provided. * Palliative care will continue to follow throughout hospital course to assist with symptom management and further clarification of goals of medical treatment. Attestation Collaborating MD Comments: Dr. Greer Attestation: To help prompt me to consider important information that might be impacting today's encounter and assessment, information from prior notes written by myself or my colleagues may have been "brought forward" into today's note. My signature on this note, however, is an attestation that I personally performed the exam, history, and/or decision-making noted today, and, unless otherwise indicated, the interactions with patient, family, and staff as well as the review of records all occurred today. I also attest that the listed assessment and stated plan reflect my best clinical judgment today based on the combination of historical information, prior notes, and today's exam/ interactions. When time spent is documented, it refers only to time spent today by the signer, or if indicated, combined time spent today by collaborating physician/nurse practitioner.
[2018-08-18 20:38] LABS: Hematocrit 19.9 % (39.0-51.0); Hemoglobin 6.7 gm/dL (13.0-17.0)
[2018-08-19] MEDS: Piperacil/Tazo 2.25 GM Premix 2.25 GM/50 ML PIGGYBACK IV.SIG SCH ×4 (04:32→23:07)
[2018-08-19] MEDS: Heparin - SQ 10,000 UNITS/ML Vial SQ SCH ×3 (04:33→20:42)
[2018-08-19] MEDS: Chlorhexidine Gluconate 2% 1 Pack (2 Cloths) TOPICAL SCH (04:33)
[2018-08-19 04:58] LABS: Hematocrit 21.4 % (39.0-51.0); Hemoglobin 7.1 gm/dL (13.0-17.0); Mean Corpuscular HGB Conc 33.3 % (32.0-36.0); Mean Corpuscular Hemoglobin 30.9 pg (27.0-34.0); Mean Corpuscular Volume 92.8 fL (80.0-100.0); Mean Platelet Volume 8.4 fL (7.0-11.0); Platelet Count 143 th/mm3 (150-450); Red Blood Count 2.31 mil/mm3 (4.50-5.90); White Blood Count 11.5 th/mm3 (4.0-11.0)
[2018-08-19 05:13] LABS: Alanine Aminotransferase 30 U/L (12-78); Albumin 2.2 g/dL (3.4-5.0); Anion Gap 11 meq/L (5-15); Aspartate Aminotransferase 18 U/L (15-37); Blood Urea Nitrogen 47 mg/dL (7-18); Calcium 7.8 mg/dL (8.5-10.1); Carbon Dioxide 18.9 meq/L (21.0-32.0); Chloride 115 meq/L (98-107); Glomerular Filtration Rate 25 mL/min (>89); Glucose,Random 93 mg/dL (74-106); Magnesium 1.7 mg/dL (1.5-2.5); Sodium 145 meq/L (136-145)
[2018-08-19 05:28] LABS: Alkaline Phosphatase 76 U/L (45-117); Digoxin 2.4 ng/mL (0.8-2.0); Phosphorus 3.4 mg/dL (2.5-4.9); Total Protein 5.8 g/dL (6.4-8.2)
[2018-08-19 05:55] LABS: Dohle Bodies Present; Eosinophils 3 % (0-4); Lymphocytes 9 % (9-44); Monocytes 2 % (0-8); Myelocytes 1 % (0-0)
[2018-08-19 05:56] LABS: Acanthocytes Occ; Ovalocytes 1+; Platelet Morphology Normal (Normal)
[2018-08-19] MEDS: Pilocarpine HCl 5 MG Tablet PO SCH ×2 (08:30→20:42)
[2018-08-19] MEDS: Multivit/Folic Acid/Minerals Chewable Tablets CHEW SCH (08:30)
[2018-08-19] MEDS: levETIRAcetam 500 MG Tablet PO SCH ×2 (08:31→20:42)
[2018-08-19] MEDS: Senna/Docusate Sodium 8.6/50 MG Tablet PO SCH ×2 (08:31→20:42)
[2018-08-19] MEDS: Famotidine PF Inj 20 MG/2 ML Vial IV.PUSH SCH ×2 (08:31→20:43)
[2018-08-19] MEDS: Digoxin 250 MCG Tablet PO SCH (08:31)
[2018-08-19] MEDS: Famotidine 20 MG Tablet PO SCH (08:32)
--- NOTE | 2018-08-19 10:25 | P.PNIM ---
Subjective Interval history: Nursing denies any acute changes overnight. Patient denies any nausea vomiting. Microbiology did call and notify that the patient did have MRSA growing in his urine. Urine culture also shows multidrug-resistant Pseudomonas. Physical Exam Vital signs: Vital Signs 08/18/18 11:00 08/18/18 11:23 08/18/18 12:00 Temperature 99.6 F Pulse Rate 127 H 113 H 81 Respiratory Rate 20 20 20 Blood Pressure 106/59 L 115/58 L 108/58 L Pulse Oximetry 98 98 08/18/18 13:00 08/18/18 14:00 08/18/18 15:00 Temperature Pulse Rate 82 87 86 Respiratory Rate 28 H 26 H 25 H Blood Pressure 115/58 L 111/64 113/60 Pulse Oximetry 99 100 100 08/18/18 16:00 08/18/18 17:00 08/18/18 18:00 Temperature Pulse Rate 75 73 73 Respiratory Rate 30 H 24 25 H Blood Pressure 119/58 L 110/68 123/58 L Pulse Oximetry 98 100 100 08/18/18 19:00 08/18/18 20:00 08/18/18 21:00 Temperature 98.3 F Pulse Rate 73 68 76 Respiratory Rate 24 20 20 Blood Pressure 112/60 118/56 L 121/63 Pulse Oximetry 100 100 100 08/18/18 21:58 08/18/18 22:00 08/18/18 22:22 Temperature 98.3 F 98.4 F Pulse Rate 70 75 72 Respiratory Rate 25 H 22 20 Blood Pressure 115/62 130/63 130/63 Pulse Oximetry 98 98 08/18/18 22:24 08/18/18 23:00 08/18/18 23:22 Temperature 98.3 F Pulse Rate 72 79 80 Respiratory Rate 20 24 17 Blood Pressure 130/63 134/67 Pulse Oximetry 98 08/19/18 00:00 08/19/18 01:00 08/19/18 02:00 Temperature 98.4 F Pulse Rate 90 89 82 Respiratory Rate 22 23 26 H Blood Pressure 126/70 109/66 115/64 Pulse Oximetry 97 100 98 08/19/18 03:00 08/19/18 03:36 08/19/18 04:00 Temperature 98.2 F Pulse Rate 74 80 84 Respiratory Rate 22 18 22 Blood Pressure 131/60 133/71 Pulse Oximetry 98 98 08/19/18 05:00 08/19/18 06:00 08/19/18 07:00 Temperature 97.9 F Pulse Rate 85 81 82 Respiratory Rate 23 20 23 Blood Pressure 132/71 124/59 L Pulse Oximetry 98 96 98 08/19/18 07:18 08/19/18 08:00 08/19/18 08:18 Temperature Pulse Rate 82 87 82 Respiratory Rate 23 27 H 24 Blood Pressure 123/69 132/72 Pulse Oximetry 97 94 L 98 08/19/18 09:00 08/19/18 09:40 Temperature Pulse Rate 79 70 Respiratory Rate 20 20 Blood Pressure Pulse Oximetry 96 100 Intake & Output 08/18/18 08/19/18 08/19/18 18:59 06:59 18:59 Intake Total 1790 / 1790 750 / 750 120 / 120 Output Total 925 / 925 930 / 930 0 / 0 Balance 865 / 865 -180 / -180 120 / 120 Weight 73.5 kg Intake: IV 1050 / 1050 150 / 150 NS Inj 1,000 ML @ 100 mls/hr IV 1000 / 1000 .CONT .Q10H [facility] Rx#:[id number] Zosyn 2.25 GM Premix 2.25 gm In 50 / 50 150 / 150 50 ml @ 100 mls/hr IV.SIG Q6H [facility] Rx#:[id number] Oral 240 / 240 200 / 200 120 / 120 Other 100 / 100 0 / 0 0 / 0 Rbc As-3 Leukoreduced Unit 100 / 100 [id number] Intake (Blood Product) Amt 400 / 400 400 / 400 Rbc As-3 Leukoreduced Unit 400 / 400 [id number] Rbc As-3 Leukoreduced Unit 400 / 400 [id number] Output: Urine Amount (Stoma) 0 / 0 25 / 25 0 / 0 Pre-Hospital: Continent 0 / 0 25 / 25 0 / 0 Urostomy Right Wound Drainage 925 / 925 905 / 905 0 / 0 Left Lower Lateral Abdomen 775 / 775 700 / 700 0 / 0 Pigtail Right Lower Lateral Abdomen 150 / 150 205 / 205 0 / 0 Pigtail Other: Other Intake Source Rbc As-3 Leukoreduced Unit Saline Solution [id number] Date of Last Bowel Movement 08/17/18 08/17/18 08/17/18 Narrative: Clear lungs bilaterally, unlabored breathing Heart sounds regular rate and rhythm Abdomen soft Urostomy in place Bilateral nephrostomy tubes in place No lower extremity edema Results - Labs CBC & Chem 7: 08/19/18 04:04 08/19/18 04:04 Laboratory Results - last 24 hr 08/17/18 08/18/18 08/18/18 03:15 06:50 20:00 WBC RBC Hgb 6.7 L* Hct 19.9 L* MCV MCH MCHC RDW Plt Count MPV Prelim Diff (Auto) WBC Differential Seg Neuts % (Manual) Band Neuts % (Manual) Lymphocytes % (Manual) Monocytes % (Manual) Eosinophils % (Manual) Myelocytes % (Man) Abs Neuts (Manual) Differential Comment Dohle Bodies Platelet Estimate Platelet Morphology Ovalocytes Acanthocytes (Spur) Sodium Potassium Chloride Carbon Dioxide Anion Gap BUN Creatinine Estimated GFR POC Glucose Random Glucose Calcium Phosphorus Magnesium Total Bilirubin AST ALT Alkaline Phosphatase Total Protein Albumin Urine Color Yellow Urine Clarity Cloudy H Urine pH 7.0 Ur Specific [place] 1.009 Urine Protein 100 H Urine Glucose (UA) Negative Urine Ketones Negative Urine Occult Blood Negative Urine Nitrate Negative Urine Bilirubin Negative Urine Urobilinogen Less than 2 Ur Leukocyte Esterase Large H Urine RBC 5 H Urine WBC 68 H Ur Squamous Epith Cells <1 Amorphous Sediment Occasional H Urine Bacteria Many H Micro UA Comment Cath-culture ind Urine Culture Comments Cath-cult indicated Digoxin MTS Gel Crossmatch See Detail 08/18/18 08/19/18 08/19/18 21:15 04:04 04:04 WBC 11.5 H RBC 2.31 L Hgb 7.1 L Hct 21.4 L MCV 92.8 D MCH 30.9 MCHC 33.3 RDW 17.0 Plt Count 143 L MPV 8.4 Prelim Diff (Auto) Manual diff required WBC Differential Manual diff final Seg Neuts % (Manual) 83 H Band Neuts % (Manual) 2 Lymphocytes % (Manual) 9 Monocytes % (Manual) 2 Eosinophils % (Manual) 3 Myelocytes % (Man) 1 H Abs Neuts (Manual) 9.9 H Differential Comment . Dohle Bodies Present H Platelet Estimate Low L Platelet Morphology Normal Ovalocytes 1+ H Acanthocytes (Spur) Occ H Sodium 145 Potassium 4.0 Chloride 115 H Carbon Dioxide 18.9 L Anion Gap 11 BUN 47 H Creatinine 2.47 H Estimated GFR 25 L POC Glucose Random Glucose 93 Calcium 7.8 L Phosphorus 3.4 Magnesium 1.7 Total Bilirubin 0.8 AST 18 ALT 30 Alkaline Phosphatase 76 Total Protein 5.8 L Albumin 2.2 L Urine Color Urine Clarity Urine pH Ur Specific [place] Urine Protein Urine Glucose (UA) Urine Ketones Urine Occult Blood Urine Nitrate Urine Bilirubin Urine Urobilinogen Ur Leukocyte Esterase Urine RBC Urine WBC Ur Squamous Epith Cells Amorphous Sediment Urine Bacteria Micro UA Comment Urine Culture Comments Digoxin 2.4 H MTS Gel Crossmatch See Detail 08/19/18 10:09 WBC RBC Hgb Hct MCV MCH MCHC RDW Plt Count MPV Prelim Diff (Auto) WBC Differential Seg Neuts % (Manual) Band Neuts % (Manual) Lymphocytes % (Manual) Monocytes % (Manual) Eosinophils % (Manual) Myelocytes % (Man) Abs Neuts (Manual) Differential Comment Dohle Bodies Platelet Estimate Platelet Morphology Ovalocytes Acanthocytes (Spur) Sodium Potassium Chloride Carbon Dioxide Anion Gap BUN Creatinine Estimated GFR POC Glucose 112 H Random Glucose Calcium Phosphorus Magnesium Total Bilirubin AST ALT Alkaline Phosphatase Total Protein Albumin Urine Color Urine Clarity Urine pH Ur Specific [place] Urine Protein Urine Glucose (UA) Urine Ketones Urine Occult Blood Urine Nitrate Urine Bilirubin Urine Urobilinogen Ur Leukocyte Esterase Urine RBC Urine WBC Ur Squamous Epith Cells Amorphous Sediment Urine Bacteria Micro UA Comment Urine Culture Comments Digoxin MTS Gel Crossmatch Microbiology 08/17/18 03:15 Catheterized Urine Urine Culture - Preliminary Pseudomonas aeruginosa Multidrug Resistant Enterococcus faecium VRE 08/17/18 03:00 Blood - Peripheral Aerobic Blood Culture - Preliminary No growth in 1 day 08/17/18 03:00 Blood - Peripheral Anaerobic Blood Culture - Preliminary No growth in 1 day 08/17/18 03:15 Blood - Peripheral Aerobic Blood Culture - Preliminary No growth in 1 day 08/17/18 03:15 Blood - Peripheral Anaerobic Blood Culture - Preliminary No growth in 1 day Assessment and Plan - Plan 78yM presenting with recurrent urosepsis/ septic shock complicated by obstructive uropathy/ urostomy. Admitted to the ICU started on aggressive IV fluids. Ultimately had obstructive uropathy in the left renal collecting system and ureter, had bilateral nephrostomy tubes placed on 08/17 with improvement. Urology following. Needed 2 units of blood likely secondary to chronic disease as opposed to acute blood loss. Obstructive uropathy Partially relieved with bilateral nephrostomy tubes in place Continue IV antibiotics, noted to have multidrug-resistant Pseudomonas Consulting ID History of seizure disorder * Continue home dose of keppra * Delirium precautions (lights on/ shades up during the day, limit night time disruptions, frequent reorientation, avoid deliriogenic meds) atrial fibrillation Chronic orthostatic hypotension * Appears euvolemic today * Trop negative x 3, no longer trending * Patient does not have any anticoagulants listed on home meds, continue DVT prophylaxis * Continue home doses of midodrine/ fludrocortisone * Stable AAA seen on CT abd/pelvis measuring 3.5 cm, outpatient follow up * Continue digoxin for rate control, check dig level in AM COPD * Incentive spirometer * Scheduled/ PRN nebs F/E/N, RENAL: Acute on chronic kidney injury-- improving Hyperkalemia-- resolved Dehydration-- resolved History of parotidectomy * Cardiac diet * Continue home dose of pilocarpine to aid in salivation as patient has had a parotidectomy : Obstructive uropathy-- resolved History of RLQ urostomy with double J stent Bilateral nephrostomies * CT scan on admission showed dilation of the left renal collecting system and ureter with double J stent coursing from the collecting system into the diverting bowel loop in the RLQ which has developed since his last CT scan in June * Patient had bilateral percutaneous nephrostomies placed yesterday by IR * Urology following * Anemia requiring transfusions * Hg this morning 6.9, given 1U PRBCs. I suspect this is due to aggressive crystalloid resuscitation yesterday and not blood loss anemia as patient had no significant blood loss reported during IR procedures and has no signs of other bleeding. -SCDs, SQH -PPI
[2018-08-19] MEDS: Sod Chloride 0.9% Inj 1,000 ML IV.CONT SCH (10:33)
--- NOTE | 2018-08-19 13:48 | MB ---
cc: Tonny Ng MD DATE: 08/19/2018 REQUESTING PHYSICIAN: Dr. Elizabeth REASON: MDR Pseudomonas with UTI, had septic shock. HISTORY OF PRESENT ILLNESS: This is a 78-year-old white male who was admitted to the hospital after he presented to the emergency department on 08/17/2018. The patient developed fever. He is a resident of a retirement. He was also noted to have hypotension and tachycardia. Reportedly, blood pressure was down to 60/40. He has a history of urostomy. His temperature was 98.1 in the emergency department. The patient had elevated white cell count of 26.5. The patient was evaluated and eventually underwent placement of bilateral nephrostomy tubes. Urine culture has growth of Enterococcus species VRE and Pseudomonas aeruginosa. The Pseudomonas is extremely resistant. The patient is awake and alert. He tells me he is comfortable and he has no complaints currently. He is afebrile. He did have a low-grade fever yesterday. This consultation is requested for antibiotic management. The white blood cell count has improved and it is down to 11.5 today. Both nephrostomy tubes have good drainage and the one on the right has blood tinged urine output. PAST MEDICAL HISTORY: Atrial fibrillation, chronic kidney disease, stage IV, COPD, hypertension, history of Clostridium difficile, hyperlipidemia, kidney stones, history of intertrochanteric fracture of the left hip, history of open left femoral fracture, prostate cancer parotid mass, subdural hematoma. ALLERGIES: NO KNOWN DRUG ALLERGIES. THE PATIENT IS ALLERGIC TO CRAB. MEDICATIONS: 1. Keppra. 2. Protamine. 3. Multiple vitamin. 4. Pilocarpine. 1. Zosyn. 2. Maggi-Colace. SOCIAL HISTORY: No tobacco. The patient is a former smoker. No alcohol. No illicit drugs. FAMILY HISTORY: Noncontributory. REVIEW OF SYSTEMS: All systems have been reviewed and are negative. PHYSICAL EXAMINATION: GENERAL: Elderly, well-developed male who is in no acute distress. He is awake and he is alert and oriented. VITAL SIGNS: Temperature 98.6, BP 118/63, respirations 22, heart rate 84. HEENT: Head is atraumatic. Extraocular movements grossly intact. Pupils reactive to light. No icterus. Oropharynx: Moist mucosa. NECK: Supple without adenopathy or swelling. LUNGS: Clear, decreased breath sounds. HEART: Regular S1, S2. No audible murmurs. ABDOMEN: Bowel sounds present. Soft, no tenderness appreciated. RECTAL: Not performed. EXTREMITIES: No clubbing, cyanosis or edema. SKIN: No rash. NEUROLOGIC: No gross focal findings. PSYCHIATRIC: The patient is calm and cooperative. LABORATORY DATA: WBC 11.5, platelet count 143, hemoglobin 7.1, 83% neutrophils, creatinine 2.47, BUN 47, estimated GFR 25. LFTs normal. Stool Clostridium difficile is negative. IMPRESSION: 1. Urinary tract infection due to Enterococcus (vancomycin-resistant Enterococcus) and Pseudomonas. 2. Status post bilateral nephrostomy. 3. Chronic kidney disease. 4. Sepsis/septic shock on admission. 5. History of recurrent Clostridium difficile infection. RECOMMENDATIONS: 1. Continue Zosyn. 2. Add Zyvox for VRE. Monitor the clinical status. 3. Send urine from both nephrostomy tubes for evaluation. The Pseudomonas in the urine is extremely resistant to antibiotics. However, the patient appears clinically stable. Therefore, I would await repeat urine cultures to determine if additional antibiotics are necessary at this time. Thank you for this consultation. Tonny Ng MD FFD/ct , 12:46 PM , 01:01 PM
[2018-08-20] MEDS: Heparin - SQ 10,000 UNITS/ML Vial SQ SCH ×2 (04:33→13:29)
[2018-08-20] MEDS: Chlorhexidine Gluconate 2% 1 Pack (2 Cloths) TOPICAL SCH (04:34)
[2018-08-20 04:45] LABS: Baso % (Auto) 0.3 % (0.0-2.0); Eos # (Auto) 0.2 th/mm3 (0.0-0.4); Eos % (Auto) 2.9 % (0.0-4.0); Lymph # (Auto) 0.8 th/mm3 (1.0-4.8); Lymph % (Auto) 10.5 % (9.0-44.0); Mean Corpuscular HGB Conc 34.8 % (32.0-36.0); Mean Corpuscular Hemoglobin 32.2 pg (27.0-34.0); Mean Corpuscular Volume 92.5 fL (80.0-100.0); Mean Platelet Volume 8.4 fL (7.0-11.0); Mono # (Auto) 0.8 th/mm3 (0.0-0.9); Mono % (Auto) 9.7 % (0.0-8.0); Neut % (Auto) 76.6 % (16.0-70.0); Platelet Count 152 th/mm3 (150-450); Red Blood Count 2.18 mil/mm3 (4.50-5.90); Red Cell Distribution Width 16.8 % (11.6-17.2); White Blood Count 7.9 th/mm3 (4.0-11.0)
[2018-08-20] MEDS: Piperacil/Tazo 2.25 GM Premix 2.25 GM/50 ML PIGGYBACK IV.SIG SCH ×2 (04:45→10:43)
[2018-08-20 04:50] LABS: Hematocrit 20.1 % (39.0-51.0)
[2018-08-20 05:02] LABS: Albumin 2.2 g/dL (3.4-5.0); Anion Gap 11 meq/L (5-15); Aspartate Aminotransferase 24 U/L (15-37); Blood Urea Nitrogen 45 mg/dL (7-18); Calcium 7.8 mg/dL (8.5-10.1); Carbon Dioxide 19.5 meq/L (21.0-32.0); Chloride 111 meq/L (98-107); Glomerular Filtration Rate 23 mL/min (>89); Glucose,Random 101 mg/dL (74-106); Magnesium 1.6 mg/dL (1.5-2.5); Potassium 3.4 meq/L (3.5-5.1); Sodium 141 meq/L (136-145)
[2018-08-20 05:03] LABS: Alanine Aminotransferase 30 U/L (12-78); Phosphorus 2.8 mg/dL (2.5-4.9)
[2018-08-20 05:05] LABS: Alkaline Phosphatase 73 U/L (45-117); Total Protein 6.1 g/dL (6.4-8.2)
[2018-08-20] MEDS ORDERED: Sodium Chlor 0.9% Inj 250 ML IV.SIG SCH (09:00)
[2018-08-20] MEDS: Multivit/Folic Acid/Minerals Chewable Tablets CHEW SCH (09:40)
[2018-08-20] MEDS: Digoxin 250 MCG Tablet PO SCH (09:40)
[2018-08-20] MEDS: levETIRAcetam 500 MG Tablet PO SCH ×2 (09:41→20:26)
[2018-08-20] MEDS: Famotidine PF Inj 20 MG/2 ML Vial IV.PUSH SCH ×2 (09:42→20:27)
[2018-08-20] MEDS: Senna/Docusate Sodium 8.6/50 MG Tablet PO SCH ×2 (09:43→20:26)
[2018-08-20] MEDS: Pilocarpine HCl 5 MG Tablet PO SCH ×2 (09:43→20:26)
[2018-08-20] MEDS: Sod Chloride 0.9% Inj 1,000 ML IV.CONT SCH (10:25)
--- NOTE | 2018-08-20 11:12 | P.PNIM ---
Subjective Interval history: Nursing reports the patient's hemoglobin being reported right at 7.0. No reports of any melena or bright red blood per rectum. Denies any nausea vomiting. Both percutaneous nephrostomy tubes have been draining, and his urostomy has had 400 mL's output last night, Is eating well. Physical Exam Vital signs: Vital Signs 08/19/18 11:18 08/19/18 12:00 08/19/18 12:18 Temperature 98.6 F Pulse Rate 83 84 84 Respiratory Rate 24 22 20 Blood Pressure 118/63 129/58 L Pulse Oximetry 99 97 97 08/19/18 12:54 08/19/18 13:00 08/19/18 13:18 Temperature Pulse Rate 84 74 86 Respiratory Rate 22 24 15 Blood Pressure 124/61 Pulse Oximetry 100 99 08/19/18 14:00 08/19/18 14:18 08/19/18 15:00 Temperature Pulse Rate 86 89 82 Respiratory Rate 24 26 H 25 H Blood Pressure 115/62 Pulse Oximetry 96 98 100 08/19/18 15:18 08/19/18 16:00 08/19/18 16:18 Temperature 98.3 F Pulse Rate 79 76 72 Respiratory Rate 24 26 H 24 Blood Pressure 144/77 H 117/76 Pulse Oximetry 100 99 100 08/19/18 17:00 08/19/18 17:18 08/19/18 18:00 Temperature Pulse Rate 75 73 74 Respiratory Rate 28 H 25 H 24 Blood Pressure 131/83 Pulse Oximetry 98 99 99 08/19/18 19:00 08/19/18 19:52 08/19/18 20:00 Temperature Pulse Rate 73 67 68 Respiratory Rate 25 H 16 23 Blood Pressure 132/75 146/79 H Pulse Oximetry 95 100 100 08/19/18 21:00 08/19/18 22:00 08/19/18 23:00 Temperature Pulse Rate 81 81 77 Respiratory Rate 22 20 24 Blood Pressure 150/72 H 164/74 H 151/70 H Pulse Oximetry 99 98 98 08/19/18 23:49 08/20/18 00:00 08/20/18 01:00 Temperature 97.9 F Pulse Rate 83 78 87 Respiratory Rate 16 20 20 Blood Pressure 133/80 143/77 H Pulse Oximetry 100 99 08/20/18 02:00 08/20/18 03:00 08/20/18 04:00 Temperature 98.3 F 98.3 F Pulse Rate 83 76 74 Respiratory Rate 22 25 H 25 H Blood Pressure 143/77 H 124/75 143/78 H Pulse Oximetry 99 98 99 08/20/18 04:56 08/20/18 05:00 08/20/18 06:00 Temperature Pulse Rate 84 71 91 H Respiratory Rate 16 20 20 Blood Pressure 151/70 H 147/68 H Pulse Oximetry 100 100 08/20/18 06:18 08/20/18 07:00 08/20/18 07:18 Temperature 98.0 F Pulse Rate 94 H 87 81 Respiratory Rate 24 23 23 Blood Pressure 133/71 147/82 H Pulse Oximetry 99 99 99 08/20/18 08:00 08/20/18 08:18 08/20/18 09:00 Temperature 98.0 F Pulse Rate 84 82 76 Respiratory Rate 25 H 25 H 25 H Blood Pressure 112/81 Pulse Oximetry 98 88 L 99 Intake & Output 08/19/18 08/20/18 08/20/18 18:59 06:59 18:59 Intake Total 880 / 880 600 / 600 Output Total 350 / 350 925 / 925 Balance 530 / 530 -325 / -325 Weight 77.2 kg Intake: IV 400 / 400 400 / 400 Zyvox 600 mg Premix 300 ML @ 300 / 300 300 / 300 300 mls/hr IV.SIG Q12H [facility] Rx#: [id number] Zosyn 2.25 GM Premix 2.25 gm In 100 / 100 100 / 100 50 ml @ 100 mls/hr IV.SIG Q6H [facility] Rx#:[id number] Oral 480 / 480 200 / 200 Other 0 / 0 Output: Urine Amount (Stoma) 400 / 400 Pre-Hospital: Continent 400 / 400 Urostomy Right Wound Drainage 330 / 330 525 / 525 Left Lower Lateral Abdomen 200 / 200 300 / 300 Pigtail Right Lower Lateral Abdomen 130 / 130 225 / 225 Pigtail Other: Date of Last Bowel Movement 08/17/18 08/17/18 08/17/18 Narrative: Clear lungs bilaterally, labored breathing heart sounds regular rate and rhythm Abdomen soft No lower extremity edema Grossly intact range of motion of lower extremities Results - Labs CBC & Chem 7: 08/20/18 03:59 08/20/18 03:59 Laboratory Results - last 24 hr 08/20/18 08/20/18 08/20/18 03:59 03:59 08:46 WBC 7.9 RBC 2.18 L Hgb 7.0 L Hct 20.1 L* MCV 92.5 MCH 32.2 MCHC 34.8 RDW 16.8 Plt Count 152 MPV 8.4 Prelim Diff (Auto) Milk Drier Neut % (Auto) 76.6 H Lymph % (Auto) 10.5 Bacon % (Auto) 9.7 H Eos % (Auto) 2.9 Baso % (Auto) 0.3 Neut # (Auto) 6.0 Lymph # (Auto) 0.8 L [place] # (Auto) 0.8 Eos # (Auto) 0.2 Baso # (Auto) 0.0 WBC Differential . Differential Comment Auto diff final Sodium 141 Potassium 3.4 L Chloride 111 H Carbon Dioxide 19.5 L Anion Gap 11 BUN 45 H Creatinine 2.65 H Estimated GFR 23 L Random Glucose 101 Calcium 7.8 L Phosphorus 2.8 Magnesium 1.6 Total Bilirubin 0.5 AST 24 ALT 30 Alkaline Phosphatase 73 Total Protein 6.1 L Albumin 2.2 L MTS Gel Crossmatch See Detail Bld Prod Order Comment Microbiology 08/17/18 03:00 Blood - Peripheral Aerobic Blood Culture - Preliminary No growth in 3 days 08/17/18 03:00 Blood - Peripheral Anaerobic Blood Culture - Preliminary No growth in 3 days 08/17/18 03:15 Blood - Peripheral Aerobic Blood Culture - Preliminary No growth in 3 days 08/17/18 03:15 Blood - Peripheral Anaerobic Blood Culture - Preliminary No growth in 3 days 08/17/18 03:15 Catheterized Urine Urine Culture - Final Pseudomonas aeruginosa Multidrug Resistant Enterococcus faecium VRE Assessment and Plan - Plan 78yM presenting with recurrent urosepsis/ septic shock complicated by obstructive uropathy/ urostomy resulting in acute on chronic renal failure with hyperkalemia. CT upon admission showed dilation of left renal collecting system and ureter with double-J stent question him collecting system into diverting bowel loop in the right lower quadrant which has developed since his last CT scan in June. Admitted to the ICU started on aggressive IV fluids and pressors. Ultimately had obstructive uropathy in the left renal collecting system and ureter, had bilateral nephrostomy tubes placed on 08/17 with improvement. Urology following. H Acute obstructive uropathy History of RLQ urostomy with double J stent acute on chronic kidney disease relieved with bilateral nephrostomy tubes in placed on 08/18 Has been switched over to Teflaro and Zyvox to cover for multidrug resistant Pseudomonas and VRE for now per ID, repeat cultures pending, noted to have multidrug-resistant Pseudomonas ID following, will recheck urine culture per ID -continue gentle IVFs * Urology recommending internalization of PCNs once pt is more stable from infx standpoint History of seizure disorder * Continue home keppra * Delirium precautions Anemia requiring transfusions * Holding steady but borderline, but will transfuse 2 units given that he is borderline with an overall frail status, will recheck in a.m. Will check stool Hemoccult for blood atrial fibrillation Chronic orthostatic hypotension continue DVT prophylaxis * Continue home doses of midodrine/ fludrocortisone * Stable AAA seen on CT abd/pelvis measuring 3.5 cm, outpatient follow up * Will hold digoxin for now given elevated level and impaired renal function, recheck in 2 days COPD * Incentive spirometer * Scheduled/ PRN nebs Acute on chronic kidney injury- improving History of parotidectomy * Cardiac diet * Continue home dose of pilocarpine to aid in salivation as patient has had a parotidectomy -SCDs, SQH -PPI Addendum: Around 6:17 PM, discussed with interventional radiology Dr. Cool, patient's right nephrostomy tube has been pulled back to some point, no longer in the renal pelvis, difficult to tell if it is within the renal calyx versus outside the kidney. Concerned that he is hemorrhaging into his flank which could explain his dropping H&H. Transfusions are apparently completed at this time, plan is to trend serial H&H's and should this continue to drop contact IR again. Tight blood pressure control with to keep under 140/90
--- NOTE | 2018-08-20 15:33 | P.PNID ---
Subjective Remarks: Patient is complaining of pain in his right lower back. Seems to be in the location of the nephrostomy tube. Also notes that he is having nausea. No fever. White blood cell count decreased to normal. Urine from nephrostomy tube has gram-negative dayanara. This is a 78-year-old white male who was admitted to the hospital after he presented to the emergency department on 08/17/2018. The patient developed fever. He is a resident of a assisted. He was also noted to have hypotension and tachycardia. Reportedly, blood pressure was down to 60/40. He has a history of urostomy. His temperature was 98.1 in the emergency department. The patient had elevated white cell count of 26.5. The patient was evaluated and eventually underwent placement of bilateral nephrostomy tubes. Urine culture has growth of Enterococcus species VRE and Pseudomonas aeruginosa. The Pseudomonas is extremely resistant. Past Medical History: PAST MEDICAL HISTORY: Atrial fibrillation, chronic kidney disease, stage IV, COPD, hypertension, history of Clostridium difficile, hyperlipidemia, kidney stones, history of intertrochanteric fracture of the left hip, history of open left femoral fracture, prostate cancer parotid mass, subdural hematoma. Allergies/Adverse Reactions: Allergies crab Allergy (Intermediate, Verified 08/17/18 01:55) Rash Blue Shell crab causes severe rash all over face and neck. Needs PCN to help clear it up. Patient CAN eat Shrimp and clams, scallops, oysters without problems. Objective Vital Signs 08/19/18 16:00 08/19/18 16:18 08/19/18 17:00 Temperature 98.3 F Pulse Rate 76 72 75 Respiratory Rate 26 H 24 28 H Blood Pressure 117/76 Pulse Oximetry 99 100 98 08/19/18 17:18 08/19/18 18:00 08/19/18 19:00 Temperature Pulse Rate 73 74 73 Respiratory Rate 25 H 24 25 H Blood Pressure 131/83 132/75 Pulse Oximetry 99 99 95 08/19/18 19:52 08/19/18 20:00 08/19/18 21:00 Temperature Pulse Rate 67 68 81 Respiratory Rate 16 23 22 Blood Pressure 146/79 H 150/72 H Pulse Oximetry 100 100 99 08/19/18 22:00 08/19/18 23:00 08/19/18 23:49 Temperature Pulse Rate 81 77 83 Respiratory Rate 20 24 16 Blood Pressure 164/74 H 151/70 H Pulse Oximetry 98 98 08/20/18 00:00 08/20/18 01:00 08/20/18 02:00 Temperature 97.9 F Pulse Rate 78 87 83 Respiratory Rate 20 20 22 Blood Pressure 133/80 143/77 H 143/77 H Pulse Oximetry 100 99 99 08/20/18 03:00 08/20/18 04:00 08/20/18 04:56 Temperature 98.3 F 98.3 F Pulse Rate 76 74 84 Respiratory Rate 25 H 25 H 16 Blood Pressure 124/75 143/78 H Pulse Oximetry 98 99 08/20/18 05:00 08/20/18 06:00 08/20/18 06:18 Temperature Pulse Rate 71 91 H 94 H Respiratory Rate 20 20 24 Blood Pressure 151/70 H 147/68 H 133/71 Pulse Oximetry 100 100 99 08/20/18 07:00 08/20/18 07:18 08/20/18 08:00 Temperature 98.0 F 98.0 F Pulse Rate 87 81 84 Respiratory Rate 23 23 25 H Blood Pressure 147/82 H Pulse Oximetry 99 99 98 08/20/18 08:18 08/20/18 09:00 08/20/18 09:18 Temperature Pulse Rate 82 76 82 Respiratory Rate 25 H 25 H 24 Blood Pressure 112/81 141/67 H Pulse Oximetry 88 L 99 99 08/20/18 10:00 08/20/18 10:18 08/20/18 11:00 Temperature Pulse Rate 78 82 78 Respiratory Rate 24 28 H 27 H Blood Pressure 112/68 Pulse Oximetry 99 96 92 L 08/20/18 11:18 08/20/18 12:00 08/20/18 12:18 Temperature Pulse Rate 79 69 74 Respiratory Rate 26 H 27 H 27 H Blood Pressure 123/71 123/71 146/70 H Pulse Oximetry 97 88 L 98 08/20/18 12:32 08/20/18 12:43 08/20/18 12:44 Temperature 98.1 F 98.1 F 98.1 F Pulse Rate 66 75 67 Respiratory Rate 22 25 H 25 H Blood Pressure 146/70 H 145/73 H 145/73 H Pulse Oximetry 99 99 100 08/20/18 13:00 08/20/18 13:08 08/20/18 13:26 Temperature 98.2 F 97.9 F Pulse Rate 72 77 67 Respiratory Rate 26 H 26 H 23 Blood Pressure 156/88 H 140/89 Pulse Oximetry 99 98 97 08/20/18 14:15 Temperature 97.9 F Pulse Rate 78 Respiratory Rate 24 Blood Pressure 140/89 Pulse Oximetry Intake & Output 08/19/18 08/20/18 08/20/18 18:59 06:59 18:59 Intake Total 880 / 880 600 / 600 1450 / 1450 Output Total 350 / 350 925 / 925 Balance 530 / 530 -325 / -325 1450 / 1450 Weight 77.2 kg Intake: IV 400 / 400 400 / 400 1050 / 1050 NS Inj 1,000 ML @ 42 mls/hr IV. 1000 / 1000 CONT .[id number] TRAVIS Rx#:[id number] Zyvox 600 mg Premix 300 ML @ 300 / 300 300 / 300 300 mls/hr IV.SIG Q12H TRAVIS Rx#: [id number] Zosyn 2.25 GM Premix 2.25 gm In 100 / 100 100 / 100 50 / 50 50 ml @ 100 mls/hr IV.SIG Q6H TRAVIS Rx#:[id number] Oral 480 / 480 200 / 200 Other 0 / 0 Intake (Blood Product) Amt 400 / 400 Rbc As-3 Leukoreduced Unit 0 / 0 [id number] Rbc As-3 Leukoreduced Unit 400 / 400 [id number] Output: Urine Amount (Stoma) 400 / 400 Pre-Hospital: Continent 400 / 400 Urostomy Right Wound Drainage 330 / 330 525 / 525 Left Lower Lateral Abdomen 200 / 200 300 / 300 Pigtail Right Lower Lateral Abdomen 130 / 130 225 / 225 Pigtail Other: Date of Last Bowel Movement 08/17/18 08/17/18 08/17/18 08/19/18 14:10 Random Urine Urine Culture - Preliminary gram negative rods Yeast species 08/19/18 14:10 Random Urine Urine Culture - Preliminary gram negative rods 08/20/18 11:10 Stool Stool Occult Blood (KIRILL) - Final Hemoccult negative 08/17/18 03:00 Blood - Peripheral Aerobic Blood Culture - Preliminary No growth in 3 days 08/17/18 03:00 Blood - Peripheral Anaerobic Blood Culture - Preliminary No growth in 3 days 08/17/18 03:15 Blood - Peripheral Aerobic Blood Culture - Preliminary No growth in 3 days 08/17/18 03:15 Blood - Peripheral Anaerobic Blood Culture - Preliminary No growth in 3 days 08/17/18 03:15 Catheterized Urine Urine Culture - Final Pseudomonas aeruginosa Multidrug Resistant Enterococcus faecium VRE Lab - Hematology Results 08/18/18 08/19/18 08/20/18 20:00 04:04 03:59 WBC 11.5 H 7.9 RBC 2.31 L 2.18 L Hgb 6.7 L* 7.1 L 7.0 L Hct 19.9 L* 21.4 L 20.1 L* MCV 92.8 D 92.5 MCH 30.9 32.2 MCHC 33.3 34.8 RDW 17.0 16.8 Plt Count 143 L 152 MPV 8.4 8.4 Prelim Diff (Auto) Manual diff required [employer] Neut % (Auto) 76.6 H Lymph % (Auto) 10.5 [place] % (Auto) 9.7 H Eos % (Auto) 2.9 Baso % (Auto) 0.3 Neut # (Auto) 6.0 Lymph # (Auto) 0.8 L [place] # (Auto) 0.8 Eos # (Auto) 0.2 Baso # (Auto) 0.0 WBC Differential Manual diff final . Seg Neuts % (Manual) 83 H Band Neuts % (Manual) 2 Lymphocytes % (Manual) 9 Monocytes % (Manual) 2 Eosinophils % (Manual) 3 Myelocytes % (Man) 1 H Abs Neuts (Manual) 9.9 H Differential Comment . Auto diff final Dohle Bodies Present H Platelet Estimate Low L Platelet Morphology Normal Ovalocytes 1+ H Acanthocytes (Spur) Occ H Lab - Chemistry Results 08/19/18 08/19/18 08/20/18 04:04 10:09 03:59 Sodium 145 141 Potassium 4.0 3.4 L Chloride 115 H 111 H Carbon Dioxide 18.9 L 19.5 L Anion Gap 11 11 BUN 47 H 45 H Creatinine 2.47 H 2.65 H Estimated GFR 25 L 23 L POC Glucose 112 H Random Glucose 93 101 Calcium 7.8 L 7.8 L Phosphorus 3.4 2.8 Magnesium 1.7 1.6 Total Bilirubin 0.8 0.5 AST 18 24 ALT 30 30 Alkaline Phosphatase 76 73 Total Protein 5.8 L 6.1 L Albumin 2.2 L 2.2 L 08/20/18 12:02 Sodium Potassium Chloride Carbon Dioxide Anion Gap BUN Creatinine Estimated GFR POC Glucose 146 H Random Glucose Calcium Phosphorus Magnesium Total Bilirubin AST ALT Alkaline Phosphatase Total Protein Albumin Imaging: ITS Impressions Nephrostomy 08/17/18 00:00 CONCLUSION: 1. Uncomplicated nephrostomy tube placement as above. Chest X-Ray 08/17/18 02:07 CONCLUSION: The lungs are clear. Abdomen/Pelvis CT 08/17/18 02:08 CONCLUSION: 1. Interval development of dilation of the left renal collecting system and ureter with double J stent coursing from the collecting system into the diverting bowel loop right lower quadrant. 2. Stable bilateral renal calcifications including right renal pelvis. 3. Stable gallstones. 4. Stable mid abdominal aortic aneurysm measuring 3.5 cm. Physical Exam: PHYSICAL EXAMINATION: GENERAL: Awake and alert. HEENT: Head is atraumatic. Extraocular movements grossly intact. Pupils reactive to light. No icterus. Oropharynx: Moist mucosa. NECK: Supple without adenopathy or swelling. LUNGS: Breath sounds. HEART: Regular S1, S2. No audible murmurs. ABDOMEN: Bowel sounds present. Soft, no tenderness. Tenderness at the right lower back with the nephrostomy tube is located. EXTREMITIES: No clubbing, cyanosis or edema. SKIN: No rash. NEUROLOGIC: No gross focal findings. PSYCHIATRIC: Calm and cooperative. Assessment and Plan - Plan IMPRESSION: 1. Urinary tract infection due to Enterococcus (vancomycin-resistant Enterococcus) and Pseudomonas. Repeat urine culture has gram-negative dayanara. 2. Status post bilateral nephrostomy. 3. Chronic kidney disease. 4. Sepsis/septic shock on admission. 5. History of recurrent Clostridium difficile infection. RECOMMENDATIONS: 1. Change Zosyn to Ceftolozane/tazobactam. For the resistant Pseudomonas while awaiting culture 2. Continue Zyvox for VRE. 3. Monitor the urine cultures. 4. Monitor the clinical status.
[2018-08-20] MEDS ORDERED: Acetaminophen 325 MG Tablet PO ONE (15:45)
[2018-08-20] MEDS: TAZOBACTAM IV.SIG SCH (16:41)
[2018-08-20] MEDS: CEFTOLOZANE IV.SIG SCH (16:41)
[2018-08-20] MEDS: SODIUM CHLOR 0.9% IV.SIG SCH (16:41)
--- NOTE | 2018-08-20 18:27 | CT ---
EXAM DATE: 08/20/2018 6:02 PM EST AGE/SEX: 78 years / Male INDICATIONS: Pain at right nephrostomy site. CLINICAL DATA: This is the patient's initial encounter. Patient reports that signs and symptoms have been present for 1 day and indicates a pain score of 8/10. MEDICAL/SURGICAL HISTORY: Carcinoma, prostatic. Chronic obstructive pulmonary disease. Hypert ension. . nephrostomy, urostomy, parotidectomy RADIATION DOSE: 9.03 CTDI (mGy) COMPARISON: . TECHNIQUE: Multiple contiguous axial images were obtained through the abdomen. Images were obtained using multiple row detector helical technique. Using automated exposure control and adjustment of the mA and/or kV according to patient size, radiation dose was kept as low as reasonably achievable to o btain optimal diagnostic quality images. DICOM format image data is available electronically for rev iew and comparison. FINDINGS: LOWER LUNGS: Small bilateral pleural effusions, right greater than left. LIVER: Diffusely homogeneous density without intrahepatic ductal dilatation or volume loss. Several large calcified gallstones in contracted gallbladder. SPLEEN: Homogeneous density without enlargement. PANCREAS: Grossly unremarkable. KIDNEYS: There is a left ureteral stent in position. There is a left-sided nephrostomy catheter in g ood position. Redemonstration of multiple left-sided renal calculi. The right-sided nephrostomy carrie ter has been retracted from the renal pelvis and may potentially be in a calyx. there is a moderate t o large sized perinephric hematoma which extends inferiorly to the region of the pelvis. There is a 1 0 mm proximal ureteral calculus. Patient has an ileal conduit. ADRENAL GLANDS: Unremarkable. AORTA: Stable 3.4 cm focal infrarenal fusiform aortic aneurysm. BOWEL/MESENTERY: The bowel loops are grossly unremarkable. The cecum and sigmoid colon have a bud l configuration. No free air. ABDOMINAL WALL: Intact. BLADDER: Surgically removed. Ileal conduit in place. REPRODUCTIVE: Grossly unremarkable. BONY STRUCTURES: Degenerative changes of the lower lumbar spine. CONCLUSION: 1. Interval placement of bilateral percutaneous cystostomy catheters. The right nephrostomy catheter has been retracted from the renal pelvis and may potentially be in a calyx but remains in the kidney . There is an associated moderate to large sized perinephric hematoma extending inferiorly to the reg ion of the pelvis. 2. Redemonstration of bilateral renal calculi unchanged from recent prior CT exam. 3. Additional stable ancillary findings, as above. Findings were personally discussed with hospitalist. Patient is currently hemodynamically stable. Wi ll monitor with serial H&H and consider further intervention as clinically necessary. Electronically signed by: Gerald Castrejon MD Board Certified Radiologist 08/20/2018 6:26 PM JAYDON T
[2018-08-20 21:10] LABS: Hematocrit 23.5 % (39.0-51.0); Hemoglobin 8.2 gm/dL (13.0-17.0)
[2018-08-21] MEDS: CEFTOLOZANE IV.SIG SCH ×3 (00:28→17:34)
[2018-08-21] MEDS: TAZOBACTAM IV.SIG SCH ×3 (00:28→17:34)
[2018-08-21] MEDS: SODIUM CHLOR 0.9% IV.SIG SCH ×3 (00:28→17:34)
[2018-08-21 04:25] LABS: Hematocrit 18.7 % (39.0-51.0); Hemoglobin 6.5 gm/dL (13.0-17.0)
[2018-08-21 04:28] LABS: Calcium 7.8 mg/dL (8.5-10.1); Carbon Dioxide 20.9 meq/L (21.0-32.0); Potassium 3.7 meq/L (3.5-5.1)
[2018-08-21] MEDS: levETIRAcetam 500 MG Tablet PO SCH ×2 (08:09→20:11)
[2018-08-21] MEDS: Pilocarpine HCl 5 MG Tablet PO SCH ×2 (08:09→20:11)
[2018-08-21] MEDS: Senna/Docusate Sodium 8.6/50 MG Tablet PO SCH ×2 (08:09→20:11)
[2018-08-21] MEDS: Multivit/Folic Acid/Minerals Chewable Tablets CHEW SCH (08:09)
[2018-08-21] MEDS: Famotidine PF Inj 20 MG/2 ML Vial IV.PUSH SCH ×2 (08:09→20:11)
--- NOTE | 2018-08-21 09:59 | P.PNIM ---
Subjective Interval history: Nursing denies any acute changes overnight except for hemoglobin that was 6.7 this morning, patient had an additional 1 unit of blood. Over the last 30 hours the patient has received 3 units of PRBCs. Patient himself says his flank pain is gone. Physical Exam Vital signs: Vital Signs 08/20/18 10:00 08/20/18 10:18 08/20/18 11:00 Temperature Pulse Rate 78 82 78 Respiratory Rate 24 28 H 27 H Blood Pressure 112/68 Pulse Oximetry 99 96 92 L 08/20/18 11:18 08/20/18 12:00 08/20/18 12:18 Temperature Pulse Rate 79 69 74 Respiratory Rate 26 H 27 H 27 H Blood Pressure 123/71 123/71 146/70 H Pulse Oximetry 97 88 L 98 08/20/18 12:32 08/20/18 12:43 08/20/18 12:44 Temperature 98.1 F 98.1 F 98.1 F Pulse Rate 66 75 67 Respiratory Rate 22 25 H 25 H Blood Pressure 146/70 H 145/73 H 145/73 H Pulse Oximetry 99 99 100 08/20/18 13:00 08/20/18 13:08 08/20/18 13:18 Temperature 98.2 F Pulse Rate 72 77 74 Respiratory Rate 26 H 26 H 30 H Blood Pressure 156/88 H 140/89 Pulse Oximetry 99 98 93 L 08/20/18 13:26 08/20/18 14:00 08/20/18 14:15 Temperature 97.9 F 97.9 F Pulse Rate 67 71 78 Respiratory Rate 23 29 H 24 Blood Pressure 140/89 140/89 Pulse Oximetry 97 98 08/20/18 14:18 08/20/18 15:00 08/20/18 15:18 Temperature Pulse Rate 88 94 H 83 Respiratory Rate 33 H 35 H 30 H Blood Pressure 152/91 H 171/84 H Pulse Oximetry 86 L 89 L 94 L 08/20/18 16:00 08/20/18 16:14 08/20/18 16:15 Temperature Pulse Rate 91 H 97 H 86 Respiratory Rate 41 H 40 H 39 H Blood Pressure 188/120 H 192/121 H Pulse Oximetry 91 L 96 95 08/20/18 16:18 08/20/18 16:30 08/20/18 16:33 Temperature Pulse Rate 97 H 92 H 90 Respiratory Rate 37 H 38 H 40 H Blood Pressure 185/89 H 184/104 H 191/98 H Pulse Oximetry 82 L 96 96 08/20/18 17:00 08/20/18 17:03 08/20/18 17:13 Temperature Pulse Rate Respiratory Rate Blood Pressure 179/104 H 173/107 H Pulse Oximetry 99 98 88 L 08/20/18 17:26 08/20/18 17:36 08/20/18 18:00 Temperature Pulse Rate 107 H 98 H Respiratory Rate 40 H Blood Pressure 169/106 H 140/81 Pulse Oximetry 94 L 97 97 08/20/18 18:06 08/20/18 18:36 08/20/18 19:00 Temperature Pulse Rate 92 H 93 H 86 Respiratory Rate 37 H 33 H 29 H Blood Pressure 123/75 104/58 L Pulse Oximetry 94 L 95 08/20/18 19:06 08/20/18 19:36 08/20/18 20:00 Temperature 97.5 F L Pulse Rate 88 91 H 88 Respiratory Rate 35 H 34 H 33 H Blood Pressure 128/71 137/71 Pulse Oximetry 98 08/20/18 20:06 08/20/18 20:36 08/20/18 20:44 Temperature Pulse Rate 90 87 98 H Respiratory Rate 34 H 35 H 22 Blood Pressure 132/74 145/89 H Pulse Oximetry 99 08/20/18 21:00 08/20/18 21:06 08/20/18 21:36 Temperature Pulse Rate 96 H 91 H 94 H Respiratory Rate 35 H 43 H 34 H Blood Pressure 111/78 138/76 Pulse Oximetry 95 08/20/18 22:00 08/20/18 22:06 08/20/18 22:36 Temperature Pulse Rate 94 H 98 H 93 H Respiratory Rate 33 H 32 H 31 H Blood Pressure 128/75 148/92 H Pulse Oximetry 99 98 99 08/20/18 23:00 08/20/18 23:06 08/20/18 23:36 Temperature Pulse Rate 89 89 87 Respiratory Rate 30 H 29 H 28 H Blood Pressure 156/76 H 140/63 Pulse Oximetry 98 99 99 08/21/18 00:00 08/21/18 00:06 08/21/18 00:31 Temperature 97.6 F Pulse Rate 91 H 88 86 Respiratory Rate 37 H 15 22 Blood Pressure 120/71 Pulse Oximetry 90 L 97 08/21/18 00:36 08/21/18 01:00 08/21/18 01:06 Temperature Pulse Rate 87 91 H 92 H Respiratory Rate 29 H 29 H 33 H Blood Pressure 131/80 122/73 Pulse Oximetry 100 99 98 08/21/18 01:36 08/21/18 02:00 08/21/18 02:06 Temperature Pulse Rate 96 H 92 H 97 H Respiratory Rate 31 H 29 H 29 H Blood Pressure 114/75 137/67 Pulse Oximetry 99 98 99 08/21/18 02:36 08/21/18 03:00 08/21/18 03:06 Temperature Pulse Rate 93 H 91 H 94 H Respiratory Rate 29 H 30 H 28 H Blood Pressure 120/69 126/69 Pulse Oximetry 99 97 97 08/21/18 03:36 08/21/18 04:00 08/21/18 04:06 Temperature 98.1 F Pulse Rate 91 H 86 89 Respiratory Rate 31 H 24 29 H Blood Pressure 112/55 L 112/60 Pulse Oximetry 98 99 97 08/21/18 04:36 08/21/18 05:00 08/21/18 05:06 Temperature Pulse Rate 88 86 85 Respiratory Rate 29 H 21 14 Blood Pressure 106/65 111/58 L Pulse Oximetry 97 97 100 08/21/18 05:36 08/21/18 06:00 08/21/18 06:06 Temperature Pulse Rate 85 86 84 Respiratory Rate 18 12 29 H Blood Pressure 107/57 L 111/61 Pulse Oximetry 98 98 100 08/21/18 06:41 08/21/18 07:00 08/21/18 07:06 Temperature 97.9 F Pulse Rate 80 86 81 Respiratory Rate 28 H 26 H 29 H Blood Pressure 102/54 L 112/60 Pulse Oximetry 95 99 08/21/18 07:36 08/21/18 08:00 08/21/18 08:06 Temperature 98.1 F Pulse Rate 85 83 85 Respiratory Rate 28 H 38 H 32 H Blood Pressure 126/60 Pulse Oximetry 97 97 99 08/21/18 08:36 08/21/18 08:52 08/21/18 09:00 Temperature Pulse Rate 75 78 74 Respiratory Rate 33 H 24 28 H Blood Pressure 113/62 Pulse Oximetry 96 96 95 08/21/18 09:06 Temperature Pulse Rate 88 Respiratory Rate 44 H Blood Pressure 105/59 L Pulse Oximetry 98 Intake & Output 08/20/18 08/21/18 08/21/18 18:59 06:59 18:59 Intake Total 2580 / 2580 880 / 880 400 / 400 Output Total 1150 / 1150 385 / 385 Balance 1430 / 1430 495 / 495 400 / 400 Weight 73.2 kg Intake: IV 1700 / 1700 400 / 400 NS Inj 1,000 ML @ 42 mls/hr IV. 1000 / 1000 CONT .[id number] TRAVIS Rx#:[id number] Zerbaxa Inj 375 MG In NS Inj 100 / 100 100 / 100 100 ML @ 100 mls/hr IV.SIG Q8H TRAVIS Rx#:[id number] Zyvox 600 mg Premix 300 ML @ 300 / 300 300 / 300 300 mls/hr IV.SIG Q12H TRAVIS Rx#: [id number] Zosyn 2.25 GM Premix 2.25 gm In 50 / 50 50 ml @ 100 mls/hr IV.SIG Q6H TRAVIS Rx#:[id number] NS Inj 250 ML @ 15 mls/hr IV. 250 / 250 SIG ONCE TRAVIS Rx#:[id number] Oral 480 / 480 480 / 480 Intake (Blood Product) Amt 400 / 400 0 / 0 400 / 400 Rbc As-3 Leukoreduced Unit 0 / 0 400 / 400 [id number] Rbc As-3 Leukoreduced Unit 0 / 0 [id number] Rbc As-3 Leukoreduced Unit 400 / 400 [id number] Output: Urine Amount (Stoma) 550 / 550 300 / 300 Pre-Hospital: Continent 550 / 550 300 / 300 Urostomy Right Wound Drainage 600 / 600 85 / 85 Left Lower Lateral Abdomen 300 / 300 65 / 65 Pigtail Right Lower Lateral Abdomen 300 / 300 20 / 20 Pigtail Other: Date of Last Bowel Movement 08/20/18 08/20/18 # Bowel Movements 1 # Incontinent Bowel Movements 1 Narrative: Clear lungs bilaterally, unlabored breathing Heart sounds regular rate and rhythm Right nephrostomy tube in place, no underlying palpable ecchymosis or induration or surrounding skin changes at insertion site Awake alert, no acute distress Results - Labs CBC & Chem 7: 08/22/18 05:13 08/21/18 03:29 Laboratory Results - last 24 hr 12/08/18/18 08/20/18 06:50 21:15 08:46 Hgb Hct Sodium Potassium Chloride Carbon Dioxide Anion Gap BUN Creatinine Estimated GFR POC Glucose Random Glucose Calcium Blood Type Antibody Screen MTS Gel Crossmatch See Detail See Detail See Detail Bld Prod Order Comment 08/20/18 08/20/18 08/21/18 12:02 20:00 03:29 Hgb 8.2 L 6.5 L* Hct 23.5 L 18.7 L* Sodium Potassium Chloride Carbon Dioxide Anion Gap BUN Creatinine Estimated GFR POC Glucose 146 H Random Glucose Calcium Blood Type Antibody Screen MTS Gel Crossmatch Bld Prod Order Comment 08/21/18 08/21/18 08/21/18 03:29 04:45 09:44 Hgb Hct Sodium 143 Potassium 3.7 Chloride 113 H Carbon Dioxide 20.9 L Anion Gap 9 BUN 46 H Creatinine 2.78 H Estimated GFR 22 L POC Glucose Random Glucose 154 H Calcium 7.8 L Blood Type A Positive Antibody Screen Negative MTS Gel Crossmatch See Detail See Detail Bld Prod Order Comment Microbiology 08/19/18 14:10 Random Urine Urine Culture - Preliminary gram negative rods Yeast species 08/19/18 14:10 Random Urine Urine Culture - Preliminary gram negative rods 08/20/18 11:10 Stool Stool Occult Blood (KIRILL) - Final Hemoccult negative 08/17/18 03:00 Blood - Peripheral Aerobic Blood Culture - Preliminary No growth in 3 days 08/17/18 03:00 Blood - Peripheral Anaerobic Blood Culture - Preliminary No growth in 3 days 08/17/18 03:15 Blood - Peripheral Aerobic Blood Culture - Preliminary No growth in 3 days 08/17/18 03:15 Blood - Peripheral Anaerobic Blood Culture - Preliminary No growth in 3 days 08/17/18 03:15 Catheterized Urine Urine Culture - Final Pseudomonas aeruginosa Multidrug Resistant Enterococcus faecium VRE - Imaging Impressions Abdomen/Pelvis CT 08/20/18 17:08 CONCLUSION: 1. Interval placement of bilateral percutaneous cystostomy catheters. The right nephrostomy catheter has been retracted from the renal pelvis and may potentially be in a calyx but remains in the kidney. There is an associated moderate to large sized perinephric hematoma extending inferiorly to the region of the pelvis. 2. Redemonstration of bilateral renal calculi unchanged from recent prior CT exam. 3. Additional stable ancillary findings, as above. Findings were personally discussed with hospitalist. Patient is currently hemodynamically stable. Will monitor with serial H&H and consider further intervention as clinically necessary. Assessment and Plan - Plan 78yM presenting with recurrent urosepsis/ septic shock complicated by obstructive uropathy/ urostomy resulting in acute on chronic renal failure with hyperkalemia. CT upon admission showed dilation of left renal collecting system and ureter with double-J stent question him collecting system into diverting bowel loop in the right lower quadrant which has developed since his last CT scan in June. Admitted to the ICU started on aggressive IV fluids and pressors. Ultimately had obstructive uropathy in the left renal collecting system and ureter, had bilateral nephrostomy tubes placed on 08/17 with improvement. Urology following. Acute obstructive uropathy History of RLQ urostomy with double J stent acute on chronic kidney disease relieved with bilateral nephrostomy tubes in placed on 08/18 Teflaro and Zyvox per ID ID following, will recheck urine culture per ID -continue gentle IVFs * Urology recommending internalization of PCNs once pt is more stable from infx standpoint History of seizure disorder * Continue home keppra * Delirium precautions Anemia requiring transfusions * perinephric hematoma seen on CT, partially retracted nephrostomy tube, order additional 1 U PRBC this AM, trend h/h for now * hold anticoagulation at this time, tight blood pressure control to keep < 140/ 90 atrial fibrillation Chronic orthostatic hypotension continue DVT prophylaxis * Continue home doses of midodrine/ fludrocortisone * Stable AAA seen on CT abd/pelvis measuring 3.5 cm, outpatient follow up * Will hold digoxin for now given elevated level and impaired renal function, recheck in 1 days COPD * Incentive spirometer * Scheduled/ PRN nebs Acute on chronic kidney injury- improving History of parotidectomy * Cardiac diet * Continue home dose of pilocarpine to aid in salivation as patient has had a parotidectomy -SCDs -PPI
[2018-08-21] MEDS ORDERED: Sodium Chlor 0.9% Inj 250 ML IV.SIG SCH (10:00)
--- NOTE | 2018-08-21 14:49 | P.PNID ---
Subjective Remarks: Patient says that he feels better. No nausea today. Afebrile. White blood cell count decreased to normal. Urine from nephrostomy tube has multidrug-resistant Pseudomonas same as previous urine culture. 78-year-old white male who was admitted to the hospital after he presented to the emergency department on 08/17/2018. The patient developed fever. He is a resident of a [place] [facility]. He was also noted to have hypotension and tachycardia. Reportedly, blood pressure was down to 60/40. He has a history of urostomy. His temperature was 98.1 in the emergency department. The patient had elevated white cell count of 26.5. The patient was evaluated and eventually underwent placement of bilateral nephrostomy tubes. Urine culture has growth of Enterococcus species VRE and Pseudomonas aeruginosa. The Pseudomonas is extremely resistant. Past Medical History: PAST MEDICAL HISTORY: Atrial fibrillation, chronic kidney disease, stage IV, COPD, hypertension, history of Clostridium difficile, hyperlipidemia, kidney stones, history of intertrochanteric fracture of the left hip, history of open left femoral fracture, prostate cancer parotid mass, subdural hematoma. Allergies/Adverse Reactions: Allergies crab Allergy (Intermediate, Verified 08/17/18 01:55) Rash Blue Shell crab causes severe rash all over face and neck. Needs PCN to help clear it up. Patient CAN eat Shrimp and clams, scallops, oysters without problems. Objective Vital Signs 08/20/18 15:00 08/20/18 15:18 08/20/18 16:00 Temperature Pulse Rate 94 H 83 91 H Respiratory Rate 35 H 30 H 41 H Blood Pressure 171/84 H Pulse Oximetry 89 L 94 L 91 L 08/20/18 16:14 08/20/18 16:15 08/20/18 16:18 Temperature Pulse Rate 97 H 86 97 H Respiratory Rate 40 H 39 H 37 H Blood Pressure 188/120 H 192/121 H 185/89 H Pulse Oximetry 96 95 82 L 08/20/18 16:30 08/20/18 16:33 08/20/18 17:00 Temperature Pulse Rate 92 H 90 Respiratory Rate 38 H 40 H Blood Pressure 184/104 H 191/98 H Pulse Oximetry 96 96 99 08/20/18 17:03 08/20/18 17:13 08/20/18 17:26 Temperature Pulse Rate Respiratory Rate Blood Pressure 179/104 H 173/107 H 169/106 H Pulse Oximetry 98 88 L 94 L 08/20/18 17:36 08/20/18 18:00 08/20/18 18:06 Temperature Pulse Rate 107 H 98 H 92 H Respiratory Rate 40 H 37 H Blood Pressure 140/81 123/75 Pulse Oximetry 97 97 94 L 08/20/18 18:36 08/20/18 19:00 08/20/18 19:06 Temperature Pulse Rate 93 H 86 88 Respiratory Rate 33 H 29 H 35 H Blood Pressure 104/58 L 128/71 Pulse Oximetry 95 08/20/18 19:36 08/20/18 20:00 08/20/18 20:06 Temperature 97.5 F L Pulse Rate 91 H 88 90 Respiratory Rate 34 H 33 H 34 H Blood Pressure 137/71 132/74 Pulse Oximetry 98 08/20/18 20:36 08/20/18 20:44 08/20/18 21:00 Temperature Pulse Rate 87 98 H 96 H Respiratory Rate 35 H 22 35 H Blood Pressure 145/89 H Pulse Oximetry 99 08/20/18 21:06 08/20/18 21:36 08/20/18 22:00 Temperature Pulse Rate 91 H 94 H 94 H Respiratory Rate 43 H 34 H 33 H Blood Pressure 111/78 138/76 Pulse Oximetry 95 99 08/20/18 22:06 08/20/18 22:36 08/20/18 23:00 Temperature Pulse Rate 98 H 93 H 89 Respiratory Rate 32 H 31 H 30 H Blood Pressure 128/75 148/92 H Pulse Oximetry 98 99 98 08/20/18 23:06 08/20/18 23:36 08/21/18 00:00 Temperature 97.6 F Pulse Rate 89 87 91 H Respiratory Rate 29 H 28 H 37 H Blood Pressure 156/76 H 140/63 Pulse Oximetry 99 99 90 L 08/21/18 00:06 08/21/18 00:31 08/21/18 00:36 Temperature Pulse Rate 88 86 87 Respiratory Rate 15 22 29 H Blood Pressure 120/71 131/80 Pulse Oximetry 97 100 08/21/18 01:00 08/21/18 01:06 08/21/18 01:36 Temperature Pulse Rate 91 H 92 H 96 H Respiratory Rate 29 H 33 H 31 H Blood Pressure 122/73 114/75 Pulse Oximetry 99 98 99 08/21/18 02:00 08/21/18 02:06 08/21/18 02:36 Temperature Pulse Rate 92 H 97 H 93 H Respiratory Rate 29 H 29 H 29 H Blood Pressure 137/67 120/69 Pulse Oximetry 98 99 99 08/21/18 03:00 08/21/18 03:06 08/21/18 03:36 Temperature Pulse Rate 91 H 94 H 91 H Respiratory Rate 30 H 28 H 31 H Blood Pressure 126/69 112/55 L Pulse Oximetry 97 97 98 08/21/18 04:00 08/21/18 04:06 08/21/18 04:36 Temperature 98.1 F Pulse Rate 86 89 88 Respiratory Rate 24 29 H 29 H Blood Pressure 112/60 106/65 Pulse Oximetry 99 97 97 08/21/18 05:00 08/21/18 05:06 08/21/18 05:36 Temperature Pulse Rate 86 85 85 Respiratory Rate 21 14 18 Blood Pressure 111/58 L 107/57 L Pulse Oximetry 97 100 98 08/21/18 06:00 08/21/18 06:06 08/21/18 06:41 Temperature 97.9 F Pulse Rate 86 84 80 Respiratory Rate 12 29 H 28 H Blood Pressure 111/61 102/54 L Pulse Oximetry 98 100 08/21/18 07:00 08/21/18 07:06 08/21/18 07:36 Temperature Pulse Rate 86 81 85 Respiratory Rate 26 H 29 H 28 H Blood Pressure 112/60 Pulse Oximetry 95 99 97 08/21/18 08:00 08/21/18 08:06 08/21/18 08:36 Temperature 98.1 F Pulse Rate 83 85 75 Respiratory Rate 38 H 32 H 33 H Blood Pressure 126/60 113/62 Pulse Oximetry 97 99 96 08/21/18 08:52 08/21/18 09:00 08/21/18 09:06 Temperature Pulse Rate 78 74 88 Respiratory Rate 24 28 H 44 H Blood Pressure 105/59 L Pulse Oximetry 96 95 98 08/21/18 10:00 08/21/18 10:39 08/21/18 11:00 Temperature Pulse Rate 99 H 93 H 86 Respiratory Rate 29 H 29 H 22 Blood Pressure 106/73 122/64 Pulse Oximetry 97 99 85 L 08/21/18 11:07 08/21/18 11:14 08/21/18 11:26 Temperature 98.2 F 98.2 F Pulse Rate 81 93 H 94 H Respiratory Rate 20 20 28 H Blood Pressure 122/64 122/64 Pulse Oximetry 08/21/18 11:39 08/21/18 12:00 Temperature 98.2 F Pulse Rate 100 H 103 H Respiratory Rate 30 H 34 H Blood Pressure 126/74 Pulse Oximetry 96 98 Intake & Output 08/20/18 08/21/18 08/21/18 18:59 06:59 18:59 Intake Total 2580 / 2580 880 / 880 500 / 500 Output Total 1150 / 1150 385 / 385 Balance 1430 / 1430 495 / 495 500 / 500 Weight 73.2 kg Intake: IV 1700 / 1700 400 / 400 100 / 100 NS Inj 1,000 ML @ 42 mls/hr IV. 1000 / 1000 CONT .[id number] TRA[facility] Rx#:[id number] Zerbaxa Inj 375 MG In NS Inj 100 / 100 100 / 100 100 / 100 100 ML @ 100 mls/hr IV.SIG Q8H TRAVIS Rx#:[id number] Zyvox 600 mg Premix 300 ML @ 300 / 300 300 / 300 300 mls/hr IV.SIG Q12H TRAVIS Rx#: [id number] Zosyn 2.25 GM Premix 2.25 gm In 50 / 50 50 ml @ 100 mls/hr IV.SIG Q6H TRAVIS Rx#:[id number] NS Inj 250 ML @ 15 mls/hr IV. 250 / 250 SIG ONCE TRAVIS Rx#:[id number] Oral 480 / 480 480 / 480 Intake (Blood Product) Amt 400 / 400 0 / 0 400 / 400 Rbc As-3 Leukoreduced Unit 0 / 0 400 / 400 [id number] Rbc As-3 Leukoreduced Unit 0 / 0 [id number] Rbc As-3 Leukoreduced Unit 400 / 400 [id number] Rbc As-3 Leukoreduced Unit 0 / 0 [id number] Output: Urine Amount (Stoma) 550 / 550 300 / 300 Pre-Hospital: Continent 550 / 550 300 / 300 Urostomy Right Wound Drainage 600 / 600 85 / 85 Left Lower Lateral Abdomen 300 / 300 65 / 65 Pigtail Right Lower Lateral Abdomen 300 / 300 20 / 20 Pigtail Other: Date of Last Bowel Movement 08/20/18 08/20/18 08/21/18 # Bowel Movements 1 # Incontinent Bowel Movements 1 08/19/18 14:10 Random Urine Urine Culture - Final Pseudomonas aeruginosa Multidrug Resistant Shawanda tropicalis 08/17/18 03:00 Blood - Peripheral Aerobic Blood Culture - Preliminary No growth in 4 days 08/17/18 03:00 Blood - Peripheral Anaerobic Blood Culture - Preliminary No growth in 4 days 08/17/18 03:15 Blood - Peripheral Aerobic Blood Culture - Preliminary No growth in 4 days 08/17/18 03:15 Blood - Peripheral Anaerobic Blood Culture - Preliminary No growth in 4 days 08/19/18 14:10 Random Urine Urine Culture - Final Pseudomonas aeruginosa Multidrug Resistant 08/20/18 11:10 Stool Stool Occult Blood ([facility]) - Final Hemoccult negative 08/17/18 03:15 Catheterized Urine Urine Culture - Final Pseudomonas aeruginosa Multidrug Resistant Enterococcus faecium VRE Lab - Hematology Results 08/20/18 08/20/18 08/21/18 03:59 20:00 03:29 WBC 7.9 RBC 2.18 L Hgb 7.0 L 8.2 L 6.5 L* Hct 20.1 L* 23.5 L 18.7 L* MCV 92.5 MCH 32.2 MCHC 34.8 RDW 16.8 Plt Count 152 MPV 8.4 Prelim Diff (Auto) [place] Neut % (Auto) 76.6 H Lymph % (Auto) 10.5 [place] % (Auto) 9.7 H Eos % (Auto) 2.9 Baso % (Auto) 0.3 Neut # (Auto) 6.0 Lymph # (Auto) 0.8 L [place] # (Auto) 0.8 Eos # (Auto) 0.2 Baso # (Auto) 0.0 WBC Differential . Differential Comment Auto diff final Lab - Chemistry Results 08/20/18 08/20/18 08/21/18 03:59 12:02 03:29 Sodium 141 143 Potassium 3.4 L 3.7 Chloride 111 H 113 H Carbon Dioxide 19.5 L 20.9 L Anion Gap 11 9 BUN 45 H 46 H Creatinine 2.65 H 2.78 H Estimated GFR 23 L 22 L POC Glucose 146 H Random Glucose 101 154 H Calcium 7.8 L 7.8 L Phosphorus 2.8 Magnesium 1.6 Total Bilirubin 0.5 AST 24 ALT 30 Alkaline Phosphatase 73 Total Protein 6.1 L Albumin 2.2 L Imaging: ITS Impressions Nephrostomy 08/17/18 00:00 CONCLUSION: 1. Uncomplicated nephrostomy tube placement as above. Chest X-Ray 08/17/18 02:07 CONCLUSION: The lungs are clear. Abdomen/Pelvis CT 08/20/18 17:08 CONCLUSION: 1. Interval placement of bilateral percutaneous cystostomy catheters. The right nephrostomy catheter has been retracted from the renal pelvis and may potentially be in a calyx but remains in the kidney. There is an associated moderate to large sized perinephric hematoma extending inferiorly to the region of the pelvis. 2. Redemonstration of bilateral renal calculi unchanged from recent prior CT exam. 3. Additional stable ancillary findings, as above. Findings were personally discussed with hospitalist. Patient is currently hemodynamically stable. Will monitor with serial H&H and consider further intervention as clinically necessary. Physical Exam: PHYSICAL EXAMINATION: GENERAL: Awake and alert. HEENT: Head is atraumatic. Extraocular movements grossly intact. Pupils reactive to light. No icterus. Oropharynx: Moist mucosa. NECK: Supple without adenopathy or swelling. LUNGS: Breath sounds. HEART: Regular S1, S2. No audible murmurs. ABDOMEN: Bowel sounds present. Soft, no tenderness. EXTREMITIES: No clubbing, cyanosis or edema. SKIN: No rash. NEUROLOGIC: No gross focal findings. PSYCHIATRIC: Calm and cooperative. Assessment and Plan - Plan IMPRESSION: 1. Urinary tract infection due to Enterococcus (vancomycin-resistant Enterococcus) and Pseudomonas. Repeat urine culture has multi resistant Pseudomonas. 2. Status post bilateral nephrostomy. 3. Chronic kidney disease. 4. Sepsis/septic shock on admission. 5. History of recurrent Clostridium difficile infection. C. difficile toxin negative this admission. RECOMMENDATIONS: 1. Continue Ceftolozane/tazobactam. For the resistant Pseudomonas while awaiting culture 2. Stop Zyvox. 3. Follow clinical status.
[2018-08-21 17:21] LABS: Hematocrit 23.4 % (39.0-51.0)
[2018-08-21] MEDS: Sod Chloride 0.9% Inj 1,000 ML IV.CONT SCH (20:10)
[2018-08-22] MEDS: TAZOBACTAM IV.SIG SCH ×3 (00:45→17:34)
[2018-08-22] MEDS: CEFTOLOZANE IV.SIG SCH ×3 (00:45→17:34)
[2018-08-22] MEDS: SODIUM CHLOR 0.9% IV.SIG SCH ×3 (00:45→17:34)
[2018-08-22] MEDS: Chlorhexidine Gluconate 2% 1 Pack (2 Cloths) TOPICAL SCH (03:09)
[2018-08-22 05:58] LABS: Hematocrit 21.4 % (39.0-51.0); Hemoglobin 7.4 gm/dL (13.0-17.0)
[2018-08-22] MEDS: Labetalol HCl Inj 100 MG/20 ML Vial IV.PUSH PRN ×3 (06:25→18:48)
[2018-08-22] MEDS: Multivit/Folic Acid/Minerals Chewable Tablets CHEW SCH (08:16)
[2018-08-22] MEDS: Famotidine PF Inj 20 MG/2 ML Vial IV.PUSH SCH ×2 (08:16→21:14)
[2018-08-22] MEDS: levETIRAcetam 500 MG Tablet PO SCH ×2 (08:16→21:15)
[2018-08-22] MEDS: Pilocarpine HCl 5 MG Tablet PO SCH ×2 (08:16→21:15)
[2018-08-22] MEDS: Senna/Docusate Sodium 8.6/50 MG Tablet PO SCH ×2 (08:19→21:16)
[2018-08-22] MEDS: Sod Chloride 0.9% Inj 1,000 ML IV.CONT SCH (10:44)
--- NOTE | 2018-08-22 12:59 | P.PNIM ---
Subjective Interval history: Nursing denies any acute changes overnight. He feels good. Denies any pain. no Nausea. Physical Exam Vital signs: Vital Signs 08/21/18 13:00 08/21/18 13:39 08/21/18 14:00 Temperature Pulse Rate 89 94 H 82 Respiratory Rate 29 H 38 H 32 H Blood Pressure 129/63 Pulse Oximetry 98 97 94 L 08/21/18 14:39 08/21/18 15:00 08/21/18 15:39 Temperature Pulse Rate 87 85 85 Respiratory Rate 29 H 28 H 28 H Blood Pressure 115/65 131/72 Pulse Oximetry 98 96 98 08/21/18 16:00 08/21/18 16:39 08/21/18 17:00 Temperature 98.0 F Pulse Rate 83 81 90 Respiratory Rate 28 H 28 H 30 H Blood Pressure 132/75 Pulse Oximetry 98 98 96 08/21/18 17:39 08/21/18 18:00 08/21/18 18:39 Temperature Pulse Rate 86 81 84 Respiratory Rate 29 H 29 H 22 Blood Pressure 124/75 117/68 Pulse Oximetry 97 97 98 08/21/18 19:00 08/21/18 19:39 08/21/18 20:00 Temperature 98.8 F Pulse Rate 78 79 84 Respiratory Rate 22 22 22 Blood Pressure 118/79 Pulse Oximetry 98 99 96 08/21/18 20:16 08/21/18 20:39 08/21/18 21:00 Temperature Pulse Rate 80 83 89 Respiratory Rate 16 18 22 Blood Pressure 115/66 Pulse Oximetry 99 97 97 08/21/18 21:39 08/21/18 22:00 08/21/18 22:39 Temperature Pulse Rate 81 88 83 Respiratory Rate 22 22 22 Blood Pressure 121/70 128/62 Pulse Oximetry 95 97 95 08/21/18 23:00 08/21/18 23:39 08/22/18 00:00 Temperature Pulse Rate 85 83 86 Respiratory Rate 22 22 22 Blood Pressure 121/65 Pulse Oximetry 96 95 96 08/22/18 00:39 08/22/18 01:00 08/22/18 01:04 Temperature Pulse Rate 86 76 72 Respiratory Rate 22 22 Blood Pressure 127/63 Pulse Oximetry 95 97 08/22/18 01:39 08/22/18 02:00 08/22/18 02:20 Temperature Pulse Rate 83 79 70 Respiratory Rate 22 22 Blood Pressure 129/78 Pulse Oximetry 96 95 08/22/18 02:39 08/22/18 03:00 08/22/18 03:39 Temperature 98.6 F Pulse Rate 84 91 H 83 Respiratory Rate 22 22 22 Blood Pressure 129/75 136/78 Pulse Oximetry 95 96 96 08/22/18 04:00 08/22/18 04:39 08/22/18 05:00 Temperature Pulse Rate 78 81 73 Respiratory Rate 22 20 19 Blood Pressure 148/78 H Pulse Oximetry 96 96 96 08/22/18 05:39 08/22/18 06:00 08/22/18 06:11 Temperature Pulse Rate 77 82 72 Respiratory Rate 22 22 22 Blood Pressure 126/73 Pulse Oximetry 96 96 95 08/22/18 06:14 08/22/18 06:18 08/22/18 07:00 Temperature Pulse Rate 78 82 69 Respiratory Rate 22 20 29 H Blood Pressure 142/72 H 142/67 H Pulse Oximetry 95 95 96 08/22/18 07:39 08/22/18 08:00 08/22/18 08:39 Temperature Pulse Rate 72 75 68 Respiratory Rate 29 H 26 H 26 H Blood Pressure 144/65 H 130/69 Pulse Oximetry 97 97 98 08/22/18 09:00 08/22/18 10:00 08/22/18 11:00 Temperature Pulse Rate 73 87 76 Respiratory Rate 49 H 31 H 29 H Blood Pressure 140/75 Pulse Oximetry 98 96 86 L 08/22/18 12:00 08/22/18 12:39 Temperature Pulse Rate 77 77 Respiratory Rate 29 H 25 H Blood Pressure 139/81 Pulse Oximetry 93 L 98 Intake & Output 08/21/18 08/22/18 08/22/18 18:59 06:59 18:59 Intake Total 2400 / 2400 590 / 590 100 / 100 Output Total 485 / 485 775 / 775 Balance 1915 / 1915 -185 / -185 100 / 100 Weight 76.2 kg Intake: IV 1200 / 1200 350 / 350 100 / 100 NS Inj 1,000 ML @ 42 mls/hr IV. 1000 / 1000 CONT .[id number] [facility] Rx#:[id number] Zerbaxa Inj 375 MG In NS Inj 200 / 200 100 / 100 100 / 100 100 ML @ 100 mls/hr IV.SIG Q8H [facility] Rx#:[id number] NS Inj 250 ML @ 15 mls/hr IV. 250 / 250 SIG ONCE TRAVIS Rx#:[id number] Oral 400 / 400 240 / 240 Intake (Blood Product) Amt 800 / 800 Rbc As-3 Leukoreduced Unit 400 / 400 [id number] Rbc As-3 Leukoreduced Unit 400 / 400 [id number] Output: Urine Amount (Stoma) 140 / 140 100 / 100 Pre-Hospital: Continent 140 / 140 100 / 100 Urostomy Right Wound Drainage 345 / 345 675 / 675 Left Lower Lateral Abdomen 325 / 325 600 / 600 Pigtail Right Lower Lateral Abdomen 20 / 20 75 / 75 Pigtail Other: Date of Last Bowel Movement 08/21/18 08/21/18 08/22/18 # Bowel Movements 2 1 # Incontinent Bowel Movements 2 Narrative: Clear lungs bilaterally, unlabored breathing Heart sounds regular rate and rhythm Bilateral nephrostomy tubes in place, has mild tenderness over right nephrostomy tube insertion site and immediately surrounding tissue with no associated induration or erythema Awake and alert, no acute distress Results - Labs CBC & Chem 7: 08/22/18 05:13 08/21/18 03:29 Laboratory Results - last 24 hr 08/21/18 08/21/18 08/22/18 09:44 16:54 05:13 Hgb 8.0 L Hct 23.4 L Digoxin 1.7 MTS Gel Crossmatch See Detail 08/22/18 05:13 Hgb 7.4 L Hct 21.4 L Digoxin MTS Gel Crossmatch Microbiology 08/17/18 03:00 Blood - Peripheral Aerobic Blood Culture - Final No growth in 5 days 08/17/18 03:00 Blood - Peripheral Anaerobic Blood Culture - Final No growth in 5 days 08/17/18 03:15 Blood - Peripheral Aerobic Blood Culture - Final No growth in 5 days 08/17/18 03:15 Blood - Peripheral Anaerobic Blood Culture - Final No growth in 5 days 08/19/18 14:10 Random Urine Urine Culture - Final Pseudomonas aeruginosa Multidrug Resistant Shawanda tropicalis 08/19/18 14:10 Random Urine Urine Culture - Final Pseudomonas aeruginosa Multidrug Resistant Assessment and Plan - Plan 78yM presenting with recurrent urosepsis/ septic shock complicated by obstructive uropathy/ urostomy resulting in acute on chronic renal failure with hyperkalemia. CT upon admission showed dilation of left renal collecting system and ureter with double-J stent question him collecting system into diverting bowel loop in the right lower quadrant which has developed since his last CT scan in June. Admitted to the ICU started on aggressive IV fluids and pressors. Ultimately had obstructive uropathy in the left renal collecting system and ureter, had bilateral nephrostomy tubes placed on 08/17 with improvement. Urology following. Grew out MDR pseudomonas and VRE UTI, ID eventually started pt on Teflaro. Acute obstructive uropathy History of RLQ urostomy with double J stent acute on chronic kidney disease relieved with bilateral nephrostomy tubes in placed on 08/18 Teflaro per ID ID following, will recheck urine culture per ID -continue gentle IVFs * Urology recommending internalization of PCNs once pt is more stable from infx standpoint Intraperitoneal hematoma Anemia requiring transfusions * adjacent to right nephrostomy tube, likely has tamponaded off, trend h/h * hold anticoagulation at this time, tight blood pressure control to keep < 140/ 90 History of seizure disorder * Continue home keppra * Delirium precautions atrial fibrillation Chronic orthostatic hypotension continue DVT prophylaxis * Continue home doses of midodrine/ fludrocortisone * Stable AAA seen on CT abd/pelvis measuring 3.5 cm, outpatient follow up * Digoxin level WNL, will remain stopped for now given impaired RF. monitor pulse COPD * Incentive spirometer * Scheduled/ PRN nebs chronic kidney injury- -Appears to have reached baseline levels, recheck in aM, stopping IVFs History of parotidectomy * Cardiac diet * Continue home dose of pilocarpine to aid in salivation as patient has had a parotidectomy -SCDs -PPI
[2018-08-22 15:37] LABS: Calcium 7.9 mg/dL (8.5-10.1); Potassium 3.5 meq/L (3.5-5.1)
[2018-08-23] MEDS: TAZOBACTAM IV.SIG SCH ×3 (00:02→16:33)
[2018-08-23] MEDS: SODIUM CHLOR 0.9% IV.SIG SCH ×3 (00:02→16:33)
[2018-08-23] MEDS: CEFTOLOZANE IV.SIG SCH ×3 (00:02→16:33)
[2018-08-23 06:43] LABS: Hematocrit 22.5 % (39.0-51.0); Hemoglobin 7.6 gm/dL (13.0-17.0)
[2018-08-23 06:53] LABS: Carbon Dioxide 19.9 meq/L (21.0-32.0); Potassium 3.5 meq/L (3.5-5.1)
[2018-08-23] MEDS: Chlorhexidine Gluconate 2% 1 Pack (2 Cloths) TOPICAL SCH (07:28)
[2018-08-23] MEDS: Pilocarpine HCl 5 MG Tablet PO SCH ×2 (08:00→20:25)
[2018-08-23] MEDS: levETIRAcetam 500 MG Tablet PO SCH ×2 (08:00→20:25)
[2018-08-23] MEDS: Senna/Docusate Sodium 8.6/50 MG Tablet PO SCH ×2 (08:00→20:25)
[2018-08-23] MEDS: Multivit/Folic Acid/Minerals Chewable Tablets CHEW SCH (08:00)
[2018-08-23] MEDS: Famotidine PF Inj 20 MG/2 ML Vial IV.PUSH SCH ×2 (08:00→20:26)
--- NOTE | 2018-08-23 12:00 | P.PNID ---
Subjective Remarks: Patient says he feels okay. No complaints. No fever. This is a 78-year-old white male who was admitted to the hospital after he presented to the emergency department on 08/17/2018. The patient developed fever. [facility] a [facility] a [facility]. He was also noted to have hypotension and tachycardia. Reportedly, blood pressure was down to 60/40. He has a history of urostomy. His temperature was 98.1 in the emergency department. The patient had elevated white cell count of 26.5. The patient was evaluated and eventually underwent placement of bilateral nephrostomy tubes. Urine culture has growth of Enterococcus species VRE and Pseudomonas aeruginosa. The Pseudomonas is extremely resistant. Past Medical History: PAST MEDICAL HISTORY: Atrial fibrillation, chronic kidney disease, stage IV, COPD, hypertension, history of Clostridium difficile, hyperlipidemia, kidney stones, history of intertrochanteric fracture of the left hip, history of open left femoral fracture, prostate cancer parotid mass, subdural hematoma. Allergies/Adverse Reactions: Allergies crab Allergy (Intermediate, Verified 08/17/18 01:55) Rash Blue Shell crab causes severe rash all over face and neck. Needs PCN to help clear it up. Patient CAN eat Shrimp and clams, scallops, oysters without problems. Objective Vital Signs 08/22/18 12:00 08/22/18 12:39 08/22/18 13:00 Temperature 98.1 F Pulse Rate 77 77 71 Respiratory Rate 29 H 25 H 24 Blood Pressure 139/81 139/81 Pulse Oximetry 93 L 98 98 08/22/18 14:00 08/22/18 15:00 08/22/18 16:00 Temperature 98.4 F Pulse Rate 74 74 64 Respiratory Rate 33 H 29 H 28 H Blood Pressure 157/65 H 123/70 Pulse Oximetry 91 L 96 99 08/22/18 17:00 08/22/18 18:00 08/22/18 18:39 Temperature Pulse Rate 70 66 77 Respiratory Rate 27 H 28 H 32 H Blood Pressure 126/65 174/79 H Pulse Oximetry 96 98 94 L 08/22/18 19:00 08/22/18 19:15 08/22/18 19:39 Temperature Pulse Rate 70 67 65 Respiratory Rate 31 H 37 H 28 H Blood Pressure 139/78 145/77 H Pulse Oximetry 86 L 96 94 L 08/22/18 20:00 08/22/18 20:39 08/22/18 21:00 Temperature 98.1 F Pulse Rate 66 70 65 Respiratory Rate 27 H 29 H 28 H Blood Pressure 143/87 H Pulse Oximetry 97 99 99 08/22/18 21:39 08/22/18 22:00 08/22/18 22:39 Temperature Pulse Rate 72 82 72 Respiratory Rate 28 H 47 H 28 H Blood Pressure 162/77 H 155/90 H Pulse Oximetry 98 82 L 94 L 08/22/18 23:00 08/22/18 23:39 08/23/18 00:00 Temperature 98.2 F Pulse Rate 83 82 78 Respiratory Rate 30 H 31 H 25 H Blood Pressure 142/85 H Pulse Oximetry 95 94 L 97 08/23/18 00:39 08/23/18 01:00 08/23/18 01:39 Temperature Pulse Rate 83 73 78 Respiratory Rate 26 H 28 H 30 H Blood Pressure 151/73 H 153/74 H Pulse Oximetry 95 97 96 08/23/18 02:00 08/23/18 02:39 08/23/18 03:00 Temperature Pulse Rate 78 81 76 Respiratory Rate 28 H 31 H 33 H Blood Pressure 154/76 H Pulse Oximetry 96 96 93 L 08/23/18 03:39 08/23/18 04:00 08/23/18 04:39 Temperature 98.1 F Pulse Rate 78 78 77 Respiratory Rate 29 H 26 H 26 H Blood Pressure 155/97 H 170/80 H Pulse Oximetry 97 96 97 08/23/18 05:00 08/23/18 05:39 08/23/18 06:00 Temperature Pulse Rate 77 75 80 Respiratory Rate 28 H 25 H 40 H Blood Pressure 170/80 H 160/84 H Pulse Oximetry 96 95 87 L 08/23/18 06:39 08/23/18 07:00 08/23/18 07:39 Temperature Pulse Rate 71 74 75 Respiratory Rate 29 H 29 H 28 H Blood Pressure 159/78 H 152/88 H Pulse Oximetry 98 88 L 98 08/23/18 08:00 08/23/18 08:15 08/23/18 08:17 Temperature 98.8 F Pulse Rate 73 77 75 Respiratory Rate 33 H 31 H 28 H Blood Pressure 160/104 H 185/93 H Pulse Oximetry 98 95 81 L 08/23/18 08:39 08/23/18 09:00 08/23/18 09:39 Temperature 98.8 F Pulse Rate 77 81 78 Respiratory Rate 29 H 30 H 31 H Blood Pressure 168/84 H 157/109 H Pulse Oximetry 95 91 L 89 L 08/23/18 10:00 08/23/18 10:39 08/23/18 11:00 Temperature Pulse Rate 82 68 78 Respiratory Rate 30 H 23 28 H Blood Pressure 153/80 H Pulse Oximetry 87 L 95 98 Intake & Output 08/22/18 08/23/18 08/23/18 18:59 06:59 18:59 Intake Total 980 / 980 440 / 440 100 / 100 Output Total 805 / 805 1250 / 1250 Balance 175 / 175 -810 / -810 100 / 100 Weight 77.1 kg Intake: IV 500 / 500 200 / 200 100 / 100 NS Inj 1,000 ML @ 42 mls/hr IV. 400 / 400 CONT .[id number] [facility] Rx#:[id number] Zerbaxa Inj 375 MG In NS Inj 100 / 100 200 / 200 100 / 100 100 ML @ 100 mls/hr IV.SIG Q8H [facility] Rx#:[id number] Oral 480 / 480 240 / 240 Output: Urine Amount (Stoma) 120 / 120 100 / 100 Pre-Hospital: Continent 120 / 120 100 / 100 Urostomy Right Wound Drainage 685 / 685 1150 / 1150 Left Lower Lateral Abdomen 600 / 600 950 / 950 Pigtail Right Lower Lateral Abdomen 85 / 85 200 / 200 Pigtail Other: Date of Last Bowel Movement 08/22/18 08/23/18 08/23/18 # Bowel Movements 1 1 # Incontinent Bowel Movements 1 08/17/18 03:00 Blood - Peripheral Aerobic Blood Culture - Final No growth in 5 days 08/17/18 03:00 Blood - Peripheral Anaerobic Blood Culture - Final No growth in 5 days 08/17/18 03:15 Blood - Peripheral Aerobic Blood Culture - Final No growth in 5 days 08/17/18 03:15 Blood - Peripheral Anaerobic Blood Culture - Final No growth in 5 days 08/19/18 14:10 Random Urine Urine Culture - Final Pseudomonas aeruginosa Multidrug Resistant Shawanda tropicalis 08/19/18 14:10 Random Urine Urine Culture - Final Pseudomonas aeruginosa Multidrug Resistant 08/20/18 11:10 Stool Stool Occult Blood ([facility]) - Final Hemoccult negative 08/17/18 03:15 Catheterized Urine Urine Culture - Final Pseudomonas aeruginosa Multidrug Resistant Enterococcus faecium VRE Lab - Hematology Results 08/21/18 08/22/18 08/23/18 16:54 05:13 06:18 Hgb 8.0 L 7.4 L 7.6 L Hct 23.4 L 21.4 L 22.5 L Lab - Chemistry Results 08/22/18 08/23/18 15:08 06:18 Sodium 145 147 H Potassium 3.5 3.5 Chloride 115 H 116 H Carbon Dioxide 20.0 L 19.9 L Anion Gap 10 11 BUN 42 H 45 H Creatinine 2.64 H 2.61 H Estimated GFR 24 L 24 L Random Glucose 109 H 88 Calcium 7.9 L 8.0 L Imaging: ITS Impressions Nephrostomy 08/17/18 00:00 CONCLUSION: 1. Uncomplicated nephrostomy tube placement as above. Chest X-Ray 08/17/18 02:07 CONCLUSION: The lungs are clear. Abdomen/Pelvis CT 08/20/18 17:08 CONCLUSION: 1. Interval placement of bilateral percutaneous cystostomy catheters. The right nephrostomy catheter has been retracted from the renal pelvis and may potentially be in a calyx but remains in the kidney. There is an associated moderate to large sized perinephric hematoma extending inferiorly to the region of the pelvis. 2. Redemonstration of bilateral renal calculi unchanged from recent prior CT exam. 3. Additional stable ancillary findings, as above. Findings were personally discussed with hospitalist. Patient is currently hemodynamically stable. Will monitor with serial H&H and consider further intervention as clinically necessary. Physical Exam: PHYSICAL EXAMINATION: GENERAL: Awake and alert. HEENT: Head is atraumatic. Extraocular movements grossly intact. Pupils reactive to light. No icterus. Oropharynx: Moist mucosa. NECK: Supple without adenopathy or swelling. LUNGS: Breath sounds. HEART: Irregular S1, S2. No audible murmurs. ABDOMEN: Bowel sounds present. Soft, no tenderness. Urine and nephrostomy both tube is clear. EXTREMITIES: No clubbing, cyanosis or edema. SKIN: No rash. NEUROLOGIC: No gross focal findings. PSYCHIATRIC: Calm and cooperative. Assessment and Plan - Plan IMPRESSION: 1. Urinary tract infection due to Enterococcus (vancomycin-resistant Enterococcus) and Pseudomonas. Repeat urine culture has multidrug-resistant Pseudomonas. 2. Status post bilateral nephrostomy. 3. Chronic kidney disease. 4. Sepsis/septic shock on admission. 5. History of recurrent Clostridium difficile infection. RECOMMENDATIONS: 1. Continue Ceftolozane/tazobactam for the resistant Pseudomonas. 2. Follow clinical status. Discussed with POLLY.
--- NOTE | 2018-08-23 14:07 | P.PNURO ---
Subjective Patient symptoms today: Pt was seen at the bed side. s/p bilateral nephrostomies, draining well . Doing better. no pain. ID is involved in UTI treatment. VS and LAbs are stable Objective Vital Signs: Vital Signs 08/22/18 15:00 08/22/18 16:00 08/22/18 17:00 Temperature 98.4 F Pulse Rate 74 64 70 Respiratory Rate 29 H 28 H 27 H Blood Pressure 123/70 126/65 Pulse Oximetry 96 99 96 08/22/18 18:00 08/22/18 18:39 08/22/18 19:00 Temperature Pulse Rate 66 77 70 Respiratory Rate 28 H 32 H 31 H Blood Pressure 174/79 H Pulse Oximetry 98 94 L 86 L 08/22/18 19:15 08/22/18 19:39 08/22/18 20:00 Temperature 98.1 F Pulse Rate 67 65 66 Respiratory Rate 37 H 28 H 27 H Blood Pressure 139/78 145/77 H Pulse Oximetry 96 94 L 97 08/22/18 20:39 08/22/18 21:00 08/22/18 21:39 Temperature Pulse Rate 70 65 72 Respiratory Rate 29 H 28 H 28 H Blood Pressure 143/87 H 162/77 H Pulse Oximetry 99 99 98 08/22/18 22:00 08/22/18 22:39 08/22/18 23:00 Temperature Pulse Rate 82 72 83 Respiratory Rate 47 H 28 H 30 H Blood Pressure 155/90 H Pulse Oximetry 82 L 94 L 95 08/22/18 23:39 08/23/18 00:00 08/23/18 00:39 Temperature 98.2 F Pulse Rate 82 78 83 Respiratory Rate 31 H 25 H 26 H Blood Pressure 142/85 H 151/73 H Pulse Oximetry 94 L 97 95 08/23/18 01:00 08/23/18 01:39 08/23/18 02:00 Temperature Pulse Rate 73 78 78 Respiratory Rate 28 H 30 H 28 H Blood Pressure 153/74 H Pulse Oximetry 97 96 96 08/23/18 02:39 08/23/18 03:00 08/23/18 03:39 Temperature Pulse Rate 81 76 78 Respiratory Rate 31 H 33 H 29 H Blood Pressure 154/76 H 155/97 H Pulse Oximetry 96 93 L 97 08/23/18 04:00 08/23/18 04:39 08/23/18 05:00 Temperature 98.1 F Pulse Rate 78 77 77 Respiratory Rate 26 H 26 H 28 H Blood Pressure 170/80 H 170/80 H Pulse Oximetry 96 97 96 08/23/18 05:39 08/23/18 06:00 08/23/18 06:39 Temperature Pulse Rate 75 80 71 Respiratory Rate 25 H 40 H 29 H Blood Pressure 160/84 H 159/78 H Pulse Oximetry 95 87 L 98 08/23/18 07:00 08/23/18 07:39 08/23/18 08:00 Temperature Pulse Rate 74 75 73 Respiratory Rate 29 H 28 H 33 H Blood Pressure 152/88 H Pulse Oximetry 88 L 98 98 08/23/18 08:15 08/23/18 08:17 08/23/18 08:39 Temperature 98.8 F Pulse Rate 77 75 77 Respiratory Rate 31 H 28 H 29 H Blood Pressure 160/104 H 185/93 H 168/84 H Pulse Oximetry 95 81 L 95 08/23/18 09:00 08/23/18 09:39 08/23/18 10:00 Temperature 98.8 F Pulse Rate 81 78 82 Respiratory Rate 30 H 31 H 30 H Blood Pressure 157/109 H Pulse Oximetry 91 L 89 L 87 L 08/23/18 10:39 08/23/18 11:00 08/23/18 11:39 Temperature Pulse Rate 68 78 75 Respiratory Rate 23 28 H 26 H Blood Pressure 153/80 H 134/74 Pulse Oximetry 95 98 98 08/23/18 12:00 08/23/18 12:39 08/23/18 13:00 Temperature 98.5 F Pulse Rate 79 77 73 Respiratory Rate 34 H 28 H 25 H Blood Pressure 134/74 148/85 H Pulse Oximetry 98 98 98 Intake & Output 08/22/18 08/23/18 08/23/18 18:59 06:59 18:59 Intake Total 980 / 980 440 / 440 100 / 100 Output Total 805 / 805 1250 / 1250 Balance 175 / 175 -810 / -810 100 / 100 Weight 77.1 kg Intake: IV 500 / 500 200 / 200 100 / 100 NS Inj 1,000 ML @ 42 mls/hr IV. 400 / 400 CONT .[id number] [facility] Rx#:[id number] Zerbaxa Inj 375 MG In NS Inj 100 / 100 200 / 200 100 / 100 100 ML @ 100 mls/hr IV.SIG Q8H [facility] Rx#:[id number] Oral 480 / 480 240 / 240 Output: Urine Amount (Stoma) 120 / 120 100 / 100 Pre-Hospital: Continent 120 / 120 100 / 100 Urostomy Right Wound Drainage 685 / 685 1150 / 1150 Left Lower Lateral Abdomen 600 / 600 950 / 950 Pigtail Right Lower Lateral Abdomen 85 / 85 200 / 200 Pigtail Other: Date of Last Bowel Movement 08/22/18 08/23/18 08/23/18 # Bowel Movements 1 1 # Incontinent Bowel Movements 1 Result Diagrams: 08/23/18 06:18 08/23/18 06:18 Medications and IVs: Active Medications Generic Name Dose Route Start Last Admin Trade Name Freq PRN Reason Stop Dose Admin Acetaminophen 650 mg 08/17/18 04:31 Tylenol PO Q4H PRN Temp > 100.4 Al Hydroxide/Mg Hydroxide 30 ml 08/17/18 04:31 Milk Of Magnesia Liq PO Q12H PRN Mild Constipation Albuterol 1 ampul 08/17/18 08:39 08/21/18 20:16 Duoneb Neb (Prn) NEB 1 ampul Q2HR NEB PRN Administration WHEEZING Bisacodyl 10 mg 08/17/18 04:31 Dulcolax Supp RECTAL DAILY PRN SEVERE CONSITIPATION Digoxin 250 mcg 08/18/18 11:00 08/20/18 09:40 Lanoxin PO 250 mcg DAILY [facility] Administration Famotidine 10 mg 08/19/18 21:00 08/23/18 08:00 Pepcid Pf Inj IV.PUSH 10 mg Q12HR [facility] Administration Fludrocortisone Acetate 0.1 mg 08/17/18 09:00 08/23/18 08:57 Florinef PO 0.1 mg DAILY [facility] Administration Ceftolozane/Tazobactam 375 mg/ 100 mls @ 100 mls/hr 08/20/18 17:00 08/23/18 10:02 Sodium Chloride IV.SIG Infused Q8H [facility] Infusion Labetalol HCl 10 mg 08/20/18 18:18 08/22/18 18:48 Trandate Inj IV.PUSH 10 mg Q2H PRN Administration sbp> 140 or dbp> 90 Lactulose 30 ml 08/17/18 04:31 Lactulose Liq PO DAILY PRN SEVERE CONSITIPATION Levetiracetam 500 mg 08/17/18 09:00 08/23/18 08:00 Keppra PO 500 mg BID [facility] Administration Midodrine 5 mg 08/17/18 12:00 08/23/18 11:01 Proamatine PO Not Given TID@0700,1200,1700 [facility] Multivitamins/Folic Acid/Vitamin C 1 tab 08/18/18 10:00 08/23/18 08:00 Flintstones CHEW 1 tab DAILY [facility] Administration Ondansetron HCl 4 mg 08/17/18 04:31 Zofran Inj IV.PUSH Q6H PRN NAUSEA OR VOMITING Pilocarpine HCl 5 mg 08/17/18 21:00 08/23/18 08:00 Salagen PO 5 mg BID [facility] Administration Senna/Docusate Sodium 1 tab 08/17/18 09:00 08/23/18 08:00 Maggi-Colace PO 1 tab BID [facility] Administration Sennosides 17.2 mg 08/17/18 04:31 Senokot PO Q12H PRN Moderate Constipation Sodium Chloride 2 ml 08/17/18 08:39 Ns Flush IV.FLUSH PRN PRN FLUSH AFTER USING IV ACCESS Sodium Chloride 2 ml 08/17/18 09:00 08/23/18 08:01 Ns Flush IV.FLUSH 2 ml BID [facility] Administration Assessment and Plan - Plan 78y.o M with history as per HPI No additional recommendations - Continue treatment of his sepsis as per ICU care team - Treat infection according to C&S - Once his infection clears up he will need 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
--- NOTE | 2018-08-23 14:49 | P.PNIM ---
Subjective Interval history: Nursing denies any acute changes overnight. Patient himself says he is doing okay. No flank pain. Physical Exam Vital signs: Vital Signs 08/22/18 15:00 08/22/18 16:00 08/22/18 17:00 Temperature 98.4 F Pulse Rate 74 64 70 Respiratory Rate 29 H 28 H 27 H Blood Pressure 123/70 126/65 Pulse Oximetry 96 99 96 08/22/18 18:00 08/22/18 18:39 08/22/18 19:00 Temperature Pulse Rate 66 77 70 Respiratory Rate 28 H 32 H 31 H Blood Pressure 174/79 H Pulse Oximetry 98 94 L 86 L 08/22/18 19:15 08/22/18 19:39 08/22/18 20:00 Temperature 98.1 F Pulse Rate 67 65 66 Respiratory Rate 37 H 28 H 27 H Blood Pressure 139/78 145/77 H Pulse Oximetry 96 94 L 97 08/22/18 20:39 08/22/18 21:00 08/22/18 21:39 Temperature Pulse Rate 70 65 72 Respiratory Rate 29 H 28 H 28 H Blood Pressure 143/87 H 162/77 H Pulse Oximetry 99 99 98 08/22/18 22:00 08/22/18 22:39 08/22/18 23:00 Temperature Pulse Rate 82 72 83 Respiratory Rate 47 H 28 H 30 H Blood Pressure 155/90 H Pulse Oximetry 82 L 94 L 95 08/22/18 23:39 08/23/18 00:00 08/23/18 00:39 Temperature 98.2 F Pulse Rate 82 78 83 Respiratory Rate 31 H 25 H 26 H Blood Pressure 142/85 H 151/73 H Pulse Oximetry 94 L 97 95 08/23/18 01:00 08/23/18 01:39 08/23/18 02:00 Temperature Pulse Rate 73 78 78 Respiratory Rate 28 H 30 H 28 H Blood Pressure 153/74 H Pulse Oximetry 97 96 96 08/23/18 02:39 08/23/18 03:00 08/23/18 03:39 Temperature Pulse Rate 81 76 78 Respiratory Rate 31 H 33 H 29 H Blood Pressure 154/76 H 155/97 H Pulse Oximetry 96 93 L 97 08/23/18 04:00 08/23/18 04:39 08/23/18 05:00 Temperature 98.1 F Pulse Rate 78 77 77 Respiratory Rate 26 H 26 H 28 H Blood Pressure 170/80 H 170/80 H Pulse Oximetry 96 97 96 08/23/18 05:39 08/23/18 06:00 08/23/18 06:39 Temperature Pulse Rate 75 80 71 Respiratory Rate 25 H 40 H 29 H Blood Pressure 160/84 H 159/78 H Pulse Oximetry 95 87 L 98 08/23/18 07:00 08/23/18 07:39 08/23/18 08:00 Temperature Pulse Rate 74 75 73 Respiratory Rate 29 H 28 H 33 H Blood Pressure 152/88 H Pulse Oximetry 88 L 98 98 08/23/18 08:15 08/23/18 08:17 08/23/18 08:39 Temperature 98.8 F Pulse Rate 77 75 77 Respiratory Rate 31 H 28 H 29 H Blood Pressure 160/104 H 185/93 H 168/84 H Pulse Oximetry 95 81 L 95 08/23/18 09:00 08/23/18 09:39 08/23/18 10:00 Temperature 98.8 F Pulse Rate 81 78 82 Respiratory Rate 30 H 31 H 30 H Blood Pressure 157/109 H Pulse Oximetry 91 L 89 L 87 L 08/23/18 10:39 08/23/18 11:00 08/23/18 11:39 Temperature Pulse Rate 68 78 75 Respiratory Rate 23 28 H 26 H Blood Pressure 153/80 H 134/74 Pulse Oximetry 95 98 98 08/23/18 12:00 08/23/18 12:39 08/23/18 13:00 Temperature 98.5 F Pulse Rate 79 77 73 Respiratory Rate 34 H 28 H 25 H Blood Pressure 134/74 148/85 H Pulse Oximetry 98 98 98 08/23/18 13:39 08/23/18 13:43 08/23/18 14:00 Temperature Pulse Rate 74 82 75 Respiratory Rate 28 H 36 H 31 H Blood Pressure 125/107 H 140/88 140/88 Pulse Oximetry 98 96 94 L Intake & Output 08/22/18 08/23/18 08/23/18 18:59 06:59 18:59 Intake Total 980 / 980 440 / 440 100 / 100 Output Total 805 / 805 1250 / 1250 Balance 175 / 175 -810 / -810 100 / 100 Weight 77.1 kg Intake: IV 500 / 500 200 / 200 100 / 100 NS Inj 1,000 ML @ 42 mls/hr IV. 400 / 400 CONT .[id number] [facility] Rx#:[id number] Zerbaxa Inj 375 MG In NS Inj 100 / 100 200 / 200 100 / 100 100 ML @ 100 mls/hr IV.SIG Q8H [facility] Rx#:[id number] Oral 480 / 480 240 / 240 Output: Urine Amount (Stoma) 120 / 120 100 / 100 Pre-Hospital: Continent 120 / 120 100 / 100 Urostomy Right Wound Drainage 685 / 685 1150 / 1150 Left Lower Lateral Abdomen 600 / 600 950 / 950 Pigtail Right Lower Lateral Abdomen 85 / 85 200 / 200 Pigtail Other: Date of Last Bowel Movement 08/22/18 08/23/18 08/23/18 # Bowel Movements 1 1 # Incontinent Bowel Movements 1 Narrative: Bilateral nephrostomy tubes in place Patient resting in bed, no acute distress Clear lungs bilaterally, unlabored breathing Heart sounds regular rate and rhythm Results - Labs CBC & Chem 7: 08/23/18 06:18 08/23/18 06:18 Laboratory Results - last 24 hr 08/22/18 08/23/18 08/23/18 15:08 06:18 06:18 Hgb 7.6 L Hct 22.5 L Sodium 145 147 H Potassium 3.5 3.5 Chloride 115 H 116 H Carbon Dioxide 20.0 L 19.9 L Anion Gap 10 11 BUN 42 H 45 H Creatinine 2.64 H 2.61 H Estimated GFR 24 L 24 L Random Glucose 109 H 88 Calcium 7.9 L 8.0 L Microbiology 08/17/18 03:00 Blood - Peripheral Aerobic Blood Culture - Final No growth in 5 days 08/17/18 03:00 Blood - Peripheral Anaerobic Blood Culture - Final No growth in 5 days 08/17/18 03:15 Blood - Peripheral Aerobic Blood Culture - Final No growth in 5 days 08/17/18 03:15 Blood - Peripheral Anaerobic Blood Culture - Final No growth in 5 days Assessment and Plan - Plan 78yM presenting with recurrent urosepsis/ septic shock complicated by obstructive uropathy/ urostomy resulting in acute on chronic renal failure with hyperkalemia. CT upon admission showed dilation of left renal collecting system and ureter with double-J stent question him collecting system into diverting bowel loop in the right lower quadrant which has developed since his last CT scan in June. Admitted to the ICU started on aggressive IV fluids and pressors. Ultimately had obstructive uropathy in the left renal collecting system and ureter, had bilateral nephrostomy tubes placed on 08/17 with improvement. Developed a right-sided hematoma in the field of the right nephrostomy tube likely to partial tube retraction. Growing out MDR pseudomonas and VRE UTI, ID started pt on Teflaro. Acute obstructive uropathy History of RLQ urostomy with double J stent acute on chronic kidney disease relieved with bilateral nephrostomy tubes in placed on 08/18 Teflaro per ID ID following, will recheck urine culture per ID -continue gentle IVFs * Urology recommending internalization of PCNs once pt is more stable from infx standpoint Intraperitoneal hematoma Anemia requiring transfusions * adjacent to right nephrostomy tube, likely has tamponaded off, stable H&H * hold anticoagulation at this time, tight blood pressure control to keep < 140/ 90 History of seizure disorder * Continue home keppra * Delirium precautions atrial fibrillation Chronic orthostatic hypotension continue DVT prophylaxis * Continue home doses of midodrine/ fludrocortisone * Stable AAA seen on CT abd/pelvis measuring 3.5 cm, outpatient follow up * COPD * Incentive spirometer * Scheduled/ PRN nebs chronic kidney injury- -Appears to have reached baseline levels History of parotidectomy * Cardiac diet * Continue home dose of pilocarpine to aid in salivation as patient has had a parotidectomy -SCDs -PPI Discharge Planning: DC when cleared w/ ID
[2018-08-23] MEDS: Labetalol HCl Inj 100 MG/20 ML Vial IV.PUSH PRN (23:57)
[2018-08-24] MEDS: Senna/Docusate Sodium 8.6/50 MG Tablet PO SCH ×2 (08:39→20:29)
[2018-08-24] MEDS: levETIRAcetam 500 MG Tablet PO SCH ×2 (08:39→20:29)
[2018-08-24] MEDS: Famotidine PF Inj 20 MG/2 ML Vial IV.PUSH SCH ×2 (08:39→20:29)
[2018-08-24] MEDS: Pilocarpine HCl 5 MG Tablet PO SCH ×2 (08:39→20:28)
[2018-08-24] MEDS: Multivit/Folic Acid/Minerals Chewable Tablets CHEW SCH (08:39)
[2018-08-24] MEDS: SODIUM CHLOR 0.9% IV.SIG SCH ×4 (10:18→16:55)
[2018-08-24] MEDS: TAZOBACTAM IV.SIG SCH ×4 (10:18→16:55)
[2018-08-24] MEDS: CEFTOLOZANE IV.SIG SCH ×4 (10:18→16:55)
--- NOTE | 2018-08-24 12:36 | P.PNID ---
Subjective Remarks: Patient feels okay. No complaints. No fever. This is a 78-year-old white male who was admitted to the hospital after he presented to the emergency department on 08/17/2018. The patient developed fever. He is a resident of a half-way. He was also noted to have hypotension and tachycardia. Reportedly, blood pressure was down to 60/40. He has a history of urostomy. His temperature was 98.1 in the emergency department. The patient had elevated white cell count of 26.5. The patient was evaluated and eventually underwent placement of bilateral nephrostomy tubes. Urine culture has growth of Enterococcus species VRE and Pseudomonas aeruginosa. The Pseudomonas is extremely resistant. Past Medical History: PAST MEDICAL HISTORY: Atrial fibrillation, chronic kidney disease, stage IV, COPD, hypertension, history of Clostridium difficile, hyperlipidemia, kidney stones, history of intertrochanteric fracture of the left hip, history of open left femoral fracture, prostate cancer parotid mass, subdural hematoma. Allergies/Adverse Reactions: Allergies crab Allergy (Intermediate, Verified 08/30/18 07:57) Rash Blue Shell crab causes severe rash all over face and neck. Needs PCN to help clear it up. Patient CAN eat Shrimp and clams, scallops, oysters without problems. Objective Vital Signs 08/23/18 12:39 08/23/18 13:00 08/23/18 13:39 Temperature Pulse Rate 77 73 74 Respiratory Rate 28 H 25 H 28 H Blood Pressure 148/85 H 125/107 H Pulse Oximetry 98 98 98 08/23/18 13:43 08/23/18 14:00 08/23/18 14:39 Temperature Pulse Rate 82 75 78 Respiratory Rate 36 H 31 H 29 H Blood Pressure 140/88 140/88 157/94 H Pulse Oximetry 96 94 L 98 08/23/18 14:59 08/23/18 15:00 08/23/18 15:39 Temperature Pulse Rate 83 74 76 Respiratory Rate 29 H 29 H 29 H Blood Pressure 158/88 H 156/80 H Pulse Oximetry 95 96 99 08/23/18 16:00 08/23/18 16:39 08/23/18 17:00 Temperature Pulse Rate 83 78 75 Respiratory Rate 26 H 31 H 27 H Blood Pressure 153/93 H Pulse Oximetry 97 98 97 08/23/18 17:39 08/23/18 18:00 08/23/18 18:39 Temperature Pulse Rate 75 76 84 Respiratory Rate 30 H 31 H 28 H Blood Pressure 154/89 H 147/70 H Pulse Oximetry 98 89 L 98 08/23/18 19:00 08/23/18 19:39 08/23/18 20:00 Temperature Pulse Rate 78 80 76 Respiratory Rate 33 H 31 H 30 H Blood Pressure 144/84 H Pulse Oximetry 97 94 L 97 08/23/18 20:39 08/23/18 21:00 08/23/18 21:39 Temperature 98 F Pulse Rate 73 76 79 Respiratory Rate 30 H 32 H 30 H Blood Pressure 153/79 H 156/86 H Pulse Oximetry 92 L 97 98 08/23/18 22:00 08/23/18 22:39 08/23/18 23:00 Temperature Pulse Rate 77 84 86 Respiratory Rate 30 H 29 H 27 H Blood Pressure 162/79 H Pulse Oximetry 98 97 97 08/23/18 23:39 08/24/18 00:00 08/24/18 00:39 Temperature 98.1 F Pulse Rate 82 75 67 Respiratory Rate 32 H 31 H 30 H Blood Pressure 143/71 H 135/74 Pulse Oximetry 97 97 97 08/24/18 00:51 08/24/18 01:00 08/24/18 01:39 Temperature Pulse Rate 72 69 74 Respiratory Rate 17 30 H 31 H Blood Pressure 115/72 Pulse Oximetry 98 94 L 08/24/18 02:00 08/24/18 02:39 08/24/18 03:00 Temperature Pulse Rate 69 71 72 Respiratory Rate 28 H 24 27 H Blood Pressure 139/81 Pulse Oximetry 96 96 96 08/24/18 03:39 08/24/18 04:00 08/24/18 04:39 Temperature Pulse Rate 77 77 70 Respiratory Rate 25 H 31 H 31 H Blood Pressure 136/68 129/71 Pulse Oximetry 96 92 L 95 08/24/18 05:00 08/24/18 05:39 08/24/18 06:00 Temperature Pulse Rate 73 73 70 Respiratory Rate 27 H 30 H 28 H Blood Pressure 127/65 Pulse Oximetry 96 95 96 08/24/18 06:27 08/24/18 06:39 08/24/18 07:00 Temperature 99.1 F Pulse Rate 77 68 Respiratory Rate 30 H 30 H Blood Pressure 152/70 H Pulse Oximetry 97 97 08/24/18 07:39 08/24/18 08:00 08/24/18 08:39 Temperature 98.7 F Pulse Rate 68 89 76 Respiratory Rate 32 H 29 H 31 H Blood Pressure 137/85 142/72 H Pulse Oximetry 96 97 98 08/24/18 09:00 08/24/18 09:39 08/24/18 10:00 Temperature Pulse Rate 74 77 76 Respiratory Rate 29 H 32 H 28 H Blood Pressure 143/91 H Pulse Oximetry 97 90 L 97 Intake & Output 08/23/18 08/24/18 08/24/18 18:59 06:59 18:59 Intake Total 920 / 920 600 / 600 100 / 100 Output Total 1725 / 1725 975 / 975 Balance -805 / -805 -375 / -375 100 / 100 Weight 73.7 kg Intake: IV 200 / 200 100 / 100 100 / 100 Zerbaxa Inj 375 MG In NS Inj 200 / 200 100 / 100 100 / 100 100 ML @ 100 mls/hr IV.SIG Q8H [facility] Rx#:[id number] Oral 720 / 720 500 / 500 Output: Urine Amount (Stoma) 100 / 100 975 / 975 Nephrostomy Tube Left 675 / 675 Nephrostomy Tube Right 125 / 125 Pre-Hospital: Continent 100 / 100 175 / 175 Urostomy Right Wound Drainage 1625 / 1625 Left Lower Lateral Abdomen 1275 / 1275 Pigtail Right Lower Lateral Abdomen 350 / 350 Pigtail Other: Date of Last Bowel Movement 08/23/18 08/24/18 08/24/18 # Bowel Movements 1 1 # Incontinent Bowel Movements 1 08/17/18 03:00 Blood - Peripheral Aerobic Blood Culture - Final No growth in 5 days 08/17/18 03:00 Blood - Peripheral Anaerobic Blood Culture - Final No growth in 5 days 08/17/18 03:15 Blood - Peripheral Aerobic Blood Culture - Final No growth in 5 days 08/17/18 03:15 Blood - Peripheral Anaerobic Blood Culture - Final No growth in 5 days 08/19/18 14:10 Random Urine Urine Culture - Final Pseudomonas aeruginosa Multidrug Resistant Shawanda tropicalis 08/19/18 14:10 Random Urine Urine Culture - Final Pseudomonas aeruginosa Multidrug Resistant Lab - Hematology Results 08/23/18 06:18 Hgb 7.6 L Hct 22.5 L Lab - Chemistry Results 08/22/18 08/23/18 15:08 06:18 Sodium 145 147 H Potassium 3.5 3.5 Chloride 115 H 116 H Carbon Dioxide 20.0 L 19.9 L Anion Gap 10 11 BUN 42 H 45 H Creatinine 2.64 H 2.61 H Estimated GFR 24 L 24 L Random Glucose 109 H 88 Calcium 7.9 L 8.0 L Imaging: ITS Impressions Nephrostomy 08/17/18 00:00 CONCLUSION: 1. Uncomplicated nephrostomy tube placement as above. Chest X-Ray 08/17/18 02:07 CONCLUSION: The lungs are clear. Abdomen/Pelvis CT 08/20/18 17:08 CONCLUSION: 1. Interval placement of bilateral percutaneous cystostomy catheters. The right nephrostomy catheter has been retracted from the renal pelvis and may potentially be in a calyx but remains in the kidney. There is an associated moderate to large sized perinephric hematoma extending inferiorly to the region of the pelvis. 2. Redemonstration of bilateral renal calculi unchanged from recent prior CT exam. 3. Additional stable ancillary findings, as above. Findings were personally discussed with hospitalist. Patient is currently hemodynamically stable. Will monitor with serial H&H and consider further intervention as clinically necessary. Physical Exam: PHYSICAL EXAMINATION: GENERAL: Awake and alert. HEENT: Head is atraumatic. Extraocular movements grossly intact. Pupils reactive to light. No icterus. Oropharynx: Moist mucosa. NECK: Supple without adenopathy or swelling. LUNGS: Clear breath sounds. HEART: Irregular S1, S2. No audible murmurs. ABDOMEN: Bowel sounds present. Soft, no tenderness. nephrostomy urine is clear. EXTREMITIES: No clubbing, cyanosis or edema. SKIN: No rash. NEUROLOGIC: No gross focal findings. PSYCHIATRIC: Calm and cooperative. Assessment and Plan - Plan IMPRESSION: 1. Urinary tract infection due to Enterococcus (vancomycin-resistant Enterococcus) and Pseudomonas. Repeat urine culture has multidrug-resistant Pseudomonas. 2. Status post bilateral nephrostomy. 3. Chronic kidney disease. 4. Sepsis/septic shock on admission. 5. History of recurrent Clostridium difficile infection. RECOMMENDATIONS: 1. Continue Ceftolozane/tazobactam for the resistant Pseudomonas. 2. Culture from both left and right nephrostomy tubes today. Because of the resistant nature of the bacteria recovered from the urine cultures he needs to stay on antibiotics until we can demonstrate that the urine is without infection from from the same organism. If the patient is to be discharged to half-way before the results of the urine culture becomes available he will need to go on the current IV antibiotic. It may be 48 hours before we get results of the urine culture.
--- NOTE | 2018-08-24 16:34 | P.PNIM ---
Subjective Interval history: The patient was resting comfortably in bed. He was wondering when he could go back to [facility]. He said that he does not eat that well except for breakfast, which is his favorite meal of the day. He denies any pain or shortness of breath. Physical Exam Vital signs: Vital Signs 08/23/18 16:39 08/23/18 17:00 08/23/18 17:39 Temperature Pulse Rate 78 75 75 Respiratory Rate 31 H 27 H 30 H Blood Pressure 153/93 H 154/89 H Pulse Oximetry 98 97 98 08/23/18 18:00 08/23/18 18:39 08/23/18 19:00 Temperature Pulse Rate 76 84 78 Respiratory Rate 31 H 28 H 33 H Blood Pressure 147/70 H Pulse Oximetry 89 L 98 97 08/23/18 19:39 08/23/18 20:00 08/23/18 20:39 Temperature 98 F Pulse Rate 80 76 73 Respiratory Rate 31 H 30 H 30 H Blood Pressure 144/84 H 153/79 H Pulse Oximetry 94 L 97 92 L 08/23/18 21:00 08/23/18 21:39 08/23/18 22:00 Temperature Pulse Rate 76 79 77 Respiratory Rate 32 H 30 H 30 H Blood Pressure 156/86 H Pulse Oximetry 97 98 98 08/23/18 22:39 08/23/18 23:00 08/23/18 23:39 Temperature Pulse Rate 84 86 82 Respiratory Rate 29 H 27 H 32 H Blood Pressure 162/79 H 143/71 H Pulse Oximetry 97 97 97 08/24/18 00:00 08/24/18 00:39 08/24/18 00:51 Temperature 98.1 F Pulse Rate 75 67 72 Respiratory Rate 31 H 30 H 17 Blood Pressure 135/74 Pulse Oximetry 97 97 08/24/18 01:00 08/24/18 01:39 08/24/18 02:00 Temperature Pulse Rate 69 74 69 Respiratory Rate 30 H 31 H 28 H Blood Pressure 115/72 Pulse Oximetry 98 94 L 96 08/24/18 02:39 08/24/18 03:00 08/24/18 03:39 Temperature Pulse Rate 71 72 77 Respiratory Rate 24 27 H 25 H Blood Pressure 139/81 136/68 Pulse Oximetry 96 96 96 08/24/18 04:00 08/24/18 04:39 08/24/18 05:00 Temperature Pulse Rate 77 70 73 Respiratory Rate 31 H 31 H 27 H Blood Pressure 129/71 Pulse Oximetry 92 L 95 96 08/24/18 05:39 08/24/18 06:00 08/24/18 06:27 Temperature 99.1 F Pulse Rate 73 70 Respiratory Rate 30 H 28 H Blood Pressure 127/65 Pulse Oximetry 95 96 08/24/18 06:39 08/24/18 07:00 08/24/18 07:39 Temperature Pulse Rate 77 68 68 Respiratory Rate 30 H 30 H 32 H Blood Pressure 152/70 H 137/85 Pulse Oximetry 97 97 96 08/24/18 08:00 08/24/18 08:39 08/24/18 09:00 Temperature 98.7 F Pulse Rate 89 76 74 Respiratory Rate 29 H 31 H 29 H Blood Pressure 142/72 H Pulse Oximetry 97 98 97 08/24/18 09:39 08/24/18 10:00 08/24/18 10:39 Temperature Pulse Rate 77 76 76 Respiratory Rate 32 H 28 H 26 H Blood Pressure 143/91 H 146/67 H Pulse Oximetry 90 L 97 97 08/24/18 11:00 08/24/18 11:39 08/24/18 12:00 Temperature 98.5 F Pulse Rate 76 78 85 Respiratory Rate 27 H 27 H 28 H Blood Pressure 131/61 Pulse Oximetry 98 98 98 08/24/18 12:39 08/24/18 12:40 08/24/18 13:00 Temperature Pulse Rate 73 67 Respiratory Rate 29 H 29 H Blood Pressure 126/71 Pulse Oximetry 98 97 98 08/24/18 13:39 08/24/18 14:00 08/24/18 14:39 Temperature Pulse Rate 80 73 72 Respiratory Rate 39 H 29 H 30 H Blood Pressure 132/77 134/82 Pulse Oximetry 96 97 98 08/24/18 15:00 08/24/18 15:39 Temperature Pulse Rate 70 74 Respiratory Rate 29 H 28 H Blood Pressure 143/68 H Pulse Oximetry 98 100 Intake & Output 08/23/18 08/24/18 08/24/18 18:59 06:59 18:59 Intake Total 920 / 920 600 / 600 100 / 100 Output Total 1725 / 1725 975 / 975 Balance -805 / -805 -375 / -375 100 / 100 Weight 73.7 kg Intake: IV 200 / 200 100 / 100 100 / 100 Zerbaxa Inj 375 MG In NS Inj 200 / 200 100 / 100 100 / 100 100 ML @ 100 mls/hr IV.SIG Q8H [facility] Rx#:[id number] Oral 720 / 720 500 / 500 Output: Urine Amount (Stoma) 100 / 100 975 / 975 Nephrostomy Tube Left 675 / 675 Nephrostomy Tube Right 125 / 125 Pre-Hospital: Continent 100 / 100 175 / 175 Urostomy Right Wound Drainage 1625 / 1625 Left Lower Lateral Abdomen 1275 / 1275 Pigtail Right Lower Lateral Abdomen 350 / 350 Pigtail Other: Date of Last Bowel Movement 08/23/18 08/24/18 08/24/18 # Bowel Movements 1 1 # Incontinent Bowel Movements 1 Narrative: General: Cachectic, no apparent distress. MSK: Bilateral nephrostomy tubes in place. Lungs: Clear lungs bilaterally, unlabored breathing. Heart: regular rate and rhythm. Abdomen: NT, ND. Extremities: No edema. Neuro: No gross deficits. Results - Labs CBC & Chem 7: 08/23/18 06:18 08/23/18 06:18 Assessment and Plan - Plan 78yM presenting with recurrent urosepsis/ septic shock complicated by obstructive uropathy/ urostomy resulting in acute on chronic renal failure with hyperkalemia. Ultimately had obstructive uropathy in the left renal collecting system and ureter, had bilateral nephrostomy tubes placed on 08/17 with improvement. Developed a right-sided hematoma in the field of the right nephrostomy tube likely due to partial tube retraction. Growing out MDR pseudomonas and VRE UTI, ID started pt on Teflaro. Acute obstructive uropathy/history of RLQ urostomy with double J stent/acute on chronic kidney disease relieved with bilateral nephrostomy tubes in placed on 08/18. Teflaro per ID. -continue gentle IVFs. -Urology recommending internalization of PCNs once pt is more stable from infection standpoint. Intraperitoneal hematoma Anemia requiring transfusions adjacent to right nephrostomy tube, likely has tamponaded off, stable H&H hold anticoagulation at this time, tight blood pressure control to keep < 140 /90 -follow CBC. History of seizure disorder Continue home keppra Delirium precautions atrial fibrillation Chronic orthostatic hypotension continue DVT prophylaxis Continue home doses of midodrine/ fludrocortisone Stable AAA seen on CT abd/pelvis measuring 3.5 cm, outpatient follow up COPD Incentive spirometer Scheduled/ PRN nebs chronic kidney injury- -Appears to have reached baseline levels History of parotidectomy Cardiac diet Continue home dose of pilocarpine to aid in salivation as patient has had a parotidectomy Moderate malnutrition Pt has not been eating much. -regular diet with Ensure. -SCDs -PPI
[2018-08-25] MEDS: TAZOBACTAM IV.SIG SCH ×3 (00:08→17:21)
[2018-08-25] MEDS: SODIUM CHLOR 0.9% IV.SIG SCH ×3 (00:08→17:21)
[2018-08-25] MEDS: CEFTOLOZANE IV.SIG SCH ×3 (00:08→17:21)
[2018-08-25] MEDS: Labetalol HCl Inj 100 MG/20 ML Vial IV.PUSH PRN (01:53)
[2018-08-25 06:03] LABS: Baso % (Auto) 0.5 % (0.0-2.0); Eos # (Auto) 0.4 th/mm3 (0.0-0.4); Eos % (Auto) 4.6 % (0.0-4.0); Hemoglobin 8.1 gm/dL (13.0-17.0); Lymph # (Auto) 1.1 th/mm3 (1.0-4.8); Lymph % (Auto) 12.6 % (9.0-44.0); Mean Corpuscular HGB Conc 35.1 % (32.0-36.0); Mean Corpuscular Hemoglobin 31.2 pg (27.0-34.0); Mean Corpuscular Volume 88.8 fL (80.0-100.0); Mean Platelet Volume 7.8 fL (7.0-11.0); Mono % (Auto) 11.6 % (0.0-8.0); Neut # (Auto) 6.1 th/mm3 (1.8-7.7); Neut % (Auto) 70.7 % (16.0-70.0); Platelet Count 265 th/mm3 (150-450); Red Blood Count 2.59 mil/mm3 (4.50-5.90); Red Cell Distribution Width 17.2 % (11.6-17.2); White Blood Count 8.6 th/mm3 (4.0-11.0)
[2018-08-25 06:27] LABS: Albumin 2.1 g/dL (3.4-5.0); Calcium 7.8 mg/dL (8.5-10.1); Carbon Dioxide 21.7 meq/L (21.0-32.0); Magnesium 1.6 mg/dL (1.5-2.5); Phosphorus 2.7 mg/dL (2.5-4.9); Potassium 3.1 meq/L (3.5-5.1)
[2018-08-25 06:29] LABS: Total Protein 6.1 g/dL (6.4-8.2)
[2018-08-25] MEDS: Senna/Docusate Sodium 8.6/50 MG Tablet PO SCH ×2 (08:26→21:04)
[2018-08-25] MEDS: Famotidine PF Inj 20 MG/2 ML Vial IV.PUSH SCH ×2 (08:26→21:04)
[2018-08-25] MEDS: Pilocarpine HCl 5 MG Tablet PO SCH ×2 (08:26→21:04)
[2018-08-25] MEDS: Multivit/Folic Acid/Minerals Chewable Tablets CHEW SCH (08:26)
[2018-08-25] MEDS: levETIRAcetam 500 MG Tablet PO SCH ×2 (08:36→21:04)
[2018-08-25] MEDS ORDERED: Potassium Chloride 25 MEQ Effervescent Tablet PO ONE (16:00)
--- NOTE | 2018-08-25 16:01 | P.PNIM ---
Subjective Interval history: The patient said that he was shaved today. He says he has a better razor at [facility]. He is hoping to go there soon. He is not eating that much except for breakfast. He denies any pain. He is sleeping well. Discussed with nursing at the bedside. Physical Exam Vital signs: Vital Signs 08/24/18 16:00 08/24/18 16:39 08/24/18 17:00 Temperature Pulse Rate 70 79 74 Respiratory Rate 29 H 27 H 33 H Blood Pressure 137/75 Pulse Oximetry 99 99 98 08/24/18 17:39 08/24/18 18:00 08/24/18 18:39 Temperature 98.3 F 98.3 F Pulse Rate 75 70 73 Respiratory Rate 29 H 31 H 32 H Blood Pressure 149/90 H 149/50 H 147/81 H Pulse Oximetry 100 97 93 L 08/24/18 19:00 08/24/18 19:39 08/24/18 20:00 Temperature 98.1 F Pulse Rate 73 71 74 Respiratory Rate 30 H 28 H 33 H Blood Pressure 158/88 H Pulse Oximetry 99 98 94 L 08/24/18 20:04 08/24/18 20:39 08/24/18 21:00 Temperature Pulse Rate 72 79 Respiratory Rate 31 H 31 H Blood Pressure 139/83 Pulse Oximetry 98 97 99 08/24/18 21:39 08/24/18 22:00 08/24/18 22:39 Temperature Pulse Rate 74 76 84 Respiratory Rate 15 29 H 31 H Blood Pressure 130/74 143/73 H Pulse Oximetry 97 97 98 08/24/18 23:00 08/24/18 23:39 08/25/18 00:00 Temperature 97.9 F Pulse Rate 78 74 69 Respiratory Rate 31 H 29 H 28 H Blood Pressure 144/73 H Pulse Oximetry 99 98 99 08/25/18 00:39 08/25/18 01:00 08/25/18 01:39 Temperature Pulse Rate 75 69 75 Respiratory Rate 27 H 28 H 29 H Blood Pressure 140/87 153/75 H Pulse Oximetry 96 98 98 08/25/18 02:00 08/25/18 02:39 08/25/18 03:00 Temperature Pulse Rate 58 L 74 68 Respiratory Rate 28 H 31 H 27 H Blood Pressure 141/74 H Pulse Oximetry 97 96 97 08/25/18 03:39 08/25/18 04:00 08/25/18 04:39 Temperature Pulse Rate 68 71 66 Respiratory Rate 28 H 26 H 30 H Blood Pressure 107/68 136/79 Pulse Oximetry 96 96 87 L 08/25/18 05:00 08/25/18 05:39 08/25/18 06:00 Temperature 97.8 F Pulse Rate 71 68 68 Respiratory Rate 26 H 30 H 28 H Blood Pressure 136/78 Pulse Oximetry 97 97 97 08/25/18 06:39 08/25/18 07:00 08/25/18 07:39 Temperature 98.5 F Pulse Rate 71 71 71 Respiratory Rate 28 H 28 H 23 Blood Pressure 119/81 126/64 Pulse Oximetry 98 97 96 08/25/18 08:00 08/25/18 08:39 08/25/18 09:00 Temperature Pulse Rate 71 77 70 Respiratory Rate 27 H 27 H 29 H Blood Pressure 152/69 H Pulse Oximetry 96 96 98 08/25/18 09:39 08/25/18 10:00 08/25/18 11:00 Temperature Pulse Rate 77 73 68 Respiratory Rate 34 H 31 H 27 H Blood Pressure 131/67 Pulse Oximetry 90 L 92 L 08/25/18 12:00 08/25/18 12:43 08/25/18 13:00 Temperature 98.0 F Pulse Rate 74 71 68 Respiratory Rate 28 H 29 H 30 H Blood Pressure 119/67 119/72 Pulse Oximetry 100 98 98 08/25/18 14:00 08/25/18 15:00 Temperature Pulse Rate 76 69 Respiratory Rate 32 H 30 H Blood Pressure Pulse Oximetry 96 100 Intake & Output 08/24/18 08/25/18 08/25/18 18:59 06:59 18:59 Intake Total 1120 / 1120 450 / 450 100 / 100 Output Total 875 / 875 1200 / 1200 Balance 245 / 245 -750 / -750 100 / 100 Weight 73.8 kg Intake: IV 200 / 200 100 / 100 100 / 100 Zerbaxa Inj 375 MG In NS Inj 200 / 200 100 / 100 100 / 100 100 ML @ 100 mls/hr IV.SIG Q8H [facility] Rx#:[id number] Oral 920 / 920 350 / 350 Output: Urine Amount (Stoma) 875 / 875 1200 / 1200 Nephrostomy Tube Left 625 / 625 850 / 850 Nephrostomy Tube Right 100 / 100 50 / 50 Pre-Hospital: Continent 150 / 150 300 / 300 Urostomy Right Other: Date of Last Bowel Movement 08/24/18 08/25/18 08/24/18 # Bowel Movements 1 Narrative: General: Cachectic, no apparent distress. MSK: Bilateral nephrostomy tubes in place. Lungs: Clear lungs bilaterally, unlabored breathing. Heart: regular rate and rhythm. Abdomen: NT, ND. Extremities: No edema. Neuro: No gross deficits. Moves upper and lower extremities spontaneously. Results - Labs CBC & Chem 7: 08/25/18 05:43 08/25/18 05:43 Laboratory Results - last 24 hr 08/25/18 08/25/18 05:43 05:43 WBC 8.6 RBC 2.59 L Hgb 8.1 L Hct 23.0 L MCV 88.8 MCH 31.2 MCHC 35.1 RDW 17.2 Plt Count 265 D MPV 7.8 Neut % (Auto) 70.7 H Lymph % (Auto) 12.6 [place] % (Auto) 11.6 H Eos % (Auto) 4.6 H Baso % (Auto) 0.5 Neut # (Auto) 6.1 Lymph # (Auto) 1.1 [place] # (Auto) 1.0 H Eos # (Auto) 0.4 Baso # (Auto) 0.0 WBC Differential . Differential Comment Auto diff final Sodium 145 Potassium 3.1 L Chloride 112 H Carbon Dioxide 21.7 Anion Gap 11 BUN 37 H Creatinine 2.23 H Estimated GFR 29 L Random Glucose 97 Calcium 7.8 L Phosphorus 2.7 Magnesium 1.6 Total Bilirubin 0.7 Direct Bilirubin 0.3 H Indirect Bilirubin 0.4 AST 22 ALT 25 Alkaline Phosphatase 92 Total Protein 6.1 L Albumin 2.1 L Microbiology 08/24/18 13:30 Catheterized Urine Urine Culture - Preliminary Yeast species 08/24/18 13:30 Catheterized Urine Urine Culture - Preliminary Yeast species Assessment and Plan - Plan 78yM presenting with recurrent urosepsis/ septic shock complicated by obstructive uropathy/ urostomy resulting in acute on chronic renal failure with hyperkalemia. Ultimately had obstructive uropathy in the left renal collecting system and ureter, had bilateral nephrostomy tubes placed on 08/17 with improvement. Developed a right-sided hematoma in the field of the right nephrostomy tube likely due to partial tube retraction. Growing out MDR pseudomonas and VRE UTI, ID started pt on Teflaro. Acute obstructive uropathy/history of RLQ urostomy with double J stent/acute on chronic kidney disease/UTI with resistant pseudomonas and yeast relieved with bilateral nephrostomy tubes in placed on 08/18. -Urology recommending internalization of PCNs once pt is more stable from infection standpoint. -antibiotics per ID. Follow repeat urine cultures. Intraperitoneal hematoma Anemia requiring transfusions adjacent to right nephrostomy tube, likely has tamponaded off, stable H&H hold anticoagulation at this time, tight blood pressure control to keep < 140 /90 -follow CBC. Stable. History of seizure disorder Continue home keppra Delirium precautions atrial fibrillation Chronic orthostatic hypotension continue DVT prophylaxis Continue home doses of midodrine/ fludrocortisone Stable AAA seen on CT abd/pelvis measuring 3.5 cm, outpatient follow up COPD Incentive spirometer Scheduled/ PRN nebs -oxygen as needed. chronic kidney injury Appears to have reached baseline levels -avoid nephrotoxins. History of parotidectomy Stable. -Continue home dose of pilocarpine to aid in salivation as patient has had a parotidectomy Moderate malnutrition Pt has not been eating much. -regular diet with Ensure. -SCDs -PPI
[2018-08-26] MEDS: CEFTOLOZANE IV.SIG SCH ×3 (01:38→17:10)
[2018-08-26] MEDS: SODIUM CHLOR 0.9% IV.SIG SCH ×3 (01:38→17:10)
[2018-08-26] MEDS: TAZOBACTAM IV.SIG SCH ×3 (01:38→17:10)
[2018-08-26 08:21] LABS: Calcium 7.8 mg/dL (8.5-10.1); Carbon Dioxide 22.2 meq/L (21.0-32.0); Magnesium 1.6 mg/dL (1.5-2.5); Potassium 3.2 meq/L (3.5-5.1)
[2018-08-26] MEDS: Famotidine PF Inj 20 MG/2 ML Vial IV.PUSH SCH ×2 (10:04→20:15)
[2018-08-26] MEDS: levETIRAcetam 500 MG Tablet PO SCH ×2 (10:05→20:15)
[2018-08-26] MEDS: Multivit/Folic Acid/Minerals Chewable Tablets CHEW SCH (10:05)
[2018-08-26] MEDS: Senna/Docusate Sodium 8.6/50 MG Tablet PO SCH ×2 (10:05→20:16)
[2018-08-26] MEDS: Pilocarpine HCl 5 MG Tablet PO SCH ×2 (10:05→20:16)
[2018-08-26] MEDS ORDERED: Potassium Chloride 25 MEQ Effervescent Tablet PO ONE (14:03)
--- NOTE | 2018-08-26 14:28 | P.PNIM ---
Subjective Interval history: The patient was resting comfortably in bed. He was anxious to leave the hospital soon. He had no acute complaints. Physical Exam Vital signs: Last Vital Signs Temp 98.2 F 08/26/18 08:00 Pulse 75 08/26/18 08:00 Resp 18 08/26/18 08:00 BP 145/90 H 08/26/18 08:00 Pulse Ox 95 08/26/18 08:00 Intake & Output 08/24/18 08/25/18 08/26/18 08/27/18 06:59 06:59 06:59 06:59 Intake Total 1520 / 1520 1570 / 1570 300 / 300 100 / 100 Output Total 2700 / 2700 2075 / 2075 1350 / 1350 Balance -1180 / -1180 -505 / -505 -1050 / -1050 100 / 100 Weight 73.7 kg 73.8 kg 73.6 kg Narrative: General: Cachectic, no apparent distress. MSK: Bilateral nephrostomy tubes in place. Lungs: Clear lungs bilaterally, unlabored breathing. Heart: regular rate and rhythm. Abdomen: NT, ND. Extremities: No edema. Neuro: No gross deficits. Moves upper and lower extremities spontaneously. Results Labs CBC & Chem 7: 08/25/18 05:43 08/26/18 07:46 Labs: Microbiology 08/24/18 13:30 Catheterized Urine Urine Culture - Final Shawanda tropicalis 08/24/18 13:30 Catheterized Urine Urine Culture - Final Shawanda tropicalis Assessment and Plan Plan 78yM presenting with recurrent urosepsis/ septic shock complicated by obstructive uropathy/ urostomy resulting in acute on chronic renal failure with hyperkalemia. Ultimately had obstructive uropathy in the left renal collecting system and ureter, had bilateral nephrostomy tubes placed on 08/17 with improvement. Developed a right-sided hematoma in the field of the right nephrostomy tube likely due to partial tube retraction. Growing out MDR pseudomonas and VRE UTI. Acute obstructive uropathy/history of RLQ urostomy with double J stent/acute on chronic kidney disease/UTI with resistant pseudomonas and yeast relieved with bilateral nephrostomy tubes in placed on 08/18. -Urology recommending internalization of PCNs once pt is more stable from infection standpoint. -antibiotics per ID. Repeat urine cultures with shawanda. Will discuss discharge with on-call ID physician. Intraperitoneal hematoma Anemia requiring transfusions adjacent to right nephrostomy tube, likely has tamponaded off, stable H&H hold anticoagulation at this time, tight blood pressure control to keep < 140 /90 -follow CBC. Stable. History of seizure disorder Continue home Keppra Delirium precautions atrial fibrillation Chronic orthostatic hypotension continue DVT prophylaxis Continue home doses of midodrine/ fludrocortisone Stable AAA seen on CT abd/pelvis measuring 3.5 cm, outpatient follow up COPD Incentive spirometer Scheduled/ PRN nebs -oxygen as needed. chronic kidney injury Appears to have reached baseline levels. -avoid nephrotoxins. History of parotidectomy Stable. -Continue home dose of pilocarpine to aid in salivation as patient has had a parotidectomy Moderate malnutrition Pt has not been eating much. -regular diet with Ensure. -SCDs -PPI Progress Note: Quality VTE Deep Vein Thrombosis/Pulmonary Embolism Present on Admission: No
[2018-08-27] MEDS: CEFTOLOZANE IV.SIG SCH ×3 (00:05→16:31)
[2018-08-27] MEDS: SODIUM CHLOR 0.9% IV.SIG SCH ×3 (00:05→16:31)
[2018-08-27] MEDS: TAZOBACTAM IV.SIG SCH ×3 (00:05→16:31)
[2018-08-27 08:06] LABS: Hematocrit 22.1 % (39.0-51.0); Hemoglobin 8.2 gm/dL (13.0-17.0); Mean Corpuscular HGB Conc 36.9 % (32.0-36.0); Mean Corpuscular Hemoglobin 32.3 pg (27.0-34.0); Mean Corpuscular Volume 87.4 fL (80.0-100.0); Mean Platelet Volume 7.5 fL (7.0-11.0); Platelet Count 314 th/mm3 (150-450); Red Blood Count 2.53 mil/mm3 (4.50-5.90); Red Cell Distribution Width 16.7 % (11.6-17.2)
[2018-08-27 08:20] LABS: Calcium 7.9 mg/dL (8.5-10.1); Carbon Dioxide 21.2 meq/L (21.0-32.0); Potassium 3.4 meq/L (3.5-5.1)
[2018-08-27] MEDS: Pilocarpine HCl 5 MG Tablet PO SCH ×2 (10:04→20:13)
[2018-08-27] MEDS: Famotidine PF Inj 20 MG/2 ML Vial IV.PUSH SCH ×2 (10:04→20:14)
[2018-08-27] MEDS: levETIRAcetam 500 MG Tablet PO SCH ×2 (10:05→20:13)
[2018-08-27] MEDS: Senna/Docusate Sodium 8.6/50 MG Tablet PO SCH ×2 (10:05→20:14)
[2018-08-27] MEDS: Multivit/Folic Acid/Minerals Chewable Tablets CHEW SCH (10:05)
--- NOTE | 2018-08-27 15:37 | P.PNIM ---
Subjective Interval history: The patient was feeling tired. He says he has been sleeping well. He denies any pain. He was hoping to be discharged tomorrow morning. Physical Exam Vital signs: Last Vital Signs Temp 97.9 F 08/27/18 12:00 Pulse 77 08/27/18 12:00 Resp 18 08/27/18 12:00 BP 139/85 08/27/18 12:00 Pulse Ox 98 08/27/18 12:00 Intake & Output 08/25/18 08/26/18 08/27/18 08/28/18 06:59 06:59 06:59 06:59 Intake Total 1570 / 1570 300 / 300 1260 / 1260 100 / 100 Output Total 2075 / 2075 1350 / 1350 900 / 900 Balance -505 / -505 -1050 / -1050 360 / 360 100 / 100 Weight 73.8 kg 73.6 kg 74.2 kg Narrative: General: Cachectic, no apparent distress. MSK: Bilateral nephrostomy tubes in place. Lungs: Clear lungs bilaterally, unlabored breathing. Heart: regular rate and rhythm. Abdomen: NT, ND. Extremities: No edema. Neuro: No gross deficits. Moves upper and lower extremities spontaneously. Results Labs CBC & Chem 7: 08/27/18 07:57 08/27/18 07:57 Labs: Microbiology 08/24/18 13:30 Catheterized Urine Urine Culture - Final Shawanda tropicalis 08/24/18 13:30 Catheterized Urine Urine Culture - Final Shawanda tropicalis Assessment and Plan Plan 78yM presenting with recurrent urosepsis/ septic shock complicated by obstructive uropathy/ urostomy resulting in acute on chronic renal failure with hyperkalemia. Ultimately had obstructive uropathy in the left renal collecting system and ureter, had bilateral nephrostomy tubes placed on 08/17 with improvement. Developed a right-sided hematoma in the field of the right nephrostomy tube likely due to partial tube retraction. Growing out MDR pseudomonas and VRE UTI. Acute obstructive uropathy/history of RLQ urostomy with double J stent/acute on chronic kidney disease/UTI with resistant pseudomonas and yeast relieved with bilateral nephrostomy tubes in placed on 08/18. -Urology recommending internalization of PCNs once pt is more stable from infection standpoint. -antibiotics per ID. Repeat urine cultures with shawanda. Discharge pending ID clearance and final recommendations. Intraperitoneal hematoma Anemia requiring transfusions adjacent to right nephrostomy tube, likely has tamponaded off, stable H&H. hold anticoagulation at this time, tight blood pressure control to keep < 140 /90 -follow CBC. Stable. History of seizure disorder Continue home Keppra Delirium precautions atrial fibrillation Chronic orthostatic hypotension continue DVT prophylaxis Continue home doses of midodrine/ fludrocortisone Stable AAA seen on CT abd/pelvis measuring 3.5 cm, outpatient follow up COPD Incentive spirometer Scheduled/ PRN nebs -oxygen as needed. chronic kidney injury Appears to have reached baseline levels. -avoid nephrotoxins. History of parotidectomy Stable. -Continue home dose of pilocarpine to aid in salivation as patient has had a parotidectomy Moderate malnutrition Pt has not been eating much. -regular diet with Ensure. -SCDs -PPI Progress Note: Quality VTE Deep Vein Thrombosis/Pulmonary Embolism Present on Admission: No
[2018-08-28] MEDS: CEFTOLOZANE IV.SIG SCH ×2 (00:30→08:28)
[2018-08-28] MEDS: TAZOBACTAM IV.SIG SCH ×2 (00:30→08:28)
[2018-08-28] MEDS: SODIUM CHLOR 0.9% IV.SIG SCH ×2 (00:30→08:28)
[2018-08-28] MEDS: levETIRAcetam 500 MG Tablet PO SCH (08:28)
[2018-08-28] MEDS: Pilocarpine HCl 5 MG Tablet PO SCH (08:28)
[2018-08-28] MEDS: Famotidine PF Inj 20 MG/2 ML Vial IV.PUSH SCH (08:28)
[2018-08-28] MEDS: Senna/Docusate Sodium 8.6/50 MG Tablet PO SCH (08:28)
[2018-08-28] MEDS: Multivit/Folic Acid/Minerals Chewable Tablets CHEW SCH (08:28)
[2018-08-28 08:30] LABS: Hemoglobin 8.2 gm/dL (13.0-17.0); Mean Corpuscular HGB Conc 32.9 % (32.0-36.0); Mean Corpuscular Hemoglobin 29.6 pg (27.0-34.0); Mean Platelet Volume 7.8 fL (7.0-11.0); Platelet Count 348 th/mm3 (150-450); Red Blood Count 2.78 mil/mm3 (4.50-5.90); Red Cell Distribution Width 17.3 % (11.6-17.2); White Blood Count 9.5 th/mm3 (4.0-11.0)
[2018-08-28 08:56] LABS: Calcium 7.9 mg/dL (8.5-10.1); Carbon Dioxide 24.5 meq/L (21.0-32.0); Potassium 3.5 meq/L (3.5-5.1)
[2018-08-28] MEDS ORDERED: Fluconazole 100 MG Tablet PO SCH (09:15)
[2018-08-28 09:28] VITALS: BP 130/60; RESP 20; TEMP 98; O2SAT 95
[2018-08-28 10:20] VITALS: PULSE 55
--- NOTE | 2018-08-28 10:59 | P.PNID ---
Subjective Remarks: Patient feels okay. Has loose bowel movement. No diarrhea. No complaints. Afebrile. Repeated urine culture from the nephrostomy tubes as Shawanda tropicalis. No longer has resistant Pseudomonas or VRE. This is a 78-year-old white male who was admitted to the hospital after he presented to the emergency department on 08/17/2018. The patient developed fever. He is a resident of a senior living. He was also noted to have hypotension and tachycardia. Reportedly, blood pressure was down to 60/40. He has a history of urostomy. His temperature was 98.1 in the emergency department. The patient had elevated white cell count of 26.5. The patient was evaluated and eventually underwent placement of bilateral nephrostomy tubes. Urine culture has growth of Enterococcus species VRE and Pseudomonas aeruginosa. The Pseudomonas is extremely resistant. Past Medical History: PAST MEDICAL HISTORY: Atrial fibrillation, chronic kidney disease, stage IV, COPD, hypertension, history of Clostridium difficile, hyperlipidemia, kidney stones, history of intertrochanteric fracture of the left hip, history of open left femoral fracture, prostate cancer parotid mass, subdural hematoma. Allergies/Adverse Reactions: Allergies crab Allergy (Intermediate, Verified 08/17/18 01:55) Rash Blue Shell crab causes severe rash all over face and neck. Needs PCN to help clear it up. Patient CAN eat Shrimp and clams, scallops, oysters without problems. Objective Vital Signs 08/27/18 12:00 08/27/18 16:00 08/27/18 20:00 Temperature 97.9 F 97.9 F 98.5 F Pulse Rate 65 69 77 Respiratory Rate 18 Blood Pressure 139/85 134/75 139/79 Pulse Oximetry 98 99 98 08/28/18 00:00 08/28/18 04:00 08/28/18 08:00 Temperature 97.3 F L 97.2 F L 98 F Pulse Rate 82 82 55 L Respiratory Rate 18 18 20 Blood Pressure 143/88 H 174/92 H 130/60 Pulse Oximetry 97 96 95 Intake & Output 08/27/18 08/28/18 08/28/18 18:59 06:59 18:59 Intake Total 680 / 680 900 / 900 Output Total 450 / 450 950 / 950 Balance 230 / 230 -50 / -50 Weight 70.7 kg Intake: IV 200 / 200 100 / 100 Zerbaxa Inj 375 MG In NS Inj 200 / 200 100 / 100 100 ML @ 100 mls/hr IV.SIG Q8H [facility] Rx#:[id number] Oral 480 / 480 800 / 800 Output: Urine Amount (Stoma) 450 / 450 950 / 950 Nephrostomy Tube Left 450 / 450 400 / 400 Nephrostomy Tube Right 200 / 200 Pre-Hospital: Continent 350 / 350 Urostomy Right Other: Date of Last Bowel Movement 08/27/18 # Bowel Movements 0 # Incontinent Bowel Movements 1 08/24/18 13:30 Catheterized Urine Urine Culture - Final Shawanda tropicalis 08/24/18 13:30 Catheterized Urine Urine Culture - Final Shawanda tropicalis Lab - Hematology Results 08/27/18 08/28/18 07:57 08:04 WBC 10.0 9.5 RBC 2.53 L 2.78 L Hgb 8.2 L 8.2 L Hct 22.1 L 25.0 L MCV 87.4 90.0 MCH 32.3 29.6 MCHC 36.9 H 32.9 RDW 16.7 17.3 H Plt Count 314 348 MPV 7.5 7.8 Hematology Comments Lab - Chemistry Results 08/27/18 08/28/18 07:57 08:04 Sodium 144 146 H Potassium 3.4 L 3.5 Chloride 112 H 112 H Carbon Dioxide 21.2 24.5 Anion Gap 11 10 BUN 40 H 42 H Creatinine 2.10 H 1.99 H Estimated GFR 31 L 33 L Random Glucose 90 90 Calcium 7.9 L 7.9 L Imaging: ITS Impressions Nephrostomy 08/17/18 00:00 CONCLUSION: 1. Uncomplicated nephrostomy tube placement as above. Chest X-Ray 08/17/18 02:07 CONCLUSION: The lungs are clear. Abdomen/Pelvis CT 08/20/18 17:08 CONCLUSION: 1. Interval placement of bilateral percutaneous cystostomy catheters. The right nephrostomy catheter has been retracted from the renal pelvis and may potentially be in a calyx but remains in the kidney. There is an associated moderate to large sized perinephric hematoma extending inferiorly to the region of the pelvis. 2. Redemonstration of bilateral renal calculi unchanged from recent prior CT exam. 3. Additional stable ancillary findings, as above. Findings were personally discussed with hospitalist. Patient is currently hemodynamically stable. Will monitor with serial H&H and consider further intervention as clinically necessary. Physical Exam: PHYSICAL EXAMINATION: GENERAL: Awake and alert. HEENT: Head is atraumatic. Extraocular movements grossly intact. Pupils reactive to light. No icterus. Oropharynx: Moist mucosa. NECK: Supple without adenopathy or swelling. LUNGS: Clear breath sounds. HEART: Irregular S1, S2. No audible murmurs. ABDOMEN: Bowel sounds present. Soft, no tenderness. nephrostomy urine is clear. EXTREMITIES: No clubbing, cyanosis or edema. SKIN: No rash. NEUROLOGIC: Nonfocal. PSYCHIATRIC: Calm and cooperative. Assessment and Plan - Plan IMPRESSION: 1. Urinary tract infection due to Enterococcus (vancomycin-resistant Enterococcus) and Pseudomonas. Repeat urine culture has multidrug-resistant Pseudomonas. Repeat urine culture has Shawanda. 2. Status post bilateral nephrostomy. 3. Chronic kidney disease. 4. Sepsis/septic shock on admission. Resolved. 5. History of recurrent Clostridium difficile infection. RECOMMENDATIONS: 1. Stop Ceftolozane/tazobactam. 2. P.o. fluconazole 100 mg daily for 7 days treat the Shawanda tropicalis. Patient can be discharged back to detention facility from ID standpoint. Discussed with .
--- NOTE | 2018-08-28 11:12 | P.DS ---
DS: Providers Date of admission: 08/17/18 04:30 Primary care physician: No Primary Care Physician Consults: 08/17/18 08:19 Consult to Cat Sitter Stat Consulting Provider: Courtney Barrera For STAT consult, spoke directly to:: Dr. Barrera Preferred Coater Operator Insulation Board:: Courtney Barrera Reason for Consultation: septic shock Notified:: Service Spoke with:: norma Date Notified:: 08/17/18 Time Notified:: 08:46 Ordering Provider: HELADIO 08/17/18 08:44 Consult to Urology Routine Consulting Provider: Collin Weston Patient known to:: Eliezer Ulrichhayden Reason for Consultation: RLQ urostomy now with severe dilation of collection system/ ureter and urosepsis Notified:: Office Spoke with:: braulio Date Notified:: 08/17/18 Time Notified:: 08:51 Ordering Provider: PEGGY 08/17/18 08:45 Consult to Palliative Care Routine Consulting Provider: Alberta Mora Reason for Consultation: Recurrent urosepsis Notified:: Service Spoke with:: cass Date Notified:: 08/17/18 Time Notified:: 08:53 Ordering Provider: PEGGY 08/17/18 11:51 HUB Only Consult Order Routine Consulting Provider: Miguelito Stewart 08/18/18 13:31 Consult to Hospitalist Routine Consulting Provider: Mauricio Elizabeth Reason for Consultation: continuation of medical management on 08/19 Notified:: Service Spoke with:: fátima Date Notified:: 08/18/18 Time Notified:: 13:35 Comments:: waiting baby registry sales consultant back/ra Ordering Provider: PEGGY 08/19/18 10:19 Consult to Infectious Diseases Routine Consulting Provider: Tonny Ng Reason for Consultation: MDR psuedomonas with UTI, had septic shock Notified:: Service Spoke with:: CIELO Date Notified:: 08/19/18 Time Notified:: 10:28 Ordering Provider: HELADIO Anticipated date of discharge: 08/28/18 Brief History from admission: 78yM who presented to the ED overnight for recurrent sepsis. The patient lives in a nursing facility and was noted to be hypotensive, tachycardic, with tactile fevers for the past day. He was seen in the emergency department and found to have leukocytosis (26K), hypotension/ tachycardia (BP 70s/50s, HR 100s on arrival), with UTI and CT scan showing obstructive uropathy of his previous RLQ urostomy. The patient was started on zosyn and admitted initially to the hospitalist service. He was given 2L of IV fluids but remained hypotensive, lactic acid persistently elevated, and critical care was requested to resume his care. The patient has a history of urostomy with multiple admissions for complications thereof and urosepsis in the past year (most recently in 06/2018) ; he has also had recurrent C diff and recurrent acute kidney injury. He reports that he lives in a detention, is able to ambulate with a walker, and is independent of most ADLs at baseline. Patient update on day of discharge: The patient was resting comfortably in bed. He had no acute complaints. He was looking forward to being discharged. Discussed with infectious disease. DS: Diagnosis Discharge Diagnosis (1) Weakness: Status: Acute (2) UTI (urinary tract infection): Status: Acute (3) Nephrostomy status: Status: Chronic DS: Summary Urology 78 year old male presenting with recurrent urosepsis/ septic shock complicated by obstructive uropathy/ urostomy resulting in acute on chronic renal failure with hyperkalemia. Ultimately had obstructive uropathy in the left renal collecting system and ureter, had bilateral nephrostomy tubes placed on 08/17 with improvement. He developed a right-sided hematoma in the field of the right nephrostomy tube likely due to partial tube retraction. Growing out MDR pseudomonas and VRE on culture as well as yeast. Urology recommending internalization of PCNs once pt is more stable from infection standpoint. He will follow up with urology as an outpt. Repeat urine cultures grew sid. The pt will complete a course of PO fluconazole. Intraperitoneal hematoma/Anemia requiring transfusions Hematoma adjacent to right nephrostomy tube. Hemoglobin has been stable. The pt will follow up with urology as an outpt. Chronic orthostatic hypotension We continued the pt's home fludrocortisone. We are holding his midodrine for now. He may resume midodrine if needed. AAA Stable, as seen on CT abd/pelvis measuring 3.5 cm. The pt will have outpatient follow up with his PCP. Time Spent with Patient Total time spent providing and/or coordinating discharge services: Greater than 30 minutes Quality: VTE Deep Vein Thrombosis/Pulmonary Embolism Present on Admission: No Exam Narrative Exam Narrative: General: Thin, no apparent distress. MSK: Bilateral nephrostomy tubes in place draining yellow urine. Lungs: Clear lungs bilaterally, unlabored breathing. Heart: Regular rate and rhythm. Abdomen: NT, ND. Extremities: No edema. Neuro: No gross deficits. Moves upper and lower extremities spontaneously. Psych: Mood and affect appropriate. Results Procedures completed during hospitalization: See hospital course Labs on day of discharge: Labs from last 24 hours 08/28/18 08/28/18 08:04 08:04 WBC 9.5 RBC 2.78 L Hgb 8.2 L Hct 25.0 L MCV 90.0 MCH 29.6 MCHC 32.9 RDW 17.3 H Plt Count 348 MPV 7.8 Sodium 146 H Potassium 3.5 Chloride 112 H Carbon Dioxide 24.5 Anion Gap 10 BUN 42 H Creatinine 1.99 H Estimated GFR 33 L Random Glucose 90 Calcium 7.9 L Impressions ITS Impressions Nephrostomy 08/17/18 00:00 CONCLUSION: 1. Uncomplicated nephrostomy tube placement as above. Chest X-Ray 08/17/18 02:07 CONCLUSION: The lungs are clear. Abdomen/Pelvis CT 08/20/18 17:08 CONCLUSION: 1. Interval placement of bilateral percutaneous cystostomy catheters. The right nephrostomy catheter has been retracted from the renal pelvis and may potentially be in a calyx but remains in the kidney. There is an associated moderate to large sized perinephric hematoma extending inferiorly to the region of the pelvis. 2. Redemonstration of bilateral renal calculi unchanged from recent prior CT exam. 3. Additional stable ancillary findings, as above. Findings were personally discussed with hospitalist. Patient is currently hemodynamically stable. Will monitor with serial H&H and consider further intervention as clinically necessary. Discharge Plan Discharge Disposition Patient Disposition: 03 Discharge to SNF Discharge Condition Condition: Stable Discharge Order Discharge Orders: Discharge Order (Routine); Ordered 08/28/18 Ordered By: Jaret Joseph Discharge Details Anticipated Discharge Date: 08/28/18 Physicians Team Primary Care Provider: Primary Care Scott,Dot Attending Provider: Jaret Joseph Other Providers: Courtney Barrera ; Alberta Mora ; Collin Weston ; Miguelito Stewart ; Tonny Ng Rxs /Orders / Referrals /Forms Prescriptions: New fluconazole 100 mg Tablet 100 mg PO DAILY Qty: 7 RF: 0 Continue acetaminophen 325 mg tablet 650 mg PO Q4H PRN (Reason: Pain) RF: 0 fludrocortisone 0.1 mg Tablet 0.1 mg PO DAILY Qty: 10 RF: 0 multivitamin with folic acid [Thera] 400 mcg Tablet 1 tab PO DAILY RF: 0 pilocarpine HCl 5 mg Tablet 5 mg PO BID RF: 0 ipratropium-albuterol 0.5 mg-3 mg(2.5 mg base)/3 mL Solution For Nebulization 1 amp NEB Q4HR NEB PRN (Reason: SOB/WHeezing) RF: 0 dronabinol 2.5 mg Capsule 2.5 mg PO AC LUNCH Qty: 30 RF: 0 dronabinol [Marinol] 2.5 mg capsule 2.5 mg PO AC BREAKFAST Qty: 30 RF: 0 levetiracetam [Keppra] 500 mg Tablet 500 mg PO BID Qty: 60 RF: 0 Saccharomyces boulardii 250 mg Capsule 250 mg PO BID RF: 0 lactulose 20 gram/30 mL solution 15 ml PO DAILY PRN (Reason: Severe Consitipation) RF: 0 Discontinued midodrine 5 mg Tablet 5 mg PO TID@0700,1200,1700 Qty: 30 RF: 0 metronidazole [Flagyl] 500 mg Tablet 500 mg PO TID Qty: 30 RF: 0 nitrofurantoin monohyd/m-cryst 100 mg Capsule 100 mg PO BID RF: 0 Referrals: [facility] [Family Provider] - See Instructions (One week PCP follow-up) Primary Care Dot Chavez [Primary Care Provider] - See Instructions Iraj Lynch MD [Non-Staff] - See Instructions (Follow up with urology in one week) Status ED Status: Left Department
== END 2018-08-28 12:52 | DRG 871 ==
LOC: NEPE 01:49 → NEDA 04:30 → N03 05:43 → N04 08-25 16:33
PROVIDERS: ADMIT Hospitalist; ATTEND Hospitalist
DX: E78.5 Hyperlipidemia, unspecified; D64.9 Anemia, unspecified; I12.9 Hypertensive chronic kidney disease with stage 1 through stage 4 chronic kidney disease, or unspecified chronic kidney disease; Z85.46 Personal history of malignant neoplasm of prostate; Z85.51 Personal history of malignant neoplasm of bladder; Z87.440 Personal history of urinary (tract) infections; Z90.6 Acquired absence of other parts of urinary tract; E87.5 Hyperkalemia; I71.4 Abdominal aortic aneurysm, without rupture; N17.9 Acute kidney failure, unspecified; Z82.49 Family history of ischemic heart disease and other diseases of the circulatory system; A41.9 Sepsis, unspecified organism; Z87.891 Personal history of nicotine dependence; Z86.19 Personal history of other infectious and parasitic diseases; I48.91 Unspecified atrial fibrillation; N18.4 Chronic kidney disease, stage 4 (severe); Z93.6 Other artificial openings of urinary tract status; B96.5 Pseudomonas (aeruginosa) (mallei) (pseudomallei) as the cause of diseases classified elsewhere; F03.90 Unspecified dementia, unspecified severity, without behavioral disturbance, psychotic disturbance, mood disturbance, and anxiety; E44.0 Moderate protein-calorie malnutrition; K80.20 Calculus of gallbladder without cholecystitis without obstruction; G40.909 Epilepsy, unspecified, not intractable, without status epilepticus; N28.89 Other specified disorders of kidney and ureter; J44.9 Chronic obstructive pulmonary disease, unspecified; I95.1 Orthostatic hypotension; E87.2 Acidosis; B95.2 Enterococcus as the cause of diseases classified elsewhere; Z87.442 Personal history of urinary calculi; Z16.24 Resistance to multiple antibiotics; Z79.01 Long term (current) use of anticoagulants; R65.21 Severe sepsis with septic shock; E86.0 Dehydration; N20.0 Calculus of kidney; S37.011A Minor contusion of right kidney, initial encounter; Z86.14 Personal history of Methicillin resistant Staphylococcus aureus infection
CPT/HCPCS: 36430; 50432; 71010; 71045; 74176; 80048; 80053; 80076; 80162; 80202; 81001; 82272; 82948; 82962; 83520; 83605; 83735; 83880; 84100; 84484; 85014; 85018; 85025; 85027; 85610; 86850; 86900; 86901; 86923; 87040; 87077; 87086; 87106; 87186; 87275; 87276; 87493; 87641; 87804; 90761; 90765; 93005; 94150; 94640; 94664; 94665; 96361; 96365; 97163; 97530; 99145; 99152; 99153; 99291; A4646; C1729; C1758; C1765; C1769; C1894; C2617; C9452; J0695; J1160; J1644; J2020; J2250; J2370; J2543; J3010; J3370; J7030; J7040; J7050; P9016; Q9950; Q9965; Q9967

== ENCOUNTER 2018-08-30 07:25 | Inpatient (IN) ==
--- NOTE | 2018-08-30 07:54 | ED ---
HPI General Chief Complaint: Fever Stated Complaint: GI Time Seen by Provider: 08/30/18 07:35 Source: patient Mode of arrival: EMS Limitations: no limitations History of Present Illness HPI Narrative: The patient is a 78-year-old male who presents to the emergency department via EMS from the halfway for fever and diarrhea. The patient was recently hospitalized in July for obstructive urostomy and underwent bilateral percutaneous nephrostomy tube placement with a complication including perinephric hematoma. The patient was treated for urosepsis at that time it was noted to be hypotensive and tachycardic. The patient initially was evaluated in the intensive care unit and then transferred to the hospitalist service. The patient was just discharged on August 28 to the halfway. According to halfway report given to the nurse, Casandra Rose, the patient had a fever last night of 101 orally. Apparently the patient refused to go see the physician, therefore, the nurse practitioner sent the patient to the emergency department. Upon arrival the patient is a somewhat limited historian who is oriented to his name, but is a limited historian. The patient does note 5 episodes of diarrhea last night described as loose, also complains of mild left-sided abdominal pain which has been present since his previous hospitalization. The patient denies any chest pain, shortness of breath, cough , nausea, or vomiting. Symptoms are moderate. complaint: Reports fever Onset (ago): hour(s) Temperature Source: oral Context: Reports recent antibiotic use Associated symptoms: Reports diarrhea Relieving factors: nothing Exacerbating factors: nothing Treatments prior to arrival fever: Reports none Related Data Home Medications Medication Instructions Recorded Confirmed pilocarpine HCl 5 mg PO BID 05/15/18 08/30/18 Previous Rx's Medication Instructions Recorded multivitamin with folic acid 1 tab PO DAILY tab 05/10/18 [Thera] ipratropium-albuterol 1 amp NEB Q4HR NEB PRN ml 06/09/18 fludrocortisone 0.1 mg PO DAILY #10 tab 07/24/18 fluconazole 100 mg PO DAILY #7 tab 08/28/18 Allergies Allergy/AdvReac Type Severity Reaction Status Date / Time crab Allergy Intermediate Rash Verified 08/30/18 07:57 Review of Systems ROS: all other systems reviewed are negative PMFSH Social History Social History Substance History: No History of Abuse Second Hand Smoke Exposure: No Smoking Status: Never smoker How Often Do You Have a Drink Containing Alcohol: Never Recent Travel in [facility] within the Last 8 Weeks: No Recent Out of Country Travel within the Last 8 Weeks: No Exam Narrative Exam Narrative: GENERAL: Awake, alert, 78-year-old male who appears his stated age and is in no acute respiratory distress. Patient is noted to be cachectic. SKIN: Focused skin assessment warm/dry. HEAD: Atraumatic. Normocephalic. EYES: Pupils equal and round. 3 mm bilateral and reactive. ENT: No nasal bleeding or discharge. Dry mucous membranes. NECK: Trachea midline. No JVD. CARDIOVASCULAR: Regular rate and rhythm. No murmur appreciated. RESPIRATORY: No accessory muscle use. Clear to auscultation. Breath sounds equal bilaterally. GASTROINTESTINAL: Abdomen soft, urostomy in place right side of the abdomen. Mild tenderness left lower quadrant. Loose green stool noted in the diaper. MUSCULOSKELETAL: Cachectic extremities. Hematoma noted on the proximal to mid right forearm as well as the distal humerus. NEUROLOGICAL: Awake and alert. No obvious cranial nerve deficits. Motor grossly within normal limits. Normal speech. Oriented to person. Back: Bilateral percutaneous nephrostomy tubes. PSYCHIATRIC: Appropriate mood and affect; insight and judgment normal. Course Initial Documented Vital Signs Temperature 98.9 F 08/30/18 07:42 Pulse Rate 97 H 08/30/18 07:42 Respiratory Rate 20 08/30/18 07:42 Blood Pressure 110/67 08/30/18 07:42 Pulse Oximetry 97 08/30/18 07:42 Last Documented Vital Signs Temperature 98.9 F 08/30/18 07:42 Pulse Rate 96 H 08/30/18 08:32 Respiratory Rate 20 08/30/18 07:42 Blood Pressure 118/62 08/30/18 08:32 Pulse Oximetry 97 08/30/18 08:32 Medical Decision Making [facility] Narrative Medical decision making narrative: IV was established, labs are drawn and sent, and the patient was placed on cardiac telemetry monitoring and continuous pulse oximetry monitoring. Stool was sent for C. difficile. The patient was administered IV fluids. Blood cultures and lactic acid were sent to lab. Patient does have left lower quadrant abdominal pain and reported fever 101 orally at the halfway, therefore, CT of the abdomen and pelvis with IV contrast was ordered. The patient's UA does have RBCs and WBCs, with a history of VRE and resistant Pseudomonas. The patient also was noted to have yeast, was being treated with Diflucan prior to discharge. The patient's chest x-ray reveals a right-sided pneumonia, stool for C. difficile is positive. The patient has a history of recurrent C. difficile, however, his last testing was negative. Patient's white count is normal, he does complain of abdominal pain, but CT the abdomen and pelvis reveals no significant change in the patient's perinephric hematoma. The patient will be treated for hospital-acquired pneumonia as well as C. difficile, has a history of resistant bacteria in the UA. Patient will be admitted until cultures are obtained. Patient may benefit from an infectious disease consultation, he last was seen by Dr. Ng. Medical Screen Exam Complete: Yes Emergency Medical Condition: Yes Differential Diagnosis Differential Diagnosis: Differential diagnosis includes urosepsis, pyelonephritis, infected hematoma, C. difficile, pneumonia, acute kidney injury , dehydration. Lab Data Lab results reviewed: Yes I reviewed the patient's lab results. Lab results narrative: Elevated white count of 24.9 Result diagrams: 08/30/18 08:20 08/30/18 08:20 Lab Results 08/30/18 08/30/18 08/30/18 Range/Units 08:09 08:09 08:20 WBC 24.9 H (4.0-11.0) th/mm3 RBC 3.48 L (4.50-5.90) mil/mm3 Hgb 10.6 L (13.0-17.0) gm/dL Hct 31.8 L (39.0-51.0) % MCV 91.4 (80.0-100.0) fL MCH 30.4 (27.0-34.0) pg MCHC 33.3 (32.0-36.0) % RDW 17.8 H (11.6-17.2) % Plt Count 341 (150-450) th/mm3 MPV 9.4 (7.0-11.0) fL Prelim Diff (Auto) Manual diff required Differential Comment . Lactic Acid (0.4-2.0) mmol/L Total Bilirubin (0.2-1.0) mg/dL ALT (12-78) U/L Alkaline Phosphatase (45-117) U/L Total Protein (6.4-8.2) g/dL Urine Color Yellow (Yellw/Straw) Urine Clarity Hazy H (Clear) Urine pH 7.0 (5.0-8.5) Ur Specific [place] 1.009 (1.002-1.035) Urine Protein 100 H (Neg-Trace) mg/dL Urine Glucose (UA) Negative (Negative) mg/dL Urine Ketones Negative (Negative) mg/dL Urine Occult Blood Large H (Negative) Urine Nitrate Negative (Negative) Urine Bilirubin Negative (Negative) Urine Urobilinogen Less than 2 (Less than 2) mg/dL Ur Leukocyte Esterase Large H (Negative) Urine RBC 44 H (0-3) /hpf Urine WBC 13 H (0-5) /hpf Ur Squamous Epith Cells 1 (0-5) /hpf Urine Bacteria Few H (None) /hpf Urine Mucus Few H (Occasional) /lpf Urine Yeast Moderate H (None) /hpf Ur Yeast w Hyphae Rare H (None) /hpf Micro UA Comment Culture indicated Ur Microscopic Review Not Reportable Urine Culture Comments Culture indicated Stl C.difficile DNA Amp Positive H (Negative) St C. diff Tox Epid 027 Negative (Negative) 08/30/18 08/30/18 Range/Units 08:20 08:25 WBC (4.0-11.0) th/mm3 RBC (4.50-5.90) mil/mm3 Hgb (13.0-17.0) gm/dL Hct (39.0-51.0) % MCV (80.0-100.0) fL MCH (27.0-34.0) pg MCHC (32.0-36.0) % RDW (11.6-17.2) % Plt Count (150-450) th/mm3 MPV (7.0-11.0) fL Prelim Diff (Auto) Differential Comment Lactic Acid 1.4 (0.4-2.0) mmol/L Total Bilirubin 1.1 H (0.2-1.0) mg/dL ALT 45 (12-78) U/L Alkaline Phosphatase 127 H (45-117) U/L Total Protein 7.3 D (6.4-8.2) g/dL Urine Color (Yellw/Straw) Urine Clarity (Clear) Urine pH (5.0-8.5) Ur Specific [place] (1.002-1.035) Urine Protein (Neg-Trace) mg/dL Urine Glucose (UA) (Negative) mg/dL Urine Ketones (Negative) mg/dL Urine Occult Blood (Negative) Urine Nitrate (Negative) Urine Bilirubin (Negative) Urine Urobilinogen (Less than 2) mg/dL Ur Leukocyte Esterase (Negative) Urine RBC (0-3) /hpf Urine WBC (0-5) /hpf Ur Squamous Epith Cells (0-5) /hpf Urine Bacteria (None) /hpf Urine Mucus (Occasional) /lpf Urine Yeast (None) /hpf Ur Yeast w Hyphae (None) /hpf Micro UA Comment Ur Microscopic Review Urine Culture Comments Stl C.difficile DNA Amp (Negative) St C. diff Tox Epid 027 (Negative) Imaging Data Attestation: I personally reviewed and interpreted this imaging study as follows : My impression: Pneumonia right middle/right lower lobe Radiologist's impression: Chest X-Ray 08/30/18 07:47 CONCLUSION: Minimal consolidation developing right lower lobe. Abdomen/Pelvis CT 08/30/18 08:18 CONCLUSION: 1. Stable large right perinephric hematoma with the nephrostomy tube in good position. 2. Left prostatectomy tube in good position without hematoma 3. Continued close clinical surveillance is suggested. 4. I do not see an etiology for the patient's fever other than the renal stones and hematoma. Discharge Plan Discharge Disposition Patient Disposition: ED Admit(ED Internal Use Only) Discharge Condition Condition: Stable Discharge Order Discharge Orders: ED Use Only Admit Order (Routine); Ordered 08/30/18 Ordered By: Say Mcnamara Discharge Details Diagnosis: C. difficile colitis, Obstructive uropathy, Acute on chronic kidney failure, Diarrhea, Pneumonia Physicians Team ED Provider: Say Mcnamara Primary Care Provider: Jaime Pérez Rxs /Orders / Referrals /Forms Prescriptions: No Action fludrocortisone 0.1 mg Tablet 0.1 mg PO DAILY Qty: 10 RF: 0 multivitamin with folic acid [Thera] 400 mcg Tablet 1 tab PO DAILY RF: 0 pilocarpine HCl 5 mg Tablet 5 mg PO BID RF: 0 ipratropium-albuterol 0.5 mg-3 mg(2.5 mg base)/3 mL Solution For Nebulization 1 amp NEB Q4HR NEB PRN (Reason: SOB/WHeezing) RF: 0 fluconazole 100 mg Tablet 100 mg PO DAILY Qty: 7 RF: 0 Status ED Status: Admitted Patient
[2018-08-30] MEDS ORDERED: Sod Chloride 0.9% Inj 1,000 ML IV.CONT SCH (08:00)
[2018-08-30 08:33] LABS: Bilirubin,Urine Negative (Negative); Color,Urine Yellow (Yellw/Straw); Glucose,Urine (UA) Negative (Negative); Leukocyte Esterase,Urine Large (Negative); Mucus,Urine Few /lpf (Occasional); Nitrite,Urine Negative (Negative); Specific Gravity,Urine 1.009 (1.002-1.035); Squamous Epithelial Cell,Urine 1 /hpf (0-5)
[2018-08-30 08:37] LABS: Clarity,Urine Hazy (Clear)
[2018-08-30 08:38] LABS: Bacteria,Urine Few /hpf
--- NOTE | 2018-08-30 09:04 | XR ---
EXAM DATE: 08/30/2018 8:44 AM EST AGE/SEX: 78 years / Male INDICATIONS: Fever and shortness of breath. CLINICAL DATA: This is the patient's initial encounter. Patient reports that signs and symptoms have been present for 1 day and indicates a pain score of 0/10. MEDICAL/SURGICAL HISTORY: Carcinoma, prostatic. Chronic obstructive pulmonary disease. Hypert ension. . Nephrostomy. COMPARISON: [facility] [place], CHEST 1V SINGLE AP, 08/17/2018. . FINDINGS: There is consolidation developing in the right lower lobe. Left lung clear. Heart is minimally enlarged. Pulmonary vascularity is normal Macro bones CONCLUSION: Minimal consolidation developing right lower lobe. Electronically signed by: David Fofana MD Board Certified Radiologist 08/30/2018 9:03 AM EST
[2018-08-30] MEDS ORDERED: Azithromycin Inj 500 MG in Sodium Chlor 0.9% Inj 250 ML IV.SIG ONE (09:17)
--- NOTE | 2018-08-30 09:52 | CT ---
EXAM DATE: 08/30/2018 9:24 AM EST AGE/SEX: 78 years / Male INDICATIONS: Fever, left lower quadrant pain. CLINICAL DATA: This is the patient's initial encounter. Patient reports that signs and symptoms have been present for 1 day and indicates a pain score of 10/10. MEDICAL/SURGICAL HISTORY: Cardiovascular disease. Hypertension. Renal disease. prostate canc er . bilateral nephrostomy tubes, urostomy RADIATION DOSE: 11.84 CTDI (mGy) COMPARISON: [facility] [place], CT ABDOMEN & PELVIS W/O CONTRAST, 08/20/2018. . TECHNIQUE: Multiple contiguous axial images were obtained through the abdomen. Images were obtained using multiple row detector helical technique. Using automated exposure control and adjustment of the mA and/or kV according to patient size, radiation dose was kept as low as reasonably achievable to o btain optimal diagnostic quality images. DICOM format image data is available electronically for rev iew and comparison. FINDINGS: Small right pleural effusion with minimal parenchymal changes right base. Left lung is clear. Moderate artifact is present in the liver from the patient's hands. Large calcified gallstones are no palomo Right kidney: Right nephrostomy catheter in good position with small perinephric hematoma extending d own the right iliopsoas as stable in the interval. Stable in the interval. Left kidney: Nephrouretera l stent is present on the left. Large calcified stone is noted. 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 Ostomy is seen in the left lower quadrant. In the pelvis multiple diverticuli are present in the sigmoid colon. There is no ascites. CONCLUSION: 1. Stable large right perinephric hematoma with the nephrostomy tube in good position. 2. Left prostatectomy tube in good position without hematoma 3. Continued close clinical surveillance is suggested. 4. I do not see an etiology for the patient's fever other than the renal stones and hematoma. Electronically signed by: David Fofana MD Board Certified Radiologist 08/30/2018 9:51 AM EST
[2018-08-30 10:52] LABS: Hematocrit 31.8 % (39.0-51.0); Hemoglobin 10.6 gm/dL (13.0-17.0); Mean Corpuscular HGB Conc 33.3 % (32.0-36.0); Mean Corpuscular Hemoglobin 30.4 pg (27.0-34.0); Mean Corpuscular Volume 91.4 fL (80.0-100.0); Mean Platelet Volume 9.4 fL (7.0-11.0); Platelet Count 341 th/mm3 (150-450); Red Blood Count 3.48 mil/mm3 (4.50-5.90); Red Cell Distribution Width 17.8 % (11.6-17.2); White Blood Count 24.9 th/mm3 (4.0-11.0)
[2018-08-30 10:58] LABS: Alanine Aminotransferase 45 U/L (12-78)
[2018-08-30 11:01] LABS: Alkaline Phosphatase 127 U/L (45-117); Total Protein 7.3 g/dL (6.4-8.2)
[2018-08-30 11:12] LABS: Albumin 2.4 g/dL (3.4-5.0); Anion Gap 11 meq/L (5-15); Aspartate Aminotransferase 55 U/L (15-37); Blood Urea Nitrogen 43 mg/dL (7-18); Calcium 8.6 mg/dL (8.5-10.1); Chloride 110 meq/L (98-107); Glomerular Filtration Rate 29 mL/min (>89); Glucose,Random 81 mg/dL (74-106); Magnesium 1.7 mg/dL (1.5-2.5); Sodium 144 meq/L (136-145)
[2018-08-30 11:15] LABS: Potassium 3.6 meq/L (3.5-5.1)
[2018-08-30 11:49] LABS: Lymphocytes 7 % (9-44); Monocytes 5 % (0-8)
[2018-08-30 11:50] LABS: Burr Cells 1+; Ovalocytes 1+; Platelet Estimate Normal (Normal); Platelet Morphology Normal (Normal)
--- NOTE | 2018-08-30 12:51 | P.HPIM ---
History of Present Illness Primary Care Physician: Jaime Pérez MD History of Present Illness: This patient is a 78 y/o male with multiple medical problems including documented a fib, COPD, HTN, DLD, prostate cancer, obstructive uropathy s/p nephrostomy tubes b/l and recently discharged after having MDR UTI with pseudomonas, VRE, and Shawanda. Patient was being followed by ID Dr. Ng during that admission. Patient resides at a SNF and was brought into the ED today with Diarrhea and fever of 101. Patient denies having a significant cough but says because of copd he coughs here and there and is a chronic issue. No abd pain. The patient is a very poor historian, most of the information was obtained from the patient's chart and his son at bedside. Fam hx noncontributory Inpatient Certification: I certify that the inpatient services were ordered in accordance with Medicare regulations governing the order. This includes certification that hospital inpatient services are reasonable and necessary and in the case of services not specified as inpatient-only under 42 CFR 419.22(n), that they are appropriately provided as inpatient services in accordance to with the 2-midnight benchmark under 43 CFR 412.3(e) Estimated Total Length of Stay (Days): 3 Plans for Post Hospital Care: Home 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 - Medical History Medical History: Medical History (Last Reviewed 08/30/18 @ 07:50 by Della Mckeon RN) Candidal cystitis and urethritis Anticoagulant long-term use Atrial fibrillation COPD (chronic obstructive pulmonary disease) Chronic kidney disease, stage IV (severe) Essential hypertension H/O reduction of nasal fracture History of Clostridium difficile infection History of MDR Pseudomonas aeruginosa infection Onset Date: ~08/17/18 History of MRSA infection Hyperlipidemia Kidney stones MDRO (multiple drug resistant organisms) resistance Onset Date: ~06/17/18 Nasal bones, closed fracture Nasal fracture Open left femoral fracture Prostate cancer Subdural hematoma UTI (urinary tract infection) VRE carrier Hypotension Intertrochanteric fracture of left hip Parotid mass - Surgical History Surgical History: Surgical History (Last Reviewed 08/30/18 @ 07:50 by Della Mckeon RN) History of parotidectomy History of urostomy Hx of nephrostomy Nephrostomy status - Family History Family History: Family History (Last Reviewed 08/19/18 @ 15:26 by Bess Saleem) Father Coronary artery disease Other Osteoarthritis - Tobacco History Second Hand Smoke Exposure: No Smoking Status: Never smoker - Alcohol History How Often Do You Have a Drink Containing Alcohol: Never - Substance Use History Substance History: No History of Abuse - Travel History Recent Travel in the [place] Within the Last 8 Weeks: No Recent Travel Out of the Country Within the Last 8 Weeks: No - Immunization History Tetanus Immunization: <5 Years Medications and Allergies Active Medications: Active Medications Albuterol (Duoneb Neb (Prn)) 1 ampul NEB Q4HR NEB PRN PRN Reason: SHORTNESS OF BREATH/WHEEZING Fluconazole (Diflucan) 100 mg PO DAILY TRAVIS Fludrocortisone Acetate (Florinef) 0.1 mg PO DAILY TRAVIS Sodium Chloride (Ns Inj) 1,000 mls @ 125 mls/hr IV.CONT .Q8H TRAVIS Stop: 08/30/18 15:59 Last Admin: 08/30/18 08:25 Dose: 125 mls/hr Ceftolozane/Tazobactam 375 mg/ (Sodium Chloride) 100 mls @ 100 mls/hr IV.SIG Q8H TRAVIS Multivitamins/Folic Acid/Vitamin C (Flintstones) 1 tab CHEW DAILY TRAVIS Pilocarpine HCl (Salagen) 5 mg PO BID TRAVIS Sodium Chloride (Ns Flush) 2 ml IV.FLUSH PRN PRN PRN Reason: FLUSH AFTER USING IV ACCESS Vancomycin HCl (Vancomycin Po) 125 mg PO QID TRAVIS Allergies Allergy/AdvReac Type Severity Reaction Status Date / Time crab Allergy Intermediate Rash Verified 08/30/18 07:57 Home Medications Medication Instructions Recorded Confirmed Type pilocarpine HCl 5 mg PO BID 05/15/18 08/30/18 History Exam Vital signs: Vital Signs 08/30/18 07:42 08/30/18 08:32 Temperature 98.9 F Pulse Rate 97 H 96 H Respiratory Rate 20 Blood Pressure 110/67 118/62 Pulse Oximetry 97 97 Intake & Output 08/29/18 08/30/18 08/30/18 18:59 06:59 18:59 Intake Total 100 / 100 Balance 100 / 100 Weight 78.925 kg Intake: IV 100 / 100 Maxipime Inj 2,000 MG In NS Inj 100 / 100 100 ML @ 200 mls/hr IV.SIG ONCE ONE Rx#:[id number] Narrative: alert and oriented. S1 S2 tachycardic CTA b/L abd soft, nontender, non distended, normal bs, urostomy tube, b/l nephrostomy tubes, hematuria right no edema of exts, right elbow hematoma noted. Patient moves all 4 exts, sensation intact b/l Results - Labs CBC & Chem 7: 08/30/18 08:20 08/30/18 08:20 Labs: Short CBC 08/30/18 Range/Units 08:20 WBC 24.9 H (4.0-11.0) th/mm3 Hgb 10.6 L (13.0-17.0) gm/dL Hct 31.8 L (39.0-51.0) % Plt Count 341 (150-450) th/mm3 BMP 08/30/18 08:20 Sodium 144 Potassium 3.6 Chloride 110 H Carbon Dioxide 23.0 BUN 43 H Creatinine 2.21 H Calcium 8.6 Liver Function 08/30/18 Range/Units 08:20 Total Bilirubin 1.1 H (0.2-1.0) mg/dL AST 55 H (15-37) U/L ALT 45 (12-78) U/L Alkaline Phosphatase 127 H (45-117) U/L Albumin 2.4 L (3.4-5.0) g/dL Urine 08/30/18 Range/Units 08:09 Urine Color Yellow (Yellw/Straw) Urine Clarity Hazy H (Clear) Urine pH 7.0 (5.0-8.5) Ur Specific [place] 1.009 (1.002-1.035) Urine Protein 100 H (Neg-Trace) mg/dL Urine Glucose (UA) Negative (Negative) mg/dL - Imaging Impressions Chest X-Ray 08/30/18 07:47 CONCLUSION: Minimal consolidation developing right lower lobe. Abdomen/Pelvis CT 08/30/18 08:18 CONCLUSION: 1. Stable large right perinephric hematoma with the nephrostomy tube in good position. 2. Left prostatectomy tube in good position without hematoma 3. Continued close clinical surveillance is suggested. 4. I do not see an etiology for the patient's fever other than the renal stones and hematoma. Caprini VTE Risk Assessment Caprini VTE Risk Assessment: Moderate/High Risk (score >= 2) Caprini Risk Assessment Model: Point Value = 1 Point Value = 2 Point Value = 3 Point Value = 5 Age 41-60 Minor surgery BMI > 25 kg/m2 Swollen legs Varicose veins or History of unexplained or recurrent spontaneous Oral contraceptives or hormone replacement Sepsis (< 1 month) Serious lung disease, including pneumonia (< 1 month) Abnormal pulmonary function Acute myocardial infarction Congestive heart failure (< 1 month) History of inflammatory bowel disease Medical patient at bed rest Age 61-74 Arthroscopic surgery Major open surgery (> 45 min) Laparoscopic surgery (> 45 min) Malignancy Confined to bed (> 72 hours) Immobilizing plaster cast Central venous access Age >= 75 History of VTE Family history of VTE Factor V Leiden Prothrombin [id number] Lupus anticoagulant Anticardiolipin antibodies Elevated serum homocysteine Heparin-induced thrombocytopenia Other congenital or acquired thrombophilia Stroke (< 1 month) Elective arthroplasty Hip, pelvis, or leg fracture Acute spinal cord injury (< 1 month) Prophylaxis Regimen: Total Risk Factor Score Risk Level Prophylaxis Regimen 0-1 Low Early ambulation 2 Moderate Order ONE of the following: *Sequential Compression Device (SCD) *Heparin 5000 units SQ BID 3-4 Higher Order ONE of the following medications: *Heparin 5000 units SQ TID *Enoxaparin/Lovenox 40 mg SQ daily (WT < 150 kg, CrCl > 30 mL/min) *Enoxaparin/Lovenox 30 mg SQ daily (WT < 150 kg, CrCl > 10-29 mL/min) *Enoxaparin/Lovenox 30 mg SQ BID (WT < 150 kg, CrCl > 30 mL/min) AND/OR *Sequential Compression Device (SCD) 5 or more Highest Order ONE of the following medications: *Heparin 5000 units SQ TID (Preferred with Epidurals) *Enoxaparin/Lovenox 40 mg SQ daily (WT < 150 kg, CrCl > 30 mL/min) *Enoxaparin/Lovenox 30 mg SQ daily (WT < 150 kg, CrCl > 10-29 mL/min) *Enoxaparin/Lovenox 30 mg SQ BID (WT < 150 kg, CrCl > 30 mL/min) AND *Sequential Compression Device (SCD) Assessment and Plan - Plan This patient is a 78 y/o male with multiple medical problems including documented a fib, COPD, HTN, DLD, prostate cancer, obstructive uropathy s/p nephrostomy tubes b/l and recently discharged after having MDR UTI with pseudomonas, VRE, and Shawanda. Patient was being followed by ID Dr. Ng during that admission. Patient resides at a SNF and was brought into the ED today with Diarrhea and fever of 101. Patient denies having a significant cough but says because of copd he coughs here and there and is a chronic issue. No abd pain. 1. Sepsis 2/2 Complicated UTI Present on admission 2. C diff Colitis Patient presented with diarrhea, and fever, Elevated wbc ct 24, pt is tachycardic. C diff positive, u/a is positive for UTI. Previous cxs grew mdr pseudomonas, and VRE. Shawanda as well. Patient was d/c'd on po fluconazole as per ID. Blood cxs drawn, follow up blood and urine cxs PO vancomycin, IV zerbaxa, iv fluconazole. will follow up with ID for their recs. Continue IVF. 3. A fib Documented a fib, currently in NSR. No anticoagulation, pt with hematuria and ct abd shows stable perinephric hematoma 4. HTN Blood pressure currently under control. Monitor and adjust meds as needed. 5. COPD 6. Questionable PNA CXR show right lower lobe infiltrate. Patient with no cough currently. Received azithro, cefepime in ed. Duoneb txs as needed. If pt starts to have a cough then may restart atypical pna coverage. No dvt prophylaxis with pharmacotherapy, pt currently with hematuria and nephric hematoma
--- NOTE | 2018-08-30 16:05 | MB ---
cc: Tonny Ng MD DATE: 08/30/2018 REQUESTING PHYSICIAN: Dr. Reaves. REASON FOR CONSULTATION: Multidrug resistant urinary tract infection. HISTORY OF PRESENT ILLNESS: This is a 78-year-old white male who was recently discharged from the hospital after treatment for infection including sepsis and UTI with multidrug resistant bacteria. The patient had a positive urine culture with Pseudomonas, which was multidrug resistant along with VRE and Shawanda. He had bilateral nephrostomy tubes because of urinary obstruction. He was treated for the multidrug resistant bacteria in the urine and the urine culture cleared and the last culture showed Shawanda. He was subsequently discharged from the hospital on Diflucan for Shawanda. Prior to discharge from the hospital, the patient had a loose bowel movement. He was discharged from the hospital on 08/28/2018. The patient was [facility] because of fever and also loose stools. He reportedly had 5 episodes of loose stools last night. His white count is elevated at 24.9. He is afebrile. Blood pressure is normal. His stool C. difficile PCR is positive and stool toxin EPID 027 is negative. Currently, he states that he feels okay. He denies chills, nausea, or vomiting. The right nephrostomy bag has blood-tinged urine. The left nephrostomy urine is clear. The patient also had a chest x-ray, which shows minimal consolidation developing in the right lower lobe. He denies chest pain. CT scan of the abdomen and pelvis shows stable large right perinephric hematoma with a nephrostomy tube in good position. The patient reportedly had a temperature of 101 degrees last night. PAST MEDICAL HISTORY: Atrial fibrillation, COPD, recurrent urinary infection, hypertension, hyperlipidemia, kidney stones, essential hypertension, history of intertrochanteric fracture of the left hip, open left femoral fracture, parotid mass, prostate cancer, subdural hematoma. ALLERGIES: NO KNOWN DRUG ALLERGIES. THE PATIENT IS ALLERGIC TO CRAB. MEDICATIONS: 1. Ceftolozane/tazobactam. 2. Fluconazole. 3. Florinef. 4. Multiple vitamins. 5. Pilocarpine. 6. Vancomycin p.o. SOCIAL HISTORY: No tobacco. The patient never smoked cigarettes. No alcohol use. No illicit drugs. FAMILY HISTORY: Noncontributory. REVIEW OF SYSTEMS: All systems have been reviewed and are negative, except for as mentioned in history of present illness. PHYSICAL EXAMINATION: GENERAL: This is a slender male who is in no acute distress. He is awake and alert. VITAL SIGNS: Temperature 98.9, BP 118/62, respirations 18, heart rate 96. HEENT: Head is atraumatic. Extraocular movements grossly intact. Pupils reactive to light. No icterus. Oropharynx slightly dry mucosa. No lesions. NECK: Supple. No adenopathy. LUNGS: Decreased breath sounds. No audible rhonchi. HEART: Regular S1 and S2. No murmurs audible. ABDOMEN: Bowel sounds present. Soft, flat. No tenderness appreciated. RECTAL: Not performed. EXTREMITIES: No clubbing, cyanosis, or edema. SKIN: No rash. NEUROLOGIC: No gross focal findings. PSYCHIATRIC: The patient is calm and cooperative. LABORATORY DATA: Platelet count 341. WBC 24.9, 84% neutrophils, creatinine 2.21, estimated GFR 29, AST 55, ALT 45, alkaline phosphatase 127. IMPRESSION: 1. Clostridium difficile colitis, probably accounting for the elevated white blood cell count. 2. Fever, probably secondary to recurrent urinary infection. 3. Bilateral nephrostomy tubes for urinary obstruction placed during previous admission. Right perinephric hematoma. 4. Minimal consolidation noted in the right lower lobe on chest x-ray. However, the patient does not have symptoms suggesting pneumonia. RECOMMENDATIONS: 1. Continue to treat C. difficile with p.o. vancomycin. 2. Follow urine culture since patient had abnormal urinalysis. 3. Continue ceftolozane/tazobactam until urine culture results become available. 4. Monitor white blood cell count. 5. Monitor blood cultures. Thank you for this consultation. I will monitor the patient's progress along with you and will make further recommendations upon followup if necessary. MD NATHALIE Harman/nerissa/wally , 03:06 PM , 03:20 PM TERESA
[2018-08-30] MEDS: CEFTOLOZANE IV.SIG SCH ×2 (16:57→22:22)
[2018-08-30] MEDS: TAZOBACTAM IV.SIG SCH ×2 (16:57→22:22)
[2018-08-30] MEDS: SODIUM CHLOR 0.9% IV.SIG SCH ×2 (16:57→22:22)
[2018-08-30] MEDS: Pilocarpine HCl 5 MG Tablet PO SCH (21:29)
[2018-08-31] MEDS: CEFTOLOZANE IV.SIG SCH ×2 (05:20→19:30)
[2018-08-31] MEDS: SODIUM CHLOR 0.9% IV.SIG SCH ×2 (05:20→19:30)
[2018-08-31] MEDS: TAZOBACTAM IV.SIG SCH ×2 (05:20→19:30)
[2018-08-31 06:05] LABS: Baso % (Auto) 0.3 % (0.0-2.0); Eos # (Auto) 0.3 th/mm3 (0.0-0.4); Eos % (Auto) 2.3 % (0.0-4.0); Hematocrit 23.1 % (39.0-51.0); Hemoglobin 7.6 gm/dL (13.0-17.0); Lymph % (Auto) 7.4 % (9.0-44.0); Mean Corpuscular HGB Conc 32.7 % (32.0-36.0); Mean Corpuscular Hemoglobin 29.6 pg (27.0-34.0); Mean Corpuscular Volume 90.4 fL (80.0-100.0); Mono % (Auto) 7.3 % (0.0-8.0); Neut # (Auto) 10.9 th/mm3 (1.8-7.7); Neut % (Auto) 82.7 % (16.0-70.0); Platelet Count 361 th/mm3 (150-450); Red Blood Count 2.55 mil/mm3 (4.50-5.90); Red Cell Distribution Width 17.6 % (11.6-17.2); White Blood Count 13.2 th/mm3 (4.0-11.0)
[2018-08-31 06:27] LABS: Calcium 8.1 mg/dL (8.5-10.1); Carbon Dioxide 23.9 meq/L (21.0-32.0); Magnesium 1.7 mg/dL (1.5-2.5); Potassium 3.2 meq/L (3.5-5.1)
[2018-08-31] MEDS ORDERED: Fluconazole 100 MG Tablet PO SCH (09:00)
[2018-08-31] MEDS: Pilocarpine HCl 5 MG Tablet PO SCH ×2 (09:48→20:05)
[2018-08-31] MEDS: Multivit/Folic Acid/Minerals Chewable Tablets CHEW SCH (09:48)
--- NOTE | 2018-08-31 14:49 | P.PNID ---
Subjective Remarks: Patient is laying in bed. He has no complaints. White blood cell count is lower. Afebrile. Tells me he is not having much stools. Positive C. difficile toxin in the stools. 78-year-old white male who was recently discharged from the hospital after treatment for infection including sepsis and UTI with multidrug resistant bacteria. The patient had a positive urine culture with Pseudomonas, which was multidrug resistant along with VRE and Shawanda. He had bilateral nephrostomy tubes because of urinary obstruction. He was treated for the multidrug resistant bacteria in the urine and the urine culture cleared and the last culture showed Shawanda. He was subsequently discharged from the hospital on Diflucan for Shawanda. Prior to discharge from the hospital, the patient had a loose bowel movement. He was discharged from the hospital on 08/28/2018. The patient was sent to the emergency department from the [facility] facility because of fever and also loose stools. Past Medical History: PAST MEDICAL HISTORY: Atrial fibrillation, COPD, recurrent urinary infection, hypertension, hyperlipidemia, kidney stones, essential hypertension, history of intertrochanteric fracture of the left hip, open left femoral fracture, parotid mass, prostate cancer, subdural hematoma. Allergies/Adverse Reactions: Allergies crab Allergy (Intermediate, Verified 08/30/18 07:57) Rash Blue Shell crab causes severe rash all over face and neck. Needs PCN to help clear it up. Patient CAN eat Shrimp and clams, scallops, oysters without problems. Objective Vital Signs 08/30/18 15:29 08/30/18 17:15 08/30/18 17:46 Temperature 98 F Pulse Rate 82 88 87 Respiratory Rate 18 18 16 Blood Pressure 114/68 114/68 124/57 L Pulse Oximetry 98 98 98 08/30/18 20:00 08/30/18 23:58 08/31/18 00:00 Temperature 97.2 F L 98 F Pulse Rate 83 98 H 84 Respiratory Rate 18 17 Blood Pressure 136/76 126/70 Pulse Oximetry 98 95 08/31/18 04:00 08/31/18 08:00 08/31/18 12:00 Temperature 97.8 F 97.8 F Pulse Rate 91 H 85 85 Respiratory Rate 17 16 Blood Pressure 106/60 117/65 Pulse Oximetry 97 96 Intake & Output 08/30/18 08/31/18 08/31/18 18:59 06:59 18:59 Intake Total 1500 / 1500 1440 / 1440 Output Total 1250 / 1250 Balance 1500 / 1500 190 / 190 Weight 64.7 kg 66.5 kg Intake: IV 1500 / 1500 1200 / 1200 LR 1000 mL Inj 1,000 ML @ 100 1000 / 1000 mls/hr IV.CONT .Q10H [facility] Rx#: [id number] NS Inj 1,000 ML @ 125 mls/hr IV 1000 / 1000 .CONT .Q8H [facility] Rx#:[id number] Maxipime Inj 2,000 MG In NS Inj 100 / 100 100 ML @ 200 mls/hr IV.SIG ONCE ONE Rx#:[id number] Zerbaxa Inj 375 MG In NS Inj 100 / 100 200 / 200 100 ML @ 100 mls/hr IV.SIG Q8H [facility] Rx#:[id number] Diflucan 100 mg Premix Bag 50 50 / 50 ML @ 50 mls/hr IV.SIG Q24H [facility] Rx#:[id number] Oral 240 / 240 Output: Urine Amount (Stoma) 1250 / 1250 Nephrostomy Tube Left 400 / 400 Nephrostomy Tube Right 500 / 500 Pre-Hospital: Continent 350 / 350 Urostomy Right Other: # Voids 0 Date of Last Bowel Movement 08/31/18 08/31/18 # Bowel Movements 1 Weight On Admission 64.7 kg 08/30/18 08:09 Random Urine Urine Culture - Preliminary Group D Enterococcus 08/30/18 08:20 Blood - Peripheral Aerobic Blood Culture - Preliminary No growth in 1 day 08/30/18 08:20 Blood - Peripheral Anaerobic Blood Culture - Preliminary No growth in 1 day 08/30/18 08:30 Blood - Peripheral Aerobic Blood Culture - Preliminary No growth in 1 day 08/30/18 08:30 Blood - Peripheral Anaerobic Blood Culture - Preliminary No growth in 1 day Lab - Hematology Results 08/30/18 08/31/18 08:20 05:21 WBC 24.9 H 13.2 H RBC 3.48 L 2.55 L Hgb 10.6 L 7.6 L D Hct 31.8 L 23.1 L MCV 91.4 90.4 MCH 30.4 29.6 MCHC 33.3 32.7 RDW 17.8 H 17.6 H Plt Count 341 361 MPV 9.4 8.0 Prelim Diff (Auto) Manual diff required Neut % (Auto) 82.7 H Lymph % (Auto) 7.4 L [place] % (Auto) 7.3 Eos % (Auto) 2.3 Baso % (Auto) 0.3 Neut # (Auto) 10.9 H Lymph # (Auto) 1.0 [place] # (Auto) 1.0 H Eos # (Auto) 0.3 Baso # (Auto) 0.0 WBC Differential Manual diff final . Seg Neuts % (Manual) 84 H Band Neuts % (Manual) 4 Lymphocytes % (Manual) 7 L Monocytes % (Manual) 5 Abs Neuts (Manual) 21.9 H Differential Comment . Auto diff final Platelet Estimate Normal Platelet Morphology Normal Ovalocytes 1+ H [place] Cells 1+ H Lab - Chemistry Results 08/30/18 08/30/18 08/31/18 08:20 08:25 05:21 Sodium 144 150 H Potassium 3.6 3.2 L Chloride 110 H 117 H Carbon Dioxide 23.0 23.9 Anion Gap 11 9 BUN 43 H 43 H Creatinine 2.21 H 2.18 H Estimated GFR 29 L 29 L Random Glucose 81 92 Lactic Acid 1.4 Calcium 8.6 8.1 L Magnesium 1.7 1.7 Total Bilirubin 1.1 H AST 55 H ALT 45 Alkaline Phosphatase 127 H Total Protein 7.3 D Albumin 2.4 L Imaging: ITS Impressions Chest X-Ray 08/30/18 07:47 CONCLUSION: Minimal consolidation developing right lower lobe. Abdomen/Pelvis CT 08/30/18 08:18 CONCLUSION: 1. Stable large right perinephric hematoma with the nephrostomy tube in good position. 2. Left prostatectomy tube in good position without hematoma 3. Continued close clinical surveillance is suggested. 4. I do not see an etiology for the patient's fever other than the renal stones and hematoma. Physical Exam: GENERAL: Patient is in no acute distress. HEENT: Head is atraumatic. Extraocular movements grossly intact. Pupils reactive to light. No icterus. Oropharynx slightly dry mucosa. No lesions. NECK: Supple. No adenopathy. LUNGS: Decreased breath sounds. No audible rhonchi. HEART: Regular S1 and S2. No murmurs audible. ABDOMEN: Bowel sounds present. Soft, flat. No tenderness. EXTREMITIES: No clubbing, cyanosis, or edema. SKIN: No rash. NEUROLOGIC: No gross focal findings. PSYCHIATRIC: Calm and cooperative. Assessment and Plan - Plan IMPRESSION: 1. Clostridium difficile colitis, probably accounting for the elevated white blood cell count. 2. Fever, probably secondary to recurrent urinary infection. Urine culture has enterococcus. Previous urine culture had VRE. This was treated and resolved.. 3. Bilateral nephrostomy tubes for urinary obstruction placed during previous admission. Right perinephric hematoma. 4. Minimal consolidation noted in the right lower lobe on chest x-ray. However, the patient does not have symptoms suggesting pneumonia. RECOMMENDATIONS: 1. Continue to treat C. difficile with p.o. vancomycin. 2. Follow urine culture. 3. Stop ceftolozane/tazobactam. 4. Add Zyvox for possible VRE. Limited course for the urine infection. 5. Stop Fluconazole. 6. Monitor white blood cell count. 7. Monitor blood cultures.
[2018-08-31] MEDS: Linezolid 600 MG Tablet PO SCH (15:06)
[2018-08-31] MEDS ORDERED: Potassium Chloride 25 MEQ Effervescent Tablet PO ONE (16:03)
[2018-08-31] MEDS ORDERED: Magnesium Sulfate Inj 2 GM in Sodium Chlor 0.9% Inj 96 ML IV.SIG ONE (16:04)
--- NOTE | 2018-08-31 16:21 | P.PNIM ---
Subjective Interval history: Patient laying down in bed, diarrhea is improving. Other than loose stools no other complaints of the patient. Physical Exam Vital signs: Vital Signs 08/30/18 17:15 08/30/18 17:46 08/30/18 20:00 Temperature 98 F 97.2 F L Pulse Rate 88 87 83 Respiratory Rate 18 16 18 Blood Pressure 114/68 124/57 L 136/76 Pulse Oximetry 98 98 98 08/30/18 23:58 08/31/18 00:00 08/31/18 04:00 Temperature 98 F 97.8 F Pulse Rate 98 H 84 91 H Respiratory Rate 17 17 Blood Pressure 126/70 106/60 Pulse Oximetry 95 97 08/31/18 08:00 08/31/18 12:00 Temperature 97.8 F Pulse Rate 85 85 Respiratory Rate 16 Blood Pressure 117/65 Pulse Oximetry 96 Intake & Output 08/30/18 08/31/18 08/31/18 18:59 06:59 18:59 Intake Total 1500 / 1500 1440 / 1440 1000 / 1000 Output Total 1250 / 1250 Balance 1500 / 1500 190 / 190 1000 / 1000 Weight 64.7 kg 66.5 kg Intake: IV 1500 / 1500 1200 / 1200 1000 / 1000 LR 1000 mL Inj 1,000 ML @ 100 1000 / 1000 1000 / 1000 mls/hr IV.CONT .Q10H [facility] Rx#: [id number] NS Inj 1,000 ML @ 125 mls/hr IV 1000 / 1000 .CONT .Q8H [facility] Rx#:[id number] Maxipime Inj 2,000 MG In NS Inj 100 / 100 100 ML @ 200 mls/hr IV.SIG ONCE ONE Rx#:[id number] Zerbaxa Inj 375 MG In NS Inj 100 / 100 200 / 200 100 ML @ 100 mls/hr IV.SIG Q8H [facility] Rx#:[id number] Diflucan 100 mg Premix Bag 50 50 / 50 ML @ 50 mls/hr IV.SIG Q24H [facility] Rx#:[id number] Oral 240 / 240 Output: Urine Amount (Stoma) 1250 / 1250 Nephrostomy Tube Left 400 / 400 Nephrostomy Tube Right 500 / 500 Pre-Hospital: Continent 350 / 350 Urostomy Right Other: # Voids 0 Date of Last Bowel Movement 08/31/18 08/31/18 # Bowel Movements 1 Weight On Admission 64.7 kg Narrative: alert and oriented. S1 S2 tachycardic CTA b/L abd soft, nontender, non distended, normal bs, urostomy tube, b/l nephrostomy tubes, hematuria right no edema of exts, right elbow hematoma noted. Patient moves all 4 exts, sensation intact b/l Results - Labs CBC & Chem 7: 08/31/18 05:21 08/31/18 05:21 Laboratory Results - last 24 hr 08/30/18 08/30/18 08/31/18 08:09 08:09 05:21 WBC 13.2 H RBC 2.55 L Hgb 7.6 L D Hct 23.1 L MCV 90.4 MCH 29.6 MCHC 32.7 RDW 17.6 H Plt Count 361 MPV 8.0 Neut % (Auto) 82.7 H Lymph % (Auto) 7.4 L [place] % (Auto) 7.3 Eos % (Auto) 2.3 Baso % (Auto) 0.3 Neut # (Auto) 10.9 H Lymph # (Auto) 1.0 [place] # (Auto) 1.0 H Eos # (Auto) 0.3 Baso # (Auto) 0.0 WBC Differential . Differential Comment Auto diff final Sodium Potassium Chloride Carbon Dioxide Anion Gap BUN Creatinine Estimated GFR Random Glucose Calcium Magnesium Urine Color Yellow Urine Clarity Hazy H Urine pH 7.0 Ur Specific [place] 1.009 Urine Protein 100 H Urine Glucose (UA) Negative Urine Ketones Negative Urine Occult Blood Large H Urine Nitrate Negative Urine Bilirubin Negative Urine Urobilinogen Less than 2 Ur Leukocyte Esterase Large H Urine RBC 44 H Urine WBC 13 H Ur Squamous Epith Cells 1 Urine Bacteria Few H Urine Mucus Few H Urine Yeast Moderate H Ur Yeast w [place]pha[place] Rare H Micro UA Comment Culture indicated Urine Culture Comments Culture indicated Stool C.difficile Ag Positive H Stool C.difficile Toxin Positive H 08/31/18 05:21 WBC RBC Hgb Hct MCV MCH MCHC RDW Plt Count MPV Neut % (Auto) Lymph % (Auto) [place] % (Auto) Eos % (Auto) Baso % (Auto) Neut # (Auto) Lymph # (Auto) [place] # (Auto) Eos # (Auto) Baso # (Auto) WBC Differential Differential Comment Sodium 150 H Potassium 3.2 L Chloride 117 H Carbon Dioxide 23.9 Anion Gap 9 BUN 43 H Creatinine 2.18 H Estimated GFR 29 L Random Glucose 92 Calcium 8.1 L Magnesium 1.7 Urine Color Urine Clarity Urine pH Ur Specific [place] Urine Protein Urine Glucose (UA) Urine Ketones Urine Occult Blood Urine Nitrate Urine Bilirubin Urine Urobilinogen Ur Leukocyte Esterase Urine RBC Urine WBC Ur Squamous Epith Cells Urine Bacteria Urine Mucus Urine Yeast Ur Yeast w [place]phae Micro UA Comment Urine Culture Comments Stool C.difficile Ag Stool C.difficile Toxin Microbiology 08/30/18 08:09 Random Urine Urine Culture - Preliminary Group D Enterococcus 08/30/18 08:20 Blood - Peripheral Aerobic Blood Culture - Preliminary No growth in 1 day 08/30/18 08:20 Blood - Peripheral Anaerobic Blood Culture - Preliminary No growth in 1 day 08/30/18 08:30 Blood - Peripheral Aerobic Blood Culture - Preliminary No growth in 1 day 08/30/18 08:30 Blood - Peripheral Anaerobic Blood Culture - Preliminary No growth in 1 day Assessment and Plan - Plan This patient is a 78 y/o male with multiple medical problems including documented a fib, COPD, HTN, DLD, prostate cancer, obstructive uropathy s/p nephrostomy tubes b/l and recently discharged after having MDR UTI with pseudomonas, VRE, and Shawanda. Patient was being followed by ID Dr. Ng during that admission. Patient resides at a SNF and was brought into the ED today with Diarrhea and fever of 101. Patient denies having a significant cough but says because of copd he coughs here and there and is a chronic issue. No abd pain. 1. Sepsis 2/2 Complicated UTI Present on admission 2. C diff Colitis Patient presented with diarrhea, and fever, Elevated wbc ct 24, downtrending to 13 C diff positive, u/a is positive for UTI. Previous cxs grew mdr pseudomonas, and VRE. Shawanda as well. ID following, antibiotics adjusted. Blood cxs drawn, blood cxs neg, urine enterococcus Continue po vanco, zyvox for vre, fluconazole dcd by ID. Continue IVF. 3. Anemia Patient had a ct abd done yesterday, shows a stable right perinephric hematoma that is stable when compared to previous imaging as per the radiologist. His hgb did drop nearly 3 pts from yesterday to today. I will repeat a hemoglobin level today to see if it continues to drop. Partly could be dilutional however this is concerning. If it continues to drop repeat imaging may be necessary and surgical evaluation. 4. Hypernatremia/Hypokalemia Received 2 L NS in ed yesterday. Continue LR, follow up am labs. Electrolytes replaced. 5. A fib Documented a fib, currently in NSR. No anticoagulation, pt with hematuria and ct abd shows stable perinephric hematoma 6. HTN Blood pressure currently under control. Monitor and adjust meds as needed. 7. COPD Continue breathing txs as needed. 8. CKD Patients serum cr baseline is around 1.9 Currently 2.1 follow up am labs. No dvt prophylaxis with pharmacotherapy, pt currently with hematuria and nephric hematoma
[2018-08-31 16:56] LABS: Hematocrit 22.5 % (39.0-51.0); Hemoglobin 7.5 gm/dL (13.0-17.0)
[2018-09-01] MEDS: Linezolid 600 MG Tablet PO SCH ×2 (03:38→16:21)
[2018-09-01 08:06] LABS: Baso # (Auto) 0.1 th/mm3 (0.0-0.2); Baso % (Auto) 0.6 % (0.0-2.0); Eos # (Auto) 0.3 th/mm3 (0.0-0.4); Eos % (Auto) 3.1 % (0.0-4.0); Hematocrit 23.3 % (39.0-51.0); Hemoglobin 7.6 gm/dL (13.0-17.0); Lymph # (Auto) 1.1 th/mm3 (1.0-4.8); Lymph % (Auto) 12.5 % (9.0-44.0); Mean Corpuscular HGB Conc 32.5 % (32.0-36.0); Mean Corpuscular Hemoglobin 29.6 pg (27.0-34.0); Mean Corpuscular Volume 91.1 fL (80.0-100.0); Mean Platelet Volume 8.4 fL (7.0-11.0); Mono # (Auto) 0.8 th/mm3 (0.0-0.9); Mono % (Auto) 8.5 % (0.0-8.0); Neut # (Auto) 6.9 th/mm3 (1.8-7.7); Neut % (Auto) 75.3 % (16.0-70.0); Platelet Count 325 th/mm3 (150-450); Red Blood Count 2.56 mil/mm3 (4.50-5.90); Red Cell Distribution Width 17.7 % (11.6-17.2); White Blood Count 9.2 th/mm3 (4.0-11.0)
[2018-09-01 08:46] LABS: Calcium 8.2 mg/dL (8.5-10.1); Carbon Dioxide 22.9 meq/L (21.0-32.0); Magnesium 2.1 mg/dL (1.5-2.5); Potassium 3.4 meq/L (3.5-5.1)
[2018-09-01] MEDS: Multivit/Folic Acid/Minerals Chewable Tablets CHEW SCH (09:07)
[2018-09-01] MEDS: Pilocarpine HCl 5 MG Tablet PO SCH ×2 (09:12→23:32)
--- NOTE | 2018-09-01 11:54 | P.PNID ---
Subjective Remarks: Patient has no complaints. Reports that he feels okay. Reports 1 loose bowel movement today. Reported to have 2 loose bowel movements yesterday. White blood cell down to normal. Afebrile. Positive C. difficile toxin in the stools. 78-year-old white male who was recently discharged from the hospital after treatment for infection including sepsis and UTI with multidrug resistant bacteria. The patient had a positive urine culture with Pseudomonas, which was multidrug resistant along with VRE and Shawanda. He had bilateral nephrostomy tubes because of urinary obstruction. He was treated for the multidrug resistant bacteria in the urine and the urine culture cleared and the last culture showed Shawanda. He was subsequently discharged from the hospital on Diflucan for Shawanda. Prior to discharge from the hospital, the patient had a loose bowel movement. He was discharged from the hospital on 08/28/2018. The patient was sent to the emergency department from the senior living facility because of fever and also loose stools. Past Medical History: PAST MEDICAL HISTORY: Atrial fibrillation, COPD, recurrent urinary infection, hypertension, hyperlipidemia, kidney stones, essential hypertension, history of intertrochanteric fracture of the left hip, open left femoral fracture, parotid mass, prostate cancer, subdural hematoma. Allergies/Adverse Reactions: Allergies crab Allergy (Intermediate, Verified 08/30/18 07:57) Rash Blue Shell crab causes severe rash all over face and neck. Needs PCN to help clear it up. Patient CAN eat Shrimp and clams, scallops, oysters without problems. Objective Vital Signs 08/31/18 12:00 08/31/18 16:00 08/31/18 20:00 Temperature 97.8 F 98 F 98.6 F Pulse Rate 84 80 81 Respiratory Rate 14 16 16 Blood Pressure 144/72 H 117/63 121/68 Pulse Oximetry 98 99 99 09/01/18 00:00 09/01/18 04:00 09/01/18 08:00 Temperature 97.9 F 97.8 F 97.5 F L Pulse Rate 89 88 81 Respiratory Rate 16 16 18 Blood Pressure 128/70 119/72 152/81 H Pulse Oximetry 99 97 94 L Intake & Output 08/31/18 09/01/18 09/01/18 18:59 06:59 18:59 Intake Total 1300 / 1300 1262 / 1262 Output Total 1100 / 1100 750 / 750 Balance 200 / 200 512 / 512 Weight 68.1 kg Intake: IV 1000 / 1000 1142 / 1142 LR 1000 mL Inj 1,000 ML @ 100 1000 / 1000 1042 / 1042 mls/hr IV.CONT .Q10H [facility] Rx#: [id number] Magnesium Sulfate Inj 2 GM In 100 / 100 NS Inj 96 ML @ 50 mls/hr IV.SIG ONCE ONE Rx#:[id number] Oral 300 / 300 120 / 120 Output: Urine 200 / 200 Urine Amount (Stoma) 900 / 900 750 / 750 Nephrostomy Tube Left 600 / 600 100 / 100 Nephrostomy Tube Right 300 / 300 350 / 350 Pre-Hospital: Continent 300 / 300 Urostomy Right Other: # Voids 1 # Urine Diapers 0 Date of Last Bowel Movement 08/31/18 09/01/18 # Bowel Movements 1 1 08/30/18 08:20 Blood - Peripheral Aerobic Blood Culture - Preliminary No growth in 2 days 08/30/18 08:20 Blood - Peripheral Anaerobic Blood Culture - Preliminary No growth in 2 days 08/30/18 08:30 Blood - Peripheral Aerobic Blood Culture - Preliminary No growth in 2 days 08/30/18 08:30 Blood - Peripheral Anaerobic Blood Culture - Preliminary No growth in 2 days 08/30/18 08:09 Random Urine Urine Culture - Preliminary Group D Enterococcus Lab - Hematology Results 08/31/18 08/31/18 09/01/18 05:21 16:41 06:29 WBC 13.2 H 9.2 RBC 2.55 L 2.56 L Hgb 7.6 L D 7.5 L 7.6 L Hct 23.1 L 22.5 L 23.3 L MCV 90.4 91.1 MCH 29.6 29.6 MCHC 32.7 32.5 RDW 17.6 H 17.7 H Plt Count 361 325 MPV 8.0 8.4 Neut % (Auto) 82.7 H 75.3 H Lymph % (Auto) 7.4 L 12.5 [place] % (Auto) 7.3 8.5 H Eos % (Auto) 2.3 3.1 Baso % (Auto) 0.3 0.6 Neut # (Auto) 10.9 H 6.9 Lymph # (Auto) 1.0 1.1 [place] # (Auto) 1.0 H 0.8 Eos # (Auto) 0.3 0.3 Baso # (Auto) 0.0 0.1 WBC Differential . . Differential Comment Auto diff final Auto diff final Lab - Chemistry Results 08/31/18 09/01/18 05:21 06:29 Sodium 150 H 147 H Potassium 3.2 L 3.4 L Chloride 117 H 116 H Carbon Dioxide 23.9 22.9 Anion Gap 9 8 BUN 43 H 40 H Creatinine 2.18 H 2.01 H Estimated GFR 29 L 32 L Random Glucose 92 81 Calcium 8.1 L 8.2 L Magnesium 1.7 2.1 Imaging: ITS Impressions Chest X-Ray 08/30/18 07:47 CONCLUSION: Minimal consolidation developing right lower lobe. Abdomen/Pelvis CT 08/30/18 08:18 CONCLUSION: 1. Stable large right perinephric hematoma with the nephrostomy tube in good position. 2. Left prostatectomy tube in good position without hematoma 3. Continued close clinical surveillance is suggested. 4. I do not see an etiology for the patient's fever other than the renal stones and hematoma. Physical Exam: GENERAL: Patient is in no acute distress. HEENT: No icterus. Oropharynx slightly dry mucosa. No lesions. NECK: Supple. No adenopathy. LUNGS: Decreased breath sounds. No audible rhonchi. HEART: Regular S1 and S2. No murmurs audible. ABDOMEN: Bowel sounds present. Soft, flat. No tenderness. EXTREMITIES: No clubbing, cyanosis, or edema. SKIN: No rash. NEUROLOGIC: No gross focal findings. PSYCHIATRIC: Calm and cooperative. Assessment and Plan - Plan IMPRESSION: 1. Clostridium difficile colitis, probably accounting for the elevated white blood cell count. 2. Fever, probably secondary to recurrent urinary infection. Urine culture has enterococcus. Previous urine culture had VRE. This was treated and resolved.. 3. Bilateral nephrostomy tubes for urinary obstruction placed during previous admission. Right perinephric hematoma. 4. Minimal consolidation noted in the right lower lobe on chest x-ray. However, the patient does not have symptoms suggesting pneumonia. RECOMMENDATIONS: 1. Continue to treat C. difficile with p.o. vancomycin. Increase the dose to 250 mg p.o. 4 times daily. 2. Continue to follow urine culture. 3. Continue Zyvox. 4. Monitor white blood cell count. 6. Monitor temperature. 7. Monitor stools.
--- NOTE | 2018-09-01 15:44 | P.PNIM ---
Subjective Interval history: Patient seen and examined no back pain no hematuria hgb stable last 24hrs no chest pain or palpitation appears that his outpt is slowing down Physical Exam Vital signs: Last Vital Signs Temp 97.9 F 09/01/18 12:00 Pulse 86 09/01/18 12:00 Resp 18 09/01/18 12:00 BP 122/66 09/01/18 12:00 Pulse Ox 94 L 09/01/18 12:00 Intake & Output 08/30/18 08/31/18 09/01/18 09/02/18 06:59 06:59 06:59 06:59 Intake Total 2940 / 2940 2562 / 2562 Output Total 1250 / 1250 1850 / 1850 Balance 1690 / 1690 712 / 712 Weight 66.5 kg 68.1 kg gen: nad heent: eomi cvs: s1/s2 resp: cta gi: + ostomy with clear outpt. + bowel sounds, no guarding ext: no edema urology: + LEFT nephrostomy tube, no bruising on flanks Results Labs CBC & Chem 7: 09/01/18 06:29 09/01/18 06:29 Labs: Microbiology 08/30/18 08:09 Random Urine Urine Culture - Preliminary Group D Enterococcus Yeast - ID to follow 08/30/18 08:20 Blood - Peripheral Aerobic Blood Culture - Preliminary No growth in 2 days 08/30/18 08:20 Blood - Peripheral Anaerobic Blood Culture - Preliminary No growth in 2 days 08/30/18 08:30 Blood - Peripheral Aerobic Blood Culture - Preliminary No growth in 2 days 08/30/18 08:30 Blood - Peripheral Anaerobic Blood Culture - Preliminary No growth in 2 days Assessment and Plan Plan patient is a 78 y/o male with multiple medical problems including documented a fib, COPD, HTN, DLD, prostate cancer, obstructive uropathy s/p nephrostomy tubes b/l and recently discharged after having MDR UTI with pseudomonas, VRE, and Shawanda. Patient was being followed by ID Dr. Ng during that admission. Patient resides at a SNF and was brought into the ED with Diarrhea and fever of 101. Infectious disease: Sepsis 2/2 Complicated UTI, C diff Colitis - on presentation patient with diarrhea, and fever, Elevated wbc ct 24 with c. diff positive pcr. - u/a is positive for UTI. Previous cxs grew mdr pseudomonas, and VRE. Shawanda as well. - ID following, antibiotics adjusted. - Blood cxs drawn, blood cxs neg, urine enterococcus - Continue po vanco, zyvox for vre - Continue IVF to avoid dehydration. BUN/Cr slightly elevated but improved over hussein last 24-48hrs. monitor for now. - Urine cultures: enterococcus + yeast Hematology: Anemia - Patient had a ct abd done 08/30 which shows a stable right perinephric hematoma that is stable when compared to previous imaging as per the radiologist. - repeat hgb levels have been stable without new symptoms. continue to monitor for now as likely component of dilution and probably residual bleeding which has stablized. - will repeat CT abd/Pelvis since there was a drop significantly 08/31 Cardiology: Atrial fibrillation, HTN - HOLD A/C, pt with hematuria and ct abd shows stable perinephric hematoma - continue BP medications Pulmonary: COPD - Continue breathing txs as needed. Nephrology: CKD Patients serum cr baseline is around 1.9 follow up am labs. Code: FC dvt ppx: SCD dispo: medicine/surg. repeat CT abd/pelv to monitor hematoma and r/o RP bleeding. Continue oral C. diff treatment Progress Note: Quality VTE Deep Vein Thrombosis/Pulmonary Embolism Present on Admission: No
--- NOTE | 2018-09-01 19:50 | CT ---
EXAM DATE: 09/01/2018 7:34 PM EST AGE/SEX: 78 years / Male INDICATIONS: Hematuria. CLINICAL DATA: This is the patient's initial encounter. Patient reports that signs and symptoms have been present for 1 day and indicates a pain score of 4/10. MEDICAL/SURGICAL HISTORY: Carcinoma, prostatic. Carcinoma, bladder. Renal failure, acute. Ca rdiovascular disease. Nephrostomy tube, left. RADIATION DOSE: 9.71 CTDI (mGy) [place] [facility] [place]/30/2018. . TECHNIQUE: Multiple contiguous axial images were obtained through the abdomen. Images were obtained using multiple row detector helical technique. Using automated exposure control and adjustment of the mA and/or kV according to patient size, radiation dose was kept as low as reasonably achievable to o btain optimal diagnostic quality images. DICOM format image data is available electronically for rev iew and comparison. FINDINGS: Moderate right-sided pleural effusion and basilar airspace disease relatively stable. There is a new small left-sided pleural effusion. Moderate coronary calcifications. Cardiomegaly. Large calcified gallstone noted. Right-sided nephrostomy tube is unchanged. There is a infrarenal and perinephric hemorrhage which is relatively stable. Hemorrhage extends inferiorly in the retroperitoneum with involvement of the psoas . AP diameter of the hemorrhage is not to about 9.8 cm which is [facility] There is also a left-sided nephrostomy tube and a left ureteral stent extending into the urinary dive rsion with an ostomy noted in the right lower quadrant. Left renal calculi are stable. Postoperative prostatectomy and cystectomy. Mild anasarca. Previous screw fixation left hip. CONCLUSION: 1. Stable right-sided renal hematoma, perinephric hematoma and retroperitoneal hematoma involving th e psoas muscle compared with August 30. 2. Bilateral nephrostomy tubes are stable. Left-sided ureteral stent passing into conduit. Right low er quadrant ostomy. 3. Mild anasarca. No bowel obstruction. No free air. 4. New small left effusion. Stable moderate right effusion. Electronically signed by: Tarik Worrell MD Board Certified Radiologist 09/01/2018 7:49 PM EST
[2018-09-02] MEDS: Linezolid 600 MG Tablet PO SCH ×2 (05:18→15:28)
[2018-09-02 08:26] LABS: Hematocrit 23.3 % (39.0-51.0); Hemoglobin 7.6 gm/dL (13.0-17.0); Mean Corpuscular HGB Conc 32.5 % (32.0-36.0); Mean Corpuscular Hemoglobin 29.1 pg (27.0-34.0); Mean Corpuscular Volume 89.5 fL (80.0-100.0); Platelet Count 354 th/mm3 (150-450); Red Cell Distribution Width 17.1 % (11.6-17.2); White Blood Count 6.6 th/mm3 (4.0-11.0)
[2018-09-02 08:43] LABS: Calcium 8.1 mg/dL (8.5-10.1); Carbon Dioxide 26.4 meq/L (21.0-32.0); Magnesium 1.8 mg/dL (1.5-2.5); Potassium 3.1 meq/L (3.5-5.1)
[2018-09-02] MEDS ORDERED: Acetaminophen 325 MG Tablet PO PRN (10:07)
[2018-09-02] MEDS: Pilocarpine HCl 5 MG Tablet PO SCH ×2 (10:26→21:18)
[2018-09-02] MEDS: Multivit/Folic Acid/Minerals Chewable Tablets CHEW SCH (10:26)
[2018-09-02] MEDS ORDERED: Sodium Chlor 0.9% Inj 250 ML IV.SIG SCH (11:00)
--- NOTE | 2018-09-02 16:22 | P.PNIM ---
Subjective Interval history: This patient is a 78 y/o male with multiple medical problems including documented a fib, COPD, HTN, DLD, prostate cancer, obstructive uropathy s/p nephrostomy tubes b/l and recently discharged after having MDR UTI with pseudomonas, VRE, and Shawanda. Patient was being followed by ID Dr. Ng during that admission. Patient resides at a SNF and was brought into the ED today with Diarrhea and fever of 101. Patient denies having a significant cough but says because of copd he coughs here and there and is a chronic issue. No abd pain. The patient is a very poor historian, most of the information was obtained from the patient's chart and his son at bedside. Fam hx noncontributory 1-3 Patient laying down in bed, diarrhea is improving. Other than loose stools no other complaints of the patient. 1-4 Patient seen and examined no back pain no hematuria hgb stable last 24hrs no chest pain or palpitation appears that his outpt is slowing down 1-5 CONTINUE PO VANCO AND ZYVOX PER ID HX OF CHRONIC MDR UTI C.DIFF CONTINUE ON ORAL VANCO AM LABS NOT CLEARED BY ID FOR DC YET Will transfuse 2 units packed red blood cells due to the severe anemia and complex medical his Physical Exam Vital signs: Vital Signs 09/01/18 20:00 09/02/18 00:00 09/02/18 04:00 Temperature 98 F 97.8 F 97.7 F Pulse Rate 92 H 87 86 Respiratory Rate 17 17 17 Blood Pressure 151/76 H 116/61 150/97 H Pulse Oximetry 96 96 96 09/02/18 08:00 09/02/18 12:00 09/02/18 12:58 Temperature 97.6 F 97.3 F L 97.3 F L Pulse Rate 77 80 80 Respiratory Rate 20 28 H 28 H Blood Pressure 159/80 H 156/87 H 156/87 H Pulse Oximetry 97 09/02/18 16:13 Temperature 97.6 F Pulse Rate 83 Respiratory Rate 28 H Blood Pressure 163/84 H Pulse Oximetry 95 Intake & Output 09/01/18 09/02/18 09/02/18 18:59 06:59 18:59 Intake Total 838 / 838 900 / 900 1400 / 1400 Balance 838 / 838 900 / 900 1400 / 1400 Weight 68.6 kg Intake: IV 358 / 358 600 / 600 1000 / 1000 LR 1000 mL Inj 1,000 ML @ 100 358 / 358 600 / 600 1000 / 1000 mls/hr IV.CONT .Q10H [facility] Rx#: [id number] Oral 480 / 480 300 / 300 Intake (Blood Product) Amt 400 / 400 Rbc As-3 Leukoreduced Unit 0 / 0 [id number] Rbc As-3 Leukoreduced Unit 400 / 400 [id number] Other: Date of Last Bowel Movement 09/02/18 09/02/18 # Bowel Movements 3 2 Narrative: alert and oriented. Head is normocephalic atraumatic PERRLA EOMI no scleral icterus Oral mucosa is moist tongue is midline Neck is supple no JVD S1 S2 tachycardic CTA b/L abd soft, nontender, non distended, normal bs, urostomy tube, b/l nephrostomy tubes, hematuria right no edema of exts, right elbow hematoma noted. Patient moves all 4 exts, sensation intact b/l Insight and judgment is limited Mood and behavior somewhat appropriate Results - Labs CBC & Chem 7: 09/02/18 07:32 09/02/18 07:32 Laboratory Results - last 24 hr 08/30/18 09/02/18 09/02/18 08:09 07:32 07:32 WBC 6.6 RBC 2.60 L Hgb 7.6 L Hct 23.3 L MCV 89.5 MCH 29.1 MCHC 32.5 RDW 17.1 Plt Count 354 MPV 8.0 Sodium 145 Potassium 3.1 L Chloride 113 H Carbon Dioxide 26.4 Anion Gap 6 BUN 37 H Creatinine 1.90 H Estimated GFR 34 L Random Glucose 86 Calcium 8.1 L Magnesium 1.8 Urine Color Yellow Urine Clarity Hazy H Urine pH 7.0 Ur Specific Longs 1.009 Urine Protein 100 H Urine Glucose (UA) Negative Urine Ketones Negative Urine Occult Blood Large H Urine Nitrate Negative Urine Bilirubin Negative Urine Urobilinogen Less than 2 Ur Leukocyte Esterase Large H Urine RBC 44 H Urine WBC 13 H Ur Squamous Epith Cells 1 Urine Bacteria Few H Urine Mucus Few H Urine Yeast Moderate H Ur Yeast w Hyphae Rare H Micro UA Comment Culture indicated Urine Culture Comments Culture indicated Blood Type Antibody Screen MTS Gel Crossmatch 09/02/18 10:48 WBC RBC Hgb Hct MCV MCH MCHC RDW Plt Count MPV Sodium Potassium Chloride Carbon Dioxide Anion Gap BUN Creatinine Estimated GFR Random Glucose Calcium Magnesium Urine Color Urine Clarity Urine pH Ur Specific Longs Urine Protein Urine Glucose (UA) Urine Ketones Urine Occult Blood Urine Nitrate Urine Bilirubin Urine Urobilinogen Ur Leukocyte Esterase Urine RBC Urine WBC Ur Squamous Epith Cells Urine Bacteria Urine Mucus Urine Yeast Ur Yeast w Hyphae Micro UA Comment Urine Culture Comments Blood Type A Positive Antibody Screen Negative MTS Gel Crossmatch See Detail Microbiology 08/30/18 08:09 Random Urine Urine Culture - Final Enterococcus faecium VRE Shawanda tropicalis 08/30/18 08:20 Blood - Peripheral Aerobic Blood Culture - Preliminary No growth in 3 days 08/30/18 08:20 Blood - Peripheral Anaerobic Blood Culture - Preliminary No growth in 3 days 08/30/18 08:30 Blood - Peripheral Aerobic Blood Culture - Preliminary No growth in 3 days 08/30/18 08:30 Blood - Peripheral Anaerobic Blood Culture - Preliminary No growth in 3 days - Imaging Impressions Abdomen/Pelvis CT 09/01/18 00:00 CONCLUSION: 1. Stable right-sided renal hematoma, perinephric hematoma and retroperitoneal hematoma involving the psoas muscle compared with August 30. 2. Bilateral nephrostomy tubes are stable. Left-sided ureteral stent passing into conduit. Right lower quadrant ostomy. 3. Mild anasarca. No bowel obstruction. No free air. 4. New small left effusion. Stable moderate right effusion. Assessment and Plan - Plan patient is a 78 y/o male with multiple medical problems including documented a fib, COPD, HTN, DLD, prostate cancer, obstructive uropathy s/p nephrostomy tubes b/l and recently discharged after having MDR UTI with pseudomonas, VRE, and Shawanda. Patient was being followed by ID Dr. Ng during that admission. Patient resides at a SNF and was brought into the ED with Diarrhea and fever of 101. Infectious disease: Sepsis 2/2 Complicated UTI, C diff Colitis - on presentation patient with diarrhea, and fever, Elevated wbc ct 24 with c. diff positive pcr. - u/a is positive for UTI. Previous cxs grew mdr pseudomonas, and VRE. Shawanda as well. - ID following, antibiotics adjusted. - Blood cxs drawn, blood cxs neg, urine enterococcus - Continue po vanco for CDT, zyvox for vre - Continue IVF to avoid dehydration. BUN/Cr slightly elevated but improved over hussein last 24-48hrs. monitor for now. - Urine cultures: enterococcus + yeast Hematology: Anemia - Patient had a ct abd done 1 which shows a stable right perinephric hematoma that is stable when compared to previous imaging as per the radiologist. - repeat hgb levels have been stable without new symptoms. continue to monitor for now as likely component of dilution and probably residual bleeding which has stablized. - will repeat CT abd/Pelvis since there was a drop significantly /-remains stable per radiology report-- we will transfuse 2 units packed red blood cells today September 02 Cardiology: Atrial fibrillation, HTN - HOLD A/C, pt with hematuria and ct abd shows stable perinephric hematoma - continue BP medications Pulmonary: COPD - Continue breathing txs as needed. Nephrology: CKD Patients serum cr baseline is around 1.9 follow up am labs. Code: FC dvt ppx: SCD dispo: medicine/surg. repeat CT abd/pelv to monitor hematoma and r/o RP bleeding. Continue oral C. diff treatment remained stable per radiology report Transfuse 2 units packed red blood cells today September 02 We will get a.m. labs Code Status: Full code Discussed Condition With: RN and patient and case management Discharge Planning: Pending improvement hopefully later this week back to SNF
[2018-09-03] MEDS: Linezolid 600 MG Tablet PO SCH ×2 (03:56→14:22)
[2018-09-03 06:50] LABS: Baso # (Auto) 0.1 th/mm3 (0.0-0.2); Baso % (Auto) 0.8 % (0.0-2.0); Eos # (Auto) 0.3 th/mm3 (0.0-0.4); Eos % (Auto) 4.3 % (0.0-4.0); Hematocrit 31.5 % (39.0-51.0); Hemoglobin 10.7 gm/dL (13.0-17.0); Lymph # (Auto) 1.2 th/mm3 (1.0-4.8); Lymph % (Auto) 15.7 % (9.0-44.0); Mean Corpuscular HGB Conc 33.8 % (32.0-36.0); Mean Corpuscular Hemoglobin 29.4 pg (27.0-34.0); Mean Corpuscular Volume 86.9 fL (80.0-100.0); Mean Platelet Volume 7.9 fL (7.0-11.0); Mono # (Auto) 0.9 th/mm3 (0.0-0.9); Mono % (Auto) 11.4 % (0.0-8.0); Neut # (Auto) 5.2 th/mm3 (1.8-7.7); Neut % (Auto) 67.8 % (16.0-70.0); Platelet Count 341 th/mm3 (150-450); Red Blood Count 3.63 mil/mm3 (4.50-5.90); White Blood Count 7.7 th/mm3 (4.0-11.0)
[2018-09-03 07:17] LABS: Alkaline Phosphatase 128 U/L (45-117); Total Protein 6.4 g/dL (6.4-8.2)
[2018-09-03 07:33] LABS: Alanine Aminotransferase 51 U/L (12-78); Albumin 2.3 g/dL (3.4-5.0); Anion Gap 8 meq/L (5-15); Aspartate Aminotransferase 61 U/L (15-37); Blood Urea Nitrogen 34 mg/dL (7-18); Calcium 7.8 mg/dL (8.5-10.1); Carbon Dioxide 26.8 meq/L (21.0-32.0); Chloride 110 meq/L (98-107); Glomerular Filtration Rate 37 mL/min (>89); Glucose,Random 87 mg/dL (74-106); Magnesium 1.7 mg/dL (1.5-2.5); Sodium 145 meq/L (136-145)
[2018-09-03] MEDS: Pilocarpine HCl 5 MG Tablet PO SCH ×2 (08:23→21:47)
[2018-09-03] MEDS: Multivit/Folic Acid/Minerals Chewable Tablets CHEW SCH (08:23)
--- NOTE | 2018-09-03 15:09 | P.PNIM ---
Subjective Interval history: Follow-up for C. difficile colitis, possible recurrent urinary tract infection. Patient is currently doing well. He continues to have diarrhea. Does not know how many times. No fever or chills. Physical Exam Vital signs: Last Vital Signs Temp 97.7 F 09/03/18 12:00 Pulse 82 09/03/18 12:00 Resp 18 09/03/18 12:00 BP 183/100 H 09/03/18 12:00 Pulse Ox 96 09/03/18 12:00 Intake & Output 09/01/18 09/02/18 09/03/18 09/04/18 06:59 06:59 06:59 06:59 Intake Total 2562 / 2562 1738 / 1738 3050 / 3050 1000 / 1000 Output Total 1850 / 1850 3250 / 3250 Balance 712 / 712 1738 / 1738 -200 / -200 1000 / 1000 Weight 68.1 kg 68.6 kg 69.4 kg Narrative: GENERAL: Alert, NAD. SKIN: Warm and dry. HEAD: Normocephalic. EYES: No scleral icterus. No injection or drainage. NECK: Supple, trachea midline. No JVD or lymphadenopathy. CARDIOVASCULAR: Regular rate and rhythm without murmurs, gallops, or rubs. RESPIRATORY: Breath sounds equal bilaterally. No accessory muscle use. GASTROINTESTINAL: Abdomen soft, non-tender, nondistended. MUSCULOSKELETAL: No cyanosis, or edema. BACK: Nontender without obvious deformity. No CVA tenderness. Results Labs CBC & Chem 7: 09/03/18 06:24 09/03/18 06:24 Labs: Microbiology 08/30/18 08:20 Blood - Peripheral Aerobic Blood Culture - Preliminary No growth in 4 days 08/30/18 08:20 Blood - Peripheral Anaerobic Blood Culture - Preliminary No growth in 4 days 08/30/18 08:30 Blood - Peripheral Aerobic Blood Culture - Preliminary No growth in 4 days 08/30/18 08:30 Blood - Peripheral Anaerobic Blood Culture - Preliminary No growth in 4 days 08/30/18 08:09 Random Urine Urine Culture - Final Enterococcus faecium VRE Shawanda tropicalis Assessment and Plan Plan Mr. Gordon is a pleasant 78-year-old male with a history of A. fib, COPD, prostate cancer as well as multidrug resistance UTI who presents to the emergency department on 08/30/2018 due to diarrhea and fever of 101 F. He was positive for C. difficile colitis. Infectious disease was consulted. Sepsis, present on admission (Tachycardia, WBC 24.9, Colitis/UTI). C. Diff colitis Complicated UTI Previous cxs grew mdr pseudomonas, and VRE. Shawanda as well. - ID following - currently on Zyvox and PO Vancomycin. - Clinically improving. Anemia - possibly due to hemodilution -Hgb 10.6 on admissioin and dropped to 7.5. Received two units of PRBCs. -Currently stable around 10.2, 10.7. Hypertension -Possibly due to Fludrocortisone. Not sure how long he has been on this medication -Will change Fludrocortisone to 0.1mg every other day. COPD - Continue breathing txs as needed. CKD stage III Creatinine 2.21 --> 1.79 which is around baseline. Full code. SCDs. Discharge plan: Probable discharge back to [facility] tomorrow 09/04/2018. Progress Note: Quality VTE Deep Vein Thrombosis/Pulmonary Embolism Present on Admission: No
[2018-09-04] MEDS: Linezolid 600 MG Tablet PO SCH ×2 (03:08→16:52)
[2018-09-04] MEDS: Multivit/Folic Acid/Minerals Chewable Tablets CHEW SCH (09:45)
[2018-09-04] MEDS: Pilocarpine HCl 5 MG Tablet PO SCH ×2 (09:45→21:47)
--- NOTE | 2018-09-04 17:03 | P.PNIM ---
Subjective Interval history: Follow-up for C. difficile colitis, possible recurrent urinary tract infection. Patient is currently doing well. No fever, chills. Results Labs CBC & Chem 7: 09/06/18 06:19 09/06/18 06:19 Labs: Microbiology 08/30/18 08:20 Blood - Peripheral Aerobic Blood Culture - Final No growth in 5 days 08/30/18 08:20 Blood - Peripheral Anaerobic Blood Culture - Final No growth in 5 days 08/30/18 08:30 Blood - Peripheral Aerobic Blood Culture - Final No growth in 5 days 08/30/18 08:30 Blood - Peripheral Anaerobic Blood Culture - Final No growth in 5 days Assessment and Plan Plan Mr. Gordon is a pleasant 78-year-old male with a history of A. fib, COPD, prostate cancer as well as multidrug resistance UTI who presents to the emergency department on 08/30/2018 due to diarrhea and fever of 101 F. He was positive for C. difficile colitis. Infectious disease was consulted. Sepsis, present on admission (Tachycardia, WBC 24.9, Colitis/UTI). C. Diff colitis Complicated UTI Previous cxs grew mdr pseudomonas, and VRE. Shawanda as well. - ID following - currently on Zyvox and PO Vancomycin. - Clinically improving. Will ask ID for final recs. Anemia - possibly due to hemodilution -Hgb 10.6 on admissioin and dropped to 7.5. Received two units of PRBCs. -Currently stable around 10.2, 10.7. Hypertension -Possibly due to Fludrocortisone. Not sure how long he has been on this medication -Changed Fludrocortisone to 0.1mg every other day - BP is better today ( systolic in the 150s). COPD - Continue breathing txs as needed. CKD stage III Creatinine 2.21 --> 1.79 which is around baseline. Full code. SCDs. Discharge plan: Probable discharge back to [facility] within next day or so. Progress Note: Quality VTE Deep Vein Thrombosis/Pulmonary Embolism Present on Admission: No
--- NOTE | 2018-09-04 17:23 | P.PNID ---
Subjective Remarks: Patient has no complaints. Reports that his stools has improved. Afebrile. Positive C. difficile toxin in the stools. 78-year-old white male who was recently discharged from the hospital after treatment for infection including sepsis and UTI with multidrug resistant bacteria. The patient had a positive urine culture with Pseudomonas, which was multidrug resistant along with VRE and Shawanda. He had bilateral nephrostomy tubes because of urinary obstruction. He was treated for the multidrug resistant bacteria in the urine and the urine culture cleared and the last culture showed Shawanda. He was subsequently discharged from the hospital on Diflucan for Shawanda. Prior to discharge from the hospital, the patient had a loose bowel movement. He was discharged from the hospital on 08/28/2018. The patient was sent to the emergency department from the [facility] because of fever and also loose stools. Past Medical History: PAST MEDICAL HISTORY: Atrial fibrillation, COPD, recurrent urinary infection, hypertension, hyperlipidemia, kidney stones, essential hypertension, history of intertrochanteric fracture of the left hip, open left femoral fracture, parotid mass, prostate cancer, subdural hematoma. Allergies/Adverse Reactions: Allergies crab Allergy (Intermediate, Verified 08/30/18 07:57) Rash Blue Shell crab causes severe rash all over face and neck. Needs PCN to help clear it up. Patient CAN eat Shrimp and clams, scallops, oysters without problems. Objective Vital Signs 09/03/18 20:00 09/04/18 00:00 09/04/18 04:00 Temperature 98.1 F 99.4 F 98.9 F Pulse Rate 95 H 111 H 76 Respiratory Rate 17 15 19 Blood Pressure 164/88 H 150/74 H 160/94 H Pulse Oximetry 96 94 L 94 L 09/04/18 08:00 09/04/18 12:00 09/04/18 16:00 Temperature 98.0 F 97.4 F L 97.8 F Pulse Rate 90 71 69 Respiratory Rate 17 18 18 Blood Pressure 152/92 H 150/78 H 144/84 H Pulse Oximetry 95 96 97 Intake & Output 09/03/18 09/04/18 09/04/18 18:59 06:59 18:59 Intake Total 1480 / 1480 1158 / 1158 1000 / 1000 Output Total 2250 / 2250 2400 / 2400 Balance -770 / -770 -1242 / -1242 1000 / 1000 Weight 69 kg Intake: IV 1000 / 1000 918 / 918 1000 / 1000 LR 1000 mL Inj 1,000 ML @ 100 1000 / 1000 918 / 918 1000 / 1000 mls/hr IV.CONT .Q10H [facility] Rx#: [id number] Oral 480 / 480 240 / 240 Output: Urine Amount (Catheter) 600 / 600 Suprapubic 600 / 600 Urine Amount (Stoma) 2250 / 2250 1800 / 1800 Nephrostomy Tube Left 900 / 900 1100 / 1100 Nephrostomy Tube Right 700 / 700 700 / 700 Pre-Hospital: Continent 650 / 650 Urostomy Right Other: Date of Last Bowel Movement 09/03/18 # Incontinent Bowel Movements 3 08/30/18 08:20 Blood - Peripheral Aerobic Blood Culture - Final No growth in 5 days 08/30/18 08:20 Blood - Peripheral Anaerobic Blood Culture - Final No growth in 5 days 08/30/18 08:30 Blood - Peripheral Aerobic Blood Culture - Final No growth in 5 days 08/30/18 08:30 Blood - Peripheral Anaerobic Blood Culture - Final No growth in 5 days 08/30/18 08:09 Random Urine Urine Culture - Final Enterococcus faecium VRE Shawanda tropicalis Lab - Hematology Results 09/02/18 09/02/18 09/03/18 20:27 20:27 06:24 WBC 7.7 RBC 3.63 L Hgb 10.2 L D 10.7 L Hct 30.0 L 31.5 L MCV 86.9 MCH 29.4 MCHC 33.8 RDW 17.0 Plt Count 341 MPV 7.9 Neut % (Auto) 67.8 Lymph % (Auto) 15.7 [place] % (Auto) 11.4 H Eos % (Auto) 4.3 H Baso % (Auto) 0.8 Neut # (Auto) 5.2 Lymph # (Auto) 1.2 [place] # (Auto) 0.9 Eos # (Auto) 0.3 Baso # (Auto) 0.1 WBC Differential . Differential Comment Auto diff final Lab - Chemistry Results 09/03/18 06:24 Sodium 145 Potassium 3.0 L Chloride 110 H Carbon Dioxide 26.8 Anion Gap 8 BUN 34 H Creatinine 1.79 H Estimated GFR 37 L Random Glucose 87 Calcium 7.8 L Phosphorus 2.0 L Magnesium 1.7 Total Bilirubin 1.3 H AST 61 H ALT 51 Alkaline Phosphatase 128 H Total Protein 6.4 D Albumin 2.3 L Imaging: ITS Impressions Chest X-Ray 08/30/18 07:47 CONCLUSION: Minimal consolidation developing right lower lobe. Abdomen/Pelvis CT 09/01/18 00:00 CONCLUSION: 1. Stable right-sided renal hematoma, perinephric hematoma and retroperitoneal hematoma involving the psoas muscle compared with August 30. 2. Bilateral nephrostomy tubes are stable. Left-sided ureteral stent passing into conduit. Right lower quadrant ostomy. 3. Mild anasarca. No bowel obstruction. No free air. 4. New small left effusion. Stable moderate right effusion. Physical Exam: GENERAL: Patient is in no acute distress. HEENT: No icterus. Oropharynx slightly dry mucosa. No lesions. NECK: Supple. No adenopathy. LUNGS: Decreased breath sounds. No audible rhonchi. HEART: Regular S1 and S2. No murmurs audible. ABDOMEN: Bowel sounds present. Soft, flat. No tenderness. EXTREMITIES: No clubbing, cyanosis, or edema. SKIN: No rash. NEUROLOGIC: No gross focal findings. PSYCHIATRIC: Calm and cooperative. Assessment and Plan - Plan IMPRESSION: 1. Clostridium difficile colitis, probably accounting for the elevated white blood cell count. 2. Fever, probably secondary to recurrent urinary infection. Urine culture has enterococcus. Previous urine culture had VRE. This was treated and resolved. 3. Bilateral nephrostomy tubes for urinary obstruction placed during previous admission. Right perinephric hematoma. 4. Minimal consolidation noted in the right lower lobe on chest x-ray. However, the patient does not have symptoms suggesting pneumonia. RECOMMENDATIONS: 1. Continue to treat C. difficile with p.o. vancomycin. Increase the dose to 250 mg p.o. 4 times daily for 10 more days. 2. Continue Zyvox. 3. Repeat the urine culture to check for clearance of the VRE. (ordered) If the patient is discharged to retirement urine culture should be followed. Stop Zyvox if the urine culture has no VRE. 4. Give PO fluconazole for shawanda.
[2018-09-04] MEDS: Fluconazole 100 MG Tablet PO SCH (18:29)
[2018-09-05] MEDS: Linezolid 600 MG Tablet PO SCH ×2 (03:37→15:11)
[2018-09-05] MEDS: Fluconazole 100 MG Tablet PO SCH (08:19)
[2018-09-05] MEDS: Multivit/Folic Acid/Minerals Chewable Tablets CHEW SCH (08:19)
[2018-09-05] MEDS: Pilocarpine HCl 5 MG Tablet PO SCH ×2 (08:19→21:38)
--- NOTE | 2018-09-05 16:16 | P.PNIM ---
Subjective Interval history: Patient laying down in bed. Currently without any significant complaints. Physical Exam Vital signs: Vital Signs 09/04/18 20:00 09/05/18 00:00 09/05/18 04:00 Temperature 98.7 F 97.5 F L 97.9 F Pulse Rate 81 81 99 H Respiratory Rate 15 14 17 Blood Pressure 158/88 H 157/98 H 162/93 H Pulse Oximetry 95 93 L 93 L 09/05/18 08:00 09/05/18 12:00 Temperature 97.3 F L 98 F Pulse Rate 86 75 Respiratory Rate 20 20 Blood Pressure 134/93 H Pulse Oximetry 95 95 Intake & Output 09/04/18 09/05/18 09/05/18 18:59 06:59 18:59 Intake Total 1480 / 1480 1240 / 1240 1000 / 1000 Output Total 150 / 150 1800 / 1800 Balance 1330 / 1330 -560 / -560 1000 / 1000 Weight 68.7 kg Intake: IV 1000 / 1000 1000 / 1000 1000 / 1000 LR 1000 mL Inj 1,000 ML @ 100 1000 / 1000 1000 / 1000 1000 / 1000 mls/hr IV.CONT .Q10H [facility] Rx#: [id number] Oral 480 / 480 240 / 240 Output: Urine 150 / 150 Urine Amount (Catheter) 250 / 250 Suprapubic 250 / 250 Urine Amount (Stoma) 1550 / 1550 Nephrostomy Tube Left 1100 / 1100 Nephrostomy Tube Right 450 / 450 Other: Date of Last Bowel Movement 09/04/18 09/04/18 # Bowel Movements 1 # Incontinent Bowel Movements 2 Narrative: alert and oriented. S1 S2 tachycardic CTA b/L abd soft, nontender, non distended, normal bs, urostomy tube, b/l nephrostomy tubes no edema of exts, bruising of the right upper extremity. Patient moves all 4 exts, sensation intact b/l - Urinary Catheter Management Suprapubic Cath placed during this visit: no Results - Labs CBC & Chem 7: 09/03/18 06:24 09/03/18 06:24 Microbiology 09/04/18 19:27 Catheterized Urine Urine Culture - Preliminary Immature growth - reincubate Assessment and Plan - Plan This patient is a 78 y/o male with multiple medical problems including documented a fib, COPD, HTN, DLD, prostate cancer, obstructive uropathy s/p nephrostomy tubes b/l and recently discharged after having MDR UTI with pseudomonas, VRE, and Shawanda. Patient was being followed by ID Dr. Ng during that admission. Patient resides at a SNF and was brought into the ED today with Diarrhea and fever of 101. Patient denies having a significant cough but says because of copd he coughs here and there and is a chronic issue. No abd pain. 1. Sepsis 2/2 Complicated UTI Present on admission 2. C diff Colitis Patient presented with diarrhea, and fever, Elevated wbc ct 24 on admission, now normalized Patient is febrile. C diff positive, u/a is positive for UTI, cultures growing enterococcus. Previous cxs grew mdr pseudomonas, and VRE. Shawanda as well. Infectious disease following. Blood cultures are negative. Continue po vanco, dose increased. Zyvox for vre, fluconazole for Shawanda. 3. Anemia Patient had a ct abd done yesterday, shows a stable right perinephric hematoma that is stable when compared to previous imaging as per the radiologist. Received 2 units PRBCs, patient's hemoglobin has remained stable over the past few days around 10.7 as of 2 days ago. 5. A fib Documented a fib, currently in NSR. No anticoagulation, pt with hematuria and ct abd shows stable perinephric hematoma 6. HTN Patient started on Norvasc today. We will continue to monitor his blood pressure. 7. COPD Continue breathing txs as needed. 8. CKD Patients serum cr baseline is around 1.9 Currently 1.79 follow up am labs. No dvt prophylaxis with pharmacotherapy, pt currently with hematuria and nephric hematoma Patient will likely be discharged tomorrow a.m. after discussing case with infectious disease.
[2018-09-05] MEDS: amLODIPine 5 MG Tablet PO SCH (17:37)
[2018-09-06] MEDS: Linezolid 600 MG Tablet PO SCH (02:30)
[2018-09-06 08:11] LABS: Baso # (Auto) 0.1 th/mm3 (0.0-0.2); Baso % (Auto) 0.8 % (0.0-2.0); Eos # (Auto) 0.2 th/mm3 (0.0-0.4); Eos % (Auto) 2.3 % (0.0-4.0); Hemoglobin 11.6 gm/dL (13.0-17.0); Lymph # (Auto) 0.9 th/mm3 (1.0-4.8); Lymph % (Auto) 11.8 % (9.0-44.0); Mean Corpuscular Hemoglobin 29.8 pg (27.0-34.0); Mean Corpuscular Volume 87.5 fL (80.0-100.0); Mean Platelet Volume 7.8 fL (7.0-11.0); Mono # (Auto) 0.8 th/mm3 (0.0-0.9); Mono % (Auto) 11.3 % (0.0-8.0); Neut # (Auto) 5.5 th/mm3 (1.8-7.7); Neut % (Auto) 73.8 % (16.0-70.0); Platelet Count 300 th/mm3 (150-450); Red Blood Count 3.89 mil/mm3 (4.50-5.90); Red Cell Distribution Width 16.7 % (11.6-17.2); White Blood Count 7.4 th/mm3 (4.0-11.0)
[2018-09-06 08:35] LABS: Calcium 8.2 mg/dL (8.5-10.1); Carbon Dioxide 29.4 meq/L (21.0-32.0); Magnesium 1.6 mg/dL (1.5-2.5)
[2018-09-06 08:42] LABS: Potassium 2.9 meq/L (3.5-5.1)
[2018-09-06] MEDS: Pilocarpine HCl 5 MG Tablet PO SCH (09:22)
[2018-09-06] MEDS: Fluconazole 100 MG Tablet PO SCH (09:22)
[2018-09-06] MEDS: amLODIPine 5 MG Tablet PO SCH (09:22)
[2018-09-06] MEDS: Multivit/Folic Acid/Minerals Chewable Tablets CHEW SCH (09:22)
[2018-09-06 09:29] VITALS: RESP 19
--- NOTE | 2018-09-06 09:51 | P.DS ---
Date of admission: 08/30/18 11:02 Primary care physician: Jaime Pérez MD Brief History from admission: This patient is a 78 y/o male with multiple medical problems including documented a fib, COPD, HTN, DLD, prostate cancer, obstructive uropathy s/p nephrostomy tubes b/l and recently discharged after having MDR UTI with pseudomonas, VRE, and Shawanda. Patient was being followed by AMY Ng during that admission. Patient resides at a SNF and was brought into the ED today with Diarrhea and fever of 101. Patient denies having a significant cough but says because of copd he coughs here and there and is a chronic issue. No abd pain. The patient is a very poor historian, most of the information was obtained from the patient's chart and his son at bedside. Fam hx noncontributory DS: Summary Hospital Course: This patient is a 78 y/o male with multiple medical problems including documented a fib, COPD, HTN, DLD, prostate cancer, obstructive uropathy s/p nephrostomy tubes b/l and recently discharged after having MDR UTI with pseudomonas, VRE, and Shawanda. Patient was being followed by AMY Ng during that admission. Patient resides at a SNF and was brought into the ED today with Diarrhea and fever of 101. Patient denies having a significant cough but says because of copd he coughs here and there and is a chronic issue. No abd pain. 1. Sepsis 2/2 Complicated UTI Present on admission 2. C diff Colitis Patient presented with diarrhea, and fever, Elevated wbc ct 24 on admission, now normalized Patient is afebrile since initially presenting to the hospital. C diff was positive, u/a is positive for UTI, cultures growing VRE, Shawanda. Previous cxs grew mdr pseudomonas, and VRE, Shawanda as well. Infectious disease followed the patient throughout the hospitalization. After the initiation of IV fluids and antibiotics the patient symptoms of diarrhea have improved significantly. Blood cultures are negative. Patient will be continued on p.o. vancomycin for 10 more days, Zyvox and Shawanda should be continued for 3 more days. 3. Asymptomatic anemia possibly secondary to blood loss from hematuria 4. Bilateral nephrostomy tubes Patient had a ct abd done yesterday, shows a stable right perinephric hematoma that is stable when compared to previous imaging as per the radiologist. The right nephrostomy tube is still putting out hematuria. Received 2 units PRBCs, patient's hemoglobin has remained stable over the past few days around 11.6 as of today. I recommended the patient follow-up outpatient with urology in the next 1-2 weeks for further management recommendations of the nephrostomy tubes. 5. A fib Documented a fib, currently in NSR. No anticoagulation, pt with hematuria and ct abd shows stable perinephric hematoma 6. HTN Patient started on Norvasc during hospitalization due to elevated blood pressure. This medication will be continued on discharge, continue to monitor the patient's blood pressure and adjust his medications as needed. 7. COPD Continue ipratropium/albuterol on discharge. 8. CKD As per the augmentation the patient's serum creatinine at baseline was around 1.9 Current serum creatinine is 1.66 as of today. Patient follow-up with her primary care doctor in the next 1-2 weeks. He should also have continued management outpatient with a computer network specialist given his chronic kidney disease. - Time Spent with Patient Total time spent providing and/or coordinating discharge services: Greater than 30 minutes - Quality: VTE Deep Vein Thrombosis/Pulmonary Embolism Present on Admission: No Exam Vital signs: Vital Signs 09/05/18 12:00 09/05/18 16:00 09/05/18 18:59 Temperature 98 F 98.6 F Pulse Rate 75 87 Respiratory Rate 20 20 Blood Pressure 134/93 H 160/97 H Pulse Oximetry 95 76 L 96 09/05/18 20:00 09/06/18 00:00 09/06/18 04:00 Temperature 98 F 97.8 F 97.7 F Pulse Rate 80 91 H 95 H Respiratory Rate 18 18 18 Blood Pressure 141/70 H 151/84 H 141/77 H Pulse Oximetry 95 94 L 92 L 09/06/18 08:00 Temperature 97.9 F Pulse Rate 117 H Respiratory Rate 19 Blood Pressure 157/89 H Pulse Oximetry 94 L Intake & Output 09/05/18 09/06/18 09/06/18 18:59 06:59 18:59 Intake Total 1999 1000 / 1000 Output Total 1999 Balance 1999 -1000 / -1000 Weight 69.7 kg Intake: IV 1999 1000 / 1000 LR 1000 mL Inj 1,000 ML @ 100 1999 1000 / 1000 mls/hr IV.CONT .Q10H [facility] Rx#: [id number] Output: Urine Amount (Stoma) 1999 Nephrostomy Tube Left 1250 / 1250 Nephrostomy Tube Right 650 / 650 Pre-Hospital: Continent 100 / 100 Urostomy Right Other: Date of Last Bowel Movement 09/06/18 # Bowel Movements 2 Narrative: alert and oriented. S1 S2 tachycardic CTA b/L abd soft, nontender, non distended, normal bs, urostomy tube, b/l nephrostomy tubes, blood-tinged fluid noted from the right nephrostomy tube. no edema of exts, bruising of the right upper extremity. Patient moves all 4 exts, sensation intact b/l Results Procedures completed during hospitalization: PRBC transfusion Labs on day of discharge: Labs from last 24 hours 09/06/18 09/06/18 06:19 06:19 WBC 7.4 RBC 3.89 L Hgb 11.6 L Hct 34.0 L MCV 87.5 MCH 29.8 MCHC 34.0 RDW 16.7 Plt Count 300 MPV 7.8 Neut % (Auto) 73.8 H Lymph % (Auto) 11.8 [place] % (Auto) 11.3 H Eos % (Auto) 2.3 Baso % (Auto) 0.8 Neut # (Auto) 5.5 Lymph # (Auto) 0.9 L [place] # (Auto) 0.8 Eos # (Auto) 0.2 Baso # (Auto) 0.1 WBC Differential . Differential Comment Auto diff final Sodium 141 Potassium 2.9 L* Chloride 103 Carbon Dioxide 29.4 Anion Gap 9 BUN 27 H Creatinine 1.66 H Estimated GFR 40 L Random Glucose 92 Calcium 8.2 L Magnesium 1.6 Preliminary micro results at discharge 09/04/18 19:27 Urine Culture - Preliminary Catheterized Urine Immature growth - reincubate - Impressions ITS Impressions Chest X-Ray 08/30/18 07:47 CONCLUSION: Minimal consolidation developing right lower lobe. Abdomen/Pelvis CT 09/01/18 00:00 CONCLUSION: 1. Stable right-sided renal hematoma, perinephric hematoma and retroperitoneal hematoma involving the psoas muscle compared with August 30. 2. Bilateral nephrostomy tubes are stable. Left-sided ureteral stent passing into conduit. Right lower quadrant ostomy. 3. Mild anasarca. No bowel obstruction. No free air. 4. New small left effusion. Stable moderate right effusion. Discharge Plan - Discharge Disposition Patient Disposition: 03 Discharge to SNF - Discharge Condition Condition: Stable - Discharge Order Discharge Orders: Discharge Order (Routine); Ordered 09/06/18 Ordered By: Nadira Reaves - Physicians Team Primary Care Provider: Jaime Pérez Attending Provider: Nadira Reaves Other Providers: Tonny Ng MD
[2018-09-06 14:10] VITALS: BP 132/86; TEMP 97.3; O2SAT 96
[2018-09-06 14:25] VITALS: PULSE 81
== END 2018-09-06 14:00 | DRG 872 ==
LOC: NEPE 07:25 → NEDA 11:02 → N04 17:07
PROVIDERS: ADMIT Hospitalist; ATTEND Hospitalist
CPT/HCPCS: 36430; 71010; 71045; 74176; 76937; 80048; 80053; 81001; 83605; 83735; 84100; 85014; 85018; 85025; 85027; 86850; 86900; 86901; 86923; 87040; 87077; 87086; 87106; 87186; 87324; 87449; 87493; 99285; C9452; J0456; J0692; J0695; J1450; J3475; J7030; J7050; J7120; P9016